=== PATIENT | male | born 1960 | race Caucasian/White ===

== ENCOUNTER 2018-04-09 13:21 | Emergency (ER) | payer SELFPAY ==
[2018-04-09] MEDS ORDERED: MORPHINE 4 MG/ML SYR ONE (14:23)
[2018-04-09] MEDS ORDERED: ONDANSETRON 4 MG/2 ML VIAL ONE (14:29)
--- NOTE | 2018-04-09 14:47 | RAD REPORT ---
EXAM DESCRIPTION: CT - Stone Protocol - 04/09/2018 2:34 pm CLINICAL HISTORY: Flank pain. FLANK PAIN COMPARISON: CTSTONE PROTOCOL dated 05/24/2012 TECHNIQUE: Axial images were obtained without oral or IV contrast. Lack of contrast limits solid org an and vascular assessment. The [id number] spans the entirety of the system partially obscuring uppermost abdomen and lung bases. Coronal reformatted images were obtained and reviewed. All CT scans are performed using dose optimization technique as appropriate and may include automated exposure control or mA/KV adjustment according to patient size. FINDINGS: The lower lung gant are clear. Imaged portions of the liver and spleen show no suspicious findings on non-contrast imaging. The panc reas and adrenal glands are normal. No pathologic lymphadenopathy in the abdomen or pelvis. Gallstone s noted. Several left renal calculi are present, largest measuring 5 mm in the inferior left kidney. No hydron ephrosis. 24 mm low-density lesion mid-pole cortex left kidney nonspecific but probably a cyst. Small Hutch diverticulum is noted at the level of the left UVJ. No bowel obstruction, free air, free fluid or abscess. Normal appendix noted. Moderate L5-S1 spondylosis. IMPRESSION: Left nephrolithiasis without hydronephrosis. Cholelithiasis.
[2018-04-09 14:51] LABS: Absolute Lymphocytes (CBC) 2.1 K/uL (0.7-4.9); Absolute Monocytes 0.9 K/uL (0.1-1.3); Absolute Neutrophil 6.5 K/uL (1.8-8.0); Basophils % 1.2 % (0-1.3); Eosinophils % 1.3 % (0-4.4); Hematocrit 49.4 % (39.6-49.0); Lymphocytes % 21.5 % (15.3-44.8); MCH 27.3 pg (27.0-35.0); MCV 82.6 fL (80-100); MPV 8.7 fL (7.6-11.3); Monocytes % 9.3 % (3.3-12.3); RBC Red Blood Cell Count 5.98 M/uL (4.33-5.43)
[2018-04-09 15:01] LABS: Bicarbonate 24 mEq/L (21-31); Glucose Level 144 mg/dL (65-120); Lipase 29 U/L (22-51); Potassium 3.7 mEq/L (3.6-5.0); Sodium Level 136 mEq/L (135-145)
[2018-04-09 15:03] LABS: Urine Blood TRACE (NEG); Urine Glucose 1+ (NEG); Urine Protein 3+ (NEG); Urine Specific Gravity >1.030 (1.005-1.030); Urine pH 5.5 (5.0-7.0)
[2018-04-09 15:07] LABS: ALT/SGPT 12 IU/L (10-60); AST/SGOT 21 IU/L (10-42); Albumin 4.4 g/dL (3.2-5.5); Alkaline Phosphatase 62 IU/L (42-121); Amylase Level 32 U/L (28-100); BUN Blood Urea Nitrogen 12 mg/dL (6-20); Bilirubin Direct 0.4 mg/dL (0-0.2); Bilirubin Total 2.3 mg/dL (0.3-1.2)
[2018-04-09 15:22] LABS: Urine Bacteria <20 /HPF (NONE SEEN); Urine RBC <5 /HPF (NONE SEEN)
[2018-04-09 15:23] LABS: Urine Culture Reflex Order NOT NEEDED; Urine Mucus 2+ /HPF (NONE SEEN)
[2018-04-09] MEDS ORDERED: NA CHLORIDE 0.9% 1,000 ML ONE (16:14)
--- NOTE | 2018-04-09 16:46 | EDPHYS ---
Physician Documentation [facility] Name: Chicho Weldon Age: 57 yrs Sex: Male : 1960 Arrival Date: 04/09/2018 Time: 13:25 Bed 18 Private MD: None, None ED Physician Hammad Ramires HPI: 04/09 15:00 This 57 yrs old Male presents to ER via Ambulatory with complaints of Right pm1 Flank Pain. 15:00 The patient complains of pain in the right mid back. The pain does not radiate. Onset: pm1 The symptoms/episode began/occurred yesterday, at 17:00. Modifying factors: The symptoms are alleviated by nothing. the symptoms are aggravated by movement. Associated signs and symptoms: Pertinent positives: nausea, Pertinent negatives: diarrhea, dysuria, fever, vomiting, Abdominal pain. Severity of pain: in the emergency department the pain is actually worse. 15:00 The patient has not experienced similar symptoms in the past. The patient has not pm1 recently seen a physician, and does not have an established primary care provider. Historical: - Allergies: 13:44 Iodine; rk2 13:44 SEAFOOD; rk2 - PMHx: 13:44 Hypertension; Myocardial infarction; CABG; Colitis; rk2 - Immunization history:: Pneumococcal vaccine is up to date, Flu vaccine is up to date. - Social history:: Smoking status: Patient/guardian denies using tobacco, never smoked. - Ebola Screening: : Patient negative for fever greater than or equal to 101.5 degrees Fahrenheit, and additional compatible Ebola Virus Disease symptoms. ROS: 15:00 Constitutional: Negative for fever, chills, and weight loss, Eyes: Negative for injury, pm1 pain, redness, and discharge, ENT: Negative for injury, pain, and discharge, Neck: Negative for injury, pain, and swelling, Cardiovascular: Negative for chest pain, palpitations, and edema, Respiratory: Negative for shortness of breath, cough, wheezing, and pleuritic chest pain. 15:00 : Negative for injury, bleeding, discharge, and swelling, MS/Extremity: Negative for pm1 injury and deformity, Skin: Negative for injury, rash, and discoloration, Neuro: Negative for headache, weakness, numbness, tingling, and seizure. 15:00 Abdomen/GI: Positive for nausea, Negative for abdominal pain, vomiting, diarrhea, constipation. 15:00 Back: Positive for flank pain, on the right. Exam: 15:00 Constitutional: This is a well developed, well nourished patient who is awake, alert, pm1 and in no acute distress. Head/Face: Normocephalic, atraumatic. Eyes: Pupils equal round and reactive to light, extra-ocular motions intact. Lids and lashes normal. Conjunctiva and sclera are non-icteric and not injected. Cornea within normal limits. Periorbital areas with no swelling, redness, or edema. ENT: Nares patent. No nasal discharge, no septal abnormalities noted. Tympanic membranes are normal and external auditory canals are clear. Oropharynx with no redness, swelling, or masses, exudates, or evidence of obstruction, uvula midline. Mucous membranes moist. Neck: Trachea midline, no thyromegaly or masses palpated, and no cervical lymphadenopathy. Supple, full range of motion without nuchal rigidity, or vertebral point tenderness. No Meningismus. Chest/axilla: Normal chest wall appearance and motion. Nontender with no deformity. No lesions are appreciated. Cardiovascular: Regular rate and rhythm with a normal S1 and S2. No gallops, murmurs, or rubs. No pulse deficits. Respiratory: Lungs have equal breath sounds bilaterally, clear to auscultation and percussion. No rales, rhonchi or wheezes noted. No increased work of breathing, no retractions or nasal flaring. Abdomen/GI: Soft, non-tender, with normal bowel sounds. No distension or tympany. No guarding or rebound. No evidence of tenderness throughout. 15:00 Skin: Warm, dry with normal turgor. Normal color with no rashes, no lesions, and no evidence of cellulitis. MS/ Extremity: Pulses equal, no cyanosis. Neurovascular intact. Full, normal range of motion. 15:00 Back: ROM is normal, normal spinal alignment noted, CVA tenderness, that is mild, is noted on the right, vertebral tenderness, is not appreciated. 15:00 Neuro: Orientation: is normal, Motor: moves all fours, Sensation: is normal, no obvious gross deficits. Vital Signs: 13:44 BP 187 / 134; Pulse 88; Resp 19; Temp 98.1; Pulse Ox 98% on R/A; Weight 127.01 kg; rk2 15:28 BP 153 / 100; Pulse 78; Resp 16; Pulse Ox 95% on R/A; kr2 16:39 BP 159 / 114; Pulse 73; Resp 17; Pulse Ox 98% on R/A; kr2 17:05 BP 154 / 98; Pulse 75; Resp 16; Pulse Ox 100% on R/A; kr2 MDM: 13:57 Patient medically screened. pm1 15:59 Data reviewed: vital signs. Data interpreted: Pulse oximetry: on room air is 95 %. pm1 Interpretation: normal. Counseling: I had a detailed discussion with the patient and/or guardian regarding: the historical points, exam findings, and any diagnostic results supporting the discharge/admit diagnosis, lab results, radiology results, the need for outpatient follow up, a general surgeon, to return to the emergency department if symptoms worsen or persist or if there are any questions or concerns that arise at home. 16:00 Special discussion: I have referred the patient to see his PCP for further evaluation pm1 of high blood pressure. 16:00 ED course: Patient does not take any medications and does not believe that he needs to pm1 take any medications for his medical history. 16:00 Special discussion: Based on the patient's Hx, exam, and Dx evaluation, there is no pm1 indication for emergent surgery or inpatient Tx. It is understood by the patient/guardian that if the Sx's persist or worsen they need to return immediately for re-evaluation. I discussed with the patient/guardian in detail that at this point there is no indication for admission to the hospital. It is understood, however, that if the symptoms persist or worsen the patient needs to return immediately for re-evaluation. 04/09 14:05 Order name: Amylase, Serum; Complete Time: 15:31 pm04/09 14:05 Order name: Basic Metabolic Panel; Complete Time: 15:31 pm04/09 14:05 Order name: CBC with Diff; Complete Time: 14:54 pm04/09 14:05 Order name: Creatinine for Radiology; Complete Time: 15:03 pm04/09 14:05 Order name: Hepatic Function; Complete Time: 15:31 pm04/09 14:05 Order name: Lipase; Complete Time: 15:31 pm04/09 14:05 Order name: Urine Microscopic Only; Complete Time: 15:31 pm1 04/09 14:05 Order name: IV Saline Lock; Complete Time: 14:33 pm1 04/09 14:05 Order name: Labs collected and sent; Complete Time: 14:33 pm1 04/09 14:05 Order name: CT Stone Protocol; Complete Time: 14:48 pm1 04/09 14:42 Order name: Urine Dipstick--Ancillary (enter results); Complete Time: 15:03 em1 04/09 14:05 Order name: Urine Dipstick-Ancillary (obtain specimen); Complete Time: 14:33 pm1 Administered Medications: 14:33 Drug: morphine 4 mg Route: IVP; Site: left hand; kr2 15:21 Follow up: Response: No adverse reaction; Pain is decreased kr2 14:33 Drug: Zofran 4 mg Route: IVP; Site: left hand; kr2 15:21 Follow up: Response: No adverse reaction kr2 16:19 Drug: NS 0.9% 1000 ml Route: IV; Rate: 1000 ml; Site: left hand; kr2 17:05 Follow up: Response: No adverse reaction; IV Status: Completed infusion kr2 Disposition: 04/10 13:07 Co-signature as Attending Physician, Hammad Ramires MD. Disposition: 04/09/18 16:46 Discharged to Home. Impression: Cholelithiasis. - Condition is Stable. - Discharge Instructions: Cholelithiasis. - Prescriptions for Bentyl 20 mg Oral Tablet - take 1 tablet by ORAL route every 6 hours As needed; 20 tablet. Tylenol- Codeine #3 300-30 mg Oral Tablet - take 2 tablets by ORAL route every 6 hours As needed; 20 tablet. Zofran 4 mg Oral Tablet - take 1 tablet by ORAL route every 12 hours As needed; 20 tablet. - Medication Reconciliation Form, Thank You Letter, Prescription Opioid Use form. - Follow up: Emergency Department; When: As needed; Reason: Worsening of condition. Follow up: Francisco Valles; When: 2 - 3 days; Reason: Recheck today's complaints, Continuance of care, Re-evaluation by your physician. - Problem is new. - Symptoms have improved. Signatures: Dispatcher [employer] EDMS Samuel Oliveira, WEB DEVELOPMENT INSTRUCTOR WEB DEVELOPMENT INSTRUCTOR pm1 Hammad Ramires MD MD Carlie Bustillos RN RN kr2 Tanya Peacock RN RN rk2 Corrections: (The following items were deleted from the chart) 04/09 17:06 16:46 04/09/2018 16:46 Discharged to Home. Impression: Cholelithiasis. Condition is kr2 Stable. Forms are Medication Reconciliation Form, Thank You Letter, Antibiotic Education, Prescription Opioid Use. Follow up: Emergency Department; When: As needed; Reason: Worsening of condition. Follow up: Francisco Valles; When: 2 - 3 days; Reason: Recheck today's complaints, Continuance of care, Re-evaluation by your physician. Problem is new. Symptoms have improved. pm1 19:36 15:00 Severity of pain: in the emergency department the pain pm1 pm1
--- NOTE | 2018-04-09 16:46 | ER ---
Nurse's Notes [facility] Name: Chicho Weldon Age: 57 yrs Sex: Male : 1960 Arrival Date: 04/09/2018 Time: 13:25 Bed 18 Private MD: None, None Diagnosis: Cholelithiasis Presentation: 04/09 13:41 Presenting complaint: Patient states: arrived by pv. c/o right side pain that radiates rk2 into back. Onset yesterday. Mild nausea. No pain or difficulty urinating. Hx of kidney stones; however, pt. states that the pain is different. Transition of care: patient was not received from another setting of care. Onset of symptoms was April 09, 2018. Risk Assessment: Do you want to hurt yourself or someone else? Patient reports no desire to harm self or others. Initial Sepsis Screen: Does the patient meet any 2 criteria? No. Patient's initial sepsis screen is negative. Does the patient have a suspected source of infection? No. Patient's initial sepsis screen is negative. Care prior to arrival: None. 13:41 Method Of Arrival: Ambulatory rk2 13:41 Acuity: AMANDA 3 rk2 Historical: - Allergies: 13:44 Iodine; rk2 13:44 SEAFOOD; rk2 - PMHx: 13:44 Hypertension; Myocardial infarction; CABG; Colitis; rk2 - Immunization history:: Pneumococcal vaccine is up to date, Flu vaccine is up to date. - Social history:: Smoking status: Patient/guardian denies using tobacco, never smoked. - Ebola Screening: : Patient negative for fever greater than or equal to 101.5 degrees Fahrenheit, and additional compatible Ebola Virus Disease symptoms. Screenin:05 Abuse screen: Denies threats or abuse. Denies injuries from another. Nutritional kr2 screening: No deficits noted. Tuberculosis screening: No symptoms or risk factors identified. Fall Risk None identified. Assessment: 14:04 General: Appears in no apparent distress. uncomfortable, well groomed, well developed, kr2 well nourished, Behavior is calm, cooperative, appropriate for age. Pain: Complains of pain in anterior aspect of right lateral abdomen and posterior aspect of right lateral abdomen Pain does not radiate. Pain currently is 8 out of 10 on a pain scale. Quality of pain is described as sharp, stabbing, Is continuous, Alleviated by rest, sitting up Aggravated by increased activity, deep breathing. Neuro: Level of Consciousness is awake, alert, obeys commands, Oriented to person, place, time, situation, Appropriate for age. Cardiovascular: Denies chest pain, Capillary refill < 3 seconds in bilateral fingers Patient's skin is warm and dry. Respiratory: Airway is patent Respiratory effort is even, unlabored, Respiratory pattern is regular, symmetrical. GI: Abdomen is round non-distended, Reports nausea. : Denies burning with urination, discharge, pain. EENT: Oral mucosa is moist. Derm: Skin is intact, is healthy with good turgor, Skin is pink, warm \T\ dry. Musculoskeletal: Circulation, motion, and sensation intact. 15:20 Reassessment: Patient appears in no apparent distress at this time. Patient and/or kr2 family updated on plan of care and expected duration. Pain level reassessed. Patient is alert, oriented x 3, equal unlabored respirations, skin warm/dry/pink. Patient states symptoms have improved. 16:38 Reassessment: Patient appears in no apparent distress at this time. Patient and/or kr2 family updated on plan of care and expected duration. Pain level reassessed. Patient is alert, oriented x 3, equal unlabored respirations, skin warm/dry/pink. Patient states symptoms have improved. 17:05 Reassessment: Patient appears in no apparent distress at this time. Patient and/or kr2 family updated on plan of care and expected duration. Pain level reassessed. Patient is alert, oriented x 3, equal unlabored respirations, skin warm/dry/pink. Patient states symptoms have improved. Vital Signs: 13:44 BP 187 / 134; Pulse 88; Resp 19; Temp 98.1; Pulse Ox 98% on R/A; Weight 127.01 kg; rk2 15:28 BP 153 / 100; Pulse 78; Resp 16; Pulse Ox 95% on R/A; kr2 16:39 BP 159 / 114; Pulse 73; Resp 17; Pulse Ox 98% on R/A; kr2 17:05 BP 154 / 98; Pulse 75; Resp 16; Pulse Ox 100% on R/A; kr2 ED Course: 13:25 Patient arrived in ED. sb2 13:25 None, None is Private Physician. sb2 13:43 Triage completed. rk2 13:56 Samuel Oliveira NP is PHCP. pm1 13:56 Hammad Ramires MD is Attending Physician. pm1 14:04 Carlie Bustillos, RN is Primary Nurse. kr2 14:25 Inserted saline lock: 22 gauge in left hand, using aseptic technique. Blood collected. kr2 14:33 CT completed. Patient moved to CT via wheelchair. Patient moved back from CT. cw1 14:33 CT Stone Protocol In Process Unspecified. EDMS 14:36 Urine collected: clean catch specimen, tea colored. mh5 15:22 Arm band placed on. kr2 15:22 Patient has correct armband on for positive identification. Pulse ox on. NIBP on. kr2 16:46 Francisco Valles MD is Referral Physician. pm1 17:06 No provider procedures requiring assistance completed. IV discontinued, intact, kr2 bleeding controlled, No redness/swelling at site. Pressure dressing applied. Administered Medications: 14:33 Drug: morphine 4 mg Route: IVP; Site: left hand; kr2 15:21 Follow up: Response: No adverse reaction; Pain is decreased kr2 14:33 Drug: Zofran 4 mg Route: IVP; Site: left hand; kr2 15:21 Follow up: Response: No adverse reaction kr2 16:19 Drug: NS 0.9% 1000 ml Route: IV; Rate: 1000 ml; Site: left hand; kr2 17:05 Follow up: Response: No adverse reaction; IV Status: Completed infusion kr2 Outcome: 16:46 Discharge ordered by . pm1 17:06 Discharged to home ambulatory, with friend. kr2 17:06 Condition: good 17:06 Discharge instructions given to patient, Instructed on discharge instructions, follow up and referral plans. medication usage, Demonstrated understanding of instructions, follow-up care, medications, Prescriptions given X 3. 17:06 Patient left the ED. kr2 Signatures: Dispatcher [employer] Leatha Celestin cw1 Samuel Oliveira, DAISY UTILITY MAINTENANCE WORKER pm1 Rossy Guan 5 Carlie Bustillos, RN RN kr2 Tanya Peacock RN RN rk2 Khushi Barros sb2
[2018-04-09 17:16] VITALS: TEMP 98.1
[2018-04-09 17:20] VITALS: BP 154/98; O2SAT 100
== END 2018-04-09 17:06 | disposition home or self-care (01) ==
LOC: ER 13:21
DX: K80.20 Calculus of gallbladder without cholecystitis without obstruction (principal); I10 Essential (primary) hypertension; Z95.1 Presence of aortocoronary bypass graft; Z91.013 Allergy to seafood; Z91.048 Other nonmedicinal substance allergy status
CPT/HCPCS: 36415; 74176; 76377; 80048; 80076; 81003; 81015; 82150; 83690; 85025; 96361; 96374; 96375; 99284; J2405; J7030

== ENCOUNTER 2018-06-30 08:55 | Emergency (ER) | payer SELFPAY ==
[2018-06-30 09:20] LABS: Absolute Lymphocytes (CBC) 1.1 K/uL (0.7-4.9); Absolute Monocytes 0.6 K/uL (0.1-1.3); Absolute Neutrophil 7.1 K/uL (1.8-8.0); Basophils % 0.6 % (0-1.3); Eosinophils % 0.5 % (0-4.4); Hematocrit 49.7 % (39.6-49.0); Lymphocytes % 11.9 % (15.3-44.8); MCH 27.8 pg (27.0-35.0); MCV 84.2 fL (80-100); MPV 8.5 fL (7.6-11.3); Monocytes % 6.3 % (3.3-12.3)
[2018-06-30] MEDS ORDERED: MORPHINE 4 MG/ML SYR ONE ×2 (09:26→10:40)
[2018-06-30] MEDS ORDERED: ONDANSETRON 4 MG/2 ML VIAL ONE ×3 (09:26→13:56)
[2018-06-30 09:29] LABS: Protime INR 1.4
[2018-06-30 09:51] LABS: Albumin 3.9 g/dL (3.4-5.0); Bilirubin Direct 0.5 mg/dL (0-0.2); Bilirubin Total 1.5 mg/dL (0.2-1.0); CKMB Creatine Kinase MB 6.3 ng/mL (0.3-3.6); Magnesium 1.9 mg/dL (1.8-2.4); Protein, Total 8.3 g/dL (6.4-8.2); Troponin (Emerg Dept Use Only) 0.03 ng/mL (0.0-0.045)
--- NOTE | 2018-06-30 10:08 | RAD REPORT ---
EXAM DESCRIPTION: Kar Single View06/30/2018 9:22 am CLINICAL HISTORY: Chest pain COMPARISON: April 2017 FINDINGS: The right base is hazy. Left lung appears clear. The heart is mildly to moderately enlarge d. Postsurgical changes involve the chest. The right base is hazy IMPRESSION: The right base is hazy which may indicate a small pleural effusion or atelectasis
--- NOTE | 2018-06-30 11:01 | RAD REPORT ---
EXAM DESCRIPTION: US - Abdomen Exam Limited - 06/30/2018 10:18 am CLINICAL HISTORY: Epigastric pain COMPARISON: CT study April 09 FINDINGS: Multiple small less than 3 mm gallstones are present layering along the dependent portion of the gallbladder. No large gallstone present. No significant sludge identifiable. There is no wall thickening or pericholecystic fluid. No common duct stone or biliary tree dilatation identified. IMPRESSION: Multi stone cholelithiasis with numerous less than 3 mm gallstones layering along the de pendent wall of the gallbladder. No other gallbladder abnormality. No duct stone or biliary tree dilatation identifiable.
[2018-06-30 11:30] LABS: Urine Blood 1+ (NEG); Urine Glucose 1+ (NEG); Urine Protein 3+ (NEG)
[2018-06-30 11:30] LABS: Urine Bacteria NONE SEEN /HPF (NONE SEEN); Urine Culture Reflex Order NOT NEEDED; Urine RBC NONE SEEN /HPF (NONE SEEN)
[2018-06-30 11:31] LABS: Calcium Oxalate Crystals- Ur PRESENT (NONE SEEN)
--- NOTE | 2018-06-30 11:49 | EKG ---
Test Date: 2018-06-30 Test Time: 09:09:42 Direct Support Staff Member: SISSY MEASUREMENT RESULTS: Intervals: Rate: 95 VA: 204 QRSD: 94 QT: 398 QTc: 500 Mikado: P: 54 VA: 204 QRS: 104 T: 101 INTERPRETIVE STATEMENTS: Normal sinus rhythm Possible Left atrial enlargement Rightward axis Prolonged QT Abnormal ECG Compared to ECG 05/16/2017 06:38:02 Right-axis deviation now present T-wave abnormality no longer present Possible ischemia no longer present Electronically Signed On 06-30-18 11:48:01 CDT by Balwinder Ledesma
[2018-06-30] MEDS ORDERED: HYDROMORPHONE HCL 0.5 MG/0.5 ML INJ ONE ×2 (11:53→13:56)
--- NOTE | 2018-06-30 12:58 | ER ---
Nurse's Notes [facility] Name: Chicho Weldon Age: 58 yrs Sex: Male : 1960 Arrival Date: 06/30/2018 Time: 08:58 Bed 5 Private MD: Diagnosis: Biliary Colic;Other chest pain Presentation: 06/30 09:14 Presenting complaint: Patient states: chest pain/gallbladder issues for the past few ch weeks. Last night the pain got worse, nausea and vomiting, pain is going into the chest now. Transition of care: patient was not received from another setting of care. Onset of symptoms was June 29, 2018 at 19:00. Risk Assessment: Do you want to hurt yourself or someone else? Patient reports no desire to harm self or others. Initial Sepsis Screen: Does the patient meet any 2 criteria? No. Patient's initial sepsis screen is negative. Does the patient have a suspected source of infection? No. Patient's initial sepsis screen is negative. Care prior to arrival: None. 09:14 Method Of Arrival: Ambulatory 09:14 Acuity: AMANDA 3 Triage Assessment: :18 General: Appears in no apparent distress. uncomfortable, Behavior is cooperative, ch appropriate for age. Pain: Complains of pain in chest and abdomen. Historical: - Allergies: :18 Iodine; ch 09:18 SEAFOOD; ch - Home Meds: :18 None [Active]; ch - PMHx: :18 CABG; Colitis; gastric cardiac distress; Hypertension; Myocardial infarction; prostate ch hypertrophy; diabetes- resolved; vasovagal; syncope; pleurasy; kidney stones; - PSHx: :18 triple bypass; Tonsillectomy; bladder polyp removed; ch - Immunization history:: Adult Immunizations up to date. - Social history:: Smoking status: Patient/guardian denies using tobacco. - Ebola Screening: : Patient negative for fever greater than or equal to 101.5 degrees Fahrenheit, and additional compatible Ebola Virus Disease symptoms Patient denies exposure to infectious person Patient denies travel to an Ebola-affected area in the 21 days before illness onset No symptoms or risks identified at this time. Screenin:18 Abuse screen: Denies threats or abuse. Denies injuries from another. Nutritional ch screening: No deficits noted. Tuberculosis screening: No symptoms or risk factors identified. Fall Risk None identified. Assessment: 10:24 Reassessment: Patient appears in no apparent distress at this time. Patient and/or ch family updated on plan of care and expected duration. Pain level reassessed. Patient is alert, oriented x 3, equal unlabored respirations, skin warm/dry/pink. General: Appears in no apparent distress. comfortable, Behavior is calm, cooperative, appropriate for age. Pain: Pain radiates to left supraclavicular area, left clavicle and anterior aspect of left upper chest Pain began suddenly. Neuro: No deficits noted. Cardiovascular: Heart tones S1 S2 present Capillary refill < 3 seconds in bilateral fingers toes Clubbing of nail beds is present Pulses are all present. Edema is 4+ to left midcalf, left ankle, right midcalf and right ankle. 11:30 Reassessment: Patient appears in no apparent distress at this time. Patient and/or ch family updated on plan of care and expected duration. Pain level reassessed. Patient is alert, oriented x 3, equal unlabored respirations, skin warm/dry/pink. pt c/o increase in chest pain, repeat ekg ordered. panfilo notified. pt medicated per orders. 12:15 Reassessment: Patient appears in no apparent distress at this time. No changes from previously documented assessment. Patient and/or family updated on plan of care and expected duration. Pain level reassessed. Patient is alert, oriented x 3, equal unlabored respirations, skin warm/dry/pink. pt c/o increase in pain, medicated per orders. awaiting pt bp to improve. panfilo states he want to get the pain under control and see if that will bring down the pt bp. 13:23 Reassessment: Patient appears in no apparent distress at this time. Patient and/or ch family updated on plan of care and expected duration. Pain level reassessed. Patient is alert, oriented x 3, equal unlabored respirations, skin warm/dry/pink. report given To [facility] kalina Overton verb understanding of waiting transport now. Vital Signs: 09:18 BP 183 / 98; Pulse 106; Resp 20; Temp 98.3; Pulse Ox 99% on R/A; Weight 131.54 kg; Height 5 ft. 9 in. (175.26 cm); Pain 6/10; 10:24 Pulse 88; Resp 26; Pulse Ox 99% on R/A; Pain 6/10; ch 10:27 BP 185 / 126; ch 11:20 BP 193 / 136; Pulse 98; Resp 18; Pulse Ox 94% on R/A; Pain 4/10; ch 12:18 BP 189 / 110; Pulse 106; Pulse Ox 96% on R/A; ch 13:23 BP 193 / 137; Pulse 88; Resp 15; Temp 98.9; Pulse Ox 99% on R/A; Pain 6/10; ch 09:18 Body Mass Index 42.83 (131.54 kg, 175.26 cm) ED Course: 08:58 Patient arrived in ED. as 09:10 Inserted saline lock: 20 gauge in right antecubital area, using aseptic technique. Blood collected. 09:10 No provider procedures requiring assistance completed. Patient maintains SpO2 saturation greater than 95% on room air. 09:13 EKG done, by technical developer. reviewed by Michael Bowie MD. 3 09:14 Nerissa Walter, SAIGE is Primary Nurse. 09:15 Triage completed. 09:16 Panfilo Cole PA is PHCP. [facility] 09:16 Michael Bowie MD is Attending Physician. [facility] 09:18 Arm band placed on left wrist. Patient placed in an exam room, on a stretcher, on combiner, on pulse oximetry. 09:20 XRAY Chest (1 view) In Process Unspecified. EDMS 09:32 Patient has correct armband on for positive identification. Placed in gown. Bed in low position. Call light in reach. Side rails up X2. check totaler on. Pulse ox on. NIBP on. 09:55 Patient taken to ultrasound. via wheelchair. aa4 10:17 Ultrasound completed. Patient moved back from ultrasound. aa4 10:18 US Abdomen Limited In Process Unspecified. EDMS 11:11 Urine collected: clean catch specimen, cloudy, khris colored. jb1 11:38 EKG done, by technical developer. reviewed by Panfilo CONWAY. sm3 12:18 No apparent distress. Resting quietly. Administered Medications: 09:20 Drug: morphine 4 mg Route: IVP; Site: right antecubital; 10:26 Follow up: Response: No adverse reaction; Marked relief of symptoms ch 09:20 Drug: Zofran 4 mg Route: IVP; Site: right antecubital; ch 10:25 Follow up: Response: No adverse reaction; Marked relief of symptoms ch 11:05 Drug: morphine 4 mg Route: IVP; Site: right antecubital; ch 12:19 Follow up: Response: No adverse reaction; No change in condition ch 11:06 Drug: Zofran 4 mg Route: IVP; Site: right antecubital; ch 12:20 Follow up: Response: No adverse reaction; Marked relief of symptoms ch 11:48 Drug: Dilaudid 0.5 mg Route: IVP; Site: right antecubital; ch 12:21 Follow up: Response: No adverse reaction ch 13:58 Drug: Zofran 4 mg Route: IVP; Site: right antecubital; ch 13:58 Drug: Dilaudid 0.5 mg Route: IVP; Site: right antecubital; Outcome: 12:58 ER care complete, transfer ordered by MD. dove 13:58 Patient left the ED. ch Signatures: Dispatcher [employer] Keith Irizarry jb1 Nerissa Walter, SAIGE RN Panfilo Zaragoza PA PA jmm Martinez, Amelia as Frazier, Amanda aa4 Galina Evans3
--- NOTE | 2018-06-30 12:58 | EDPHYS ---
Physician Documentation [facility] Name: Chicho Weldon Age: 58 yrs Sex: Male : 1960 Arrival Date: 06/30/2018 Time: 08:58 Bed 5 Private MD: ED Physician Michael Bowie HPI: 06/30 09:30 This 58 yrs old Male presents to ER via Ambulatory with complaints of Chest jmm Pain, Nausea/Vomiting. 09:30 The patient presents with abdominal pain in the epigastric area. Onset: The jmm symptoms/episode began/occurred gradually, 2 day(s) ago. The symptoms radiate to chest. Associated signs and symptoms: Pertinent positives: chest pain. This is a 58 year old male with a history of CAD that presents to the ED with 2 days of episgastric pain. patient states he awoke at 0200 today with left sided chest pain which he states was similar to pain with previous ME. Patient also complains of multiple episodes of vomiting. Denies fever, . Historical: - Allergies: :18 Iodine; ch 09:18 SEAFOOD; ch - Home Meds: :18 None [Active]; ch - PMHx: :18 CABG; Colitis; gastric cardiac distress; Hypertension; Myocardial infarction; prostate ch hypertrophy; diabetes- resolved; vasovagal; syncope; pleurasy; kidney stones; - PSHx: 09:18 triple bypass; Tonsillectomy; bladder polyp removed; ch - Immunization history:: Adult Immunizations up to date. - Social history:: Smoking status: Patient/guardian denies using tobacco. - Ebola Screening: : Patient negative for fever greater than or equal to 101.5 degrees Fahrenheit, and additional compatible Ebola Virus Disease symptoms Patient denies exposure to infectious person Patient denies travel to an Ebola-affected area in the 21 days before illness onset No symptoms or risks identified at this time. ROS: 09:30 Constitutional: Negative for fever, chills, and weight loss. jmm 09:30 Back: Negative for injury and pain, MS/Extremity: Negative for injury and deformity, Skin: Negative for injury, rash, and discoloration, Neuro: Negative for headache, weakness, numbness, tingling, and seizure. 09:30 Cardiovascular: Positive for chest pain. 09:30 Abdomen/GI: Positive for abdominal pain, nausea and vomiting. 09:30 All other systems are negative. Exam: 09:30 Head/Face: atraumatic. Neck: Trachea midline, Supple Chest/axilla: Normal chest wall [facility] appearance and motion. 09:30 Constitutional: The patient appears alert, awake, uncomfortable. 09:30 Cardiovascular: Rate: normal, Rhythm: regular, Pulses: no pulse deficits are appreciated. 09:30 Respiratory: the patient does not display signs of respiratory distress, Respirations: normal, Breath sounds: are clear throughout. 09:30 Abdomen/GI: Inspection: abdomen appears normal, Bowel sounds: normal, Palpation: soft, moderate abdominal tenderness, in the right upper quadrant. 09:30 Back: ROM is normal, CVA tenderness, is absent. 09:30 Musculoskeletal/extremity: ROM: intact in all extremities. 09:30 Skin: Appearance: Color: normal in color. 09:30 Neuro: Orientation: is normal, Mentation: is normal, Memory: is normal. 09:30 Psych: Behavior/mood is pleasant, cooperative. Vital Signs: 09:18 BP 183 / 98; Pulse 106; Resp 20; Temp 98.3; Pulse Ox 99% on R/A; Weight 131.54 kg; ch Height 5 ft. 9 in. (175.26 cm); Pain 6/10; 10:24 Pulse 88; Resp 26; Pulse Ox 99% on R/A; Pain 6/10; ch 10:27 BP 185 / 126; ch 11:20 BP 193 / 136; Pulse 98; Resp 18; Pulse Ox 94% on R/A; Pain 4/10; ch 12:18 BP 189 / 110; Pulse 106; Pulse Ox 96% on R/A; ch 13:23 BP 193 / 137; Pulse 88; Resp 15; Temp 98.9; Pulse Ox 99% on R/A; Pain 6/10; ch 09:18 Body Mass Index 42.83 (131.54 kg, 175.26 cm) MDM: 09:27 Patient medically screened. [facility] 12:54 Data reviewed: vital signs, nurses notes, lab test result(s), radiologic studies, CT [facility] scan. Counseling: I had a detailed discussion with the patient and/or guardian regarding: the historical points, exam findings, and any diagnostic results supporting the discharge/admit diagnosis, lab results, radiology results, the need to transfer to another facility. Response to treatment: the patient's symptoms have mildly improved after treatment. ED course: I discussed the patient with [facility] whom accepted admission. . 06/30 09:04 Order name: Basic Metabolic Panel; Complete Time: 10:13 06/30 09:04 Order name: CBC with Diff; Complete Time: 10:13 06/30 09:04 Order name: Ckmb; Complete Time: 10: 06/30 09:04 Order name: CPK; Complete Time: 10: 06/30 09:04 Order name: LFT's; Complete Time: 10: 06/30 09:04 Order name: Magnesium; Complete Time: 10: 06/30 09:04 Order name: NT PRO-BNP; Complete Time: 10: 06/30 09:04 Order name: PT-INR; Complete Time: 10: 06/30 09:04 Order name: Ptt, Activated; Complete Time: 10: 06/30 09:04 Order name: Troponin (emerg Dept Use Only); Complete Time: 10: 06/30 09:04 Order name: XRAY Chest (1 view); Complete Time: 10: 06/30 09:51 Order name: Lipase; Complete Time: 10:20 [facility] 06/30 11:01 Order name: Urine Microscopic Only; Complete Time: 11:35 [facility] 06/30 11:05 Order name: Urine Dipstick--Ancillary (enter results); Complete Time: 11:35 06/30 09:04 Order name: EKG; Complete Time: 09:05 06/30 09:04 Order name: Cardiac monitoring; Complete Time: 09:56 06/30 09:04 Order name: EKG - Nurse/Tech; Complete Time: 09:56 06/30 09:04 Order name: IV Saline Lock; Complete Time: 09:56 06/30 09:04 Order name: Labs collected and sent; Complete Time: 09:56 06/30 09:04 Order name: O2 Per Protocol; Complete Time: 09:56 06/30 09:04 Order name: O2 Sat Monitoring; Complete Time: 09:56 06/30 09:04 Order name: Urine Dipstick-Ancillary (obtain specimen); Complete Time: 11:11 iw 06/30 09:51 Order name: US Abdomen Limited; Complete Time: 11:02 petty Administered Medications: 09:20 Drug: morphine 4 mg Route: IVP; Site: right antecubital; ch 10:26 Follow up: Response: No adverse reaction; Marked relief of symptoms ch 09:20 Drug: Zofran 4 mg Route: IVP; Site: right antecubital; ch 10:25 Follow up: Response: No adverse reaction; Marked relief of symptoms ch 11:05 Drug: morphine 4 mg Route: IVP; Site: right antecubital; ch 12:19 Follow up: Response: No adverse reaction; No change in condition ch 11:06 Drug: Zofran 4 mg Route: IVP; Site: right antecubital; ch 12:20 Follow up: Response: No adverse reaction; Marked relief of symptoms ch 11:48 Drug: Dilaudid 0.5 mg Route: IVP; Site: right antecubital; ch 12:21 Follow up: Response: No adverse reaction ch 13:58 Drug: Zofran 4 mg Route: IVP; Site: right antecubital; ch 13:58 Drug: Dilaudid 0.5 mg Route: IVP; Site: right antecubital; ch Disposition: 06/30/18 12:58 Transfer ordered to [facility]. Diagnosis are Biliary Colic, Other chest pain. - Reason for transfer: Higher level of care. - Accepting physician is [facility]. - Condition is Stable. - Problem is new. - Symptoms are unchanged. Signatures: Dispatcher [employer] Nerissa Mullins RN RN Nestor Zaragoza PA PA jmm Williams, Irene, RN RN Corrections: (The following items were deleted from the chart) 13:58 12:58 06/30/2018 12:58 Transfer ordered to [facility]. Diagnosis is Biliary Colic; Other chest pain. Reason for transfer: Higher level of care. Accepting physician is [facility]. Condition is Stable. Problem is new. Symptoms are unchanged. petty
[2018-06-30 14:17] VITALS: BP 193/137; TEMP 98.9; O2SAT 99
--- NOTE | 2018-07-01 09:50 | EKG ---
Test Date: 2018-06-30 Test Time: 11:33:34 Sand Cutter Operator: MARIA TERESA MEASUREMENT RESULTS: Intervals: Rate: 83 NM: 200 QRSD: 98 QT: 430 QTc: 505 [place]: P: 68 NM: 200 QRS: 117 T: 122 INTERPRETIVE STATEMENTS: Normal sinus rhythm Right axis deviation Prolonged QT Abnormal ECG Compared to ECG 06/30/2018 09:09:42 No significant changes Electronically Signed On 07-01-18 02:14:47 CDT by Balwinder Ledesma
== END 2018-06-30 13:58 | disposition short-term general hospital (02) ==
LOC: ER 08:55
DX: K80.50 Calculus of bile duct without cholangitis or cholecystitis without obstruction (principal); I10 Essential (primary) hypertension; I25.2 Old myocardial infarction; Z95.1 Presence of aortocoronary bypass graft; Z91.013 Allergy to seafood; Z91.048 Other nonmedicinal substance allergy status
CPT/HCPCS: 36415; 71045; 76705; 80048; 80076; 81003; 81015; 82550; 82553; 83690; 83735; 83880; 84484; 85025; 85610; 85730; 93005; 96374; 96375; 99285; J1170; J2405

== ENCOUNTER 2018-08-12 13:56 | Inpatient (IN) | payer SELFPAY ==
--- OUTSIDE RECORDS SUMMARY | 2018-08-12 13:59 | XMS REPORT | Clinical Summary ---
:1960 Author Organization [facility] Address [address] [place] [address] Phone Care Team Providers Name Role Phone Unavailable Primary Care Provider Unavailable Allergies Active Allergy Reactions Severity Noted Date Comments Shellfish Containing Products Anaphylaxis High 06/30/2018 Current Medications Prescription Sig. Disp. Refills Start Date End Date Status atorvastatin Take 1 tablet 30 tablet 2 07/24/2018 Active (LIPITOR) 40 MG (40 mg total) 9 tablet by mouth nightly. losartan (COZAAR) 25 Take 0.5 15 tablet 2 07/25/2018 Active MG tablet tablets (12.5 9 mg total) by mouth daily. metoprolol Take 1 tablet 60 tablet 2 07/24/2018 Active (LOPRESSOR) 25 MG (25 mg total) 9 tablet by mouth 2 (two) times daily. bumetanide (BUMEX) 1 Take 1 tablet 60 tablet 1 07/24/2018 Active MG tablet (1 mg total) 9 by mouth 2 (two) times daily. spironolactone Take 1 tablet 30 tablet 2 07/25/2018 Active (ALDACTONE) 50 MG (50 mg total) 9 tablet by mouth daily. esomeprazole Take 1 30 capsule 2 07/24/2018 Active (NEXIUM) 40 MG capsule (40 9 capsule mg total) by mouth 2 (two) times daily. pantoprazole Take 1 tablet 60 tablet 1 07/24/2018 Discontinued (PROTONIX) 40 MG (40 mg total) 8 tablet by mouth 2 (two) times daily. Active Problems Problem Noted Date Cardiogenic shock (HCC) 07/10/2018 Pancreatitis 07/08/2018 Acute blood loss anemia 07/07/2018 Hemorrhagic shock (HCC) 07/07/2018 Chest pain, unspecified type 07/06/2018 Accelerated hypertension 07/06/2018 Morbid obesity (HCC) 07/06/2018 Hyponatremia 07/06/2018 GI bleed requiring more than 4 units of blood in 24 hours, ICU, or surgery Hypokalemia 07/04/2018 Hypomagnesemia 07/04/2018 Prolonged QT syndrome 07/03/2018 Acute on chronic combined systolic and diastolic congestive heart failure 07/2018 (HCC) Cholelithiasis 07/03/2018 DEION (acute kidney injury) (HCC) 07/03/2018 CKD (chronic kidney disease) stage 2, GFR 60-89 ml/min 07/03/2018 S/P CABG x 3 06/30/2018 Diabetes mellitus type 2 in obese (HCC) 06/30/2018 Uncontrolled hypertension 06/30/2018 Chest pain 06/30/2018 Encounters Date Type Specialty Care Team Description 07/21/2018 Anesthesia Event Gastroenterology Melissa Ashford, GERRY 07/21/2018 Procedure Pass Gastroenterology 07/21/2018 Surgery Gastroenterology Vikram Santacruz MD ENDOSCOPY,SCLEROT HERAPY 07/17/2018 Anesthesia Event Gastroenterology Vicky Selby MD 07/17/2018 Procedure Pass Gastroenterology 07/17/2018 Surgery Gastroenterology Vikram Santacruz BALLOON Ahmad, MD SWEEPING 07/15/2018 Anesthesia Event Gastroenterology Willian Richard MD 07/15/2018 Procedure Pass Gastroenterology 07/15/2018 Surgery Gastroenterology Sammy Santiago UPPER ENDOSCOPY [facility] 07/10/2018 Anesthesia Event Gastroenterology Rehana Walker MD 07/10/2018 Procedure Pass Gastroenterology 07/10/2018 Surgery Gastroenterology Michael Howard MD ENDOSCOPY,SCLEROT HERAPY 07/09/2018 Anesthesia Event Gastroenterology Shelly Malave 07/09/2018 Procedure Pass Gastroenterology 07/09/2018 Surgery Gastroenterology Michael Howard MD 07/08/2018 Procedure Pass Gastroenterology 07/08/2018 Surgery Gastroenterology Michael Howard ENDOSCOPY MD Chirag 07/07/2018 Anesthesia Event Gastroenterology Hilario Chi CRNA 07/07/2018 Procedure Pass Gastroenterology 07/07/2018 Surgery Gastroenterology Susanne Nolan ERCP,BILIARY An Watts MD STENT 07/07/2018 Procedure Pass 07/06/2018 Anesthesia Event Gastroenterology Antonio Lima MD 07/06/2018 Procedure Pass Gastroenterology 07/06/2018 Surgery Gastroenterology Susanne Nolan ERCP,PAPILLOTOMY An Watts MD 06/30/2018 Hospital Cardiology Clarke Case Chest pain, - Encounter GLashonda, MD unspecified type 07/24/2018 Chelsea Moreno, (Primary MD Dx);Diabetes Daphne, Leonid mellitus type 2 MD Marlon in obese Karen Hussein ([facility]);S/P CABG x MD Binu 3;Uncontrolled Praveen, hypertension;Acut Nikoser e heart failure, MD Aram unspecified heart Katie, Jen failure type PLashonda, ([facility]);DEION (acute Tirukkovalluri, kidney injury) MD Maryjane ([facility]);Acute on Janiya, chronic combined Jeffery García MD systolic and Jeff You diastolic MD congestive heart failure ([facility]);Biliary calculus of other site without obstruction;GI bleed requiring more than 4 units of blood in 24 hours, ICU, or surgery;Other shock ([facility]) 06/30/2018 Orders Only General Internal Medicine after 08/11/2017 Social History Tobacco Use Types Packs/Day Years Used Date Former Smoker Cigars, Pipe Quit: 06/30/1995 Smokeless Tobacco: Never Used Alcohol Use Drinks/Week oz/Week Comments Yes 2 Glasses of wine 1.2 per month Sex Assigned at Date Recorded Not on file Last Filed Vital Signs Vital Sign Reading Time Taken Blood Pressure 113/60 07/24/2018 3:31 PM CDT Pulse 76 07/24/2018 3:31 PM CDT Temperature 36.8 C (98.2 F) 07/24/2018 3:31 PM CDT Respiratory Rate 18 07/24/2018 3:31 PM CDT Oxygen Saturation 100% 07/24/2018 3:31 PM CDT Inhaled Oxygen Concentration - - Weight 91.9 kg (202 lb 9.6 oz) 07/24/2018 4:47 AM CDT Height 167.6 cm (5' 6") 07/15/2018 3:38 AM CDT Body Mass Index 32.7 07/24/2018 4:47 AM CDT Plan of Treatment Not on file Implants Implanted Type Area Fraternity Adviser Device Expiration Date Model / Identifier Serial / Lot Stent Bili Advanix [id number] - [id number] Stents-Pe [place] 03/27/2020 3469 / Implanted: Qty: 1 on 07/06/2018 by Susanne Nolan MD ripheral SCI:PERIPHERAL / INTERV Stent Bili Duodenal [id number] - [id number] Stents-Pe [place] SCI:ENDO 12/19/2019 3432 / Implanted: Qty: 1 on 07/06/2018 by Susanne Nolan MD ripheral / Explanted Type Area Fraternity Adviser Device Expiration Date Model / Identifier Serial / Lot Wallflex Biliary Fully Covered Stent [id number] opentabs 2018 7034 / Implanted: Qty: 1 on 07/07/2018 by Susanne Nolan MD [id number] / Explanted: Qty: 1 on 07/17/2018 [id number] Procedures Procedure Name Priority Date/Time Associated Diagnosis Comments UPPER 07/21/2018 3:00 PM CDT Melena ENDOSCOPY,SCLEROTHERAPY Special Needs egd w/ anes ERCP,STENT REMOVAL 07/17/2018 2:00 PM CDT Gastrointestinal hemorrhage, unspecified gastrointestinal hemorrhage type Special Needs FRONT AND SIDE VIEWING SCOPE PROCEDURE W/ C-ARM 07/17/2018 2:00 PM CDT Gastrointestinal hemorrhage, unspecified gastrointestinal hemorrhage type Special Needs FRONT AND SIDE VIEWING SCOPE ERCP,BALLOON SWEEPING 07/17/2018 2:00 PM CDT Gastrointestinal hemorrhage, unspecified gastrointestinal hemorrhage type Special Needs FRONT AND SIDE VIEWING SCOPE UPPER ENDOSCOPY 07/15/2018 4:30 AM CDT Gastrointestinal hemorrhage, unspecified gastrointestinal hemorrhage type UPPER 07/10/2018 7:00 PM CDT Gastrointestinal hemorrhage, ENDOSCOPY,SCLEROTHERAPY unspecified gastrointestinal hemorrhage type Special Needs EGD W/ ANES UPPER ENDOSCOPY,SCLEROTHERAPY 07/09/2018 11:00 AM CDT Gastrointestinal hemorrhage, unspecified gastrointestinal hemorrhage type UPPER ENDOSCOPY 07/09/2018 11:00 AM CDT Gastrointestinal hemorrhage, unspecified gastrointestinal hemorrhage type UPPER ENDOSCOPY 07/08/2018 11:00 PM CDT Gastrointestinal hemorrhage, unspecified gastrointestinal hemorrhage type UPPER ENDOSCOPY 07/07/2018 6:30 AM CDT Common bile duct (CBD) obstruction PROCEDURE W/ C-ARM 07/07/2018 6:30 AM CDT Common bile duct (CBD) obstruction ERCP,BILIARY STENT 07/07/2018 6:30 AM CDT Common bile duct (CBD) obstruction ERCP,BILIARY STENT 07/06/2018 4:00 PM CDT Common bile duct (CBD) obstruction PROCEDURE W/ C-ARM 07/06/2018 4:00 PM CDT Common bile duct (CBD) obstruction ERCP,PAPILLOTOMY 07/06/2018 4:00 PM CDT Common bile duct (CBD) obstruction after 08/11/2017 Results EKG-SCANNED (07/26/2018 9:00 AM)RHYTHM STRIP - SCAN (07/26/2018 9:00 AM) TRANSFUSION SERVICE REPORT - SCAN (07/24/2018 6:00 PM)Only the most recent of11 resultswithin the time period is included.Hemoglobin and hematocrit (2017 1:20 PM)Only the most recent of67 resultswithin the time period is included. Component Value Ref Range Hemoglobin 9.4 (L) 13.7 - 17.5 GM/DL Hematocrit 29.2 (L) 40.1 - 51.0 % Specimen Performing Laboratory Blood [address] [address] POC-Glucose meter (07/24/2018 12:48 PM)Only the most recent of73 resultswithin the time period is included. Component Value Ref Range POC-Glucose Meter 188 (H)Comment: TESTED AT [address] 70 - 110 mg/[place] [address] Specimen Performing Laboratory Blood [address] [address] Basic Metabolic Panel (07/24/2018 9:23 AM)Only the most recent of40 resultswithin the time period is included. Component Value Ref Range Sodium 136 136 - 145 meq/L Potassium 3.8 3.5 - 5.1 meq/L Chloride 98 98 - 107 meq/L CO2 30 (H) 22 - 29 meq/L BUN 18 7 - 21 mg/dL Creatinine 1.79 (H) 0.57 - 1.25 mg/dL Glucose 125 (H) 70 - 105 mg/dL Calcium 9.1 8.4 - 10.2 mg/dL EGFR 39Comment: ESTIMATED GFR IS NOT ACCURATE mL/min/1.73 sq m CREATININE CLEARANCE IN PREDICTING GLOMERULAR FILTRATION RATE. ESTIMATED GFR IS NOT APPLICABLE FOR DIALYSIS PATIENTS. Specimen Performing Laboratory Blood - Arm, [address] [address] Narrative Specimen slightly icteric CBC with platelet count + automated diff (07/24/2018 4:46 AM)Only the most recent of21 resultswithin the time period is included. Component Value Ref Range WBC 10.5 3.5 - 10.5 K/L RBC 2.79 (L) 4.63 - 6.08 M/L Hemoglobin 8.4 (L) 13.7 - 17.5 GM/DL Hematocrit 26.1 (L) 40.1 - 51.0 % MCV 93.5 (H) 79.0 - 92.2 fL MCH 30.1 25.7 - 32.2 pg MCHC 32.2 (L) 32.3 - 36.5 GM/DL RDW 16.0 (H) 11.6 - 14.4 % Platelets 257 150 - 450 K/CU MM MPV 9.7 9.4 - 12.4 fL nRBC 0 0 - 0 /100 WBC % Neutros 67 % % Lymphs 12 % % Monos 14 % % Eos 6 % % Baso 1 % # Neutros 7.10 (H) 1.78 - 5.38 K/L # Lymphs 1.29 (L) 1.32 - 3.57 K/L # Monos 1.42 (H) 0.30 - 0.82 K/L # Eos 0.61 (H) 0.04 - 0.54 K/L # Baso 0.05 0.01 - 0.08 K/L Immature Granulocytes-Relative 1 0 - 1 % Specimen Performing Laboratory Blood - Arm, [address] [address] Prothrombin time/INR (07/24/2018 4:46 AM)Only the most recent of31 resultswithin the time period is included. Component Value Ref Range Protime 15.8 (H) 11.7 - 14.7 seconds INR 1.3 <=5.9 Specimen Performing Laboratory Blood - Arm, [address] [address] Narrative RECOMMENDED COUMADIN/WARFARIN INR THERAPY RANGES STANDARD DOSE: 2.0 - 3.0 Includes: PROPHYLAXIS for venous thrombosis, systemic embolization; TREATMENT for venous thrombosis and/or pulmonary embolus. HIGH RISK: Target INR is 2.5-3.5 for patients with mechanical heart valves. CBC with platelet count + automated diff (07/24/2018 4:46 AM)Only the most recent of21 resultswithin the time period is included. Specimen Performing Laboratory Blood Narrative The following orders were created for panel order CBC with platelet count + automated diff. Procedure Abnormality Status --------- ------ CBC with platelet count ...[[id number]]AbnormalFinal result Please view results for these tests on the individual orders. Magnesium (07/24/2018 4:46 AM)Only the most recent of44 resultswithin the time period is included. Component Value Ref Range Magnesium 1.5 (L) 1.6 - 2.6 mg/dL Specimen Performing Laboratory Blood - Arm, [address] [address] Hepatic function panel (07/24/2018 4:46 AM)Only the most recent of25 resultswithin the time period is included. Component Value Ref Range Protein, Total 5.7 (L) 6.0 - 8.3 gm/dL Albumin 3.0 (L) 3.5 - 5.0 g/dL Total Bilirubin 1.7 (H) 0.2 - 1.2 mg/dL Bilirubin, Direct 1.1 (H) 0.1 - 0.5 mg/dL Alkaline Phosphatase 122 40 - 150 U/L AST 29 5 - 34 U/L ALT 23 6 - 55 U/L Specimen Performing Laboratory Blood - Arm, [address] [address] Prepare Leuko-Red RBC (07/23/2018 11:54 PM)Only the most recent of5 resultswithin the time period is included. Component Value Ref Range CROSSMATCH COMPATIBLE Unit ABO O Neg UNIT NUMBER [id number] Status TRANSFUSED Blood Bank Product RED BLOOD CELLS PRODUCT CODE [id number] Specimen Performing Laboratory Other [employer] Manual Differential (07/23/2018 6:11 AM) Component Value Ref Range % Neutros (manual) 85 % % Lymphs (manual) 9 % % Monos (manual) 5 % % Eos (manual) 1 % % Baso (manual) 0 % # Neutros (manual) 11.14 (H) 1.80 - 8.00 K/L # Lymphs (manual) 1.18 (L) 1.48 - 4.50 K/L # Monos (manual) 0.66 0.00 - 1.30 K/L # Eos (manual) 0.13 0.00 - 0.50 K/L # Baso (manual) 0.00 0.00 - 0.20 K/L Total Counted 100 WBC Morphology Normal Platelet Morphology Normal Anisocytosis 1+ few Microcytes 1+ few Specimen Performing Laboratory Blood [address] [address] Calcium, Ionized (07/23/2018 6:11 AM)Only the most recent of34 resultswithin the time period is included. Component Value Ref Range Calcium, Ion 1.08 (L) 1.12 - 1.27 mmol/L pH, Blood 7.52 Specimen Performing Laboratory Blood [address] [address] Transfuse Leuko-Red RBC (07/22/2018 5:17 AM)Only the most recent of23 resultswithin the time period is included.PT/aPTT (07/22/2018 3:36 AM)Only the most recent of8 resultswithin the time period is included. Component Value Ref Range Protime 15.0 (H) 11.7 - 14.7 seconds INR 1.2 <=5.9 PTT 31.7 22.5 - 36.0 seconds Specimen Performing Laboratory Blood - Arm, Left [address] [address] Narrative RECOMMENDED COUMADIN/WARFARIN INR THERAPY RANGES STANDARD DOSE: 2.0 - 3.0 Includes: PROPHYLAXIS for venous thrombosis, systemic embolization; TREATMENT for venous thrombosis and/or pulmonary embolus. HIGH RISK: Target INR is 2.5-3.5 for patients with mechanical heart valves. Fibrinogen (07/22/2018 3:36 AM)Only the most recent of8 resultswithin the time period is included. Component Value Ref Range Fibrinogen 426 225 - 434 mg/dl Specimen Performing Laboratory Blood - Arm, [address] [address] D-dimer (07/22/2018 3:36 AM)Only the most recent of8 resultswithin the time period is included. Component Value Ref Range D-Dimer, Quant 2.14 (H) <0.50 MG/L FEU Specimen Performing Laboratory Blood - Arm, [address] [address] Narrative Intended Use: The D-Dimer Assay can be used to aid in the diagnosis of Deep Vein Thrombosis (DVT) and Pulmonary Embolism Disease (PED). In patients with low pre-test probability, various studies concerning STA Liatest D-dimer test have reported that with a cutoff value of 0.50 MG/L FEU, the Negative Predictive Value (NPV) regarding the exclusion of thrombosis is within 95-100% range. Platelet count (07/22/2018 3:36 AM)Only the most recent of6 resultswithin the time period is included. Component Value Ref Range Platelets 293 150 - 450 K/CU MM Specimen Performing Laboratory Blood - Arm, [address] [address] REPORT OF PROCEDURE - ENDOSCOPY URL (07/21/2018 4:03 PM)Only the most recent of8 resultswithin the time period is included.Type and screen, automated (2017 12:40 PM)Only the most recent of4 resultswithin the time period is included. Component Value Ref Range Ab Scrn NEGATIVE Specimen Performing Laboratory Blood - Arm, [address] [address] ABORH, manual (07/21/2018 12:40 PM)Only the most recent of2 resultswithin the time period is included. Component Value Ref Range ABO Grouping O Rh Factor NEGComment: echo resulted RH+, historical blood type O Rh Negative. Patient was switched to RH+ blood due to low inventory of RH=. Specimen Performing Laboratory Blood - Arm, [address] [address] ECG 12 lead (07/20/2018 5:35 PM)Only the most recent of3 resultswithin the time period is included. Specimen Performing Laboratory GE MUSE Narrative Ventricular Rate 73 BPM Atrial Rate 73 BPM P-R Interval 184 ms QRS Duration 88 ms Q-T Interval 402 ms QTC Calculation(Bazett) 442 ms P [place] -12 degrees R [place] 2 degrees T [place] 103 degrees Normal sinus rhythm Possible Inferior infarct (cited on or before 07-JUL-2018) T wave abnormality, consider lateral ischemia Abnormal ECG When compared with ECG of 07-JUL-2018 15:29, Significant changes have occurred Confirmed by MD DE LA ROSA RUPA ([id number]) on 07/21/2018 12:59:02 PM Procedure Note Interface, External Ris In - 07/21/2018 12:59 PM CDT Ventricular Rate 73 BPM Atrial Rate 73 BPM P-R Interval 184 ms QRS Duration 88 ms Q-T Interval 402 ms QTC Calculation(Bazett) 442 ms P [place] -12 degrees R [place] 2 degrees T [place] 103 degrees Normal sinus rhythm Possible Inferior infarct (cited on or before 07-JUL-2018) T wave abnormality, consider lateral ischemia Abnormal ECG When compared with ECG of 07-JUL-2018 15:29, Significant changes have occurred Confirmed by MD DE LA ROSA RUPA ([id number]) on 07/21/2018 12:59:02 PM XR chest 1 view portable / bedside (07/18/2018 9:05 AM)Only the most recent of9 resultswithin the time period is included. Specimen Performing Laboratory GE RIS Narrative FINAL REPORT CLINICAL HISTORY: HF TECHNIQUE: 1 view of the chest. COMPARISON: 07/15/2018 IMPRESSION: The ETT has been removed. The right-sided dialysis catheter remains in the SVC. Pulmonary vascular congestion appears increased with increased bilateral airspace opacities. There is a new small left pleural effusion. The cardiomediastinal silhouette is magnified by technique with sternotomy wires. Signed: Gina Spears MD Report Verified Date/Time:07/18/2018 10:38:16 Reading Location: [facility] Radiology Reading Room Procedure Note Interface, External Ris In - 07/18/2018 10:40 AM CDT FINAL REPORT CLINICAL HISTORY: HF TECHNIQUE: 1 view of the chest. COMPARISON: 07/15/2018 IMPRESSION: The ETT has been removed. The right-sided dialysis catheter remains in the SVC. Pulmonary vascular congestion appears increased with increased bilateral airspace opacities. There is a new small left pleural effusion. The cardiomediastinal silhouette is magnified by technique with sternotomy wires. Signed: Gina Spears MD Report Verified Date/Time: 07/18/2018 10:38:16 Reading Location: [facility] Radiology Reading Room Potassium (07/17/2018 5:51 PM)Only the most recent of34 resultswithin the time period is included. Component Value Ref Range Potassium 4.3Comment: Specimen slightly hemolyzed 3.5 - 5.1 meq/L Specimen Performing Laboratory Blood [facility] [address] ERCP (07/17/2018 2:50 PM)Only the most recent of3 resultswithin the time period is included. Specimen Performing Laboratory GE RIS Narrative FINAL REPORT ERCP 1 view 07/17/2018 6:06 PM CLINICAL HISTORY: Instrument localization COMPARISON: None available IMPRESSION: Please correlate imaging report findings with the procedure note prepared by Dr. Santacruz, as an intra-procedure imaging consultation was not requested. Reported fluoroscopy time: 233.8 seconds. Signed: Farhad Meza MD Report Verified Date/Time:07/17/2018 18:08:25 Reading Location: [facility] Reading Room Procedure Note Interface, External Ris In - 07/17/2018 6:10 PM CDT FINAL REPORT ERCP 1 view 07/17/2018 6:06 PM CLINICAL HISTORY: Instrument localization COMPARISON: None available IMPRESSION: Please correlate imaging report findings with the procedure note prepared by Dr. Santacruz, as an intra-procedure imaging consultation was not requested. Reported fluoroscopy time: 233.8 seconds. Signed: Farhad Meza MD Report Verified Date/Time: 07/17/2018 18:08:25 Reading Location: [facility] Radiology Reading Room Prepare plasma (07/16/2018 11:54 PM)Only the most recent of8 resultswithin the time period is included. Component Value Ref Range Unit ABO O Pos UNIT NUMBER [id number] Status TRANSFUSED Blood Bank Product FFP PRODUCT CODE [id number] Specimen Performing Laboratory Blood [employer] Prepare RBC (07/16/2018 11:54 PM)Only the most recent of13 resultswithin the time period is included. Component Value Ref Range Unit ABO O Pos UNIT NUMBER [id number] Status TRANSFUSED Blood Bank Product RED BLOOD CELLS PRODUCT CODE [id number] Unit ABO O Pos UNIT NUMBER [id number] Status RETURNED FROM ISSUE Blood Bank Product RED BLOOD CELLS PRODUCT CODE [id number] Specimen Performing Laboratory [place] Phosphorus (07/16/2018 8:10 AM)Only the most recent of15 resultswithin the time period is included. Component Value Ref Range Phosphorus 2.9 2.3 - 4.7 mg/dL Specimen Performing Laboratory Blood - Line, Arterial [address] [address] Prepare Leuko-Red PLT (07/16/2018 1:43 AM)Only the most recent of3 resultswithin the time period is included. Component Value Ref Range Unit ABO O Pos UNIT NUMBER [id number] Status CANCELED Blood Bank Product PLATELETS PRODUCT CODE C9017P29 Unit ABO O Pos UNIT NUMBER [id number] Status READY Blood Bank Product PLATELETS PRODUCT CODE [id number] Specimen Performing Laboratory Blood [place] Lactic acid, arterial, whole blood (07/15/2018 12:53 PM)Only the most recent of11 resultswithin the time period is included. Component Value Ref Range Lactate, Art 0.8 0.5 - 2.2 mmol/L Specimen Performing Laboratory Blood, Arterial - Line, Arterial [address] [address] Narrative Effective 02/25/2016: Units/Reference Range Change New: 0.5-2.2 mmol/LPrevious: 5-20 mg/dL Specimen slightly icteric Comprehensive metabolic panel (07/15/2018 12:53 PM)Only the most recent of2 resultswithin the time period is included. Component Value Ref Range Protein, Total 3.8 (L) 6.0 - 8.3 gm/dL Albumin 2.2 (L) 3.5 - 5.0 g/dL Alkaline Phosphatase 100 40 - 150 U/L Total Bilirubin 2.5 (H) 0.2 - 1.2 mg/dL Sodium 141 136 - 145 meq/L Potassium 3.3 (L) 3.5 - 5.1 meq/L Chloride 109 (H) 98 - 107 meq/L CO2 25 22 - 29 meq/L BUN 27 (H) 7 - 21 mg/dL Creatinine 1.96 (H) 0.57 - 1.25 mg/dL Glucose 164 (H) 70 - 105 mg/dL Calcium 7.5 (L) 8.4 - 10.2 mg/dL AST 31 5 - 34 U/L ALT 22 6 - 55 U/L EGFR 36Comment: ESTIMATED GFR IS NOT ACCURATE mL/min/1.73 sq m CREATININE CLEARANCE IN PREDICTING GLOMERULAR FILTRATION RATE. ESTIMATED GFR IS NOT APPLICABLE FOR DIALYSIS PATIENTS. Specimen Performing Laboratory Blood - Line, Arterial [address] [address] Narrative Specimen slightly icteric Lactic acid, venous, whole blood (07/15/2018 11:18 AM)Only the most recent of6 resultswithin the time period is included. Component Value Ref Range Lactate, Venous 0.9 0.5 - 2.2 mmol/L Specimen Performing Laboratory Blood - Line, [address] [address] Narrative Effective 02/25/2016: Units/Reference Range Change New: 0.5-2.2 mmol/LPrevious: 5-20 mg/dL Blood culture #1 (07/15/2018 9:13 AM)Only the most recent of3 resultswithin the time period is included. Component Value Ref Range Result No growth in 5 days Specimen Performing Laboratory Blood - Line, [address] [address] Transfuse plasma (07/15/2018 7:53 AM)Only the most recent of17 resultswithin the time period is included.Blood gas, arterial (07/15/2018 6:42 AM)Only the most recent of18 resultswithin the time period is included. Component Value Ref Range pH, Arterial 7.48 (H) 7.35 - 7.45 pCO2, Arterial 36 35 - 45 mm Hg pO2, Arterial 391 (H) 80 - 90 mm Hg O2 Sat, Arterial 99.8 (H) 96.0 - 97.0 % HCO3, Arterial 26 21 - 29 mmol/L Base Excess, Arterial 2.6 -2.0 - 3.0 mmol/L Patient Temperature 37.0 FIO2 100 Specimen Performing Laboratory Blood, Arterial - Line, Arterial [address] [address] Manual Differential (07/15/2018 6:37 AM)Only the most recent of5 resultswithin the time period is included. Component Value Ref Range % Neutros 92 % % Lymphs 2 % % Monos 5 % % Metamyelo 1 (H) 0 - 0 % % Bands 1 0 - 10 % # Neutros 17.57 (H) 1.78 - 5.38 K/ul # Lymphs 0.38 (L) 1.32 - 3.57 K/ul # Monos 0.96 (H) 0.30 - 0.82 K/uL # Metamyelo 0.19 (H) 0.00 - 0.00 K/uL # Bands 0.19 0.00 - 0.80 K/uL Total Counted 100 WBC Morphology Normal Platelet Morphology Normal Anisocytosis 2+ moderate Microcytes 2+ moderate Poikilocytes 1+ few Artifact Present Platelet Conc Decreased Specimen Performing Laboratory Blood - Line, Arterial [address] [address] Narrative Received comment: User comments: Slide comments: POCT-HEMATOCRIT (07/15/2018 4:50 AM)Only the most recent of6 resultswithin the time period is included. Component Value Ref Range POC-Hematocrit 22 (L)Comment: TESTED AT [address] [address] 40 - 50 % Specimen Performing Laboratory Blood [address] [address] POCT-HEMOGLOBIN (07/15/2018 4:50 AM)Only the most recent of6 resultswithin the time period is included. Component Value Ref Range POC-Hemoglobin 7.5 (L)Comment: TESTED AT [address] 13.0 - 16.8 g/dL [place] [id number] AT [address] [address] Specimen Performing Laboratory Blood [address] [address] POCT-GLUCOSE (07/15/2018 4:50 AM)Only the most recent of6 resultswithin the time period is included. Component Value Ref Range POC-Glucose 170 (H)Comment: TESTED AT [address] 70 - 110 mg/dL [address] Specimen Performing Laboratory Blood [address] [address] POC-Sodium (07/15/2018 4:50 AM)Only the most recent of6 resultswithin the time period is included. Component Value Ref Range POC-Sodium 144Comment: TESTED AT [place] [address] 135 - 148 meq/L Specimen Performing Laboratory Blood [address] [address] POC-Potassium (07/15/2018 4:50 AM)Only the most recent of6 resultswithin the time period is included. Component Value Ref Range POC-Potassium 3.2 (L)Comment: TESTED AT [address] 3.6 - 5.5 meq/L [facility] Specimen Performing Laboratory Blood [address] [address] POC-Calcium ionized (07/15/2018 4:50 AM)Only the most recent of6 resultswithin the time period is included. Component Value Ref Range POC-Calcium Ionized 1.09 (L)Comment: TESTED AT [address] 1.12 - 1.27 mmol/L [place] [address] Specimen Performing Laboratory Blood [address] [address] POC-Blood gases, arterial (07/15/2018 4:50 AM)Only the most recent of4 resultswithin the time period is included. Component Value Ref Range Temp. Celsius-POC 36.8 FIO2-POC 100Comment: TESTED AT [place] [address] pH, Arterial-POC 7.424 7.350 - 7.450 PCO2, Arterial-POC 41.6 35.0 - 45.0 mm Hg PO2, Arterial-POC 482.0 (H) 80.0 - 90.0 mm Hg SO2, Arterial-POC 100.0 (H) 96.0 - 97.0 % HCO3, Arterilal-POC 27.3 21.0 - 29.0 meq/L BE, Arterial-POC 3.0 -2.0 - 3.0 meq/L Specimen Performing Laboratory Blood [address] [address] Thromboelastograph (TEG) (07/15/2018 4:03 AM)Only the most recent of7 resultswithin the time period is included. Component Value Ref Range TEG Activated Clotting Time 3.9 (L) 4.0 - 7.0 minutes TEG Fibrinogen Activity 73.5 (H) 61.0 - 73.0 degrees TEG Platelet Aggregation 57.9 55.0 - 65.0 MM TEG Fibrinolysis 0.2 0.0 - 5.0 % TEG-H Activated Clotting Time 4.2 4.0 - 7.0 minutes TEG-H Fibrinogen Activity 72.5 61.0 - 73.0 degrees TEG-H Platelet Aggregation 58.9 55.0 - 65.0 MM TEG-H Fibrinolysis 0.4 0.0 - 5.0 % Specimen Performing Laboratory Blood - Line, Arterial [address] [address] Sodium (07/15/2018 4:03 AM)Only the most recent of14 resultswithin the time period is included. Component Value Ref Range Sodium 142 136 - 145 meq/L Specimen Performing Laboratory Blood - Line, Arterial [address] [address] POC-Blood gases, venous (07/15/2018 2:19 AM)Only the most recent of2 resultswithin the time period is included. Component Value Ref Range Temp. Celsius-POC 36.1 FIO2-POC 32Comment: TESTED AT [address] [address] pH, Venous-POC 7.432 (H) 7.320 - 7.420 PCO2, Venous-POC 46.6 41.0 - 51.0 mm Hg PO2, Venous-POC 27.0 25.0 - 40.0 mm Hg SO2, Venous-POC 54.0 40.0 - 70.0 % HCO3, Venous-POC 31.3 (H) 21.0 - 29.0 meq/L BE, Venous-POC 7.0 (H) -2.0 - 3.0 meq/L Specimen Performing Laboratory Blood [address] [address] Blood gas, venous (07/14/2018 7:55 AM)Only the most recent of2 resultswithin the time period is included. Component Value Ref Range pH, Ronald 7.41 7.32 - 7.42 pCO2, Ronald 45 41 - 51 mmHg pO2, Ronald 40 25 - 40 mmHg O2 Sat, Ronald 75.2 (H) 40.0 - 70.0 % HCO3, Ronald 28 21 - 29 mmol/L Base Excess, Ronald 3.0 -2.0 - 3.0 mmol/L Patient Temperature 37.0 C FIO2 36.0 % Specimen Performing Laboratory Blood [address] [address] Oxygen saturation, measured (07/14/2018 4:02 AM)Only the most recent of5 resultswithin the time period is included. Component Value Ref Range O2 Saturation (Measured) 97.9 % Specimen Performing Laboratory Blood - Arm, Right [address] [address] Narrative Obtain from CVP port Vancomycin level, random (07/14/2018 4:02 AM) Component Value Ref Range Vancomycin Rm 20.5 ug/mL Specimen Performing Laboratory Blood - Arm, Right [address] [address] Narrative Reference Range: No Normals Hepatitis B Panel (07/13/2018 12:01 PM) Component Value Ref Range Hep B Core Total Ab Nonreactive Nonreactive Hep B S Ab 14.4 (H) <8.0 mIU/mL hepatitis B Surface Ag Nonreactive Nonreactive Specimen Performing Laboratory Blood - Line, Arterial [address] [address] pH, arterial (07/12/2018 6:02 PM)Only the most recent of6 resultswithin the time period is included. Component Value Ref Range pH, Arterial 7.44 7.35 - 7.45 Specimen Performing Laboratory Blood, Arterial [address] [address] Procalcitonin (07/12/2018 1:15 PM)Only the most recent of2 resultswithin the time period is included. Component Value Ref Range Procalcitonin 0.65 (H) <0.05 ng/mL Specimen Performing Laboratory Blood [address] [address] Narrative SEPSIS RISK (ng/mL) Low:0.05-0.50 Intermediate: 0.51-2.00 High: >=2.01 Vancomycin level, trough (07/12/2018 1:15 PM)Only the most recent of2 resultswithin the time period is included. Component Value Ref Range Vancomycin Tr 16.0 10.0 - 20.0 ug/mL Specimen Performing Laboratory Blood [address] [address] Lipase (07/11/2018 5:38 PM)Only the most recent of4 resultswithin the time period is included. Component Value Ref Range Lipase 57 8 - 78 U/L Specimen Performing Laboratory Blood [address] [address] aPTT (07/11/2018 8:40 AM)Only the most recent of12 resultswithin the time period is included. Component Value Ref Range PTT 33.3 22.5 - 36.0 seconds Specimen Performing Laboratory Blood [address] [address] Prepare cryoprecipitate (07/10/2018 11:54 PM) Component Value Ref Range Unit ABO O Pos UNIT NUMBER [id number] Status TRANSFUSED Blood Bank Product CRYOPRECIPITATE PRODUCT CODE [id number] Unit ABO O Pos UNIT NUMBER [id number] Status TRANSFUSED Blood Bank Product CRYOPRECIPITATE PRODUCT CODE [id number] Specimen Performing Laboratory Blood SAFETRACE TX Transfuse Leuko-Red PLT (07/10/2018 10:15 AM)Only the most recent of4 resultswithin the time period is included.Triglycerides (07/09/2018 5:40 PM) Component Value Ref Range Triglycerides 259 mg/dL Specimen Performing Laboratory Blood - Line, Arterial [address] [address] Narrative TRIGLYCERIDE REFERENCE RANGE Low Risk<150 Borderline Risk 150-199 High [id number] Very High Risk >=500 ECHOCARDIOGRAM REPORT - SCAN (07/09/2018 5:20 PM)Only the most recent of3 resultswithin the time period is included.2D Echo W/Doppler(CW/PW/Color) (2017 12:45 PM)Only the most recent of3 resultswithin the time period is included. Component Value Ref Range Ejection Fraction Specimen Performing Laboratory [facility] ECHO HEARTLAB MKCKESSON CPACS Narrative Transthoracic Echocardiography Report (TTE) Demographics Patient Name Sandra [place] of Study 07/09/2018 SHIRLENE [id number] GenderMale Visit Number [id number] RaceCaucasian [id number] Number [id number] Number Date of Birth1960 Referring Physician Karen Hussein Age58 year(s) Safety Clothing And Equipment Developer Zoie Xavier, RUST AnalystIzoemmett Candelario InterpretingStPhysician GABRIELE Atkins Procedure Type of Study TTE procedure:2DECHO W DOPPLER(CW/PW/COLOR) (STAT) Indications:Respiratory failure or hypoxemia . Clinical History CAD, DM II, HTN, ACB x3 (2013), Former smoker, Chest pain, Obese, Anemia HGB 9.6 HCT 27.3 % Height: 66 inches Weight: 111.13 kg (245 lbs) BSA: 2.18 m^2 BMI: 39.54 kg/m^2 HR: 103 bpm BP: 117/64 mmHg Summary 1. LVEF by Wing's method of disk assessment is moderately reduced (35-39%) . Inferoseptum, inferior, basal to mid inferolateral and anterolateral preciado appear hypokinetic. 2. Grade 1 diastolic dysfunction (impaired relaxation and low-normal LA pressure). 3. Estimated peak systolic PA pressure is 45-50 mmHg . 4. Global RV systolic function is mildly reduced . Previous Study In comparison with the prior exam on 07-07-18 there are no significant changes. Signature Findings Technical Quality: Good visualization Left Ventricle The left ventricle is chamber size (by PSLAX dimension) is normal (male - LVIDd 4.2-5.8cm) . Mild septal hypertrophy is present. Global LV systolic function moderately reduced . LVEF by Wing's method of disk assessment is moderately reduced (35-39%) . The LVEF was measured using Wing's bi-plane method of disk . Inferoseptum, inferior, basal to mid inferolateral and anterolateral preciado appear hypokinetic. Grade 1 diastolic dysfunction (impaired relaxation and low-normal LA pressure). Left AtriumLA size is normal (16-34 ml/m2) . Right VentricleRV chamber size is normal . Global RV systolic function is mildly reduced . Right Atrium RA cavity size is normal . Aortic Valve Mild AoV cusp thickening. Mitral Valve Mild MV leaflet thickening and focal calcification. Mild mitral annular calcification. Tricuspid ValveEstimated peak systolic PA pressure is 45-50 mmHg . Mild tricuspid regurgitation. Peak systolic pressure may be underestimated; partial TR signal. Pulmonic Valve Normal PV structure and function. AortaAortic root size (SInus of Valsalva diameter) is normal . Proximal ascending aorta size is normal . PericardiumNo pericardial effusion is visualized. IVC/SVC/PA/PV/PleuralThe estimated RA pressure by IVC dynamics 5-10mmHg . Chambers/Structures Left Atrium LA Volume: 65.34 ml LA Area: 22.12 cm^ 2 LA Vol. Index: 30 ml/m^2 Left Ventricle LVIDd: 4.27 cmLVEDV: 77.84 ml LV Septum Diastolic: 1.46 cm LV PW Diastolic: 1.09 cm LVEDV Wing's:167.6 ml LVESV Wing's:82.98 ml LVEF Wing's: 50.5 % LVEDVI: 77 ml/m^2 LVESVI: 38 ml/m^2 LVOT Diameter: 2.1 cm Right Ventricle TAPSE: 1.23 cm Aorta Ao Root S of Pebbles.: 3.16 cm Ascending Aorta: 3.5 cm Doppler/Quantitative Measurements Mitral Valve MV Peak E-Wave: 1.1 m/s MV Peak A-Wave: 1.14 m/s E/ A Ratio: 0.97 Peak Gradient: 4.88 mmHg Deceleration Time: 239.5 msec MV Rudolph. Peak: Tissue Doppler E' Lateral Velocity: 0.11 m/s Aortic Valve Peak Velocity: 1.72 m/sMean Velocity: 1.3 m/s Peak Gradient: 11.88 mmHgMean Gradient: 7.49 mmHg AV Area (continuity): 3.06 cm^2 AV VTI: 25.05 cm AV DVI: 0.88 LVOT Peak Velocity: 1.44 m/s Peak Gradient: 8.3 mmHg Mean Velocity: 0.89 m/s Mean Gradient: 3.84 mmHg LVOT Diameter: 2.1 cm LVOT VTI: 22.13 cm LVOT Area: 3.46 cm^2LVOT SV:76.61 ml LVOT CO: 7.89 l/min LVOT CI: 3.62 l/min/m^2 Tricuspid Valve TR Velocity: 3.24 m/s TR Gradient: 42 mmHg Procedure Note Interface, External Ris In - 07/09/2018 4:59 PM CDT Transthoracic Echocardiography Report (TTE) Demographics Patient Name CHICHO NJ Date of Study 07/09/2018 SHIRLENE Gender Male Visit Number [id number] Race Room Number [id number] Number Date of 1960 Referring Physician Karen Hussein Age 58 year(s) Safety Clothing And Equipment Developer Zoie Xavier, RUST Tafe Teacher Melo Candelario Interpreting Physician GABRIELE Berger Procedure Type of Study TTE procedure:2DECHO W DOPPLER(CW/PW/COLOR) (STAT) Indications:Respiratory failure or hypoxemia . Clinical History CAD, DM II, HTN, ACB x3 (2013), Former smoker, Chest pain, Obese, Anemia HGB 9.6 HCT 27.3 % Height: 66 inches Weight: 111.13 kg (245 lbs) BSA: 2.18 m^2 BMI: 39.54 kg/m^2 HR: 103 bpm BP: 117/64 mmHg Summary 1. LVEF by Wing's method of disk assessment is moderately reduced (35-39%) . Inferoseptum, inferior, basal to mid inferolateral and anterolateral preciado appear hypokinetic. 2. Grade 1 diastolic dysfunction (impaired relaxation and low-normal LA pressure). 3. Estimated peak systolic PA pressure is 45-50 mmHg . 4. Global RV systolic function is mildly reduced . Previous Study In comparison with the prior exam on 07-07-18 there are no significant changes. Signature Findings Technical Quality: Good visualization Left Ventricle The left ventricle is chamber size (by PSLAX dimension) is normal (male - LVIDd 4.2-5.8cm) . Mild septal hypertrophy is present. Global LV systolic function moderately reduced . LVEF by Wing's method of disk assessment is moderately reduced (35-39%) . The LVEF was measured using Wing's bi-plane method of disk . Inferoseptum, inferior, basal to mid inferolateral and anterolateral preciado appear hypokinetic. Grade 1 diastolic dysfunction (impaired relaxation and low-normal LA pressure). Left Atrium LA size is normal (16-34 ml/m2) . Right Ventricle RV chamber size is normal . Global RV systolic function is mildly reduced . Right Atrium RA cavity size is normal . Aortic Valve Mild AoV cusp thickening. Mitral Valve Mild MV leaflet thickening and focal calcification. Mild mitral annular calcification. Tricuspid Valve Estimated peak systolic PA pressure is 45-50 mmHg . Mild tricuspid regurgitation. Peak systolic pressure may be underestimated; partial TR signal. Pulmonic Valve Normal PV structure and function. Aorta Aortic root size (SInus of Valsalva diameter) is normal . Proximal ascending aorta size is normal . Pericardium No pericardial effusion is visualized. IVC/SVC/PA/PV/Pleural The estimated RA pressure by IVC dynamics 5-10mmHg . Chambers/Structures Left Atrium LA Volume: 65.34 ml LA Area: 22.12 cm^2 LA Vol. Index: 30 ml/m^2 Left Ventricle LVIDd: 4.27 cm LVEDV:77.84 ml LV Septum Diastolic: 1.46 cm LV PW Diastolic: 1.09 cm LVEDV Wing's:167.6 ml LVESV Wing's:82.98 ml LVEF Wing's: 50.5 % LVEDVI: 77 ml/m^2 LVESVI: 38 ml/m^2 LVOT Diameter: 2.1 cm Right Ventricle TAPSE: 1.23 cm Aorta Ao Root S of Pebbles.: 3.16 cm Ascending Aorta: 3.5 cm Doppler/Quantitative Measurements Mitral Valve MV Peak E-Wave: 1.1 m/s MV Peak A-Wave: 1.14 m/s E/A Ratio: 0.97 Peak Gradient: 4.88 mmHg Deceleration Time: 239.5 msec MV Rudolph. Peak: Tissue Doppler E' Lateral Velocity: 0.11 m/s Aortic Valve Peak Velocity: 1.72 m/s Mean Velocity: 1.3 m/s Peak Gradient: 11.88 mmHg Mean Gradient: 7.49 mmHg AV Area (continuity): 3.06 cm^2 AV VTI: 25.05 cm AV DVI: 0.88 LVOT Peak Velocity: 1.44 m/s Peak Gradient: 8.3 mmHg Mean Velocity: 0.89 m/s Mean Gradient: 3.84 mmHg LVOT Diameter: 2.1 cm LVOT VTI: 22.13 cm LVOT Area: 3.46 cm^2 LVOT SV:76.61 ml LVOT CO: 7.89 l/min LVOT CI: 3.62 l/min/m^2 Tricuspid Valve TR Velocity: 3.24 m/s TR Gradient: 42 mmHg Transfuse cryoprecipitate (07/09/2018 10:40 AM)Only the most recent of3 resultswithin the time period is included.IR Embolization Arterial (07/09/2018 4:05 AM) Specimen Performing Laboratory GE RIS Narrative FINAL REPORT Exam:Visceral arteriogram and embolization Clinical History:Status post resection ERCP and sphincterotomy with acute GI bleeding despite recent embolization Consent:Benefits and risks were explained to the patient's cousin who gave consent to the procedure. Fluoro Time:29.5 Minutes Total Images: 86 Procedure:Sterile barrier technique was followed including cap, mask, sterile gown, sterile gloves, sterile sheet, hand hygiene and 2% chlorhexidine for cutaneous antisepsis. The right groin was prepped and draped in usual sterile fashion. 2% lidocaine was used as local anesthetic. The right common femoral artery was accessed followed by selection of the superior mesenteric artery and celiac artery. Digital subtraction angiography was performed which demonstrated no evidence of active hemorrhage or vascular malformation. The patient is status post embolization of one of the duodenal branches yesterday which demonstrated cessation of flow through this region. Using microcatheter and wire, another branch supplying the proximal duodenum was embolized using microcoils. Postembolization angiogram demonstrated cessation of flow to the region of the proximal duodenum. Limited right common femoral arteriogram demonstrated no contraindication for closure device. The arteriotomy was closed using Angio-Seal. Hemostasis was achieved. The patient tolerated the procedure well without any adverse reactions. He left the department in stable condition. Complication:None immediate Impression: 1. No evidence of active hemorrhage in the region of the external bile duct. The patient is status post coil embolization and biliary stent insertion prior to the procedure. Another proximal duodenal branch was empirically embolized using microcoils. Signed: Sosa Euceda MD Report Verified Date/Time:07/09/2018 07:11:14 Reading Location: [place] [address] Angio Body Reading Room Procedure Note Interface, External Ris In - 07/09/2018 7:13 AM CDT FINAL REPORT Exam: Visceral arteriogram and embolization Clinical History: Status post resection ERCP and sphincterotomy with acute GI bleeding despite recent embolization Consent: Benefits and risks were explained to the patient's cousin who gave consent to the procedure. Fluoro Time: 29.5 Minutes Total Images: 86 Procedure: Sterile barrier technique was followed including cap, mask, sterile gown, sterile gloves, sterile sheet, hand hygiene and 2% chlorhexidine for cutaneous antisepsis. The right groin was prepped and draped in usual sterile fashion. 2% lidocaine was used as local anesthetic. The right common femoral artery was accessed followed by selection of the superior mesenteric artery and celiac artery. Digital subtraction angiography was performed which demonstrated no evidence of active hemorrhage or vascular malformation. The patient is status post embolization of one of the duodenal branches yesterday which demonstrated cessation of flow through this region. Using microcatheter and wire, another branch supplying the proximal duodenum was embolized using microcoils. Postembolization angiogram demonstrated cessation of flow to the region of the proximal duodenum. Limited right common femoral arteriogram demonstrated no contraindication for closure device. The arteriotomy was closed using Angio-Seal. Hemostasis was achieved. The patient tolerated the procedure well without any adverse reactions. He left the department in stable condition. Complication: None immediate Impression: 1. No evidence of active hemorrhage in the region of the external bile duct. The patient is status post coil embolization and biliary stent insertion prior to the procedure. Another proximal duodenal branch was empirically embolized using microcoils. Signed: Sosa Euceda MD Report Verified Date/Time: 07/09/2018 07:11:14 Reading Location: [place] [address] Angio Body Reading Room Troponin I (07/08/2018 8:01 AM)Only the most recent of4 resultswithin the time period is included. Component Value Ref Range Troponin I 0.99 (HH) 0.00 - 0.03 ng/mL Specimen [place] [address] Narrative Troponin I (TnI) levels must be interpreted in the context of the presenting symptoms and the clinical findings. Elevated TnI levels indicate myocardial damage, but are not specific for ischemic heart disease. Elevated TnI levels are seen in patients with other cardiac conditions (including myocarditis and congestive heart failure), and slight TnI elevations occur in patients with other conditions, including sepsis, renal failure, acidosis, acute neurological disease, and persistent tachyarrhythmia. Fibrin soluble monomer (07/08/2018 4:01 AM)Only the most recent of3 resultswithin the time period is included. Component Value Ref Range Fibrin Soluble Monomer Negative Specimen Performing Laboratory Blood - Line, [place] [address] Continuous venovenous hemodialysis (CVVHD) (07/07/2018 5:04 PM) Carrillo Jacobs MD 07/07/20185:04 PM [facility] Nephrology Service 07/07/2018 I have personally seen and examined Chicho Nj on CVVHD Indication :DEION, Metabolic acidosis CVVHD prescription: Blood flow 250 ml/min Dialysate flow 2500 ml/hr UF goal of net even 4 K bath Anticoagulation : none Electrolyte monitoring and replacement per protocol. Carrillo Menchaca MD 07/07/2018 5:03 PM Urinalysis Microscopic Only (07/07/2018 3:23 PM) Component Value Ref Range RBC, UA 1 /HPF WBC, UA 5 /HPF Mucus Rare Squam Epithel, UA 1 /HPF Specimen Performing Laboratory Urine - Urine, [address] [address] Urinalysis with Microscopic If Indicated (07/07/2018 3:23 PM) Component Value Ref Range Color, UA Yellow Clarity, UA Hazy Specific [place], UA 1.040 (H) 1.001 - 1.035 pH, UA 6.0 5.0 - 8.0 Protein, UA 20 mg/dL (A) Negative Glucose, UA 30 mg/dL (A) Negative Ketones, UA 10 mg/dL (A) Negative Bilirubin, UA Negative Negative Blood, UA Negative Negative Nitrite, UA Negative Negative Leukocytes, UA Negative Negative Urobilinogen, UA 0.2 0.2 - 1.0 mg/dL Specimen Source Specimen Performing Laboratory Urine - Urine, [address] [address] Sodium, random urine (07/07/2018 3:23 PM) Component Value Ref Range Sodium Urine <20 meq/L Specimen Performing Laboratory Urine - Urine, [address] [address] Narrative Reference Range: No Normals Protein, random urine (07/07/2018 3:23 PM) Component Value Ref Range Protein, Urine 33 (H) 0 - 14 mg/dL Specimen Performing Laboratory Urine - Urine, [address] [address] Creatinine, random urine (07/07/2018 3:23 PM) Component Value Ref Range Creatinine, Ur 68.4 mg/dL Specimen Performing Laboratory Urine - Urine, [facility] [address] [place] [address] Narrative Reference Range: No Normals IR Embolization Bleed (07/07/2018 2:20 PM) Specimen Performing Laboratory GE RIS Narrative FINAL REPORT History: Upper GI bleed, active bleeding by recent endoscopy. PROCEDURE: Following informed written consent, the patient's right femoral area was prepped and draped in the usual sterile manner. 2% lidocaine was given locally for anesthesia. No conscious sedation was administered. Access was gained to the right common femoral artery and a 5 Icelandic sheath was placed. A 5 Icelandic Alcantar B catheter was placed over a wire into the abdominal aorta and used to carefully select and perform celiac and superior mesenteric arteriograms. With the catheter parked in origin of the superior mesenteric artery, coaxial technique was utilized to advance a 3 Icelandic microcatheter over a wire and into a proximal branch of the places replaced right hepatic artery which appears to be a gastroduodenal vessel. Subselective arteriography was performed. The 3 Icelandic microcatheter was further advanced into a distal duodenal branch of this vessel in the region of the patient's known hemorrhage, an endoscopically placed stents and clips. Again, subselective arteriography was performed. Transcatheter empiric embolization of the duodenal branch was achieved using two 2 x 2 cm detachable microcoils. Repeat arteriogram was performed following embolization to confirm stasis of flow in this duodenal vessel. At the conclusion of the procedure the catheters and sheath were removed and hemostasis achieved using a 5 Icelandic mynx closure device. Overall, the patient tolerated the procedure well without immediate complications and was discharged from the department in stable but critical condition. FINDINGS: Celiac arteriogram demonstrates patent splenic and left hepatic arteries. No right hepatic artery is identified. Diffuse vasoconstriction is seen, consistent with hypovolemic shock and/or the effect of patient's current IV pressors. There is no active contrast extravasation or evidence for active hemorrhage. 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 No active contrast extravasation or evidence for active hemorrhage. Subselective gastroduodenal arteriogram demonstrates a microcatheter in expected position within a distal duodenal branch providing flow to majority of the duodenum including the regions of the patient's endoscopically placed clips and covered stent. There is no active contrast extravasation or evidence for hemorrhage. Following empiric embolization of this branch vessel, complete stasis of flow is identified. IMPRESSION: 1. No active contrast extravasation identified angiographically. Distal duodenal branch arising from the proximal aspect of the patient's replaced right hepatic artery was empirically embolized using detachable microcoils as described in detail above. There were no immediate complications. Total fluoroscopy time: 15.8 minutes. Estimated total patient dose reported as (Ka,r): 3073 mGy Signed: Felicitas Alvarez MD Report Verified Date/Time:07/07/2018 17:15:21 Reading Location: [facility] [address] Angio Body Reading Room Procedure Note Interface, External Ris In - 07/07/2018 5:17 PM CDT FINAL REPORT History: Upper GI bleed, active bleeding by recent endoscopy. PROCEDURE: Following informed written consent, the patient's right femoral area was prepped and draped in the usual sterile manner. 2% lidocaine was given locally for anesthesia. No conscious sedation was administered. Access was gained to the right common femoral artery and a 5 Icelandic sheath was placed. A 5 Icelandic Alcantar B catheter was placed over a wire into the abdominal aorta and used to carefully select and perform celiac and superior mesenteric arteriograms. With the catheter parked in origin of the superior mesenteric artery, coaxial technique was utilized to advance a 3 Icelandic microcatheter over a wire and into a proximal branch of the places replaced right hepatic artery which appears to be a gastroduodenal vessel. Subselective arteriography was performed. The 3 Icelandic microcatheter was further advanced into a distal duodenal branch of this vessel in the region of the patient's known hemorrhage, an endoscopically placed stents and clips. Again, subselective arteriography was performed. Transcatheter empiric embolization of the duodenal branch was achieved using two 2 x 2 cm detachable microcoils. Repeat arteriogram was performed following embolization to confirm stasis of flow in this duodenal vessel. At the conclusion of the procedure the catheters and sheath were removed and hemostasis achieved using a 5 Icelandic mynx closure device. Overall, the patient tolerated the procedure well without immediate complications and was discharged from the department in stable but critical condition. FINDINGS: Celiac arteriogram demonstrates patent splenic and left hepatic arteries. No right hepatic artery is identified. Diffuse vasoconstriction is seen, consistent with hypovolemic shock and/or the effect of patient's current IV pressors. There is no active contrast extravasation or evidence for active hemorrhage. 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 No active contrast extravasation or evidence for active hemorrhage. Subselective gastroduodenal arteriogram demonstrates a microcatheter in expected position within a distal duodenal branch providing flow to majority of the duodenum including the regions of the patient's endoscopically placed clips and covered stent. There is no active contrast extravasation or evidence for hemorrhage. Following empiric embolization of this branch vessel, complete stasis of flow is identified. IMPRESSION: 1. No active contrast extravasation identified angiographically. Distal duodenal branch arising from the proximal aspect of the patient's replaced right hepatic artery was empirically embolized using detachable microcoils as described in detail above. There were no immediate complications. Total fluoroscopy time: 15.8 minutes. Estimated total patient dose reported as (Ka,r): 3073 mGy Signed: Felicitas Alvarez MD Report Verified Date/Time: 07/07/2018 17:15:21 Reading Location: [place] [address] Angio Body Reading Room Sputum Culture + Gram Stain (07/07/2018 12:02 PM) Component Value Ref Range Result Organism(s) under evaluation Result <1+ Staphylococcus aureus (A) Gram Stain Result 1+ WBCs Gram Stain Result 0-5 epithelial cells Gram Stain Result No organisms seen Specimen Performing Laboratory Sputum - Endotracheal [address] [address] Organism Antibiotic Method Susceptibility Staphylococcus aureus Clindamycin 0.25: Susceptible Staphylococcus aureus Erythromycin <=0.25: Susceptible Staphylococcus aureus Linezolid 2: Susceptible Staphylococcus aureus Oxacillin <=0.25: Susceptible Staphylococcus aureus Rifampin <=0.5: Susceptible Staphylococcus aureus Tetracycline <=1: Susceptible Staphylococcus aureus Trimethoprim + Sulfamethoxazole <=10: Susceptible Staphylococcus aureus Vancomycin <=0.5: Susceptible MRSA screen (07/07/2018 10:59 AM) Component Value Ref Range Result No MRSA isolated Specimen Performing Laboratory Nasal - Nares, Right [address] [address] IR Visceral Arteriogram (07/07/2018 2:45 AM) Specimen Performing Laboratory GE RIS Narrative FINAL REPORT Exam:Visceral arteriogram Clinical History:Status post recent ERCP and sphincterotomy with acute GI bleeding post procedure Consent:Benefits and risks were explained to the patient who gave consent to the procedure. Fluoro Time:5.5 Minutes Total Images: 97 Medication:Versed 0.5 mg IV Procedure:Sterile barrier technique was followed including cap, mask, sterile gown, sterile gloves, sterile sheet, hand hygiene and 2% chlorhexidine for cutaneous antisepsis. The right groin was prepped and draped in usual sterile fashion. 2% lidocaine was used as local anesthetic. The right common femoral artery was accessed. The celiac, SMA, and ADDISON were selected followed by digital subtraction angiography. 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 The study was suboptimal secondary to patient's inability to stop breathing during the digital subtraction angiography. Possible extravasation was noted extending from one of the duodenal branch. There was no evidence of vascular malformation. The inferior mesenteric artery was diminutive likely due to vasospasm from vasopressin. Limited right common femoral arteriogram demonstrated no evidence of contraindication for closure device. The arteriotomy was closed teaching Angio-Seal. Hemostasis was achieved. The patient tolerated the procedure well without any adverse reactions. He left the department in stable condition. Complication:None immediate Impression: 1. Visceral arteriogram as described. Signed: Sosa Euceda MD Report Verified Date/Time:07/07/2018 18:27:51 Reading Location: [facility] Radiology Reading Room Procedure Note Interface, External Ris In - 07/07/2018 6:30 PM CDT FINAL REPORT Exam: Visceral arteriogram Clinical History: Status post recent ERCP and sphincterotomy with acute GI bleeding post procedure Consent: Benefits and risks were explained to the patient who gave consent to the procedure. Fluoro Time: 5.5 Minutes Total Images: 97 Medication: Versed 0.5 mg IV Procedure: Sterile barrier technique was followed including cap, mask, sterile gown, sterile gloves, sterile sheet, hand hygiene and 2% chlorhexidine for cutaneous antisepsis. The right groin was prepped and draped in usual sterile fashion. 2% lidocaine was used as local anesthetic. The right common femoral artery was accessed. The celiac, SMA, and ADDISON were selected followed by digital subtraction angiography. 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 The study was suboptimal secondary to patient's inability to stop breathing during the digital subtraction angiography. Possible extravasation was noted extending from one of the duodenal branch. There was no evidence of vascular malformation. The inferior mesenteric artery was diminutive likely due to vasospasm from vasopressin. Limited right common femoral arteriogram demonstrated no evidence of contraindication for closure device. The arteriotomy was closed teaching Angio-Seal. Hemostasis was achieved. The patient tolerated the procedure well without any adverse reactions. He left the department in stable condition. Complication: None immediate Impression: 1. Visceral arteriogram as described. Signed: Sosa Euceda MD Report Verified Date/Time: 07/07/2018 18:27:51 Reading Location: [facility] Radiology Reading Room -Lactic Acid, Venous (07/06/2018 10:09 PM) Component Value Ref Range POC-Lactic Acid, Venous 1.3Comment: TESTED AT [address] 0.9 - 1.7 mmol/L [facility] [address] Specimen Performing Laboratory Blood [facility] [address] [address] US doppler (07/03/2018 2:55 PM) Specimen Performing Laboratory [address] Narrative FINAL REPORT HISTORY : Elevated bilirubin, abdominal pain COMPARISON : No comparisons available for review COMMENT : Complete ultrasound examination of the abdomen with color Doppler and spectral evaluation of the abdominal vasculature was performed. The liver is normal in size and homogeneous in echo-texture without evidence of a focal mass.The gallbladder contains multiple shadowing echogenic stones. There is no pericholecystic fluid. The gallbladder is nondistended. There is no intrahepatic biliary dilatation. The common bile duct is not visualized likely secondary to overlying bowel gas. The visualized portions of the pancreas are within normal limits. The spleen is normal in size and echo-texture measuring 12 cm.The right kidney measures 12.3 cm and the left kidney 9.5 cm in maximum size. There is no evidence of masses, stones or hydronephrosis. There is a 2.6 cm left renal cyst. There is a right pleural effusion. The abdominal aorta measures to a maximum of 2.0 cm. The main portal vein demonstrates hepatopedal flow and measures 1.2 cm in diameter with a peak systolic velocity of 0.26 m/s. The left and right portal veins demonstrates hepatopedal and hepatopedal flow respectively. No thrombus is identified in the portal veins. The resistive index of the proper hepatic artery is 0.8 with an acceleration time of 0.06 sec. The resistive index of the right hepatic artery is 0.8 and of the left hepatic artery is 0.8. The visualized IVC, hepatic, and splenic veins are patent with appropriate directional flow. IMPRESSION : 1. Cholelithiasis without ultrasonographic evidence of acute cholecystitis. 2. The common bile duct is not visualized. Further evaluation can be obtained with MRCP or ERCP if there is concern for choledocholithiasis. No intrahepatic biliary dilatation. 3. Patent hepatic vasculature with appropriate directional flow. Signed: Steve Hernandez MD Report Verified Date/Time:07/03/2018 15:18:31 Reading Location: [address] Ultrasound Reading Room Procedure Note Interface, External Ris In - 07/03/2018 3:20 PM CDT FINAL REPORT HISTORY : Elevated bilirubin, abdominal pain COMPARISON : No comparisons available for review COMMENT : Complete ultrasound examination of the abdomen with color Doppler and spectral evaluation of the abdominal vasculature was performed. The liver is normal in size and homogeneous in echo-texture without evidence of a focal mass. The gallbladder contains multiple shadowing echogenic stones. There is no pericholecystic fluid. The gallbladder is nondistended. There is no intrahepatic biliary dilatation. The common bile duct is not visualized likely secondary to overlying bowel gas. The visualized portions of the pancreas are within normal limits. The spleen is normal in size and echo-texture measuring 12 cm. The right kidney measures 12.3 cm and the left kidney 9.5 cm in maximum size. There is no evidence of masses, stones or hydronephrosis. There is a 2.6 cm left renal cyst. There is a right pleural effusion. The abdominal aorta measures to a maximum of 2.0 cm. The main portal vein demonstrates hepatopedal flow and measures 1.2 cm in diameter with a peak systolic velocity of 0.26 m/s. The left and right portal veins demonstrates hepatopedal and hepatopedal flow respectively. No thrombus is identified in the portal veins. The resistive index of the proper hepatic artery is 0.8 with an acceleration time of 0.06 sec. The resistive index of the right hepatic artery is 0.8 and of the left hepatic artery is 0.8. The visualized IVC, hepatic, and splenic veins are patent with appropriate directional flow. IMPRESSION : 1. Cholelithiasis without ultrasonographic evidence of acute cholecystitis. 2. The common bile duct is not visualized. Further evaluation can be obtained with MRCP or ERCP if there is concern for choledocholithiasis. No intrahepatic biliary dilatation. 3. Patent hepatic vasculature with appropriate directional flow. Signed: Steve Hernandez MD Report Verified Date/Time: 07/03/2018 15:18:31 Reading Location: [place] [id number] Ultrasound Reading Room abdomen complete (07/03/2018 2:55 PM) Specimen Performing Laboratory [address] Narrative FINAL REPORT HISTORY : Elevated bilirubin, abdominal pain COMPARISON : No comparisons available for review COMMENT : Complete ultrasound examination of the abdomen with color Doppler and spectral evaluation of the abdominal vasculature was performed. The liver is normal in size and homogeneous in echo-texture without evidence of a focal mass.The gallbladder contains multiple shadowing echogenic stones. There is no pericholecystic fluid. The gallbladder is nondistended. There is no intrahepatic biliary dilatation. The common bile duct is not visualized likely secondary to overlying bowel gas. The visualized portions of the pancreas are within normal limits. The spleen is normal in size and echo-texture measuring 12 cm.The right kidney measures 12.3 cm and the left kidney 9.5 cm in maximum size. There is no evidence of masses, stones or hydronephrosis. There is a 2.6 cm left renal cyst. There is a right pleural effusion. The abdominal aorta measures to a maximum of 2.0 cm. The main portal vein demonstrates hepatopedal flow and measures 1.2 cm in diameter with a peak systolic velocity of 0.26 m/s. The left and right portal veins demonstrates hepatopedal and hepatopedal flow respectively. No thrombus is identified in the portal veins. The resistive index of the proper hepatic artery is 0.8 with an acceleration time of 0.06 sec. The resistive index of the right hepatic artery is 0.8 and of the left hepatic artery is 0.8. The visualized IVC, hepatic, and splenic veins are patent with appropriate directional flow. IMPRESSION : 1. Cholelithiasis without ultrasonographic evidence of acute cholecystitis. 2. The common bile duct is not visualized. Further evaluation can be obtained with MRCP or ERCP if there is concern for choledocholithiasis. No intrahepatic biliary dilatation. 3. Patent hepatic vasculature with appropriate directional flow. Signed: Steve Hernandez MD Report Verified Date/Time:07/04/2018 07:27:18 Reading Location: [address] Ultrasound Reading Room Procedure Note Interface, External Ris In - 07/04/2018 7:27 AM CDT FINAL REPORT HISTORY : Elevated bilirubin, abdominal pain COMPARISON : No comparisons available for review COMMENT : Complete ultrasound examination of the abdomen with color Doppler and spectral evaluation of the abdominal vasculature was performed. The liver is normal in size and homogeneous in echo-texture without evidence of a focal mass. The gallbladder contains multiple shadowing echogenic stones. There is no pericholecystic fluid. The gallbladder is nondistended. There is no intrahepatic biliary dilatation. The common bile duct is not visualized likely secondary to overlying bowel gas. The visualized portions of the pancreas are within normal limits. The spleen is normal in size and echo-texture measuring 12 cm. The right kidney measures 12.3 cm and the left kidney 9.5 cm in maximum size. There is no evidence of masses, stones or hydronephrosis. There is a 2.6 cm left renal cyst. There is a right pleural effusion. The abdominal aorta measures to a maximum of 2.0 cm. The main portal vein demonstrates hepatopedal flow and measures 1.2 cm in diameter with a peak systolic velocity of 0.26 m/s. The left and right portal veins demonstrates hepatopedal and hepatopedal flow respectively. No thrombus is identified in the portal veins. The resistive index of the proper hepatic artery is 0.8 with an acceleration time of 0.06 sec. The resistive index of the right hepatic artery is 0.8 and of the left hepatic artery is 0.8. The visualized IVC, hepatic, and splenic veins are patent with appropriate directional flow. IMPRESSION : 1. Cholelithiasis without ultrasonographic evidence of acute cholecystitis. 2. The common bile duct is not visualized. Further evaluation can be obtained with MRCP or ERCP if there is concern for choledocholithiasis. No intrahepatic biliary dilatation. 3. Patent hepatic vasculature with appropriate directional flow. Signed: Steve Hernandez MD Report Verified Date/Time: 07/04/2018 07:27:18 Reading Location: [facility] [id number] Ultrasound Reading Room B-type Natriuretic Factor (BNP) (07/02/2018 5:53 AM) Component Value Ref Range BNP 689 (H) 0 - 100 pg/mL Specimen Performing Laboratory Blood [address] [address] Hemoglobin A1c (07/01/2018 1:20 AM) Component Value Ref Range Hemoglobin A1C 7.1 (H) 4.3 - 6.1 % Specimen Performing Laboratory Blood [address] [address] Lipid panel (07/01/2018 1:20 AM) Component Value Ref Range Triglycerides 62 mg/dL Cholesterol 145 mg/dL HDL 30 mg/dL LDL Calculated 103 mg/dL Specimen Performing Laboratory Blood [address] [address] Narrative Triglyceride Reference Range: Low Risk <150 [id number] High Risk 200-499 Very High Risk>=500 Cholesterol Reference Range: Low Risk <200 [id number] High Risk>240 HDL Cholesterol Reference Range: Low Risk >=60 High Risk <40 LDL Cholesterol Reference Range: Optimal<100 Near [id number] Very High >=190 TSH/Free T4 If Indicated (06/30/2018 5:59 PM) Component Value Ref Range TSH 3.50 0.35 - 4.94 uIU/mL Specimen Performing Laboratory Blood - Arm, Right [address] [address] after 08/11/2017
--- OUTSIDE RECORDS SUMMARY | 2018-08-12 14:06 | XMS REPORT ---
:1960 [facility] Organization [facility] Address [address] [place] [id number] Care Team Providers Name Role Phone SHAYNA MEREDITH Pierce Unavailable Unavailable Problems This patient has no known problems. Allergies, Adverse Reactions, Alerts This patient has no known allergies or adverse reactions. Medications This patient has no known medications. Results Test Description Test Time Test Comments Text Results Atomic Results Result Comments HEMOGLOBIN AND HEMATOCRIT 2018-07-24 13:29:00 Test Item Value Reference Range Comments HEMOGLOBIN (BEAKER) (test vgcm=466) 9.4 GM/DL 13.7-17.5 HEMATOCRIT (BEAKER) (test rhov=461) 29.2 % 40.1-51.0 POCT-GLUCOSE [id number] 12:50:00 Test Item Value Reference Range Comments POC-GLUCOSE METER (BEAKER) 188 mg/dL 70-110 TESTED AT [facility] [address] [facility] (test urdy=2881) [facility] [address] BASIC METABOLIC [id number] 10:11:00 Test Item Value Reference Range Comments SODIUM (BEAKER) (test 136 meq/L 136-145 deqz=986) POTASSIUM (BEAKER) (test 3.8 meq/L 3.5-5.1 klbj=691) CHLORIDE (BEAKER) (test 98 meq/L 98-107 xecw=526) CO2 (BEAKER) (test 30 meq/L 22-29 iday=452) BLOOD UREA NITROGEN 18 mg/dL 7-21 (BEAKER) (test mrxv=181) CREATININE (BEAKER) (test 1.79 mg/dL 0.57-1.25 bkxl=422) GLUCOSE RANDOM (BEAKER) 125 mg/dL 70-105 (test gqps=653) CALCIUM (BEAKER) (test 9.1 mg/dL 8.4-10.2 dfke=665) EGFR (BEAKER) (test 39 mL/min/1.73 sq m ESTIMATED GFR IS NOT wntb=0765) ACCURATE CREATININE CLEARANCE IN PREDICTING GLOMERULAR FILTRATION RATE. ESTIMATED GFR IS NOT APPLICABLE FOR DIALYSIS PATIENTS. Specimen slightly ictericPOCT-GLUCOSE [id number] 09:55:00 Test Item Value Reference Range Comments POC-GLUCOSE METER (BEAKER) 149 mg/dL 70-110 TESTED AT [facility] [address] [facility] (test eper=3497) [place] [address] PROTHROMBIN [id number] 05:39:00 Test Item Value Reference Range Comments PROTIME (BEAKER) (test mlye=600) 15.8 seconds 11.7-14.7 INR (BEAKER) (test btcs=887) 1.3 <=5.9 RECOMMENDED COUMADIN/WARFARIN INR THERAPY RANGESSTANDARD DOSE: 2.0 - 3.0 Includes: PROPHYLAXIS forvenous thrombosis, systemic embolization; TREATMENT for venous thrombosis and/or pulmonary embolus.HIGH RISK: Target INR is 2.5-3.5 for patients with mechanical heart valves.[id number] 05:31:00 Test Item Value Reference Range Comments MAGNESIUM (BEAKER) (test mrpb=817) 1.5 mg/dL 1.6-2.6 HEPATIC FUNCTION [id number] 05:31:00 Test Item Value Reference Range Comments TOTAL PROTEIN (BEAKER) (test zcii=504) 5.7 gm/dL 6.0-8.3 ALBUMIN (BEAKER) (test hefq=4269) 3.0 g/dL 3.5-5.0 BILIRUBIN TOTAL (BEAKER) (test rgom=303) 1.7 mg/dL 0.2-1.2 BILIRUBIN DIRECT (BEAKER) (test diza=665) 1.1 mg/dL 0.1-0.5 ALKALINE PHOSPHATASE (BEAKER) (test hrmu=076) 122 U/L 40-150 AST (SGOT) (BEAKER) (test kvaq=447) 29 U/L 5-34 ALT (SGPT) (BEAKER) (test lxfy=755) 23 U/L 6-55 CBC W/PLT COUNT & AUTO [id number] 05:15:00 Test Item Value Reference Range Comments WHITE BLOOD CELL COUNT (BEAKER) (test pkvf=512) 10.5 K/ L 3.5-10.5 RED BLOOD CELL COUNT (BEAKER) (test thuw=195) 2.79 M/ L 4.63-6.08 HEMOGLOBIN (BEAKER) (test nmuq=525) 8.4 GM/DL 13.7-17.5 HEMATOCRIT (BEAKER) (test wtoq=089) 26.1 % 40.1-51.0 MEAN CORPUSCULAR VOLUME (BEAKER) (test vmjn=395) 93.5 fL 79.0-92.2 MEAN CORPUSCULAR HEMOGLOBIN (BEAKER) (test 30.1 pg 25.7-32.2 cbex=360) MEAN CORPUSCULAR HEMOGLOBIN CONC (BEAKER) (test 32.2 GM/DL 32.3-36.5 lzur=224) RED CELL DISTRIBUTION WIDTH (BEAKER) (test 16.0 % 11.6-14.4 ntbh=788) PLATELET COUNT (BEAKER) (test spms=445) 257 K/CU MM 150-450 MEAN PLATELET VOLUME (BEAKER) (test tdvr=432) 9.7 fL 9.4-12.4 NUCLEATED RED BLOOD CELLS (BEAKER) (test 0 /100 WBC 0-0 qote=925) NEUTROPHILS RELATIVE PERCENT (BEAKER) (test 67 % sztx=536) LYMPHOCYTES RELATIVE PERCENT (BEAKER) (test 12 % psef=700) MONOCYTES RELATIVE PERCENT (BEAKER) (test 14 % zimd=657) EOSINOPHILS RELATIVE PERCENT (BEAKER) (test 6 % erpg=914) BASOPHILS RELATIVE PERCENT (BEAKER) (test 1 % qvec=518) NEUTROPHILS ABSOLUTE COUNT (BEAKER) (test 7.10 K/ L 1.78-5.38 hpwj=472) LYMPHOCYTES ABSOLUTE COUNT (BEAKER) (test 1.29 K/ L 1.32-3.57 sdhn=278) MONOCYTES ABSOLUTE COUNT (BEAKER) (test 1.42 K/ L 0.30-0.82 cgkp=308) EOSINOPHILS ABSOLUTE COUNT (BEAKER) (test 0.61 K/ L 0.04-0.54 qfiz=416) BASOPHILS ABSOLUTE COUNT (BEAKER) (test 0.05 K/ L 0.01-0.08 snpy=412) IMMATURE GRANULOCYTES-RELATIVE PERCENT (BEAKER) 1 % 0-1 (test jhcy=7892) POCT-GLUCOSE [id number] 21:20:00 Test Item Value Reference Range Comments POC-GLUCOSE METER (BEAKER) 145 mg/dL 70-110 TESTED AT [facility] [address] [facility] (test yyye=1643) [facility] [address] POCT-GLUCOSE [id number] 18:26:00 Test Item Value Reference Range Comments POC-GLUCOSE METER (BEAKER) 145 mg/dL 70-110 TESTED AT [facility] [address] [facility] (test jcxk=3996) [facility] [address] HEMOGLOBIN AND [id number] 18:06:00 Test Item Value Reference Range Comments HEMOGLOBIN (BEAKER) (test kell=289) 9.2 GM/DL 13.7-17.5 HEMATOCRIT (BEAKER) (test joij=670) 28.3 % 40.1-51.0 CBC W/PLT COUNT & AUTO [id number] 13:13:00 Test Item Value Reference Range Comments WHITE BLOOD CELL COUNT (BEAKER) (test qjdd=286) 13.1 K/ L 3.5-10.5 RED BLOOD CELL COUNT (BEAKER) (test upff=480) 2.78 M/ L 4.63-6.08 HEMOGLOBIN (BEAKER) (test zcyu=584) 8.5 GM/DL 13.7-17.5 HEMATOCRIT (BEAKER) (test cedg=865) 26.1 % 40.1-51.0 MEAN CORPUSCULAR VOLUME (BEAKER) (test xcyy=865) 93.9 fL 79.0-92.2 MEAN CORPUSCULAR HEMOGLOBIN (BEAKER) (test 30.6 pg 25.7-32.2 bsyw=629) MEAN CORPUSCULAR HEMOGLOBIN CONC (BEAKER) (test 32.6 GM/DL 32.3-36.5 ugre=433) RED CELL DISTRIBUTION WIDTH (BEAKER) (test 16.1 % 11.6-14.4 ovgb=467) PLATELET COUNT (BEAKER) (test ekwv=897) 257 K/CU MM 150-450 MEAN PLATELET VOLUME (BEAKER) (test mzak=001) 9.8 fL 9.4-12.4 NUCLEATED RED BLOOD CELLS (BEAKER) (test 0 /100 WBC 0-0 ebre=293) (MANUAL DIFFERENTIAL)2018-07-23 13:13:00 Test Item Value Reference Range Comments NEUTROPHILS - REL (DIFF) (BEAKER) (test 85 % klhd=1247) LYMPHOCYTES - REL (DIFF) (BEAKER) (test 9 % bdun=1861) MONOCYTES - REL (DIFF) (BEAKER) (test cvpc=5064) 5 % EOSINOPHILS - REL (DIFF) (BEAKER) (test 1 % pmwo=5249) BASOPHILS - REL (DIFF) (BEAKER) (test xfrc=6813) 0 % NEUTROPHILS - ABS (DIFF) (BEAKER) (test 11.14 K/ L 1.80-8.00 bkex=5009) LYMPHOCYTES - ABS (DIFF) (BEAKER) (test 1.18 K/ L 1.48-4.50 ovvq=9000) MONOCYTES - ABS (DIFF) (BEAKER) (test wljd=1658) 0.66 K/ L 0.00-1.30 EOSINOPHILS - ABS (DIFF) (BEAKER) (test 0.13 K/ L 0.00-0.50 szzt=1871) BASOPHILS - ABS (DIFF) (BEAKER) (test cxab=5758) 0.00 K/ L 0.00-0.20 TOTAL COUNTED (BEAKER) (test ohmi=8074) 100 WBC MORPHOLOGY (BEAKER) (test goxe=761) Normal PLT MORPHOLOGY (BEAKER) (test zuop=598) Normal ANISOCYTOSIS (BEAKER) (test evjk=202) 1+ few MICROCYTES (BEAKER) (test lwdd=308) 1+ few POCT-GLUCOSE [id number] 12:54:00 Test Item Value Reference Range Comments POC-GLUCOSE METER (BEAKER) 146 mg/dL 70-110 TESTED AT [address] (test gqfd=2868) [place] [address] POCT-GLUCOSE [id number] 09:05:00 Test Item Value Reference Range Comments POC-GLUCOSE METER (BEAKER) 143 mg/dL 70-110 TESTED AT [address] (test wjbz=2722) [place] [address] [id number] 07:26:00 Test Item Value Reference Range Comments MAGNESIUM (BEAKER) (test wjfl=395) 1.8 mg/dL 1.6-2.6 BASIC METABOLIC [id number] 07:26:00 Test Item Value Reference Range Comments SODIUM (BEAKER) (test 139 meq/L 136-145 dxqf=683) POTASSIUM (BEAKER) (test 3.4 meq/L 3.5-5.1 xwlc=856) CHLORIDE (BEAKER) (test 101 meq/L 98-107 mcay=148) CO2 (BEAKER) (test 29 meq/L 22-29 tgeo=794) BLOOD UREA NITROGEN 16 mg/dL 7-21 (BEAKER) (test xlgi=106) CREATININE (BEAKER) (test 1.65 mg/dL 0.57-1.25 fjrh=270) GLUCOSE RANDOM (BEAKER) 113 mg/dL 70-105 (test vdia=322) CALCIUM (BEAKER) (test 8.4 mg/dL 8.4-10.2 ekpm=398) EGFR (BEAKER) (test 43 mL/min/1.73 sq m ESTIMATED GFR IS NOT lwis=0212) ACCURATE CREATININE CLEARANCE IN PREDICTING GLOMERULAR FILTRATION RATE. ESTIMATED GFR IS NOT APPLICABLE FOR DIALYSIS PATIENTS. HEPATIC FUNCTION [id number] 07:26:00 Test Item Value Reference Range Comments TOTAL PROTEIN (BEAKER) (test wasu=755) 5.1 gm/dL 6.0-8.3 ALBUMIN (BEAKER) (test nopg=8676) 2.7 g/dL 3.5-5.0 BILIRUBIN TOTAL (BEAKER) (test lbvk=790) 1.6 mg/dL 0.2-1.2 BILIRUBIN DIRECT (BEAKER) (test fniq=561) 0.9 mg/dL 0.1-0.5 ALKALINE PHOSPHATASE (BEAKER) (test rjnu=008) 114 U/L 40-150 AST (SGOT) (BEAKER) (test aryl=550) 30 U/L 5-34 ALT (SGPT) (BEAKER) (test zcbi=183) 25 U/L 6-55 CALCIUM, [id number] 07:09:00 Test Item Value Reference Range Comments CALCIUM IONIZED (BEAKER) (test frbv=222) 1.08 mmol/L 1.12-1.27 PH, BLOOD (BEAKER) (test njqx=1309) 7.52 PROTHROMBIN [id number] 07:07:00 Test Item Value Reference Range Comments PROTIME (BEAKER) (test vtxi=518) 14.9 seconds 11.7-14.7 INR (BEAKER) (test hico=666) 1.2 <=5.9 RECOMMENDED COUMADIN/WARFARIN INR THERAPY RANGESSTANDARD DOSE: 2.0 - 3.0 Includes: PROPHYLAXIS forvenous thrombosis, systemic embolization; TREATMENT for venous thrombosis and/or pulmonary embolus.HIGH RISK: Target INR is 2.5-3.5 for patients with mechanical heart valves.POCT-GLUCOSE [id number] 21:30:00 Test Item Value Reference Range Comments POC-GLUCOSE METER (BEAKER) 133 mg/dL 70-110 TESTED AT [address] (test aaae=6712) [place] [address] POCT-GLUCOSE [id number] 17:52:00 Test Item Value Reference Range Comments POC-GLUCOSE METER (BEAKER) 270 mg/dL 70-110 TESTED AT [address] (test uzgv=2171) [place] [address] HEMOGLOBIN AND [id number] 16:27:00 Test Item Value Reference Range Comments HEMOGLOBIN (BEAKER) (test qkbc=444) 8.9 GM/DL 13.7-17.5 HEMATOCRIT (BEAKER) (test hrag=921) 27.7 % 40.1-51.0 POCT-GLUCOSE [id number] 08:55:00 Test Item Value Reference Range Comments POC-GLUCOSE METER (BEAKER) 132 mg/dL 70-110 TESTED AT [address] (test iaor=2556) [place] [address] POCT-GLUCOSE [id number] 08:49:00 Test Item Value Reference Range Comments POC-GLUCOSE METER (BEAKER) 131 mg/dL 70-110 TESTED AT [address] (test ojkm=1928) [place] [address] [id number] 04:20:00 Test Item Value Reference Range Comments MAGNESIUM (BEAKER) (test znng=116) 1.7 mg/dL 1.6-2.6 BASIC METABOLIC [id number] 04:20:00 Test Item Value Reference Range Comments SODIUM (BEAKER) (test 141 meq/L 136-145 ysvi=425) POTASSIUM (BEAKER) (test 3.4 meq/L 3.5-5.1 wodt=002) CHLORIDE (BEAKER) (test 103 meq/L 98-107 vchu=775) CO2 (BEAKER) (test 28 meq/L 22-29 riig=810) BLOOD UREA NITROGEN 17 mg/dL 7-21 (BEAKER) (test mhdk=945) CREATININE (BEAKER) (test 1.76 mg/dL 0.57-1.25 vqrf=683) GLUCOSE RANDOM (BEAKER) 111 mg/dL 70-105 (test ixxn=876) CALCIUM (BEAKER) (test 8.9 mg/dL 8.4-10.2 goox=530) EGFR (BEAKER) (test 40 mL/min/1.73 sq m ESTIMATED GFR IS NOT tvtq=6000) ACCURATE CREATININE CLEARANCE IN PREDICTING GLOMERULAR FILTRATION RATE. ESTIMATED GFR IS NOT APPLICABLE FOR DIALYSIS PATIENTS. HEPATIC FUNCTION [id number] 04:20:00 Test Item Value Reference Range Comments TOTAL PROTEIN (BEAKER) (test nwad=044) 5.7 gm/dL 6.0-8.3 ALBUMIN (BEAKER) (test hymo=8012) 3.1 g/dL 3.5-5.0 BILIRUBIN TOTAL (BEAKER) (test ibtv=858) 1.6 mg/dL 0.2-1.2 BILIRUBIN DIRECT (BEAKER) (test whsc=255) 1.0 mg/dL 0.1-0.5 ALKALINE PHOSPHATASE (BEAKER) (test udss=158) 134 U/L 40-150 AST (SGOT) (BEAKER) (test bfbq=279) 44 U/L 5-34 ALT (SGPT) (BEAKER) (test cdes=567) 30 U/L 6-55 CBC W/PLT COUNT & AUTO [id number] 04:16:00 Test Item Value Reference Range Comments WHITE BLOOD CELL COUNT (BEAKER) (test mtfi=111) 12.3 K/ L 3.5-10.5 RED BLOOD CELL COUNT (BEAKER) (test wyjs=037) 2.97 M/ L 4.63-6.08 HEMOGLOBIN (BEAKER) (test vary=436) 9.0 GM/DL 13.7-17.5 HEMATOCRIT (BEAKER) (test bhhb=996) 28.6 % 40.1-51.0 MEAN CORPUSCULAR VOLUME (BEAKER) (test uwvg=359) 96.3 fL 79.0-92.2 MEAN CORPUSCULAR HEMOGLOBIN (BEAKER) (test 30.3 pg 25.7-32.2 zcxi=944) MEAN CORPUSCULAR HEMOGLOBIN CONC (BEAKER) (test 31.5 GM/DL 32.3-36.5 ogam=893) RED CELL DISTRIBUTION WIDTH (BEAKER) (test 16.2 % 11.6-14.4 frqe=634) PLATELET COUNT (BEAKER) (test jywj=415) 293 K/CU MM 150-450 MEAN PLATELET VOLUME (BEAKER) (test fcso=760) 9.7 fL 9.4-12.4 NUCLEATED RED BLOOD CELLS (BEAKER) (test 0 /100 WBC 0-0 mvff=421) NEUTROPHILS RELATIVE PERCENT (BEAKER) (test 73 % seto=693) LYMPHOCYTES RELATIVE PERCENT (BEAKER) (test 11 % zava=597) MONOCYTES RELATIVE PERCENT (BEAKER) (test 11 % mqla=260) EOSINOPHILS RELATIVE PERCENT (BEAKER) (test 4 % mnxn=729) BASOPHILS RELATIVE PERCENT (BEAKER) (test 0 % ltoi=714) NEUTROPHILS ABSOLUTE COUNT (BEAKER) (test 8.96 K/ L 1.78-5.38 pmvr=242) LYMPHOCYTES ABSOLUTE COUNT (BEAKER) (test 1.36 K/ L 1.32-3.57 cwig=084) MONOCYTES ABSOLUTE COUNT (BEAKER) (test 1.31 K/ L 0.30-0.82 twwm=923) EOSINOPHILS ABSOLUTE COUNT (BEAKER) (test 0.51 K/ L 0.04-0.54 dgbl=294) BASOPHILS ABSOLUTE COUNT (BEAKER) (test 0.05 K/ L 0.01-0.08 mlfa=325) IMMATURE GRANULOCYTES-RELATIVE PERCENT (BEAKER) 1 % 0-1 (test uvda=6651) [id number] 04:06:00 Test Item Value Reference Range Comments D-DIMER QUANTITATIVE (BEAKER) (test qdto=799) 2.14 MG/L FEU <0.50 Intended Use: The D-Dimer Assay can be used to aid in the diagnosis of Deep Vein Thrombosis (DVT) and Pulmonary Embolism Disease (PED).In patients with low pre-test probability, various studies concerning STA Liatest D-dimer test have reported that with a cutoff value of 0.50 MG/L FEU, the Negative Predictive Value (NPV) regarding the exclusion of thrombosis is within 95-100% range.[id number] 04:04:00 Test Item Value Reference Range Comments FIBRINOGEN LEVEL (BEAKER) (test dpfh=302) 426 mg/dl 225-434 [id number] 04:04:00 Test Item Value Reference Range Comments PROTIME (BEAKER) (test rjcw=312) 15.0 seconds 11.7-14.7 INR (BEAKER) (test dnfe=024) 1.2 <=5.9 PARTIAL THROMBOPLASTIN TIME (BEAKER) (test 31.7 seconds 22.5-36.0 lxlk=717) RECOMMENDED COUMADIN/WARFARIN INR THERAPY RANGESSTANDARD DOSE: 2.0 - 3.0 Includes: PROPHYLAXIS forvenous thrombosis, systemic embolization; TREATMENT for venous thrombosis and/or pulmonary embolus.HIGH RISK: Target INR is 2.5-3.5 for patients with mechanical heart valves.PLATELET [id number] 03:59:00 Test Item Value Reference Range Comments PLATELET COUNT (BEAKER) (test hcun=057) 293 K/CU MM 150-450 HEMOGLOBIN AND [id number] 03:59:00 Test Item Value Reference Range Comments HEMOGLOBIN (BEAKER) (test iheo=553) 9.0 GM/DL 13.7-17.5 HEMATOCRIT (BEAKER) (test gcin=005) 28.6 % 40.1-51.0 POCT-GLUCOSE [id number] 22:54:00 Test Item Value Reference Range Comments POC-GLUCOSE METER (BEAKER) 169 mg/dL 70-110 TESTED AT [address] (test bzxm=0774) [facility] [address] POCT-GLUCOSE [id number] 17:50:00 Test Item Value Reference Range Comments POC-GLUCOSE METER (BEAKER) 162 mg/dL 70-110 TESTED AT [address] (test fmtz=0320) [facility] [address] HEMOGLOBIN AND [id number] 12:54:00 Test Item Value Reference Range Comments HEMOGLOBIN (BEAKER) (test hvhs=748) 8.9 GM/DL 13.7-17.5 HEMATOCRIT (BEAKER) (test jxbm=474) 28.0 % 40.1-51.0 [id number] 06:09:00 Test Item Value Reference Range Comments MAGNESIUM (BEAKER) (test wlgh=323) 1.4 mg/dL 1.6-2.6 BASIC METABOLIC [id number] 06:09:00 Test Item Value Reference Range Comments SODIUM (BEAKER) (test 141 meq/L 136-145 mgpe=880) POTASSIUM (BEAKER) (test 3.3 meq/L 3.5-5.1 yzkp=046) CHLORIDE (BEAKER) (test 103 meq/L 98-107 ncck=459) CO2 (BEAKER) (test 31 meq/L 22-29 gwtp=157) BLOOD UREA NITROGEN 16 mg/dL 7-21 (BEAKER) (test eppu=565) CREATININE (BEAKER) (test 1.65 mg/dL 0.57-1.25 tgwr=480) GLUCOSE RANDOM (BEAKER) 155 mg/dL 70-105 (test jpsq=632) CALCIUM (BEAKER) (test 8.3 mg/dL 8.4-10.2 vrpa=932) EGFR (BEAKER) (test 43 mL/min/1.73 sq m ESTIMATED GFR IS NOT iccs=2521) ACCURATE CREATININE CLEARANCE IN PREDICTING GLOMERULAR FILTRATION RATE. ESTIMATED GFR IS NOT APPLICABLE FOR DIALYSIS PATIENTS. HEPATIC FUNCTION [id number] 06:09:00 Test Item Value Reference Range Comments TOTAL PROTEIN (BEAKER) (test lerj=770) 4.9 gm/dL 6.0-8.3 ALBUMIN (BEAKER) (test tjvl=0723) 2.8 g/dL 3.5-5.0 BILIRUBIN TOTAL (BEAKER) (test zita=662) 1.2 mg/dL 0.2-1.2 BILIRUBIN DIRECT (BEAKER) (test qmoy=521) 0.9 mg/dL 0.1-0.5 ALKALINE PHOSPHATASE (BEAKER) (test zfks=672) 130 U/L 40-150 AST (SGOT) (BEAKER) (test wkjv=983) 42 U/L 5-34 ALT (SGPT) (BEAKER) (test zxxh=154) 26 U/L 6-55 PROTHROMBIN [id number] 06:03:00 Test Item Value Reference Range Comments PROTIME (BEAKER) (test yixx=735) 15.8 seconds 11.7-14.7 INR (BEAKER) (test cxed=770) 1.3 <=5.9 RECOMMENDED COUMADIN/WARFARIN INR THERAPY RANGESSTANDARD DOSE: 2.0 - 3.0 Includes: PROPHYLAXIS forvenous thrombosis, systemic embolization; TREATMENT for venous thrombosis and/or pulmonary embolus.HIGH RISK: Target INR is 2.5-3.5 for patients with mechanical heart valves.CBC W/PLT COUNT & AUTO [id number] 05:43:00 Test Item Value Reference Range Comments WHITE BLOOD CELL COUNT (BEAKER) (test iqpy=585) 11.7 K/ L 3.5-10.5 RED BLOOD CELL COUNT (BEAKER) (test uitc=685) 2.61 M/ L 4.63-6.08 HEMOGLOBIN (BEAKER) (test pkmq=965) 7.8 GM/DL 13.7-17.5 HEMATOCRIT (BEAKER) (test qheo=755) 24.8 % 40.1-51.0 MEAN CORPUSCULAR VOLUME (BEAKER) (test ulqv=324) 95.0 fL 79.0-92.2 MEAN CORPUSCULAR HEMOGLOBIN (BEAKER) (test 29.9 pg 25.7-32.2 qmpi=481) MEAN CORPUSCULAR HEMOGLOBIN CONC (BEAKER) (test 31.5 GM/DL 32.3-36.5 wwgt=417) RED CELL DISTRIBUTION WIDTH (BEAKER) (test 16.3 % 11.6-14.4 brjd=695) PLATELET COUNT (BEAKER) (test zvkf=595) 281 K/CU MM 150-450 MEAN PLATELET VOLUME (BEAKER) (test lobk=217) 9.8 fL 9.4-12.4 NUCLEATED RED BLOOD CELLS (BEAKER) (test 0 /100 WBC 0-0 oppq=612) NEUTROPHILS RELATIVE PERCENT (BEAKER) (test 71 % dmco=492) LYMPHOCYTES RELATIVE PERCENT (BEAKER) (test 15 % uxzf=876) MONOCYTES RELATIVE PERCENT (BEAKER) (test 10 % clqg=487) EOSINOPHILS RELATIVE PERCENT (BEAKER) (test 4 % axux=503) BASOPHILS RELATIVE PERCENT (BEAKER) (test 0 % iwii=684) NEUTROPHILS ABSOLUTE COUNT (BEAKER) (test 8.28 K/ L 1.78-5.38 nymd=500) LYMPHOCYTES ABSOLUTE COUNT (BEAKER) (test 1.79 K/ L 1.32-3.57 lyrc=944) MONOCYTES ABSOLUTE COUNT (BEAKER) (test 1.13 K/ L 0.30-0.82 hbui=869) EOSINOPHILS ABSOLUTE COUNT (BEAKER) (test 0.41 K/ L 0.04-0.54 ieef=475) BASOPHILS ABSOLUTE COUNT (BEAKER) (test 0.04 K/ L 0.01-0.08 tbbl=228) IMMATURE GRANULOCYTES-RELATIVE PERCENT (BEAKER) 1 % 0-1 (test twyb=9351) HEMOGLOBIN AND [id number] 18:54:00 Test Item Value Reference Range Comments HEMOGLOBIN (BEAKER) (test ttpd=062) 9.9 GM/DL 13.7-17.5 HEMATOCRIT (BEAKER) (test yuai=245) 32.6 % 40.1-51.0 BLOOD [id number] 18:00:00 Test Item Value Reference Range Comments CULTURE (BEAKER) (test bsom=7638) No growth in 5 days HEMOGLOBIN AND [id number] 16:03:00 Test Item Value Reference Range Comments HEMOGLOBIN (BEAKER) (test vmsz=149) 9.4 GM/DL 13.7-17.5 HEMATOCRIT (BEAKER) (test icya=597) 28.9 % 40.1-51.0 CBC W/PLT COUNT & AUTO [id number] 09:17:00 Test Item Value Reference Range Comments WHITE BLOOD CELL COUNT (BEAKER) (test ysib=525) 11.4 K/ L 3.5-10.5 RED BLOOD CELL COUNT (BEAKER) (test ybxo=463) 3.03 M/ L 4.63-6.08 HEMOGLOBIN (BEAKER) (test eadu=104) 9.3 GM/DL 13.7-17.5 HEMATOCRIT (BEAKER) (test jrmr=685) 28.7 % 40.1-51.0 MEAN CORPUSCULAR VOLUME (BEAKER) (test elvg=205) 94.7 fL 79.0-92.2 MEAN CORPUSCULAR HEMOGLOBIN (BEAKER) (test 30.7 pg 25.7-32.2 bocw=334) MEAN CORPUSCULAR HEMOGLOBIN CONC (BEAKER) (test 32.4 GM/DL 32.3-36.5 zhry=445) RED CELL DISTRIBUTION WIDTH (BEAKER) (test 16.1 % 11.6-14.4 uixo=405) PLATELET COUNT (BEAKER) (test hlym=138) 244 K/CU MM 150-450 MEAN PLATELET VOLUME (BEAKER) (test qjwg=342) 10.1 fL 9.4-12.4 NUCLEATED RED BLOOD CELLS (BEAKER) (test 0 /100 WBC 0-0 cunu=217) NEUTROPHILS RELATIVE PERCENT (BEAKER) (test 74 % yjps=211) LYMPHOCYTES RELATIVE PERCENT (BEAKER) (test 11 % iqny=813) MONOCYTES RELATIVE PERCENT (BEAKER) (test 9 % tpjd=209) EOSINOPHILS RELATIVE PERCENT (BEAKER) (test 4 % txwt=166) BASOPHILS RELATIVE PERCENT (BEAKER) (test 0 % uoop=695) NEUTROPHILS ABSOLUTE COUNT (BEAKER) (test 8.50 K/ L 1.78-5.38 lzqs=900) LYMPHOCYTES ABSOLUTE COUNT (BEAKER) (test 1.27 K/ L 1.32-3.57 jhhi=193) MONOCYTES ABSOLUTE COUNT (BEAKER) (test 1.06 K/ L 0.30-0.82 lwhf=528) EOSINOPHILS ABSOLUTE COUNT (BEAKER) (test 0.46 K/ L 0.04-0.54 cbdg=817) BASOPHILS ABSOLUTE COUNT (BEAKER) (test 0.05 K/ L 0.01-0.08 kwqe=738) IMMATURE GRANULOCYTES-RELATIVE PERCENT (BEAKER) 1 % 0-1 (test rbhx=8458) PROTHROMBIN [id number] 08:38:00 Test Item Value Reference Range Comments PROTIME (BEAKER) (test xxgu=600) 14.7 seconds 11.7-14.7 INR (BEAKER) (test diyl=538) 1.2 <=5.9 RECOMMENDED COUMADIN/WARFARIN INR THERAPY RANGESSTANDARD DOSE: 2.0 - 3.0 Includes: PROPHYLAXIS forvenous thrombosis, systemic embolization; TREATMENT for venous thrombosis and/or pulmonary embolus.HIGH RISK: Target INR is 2.5-3.5 for patients with mechanical heart valves.BASIC METABOLIC [id number] 07:46: 00 Test Item Value Reference Range Comments SODIUM (BEAKER) (test 137 meq/L 136-145 eyne=824) POTASSIUM (BEAKER) (test 4.1 meq/L 3.5-5.1 Specimen moderately yliv=819) hemolyzed CHLORIDE (BEAKER) (test 103 meq/L 98-107 ppxp=141) CO2 (BEAKER) (test 22 meq/L 22-29 qsvf=688) BLOOD UREA NITROGEN 13 mg/dL 7-21 (BEAKER) (test aajy=298) CREATININE (BEAKER) (test 1.56 mg/dL 0.57-1.25 Specimen moderately hxne=196) hemolyzed GLUCOSE RANDOM (BEAKER) 114 mg/dL 70-105 (test yxlh=987) CALCIUM (BEAKER) (test 9.1 mg/dL 8.4-10.2 sxqc=472) EGFR (BEAKER) (test 46 mL/min/1.73 sq m ESTIMATED GFR IS NOT ruhd=0188) ACCURATE CREATININE CLEARANCE IN PREDICTING GLOMERULAR FILTRATION RATE. ESTIMATED GFR IS NOT APPLICABLE FOR DIALYSIS PATIENTS. PROTHROMBIN [id number] 06:45:00 Test Item Value Reference Range Comments PROTIME (BEAKER) (test oluz=221) 14.5 seconds 11.7-14.7 INR (BEAKER) (test qaik=622) 1.1 <=5.9 RECOMMENDED COUMADIN/WARFARIN INR THERAPY RANGESSTANDARD DOSE: 2.0 - 3.0 Includes: PROPHYLAXIS forvenous thrombosis, systemic embolization; TREATMENT for venous thrombosis and/or pulmonary embolus.HIGH RISK: Target INR is 2.5-3.5 for patients with mechanical heart valves.[id number] 05:11:00 Test Item Value Reference Range Comments MAGNESIUM (BEAKER) (test 1.8 mg/dL 1.6-2.6 Specimen moderately hemolyzed bunj=581) HEPATIC FUNCTION [id number] 05:11:00 Test Item Value Reference Range Comments TOTAL PROTEIN (BEAKER) (test 6.2 gm/dL 6.0-8.3 Specimen moderately hemolyzed wrjr=355) ALBUMIN (BEAKER) (test 3.1 g/dL 3.5-5.0 Specimen moderately hemolyzed hqii=1405) BILIRUBIN TOTAL (BEAKER) (test 2.0 mg/dL 0.2-1.2 Specimen moderately hemolyzed vukz=435) BILIRUBIN DIRECT (BEAKER) 0.8 mg/dL 0.1-0.5 Specimen moderately hemolyzed (test fqmr=360) ALKALINE PHOSPHATASE (BEAKER) 155 U/L 40-150 (test huwj=180) AST (SGOT) (BEAKER) (test 54 U/L 5-34 Specimen moderately hemolyzed syhc=748) ALT (SGPT) (BEAKER) (test 29 U/L 6-55 Specimen moderately thhc=332) hemolyzed [id number] 06:06:00 Test Item Value Reference Range Comments MAGNESIUM (BEAKER) (test iojn=997) 1.6 mg/dL 1.6-2.6 BASIC METABOLIC [id number] 06:06:00 Test Item Value Reference Range Comments SODIUM (BEAKER) (test 141 meq/L 136-145 fmlt=989) POTASSIUM (BEAKER) (test 3.6 meq/L 3.5-5.1 dhwo=608) CHLORIDE (BEAKER) (test 105 meq/L 98-107 baqc=821) CO2 (BEAKER) (test 27 meq/L 22-29 iakk=971) BLOOD UREA NITROGEN 13 mg/dL 7-21 (BEAKER) (test glzs=501) CREATININE (BEAKER) (test 1.39 mg/dL 0.57-1.25 jwzq=146) GLUCOSE RANDOM (BEAKER) 128 mg/dL 70-105 (test dyur=681) CALCIUM (BEAKER) (test 8.4 mg/dL 8.4-10.2 icvw=479) EGFR (BEAKER) (test 53 mL/min/1.73 sq m ESTIMATED GFR IS NOT pyiq=6485) ACCURATE CREATININE CLEARANCE IN PREDICTING GLOMERULAR FILTRATION RATE. ESTIMATED GFR IS NOT APPLICABLE FOR DIALYSIS PATIENTS. HEPATIC FUNCTION [id number] 06:06:00 Test Item Value Reference Range Comments TOTAL PROTEIN (BEAKER) (test dwto=242) 4.9 gm/dL 6.0-8.3 ALBUMIN (BEAKER) (test lgzu=1288) 2.8 g/dL 3.5-5.0 BILIRUBIN TOTAL (BEAKER) (test kllx=628) 1.7 mg/dL 0.2-1.2 BILIRUBIN DIRECT (BEAKER) (test tcny=031) 1.2 mg/dL 0.1-0.5 ALKALINE PHOSPHATASE (BEAKER) (test fubv=734) 122 U/L 40-150 AST (SGOT) (BEAKER) (test luxr=962) 33 U/L 5-34 ALT (SGPT) (BEAKER) (test wnsj=759) 22 U/L 6-55 PROTHROMBIN [id number] 05:51:00 Test Item Value Reference Range Comments PROTIME (BEAKER) (test sflo=489) 15.8 seconds 11.7-14.7 INR (BEAKER) (test uiwq=813) 1.3 <=5.9 RECOMMENDED COUMADIN/WARFARIN INR THERAPY RANGESSTANDARD DOSE: 2.0 - 3.0 Includes: PROPHYLAXIS forvenous thrombosis, systemic embolization; TREATMENT for venous thrombosis and/or pulmonary embolus.HIGH RISK: Target INR is 2.5-3.5 for patients with mechanical heart valves.CBC W/PLT COUNT & AUTO [id number] 05:48:00 Test Item Value Reference Range Comments WHITE BLOOD CELL COUNT (BEAKER) (test kfsl=603) 9.3 K/ L 3.5-10.5 RED BLOOD CELL COUNT (BEAKER) (test uthz=348) 2.80 M/ L 4.63-6.08 HEMOGLOBIN (BEAKER) (test todn=184) 8.6 GM/DL 13.7-17.5 HEMATOCRIT (BEAKER) (test pxgw=228) 26.5 % 40.1-51.0 MEAN CORPUSCULAR VOLUME (BEAKER) (test zhww=221) 94.6 fL 79.0-92.2 MEAN CORPUSCULAR HEMOGLOBIN (BEAKER) (test 30.7 pg 25.7-32.2 ypki=933) MEAN CORPUSCULAR HEMOGLOBIN CONC (BEAKER) (test 32.5 GM/DL 32.3-36.5 qmuf=384) RED CELL DISTRIBUTION WIDTH (BEAKER) (test 16.0 % 11.6-14.4 ihjb=642) PLATELET COUNT (BEAKER) (test drie=285) 224 K/CU MM 150-450 MEAN PLATELET VOLUME (BEAKER) (test craz=562) 10.1 fL 9.4-12.4 NUCLEATED RED BLOOD CELLS (BEAKER) (test 0 /100 WBC 0-0 rifa=420) NEUTROPHILS RELATIVE PERCENT (BEAKER) (test 66 % bqlb=174) LYMPHOCYTES RELATIVE PERCENT (BEAKER) (test 16 % mgal=291) MONOCYTES RELATIVE PERCENT (BEAKER) (test 9 % mevy=534) EOSINOPHILS RELATIVE PERCENT (BEAKER) (test 8 % hhvq=750) BASOPHILS RELATIVE PERCENT (BEAKER) (test 0 % sybs=817) NEUTROPHILS ABSOLUTE COUNT (BEAKER) (test 6.14 K/ L 1.78-5.38 itjd=428) LYMPHOCYTES ABSOLUTE COUNT (BEAKER) (test 1.49 K/ L 1.32-3.57 jphu=221) MONOCYTES ABSOLUTE COUNT (BEAKER) (test 0.79 K/ L 0.30-0.82 dapf=714) EOSINOPHILS ABSOLUTE COUNT (BEAKER) (test 0.76 K/ L 0.04-0.54 ovmu=691) BASOPHILS ABSOLUTE COUNT (BEAKER) (test 0.03 K/ L 0.01-0.08 pfik=323) IMMATURE GRANULOCYTES-RELATIVE PERCENT (BEAKER) 1 % 0-1 (test lifn=9041) HEMOGLOBIN AND [id number] 00:16:00 Test Item Value Reference Range Comments HEMOGLOBIN (BEAKER) (test rlvv=724) 8.8 GM/DL 13.7-17.5 HEMATOCRIT (BEAKER) (test cijf=458) 27.1 % 40.1-51.0 HEMOGLOBIN AND [id number] 17:32:00 Test Item Value Reference Range Comments HEMOGLOBIN (BEAKER) (test osju=363) 8.8 GM/DL 13.7-17.5 HEMATOCRIT (BEAKER) (test octm=055) 27.5 % 40.1-51.0 RAD, CHEST, 1 VIEW, NON [id number] 10:38:00Reason for exam:->HFShould this be performed at the bedside?->YesFINAL REPORT CLINICAL HISTORY: HF TECHNIQUE: 1 view of the chest. COMPARISON: 07/15/2018 IMPRESSION: The ETT has been removed. The right-sided dialysis catheter remains in the SVC. Pulmonary vascular congestion appears increased with increased bilateral airspace opacities. Thereis a new small left pleural effusion. The cardiomediastinal silhouette is magnified by technique with sternotomy wires. Signed: Gina Spears MDReport Verified Date/Time: 07/18/2018 10:38:16 Reading Location: [facility] Radiology Reading Room Electronically signed by: GINA SPEARS M.D. on07/18/2018 10:38 AMHEMOGLOBIN AND [id number] 10 :12:00 Test Item Value Reference Range Comments HEMOGLOBIN (BEAKER) (test wpmf=516) 7.8 GM/DL 13.7-17.5 HEMATOCRIT (BEAKER) (test kwqm=201) 24.5 % 40.1-51.0 [id number] 04:04:00 Test Item Value Reference Range Comments MAGNESIUM (BEAKER) (test sior=802) 1.9 mg/dL 1.6-2.6 BASIC METABOLIC [id number] 04:04:00 Test Item Value Reference Range Comments SODIUM (BEAKER) (test 141 meq/L 136-145 wmrw=169) POTASSIUM (BEAKER) (test 3.6 meq/L 3.5-5.1 yrab=714) CHLORIDE (BEAKER) (test 109 meq/L 98-107 amtk=582) CO2 (BEAKER) (test 26 meq/L 22-29 eyjb=057) BLOOD UREA NITROGEN 15 mg/dL 7-21 (BEAKER) (test vstr=664) CREATININE (BEAKER) (test 1.44 mg/dL 0.57-1.25 neus=758) GLUCOSE RANDOM (BEAKER) 120 mg/dL 70-105 (test ycol=352) CALCIUM (BEAKER) (test 8.2 mg/dL 8.4-10.2 kipq=209) EGFR (BEAKER) (test 51 mL/min/1.73 sq m ESTIMATED GFR IS NOT wbjm=2171) ACCURATE CREATININE CLEARANCE IN PREDICTING GLOMERULAR FILTRATION RATE. ESTIMATED GFR IS NOT APPLICABLE FOR DIALYSIS PATIENTS. HEPATIC FUNCTION [id number] 04:04:00 Test Item Value Reference Range Comments TOTAL PROTEIN (BEAKER) (test yxyz=573) 5.0 gm/dL 6.0-8.3 ALBUMIN (BEAKER) (test lpmq=2126) 2.8 g/dL 3.5-5.0 BILIRUBIN TOTAL (BEAKER) (test lmbx=842) 1.8 mg/dL 0.2-1.2 BILIRUBIN DIRECT (BEAKER) (test ybxy=801) 1.4 mg/dL 0.1-0.5 ALKALINE PHOSPHATASE (BEAKER) (test fiqf=257) 125 U/L 40-150 AST (SGOT) (BEAKER) (test beya=642) 31 U/L 5-34 ALT (SGPT) (BEAKER) (test jmzu=504) 22 U/L 6-55 PROTHROMBIN [id number] 04:00:00 Test Item Value Reference Range Comments PROTIME (BEAKER) (test hdin=900) 15.5 seconds 11.7-14.7 INR (BEAKER) (test buxb=672) 1.2 <=5.9 RECOMMENDED COUMADIN/WARFARIN INR THERAPY RANGESSTANDARD DOSE: 2.0 - 3.0 Includes: PROPHYLAXIS forvenous thrombosis, systemic embolization; TREATMENT for venous thrombosis and/or pulmonary embolus.HIGH RISK: Target INR is 2.5-3.5 for patients with mechanical heart valves.CBC W/PLT COUNT & AUTO [id number] 03:46:00 Test Item Value Reference Range Comments WHITE BLOOD CELL COUNT (BEAKER) (test dbpo=270) 11.1 K/ L 3.5-10.5 RED BLOOD CELL COUNT (BEAKER) (test ntzp=987) 2.92 M/ L 4.63-6.08 HEMOGLOBIN (BEAKER) (test inrk=547) 8.8 GM/DL 13.7-17.5 HEMATOCRIT (BEAKER) (test fpcx=230) 27.3 % 40.1-51.0 MEAN CORPUSCULAR VOLUME (BEAKER) (test zbdp=041) 93.5 fL 79.0-92.2 MEAN CORPUSCULAR HEMOGLOBIN (BEAKER) (test 30.1 pg 25.7-32.2 tzff=261) MEAN CORPUSCULAR HEMOGLOBIN CONC (BEAKER) (test 32.2 GM/DL 32.3-36.5 ouzj=471) RED CELL DISTRIBUTION WIDTH (BEAKER) (test 15.5 % 11.6-14.4 xcux=528) PLATELET COUNT (BEAKER) (test fsoz=743) 186 K/CU MM 150-450 MEAN PLATELET VOLUME (BEAKER) (test qpcd=262) 9.7 fL 9.4-12.4 NUCLEATED RED BLOOD CELLS (BEAKER) (test 0 /100 WBC 0-0 wrzf=950) NEUTROPHILS RELATIVE PERCENT (BEAKER) (test 68 % orql=876) LYMPHOCYTES RELATIVE PERCENT (BEAKER) (test 14 % ytqh=234) MONOCYTES RELATIVE PERCENT (BEAKER) (test 11 % tgub=704) EOSINOPHILS RELATIVE PERCENT (BEAKER) (test 6 % ogkm=137) BASOPHILS RELATIVE PERCENT (BEAKER) (test 0 % dqiy=890) NEUTROPHILS ABSOLUTE COUNT (BEAKER) (test 7.55 K/ L 1.78-5.38 ynpf=119) LYMPHOCYTES ABSOLUTE COUNT (BEAKER) (test 1.54 K/ L 1.32-3.57 lrvk=208) MONOCYTES ABSOLUTE COUNT (BEAKER) (test 1.21 K/ L 0.30-0.82 eyru=681) EOSINOPHILS ABSOLUTE COUNT (BEAKER) (test 0.64 K/ L 0.04-0.54 rqqy=925) BASOPHILS ABSOLUTE COUNT (BEAKER) (test 0.01 K/ L 0.01-0.08 xgzj=666) IMMATURE GRANULOCYTES-RELATIVE PERCENT (BEAKER) 1 % 0-1 (test uugr=0602) HEMOGLOBIN AND [id number] 00:32:00 Test Item Value Reference Range Comments HEMOGLOBIN (BEAKER) (test bimi=284) 9.0 GM/DL 13.7-17.5 HEMATOCRIT (BEAKER) (test frau=331) 27.8 % 40.1-51.0 [id number] 18:36:00 Test Item Value Reference Range Comments MAGNESIUM (BEAKER) (test 2.2 mg/dL 1.6-2.6 Specimen slightly hemolyzed gtlk=281) [id number] 18:36:00 Test Item Value Reference Range Comments POTASSIUM (BEAKER) (test 4.3 meq/L 3.5-5.1 Specimen slightly hemolyzed qrkn=279) FL, [id number] 18:08:00INTRA OP IMAGINGReason for exam:->abnormal imagingFINAL REPORT ERCP 1 view 07/17/2018 6:06 PM CLINICAL HISTORY: Instrument localization COMPARISON: None available IMPRESSION : Please correlate imaging report findings with the procedure note prepared by Dr. Santacruz, as an intra-procedure imaging consultation was not requested. Reported fluoroscopy time: 233.8 seconds. Signed: Farhad Meza Verified Date/Time: 07/17/2018 18:08:25 Reading Location: [facility] Radiology Reading Room Electronically signed by: FARHAD MEZA M.D. on 06:08 PMHEMOGLOBIN AND [id number] 18:03:00 Test Item Value Reference Range Comments HEMOGLOBIN (BEAKER) (test geeb=857) 9.2 GM/DL 13.7-17.5 HEMATOCRIT (BEAKER) (test nrgf=084) 28.1 % 40.1-51.0 [id number] 09:33:00 Test Item Value Reference Range Comments POTASSIUM (BEAKER) (test qyig=827) 3.4 meq/L 3.5-5.1 [id number] 09:33:00 Test Item Value Reference Range Comments MAGNESIUM (BEAKER) (test tbdj=190) 2.0 mg/dL 1.6-2.6 HEMOGLOBIN AND [id number] 09:20:00 Test Item Value Reference Range Comments HEMOGLOBIN (BEAKER) (test yuyv=173) 8.9 GM/DL 13.7-17.5 HEMATOCRIT (BEAKER) (test qkad=984) 26.9 % 40.1-51.0 PROTHROMBIN [id number] 06:45:00 Test Item Value Reference Range Comments PROTIME (BEAKER) (test udhr=596) 16.9 seconds 11.7-14.7 INR (BEAKER) (test lrif=545) 1.4 <=5.9 RECOMMENDED COUMADIN/WARFARIN INR THERAPY RANGESSTANDARD DOSE: 2.0 - 3.0 Includes: PROPHYLAXIS forvenous thrombosis, systemic embolization; TREATMENT for venous thrombosis and/or pulmonary embolus.HIGH RISK: Target INR is 2.5-3.5 for patients with mechanical heart valves.BASIC METABOLIC [id number] 03:44: 00 Test Item Value Reference Range Comments SODIUM (BEAKER) (test 141 meq/L 136-145 ionq=172) POTASSIUM (BEAKER) (test 3.1 meq/L 3.5-5.1 lwdt=419) CHLORIDE (BEAKER) (test 106 meq/L 98-107 beuo=105) CO2 (BEAKER) (test 29 meq/L 22-29 tzhu=006) BLOOD UREA NITROGEN 21 mg/dL 7-21 (BEAKER) (test plqo=382) CREATININE (BEAKER) (test 1.78 mg/dL 0.57-1.25 ljnq=692) GLUCOSE RANDOM (BEAKER) 176 mg/dL 70-105 (test edwv=063) CALCIUM (BEAKER) (test 7.8 mg/dL 8.4-10.2 jvdx=602) EGFR (BEAKER) (test 40 mL/min/1.73 sq m ESTIMATED GFR IS NOT umkh=2553) ACCURATE CREATININE CLEARANCE IN PREDICTING GLOMERULAR FILTRATION RATE. ESTIMATED GFR IS NOT APPLICABLE FOR DIALYSIS PATIENTS. [id number] 03:36:00 Test Item Value Reference Range Comments MAGNESIUM (BEAKER) (test lmig=725) 2.3 mg/dL 1.6-2.6 HEPATIC FUNCTION [id number] 03:36:00 Test Item Value Reference Range Comments TOTAL PROTEIN (BEAKER) (test qwcv=301) 4.5 gm/dL 6.0-8.3 ALBUMIN (BEAKER) (test hwph=5505) 2.6 g/dL 3.5-5.0 BILIRUBIN TOTAL (BEAKER) (test wcmr=642) 1.7 mg/dL 0.2-1.2 BILIRUBIN DIRECT (BEAKER) (test bnqv=170) 1.3 mg/dL 0.1-0.5 ALKALINE PHOSPHATASE (BEAKER) (test wfsd=049) 107 U/L 40-150 AST (SGOT) (BEAKER) (test xitn=546) 33 U/L 5-34 ALT (SGPT) (BEAKER) (test nive=536) 21 U/L 6-55 CBC W/PLT COUNT & AUTO [id number] 03:08:00 Test Item Value Reference Range Comments WHITE BLOOD CELL COUNT (BEAKER) (test zbts=435) 10.5 K/ L 3.5-10.5 RED BLOOD CELL COUNT (BEAKER) (test nwmu=853) 2.80 M/ L 4.63-6.08 HEMOGLOBIN (BEAKER) (test tiun=333) 8.4 GM/DL 13.7-17.5 HEMATOCRIT (BEAKER) (test kiku=658) 25.5 % 40.1-51.0 MEAN CORPUSCULAR VOLUME (BEAKER) (test jkbg=512) 91.1 fL 79.0-92.2 MEAN CORPUSCULAR HEMOGLOBIN (BEAKER) (test 30.0 pg 25.7-32.2 excj=147) MEAN CORPUSCULAR HEMOGLOBIN CONC (BEAKER) (test 32.9 GM/DL 32.3-36.5 ujar=390) RED CELL DISTRIBUTION WIDTH (BEAKER) (test 15.1 % 11.6-14.4 fwwr=759) PLATELET COUNT (BEAKER) (test myao=518) 153 K/CU MM 150-450 MEAN PLATELET VOLUME (BEAKER) (test ntzp=044) 9.7 fL 9.4-12.4 NUCLEATED RED BLOOD CELLS (BEAKER) (test 0 /100 WBC 0-0 wfcw=372) NEUTROPHILS RELATIVE PERCENT (BEAKER) (test 69 % cnjt=049) LYMPHOCYTES RELATIVE PERCENT (BEAKER) (test 12 % srgz=884) MONOCYTES RELATIVE PERCENT (BEAKER) (test 11 % afgs=964) EOSINOPHILS RELATIVE PERCENT (BEAKER) (test 7 % nnhg=529) BASOPHILS RELATIVE PERCENT (BEAKER) (test 0 % tmxe=735) NEUTROPHILS ABSOLUTE COUNT (BEAKER) (test 7.24 K/ L 1.78-5.38 jdqd=175) LYMPHOCYTES ABSOLUTE COUNT (BEAKER) (test 1.30 K/ L 1.32-3.57 qsov=806) MONOCYTES ABSOLUTE COUNT (BEAKER) (test 1.14 K/ L 0.30-0.82 xvec=914) EOSINOPHILS ABSOLUTE COUNT (BEAKER) (test 0.69 K/ L 0.04-0.54 wagg=274) BASOPHILS ABSOLUTE COUNT (BEAKER) (test 0.01 K/ L 0.01-0.08 izvl=437) IMMATURE GRANULOCYTES-RELATIVE PERCENT (BEAKER) 1 % 0-1 (test oqsq=3023) HEMOGLOBIN AND [id number] 00:43:00 Test Item Value Reference Range Comments HEMOGLOBIN (BEAKER) (test vgcw=025) 9.2 GM/DL 13.7-17.5 HEMATOCRIT (BEAKER) (test urnn=860) 27.6 % 40.1-51.0 [id number] 20:56:00 Test Item Value Reference Range Comments POTASSIUM (BEAKER) (test foff=188) 3.0 meq/L 3.5-5.1 [id number] 20:56:00 Test Item Value Reference Range Comments MAGNESIUM (BEAKER) (test rjnk=837) 1.7 mg/dL 1.6-2.6 HEMOGLOBIN AND [id number] 17:08:00 Test Item Value Reference Range Comments HEMOGLOBIN (BEAKER) (test dxiu=028) 9.3 GM/DL 13.7-17.5 HEMATOCRIT (BEAKER) (test etgp=172) 28.2 % 40.1-51.0 [id number] 08:36:00 Test Item Value Reference Range Comments PHOSPHORUS (BEAKER) (test onuo=226) 2.9 mg/dL 2.3-4.7 HEMOGLOBIN AND [id number] 08:18:00 Test Item Value Reference Range Comments HEMOGLOBIN (BEAKER) (test hwhm=474) 8.7 GM/DL 13.7-17.5 HEMATOCRIT (BEAKER) (test wpfd=545) 25.7 % 40.1-51.0 BASIC METABOLIC [id number] 05:58:00 Test Item Value Reference Range Comments SODIUM (BEAKER) (test 144 meq/L 136-145 kfuq=674) POTASSIUM (BEAKER) (test 3.3 meq/L 3.5-5.1 zcgr=996) CHLORIDE (BEAKER) (test 112 meq/L 98-107 gdad=407) CO2 (BEAKER) (test 25 meq/L 22-29 lawk=557) BLOOD UREA NITROGEN 25 mg/dL 7-21 (BEAKER) (test upvi=719) CREATININE (BEAKER) (test 1.88 mg/dL 0.57-1.25 yagb=551) GLUCOSE RANDOM (BEAKER) 110 mg/dL 70-105 (test ises=354) CALCIUM (BEAKER) (test 7.9 mg/dL 8.4-10.2 woaj=559) EGFR (BEAKER) (test 37 mL/min/1.73 sq m ESTIMATED GFR IS NOT uery=2058) ACCURATE CREATININE CLEARANCE IN PREDICTING GLOMERULAR FILTRATION RATE. ESTIMATED GFR IS NOT APPLICABLE FOR DIALYSIS PATIENTS. [id number] 04:58:00 Test Item Value Reference Range Comments MAGNESIUM (BEAKER) (test qyyk=860) 1.3 mg/dL 1.6-2.6 HEPATIC FUNCTION [id number] 04:58:00 Test Item Value Reference Range Comments TOTAL PROTEIN (BEAKER) (test poue=135) 3.7 gm/dL 6.0-8.3 ALBUMIN (BEAKER) (test wyiz=3024) 2.2 g/dL 3.5-5.0 BILIRUBIN TOTAL (BEAKER) (test sxih=816) 1.6 mg/dL 0.2-1.2 BILIRUBIN DIRECT (BEAKER) (test anwd=076) 1.2 mg/dL 0.1-0.5 ALKALINE PHOSPHATASE (BEAKER) (test iezb=370) 81 U/L 40-150 AST (SGOT) (BEAKER) (test cutf=103) 29 U/L 5-34 ALT (SGPT) (BEAKER) (test asps=753) 20 U/L 6-55 [id number] 04:40:00 Test Item Value Reference Range Comments D-DIMER QUANTITATIVE (BEAKER) (test dfrt=402) 2.11 MG/L FEU <0.50 Intended Use: The D-Dimer Assay can be used to aid in the diagnosis of Deep Vein Thrombosis (DVT) and Pulmonary Embolism Disease (PED).In patients with low pre-test probability, various studies concerning STA Liatest D-dimer test have reported that with a cutoff value of 0.50 MG/L FEU, the Negative Predictive Value (NPV) regarding the exclusion of thrombosis is within 95-100% range.PROTHROMBIN [id number] 04:37:00 Test Item Value Reference Range Comments PROTIME (BEAKER) (test jhek=063) 17.4 seconds 11.7-14.7 INR (BEAKER) (test lbiy=332) 1.4 <=5.9 RECOMMENDED COUMADIN/WARFARIN INR THERAPY RANGESSTANDARD DOSE: 2.0 - 3.0 Includes: PROPHYLAXIS forvenous thrombosis, systemic embolization; TREATMENT for venous thrombosis and/or pulmonary embolus.HIGH RISK: Target INR is 2.5-3.5 for patients with mechanical heart valves.CBC W/PLT COUNT & AUTO [id number] 04:33:00 Test Item Value Reference Range Comments WHITE BLOOD CELL COUNT (BEAKER) (test ijna=921) 13.1 K/ L 3.5-10.5 RED BLOOD CELL COUNT (BEAKER) (test kbfo=041) 2.87 M/ L 4.63-6.08 HEMOGLOBIN (BEAKER) (test bawk=376) 8.6 GM/DL 13.7-17.5 HEMATOCRIT (BEAKER) (test ttop=464) 25.4 % 40.1-51.0 MEAN CORPUSCULAR VOLUME (BEAKER) (test wtvs=268) 88.5 fL 79.0-92.2 MEAN CORPUSCULAR HEMOGLOBIN (BEAKER) (test 30.0 pg 25.7-32.2 ubcy=292) MEAN CORPUSCULAR HEMOGLOBIN CONC (BEAKER) (test 33.9 GM/DL 32.3-36.5 wnsa=671) RED CELL DISTRIBUTION WIDTH (BEAKER) (test 15.0 % 11.6-14.4 zsgh=478) PLATELET COUNT (BEAKER) (test rcke=576) 130 K/CU MM 150-450 MEAN PLATELET VOLUME (BEAKER) (test ujhz=875) 10.7 fL 9.4-12.4 NUCLEATED RED BLOOD CELLS (BEAKER) (test 0 /100 WBC 0-0 bklu=099) NEUTROPHILS RELATIVE PERCENT (BEAKER) (test 69 % whbo=326) LYMPHOCYTES RELATIVE PERCENT (BEAKER) (test 14 % vcsb=046) MONOCYTES RELATIVE PERCENT (BEAKER) (test 7 % rvkn=063) EOSINOPHILS RELATIVE PERCENT (BEAKER) (test 7 % shkh=366) BASOPHILS RELATIVE PERCENT (BEAKER) (test 0 % cmdr=822) NEUTROPHILS ABSOLUTE COUNT (BEAKER) (test 9.07 K/ L 1.78-5.38 zxcz=487) LYMPHOCYTES ABSOLUTE COUNT (BEAKER) (test 1.80 K/ L 1.32-3.57 gxrw=124) MONOCYTES ABSOLUTE COUNT (BEAKER) (test 0.94 K/ L 0.30-0.82 scsy=291) EOSINOPHILS ABSOLUTE COUNT (BEAKER) (test 0.97 K/ L 0.04-0.54 uqfk=799) BASOPHILS ABSOLUTE COUNT (BEAKER) (test 0.02 K/ L 0.01-0.08 dpnc=502) IMMATURE GRANULOCYTES-RELATIVE PERCENT (BEAKER) 2 % 0-1 (test iinp=2421) CALCIUM, [id number] 04:29:00 Test Item Value Reference Range Comments CALCIUM IONIZED (BEAKER) (test frey=161) 1.13 mmol/L 1.12-1.27 PH, BLOOD (BEAKER) (test nfsr=2105) 7.42 HEMOGLOBIN AND [id number] 04:29:00 Test Item Value Reference Range Comments HEMOGLOBIN (BEAKER) (test xbhy=900) 8.6 GM/DL 13.7-17.5 HEMATOCRIT (BEAKER) (test qpez=822) 25.4 % 40.1-51.0 POCT-GLUCOSE [id number] 04:18:00 Test Item Value Reference Range Comments POC-GLUCOSE METER (BEAKER) 116 mg/dL 70-110 TESTED AT [address] (test fime=8727) [facility] [address] HEMOGLOBIN AND [id number] 00:35:00 Test Item Value Reference Range Comments HEMOGLOBIN (BEAKER) (test mgrh=538) 8.7 GM/DL 13.7-17.5 HEMATOCRIT (BEAKER) (test fato=071) 25.9 % 40.1-51.0 POCT-GLUCOSE [id number] 22:40:00 Test Item Value Reference Range Comments POC-GLUCOSE METER (BEAKER) 112 mg/dL 70-110 TESTED AT [address] (test xgbz=5047) [facility] [address] HEMOGLOBIN AND [id number] 19:57:00 Test Item Value Reference Range Comments HEMOGLOBIN (BEAKER) (test omzg=443) 9.1 GM/DL 13.7-17.5 HEMATOCRIT (BEAKER) (test isvt=830) 26.2 % 40.1-51.0 POCT-GLUCOSE [id number] 17:38:00 Test Item Value Reference Range Comments POC-GLUCOSE METER (BEAKER) 151 mg/dL 70-110 TESTED AT [address] (test erdo=8659) [facility] [address] [id number] 17:13:00 Test Item Value Reference Range Comments POTASSIUM (BEAKER) (test dbss=754) 3.7 meq/L 3.5-5.1 HEMOGLOBIN AND [id number] 16:43:00 Test Item Value Reference Range Comments HEMOGLOBIN (BEAKER) (test yjlj=373) 9.2 GM/DL 13.7-17.5 HEMATOCRIT (BEAKER) (test jwwt=398) 26.8 % 40.1-51.0 CBC W/PLT COUNT & AUTO [id number] 13:38:00 Test Item Value Reference Range Comments WHITE BLOOD CELL COUNT (BEAKER) (test dtbo=490) 19.1 K/ L 3.5-10.5 RED BLOOD CELL COUNT (BEAKER) (test belo=404) 3.10 M/ L 4.63-6.08 HEMOGLOBIN (BEAKER) (test ceeq=227) 9.3 GM/DL 13.7-17.5 HEMATOCRIT (BEAKER) (test dfun=792) 27.6 % 40.1-51.0 MEAN CORPUSCULAR VOLUME (BEAKER) (test oain=507) 89.0 fL 79.0-92.2 MEAN CORPUSCULAR HEMOGLOBIN (BEAKER) (test 30.0 pg 25.7-32.2 dbzj=027) MEAN CORPUSCULAR HEMOGLOBIN CONC (BEAKER) (test 33.7 GM/DL 32.3-36.5 xzuw=272) RED CELL DISTRIBUTION WIDTH (BEAKER) (test 13.9 % 11.6-14.4 sall=406) PLATELET COUNT (BEAKER) (test eqfv=690) 146 K/CU MM 150-450 MEAN PLATELET VOLUME (BEAKER) (test sszt=638) 11.1 fL 9.4-12.4 NUCLEATED RED BLOOD CELLS (BEAKER) (test 0 /100 WBC 0-0 fokm=542) (CELLAVISION MANUAL DIFF)2018-07-15 13:38:00 Test Item Value Reference Range Comments NEUTROPHILS - REL (CELLAVISION)(BEAKER) (test 92 % pzgm=6152) LYMPHOCYTES - REL (CELLAVISION)(BEAKER) (test 2 % fpvi=5979) MONOCYTES - REL (CELLAVISION)(BEAKER) (test 5 % zhza=5868) METAMYELOCYTES - REL (CELLAVISION)(BEAKER) (test 1 % 0-0 wvzq=8477) BANDS - REL (CELLAVISION)(BEAKER) (test 1 % 0-10 gvgy=0210) NEUTROPHILS - ABS (CELLAVISION)(BEAKER) (test 17.57 K/ul 1.78-5.38 gnlu=9837) LYMPHOCYTES - ABS (CELLAVISION)(BEAKER) (test 0.38 K/ul 1.32-3.57 xwbm=8107) MONOCYTES - ABS (CELLAVISION)(BEAKER) (test 0.96 K/uL 0.30-0.82 sotq=1756) METAMYELOCYTES - ABS (CELLAVISION)(BEAKER) (test 0.19 K/uL 0.00-0.00 nedo=8453) BANDS - ABS (CELLAVISION)(BEAKER) (test 0.19 K/uL 0.00-0.80 gmjq=1024) TOTAL COUNTED (BEAKER) (test vxtl=2298) 100 WBC MORPHOLOGY (BEAKER) (test sdpo=867) Normal PLT MORPHOLOGY (BEAKER) (test tmhv=655) Normal ANISOCYTOSIS (BEAKER) (test zams=832) 2+ moderate MICROCYTES (BEAKER) (test mtlh=535) 2+ moderate POIKILOCYTES (BEAKER) (test qcys=944) 1+ few ARTIFACT (CELLAVISION)(BEAKER) (test devs=6921) Present PLATELET CONCENTRATION (CELLAVISION)(BEAKER) Decreased (test bvlt=8918) Received comment: User comments: Slide comments:COMPREHENSIVE METABOLIC [id number] 13:27:00 Test Item Value Reference Range Comments TOTAL PROTEIN (BEAKER) 3.8 gm/dL 6.0-8.3 (test fcxt=277) ALBUMIN (BEAKER) (test 2.2 g/dL 3.5-5.0 vbjt=3597) ALKALINE PHOSPHATASE 100 U/L 40-150 (BEAKER) (test eozi=884) BILIRUBIN TOTAL (BEAKER) 2.5 mg/dL 0.2-1.2 (test cdkn=882) SODIUM (BEAKER) (test 141 meq/L 136-145 ipam=958) POTASSIUM (BEAKER) (test 3.3 meq/L 3.5-5.1 exuf=926) CHLORIDE (BEAKER) (test 109 meq/L 98-107 cppt=742) CO2 (BEAKER) (test 25 meq/L 22-29 hjex=678) BLOOD UREA NITROGEN 27 mg/dL 7-21 (BEAKER) (test tvzk=262) CREATININE (BEAKER) (test 1.96 mg/dL 0.57-1.25 fjrx=448) GLUCOSE RANDOM (BEAKER) 164 mg/dL 70-105 (test dnvf=109) CALCIUM (BEAKER) (test 7.5 mg/dL 8.4-10.2 lzlz=159) AST (SGOT) (BEAKER) (test 31 U/L 5-34 uqrj=494) ALT (SGPT) (BEAKER) (test 22 U/L 6-55 zjqu=541) EGFR (BEAKER) (test 36 mL/min/1.73 sq m ESTIMATED GFR IS NOT kowd=9429) ACCURATE CREATININE CLEARANCE IN PREDICTING GLOMERULAR FILTRATION RATE. ESTIMATED GFR IS NOT APPLICABLE FOR DIALYSIS PATIENTS. Specimen slightly ictericLACTIC ACID, ARTERIAL, WHOLE [id number] 13:21:00 Test Item Value Reference Range Comments LACTATE BLOOD ARTERIAL (2) (BEAKER) (test 0.8 mmol/L 0.5-2.2 szsm=0250) Effective 02/25/2016: Units/Reference Range ChangeNew: 0.5-2.2 mmol/L Previous: 5 -20 mg/dLSpecimen slightly ictericCALCIUM, [id number] 13:06:00 Test Item Value Reference Range Comments CALCIUM IONIZED (BEAKER) (test gkcg=722) 1.07 mmol/L 1.12-1.27 PH, BLOOD (BEAKER) (test pdlo=0974) 7.44 PLATELET [id number] 13:01:00 Test Item Value Reference Range Comments PLATELET COUNT (BEAKER) (test ajkf=660) 138 K/CU MM 150-450 HEMOGLOBIN AND [id number] 13:01:00 Test Item Value Reference Range Comments HEMOGLOBIN (BEAKER) (test cdly=168) 9.4 GM/DL 13.7-17.5 HEMATOCRIT (BEAKER) (test coky=339) 27.7 % 40.1-51.0 POCT-GLUCOSE [id number] 12:02:00 Test Item Value Reference Range Comments POC-GLUCOSE METER (BEAKER) 175 mg/dL 70-110 TESTED AT [facility] [address] [facility] (test fpyw=0621) [facility] [address] LACTIC ACID, VENOUS, WHOLE [id number] 11:44:00 Test Item Value Reference Range Comments LACTATE BLOOD VENOUS (2) (BEAKER) (test 0.9 mmol/L 0.5-2.2 srgo=5469) Effective 02/25/2016: Units/Reference Range ChangeNew: 0.5-2.2 mmol/L Previous: 5 -20 mg/dLLACTIC ACID, VENOUS, WHOLE [id number] 10:20:00 Test Item Value Reference Range Comments LACTATE BLOOD VENOUS (2) (BEAKER) (test 0.9 mmol/L 0.5-2.2 seec=4433) Effective 02/25/2016: Units/Reference Range ChangeNew: 0.5-2.2 mmol/L Previous: 5 -20 mg/[id number] 10:00:00 Test Item Value Reference Range Comments D-DIMER QUANTITATIVE (BEAKER) (test dsrz=549) 2.73 MG/L FEU <0.50 Intended Use: The D-Dimer Assay can be used to aid in the diagnosis of Deep Vein Thrombosis (DVT) and Pulmonary Embolism Disease (PED).In patients with low pre-test probability, various studies concerning STA Liatest D-dimer test have reported that with a cutoff value of 0.50 MG/L FEU, the Negative Predictive Value (NPV) regarding the exclusion of thrombosis is within 95-100% range.PT/ [id number] 09:58:00 Test Item Value Reference Range Comments PROTIME (BEAKER) (test hdhm=862) 17.6 seconds 11.7-14.7 INR (BEAKER) (test vanz=518) 1.5 <=5.9 PARTIAL THROMBOPLASTIN TIME (BEAKER) (test 29.5 seconds 22.5-36.0 phzr=661) RECOMMENDED COUMADIN/WARFARIN INR THERAPY RANGESSTANDARD DOSE: 2.0 - 3.0 Includes: PROPHYLAXIS forvenous thrombosis, systemic embolization; TREATMENT for venous thrombosis and/or pulmonary embolus.HIGH RISK: Target INR is 2.5-3.5 for patients with mechanical heart valves.[id number] 09:58:00 Test Item Value Reference Range Comments FIBRINOGEN LEVEL (BEAKER) (test roeu=132) 151 mg/dl 225-434 CALCIUM, [id number] 09:31:00 Test Item Value Reference Range Comments CALCIUM IONIZED (BEAKER) (test ikdt=083) 1.09 mmol/L 1.12-1.27 PH, BLOOD (BEAKER) (test heaw=8091) 7.45 CBC W/PLT COUNT & AUTO [id number] 08:51:00 Test Item Value Reference Range Comments WHITE BLOOD CELL COUNT (BEAKER) (test xvbg=158) 15.2 K/ L 3.5-10.5 RED BLOOD CELL COUNT (BEAKER) (test bvoo=158) 2.09 M/ L 4.63-6.08 HEMOGLOBIN (BEAKER) (test okxh=211) 6.2 GM/DL 13.7-17.5 HEMATOCRIT (BEAKER) (test qbyu=897) 19.4 % 40.1-51.0 MEAN CORPUSCULAR VOLUME (BEAKER) (test utvx=309) 92.8 fL 79.0-92.2 MEAN CORPUSCULAR HEMOGLOBIN (BEAKER) (test 29.7 pg 25.7-32.2 sate=467) MEAN CORPUSCULAR HEMOGLOBIN CONC (BEAKER) (test 32.0 GM/DL 32.3-36.5 ulxn=261) RED CELL DISTRIBUTION WIDTH (BEAKER) (test 14.7 % 11.6-14.4 nxtz=044) PLATELET COUNT (BEAKER) (test foab=340) 147 K/CU MM 150-450 MEAN PLATELET VOLUME (BEAKER) (test efth=885) 10.2 fL 9.4-12.4 NUCLEATED RED BLOOD CELLS (BEAKER) (test 0 /100 WBC 0-0 pofv=993) (CELLAVISION MANUAL DIFF)2018-07-15 08:51:00 Test Item Value Reference Range Comments NEUTROPHILS - REL (CELLAVISION)(BEAKER) (test 89 % whpc=4616) LYMPHOCYTES - REL (CELLAVISION)(BEAKER) (test 7 % yrcv=0072) MONOCYTES - REL (CELLAVISION)(BEAKER) (test 2 % kyzm=6944) EOSINOPHILS - REL (CELLAVISION)(BEAKER) (test 1 % gzhk=0861) BANDS - REL (CELLAVISION)(BEAKER) (test 1 % 0-10 zotq=0154) NEUTROPHILS - ABS (CELLAVISION)(BEAKER) (test 13.53 K/ul 1.78-5.38 dwei=4747) LYMPHOCYTES - ABS (CELLAVISION)(BEAKER) (test 1.06 K/ul 1.32-3.57 lpwq=2506) MONOCYTES - ABS (CELLAVISION)(BEAKER) (test 0.30 K/uL 0.30-0.82 dysk=8936) EOSINOPHILS - ABS (CELLAVISION)(BEAKER) (test 0.15 K/uL 0.04-0.54 inpz=7021) BANDS - ABS (CELLAVISION)(BEAKER) (test 0.15 K/uL 0.00-0.80 unty=3954) TOTAL COUNTED (BEAKER) (test fxbr=4659) 100 WBC MORPHOLOGY (BEAKER) (test aqap=371) Normal GIANT PLATELETS (BEAKER) (test mhht=927) Present HYPOCHROMIA (BEAKER) (test wwlx=408) 2+ moderate ANISOCYTOSIS (BEAKER) (test npwc=013) 2+ moderate MICROCYTES (BEAKER) (test btlb=536) 1+ few MACROCYTES (BEAKER) (test pzrl=175) 2+ moderate POIKILOCYTES (BEAKER) (test jakc=719) 1+ few OVALOCYTES (BEAKER) (test rydb=067) 1+ few ACANTHOCYTES (BEAKER) (test qulg=061) 1+ few BASOPHILIC STIPPLING (BEAKER) (test ordr=345) Present ARTIFACT (CELLAVISION)(BEAKER) (test avct=4961) Present PLATELET CONCENTRATION (CELLAVISION)(BEAKER) Adequate (test wvav=3585) PROTHROMBIN [id number] 08:06:00 Test Item Value Reference Range Comments PROTIME (BEAKER) (test eztz=570) 17.3 seconds 11.7-14.7 INR (BEAKER) (test qldm=824) 1.4 <=5.9 RECOMMENDED COUMADIN/WARFARIN INR THERAPY RANGESSTANDARD DOSE: 2.0 - 3.0 Includes: PROPHYLAXIS forvenous thrombosis, systemic embolization; TREATMENT for venous thrombosis and/or pulmonary embolus.HIGH RISK: Target INR is 2.5-3.5 for patients with mechanical heart valves.[id number] 08:06:00 Test Item Value Reference Range Comments PROTIME (BEAKER) (test vtjy=931) 17.3 seconds 11.7-14.7 INR (BEAKER) (test rlpk=428) 1.4 <=5.9 PARTIAL THROMBOPLASTIN TIME (BEAKER) (test 30.3 seconds 22.5-36.0 lqzh=563) RECOMMENDED COUMADIN/WARFARIN INR THERAPY RANGESSTANDARD DOSE: 2.0 - 3.0 Includes: PROPHYLAXIS forvenous thrombosis, systemic embolization; TREATMENT for venous thrombosis and/or pulmonary embolus.HIGH RISK: Target INR is 2.5-3.5 for patients with mechanical heart valves.[id number] 08:06:00 Test Item Value Reference Range Comments FIBRINOGEN LEVEL (BEAKER) (test vzdz=976) 153 mg/dl 225-434 [id number] 08:06:00 Test Item Value Reference Range Comments D-DIMER QUANTITATIVE (BEAKER) (test ctog=821) 3.00 MG/L FEU <0.50 Intended Use: The D-Dimer Assay can be used to aid in the diagnosis of Deep Vein Thrombosis (DVT) and Pulmonary Embolism Disease (PED).In patients with low pre-test probability, various studies concerning STA Liatest D-dimer test have reported that with a cutoff value of 0.50 MG/L FEU, the Negative Predictive Value (NPV) regarding the exclusion of thrombosis is within 95-100% range.BLOOD GAS, [id number] 07:07:00 Test Item Value Reference Range Comments PH ARTERIAL (BEAKER) (test upwt=635) 7.48 7.35-7.45 PCO2 ARTERIAL (BEAKER) (test cyhg=166) 36 mm Hg 35-45 PO2 ARTERIAL (BEAKER) (test vgrx=539) 391 mm Hg 80-90 O2 SATURATION ARTERIAL (BEAKER) (test irly=717) 99.8 % 96.0-97.0 HCO3 ARTERIAL (BEAKER) (test eqkb=049) 26 mmol/L 21-29 BASE EXCESS ARTERIAL (BEAKER) (test wmae=994) 2.6 mmol/L -2.0-3.0 PATIENT TEMPERATURE (BEAKER) (test sycr=7615) 37.0 FIO2 (BEAKER) (test rmbt=8542) 100 CALCIUM, [id number] 07:07:00 Test Item Value Reference Range Comments CALCIUM IONIZED (BEAKER) (test kjmr=650) 1.08 mmol/L 1.12-1.27 PH, BLOOD (BEAKER) (test vusx=5581) 7.48 CALCIUM, [id number] 07:06:00 Test Item Value Reference Range Comments CALCIUM IONIZED (BEAKER) (test ujgd=198) 1.07 mmol/L 1.12-1.27 PH, BLOOD (BEAKER) (test nrlk=4337) 7.44 [id number] 06:52:00 Test Item Value Reference Range Comments MAGNESIUM (BEAKER) (test wiak=821) 1.5 mg/dL 1.6-2.6 [id number] 06:52:00 Test Item Value Reference Range Comments POTASSIUM (BEAKER) (test ulbh=219) 3.3 meq/L 3.5-5.1 [id number] 06:52:00 Test Item Value Reference Range Comments SODIUM (BEAKER) (test qzwk=569) 142 meq/L 136-145 HEPATIC FUNCTION [id number] 06:52:00 Test Item Value Reference Range Comments TOTAL PROTEIN (BEAKER) (test oojl=967) 3.9 gm/dL 6.0-8.3 ALBUMIN (BEAKER) (test imal=2986) 2.3 g/dL 3.5-5.0 BILIRUBIN TOTAL (BEAKER) (test awvl=539) 1.3 mg/dL 0.2-1.2 BILIRUBIN DIRECT (BEAKER) (test ejbh=271) 1.0 mg/dL 0.1-0.5 ALKALINE PHOSPHATASE (BEAKER) (test mkgp=476) 116 U/L 40-150 AST (SGOT) (BEAKER) (test ylpg=350) 38 U/L 5-34 ALT (SGPT) (BEAKER) (test rwpn=073) 26 U/L 6-55 THROMBOELASTOGRAPH (TEG)2018-07-15 06:15:00 Test Item Value Reference Range Comments TEG ACTIVATED CLOTTING TIME (BEAKER) (test 3.9 minutes 4.0-7.0 jruz=8656) TEG FIBRINOGEN ACTIVITY (BEAKER) (test 73.5 degrees 61.0-73.0 wxns=3111) TEG PLT. AGGREGATION (BEAKER) (test egiu=3785) 57.9 MM 55.0-65.0 TEG FIBRINOLYSIS (BEAKER) (test pngs=0074) 0.2 % 0.0-5.0 TGH ACTIVATED CLOTTING TIME (BEAKER) (test 4.2 minutes 4.0-7.0 ilzp=6959) TGH FIBRINOGEN ACTIVITY (BEAKER) (test 72.5 degrees 61.0-73.0 rmvh=2511) TGH PLT. AGGREGATION (BEAKER) (test bqtn=2680) 58.9 MM 55.0-65.0 TGH FIBRINOLYSIS (BEAKER) (test toyg=9022) 0.4 % 0.0-5.0 PLATELET [id number] 05:34:00 Test Item Value Reference Range Comments PLATELET COUNT (BEAKER) (test wjhh=926) 146 K/CU MM 150-450 HEMOGLOBIN AND [id number] 05:34:00 Test Item Value Reference Range Comments HEMOGLOBIN (BEAKER) (test vgqc=574) 7.3 GM/DL 13.7-17.5 HEMATOCRIT (BEAKER) (test rvuk=213) 22.2 % 40.1-51.0 CALCIUM, [id number] 05:26:00 Test Item Value Reference Range Comments CALCIUM IONIZED (BEAKER) (test aexm=827) 0.96 mmol/L 1.12-1.27 PH, BLOOD (BEAKER) (test ogue=6024) 7.40 RAD, CHEST, 1 VIEW, NON [id number] 05:09:00Reason for exam:->check ET placementShould this be performed at the bedside?->YesFINAL REPORT RAD, CHEST, 1 VIEW, NON DEPT INDICATION: check ET placement COMPARISON: Prior day's exam FINDINGS: Portable frontal view of the chest. IMPRESSION: Support Lines: Endotracheal tube terminates 4 cm above the rashmi. Stable right IJ central venous catheter. Lungs and pleura: Central subsegmental atelectasis. No effusion. No pneumothorax.Heart and mediastinum: Stable contours. Stable surgical changes.Additional findings: None. Signed: JR Smith Robert MDReport Verified Date/Time: 07/15/2018 05:09:29 Reading Location: [facility] C013Y CT Body Reading Room -[id number] 04:55:00 Test Item Value Reference Range Comments D-DIMER QUANTITATIVE (BEAKER) (test exel=635) 3.30 MG/L FEU <0.50 Intended Use: The D-Dimer Assay can be used to aid in the diagnosis of Deep Vein Thrombosis (DVT) and Pulmonary Embolism Disease (PED).In patients with low pre-test probability, various studies concerning STA Liatest D-dimer test have reported that with a cutoff value of 0.50 MG/L FEU, the Negative Predictive Value (NPV) regarding the exclusion of thrombosis is within 95-100% range.POCT- BLOOD GASES, [id number] 04:54:00 Test Item Value Reference Range Comments TEMP, CELSIUS-POC (BEAKER) 36.8 (test ncua=4910) FIO2-POC (BEAKER) (test 100 TESTED AT [place] [address] [address] iyqi=4267) [place] [address] PH, ARTERIAL-POC (BEAKER) 7.424 7.350-7.450 (test hhve=1887) PCO2, ARTERIAL-POC (BEAKER) 41.6 mm Hg 35.0-45.0 (test avdy=7933) PO2, ARTERIAL-POC (BEAKER) 482.0 mm Hg 80.0-90.0 (test judm=0016) SO2, ARTERIAL-POC (BEAKER) 100.0 % 96.0-97.0 (test wuti=1940) HCO3, ARTERIAL-POC (BEAKER) 27.3 meq/L 21.0-29.0 (test fhfn=1532) BASE EXCESS, ARTERIAL-POC 3.0 meq/L -2.0-3.0 (BEAKER) (test mtfk=5559) [id number] 04:54:00 Test Item Value Reference Range Comments POC-SODIUM (BEAKER) (test 144 meq/L 135-148 TESTED AT [place] [address] [address] ivxj=2687) [place] [address] [id number] 04:54:00 Test Item Value Reference Range Comments POC-POTASSIUM (BEAKER) (test 3.2 meq/L 3.6-5.5 TESTED AT [place] [address] [address] dqds=4340) [place] [address] [id number] 04:54:00 Test Item Value Reference Range Comments POC-GLUCOSE (BEAKER) (test 170 mg/dL 70-110 TESTED AT [place] [address] [address] wwee=1638) [place] [address] POCT-CALCIUM [id number] 04:54:00 Test Item Value Reference Range Comments POC-CALCIUM IONIZED (BEAKER) 1.09 mmol/L 1.12-1.27 TESTED AT [address] (test afid=5381) [place] [id number] 04:54:00 Test Item Value Reference Range Comments POC-HEMATOCRIT (BEAKER) (test 22 % 40-50 TESTED AT [address] cwtx=4576) [place] [address] [id number] 04:54:00 Test Item Value Reference Range Comments POC-HEMOGLOBIN (BEAKER) 7.5 g/dL 13.0-16.8 TESTED AT [address] (test fnew=4882) [place] [address]TESTED AT [place] [address] [id number] 04:53:00 Test Item Value Reference Range Comments PROTIME (BEAKER) (test uauh=192) 18.4 seconds 11.7-14.7 INR (BEAKER) (test bpwu=084) 1.5 <=5.9 PARTIAL THROMBOPLASTIN TIME (BEAKER) (test 33.3 seconds 22.5-36.0 uujt=160) RECOMMENDED COUMADIN/WARFARIN INR THERAPY RANGESSTANDARD DOSE: 2.0 - 3.0 Includes: PROPHYLAXIS forvenous thrombosis, systemic embolization; TREATMENT for venous thrombosis and/or pulmonary embolus.HIGH RISK: Target INR is 2.5-3.5 for patients with mechanical heart valves.[id number] 04:53:00 Test Item Value Reference Range Comments FIBRINOGEN LEVEL (BEAKER) (test hjtj=057) 164 mg/dl 225-434 HEMOGLOBIN AND [id number] 04:12:00 Test Item Value Reference Range Comments HEMOGLOBIN (BEAKER) (test nsff=960) 7.3 GM/DL 13.7-17.5 HEMATOCRIT (BEAKER) (test hubz=714) 22.3 % 40.1-51.0 POCT-BLOOD GASES, [id number] 03:58:00 Test Item Value Reference Range Comments TEMP, CELSIUS-POC (BEAKER) 36.8 (test vefl=2605) FIO2-POC (BEAKER) (test 32 TESTED AT [address] zmki=0085) [place] [address] PH, ARTERIAL-POC (BEAKER) 7.426 7.350-7.450 (test mtam=1719) PCO2, ARTERIAL-POC (BEAKER) 37.0 mm Hg 35.0-45.0 (test aeus=5887) PO2, ARTERIAL-POC (BEAKER) 152.0 mm Hg 80.0-90.0 (test afny=3049) SO2, ARTERIAL-POC (BEAKER) 99.0 % 96.0-97.0 (test qcxc=7040) HCO3, ARTERIAL-POC (BEAKER) 24.4 meq/L 21.0-29.0 (test holv=9336) BASE EXCESS, ARTERIAL-POC 0.0 meq/L -2.0-3.0 (BEAKER) (test hxqg=5601) [id number] 03:58:00 Test Item Value Reference Range Comments POC-SODIUM (BEAKER) (test 143 meq/L 135-148 TESTED AT [address] exas=5289) [place] [address] [id number] 03:58:00 Test Item Value Reference Range Comments POC-POTASSIUM (BEAKER) (test 4.3 meq/L 3.6-5.5 TESTED AT [address] agzb=3076) [place] [address] [id number] 03:58:00 Test Item Value Reference Range Comments POC-GLUCOSE (BEAKER) (test 178 mg/dL 70-110 TESTED AT [address] tmms=2136) [place] [address] POCT-CALCIUM [id number] 03:58:00 Test Item Value Reference Range Comments POC-CALCIUM IONIZED (BEAKER) 0.95 mmol/L 1.12-1.27 TESTED AT [address] (test mrfz=7808) [place] [address] [id number] 03:58:00 Test Item Value Reference Range Comments POC-HEMATOCRIT (BEAKER) (test 17 % 40-50 TESTED AT [address] iewo=2379) [place] [address] [id number] 03:58:00 Test Item Value Reference Range Comments POC-HEMOGLOBIN (BEAKER) 5.8 g/dL 13.0-16.8 TESTED AT [facility] [address] [place] [address] (test uuyi=8259) [facility] [address] AT [facility] [address] [facility] [address] [id number] 03:23:00 Test Item Value Reference Range Comments PROTIME (BEAKER) (test dcaa=649) 17.2 seconds 11.7-14.7 INR (BEAKER) (test uqev=080) 1.4 <=5.9 PARTIAL THROMBOPLASTIN TIME (BEAKER) (test 32.7 seconds 22.5-36.0 dqut=029) RECOMMENDED COUMADIN/WARFARIN INR THERAPY RANGESSTANDARD DOSE: 2.0 - 3.0 Includes: PROPHYLAXIS forvenous thrombosis, systemic embolization; TREATMENT for venous thrombosis and/or pulmonary embolus.HIGH RISK: Target INR is 2.5-3.5 for patients with mechanical heart valves.PROTHROMBIN [id number] 03:22: 00 Test Item Value Reference Range Comments PROTIME (BEAKER) (test rxnx=582) 17.2 seconds 11.7-14.7 INR (BEAKER) (test brfe=384) 1.4 <=5.9 RECOMMENDED COUMADIN/WARFARIN INR THERAPY RANGESSTANDARD DOSE: 2.0 - 3.0 Includes: PROPHYLAXIS forvenous thrombosis, systemic embolization; TREATMENT for venous thrombosis and/or pulmonary embolus.HIGH RISK: Target INR is 2.5-3.5 for patients with mechanical heart valves.BASIC METABOLIC [id number] 02:56: 00 Test Item Value Reference Range Comments SODIUM (BEAKER) (test 143 meq/L 136-145 zrhm=581) POTASSIUM (BEAKER) (test 3.2 meq/L 3.5-5.1 fqty=585) CHLORIDE (BEAKER) (test 106 meq/L 98-107 supp=858) CO2 (BEAKER) (test 30 meq/L 22-29 fwag=777) BLOOD UREA NITROGEN 24 mg/dL 7-21 (BEAKER) (test abdb=275) CREATININE (BEAKER) (test 1.95 mg/dL 0.57-1.25 slqe=877) GLUCOSE RANDOM (BEAKER) 134 mg/dL 70-105 (test vfra=433) CALCIUM (BEAKER) (test 8.2 mg/dL 8.4-10.2 hsql=354) EGFR (BEAKER) (test 36 mL/min/1.73 sq m ESTIMATED GFR IS NOT qqwx=7250) ACCURATE CREATININE CLEARANCE IN PREDICTING GLOMERULAR FILTRATION RATE. ESTIMATED GFR IS NOT APPLICABLE FOR DIALYSIS PATIENTS. POCT-BLOOD GASES, [id number] 02:24:00 Test Item Value Reference Range Comments TEMP, CELSIUS-POC (BEAKER) 36.1 (test cksf=4627) FIO2-POC (BEAKER) (test 32 TESTED AT [place] [address] [address] xqzw=5441) [place] [address] PH, VENOUS-POC (BEAKER) 7.432 7.320-7.420 (test ibnp=8195) PCO2, VENOUS-POC (BEAKER) 46.6 mm Hg 41.0-51.0 (test euai=2753) PO2, VENOUS-POC (BEAKER) 27.0 mm Hg 25.0-40.0 (test mjne=0465) SO2, VENOUS-POC (BEAKER) 54.0 % 40.0-70.0 (test zicz=9515) HCO3, VENOUS-POC (BEAKER) 31.3 meq/L 21.0-29.0 (test uadx=1602) BASE EXCESS, VENOUS-POC 7.0 meq/L -2.0-3.0 (BEAKER) (test pehk=1651) [id number] 02:24:00 Test Item Value Reference Range Comments POC-SODIUM (BEAKER) (test 143 meq/L 135-148 TESTED AT [place] [address] [address] afeb=8325) [place] [id number] 02:24:00 Test Item Value Reference Range Comments POC-POTASSIUM (BEAKER) (test 3.1 meq/L 3.6-5.5 TESTED AT [place] [address] [address] anae=9169) [place] [address] [id number] 02:24:00 Test Item Value Reference Range Comments POC-GLUCOSE (BEAKER) (test 134 mg/dL 70-110 TESTED AT [place] [address] [address] bmds=6044) [place] [address] POCT-CALCIUM [id number] 02:24:00 Test Item Value Reference Range Comments POC-CALCIUM IONIZED (BEAKER) 1.20 mmol/L 1.12-1.27 TESTED AT [address] (test ciit=7245) [place] [address] [id number] 02:24:00 Test Item Value Reference Range Comments POC-HEMATOCRIT (BEAKER) (test 18 % 40-50 TESTED AT [address] yelt=3057) [place] [address] [id number] 02:24:00 Test Item Value Reference Range Comments POC-HEMOGLOBIN (BEAKER) 6.1 g/dL 13.0-16.8 TESTED AT [address] (test oxfw=1695) [place] [address] AT [place] [address] POCT-GLUCOSE [id number] 20:58:00 Test Item Value Reference Range Comments POC-GLUCOSE METER (BEAKER) 196 mg/dL 70-110 TESTED AT [address] (test ydfz=6957) [place] [address] POCT-GLUCOSE [id number] 17:05:00 Test Item Value Reference Range Comments POC-GLUCOSE METER (BEAKER) 236 mg/dL 70-110 TESTED AT [address] (test tsoe=8060) [place] [address] POCT-GLUCOSE [id number] 12:04:00 Test Item Value Reference Range Comments POC-GLUCOSE METER (BEAKER) 115 mg/dL 70-110 TESTED AT [address] (test cmqv=1747) [place] [address] RAD, CHEST, 1 VIEW, NON [id number] 10:09:00Reason for exam:->to assess for consolidation, pleural effusions, pulmonary edemaShould this be performed at the bedside?->YesFINAL REPORT Chest one view compared to July 09 Discussion: Mild interstitial congestion. No effusion or pneumothorax. Right IJ line in place. Signed: Felicitas Rivera Verified Date/Time: 07/14/2018 10:09:51 Reading Location: [facility] Radiology Reading Room 10 :09 AMBASIC METABOLIC [id number] 08:26:00 Test Item Value Reference Range Comments SODIUM (BEAKER) (test 142 meq/L 136-145 glae=470) POTASSIUM (BEAKER) (test 3.6 meq/L 3.5-5.1 jspa=006) CHLORIDE (BEAKER) (test 106 meq/L 98-107 vcoi=123) CO2 (BEAKER) (test 29 meq/L 22-29 azlx=883) BLOOD UREA NITROGEN 18 mg/dL 7-21 (BEAKER) (test fevo=241) CREATININE (BEAKER) (test 1.46 mg/dL 0.57-1.25 wtte=508) GLUCOSE RANDOM (BEAKER) 99 mg/dL 70-105 (test bggw=328) CALCIUM (BEAKER) (test 8.3 mg/dL 8.4-10.2 ufbe=215) EGFR (BEAKER) (test 50 mL/min/1.73 sq m ESTIMATED GFR IS NOT eepp=7981) ACCURATE CREATININE CLEARANCE IN PREDICTING GLOMERULAR FILTRATION RATE. ESTIMATED GFR IS NOT APPLICABLE FOR DIALYSIS PATIENTS. BLOOD GAS, [id number] 08:09:00 Test Item Value Reference Range Comments PH VENOUS (BEAKER) (test sdsk=042) 7.41 7.32-7.42 PCO2 VENOUS (BEAKER) (test xwkh=013) 45 mmHg 41-51 PO2 VENOUS (BEAKER) (test eerv=971) 40 mmHg 25-40 O2 SATURATION VENOUS (BEAKER) (test lyip=084) 75.2 % 40.0-70.0 HCO3 VENOUS (BEAKER) (test ghxo=605) 28 mmol/L 21-29 BASE EXCESS VENOUS (BEAKER) (test vcfi=822) 3.0 mmol/L -2.0-3.0 PATIENT TEMPERATURE (BEAKER) (test tsxj=3110) 37.0 C FIO2 (BEAKER) (test hzdc=9791) 36.0 % HEMOGLOBIN AND [id number] 08:07:00 Test Item Value Reference Range Comments HEMOGLOBIN (BEAKER) (test rdmu=935) 7.8 GM/DL 13.7-17.5 HEMATOCRIT (BEAKER) (test hjcu=898) 24.4 % 40.1-51.0 POCT-GLUCOSE [id number] 06:12:00 Test Item Value Reference Range Comments POC-GLUCOSE METER (BEAKER) 95 mg/dL 70-110 TESTED AT [facility] [address] (test rqtr=6308) [place] [address] OXYGEN SATURATION, [id number] 05:31:00 Test Item Value Reference Range Comments O2 SATURATION (MEASURED) (BEAKER) (test sigo=8876) 97.9 % Obtain from CVP portVANCOMYCIN LEVEL, [id number] 05:18:00 Test Item Value Reference Range Comments VANCOMYCIN RANDOM (BEAKER) (test ezju=283) 20.5 ug/mL Reference Range: No NormalsBLOOD GAS, [id number] 05:01:00 Test Item Value Reference Range Comments PH ARTERIAL (BEAKER) (test jrfe=509) 7.46 7.35-7.45 PCO2 ARTERIAL (BEAKER) (test vbsd=303) 38 mmHg 35-45 PO2 ARTERIAL (BEAKER) (test lcua=037) 119 mmHg 80-90 O2 SATURATION ARTERIAL (BEAKER) (test jvsn=910) 98.5 % 96.0-97.0 HCO3 ARTERIAL (BEAKER) (test eiyh=306) 27 mmol/L 21-29 BASE EXCESS ARTERIAL (BEAKER) (test tqag=683) 2.6 mmol/L -2.0-3.0 PATIENT TEMPERATURE (BEAKER) (test jlrs=9414) 37.0 C FIO2 (BEAKER) (test dkzr=3266) 32.0 % [id number] 04:55:00 Test Item Value Reference Range Comments MAGNESIUM (BEAKER) (test coxd=498) 1.9 mg/dL 1.6-2.6 BASIC METABOLIC [id number] 04:55:00 Test Item Value Reference Range Comments SODIUM (BEAKER) (test 142 meq/L 136-145 rpet=910) POTASSIUM (BEAKER) (test 3.6 meq/L 3.5-5.1 bnxl=201) CHLORIDE (BEAKER) (test 107 meq/L 98-107 krov=164) CO2 (BEAKER) (test 25 meq/L 22-29 tlxv=721) BLOOD UREA NITROGEN 18 mg/dL 7-21 (BEAKER) (test hljk=192) CREATININE (BEAKER) (test 1.33 mg/dL 0.57-1.25 gecn=847) GLUCOSE RANDOM (BEAKER) 99 mg/dL 70-105 (test xvad=514) CALCIUM (BEAKER) (test 8.5 mg/dL 8.4-10.2 bnvh=811) EGFR (BEAKER) (test 56 mL/min/1.73 sq m ESTIMATED GFR IS NOT qqth=8328) ACCURATE CREATININE CLEARANCE IN PREDICTING GLOMERULAR FILTRATION RATE. ESTIMATED GFR IS NOT APPLICABLE FOR DIALYSIS PATIENTS. HEPATIC FUNCTION [id number] 04:55:00 Test Item Value Reference Range Comments TOTAL PROTEIN (BEAKER) (test qltp=209) 5.1 gm/dL 6.0-8.3 ALBUMIN (BEAKER) (test snuw=3995) 3.0 g/dL 3.5-5.0 BILIRUBIN TOTAL (BEAKER) (test rwnh=168) 1.9 mg/dL 0.2-1.2 BILIRUBIN DIRECT (BEAKER) (test ujak=144) 1.4 mg/dL 0.1-0.5 ALKALINE PHOSPHATASE (BEAKER) (test fxym=103) 148 U/L 40-150 AST (SGOT) (BEAKER) (test bqfj=700) 53 U/L 5-34 ALT (SGPT) (BEAKER) (test csat=866) 35 U/L 6-55 PROTHROMBIN [id number] 04:28:00 Test Item Value Reference Range Comments PROTIME (BEAKER) (test oazg=906) 17.3 seconds 11.7-14.7 INR (BEAKER) (test mndi=756) 1.4 <=5.9 RECOMMENDED COUMADIN/WARFARIN INR THERAPY RANGESSTANDARD DOSE: 2.0 - 3.0 Includes: PROPHYLAXIS forvenous thrombosis, systemic embolization; TREATMENT for venous thrombosis and/or pulmonary embolus.HIGH RISK: Target INR is 2.5-3.5 for patients with mechanical heart valves.HEMOGLOBIN AND [id number] 04 :22:00 Test Item Value Reference Range Comments HEMOGLOBIN (BEAKER) (test frbq=445) 8.2 GM/DL 13.7-17.5 HEMATOCRIT (BEAKER) (test slzo=148) 25.7 % 40.1-51.0 POCT-GLUCOSE [id number] 00:22:00 Test Item Value Reference Range Comments POC-GLUCOSE METER (BEAKER) 96 mg/dL 70-110 [address] (test hchr=6875) [facility] [address] HEMOGLOBIN AND [id number] 21:02:00 Test Item Value Reference Range Comments HEMOGLOBIN (BEAKER) (test hfcx=365) 8.5 GM/DL 13.7-17.5 HEMATOCRIT (BEAKER) (test savg=221) 26.1 % 40.1-51.0 POCT-GLUCOSE [id number] 17:53:00 Test Item Value Reference Range Comments POC-GLUCOSE METER (BEAKER) 123 mg/dL 70-110 TESTED AT [facility] [address] [facility] (test hvhf=5700) [facility] [address] [id number] 16:37:00 Test Item Value Reference Range Comments MAGNESIUM (BEAKER) (test yapy=367) 2.1 mg/dL 1.6-2.6 BASIC METABOLIC [id number] 16:37:00 Test Item Value Reference Range Comments SODIUM (BEAKER) (test 142 meq/L 136-145 awqk=250) POTASSIUM (BEAKER) (test 3.7 meq/L 3.5-5.1 kivm=782) CHLORIDE (BEAKER) (test 108 meq/L 98-107 nwsw=510) CO2 (BEAKER) (test 23 meq/L 22-29 rsld=300) BLOOD UREA NITROGEN 30 mg/dL 7-21 (BEAKER) (test wmhx=536) CREATININE (BEAKER) (test 1.77 mg/dL 0.57-1.25 spfl=770) GLUCOSE RANDOM (BEAKER) 122 mg/dL 70-105 (test mxye=992) CALCIUM (BEAKER) (test 8.5 mg/dL 8.4-10.2 bddn=679) EGFR (BEAKER) (test 40 mL/min/1.73 sq m ESTIMATED GFR IS NOT htlj=6521) ACCURATE CREATININE CLEARANCE IN PREDICTING GLOMERULAR FILTRATION RATE. ESTIMATED GFR IS NOT APPLICABLE FOR DIALYSIS PATIENTS. HEPATITIS B [id number] 13:03:00 Test Item Value Reference Range Comments HEPATITIS B CORE TOTAL ANTIBODY (BEAKER) (test Nonreactive Nonreactive szir=865) HEPATITIS B SURFACE ANTIBODY (BEAKER) (test 14.4 mIU/mL <8.0 otkn=615) HEPATITIS B SURFACE ANTIGEN (2) (BEAKER) (test Nonreactive Nonreactive kpxz=2029) POCT-GLUCOSE [id number] 12:24:00 Test Item Value Reference Range Comments POC-GLUCOSE METER (BEAKER) 123 mg/dL 70-110 TESTED AT [address] (test zvge=4830) [facility] [id number] HEMOGLOBIN AND [id number] 12:07:00 Test Item Value Reference Range Comments HEMOGLOBIN (BEAKER) (test cffb=925) 8.1 GM/DL 13.7-17.5 HEMATOCRIT (BEAKER) (test bkwt=523) 25.2 % 40.1-51.0 BLOOD GAS, [id number] 09:34:00 Test Item Value Reference Range Comments PH ARTERIAL (BEAKER) (test atqf=197) 7.46 7.35-7.45 PCO2 ARTERIAL (BEAKER) (test saho=290) 36 mmHg 35-45 PO2 ARTERIAL (BEAKER) (test zxpb=984) 65 mmHg 80-90 O2 SATURATION ARTERIAL (BEAKER) (test hhkv=362) 93.8 % 96.0-97.0 HCO3 ARTERIAL (BEAKER) (test gtob=858) 25 mmol/L 21-29 BASE EXCESS ARTERIAL (BEAKER) (test ylfk=505) 1.0 mmol/L -2.0-3.0 PATIENT TEMPERATURE (BEAKER) (test uqgn=1504) 37.0 C FIO2 (BEAKER) (test jjar=8740) 21.0 % POCT-GLUCOSE [id number] 06:31:00 Test Item Value Reference Range Comments POC-GLUCOSE METER (BEAKER) 123 mg/dL 70-110 TESTED AT [address] (test rjja=9911) [place] [id number] CALCIUM, [id number] 04:56:00 Test Item Value Reference Range Comments CALCIUM IONIZED (BEAKER) (test scih=234) 1.17 mmol/L 1.12-1.27 PH, BLOOD (BEAKER) (test zmnr=9665) 7.41 OXYGEN SATURATION, [id number] 04:55:00 Test Item Value Reference Range Comments O2 SATURATION (MEASURED) (BEAKER) (test udtj=0920) 84.2 % Obtain from CVP [id number] 04:31:00 Test Item Value Reference Range Comments POTASSIUM (BEAKER) (test ntva=730) 3.9 meq/L 3.5-5.1 [id number] 04:31:00 Test Item Value Reference Range Comments MAGNESIUM (BEAKER) (test tpeq=512) 2.2 mg/dL 1.6-2.6 [id number] 04:31:00 Test Item Value Reference Range Comments SODIUM (BEAKER) (test klwy=797) 140 meq/L 136-145 HEPATIC FUNCTION [id number] 04:31:00 Test Item Value Reference Range Comments TOTAL PROTEIN (BEAKER) (test alrk=070) 5.0 gm/dL 6.0-8.3 ALBUMIN (BEAKER) (test xktl=6802) 2.9 g/dL 3.5-5.0 BILIRUBIN TOTAL (BEAKER) (test fgnn=741) 1.7 mg/dL 0.2-1.2 BILIRUBIN DIRECT (BEAKER) (test ixmt=357) 1.3 mg/dL 0.1-0.5 ALKALINE PHOSPHATASE (BEAKER) (test nebv=963) 120 U/L 40-150 AST (SGOT) (BEAKER) (test ziqj=546) 51 U/L 5-34 ALT (SGPT) (BEAKER) (test agur=835) 32 U/L 6-55 PROTHROMBIN [id number] 04:24:00 Test Item Value Reference Range Comments PROTIME (BEAKER) (test qdac=518) 18.0 seconds 11.7-14.7 INR (BEAKER) (test uqju=082) 1.5 <=5.9 RECOMMENDED COUMADIN/WARFARIN INR THERAPY RANGESSTANDARD DOSE: 2.0 - 3.0 Includes: PROPHYLAXIS forvenous thrombosis, systemic embolization; TREATMENT for venous thrombosis and/or pulmonary embolus.HIGH RISK: Target INR is 2.5-3.5 for patients with mechanical heart valves.CBC W/PLT COUNT & AUTO [id number] 04:14:00 Test Item Value Reference Range Comments WHITE BLOOD CELL COUNT (BEAKER) (test egxg=136) 13.2 K/ L 3.5-10.5 RED BLOOD CELL COUNT (BEAKER) (test pkwu=235) 2.79 M/ L 4.63-6.08 HEMOGLOBIN (BEAKER) (test scsp=365) 8.2 GM/DL 13.7-17.5 HEMATOCRIT (BEAKER) (test bryc=359) 25.4 % 40.1-51.0 MEAN CORPUSCULAR VOLUME (BEAKER) (test rhtx=366) 91.0 fL 79.0-92.2 MEAN CORPUSCULAR HEMOGLOBIN (BEAKER) (test 29.4 pg 25.7-32.2 ndfw=177) MEAN CORPUSCULAR HEMOGLOBIN CONC (BEAKER) (test 32.3 GM/DL 32.3-36.5 iesk=671) RED CELL DISTRIBUTION WIDTH (BEAKER) (test 14.9 % 11.6-14.4 qzbs=282) PLATELET COUNT (BEAKER) (test ztqr=409) 93 K/CU MM 150-450 MEAN PLATELET VOLUME (BEAKER) (test iobw=178) 10.7 fL 9.4-12.4 NUCLEATED RED BLOOD CELLS (BEAKER) (test 0 /100 WBC 0-0 hqer=909) NEUTROPHILS RELATIVE PERCENT (BEAKER) (test 81 % rqdl=605) LYMPHOCYTES RELATIVE PERCENT (BEAKER) (test 7 % okrg=002) MONOCYTES RELATIVE PERCENT (BEAKER) (test 10 % qkep=193) EOSINOPHILS RELATIVE PERCENT (BEAKER) (test 0 % ugin=903) BASOPHILS RELATIVE PERCENT (BEAKER) (test 0 % gsiu=853) NEUTROPHILS ABSOLUTE COUNT (BEAKER) (test 10.67 K/ L 1.78-5.38 moxd=231) LYMPHOCYTES ABSOLUTE COUNT (BEAKER) (test 0.96 K/ L 1.32-3.57 dcft=995) MONOCYTES ABSOLUTE COUNT (BEAKER) (test ezfd=857) 1.25 K/ L 0.30-0.82 EOSINOPHILS ABSOLUTE COUNT (BEAKER) (test 0.03 K/ L 0.04-0.54 iaej=337) BASOPHILS ABSOLUTE COUNT (BEAKER) (test dwxo=797) 0.02 K/ L 0.01-0.08 IMMATURE GRANULOCYTES-RELATIVE PERCENT (BEAKER) 2 % 0-1 (test xgzj=8532) [id number] 02:44:00 Test Item Value Reference Range Comments POTASSIUM (BEAKER) (test fnjx=316) 3.4 meq/L 3.5-5.1 HEMOGLOBIN AND [id number] 02:33:00 Test Item Value Reference Range Comments HEMOGLOBIN (BEAKER) (test tjpz=908) 8.3 GM/DL 13.7-17.5 HEMATOCRIT (BEAKER) (test kezd=332) 25.6 % 40.1-51.0 POCT-GLUCOSE [id number] 00:56:00 Test Item Value Reference Range Comments POC-GLUCOSE METER (BEAKER) 104 mg/dL 70-110 TESTED AT [facility] [address] [facility] (test lvie=8054) [facility] [address] BASIC METABOLIC [id number] 23:41:00 Test Item Value Reference Range Comments SODIUM (BEAKER) (test 139 meq/L 136-145 ierh=903) POTASSIUM (BEAKER) (test 4.0 meq/L 3.5-5.1 pnqq=913) CHLORIDE (BEAKER) (test 105 meq/L 98-107 cdnc=741) CO2 (BEAKER) (test 23 meq/L 22-29 vgcj=215) BLOOD UREA NITROGEN 22 mg/dL 7-21 (BEAKER) (test lgeh=691) CREATININE (BEAKER) (test 1.32 mg/dL 0.57-1.25 idna=656) GLUCOSE RANDOM (BEAKER) 99 mg/dL 70-105 (test nkth=442) CALCIUM (BEAKER) (test 8.6 mg/dL 8.4-10.2 mnmb=944) EGFR (BEAKER) (test 56 mL/min/1.73 sq m ESTIMATED GFR IS NOT wnjp=8768) ACCURATE CREATININE CLEARANCE IN PREDICTING GLOMERULAR FILTRATION RATE. ESTIMATED GFR IS NOT APPLICABLE FOR DIALYSIS PATIENTS. [id number] 18:36:00 Test Item Value Reference Range Comments POTASSIUM (BEAKER) (test dlgm=863) 3.9 meq/L 3.5-5.1 [id number] 18:36:00 Test Item Value Reference Range Comments MAGNESIUM (BEAKER) (test cizp=703) 1.9 mg/dL 1.6-2.6 [id number] 18:36:00 Test Item Value Reference Range Comments PHOSPHORUS (BEAKER) (test inog=723) 3.5 mg/dL 2.3-4.7 [id number] 18:36:00 Test Item Value Reference Range Comments SODIUM (BEAKER) (test kxyw=697) 139 meq/L 136-145 BASIC METABOLIC [id number] 18:36:00 Test Item Value Reference Range Comments SODIUM (BEAKER) (test 139 meq/L 136-145 aeha=188) POTASSIUM (BEAKER) (test 3.9 meq/L 3.5-5.1 mqiy=678) CHLORIDE (BEAKER) (test 104 meq/L 98-107 xupq=884) CO2 (BEAKER) (test 24 meq/L 22-29 kkwk=009) BLOOD UREA NITROGEN 24 mg/dL 7-21 (BEAKER) (test xoqc=070) CREATININE (BEAKER) (test 1.33 mg/dL 0.57-1.25 rjuc=285) GLUCOSE RANDOM (BEAKER) 110 mg/dL 70-105 (test avcc=703) CALCIUM (BEAKER) (test 8.5 mg/dL 8.4-10.2 stfh=415) EGFR (BEAKER) (test 56 mL/min/1.73 sq m ESTIMATED GFR IS NOT ftya=0222) ACCURATE CREATININE CLEARANCE IN PREDICTING GLOMERULAR FILTRATION RATE. ESTIMATED GFR IS NOT APPLICABLE FOR DIALYSIS PATIENTS. PH, [id number] 18:28:00 Test Item Value Reference Range Comments PH ARTERIAL (BEAKER) (test jguw=015) 7.44 7.35-7.45 CALCIUM, [id number] 18:28:00 Test Item Value Reference Range Comments CALCIUM IONIZED (BEAKER) (test jaee=770) 1.16 mmol/L 1.12-1.27 PH, BLOOD (BEAKER) (test owyn=8183) 7.44 HEMOGLOBIN AND [id number] 18:21:00 Test Item Value Reference Range Comments HEMOGLOBIN (BEAKER) (test lctl=330) 8.6 GM/DL 13.7-17.5 HEMATOCRIT (BEAKER) (test kjmz=320) 26.2 % 40.1-51.0 POCT-GLUCOSE [id number] 17:47:00 Test Item Value Reference Range Comments POC-GLUCOSE METER (BEAKER) 114 mg/dL 70-110 TESTED AT [facility] [address] [facility] (test ezhh=6933) [facility] [address] [id number] 14:40:00 Test Item Value Reference Range Comments PROCALCITONIN (BEAKER) (test ynno=7969) 0.65 ng/mL <0.05 SEPSIS RISK (ng/mL)Low: 0.05-0.50Intermediate: 0.51-2.00High: & gt;=[id number] 13:50:00 Test Item Value Reference Range Comments POTASSIUM (BEAKER) (test oobm=753) 4.1 meq/L 3.5-5.1 BASIC METABOLIC [id number] 13:50:00 Test Item Value Reference Range Comments SODIUM (BEAKER) (test 139 meq/L 136-145 hapv=390) POTASSIUM (BEAKER) (test 4.1 meq/L 3.5-5.1 jsoa=818) CHLORIDE (BEAKER) (test 104 meq/L 98-107 patu=682) CO2 (BEAKER) (test 24 meq/L 22-29 fqyj=186) BLOOD UREA NITROGEN 24 mg/dL 7-21 (BEAKER) (test lccu=263) CREATININE (BEAKER) (test 1.32 mg/dL 0.57-1.25 lmtf=553) GLUCOSE RANDOM (BEAKER) 124 mg/dL 70-105 (test czmd=990) CALCIUM (BEAKER) (test 8.6 mg/dL 8.4-10.2 hhtn=667) EGFR (BEAKER) (test 56 mL/min/1.73 sq m ESTIMATED GFR IS NOT ykpe=4392) ACCURATE CREATININE CLEARANCE IN PREDICTING GLOMERULAR FILTRATION RATE. ESTIMATED GFR IS NOT APPLICABLE FOR DIALYSIS PATIENTS. VANCOMYCIN LEVEL, [id number] 13:49:00 Test Item Value Reference Range Comments VANCOMYCIN TROUGH (BEAKER) (test xqsz=012) 16.0 ug/mL 10.0-20.0 CALCIUM, [id number] 13:32:00 Test Item Value Reference Range Comments CALCIUM IONIZED (BEAKER) (test auff=423) 1.17 mmol/L 1.12-1.27 PH, BLOOD (BEAKER) (test dmmz=1299) 7.45 POCT-GLUCOSE [id number] 13:32:00 Test Item Value Reference Range Comments POC-GLUCOSE METER (BEAKER) 151 mg/dL 70-110 TESTED AT [facility] [address] [facility] (test xdrc=1153) [facility] [address] BLOOD GAS, [id number] 10:06:00 Test Item Value Reference Range Comments PH ARTERIAL (BEAKER) (test hkff=595) 7.46 7.35-7.45 PCO2 ARTERIAL (BEAKER) (test fukd=874) 36 mmHg 35-45 PO2 ARTERIAL (BEAKER) (test wdlk=069) 110 mmHg 80-90 O2 SATURATION ARTERIAL (BEAKER) (test okhm=235) 98.3 % 96.0-97.0 HCO3 ARTERIAL (BEAKER) (test hpcz=943) 25 mmol/L 21-29 BASE EXCESS ARTERIAL (BEAKER) (test eyik=062) 0.8 mmol/L -2.0-3.0 PATIENT TEMPERATURE (BEAKER) (test dcyv=6406) 36.7 C FIO2 (BEAKER) (test vjea=2622) 28.0 % [id number] 08:56:00 Test Item Value Reference Range Comments POTASSIUM (BEAKER) (test sznu=357) 4.2 meq/L 3.5-5.1 BASIC METABOLIC [id number] 08:56:00 Test Item Value Reference Range Comments SODIUM (BEAKER) (test 138 meq/L 136-145 suxj=338) POTASSIUM (BEAKER) (test 4.2 meq/L 3.5-5.1 nvjs=967) CHLORIDE (BEAKER) (test 104 meq/L 98-107 apid=518) CO2 (BEAKER) (test 24 meq/L 22-29 vdbm=428) BLOOD UREA NITROGEN 24 mg/dL 7-21 (BEAKER) (test hwle=818) CREATININE (BEAKER) (test 1.35 mg/dL 0.57-1.25 itfd=105) GLUCOSE RANDOM (BEAKER) 129 mg/dL 70-105 (test vlmb=223) CALCIUM (BEAKER) (test 8.5 mg/dL 8.4-10.2 eimj=727) EGFR (BEAKER) (test 55 mL/min/1.73 sq m ESTIMATED GFR IS NOT ayrl=6318) ACCURATE CREATININE CLEARANCE IN PREDICTING GLOMERULAR FILTRATION RATE. ESTIMATED GFR IS NOT APPLICABLE FOR DIALYSIS PATIENTS. HEMOGLOBIN AND [id number] 08:38:00 Test Item Value Reference Range Comments HEMOGLOBIN (BEAKER) (test jjob=522) 7.9 GM/DL 13.7-17.5 HEMATOCRIT (BEAKER) (test rwzl=538) 23.9 % 40.1-51.0 BLOOD [id number] 06:00:00 Test Item Value Reference Range Comments CULTURE (BEAKER) (test gnsw=1655) No growth in 5 days BLOOD [id number] 06:00:00 Test Item Value Reference Range Comments CULTURE (BEAKER) (test palg=8704) No growth in 5 days POCT-GLUCOSE [id number] 05:29:00 Test Item Value Reference Range Comments POC-GLUCOSE METER (BEAKER) 118 mg/dL 70-110 TESTED AT [facility] [address] [facility] (test bdbl=0877) [facility] [address] CALCIUM, [id number] 04:13:00 Test Item Value Reference Range Comments CALCIUM IONIZED (BEAKER) (test ybya=611) 1.18 mmol/L 1.12-1.27 PH, BLOOD (BEAKER) (test uazb=4443) 7.47 [id number] 04:13:00 Test Item Value Reference Range Comments POTASSIUM (BEAKER) (test vyti=111) 4.4 meq/L 3.5-5.1 [id number] 04:13:00 Test Item Value Reference Range Comments MAGNESIUM (BEAKER) (test rgsy=773) 1.9 mg/dL 1.6-2.6 [id number] 04:13:00 Test Item Value Reference Range Comments PHOSPHORUS (BEAKER) (test mdkc=540) 2.9 mg/dL 2.3-4.7 [id number] 04:13:00 Test Item Value Reference Range Comments SODIUM (BEAKER) (test vjdl=952) 140 meq/L 136-145 HEPATIC FUNCTION [id number] 04:13:00 Test Item Value Reference Range Comments TOTAL PROTEIN (BEAKER) (test iwqo=973) 5.0 gm/dL 6.0-8.3 ALBUMIN (BEAKER) (test ggan=1466) 2.9 g/dL 3.5-5.0 BILIRUBIN TOTAL (BEAKER) (test pqwz=215) 1.8 mg/dL 0.2-1.2 BILIRUBIN DIRECT (BEAKER) (test nzjf=940) 1.3 mg/dL 0.1-0.5 ALKALINE PHOSPHATASE (BEAKER) (test aytm=840) 115 U/L 40-150 AST (SGOT) (BEAKER) (test vlqh=527) 57 U/L 5-34 ALT (SGPT) (BEAKER) (test idfu=354) 31 U/L 6-55 PROTHROMBIN [id number] 04:12:00 Test Item Value Reference Range Comments PROTIME (BEAKER) (test ktjm=806) 15.8 seconds 11.7-14.7 INR (BEAKER) (test rzzx=360) 1.3 <=5.9 RECOMMENDED COUMADIN/WARFARIN INR THERAPY RANGESSTANDARD DOSE: 2.0 - 3.0 Includes: PROPHYLAXIS forvenous thrombosis, systemic embolization; TREATMENT for venous thrombosis and/or pulmonary embolus.HIGH RISK: Target INR is 2.5-3.5 for patients with mechanical heart valves.CBC W/PLT COUNT & AUTO [id number] 04:01:00 Test Item Value Reference Range Comments WHITE BLOOD CELL COUNT (BEAKER) (test voze=128) 14.9 K/ L 3.5-10.5 RED BLOOD CELL COUNT (BEAKER) (test eued=650) 2.76 M/ L 4.63-6.08 HEMOGLOBIN (BEAKER) (test zuix=620) 8.0 GM/DL 13.7-17.5 HEMATOCRIT (BEAKER) (test zsdo=012) 24.9 % 40.1-51.0 MEAN CORPUSCULAR VOLUME (BEAKER) (test kvsv=704) 90.2 fL 79.0-92.2 MEAN CORPUSCULAR HEMOGLOBIN (BEAKER) (test 29.0 pg 25.7-32.2 mfvk=650) MEAN CORPUSCULAR HEMOGLOBIN CONC (BEAKER) (test 32.1 GM/DL 32.3-36.5 jtoy=250) RED CELL DISTRIBUTION WIDTH (BEAKER) (test 14.9 % 11.6-14.4 ugwq=827) PLATELET COUNT (BEAKER) (test crey=632) 70 K/CU MM 150-450 MEAN PLATELET VOLUME (BEAKER) (test scuu=666) 11.5 fL 9.4-12.4 NUCLEATED RED BLOOD CELLS (BEAKER) (test 0 /100 WBC 0-0 vcqp=547) NEUTROPHILS RELATIVE PERCENT (BEAKER) (test 86 % cjag=362) LYMPHOCYTES RELATIVE PERCENT (BEAKER) (test 6 % ajda=518) MONOCYTES RELATIVE PERCENT (BEAKER) (test 7 % cvhi=958) EOSINOPHILS RELATIVE PERCENT (BEAKER) (test 0 % pnnq=635) BASOPHILS RELATIVE PERCENT (BEAKER) (test 0 % sjtr=186) NEUTROPHILS ABSOLUTE COUNT (BEAKER) (test 12.77 K/ L 1.78-5.38 znvh=049) LYMPHOCYTES ABSOLUTE COUNT (BEAKER) (test 0.87 K/ L 1.32-3.57 mfep=386) MONOCYTES ABSOLUTE COUNT (BEAKER) (test tfwv=462) 1.02 K/ L 0.30-0.82 EOSINOPHILS ABSOLUTE COUNT (BEAKER) (test 0.01 K/ L 0.04-0.54 iqjq=347) BASOPHILS ABSOLUTE COUNT (BEAKER) (test imlh=741) 0.02 K/ L 0.01-0.08 IMMATURE GRANULOCYTES-RELATIVE PERCENT (BEAKER) 1 % 0-1 (test awsx=5163) POCT-GLUCOSE [id number] 00:06:00 Test Item Value Reference Range Comments POC-GLUCOSE METER (BEAKER) 81 mg/dL 70-110 TESTED AT [facility] [address] [facility] (test xzal=8943) [facility] [address] HEMOGLOBIN AND [id number] 23:58:00 Test Item Value Reference Range Comments HEMOGLOBIN (BEAKER) (test szjk=580) 8.0 GM/DL 13.7-17.5 HEMATOCRIT (BEAKER) (test emtf=283) 24.2 % 40.1-51.0 [id number] 21:58:00 Test Item Value Reference Range Comments POTASSIUM (BEAKER) (test jyxy=772) 4.2 meq/L 3.5-5.1 BASIC METABOLIC [id number] 21:58:00 Test Item Value Reference Range Comments SODIUM (BEAKER) (test 139 meq/L 136-145 scvt=685) POTASSIUM (BEAKER) (test 4.2 meq/L 3.5-5.1 pdug=558) CHLORIDE (BEAKER) (test 107 meq/L 98-107 maty=653) CO2 (BEAKER) (test 24 meq/L 22-29 xdqc=399) BLOOD UREA NITROGEN 23 mg/dL 7-21 (BEAKER) (test hfld=224) CREATININE (BEAKER) (test 1.40 mg/dL 0.57-1.25 dutd=735) GLUCOSE RANDOM (BEAKER) 97 mg/dL 70-105 (test dylk=039) CALCIUM (BEAKER) (test 8.3 mg/dL 8.4-10.2 jmio=672) EGFR (BEAKER) (test 52 mL/min/1.73 sq m ESTIMATED GFR IS NOT fgkq=1391) ACCURATE CREATININE CLEARANCE IN PREDICTING GLOMERULAR FILTRATION RATE. ESTIMATED GFR IS NOT APPLICABLE FOR DIALYSIS PATIENTS. CALCIUM, [id number] 21:53:00 Test Item Value Reference Range Comments CALCIUM IONIZED (BEAKER) (test mlsm=185) 1.18 mmol/L 1.12-1.27 PH, BLOOD (BEAKER) (test drbr=3020) 7.48 [id number] 18:52:00 Test Item Value Reference Range Comments LIPASE (BEAKER) (test dgub=075) 57 U/L 8-78 [id number] 18:35:00 Test Item Value Reference Range Comments POTASSIUM (BEAKER) (test ksck=334) 4.5 meq/L 3.5-5.1 [id number] 18:35:00 Test Item Value Reference Range Comments MAGNESIUM (BEAKER) (test dnus=193) 1.9 mg/dL 1.6-2.6 [id number] 18:35:00 Test Item Value Reference Range Comments PHOSPHORUS (BEAKER) (test szeb=979) 3.1 mg/dL 2.3-4.7 [id number] 18:35:00 Test Item Value Reference Range Comments SODIUM (BEAKER) (test kqog=698) 140 meq/L 136-145 BASIC METABOLIC [id number] 18:35:00 Test Item Value Reference Range Comments SODIUM (BEAKER) (test 140 meq/L 136-145 qfpf=874) POTASSIUM (BEAKER) (test 4.5 meq/L 3.5-5.1 zuha=454) CHLORIDE (BEAKER) (test 106 meq/L 98-107 rblt=872) CO2 (BEAKER) (test 24 meq/L 22-29 ohnk=756) BLOOD UREA NITROGEN 25 mg/dL 7-21 (BEAKER) (test pyta=927) CREATININE (BEAKER) (test 1.46 mg/dL 0.57-1.25 jhvt=256) GLUCOSE RANDOM (BEAKER) 122 mg/dL 70-105 (test ptar=524) CALCIUM (BEAKER) (test 8.4 mg/dL 8.4-10.2 jinu=098) EGFR (BEAKER) (test 50 mL/min/1.73 sq m ESTIMATED GFR IS NOT ixii=9715) ACCURATE CREATININE CLEARANCE IN PREDICTING GLOMERULAR FILTRATION RATE. ESTIMATED GFR IS NOT APPLICABLE FOR DIALYSIS PATIENTS. HEMOGLOBIN AND [id number] 18:16:00 Test Item Value Reference Range Comments HEMOGLOBIN (BEAKER) (test noxa=868) 7.7 GM/DL 13.7-17.5 HEMATOCRIT (BEAKER) (test khml=295) 23.7 % 40.1-51.0 PH, [id number] 18:07:00 Test Item Value Reference Range Comments PH ARTERIAL (BEAKER) (test npey=173) 7.47 7.35-7.45 POCT-GLUCOSE [id number] 17:24:00 Test Item Value Reference Range Comments POC-GLUCOSE METER (BEAKER) 151 mg/dL 70-110 TESTED AT [address] (test bkla=0308) [place] [address] [id number] 12:50:00 Test Item Value Reference Range Comments POTASSIUM (BEAKER) (test obma=426) 5.1 meq/L 3.5-5.1 CALCIUM, [id number] 12:37:00 Test Item Value Reference Range Comments CALCIUM IONIZED (BEAKER) (test vmlj=492) 1.15 mmol/L 1.12-1.27 PH, BLOOD (BEAKER) (test jsly=1161) 7.46 HEMOGLOBIN AND [id number] 12:32:00 Test Item Value Reference Range Comments HEMOGLOBIN (BEAKER) (test afzg=691) 8.0 GM/DL 13.7-17.5 HEMATOCRIT (BEAKER) (test droc=541) 24.5 % 40.1-51.0 POCT-GLUCOSE [id number] 12:04:00 Test Item Value Reference Range Comments POC-GLUCOSE METER (BEAKER) 191 mg/dL 70-110 TESTED AT [address] (test kirl=1833) [place] [address] [id number] 09:30:00 Test Item Value Reference Range Comments POTASSIUM (BEAKER) (test pezn=618) 4.9 meq/L 3.5-5.1 [id number] 09:28:00 Test Item Value Reference Range Comments PARTIAL THROMBOPLASTIN TIME (BEAKER) (test 33.3 seconds 22.5-36.0 swgh=093) PROTHROMBIN [id number] 09:27:00 Test Item Value Reference Range Comments PROTIME (BEAKER) (test ilmt=918) 15.6 seconds 11.7-14.7 INR (BEAKER) (test qkyu=475) 1.2 <=5.9 RECOMMENDED COUMADIN/WARFARIN INR THERAPY RANGESSTANDARD DOSE: 2.0 - 3.0 Includes: PROPHYLAXIS forvenous thrombosis, systemic embolization; TREATMENT for venous thrombosis and/or pulmonary embolus.HIGH RISK: Target INR is 2.5-3.5 for patients with mechanical heart valves.[id number] 09:22:00 Test Item Value Reference Range Comments POTASSIUM (BEAKER) (test kncb=212) 4.9 meq/L 3.5-5.1 [id number] 09:22:00 Test Item Value Reference Range Comments MAGNESIUM (BEAKER) (test egoq=613) 2.1 mg/dL 1.6-2.6 [id number] 09:22:00 Test Item Value Reference Range Comments PHOSPHORUS (BEAKER) (test rpfd=578) 3.6 mg/dL 2.3-4.7 [id number] 09:22:00 Test Item Value Reference Range Comments SODIUM (BEAKER) (test xkbd=351) 140 meq/L 136-145 BASIC METABOLIC [id number] 09:22:00 Test Item Value Reference Range Comments SODIUM (BEAKER) (test 140 meq/L 136-145 avko=012) POTASSIUM (BEAKER) (test 4.9 meq/L 3.5-5.1 orqo=720) CHLORIDE (BEAKER) (test 106 meq/L 98-107 cemy=868) CO2 (BEAKER) (test 21 meq/L 22-29 fhvu=564) BLOOD UREA NITROGEN 24 mg/dL 7-21 (BEAKER) (test uokf=839) CREATININE (BEAKER) (test 1.56 mg/dL 0.57-1.25 zyhs=091) GLUCOSE RANDOM (BEAKER) 147 mg/dL 70-105 (test doeg=502) CALCIUM (BEAKER) (test 8.4 mg/dL 8.4-10.2 ytev=499) EGFR (BEAKER) (test 46 mL/min/1.73 sq m ESTIMATED GFR IS NOT iqjh=2214) ACCURATE CREATININE CLEARANCE IN PREDICTING GLOMERULAR FILTRATION RATE. ESTIMATED GFR IS NOT APPLICABLE FOR DIALYSIS PATIENTS. HEPATIC FUNCTION [id number] 09:22:00 Test Item Value Reference Range Comments TOTAL PROTEIN (BEAKER) (test lxkv=337) 4.7 gm/dL 6.0-8.3 ALBUMIN (BEAKER) (test nvad=2638) 2.7 g/dL 3.5-5.0 BILIRUBIN TOTAL (BEAKER) (test eooy=766) 1.8 mg/dL 0.2-1.2 BILIRUBIN DIRECT (BEAKER) (test nfhq=049) 1.3 mg/dL 0.1-0.5 ALKALINE PHOSPHATASE (BEAKER) (test gqxm=930) 112 U/L 40-150 AST (SGOT) (BEAKER) (test ennw=675) 69 U/L 5-34 ALT (SGPT) (BEAKER) (test taon=661) 33 U/L 6-55 SPUTUM CULTURE + GRAM [id number] 08:37:00 Test Item Value Reference Range Comments CULTURE (BEAKER) (test Organism(s) under bkwp=2548) evaluation Clindamycin (test code=10) Erythromycin (test code=4) Linezolid (test code=40) Nitrofurantoin (test code=23) Oxacillin (test code=14) Rifampin (test code=43) Tetracycline (test code=2) Trimethoprim + Sulfamethoxazole (test code=47) Vancomycin (test code=13) CULTURE (BEAKER) (test <1+ Staphylococcus eama=8647) aureus GRAM STAIN RESULT (BEAKER) 1+ WBCs (test kcjc=3274) GRAM STAIN RESULT (BEAKER) 0-5 epithelial cells (test bwxz=218580) GRAM STAIN RESULT (BEAKER) No organisms seen (test mqpu=956036) POCT-GLUCOSE [id number] 06:55:00 Test Item Value Reference Range Comments POC-GLUCOSE METER (BEAKER) 153 mg/dL 70-110 TESTED AT [facility] [address] (test idbl=5230) [place] [address] [id number] 06:01:00 Test Item Value Reference Range Comments PROTIME (BEAKER) (test stcm=387) 15.4 seconds 11.7-14.7 INR (BEAKER) (test jiag=964) 1.2 <=5.9 PARTIAL THROMBOPLASTIN TIME (BEAKER) (test 34.0 seconds 22.5-36.0 yuir=692) RECOMMENDED COUMADIN/WARFARIN INR THERAPY RANGESSTANDARD DOSE: 2.0 - 3.0 Includes: PROPHYLAXIS forvenous thrombosis, systemic embolization; TREATMENT for venous thrombosis and/or pulmonary embolus.HIGH RISK: Target INR is 2.5-3.5 for patients with mechanical heart valves.OXYGEN SATURATION, [id number] 06:01:00 Test Item Value Reference Range Comments O2 SATURATION (MEASURED) (BEAKER) (test nvej=0996) 85.1 % Obtain from CVP portCALCIUM, [id number] 06:01:00 Test Item Value Reference Range Comments CALCIUM IONIZED (BEAKER) (test mktk=605) 1.13 mmol/L 1.12-1.27 PH, BLOOD (BEAKER) (test tgwx=8598) 7.41 CBC W/PLT COUNT & AUTO [id number] 05:43:00 Test Item Value Reference Range Comments WHITE BLOOD CELL COUNT (BEAKER) (test frzg=602) 15.8 K/ L 3.5-10.5 RED BLOOD CELL COUNT (BEAKER) (test unhv=252) 2.64 M/ L 4.63-6.08 HEMOGLOBIN (BEAKER) (test spcq=401) 7.7 GM/DL 13.7-17.5 HEMATOCRIT (BEAKER) (test kwvi=705) 23.6 % 40.1-51.0 MEAN CORPUSCULAR VOLUME (BEAKER) (test dkgw=824) 89.4 fL 79.0-92.2 MEAN CORPUSCULAR HEMOGLOBIN (BEAKER) (test 29.2 pg 25.7-32.2 gttu=683) MEAN CORPUSCULAR HEMOGLOBIN CONC (BEAKER) (test 32.6 GM/DL 32.3-36.5 kicf=775) RED CELL DISTRIBUTION WIDTH (BEAKER) (test 15.1 % 11.6-14.4 zhrn=155) PLATELET COUNT (BEAKER) (test dtrz=377) 72 K/CU MM 150-450 MEAN PLATELET VOLUME (BEAKER) (test hmcj=087) 12.1 fL 9.4-12.4 NUCLEATED RED BLOOD CELLS (BEAKER) (test 1 /100 WBC 0-0 saqi=826) NEUTROPHILS RELATIVE PERCENT (BEAKER) (test 83 % kigj=543) LYMPHOCYTES RELATIVE PERCENT (BEAKER) (test 7 % wuyp=004) MONOCYTES RELATIVE PERCENT (BEAKER) (test 9 % yrsg=782) EOSINOPHILS RELATIVE PERCENT (BEAKER) (test 0 % rriu=638) BASOPHILS RELATIVE PERCENT (BEAKER) (test 0 % viog=343) NEUTROPHILS ABSOLUTE COUNT (BEAKER) (test 13.18 K/ L 1.78-5.38 iwku=018) LYMPHOCYTES ABSOLUTE COUNT (BEAKER) (test 1.14 K/ L 1.32-3.57 lrfj=962) MONOCYTES ABSOLUTE COUNT (BEAKER) (test rtbm=685) 1.34 K/ L 0.30-0.82 EOSINOPHILS ABSOLUTE COUNT (BEAKER) (test 0.00 K/ L 0.04-0.54 sufm=893) BASOPHILS ABSOLUTE COUNT (BEAKER) (test dslo=850) 0.01 K/ L 0.01-0.08 IMMATURE GRANULOCYTES-RELATIVE PERCENT (BEAKER) 1 % 0-1 (test jntg=3120) HEMOGLOBIN AND [id number] 05:41:00 Test Item Value Reference Range Comments HEMOGLOBIN (BEAKER) (test hygv=354) 7.7 GM/DL 13.7-17.5 HEMATOCRIT (BEAKER) (test rouz=353) 23.6 % 40.1-51.0 BLOOD GAS, [id number] 05:34:00 Test Item Value Reference Range Comments PH ARTERIAL (BEAKER) (test jjco=338) 7.46 7.35-7.45 PCO2 ARTERIAL (BEAKER) (test foof=731) 30 mmHg 35-45 PO2 ARTERIAL (BEAKER) (test sajt=929) 186 mmHg 80-90 O2 SATURATION ARTERIAL (BEAKER) (test bgof=513) 99.4 % 96.0-97.0 HCO3 ARTERIAL (BEAKER) (test fezb=081) 21 mmol/L 21-29 BASE EXCESS ARTERIAL (BEAKER) (test lhxp=075) -2.2 mmol/L -2.0-3.0 PATIENT TEMPERATURE (BEAKER) (test lmyw=2990) 36.1 C FIO2 (BEAKER) (test xqgr=1128) 25.0 % LACTIC ACID, ARTERIAL, WHOLE [id number] 05:18:00 Test Item Value Reference Range Comments LACTATE BLOOD ARTERIAL (2) (BEAKER) (test 0.6 mmol/L 0.5-2.2 jlds=7295) Effective 02/25/2016: Units/Reference Range ChangeNew: 0.5-2.2 mmol/L Previous: 5 -20 mg/[id number] 01:03:00 Test Item Value Reference Range Comments POTASSIUM (BEAKER) (test ckfc=957) 4.7 meq/L 3.5-5.1 HEMOGLOBIN AND [id number] 00:48:00 Test Item Value Reference Range Comments HEMOGLOBIN (BEAKER) (test elcy=655) 7.9 GM/DL 13.7-17.5 HEMATOCRIT (BEAKER) (test ddew=007) 24.1 % 40.1-51.0 POCT-GLUCOSE [id number] 23:46:00 Test Item Value Reference Range Comments POC-GLUCOSE METER (BEAKER) 146 mg/dL 70-110 TESTED AT [facility] [address] [facility] (test jdew=1961) [facility] [address] [id number] 20:23:00 Test Item Value Reference Range Comments POTASSIUM (BEAKER) (test rayv=290) 4.7 meq/L 3.5-5.1 PROTHROMBIN TIME/[id number] 20:14:00 Test Item Value Reference Range Comments PROTIME (BEAKER) (test adeg=359) 16.1 seconds 11.7-14.7 INR (BEAKER) (test lpuw=278) 1.3 <=5.9 RECOMMENDED COUMADIN/WARFARIN INR THERAPY RANGESSTANDARD DOSE: 2.0 - 3.0 Includes: PROPHYLAXIS forvenous thrombosis, systemic embolization; TREATMENT for venous thrombosis and/or pulmonary embolus.HIGH RISK: Target INR is 2.5-3.5 for patients with mechanical heart valves.[id number] 20:14:00 Test Item Value Reference Range Comments PARTIAL THROMBOPLASTIN TIME (BEAKER) (test 36.0 seconds 22.5-36.0 rxgf=048) CALCIUM, [id number] 20:02:00 Test Item Value Reference Range Comments CALCIUM IONIZED (BEAKER) (test vhik=576) 1.14 mmol/L 1.12-1.27 PH, BLOOD (BEAKER) (test pxjo=1058) 7.42 HEMOGLOBIN AND [id number] 19:04:00 Test Item Value Reference Range Comments HEMOGLOBIN (BEAKER) (test kxrv=151) 8.0 GM/DL 13.7-17.5 HEMATOCRIT (BEAKER) (test sdax=909) 24.3 % 40.1-51.0 [id number] 16:46:00 Test Item Value Reference Range Comments POTASSIUM (BEAKER) (test qybk=635) 5.0 meq/L 3.5-5.1 [id number] 16:46:00 Test Item Value Reference Range Comments MAGNESIUM (BEAKER) (test tern=792) 2.1 mg/dL 1.6-2.6 [id number] 16:46:00 Test Item Value Reference Range Comments PHOSPHORUS (BEAKER) (test gzgp=596) 3.1 mg/dL 2.3-4.7 [id number] 16:46:00 Test Item Value Reference Range Comments SODIUM (BEAKER) (test akve=853) 138 meq/L 136-145 PLATELET [id number] 16:34:00 Test Item Value Reference Range Comments PLATELET COUNT (BEAKER) (test vvgq=308) 57 K/CU MM 150-450 BLOOD GAS, [id number] 16:31:00 Test Item Value Reference Range Comments PH VENOUS (BEAKER) (test jmgl=256) 7.43 7.32-7.42 PCO2 VENOUS (BEAKER) (test azyx=628) 38 mmHg 41-51 PO2 VENOUS (BEAKER) (test rgkt=069) 40 mmHg 25-40 O2 SATURATION VENOUS (BEAKER) (test uyqj=077) 77.3 % 40.0-70.0 HCO3 VENOUS (BEAKER) (test gtdb=000) 25 mmol/L 21-29 BASE EXCESS VENOUS (BEAKER) (test mqbz=840) 0.4 mmol/L -2.0-3.0 PATIENT TEMPERATURE (BEAKER) (test rkxi=2223) 37.0 C POCT-GLUCOSE [id number] 16:25:00 Test Item Value Reference Range Comments POC-GLUCOSE METER (BEAKER) 135 mg/dL 70-110 TESTED AT [facility] [address] [facility] (test evjk=6196) [facility] [address] HEMOGLOBIN AND [id number] 14:50:00 Test Item Value Reference Range Comments HEMOGLOBIN (BEAKER) (test orpd=995) 7.0 GM/DL 13.7-17.5 HEMATOCRIT (BEAKER) (test pmcx=003) 21.1 % 40.1-51.0 [id number] 12:41:00 Test Item Value Reference Range Comments LIPASE (BEAKER) (test klhf=750) 44 U/L 8-78 [id number] 12:41:00 Test Item Value Reference Range Comments POTASSIUM (BEAKER) (test exdf=167) 4.7 meq/L 3.5-5.1 LACTIC ACID, ARTERIAL, WHOLE [id number] 12:34:00 Test Item Value Reference Range Comments LACTATE BLOOD ARTERIAL (2) (BEAKER) (test 0.6 mmol/L 0.5-2.2 wsii=4501) Effective 02/25/2016: Units/Reference Range ChangeNew: 0.5-2.2 mmol/L Previous: 5 -20 mg/dLBLOOD GAS, [id number] 12:32:00 Test Item Value Reference Range Comments PH ARTERIAL (BEAKER) (test lyxr=907) 7.49 7.35-7.45 PCO2 ARTERIAL (BEAKER) (test lmhs=409) 33 mmHg 35-45 PO2 ARTERIAL (BEAKER) (test cmdz=397) 137 mmHg 80-90 O2 SATURATION ARTERIAL (BEAKER) (test qghf=098) 98.9 % 96.0-97.0 HCO3 ARTERIAL (BEAKER) (test kmyv=547) 24 mmol/L 21-29 BASE EXCESS ARTERIAL (BEAKER) (test uhew=707) 0.9 mmol/L -2.0-3.0 PATIENT TEMPERATURE (BEAKER) (test onub=2099) 37.0 C FIO2 (BEAKER) (test ikhj=6907) 24.0 % CALCIUM, [id number] 12:32:00 Test Item Value Reference Range Comments CALCIUM IONIZED (BEAKER) (test esyv=545) 1.13 mmol/L 1.12-1.27 PH, BLOOD (BEAKER) (test pewg=5762) 7.49 [id number] 12:26:00 Test Item Value Reference Range Comments PARTIAL THROMBOPLASTIN TIME (BEAKER) (test 38.8 seconds 22.5-36.0 bcld=253) PROTHROMBIN [id number] 12:25:00 Test Item Value Reference Range Comments PROTIME (BEAKER) (test suyf=532) 16.4 seconds 11.7-14.7 INR (BEAKER) (test ruta=281) 1.3 <=5.9 RECOMMENDED COUMADIN/WARFARIN INR THERAPY RANGESSTANDARD DOSE: 2.0 - 3.0 Includes: PROPHYLAXIS forvenous thrombosis, systemic embolization; TREATMENT for venous thrombosis and/or pulmonary embolus.HIGH RISK: Target INR is 2.5-3.5 for patients with mechanical heart valves.POCT-GLUCOSE [id number] 12:04:00 Test Item Value Reference Range Comments POC-GLUCOSE METER (BEAKER) 121 mg/dL 70-110 TESTED AT [facility] [address] [facility] (test yjsn=4854) [facility] [address] HEMOGLOBIN AND [id number] 10:46:00 Test Item Value Reference Range Comments HEMOGLOBIN (BEAKER) (test shvc=924) 7.1 GM/DL 13.7-17.5 HEMATOCRIT (BEAKER) (test xemr=839) 21.1 % 40.1-51.0 CALCIUM, [id number] 09:20:00 Test Item Value Reference Range Comments CALCIUM IONIZED (BEAKER) (test oqjs=417) 1.13 mmol/L 1.12-1.27 PH, BLOOD (BEAKER) (test owdp=0112) 7.44 CBC W/PLT COUNT & AUTO [id number] 08:02:00 Test Item Value Reference Range Comments WHITE BLOOD CELL COUNT (BEAKER) (test dtup=301) 16.8 K/ L 3.5-10.5 RED BLOOD CELL COUNT (BEAKER) (test twnn=459) 2.43 M/ L 4.63-6.08 HEMOGLOBIN (BEAKER) (test rmov=945) 7.4 GM/DL 13.7-17.5 HEMATOCRIT (BEAKER) (test vcbg=648) 21.4 % 40.1-51.0 MEAN CORPUSCULAR VOLUME (BEAKER) (test ppwq=667) 88.1 fL 79.0-92.2 MEAN CORPUSCULAR HEMOGLOBIN (BEAKER) (test 30.5 pg 25.7-32.2 xees=217) MEAN CORPUSCULAR HEMOGLOBIN CONC (BEAKER) (test 34.6 GM/DL 32.3-36.5 hwbw=013) RED CELL DISTRIBUTION WIDTH (BEAKER) (test 14.6 % 11.6-14.4 nnzj=518) PLATELET COUNT (BEAKER) (test easf=774) 47 K/CU MM 150-450 MEAN PLATELET VOLUME (BEAKER) (test wmsp=134) 11.8 fL 9.4-12.4 NUCLEATED RED BLOOD CELLS (BEAKER) (test 3 /100 WBC 0-0 xpmz=691) NEUTROPHILS RELATIVE PERCENT (BEAKER) (test 81 % bxvk=552) LYMPHOCYTES RELATIVE PERCENT (BEAKER) (test 7 % lqve=494) MONOCYTES RELATIVE PERCENT (BEAKER) (test 11 % vwez=103) EOSINOPHILS RELATIVE PERCENT (BEAKER) (test 0 % hdfo=402) BASOPHILS RELATIVE PERCENT (BEAKER) (test 0 % iiyd=355) NEUTROPHILS ABSOLUTE COUNT (BEAKER) (test 13.49 K/ L 1.78-5.38 wukr=295) LYMPHOCYTES ABSOLUTE COUNT (BEAKER) (test 1.11 K/ L 1.32-3.57 khln=949) MONOCYTES ABSOLUTE COUNT (BEAKER) (test xcfj=694) 1.88 K/ L 0.30-0.82 EOSINOPHILS ABSOLUTE COUNT (BEAKER) (test 0.00 K/ L 0.04-0.54 vloa=288) BASOPHILS ABSOLUTE COUNT (BEAKER) (test zmji=254) 0.02 K/ L 0.01-0.08 IMMATURE GRANULOCYTES-RELATIVE PERCENT (BEAKER) 2 % 0-1 (test fvuk=1756) (CELLAVISION MANUAL DIFF)2018-07-10 08:02:00 Test Item Value Reference Range Comments TOTAL COUNTED (BEAKER) (test uvuf=5604) WBC MORPHOLOGY (BEAKER) (test goxx=528) Normal LARGE PLT(BEAKER) (test ibpq=3414) Present POLYCHROMATOPHILLIC RBCS(BEAKER) (test ufog=594) 1+ few BASIC METABOLIC [id number] 07:43:00 Test Item Value Reference Range Comments SODIUM (BEAKER) (test 136 meq/L 136-145 pylp=204) POTASSIUM (BEAKER) (test 4.4 meq/L 3.5-5.1 eior=240) CHLORIDE (BEAKER) (test 106 meq/L 98-107 dshe=170) CO2 (BEAKER) (test 23 meq/L 22-29 wlwr=071) BLOOD UREA NITROGEN 29 mg/dL 7-21 (BEAKER) (test yhaq=758) CREATININE (BEAKER) (test 2.03 mg/dL 0.57-1.25 fybi=067) GLUCOSE RANDOM (BEAKER) 155 mg/dL 70-105 (test okqr=995) CALCIUM (BEAKER) (test 8.1 mg/dL 8.4-10.2 clfr=899) EGFR (BEAKER) (test 34 mL/min/1.73 sq m ESTIMATED GFR IS NOT gdva=3407) ACCURATE CREATININE CLEARANCE IN PREDICTING GLOMERULAR FILTRATION RATE. ESTIMATED GFR IS NOT APPLICABLE FOR DIALYSIS PATIENTS. [id number] 07:08:00 Test Item Value Reference Range Comments PARTIAL THROMBOPLASTIN TIME (BEAKER) (test 36.9 seconds 22.5-36.0 bcbx=527) PROTHROMBIN TIME/[id number] 07:07:00 Test Item Value Reference Range Comments PROTIME (BEAKER) (test tmuw=764) 15.9 seconds 11.7-14.7 INR (BEAKER) (test ydsf=870) 1.3 <=5.9 RECOMMENDED COUMADIN/WARFARIN INR THERAPY RANGESSTANDARD DOSE: 2.0 - 3.0 Includes: PROPHYLAXIS forvenous thrombosis, systemic embolization; TREATMENT for venous thrombosis and/or pulmonary embolus.HIGH RISK: Target INR is 2.5-3.5 for patients with mechanical heart valves.LACTIC ACID, ARTERIAL, WHOLE [id number] 06:57:00 Test Item Value Reference Range Comments LACTATE BLOOD ARTERIAL (2) (BEAKER) (test 0.7 mmol/L 0.5-2.2 naau=2576) Effective 02/25/2016: Units/Reference Range ChangeNew: 0.5-2.2 mmol/L Previous: 5 -20 mg/dLBLOOD GAS, [id number] 06:53:00 Test Item Value Reference Range Comments PH ARTERIAL (BEAKER) (test lksg=991) 7.41 7.35-7.45 PCO2 ARTERIAL (BEAKER) (test euwk=940) 41 mmHg 35-45 PO2 ARTERIAL (BEAKER) (test evgi=917) 144 mmHg 80-90 O2 SATURATION ARTERIAL (BEAKER) (test gfke=022) 98.9 % 96.0-97.0 HCO3 ARTERIAL (BEAKER) (test rcda=464) 25 mmol/L 21-29 BASE EXCESS ARTERIAL (BEAKER) (test fnhz=824) 0.7 mmol/L -2.0-3.0 PATIENT TEMPERATURE (BEAKER) (test gjzj=2123) 37.0 C FIO2 (BEAKER) (test tqdt=4436) 30.0 % HEMOGLOBIN AND [id number] 06:42:00 Test Item Value Reference Range Comments HEMOGLOBIN (BEAKER) (test sohr=489) 7.4 GM/DL 13.7-17.5 HEMATOCRIT (BEAKER) (test xinj=728) 22.4 % 40.1-51.0 POCT-GLUCOSE [id number] 06:33:00 Test Item Value Reference Range Comments POC-GLUCOSE METER (BEAKER) 159 mg/dL 70-110 TESTED AT [facility] [address] [facility] (test riij=9808) [facility] [address] CALCIUM, [id number] 04:45:00 Test Item Value Reference Range Comments CALCIUM IONIZED (BEAKER) (test lknh=992) 1.12 mmol/L 1.12-1.27 PH, BLOOD (BEAKER) (test sfmn=3985) 7.42 [id number] 04:42:00 Test Item Value Reference Range Comments MAGNESIUM (BEAKER) (test 2.4 mg/dL 1.6-2.6 Specimen slightly hemolyzed rhye=551) [id number] 04:42:00 Test Item Value Reference Range Comments POTASSIUM (BEAKER) (test 4.7 meq/L 3.5-5.1 Specimen slightly hemolyzed tfjo=092) HEPATIC FUNCTION [id number] 04:42:00 Test Item Value Reference Range Comments TOTAL PROTEIN (BEAKER) (test 4.2 gm/dL 6.0-8.3 Specimen slightly hemolyzed rggm=541) ALBUMIN (BEAKER) (test 2.4 g/dL 3.5-5.0 Specimen slightly hemolyzed yojt=3248) BILIRUBIN TOTAL (BEAKER) (test 2.1 mg/dL 0.2-1.2 Specimen slightly hemolyzed eudx=328) BILIRUBIN DIRECT (BEAKER) (test 1.4 mg/dL 0.1-0.5 Specimen slightly hemolyzed ekjc=621) ALKALINE PHOSPHATASE (BEAKER) 108 U/L 40-150 (test twef=600) AST (SGOT) (BEAKER) (test 86 U/L 5-34 Specimen slightly hemolyzed xeyi=298) ALT (SGPT) (BEAKER) (test 36 U/L 6-55 Specimen slightly hemolyzed ukmk=730) OXYGEN SATURATION, [id number] 04:35:00 Test Item Value Reference Range Comments O2 SATURATION (MEASURED) (BEAKER) (test mvva=2192) 95.5 % Obtain from CVP portLACTIC ACID, ARTERIAL, WHOLE [id number] 01:05:00 Test Item Value Reference Range Comments LACTATE BLOOD ARTERIAL (2) (BEAKER) (test 0.6 mmol/L 0.5-2.2 jwdk=8324) Effective 02/25/2016: Units/Reference Range ChangeNew: 0.5-2.2 mmol/L Previous: 5 -20 mg/dLBLOOD GAS, [id number] 00:41:00 Test Item Value Reference Range Comments PH ARTERIAL (BEAKER) (test gciz=492) 7.42 7.35-7.45 PCO2 ARTERIAL (BEAKER) (test xkcy=280) 40 mmHg 35-45 PO2 ARTERIAL (BEAKER) (test whne=415) 230 mmHg 80-90 O2 SATURATION ARTERIAL (BEAKER) (test jbho=782) 99.5 % 96.0-97.0 HCO3 ARTERIAL (BEAKER) (test ezja=970) 25 mmol/L 21-29 BASE EXCESS ARTERIAL (BEAKER) (test meru=324) 0.5 mmol/L -2.0-3.0 PATIENT TEMPERATURE (BEAKER) (test empo=5653) 37.0 C FIO2 (BEAKER) (test piim=5089) 50.0 % CALCIUM, [id number] 00:41:00 Test Item Value Reference Range Comments CALCIUM IONIZED (BEAKER) (test jaxy=548) 1.12 mmol/L 1.12-1.27 PH, BLOOD (BEAKER) (test ozne=2530) 7.42 [id number] 00:25:00 Test Item Value Reference Range Comments POTASSIUM (BEAKER) (test chxe=626) 4.7 meq/L 3.5-5.1 [id number] 00:20:00 Test Item Value Reference Range Comments PARTIAL THROMBOPLASTIN TIME (BEAKER) (test 36.5 seconds 22.5-36.0 aiyb=478) PROTHROMBIN [id number] 00:19:00 Test Item Value Reference Range Comments PROTIME (BEAKER) (test ofjv=040) 16.4 seconds 11.7-14.7 INR (BEAKER) (test adxu=506) 1.3 <=5.9 RECOMMENDED COUMADIN/WARFARIN INR THERAPY RANGESSTANDARD DOSE: 2.0 - 3.0 Includes: PROPHYLAXIS forvenous thrombosis, systemic embolization; TREATMENT for venous thrombosis and/or pulmonary embolus.HIGH RISK: Target INR is 2.5-3.5 for patients with mechanical heart valves.POCT-GLUCOSE [id number] 00:12:00 Test Item Value Reference Range Comments POC-GLUCOSE METER (BEAKER) 186 mg/dL 70-110 TESTED AT [address] (test cnzw=8149) [facility] [address] HEMOGLOBIN AND [id number] 00:08:00 Test Item Value Reference Range Comments HEMOGLOBIN (BEAKER) (test crhj=027) 7.9 GM/DL 13.7-17.5 HEMATOCRIT (BEAKER) (test ftix=657) 23.1 % 40.1-51.0 [id number] 19:56:00 Test Item Value Reference Range Comments POTASSIUM (BEAKER) (test cnaj=367) 4.9 meq/L 3.5-5.1 [id number] 19:56:00 Test Item Value Reference Range Comments MAGNESIUM (BEAKER) (test mrlz=228) 2.2 mg/dL 1.6-2.6 [id number] 19:56:00 Test Item Value Reference Range Comments PHOSPHORUS (BEAKER) (test lhsx=426) 3.8 mg/dL 2.3-4.7 [id number] 19:56:00 Test Item Value Reference Range Comments SODIUM (BEAKER) (test pziy=669) 137 meq/L 136-145 BASIC METABOLIC [id number] 19:56:00 Test Item Value Reference Range Comments SODIUM (BEAKER) (test 137 meq/L 136-145 dxsl=097) POTASSIUM (BEAKER) (test 4.9 meq/L 3.5-5.1 obmz=434) CHLORIDE (BEAKER) (test 107 meq/L 98-107 oxrp=404) CO2 (BEAKER) (test 24 meq/L 22-29 eslm=276) BLOOD UREA NITROGEN 28 mg/dL 7-21 (BEAKER) (test gbpb=931) CREATININE (BEAKER) (test 2.26 mg/dL 0.57-1.25 nlai=848) GLUCOSE RANDOM (BEAKER) 162 mg/dL 70-105 (test isde=010) CALCIUM (BEAKER) (test 8.2 mg/dL 8.4-10.2 oplp=780) EGFR (BEAKER) (test 30 mL/min/1.73 sq m ESTIMATED GFR IS NOT fzao=8843) ACCURATE CREATININE CLEARANCE IN PREDICTING GLOMERULAR FILTRATION RATE. ESTIMATED GFR IS NOT APPLICABLE FOR DIALYSIS PATIENTS. CBC W/PLT COUNT & AUTO [id number] 19:56:00 Test Item Value Reference Range Comments WHITE BLOOD CELL COUNT (BEAKER) (test nlim=275) 18.8 K/ L 3.5-10.5 RED BLOOD CELL COUNT (BEAKER) (test xsou=296) 2.49 M/ L 4.63-6.08 HEMOGLOBIN (BEAKER) (test dlvr=304) 7.5 GM/DL 13.7-17.5 HEMATOCRIT (BEAKER) (test vgzq=180) 21.5 % 40.1-51.0 MEAN CORPUSCULAR VOLUME (BEAKER) (test gwsq=656) 86.3 fL 79.0-92.2 MEAN CORPUSCULAR HEMOGLOBIN (BEAKER) (test 30.1 pg 25.7-32.2 qoug=415) MEAN CORPUSCULAR HEMOGLOBIN CONC (BEAKER) (test 34.9 GM/DL 32.3-36.5 hrct=537) RED CELL DISTRIBUTION WIDTH (BEAKER) (test 14.6 % 11.6-14.4 nooh=829) PLATELET COUNT (BEAKER) (test epvm=734) 54 K/CU MM 150-450 MEAN PLATELET VOLUME (BEAKER) (test whso=090) 12.0 fL 9.4-12.4 NUCLEATED RED BLOOD CELLS (BEAKER) (test 3 /100 WBC 0-0 slvg=178) NEUTROPHILS RELATIVE PERCENT (BEAKER) (test 79 % pdzr=109) LYMPHOCYTES RELATIVE PERCENT (BEAKER) (test 8 % kqjp=222) MONOCYTES RELATIVE PERCENT (BEAKER) (test 12 % djyg=976) EOSINOPHILS RELATIVE PERCENT (BEAKER) (test 0 % xoif=853) BASOPHILS RELATIVE PERCENT (BEAKER) (test 0 % ueyp=282) NEUTROPHILS ABSOLUTE COUNT (BEAKER) (test 14.84 K/ L 1.78-5.38 xlhy=135) LYMPHOCYTES ABSOLUTE COUNT (BEAKER) (test 1.57 K/ L 1.32-3.57 voqm=505) MONOCYTES ABSOLUTE COUNT (BEAKER) (test yayx=202) 2.18 K/ L 0.30-0.82 EOSINOPHILS ABSOLUTE COUNT (BEAKER) (test 0.01 K/ L 0.04-0.54 jmkv=991) BASOPHILS ABSOLUTE COUNT (BEAKER) (test wgqm=863) 0.01 K/ L 0.01-0.08 IMMATURE GRANULOCYTES-RELATIVE PERCENT (BEAKER) 1 % 0-1 (test xqwm=7909) CALCIUM, [id number] 19:41:00 Test Item Value Reference Range Comments CALCIUM IONIZED (BEAKER) (test irgg=301) 1.13 mmol/L 1.12-1.27 PH, BLOOD (BEAKER) (test iyuc=3859) 7.45 LACTIC ACID, ARTERIAL, WHOLE [id number] 18:09:00 Test Item Value Reference Range Comments LACTATE BLOOD ARTERIAL (2) (BEAKER) (test 0.6 mmol/L 0.5-2.2 iing=2964) Effective 02/25/2016: Units/Reference Range ChangeNew: 0.5-2.2 mmol/L Previous: 5 -20 mg/[id number] 18:09:00 Test Item Value Reference Range Comments TRIGLYCERIDES (BEAKER) (test baoy=644) 259 mg/dL TRIGLYCERIDE REFERENCE RANGELow Risk <150Borderline Risk 150-199High Risk 200-499Very High Risk>=[id number] 18:05:00 Test Item Value Reference Range Comments PARTIAL THROMBOPLASTIN TIME (BEAKER) (test 35.6 seconds 22.5-36.0 vipi=083) PROTHROMBIN TIME/[id number] 18:04:00 Test Item Value Reference Range Comments PROTIME (BEAKER) (test nitd=700) 16.2 seconds 11.7-14.7 INR (BEAKER) (test zlwz=150) 1.3 <=5.9 RECOMMENDED COUMADIN/WARFARIN INR THERAPY RANGESSTANDARD DOSE: 2.0 - 3.0 Includes: PROPHYLAXIS forvenous thrombosis, systemic embolization; TREATMENT for venous thrombosis and/or pulmonary embolus.HIGH RISK: Target INR is 2.5-3.5 for patients with mechanical heart valves.HEMOGLOBIN AND [id number] 17 :52:00 Test Item Value Reference Range Comments HEMOGLOBIN (BEAKER) (test ckmp=268) 7.9 GM/DL 13.7-17.5 HEMATOCRIT (BEAKER) (test iith=104) 22.4 % 40.1-51.0 BLOOD GAS, [id number] 17:48:00 Test Item Value Reference Range Comments PH ARTERIAL (BEAKER) (test hcvr=631) 7.42 7.35-7.45 PCO2 ARTERIAL (BEAKER) (test ezkv=743) 42 mmHg 35-45 PO2 ARTERIAL (BEAKER) (test sqdp=584) 189 mmHg 80-90 O2 SATURATION ARTERIAL (BEAKER) (test edoe=204) 99.3 % 96.0-97.0 HCO3 ARTERIAL (BEAKER) (test sgrd=761) 26 mmol/L 21-29 BASE EXCESS ARTERIAL (BEAKER) (test jnjo=357) 1.4 mmol/L -2.0-3.0 PATIENT TEMPERATURE (BEAKER) (test btxz=1882) 37.5 C FIO2 (BEAKER) (test eoae=3651) 50.0 % POCT-GLUCOSE [id number] 17:45:00 Test Item Value Reference Range Comments POC-GLUCOSE METER (BEAKER) 184 mg/dL 70-110 TESTED AT [facility] [address] (test llct=7754) [facility] [address] [id number] 16:05:00 Test Item Value Reference Range Comments POTASSIUM (BEAKER) (test jzdm=666) 4.9 meq/L 3.5-5.1 CALCIUM, [id number] 15:53:00 Test Item Value Reference Range Comments CALCIUM IONIZED (BEAKER) (test srzj=347) 1.18 mmol/L 1.12-1.27 PH, BLOOD (BEAKER) (test kacp=7173) 7.42 [id number] 12:36:00 Test Item Value Reference Range Comments PARTIAL THROMBOPLASTIN TIME (BEAKER) (test 39.8 seconds 22.5-36.0 vsdy=111) PROTHROMBIN TIME/[id number] 12:35:00 Test Item Value Reference Range Comments PROTIME (BEAKER) (test qoka=177) 16.7 seconds 11.7-14.7 INR (BEAKER) (test jris=283) 1.4 <=5.9 RECOMMENDED COUMADIN/WARFARIN INR THERAPY RANGESSTANDARD DOSE: 2.0 - 3.0 Includes: PROPHYLAXIS forvenous thrombosis, systemic embolization; TREATMENT for venous thrombosis and/or pulmonary embolus.HIGH RISK: Target INR is 2.5-3.5 for patients with mechanical heart valves.LACTIC ACID, ARTERIAL, WHOLE [id number] 12:35:00 Test Item Value Reference Range Comments LACTATE BLOOD ARTERIAL (2) (BEAKER) (test 1.1 mmol/L 0.5-2.2 dojo=7472) Effective 02/25/2016: Units/Reference Range ChangeNew: 0.5-2.2 mmol/L Previous: 5 -20 mg/[id number] 12:34:00 Test Item Value Reference Range Comments POTASSIUM (BEAKER) (test jvff=661) 4.6 meq/L 3.5-5.1 BLOOD GAS, [id number] 12:17:00 Test Item Value Reference Range Comments PH ARTERIAL (BEAKER) (test ezel=544) 7.37 7.35-7.45 PCO2 ARTERIAL (BEAKER) (test wwwy=478) 45 mmHg 35-45 PO2 ARTERIAL (BEAKER) (test ykyz=373) 160 mmHg 80-90 O2 SATURATION ARTERIAL (BEAKER) (test toxu=003) 99.0 % 96.0-97.0 HCO3 ARTERIAL (BEAKER) (test tlbd=041) 25 mmol/L 21-29 BASE EXCESS ARTERIAL (BEAKER) (test akvc=438) -0.2 mmol/L -2.0-3.0 PATIENT TEMPERATURE (BEAKER) (test cyak=8897) 37.0 C FIO2 (BEAKER) (test zqls=4699) 50.0 % HEMOGLOBIN AND [id number] 12:17:00 Test Item Value Reference Range Comments HEMOGLOBIN (BEAKER) (test bllg=357) 9.6 GM/DL 13.7-17.5 HEMATOCRIT (BEAKER) (test pdeb=276) 27.3 % 40.1-51.0 CALCIUM, [id number] 12:17:00 Test Item Value Reference Range Comments CALCIUM IONIZED (BEAKER) (test uqwi=795) 1.13 mmol/L 1.12-1.27 PH, BLOOD (BEAKER) (test frgh=7374) 7.37 OXYGEN SATURATION, [id number] 12:16:00 Test Item Value Reference Range Comments O2 SATURATION (MEASURED) (BEAKER) (test chtn=3651) 81.6 % Obtain from CVP portRAD, CHEST, 1 VIEW, NON [id number] 12:16:00Reason for exam:->assess for pulmonary edemaShould this be performed at the bedside?-&gt ;YesFINAL REPORT Portable chest. CLINICAL HISTORY: assess for pulmonary edema. COMPARISON STUDY: Chest x-ray from yesterday. FINDINGS: The cardiac silhouette is enlarged. The pulmonary parenchyma demonstrates mild interstitial markings and atelectatic changes, slightly more pronounced than on previous. Sternotomy wires are seen. The support lines and tubes are unchanged. No pneumothorax is seen. Degenerative changes are noted. IMPRESSION: Slight worsening of pulmonary opacities, possibly related to mild worsening of CHF. Signed: Sharath Serra MDReport Verified Date/Time: 2017 12:16:49 Reading Location: [facility] C013Y CT Body Reading Room POCT- GLUCOSE [id number] 12:06:00 Test Item Value Reference Range Comments POC-GLUCOSE METER (BEAKER) 209 mg/dL 70-110 [facility] [address] [facility] (test ciuh=9808) [place] [address] HEMOGLOBIN AND [id number] 10:33:00 Test Item Value Reference Range Comments HEMOGLOBIN (BEAKER) (test leds=729) 10.4 GM/DL 13.7-17.5 HEMATOCRIT (BEAKER) (test zxwf=546) 29.6 % 40.1-51.0 THROMBOELASTOGRAPH (TEG)2018-07-09 10:31:00 Test Item Value Reference Range Comments TEG ACTIVATED CLOTTING TIME (BEAKER) (test 4.7 minutes 4.0-7.0 hqic=0208) TEG FIBRINOGEN ACTIVITY (BEAKER) (test 69.6 degrees 61.0-73.0 ywnu=5255) TEG PLT. AGGREGATION (BEAKER) (test hkyg=1195) 55.6 MM 55.0-65.0 TEG FIBRINOLYSIS (BEAKER) (test azhf=4021) 0.0 % 0.0-5.0 TGH ACTIVATED CLOTTING TIME (BEAKER) (test 4.8 minutes 4.0-7.0 paha=3175) TGH FIBRINOGEN ACTIVITY (BEAKER) (test 65.6 degrees 61.0-73.0 kbrx=4365) TGH PLT. AGGREGATION (BEAKER) (test icjc=7943) 52.4 MM 55.0-65.0 TGH FIBRINOLYSIS (BEAKER) (test avij=1105) 0.0 % 0.0-5.0 BLOOD GAS, [id number] 09:22:00 Test Item Value Reference Range Comments PH ARTERIAL (BEAKER) (test wnwj=520) 7.50 7.35-7.45 PCO2 ARTERIAL (BEAKER) (test uqyk=744) 28 mm Hg 35-45 PO2 ARTERIAL (BEAKER) (test hbnw=837) 230 mm Hg 80-90 O2 SATURATION ARTERIAL (BEAKER) (test mpgr=255) 99.6 % 96.0-97.0 HCO3 ARTERIAL (BEAKER) (test nygo=215) 21 mmol/L 21-29 BASE EXCESS ARTERIAL (BEAKER) (test zstc=421) -0.9 mmol/L -2.0-3.0 PATIENT TEMPERATURE (BEAKER) (test zgmc=9425) 37.0 FIO2 (BEAKER) (test uyiq=2683) 60 [id number] 08:58:00 Test Item Value Reference Range Comments POTASSIUM (BEAKER) (test moph=694) 4.7 meq/L 3.5-5.1 [id number] 08:58:00 Test Item Value Reference Range Comments MAGNESIUM (BEAKER) (test cglb=277) 2.2 mg/dL 1.6-2.6 [id number] 08:58:00 Test Item Value Reference Range Comments PHOSPHORUS (BEAKER) (test hsvd=613) 3.4 mg/dL 2.3-4.7 [id number] 08:58:00 Test Item Value Reference Range Comments SODIUM (BEAKER) (test xada=230) 136 meq/L 136-145 LACTIC ACID, ARTERIAL, WHOLE [id number] 08:55:00 Test Item Value Reference Range Comments LACTATE BLOOD ARTERIAL (2) (BEAKER) (test 1.9 mmol/L 0.5-2.2 jbry=7880) Effective 02/25/2016: Units/Reference Range ChangeNew: 0.5-2.2 mmol/L Previous: 5 -20 mg/dLCBC W/PLT COUNT & AUTO [id number] 08:46:00 Test Item Value Reference Range Comments WHITE BLOOD CELL COUNT (BEAKER) (test fkzl=516) 24.9 K/ L 3.5-10.5 RED BLOOD CELL COUNT (BEAKER) (test qjlo=887) 3.45 M/ L 4.63-6.08 HEMOGLOBIN (BEAKER) (test quux=732) 10.2 GM/DL 13.7-17.5 HEMATOCRIT (BEAKER) (test qvba=012) 29.6 % 40.1-51.0 MEAN CORPUSCULAR VOLUME (BEAKER) (test lvuv=967) 85.8 fL 79.0-92.2 MEAN CORPUSCULAR HEMOGLOBIN (BEAKER) (test 29.6 pg 25.7-32.2 hbva=415) MEAN CORPUSCULAR HEMOGLOBIN CONC (BEAKER) (test 34.5 GM/DL 32.3-36.5 ltfh=875) RED CELL DISTRIBUTION WIDTH (BEAKER) (test 14.1 % 11.6-14.4 axgy=393) PLATELET COUNT (BEAKER) (test quam=130) 62 K/CU MM 150-450 MEAN PLATELET VOLUME (BEAKER) (test fnof=515) 11.4 fL 9.4-12.4 NUCLEATED RED BLOOD CELLS (BEAKER) (test 0 /100 WBC 0-0 rsqa=572) (CELLAVISION MANUAL DIFF)2018-07-09 08:46:00 Test Item Value Reference Range Comments NEUTROPHILS - REL (CELLAVISION)(BEAKER) (test 86 % vruk=6246) LYMPHOCYTES - REL (CELLAVISION)(BEAKER) (test 2 % ccja=5790) MONOCYTES - REL (CELLAVISION)(BEAKER) (test 2 % vvdm=5361) BANDS - REL (CELLAVISION)(BEAKER) (test 10 % 0-10 fgtl=5410) NEUTROPHILS - ABS (CELLAVISION)(BEAKER) (test 21.41 K/ul 1.78-5.38 yhwf=3003) LYMPHOCYTES - ABS (CELLAVISION)(BEAKER) (test 0.50 K/ul 1.32-3.57 edol=5041) MONOCYTES - ABS (CELLAVISION)(BEAKER) (test 0.50 K/uL 0.30-0.82 jvlr=1814) BANDS - ABS (CELLAVISION)(BEAKER) (test 2.49 K/uL 0.00-0.80 qxsn=4347) TOTAL COUNTED (BEAKER) (test yzud=4728) 100 MANUAL NRBC PER 100 CELLS (BEAKER) (test 1 /100 WBC 0-0 wjzk=5354) WBC MORPHOLOGY (BEAKER) (test smyp=819) Normal PLT MORPHOLOGY (BEAKER) (test ioug=439) Normal POLYCHROMATOPHILLIC RBCS(BEAKER) (test qiei=799) 2+ moderate ANISOCYTOSIS (BEAKER) (test zpbn=474) 2+ moderate POIKILOCYTES (BEAKER) (test idni=108) 2+ moderate ARTIFACT (CELLAVISION)(BEAKER) (test ohcp=4832) Present PLATELET CONCENTRATION (CELLAVISION)(BEAKER) Decreased (test uhrx=4633) Received comment: User comments: Slide comments:HEMOGLOBIN AND [id number] 08:43:00 Test Item Value Reference Range Comments HEMOGLOBIN (BEAKER) (test uknb=889) 10.9 GM/DL 13.7-17.5 HEMATOCRIT (BEAKER) (test lgpb=914) 31.0 % 40.1-51.0 CALCIUM, [id number] 08:30:00 Test Item Value Reference Range Comments CALCIUM IONIZED (BEAKER) (test jkjs=988) 1.17 mmol/L 1.12-1.27 PH, BLOOD (BEAKER) (test iuuy=6433) 7.50 PH, [id number] 08:30:00 Test Item Value Reference Range Comments PH ARTERIAL (BEAKER) (test aoyw=171) 7.50 7.35-7.45 POCT-GLUCOSE [id number] 08:26:00 Test Item Value Reference Range Comments POC-GLUCOSE METER (BEAKER) 180 mg/dL 70-110 TESTED AT [address] (test iuyq=0038) [facility] [address] ANG, EMBOLIZATION, EXTENSIVE - [id number] 07:11:00Reason for exam:-> upper GI bleedFINAL REPORT Exam: Visceral arteriogram and embolization Clinical History: Status post resection ERCP and sphincterotomy with acute GI bleeding despite recent embolization Consent: Benefits and risks were explained to the patient's cousin who gave consent to the procedure. Fluoro Time: 29.5 Minutes Total Images: 86 Procedure: Sterile barrier technique was followed including cap, mask, sterile gown, sterile gloves , sterile sheet, hand hygiene and 2% chlorhexidine [...] closure device. The arteriotomy was closed using Angio- Seal. Hemostasis was achieved. The patient tolerated the [...] empirically embolized using microcoils. Signed: Sosa Euceda MDReport Verified Date/Time: 07/09/2018 07:11:14 Reading Location: [place] [address] Angio Body Reading Room CALCIUM, [id number] 07:06:00 Test Item Value Reference Range Comments CALCIUM IONIZED (BEAKER) (test oaqi=806) 1.10 mmol/L 1.12-1.27 PH, BLOOD (BEAKER) (test pept=2650) 7.42 MRSA [id number] 06:59:00 Test Item Value Reference Range Comments CULTURE (BEAKER) (test juyt=6894) No MRSA isolated [id number] 06:24:00 Test Item Value Reference Range Comments D-DIMER QUANTITATIVE (BEAKER) (test ojea=932) 4.16 MG/L FEU <0.50 Intended Use: The D-Dimer Assay can be used to aid in the diagnosis of Deep Vein Thrombosis (DVT) and Pulmonary Embolism Disease (PED).In patients with low pre-test probability, various studies concerning STA Liatest D-dimer test have reported that with a cutoff value of 0.50 MG/L FEU, the Negative Predictive Value (NPV) regarding the exclusion of thrombosis is within 95-100% range.[id number] 06:20:00 Test Item Value Reference Range Comments FIBRINOGEN LEVEL (BEAKER) (test lyjm=515) 128 mg/dl 225-434 HEPATIC FUNCTION [id number] 06:16:00 Test Item Value Reference Range Comments TOTAL PROTEIN (BEAKER) (test nhyi=657) 3.3 gm/dL 6.0-8.3 ALBUMIN (BEAKER) (test nvqs=3036) 1.9 g/dL 3.5-5.0 BILIRUBIN TOTAL (BEAKER) (test mpzd=148) 2.3 mg/dL 0.2-1.2 BILIRUBIN DIRECT (BEAKER) (test cdau=087) 1.8 mg/dL 0.1-0.5 ALKALINE PHOSPHATASE (BEAKER) (test pvmj=702) 89 U/L 40-150 AST (SGOT) (BEAKER) (test igah=335) 56 U/L 5-34 ALT (SGPT) (BEAKER) (test vghs=215) 28 U/L 6-55 [id number] 06:15:00 Test Item Value Reference Range Comments PROTIME (BEAKER) (test rqli=607) 20.6 seconds 11.7-14.7 INR (BEAKER) (test kwds=734) 1.8 <=5.9 PARTIAL THROMBOPLASTIN TIME (BEAKER) (test 39.3 seconds 22.5-36.0 kkdc=656) RECOMMENDED COUMADIN/WARFARIN INR THERAPY RANGESSTANDARD DOSE: 2.0 - 3.0 Includes: PROPHYLAXIS forvenous thrombosis, systemic embolization; TREATMENT for venous thrombosis and/or pulmonary embolus.HIGH RISK: Target INR is 2.5-3.5 for patients with mechanical heart valves.BASIC METABOLIC [id number] 06:12: 00 Test Item Value Reference Range Comments SODIUM (BEAKER) (test 136 meq/L 136-145 zrro=660) POTASSIUM (BEAKER) (test 4.8 meq/L 3.5-5.1 kgzt=656) CHLORIDE (BEAKER) (test 110 meq/L 98-107 ckwx=705) CO2 (BEAKER) (test 20 meq/L 22-29 uilf=247) BLOOD UREA NITROGEN 25 mg/dL 7-21 (BEAKER) (test fhso=829) CREATININE (BEAKER) (test 2.09 mg/dL 0.57-1.25 mgrh=923) GLUCOSE RANDOM (BEAKER) 183 mg/dL 70-105 (test rhsv=330) CALCIUM (BEAKER) (test 8.0 mg/dL 8.4-10.2 howj=095) EGFR (BEAKER) (test 33 mL/min/1.73 sq m ESTIMATED GFR IS NOT ymqg=2923) ACCURATE CREATININE CLEARANCE IN PREDICTING GLOMERULAR FILTRATION RATE. ESTIMATED GFR IS NOT APPLICABLE FOR DIALYSIS PATIENTS. [id number] 06:12:00 Test Item Value Reference Range Comments MAGNESIUM (BEAKER) (test pfpk=878) 1.7 mg/dL 1.6-2.6 [id number] 06:12:00 Test Item Value Reference Range Comments POTASSIUM (BEAKER) (test sgus=212) 4.8 meq/L 3.5-5.1 [id number] 06:12:00 Test Item Value Reference Range Comments SODIUM (BEAKER) (test dxhh=082) 136 meq/L 136-145 PLATELET [id number] 05:53:00 Test Item Value Reference Range Comments PLATELET COUNT (BEAKER) (test szhf=142) 62 K/CU MM 150-450 HEMOGLOBIN AND [id number] 05:53:00 Test Item Value Reference Range Comments HEMOGLOBIN (BEAKER) (test msyg=042) 10.2 GM/DL 13.7-17.5 HEMATOCRIT (BEAKER) (test xuyl=608) 29.6 % 40.1-51.0 THROMBOELASTOGRAPH (TEG)2018-07-09 04:19:00 Test Item Value Reference Range Comments TEG ACTIVATED CLOTTING TIME (BEAKER) (test 3.2 minutes 4.0-7.0 ifin=1862) TEG FIBRINOGEN ACTIVITY (BEAKER) (test 61.7 degrees 61.0-73.0 fhoq=0521) TEG PLT. AGGREGATION (BEAKER) (test flwm=3744) 43.9 MM 55.0-65.0 TEG FIBRINOLYSIS (BEAKER) (test oqfg=9919) 0.0 % 0.0-5.0 TGH ACTIVATED CLOTTING TIME (BEAKER) (test 3.2 minutes 4.0-7.0 uobv=7597) TGH FIBRINOGEN ACTIVITY (BEAKER) (test 64.3 degrees 61.0-73.0 ovcs=8994) TGH PLT. AGGREGATION (BEAKER) (test ekti=8792) 43.5 MM 55.0-65.0 TGH FIBRINOLYSIS (BEAKER) (test wlhb=6815) 0.0 % 0.0-5.0 POCT-BLOOD GASES, [id number] 03:55:00 Test Item Value Reference Range Comments TEMP, CELSIUS-POC (BEAKER) 36.1 (test wime=9692) FIO2-POC (BEAKER) (test 60 TESTED AT [address] meaj=6004) [place] [id number] PH, ARTERIAL-POC (BEAKER) 7.337 7.350-7.450 (test xqwz=2809) PCO2, ARTERIAL-POC (BEAKER) 42.1 mm Hg 35.0-45.0 (test ycht=3210) PO2, ARTERIAL-POC (BEAKER) 95.0 mm Hg 80.0-90.0 (test xrzg=9973) SO2, ARTERIAL-POC (BEAKER) 97.0 % 96.0-97.0 (test ohxc=8318) HCO3, ARTERIAL-POC (BEAKER) 22.8 meq/L 21.0-29.0 (test mhko=2239) BASE EXCESS, ARTERIAL-POC -3.0 meq/L -2.0-3.0 (BEAKER) (test udcd=7270) [id number] 03:55:00 Test Item Value Reference Range Comments POC-SODIUM (BEAKER) (test 139 meq/L 135-148 TESTED AT [address] dnyj=5948) [place] [address] [id number] 03:55:00 Test Item Value Reference Range Comments POC-POTASSIUM (BEAKER) (test 4.7 meq/L 3.6-5.5 TESTED AT [address] tjnh=1714) [place] [address] [id number] 03:55:00 Test Item Value Reference Range Comments POC-GLUCOSE (BEAKER) (test 175 mg/dL 70-110 TESTED AT [address] ixbk=0647) [place] [address] POCT-CALCIUM [id number] 03:55:00 Test Item Value Reference Range Comments POC-CALCIUM IONIZED (BEAKER) 1.27 mmol/L 1.12-1.27 TESTED AT [address] (test akhh=2064) [place] [address] [id number] 03:55:00 Test Item Value Reference Range Comments POC-HEMATOCRIT (BEAKER) (test 26 % 40-50 TESTED AT [address] ozzr=9617) [facility] [address] [id number] 03:55:00 Test Item Value Reference Range Comments POC-HEMOGLOBIN (BEAKER) 8.8 g/dL 13.0-16.8 TESTED AT [address] (test tpkf=8841) [place] [id number] AT [address] [address] CALCIUM, [id number] 02:37:00 Test Item Value Reference Range Comments CALCIUM IONIZED (BEAKER) (test iydv=743) 1.94 mmol/L 1.12-1.27 PH, BLOOD (BEAKER) (test dinw=9369) 7.26 BLOOD GAS, [id number] 02:30:00 Test Item Value Reference Range Comments PH ARTERIAL (BEAKER) (test ossd=711) 7.26 7.35-7.45 PCO2 ARTERIAL (BEAKER) (test uqks=736) 41 mmHg 35-45 PO2 ARTERIAL (BEAKER) (test nraq=042) 186 mmHg 80-90 O2 SATURATION ARTERIAL (BEAKER) (test oxff=434) 99.1 % 96.0-97.0 HCO3 ARTERIAL (BEAKER) (test namn=974) 18 mmol/L 21-29 BASE EXCESS ARTERIAL (BEAKER) (test pvin=591) -8.5 mmol/L -2.0-3.0 PATIENT TEMPERATURE (BEAKER) (test ggoi=7608) 37.0 C FIO2 (BEAKER) (test txsl=9307) 100.0 % THROMBOELASTOGRAPH (TEG)2018-07-09 02:15:00 Test Item Value Reference Range Comments TEG ACTIVATED CLOTTING TIME (BEAKER) (test 4.1 minutes 4.0-7.0 rdds=9187) TEG FIBRINOGEN ACTIVITY (BEAKER) (test 71.0 degrees 61.0-73.0 fuad=8300) TEG PLT. AGGREGATION (BEAKER) (test wjxz=1982) 55.1 MM 55.0-65.0 TEG FIBRINOLYSIS (BEAKER) (test kbto=3867) 1.2 % 0.0-5.0 TGH ACTIVATED CLOTTING TIME (BEAKER) (test 4.2 minutes 4.0-7.0 ezdr=7704) TGH FIBRINOGEN ACTIVITY (BEAKER) (test 69.7 degrees 61.0-73.0 zzub=4835) TGH PLT. AGGREGATION (BEAKER) (test skct=3042) 51.5 MM 55.0-65.0 TGH FIBRINOLYSIS (BEAKER) (test quce=0589) 0.0 % 0.0-5.0 [id number] 01:54:00 Test Item Value Reference Range Comments POTASSIUM (BEAKER) (test xaxy=476) 3.9 meq/L 3.5-5.1 [id number] 01:54:00 Test Item Value Reference Range Comments SODIUM (BEAKER) (test dwst=975) 138 meq/L 136-145 PLATELET [id number] 01:46:00 Test Item Value Reference Range Comments PLATELET COUNT (BEAKER) (test qbov=397) 69 K/CU MM 150-450 HEMOGLOBIN AND [id number] 01:46:00 Test Item Value Reference Range Comments HEMOGLOBIN (BEAKER) (test gdpo=611) 9.0 GM/DL 13.7-17.5 HEMATOCRIT (BEAKER) (test ldep=053) 27.4 % 40.1-51.0 POCT-BLOOD GASES, [id number] 01:27:00 Test Item Value Reference Range Comments TEMP, CELSIUS-POC (BEAKER) 36.4 (test zglk=5176) FIO2-POC (BEAKER) (test TESTED AT [facility] [address] [facility] qgvc=0360) [facility] [address] PH, ARTERIAL-POC (BEAKER) 7.194 7.350-7.450 (test gcgr=1193) PCO2, ARTERIAL-POC (BEAKER) 45.4 mm Hg 35.0-45.0 (test treu=4984) PO2, ARTERIAL-POC (BEAKER) 159.0 mm Hg 80.0-90.0 (test zegy=9654) SO2, ARTERIAL-POC (BEAKER) 99.0 % 96.0-97.0 (test eoci=0296) HCO3, ARTERIAL-POC (BEAKER) 17.7 meq/L 21.0-29.0 (test ttsl=8114) BASE EXCESS, ARTERIAL-POC -11.0 meq/L -2.0-3.0 (BEAKER) (test nfaq=9484) [id number] 01:27:00 Test Item Value Reference Range Comments POC-SODIUM (BEAKER) (test 141 meq/L 135-148 TESTED AT [address] vfiu=3215) [place] [id number] 01:27:00 Test Item Value Reference Range Comments POC-POTASSIUM (BEAKER) (test 4.0 meq/L 3.6-5.5 TESTED AT [address] dxgl=6153) [place] [address] [id number] 01:27:00 Test Item Value Reference Range Comments POC-GLUCOSE (BEAKER) (test 219 mg/dL 70-110 TESTED AT [address] tunl=7508) [place] [address] POCT-CALCIUM [id number] 01:27:00 Test Item Value Reference Range Comments POC-CALCIUM IONIZED (BEAKER) 0.99 mmol/L 1.12-1.27 TESTED AT [address] (test bjhj=8195) [place] [address] [id number] 01:27:00 Test Item Value Reference Range Comments POC-HEMATOCRIT (BEAKER) (test 20 % 40-50 TESTED AT [address] wpsu=3032) [place] [address] [id number] 01:27:00 Test Item Value Reference Range Comments POC-HEMOGLOBIN (BEAKER) 6.8 g/dL 13.0-16.8 TESTED AT [address] (test nqep=5343) [place] [address]TESTED AT [place] [address] HEMOGLOBIN AND [id number] 01:04:00 Test Item Value Reference Range Comments HEMOGLOBIN (BEAKER) (test rjxg=032) 6.9 GM/DL 13.7-17.5 HEMATOCRIT (BEAKER) (test jajv=320) 21.0 % 40.1-51.0 VANCOMYCIN LEVEL, [id number] 00:57:00 Test Item Value Reference Range Comments VANCOMYCIN TROUGH (BEAKER) (test imxy=539) 19.9 ug/mL 10.0-20.0 CALCIUM, [id number] 00:41:00 Test Item Value Reference Range Comments CALCIUM IONIZED (BEAKER) (test psry=406) 1.01 mmol/L 1.12-1.27 PH, BLOOD (BEAKER) (test lnhu=9724) 7.35 [id number] 00:41:00 Test Item Value Reference Range Comments POTASSIUM (BEAKER) (test srtx=590) 4.5 meq/L 3.5-5.1 HEMOGLOBIN AND [id number] 21:53:00 Test Item Value Reference Range Comments HEMOGLOBIN (BEAKER) (test yprh=827) 6.1 GM/DL 13.7-17.5 HEMATOCRIT (BEAKER) (test jjap=072) 18.0 % 40.1-51.0 [id number] 19:42:00 Test Item Value Reference Range Comments POTASSIUM (BEAKER) (test nvpf=704) 4.6 meq/L 3.5-5.1 [id number] 19:42:00 Test Item Value Reference Range Comments MAGNESIUM (BEAKER) (test nqds=716) 1.8 mg/dL 1.6-2.6 [id number] 19:42:00 Test Item Value Reference Range Comments PHOSPHORUS (BEAKER) (test idtc=521) 3.5 mg/dL 2.3-4.7 [id number] 19:42:00 Test Item Value Reference Range Comments SODIUM (BEAKER) (test vimx=513) 137 meq/L 136-145 PROTHROMBIN [id number] 19:40:00 Test Item Value Reference Range Comments PROTIME (BEAKER) (test xpjs=169) 18.3 seconds 11.7-14.7 INR (BEAKER) (test neyd=715) 1.5 <=5.9 RECOMMENDED COUMADIN/WARFARIN INR THERAPY RANGESSTANDARD DOSE: 2.0 - 3.0 Includes: PROPHYLAXIS forvenous thrombosis, systemic embolization; TREATMENT for venous thrombosis and/or pulmonary embolus.HIGH RISK: Target INR is 2.5-3.5 for patients with mechanical heart valves.PH, [id number] 19:30:00 Test Item Value Reference Range Comments PH ARTERIAL (BEAKER) (test mzco=234) 7.44 7.35-7.45 CALCIUM, [id number] 19:30:00 Test Item Value Reference Range Comments CALCIUM IONIZED (BEAKER) (test wkje=752) 1.13 mmol/L 1.12-1.27 PH, BLOOD (BEAKER) (test oihr=9755) 7.44 HEMOGLOBIN AND [id number] 19:28:00 Test Item Value Reference Range Comments HEMOGLOBIN (BEAKER) (test yflc=544) 7.5 GM/DL 13.7-17.5 HEMATOCRIT (BEAKER) (test wqwg=122) 21.8 % 40.1-51.0 POCT-GLUCOSE [id number] 17:21:00 Test Item Value Reference Range Comments POC-GLUCOSE METER (BEAKER) 189 mg/dL 70-110 TESTED AT [facility] [address] [facility] (test riyy=0676) [facility] [address] [id number] 16:23:00 Test Item Value Reference Range Comments MAGNESIUM (BEAKER) (test xwhq=913) 1.8 mg/dL 1.6-2.6 CALCIUM, [id number] 16:07:00 Test Item Value Reference Range Comments CALCIUM IONIZED (BEAKER) (test llwe=387) 1.14 mmol/L 1.12-1.27 PH, BLOOD (BEAKER) (test sqif=2296) 7.43 HEMOGLOBIN AND [id number] 16:05:00 Test Item Value Reference Range Comments HEMOGLOBIN (BEAKER) (test omaq=750) 8.1 GM/DL 13.7-17.5 HEMATOCRIT (BEAKER) (test adit=144) 23.4 % 40.1-51.0 BLOOD GAS, [id number] 12:34:00 Test Item Value Reference Range Comments PH ARTERIAL (BEAKER) (test cybm=000) 7.49 7.35-7.45 PCO2 ARTERIAL (BEAKER) (test vbkw=687) 33 mmHg 35-45 PO2 ARTERIAL (BEAKER) (test quwp=351) 245 mmHg 80-90 O2 SATURATION ARTERIAL (BEAKER) (test tnlx=831) 99.6 % 96.0-97.0 HCO3 ARTERIAL (BEAKER) (test neux=827) 24 mmol/L 21-29 BASE EXCESS ARTERIAL (BEAKER) (test wvwd=205) 0.9 mmol/L -2.0-3.0 PATIENT TEMPERATURE (BEAKER) (test gmzu=7599) 36.5 C FIO2 (BEAKER) (test phhw=1677) 60.0 % PROTHROMBIN [id number] 12:05:00 Test Item Value Reference Range Comments PROTIME (BEAKER) (test gxet=470) 18.1 seconds 11.7-14.7 INR (BEAKER) (test gsud=326) 1.5 <=5.9 RECOMMENDED COUMADIN/WARFARIN INR THERAPY RANGESSTANDARD DOSE: 2.0 - 3.0 Includes: PROPHYLAXIS forvenous thrombosis, systemic embolization; TREATMENT for venous thrombosis and/or pulmonary embolus.HIGH RISK: Target INR is 2.5-3.5 for patients with mechanical heart valves.BLOOD GAS, [id number] 11:30:00 Test Item Value Reference Range Comments PH ARTERIAL (BEAKER) (test hqei=041) 7.53 7.35-7.45 PCO2 ARTERIAL (BEAKER) (test lndg=103) 31 mmHg 35-45 PO2 ARTERIAL (BEAKER) (test ffyy=350) 224 mmHg 80-90 O2 SATURATION ARTERIAL (BEAKER) (test hitb=858) 99.6 % 96.0-97.0 HCO3 ARTERIAL (BEAKER) (test kcui=910) 25 mmol/L 21-29 BASE EXCESS ARTERIAL (BEAKER) (test bopw=294) 2.3 mmol/L -2.0-3.0 PATIENT TEMPERATURE (BEAKER) (test jcqy=0296) 36.5 C FIO2 (BEAKER) (test mtas=0741) 60.0 % CALCIUM, [id number] 11:29:00 Test Item Value Reference Range Comments CALCIUM IONIZED (BEAKER) (test tjwe=996) 1.15 mmol/L 1.12-1.27 PH, BLOOD (BEAKER) (test nnpc=0877) 7.52 POCT-GLUCOSE [id number] 11:22:00 Test Item Value Reference Range Comments POC-GLUCOSE METER (BEAKER) 202 mg/dL 70-110 TESTED AT [facility] [address] [facility] (test vwnh=2167) [facility] [address] [id number] 10:07:00 Test Item Value Reference Range Comments FIBRINOGEN LEVEL (BEAKER) (test shku=204) 222 mg/dl 225-434 HEMOGLOBIN AND [id number] 09:58:00 Test Item Value Reference Range Comments HEMOGLOBIN (BEAKER) (test ujht=531) 8.8 GM/DL 13.7-17.5 HEMATOCRIT (BEAKER) (test utbk=163) 25.4 % 40.1-51.0 TROPONIN [id number] 09:11:00 Test Item Value Reference Range Comments TROPONIN I (BEAKER) (test vdpa=881) 0.99 ng/mL 0.00-0.03 Troponin I (TnI) levels must be interpreted [...] failure, acidosis, acute neurological disease, and persistent tachyarrhythmia.CBC W/PLT COUNT & AUTO [id number] 09:10:00 Test Item Value Reference Range Comments WHITE BLOOD CELL COUNT 21.4 K/ L 3.5-10.5 (BEAKER) (test vbnn=886) RED BLOOD CELL COUNT (BEAKER) 2.53 M/ L 4.63-6.08 (test mnvk=733) HEMOGLOBIN (BEAKER) (test 7.6 GM/DL 13.7-17.5 rfvv=177) HEMATOCRIT (BEAKER) (test 21.3 % 40.1-51.0 hddw=625) MEAN CORPUSCULAR VOLUME 84.2 fL 79.0-92.2 Discordant from previous (BEAKER) (test okyx=532) results. Clinical correlation suggested. MEAN CORPUSCULAR HEMOGLOBIN 30.0 pg 25.7-32.2 (BEAKER) (test rzve=336) MEAN CORPUSCULAR HEMOGLOBIN 35.7 GM/DL 32.3-36.5 CONC (BEAKER) (test kraj=180) RED CELL DISTRIBUTION WIDTH 14.6 % 11.6-14.4 (BEAKER) (test zsbm=342) PLATELET COUNT (BEAKER) (test 133 K/CU MM 150-450 oolb=949) MEAN PLATELET VOLUME (BEAKER) 11.7 fL 9.4-12.4 (test hyoz=193) NUCLEATED RED BLOOD CELLS 0 /100 WBC 0-0 (BEAKER) (test vhlu=145) (CELLAVISION MANUAL DIFF)2018-07-08 09:10:00 Test Item Value Reference Range Comments NEUTROPHILS - REL (CELLAVISION)(BEAKER) (test 92 % gymw=8350) LYMPHOCYTES - REL (CELLAVISION)(BEAKER) (test 6 % sslo=0856) MONOCYTES - REL (CELLAVISION)(BEAKER) (test 2 % dahv=1255) NEUTROPHILS - ABS (CELLAVISION)(BEAKER) (test 19.69 K/ul 1.78-5.38 sapv=9517) LYMPHOCYTES - ABS (CELLAVISION)(BEAKER) (test 1.28 K/ul 1.32-3.57 zqmm=7100) MONOCYTES - ABS (CELLAVISION)(BEAKER) (test 0.43 K/uL 0.30-0.82 zany=9871) TOTAL COUNTED (BEAKER) (test wnhp=1773) 100 WBC MORPHOLOGY (BEAKER) (test lkjn=258) Normal PLT MORPHOLOGY (BEAKER) (test ifsy=465) Normal POLYCHROMATOPHILLIC RBCS(BEAKER) (test puch=155) 1+ few ANISOCYTOSIS (BEAKER) (test ynnh=569) 1+ few ARTIFACT (CELLAVISION)(BEAKER) (test wqtk=0681) Present PLATELET CONCENTRATION (CELLAVISION)(BEAKER) Decreased (test zcmk=4049) Received comment: User comments: Slide comments:RAD, CHEST, 1 VIEW, NON [id number] -09-15 08:52:00Reason for exam:->intubated, assess interval change in pulmonary edema vs aspiration after CRRTShould this be performed at the bedside? ->YesFINAL REPORT Portable chest. CLINICAL HISTORY: Intubated. COMPARISON STUDY: July 07, 2018. FINDINGS: The cardiac size is enlarged. An endotracheal tube is in place, the tip approximately 3 cm above the rashmi. There is a right jugular line. Sternotomy wires are seen. Some atelectasis or consolidation is seen in the lung bases with blunting of the costophrenic angles. No pneumothorax is seen. Signed: Sharath Serra MDReport Verified Date/Time: 07/08/2018 08:52:14 ReadingLocation: [facility] B1 [id number] Ortho Consult Reading Room Electronically signed by: SHARATH SERRA M.D. on 08:52 AMLACTIC ACID, ARTERIAL, WHOLE [id number] 08:43:00 Test Item Value Reference Range Comments LACTATE BLOOD ARTERIAL (2) (BEAKER) (test 1.1 mmol/L 0.5-2.2 zmty=8108) Effective 02/25/2016: Units/Reference Range ChangeNew: 0.5-2.2 mmol/L Previous: 5 -20 mg/[id number] 08:12:00 Test Item Value Reference Range Comments POTASSIUM (BEAKER) (test hbmz=189) 3.9 meq/L 3.5-5.1 [id number] 08:12:00 Test Item Value Reference Range Comments MAGNESIUM (BEAKER) (test rqrl=883) 1.8 mg/dL 1.6-2.6 [id number] 08:12:00 Test Item Value Reference Range Comments PHOSPHORUS (BEAKER) (test jdnr=397) 2.2 mg/dL 2.3-4.7 [id number] 08:12:00 Test Item Value Reference Range Comments SODIUM (BEAKER) (test siax=540) 134 meq/L 136-145 HEMOGLOBIN AND [id number] 07:56:00 Test Item Value Reference Range Comments HEMOGLOBIN (BEAKER) (test yprc=870) 8.9 GM/DL 13.7-17.5 HEMATOCRIT (BEAKER) (test cmwg=033) 25.7 % 40.1-51.0 PH, [id number] 07:55:00 Test Item Value Reference Range Comments PH ARTERIAL (BEAKER) (test ujjq=021) 7.63 7.35-7.45 CALCIUM, [id number] 07:53:00 Test Item Value Reference Range Comments CALCIUM IONIZED (BEAKER) (test hijk=633) 1.06 mmol/L 1.12-1.27 PH, BLOOD (BEAKER) (test zveh=1647) 7.63 POCT-GLUCOSE [id number] 07:42:00 Test Item Value Reference Range Comments POC-GLUCOSE METER (BEAKER) 190 mg/dL 70-110 TESTED AT [address] (test vbey=5379) [facility] [address] FIBRIN SOLU[place] [id number] 07:40:00 Test Item Value Reference Range Comments FIBRIN SOLUBLE MONOMER (BEAKER) (test nxwi=3002) Negative HEMOGLOBIN AND [id number] 06:23:00 Test Item Value Reference Range Comments HEMOGLOBIN (BEAKER) (test xvpl=378) 7.3 GM/DL 13.7-17.5 HEMATOCRIT (BEAKER) (test uqbl=380) 21.0 % 40.1-51.0 THROMBOELASTOGRAPH (TEG)2018-07-08 05:38:00 Test Item Value Reference Range Comments TEG ACTIVATED CLOTTING TIME (BEAKER) (test 4.0 minutes 4.0-7.0 roln=4468) TEG FIBRINOGEN ACTIVITY (BEAKER) (test 73.8 degrees 61.0-73.0 ytgi=6652) TEG PLT. AGGREGATION (BEAKER) (test cear=4251) 60.8 MM 55.0-65.0 TEG FIBRINOLYSIS (BEAKER) (test lnhz=6467) 0.0 % 0.0-5.0 TGH ACTIVATED CLOTTING TIME (BEAKER) (test 4.1 minutes 4.0-7.0 neal=4592) TGH FIBRINOGEN ACTIVITY (BEAKER) (test 74.4 degrees 61.0-73.0 tevh=8730) TGH PLT. AGGREGATION (BEAKER) (test wgqj=4764) 56.0 MM 55.0-65.0 TGH FIBRINOLYSIS (BEAKER) (test lcix=0679) 0.0 % 0.0-5.0 CALCIUM, [id number] 05:19:00 Test Item Value Reference Range Comments CALCIUM IONIZED (BEAKER) (test oced=261) 1.28 mmol/L 1.12-1.27 PH, BLOOD (BEAKER) (test xhey=0720) 7.40 [id number] 04:51:00 Test Item Value Reference Range Comments MAGNESIUM (BEAKER) (test nbup=750) 2.0 mg/dL 1.6-2.6 BASIC METABOLIC [id number] 04:51:00 Test Item Value Reference Range Comments SODIUM (BEAKER) (test 135 meq/L 136-145 nkle=479) POTASSIUM (BEAKER) (test 4.2 meq/L 3.5-5.1 vemp=192) CHLORIDE (BEAKER) (test 106 meq/L 98-107 xeut=264) CO2 (BEAKER) (test 20 meq/L 22-29 xfbd=023) BLOOD UREA NITROGEN 26 mg/dL 7-21 (BEAKER) (test bsjc=211) CREATININE (BEAKER) (test 2.27 mg/dL 0.57-1.25 ppes=886) GLUCOSE RANDOM (BEAKER) 249 mg/dL 70-105 (test xpat=894) CALCIUM (BEAKER) (test 8.1 mg/dL 8.4-10.2 crve=896) EGFR (BEAKER) (test 30 mL/min/1.73 sq m ESTIMATED GFR IS NOT afqh=7673) ACCURATE CREATININE CLEARANCE IN PREDICTING GLOMERULAR FILTRATION RATE. ESTIMATED GFR IS NOT APPLICABLE FOR DIALYSIS PATIENTS. Specimen slightly ictericHEPATIC FUNCTION [id number] 04:51:00 Test Item Value Reference Range Comments TOTAL PROTEIN (BEAKER) (test ofsa=484) 4.4 gm/dL 6.0-8.3 ALBUMIN (BEAKER) (test xuza=2451) 2.5 g/dL 3.5-5.0 BILIRUBIN TOTAL (BEAKER) (test ryvo=557) 2.3 mg/dL 0.2-1.2 BILIRUBIN DIRECT (BEAKER) (test phap=360) 1.7 mg/dL 0.1-0.5 ALKALINE PHOSPHATASE (BEAKER) (test nfds=533) 71 U/L 40-150 AST (SGOT) (BEAKER) (test dnge=776) 73 U/L 5-34 ALT (SGPT) (BEAKER) (test lkpd=149) 34 U/L 6-55 Specimen slightly znhtvbfV-[id number] 04:45:00 Test Item Value Reference Range Comments D-DIMER QUANTITATIVE (BEAKER) (test xmkd=200) 2.09 MG/L FEU <0.50 Intended Use: The D-Dimer Assay can be used to aid in the diagnosis of Deep Vein Thrombosis (DVT) and Pulmonary Embolism Disease (PED).In patients with low pre-test probability, various studies concerning STA Liatest D-dimer test have reported that with a cutoff value of 0.50 MG/L FEU, the Negative Predictive Value (NPV) regarding the exclusion of thrombosis is within 95-100% range.[id number] 04:43:00 Test Item Value Reference Range Comments PARTIAL THROMBOPLASTIN TIME (BEAKER) (test 34.4 seconds 22.5-36.0 egms=037) PROTHROMBIN TIME/[id number] 04:41:00 Test Item Value Reference Range Comments PROTIME (BEAKER) (test sboa=197) 18.7 seconds 11.7-14.7 INR (BEAKER) (test ynzv=957) 1.6 <=5.9 RECOMMENDED COUMADIN/WARFARIN INR THERAPY RANGESSTANDARD DOSE: 2.0 - 3.0 Includes: PROPHYLAXIS forvenous thrombosis, systemic embolization; TREATMENT for venous thrombosis and/or pulmonary embolus.HIGH RISK: Target INR is 2.5-3.5 for patients with mechanical heart valves.LACTIC ACID, VENOUS, WHOLE [id number] 04:34:00 Test Item Value Reference Range Comments LACTATE BLOOD VENOUS (2) (BEAKER) (test 2.6 mmol/L 0.5-2.2 qklt=7994) Effective 02/25/2016: Units/Reference Range ChangeNew: 0.5-2.2 mmol/L Previous: 5 -20 mg/dLBLOOD GAS, [id number] 04:19:00 Test Item Value Reference Range Comments PH ARTERIAL (BEAKER) (test dizr=531) 7.59 7.35-7.45 PCO2 ARTERIAL (BEAKER) (test esxu=537) 24 mmHg 35-45 PO2 ARTERIAL (BEAKER) (test cijy=060) 362 mmHg 80-90 O2 SATURATION ARTERIAL (BEAKER) (test ltel=413) 99.8 % 96.0-97.0 HCO3 ARTERIAL (BEAKER) (test fcwj=688) 23 mmol/L 21-29 BASE EXCESS ARTERIAL (BEAKER) (test ujqj=925) 1.3 mmol/L -2.0-3.0 PATIENT TEMPERATURE (BEAKER) (test jusg=3798) 37.5 C FIO2 (BEAKER) (test haxk=1308) 100.0 % HEMOGLOBIN AND [id number] 02:16:00 Test Item Value Reference Range Comments HEMOGLOBIN (BEAKER) (test edfc=086) 7.9 GM/DL 13.7-17.5 HEMATOCRIT (BEAKER) (test xors=588) 22.4 % 40.1-51.0 [id number] 00:24:00 Test Item Value Reference Range Comments POTASSIUM (BEAKER) (test aiab=697) 4.1 meq/L 3.5-5.1 CALCIUM, [id number] 00:22:00 Test Item Value Reference Range Comments CALCIUM IONIZED (BEAKER) (test pksm=693) 1.09 mmol/L 1.12-1.27 PH, BLOOD (BEAKER) (test oyad=0039) 7.44 HEMOGLOBIN AND [id number] 00:16:00 Test Item Value Reference Range Comments HEMOGLOBIN (BEAKER) (test fkxh=380) 8.1 GM/DL 13.7-17.5 HEMATOCRIT (BEAKER) (test ipjq=199) 23.8 % 40.1-51.0 HEMOGLOBIN AND [id number] 22:26:00 Test Item Value Reference Range Comments HEMOGLOBIN (BEAKER) (test wxtq=026) 8.1 GM/DL 13.7-17.5 HEMATOCRIT (BEAKER) (test gfca=340) 23.7 % 40.1-51.0 POCT-GLUCOSE [id number] 22:10:00 Test Item Value Reference Range Comments POC-GLUCOSE METER (BEAKER) 257 mg/dL 70-110 TESTED AT [facility] [address] (test vgcm=8752) [facility] [address] THROMBOELASTOGRAPH (TEG)2018-07-07 21:16:00 Test Item Value Reference Range Comments TEG ACTIVATED CLOTTING TIME (BEAKER) (test 4.7 minutes 4.0-7.0 gqhx=1269) TEG FIBRINOGEN ACTIVITY (BEAKER) (test 72.6 degrees 61.0-73.0 orwm=3685) TEG PLT. AGGREGATION (BEAKER) (test qvqu=0470) 58.5 MM 55.0-65.0 TEG FIBRINOLYSIS (BEAKER) (test bait=8944) 15.7 % 0.0-5.0 TGH ACTIVATED CLOTTING TIME (BEAKER) (test 4.4 minutes 4.0-7.0 ahrq=8752) TGH FIBRINOGEN ACTIVITY (BEAKER) (test 71.7 degrees 61.0-73.0 bwtn=2374) TGH PLT. AGGREGATION (BEAKER) (test bwrf=1368) 49.1 MM 55.0-65.0 TGH FIBRINOLYSIS (BEAKER) (test hcks=1111) 0.0 % 0.0-5.0 [id number] 21:02:00 Test Item Value Reference Range Comments POTASSIUM (BEAKER) (test fvkf=191) 4.1 meq/L 3.5-5.1 [id number] 21:02:00 Test Item Value Reference Range Comments MAGNESIUM (BEAKER) (test jwho=817) 1.7 mg/dL 1.6-2.6 [id number] 21:02:00 Test Item Value Reference Range Comments PHOSPHORUS (BEAKER) (test bhtm=065) 4.3 mg/dL 2.3-4.7 [id number] 21:02:00 Test Item Value Reference Range Comments SODIUM (BEAKER) (test wgib=333) 138 meq/L 136-145 CALCIUM, [id number] 20:36:00 Test Item Value Reference Range Comments CALCIUM IONIZED (BEAKER) (test fans=597) 0.98 mmol/L 1.12-1.27 PH, BLOOD (BEAKER) (test dfdm=1309) 7.34 PH, [id number] 20:36:00 Test Item Value Reference Range Comments PH ARTERIAL (BEAKER) (test ajch=773) 7.34 7.35-7.45 HEMOGLOBIN AND [id number] 20:30:00 Test Item Value Reference Range Comments HEMOGLOBIN (BEAKER) (test rchd=775) 7.8 GM/DL 13.7-17.5 HEMATOCRIT (BEAKER) (test fprn=321) 22.8 % 40.1-51.0 RAD, CHEST, 1 VIEW, NON [id number] 19:08:00Reason for exam:->s/p dialysis catheterShould this be performed at the bedside?->YesFINAL REPORT Chest, 1 view. History: Dialysis catheter placement. Comparison:07/07/2018 at 0953. Impression: There has been interval placement of a right IJ coursing nontunneleddialysis catheter with distal tip superimposing the SVC. Endotracheal tube tip is in stable position. Post surgical changes from prior median sternotomy again noted. Increased opacities noted within the left lower lung zone and retrocardiac region, similar to the prior examination. A small left-sided pleural effusion is possible. The right lung is clear. There is no evidence for pneumothorax. The cardiomediastinal silhouette is stable in appearance. No acute osseous abnormality is identified. Signed: Brendan Azar MDReport Verified Date/Time: 07/07/2018 19:08:34 Reading Location: [facility] [id number] Consult Reading Room ANG, VISCERAL [id number] 18:27:00from ercpFINAL REPORT Exam: Visceral arteriogram Clinical History: Status post recent ERCP and sphincterotomy with acute GI bleeding post procedure Consent: Benefits and risks were explained to the patient who gave consent to the procedure. Fluoro Time: 5.5 Minutes Total Images: 97 Medication: Versed 0.5 mg IV Procedure: Sterile barrier technique was followed including cap, mask , sterile gown, sterile gloves, sterile sheet, hand [...] closure device. The arteriotomy was closed teaching Angio- Seal. Hemostasis was achieved. The patient tolerated the procedure well without any adverse reactions. He left the department in stable condition. Complication : None immediate Impression: 1. Visceral arteriogramas described. Signed: Sosa Euceda MDReport Verified Date/Time: 07/07/2018 18:27:51 Reading Location: [facility] Radiology Reading Room HEMOGLOBIN AND [id number] 18:25:00 Test Item Value Reference Range Comments HEMOGLOBIN (BEAKER) (test sudo=318) 7.6 GM/DL 13.7-17.5 HEMATOCRIT (BEAKER) (test ugnq=061) 22.8 % 40.1-51.0 TROPONIN [id number] 18:16:00 Test Item Value Reference Range Comments TROPONIN I (BEAKER) (test cuhz=537) 0.26 ng/mL 0.00-0.03 Troponin I (TnI) levels must be interpreted [...] failure, acidosis, acute neurological disease, and persistent tachyarrhythmia.BASIC METABOLIC [id number] 17:33:00 Test Item Value Reference Range Comments SODIUM (BEAKER) (test 141 meq/L 136-145 tswj=768) POTASSIUM (BEAKER) (test 4.2 meq/L 3.5-5.1 teul=291) CHLORIDE (BEAKER) (test 107 meq/L 98-107 csky=829) CO2 (BEAKER) (test 12 meq/L 22-29 olev=170) BLOOD UREA NITROGEN 25 mg/dL 7-21 (BEAKER) (test lsua=618) CREATININE (BEAKER) (test 2.29 mg/dL 0.57-1.25 auxy=777) GLUCOSE RANDOM (BEAKER) 259 mg/dL 70-105 (test ujhb=425) CALCIUM (BEAKER) (test 7.3 mg/dL 8.4-10.2 xsyn=347) EGFR (BEAKER) (test 30 mL/min/1.73 sq m ESTIMATED GFR IS NOT dfgz=2013) ACCURATE CREATININE CLEARANCE IN PREDICTING GLOMERULAR FILTRATION RATE. ESTIMATED GFR IS NOT APPLICABLE FOR DIALYSIS PATIENTS. [id number] 17:32:00 Test Item Value Reference Range Comments MAGNESIUM (BEAKER) (test ugsx=493) 1.7 mg/dL 1.6-2.6 POCT-GLUCOSE [id number] 17:29:00 Test Item Value Reference Range Comments POC-GLUCOSE METER (BEAKER) 283 mg/dL 70-110 TESTED AT [facility] [address] (test ummf=4625) [facility] [address] SODIUM, RANDOM [id number] 17:20:00 Test Item Value Reference Range Comments SODIUM URINE (BEAKER) (test qvag=419) < meq/L Reference Range: No NormalsFIBRIN SOLUBLE [id number] 17:20:00 Test Item Value Reference Range Comments FIBRIN SOLUBLE MONOMER (BEAKER) (test psdh=9903) Negative ANG, ARTERIAL EMBOLIZATION FOR [id number] 17:15:00Reason for exam:->s/p ERCP with bleedFINAL REPORT History: Upper GI bleed, active bleeding by recent endoscopy. PROCEDURE: Following informed written consent, the patient's right femoral area was prepped and draped in the usual sterile manner. 2% lidocaine was given locally for anesthesia. No conscious sedation wasadministered. Access was gained to the right common femoral artery and a 5 Jamaican sheath was placed.A 5 Jamaican Alcantar B catheter was placed over a wire into the abdominal aorta and used to carefully select and perform celiac and superior mesenteric arteriograms. With the catheter parked in origin of the superior mesenteric artery, coaxial technique was utilized to advance a 3 Jamaican microcatheter over a wire and into a proximal branch of the places replaced right hepatic artery which appears to be agastroduodenal vessel. Subselective arteriography was performed. The 3 Jamaican microcatheter was further advanced into a distal duodenal branch of this vessel in the region of the patient's known hemorrhage, an endoscopically placed stents and clips. Again , subselective arteriography was performed. Transcatheter empiric embolization of the duodenal branch was achieved using two 2 x 2 cm detachable microcoils. Repeat arteriogram was performed following embolization to confirm stasis of flow in this duodenal vessel. At the conclusion of the procedure the catheters and sheath were removed and hemostasis achieved using a 5 Jamaican mynx closure device. Overall, the patient tolerated [...] reported as (Ka,r): 3073 mGy Signed: Felicitas Alvarezeport Verified Date/ Time: 07/07/2018 17:15:21 Reading Location: [place] [address] Angio Body Reading Room 05:15 PMCREATININE, RANDOM [id number] 17:14:00 Test Item Value Reference Range Comments CREATININE URINE (BEAKER) (test droo=097) 68.4 mg/dL Reference Range: No NormalsPROTEIN, RANDOM [id number] 17:14:00 Test Item Value Reference Range Comments PROTEIN, URINE (BEAKER) (test ikho=2358) 33 mg/dL 0-14 [id number] 16:58:00 Test Item Value Reference Range Comments POTASSIUM (BEAKER) (test gdsq=231) 4.2 meq/L 3.5-5.1 URINALYSIS WITH MICROSCOPIC IF [id number] 16:43:00 Test Item Value Reference Range Comments COLOR (BEAKER) (test paek=543) Yellow CLARITY (BEAKER) (test dlsk=339) Hazy SPECIFIC GRAVITY UA (BEAKER) (test atpd=367) 1.040 1.001-1.035 PH UA (BEAKER) (test chlg=094) 6.0 5.0-8.0 PROTEIN UA (BEAKER) (test eywy=398) 20 mg/dL Negative GLUCOSE UA (BEAKER) (test grvw=540) 30 mg/dL Negative KETONES UA (BEAKER) (test vyrb=946) 10 mg/dL Negative BILIRUBIN UA (BEAKER) (test wmuh=574) Negative Negative BLOOD UA (BEAKER) (test pqrt=062) Negative Negative NITRITE UA (BEAKER) (test dmtv=081) Negative Negative LEUKOCYTE ESTERASE UA (BEAKER) (test cwhy=945) Negative Negative UROBILINOGEN UA (BEAKER) (test dero=508) 0.2 mg/dL 0.2-1.0 SOURCE(BEAKER) (test kblw=5301) URINALYSIS [id number] 16:43:00 Test Item Value Reference Range Comments RBC UA (BEAKER) (test btzg=557) 1 /HPF WBC UA (BEAKER) (test xvwp=512) 5 /HPF MUCUS (BEAKER) (test mtpe=5042) Rare SQUAMOUS EPITHELIAL (BEAKER) (test hawq=869) 1 /HPF HEMOGLOBIN AND [id number] 16:37:00 Test Item Value Reference Range Comments HEMOGLOBIN (BEAKER) (test xqad=760) 8.1 GM/DL 13.7-17.5 HEMATOCRIT (BEAKER) (test dzxq=592) 24.6 % 40.1-51.0 CALCIUM, [id number] 16:23:00 Test Item Value Reference Range Comments CALCIUM IONIZED (BEAKER) (test tmdv=095) 0.91 mmol/L 1.12-1.27 PH, BLOOD (BEAKER) (test pwbn=5367) 7.30 BASIC METABOLIC [id number] 15:27:00 Test Item Value Reference Range Comments SODIUM (BEAKER) (test 134 meq/L 136-145 aojk=585) POTASSIUM (BEAKER) (test 4.3 meq/L 3.5-5.1 mmdg=647) CHLORIDE (BEAKER) (test 107 meq/L 98-107 mquu=198) CO2 (BEAKER) (test 13 meq/L 22-29 fxgv=082) BLOOD UREA NITROGEN 24 mg/dL 7-21 (BEAKER) (test ccol=998) CREATININE (BEAKER) (test 2.04 mg/dL 0.57-1.25 exco=792) GLUCOSE RANDOM (BEAKER) 247 mg/dL 70-105 (test fxhc=380) CALCIUM (BEAKER) (test 6.8 mg/dL 8.4-10.2 welg=142) EGFR (BEAKER) (test 34 mL/min/1.73 sq m ESTIMATED GFR IS NOT ovkf=6120) ACCURATE CREATININE CLEARANCE IN PREDICTING GLOMERULAR FILTRATION RATE. ESTIMATED GFR IS NOT APPLICABLE FOR DIALYSIS PATIENTS. [id number] 15:26:00 Test Item Value Reference Range Comments PHOSPHORUS (BEAKER) (test typq=952) 4.5 mg/dL 2.3-4.7 [id number] 15:26:00 Test Item Value Reference Range Comments MAGNESIUM (BEAKER) (test ebrp=490) 1.6 mg/dL 1.6-2.6 BASIC METABOLIC [id number] 15:26:00 Test Item Value Reference Range Comments SODIUM (BEAKER) (test 134 meq/L 136-145 yspr=736) POTASSIUM (BEAKER) (test 4.3 meq/L 3.5-5.1 uhvq=549) CHLORIDE (BEAKER) (test 107 meq/L 98-107 heqb=387) CO2 (BEAKER) (test 13 meq/L 22-29 acsc=600) BLOOD UREA NITROGEN 25 mg/dL 7-21 (BEAKER) (test ypvs=438) CREATININE (BEAKER) (test 2.04 mg/dL 0.57-1.25 odmu=424) GLUCOSE RANDOM (BEAKER) 247 mg/dL 70-105 (test dgvl=587) CALCIUM (BEAKER) (test 6.8 mg/dL 8.4-10.2 rcau=255) EGFR (BEAKER) (test 34 mL/min/1.73 sq m ESTIMATED GFR IS NOT usrp=0618) ACCURATE CREATININE CLEARANCE IN PREDICTING GLOMERULAR FILTRATION RATE. ESTIMATED GFR IS NOT APPLICABLE FOR DIALYSIS PATIENTS. LACTIC ACID, ARTERIAL, WHOLE [id number] 15:20:00 Test Item Value Reference Range Comments LACTATE BLOOD ARTERIAL (2) (BEAKER) (test 9.1 mmol/L 0.5-2.2 dqne=7116) Effective 02/25/2016: Units/Reference Range ChangeNew: 0.5-2.2 mmol/L Previous: 5 -20 mg/[id number] 15:14:00 Test Item Value Reference Range Comments FIBRINOGEN LEVEL (BEAKER) (test burh=061) 158 mg/dl 225-434 PT/[id number] 15:10:00 Test Item Value Reference Range Comments PROTIME (BEAKER) (test bhhr=731) 22.1 seconds 11.7-14.7 INR (BEAKER) (test xemr=616) 1.9 <=5.9 PARTIAL THROMBOPLASTIN TIME (BEAKER) (test 36.0 seconds 22.5-36.0 bhlv=824) RECOMMENDED COUMADIN/WARFARIN INR THERAPY RANGESSTANDARD DOSE: 2.0 - 3.0 Includes: PROPHYLAXIS forvenous thrombosis, systemic embolization; TREATMENT for venous thrombosis and/or pulmonary embolus.HIGH RISK: Target INR is 2.5-3.5 for patients with mechanical heart valves.PROTHROMBIN TIME/[id number] 15:09: 00 Test Item Value Reference Range Comments PROTIME (BEAKER) (test omod=467) 22.1 seconds 11.7-14.7 INR (BEAKER) (test kepo=878) 1.9 <=5.9 RECOMMENDED COUMADIN/WARFARIN INR THERAPY RANGESSTANDARD DOSE: 2.0 - 3.0 Includes: PROPHYLAXIS forvenous thrombosis, systemic embolization; TREATMENT for venous thrombosis and/or pulmonary embolus.HIGH RISK: Target INR is 2.5-3.5 for patients with mechanical heart valves.PROTHROMBIN TIME/[id number] 15:08: 00 Test Item Value Reference Range Comments PROTIME (BEAKER) (test iysv=029) 22.2 seconds 11.7-14.7 INR (BEAKER) (test fjui=149) 2.0 <=5.9 RECOMMENDED COUMADIN/WARFARIN INR THERAPY RANGESSTANDARD DOSE: 2.0 - 3.0 Includes: PROPHYLAXIS forvenous thrombosis, systemic embolization; TREATMENT for venous thrombosis and/or pulmonary embolus.HIGH RISK: Target INR is 2.5-3.5 for patients with mechanical heart valves.CBC W/PLT COUNT & AUTO [id number] 15:07:00 Test Item Value Reference Range Comments WHITE BLOOD CELL COUNT (BEAKER) (test lwns=024) 21.4 K/ L 3.5-10.5 RED BLOOD CELL COUNT (BEAKER) (test dhvy=501) 2.92 M/ L 4.63-6.08 HEMOGLOBIN (BEAKER) (test ypgh=370) 8.6 GM/DL 13.7-17.5 HEMATOCRIT (BEAKER) (test otoj=365) 26.1 % 40.1-51.0 MEAN CORPUSCULAR VOLUME (BEAKER) (test ghdg=364) 89.4 fL 79.0-92.2 MEAN CORPUSCULAR HEMOGLOBIN (BEAKER) (test 29.5 pg 25.7-32.2 ljdg=036) MEAN CORPUSCULAR HEMOGLOBIN CONC (BEAKER) (test 33.0 GM/DL 32.3-36.5 zixh=641) RED CELL DISTRIBUTION WIDTH (BEAKER) (test 14.6 % 11.6-14.4 lcst=452) PLATELET COUNT (BEAKER) (test xibe=902) 99 K/CU MM 150-450 MEAN PLATELET VOLUME (BEAKER) (test vnbe=544) 11.2 fL 9.4-12.4 NUCLEATED RED BLOOD CELLS (BEAKER) (test 0 /100 WBC 0-0 wpef=121) NEUTROPHILS RELATIVE PERCENT (BEAKER) (test 86 % bape=552) LYMPHOCYTES RELATIVE PERCENT (BEAKER) (test 7 % rnoz=841) MONOCYTES RELATIVE PERCENT (BEAKER) (test 6 % zbfr=336) EOSINOPHILS RELATIVE PERCENT (BEAKER) (test 0 % ncyy=116) BASOPHILS RELATIVE PERCENT (BEAKER) (test 0 % jjfu=269) NEUTROPHILS ABSOLUTE COUNT (BEAKER) (test 18.45 K/ L 1.78-5.38 iopy=644) LYMPHOCYTES ABSOLUTE COUNT (BEAKER) (test 1.40 K/ L 1.32-3.57 yzpq=376) MONOCYTES ABSOLUTE COUNT (BEAKER) (test ptxf=329) 1.36 K/ L 0.30-0.82 EOSINOPHILS ABSOLUTE COUNT (BEAKER) (test 0.00 K/ L 0.04-0.54 rocg=535) BASOPHILS ABSOLUTE COUNT (BEAKER) (test wohy=410) 0.02 K/ L 0.01-0.08 IMMATURE GRANULOCYTES-RELATIVE PERCENT (BEAKER) 1 % 0-1 (test zapb=4152) BLOOD GAS, [id number] 14:58:00 Test Item Value Reference Range Comments PH ARTERIAL (BEAKER) (test ibbu=330) 7.30 7.35-7.45 PCO2 ARTERIAL (BEAKER) (test jjvt=070) 30 mmHg 35-45 PO2 ARTERIAL (BEAKER) (test vvez=886) 188 mmHg 80-90 O2 SATURATION ARTERIAL (BEAKER) (test hgol=589) 99.2 % 96.0-97.0 HCO3 ARTERIAL (BEAKER) (test jjpd=774) 14 mmol/L 21-29 BASE EXCESS ARTERIAL (BEAKER) (test dcex=376) -11.0 mmol/L -2.0-3.0 PATIENT TEMPERATURE (BEAKER) (test gmic=1582) 37.0 C FIO2 (BEAKER) (test jaev=2424) 40.0 % HEMOGLOBIN AND [id number] 14:56:00 Test Item Value Reference Range Comments HEMOGLOBIN (BEAKER) (test ylzs=083) 8.6 GM/DL 13.7-17.5 HEMATOCRIT (BEAKER) (test dwqw=237) 25.7 % 40.1-51.0 FIBRIN SOLUBLE [id number] 13:26:00 Test Item Value Reference Range Comments FIBRIN SOLUBLE MONOMER (BEAKER) (test yidq=0808) Negative THROMBOELASTOGRAPH (TEG)2018-07-07 13:00:00 Test Item Value Reference Range Comments TEG ACTIVATED CLOTTING TIME (BEAKER) (test 2.8 minutes 4.0-7.0 scki=6159) TEG FIBRINOGEN ACTIVITY (BEAKER) (test 68.1 degrees 61.0-73.0 cgiz=3817) TEG PLT. AGGREGATION (BEAKER) (test pngk=5591) 51.2 MM 55.0-65.0 TEG FIBRINOLYSIS (BEAKER) (test ysyx=0125) 0.0 % 0.0-5.0 TGH ACTIVATED CLOTTING TIME (BEAKER) (test 3.1 minutes 4.0-7.0 cbxb=3656) TGH FIBRINOGEN ACTIVITY (BEAKER) (test 67.7 degrees 61.0-73.0 wqvp=4099) TGH PLT. AGGREGATION (BEAKER) (test hkiz=1275) 48.9 MM 55.0-65.0 TGH FIBRINOLYSIS (BEAKER) (test ycpe=3260) 0.0 % 0.0-5.0 [id number] 12:02:00 Test Item Value Reference Range Comments PARTIAL THROMBOPLASTIN TIME (BEAKER) (test 35.0 seconds 22.5-36.0 jcth=169) PROTHROMBIN TIME/[id number] 12:01:00 Test Item Value Reference Range Comments PROTIME (ASIM) (test ilgh=189) 20.2 seconds 11.7-14.7 INR (BEAKER) (test tdiy=095) 1.7 <=5.9 RECOMMENDED COUMADIN/WARFARIN INR THERAPY RANGESSTANDARD DOSE: 2.0 - 3.0 Includes: PROPHYLAXIS forvenous thrombosis, systemic embolization; TREATMENT for venous thrombosis and/or pulmonary embolus.HIGH RISK: Target INR is 2.5-3.5 for patients with mechanical heart valves.HI, [id number] 11:51:00Reason for exam:->bleeding s/p ercpFINAL REPORT ERCP, 07/07/2018 Clinical History: Bleeding Impression: Intraoperative images are obtained. The radiologist is not present during the procedure. Fluoroscopy was not performed by the undersigned. Images are presented for interpretation at the completion of the procedure. Please refer to the procedure report for more details. Four images are cemented demonstrating interrogation of the biliary tree. The contrast collection noted in the imaged upper abdomen. Refer to operative note. Fluoroscopy time is 2.6 minutes. Signed: Emile Lockhart MDReport Verified Date/ Time: 07/07/2018 11:51:44 Reading Location: [address] Radiology Reading Room Electronically signedby: EMILE LOCKHART M.D. on 07/07/2018 11:51 AMLACTIC ACID, ARTERIAL, WHOLE [id number] 11:48:00 Test Item Value Reference Range Comments LACTATE BLOOD ARTERIAL (2) (ASIM) (test 7.4 mmol/L 0.5-2.2 fkpk=1668) Effective 02/25/2016: Units/Reference Range ChangeNew: 0.5-2.2 mmol/L Previous: 5 -20 mg/[id number] 11:36:00 Test Item Value Reference Range Comments D-DIMER QUANTITATIVE (VANESSAAKER) (test vgxa=206) 1.79 MG/L FEU <0.50 Intended Use: The D-Dimer Assay can be used to aid in the diagnosis of Deep Vein Thrombosis (DVT) and Pulmonary Embolism Disease (PED).In patients with low pre-test probability, various studies concerning STA Liatest D-dimer test have reported that with a cutoff value of 0.50 MG/L FEU, the Negative Predictive Value (NPV) regarding the exclusion of thrombosis is within 95-100% range.BLOOD GAS, [id number] 11:35:00 Test Item Value Reference Range Comments PH ARTERIAL (BEAKER) (test tuya=985) 7.31 7.35-7.45 PCO2 ARTERIAL (BEAKER) (test ltpt=115) 35 mmHg 35-45 PO2 ARTERIAL (BEAKER) (test seqb=226) 135 mmHg 80-90 O2 SATURATION ARTERIAL (BEAKER) (test fqff=491) 98.5 % 96.0-97.0 HCO3 ARTERIAL (BEAKER) (test yqon=158) 18 mmol/L 21-29 BASE EXCESS ARTERIAL (BEAKER) (test zpqe=482) -8.1 mmol/L -2.0-3.0 PATIENT TEMPERATURE (BEAKER) (test uwku=7207) 36.5 C FIO2 (BEAKER) (test ormw=6939) 40.0 % HEMOGLOBIN AND [id number] 11:27:00 Test Item Value Reference Range Comments HEMOGLOBIN (BEAKER) (test rqbf=534) 9.2 GM/DL 13.7-17.5 HEMATOCRIT (BEAKER) (test rwxd=415) 28.2 % 40.1-51.0 POCT-GLUCOSE [id number] 11:22:00 Test Item Value Reference Range Comments POC-GLUCOSE METER (BEAKER) 240 mg/dL 70-110 TESTED AT [address] (test jcvq=6245) [facility] [id number] RAD, CHEST, 1 VIEW, NON [id number] 10:14:00Reason for exam:-> intubationShould this be performed at the bedside?->YesFINAL REPORT Chest one view INDICATION: Intubation COMPARISON: 07/06/2018 IMPRESSION: Oblique patient positioning limits assessment. ET tube terminates 2.2 cm above the rashmi. Median sternotomy changes are noted. The cardiac silhouette is enlarged. There is pulmonary vascular congestion with interstitial and perihilar opacities suggesting edema. Left perihilar and basilar airspace opacities may reflect atelectasis. Pneumonitis or aspiration cannot be excluded. There is left costophrenic angle blunting. No pneumothorax is seen. Signed: Aakash Howe MDReport Verified Date/Time: 07/07/2018 10:14:17 [facility] Electronicallysigned by: AAKASH HOWE M.D. on 07/07/2018 10:14 AMBASIC METABOLIC [id number] 09:45:00 Test Item Value Reference Range Comments SODIUM (BEAKER) (test 137 meq/L 136-145 pxmw=616) POTASSIUM (BEAKER) (test 4.2 meq/L 3.5-5.1 ycrw=579) CHLORIDE (BEAKER) (test 108 meq/L 98-107 ahod=782) CO2 (BEAKER) (test 16 meq/L 22-29 hgin=484) BLOOD UREA NITROGEN 20 mg/dL 7-21 (BEAKER) (test omgd=847) CREATININE (BEAKER) (test 1.41 mg/dL 0.57-1.25 mupm=536) GLUCOSE RANDOM (BEAKER) 281 mg/dL 70-105 (test vtbt=488) CALCIUM (BEAKER) (test 6.6 mg/dL 8.4-10.2 zpej=658) EGFR (BEAKER) (test 52 mL/min/1.73 sq m ESTIMATED GFR IS NOT wmjt=6408) ACCURATE CREATININE CLEARANCE IN PREDICTING GLOMERULAR FILTRATION RATE. ESTIMATED GFR IS NOT APPLICABLE FOR DIALYSIS PATIENTS. [id number] 09:38:00 Test Item Value Reference Range Comments FIBRINOGEN LEVEL (BEAKER) (test fbql=218) 146 mg/dl 225-434 HEMOGLOBIN AND [id number] 09:19:00 Test Item Value Reference Range Comments HEMOGLOBIN (BEAKER) (test bmbw=695) 7.7 GM/DL 13.7-17.5 HEMATOCRIT (BEAKER) (test qqwl=089) 23.4 % 40.1-51.0 BLOOD GAS, [id number] 09:18:00 Test Item Value Reference Range Comments PH ARTERIAL (BEAKER) (test gixh=446) 7.32 7.35-7.45 PCO2 ARTERIAL (BEAKER) (test tyoj=032) 35 mmHg 35-45 PO2 ARTERIAL (BEAKER) (test ksab=147) 124 mmHg 80-90 O2 SATURATION ARTERIAL (BEAKER) (test rbda=800) 98.4 % 96.0-97.0 HCO3 ARTERIAL (BEAKER) (test iraa=945) 18 mmol/L 21-29 BASE EXCESS ARTERIAL (BEAKER) (test tjaz=734) -8.0 mmol/L -2.0-3.0 PATIENT TEMPERATURE (BEAKER) (test xtzr=0202) 35.0 C FIO2 (BEAKER) (test mpuq=1116) 40.0 % [id number] 08:27:00 Test Item Value Reference Range Comments PARTIAL THROMBOPLASTIN TIME (BEAKER) (test 37.9 seconds 22.5-36.0 xgol=566) PROTHROMBIN [id number] 08:26:00 Test Item Value Reference Range Comments PROTIME (BEAKER) (test axxf=006) 23.5 seconds 11.7-14.7 INR (BEAKER) (test gscv=429) 2.1 <=5.9 RECOMMENDED COUMADIN/WARFARIN INR THERAPY RANGESSTANDARD DOSE: 2.0 - 3.0 Includes: PROPHYLAXIS forvenous thrombosis, systemic embolization; TREATMENT for venous thrombosis and/or pulmonary embolus.HIGH RISK: Target INR is 2.5-3.5 for patients with mechanical heart valves.HEMOGLOBIN AND [id number] 08 :08:00 Test Item Value Reference Range Comments HEMOGLOBIN (BEAKER) (test zekb=281) 7.7 GM/DL 13.7-17.5 HEMATOCRIT (BEAKER) (test tntp=038) 23.3 % 40.1-51.0 BASIC METABOLIC [id number] 06:32:00 Test Item Value Reference Range Comments SODIUM (BEAKER) (test 134 meq/L 136-145 ztvi=617) POTASSIUM (BEAKER) (test 4.9 meq/L 3.5-5.1 fbnl=987) CHLORIDE (BEAKER) (test 101 meq/L 98-107 recz=617) CO2 (BEAKER) (test 26 meq/L 22-29 sdcx=637) BLOOD UREA NITROGEN 21 mg/dL 7-21 (BEAKER) (test ieba=215) CREATININE (BEAKER) (test 1.49 mg/dL 0.57-1.25 lxxq=255) GLUCOSE RANDOM (BEAKER) 195 mg/dL 70-105 (test qhpj=837) CALCIUM (BEAKER) (test 7.4 mg/dL 8.4-10.2 rjir=026) EGFR (BEAKER) (test 49 mL/min/1.73 sq m ESTIMATED GFR IS NOT kmxb=4645) ACCURATE CREATININE CLEARANCE IN PREDICTING GLOMERULAR FILTRATION RATE. ESTIMATED GFR IS NOT APPLICABLE FOR DIALYSIS PATIENTS. Specimen slightly [id number] 06:21:00 Test Item Value Reference Range Comments MAGNESIUM (BEAKER) (test qofa=676) 2.0 mg/dL 1.6-2.6 HEPATIC FUNCTION [id number] 06:21:00 Test Item Value Reference Range Comments TOTAL PROTEIN (BEAKER) (test aqqb=675) 4.7 gm/dL 6.0-8.3 ALBUMIN (BEAKER) (test akax=5587) 2.7 g/dL 3.5-5.0 BILIRUBIN TOTAL (BEAKER) (test cwxv=705) 3.7 mg/dL 0.2-1.2 BILIRUBIN DIRECT (BEAKER) (test qmvh=819) 2.8 mg/dL 0.1-0.5 ALKALINE PHOSPHATASE (BEAKER) (test crnl=344) 145 U/L 40-150 AST (SGOT) (BEAKER) (test hnim=131) 44 U/L 5-34 ALT (SGPT) (BEAKER) (test ydnx=919) 29 U/L 6-55 Specimen slightly ictericLACTIC ACID, VENOUS, WHOLE [id number] 06:16:00 Test Item Value Reference Range Comments LACTATE BLOOD VENOUS (2) (BEAKER) (test 2.2 mmol/L 0.5-2.2 rxrv=1477) Effective 02/25/2016: Units/Reference Range ChangeNew: 0.5-2.2 mmol/L Previous: 5 -20 mg/dLSpecimen slightly ictericHEMOGLOBIN AND [id number] 06:06:00 Test Item Value Reference Range Comments HEMOGLOBIN (BEAKER) (test irxg=387) 10.2 GM/DL 13.7-17.5 HEMATOCRIT (BEAKER) (test bdmc=524) 31.7 % 40.1-51.0 LACTIC ACID, VENOUS, WHOLE [id number] 03:14:00 Test Item Value Reference Range Comments LACTATE BLOOD VENOUS (2) (BEAKER) (test 1.3 mmol/L 0.5-2.2 uelt=4697) Effective 02/25/2016: Units/Reference Range ChangeNew: 0.5-2.2 mmol/L Previous: 5 -20 mg/dLSpecimen slightly ictericHEMOGLOBIN AND [id number] 03:08:00 Test Item Value Reference Range Comments HEMOGLOBIN (BEAKER) (test rowg=176) 11.2 GM/DL 13.7-17.5 HEMATOCRIT (BEAKER) (test fwlq=087) 34.8 % 40.1-51.0 HEMOGLOBIN AND [id number] 00:22:00 Test Item Value Reference Range Comments HEMOGLOBIN (BEAKER) (test cdpj=711) 6.8 GM/DL 13.7-17.5 HEMATOCRIT (BEAKER) (test uinz=703) 21.6 % 40.1-51.0 LACTIC ACID, VENOUS, WHOLE [id number] 23:30:00 Test Item Value Reference Range Comments LACTATE BLOOD VENOUS (2) 1.2 mmol/L 0.5-2.2 Specimen slightly hemolyzed (BEAKER) (test mxsf=1899) Effective 02/25/2016: Units/Reference Range ChangeNew: 0.5-2.2 mmol/L Previous: 5 -20 mg/dLSpecimen moderately [id number] 23:08:00 Test Item Value Reference Range Comments PROCALCITONIN (BEAKER) (test xdvw=3789) 0.48 ng/mL <0.05 SEPSIS RISK (ng/mL)Low: 0.05-0.50Intermediate: 0.51-2.00High: & gt;=2.01RAD, CHEST, 1 VIEW, NON [id number] 23:07:00Reason for exam:->abd painShould this be performed at the bedside?->YesFINAL REPORT History: Abdominal pain Comparison: 07/01/2018 Findings: The lungs are clear. No pleural effusions or pneumothorax. The heart shadow is normal in size. Sternotomy wires are present The thoracic aorta is mildly tortuous. Degenerative changes are present in the spine. Gas-filled structure under the left diaphragm may represent dilated stomach versus dilated splenic flexure. Signed: Sherif Ricci MDReport Verified Date/Time: 07/06/2018 23:07:59 Reading Location: [facility] B1 [id number] Consult Reading Room [id number] 22:48:00 Test Item Value Reference Range Comments LIPASE (BEAKER) (test pzzj=029) > U/L 8-78 Specimen moderately [id number] 22:42:00 Test Item Value Reference Range Comments MAGNESIUM (BEAKER) (test nmfe=171) 1.9 mg/dL 1.6-2.6 COMPREHENSIVE METABOLIC [id number] 22:42:00 Test Item Value Reference Range Comments TOTAL PROTEIN (BEAKER) 6.2 gm/dL 6.0-8.3 (test zciv=474) ALBUMIN (BEAKER) (test 3.4 g/dL 3.5-5.0 qanu=7912) ALKALINE PHOSPHATASE 264 U/L 40-150 (BEAKER) (test wdhh=849) BILIRUBIN TOTAL (BEAKER) 4.9 mg/dL 0.2-1.2 (test tges=791) SODIUM (BEAKER) (test 135 meq/L 136-145 yfhm=655) POTASSIUM (BEAKER) (test 4.3 meq/L 3.5-5.1 ihuf=326) CHLORIDE (BEAKER) (test 97 meq/L 98-107 zlqk=281) CO2 (BEAKER) (test 27 meq/L 22-29 ehzh=789) BLOOD UREA NITROGEN 19 mg/dL 7-21 (BEAKER) (test jqej=445) CREATININE (BEAKER) (test 1.46 mg/dL 0.57-1.25 sbcs=904) GLUCOSE RANDOM (BEAKER) 148 mg/dL 70-105 (test alri=408) CALCIUM (BEAKER) (test 8.7 mg/dL 8.4-10.2 sfag=797) AST (SGOT) (BEAKER) (test 76 U/L 5-34 vsey=149) ALT (SGPT) (BEAKER) (test 46 U/L 6-55 vguf=141) EGFR (BEAKER) (test 50 mL/min/1.73 sq m ESTIMATED GFR IS NOT ktjv=6162) ACCURATE CREATININE CLEARANCE IN PREDICTING GLOMERULAR FILTRATION RATE. ESTIMATED GFR IS NOT APPLICABLE FOR DIALYSIS PATIENTS. Specimen moderately ictericCBC W/PLT COUNT & AUTO [id number] 22: 23:00 Test Item Value Reference Range Comments WHITE BLOOD CELL COUNT (BEAKER) (test bcav=292) 11.6 K/ L 3.5-10.5 RED BLOOD CELL COUNT (BEAKER) (test uddn=192) 4.56 M/ L 4.63-6.08 HEMOGLOBIN (BEAKER) (test gkcl=070) 12.6 GM/DL 13.7-17.5 HEMATOCRIT (BEAKER) (test muzf=732) 39.2 % 40.1-51.0 MEAN CORPUSCULAR VOLUME (BEAKER) (test grwo=800) 86.0 fL 79.0-92.2 MEAN CORPUSCULAR HEMOGLOBIN (BEAKER) (test 27.6 pg 25.7-32.2 xoxo=583) MEAN CORPUSCULAR HEMOGLOBIN CONC (BEAKER) (test 32.1 GM/DL 32.3-36.5 thab=443) RED CELL DISTRIBUTION WIDTH (BEAKER) (test 15.9 % 11.6-14.4 qkpb=746) PLATELET COUNT (BEAKER) (test ilju=702) 251 K/CU MM 150-450 MEAN PLATELET VOLUME (BEAKER) (test cqwp=392) 9.7 fL 9.4-12.4 NUCLEATED RED BLOOD CELLS (BEAKER) (test 0 /100 WBC 0-0 jrrp=111) NEUTROPHILS RELATIVE PERCENT (BEAKER) (test 80 % tsel=447) LYMPHOCYTES RELATIVE PERCENT (BEAKER) (test 10 % yajx=465) MONOCYTES RELATIVE PERCENT (BEAKER) (test 9 % ogsx=032) EOSINOPHILS RELATIVE PERCENT (BEAKER) (test 0 % lsre=095) BASOPHILS RELATIVE PERCENT (BEAKER) (test 0 % ugzk=920) NEUTROPHILS ABSOLUTE COUNT (BEAKER) (test 9.26 K/ L 1.78-5.38 ldsk=205) LYMPHOCYTES ABSOLUTE COUNT (BEAKER) (test 1.19 K/ L 1.32-3.57 jdzf=646) MONOCYTES ABSOLUTE COUNT (BEAKER) (test 1.07 K/ L 0.30-0.82 gjlw=047) EOSINOPHILS ABSOLUTE COUNT (BEAKER) (test 0.03 K/ L 0.04-0.54 orwr=983) BASOPHILS ABSOLUTE COUNT (BEAKER) (test 0.03 K/ L 0.01-0.08 ricc=851) IMMATURE GRANULOCYTES-RELATIVE PERCENT (BEAKER) 0 % 0-1 (test ejcu=4704) [id number] 22:20:00 Test Item Value Reference Range Comments PARTIAL THROMBOPLASTIN TIME (BEAKER) (test 31.2 seconds 22.5-36.0 apgt=820) PROTHROMBIN [id number] 22:19:00 Test Item Value Reference Range Comments PROTIME (BEAKER) (test vxzl=703) 17.0 seconds 11.7-14.7 INR (BEAKER) (test pqlh=624) 1.4 <=5.9 RECOMMENDED COUMADIN/WARFARIN INR THERAPY RANGESSTANDARD DOSE: 2.0 - 3.0 Includes: PROPHYLAXIS forvenous thrombosis, systemic embolization; TREATMENT for venous thrombosis and/or pulmonary embolus.HIGH RISK: Target INR is 2.5-3.5 for patients with mechanical heart valves.POCT-LACTIC ACID, [id number] 22: 15:00 Test Item Value Reference Range Comments POC-LACTIC ACID, VENOUS 1.3 mmol/L 0.9-1.7 TESTED AT [address] ([facility]) (test oprq=9578) [facility] [address] POCT-BLOOD GASES, [id number] 22:15:00 Test Item Value Reference Range Comments TEMP, CELSIUS-POC (BEAKER) 37.0 (test rdwk=1993) FIO2-POC (BEAKER) (test TESTED AT [address] oies=1307) [place] [id number] PH, VENOUS-POC (BEAKER) 7.388 7.320-7.420 (test xuro=8551) PCO2, VENOUS-POC (BEAKER) 52.9 mm Hg 41.0-51.0 (test vqeq=3284) PO2, VENOUS-POC (BEAKER) 31.0 mm Hg 25.0-40.0 (test eehq=3995) SO2, VENOUS-POC (BEAKER) 57.0 % 40.0-70.0 (test mtda=7248) HCO3, VENOUS-POC (BEAKER) 31.9 meq/L 21.0-29.0 (test xido=9998) BASE EXCESS, VENOUS-POC 7.0 meq/L -2.0-3.0 (BEAKER) (test cofh=9578) [id number] 22:15:00 Test Item Value Reference Range Comments POC-SODIUM (BEAKER) (test 136 meq/L 135-148 TESTED AT [address] psen=5121) [place] [id number] 22:15:00 Test Item Value Reference Range Comments POC-POTASSIUM (BEAKER) (test 4.3 meq/L 3.6-5.5 TESTED AT [address] qrbl=2456) [place] [address] [id number] 22:15:00 Test Item Value Reference Range Comments POC-GLUCOSE (BEAKER) (test 147 mg/dL 70-110 TESTED AT [address] zrbp=3215) [place] [address] POCT-CALCIUM [id number] 22:15:00 Test Item Value Reference Range Comments POC-CALCIUM IONIZED (BEAKER) 1.10 mmol/L 1.12-1.27 TESTED AT [address] (test ifml=3477) [place] [address] [id number] 22:15:00 Test Item Value Reference Range Comments POC-HEMATOCRIT (BEAKER) (test 38 % 40-50 TESTED AT [address] ggwj=1987) [place] [address] [id number] 22:15:00 Test Item Value Reference Range Comments POC-HEMOGLOBIN (BEAKER) 12.9 g/dL 13.0-16.8 TESTED AT [address] (test aoat=7317) [place] [address]TESTED AT [place] [address] POCT-GLUCOSE [id number] 21:38:00 Test Item Value Reference Range Comments POC-GLUCOSE METER (BEAKER) 138 mg/dL 70-110 TESTED AT [address] (test ebcl=5055) [place] [id number] POCT-GLUCOSE [id number] 19:35:00 Test Item Value Reference Range Comments POC-GLUCOSE METER (BEAKER) 116 mg/dL 70-110 TESTED AT [address] (test pfua=2751) [place] [address] PROTHROMBIN [id number] 18:18:00 Test Item Value Reference Range Comments PROTIME (BEAKER) (test yjgz=169) 15.5 seconds 11.7-14.7 INR (BEAKER) (test foaz=253) 1.2 <=5.9 RECOMMENDED COUMADIN/WARFARIN INR THERAPY RANGESSTANDARD DOSE: 2.0 - 3.0 Includes: PROPHYLAXIS forvenous thrombosis, systemic embolization; TREATMENT for venous thrombosis and/or pulmonary embolus.HIGH RISK: Target INR is 2.5-3.5 for patients with mechanical heart valves.[id number] 18:18:00 Test Item Value Reference Range Comments PARTIAL THROMBOPLASTIN TIME (BEAKER) (test 36.5 seconds 22.5-36.0 nnlt=477) CBC W/PLT COUNT & AUTO [id number] 18:11:00 Test Item Value Reference Range Comments WHITE BLOOD CELL COUNT (BEAKER) (test oaws=351) 9.6 K/ L 3.5-10.5 RED BLOOD CELL COUNT (BEAKER) (test vduv=025) 6.06 M/ L 4.63-6.08 HEMOGLOBIN (BEAKER) (test kafh=396) 16.4 GM/DL 13.7-17.5 HEMATOCRIT (BEAKER) (test vfqg=512) 51.8 % 40.1-51.0 MEAN CORPUSCULAR VOLUME (BEAKER) (test yukz=684) 85.5 fL 79.0-92.2 MEAN CORPUSCULAR HEMOGLOBIN (BEAKER) (test 27.1 pg 25.7-32.2 ejra=315) MEAN CORPUSCULAR HEMOGLOBIN CONC (BEAKER) (test 31.7 GM/DL 32.3-36.5 npgt=689) RED CELL DISTRIBUTION WIDTH (BEAKER) (test 16.2 % 11.6-14.4 ljlj=169) PLATELET COUNT (BEAKER) (test xbkb=954) 247 K/CU MM 150-450 MEAN PLATELET VOLUME (BEAKER) (test rlkp=284) 10.5 fL 9.4-12.4 NUCLEATED RED BLOOD CELLS (BEAKER) (test 0 /100 WBC 0-0 cbya=825) NEUTROPHILS RELATIVE PERCENT (BEAKER) (test 75 % kcgq=489) LYMPHOCYTES RELATIVE PERCENT (BEAKER) (test 14 % wsee=307) MONOCYTES RELATIVE PERCENT (BEAKER) (test 8 % jcbh=721) EOSINOPHILS RELATIVE PERCENT (BEAKER) (test 3 % ipsm=851) BASOPHILS RELATIVE PERCENT (BEAKER) (test 0 % zgyc=414) NEUTROPHILS ABSOLUTE COUNT (BEAKER) (test 7.19 K/ L 1.78-5.38 xnjx=375) LYMPHOCYTES ABSOLUTE COUNT (BEAKER) (test 1.30 K/ L 1.32-3.57 byss=245) MONOCYTES ABSOLUTE COUNT (BEAKER) (test 0.74 K/ L 0.30-0.82 gzdp=853) EOSINOPHILS ABSOLUTE COUNT (BEAKER) (test 0.24 K/ L 0.04-0.54 hhqu=115) BASOPHILS ABSOLUTE COUNT (BEAKER) (test 0.04 K/ L 0.01-0.08 krbl=805) IMMATURE GRANULOCYTES-RELATIVE PERCENT (BEAKER) 0 % 0-1 (test jspp=0864) [place], [id number] 17:27:00Reason for exam:->cbd stonesFINAL REPORT Fluoroscopy. History: Intraoperative. Findings: Radiologist wasnot present for the exam. Fluoroscopy was not performed by the undersigned. Please see operative/endoscopy report for details. Fluoroscopy Time: 2.5 min.One spot image was saved. IMPRESSION:Intraoperative fluoroscopy. Please see operative report for details. Signed: Steve Hernandez Verified Date /Time: 07/06/2018 17:27:55 Reading Location: [facility] Diagnostic Imaging Reading Room - [place] [id number] Electronically signed by: STEVE HERNANDEZ on 05:27 PMPOCT-GLUCOSE [id number] 12:00:00 Test Item Value Reference Range Comments POC-GLUCOSE METER (BEAKER) 100 mg/dL 70-110 TESTED AT [facility] [address] [facility] (test yxxp=5190) [facility] [address] POCT-GLUCOSE [id number] 08:03:00 Test Item Value Reference Range Comments POC-GLUCOSE METER (BEAKER) 116 mg/dL 70-110 TESTED AT [facility] [address] [facility] (test arwa=0789) [facility] [address] [id number] 07:04:00 Test Item Value Reference Range Comments MAGNESIUM (BEAKER) (test rnfz=390) 2.3 mg/dL 1.6-2.6 BASIC METABOLIC [id number] 07:04:00 Test Item Value Reference Range Comments SODIUM (BEAKER) (test 136 meq/L 136-145 dqsj=754) POTASSIUM (BEAKER) (test 3.9 meq/L 3.5-5.1 aqvt=062) CHLORIDE (BEAKER) (test 96 meq/L 98-107 zrnd=108) CO2 (BEAKER) (test 31 meq/L 22-29 xshg=139) BLOOD UREA NITROGEN 18 mg/dL 7-21 (BEAKER) (test ecdp=196) CREATININE (BEAKER) (test 1.17 mg/dL 0.57-1.25 toci=647) GLUCOSE RANDOM (BEAKER) 132 mg/dL 70-105 (test mulp=792) CALCIUM (BEAKER) (test 9.6 mg/dL 8.4-10.2 annc=594) EGFR (BEAKER) (test 64 mL/min/1.73 sq m ESTIMATED GFR IS NOT jfhv=5244) ACCURATE CREATININE CLEARANCE IN PREDICTING GLOMERULAR FILTRATION RATE. ESTIMATED GFR IS NOT APPLICABLE FOR DIALYSIS PATIENTS. Specimen moderately ictericHEPATIC FUNCTION [id number] 07:04:00 Test Item Value Reference Range Comments TOTAL PROTEIN (BEAKER) (test lsgh=673) 7.2 gm/dL 6.0-8.3 ALBUMIN (BEAKER) (test tmqm=2654) 3.8 g/dL 3.5-5.0 BILIRUBIN TOTAL (BEAKER) (test xgmd=016) 5.9 mg/dL 0.2-1.2 BILIRUBIN DIRECT (BEAKER) (test lkuw=831) 4.0 mg/dL 0.1-0.5 ALKALINE PHOSPHATASE (BEAKER) (test jnuy=753) 317 U/L 40-150 AST (SGOT) (BEAKER) (test tsyv=053) 110 U/L 5-34 ALT (SGPT) (BEAKER) (test dixt=014) 57 U/L 6-55 Specimen moderately [id number] 03:15:00 Test Item Value Reference Range Comments MAGNESIUM (BEAKER) (test 2.5 mg/dL 1.6-2.6 Specimen slightly hemolyzed etqt=004) BASIC METABOLIC [id number] 03:15:00 Test Item Value Reference Range Comments SODIUM (BEAKER) (test 135 meq/L 136-145 xikv=268) POTASSIUM (BEAKER) (test 4.6 meq/L 3.5-5.1 Specimen slightly navn=793) hemolyzed CHLORIDE (BEAKER) (test 95 meq/L 98-107 zvuo=310) CO2 (BEAKER) (test 28 meq/L 22-29 uaad=838) BLOOD UREA NITROGEN 18 mg/dL 7-21 (BEAKER) (test ilvd=801) CREATININE (BEAKER) (test 1.10 mg/dL 0.57-1.25 Specimen slightly qrqi=141) hemolyzed GLUCOSE RANDOM (BEAKER) 150 mg/dL 70-105 (test vjtl=340) CALCIUM (BEAKER) (test 9.6 mg/dL 8.4-10.2 lzxf=206) EGFR (BEAKER) (test 69 mL/min/1.73 sq m ESTIMATED GFR IS NOT qtcb=7390) ACCURATE CREATININE CLEARANCE IN PREDICTING GLOMERULAR FILTRATION RATE. ESTIMATED GFR IS NOT APPLICABLE FOR DIALYSIS PATIENTS. Specimen moderately ictericHEPATIC FUNCTION [id number] 03:15:00 Test Item Value Reference Range Comments TOTAL PROTEIN (BEAKER) (test 7.7 gm/dL 6.0-8.3 Specimen slightly hemolyzed sbdw=278) ALBUMIN (BEAKER) (test 3.9 g/dL 3.5-5.0 Specimen slightly hemolyzed ctei=4749) BILIRUBIN TOTAL (BEAKER) (test 6.0 mg/dL 0.2-1.2 Specimen slightly hemolyzed hqud=613) BILIRUBIN DIRECT (BEAKER) (test 3.6 mg/dL 0.1-0.5 Specimen slightly hemolyzed ehoo=931) ALKALINE PHOSPHATASE (BEAKER) 330 U/L 40-150 (test gxhc=779) AST (SGOT) (BEAKER) (test 110 U/L 5-34 Specimen slightly hemolyzed oeja=331) ALT (SGPT) (BEAKER) (test 55 U/L 6-55 Specimen slightly hemolyzed togk=834) Specimen moderately ictericPOCT-GLUCOSE [id number] 22:02:00 Test Item Value Reference Range Comments POC-GLUCOSE METER (BEAKER) 140 mg/dL 70-110 TESTED AT [address] (test onrg=2153) [facility] [address] POCT-GLUCOSE [id number] 16:27:00 Test Item Value Reference Range Comments POC-GLUCOSE METER (BEAKER) 103 mg/dL 70-110 TESTED AT [address] (test anju=7307) [facility] [address] POCT-GLUCOSE [id number] 11:55:00 Test Item Value Reference Range Comments POC-GLUCOSE METER (BEAKER) 123 mg/dL 70-110 TESTED AT [address] (test gryt=3063) [facility] [address] POCT-GLUCOSE [id number] 08:13:00 Test Item Value Reference Range Comments POC-GLUCOSE METER (BEAKER) 116 mg/dL 70-110 TESTED AT [address] (test gxby=3989) [facility] [address] [id number] 07:53:00 Test Item Value Reference Range Comments MAGNESIUM (BEAKER) (test fnxf=387) 1.9 mg/dL 1.6-2.6 BASIC METABOLIC [id number] 07:53:00 Test Item Value Reference Range Comments SODIUM (BEAKER) (test 141 meq/L 136-145 yaoi=152) POTASSIUM (BEAKER) (test 3.6 meq/L 3.5-5.1 viwg=223) CHLORIDE (BEAKER) (test 98 meq/L 98-107 ctsf=506) CO2 (BEAKER) (test 32 meq/L 22-29 dhqf=111) BLOOD UREA NITROGEN 19 mg/dL 7-21 (BEAKER) (test yjty=973) CREATININE (BEAKER) (test 1.14 mg/dL 0.57-1.25 azim=735) GLUCOSE RANDOM (BEAKER) 101 mg/dL 70-105 (test berp=564) CALCIUM (BEAKER) (test 9.6 mg/dL 8.4-10.2 ukjg=715) EGFR (BEAKER) (test 66 mL/min/1.73 sq m ESTIMATED GFR IS NOT ecqa=8615) ACCURATE CREATININE CLEARANCE IN PREDICTING GLOMERULAR FILTRATION RATE. ESTIMATED GFR IS NOT APPLICABLE FOR DIALYSIS PATIENTS. Specimen slightly ictericHEPATIC FUNCTION [id number] 07:53:00 Test Item Value Reference Range Comments TOTAL PROTEIN (BEAKER) (test mvyw=611) 7.4 gm/dL 6.0-8.3 ALBUMIN (BEAKER) (test mkoq=3086) 3.9 g/dL 3.5-5.0 BILIRUBIN TOTAL (BEAKER) (test imfy=343) 2.1 mg/dL 0.2-1.2 BILIRUBIN DIRECT (BEAKER) (test ouzt=288) 1.1 mg/dL 0.1-0.5 ALKALINE PHOSPHATASE (BEAKER) (test zabe=540) 111 U/L 40-150 AST (SGOT) (BEAKER) (test nqmn=450) 24 U/L 5-34 ALT (SGPT) (BEAKER) (test hovz=677) 12 U/L 6-55 Specimen slightly ictericPOCT-GLUCOSE [id number] 20:53:00 Test Item Value Reference Range Comments POC-GLUCOSE METER (BEAKER) 168 mg/dL 70-110 TESTED AT [facility] [address] [facility] (test kmxn=3797) [facility] [address] [id number] 17:12:00 Test Item Value Reference Range Comments MAGNESIUM (BEAKER) (test eyxs=461) 2.1 mg/dL 1.6-2.6 BASIC METABOLIC [id number] 17:12:00 Test Item Value Reference Range Comments SODIUM (BEAKER) (test 140 meq/L 136-145 huxb=675) POTASSIUM (BEAKER) (test 3.6 meq/L 3.5-5.1 tkib=219) CHLORIDE (BEAKER) (test 96 meq/L 98-107 vegn=393) CO2 (BEAKER) (test 35 meq/L 22-29 vssx=099) BLOOD UREA NITROGEN 22 mg/dL 7-21 (BEAKER) (test owhk=634) CREATININE (BEAKER) (test 1.35 mg/dL 0.57-1.25 eamw=608) GLUCOSE RANDOM (BEAKER) 148 mg/dL 70-105 (test adpv=208) CALCIUM (BEAKER) (test 9.9 mg/dL 8.4-10.2 asrv=502) EGFR (BEAKER) (test 55 mL/min/1.73 sq m ESTIMATED GFR IS NOT jhfe=0256) ACCURATE CREATININE CLEARANCE IN PREDICTING GLOMERULAR FILTRATION RATE. ESTIMATED GFR IS NOT APPLICABLE FOR DIALYSIS PATIENTS. POCT-GLUCOSE [id number] 17:00:00 Test Item Value Reference Range Comments POC-GLUCOSE METER (BEAKER) 138 mg/dL 70-110 TESTED AT [facility] [address] [facility] (test pcfb=3688) [facility] [address] POCT-GLUCOSE [id number] 12:09:00 Test Item Value Reference Range Comments POC-GLUCOSE METER (BEAKER) 111 mg/dL 70-110 TESTED AT [facility] [address] [facility] (test pzin=0709) [facility] [address] POCT-GLUCOSE [id number] 07:30:00 Test Item Value Reference Range Comments POC-GLUCOSE METER (BEAKER) 102 mg/dL 70-110 TESTED AT [address] (test qomd=0299) [facility] [address] U/S, ABDOMINAL, [id number] 07:27:00Please perform with doppler to evaluate for thrombosis Reason for exam:->elevated bilirubin, abd pain Should this be performed at the bedside?->NoFINAL REPORT HISTORY : Elevated bilirubin, abdominal pain COMPARISON : No comparisons available for review COMMENT : Complete ultrasound examination of the abdomen with color Doppler and spectral evaluation of the abdominal vasculature was performed. The liver is normal in size and homogeneous in echo- texture without evidence of a focal mass. The gallbladder contains multiple shadowing echogenic stones. There is no pericholecystic fluid. The gallbladder is nondistended. Thereis no intrahepatic biliary dilatation. The common bile duct is not visualized likely secondary to overlying bowel gas. The visualized portions of the pancreas are within normal limits. The spleen is normal in size and echo-texture measuring 12 cm. The right kidney measures 12.3 cm and the left kidney9.5 cm in maximum size. There is no [...] portal veins. The resistive index of the properhepatic artery is 0.8 with an acceleration time of 0.06 sec. The resistive index of the right hepatic artery is 0.8 and of the left hepatic artery is 0.8. The visualized IVC, hepatic, and splenic veins are patent with appropriate directional flow. IMPRESSION :1. Cholelithiasis without ultrasonographic evidence of acute cholecystitis.2. The common bile duct is not visualized. Further evaluation can be obtained with MRCP or ERCP if there is concern for choledocholithiasis. No intrahepatic biliary dilatation.3. Patent hepatic vasculature with appropriate directional flow. Signed: Steve Hernandez MDReport Verified Date/Time: 07/04/2018 07:27:18 Reading Location: [facility] [id number] Ultrasound Reading Room [id number] 07:12:00 Test Item Value Reference Range Comments MAGNESIUM (BEAKER) (test 1.8 mg/dL 1.6-2.6 Specimen slightly hemolyzed iscc=733) BASIC METABOLIC [id number] 07:12:00 Test Item Value Reference Range Comments SODIUM (BEAKER) (test 140 meq/L 136-145 udbw=478) POTASSIUM (BEAKER) (test 3.7 meq/L 3.5-5.1 Specimen slightly qxxv=137) hemolyzed CHLORIDE (BEAKER) (test 100 meq/L 98-107 tmcv=157) CO2 (BEAKER) (test 29 meq/L 22-29 qnzw=393) BLOOD UREA NITROGEN 22 mg/dL 7-21 (BEAKER) (test neic=256) CREATININE (BEAKER) (test 1.09 mg/dL 0.57-1.25 Specimen slightly miqm=213) hemolyzed GLUCOSE RANDOM (BEAKER) 103 mg/dL 70-105 (test jxnr=309) CALCIUM (BEAKER) (test 9.4 mg/dL 8.4-10.2 neov=288) EGFR (BEAKER) (test 70 mL/min/1.73 sq m ESTIMATED GFR IS NOT uqpw=2295) ACCURATE CREATININE CLEARANCE IN PREDICTING GLOMERULAR FILTRATION RATE. ESTIMATED GFR IS NOT APPLICABLE FOR DIALYSIS PATIENTS. HEPATIC FUNCTION [id number] 07:12:00 Test Item Value Reference Range Comments TOTAL PROTEIN (BEAKER) (test 6.8 gm/dL 6.0-8.3 Specimen slightly hemolyzed zjkv=203) ALBUMIN (BEAKER) (test 3.6 g/dL 3.5-5.0 Specimen slightly hemolyzed gejq=4725) BILIRUBIN TOTAL (BEAKER) (test 1.8 mg/dL 0.2-1.2 Specimen slightly hemolyzed stcp=528) BILIRUBIN DIRECT (BEAKER) (test 0.7 mg/dL 0.1-0.5 Specimen slightly hemolyzed zgul=658) ALKALINE PHOSPHATASE (BEAKER) 100 U/L 40-150 (test asym=088) AST (SGOT) (BEAKER) (test 26 U/L 5-34 Specimen slightly hemolyzed rojj=456) ALT (SGPT) (BEAKER) (test 13 U/L 6-55 Specimen slightly hemolyzed ghkw=926) PROTHROMBIN [id number] 07:11:00 Test Item Value Reference Range Comments PROTIME (BEAKER) (test lthz=326) 16.4 seconds 11.7-14.7 INR (BEAKER) (test jdbs=129) 1.3 <=5.9 RECOMMENDED COUMADIN/WARFARIN INR THERAPY RANGESSTANDARD DOSE: 2.0 - 3.0 Includes: PROPHYLAXIS forvenous thrombosis, systemic embolization; TREATMENT for venous thrombosis and/or pulmonary embolus.HIGH RISK: Target INR is 2.5-3.5 for patients with mechanical heart valves.POCT-GLUCOSE [id number] 20:11:00 Test Item Value Reference Range Comments POC-GLUCOSE METER (BEAKER) 156 mg/dL 70-110 TESTED AT [facility] [address] [facility] (test pcme=5676) [facility] [address] [id number] 17:51:00 Test Item Value Reference Range Comments MAGNESIUM (BEAKER) (test smgf=329) 1.9 mg/dL 1.6-2.6 BASIC METABOLIC [id number] 17:51:00 Test Item Value Reference Range Comments SODIUM (BEAKER) (test 139 meq/L 136-145 gzup=493) POTASSIUM (BEAKER) (test 3.7 meq/L 3.5-5.1 kxnk=702) CHLORIDE (BEAKER) (test 98 meq/L 98-107 gyib=944) CO2 (BEAKER) (test 30 meq/L 22-29 ekdk=713) BLOOD UREA NITROGEN 23 mg/dL 7-21 (BEAKER) (test brhr=266) CREATININE (BEAKER) (test 1.31 mg/dL 0.57-1.25 fezx=907) GLUCOSE RANDOM (BEAKER) 144 mg/dL 70-105 (test xept=855) CALCIUM (BEAKER) (test 10.1 mg/dL 8.4-10.2 orhe=052) EGFR (BEAKER) (test 57 mL/min/1.73 sq m ESTIMATED GFR IS NOT grtv=0813) ACCURATE CREATININE CLEARANCE IN PREDICTING GLOMERULAR FILTRATION RATE. ESTIMATED GFR IS NOT APPLICABLE FOR DIALYSIS PATIENTS. POCT-GLUCOSE [id number] 16:12:00 Test Item Value Reference Range Comments POC-GLUCOSE METER (BEAKER) 89 mg/dL 70-110 TESTED AT [facility] [address] [facility] (test bayv=5274) [facility] [address] U/S, DUPLEX, [id number] 15:18:00Please perform with doppler to evaluate for thrombosis Reason for exam:->elevated bilirubin, abd pain Should this be performed at the bedside?->NoFINAL REPORT HISTORY : Elevated bilirubin, abdominal pain [...] no pericholecystic fluid. The gallbladder is nondistended. Thereis no intrahepatic biliary dilatation. The common bile duct is not visualized likely secondary to overlying bowel gas. The visualized portions of the pancreas are within normal limits. The spleen is normal in size and echo-texture measuring 12 cm. The right kidney measures 12.3 cm and the left kidney9.5 cm in maximum size. There is no [...] portal veins. The resistive index of the properhepatic artery is 0.8 with an acceleration time of 0.06 sec. The resistive index of the right hepatic artery is 0.8 and of the left hepatic artery is 0.8. The visualized IVC, hepatic, and splenic veins are patent with appropriate directional flow. IMPRESSION :1. Cholelithiasis without ultrasonographic evidence of acute cholecystitis.2. The common bile duct is not visualized. Further evaluation can be obtained with MRCP or ERCP if there is concern for choledocholithiasis. No intrahepatic biliary dilatation.3. Patent hepatic vasculature with appropriate directional flow. Signed: Steve Hernandezeport Verified Date/Time: 07/03/2018 15:18:31 Reading Location: [place] [id number] Ultrasound Reading Room POCT-GLUCOSE [id number] 12:46:00 Test Item Value Reference Range Comments POC-GLUCOSE METER (BEAKER) 102 mg/dL 70-110 TESTED AT [facility] [address] [facility] (test gypd=7787) [facility] [address] [id number] 07:10:00 Test Item Value Reference Range Comments PHOSPHORUS (BEAKER) (test exxi=820) 3.7 mg/dL 2.3-4.7 [id number] 07:10:00 Test Item Value Reference Range Comments MAGNESIUM (BEAKER) (test qjjs=769) 1.8 mg/dL 1.6-2.6 BASIC METABOLIC [id number] 07:10:00 Test Item Value Reference Range Comments SODIUM (BEAKER) (test 136 meq/L 136-145 lfwe=988) POTASSIUM (BEAKER) (test 4.2 meq/L 3.5-5.1 neds=827) CHLORIDE (BEAKER) (test 103 meq/L 98-107 ffrx=309) CO2 (BEAKER) (test 24 meq/L 22-29 xclu=434) BLOOD UREA NITROGEN 27 mg/dL 7-21 (BEAKER) (test neyj=112) CREATININE (BEAKER) (test 1.28 mg/dL 0.57-1.25 iadd=391) GLUCOSE RANDOM (BEAKER) 121 mg/dL 70-105 (test chzj=122) CALCIUM (BEAKER) (test 9.5 mg/dL 8.4-10.2 ktmi=963) EGFR (BEAKER) (test 58 mL/min/1.73 sq m ESTIMATED GFR IS NOT efaa=6427) ACCURATE CREATININE CLEARANCE IN PREDICTING GLOMERULAR FILTRATION RATE. ESTIMATED GFR IS NOT APPLICABLE FOR DIALYSIS PATIENTS. HEPATIC FUNCTION [id number] 07:10:00 Test Item Value Reference Range Comments TOTAL PROTEIN (BEAKER) (test fuzg=509) 6.8 gm/dL 6.0-8.3 ALBUMIN (BEAKER) (test perv=1368) 3.6 g/dL 3.5-5.0 BILIRUBIN TOTAL (BEAKER) (test xzzc=583) 1.7 mg/dL 0.2-1.2 BILIRUBIN DIRECT (BEAKER) (test rcko=345) 0.8 mg/dL 0.1-0.5 ALKALINE PHOSPHATASE (BEAKER) (test bevh=076) 98 U/L 40-150 AST (SGOT) (BEAKER) (test ilbo=310) 24 U/L 5-34 ALT (SGPT) (BEAKER) (test ifbf=248) 14 U/L 6-55 POCT-GLUCOSE [id number] 07:02:00 Test Item Value Reference Range Comments POC-GLUCOSE METER (BEAKER) 112 mg/dL 70-110 TESTED AT [address] (test djbl=3542) [place] [id number] POCT-GLUCOSE [id number] 21:51:00 Test Item Value Reference Range Comments POC-GLUCOSE METER (BEAKER) 147 mg/dL 70-110 TESTED AT [address] (test hyja=8878) [place] [address] [id number] 20:05:00 Test Item Value Reference Range Comments MAGNESIUM (BEAKER) (test 2.1 mg/dL 1.6-2.6 Specimen slightly hemolyzed vefw=462) BASIC METABOLIC [id number] 20:05:00 Test Item Value Reference Range Comments SODIUM (BEAKER) (test 136 meq/L 136-145 bwpk=222) POTASSIUM (BEAKER) (test 4.1 meq/L 3.5-5.1 Specimen slightly tuqz=840) hemolyzed CHLORIDE (BEAKER) (test 100 meq/L 98-107 fggw=347) CO2 (BEAKER) (test 25 meq/L 22-29 honv=773) BLOOD UREA NITROGEN 27 mg/dL 7-21 (BEAKER) (test lvfn=438) CREATININE (BEAKER) (test 1.62 mg/dL 0.57-1.25 Specimen slightly zxrn=449) hemolyzed GLUCOSE RANDOM (BEAKER) 110 mg/dL 70-105 (test pkfw=845) CALCIUM (BEAKER) (test 9.6 mg/dL 8.4-10.2 xvgg=176) EGFR (BEAKER) (test 44 mL/min/1.73 sq m ESTIMATED GFR IS NOT slxv=8964) ACCURATE CREATININE CLEARANCE IN PREDICTING GLOMERULAR FILTRATION RATE. ESTIMATED GFR IS NOT APPLICABLE FOR DIALYSIS PATIENTS. POCT-GLUCOSE [id number] 17:05:00 Test Item Value Reference Range Comments POC-GLUCOSE METER (BEAKER) 111 mg/dL 70-110 TESTED AT [address] (test qeva=3759) [place] [address] POCT-GLUCOSE [id number] 11:34:00 Test Item Value Reference Range Comments POC-GLUCOSE METER (BEAKER) 142 mg/dL 70-110 TESTED AT [address] (test glpj=0829) [place] [id number] POCT-GLUCOSE [id number] 07:43:00 Test Item Value Reference Range Comments POC-GLUCOSE METER (BEAKER) 110 mg/dL 70-110 TESTED AT [address] (test zdcy=0550) [place] [id number] 07:13:00 Test Item Value Reference Range Comments PHOSPHORUS (BEAKER) (test nyud=289) 4.3 mg/dL 2.3-4.7 [id number] 07:13:00 Test Item Value Reference Range Comments MAGNESIUM (BEAKER) (test fknk=137) 2.0 mg/dL 1.6-2.6 BASIC METABOLIC [id number] 07:13:00 Test Item Value Reference Range Comments SODIUM (BEAKER) (test 133 meq/L 136-145 ugcz=380) POTASSIUM (BEAKER) (test 4.4 meq/L 3.5-5.1 kfaf=703) CHLORIDE (BEAKER) (test 102 meq/L 98-107 oklw=985) CO2 (BEAKER) (test 20 meq/L 22-29 bmrg=901) BLOOD UREA NITROGEN 28 mg/dL 7-21 (BEAKER) (test ixko=911) CREATININE (BEAKER) (test 1.72 mg/dL 0.57-1.25 sdvs=890) GLUCOSE RANDOM (BEAKER) 116 mg/dL 70-105 (test ybgu=454) CALCIUM (BEAKER) (test 9.5 mg/dL 8.4-10.2 ryjn=490) EGFR (BEAKER) (test 41 mL/min/1.73 sq m ESTIMATED GFR IS NOT otrx=6377) ACCURATE CREATININE CLEARANCE IN PREDICTING GLOMERULAR FILTRATION RATE. ESTIMATED GFR IS NOT APPLICABLE FOR DIALYSIS PATIENTS. HEPATIC FUNCTION [id number] 07:13:00 Test Item Value Reference Range Comments TOTAL PROTEIN (BEAKER) (test jeup=144) 6.9 gm/dL 6.0-8.3 ALBUMIN (BEAKER) (test tnhx=3944) 3.7 g/dL 3.5-5.0 BILIRUBIN TOTAL (BEAKER) (test pypd=240) 1.7 mg/dL 0.2-1.2 BILIRUBIN DIRECT (BEAKER) (test hwmp=039) 0.8 mg/dL 0.1-0.5 ALKALINE PHOSPHATASE (BEAKER) (test cilt=566) 93 U/L 40-150 AST (SGOT) (BEAKER) (test knke=587) 22 U/L 5-34 ALT (SGPT) (BEAKER) (test yzgl=836) 11 U/L 6-55 [id number] 07:13:00 Test Item Value Reference Range Comments LIPASE (BEAKER) (test zlxx=704) 21 U/L 8-78 B-TYPE NATRIURETIC FACTOR (BNP)2018-07-02 07:13:00 Test Item Value Reference Range Comments B-TYPE NATRIURETIC PEPTIDE (BEAKER) (test 689 pg/mL 0-100 bijv=882) POCT-GLUCOSE [id number] 22:15:00 Test Item Value Reference Range Comments POC-GLUCOSE METER (BEAKER) 124 mg/dL 70-110 TESTED AT [facility] [address] [facility] (test jyyb=8723) [facility] [address] RAD, CHEST, 1 VIEW, NON [id number] 18:03:00Reason for exam:->chest painShould this be performed at the bedside?->YesFINAL REPORT AP chest HISTORY: Chest pain COMPARISON: None IMPRESSION:Status post median sternotomy. No acute skeletal findings. Cardiomegaly. Diffuse interstitial edema. Moderate right effusion. No pneumothorax. Signed: Emile Lockharteport Verified Date/Time: 07/01/2018 18:03:03 Reading Location: [facility] B1 [id number] CT Body Reading Room POCT-GLUCOSE [id number] 17:04:00 Test Item Value Reference Range Comments POC-GLUCOSE METER (BEAKER) 146 mg/dL 70-110 TESTED AT [address] (test bjuf=3620) [place] [address] POCT-GLUCOSE [id number] 11:52:00 Test Item Value Reference Range Comments POC-GLUCOSE METER (BEAKER) 163 mg/dL 70-110 TESTED AT [address] (test vhzh=5119) [place] [address] HEMOGLOBIN [id number] 08:13:00 Test Item Value Reference Range Comments HEMOGLOBIN A1C (BEAKER) (test fzdg=782) 7.1 % 4.3-6.1 POCT-GLUCOSE [id number] 08:00:00 Test Item Value Reference Range Comments POC-GLUCOSE METER (BEAKER) 113 mg/dL 70-110 TESTED AT [address] (test jfwy=3686) [place] [address] TROPONIN [id number] 02:30:00 Test Item Value Reference Range Comments TROPONIN I (BEAKER) (test jiwt=143) 0.03 ng/mL 0.00-0.03 Troponin I (TnI) levels must be interpreted [...] failure, acidosis, acute neurological disease, and persistent tachyarrhythmia.BASIC METABOLIC [id number] 02:24:00 Test Item Value Reference Range Comments SODIUM (BEAKER) (test 133 meq/L 136-145 vymb=330) POTASSIUM (BEAKER) (test 4.3 meq/L 3.5-5.1 Specimen slightly brth=093) hemolyzed CHLORIDE (BEAKER) (test 101 meq/L 98-107 ckmf=124) CO2 (BEAKER) (test 20 meq/L 22-29 hmfp=229) BLOOD UREA NITROGEN 19 mg/dL 7-21 (BEAKER) (test frah=332) CREATININE (BEAKER) (test 1.15 mg/dL 0.57-1.25 Specimen slightly aixe=934) hemolyzed GLUCOSE RANDOM (BEAKER) 119 mg/dL 70-105 (test zphx=865) CALCIUM (BEAKER) (test 9.1 mg/dL 8.4-10.2 pmjq=228) EGFR (BEAKER) (test 66 mL/min/1.73 sq m ESTIMATED GFR IS NOT kmxr=6624) ACCURATE CREATININE CLEARANCE IN PREDICTING GLOMERULAR FILTRATION RATE. ESTIMATED GFR IS NOT APPLICABLE FOR DIALYSIS PATIENTS. HEPATIC FUNCTION [id number] 02:24:00 Test Item Value Reference Range Comments TOTAL PROTEIN (BEAKER) (test 7.0 gm/dL 6.0-8.3 Specimen slightly hemolyzed kjhq=576) ALBUMIN (BEAKER) (test 3.7 g/dL 3.5-5.0 Specimen slightly hemolyzed vsep=7597) BILIRUBIN TOTAL (BEAKER) (test 1.8 mg/dL 0.2-1.2 Specimen slightly hemolyzed pdkg=609) BILIRUBIN DIRECT (BEAKER) (test 0.8 mg/dL 0.1-0.5 Specimen slightly hemolyzed zhga=389) ALKALINE PHOSPHATASE (BEAKER) 87 U/L 40-150 (test cvkt=699) AST (SGOT) (BEAKER) (test 18 U/L 5-34 Specimen slightly hemolyzed uhnz=827) ALT (SGPT) (BEAKER) (test 8 U/L 6-55 Specimen slightly hemolyzed bjbh=023) [id number] 02:23:00 Test Item Value Reference Range Comments PHOSPHORUS (BEAKER) (test hadj=777) 4.4 mg/dL 2.3-4.7 [id number] 02:23:00 Test Item Value Reference Range Comments MAGNESIUM (BEAKER) (test bcgb=338) 1.8 mg/dL 1.6-2.6 BASIC METABOLIC [id number] 02:23:00 Test Item Value Reference Range Comments SODIUM (BEAKER) (test 132 meq/L 136-145 giqh=665) POTASSIUM (BEAKER) (test 4.2 meq/L 3.5-5.1 tphk=946) CHLORIDE (BEAKER) (test 100 meq/L 98-107 alxo=795) CO2 (BEAKER) (test 21 meq/L 22-29 lmph=264) BLOOD UREA NITROGEN 19 mg/dL 7-21 (BEAKER) (test wksj=178) CREATININE (BEAKER) (test 1.15 mg/dL 0.57-1.25 cuzo=158) GLUCOSE RANDOM (BEAKER) 118 mg/dL 70-105 (test lxcu=559) CALCIUM (BEAKER) (test 9.1 mg/dL 8.4-10.2 vxel=035) EGFR (BEAKER) (test 66 mL/min/1.73 sq m ESTIMATED GFR IS NOT yrix=4383) ACCURATE CREATININE CLEARANCE IN PREDICTING GLOMERULAR FILTRATION RATE. ESTIMATED GFR IS NOT APPLICABLE FOR DIALYSIS PATIENTS. LIPID [id number] 02:23:00 Test Item Value Reference Range Comments TRIGLYCERIDES (BEAKER) (test xuxm=280) 62 mg/dL CHOLESTEROL (BEAKER) (test bebp=047) 145 mg/dL HDL CHOLESTEROL (BEAKER) (test dqqk=843) 30 mg/dL LDL CHOLESTEROL CALCULATED (BEAKER) (test 103 mg/dL xcuj=930) Triglyceride Reference Range: Low Risk <150 Borderline 150- 199 High Risk 200-499 Very High Risk >=500Cholesterol Reference Range: Low Risk <200 Borderline 200-239 High Risk > 240HDL Cholesterol Reference Range: Low Risk >=60 High Risk <40LDL Cholesterol Reference Range: Optimal <100 Near Optimal 100-129 Borderline 130-159 High 160-189 Very High >=190POCT-GLUCOSE [id number] 23:01:00 Test Item Value Reference Range Comments POC-GLUCOSE METER (BEAKER) 143 mg/dL 70-110 TESTED AT [facility] [address] [facility] (test fxvf=4008) [facility] [address] TSH/FREE T4 IF [id number] 18:47:00 Test Item Value Reference Range Comments THYROID STIMULATING HORMONE (BEAKER) (test 3.50 uIU/mL 0.35-4.94 lewb=397) TROPONIN [id number] 18:35:00 Test Item Value Reference Range Comments TROPONIN I (VANESSAAKER) (test ijni=883) 0.01 ng/mL 0.00-0.03 Troponin I (TnI) levels must be interpreted [...] failure, acidosis, acute neurological disease, and persistent tachyarrhythmia.POCT-GLUCOSE [id number] 18:18:00 Test Item Value Reference Range Comments POC-GLUCOSE METER (BEAKER) 149 mg/dL 70-110 TESTED AT [address] (test wugh=2443) [place] [id number] HEMOGLOBIN AND [id number] 18:08:00 Test Item Value Reference Range Comments HEMOGLOBIN (BEAKER) (test kdbs=141) 15.8 GM/DL 13.7-17.5 HEMATOCRIT (BEAKER) (test dino=093) 49.9 % 40.1-51.0 POCT-GLUCOSE [id number] 15:23:00 Test Item Value Reference Range Comments POC-GLUCOSE METER (BEAKER) 158 mg/dL 70-110 TESTED AT [address] (test aeug=3868) [facility] [address]
[2018-08-12 15:14] LABS: Absolute Lymphocytes (CBC) 1.3 K/uL (0.7-4.9); Absolute Monocytes 0.6 K/uL (0.1-1.3); Absolute Neutrophil 4.3 K/uL (1.8-8.0); Basophils % 1.2 % (0-1.3); Eosinophils % 4.4 % (0-4.4); Hematocrit 31.2 % (39.6-49.0); Lymphocytes % 19.6 % (15.3-44.8); MCH 29.7 pg (27.0-35.0); MCV 88.2 fL (80-100); MPV 7.4 fL (7.6-11.3); Monocytes % 9.5 % (3.3-12.3); RBC Red Blood Cell Count 3.53 M/uL (4.33-5.43)
[2018-08-12 15:17] LABS: Albumin 3.1 g/dL (3.4-5.0); Bilirubin Direct 0.3 mg/dL (0-0.2); Bilirubin Total 0.7 mg/dL (0.2-1.0); Potassium 3.9 mmol/L (3.5-5.1); Protein, Total 7.4 g/dL (6.4-8.2)
[2018-08-12] MEDS ORDERED: ONDANSETRON 4 MG/2 ML VIAL ONE (15:17)
[2018-08-12] MEDS ORDERED: FENTANYL CITR 100 MCG/2 ML ONE (15:17)
--- NOTE | 2018-08-12 16:24 | RAD REPORT ---
EXAM DESCRIPTION: CT - Abdomen Pelvis Wo Contrast - 08/12/2018 3:51 pm CLINICAL HISTORY: Abdominal pain elevated hepatic enzymes COMPARISON: March 2018 TECHNIQUE: Computed axial tomography of the abdomen and pelvis was obtained. IV and oral contrast we re not requested. All CT scans are performed using dose optimization technique as appropriate and may include automated exposure control or mA/KV adjustment according to patient size. FINDINGS: The evaluation of solid organs, vessels and bowel is limited secondary to the lack of con trast administration. Several small nonobstructing left renal calculi are present. 21 millimeter low-density mass is presen t within the left kidney. It is nonspecific without IV contrast but probably represents a cyst. A 12 millimeter low to intermediate density mass extends off of the right kidney. Diverticulum stems from the left posterior aspect of the bladder The appendix is normal. There is no evidence of diverticulitis. Multiple gallstones are present. Air is present within the gallbladder and biliary tree. Metallic cli ps are present within the region of the pancreatic head/duodenum. Minimal stranding is present adjacent to the pancreas. Spleen and adrenals appear unremarkable. A small lipoma is present within the subcutaneous fat of the left lateral abdomen IMPRESSION: Small nonobstructing left renal calculi 12 millimeter low to intermediate density mass extending off of the right kidney. Nonemergent renal u ltrasound is recommended for further evaluation. Metallic clips are present within the region of the pancreatic head/duodenum and may be related to he mostasis for prior bleeding. Cholelithiasis. Air within the biliary tree probably is secondary to distortion of the sphincter of O ddi secondary to the recent surgery. Infection can have this appearance and should be correlated clin ically. Minimal stranding adjacent to the pancreas probably indicating a minimal pancreatitis
--- NOTE | 2018-08-12 16:45 | ER ---
Nurse's Notes [facility] Name: Chicho Weldon Age: 58 yrs Sex: Male : 1960 Arrival Date: 08/12/2018 Time: 13:59 Bed 17 Private MD: Diagnosis: Acute pancreatitis Presentation: 08/12 14:00 Presenting complaint: Patient states: "Stabbing abdominal pain" since yesterday. aj1 Reports LUQ and epigastric pain comes and goes, but states it is severe when it comes. Reports nausea. Denies vomiting, diarrhea. Denies bloody stool, or black tarry stools. Reports history of bleeding ulcers. Transition of care: patient was not received from another setting of care. Onset of symptoms was August 11, 2018. Risk Assessment: Do you want to hurt yourself or someone else? Patient reports no desire to harm self or others. Initial Sepsis Screen: Does the patient meet any 2 criteria? No. Patient's initial sepsis screen is negative. Does the patient have a suspected source of infection? Yes: Acute abdominal pain. Care prior to arrival: None. 14:00 Method Of Arrival: Ambulatory aj1 14:00 Acuity: AMANDA 3 aj1 Triage Assessment: 14:04 General: Appears in no apparent distress. uncomfortable, Behavior is calm, cooperative, aj1 appropriate for age. Pain: Complains of pain in epigastric area and left upper quadrant Pain currently is 2 out of 10 on a pain scale. at worst was 5 out of 10 on a pain scale. Is intermittent. Neuro: Level of Consciousness is awake, alert, obeys commands. Cardiovascular: Patient's skin is warm and dry. Respiratory: Airway is patent Respiratory effort is even, unlabored, Respiratory pattern is regular, symmetrical. GI: Reports upper abdominal pain, nausea, Patient currently denies bloody stool, diarrhea, vomiting. Historical: - Allergies: 14:04 Iodine; aj1 14:04 SEAFOOD; aj1 - PMHx: 14:04 CABG; Colitis; diabetes- resolved; gastric cardiac distress; Hypertension; Kidney aj1 stones; Myocardial infarction; pleurasy; prostate hypertrophy; syncope; vasovagal; - Immunization history:: Flu vaccine is up to date. - Social history:: Smoking status: Patient/guardian denies using tobacco. - Ebola Screening: : Patient denies travel to an Ebola-affected area in the 21 days before illness onset. Screenin:00 Abuse screen: Denies threats or abuse. Nutritional screening: No deficits noted. em Tuberculosis screening: No symptoms or risk factors identified. Fall Risk None identified. Assessment: 14:45 General: Appears in no apparent distress. uncomfortable, Behavior is calm, cooperative. em Pain: Complains of pain in left upper quadrant and epigastric area Pain currently is 2 out of 10 on a pain scale. at worst was 6 out of 10 on a pain scale. Quality of pain is described as sharp, stabbing, Pain began 1 day ago. Neuro: Level of Consciousness is awake, alert, obeys commands, Oriented to person, place, time, situation. Cardiovascular: Denies chest pain, shortness of breath, Capillary refill < 3 seconds Patient's skin is warm and dry. Respiratory: Airway is patent Respiratory effort is even, unlabored, Respiratory pattern is regular, symmetrical. GI: Abdomen is round non-distended, Bowel sounds present X 4 quads. Abd is soft X 4 quads Abdomen is tender to palpation in right upper quadrant and left upper quadrant Patient currently denies diarrhea, nausea, vomiting. : Urine is clear. EENT: No signs and/or symptoms were reported regarding the EENT system. Derm: Skin is intact, Skin is pink, warm \\T\\ dry. Musculoskeletal: Capillary refill < 3 seconds, Range of motion: intact in all extremities. 14:50 General: The previous assessment is accurate, call light remains within reach. ss 15:51 Reassessment: Patient appears in no apparent distress at this time. Patient and/or em family updated on plan of care and expected duration. Pain level reassessed. Patient is alert, oriented x 3, equal unlabored respirations, skin warm/dry/pink. pt wheeled to CT via wheelchair Patient states feeling better. 17:09 Reassessment: Patient appears in no apparent distress at this time. Patient and/or em family updated on plan of care and expected duration. Pain level reassessed. Patient is alert, oriented x 3, equal unlabored respirations, skin warm/dry/pink. Dr. Guzman at bedside. 18:00 Reassessment: Patient appears in no apparent distress at this time. Patient and/or em family updated on plan of care and expected duration. Pain level reassessed. Patient is alert, oriented x 3, equal unlabored respirations, skin warm/dry/pink. 18:47 Reassessment: Patient appears in no apparent distress at this time. Patient and/or em family updated on plan of care and expected duration. Pain level reassessed. Patient is alert, oriented x 3, equal unlabored respirations, skin warm/dry/pink. pending room assignment Patient states feeling better. 19:42 Reassessment: Patient appears in no apparent distress at this time. No changes from ak1 previously documented assessment. Patient and/or family updated on plan of care and expected duration. Pain level reassessed. Patient is alert, oriented x 3, equal unlabored respirations, skin warm/dry/pink. Patient states feeling better. Patient states symptoms have improved. Vital Signs: 14:04 BP 122 / 91; Pulse 72; Resp 20; Temp 97.2; Pulse Ox 100% on R/A; Weight 95.25 kg (R); aj1 Height 5 ft. (152.40 cm); Pain 2/10; 15:00 BP 142 / 92; Pulse 97; Resp 18; Pulse Ox 96% on R/A; em 16:15 BP 130 / 88; Pulse 61; Resp 18; Pulse Ox 99% on R/A; Pain 0/10; em 17:10 BP 151 / 83; Pulse 62; Resp 16; Temp 98.1(O); Pulse Ox 100% on R/A; Pain 1/10; em 19:42 BP 142 / 86; Pulse 67; Resp 20; Temp 98.1; Pulse Ox 99% on R/A; Pain 1/10; ak1 14:04 Body Mass Index 41.01 (95.25 kg, 152.40 cm) aj1 ED Course: 13:59 Patient arrived in ED. tw3 14:03 Triage completed. aj1 14:04 Arm band placed on Patient placed in an exam room. aj1 14:14 Frank Flynn PA is PHCP. jr8 14:14 Michael Bowie MD is Attending Physician. jr8 14:25 Ivan Ochoa LVN is Primary Nurse. em 14:50 Initial lab(s) drawn, by nd, sent to lab. Inserted saline lock: 20 gauge in right em antecubital area, using aseptic technique. Blood collected. 15:00 Patient has correct armband on for positive identification. Placed in gown. Bed in low em position. Call light in reach. Side rails up X2. 15:51 CT completed. Patient moved to CT via wheelchair. Patient moved back from CT. cw1 15:51 CT Abd/Pelvis - Without Cont In Process Unspecified. EDMS 16:44 Edgar Guzman MD is Hospitalizing Provider. jr8 19:37 No provider procedures requiring assistance completed. Patient admitted, IV remains in ak1 place. Administered Medications: 15:15 Drug: Zofran 4 mg Route: IVP; Site: left antecubital; ss 15:40 Follow up: Response: No adverse reaction em 15:17 Drug: fentaNYL (PF) 50 mcg Route: IVP; Site: left antecubital; ss 15:40 Follow up: Response: No adverse reaction; Pain is decreased em 17:04 Drug: NS 0.9% 1000 ml Route: IV; Rate: 100 ml/hr; Site: right antecubital; ss 19:46 Follow up: IV Status: Completed infusion ak1 17:05 Drug: Mefoxin 1 grams Route: IVPB; Infused Over: 30 mins; Site: right antecubital; ss 17:20 Follow up: Response: No adverse reaction; IV Status: Completed infusion em 17:05 Drug: Flagyl 500 mg Volume: 100 ml; Route: IVPB; Rate: 200 ml/hr; Infused Over: 30 ss mins; Site: right antecubital; 18:22 Follow up: Response: No adverse reaction; IV Status: Completed infusion; IV Intake: em 200ml Intake: 18:22 IV: 200ml; Total: 200ml. em Outcome: 16:44 Decision to Hospitalize by Provider. jr8 19:41 Admitted to Med/surg accompanied by tech, via wheelchair, room 211, with chart, Report ak1 called to Julio C MOULTON 19:41 Condition: good 19:41 Instructed on the need for admit. 20:12 Patient left the ED. ak1 Signatures: Dispatcher [employer] EDNara Pickett, RN RN aj1 Ivan Ochoa, CLAIMS INVESTIGATOR CLAIMS INVESTIGATOR em Poly Pastor RN RN ss Woodley, Crystal cw1 Frank Flynn PA PA jr8 Mayte Mak RN RN ak1 Chleita Ceballos tw3
[2018-08-12 16:46] LABS: Urine Blood NEGATIVE (NEG); Urine Glucose NEGATIVE (NEG); Urine Protein NEGATIVE (NEG); Urine Specific Gravity 1.015 (1.005-1.030)
--- NOTE | 2018-08-12 16:46 | EDPHYS ---
Physician Documentation [facility] Name: Chicho Weldon Age: 58 yrs Sex: Male : 1960 Arrival Date: 08/12/2018 Time: 13:59 Bed 17 Private MD: ED Physician Michael Bowie HPI: 08/12 15:44 This 58 yrs old Male presents to ER via Ambulatory with complaints of jr8 Abdominal Pain. 15:44 The patient presents with abdominal pain in the epigastric area, in the upper abdomen. jr8 Onset: The symptoms/episode began/occurred acutely, today. The symptoms do not radiate. Associated signs and symptoms: none. The symptoms are described as stabbing. Modifying factors: The symptoms are alleviated by nothing, the symptoms are aggravated by nothing. Severity of pain: At its worst the pain was moderate in the emergency department the pain is unchanged. The patient has not experienced similar symptoms in the past. The patient has not recently seen a physician. Historical: - Allergies: 14:04 Iodine; aj1 14:04 SEAFOOD; aj1 - PMHx: 14:04 CABG; Colitis; diabetes- resolved; gastric cardiac distress; Hypertension; Kidney aj1 stones; Myocardial infarction; pleurasy; prostate hypertrophy; syncope; vasovagal; - Immunization history:: Flu vaccine is up to date. - Social history:: Smoking status: Patient/guardian denies using tobacco. - Ebola Screening: : Patient denies travel to an Ebola-affected area in the 21 days before illness onset. ROS: 15:44 Eyes: Negative for injury, pain, redness, and discharge, ENT: Negative for injury, jr8 pain, and discharge, Neck: Negative for injury, pain, and swelling, Cardiovascular: Negative for chest pain, palpitations, and edema, Respiratory: Negative for shortness of breath, cough, wheezing, and pleuritic chest pain, Back: Negative for injury and pain, MS/Extremity: Negative for injury and deformity, Skin: Negative for injury, rash, and discoloration, Neuro: Negative for headache, weakness, numbness, tingling, and seizure. 15:44 Abdomen/GI: Positive for abdominal pain, Negative for nausea, vomiting, and diarrhea, abdominal cramps, abdominal distension, anorexia, dysphagia, hematemesis, black/tarry stool, rectal pain, rectal bleeding, bowel incontinence, flatulence. Exam: 15:44 Eyes: Pupils equal round and reactive to light, extra-ocular motions intact. Lids and jr8 lashes normal. Conjunctiva and sclera are non-icteric and not injected. Cornea within normal limits. Periorbital areas with no swelling, redness, or edema. ENT: Nares patent. No nasal discharge, no septal abnormalities noted. Tympanic membranes are normal and external auditory canals are clear. Oropharynx with no redness, swelling, or masses, exudates, or evidence of obstruction, uvula midline. Mucous membranes moist. Neck: Trachea midline, no thyromegaly or masses palpated, and no cervical lymphadenopathy. Supple, full range of motion without nuchal rigidity, or vertebral point tenderness. No Meningismus. Cardiovascular: Regular rate and rhythm with a normal S1 and S2. No gallops, murmurs, or rubs. Normal PMI, no JVD. No pulse deficits. Respiratory: Lungs have equal breath sounds bilaterally, clear to auscultation and percussion. No rales, rhonchi or wheezes noted. No increased work of breathing, no retractions or nasal flaring. Back: No spinal tenderness. No costovertebral tenderness. Full range of motion. Skin: Warm, dry with normal turgor. Normal color with no rashes, no lesions, and no evidence of cellulitis. MS/ Extremity: Pulses equal, no cyanosis. Neurovascular intact. Full, normal range of motion. Neuro: Awake and alert, GCS 15, oriented to person, place, time, and situation. Cranial nerves II-XII grossly intact. Motor strength 5/5 in all extremities. Sensory grossly intact. Cerebellar exam normal. Normal gait. 15:44 Abdomen/GI: Inspection: obese Bowel sounds: active, all quadrants, Palpation: soft, in all quadrants, mild abdominal tenderness, in the epigastric area and left upper quadrant, mass, is not appreciated, rebound tenderness, is not appreciated, voluntary guarding, is not appreciated, involuntary guarding, is not appreciated, no appreciated organomegaly, Indicators: McBurney's point is not tender, Henderson's sign is negative, Rovsing's sign is negative, Liver: tenderness, is not appreciated. Vital Signs: 14:04 BP 122 / 91; Pulse 72; Resp 20; Temp 97.2; Pulse Ox 100% on R/A; Weight 95.25 kg (R); aj1 Height 5 ft. (152.40 cm); Pain 2/10; 15:00 BP 142 / 92; Pulse 97; Resp 18; Pulse Ox 96% on R/A; em 16:15 BP 130 / 88; Pulse 61; Resp 18; Pulse Ox 99% on R/A; Pain 0/10; em 17:10 BP 151 / 83; Pulse 62; Resp 16; Temp 98.1(O); Pulse Ox 100% on R/A; Pain 1/10; em 19:42 BP 142 / 86; Pulse 67; Resp 20; Temp 98.1; Pulse Ox 99% on R/A; Pain 1/10; ak1 14:04 Body Mass Index 41.01 (95.25 kg, 152.40 cm) aj1 MDM: 14:14 Patient medically screened. jr8 16:43 Data reviewed: vital signs, nurses notes, lab test result(s), radiologic studies, CT jr8 scan. Data interpreted: Pulse oximetry: on room air is 99 %. Interpretation: normal. Counseling: I had a detailed discussion with the patient and/or guardian regarding: the historical points, exam findings, and any diagnostic results supporting the discharge/admit diagnosis, lab results, radiology results, the need for further work-up and treatment in the hospital. Physician consultation: Edgar Guzman MD was called at 16:44, was contacted at 16:44, regarding admission, to the medical/surgical unit. consult, patient's condition, and will see patient. 08/12 14:16 Order name: Basic Metabolic Panel; Complete Time: 15:34 jr8 08/12 14:16 Order name: CBC with Diff; Complete Time: 15:34 jr8 08/12 14:16 Order name: Creatinine for Radiology; Complete Time: 15:34 jr8 08/12 14:16 Order name: Hepatic Function; Complete Time: 15:34 jr8 08/12 14:16 Order name: Lipase; Complete Time: 15:34 jr8 08/12 15:17 Order name: Urine Dipstick--Ancillary (enter results); Complete Time: 16:47 ss 08/12 15:34 Order name: CT Abd/Pelvis - Without Cont; Complete Time: 16:25 jr8 08/12 17:02 Order name: CBC with Automated Diff EDMS 08/12 17:02 Order name: CBC with Automated Diff EDMS 08/12 17:02 Order name: CBC with Automated Diff EDMS 08/12 17:02 Order name: Comprehensive Metabolic Panel EDMS 08/12 17:02 Order name: Comprehensive Metabolic Panel EDMS 08/12 17:02 Order name: Comprehensive Metabolic Panel EDMS 08/12 18:07 Order name: Triglycerides Level; Complete Time: 18:17 EDMS 08/12 14:16 Order name: IV Saline Lock; Complete Time: 14:46 [facility] 08/12 14:16 Order name: Labs collected and sent; Complete Time: 14:46 8 08/12 14:16 Order name: Urine Dipstick-Ancillary (obtain specimen); Complete Time: 15:16 8 08/12 17:02 Order name: CONS Physician Consult EDMS 08/12 17:02 Order name: NPO EDMS 08/12 17:03 Order name: Renal Ultrasound-Complete; Complete Time: 18:17 EDMS Administered Medications: 15:15 Drug: Zofran 4 mg Route: IVP; Site: left antecubital; ss 15:40 Follow up: Response: No adverse reaction em 15:17 Drug: fentaNYL (PF) 50 mcg Route: IVP; Site: left antecubital; ss 15:40 Follow up: Response: No adverse reaction; Pain is decreased em 17:04 Drug: NS 0.9% 1000 ml Route: IV; Rate: 100 ml/hr; Site: right antecubital; ss 19:46 Follow up: IV Status: Completed infusion ak1 17:05 Drug: Mefoxin 1 grams Route: IVPB; Infused Over: 30 mins; Site: right antecubital; ss 17:20 Follow up: Response: No adverse reaction; IV Status: Completed infusion em 17:05 Drug: Flagyl 500 mg Volume: 100 ml; Route: IVPB; Rate: 200 ml/hr; Infused Over: 30 ss mins; Site: right antecubital; 18:22 Follow up: Response: No adverse reaction; IV Status: Completed infusion; IV Intake: em 200ml Disposition: 08/13 07:14 Co-signature as Attending Physician, Michael Bowie MD I agree with the assessment and kdr plan of care. Disposition: 08/12/18 16:44 Hospitalization ordered by Edgar Guzman for Inpatient Admission. Preliminary diagnosis is Acute pancreatitis. - Bed requested for Telemetry/MedSurg (Inpatient). - Status is Inpatient Admission. ak1 - Condition is Stable. - Problem is new. - Symptoms have improved. UTI on Admission? No Signatures: Dispatcher [employer] Nara Loaiza, RN RN aj1 Michael Bowie MD MD kdr Martinez, Eric em1 Poly Pastor RN RN Frank Flynn PA PA jr8 Mayte Mak RN RN ak1 Ivan Ochoa [employer] em Corrections: (The following items were deleted from the chart) 08/12 19:10 16:44 Hospitalization Ordered by Edgar Guzman MD for Inpatient Admission. Preliminary em1 diagnosis is Acute pancreatitis. Bed requested for Telemetry/MedSurg (Inpatient). Status is Inpatient Admission. Condition is Stable. Problem is new. Symptoms have improved. UTI on Admission? No. jr8 20:12 19:10 08/12/2018 16:44 Hospitalization Ordered by Edgar Guzman MD for Inpatient ak1 Admission. Preliminary diagnosis is Acute pancreatitis. Bed requested for Telemetry/MedSurg (Inpatient). Status is Inpatient Admission. Condition is Stable. Problem is new. Symptoms have improved. UTI on Admission? No. em1
[2018-08-12] MEDS ORDERED: METRONIDAZOLE 500mg IVPB 500 MG/100 ML BAG IV ONE (16:54)
[2018-08-12] MEDS ORDERED: CEFOXITIN/SWI 1gm 1 GM/10 ML SYR ONE (16:54)
[2018-08-12] MEDS ORDERED: NA CHLORIDE 0.9% 1,000 ML ONE (16:55)
[2018-08-12] MEDS ORDERED: ACETAMINOPHEN 650MG/RECT SUPP PR PRN (16:58)
[2018-08-12] MEDS ORDERED: ONDANSETRON 4 MG/2 ML VIAL IV PRN (16:58)
[2018-08-12] MEDS ORDERED: NA CHLORIDE 0.9% 1,000 ML IV SCH (17:00)
--- NOTE | 2018-08-12 18:07 | RAD REPORT ---
EXAM DESCRIPTION: US - Renal Ultrasound-Complete - 08/12/2018 6:01 pm CLINICAL HISTORY: . Renal mass COMPARISON: August 12, 2018 CT FINDINGS: The right kidney measures cm with a normal echotexture. 1.6 centimeter hypoechoic mass ex tends off right kidney The left kidney measures cm with a normal echotexture. A 3 centimeter cyst present within the left ki dney Hydronephrosis is not seen. No gross abnormality bladder seen IMPRESSION: 1.6 centimeter hypoechoic mass extending off the right kidney probably represents a guero gn complex cyst. Follow up renal ultrasound in 6 months is recommended to assess stability.
[2018-08-12] MEDS ORDERED: INSULIN -REGULAR HUMAN 50 UNIT/0.5 ML ML SQ SCH (21:00)
[2018-08-12] MEDS: MORPHINE 4 MG/ML SYR IV PRN (21:35)
[2018-08-12] MEDS ORDERED: Ringers Lactate 1,000 ML IV SCH (23:45)
--- NOTE | 2018-08-13 01:09 | HP ---
Date of Admission: 08/12/2018 Code Status: Full. Consultants: Dr. Frances, GI. Chief Complaint: Abdominal pain. History Of Present Illness: The patient is a 58-year-old male with past medical history of coronary artery disease status post triple bypass, diabetes, hypertension, history of KS with recent GI bleed on 06/30/2018, which required transfer to [facility] from this facility ER. The patient was found to have some sort of duodenal or gastric ulcer. The patient cannot remember which and had an endoscopy done. The patient has been on Nexium since then, has not had any further bleeding since that point. He does not remember why he had metallic clips placed in his pancreas. The patient today comes in for 2-day history of abdominal pain, which is epigastric radiating towards the left, associated with some nausea, but no vomiting. The patient does report decreased p.o. intake, but no fever, chills, d iarrhea, or blood in the stool. The patient denies any unusual foods or travel outside the country. No ill contacts. The patient therefore came into the ER for further evaluation. Upon arrival, the patient's vital signs were stable. He was afebrile. His workup revealed elevated creatinine level o f 1.6. White blood cell count was normal. Imaging study did show mild pancreatitis and incidental f inding of 12 mm mass off the right kidney. The patient was then referred for admission for mild panc reatitis. When seen in the ER, he was awake, alert, and oriented x3, in some mild distress. Past Medical History: Diabetes mellitus type 2, diet controlled; essential hypertension; history of KS; history of coronary artery disease; history of colitis; IBS; congestive heart failure. Past Surgical History: Coronary bypass graft in 2013. Recent endoscopy for GI bleed. Allergies: FISH, IODINE, SHELLFISH, AND SEAFOOD. Medications: List reviewed. Social History: The patient denies tobacco use. Does drink on rare occasions, not a daily drinker. Denies illicit drug use. Able to perform activities of daily living without difficulty. Family History: Father had renal disease, was on dialysis, also had Alzheimer's as well as heart dis ease. Mother also had heart disease. Maternal grandmother had skin cancer and gallbladder disease w as in the family. Review of Systems: An 11-point system reviewed, negative except as per HPI. Physical Examination: Vital Signs: Blood pressure 122/91, pulse 72, respirations 20, temperature 97.2, O2 100% on room air . General: Awake, alert, oriented x3. Some mild distress due to pain, ill-appearing male, morbidly ob kamron. HEENT: Normocephalic, atraumatic. PERRLA. EOMI. Moist mucous membranes. Oropharynx is with dry m ucous membranes. Oropharynx is clear. Conjunctivae anicteric. Normal dentition. Neck: Supple. No JVD. Trachea midline. CV: S1, S2. Regular rate and rhythm. Peripheral pulses present bilaterally. No murmurs. Respiratory: Moving air well bilaterally. No wheezing or stridor. No use of accessory muscles. Gastrointestinal: Abdomen is soft. Mild tenderness to palpation in the epigastric region in the lef t upper quadrant. No rebound or guarding. No rigidity. No hepatomegaly. Extremities: No clubbing, cyanosis, or edema. No calf tenderness. Neuro: Cranial nerves 2 through 12 intact grossly. No focal neurological deficit. Speech is normal . Strength is 5/5 bilateral upper and lower extremities. Sensation intact to light touch. Skin: The patient has excoriated skin in bilateral lower extremities and some mild chronic venous st asis changes of both extremities. Otherwise, no rashes. Psych: Mood is okay. Affect is flat. Insight and judgment are good. Laboratory Data: WBC 6.6, H and H 10.5 and 31.2, platelets 309, neutrophils 65%. Sodium 140, potass ium 3.9, chloride 104, CO2 28, BUN 20, creatinine 1.6, glucose 147, calcium 8.8, AST 20, ALT 21, tota l bilirubin 0.7, alkaline phosphatase 120, albumin 3.1, and lipase is 912. UA is negative. CT scan of the abdomen and pelvis personally reviewed shows small nonobstructing left renal calculi, 12 mm lo [id number] density mass extending off to the right kidney. Metallic clips present within the region of the pancreatic head. Duodenum with related hemostasis with prior bleeding. Cholelithiasis , air within the biliary tree probably secondary to distortion of the sphincter of Oddi secondary to the recent surgery. Infection could have this appearance and should be correlated clinically. Minim al stranding adjacent to the pancreas probably indicating minimal pancreatitis. Appendix is normal. No evidence of diverticulitis. Assessment: A 58-year-old male with: 1.Acute pancreatitis of unclear etiology, may be related to gallstones or possible elevated triglyce rides. The patient denies history of alcohol, may be related to previous instrumentation. We will s tart on IV fluids. Keep n.p.o. for now. Pain medications. Consult GI. 2.Morbid obesity, BMI 41. 3.Coronary artery disease, cowlitz artery and cowlitz heart without angina, status post coronary arter y bypass graft. 4.Acute kidney injury, likely prerenal azotemia. We will continue with IV fluids and rehydrate. 5.Normocytic normochromic anemia, likely anemia of chronic disease. 6.Essential hypertension, stable. 7.Nephrolithiasis, nonobstructing on the left. 8.Right kidney mass, 12 mm. We will obtain ultrasound for further evaluation, may be cyst versus ma lignant mass. 9.Cholelithiasis. No gallbladder inflammation. 10.Congestive heart failure. Unknown ejection fraction. Last known EF from 2017 is 41%, systolic d ysfunction. 11.Moderate pulmonary hypertension. Plan: Admit the patient to Med-Surg, place as inpatient. We will obtain triglyceride level. We kari l obtain previous records from [facility] to determine nature of endoscopy done at [facility]. We wi ll obtain and verify medications from the patient's pharmacy. The patient unable to recall his home medications. MARIANELA Voice ID: [id number]
[2018-08-13] MEDS: NA CHLORIDE 0.9% 1,000 ML IV SCH ×3 (03:05→10:00)
[2018-08-13] MEDS: INSULIN -REGULAR HUMAN 50 UNIT/0.5 ML ML SQ SCH ×5 (06:00→21:00)
[2018-08-13] MEDS: MORPHINE 4 MG/ML SYR IV PRN ×3 (06:37→22:12)
[2018-08-13 07:14] LABS: Absolute Lymphocytes (CBC) 1.5 K/uL (0.7-4.9); Absolute Monocytes 0.5 K/uL (0.1-1.3); Basophils % 1.4 % (0-1.3); Eosinophils % 4.5 % (0-4.4); Hematocrit 26.3 % (39.6-49.0); Lymphocytes % 24.1 % (15.3-44.8); MCH 29.6 pg (27.0-35.0); MCV 88.1 fL (80-100); MPV 7.2 fL (7.6-11.3); Monocytes % 7.5 % (3.3-12.3); RBC Red Blood Cell Count 2.99 M/uL (4.33-5.43)
[2018-08-13 07:34] LABS: Albumin 2.7 g/dL (3.4-5.0); Bilirubin Total 0.8 mg/dL (0.2-1.0); Magnesium 1.8 mg/dL (1.8-2.4); Phosphorus 3.5 mg/dL (2.5-4.9); Potassium 3.7 mmol/L (3.5-5.1); Protein, Total 6.1 g/dL (6.4-8.2)
[2018-08-13] MEDS: METOPROLOL TAR 25 MG TAB PO SCH ×2 (09:00→22:14)
[2018-08-13] MEDS ORDERED: HOME MED 1 EA UNK (Esomeprazole Magnesium [Esomeprazole Magnesium] 40 MG) PO SCH (09:00)
--- NOTE | 2018-08-13 09:08 | RAD REPORT ---
EXAM DESCRIPTION: RAD - Chest Single View - 08/13/2018 6:45 am CLINICAL HISTORY: CHF, shortness of breath COMPARISON: August 12 TECHNIQUE: AP portable chest image was obtained 0628 hours . FINDINGS: No peripheral mass or consolidation. No significant interstitial or alveolar edema pattern at this time. Heart size is upper normal and stable from earlier examination. Central vasculature is mildly prominent. No measurable pleural effusion and no pneumothorax. No acute bony abnormality seen . No acute aortic findings suspected. IMPRESSION: Stable chest examination. Central vasculature is prominent but not definitive for significant failure or volume overload. Follo w-up can be obtained as warranted.
--- NOTE | 2018-08-13 09:13 | RAD REPORT ---
EXAM DESCRIPTION: RAD - Chest Single View - 08/13/2018 12:33 am CLINICAL HISTORY: CHF, shortness of breath A preliminary report was provided at the time of the study and reviewed prior to final report. COMPARISON: June 30 TECHNIQUE: AP portable chest image was obtained 2355 hour . FINDINGS: No peripheral mass or consolidation. Heart size is upper normal. Pulmonary vasculature is prominent but not outside of normal range for shallow inspiration and body habitus affects on this po rtable examination. Sternotomy wires are in place. No measurable pleural effusion and no pneumothorax . No acute bony abnormality seen. No acute aortic findings suspected. IMPRESSION: No acute cardiopulmonary process. Mild prominence of the vasculature is not clearly outside of normal range. No measurable degree of CH F or volume overload.
[2018-08-13] MEDS ORDERED: LORAZEPAM 0.5 MG TABLET PO ONE (10:00)
[2018-08-13] MEDS: BUMETANIDE 1 MG TABLET PO SCH ×2 (11:13→22:14)
--- NOTE | 2018-08-13 11:28 | RAD REPORT ---
EXAM DESCRIPTION: CT - CTHCSPWOC - 08/13/2018 10:29 am CLINICAL HISTORY: Numbness and tingling developed extremity COMPARISON: None. TECHNIQUE: Axial 5 mm thick images of the head were obtained. Axial 2 mm thick images of the cervic al spine were obtained with sagittal and coronal reconstruction images generated and reviewed. All CT scans are performed using dose optimization technique as appropriate and may include automated exposure control or mA/KV adjustment according to patient size. FINDINGS: No intracranial hemorrhage, mass, edema or acute intracranial finding. No acute cortical based infarc tion seen. No cortical edema or sulcal effacement identified. Ventricles are normal and there is no s ignificant atrophy change appreciated. Patient does have patchy decreased attenuation in the cerebral white matter. This is greater than typically seen at this age. Chronic ischemic change is the usual in etiology. Patient has greater than usual arterial tree calcifications. Basilar artery is tortuous. No extra-axial fluid collections. Mastoid air cells and paranasal sinuses are clear. No globe or orb it abnormality seen. Cervical body height and alignment are normal. C5-6 disc space narrowing is present with endplate spu rring changes. Uncovertebral joint hypertrophy causes foraminal encroachment at C5-6. No fracture or acute bony abnormality. No paraspinal mass or hematoma. IMPRESSION: No hemorrhage, mass or acute intracranial finding. Chronic ischemic change is evident in the cerebral white matter. This is advanced for age but consist ent with the dense arterial tree calcification pattern. Cervical spine degenerative changes are present with C5-6 bilateral bony foraminal encroachment. This is a potential source for left extremity symptoms. No fracture or acute finding.
[2018-08-13] MEDS: GABAPENTIN 300 MG CAP PO SCH ×2 (14:45→22:14)
[2018-08-13] MEDS: ENOXAPARIN 30 MG/0.3 ML SQ SCH (17:48)
--- NOTE | 2018-08-13 19:27 | PN ---
Addendum: Objective: Vital Signs: Temperature 97.9, heart rate 57, blood pressure 133/79, respirations 18, O2 98% on room air. General: Awake, alert, oriented x3. Some mild distress, ill-appearing male, obese, BMI of 32. CV: S1, S2. No murmurs. Peripheral pulses present. Respiratory: Moving air well bilaterally. No wheezing or stridor. Gastrointestinal: Abdomen is soft. Mild tenderness to palpation. No guarding or rigidity. Bowel s ounds positive. Extremities: No clubbing, cyanosis, or edema. Neuro: Nonfocal. Laboratory Data: Sodium 144, potassium 3.7, chloride 109, CO2 of 26, BUN 16, creatinine 1.3, glucose 92, calcium 8.3. WBC 6.4, H and H 8.9 and 26.3, platelets 261, neutrophils 62.5%. CT head and cerv ical spine shows no hemorrhage, mass, or acute intracranial findings, chronic ischemic change is evid ent in the cerebral white matter. This is advanced for age, but consistent with a dense arterial fan e calcification pattern. Cervical spine, degenerative changes are present with C5-C6 bilateral bony foraminal encroachment, potential source of left extremity symptoms, no fracture or acute finding. C hest x-ray shows stable chest. No volume overload. Assessment And Plan: A 58-year-old male with: 1.Acute pancreatitis of unclear etiology, likely related to gallstones, other triglycerides were nor mal. 2.Acute kidney injury, likely prerenal azotemia. Creatinine normalized. We will reduce rate of IV fluids. 3.Morbid obesity, body mass index of 41. 4.Coronary artery disease, elim ira artery and elim ira heart without angina, status post coronary arter y bypass grafting. 5.Normocytic normochromic anemia, likely anemia of chronic disease. We will monitor H and H and tra nsfuse as needed. Current drops likely hemodilutional. 6.Essential hypertension, stable. 7.Nephrolithiasis, nonobstructing on the left. 8.Right kidney mass, 1.6 cm. Renal ultrasound shows a complex cyst. Repeat ultrasound in 6 months. 9.Cholelithiasis without acute cholecystitis. 10.Congestive heart failure, systolic dysfunction, chronic. Chest x-ray does not show any overt vol ume overload. The patient currently being hydrated gently due to pancreatitis and acute kidney injur y. 11.Moderate pulmonary hypertension. 12.Right arm numbness, tingling, and recent changes in speech over the past 3-1/2 to 4 weeks since l eaving the hospital in [facility]. We will obtain head CT scan as well as CT cervical spine to rule ou t radiculopathy. CT does show some advanced for age changes consistent with the patient's history of atherosclerosis, and CT cervical spine does show some foraminal encroachment causing his symptoms of numbness and tingling. We will add gabapentin for symptomatic relief. The patient is encouraged to follow up with Neurology/Neurosurgery as outpatient. /TREE Voice ID: [id number] Report ID: [id number]
[2018-08-13] MEDS: ATORVASTATIN 40 MG TAB PO SCH (22:14)
[2018-08-14] MEDS: MORPHINE 4 MG/ML SYR IV PRN (05:20)
[2018-08-14] MEDS: NA CHLORIDE 0.9% 1,000 ML IV SCH (05:20)
[2018-08-14 05:22] LABS: Absolute Monocytes 0.6 K/uL (0.1-1.3); Absolute Neutrophil 3.6 K/uL (1.8-8.0); Eosinophils % 7.2 % (0-4.4); Hematocrit 28.5 % (39.6-49.0); Lymphocytes % 29.1 % (15.3-44.8); MCH 29.3 pg (27.0-35.0); MCV 87.3 fL (80-100); MPV 7.5 fL (7.6-11.3); Monocytes % 9.2 % (3.3-12.3); RBC Red Blood Cell Count 3.27 M/uL (4.33-5.43)
[2018-08-14 05:43] LABS: Albumin 2.8 g/dL (3.4-5.0); Bilirubin Total 0.8 mg/dL (0.2-1.0); Potassium 3.5 mmol/L (3.5-5.1); Protein, Total 6.4 g/dL (6.4-8.2)
[2018-08-14] MEDS: INSULIN -REGULAR HUMAN 50 UNIT/0.5 ML ML SQ SCH ×4 (07:30→21:00)
[2018-08-14] MEDS: METOPROLOL TAR 25 MG TAB PO SCH ×2 (08:54→21:44)
[2018-08-14] MEDS: ENOXAPARIN 30 MG/0.3 ML SQ SCH (08:55)
[2018-08-14] MEDS: BUMETANIDE 1 MG TABLET PO SCH ×2 (08:55→21:45)
[2018-08-14] MEDS: GABAPENTIN 300 MG CAP PO SCH ×3 (08:55→21:45)
[2018-08-14] MEDS: PANTOPRAZOLE 40MG TABLET PO SCH (10:16)
--- NOTE | 2018-08-14 17:08 | P.CNS ---
Date of Consult: 08/14/18 PC: I was asked to see this 58-year-old male in regards to his cholelithiasis and his recurrent episodes of pancreatitis. HPC: Patient presented emergency room again with severe right upper quadrant abdominal pain. On workup was found have mild pancreatitis. Recently was in the hospital with a similar episodes. Also had a GI bleed which was treated endoscopically. PMH: History of coronary artery disease status post triple bypass, diabetes, hypertension, PSHx: No scars on his abdomen, denies any other surgeries apart SOC: from his endoscopy allergic to iodine fish and shellfish SYS REVIEW: He has otherwise been in good health, does not drink alcohol O/E awake alert stable HEENT: Not Keith Chest: Chest movement equal bilaterally ABD: Soft. Minimal tenderness LOCO: Intact DATA: Has documented gallstones IMPRESSION: Cholelithiasis with episodes of recurrent pancreatitis PLAN: I will take him to the operating room for laparoscopic possible open cholecystectomy with cholangiogram. The risks of this procedure have been discussed. The possibility of bleeding, infection, injury to bile ducts blood vessels and intestines has been described. The possible need for an open and/ or further surgeries and procedures was explained. Recurrent pancreatitis after the procedure was also discussed. He understands and wants us to proceed.
[2018-08-14] MEDS ORDERED: CEFOXITIN SODIUM 1 GM/VIAL IM ONE (17:13)
[2018-08-14] MEDS ORDERED: CEFOXITIN/SWI 1gm 1 GM/10 ML SYR IVP SCH (17:30)
[2018-08-14] MEDS ORDERED: FENTANYL CITR 100 MCG/2 ML ONE (17:33)
[2018-08-14] MEDS ORDERED: GLYCOPYRROLATE 0.2 MG/ML SYR ONE (17:33)
[2018-08-14] MEDS ORDERED: BUPIVACAINE 0.25% PF 10 ML VIAL ONE (17:33)
[2018-08-14] MEDS ORDERED: PROPOFOL 200 MG/20 ML VIAL IV ONE (17:33)
[2018-08-14] MEDS ORDERED: MIDAZOLAM HCL 2 MG/2 ML INJ ONE (17:33)
[2018-08-14] MEDS ORDERED: ROCURONIUM 50 MG/5 ML VIAL IV ONE (17:34)
[2018-08-14] MEDS ORDERED: NEOSTIGMINE 1 MG/ML -5 ML SYRINGE ONE (17:34)
[2018-08-14] MEDS ORDERED: ONDANSETRON HCL 40 MG/20 ML VIAL ONE (17:34)
[2018-08-14] MEDS ORDERED: LIDOCAINE 2% MPF 5 ML VIAL ONE (17:34)
[2018-08-14] MEDS ORDERED: EPHEDRINE SULF 50 MG/10 ML SYR ONE (18:01)
[2018-08-14] MEDS ORDERED: NA CHLORIDE 0.9% 1,000 ML ONE (18:06)
[2018-08-14] MEDS ORDERED: ALBUMIN HUM 5% 250 ML IV ONE (18:08)
[2018-08-14] MEDS ORDERED: Phenylephrine HCl 10 MG/ML 1 ML VIAL ONE (18:20)
--- NOTE | 2018-08-14 18:48 | P.OP ---
Primary procedure: Cholecystitis with cholelithiasis Secondary procedure: The same Anesthesia: General Estimated blood loss: Less than 10 cc Specimen: 1 gallbladder and contents Operative Technique: Patient was brought to the operating room and placed supine on the table. After induction of adequate general anesthesia, the area of the abdomen was prepped with a DuraPrep solution, and he was draped in usual aseptic manner. A subumbilical incision was made. This was brought down through the skin and subcutaneous tissue. The Visiport was used to enter the peritoneal cavity and created pneumoperitoneum to approximately 12 mm of mercury. Under direct vision a 5 mm trocar was placed in the upper midline, and 2 others on the flight lateral side. With the patient placed in reverse Trendelenburg we could visualize right upper quadrant. We could see a distended gallbladder. A grasper was placed on the midbody of the gallbladder and another down by Yandel's pouch. Applying lateral traction we were able to dissect down and expose the cystic duct and artery. We were able to obtain the critical view despite the fact there was a lot of chronically inflamed tissue in the area. A clip was placed between the gallbladder and the cystic duct. The cystic duct was now double clipped and divided. The cystic artery having been identified was clipped and divided in the usual way. A small side branch was also clipped as well. These cystic artery was now divided. The gallbladder was then dissected free from the liver bed, placed into an Endo-Catch, and brought out through the umbilical trocar site. It should be noted that the gallbladder itself was markedly inflamed and show evidence of chronic cholecystitis with a thick scar tissue around it serosal surface. At this point I decided to ensure adequate hemostasis. The irrigating fluid was aspirated from the peritoneal cavity. 2 sutures were placed at the umbilicus to close this umbilical defect. It is felt the patient may have had a small umbilical hernia prior to this surgery as well. At this point the pneumoperitoneum was collapsed, the trocars removed, and the suture tied. Jeffrey were then applied to the skin. At the end of the procedure he was in a good condition when sent to the recovery room. Needle sponge instrument count were correct. No drains were placed. Complications: None Transferred to: Recovery Room Condition: Good
--- NOTE | 2018-08-14 18:49 | P.PN ---
Subjective Date of Service: 08/14/18 Chief Complaint: EDNA/LUQ pain, acute pancreatitis, Lipase 912 to 355 Subjective: Improving (Feels well. Quickly resolving GS pancreatitis with normal lipase now and without abdominal pain. Fried chicken yesterday without recurrence of pancreatitis.) Review of Systems Unremarkable Physical Examination - Vital Signs Temperature: 99.0 F Blood Pressure: 117/62 Pulse: 67 Respirations: 16 Pulse Ox (%): 97 - Physical Exam General: Alert, In no apparent distress, Oriented x3, Cooperative HEENT: Atraumatic, Normocephalic, PERRLA, EOMI Neck: Supple Respiratory: Normal air movement Cardiovascular: Normal pulses Gastrointestinal: Soft and benign, No tenderness, No rebound, No guarding Neurological: Normal speech, Normal strength at 5/5 x4 extr Assessment And Plan - Current Problems (Diagnosis) (1) Gallstone pancreatitis Current Visit: Yes Status: Acute (2) Epigastric abdominal pain Current Visit: Yes Status: Acute (3) LUQ abdominal pain Current Visit: Yes Status: Acute (4) Abnormal serum enzyme level, unspecified Current Visit: Yes Status: Acute - Plan REC: 1) surgery consult for gallstone pancreatitis 2) will monitor
[2018-08-14] MEDS: HYDROMORPHONE HCL 1 MG/ML INJ ONE ×2 (19:05→19:15)
[2018-08-14] MEDS: ATORVASTATIN 40 MG TAB PO SCH (21:45)
--- NOTE | 2018-08-14 21:58 | PN ---
Date of Progress Note: 08/12/2018 Subjective: The patient seen and examined. Chart reviewed and case discussed with Dr. Frances and Dr Lashonda Valles. The patient is feeling better. Otherwise, the pain is significantly better. Review of Systems: Negative except as above. Medications: List reviewed. Physical Examination: Vital Signs: Temperature 98.3, heart rate 66, blood pressure 129/75, respirations 16, O2 97% on room air. General: Awake, alert, oriented x3, not in any acute distress. Obese male. Not ill appearing. CV: S1, S2. No murmurs. Regular rate and rhythm. Peripheral pulses present. Respiratory: Clear to auscultation bilaterally. No wheezing or stridor. Gastrointestinal: Abdomen is soft, nontender, nondistended. Positive bowel sounds. Extremities: No clubbing, cyanosis, or edema. Neurologic: Nonfocal. Laboratory Data: Sodium 141, potassium 3.5, chloride 105, CO2 29, BUN 13, creatinine 1.3, glucose 10 0, calcium 8.5. WBC 6.8, H and H 9.6 and 28.5, platelets 298. Assessment: A 58-year-old male with: 1.Acute pancreatitis, likely gallstone pancreatitis, improving. Tolerating diet. Appreciate Dr. Gloria berry's input. Due to his history of gall stones, the patient will benefit from cholecystectomy recom mended by GI. Dr. Valles has been consulted. We will take patient to the OR in the morning. 2.Acute kidney injury, likely prerenal azotemia, normalized. We will continue to monitor. 3.Morbid obesity. BMI of 41. 4.Cholelithiasis, scheduled for cholecystectomy in a.m. 5.Coronary artery disease, [place] artery, [place] without angina, status post coronary artery b ypass grafting, stable. 6.Normocytic normochromic anemia, likely anemia of chronic disease. Monitor H and H, transfuse as n eeded. 7.Essential hypertension, stable. 8.Nephrolithiasis, nonobstructing on the left. 9.Right kidney mass 1.6 cm, a complex cyst. Repeat ultrasound in 6 months. 10.Congestive heart failure, systolic dysfunction, chronic. Continue sodium and fluid restriction. 11.Moderate pulmonary hypertension. 12.Cervical spondylosis. The patient improving with gabapentin. Plan: I anticipate surgery in the a.m. Likely discharge once cleared by surgery. /TREE Voice ID: [id number] Report ID: [id number]
[2018-08-15] MEDS: MORPHINE 4 MG/ML SYR IV PRN ×3 (00:59→20:53)
[2018-08-15] MEDS: NA CHLORIDE 0.9% 1,000 ML IV SCH ×3 (02:52→20:48)
[2018-08-15] MEDS: INSULIN -REGULAR HUMAN 50 UNIT/0.5 ML ML SQ SCH ×4 (07:12→20:58)
[2018-08-15] MEDS: ENOXAPARIN 30 MG/0.3 ML SQ SCH (08:34)
[2018-08-15] MEDS: GABAPENTIN 300 MG CAP PO SCH ×3 (08:34→20:48)
[2018-08-15] MEDS: METOPROLOL TAR 25 MG TAB PO SCH ×2 (08:34→20:49)
[2018-08-15] MEDS: PANTOPRAZOLE 40MG TABLET PO SCH (08:34)
[2018-08-15] MEDS: BUMETANIDE 1 MG TABLET PO SCH ×2 (10:18→20:48)
--- NOTE | 2018-08-15 16:57 | P.PN ---
Subjective Date of Service: 08/15/18 Chief Complaint: EDNA/LUQ pain, acute pancreatitis, Lipase 912 to 355 Patient seen and examined at bedside. No family at bedside. Chart reviewed and case discussed with nursing staff. Patient reports feeling much better. Tolerating this full liquid/soft diet without any abdominal pain, nausea or vomiting. Review of Systems As listed above Physical Examination - Vital Signs Temperature: 98.2 F Blood Pressure: 139/78 Pulse: 66 Respirations: 10 Pulse Ox (%): 100 - Physical Exam General: Alert, In no apparent distress HEENT: Atraumatic, PERRLA, EOMI Neck: Supple, JVD not distended Respiratory: Clear to auscultation bilaterally, Normal air movement Cardiovascular: Regular rate/rhythm, Normal S1 S2 Gastrointestinal: Normal bowel sounds, No tenderness, No masses, No rebound, No guarding Musculoskeletal: No tenderness Integumentary: No rashes Neurological: Normal speech, Normal tone, Normal affect - Studies Laboratory Tests Laboratory Last Values WBC 6.8 K/uL (4.3-10.9) 08/14/18 04:12 RBC 3.27 M/uL (4.33-5.43) L 08/14/18 04:12 Hgb 9.6 g/dL (13.6-17.9) L 08/14/18 04:12 Hct 28.5 % (39.6-49.0) L 08/14/18 04:12 MCV 87.3 fL (80-100) 08/14/18 04:12 MCH 29.3 pg (27.0-35.0) 08/14/18 04:12 MCHC 33.6 g/dL (32.0-36.0) 08/14/18 04:12 RDW 14.8 % (12.1-15.2) 08/14/18 04:12 Plt Count 298 K/uL (152-406) 08/14/18 04:12 MPV 7.5 fL (7.6-11.3) L 08/14/18 04:12 Neutrophils % 53.5 % (41.7-73.7) 08/14/18 04:12 Lymphocytes % 29.1 % (15.3-44.8) 08/14/18 04:12 Monocytes % 9.2 % (3.3-12.3) 08/14/18 04:12 Eosinophils % 7.2 % (0-4.4) H 08/14/18 04:12 Basophils % 1.0 % (0-1.3) 08/14/18 04:12 Absolute Neutrophils 3.6 K/uL (1.8-8.0) 08/14/18 04:12 Absolute Lymphocytes 2.0 K/uL (0.7-4.9) 08/14/18 04:12 Absolute Monocytes 0.6 K/uL (0.1-1.3) 08/14/18 04:12 Absolute Eosinophils 0.5 K/uL (0-0.5) 08/14/18 04:12 Absolute Basophils 0.1 K/uL (0-0.5) 08/14/18 04:12 Sodium 141 mmol/L (136-145) 08/14/18 04:12 Potassium 3.5 mmol/L (3.5-5.1) 08/14/18 04:12 Chloride 105 mmol/L (98-107) 08/14/18 04:12 Carbon Dioxide 29 mmol/L (21-32) 08/14/18 04:12 BUN 13 mg/dL (7-18) 08/14/18 04:12 Creatinine 1.30 mg/dL (0.55-1.3) 08/14/18 04:12 Estimated GFR 57 mL/min (=/>90) L 08/14/18 04:12 Glucose 100 mg/dL (74-106) 08/14/18 04:12 POC Glucose 181 mg/dl (65-120) H 08/15/18 16:16 Calcium 8.5 mg/dL (8.5-10.1) 08/14/18 04:12 Phosphorus 3.5 mg/dL (2.5-4.9) 08/13/18 06:55 Magnesium 1.8 mg/dL (1.8-2.4) 08/13/18 06:55 Total Bilirubin 0.8 mg/dL (0.2-1.0) 08/14/18 04:12 Direct Bilirubin 0.3 mg/dL (0-0.2) H 08/12/18 14:43 AST 26 U/L (15-37) 08/14/18 04:12 ALT 14 U/L (12-78) 08/14/18 04:12 Alkaline Phosphatase 96 U/L (45-117) 08/14/18 04:12 Serum Total Protein 6.4 g/dL (6.4-8.2) 08/14/18 04:12 Albumin 2.8 g/dL (3.4-5.0) L 08/14/18 04:12 Globulin 3.6 g/dL (2.3-3.5) H 08/14/18 04:12 Albumin/Globulin Ratio 0.8 (1.1-1.8) L 08/14/18 04:12 Triglycerides 144 mg/dL (<150) 08/12/18 14:43 Lipase 349 U/L (73-393) 08/14/18 04:12 Urine pH 7.0 (5.0-7.0) 08/12/18 15:17 Ur Specific [place] 1.015 (1.005-1.030) 08/12/18 15:17 Urine Ketones Negative (NEG) 08/12/18 15:17 Urine Blood Negative (NEG) 08/12/18 15:17 Urine Nitrite Negative (NEG) 08/12/18 15:17 Ur Leukocyte Esterase Negative (NEG) 08/12/18 15:17 Urine Glucose Negative (NEG) 08/12/18 15:17 Urine Total Protein Negative (NEG) 08/12/18 15:17 Medications List Reviewed: Yes Assessment And Plan - Plan - acute pancreatitis, likely gallstone pancreatitis: Improving. Tolerating soft/full liquid diet. I appreciate Dr. christensen and put due to his history of gallstones, patient would benefit from cholecystectomy. General surgery, Dr. Valles has been consulted, recommendations appreciated. - cholelithiasis, status post lap cholecystectomy: Postop day 1. Continue advancing diet as tolerated. - Acute kidney injury, likely prerenal. Resolves. Will continue to monitor -coronary artery disease, is a history of coronary artery bypass grafting: Stable -essential hypertension: Stable. Continue home medications. - morbid obesity, BMI of 41 - Nephrolithiasis, nonobstructing on the left - Right kidney mass 1.6 cm, a complex cyst. Repeat ultrasound in 6 months. - Congestive heart failure, systolic dysfunction, chronic. Continue sodium and fluid restriction. - Moderate pulmonary hypertension. - Cervical spondylosis. The patient improving with gabapentin. Plan: He is status post lap cholecystectomy. Likely discharge tomorrow morning if tolerating breakfast.
--- NOTE | 2018-08-15 17:55 | P.PN ---
Subjective Date of Service: 08/15/18 Chief Complaint: EDNA/LUQ pain, acute pancreatitis, Lipase 912 to 355 Subjective: Improving (s/p lap mirian yesterday, to ICU with hypotension, recovered, now to floor.) Review of Systems 10-point ROS is otherwise unremarkable Gastrointestinal: Abdominal Pain (improved) Physical Examination - Vital Signs Temperature: 98.2 F Blood Pressure: 139/78 Pulse: 66 Respirations: 10 Pulse Ox (%): 100 - Physical Exam General: Alert, In no apparent distress, Oriented x3, Cooperative HEENT: Atraumatic, Normocephalic, PERRLA, EOMI Neck: Supple Cardiovascular: Normal pulses Gastrointestinal: No rebound, Tenderness (mild ) Neurological: Normal speech, Normal strength at 5/5 x4 extr - Studies Medications List Reviewed: Yes Assessment And Plan - Current Problems (Diagnosis) (1) Gallstone pancreatitis Onset Date: 08/15/18 Current Visit: Yes Status: Acute Comment: Improved, s /p lap mirian (2) Epigastric abdominal pain Onset Date: 08/15/18 Current Visit: Yes Status: Acute Comment: Improved. (3) LUQ abdominal pain Onset Date: 08/15/18 Current Visit: Yes Status: Acute Comment: Improved. (4) Abnormal serum enzyme level, unspecified Onset Date: 08/15/18 Current Visit: Yes Status: Acute - Plan REC: 1) diet as per surgery 2) will monitor
[2018-08-15] MEDS: ATORVASTATIN 40 MG TAB PO SCH (20:48)
[2018-08-16] MEDS: MORPHINE 4 MG/ML SYR IV PRN ×2 (03:21→12:11)
[2018-08-16 04:55] VITALS: BMI 30.8
[2018-08-16] MEDS: INSULIN -REGULAR HUMAN 50 UNIT/0.5 ML ML SQ SCH ×2 (07:30→11:30)
[2018-08-16 08:46] VITALS: O2SAT 94
[2018-08-16] MEDS: BUMETANIDE 1 MG TABLET PO SCH (08:53)
[2018-08-16] MEDS: ENOXAPARIN 30 MG/0.3 ML SQ SCH (08:53)
[2018-08-16] MEDS: METOPROLOL TAR 25 MG TAB PO SCH (08:54)
[2018-08-16] MEDS: GABAPENTIN 300 MG CAP PO SCH ×2 (08:54→14:17)
[2018-08-16] MEDS: PANTOPRAZOLE 40MG TABLET PO SCH (08:54)
[2018-08-16 09:12] VITALS: TEMP 98.1
--- NOTE | 2018-08-16 13:46 | P.DS ---
Admission Date: 08/12/18 Discharge Date: 08/16/18 Disposition: ROUTINE DISCHARGE Discharge Condition: GOOD Reason for Admission: EDNA/LUQ pain, acute pancreatitis, Lipase 912 to 355 Consultations: GI, Dr. frances General Surgery, Dr. Valles - Problems (1) Coronary artery disease involving [place] coronary artery of [place] heart Current Visit: Yes Status: Acute (2) Acute kidney injury Onset Date: 08/15/18 Current Visit: Yes Status: Acute (3) Cholelithiasis Onset Date: 08/15/18 Current Visit: Yes Status: Acute (4) Essential hypertension Onset Date: 08/15/18 Current Visit: Yes Status: Acute (5) Gallstone pancreatitis Onset Date: 08/15/18 Current Visit: Yes Status: Acute (6) Normocytic normochromic anemia Onset Date: 08/15/18 Current Visit: Yes Status: Acute Brief History of Present Illness: The patient is a 58-year-old male with past medical history of coronary artery disease status post triple bypass, diabetes, hypertension, history of ME with recent GI bleed on 06/30/2018, which required transfer to [facility] from this facility ER. The patient was found to have some sort of duodenal or gastric ulcer. The patient cannot remember which and had an endoscopy done. The patient has been on Nexium since then, has not had any further bleeding since that point. He does not remember why he had metallic clips placed in his pancreas. The patient today comes in for 2-day history of abdominal pain, which is epigastric radiating towards the left, associated with some nausea, but no vomiting. The patient does report decreased p.o. intake, but no fever, chills, diarrhea, or blood in the stool. The patient denies any unusual foods or travel outside the country. No ill contacts. The patient therefore came into the ER for further evaluation. Upon arrival, the patient's vital signs were stable. He was afebrile. His workup revealed elevated creatinine level of 1.6. White blood cell count was normal. Imaging study did show mild pancreatitis and incidental finding of 12 mm mass off the right kidney. The patient was then referred for admission for mild pancreatitis. When seen in the ER, he was awake, alert, and oriented x3, in some mild distress. Hospital Course: Patient was admitted for acute pancreatitis and cholelithiasis, secondary to gallstones noted on ultrasound. Patient underwent a lap cholecystectomy with Dr. Greene on 08/12/2018. His post surgical course was complicated by hypotension, for which he was transferred to the ICU. After improvement in his blood pressures, he was transferred back to the floor, started on a clear diet which was advanced as he was able to tolerate. His pain was controlled with pain medications. At the time of discharge, he was able to tolerate a soft diet without any major abdominal pain, nausea or vomiting. He also had acute kidney injury on admission, likely pre renal. He was given IV hydration and his creatinine returned to baseline. His Hypertension remains stable except when he was hypotensive post surgery. His home medications were continued and no changes were made to his medications at the time of discharge. Patient has a history of normocytic, normochromic anemia which is likely secondary to chronic disease. We monitored his H&H, remained stable and no need for transfusion at this time. Patient also has history history congestive heart failure, systolic dysfunction which is chronic. No evidence of volume overload throughout the stay. He was continued on his home medications remained stable. There was a right kidney mass approximately 1.7 cm, complex cyst noticed on ultrasound. Repeat ultrasound is recommended in 6 months. Patient also has a history of coronary artery disease, [place] artery, without angina, status post coronary artery bypass grafting. He remained stable throughout his stay from this point of view. He was counseled on lifestyle modifications including diet changes, exercise, alcohol and smoking cessation. Vital Signs/Physical Exam: Temp Pulse Resp BP Pulse Ox 98.1 F 69 18 121/79 95 08/16/18 08:00 08/16/18 08:54 08/16/18 08:00 08/16/18 08:54 08/16/18 08:00 General: Alert, In no apparent distress HEENT: Atraumatic, PERRLA, EOMI Neck: Supple, JVD not distended Respiratory: Clear to auscultation bilaterally, Normal air movement Cardiovascular: Regular rate/rhythm, Normal S1 S2 Gastrointestinal: Normal bowel sounds, Tenderness (Mild tenderness on deep palpation) Musculoskeletal: No tenderness Integumentary: No rashes Neurological: Normal speech, Normal tone, Normal affect Lymphatics: No axilla or inguinal lymphadenopathy Laboratory Data at Discharge: WBC 6.8 K/uL (4.3-10.9) 08/14/18 04:12 Hgb 9.6 g/dL (13.6-17.9) L 08/14/18 04:12 Hct 28.5 % (39.6-49.0) L 08/14/18 04:12 Plt Count 298 K/uL (152-406) 08/14/18 04:12 Sodium 141 mmol/L (136-145) 08/14/18 04:12 Potassium 3.5 mmol/L (3.5-5.1) 08/14/18 04:12 BUN 13 mg/dL (7-18) 08/14/18 04:12 Creatinine 1.30 mg/dL (0.55-1.3) 08/14/18 04:12 Glucose 100 mg/dL (74-106) 08/14/18 04:12 Phosphorus 3.5 mg/dL (2.5-4.9) 08/13/18 06:55 Magnesium 1.8 mg/dL (1.8-2.4) 08/13/18 06:55 Total Bilirubin 0.8 mg/dL (0.2-1.0) 08/14/18 04:12 AST 26 U/L (15-37) 08/14/18 04:12 ALT 14 U/L (12-78) 08/14/18 04:12 Alkaline Phosphatase 96 U/L (45-117) 08/14/18 04:12 Triglycerides 144 mg/dL (<150) 08/12/18 14:43 Lipase 349 U/L (73-393) 08/14/18 04:12 Home Medications: Atorvastatin Calcium 40 mg PO BEDTIME 08/12/18 Bumetanide 1 mg PO BID 08/12/18 Esomeprazole Magnesium 40 mg PO BID 08/12/18 Losartan Potassium 25 mg PO DAILY 08/12/18 Metoprolol Tartrate 25 mg PO BID 08/12/18 Spironolactone 50 mg PO DAILY 08/12/18 Tramadol HCl [Ultram] 50 mg PO Q6HP PRN #10 tablet 08/16/18 New Medications: Tramadol HCl [Ultram] 50 mg PO Q6HP PRN #10 tablet PRN Reason: Pain Patient Discharge Instructions: Please follow up with primary care physician in 1 week. Please follow up with GI in 1 week. Diet: Soft, advance as tolerated Activity: Ad stephon Followup: Edwin Frances MD [ASSOCIATE-ACTIVE - CAN ADMIT] - Time spent managing pt's care (in minutes): 50
[2018-08-16 14:12] VITALS: BP 119/72
== END 2018-08-16 15:30 | disposition home or self-care (01) | DRG 418 ==
LOC: ER 13:56 → ERHOLD 16:46 → 2ND 19:44 → 3RD-ICU 08-14 19:25 → 2ND 08-15 13:25
PROVIDERS: ADMIT Family Medicine; ATTEND Family Medicine
PROC: 0FT44ZZ Resection of Gallbladder, Percutaneous Endoscopic Approach (ICD-10-PCS; principal; 2018-08-14 18:15)
DX: K80.10 Calculus of gallbladder with chronic cholecystitis without obstruction (principal); Z68.41 Body mass index [BMI] 40.0-44.9, adult; N17.9 Acute kidney failure, unspecified; I50.22 Chronic systolic (congestive) heart failure; I25.10 Atherosclerotic heart disease of native coronary artery without angina pectoris; Z95.1 Presence of aortocoronary bypass graft; I25.2 Old myocardial infarction; E11.9 Type 2 diabetes mellitus without complications; E66.01 Morbid (severe) obesity due to excess calories; N20.0 Calculus of kidney; I11.0 Hypertensive heart disease with heart failure; I27.20 Pulmonary hypertension, unspecified; M47.892 Other spondylosis, cervical region
CPT/HCPCS: 36415; 70450; 71045; 72125; 74176; 76770; 80048; 80053; 80076; 81003; 82962; 83690; 83735; 84100; 84478; 85025; 88304; 94760; 99285; J1170; J1650; J2250; J2370; J2405; J2710; J3010; J7030; P9045

== ENCOUNTER 2018-09-20 16:28 | Emergency (ER) | payer OTHER, SELFPAY ==
--- OUTSIDE RECORDS SUMMARY | 2018-09-20 16:37 | XMS REPORT ---
:1960 [facility] Address [address] [place] [id number] Care Team Providers Name Role Phone SHAYNA [...] Value Reference Range Comments HEMOGLOBIN (BEAKER) (test hmun=575) 9.4 GM/DL 13.7-17.5 HEMATOCRIT (BEAKER) (test hvih=370) 29.2 % 40.1-51.0 POCT-GLUCOSE [id number] 12:50:00 Test Item Value Reference Range Comments POC-GLUCOSE METER (BEAKER) 188 mg/dL 70-110 TESTED AT [facility] [address] [facility] (test cytl=9610) [facility] [address] BASIC METABOLIC [id number] 10:11:00 Test Item Value Reference Range Comments SODIUM (BEAKER) (test 136 meq/L 136-145 shsa=490) POTASSIUM (BEAKER) (test 3.8 meq/L 3.5-5.1 mxju=852) CHLORIDE (BEAKER) (test 98 meq/L 98-107 zkio=825) CO2 (BEAKER) (test 30 meq/L 22-29 sklf=452) BLOOD UREA NITROGEN 18 mg/dL 7-21 (BEAKER) (test vvud=751) CREATININE (BEAKER) (test 1.79 mg/dL 0.57-1.25 bywh=039) GLUCOSE RANDOM (BEAKER) 125 mg/dL 70-105 (test lsab=190) CALCIUM (BEAKER) (test 9.1 mg/dL 8.4-10.2 mqxf=558) EGFR (BEAKER) (test 39 mL/min/1.73 sq m ESTIMATED GFR IS NOT puil=5832) ACCURATE CREATININE CLEARANCE IN PREDICTING GLOMERULAR FILTRATION RATE. ESTIMATED GFR IS NOT APPLICABLE FOR DIALYSIS PATIENTS. Specimen slightly ictericPOCT-GLUCOSE [id number] 09:55:00 Test Item Value Reference Range Comments POC-GLUCOSE METER (BEAKER) 149 mg/dL 70-110 TESTED AT [facility] [address] (test zkrm=9031) [place] [address] PROTHROMBIN [id number] 05:39:00 Test Item Value Reference Range Comments PROTIME (BEAKER) (test artv=037) 15.8 seconds 11.7-14.7 INR (BEAKER) (test hpkt=108) 1.3 <=5.9 RECOMMENDED COUMADIN/WARFARIN INR THERAPY RANGESSTANDARD DOSE: 2.0 - 3.0 Includes: PROPHYLAXIS forvenous thrombosis, systemic embolization; TREATMENT for venous thrombosis and/or pulmonary embolus.HIGH RISK: Target INR is 2.5-3.5 for patients with mechanical heart valves.[id number] 05:31:00 Test Item Value Reference Range Comments MAGNESIUM (BEAKER) (test ptql=334) 1.5 mg/dL 1.6-2.6 HEPATIC FUNCTION [id number] 05:31:00 Test Item Value Reference Range Comments TOTAL PROTEIN (BEAKER) (test sbjm=806) 5.7 gm/dL 6.0-8.3 ALBUMIN (BEAKER) (test eouo=2960) 3.0 g/dL 3.5-5.0 BILIRUBIN TOTAL (BEAKER) (test agnb=488) 1.7 mg/dL 0.2-1.2 BILIRUBIN DIRECT (BEAKER) (test pyln=413) 1.1 mg/dL 0.1-0.5 ALKALINE PHOSPHATASE (BEAKER) (test nfks=715) 122 U/L 40-150 AST (SGOT) (BEAKER) (test ckes=333) 29 U/L 5-34 ALT (SGPT) (BEAKER) (test dftn=610) 23 U/L 6-55 CBC W/PLT COUNT & AUTO [id number] 05:15:00 Test Item Value Reference Range Comments WHITE BLOOD CELL COUNT (BEAKER) (test suvh=980) 10.5 K/ L 3.5-10.5 RED BLOOD CELL COUNT (BEAKER) (test aczx=426) 2.79 M/ L 4.63-6.08 HEMOGLOBIN (BEAKER) (test huvn=220) 8.4 GM/DL 13.7-17.5 HEMATOCRIT (BEAKER) (test impe=039) 26.1 % 40.1-51.0 MEAN CORPUSCULAR VOLUME (BEAKER) (test ijna=871) 93.5 fL 79.0-92.2 MEAN CORPUSCULAR HEMOGLOBIN (BEAKER) (test 30.1 pg 25.7-32.2 jnvo=817) MEAN CORPUSCULAR HEMOGLOBIN CONC (BEAKER) (test 32.2 GM/DL 32.3-36.5 xlzt=746) RED CELL DISTRIBUTION WIDTH (BEAKER) (test 16.0 % 11.6-14.4 wota=273) PLATELET COUNT (BEAKER) (test suiv=795) 257 K/CU MM 150-450 MEAN PLATELET VOLUME (BEAKER) (test zzgo=833) 9.7 fL 9.4-12.4 NUCLEATED RED BLOOD CELLS (BEAKER) (test 0 /100 WBC 0-0 apnq=311) NEUTROPHILS RELATIVE PERCENT (BEAKER) (test 67 % rjlk=043) LYMPHOCYTES RELATIVE PERCENT (BEAKER) (test 12 % jqvw=857) MONOCYTES RELATIVE PERCENT (BEAKER) (test 14 % skoq=232) EOSINOPHILS RELATIVE PERCENT (BEAKER) (test 6 % cxor=477) BASOPHILS RELATIVE PERCENT (BEAKER) (test 1 % yflw=180) NEUTROPHILS ABSOLUTE COUNT (BEAKER) (test 7.10 K/ L 1.78-5.38 txxa=303) LYMPHOCYTES ABSOLUTE COUNT (BEAKER) (test 1.29 K/ L 1.32-3.57 xlzq=404) MONOCYTES ABSOLUTE COUNT (BEAKER) (test 1.42 K/ L 0.30-0.82 breo=261) EOSINOPHILS ABSOLUTE COUNT (BEAKER) (test 0.61 K/ L 0.04-0.54 kdny=899) BASOPHILS ABSOLUTE COUNT (BEAKER) (test 0.05 K/ L 0.01-0.08 vcep=896) IMMATURE GRANULOCYTES-RELATIVE PERCENT (BEAKER) 1 % 0-1 (test rxld=2749) POCT-GLUCOSE [id number] 21:20:00 Test Item Value Reference Range Comments POC-GLUCOSE METER (BEAKER) 145 mg/dL 70-110 TESTED AT [facility] [address] [facility] (test jdes=4990) [facility] [address] POCT-GLUCOSE [id number] 18:26:00 Test Item Value Reference Range Comments POC-GLUCOSE METER (BEAKER) 145 mg/dL 70-110 TESTED AT [facility] [address] [facility] (test vmnz=2862) [facility] [address] HEMOGLOBIN AND [id number] 18:06:00 Test Item Value Reference Range Comments HEMOGLOBIN (BEAKER) (test liha=928) 9.2 GM/DL 13.7-17.5 HEMATOCRIT (BEAKER) (test bhzf=353) 28.3 % 40.1-51.0 CBC W/PLT COUNT & AUTO [id number] 13:13:00 Test Item Value Reference Range Comments WHITE BLOOD CELL COUNT (BEAKER) (test xwvf=592) 13.1 K/ L 3.5-10.5 RED BLOOD CELL COUNT (BEAKER) (test qxkj=181) 2.78 M/ L 4.63-6.08 HEMOGLOBIN (BEAKER) (test nlqv=963) 8.5 GM/DL 13.7-17.5 HEMATOCRIT (BEAKER) (test mjhh=194) 26.1 % 40.1-51.0 MEAN CORPUSCULAR VOLUME (BEAKER) (test eapk=873) 93.9 fL 79.0-92.2 MEAN CORPUSCULAR HEMOGLOBIN (BEAKER) (test 30.6 pg 25.7-32.2 phlq=100) MEAN CORPUSCULAR HEMOGLOBIN CONC (BEAKER) (test 32.6 GM/DL 32.3-36.5 ejbk=756) RED CELL DISTRIBUTION WIDTH (BEAKER) (test 16.1 % 11.6-14.4 xttr=558) PLATELET COUNT (BEAKER) (test burq=250) 257 K/CU MM 150-450 MEAN PLATELET VOLUME (BEAKER) (test clos=045) 9.8 fL 9.4-12.4 NUCLEATED RED BLOOD CELLS (BEAKER) (test 0 /100 WBC 0-0 yuhz=188) (MANUAL DIFFERENTIAL)2018-07-23 13:13:00 Test Item Value Reference Range Comments NEUTROPHILS - REL (DIFF) (BEAKER) (test 85 % tszm=4896) LYMPHOCYTES - REL (DIFF) (BEAKER) (test 9 % uqev=9158) MONOCYTES - REL (DIFF) (BEAKER) (test useh=6351) 5 % EOSINOPHILS - REL (DIFF) (BEAKER) (test 1 % pbyu=4324) BASOPHILS - REL (DIFF) (BEAKER) (test ileo=2080) 0 % NEUTROPHILS - ABS (DIFF) (BEAKER) (test 11.14 K/ L 1.80-8.00 dwhz=5542) LYMPHOCYTES - ABS (DIFF) (BEAKER) (test 1.18 K/ L 1.48-4.50 koys=1123) MONOCYTES - ABS (DIFF) (BEAKER) (test cnuw=5474) 0.66 K/ L 0.00-1.30 EOSINOPHILS - ABS (DIFF) (BEAKER) (test 0.13 K/ L 0.00-0.50 gbzh=9049) BASOPHILS - ABS (DIFF) (BEAKER) (test gaaz=1545) 0.00 K/ L 0.00-0.20 TOTAL COUNTED (BEAKER) (test atuo=0864) 100 WBC MORPHOLOGY (BEAKER) (test tlwb=493) Normal PLT MORPHOLOGY (BEAKER) (test fjow=874) Normal ANISOCYTOSIS (BEAKER) (test ehmr=548) 1+ few MICROCYTES (BEAKER) (test jtzd=132) 1+ few POCT-GLUCOSE [id number] 12:54:00 Test Item Value Reference Range Comments POC-GLUCOSE METER (BEAKER) 146 mg/dL 70-110 TESTED AT [address] (test jedf=3939) [place] [address] POCT-GLUCOSE [id number] 09:05:00 Test Item Value Reference Range Comments POC-GLUCOSE METER (BEAKER) 143 mg/dL 70-110 TESTED AT [address] (test czas=8983) [place] [address] [id number] 07:26:00 Test Item Value Reference Range Comments MAGNESIUM (BEAKER) (test xjdv=522) 1.8 mg/dL 1.6-2.6 BASIC METABOLIC [id number] 07:26:00 Test Item Value Reference Range Comments SODIUM (BEAKER) (test 139 meq/L 136-145 srsk=641) POTASSIUM (BEAKER) (test 3.4 meq/L 3.5-5.1 tjoi=880) CHLORIDE (BEAKER) (test 101 meq/L 98-107 wqmc=705) CO2 (BEAKER) (test 29 meq/L 22-29 zjlt=608) BLOOD UREA NITROGEN 16 mg/dL 7-21 (BEAKER) (test fklo=553) CREATININE (BEAKER) (test 1.65 mg/dL 0.57-1.25 fbrv=963) GLUCOSE RANDOM (BEAKER) 113 mg/dL 70-105 (test vwmx=812) CALCIUM (BEAKER) (test 8.4 mg/dL 8.4-10.2 smwd=920) EGFR (BEAKER) (test 43 mL/min/1.73 sq m ESTIMATED GFR IS NOT mzhj=2850) ACCURATE CREATININE CLEARANCE IN PREDICTING GLOMERULAR FILTRATION RATE. ESTIMATED GFR IS NOT APPLICABLE FOR DIALYSIS PATIENTS. HEPATIC FUNCTION [id number] 07:26:00 Test Item Value Reference Range Comments TOTAL PROTEIN (BEAKER) (test eytn=301) 5.1 gm/dL 6.0-8.3 ALBUMIN (BEAKER) (test mejo=0562) 2.7 g/dL 3.5-5.0 BILIRUBIN TOTAL (BEAKER) (test kwog=391) 1.6 mg/dL 0.2-1.2 BILIRUBIN DIRECT (BEAKER) (test ytli=742) 0.9 mg/dL 0.1-0.5 ALKALINE PHOSPHATASE (BEAKER) (test rvcr=024) 114 U/L 40-150 AST (SGOT) (BEAKER) (test iefb=849) 30 U/L 5-34 ALT (SGPT) (BEAKER) (test xssm=701) 25 U/L 6-55 CALCIUM, [id number] 07:09:00 Test Item Value Reference Range Comments CALCIUM IONIZED (BEAKER) (test tiud=125) 1.08 mmol/L 1.12-1.27 PH, BLOOD (BEAKER) (test yuoo=2748) 7.52 PROTHROMBIN [id number] 07:07:00 Test Item Value Reference Range Comments PROTIME (BEAKER) (test fpmw=594) 14.9 seconds 11.7-14.7 INR (BEAKER) (test lleh=195) 1.2 <=5.9 RECOMMENDED COUMADIN/WARFARIN INR THERAPY RANGESSTANDARD DOSE: 2.0 - 3.0 Includes: PROPHYLAXIS forvenous thrombosis, systemic embolization; TREATMENT for venous thrombosis and/or pulmonary embolus.HIGH RISK: Target INR is 2.5-3.5 for patients with mechanical heart valves.POCT-GLUCOSE [id number] 21:30:00 Test Item Value Reference Range Comments POC-GLUCOSE METER (BEAKER) 133 mg/dL 70-110 TESTED AT [address] (test asoh=3759) [place] [address] POCT-GLUCOSE [id number] 17:52:00 Test Item Value Reference Range Comments POC-GLUCOSE METER (BEAKER) 270 mg/dL 70-110 TESTED AT [address] (test oyye=6177) [place] [address] HEMOGLOBIN AND [id number] 16:27:00 Test Item Value Reference Range Comments HEMOGLOBIN (BEAKER) (test nmmb=190) 8.9 GM/DL 13.7-17.5 HEMATOCRIT (BEAKER) (test bszn=466) 27.7 % 40.1-51.0 POCT-GLUCOSE [id number] 08:55:00 Test Item Value Reference Range Comments POC-GLUCOSE METER (BEAKER) 132 mg/dL 70-110 TESTED AT [address] (test wizu=4859) [place] [address] POCT-GLUCOSE [id number] 08:49:00 Test Item Value Reference Range Comments POC-GLUCOSE METER (BEAKER) 131 mg/dL 70-110 TESTED AT [address] (test onlh=3264) [place] [address] [id number] 04:20:00 Test Item Value Reference Range Comments MAGNESIUM (BEAKER) (test zbzp=501) 1.7 mg/dL 1.6-2.6 BASIC METABOLIC [id number] 04:20:00 Test Item Value Reference Range Comments SODIUM (BEAKER) (test 141 meq/L 136-145 epkp=830) POTASSIUM (BEAKER) (test 3.4 meq/L 3.5-5.1 bkdy=829) CHLORIDE (BEAKER) (test 103 meq/L 98-107 ytem=302) CO2 (BEAKER) (test 28 meq/L 22-29 bgtb=705) BLOOD UREA NITROGEN 17 mg/dL 7-21 (BEAKER) (test vzfm=702) CREATININE (BEAKER) (test 1.76 mg/dL 0.57-1.25 okzq=439) GLUCOSE RANDOM (BEAKER) 111 mg/dL 70-105 (test tloh=526) CALCIUM (BEAKER) (test 8.9 mg/dL 8.4-10.2 pnnl=404) EGFR (BEAKER) (test 40 mL/min/1.73 sq m ESTIMATED GFR IS NOT udru=7235) ACCURATE CREATININE CLEARANCE IN PREDICTING GLOMERULAR FILTRATION RATE. ESTIMATED GFR IS NOT APPLICABLE FOR DIALYSIS PATIENTS. HEPATIC FUNCTION [id number] 04:20:00 Test Item Value Reference Range Comments TOTAL PROTEIN (BEAKER) (test aapt=449) 5.7 gm/dL 6.0-8.3 ALBUMIN (BEAKER) (test acik=6605) 3.1 g/dL 3.5-5.0 BILIRUBIN TOTAL (BEAKER) (test zsol=489) 1.6 mg/dL 0.2-1.2 BILIRUBIN DIRECT (BEAKER) (test sxps=888) 1.0 mg/dL 0.1-0.5 ALKALINE PHOSPHATASE (BEAKER) (test xoew=464) 134 U/L 40-150 AST (SGOT) (BEAKER) (test imgp=549) 44 U/L 5-34 ALT (SGPT) (BEAKER) (test eule=627) 30 U/L 6-55 CBC W/PLT COUNT & AUTO [id number] 04:16:00 Test Item Value Reference Range Comments WHITE BLOOD CELL COUNT (BEAKER) (test qvyz=649) 12.3 K/ L 3.5-10.5 RED BLOOD CELL COUNT (BEAKER) (test yhss=195) 2.97 M/ L 4.63-6.08 HEMOGLOBIN (BEAKER) (test sstk=651) 9.0 GM/DL 13.7-17.5 HEMATOCRIT (BEAKER) (test xrzu=723) 28.6 % 40.1-51.0 MEAN CORPUSCULAR VOLUME (BEAKER) (test nbbz=433) 96.3 fL 79.0-92.2 MEAN CORPUSCULAR HEMOGLOBIN (BEAKER) (test 30.3 pg 25.7-32.2 uzmk=082) MEAN CORPUSCULAR HEMOGLOBIN CONC (BEAKER) (test 31.5 GM/DL 32.3-36.5 nqui=174) RED CELL DISTRIBUTION WIDTH (BEAKER) (test 16.2 % 11.6-14.4 waan=349) PLATELET COUNT (BEAKER) (test hkmf=892) 293 K/CU MM 150-450 MEAN PLATELET VOLUME (BEAKER) (test cppi=257) 9.7 fL 9.4-12.4 NUCLEATED RED BLOOD CELLS (BEAKER) (test 0 /100 WBC 0-0 qfhv=119) NEUTROPHILS RELATIVE PERCENT (BEAKER) (test 73 % blgx=192) LYMPHOCYTES RELATIVE PERCENT (BEAKER) (test 11 % bknx=377) MONOCYTES RELATIVE PERCENT (BEAKER) (test 11 % bxha=076) EOSINOPHILS RELATIVE PERCENT (BEAKER) (test 4 % qqmy=209) BASOPHILS RELATIVE PERCENT (BEAKER) (test 0 % ftlq=848) NEUTROPHILS ABSOLUTE COUNT (BEAKER) (test 8.96 K/ L 1.78-5.38 dwpy=666) LYMPHOCYTES ABSOLUTE COUNT (BEAKER) (test 1.36 K/ L 1.32-3.57 qclx=435) MONOCYTES ABSOLUTE COUNT (BEAKER) (test 1.31 K/ L 0.30-0.82 vqlt=754) EOSINOPHILS ABSOLUTE COUNT (BEAKER) (test 0.51 K/ L 0.04-0.54 jlpj=557) BASOPHILS ABSOLUTE COUNT (BEAKER) (test 0.05 K/ L 0.01-0.08 hkyu=716) IMMATURE GRANULOCYTES-RELATIVE PERCENT (BEAKER) 1 % 0-1 (test nzkq=4333) [id number] 04:06:00 Test Item Value Reference Range Comments D-DIMER QUANTITATIVE (BEAKER) (test ijqi=857) 2.14 MG/L FEU <0.50 Intended Use: The D-Dimer Assay can be used to aid in the diagnosis of Deep Vein Thrombosis (DVT) and Pulmonary Embolism Disease (PED).In patients with low pre-test probability, various studies concerning STA Liatest D-dimer test have reported that with a cutoff value of 0.50 MG/L FEU, the Negative Predictive Value (NPV) regarding the exclusion of thrombosis is within 95-100% range.[id number] 04:04:00 Test Item Value Reference Range Comments FIBRINOGEN LEVEL (BEAKER) (test qsmo=604) 426 mg/dl 225-434 [id number] 04:04:00 Test Item Value Reference Range Comments PROTIME (BEAKER) (test nhdj=631) 15.0 seconds 11.7-14.7 INR (BEAKER) (test zwkt=338) 1.2 <=5.9 PARTIAL THROMBOPLASTIN TIME (BEAKER) (test 31.7 seconds 22.5-36.0 sztw=470) RECOMMENDED COUMADIN/WARFARIN INR THERAPY RANGESSTANDARD DOSE: 2.0 - 3.0 Includes: PROPHYLAXIS forvenous thrombosis, systemic embolization; TREATMENT for venous thrombosis and/or pulmonary embolus.HIGH RISK: Target INR is 2.5-3.5 for patients with mechanical heart valves.PLATELET [id number] 03:59:00 Test Item Value Reference Range Comments PLATELET COUNT (BEAKER) (test dbib=490) 293 K/CU MM 150-450 HEMOGLOBIN AND [id number] 03:59:00 Test Item Value Reference Range Comments HEMOGLOBIN (BEAKER) (test swvp=937) 9.0 GM/DL 13.7-17.5 HEMATOCRIT (BEAKER) (test glzv=928) 28.6 % 40.1-51.0 POCT-GLUCOSE [id number] 22:54:00 Test Item Value Reference Range Comments POC-GLUCOSE METER (BEAKER) 169 mg/dL 70-110 TESTED AT [address] (test irek=3275) [facility] [address] POCT-GLUCOSE [id number] 17:50:00 Test Item Value Reference Range Comments POC-GLUCOSE METER (BEAKER) 162 mg/dL 70-110 TESTED AT [address] (test ehjn=7722) [facility] [address] HEMOGLOBIN AND [id number] 12:54:00 Test Item Value Reference Range Comments HEMOGLOBIN (BEAKER) (test sefi=977) 8.9 GM/DL 13.7-17.5 HEMATOCRIT (BEAKER) (test vski=561) 28.0 % 40.1-51.0 [id number] 06:09:00 Test Item Value Reference Range Comments MAGNESIUM (BEAKER) (test mrlo=572) 1.4 mg/dL 1.6-2.6 BASIC METABOLIC [id number] 06:09:00 Test Item Value Reference Range Comments SODIUM (BEAKER) (test 141 meq/L 136-145 wbxm=068) POTASSIUM (BEAKER) (test 3.3 meq/L 3.5-5.1 geir=091) CHLORIDE (BEAKER) (test 103 meq/L 98-107 llxx=556) CO2 (BEAKER) (test 31 meq/L 22-29 hksd=017) BLOOD UREA NITROGEN 16 mg/dL 7-21 (BEAKER) (test yyjj=063) CREATININE (BEAKER) (test 1.65 mg/dL 0.57-1.25 npmb=097) GLUCOSE RANDOM (BEAKER) 155 mg/dL 70-105 (test geyk=841) CALCIUM (BEAKER) (test 8.3 mg/dL 8.4-10.2 cevk=116) EGFR (BEAKER) (test 43 mL/min/1.73 sq m ESTIMATED GFR IS NOT jcnq=8456) ACCURATE CREATININE CLEARANCE IN PREDICTING GLOMERULAR FILTRATION RATE. ESTIMATED GFR IS NOT APPLICABLE FOR DIALYSIS PATIENTS. HEPATIC FUNCTION [id number] 06:09:00 Test Item Value Reference Range Comments TOTAL PROTEIN (BEAKER) (test ryiv=284) 4.9 gm/dL 6.0-8.3 ALBUMIN (BEAKER) (test xogq=3975) 2.8 g/dL 3.5-5.0 BILIRUBIN TOTAL (BEAKER) (test yqdk=564) 1.2 mg/dL 0.2-1.2 BILIRUBIN DIRECT (BEAKER) (test gckv=389) 0.9 mg/dL 0.1-0.5 ALKALINE PHOSPHATASE (BEAKER) (test dfly=936) 130 U/L 40-150 AST (SGOT) (BEAKER) (test rlhy=922) 42 U/L 5-34 ALT (SGPT) (BEAKER) (test flka=690) 26 U/L 6-55 PROTHROMBIN [id number] 06:03:00 Test Item Value Reference Range Comments PROTIME (BEAKER) (test phuv=030) 15.8 seconds 11.7-14.7 INR (BEAKER) (test bmbh=763) 1.3 <=5.9 RECOMMENDED COUMADIN/WARFARIN INR THERAPY RANGESSTANDARD DOSE: 2.0 - 3.0 Includes: PROPHYLAXIS forvenous thrombosis, systemic embolization; TREATMENT for venous thrombosis and/or pulmonary embolus.HIGH RISK: Target INR is 2.5-3.5 for patients with mechanical heart valves.CBC W/PLT COUNT & AUTO [id number] 05:43:00 Test Item Value Reference Range Comments WHITE BLOOD CELL COUNT (BEAKER) (test tsqj=139) 11.7 K/ L 3.5-10.5 RED BLOOD CELL COUNT (BEAKER) (test rwip=709) 2.61 M/ L 4.63-6.08 HEMOGLOBIN (BEAKER) (test eoun=703) 7.8 GM/DL 13.7-17.5 HEMATOCRIT (BEAKER) (test aayg=839) 24.8 % 40.1-51.0 MEAN CORPUSCULAR VOLUME (BEAKER) (test zfnw=699) 95.0 fL 79.0-92.2 MEAN CORPUSCULAR HEMOGLOBIN (BEAKER) (test 29.9 pg 25.7-32.2 sbdd=391) MEAN CORPUSCULAR HEMOGLOBIN CONC (BEAKER) (test 31.5 GM/DL 32.3-36.5 ypjg=639) RED CELL DISTRIBUTION WIDTH (BEAKER) (test 16.3 % 11.6-14.4 uweq=495) PLATELET COUNT (BEAKER) (test pqfv=780) 281 K/CU MM 150-450 MEAN PLATELET VOLUME (BEAKER) (test wvuj=045) 9.8 fL 9.4-12.4 NUCLEATED RED BLOOD CELLS (BEAKER) (test 0 /100 WBC 0-0 sbon=345) NEUTROPHILS RELATIVE PERCENT (BEAKER) (test 71 % znrd=584) LYMPHOCYTES RELATIVE PERCENT (BEAKER) (test 15 % errc=384) MONOCYTES RELATIVE PERCENT (BEAKER) (test 10 % rcde=300) EOSINOPHILS RELATIVE PERCENT (BEAKER) (test 4 % qkyh=301) BASOPHILS RELATIVE PERCENT (BEAKER) (test 0 % mupa=271) NEUTROPHILS ABSOLUTE COUNT (BEAKER) (test 8.28 K/ L 1.78-5.38 sqfw=273) LYMPHOCYTES ABSOLUTE COUNT (BEAKER) (test 1.79 K/ L 1.32-3.57 emcr=822) MONOCYTES ABSOLUTE COUNT (BEAKER) (test 1.13 K/ L 0.30-0.82 hvqy=932) EOSINOPHILS ABSOLUTE COUNT (BEAKER) (test 0.41 K/ L 0.04-0.54 nwug=872) BASOPHILS ABSOLUTE COUNT (BEAKER) (test 0.04 K/ L 0.01-0.08 oeur=169) IMMATURE GRANULOCYTES-RELATIVE PERCENT (BEAKER) 1 % 0-1 (test oswu=9144) HEMOGLOBIN AND [id number] 18:54:00 Test Item Value Reference Range Comments HEMOGLOBIN (BEAKER) (test akho=174) 9.9 GM/DL 13.7-17.5 HEMATOCRIT (BEAKER) (test ogkm=318) 32.6 % 40.1-51.0 BLOOD [id number] 18:00:00 Test Item Value Reference Range Comments CULTURE (BEAKER) (test blmb=7173) No growth in 5 days HEMOGLOBIN AND [id number] 16:03:00 Test Item Value Reference Range Comments HEMOGLOBIN (BEAKER) (test axns=135) 9.4 GM/DL 13.7-17.5 HEMATOCRIT (BEAKER) (test hesq=692) 28.9 % 40.1-51.0 CBC W/PLT COUNT & AUTO [id number] 09:17:00 Test Item Value Reference Range Comments WHITE BLOOD CELL COUNT (BEAKER) (test degl=806) 11.4 K/ L 3.5-10.5 RED BLOOD CELL COUNT (BEAKER) (test dynp=445) 3.03 M/ L 4.63-6.08 HEMOGLOBIN (BEAKER) (test utea=090) 9.3 GM/DL 13.7-17.5 HEMATOCRIT (BEAKER) (test lgos=935) 28.7 % 40.1-51.0 MEAN CORPUSCULAR VOLUME (BEAKER) (test lisn=970) 94.7 fL 79.0-92.2 MEAN CORPUSCULAR HEMOGLOBIN (BEAKER) (test 30.7 pg 25.7-32.2 oodr=392) MEAN CORPUSCULAR HEMOGLOBIN CONC (BEAKER) (test 32.4 GM/DL 32.3-36.5 rdhs=861) RED CELL DISTRIBUTION WIDTH (BEAKER) (test 16.1 % 11.6-14.4 ocsw=951) PLATELET COUNT (BEAKER) (test gxjf=261) 244 K/CU MM 150-450 MEAN PLATELET VOLUME (BEAKER) (test veef=656) 10.1 fL 9.4-12.4 NUCLEATED RED BLOOD CELLS (BEAKER) (test 0 /100 WBC 0-0 flbt=561) NEUTROPHILS RELATIVE PERCENT (BEAKER) (test 74 % gebt=098) LYMPHOCYTES RELATIVE PERCENT (BEAKER) (test 11 % qqed=366) MONOCYTES RELATIVE PERCENT (BEAKER) (test 9 % okdb=619) EOSINOPHILS RELATIVE PERCENT (BEAKER) (test 4 % ofza=251) BASOPHILS RELATIVE PERCENT (BEAKER) (test 0 % yyna=650) NEUTROPHILS ABSOLUTE COUNT (BEAKER) (test 8.50 K/ L 1.78-5.38 ltgc=577) LYMPHOCYTES ABSOLUTE COUNT (BEAKER) (test 1.27 K/ L 1.32-3.57 xxdl=437) MONOCYTES ABSOLUTE COUNT (BEAKER) (test 1.06 K/ L 0.30-0.82 fmby=683) EOSINOPHILS ABSOLUTE COUNT (BEAKER) (test 0.46 K/ L 0.04-0.54 bkcf=370) BASOPHILS ABSOLUTE COUNT (BEAKER) (test 0.05 K/ L 0.01-0.08 soae=294) IMMATURE GRANULOCYTES-RELATIVE PERCENT (BEAKER) 1 % 0-1 (test jolm=2888) PROTHROMBIN [id number] 08:38:00 Test Item Value Reference Range Comments PROTIME (BEAKER) (test zgsw=369) 14.7 seconds 11.7-14.7 INR (BEAKER) (test dsva=438) 1.2 <=5.9 RECOMMENDED COUMADIN/WARFARIN INR THERAPY RANGESSTANDARD DOSE: 2.0 - 3.0 Includes: PROPHYLAXIS forvenous thrombosis, systemic embolization; TREATMENT for venous thrombosis and/or pulmonary embolus.HIGH RISK: Target INR is 2.5-3.5 for patients with mechanical heart valves.BASIC METABOLIC [id number] 07:46: 00 Test Item Value Reference Range Comments SODIUM (BEAKER) (test 137 meq/L 136-145 iwqz=236) POTASSIUM (BEAKER) (test 4.1 meq/L 3.5-5.1 Specimen moderately rsnc=125) hemolyzed CHLORIDE (BEAKER) (test 103 meq/L 98-107 iuql=811) CO2 (BEAKER) (test 22 meq/L 22-29 whfm=096) BLOOD UREA NITROGEN 13 mg/dL 7-21 (BEAKER) (test gkga=225) CREATININE (BEAKER) (test 1.56 mg/dL 0.57-1.25 Specimen moderately vggw=243) hemolyzed GLUCOSE RANDOM (BEAKER) 114 mg/dL 70-105 (test izyf=492) CALCIUM (BEAKER) (test 9.1 mg/dL 8.4-10.2 ikoh=631) EGFR (BEAKER) (test 46 mL/min/1.73 sq m ESTIMATED GFR IS NOT gcgr=2950) ACCURATE CREATININE CLEARANCE IN PREDICTING GLOMERULAR FILTRATION RATE. ESTIMATED GFR IS NOT APPLICABLE FOR DIALYSIS PATIENTS. PROTHROMBIN [id number] 06:45:00 Test Item Value Reference Range Comments PROTIME (BEAKER) (test juht=492) 14.5 seconds 11.7-14.7 INR (BEAKER) (test lajj=902) 1.1 <=5.9 RECOMMENDED COUMADIN/WARFARIN INR THERAPY RANGESSTANDARD DOSE: 2.0 - 3.0 Includes: PROPHYLAXIS forvenous thrombosis, systemic embolization; TREATMENT for venous thrombosis and/or pulmonary embolus.HIGH RISK: Target INR is 2.5-3.5 for patients with mechanical heart valves.[id number] 05:11:00 Test Item Value Reference Range Comments MAGNESIUM (BEAKER) (test 1.8 mg/dL 1.6-2.6 Specimen moderately hemolyzed brea=133) HEPATIC FUNCTION [id number] 05:11:00 Test Item Value Reference Range Comments TOTAL PROTEIN (BEAKER) (test 6.2 gm/dL 6.0-8.3 Specimen moderately hemolyzed lfrf=983) ALBUMIN (BEAKER) (test 3.1 g/dL 3.5-5.0 Specimen moderately hemolyzed ldjk=1489) BILIRUBIN TOTAL (BEAKER) (test 2.0 mg/dL 0.2-1.2 Specimen moderately hemolyzed pvwm=988) BILIRUBIN DIRECT (BEAKER) 0.8 mg/dL 0.1-0.5 Specimen moderately hemolyzed (test zsox=776) ALKALINE PHOSPHATASE (BEAKER) 155 U/L 40-150 (test zoef=877) AST (SGOT) (BEAKER) (test 54 U/L 5-34 Specimen moderately hemolyzed yqsy=912) ALT (SGPT) (BEAKER) (test 29 U/L 6-55 Specimen moderately sbnw=741) hemolyzed [id number] 06:06:00 Test Item Value Reference Range Comments MAGNESIUM (BEAKER) (test yicw=511) 1.6 mg/dL 1.6-2.6 BASIC METABOLIC [id number] 06:06:00 Test Item Value Reference Range Comments SODIUM (BEAKER) (test 141 meq/L 136-145 ecra=665) POTASSIUM (BEAKER) (test 3.6 meq/L 3.5-5.1 xssb=493) CHLORIDE (BEAKER) (test 105 meq/L 98-107 beov=316) CO2 (BEAKER) (test 27 meq/L 22-29 zpmm=455) BLOOD UREA NITROGEN 13 mg/dL 7-21 (BEAKER) (test ljis=902) CREATININE (BEAKER) (test 1.39 mg/dL 0.57-1.25 lymf=965) GLUCOSE RANDOM (BEAKER) 128 mg/dL 70-105 (test uflz=432) CALCIUM (BEAKER) (test 8.4 mg/dL 8.4-10.2 tvew=963) EGFR (BEAKER) (test 53 mL/min/1.73 sq m ESTIMATED GFR IS NOT fvrc=6923) ACCURATE CREATININE CLEARANCE IN PREDICTING GLOMERULAR FILTRATION RATE. ESTIMATED GFR IS NOT APPLICABLE FOR DIALYSIS PATIENTS. HEPATIC FUNCTION [id number] 06:06:00 Test Item Value Reference Range Comments TOTAL PROTEIN (BEAKER) (test fcde=710) 4.9 gm/dL 6.0-8.3 ALBUMIN (BEAKER) (test bvqw=7600) 2.8 g/dL 3.5-5.0 BILIRUBIN TOTAL (BEAKER) (test bhdm=415) 1.7 mg/dL 0.2-1.2 BILIRUBIN DIRECT (BEAKER) (test yrtt=211) 1.2 mg/dL 0.1-0.5 ALKALINE PHOSPHATASE (BEAKER) (test egbi=342) 122 U/L 40-150 AST (SGOT) (BEAKER) (test joqy=664) 33 U/L 5-34 ALT (SGPT) (BEAKER) (test iwyi=984) 22 U/L 6-55 PROTHROMBIN [id number] 05:51:00 Test Item Value Reference Range Comments PROTIME (BEAKER) (test hgip=834) 15.8 seconds 11.7-14.7 INR (BEAKER) (test htjh=060) 1.3 <=5.9 RECOMMENDED COUMADIN/WARFARIN INR THERAPY RANGESSTANDARD DOSE: 2.0 - 3.0 Includes: PROPHYLAXIS forvenous thrombosis, systemic embolization; TREATMENT for venous thrombosis and/or pulmonary embolus.HIGH RISK: Target INR is 2.5-3.5 for patients with mechanical heart valves.CBC W/PLT COUNT & AUTO [id number] 05:48:00 Test Item Value Reference Range Comments WHITE BLOOD CELL COUNT (BEAKER) (test ubqu=962) 9.3 K/ L 3.5-10.5 RED BLOOD CELL COUNT (BEAKER) (test jrbe=213) 2.80 M/ L 4.63-6.08 HEMOGLOBIN (BEAKER) (test tgik=176) 8.6 GM/DL 13.7-17.5 HEMATOCRIT (BEAKER) (test jtdq=954) 26.5 % 40.1-51.0 MEAN CORPUSCULAR VOLUME (BEAKER) (test kbsr=694) 94.6 fL 79.0-92.2 MEAN CORPUSCULAR HEMOGLOBIN (BEAKER) (test 30.7 pg 25.7-32.2 xwhd=851) MEAN CORPUSCULAR HEMOGLOBIN CONC (BEAKER) (test 32.5 GM/DL 32.3-36.5 hvtg=397) RED CELL DISTRIBUTION WIDTH (BEAKER) (test 16.0 % 11.6-14.4 kxcm=288) PLATELET COUNT (BEAKER) (test nkte=767) 224 K/CU MM 150-450 MEAN PLATELET VOLUME (BEAKER) (test mihh=005) 10.1 fL 9.4-12.4 NUCLEATED RED BLOOD CELLS (BEAKER) (test 0 /100 WBC 0-0 gdbg=740) NEUTROPHILS RELATIVE PERCENT (BEAKER) (test 66 % yqnj=017) LYMPHOCYTES RELATIVE PERCENT (BEAKER) (test 16 % tmwa=899) MONOCYTES RELATIVE PERCENT (BEAKER) (test 9 % wemr=806) EOSINOPHILS RELATIVE PERCENT (BEAKER) (test 8 % foxy=364) BASOPHILS RELATIVE PERCENT (BEAKER) (test 0 % lqeo=461) NEUTROPHILS ABSOLUTE COUNT (BEAKER) (test 6.14 K/ L 1.78-5.38 tiuy=251) LYMPHOCYTES ABSOLUTE COUNT (BEAKER) (test 1.49 K/ L 1.32-3.57 mlrm=586) MONOCYTES ABSOLUTE COUNT (BEAKER) (test 0.79 K/ L 0.30-0.82 bxpo=484) EOSINOPHILS ABSOLUTE COUNT (BEAKER) (test 0.76 K/ L 0.04-0.54 geay=336) BASOPHILS ABSOLUTE COUNT (BEAKER) (test 0.03 K/ L 0.01-0.08 rhag=957) IMMATURE GRANULOCYTES-RELATIVE PERCENT (BEAKER) 1 % 0-1 (test dwzp=0367) HEMOGLOBIN AND [id number] 00:16:00 Test Item Value Reference Range Comments HEMOGLOBIN (BEAKER) (test dahp=819) 8.8 GM/DL 13.7-17.5 HEMATOCRIT (BEAKER) (test pjmd=308) 27.1 % 40.1-51.0 HEMOGLOBIN AND [id number] 17:32:00 Test Item Value Reference Range Comments HEMOGLOBIN (BEAKER) (test wltr=210) 8.8 GM/DL 13.7-17.5 HEMATOCRIT (BEAKER) (test rnmm=807) 27.5 % 40.1-51.0 RAD, CHEST, 1 VIEW, NON [id number] 10:38:00Reason for exam:->HFShould this be performed at [...] MDReport Verified Date/Time: 07/18/2018 10:38:16 Reading Location: [facility] Radiology Reading Room Electronically signed by: GINA SPEARS M.D. on07/18/2018 10:38 AMHEMOGLOBIN AND [id number] 10 :12:00 Test Item Value Reference Range Comments HEMOGLOBIN (BEAKER) (test zsvg=308) 7.8 GM/DL 13.7-17.5 HEMATOCRIT (BEAKER) (test qdqo=005) 24.5 % 40.1-51.0 [id number] 04:04:00 Test Item Value Reference Range Comments MAGNESIUM (BEAKER) (test dlfy=628) 1.9 mg/dL 1.6-2.6 BASIC METABOLIC [id number] 04:04:00 Test Item Value Reference Range Comments SODIUM (BEAKER) (test 141 meq/L 136-145 yimz=066) POTASSIUM (BEAKER) (test 3.6 meq/L 3.5-5.1 tkgv=035) CHLORIDE (BEAKER) (test 109 meq/L 98-107 sxwj=344) CO2 (BEAKER) (test 26 meq/L 22-29 wywn=702) BLOOD UREA NITROGEN 15 mg/dL 7-21 (BEAKER) (test nsea=768) CREATININE (BEAKER) (test 1.44 mg/dL 0.57-1.25 agin=884) GLUCOSE RANDOM (BEAKER) 120 mg/dL 70-105 (test xlin=631) CALCIUM (BEAKER) (test 8.2 mg/dL 8.4-10.2 vrfb=815) EGFR (BEAKER) (test 51 mL/min/1.73 sq m ESTIMATED GFR IS NOT tgfl=3892) ACCURATE CREATININE CLEARANCE IN PREDICTING GLOMERULAR FILTRATION RATE. ESTIMATED GFR IS NOT APPLICABLE FOR DIALYSIS PATIENTS. HEPATIC FUNCTION [id number] 04:04:00 Test Item Value Reference Range Comments TOTAL PROTEIN (BEAKER) (test vqmq=281) 5.0 gm/dL 6.0-8.3 ALBUMIN (BEAKER) (test iadp=9234) 2.8 g/dL 3.5-5.0 BILIRUBIN TOTAL (BEAKER) (test qyga=448) 1.8 mg/dL 0.2-1.2 BILIRUBIN DIRECT (BEAKER) (test zmbc=785) 1.4 mg/dL 0.1-0.5 ALKALINE PHOSPHATASE (BEAKER) (test cint=161) 125 U/L 40-150 AST (SGOT) (BEAKER) (test kcgg=581) 31 U/L 5-34 ALT (SGPT) (BEAKER) (test dnrg=150) 22 U/L 6-55 PROTHROMBIN [id number] 04:00:00 Test Item Value Reference Range Comments PROTIME (BEAKER) (test lhzp=933) 15.5 seconds 11.7-14.7 INR (BEAKER) (test vnva=653) 1.2 <=5.9 RECOMMENDED COUMADIN/WARFARIN INR THERAPY RANGESSTANDARD DOSE: 2.0 - 3.0 Includes: PROPHYLAXIS forvenous thrombosis, systemic embolization; TREATMENT for venous thrombosis and/or pulmonary embolus.HIGH RISK: Target INR is 2.5-3.5 for patients with mechanical heart valves.CBC W/PLT COUNT & AUTO [id number] 03:46:00 Test Item Value Reference Range Comments WHITE BLOOD CELL COUNT (BEAKER) (test ypxc=495) 11.1 K/ L 3.5-10.5 RED BLOOD CELL COUNT (BEAKER) (test qgrt=711) 2.92 M/ L 4.63-6.08 HEMOGLOBIN (BEAKER) (test iaif=820) 8.8 GM/DL 13.7-17.5 HEMATOCRIT (BEAKER) (test pyvb=051) 27.3 % 40.1-51.0 MEAN CORPUSCULAR VOLUME (BEAKER) (test fxur=575) 93.5 fL 79.0-92.2 MEAN CORPUSCULAR HEMOGLOBIN (BEAKER) (test 30.1 pg 25.7-32.2 cgga=209) MEAN CORPUSCULAR HEMOGLOBIN CONC (BEAKER) (test 32.2 GM/DL 32.3-36.5 ivtx=842) RED CELL DISTRIBUTION WIDTH (BEAKER) (test 15.5 % 11.6-14.4 qddh=396) PLATELET COUNT (BEAKER) (test jhzc=567) 186 K/CU MM 150-450 MEAN PLATELET VOLUME (BEAKER) (test rfjf=043) 9.7 fL 9.4-12.4 NUCLEATED RED BLOOD CELLS (BEAKER) (test 0 /100 WBC 0-0 lglv=383) NEUTROPHILS RELATIVE PERCENT (BEAKER) (test 68 % wlyj=423) LYMPHOCYTES RELATIVE PERCENT (BEAKER) (test 14 % yayx=587) MONOCYTES RELATIVE PERCENT (BEAKER) (test 11 % tiqm=740) EOSINOPHILS RELATIVE PERCENT (BEAKER) (test 6 % kfxs=554) BASOPHILS RELATIVE PERCENT (BEAKER) (test 0 % xohh=136) NEUTROPHILS ABSOLUTE COUNT (BEAKER) (test 7.55 K/ L 1.78-5.38 ucki=417) LYMPHOCYTES ABSOLUTE COUNT (BEAKER) (test 1.54 K/ L 1.32-3.57 rkgk=300) MONOCYTES ABSOLUTE COUNT (BEAKER) (test 1.21 K/ L 0.30-0.82 akvp=310) EOSINOPHILS ABSOLUTE COUNT (BEAKER) (test 0.64 K/ L 0.04-0.54 ghhc=118) BASOPHILS ABSOLUTE COUNT (BEAKER) (test 0.01 K/ L 0.01-0.08 ftme=436) IMMATURE GRANULOCYTES-RELATIVE PERCENT (BEAKER) 1 % 0-1 (test ycnu=2048) HEMOGLOBIN AND [id number] 00:32:00 Test Item Value Reference Range Comments HEMOGLOBIN (BEAKER) (test hvom=631) 9.0 GM/DL 13.7-17.5 HEMATOCRIT (BEAKER) (test rdtb=807) 27.8 % 40.1-51.0 [id number] 18:36:00 Test Item Value Reference Range Comments MAGNESIUM (BEAKER) (test 2.2 mg/dL 1.6-2.6 Specimen slightly hemolyzed zqpt=413) [id number] 18:36:00 Test Item Value Reference Range Comments POTASSIUM (BEAKER) (test 4.3 meq/L 3.5-5.1 Specimen slightly hemolyzed cqwz=509) [place], [id number] 18:08:00INTRA OP IMAGINGReason for exam:->abnormal imagingFINAL REPORT ERCP 1 view 07/17/2018 6:06 PM CLINICAL HISTORY: Instrument localization COMPARISON: None available IMPRESSION : Please correlate imaging report findings with the procedure note prepared by Dr. Santacruz, as an intra-procedure imaging consultation was not requested. Reported fluoroscopy time: 233.8 seconds. Signed: Farhad Meza Verified Date/Time: 07/17/2018 18:08:25 Reading Location: [facility] Radiology Reading Room Electronically signed by: FARHAD MEZA M.D. on 06:08 PMHEMOGLOBIN AND [id number] 18:03:00 Test Item Value Reference Range Comments HEMOGLOBIN (BEAKER) (test wljx=810) 9.2 GM/DL 13.7-17.5 HEMATOCRIT (BEAKER) (test vfcm=143) 28.1 % 40.1-51.0 [id number] 09:33:00 Test Item Value Reference Range Comments POTASSIUM (BEAKER) (test uevv=698) 3.4 meq/L 3.5-5.1 [id number] 09:33:00 Test Item Value Reference Range Comments MAGNESIUM (BEAKER) (test wvcw=746) 2.0 mg/dL 1.6-2.6 HEMOGLOBIN AND [id number] 09:20:00 Test Item Value Reference Range Comments HEMOGLOBIN (BEAKER) (test ckej=861) 8.9 GM/DL 13.7-17.5 HEMATOCRIT (BEAKER) (test ahpg=403) 26.9 % 40.1-51.0 PROTHROMBIN [id number] 06:45:00 Test Item Value Reference Range Comments PROTIME (BEAKER) (test zcfu=998) 16.9 seconds 11.7-14.7 INR (BEAKER) (test gvbf=254) 1.4 <=5.9 RECOMMENDED COUMADIN/WARFARIN INR THERAPY RANGESSTANDARD DOSE: 2.0 - 3.0 Includes: PROPHYLAXIS forvenous thrombosis, systemic embolization; TREATMENT for venous thrombosis and/or pulmonary embolus.HIGH RISK: Target INR is 2.5-3.5 for patients with mechanical heart valves.BASIC METABOLIC [id number] 03:44: 00 Test Item Value Reference Range Comments SODIUM (BEAKER) (test 141 meq/L 136-145 rmau=596) POTASSIUM (BEAKER) (test 3.1 meq/L 3.5-5.1 gydg=090) CHLORIDE (BEAKER) (test 106 meq/L 98-107 uycy=392) CO2 (BEAKER) (test 29 meq/L 22-29 tgos=125) BLOOD UREA NITROGEN 21 mg/dL 7-21 (BEAKER) (test vrga=010) CREATININE (BEAKER) (test 1.78 mg/dL 0.57-1.25 uwrq=099) GLUCOSE RANDOM (BEAKER) 176 mg/dL 70-105 (test qodr=284) CALCIUM (BEAKER) (test 7.8 mg/dL 8.4-10.2 tapd=911) EGFR (BEAKER) (test 40 mL/min/1.73 sq m ESTIMATED GFR IS NOT kjxg=5138) ACCURATE CREATININE CLEARANCE IN PREDICTING GLOMERULAR FILTRATION RATE. ESTIMATED GFR IS NOT APPLICABLE FOR DIALYSIS PATIENTS. [id number] 03:36:00 Test Item Value Reference Range Comments MAGNESIUM (BEAKER) (test jtwi=948) 2.3 mg/dL 1.6-2.6 HEPATIC FUNCTION [id number] 03:36:00 Test Item Value Reference Range Comments TOTAL PROTEIN (BEAKER) (test psrw=499) 4.5 gm/dL 6.0-8.3 ALBUMIN (BEAKER) (test fvux=2382) 2.6 g/dL 3.5-5.0 BILIRUBIN TOTAL (BEAKER) (test trvs=798) 1.7 mg/dL 0.2-1.2 BILIRUBIN DIRECT (BEAKER) (test xoou=137) 1.3 mg/dL 0.1-0.5 ALKALINE PHOSPHATASE (BEAKER) (test usnz=607) 107 U/L 40-150 AST (SGOT) (BEAKER) (test gwjp=334) 33 U/L 5-34 ALT (SGPT) (BEAKER) (test zuur=961) 21 U/L 6-55 CBC W/PLT COUNT & AUTO [id number] 03:08:00 Test Item Value Reference Range Comments WHITE BLOOD CELL COUNT (BEAKER) (test wodl=201) 10.5 K/ L 3.5-10.5 RED BLOOD CELL COUNT (BEAKER) (test jdom=815) 2.80 M/ L 4.63-6.08 HEMOGLOBIN (BEAKER) (test ndfn=153) 8.4 GM/DL 13.7-17.5 HEMATOCRIT (BEAKER) (test iuod=102) 25.5 % 40.1-51.0 MEAN CORPUSCULAR VOLUME (BEAKER) (test mzvk=241) 91.1 fL 79.0-92.2 MEAN CORPUSCULAR HEMOGLOBIN (BEAKER) (test 30.0 pg 25.7-32.2 igwe=313) MEAN CORPUSCULAR HEMOGLOBIN CONC (BEAKER) (test 32.9 GM/DL 32.3-36.5 dqyn=347) RED CELL DISTRIBUTION WIDTH (BEAKER) (test 15.1 % 11.6-14.4 buup=136) PLATELET COUNT (BEAKER) (test urpg=167) 153 K/CU MM 150-450 MEAN PLATELET VOLUME (BEAKER) (test jdpg=033) 9.7 fL 9.4-12.4 NUCLEATED RED BLOOD CELLS (BEAKER) (test 0 /100 WBC 0-0 sfpb=423) NEUTROPHILS RELATIVE PERCENT (BEAKER) (test 69 % htww=766) LYMPHOCYTES RELATIVE PERCENT (BEAKER) (test 12 % xujh=373) MONOCYTES RELATIVE PERCENT (BEAKER) (test 11 % jdze=730) EOSINOPHILS RELATIVE PERCENT (BEAKER) (test 7 % azjz=998) BASOPHILS RELATIVE PERCENT (BEAKER) (test 0 % okwx=940) NEUTROPHILS ABSOLUTE COUNT (BEAKER) (test 7.24 K/ L 1.78-5.38 jabk=753) LYMPHOCYTES ABSOLUTE COUNT (BEAKER) (test 1.30 K/ L 1.32-3.57 djge=097) MONOCYTES ABSOLUTE COUNT (BEAKER) (test 1.14 K/ L 0.30-0.82 lcsr=860) EOSINOPHILS ABSOLUTE COUNT (BEAKER) (test 0.69 K/ L 0.04-0.54 ulvd=445) BASOPHILS ABSOLUTE COUNT (BEAKER) (test 0.01 K/ L 0.01-0.08 dflp=069) IMMATURE GRANULOCYTES-RELATIVE PERCENT (BEAKER) 1 % 0-1 (test hlrv=2067) HEMOGLOBIN AND [id number] 00:43:00 Test Item Value Reference Range Comments HEMOGLOBIN (BEAKER) (test thfj=000) 9.2 GM/DL 13.7-17.5 HEMATOCRIT (BEAKER) (test zvvz=279) 27.6 % 40.1-51.0 [id number] 20:56:00 Test Item Value Reference Range Comments POTASSIUM (BEAKER) (test yoru=579) 3.0 meq/L 3.5-5.1 [id number] 20:56:00 Test Item Value Reference Range Comments MAGNESIUM (BEAKER) (test ufzu=726) 1.7 mg/dL 1.6-2.6 HEMOGLOBIN AND [id number] 17:08:00 Test Item Value Reference Range Comments HEMOGLOBIN (BEAKER) (test lokv=714) 9.3 GM/DL 13.7-17.5 HEMATOCRIT (BEAKER) (test kdkr=680) 28.2 % 40.1-51.0 [id number] 08:36:00 Test Item Value Reference Range Comments PHOSPHORUS (BEAKER) (test ownt=340) 2.9 mg/dL 2.3-4.7 HEMOGLOBIN AND [id number] 08:18:00 Test Item Value Reference Range Comments HEMOGLOBIN (BEAKER) (test rhhc=740) 8.7 GM/DL 13.7-17.5 HEMATOCRIT (BEAKER) (test gutp=756) 25.7 % 40.1-51.0 BASIC METABOLIC [id number] 05:58:00 Test Item Value Reference Range Comments SODIUM (BEAKER) (test 144 meq/L 136-145 baqp=853) POTASSIUM (BEAKER) (test 3.3 meq/L 3.5-5.1 flte=426) CHLORIDE (BEAKER) (test 112 meq/L 98-107 gjrh=339) CO2 (BEAKER) (test 25 meq/L 22-29 pcyg=794) BLOOD UREA NITROGEN 25 mg/dL 7-21 (BEAKER) (test lhcx=041) CREATININE (BEAKER) (test 1.88 mg/dL 0.57-1.25 qtte=939) GLUCOSE RANDOM (BEAKER) 110 mg/dL 70-105 (test cozc=318) CALCIUM (BEAKER) (test 7.9 mg/dL 8.4-10.2 fkoo=340) EGFR (BEAKER) (test 37 mL/min/1.73 sq m ESTIMATED GFR IS NOT dlez=2987) ACCURATE CREATININE CLEARANCE IN PREDICTING GLOMERULAR FILTRATION RATE. ESTIMATED GFR IS NOT APPLICABLE FOR DIALYSIS PATIENTS. [id number] 04:58:00 Test Item Value Reference Range Comments MAGNESIUM (BEAKER) (test lbio=914) 1.3 mg/dL 1.6-2.6 HEPATIC FUNCTION [id number] 04:58:00 Test Item Value Reference Range Comments TOTAL PROTEIN (BEAKER) (test cfod=478) 3.7 gm/dL 6.0-8.3 ALBUMIN (BEAKER) (test hvlg=7755) 2.2 g/dL 3.5-5.0 BILIRUBIN TOTAL (BEAKER) (test iuca=806) 1.6 mg/dL 0.2-1.2 BILIRUBIN DIRECT (BEAKER) (test midc=957) 1.2 mg/dL 0.1-0.5 ALKALINE PHOSPHATASE (BEAKER) (test kdas=928) 81 U/L 40-150 AST (SGOT) (BEAKER) (test lcpg=729) 29 U/L 5-34 ALT (SGPT) (BEAKER) (test eool=019) 20 U/L 6-55 [id number] 04:40:00 Test Item Value Reference Range Comments D-DIMER QUANTITATIVE (BEAKER) (test nehc=539) 2.11 MG/L FEU <0.50 Intended Use: The [...] exclusion of thrombosis is within 95-100% range.PROTHROMBIN [id number] 04:37:00 Test Item Value Reference Range Comments PROTIME (BEAKER) (test vams=377) 17.4 seconds 11.7-14.7 INR (BEAKER) (test lxse=058) 1.4 <=5.9 RECOMMENDED COUMADIN/WARFARIN INR THERAPY RANGESSTANDARD DOSE: 2.0 - 3.0 Includes: PROPHYLAXIS forvenous thrombosis, systemic embolization; TREATMENT for venous thrombosis and/or pulmonary embolus.HIGH RISK: Target INR is 2.5-3.5 for patients with mechanical heart valves.CBC W/PLT COUNT & AUTO [id number] 04:33:00 Test Item Value Reference Range Comments WHITE BLOOD CELL COUNT (BEAKER) (test hlqg=367) 13.1 K/ L 3.5-10.5 RED BLOOD CELL COUNT (BEAKER) (test srzr=670) 2.87 M/ L 4.63-6.08 HEMOGLOBIN (BEAKER) (test aaih=488) 8.6 GM/DL 13.7-17.5 HEMATOCRIT (BEAKER) (test hlgn=712) 25.4 % 40.1-51.0 MEAN CORPUSCULAR VOLUME (BEAKER) (test oqly=204) 88.5 fL 79.0-92.2 MEAN CORPUSCULAR HEMOGLOBIN (BEAKER) (test 30.0 pg 25.7-32.2 lirg=643) MEAN CORPUSCULAR HEMOGLOBIN CONC (BEAKER) (test 33.9 GM/DL 32.3-36.5 tzso=327) RED CELL DISTRIBUTION WIDTH (BEAKER) (test 15.0 % 11.6-14.4 txgl=042) PLATELET COUNT (BEAKER) (test oizg=690) 130 K/CU MM 150-450 MEAN PLATELET VOLUME (BEAKER) (test egrs=314) 10.7 fL 9.4-12.4 NUCLEATED RED BLOOD CELLS (BEAKER) (test 0 /100 WBC 0-0 eabu=004) NEUTROPHILS RELATIVE PERCENT (BEAKER) (test 69 % qsuo=383) LYMPHOCYTES RELATIVE PERCENT (BEAKER) (test 14 % vgvy=632) MONOCYTES RELATIVE PERCENT (BEAKER) (test 7 % lkxe=278) EOSINOPHILS RELATIVE PERCENT (BEAKER) (test 7 % qzyl=395) BASOPHILS RELATIVE PERCENT (BEAKER) (test 0 % mrot=876) NEUTROPHILS ABSOLUTE COUNT (BEAKER) (test 9.07 K/ L 1.78-5.38 sxys=055) LYMPHOCYTES ABSOLUTE COUNT (BEAKER) (test 1.80 K/ L 1.32-3.57 wqoh=945) MONOCYTES ABSOLUTE COUNT (BEAKER) (test 0.94 K/ L 0.30-0.82 sqeg=287) EOSINOPHILS ABSOLUTE COUNT (BEAKER) (test 0.97 K/ L 0.04-0.54 epqc=945) BASOPHILS ABSOLUTE COUNT (BEAKER) (test 0.02 K/ L 0.01-0.08 iygp=137) IMMATURE GRANULOCYTES-RELATIVE PERCENT (BEAKER) 2 % 0-1 (test hgty=0514) CALCIUM, [id number] 04:29:00 Test Item Value Reference Range Comments CALCIUM IONIZED (BEAKER) (test smdr=075) 1.13 mmol/L 1.12-1.27 PH, BLOOD (BEAKER) (test rxji=6065) 7.42 HEMOGLOBIN AND [id number] 04:29:00 Test Item Value Reference Range Comments HEMOGLOBIN (BEAKER) (test molr=530) 8.6 GM/DL 13.7-17.5 HEMATOCRIT (BEAKER) (test fedf=036) 25.4 % 40.1-51.0 POCT-GLUCOSE [id number] 04:18:00 Test Item Value Reference Range Comments POC-GLUCOSE METER (BEAKER) 116 mg/dL 70-110 TESTED AT [address] (test ritq=6090) [facility] [address] HEMOGLOBIN AND [id number] 00:35:00 Test Item Value Reference Range Comments HEMOGLOBIN (BEAKER) (test cpws=324) 8.7 GM/DL 13.7-17.5 HEMATOCRIT (BEAKER) (test ieyi=287) 25.9 % 40.1-51.0 POCT-GLUCOSE [id number] 22:40:00 Test Item Value Reference Range Comments POC-GLUCOSE METER (BEAKER) 112 mg/dL 70-110 TESTED AT [address] (test piwu=6485) [facility] [address] HEMOGLOBIN AND [id number] 19:57:00 Test Item Value Reference Range Comments HEMOGLOBIN (BEAKER) (test qoms=094) 9.1 GM/DL 13.7-17.5 HEMATOCRIT (BEAKER) (test ddoc=775) 26.2 % 40.1-51.0 POCT-GLUCOSE [id number] 17:38:00 Test Item Value Reference Range Comments POC-GLUCOSE METER (BEAKER) 151 mg/dL 70-110 TESTED AT [address] (test afuh=6487) [facility] [address] [id number] 17:13:00 Test Item Value Reference Range Comments POTASSIUM (BEAKER) (test hppp=104) 3.7 meq/L 3.5-5.1 HEMOGLOBIN AND [id number] 16:43:00 Test Item Value Reference Range Comments HEMOGLOBIN (BEAKER) (test arym=252) 9.2 GM/DL 13.7-17.5 HEMATOCRIT (BEAKER) (test vhcr=559) 26.8 % 40.1-51.0 CBC W/PLT COUNT & AUTO [id number] 13:38:00 Test Item Value Reference Range Comments WHITE BLOOD CELL COUNT (BEAKER) (test lqil=821) 19.1 K/ L 3.5-10.5 RED BLOOD CELL COUNT (BEAKER) (test bzwn=651) 3.10 M/ L 4.63-6.08 HEMOGLOBIN (BEAKER) (test llgv=876) 9.3 GM/DL 13.7-17.5 HEMATOCRIT (BEAKER) (test nofj=922) 27.6 % 40.1-51.0 MEAN CORPUSCULAR VOLUME (BEAKER) (test zdwv=067) 89.0 fL 79.0-92.2 MEAN CORPUSCULAR HEMOGLOBIN (BEAKER) (test 30.0 pg 25.7-32.2 xynn=694) MEAN CORPUSCULAR HEMOGLOBIN CONC (BEAKER) (test 33.7 GM/DL 32.3-36.5 ebow=918) RED CELL DISTRIBUTION WIDTH (BEAKER) (test 13.9 % 11.6-14.4 rspk=677) PLATELET COUNT (BEAKER) (test wrrc=477) 146 K/CU MM 150-450 MEAN PLATELET VOLUME (BEAKER) (test zjpq=866) 11.1 fL 9.4-12.4 NUCLEATED RED BLOOD CELLS (BEAKER) (test 0 /100 WBC 0-0 iluc=173) (CELLAVISION MANUAL DIFF)2018-07-15 13:38:00 Test Item Value Reference Range Comments NEUTROPHILS - REL (CELLAVISION)(BEAKER) (test 92 % nfum=6084) LYMPHOCYTES - REL (CELLAVISION)(BEAKER) (test 2 % mpbs=0430) MONOCYTES - REL (CELLAVISION)(BEAKER) (test 5 % gddy=1650) METAMYELOCYTES - REL (CELLAVISION)(BEAKER) (test 1 % 0-0 nbgt=5585) BANDS - REL (CELLAVISION)(BEAKER) (test 1 % 0-10 pmvw=4168) NEUTROPHILS - ABS (CELLAVISION)(BEAKER) (test 17.57 K/ul 1.78-5.38 helx=7803) LYMPHOCYTES - ABS (CELLAVISION)(BEAKER) (test 0.38 K/ul 1.32-3.57 oqlr=9306) MONOCYTES - ABS (CELLAVISION)(BEAKER) (test 0.96 K/uL 0.30-0.82 yudu=2371) METAMYELOCYTES - ABS (CELLAVISION)(BEAKER) (test 0.19 K/uL 0.00-0.00 viqc=8653) BANDS - ABS (CELLAVISION)(BEAKER) (test 0.19 K/uL 0.00-0.80 qkca=5507) TOTAL COUNTED (BEAKER) (test uvle=4381) 100 WBC MORPHOLOGY (BEAKER) (test smnd=315) Normal PLT MORPHOLOGY (BEAKER) (test sera=929) Normal ANISOCYTOSIS (BEAKER) (test njaf=069) 2+ moderate MICROCYTES (BEAKER) (test keyi=096) 2+ moderate POIKILOCYTES (BEAKER) (test rhdj=432) 1+ few ARTIFACT (CELLAVISION)(BEAKER) (test jtez=4981) Present PLATELET CONCENTRATION (CELLAVISION)(BEAKER) Decreased (test afxd=3732) Received comment: User comments: Slide comments:COMPREHENSIVE METABOLIC [id number] 13:27:00 Test Item Value Reference Range Comments TOTAL PROTEIN (BEAKER) 3.8 gm/dL 6.0-8.3 (test xxhz=646) ALBUMIN (BEAKER) (test 2.2 g/dL 3.5-5.0 mpmw=3831) ALKALINE PHOSPHATASE 100 U/L 40-150 (BEAKER) (test ddnr=560) BILIRUBIN TOTAL (BEAKER) 2.5 mg/dL 0.2-1.2 (test ckah=936) SODIUM (BEAKER) (test 141 meq/L 136-145 gcsi=556) POTASSIUM (BEAKER) (test 3.3 meq/L 3.5-5.1 rcwe=816) CHLORIDE (BEAKER) (test 109 meq/L 98-107 noua=796) CO2 (BEAKER) (test 25 meq/L 22-29 jchr=966) BLOOD UREA NITROGEN 27 mg/dL 7-21 (BEAKER) (test rbro=442) CREATININE (BEAKER) (test 1.96 mg/dL 0.57-1.25 hcqq=058) GLUCOSE RANDOM (BEAKER) 164 mg/dL 70-105 (test dnsr=395) CALCIUM (BEAKER) (test 7.5 mg/dL 8.4-10.2 hmqr=715) AST (SGOT) (BEAKER) (test 31 U/L 5-34 hqde=161) ALT (SGPT) (BEAKER) (test 22 U/L 6-55 txbl=953) EGFR (BEAKER) (test 36 mL/min/1.73 sq m ESTIMATED GFR IS NOT eplc=9732) ACCURATE CREATININE CLEARANCE IN PREDICTING GLOMERULAR FILTRATION RATE. ESTIMATED GFR IS NOT APPLICABLE FOR DIALYSIS PATIENTS. Specimen slightly ictericLACTIC ACID, ARTERIAL, WHOLE [id number] 13:21:00 Test Item Value Reference Range Comments LACTATE BLOOD ARTERIAL (2) (BEAKER) (test 0.8 mmol/L 0.5-2.2 vhic=4857) Effective 02/25/2016: Units/Reference Range ChangeNew: 0.5-2.2 mmol/L Previous: 5 -20 mg/dLSpecimen slightly ictericCALCIUM, [id number] 13:06:00 Test Item Value Reference Range Comments CALCIUM IONIZED (BEAKER) (test muyh=850) 1.07 mmol/L 1.12-1.27 PH, BLOOD (BEAKER) (test ioee=9895) 7.44 PLATELET [id number] 13:01:00 Test Item Value Reference Range Comments PLATELET COUNT (BEAKER) (test frog=168) 138 K/CU MM 150-450 HEMOGLOBIN AND [id number] 13:01:00 Test Item Value Reference Range Comments HEMOGLOBIN (BEAKER) (test nevy=161) 9.4 GM/DL 13.7-17.5 HEMATOCRIT (BEAKER) (test sbtg=115) 27.7 % 40.1-51.0 POCT-GLUCOSE [id number] 12:02:00 Test Item Value Reference Range Comments POC-GLUCOSE METER (BEAKER) 175 mg/dL 70-110 TESTED AT [facility] [address] [facility] (test gpsl=0622) [facility] [address] LACTIC ACID, VENOUS, WHOLE [id number] 11:44:00 Test Item Value Reference Range Comments LACTATE BLOOD VENOUS (2) (BEAKER) (test 0.9 mmol/L 0.5-2.2 yaum=8371) Effective 02/25/2016: Units/Reference Range ChangeNew: 0.5-2.2 mmol/L Previous: 5 -20 mg/dLLACTIC ACID, VENOUS, WHOLE [id number] 10:20:00 Test Item Value Reference Range Comments LACTATE BLOOD VENOUS (2) (BEAKER) (test 0.9 mmol/L 0.5-2.2 cpoz=2785) Effective 02/25/2016: Units/Reference Range ChangeNew: 0.5-2.2 mmol/L Previous: 5 -20 mg/[id number] 10:00:00 Test Item Value Reference Range Comments D-DIMER QUANTITATIVE (BEAKER) (test xiue=694) 2.73 MG/L FEU <0.50 Intended Use: The [...] exclusion of thrombosis is within 95-100% range.PT/ [id number] 09:58:00 Test Item Value Reference Range Comments PROTIME (BEAKER) (test pqdg=689) 17.6 seconds 11.7-14.7 INR (BEAKER) (test vgqq=160) 1.5 <=5.9 PARTIAL THROMBOPLASTIN TIME (BEAKER) (test 29.5 seconds 22.5-36.0 znbr=513) RECOMMENDED COUMADIN/WARFARIN INR THERAPY RANGESSTANDARD DOSE: 2.0 - 3.0 Includes: PROPHYLAXIS forvenous thrombosis, systemic embolization; TREATMENT for venous thrombosis and/or pulmonary embolus.HIGH RISK: Target INR is 2.5-3.5 for patients with mechanical heart valves.[id number] 09:58:00 Test Item Value Reference Range Comments FIBRINOGEN LEVEL (BEAKER) (test prwn=688) 151 mg/dl 225-434 CALCIUM, [id number] 09:31:00 Test Item Value Reference Range Comments CALCIUM IONIZED (BEAKER) (test hvhm=410) 1.09 mmol/L 1.12-1.27 PH, BLOOD (BEAKER) (test gusg=2016) 7.45 CBC W/PLT COUNT & AUTO [id number] 08:51:00 Test Item Value Reference Range Comments WHITE BLOOD CELL COUNT (BEAKER) (test nmqu=737) 15.2 K/ L 3.5-10.5 RED BLOOD CELL COUNT (BEAKER) (test pyin=790) 2.09 M/ L 4.63-6.08 HEMOGLOBIN (BEAKER) (test qecs=511) 6.2 GM/DL 13.7-17.5 HEMATOCRIT (BEAKER) (test szht=636) 19.4 % 40.1-51.0 MEAN CORPUSCULAR VOLUME (BEAKER) (test utnj=940) 92.8 fL 79.0-92.2 MEAN CORPUSCULAR HEMOGLOBIN (BEAKER) (test 29.7 pg 25.7-32.2 vguq=933) MEAN CORPUSCULAR HEMOGLOBIN CONC (BEAKER) (test 32.0 GM/DL 32.3-36.5 mysa=802) RED CELL DISTRIBUTION WIDTH (BEAKER) (test 14.7 % 11.6-14.4 ziaw=369) PLATELET COUNT (BEAKER) (test hhlv=182) 147 K/CU MM 150-450 MEAN PLATELET VOLUME (BEAKER) (test uazh=239) 10.2 fL 9.4-12.4 NUCLEATED RED BLOOD CELLS (BEAKER) (test 0 /100 WBC 0-0 knta=132) (CELLAVISION MANUAL DIFF)2018-07-15 08:51:00 Test Item Value Reference Range Comments NEUTROPHILS - REL (CELLAVISION)(BEAKER) (test 89 % gvxu=6281) LYMPHOCYTES - REL (CELLAVISION)(BEAKER) (test 7 % grfi=7233) MONOCYTES - REL (CELLAVISION)(BEAKER) (test 2 % zuzy=8208) EOSINOPHILS - REL (CELLAVISION)(BEAKER) (test 1 % ixts=3316) BANDS - REL (CELLAVISION)(BEAKER) (test 1 % 0-10 elat=3519) NEUTROPHILS - ABS (CELLAVISION)(BEAKER) (test 13.53 K/ul 1.78-5.38 vovs=5554) LYMPHOCYTES - ABS (CELLAVISION)(BEAKER) (test 1.06 K/ul 1.32-3.57 qjaw=2629) MONOCYTES - ABS (CELLAVISION)(BEAKER) (test 0.30 K/uL 0.30-0.82 mwoo=9860) EOSINOPHILS - ABS (CELLAVISION)(BEAKER) (test 0.15 K/uL 0.04-0.54 idok=0141) BANDS - ABS (CELLAVISION)(BEAKER) (test 0.15 K/uL 0.00-0.80 hgmk=0045) TOTAL COUNTED (BEAKER) (test uvmk=1375) 100 WBC MORPHOLOGY (BEAKER) (test zyej=211) Normal GIANT PLATELETS (BEAKER) (test wjnd=675) Present HYPOCHROMIA (BEAKER) (test mzoi=504) 2+ moderate ANISOCYTOSIS (BEAKER) (test kdpc=004) 2+ moderate MICROCYTES (BEAKER) (test xwxb=054) 1+ few MACROCYTES (BEAKER) (test qqzb=238) 2+ moderate POIKILOCYTES (BEAKER) (test zkga=046) 1+ few OVALOCYTES (BEAKER) (test lfef=014) 1+ few ACANTHOCYTES (BEAKER) (test zqeb=890) 1+ few BASOPHILIC STIPPLING (BEAKER) (test iyft=434) Present ARTIFACT (CELLAVISION)(BEAKER) (test rjci=3301) Present PLATELET CONCENTRATION (CELLAVISION)(BEAKER) Adequate (test lrgb=9923) PROTHROMBIN [id number] 08:06:00 Test Item Value Reference Range Comments PROTIME (BEAKER) (test ailr=323) 17.3 seconds 11.7-14.7 INR (BEAKER) (test wkan=817) 1.4 <=5.9 RECOMMENDED COUMADIN/WARFARIN INR THERAPY RANGESSTANDARD DOSE: 2.0 - 3.0 Includes: PROPHYLAXIS forvenous thrombosis, systemic embolization; TREATMENT for venous thrombosis and/or pulmonary embolus.HIGH RISK: Target INR is 2.5-3.5 for patients with mechanical heart valves.[id number] 08:06:00 Test Item Value Reference Range Comments PROTIME (BEAKER) (test wjtu=796) 17.3 seconds 11.7-14.7 INR (BEAKER) (test hefd=606) 1.4 <=5.9 PARTIAL THROMBOPLASTIN TIME (BEAKER) (test 30.3 seconds 22.5-36.0 irez=911) RECOMMENDED COUMADIN/WARFARIN INR THERAPY RANGESSTANDARD DOSE: 2.0 - 3.0 Includes: PROPHYLAXIS forvenous thrombosis, systemic embolization; TREATMENT for venous thrombosis and/or pulmonary embolus.HIGH RISK: Target INR is 2.5-3.5 for patients with mechanical heart valves.[id number] 08:06:00 Test Item Value Reference Range Comments FIBRINOGEN LEVEL (BEAKER) (test ryjr=519) 153 mg/dl 225-434 [id number] 08:06:00 Test Item Value Reference Range Comments D-DIMER QUANTITATIVE (BEAKER) (test blcv=553) 3.00 MG/L FEU <0.50 Intended Use: The [...] of thrombosis is within 95-100% range.BLOOD GAS, [id number] 07:07:00 Test Item Value Reference Range Comments PH ARTERIAL (BEAKER) (test nhzz=783) 7.48 7.35-7.45 PCO2 ARTERIAL (BEAKER) (test sghm=852) 36 mm Hg 35-45 PO2 ARTERIAL (BEAKER) (test xziu=130) 391 mm Hg 80-90 O2 SATURATION ARTERIAL (BEAKER) (test ojkz=213) 99.8 % 96.0-97.0 HCO3 ARTERIAL (BEAKER) (test ozkc=221) 26 mmol/L 21-29 BASE EXCESS ARTERIAL (BEAKER) (test yuws=157) 2.6 mmol/L -2.0-3.0 PATIENT TEMPERATURE (BEAKER) (test cosb=4530) 37.0 FIO2 (BEAKER) (test qaca=0146) 100 CALCIUM, [id number] 07:07:00 Test Item Value Reference Range Comments CALCIUM IONIZED (BEAKER) (test uofg=462) 1.08 mmol/L 1.12-1.27 PH, BLOOD (BEAKER) (test iucx=4864) 7.48 CALCIUM, [id number] 07:06:00 Test Item Value Reference Range Comments CALCIUM IONIZED (BEAKER) (test yfhc=977) 1.07 mmol/L 1.12-1.27 PH, BLOOD (BEAKER) (test xkkg=7545) 7.44 [id number] 06:52:00 Test Item Value Reference Range Comments MAGNESIUM (BEAKER) (test foeu=056) 1.5 mg/dL 1.6-2.6 [id number] 06:52:00 Test Item Value Reference Range Comments POTASSIUM (BEAKER) (test assd=242) 3.3 meq/L 3.5-5.1 [id number] 06:52:00 Test Item Value Reference Range Comments SODIUM (BEAKER) (test lotc=463) 142 meq/L 136-145 HEPATIC FUNCTION [id number] 06:52:00 Test Item Value Reference Range Comments TOTAL PROTEIN (BEAKER) (test saxf=009) 3.9 gm/dL 6.0-8.3 ALBUMIN (BEAKER) (test qiem=8628) 2.3 g/dL 3.5-5.0 BILIRUBIN TOTAL (BEAKER) (test yldo=402) 1.3 mg/dL 0.2-1.2 BILIRUBIN DIRECT (BEAKER) (test bzdh=241) 1.0 mg/dL 0.1-0.5 ALKALINE PHOSPHATASE (BEAKER) (test wwef=701) 116 U/L 40-150 AST (SGOT) (BEAKER) (test rhsi=975) 38 U/L 5-34 ALT (SGPT) (BEAKER) (test argl=340) 26 U/L 6-55 THROMBOELASTOGRAPH (TEG)2018-07-15 06:15:00 Test Item Value Reference Range Comments TEG ACTIVATED CLOTTING TIME (BEAKER) (test 3.9 minutes 4.0-7.0 vwtr=1473) TEG FIBRINOGEN ACTIVITY (BEAKER) (test 73.5 degrees 61.0-73.0 xmja=9822) TEG PLT. AGGREGATION (BEAKER) (test dixa=4970) 57.9 MM 55.0-65.0 TEG FIBRINOLYSIS (BEAKER) (test pmtf=4556) 0.2 % 0.0-5.0 TGH ACTIVATED CLOTTING TIME (BEAKER) (test 4.2 minutes 4.0-7.0 ifsy=8402) TGH FIBRINOGEN ACTIVITY (BEAKER) (test 72.5 degrees 61.0-73.0 dhrh=7274) TGH PLT. AGGREGATION (BEAKER) (test xfeq=8363) 58.9 MM 55.0-65.0 TGH FIBRINOLYSIS (BEAKER) (test ugew=8100) 0.4 % 0.0-5.0 PLATELET [id number] 05:34:00 Test Item Value Reference Range Comments PLATELET COUNT (BEAKER) (test ranx=959) 146 K/CU MM 150-450 HEMOGLOBIN AND [id number] 05:34:00 Test Item Value Reference Range Comments HEMOGLOBIN (BEAKER) (test ifcd=608) 7.3 GM/DL 13.7-17.5 HEMATOCRIT (BEAKER) (test iruv=288) 22.2 % 40.1-51.0 CALCIUM, [id number] 05:26:00 Test Item Value Reference Range Comments CALCIUM IONIZED (BEAKER) (test oswc=881) 0.96 mmol/L 1.12-1.27 PH, BLOOD (BEAKER) (test ebpe=2089) 7.40 RAD, CHEST, 1 VIEW, NON [id number] 05:09:00Reason for exam:->check ET placementShould this be [...] MDReport Verified Date/Time: 07/15/2018 05:09:29 Reading Location: [facility] C013Y CT Body Reading Room -[id number] 04:55:00 Test Item Value Reference Range Comments D-DIMER QUANTITATIVE (BEAKER) (test wdnm=569) 3.30 MG/L FEU <0.50 Intended Use: The [...] thrombosis is within 95-100% range.POCT- BLOOD GASES, [id number] 04:54:00 Test Item Value Reference Range Comments TEMP, CELSIUS-POC (BEAKER) 36.8 (test tqwi=8709) FIO2-POC (BEAKER) (test 100 TESTED AT [place] [address] [address] rxrh=9964) [place] [address] PH, ARTERIAL-POC (BEAKER) 7.424 7.350-7.450 (test iqqg=4069) PCO2, ARTERIAL-POC (BEAKER) 41.6 mm Hg 35.0-45.0 (test pcdq=4219) PO2, ARTERIAL-POC (BEAKER) 482.0 mm Hg 80.0-90.0 (test fuvp=5807) SO2, ARTERIAL-POC (BEAKER) 100.0 % 96.0-97.0 (test vcjq=7374) HCO3, ARTERIAL-POC (BEAKER) 27.3 meq/L 21.0-29.0 (test aziy=3127) BASE EXCESS, ARTERIAL-POC 3.0 meq/L -2.0-3.0 (BEAKER) (test seyq=6989) [id number] 04:54:00 Test Item Value Reference Range Comments POC-SODIUM (BEAKER) (test 144 meq/L 135-148 TESTED AT [place] [address] [address] vzvv=5659) [place] [address] [id number] 04:54:00 Test Item Value Reference Range Comments POC-POTASSIUM (BEAKER) (test 3.2 meq/L 3.6-5.5 TESTED AT [place] [address] [address] gtde=7497) [place] [address] [id number] 04:54:00 Test Item Value Reference Range Comments POC-GLUCOSE (BEAKER) (test 170 mg/dL 70-110 TESTED AT [place] [address] [address] jjxu=2968) [place] [address] POCT-CALCIUM [id number] 04:54:00 Test Item Value Reference Range Comments POC-CALCIUM IONIZED (BEAKER) 1.09 mmol/L 1.12-1.27 TESTED AT [address] (test adaf=3542) [place] [id number] 04:54:00 Test Item Value Reference Range Comments POC-HEMATOCRIT (BEAKER) (test 22 % 40-50 TESTED AT [address] sdke=9217) [place] [address] [id number] 04:54:00 Test Item Value Reference Range Comments POC-HEMOGLOBIN (BEAKER) 7.5 g/dL 13.0-16.8 TESTED AT [address] (test nyxw=6415) [place] [address]TESTED AT [place] [address] [id number] 04:53:00 Test Item Value Reference Range Comments PROTIME (BEAKER) (test yely=279) 18.4 seconds 11.7-14.7 INR (BEAKER) (test wzyz=820) 1.5 <=5.9 PARTIAL THROMBOPLASTIN TIME (BEAKER) (test 33.3 seconds 22.5-36.0 clih=281) RECOMMENDED COUMADIN/WARFARIN INR THERAPY RANGESSTANDARD DOSE: 2.0 - 3.0 Includes: PROPHYLAXIS forvenous thrombosis, systemic embolization; TREATMENT for venous thrombosis and/or pulmonary embolus.HIGH RISK: Target INR is 2.5-3.5 for patients with mechanical heart valves.[id number] 04:53:00 Test Item Value Reference Range Comments FIBRINOGEN LEVEL (BEAKER) (test djbp=366) 164 mg/dl 225-434 HEMOGLOBIN AND [id number] 04:12:00 Test Item Value Reference Range Comments HEMOGLOBIN (BEAKER) (test ngtf=580) 7.3 GM/DL 13.7-17.5 HEMATOCRIT (BEAKER) (test rfzf=237) 22.3 % 40.1-51.0 POCT-BLOOD GASES, [id number] 03:58:00 Test Item Value Reference Range Comments TEMP, CELSIUS-POC (BEAKER) 36.8 (test bkjm=6398) FIO2-POC (BEAKER) (test 32 TESTED AT [address] sdex=7896) [place] [address] PH, ARTERIAL-POC (BEAKER) 7.426 7.350-7.450 (test jbzu=4096) PCO2, ARTERIAL-POC (BEAKER) 37.0 mm Hg 35.0-45.0 (test hbvt=5304) PO2, ARTERIAL-POC (BEAKER) 152.0 mm Hg 80.0-90.0 (test hxoy=5771) SO2, ARTERIAL-POC (BEAKER) 99.0 % 96.0-97.0 (test drcl=7546) HCO3, ARTERIAL-POC (BEAKER) 24.4 meq/L 21.0-29.0 (test swcn=9305) BASE EXCESS, ARTERIAL-POC 0.0 meq/L -2.0-3.0 (BEAKER) (test tjgb=1017) [id number] 03:58:00 Test Item Value Reference Range Comments POC-SODIUM (BEAKER) (test 143 meq/L 135-148 TESTED AT [address] ijwl=2626) [place] [address] [id number] 03:58:00 Test Item Value Reference Range Comments POC-POTASSIUM (BEAKER) (test 4.3 meq/L 3.6-5.5 TESTED AT [address] qmtj=5733) [place] [address] [id number] 03:58:00 Test Item Value Reference Range Comments POC-GLUCOSE (BEAKER) (test 178 mg/dL 70-110 TESTED AT [address] iknr=0116) [place] [address] POCT-CALCIUM [id number] 03:58:00 Test Item Value Reference Range Comments POC-CALCIUM IONIZED (BEAKER) 0.95 mmol/L 1.12-1.27 TESTED AT [address] (test cdyo=2397) [place] [address] [id number] 03:58:00 Test Item Value Reference Range Comments POC-HEMATOCRIT (BEAKER) (test 17 % 40-50 TESTED AT [address] jyae=9442) [place] [address] [id number] 03:58:00 Test Item Value Reference Range Comments POC-HEMOGLOBIN (BEAKER) 5.8 g/dL 13.0-16.8 TESTED AT [facility] [address] [place] [address] (test enka=8192) [facility] [address] AT [facility] [address] [facility] [address] PT/[id number] 03:23:00 Test Item Value Reference Range Comments PROTIME (BEAKER) (test bgkf=614) 17.2 seconds 11.7-14.7 INR (BEAKER) (test omuu=571) 1.4 <=5.9 PARTIAL THROMBOPLASTIN TIME (BEAKER) (test 32.7 seconds 22.5-36.0 ctlg=709) RECOMMENDED COUMADIN/WARFARIN INR THERAPY RANGESSTANDARD DOSE: 2.0 - 3.0 Includes: PROPHYLAXIS forvenous thrombosis, systemic embolization; TREATMENT for venous thrombosis and/or pulmonary embolus.HIGH RISK: Target INR is 2.5-3.5 for patients with mechanical heart valves.PROTHROMBIN [id number] 03:22: 00 Test Item Value Reference Range Comments PROTIME (BEAKER) (test qnud=457) 17.2 seconds 11.7-14.7 INR (BEAKER) (test thta=149) 1.4 <=5.9 RECOMMENDED COUMADIN/WARFARIN INR THERAPY RANGESSTANDARD DOSE: 2.0 - 3.0 Includes: PROPHYLAXIS forvenous thrombosis, systemic embolization; TREATMENT for venous thrombosis and/or pulmonary embolus.HIGH RISK: Target INR is 2.5-3.5 for patients with mechanical heart valves.BASIC METABOLIC [id number] 02:56: 00 Test Item Value Reference Range Comments SODIUM (BEAKER) (test 143 meq/L 136-145 emxk=955) POTASSIUM (BEAKER) (test 3.2 meq/L 3.5-5.1 dkzo=582) CHLORIDE (BEAKER) (test 106 meq/L 98-107 zext=066) CO2 (BEAKER) (test 30 meq/L 22-29 pjbx=747) BLOOD UREA NITROGEN 24 mg/dL 7-21 (BEAKER) (test btyq=677) CREATININE (BEAKER) (test 1.95 mg/dL 0.57-1.25 zmrh=174) GLUCOSE RANDOM (BEAKER) 134 mg/dL 70-105 (test ogcy=184) CALCIUM (BEAKER) (test 8.2 mg/dL 8.4-10.2 cqrf=597) EGFR (BEAKER) (test 36 mL/min/1.73 sq m ESTIMATED GFR IS NOT fgtb=1175) ACCURATE CREATININE CLEARANCE IN PREDICTING GLOMERULAR FILTRATION RATE. ESTIMATED GFR IS NOT APPLICABLE FOR DIALYSIS PATIENTS. POCT-BLOOD GASES, [id number] 02:24:00 Test Item Value Reference Range Comments TEMP, CELSIUS-POC (BEAKER) 36.1 (test pxky=6874) FIO2-POC (BEAKER) (test 32 TESTED AT [place] [address] [address] uatd=2797) [place] [address] PH, VENOUS-POC (BEAKER) 7.432 7.320-7.420 (test pudj=5807) PCO2, VENOUS-POC (BEAKER) 46.6 mm Hg 41.0-51.0 (test wrqf=0769) PO2, VENOUS-POC (BEAKER) 27.0 mm Hg 25.0-40.0 (test cfdw=3796) SO2, VENOUS-POC (BEAKER) 54.0 % 40.0-70.0 (test tjav=4959) HCO3, VENOUS-POC (BEAKER) 31.3 meq/L 21.0-29.0 (test rjky=1448) BASE EXCESS, VENOUS-POC 7.0 meq/L -2.0-3.0 (BEAKER) (test ikqe=9352) [id number] 02:24:00 Test Item Value Reference Range Comments POC-SODIUM (BEAKER) (test 143 meq/L 135-148 TESTED AT [place] [address] [address] dzlb=8908) [place] [id number] 02:24:00 Test Item Value Reference Range Comments POC-POTASSIUM (BEAKER) (test 3.1 meq/L 3.6-5.5 TESTED AT [place] [address] [address] pqyy=0137) [place] [address] [id number] 02:24:00 Test Item Value Reference Range Comments POC-GLUCOSE (BEAKER) (test 134 mg/dL 70-110 TESTED AT [place] [address] [address] lwtr=9877) [place] [address] POCT-CALCIUM [id number] 02:24:00 Test Item Value Reference Range Comments POC-CALCIUM IONIZED (BEAKER) 1.20 mmol/L 1.12-1.27 TESTED AT [address] (test vweu=3063) [place] [address] [id number] 02:24:00 Test Item Value Reference Range Comments POC-HEMATOCRIT (BEAKER) (test 18 % 40-50 TESTED AT [address] ckfy=9462) [place] [address] [id number] 02:24:00 Test Item Value Reference Range Comments POC-HEMOGLOBIN (BEAKER) 6.1 g/dL 13.0-16.8 TESTED AT [address] (test qrsu=3849) [place] [address]TESTED AT [place] [address] POCT-GLUCOSE [id number] 20:58:00 Test Item Value Reference Range Comments POC-GLUCOSE METER (BEAKER) 196 mg/dL 70-110 TESTED AT [address] (test snrw=9001) [place] [address] POCT-GLUCOSE [id number] 17:05:00 Test Item Value Reference Range Comments POC-GLUCOSE METER (BEAKER) 236 mg/dL 70-110 TESTED AT [address] (test kyrq=4293) [place] [address] POCT-GLUCOSE [id number] 12:04:00 Test Item Value Reference Range Comments POC-GLUCOSE METER (BEAKER) 115 mg/dL 70-110 TESTED AT [address] (test hwxo=2085) [place] [address] RAD, CHEST, 1 VIEW, NON [id number] 10:09:00Reason for exam:->to assess for consolidation, pleural effusions, pulmonary edemaShould this be performed at the bedside?->YesFINAL REPORT Chest one view compared to July 09 Discussion: Mild interstitial congestion. No effusion or pneumothorax. Right IJ line in place. Signed: Felicitas Rivera Verified Date/Time: 07/14/2018 10:09:51 Reading Location: [facility] Radiology Reading Room 10 :09 AMBASIC METABOLIC [id number] 08:26:00 Test Item Value Reference Range Comments SODIUM (BEAKER) (test 142 meq/L 136-145 hlyc=454) POTASSIUM (BEAKER) (test 3.6 meq/L 3.5-5.1 luwh=340) CHLORIDE (BEAKER) (test 106 meq/L 98-107 vwwe=985) CO2 (BEAKER) (test 29 meq/L 22-29 uzbe=414) BLOOD UREA NITROGEN 18 mg/dL 7-21 (BEAKER) (test cdez=307) CREATININE (BEAKER) (test 1.46 mg/dL 0.57-1.25 btpv=021) GLUCOSE RANDOM (BEAKER) 99 mg/dL 70-105 (test nwzg=543) CALCIUM (BEAKER) (test 8.3 mg/dL 8.4-10.2 hhzk=287) EGFR (BEAKER) (test 50 mL/min/1.73 sq m ESTIMATED GFR IS NOT iywy=9014) ACCURATE CREATININE CLEARANCE IN PREDICTING GLOMERULAR FILTRATION RATE. ESTIMATED GFR IS NOT APPLICABLE FOR DIALYSIS PATIENTS. BLOOD GAS, [id number] 08:09:00 Test Item Value Reference Range Comments PH VENOUS (BEAKER) (test dtgl=890) 7.41 7.32-7.42 PCO2 VENOUS (BEAKER) (test fltt=122) 45 mmHg 41-51 PO2 VENOUS (BEAKER) (test taly=260) 40 mmHg 25-40 O2 SATURATION VENOUS (BEAKER) (test sghx=797) 75.2 % 40.0-70.0 HCO3 VENOUS (BEAKER) (test indq=100) 28 mmol/L 21-29 BASE EXCESS VENOUS (BEAKER) (test zgsp=810) 3.0 mmol/L -2.0-3.0 PATIENT TEMPERATURE (BEAKER) (test akrk=6142) 37.0 C FIO2 (BEAKER) (test bydp=3269) 36.0 % HEMOGLOBIN AND [id number] 08:07:00 Test Item Value Reference Range Comments HEMOGLOBIN (BEAKER) (test knfy=754) 7.8 GM/DL 13.7-17.5 HEMATOCRIT (BEAKER) (test pjkg=279) 24.4 % 40.1-51.0 POCT-GLUCOSE [id number] 06:12:00 Test Item Value Reference Range Comments POC-GLUCOSE METER (BEAKER) 95 mg/dL 70-110 TESTED AT [facility] [address] (test hjcq=3021) [place] [address] OXYGEN SATURATION, [id number] 05:31:00 Test Item Value Reference Range Comments O2 SATURATION (MEASURED) (BEAKER) (test iyjq=0110) 97.9 % Obtain from CVP portVANCOMYCIN LEVEL, [id number] 05:18:00 Test Item Value Reference Range Comments VANCOMYCIN RANDOM (BEAKER) (test yuko=413) 20.5 ug/mL Reference Range: No NormalsBLOOD GAS, [id number] 05:01:00 Test Item Value Reference Range Comments PH ARTERIAL (BEAKER) (test fjln=433) 7.46 7.35-7.45 PCO2 ARTERIAL (BEAKER) (test nilo=226) 38 mmHg 35-45 PO2 ARTERIAL (BEAKER) (test aozh=054) 119 mmHg 80-90 O2 SATURATION ARTERIAL (BEAKER) (test itni=203) 98.5 % 96.0-97.0 HCO3 ARTERIAL (BEAKER) (test vjee=363) 27 mmol/L 21-29 BASE EXCESS ARTERIAL (BEAKER) (test bome=438) 2.6 mmol/L -2.0-3.0 PATIENT TEMPERATURE (BEAKER) (test qyrk=8998) 37.0 C FIO2 (BEAKER) (test pqys=0430) 32.0 % [id number] 04:55:00 Test Item Value Reference Range Comments MAGNESIUM (BEAKER) (test hxuc=463) 1.9 mg/dL 1.6-2.6 BASIC METABOLIC [id number] 04:55:00 Test Item Value Reference Range Comments SODIUM (BEAKER) (test 142 meq/L 136-145 stdv=864) POTASSIUM (BEAKER) (test 3.6 meq/L 3.5-5.1 kkrz=543) CHLORIDE (BEAKER) (test 107 meq/L 98-107 kjeh=534) CO2 (BEAKER) (test 25 meq/L 22-29 nrbe=062) BLOOD UREA NITROGEN 18 mg/dL 7-21 (BEAKER) (test fayb=204) CREATININE (BEAKER) (test 1.33 mg/dL 0.57-1.25 zrpt=620) GLUCOSE RANDOM (BEAKER) 99 mg/dL 70-105 (test oamo=838) CALCIUM (BEAKER) (test 8.5 mg/dL 8.4-10.2 eidd=910) EGFR (BEAKER) (test 56 mL/min/1.73 sq m ESTIMATED GFR IS NOT zsif=3823) ACCURATE CREATININE CLEARANCE IN PREDICTING GLOMERULAR FILTRATION RATE. ESTIMATED GFR IS NOT APPLICABLE FOR DIALYSIS PATIENTS. HEPATIC FUNCTION [id number] 04:55:00 Test Item Value Reference Range Comments TOTAL PROTEIN (BEAKER) (test zcux=455) 5.1 gm/dL 6.0-8.3 ALBUMIN (BEAKER) (test fekl=9660) 3.0 g/dL 3.5-5.0 BILIRUBIN TOTAL (BEAKER) (test lprm=659) 1.9 mg/dL 0.2-1.2 BILIRUBIN DIRECT (BEAKER) (test kuns=959) 1.4 mg/dL 0.1-0.5 ALKALINE PHOSPHATASE (BEAKER) (test gjdx=098) 148 U/L 40-150 AST (SGOT) (BEAKER) (test xnnz=310) 53 U/L 5-34 ALT (SGPT) (BEAKER) (test prli=175) 35 U/L 6-55 PROTHROMBIN [id number] 04:28:00 Test Item Value Reference Range Comments PROTIME (BEAKER) (test udlz=152) 17.3 seconds 11.7-14.7 INR (BEAKER) (test zfcy=004) 1.4 <=5.9 RECOMMENDED COUMADIN/WARFARIN INR THERAPY RANGESSTANDARD DOSE: 2.0 - 3.0 Includes: PROPHYLAXIS forvenous thrombosis, systemic embolization; TREATMENT for venous thrombosis and/or pulmonary embolus.HIGH RISK: Target INR is 2.5-3.5 for patients with mechanical heart valves.HEMOGLOBIN AND [id number] 04 :22:00 Test Item Value Reference Range Comments HEMOGLOBIN (BEAKER) (test adbr=523) 8.2 GM/DL 13.7-17.5 HEMATOCRIT (BEAKER) (test potu=375) 25.7 % 40.1-51.0 POCT-GLUCOSE [id number] 00:22:00 Test Item Value Reference Range Comments POC-GLUCOSE METER (BEAKER) 96 mg/dL 70-110 [address] (test eexk=9185) [facility] [address] HEMOGLOBIN AND [id number] 21:02:00 Test Item Value Reference Range Comments HEMOGLOBIN (BEAKER) (test lwhl=037) 8.5 GM/DL 13.7-17.5 HEMATOCRIT (BEAKER) (test zwmo=813) 26.1 % 40.1-51.0 POCT-GLUCOSE [id number] 17:53:00 Test Item Value Reference Range Comments POC-GLUCOSE METER (BEAKER) 123 mg/dL 70-110 TESTED AT [facility] [address] [facility] (test dark=6761) [facility] [address] [id number] 16:37:00 Test Item Value Reference Range Comments MAGNESIUM (BEAKER) (test pknt=575) 2.1 mg/dL 1.6-2.6 BASIC METABOLIC [id number] 16:37:00 Test Item Value Reference Range Comments SODIUM (BEAKER) (test 142 meq/L 136-145 ckeq=022) POTASSIUM (BEAKER) (test 3.7 meq/L 3.5-5.1 zuxe=428) CHLORIDE (BEAKER) (test 108 meq/L 98-107 ycqp=275) CO2 (BEAKER) (test 23 meq/L 22-29 tokr=230) BLOOD UREA NITROGEN 30 mg/dL 7-21 (BEAKER) (test osea=774) CREATININE (BEAKER) (test 1.77 mg/dL 0.57-1.25 mjnx=104) GLUCOSE RANDOM (BEAKER) 122 mg/dL 70-105 (test fnye=563) CALCIUM (BEAKER) (test 8.5 mg/dL 8.4-10.2 nhuh=548) EGFR (BEAKER) (test 40 mL/min/1.73 sq m ESTIMATED GFR IS NOT ektr=8665) ACCURATE CREATININE CLEARANCE IN PREDICTING GLOMERULAR FILTRATION RATE. ESTIMATED GFR IS NOT APPLICABLE FOR DIALYSIS PATIENTS. HEPATITIS B [id number] 13:03:00 Test Item Value Reference Range Comments HEPATITIS B CORE TOTAL ANTIBODY (BEAKER) (test Nonreactive Nonreactive crrh=139) HEPATITIS B SURFACE ANTIBODY (BEAKER) (test 14.4 mIU/mL <8.0 fehe=038) HEPATITIS B SURFACE ANTIGEN (2) (BEAKER) (test Nonreactive Nonreactive lufk=9477) POCT-GLUCOSE [id number] 12:24:00 Test Item Value Reference Range Comments POC-GLUCOSE METER (BEAKER) 123 mg/dL 70-110 TESTED AT [address] (test nsfa=0772) [facility] [address] HEMOGLOBIN AND [id number] 12:07:00 Test Item Value Reference Range Comments HEMOGLOBIN (BEAKER) (test dyhk=596) 8.1 GM/DL 13.7-17.5 HEMATOCRIT (BEAKER) (test suvp=022) 25.2 % 40.1-51.0 BLOOD GAS, [id number] 09:34:00 Test Item Value Reference Range Comments PH ARTERIAL (BEAKER) (test hvhp=582) 7.46 7.35-7.45 PCO2 ARTERIAL (BEAKER) (test fsgb=305) 36 mmHg 35-45 PO2 ARTERIAL (BEAKER) (test tamb=102) 65 mmHg 80-90 O2 SATURATION ARTERIAL (BEAKER) (test kvzg=444) 93.8 % 96.0-97.0 HCO3 ARTERIAL (BEAKER) (test lymf=425) 25 mmol/L 21-29 BASE EXCESS ARTERIAL (BEAKER) (test zqmd=371) 1.0 mmol/L -2.0-3.0 PATIENT TEMPERATURE (BEAKER) (test vdhn=6447) 37.0 C FIO2 (BEAKER) (test uhah=3533) 21.0 % POCT-GLUCOSE [id number] 06:31:00 Test Item Value Reference Range Comments POC-GLUCOSE METER (BEAKER) 123 mg/dL 70-110 TESTED AT [address] (test drdj=7958) [place] [id number] CALCIUM, [id number] 04:56:00 Test Item Value Reference Range Comments CALCIUM IONIZED (BEAKER) (test mdxh=161) 1.17 mmol/L 1.12-1.27 PH, BLOOD (BEAKER) (test zrps=3290) 7.41 OXYGEN SATURATION, [id number] 04:55:00 Test Item Value Reference Range Comments O2 SATURATION (MEASURED) (BEAKER) (test hynp=0041) 84.2 % Obtain from CVP [id number] 04:31:00 Test Item Value Reference Range Comments POTASSIUM (BEAKER) (test znzc=411) 3.9 meq/L 3.5-5.1 [id number] 04:31:00 Test Item Value Reference Range Comments MAGNESIUM (BEAKER) (test gjed=831) 2.2 mg/dL 1.6-2.6 [id number] 04:31:00 Test Item Value Reference Range Comments SODIUM (BEAKER) (test zdtr=487) 140 meq/L 136-145 HEPATIC FUNCTION [id number] 04:31:00 Test Item Value Reference Range Comments TOTAL PROTEIN (BEAKER) (test ajdc=804) 5.0 gm/dL 6.0-8.3 ALBUMIN (BEAKER) (test ptgv=1937) 2.9 g/dL 3.5-5.0 BILIRUBIN TOTAL (BEAKER) (test ulay=330) 1.7 mg/dL 0.2-1.2 BILIRUBIN DIRECT (BEAKER) (test sdum=606) 1.3 mg/dL 0.1-0.5 ALKALINE PHOSPHATASE (BEAKER) (test tyio=291) 120 U/L 40-150 AST (SGOT) (BEAKER) (test ysvw=911) 51 U/L 5-34 ALT (SGPT) (BEAKER) (test azfe=542) 32 U/L 6-55 PROTHROMBIN [id number] 04:24:00 Test Item Value Reference Range Comments PROTIME (BEAKER) (test pfdu=289) 18.0 seconds 11.7-14.7 INR (BEAKER) (test jsav=895) 1.5 <=5.9 RECOMMENDED COUMADIN/WARFARIN INR THERAPY RANGESSTANDARD DOSE: 2.0 - 3.0 Includes: PROPHYLAXIS forvenous thrombosis, systemic embolization; TREATMENT for venous thrombosis and/or pulmonary embolus.HIGH RISK: Target INR is 2.5-3.5 for patients with mechanical heart valves.CBC W/PLT COUNT & AUTO [id number] 04:14:00 Test Item Value Reference Range Comments WHITE BLOOD CELL COUNT (BEAKER) (test wxmm=380) 13.2 K/ L 3.5-10.5 RED BLOOD CELL COUNT (BEAKER) (test awkb=956) 2.79 M/ L 4.63-6.08 HEMOGLOBIN (BEAKER) (test lruu=474) 8.2 GM/DL 13.7-17.5 HEMATOCRIT (BEAKER) (test blmo=068) 25.4 % 40.1-51.0 MEAN CORPUSCULAR VOLUME (BEAKER) (test qagb=442) 91.0 fL 79.0-92.2 MEAN CORPUSCULAR HEMOGLOBIN (BEAKER) (test 29.4 pg 25.7-32.2 yfzi=520) MEAN CORPUSCULAR HEMOGLOBIN CONC (BEAKER) (test 32.3 GM/DL 32.3-36.5 jmli=594) RED CELL DISTRIBUTION WIDTH (BEAKER) (test 14.9 % 11.6-14.4 wwnz=412) PLATELET COUNT (BEAKER) (test vlyn=007) 93 K/CU MM 150-450 MEAN PLATELET VOLUME (BEAKER) (test rglb=235) 10.7 fL 9.4-12.4 NUCLEATED RED BLOOD CELLS (BEAKER) (test 0 /100 WBC 0-0 aruq=317) NEUTROPHILS RELATIVE PERCENT (BEAKER) (test 81 % mvxj=724) LYMPHOCYTES RELATIVE PERCENT (BEAKER) (test 7 % hext=168) MONOCYTES RELATIVE PERCENT (BEAKER) (test 10 % lqvv=988) EOSINOPHILS RELATIVE PERCENT (BEAKER) (test 0 % qwuf=032) BASOPHILS RELATIVE PERCENT (BEAKER) (test 0 % pgqw=574) NEUTROPHILS ABSOLUTE COUNT (BEAKER) (test 10.67 K/ L 1.78-5.38 xxhd=686) LYMPHOCYTES ABSOLUTE COUNT (BEAKER) (test 0.96 K/ L 1.32-3.57 ycbo=061) MONOCYTES ABSOLUTE COUNT (BEAKER) (test lzfe=825) 1.25 K/ L 0.30-0.82 EOSINOPHILS ABSOLUTE COUNT (BEAKER) (test 0.03 K/ L 0.04-0.54 idtp=450) BASOPHILS ABSOLUTE COUNT (BEAKER) (test obey=919) 0.02 K/ L 0.01-0.08 IMMATURE GRANULOCYTES-RELATIVE PERCENT (BEAKER) 2 % 0-1 (test ifzw=5530) [id number] 02:44:00 Test Item Value Reference Range Comments POTASSIUM (BEAKER) (test tuhe=065) 3.4 meq/L 3.5-5.1 HEMOGLOBIN AND [id number] 02:33:00 Test Item Value Reference Range Comments HEMOGLOBIN (BEAKER) (test okyi=179) 8.3 GM/DL 13.7-17.5 HEMATOCRIT (BEAKER) (test pwzy=674) 25.6 % 40.1-51.0 POCT-GLUCOSE [id number] 00:56:00 Test Item Value Reference Range Comments POC-GLUCOSE METER (BEAKER) 104 mg/dL 70-110 TESTED AT [facility] [address] [facility] (test sqvg=9940) [facility] [address] BASIC METABOLIC [id number] 23:41:00 Test Item Value Reference Range Comments SODIUM (BEAKER) (test 139 meq/L 136-145 jwud=724) POTASSIUM (BEAKER) (test 4.0 meq/L 3.5-5.1 qmbp=096) CHLORIDE (BEAKER) (test 105 meq/L 98-107 ucqs=691) CO2 (BEAKER) (test 23 meq/L 22-29 dexe=701) BLOOD UREA NITROGEN 22 mg/dL 7-21 (BEAKER) (test ylig=886) CREATININE (BEAKER) (test 1.32 mg/dL 0.57-1.25 waqs=007) GLUCOSE RANDOM (BEAKER) 99 mg/dL 70-105 (test klst=632) CALCIUM (BEAKER) (test 8.6 mg/dL 8.4-10.2 cxyt=480) EGFR (BEAKER) (test 56 mL/min/1.73 sq m ESTIMATED GFR IS NOT dzst=5054) ACCURATE CREATININE CLEARANCE IN PREDICTING GLOMERULAR FILTRATION RATE. ESTIMATED GFR IS NOT APPLICABLE FOR DIALYSIS PATIENTS. [id number] 18:36:00 Test Item Value Reference Range Comments POTASSIUM (BEAKER) (test jzzq=627) 3.9 meq/L 3.5-5.1 [id number] 18:36:00 Test Item Value Reference Range Comments MAGNESIUM (BEAKER) (test pwqj=575) 1.9 mg/dL 1.6-2.6 [id number] 18:36:00 Test Item Value Reference Range Comments PHOSPHORUS (BEAKER) (test cvwr=927) 3.5 mg/dL 2.3-4.7 [id number] 18:36:00 Test Item Value Reference Range Comments SODIUM (BEAKER) (test mqbu=250) 139 meq/L 136-145 BASIC METABOLIC [id number] 18:36:00 Test Item Value Reference Range Comments SODIUM (BEAKER) (test 139 meq/L 136-145 qtwo=527) POTASSIUM (BEAKER) (test 3.9 meq/L 3.5-5.1 hebd=937) CHLORIDE (BEAKER) (test 104 meq/L 98-107 njmy=961) CO2 (BEAKER) (test 24 meq/L 22-29 aulh=545) BLOOD UREA NITROGEN 24 mg/dL 7-21 (BEAKER) (test ptup=000) CREATININE (BEAKER) (test 1.33 mg/dL 0.57-1.25 awdr=924) GLUCOSE RANDOM (BEAKER) 110 mg/dL 70-105 (test tgrh=341) CALCIUM (BEAKER) (test 8.5 mg/dL 8.4-10.2 ktep=921) EGFR (BEAKER) (test 56 mL/min/1.73 sq m ESTIMATED GFR IS NOT ajyg=5072) ACCURATE CREATININE CLEARANCE IN PREDICTING GLOMERULAR FILTRATION RATE. ESTIMATED GFR IS NOT APPLICABLE FOR DIALYSIS PATIENTS. PH, [id number] 18:28:00 Test Item Value Reference Range Comments PH ARTERIAL (BEAKER) (test pgkz=494) 7.44 7.35-7.45 CALCIUM, [id number] 18:28:00 Test Item Value Reference Range Comments CALCIUM IONIZED (BEAKER) (test guel=932) 1.16 mmol/L 1.12-1.27 PH, BLOOD (BEAKER) (test ckxp=4853) 7.44 HEMOGLOBIN AND [id number] 18:21:00 Test Item Value Reference Range Comments HEMOGLOBIN (BEAKER) (test amrw=840) 8.6 GM/DL 13.7-17.5 HEMATOCRIT (BEAKER) (test kwlz=633) 26.2 % 40.1-51.0 POCT-GLUCOSE [id number] 17:47:00 Test Item Value Reference Range Comments POC-GLUCOSE METER (BEAKER) 114 mg/dL 70-110 TESTED AT [facility] [address] [facility] (test dgwq=9527) [facility] [address] [id number] 14:40:00 Test Item Value Reference Range Comments PROCALCITONIN (BEAKER) (test jffy=2231) 0.65 ng/mL <0.05 SEPSIS RISK (ng/mL)Low: 0.05-0.50Intermediate: 0.51-2.00High: & gt;=[id number] 13:50:00 Test Item Value Reference Range Comments POTASSIUM (BEAKER) (test lxpa=148) 4.1 meq/L 3.5-5.1 BASIC METABOLIC [id number] 13:50:00 Test Item Value Reference Range Comments SODIUM (BEAKER) (test 139 meq/L 136-145 vxua=246) POTASSIUM (BEAKER) (test 4.1 meq/L 3.5-5.1 xiuu=042) CHLORIDE (BEAKER) (test 104 meq/L 98-107 nhos=502) CO2 (BEAKER) (test 24 meq/L 22-29 fref=439) BLOOD UREA NITROGEN 24 mg/dL 7-21 (BEAKER) (test lqxa=220) CREATININE (BEAKER) (test 1.32 mg/dL 0.57-1.25 jjex=428) GLUCOSE RANDOM (BEAKER) 124 mg/dL 70-105 (test lfjd=954) CALCIUM (BEAKER) (test 8.6 mg/dL 8.4-10.2 pjyr=929) EGFR (BEAKER) (test 56 mL/min/1.73 sq m ESTIMATED GFR IS NOT wwbe=5037) ACCURATE CREATININE CLEARANCE IN PREDICTING GLOMERULAR FILTRATION RATE. ESTIMATED GFR IS NOT APPLICABLE FOR DIALYSIS PATIENTS. VANCOMYCIN LEVEL, [id number] 13:49:00 Test Item Value Reference Range Comments VANCOMYCIN TROUGH (BEAKER) (test pxaw=378) 16.0 ug/mL 10.0-20.0 CALCIUM, [id number] 13:32:00 Test Item Value Reference Range Comments CALCIUM IONIZED (BEAKER) (test simb=069) 1.17 mmol/L 1.12-1.27 PH, BLOOD (BEAKER) (test rffk=5915) 7.45 POCT-GLUCOSE [id number] 13:32:00 Test Item Value Reference Range Comments POC-GLUCOSE METER (BEAKER) 151 mg/dL 70-110 TESTED AT [facility] [address] [facility] (test jdbv=9771) [facility] [address] BLOOD GAS, [id number] 10:06:00 Test Item Value Reference Range Comments PH ARTERIAL (BEAKER) (test dsro=575) 7.46 7.35-7.45 PCO2 ARTERIAL (BEAKER) (test xycz=327) 36 mmHg 35-45 PO2 ARTERIAL (BEAKER) (test wpuh=775) 110 mmHg 80-90 O2 SATURATION ARTERIAL (BEAKER) (test hrnp=198) 98.3 % 96.0-97.0 HCO3 ARTERIAL (BEAKER) (test twgy=734) 25 mmol/L 21-29 BASE EXCESS ARTERIAL (BEAKER) (test bjnk=222) 0.8 mmol/L -2.0-3.0 PATIENT TEMPERATURE (BEAKER) (test sdnd=0899) 36.7 C FIO2 (BEAKER) (test tkqg=8691) 28.0 % [id number] 08:56:00 Test Item Value Reference Range Comments POTASSIUM (BEAKER) (test sijo=976) 4.2 meq/L 3.5-5.1 BASIC METABOLIC [id number] 08:56:00 Test Item Value Reference Range Comments SODIUM (BEAKER) (test 138 meq/L 136-145 llve=417) POTASSIUM (BEAKER) (test 4.2 meq/L 3.5-5.1 qfoz=417) CHLORIDE (BEAKER) (test 104 meq/L 98-107 zwzn=887) CO2 (BEAKER) (test 24 meq/L 22-29 dhrh=513) BLOOD UREA NITROGEN 24 mg/dL 7-21 (BEAKER) (test tilp=093) CREATININE (BEAKER) (test 1.35 mg/dL 0.57-1.25 azfl=773) GLUCOSE RANDOM (BEAKER) 129 mg/dL 70-105 (test hwnh=426) CALCIUM (BEAKER) (test 8.5 mg/dL 8.4-10.2 hacp=428) EGFR (BEAKER) (test 55 mL/min/1.73 sq m ESTIMATED GFR IS NOT bsnq=8018) ACCURATE CREATININE CLEARANCE IN PREDICTING GLOMERULAR FILTRATION RATE. ESTIMATED GFR IS NOT APPLICABLE FOR DIALYSIS PATIENTS. HEMOGLOBIN AND [id number] 08:38:00 Test Item Value Reference Range Comments HEMOGLOBIN (BEAKER) (test dzep=850) 7.9 GM/DL 13.7-17.5 HEMATOCRIT (BEAKER) (test xpti=301) 23.9 % 40.1-51.0 BLOOD [id number] 06:00:00 Test Item Value Reference Range Comments CULTURE (BEAKER) (test ewff=1470) No growth in 5 days BLOOD [id number] 06:00:00 Test Item Value Reference Range Comments CULTURE (BEAKER) (test hwfl=6706) No growth in 5 days POCT-GLUCOSE [id number] 05:29:00 Test Item Value Reference Range Comments POC-GLUCOSE METER (BEAKER) 118 mg/dL 70-110 TESTED AT [facility] [address] [facility] (test gbve=7812) [facility] [address] CALCIUM, [id number] 04:13:00 Test Item Value Reference Range Comments CALCIUM IONIZED (BEAKER) (test zsoq=088) 1.18 mmol/L 1.12-1.27 PH, BLOOD (BEAKER) (test cypw=1056) 7.47 [id number] 04:13:00 Test Item Value Reference Range Comments POTASSIUM (BEAKER) (test hnrc=968) 4.4 meq/L 3.5-5.1 [id number] 04:13:00 Test Item Value Reference Range Comments MAGNESIUM (BEAKER) (test itlt=057) 1.9 mg/dL 1.6-2.6 [id number] 04:13:00 Test Item Value Reference Range Comments PHOSPHORUS (BEAKER) (test hbnc=519) 2.9 mg/dL 2.3-4.7 [id number] 04:13:00 Test Item Value Reference Range Comments SODIUM (BEAKER) (test yjqg=091) 140 meq/L 136-145 HEPATIC FUNCTION [id number] 04:13:00 Test Item Value Reference Range Comments TOTAL PROTEIN (BEAKER) (test xjae=232) 5.0 gm/dL 6.0-8.3 ALBUMIN (BEAKER) (test nmft=1683) 2.9 g/dL 3.5-5.0 BILIRUBIN TOTAL (BEAKER) (test mpvk=801) 1.8 mg/dL 0.2-1.2 BILIRUBIN DIRECT (BEAKER) (test eisv=757) 1.3 mg/dL 0.1-0.5 ALKALINE PHOSPHATASE (BEAKER) (test vykt=810) 115 U/L 40-150 AST (SGOT) (BEAKER) (test tirg=520) 57 U/L 5-34 ALT (SGPT) (BEAKER) (test ycdi=852) 31 U/L 6-55 PROTHROMBIN [id number] 04:12:00 Test Item Value Reference Range Comments PROTIME (BEAKER) (test oxzd=323) 15.8 seconds 11.7-14.7 INR (BEAKER) (test axzx=328) 1.3 <=5.9 RECOMMENDED COUMADIN/WARFARIN INR THERAPY RANGESSTANDARD DOSE: 2.0 - 3.0 Includes: PROPHYLAXIS forvenous thrombosis, systemic embolization; TREATMENT for venous thrombosis and/or pulmonary embolus.HIGH RISK: Target INR is 2.5-3.5 for patients with mechanical heart valves.CBC W/PLT COUNT & AUTO [id number] 04:01:00 Test Item Value Reference Range Comments WHITE BLOOD CELL COUNT (BEAKER) (test xqmc=293) 14.9 K/ L 3.5-10.5 RED BLOOD CELL COUNT (BEAKER) (test gzho=114) 2.76 M/ L 4.63-6.08 HEMOGLOBIN (BEAKER) (test syaa=648) 8.0 GM/DL 13.7-17.5 HEMATOCRIT (BEAKER) (test kqsc=708) 24.9 % 40.1-51.0 MEAN CORPUSCULAR VOLUME (BEAKER) (test fyrc=564) 90.2 fL 79.0-92.2 MEAN CORPUSCULAR HEMOGLOBIN (BEAKER) (test 29.0 pg 25.7-32.2 wdbx=577) MEAN CORPUSCULAR HEMOGLOBIN CONC (BEAKER) (test 32.1 GM/DL 32.3-36.5 fina=877) RED CELL DISTRIBUTION WIDTH (BEAKER) (test 14.9 % 11.6-14.4 anqa=299) PLATELET COUNT (BEAKER) (test odmw=793) 70 K/CU MM 150-450 MEAN PLATELET VOLUME (BEAKER) (test dvbp=907) 11.5 fL 9.4-12.4 NUCLEATED RED BLOOD CELLS (BEAKER) (test 0 /100 WBC 0-0 rygs=943) NEUTROPHILS RELATIVE PERCENT (BEAKER) (test 86 % axvf=516) LYMPHOCYTES RELATIVE PERCENT (BEAKER) (test 6 % ilwx=114) MONOCYTES RELATIVE PERCENT (BEAKER) (test 7 % fprk=985) EOSINOPHILS RELATIVE PERCENT (BEAKER) (test 0 % rmya=282) BASOPHILS RELATIVE PERCENT (BEAKER) (test 0 % aoot=103) NEUTROPHILS ABSOLUTE COUNT (BEAKER) (test 12.77 K/ L 1.78-5.38 mvyq=116) LYMPHOCYTES ABSOLUTE COUNT (BEAKER) (test 0.87 K/ L 1.32-3.57 spap=781) MONOCYTES ABSOLUTE COUNT (BEAKER) (test vvmu=321) 1.02 K/ L 0.30-0.82 EOSINOPHILS ABSOLUTE COUNT (BEAKER) (test 0.01 K/ L 0.04-0.54 eazz=365) BASOPHILS ABSOLUTE COUNT (BEAKER) (test cqhk=987) 0.02 K/ L 0.01-0.08 IMMATURE GRANULOCYTES-RELATIVE PERCENT (BEAKER) 1 % 0-1 (test ezfo=8617) POCT-GLUCOSE [id number] 00:06:00 Test Item Value Reference Range Comments POC-GLUCOSE METER (BEAKER) 81 mg/dL 70-110 TESTED AT [facility] [address] [facility] (test dxpt=7809) [facility] [address] HEMOGLOBIN AND [id number] 23:58:00 Test Item Value Reference Range Comments HEMOGLOBIN (BEAKER) (test bdgy=019) 8.0 GM/DL 13.7-17.5 HEMATOCRIT (BEAKER) (test wzfk=911) 24.2 % 40.1-51.0 [id number] 21:58:00 Test Item Value Reference Range Comments POTASSIUM (BEAKER) (test hpbg=018) 4.2 meq/L 3.5-5.1 BASIC METABOLIC [id number] 21:58:00 Test Item Value Reference Range Comments SODIUM (BEAKER) (test 139 meq/L 136-145 kgfa=138) POTASSIUM (BEAKER) (test 4.2 meq/L 3.5-5.1 bjil=406) CHLORIDE (BEAKER) (test 107 meq/L 98-107 urjy=784) CO2 (BEAKER) (test 24 meq/L 22-29 wxfw=914) BLOOD UREA NITROGEN 23 mg/dL 7-21 (BEAKER) (test xcbh=446) CREATININE (BEAKER) (test 1.40 mg/dL 0.57-1.25 euct=540) GLUCOSE RANDOM (BEAKER) 97 mg/dL 70-105 (test jifx=659) CALCIUM (BEAKER) (test 8.3 mg/dL 8.4-10.2 svpb=683) EGFR (BEAKER) (test 52 mL/min/1.73 sq m ESTIMATED GFR IS NOT nojz=2022) ACCURATE CREATININE CLEARANCE IN PREDICTING GLOMERULAR FILTRATION RATE. ESTIMATED GFR IS NOT APPLICABLE FOR DIALYSIS PATIENTS. CALCIUM, [id number] 21:53:00 Test Item Value Reference Range Comments CALCIUM IONIZED (BEAKER) (test cmud=792) 1.18 mmol/L 1.12-1.27 PH, BLOOD (BEAKER) (test snwz=2759) 7.48 [id number] 18:52:00 Test Item Value Reference Range Comments LIPASE (BEAKER) (test uvce=222) 57 U/L 8-78 [id number] 18:35:00 Test Item Value Reference Range Comments POTASSIUM (BEAKER) (test xjuc=055) 4.5 meq/L 3.5-5.1 [id number] 18:35:00 Test Item Value Reference Range Comments MAGNESIUM (BEAKER) (test hyvs=278) 1.9 mg/dL 1.6-2.6 [id number] 18:35:00 Test Item Value Reference Range Comments PHOSPHORUS (BEAKER) (test owjq=318) 3.1 mg/dL 2.3-4.7 [id number] 18:35:00 Test Item Value Reference Range Comments SODIUM (BEAKER) (test hmxw=300) 140 meq/L 136-145 BASIC METABOLIC [id number] 18:35:00 Test Item Value Reference Range Comments SODIUM (BEAKER) (test 140 meq/L 136-145 dbep=683) POTASSIUM (BEAKER) (test 4.5 meq/L 3.5-5.1 qaxt=589) CHLORIDE (BEAKER) (test 106 meq/L 98-107 fkdk=355) CO2 (BEAKER) (test 24 meq/L 22-29 tcdp=315) BLOOD UREA NITROGEN 25 mg/dL 7-21 (BEAKER) (test jimu=249) CREATININE (BEAKER) (test 1.46 mg/dL 0.57-1.25 ajtb=794) GLUCOSE RANDOM (BEAKER) 122 mg/dL 70-105 (test cbul=375) CALCIUM (BEAKER) (test 8.4 mg/dL 8.4-10.2 xzux=918) EGFR (BEAKER) (test 50 mL/min/1.73 sq m ESTIMATED GFR IS NOT zcsj=4613) ACCURATE CREATININE CLEARANCE IN PREDICTING GLOMERULAR FILTRATION RATE. ESTIMATED GFR IS NOT APPLICABLE FOR DIALYSIS PATIENTS. HEMOGLOBIN AND [id number] 18:16:00 Test Item Value Reference Range Comments HEMOGLOBIN (BEAKER) (test xckq=566) 7.7 GM/DL 13.7-17.5 HEMATOCRIT (BEAKER) (test uheh=804) 23.7 % 40.1-51.0 PH, [id number] 18:07:00 Test Item Value Reference Range Comments PH ARTERIAL (BEAKER) (test jhyh=835) 7.47 7.35-7.45 POCT-GLUCOSE [id number] 17:24:00 Test Item Value Reference Range Comments POC-GLUCOSE METER (BEAKER) 151 mg/dL 70-110 TESTED AT [address] (test pvnb=0637) [place] [address] [id number] 12:50:00 Test Item Value Reference Range Comments POTASSIUM (BEAKER) (test face=754) 5.1 meq/L 3.5-5.1 CALCIUM, [id number] 12:37:00 Test Item Value Reference Range Comments CALCIUM IONIZED (BEAKER) (test rxxr=597) 1.15 mmol/L 1.12-1.27 PH, BLOOD (BEAKER) (test ogew=4572) 7.46 HEMOGLOBIN AND [id number] 12:32:00 Test Item Value Reference Range Comments HEMOGLOBIN (BEAKER) (test tque=352) 8.0 GM/DL 13.7-17.5 HEMATOCRIT (BEAKER) (test mocd=386) 24.5 % 40.1-51.0 POCT-GLUCOSE [id number] 12:04:00 Test Item Value Reference Range Comments POC-GLUCOSE METER (BEAKER) 191 mg/dL 70-110 TESTED AT [address] (test pikm=7102) [place] [address] [id number] 09:30:00 Test Item Value Reference Range Comments POTASSIUM (BEAKER) (test wlhu=252) 4.9 meq/L 3.5-5.1 [id number] 09:28:00 Test Item Value Reference Range Comments PARTIAL THROMBOPLASTIN TIME (BEAKER) (test 33.3 seconds 22.5-36.0 rsuw=539) PROTHROMBIN [id number] 09:27:00 Test Item Value Reference Range Comments PROTIME (BEAKER) (test otmz=835) 15.6 seconds 11.7-14.7 INR (BEAKER) (test nnui=372) 1.2 <=5.9 RECOMMENDED COUMADIN/WARFARIN INR THERAPY RANGESSTANDARD DOSE: 2.0 - 3.0 Includes: PROPHYLAXIS forvenous thrombosis, systemic embolization; TREATMENT for venous thrombosis and/or pulmonary embolus.HIGH RISK: Target INR is 2.5-3.5 for patients with mechanical heart valves.[id number] 09:22:00 Test Item Value Reference Range Comments POTASSIUM (BEAKER) (test vwce=108) 4.9 meq/L 3.5-5.1 [id number] 09:22:00 Test Item Value Reference Range Comments MAGNESIUM (BEAKER) (test vjge=458) 2.1 mg/dL 1.6-2.6 [id number] 09:22:00 Test Item Value Reference Range Comments PHOSPHORUS (BEAKER) (test ztgq=871) 3.6 mg/dL 2.3-4.7 [id number] 09:22:00 Test Item Value Reference Range Comments SODIUM (BEAKER) (test skhj=627) 140 meq/L 136-145 BASIC METABOLIC [id number] 09:22:00 Test Item Value Reference Range Comments SODIUM (BEAKER) (test 140 meq/L 136-145 thca=427) POTASSIUM (BEAKER) (test 4.9 meq/L 3.5-5.1 giab=776) CHLORIDE (BEAKER) (test 106 meq/L 98-107 rhed=330) CO2 (BEAKER) (test 21 meq/L 22-29 vaqz=300) BLOOD UREA NITROGEN 24 mg/dL 7-21 (BEAKER) (test peit=181) CREATININE (BEAKER) (test 1.56 mg/dL 0.57-1.25 mvgj=351) GLUCOSE RANDOM (BEAKER) 147 mg/dL 70-105 (test yvsz=147) CALCIUM (BEAKER) (test 8.4 mg/dL 8.4-10.2 deqm=584) EGFR (BEAKER) (test 46 mL/min/1.73 sq m ESTIMATED GFR IS NOT qlyn=1209) ACCURATE CREATININE CLEARANCE IN PREDICTING GLOMERULAR FILTRATION RATE. ESTIMATED GFR IS NOT APPLICABLE FOR DIALYSIS PATIENTS. HEPATIC FUNCTION [id number] 09:22:00 Test Item Value Reference Range Comments TOTAL PROTEIN (BEAKER) (test qwxy=394) 4.7 gm/dL 6.0-8.3 ALBUMIN (BEAKER) (test owjd=7039) 2.7 g/dL 3.5-5.0 BILIRUBIN TOTAL (BEAKER) (test ykzj=152) 1.8 mg/dL 0.2-1.2 BILIRUBIN DIRECT (BEAKER) (test ndap=736) 1.3 mg/dL 0.1-0.5 ALKALINE PHOSPHATASE (BEAKER) (test wthy=609) 112 U/L 40-150 AST (SGOT) (BEAKER) (test mopk=154) 69 U/L 5-34 ALT (SGPT) (BEAKER) (test ivvs=409) 33 U/L 6-55 SPUTUM CULTURE + GRAM [id number] 08:37:00 Test Item Value Reference Range Comments CULTURE (BEAKER) (test Organism(s) under loxy=2075) evaluation Clindamycin (test code=10) Erythromycin (test code=4) Linezolid (test code=40) Nitrofurantoin (test code=23) Oxacillin (test code=14) Rifampin (test code=43) Tetracycline (test code=2) Trimethoprim + Sulfamethoxazole (test code=47) Vancomycin (test code=13) CULTURE (BEAKER) (test <1+ Staphylococcus byfe=9449) aureus GRAM STAIN RESULT (BEAKER) 1+ WBCs (test xoll=2155) GRAM STAIN RESULT (BEAKER) 0-5 epithelial cells (test weed=016310) GRAM STAIN RESULT (BEAKER) No organisms seen (test anvm=719249) POCT-GLUCOSE [id number] 06:55:00 Test Item Value Reference Range Comments POC-GLUCOSE METER (BEAKER) 153 mg/dL 70-110 TESTED AT [facility] [address] (test dydb=9647) [place] [address] [id number] 06:01:00 Test Item Value Reference Range Comments PROTIME (BEAKER) (test ruvs=651) 15.4 seconds 11.7-14.7 INR (BEAKER) (test nknd=161) 1.2 <=5.9 PARTIAL THROMBOPLASTIN TIME (BEAKER) (test 34.0 seconds 22.5-36.0 ovst=761) RECOMMENDED COUMADIN/WARFARIN INR THERAPY RANGESSTANDARD DOSE: 2.0 - 3.0 Includes: PROPHYLAXIS forvenous thrombosis, systemic embolization; TREATMENT for venous thrombosis and/or pulmonary embolus.HIGH RISK: Target INR is 2.5-3.5 for patients with mechanical heart valves.OXYGEN SATURATION, [id number] 06:01:00 Test Item Value Reference Range Comments O2 SATURATION (MEASURED) (BEAKER) (test wegp=0247) 85.1 % Obtain from CVP portCALCIUM, [id number] 06:01:00 Test Item Value Reference Range Comments CALCIUM IONIZED (BEAKER) (test ldbm=881) 1.13 mmol/L 1.12-1.27 PH, BLOOD (BEAKER) (test gbsz=3024) 7.41 CBC W/PLT COUNT & AUTO [id number] 05:43:00 Test Item Value Reference Range Comments WHITE BLOOD CELL COUNT (BEAKER) (test xdms=381) 15.8 K/ L 3.5-10.5 RED BLOOD CELL COUNT (BEAKER) (test jrhi=761) 2.64 M/ L 4.63-6.08 HEMOGLOBIN (BEAKER) (test moqg=762) 7.7 GM/DL 13.7-17.5 HEMATOCRIT (BEAKER) (test kpgt=874) 23.6 % 40.1-51.0 MEAN CORPUSCULAR VOLUME (BEAKER) (test yqpb=540) 89.4 fL 79.0-92.2 MEAN CORPUSCULAR HEMOGLOBIN (BEAKER) (test 29.2 pg 25.7-32.2 atsn=709) MEAN CORPUSCULAR HEMOGLOBIN CONC (BEAKER) (test 32.6 GM/DL 32.3-36.5 txnh=604) RED CELL DISTRIBUTION WIDTH (BEAKER) (test 15.1 % 11.6-14.4 fvzf=367) PLATELET COUNT (BEAKER) (test gaxq=791) 72 K/CU MM 150-450 MEAN PLATELET VOLUME (BEAKER) (test niqc=487) 12.1 fL 9.4-12.4 NUCLEATED RED BLOOD CELLS (BEAKER) (test 1 /100 WBC 0-0 ecfc=058) NEUTROPHILS RELATIVE PERCENT (BEAKER) (test 83 % zklo=902) LYMPHOCYTES RELATIVE PERCENT (BEAKER) (test 7 % smmb=294) MONOCYTES RELATIVE PERCENT (BEAKER) (test 9 % orup=186) EOSINOPHILS RELATIVE PERCENT (BEAKER) (test 0 % jzaf=732) BASOPHILS RELATIVE PERCENT (BEAKER) (test 0 % pzot=296) NEUTROPHILS ABSOLUTE COUNT (BEAKER) (test 13.18 K/ L 1.78-5.38 xrfv=649) LYMPHOCYTES ABSOLUTE COUNT (BEAKER) (test 1.14 K/ L 1.32-3.57 dyox=009) MONOCYTES ABSOLUTE COUNT (BEAKER) (test wyij=585) 1.34 K/ L 0.30-0.82 EOSINOPHILS ABSOLUTE COUNT (BEAKER) (test 0.00 K/ L 0.04-0.54 xwbv=269) BASOPHILS ABSOLUTE COUNT (BEAKER) (test mabx=577) 0.01 K/ L 0.01-0.08 IMMATURE GRANULOCYTES-RELATIVE PERCENT (BEAKER) 1 % 0-1 (test czqs=0436) HEMOGLOBIN AND [id number] 05:41:00 Test Item Value Reference Range Comments HEMOGLOBIN (BEAKER) (test alni=532) 7.7 GM/DL 13.7-17.5 HEMATOCRIT (BEAKER) (test tlwd=470) 23.6 % 40.1-51.0 BLOOD GAS, [id number] 05:34:00 Test Item Value Reference Range Comments PH ARTERIAL (BEAKER) (test kkgy=423) 7.46 7.35-7.45 PCO2 ARTERIAL (BEAKER) (test hoxr=754) 30 mmHg 35-45 PO2 ARTERIAL (BEAKER) (test dgqe=204) 186 mmHg 80-90 O2 SATURATION ARTERIAL (BEAKER) (test zvmp=553) 99.4 % 96.0-97.0 HCO3 ARTERIAL (BEAKER) (test rjor=531) 21 mmol/L 21-29 BASE EXCESS ARTERIAL (BEAKER) (test bhvo=706) -2.2 mmol/L -2.0-3.0 PATIENT TEMPERATURE (BEAKER) (test qldu=5666) 36.1 C FIO2 (BEAKER) (test daxq=1256) 25.0 % LACTIC ACID, ARTERIAL, WHOLE [id number] 05:18:00 Test Item Value Reference Range Comments LACTATE BLOOD ARTERIAL (2) (BEAKER) (test 0.6 mmol/L 0.5-2.2 brdd=6262) Effective 02/25/2016: Units/Reference Range ChangeNew: 0.5-2.2 mmol/L Previous: 5 -20 mg/[id number] 01:03:00 Test Item Value Reference Range Comments POTASSIUM (BEAKER) (test dzbd=493) 4.7 meq/L 3.5-5.1 HEMOGLOBIN AND [id number] 00:48:00 Test Item Value Reference Range Comments HEMOGLOBIN (BEAKER) (test qaxq=517) 7.9 GM/DL 13.7-17.5 HEMATOCRIT (BEAKER) (test aukc=356) 24.1 % 40.1-51.0 POCT-GLUCOSE [id number] 23:46:00 Test Item Value Reference Range Comments POC-GLUCOSE METER (BEAKER) 146 mg/dL 70-110 TESTED AT [facility] [address] [facility] (test mqbu=4048) [facility] [address] [id number] 20:23:00 Test Item Value Reference Range Comments POTASSIUM (BEAKER) (test kdjw=848) 4.7 meq/L 3.5-5.1 PROTHROMBIN [id number] 20:14:00 Test Item Value Reference Range Comments PROTIME (BEAKER) (test jgko=889) 16.1 seconds 11.7-14.7 INR (BEAKER) (test ytig=187) 1.3 <=5.9 RECOMMENDED COUMADIN/WARFARIN INR THERAPY RANGESSTANDARD DOSE: 2.0 - 3.0 Includes: PROPHYLAXIS forvenous thrombosis, systemic embolization; TREATMENT for venous thrombosis and/or pulmonary embolus.HIGH RISK: Target INR is 2.5-3.5 for patients with mechanical heart valves.[id number] 20:14:00 Test Item Value Reference Range Comments PARTIAL THROMBOPLASTIN TIME (BEAKER) (test 36.0 seconds 22.5-36.0 rhoe=262) CALCIUM, [id number] 20:02:00 Test Item Value Reference Range Comments CALCIUM IONIZED (BEAKER) (test kzrb=345) 1.14 mmol/L 1.12-1.27 PH, BLOOD (BEAKER) (test mxud=4023) 7.42 HEMOGLOBIN AND [id number] 19:04:00 Test Item Value Reference Range Comments HEMOGLOBIN (BEAKER) (test ztmw=240) 8.0 GM/DL 13.7-17.5 HEMATOCRIT (BEAKER) (test mytw=057) 24.3 % 40.1-51.0 [id number] 16:46:00 Test Item Value Reference Range Comments POTASSIUM (BEAKER) (test uiqr=140) 5.0 meq/L 3.5-5.1 [id number] 16:46:00 Test Item Value Reference Range Comments MAGNESIUM (BEAKER) (test rkir=941) 2.1 mg/dL 1.6-2.6 [id number] 16:46:00 Test Item Value Reference Range Comments PHOSPHORUS (BEAKER) (test ukoq=778) 3.1 mg/dL 2.3-4.7 [id number] 16:46:00 Test Item Value Reference Range Comments SODIUM (BEAKER) (test fegg=287) 138 meq/L 136-145 PLATELET [id number] 16:34:00 Test Item Value Reference Range Comments PLATELET COUNT (BEAKER) (test cyrg=893) 57 K/CU MM 150-450 BLOOD GAS, [id number] 16:31:00 Test Item Value Reference Range Comments PH VENOUS (BEAKER) (test cyse=058) 7.43 7.32-7.42 PCO2 VENOUS (BEAKER) (test rvjh=991) 38 mmHg 41-51 PO2 VENOUS (BEAKER) (test iagb=874) 40 mmHg 25-40 O2 SATURATION VENOUS (BEAKER) (test bmyk=383) 77.3 % 40.0-70.0 HCO3 VENOUS (BEAKER) (test lvly=522) 25 mmol/L 21-29 BASE EXCESS VENOUS (BEAKER) (test sjlq=810) 0.4 mmol/L -2.0-3.0 PATIENT TEMPERATURE (BEAKER) (test qllu=0146) 37.0 C POCT-GLUCOSE [id number] 16:25:00 Test Item Value Reference Range Comments POC-GLUCOSE METER (BEAKER) 135 mg/dL 70-110 TESTED AT [facility] [address] [facility] (test dyvp=9941) [facility] [address] HEMOGLOBIN AND [id number] 14:50:00 Test Item Value Reference Range Comments HEMOGLOBIN (BEAKER) (test dtwq=543) 7.0 GM/DL 13.7-17.5 HEMATOCRIT (BEAKER) (test rbwd=915) 21.1 % 40.1-51.0 [id number] 12:41:00 Test Item Value Reference Range Comments LIPASE (BEAKER) (test jwua=765) 44 U/L 8-78 [id number] 12:41:00 Test Item Value Reference Range Comments POTASSIUM (BEAKER) (test etff=114) 4.7 meq/L 3.5-5.1 LACTIC ACID, ARTERIAL, WHOLE [id number] 12:34:00 Test Item Value Reference Range Comments LACTATE BLOOD ARTERIAL (2) (BEAKER) (test 0.6 mmol/L 0.5-2.2 dukx=5063) Effective 02/25/2016: Units/Reference Range ChangeNew: 0.5-2.2 mmol/L Previous: 5 -20 mg/dLBLOOD GAS, [id number] 12:32:00 Test Item Value Reference Range Comments PH ARTERIAL (BEAKER) (test dsfu=673) 7.49 7.35-7.45 PCO2 ARTERIAL (BEAKER) (test rhvf=475) 33 mmHg 35-45 PO2 ARTERIAL (BEAKER) (test fqdq=932) 137 mmHg 80-90 O2 SATURATION ARTERIAL (BEAKER) (test rxlt=233) 98.9 % 96.0-97.0 HCO3 ARTERIAL (BEAKER) (test mysc=303) 24 mmol/L 21-29 BASE EXCESS ARTERIAL (BEAKER) (test vstd=398) 0.9 mmol/L -2.0-3.0 PATIENT TEMPERATURE (BEAKER) (test bhnj=8100) 37.0 C FIO2 (BEAKER) (test xuzz=3364) 24.0 % CALCIUM, [id number] 12:32:00 Test Item Value Reference Range Comments CALCIUM IONIZED (BEAKER) (test ppql=081) 1.13 mmol/L 1.12-1.27 PH, BLOOD (BEAKER) (test gdqw=2538) 7.49 [id number] 12:26:00 Test Item Value Reference Range Comments PARTIAL THROMBOPLASTIN TIME (BEAKER) (test 38.8 seconds 22.5-36.0 pbfe=488) PROTHROMBIN [id number] 12:25:00 Test Item Value Reference Range Comments PROTIME (BEAKER) (test cmti=761) 16.4 seconds 11.7-14.7 INR (BEAKER) (test aqjz=553) 1.3 <=5.9 RECOMMENDED COUMADIN/WARFARIN INR THERAPY RANGESSTANDARD DOSE: 2.0 - 3.0 Includes: PROPHYLAXIS forvenous thrombosis, systemic embolization; TREATMENT for venous thrombosis and/or pulmonary embolus.HIGH RISK: Target INR is 2.5-3.5 for patients with mechanical heart valves.POCT-GLUCOSE [id number] 12:04:00 Test Item Value Reference Range Comments POC-GLUCOSE METER (BEAKER) 121 mg/dL 70-110 TESTED AT [facility] [address] [facility] (test jsjj=9597) [facility] [address] HEMOGLOBIN AND [id number] 10:46:00 Test Item Value Reference Range Comments HEMOGLOBIN (BEAKER) (test iqgy=947) 7.1 GM/DL 13.7-17.5 HEMATOCRIT (BEAKER) (test aktk=287) 21.1 % 40.1-51.0 CALCIUM, [id number] 09:20:00 Test Item Value Reference Range Comments CALCIUM IONIZED (BEAKER) (test uugj=417) 1.13 mmol/L 1.12-1.27 PH, BLOOD (BEAKER) (test zfud=0363) 7.44 CBC W/PLT COUNT & AUTO [id number] 08:02:00 Test Item Value Reference Range Comments WHITE BLOOD CELL COUNT (BEAKER) (test mtyo=266) 16.8 K/ L 3.5-10.5 RED BLOOD CELL COUNT (BEAKER) (test dqgc=829) 2.43 M/ L 4.63-6.08 HEMOGLOBIN (BEAKER) (test txpu=585) 7.4 GM/DL 13.7-17.5 HEMATOCRIT (BEAKER) (test pugb=164) 21.4 % 40.1-51.0 MEAN CORPUSCULAR VOLUME (BEAKER) (test uqnd=897) 88.1 fL 79.0-92.2 MEAN CORPUSCULAR HEMOGLOBIN (BEAKER) (test 30.5 pg 25.7-32.2 iego=389) MEAN CORPUSCULAR HEMOGLOBIN CONC (BEAKER) (test 34.6 GM/DL 32.3-36.5 ryct=824) RED CELL DISTRIBUTION WIDTH (BEAKER) (test 14.6 % 11.6-14.4 hksl=587) PLATELET COUNT (BEAKER) (test pjsd=519) 47 K/CU MM 150-450 MEAN PLATELET VOLUME (BEAKER) (test qkeb=028) 11.8 fL 9.4-12.4 NUCLEATED RED BLOOD CELLS (BEAKER) (test 3 /100 WBC 0-0 tkcm=468) NEUTROPHILS RELATIVE PERCENT (BEAKER) (test 81 % xyvv=247) LYMPHOCYTES RELATIVE PERCENT (BEAKER) (test 7 % pjrz=959) MONOCYTES RELATIVE PERCENT (BEAKER) (test 11 % zocj=661) EOSINOPHILS RELATIVE PERCENT (BEAKER) (test 0 % ghau=720) BASOPHILS RELATIVE PERCENT (BEAKER) (test 0 % jqtv=847) NEUTROPHILS ABSOLUTE COUNT (BEAKER) (test 13.49 K/ L 1.78-5.38 gnms=563) LYMPHOCYTES ABSOLUTE COUNT (BEAKER) (test 1.11 K/ L 1.32-3.57 qpkr=779) MONOCYTES ABSOLUTE COUNT (BEAKER) (test cqtq=351) 1.88 K/ L 0.30-0.82 EOSINOPHILS ABSOLUTE COUNT (BEAKER) (test 0.00 K/ L 0.04-0.54 wwke=899) BASOPHILS ABSOLUTE COUNT (BEAKER) (test zsun=427) 0.02 K/ L 0.01-0.08 IMMATURE GRANULOCYTES-RELATIVE PERCENT (BEAKER) 2 % 0-1 (test ajpd=1088) (CELLAVISION MANUAL DIFF)2018-07-10 08:02:00 Test Item Value Reference Range Comments TOTAL COUNTED (BEAKER) (test kfbz=1819) WBC MORPHOLOGY (BEAKER) (test frap=582) Normal LARGE PLT(BEAKER) (test sjfm=6761) Present POLYCHROMATOPHILLIC RBCS(BEAKER) (test kske=029) 1+ few BASIC METABOLIC [id number] 07:43:00 Test Item Value Reference Range Comments SODIUM (BEAKER) (test 136 meq/L 136-145 aprc=232) POTASSIUM (BEAKER) (test 4.4 meq/L 3.5-5.1 lotd=961) CHLORIDE (BEAKER) (test 106 meq/L 98-107 hjyf=508) CO2 (BEAKER) (test 23 meq/L 22-29 yree=549) BLOOD UREA NITROGEN 29 mg/dL 7-21 (BEAKER) (test wyxd=951) CREATININE (BEAKER) (test 2.03 mg/dL 0.57-1.25 qxfi=090) GLUCOSE RANDOM (BEAKER) 155 mg/dL 70-105 (test bwtm=788) CALCIUM (BEAKER) (test 8.1 mg/dL 8.4-10.2 wqrf=177) EGFR (BEAKER) (test 34 mL/min/1.73 sq m ESTIMATED GFR IS NOT zatn=5307) ACCURATE CREATININE CLEARANCE IN PREDICTING GLOMERULAR FILTRATION RATE. ESTIMATED GFR IS NOT APPLICABLE FOR DIALYSIS PATIENTS. [id number] 07:08:00 Test Item Value Reference Range Comments PARTIAL THROMBOPLASTIN TIME (BEAKER) (test 36.9 seconds 22.5-36.0 jfbf=662) PROTHROMBIN TIME/[id number] 07:07:00 Test Item Value Reference Range Comments PROTIME (BEAKER) (test hytl=575) 15.9 seconds 11.7-14.7 INR (BEAKER) (test wxeq=923) 1.3 <=5.9 RECOMMENDED COUMADIN/WARFARIN INR THERAPY RANGESSTANDARD DOSE: 2.0 - 3.0 Includes: PROPHYLAXIS forvenous thrombosis, systemic embolization; TREATMENT for venous thrombosis and/or pulmonary embolus.HIGH RISK: Target INR is 2.5-3.5 for patients with mechanical heart valves.LACTIC ACID, ARTERIAL, WHOLE [id number] 06:57:00 Test Item Value Reference Range Comments LACTATE BLOOD ARTERIAL (2) (BEAKER) (test 0.7 mmol/L 0.5-2.2 gter=1135) Effective 02/25/2016: Units/Reference Range ChangeNew: 0.5-2.2 mmol/L Previous: 5 -20 mg/dLBLOOD GAS, [id number] 06:53:00 Test Item Value Reference Range Comments PH ARTERIAL (BEAKER) (test eefx=134) 7.41 7.35-7.45 PCO2 ARTERIAL (BEAKER) (test bfdp=273) 41 mmHg 35-45 PO2 ARTERIAL (BEAKER) (test mcza=214) 144 mmHg 80-90 O2 SATURATION ARTERIAL (BEAKER) (test qvka=548) 98.9 % 96.0-97.0 HCO3 ARTERIAL (BEAKER) (test cupw=784) 25 mmol/L 21-29 BASE EXCESS ARTERIAL (BEAKER) (test lkbg=080) 0.7 mmol/L -2.0-3.0 PATIENT TEMPERATURE (BEAKER) (test asck=3116) 37.0 C FIO2 (BEAKER) (test mmdj=1174) 30.0 % HEMOGLOBIN AND [id number] 06:42:00 Test Item Value Reference Range Comments HEMOGLOBIN (BEAKER) (test wpag=150) 7.4 GM/DL 13.7-17.5 HEMATOCRIT (BEAKER) (test jujw=544) 22.4 % 40.1-51.0 POCT-GLUCOSE [id number] 06:33:00 Test Item Value Reference Range Comments POC-GLUCOSE METER (BEAKER) 159 mg/dL 70-110 TESTED AT [facility] [address] [facility] (test lagx=0408) [facility] [address] CALCIUM, [id number] 04:45:00 Test Item Value Reference Range Comments CALCIUM IONIZED (BEAKER) (test rykp=701) 1.12 mmol/L 1.12-1.27 PH, BLOOD (BEAKER) (test qsry=5682) 7.42 [id number] 04:42:00 Test Item Value Reference Range Comments MAGNESIUM (BEAKER) (test 2.4 mg/dL 1.6-2.6 Specimen slightly hemolyzed qyek=628) [id number] 04:42:00 Test Item Value Reference Range Comments POTASSIUM (BEAKER) (test 4.7 meq/L 3.5-5.1 Specimen slightly hemolyzed qinz=190) HEPATIC FUNCTION [id number] 04:42:00 Test Item Value Reference Range Comments TOTAL PROTEIN (BEAKER) (test 4.2 gm/dL 6.0-8.3 Specimen slightly hemolyzed jgza=622) ALBUMIN (BEAKER) (test 2.4 g/dL 3.5-5.0 Specimen slightly hemolyzed zbaz=6886) BILIRUBIN TOTAL (BEAKER) (test 2.1 mg/dL 0.2-1.2 Specimen slightly hemolyzed kzrx=820) BILIRUBIN DIRECT (BEAKER) (test 1.4 mg/dL 0.1-0.5 Specimen slightly hemolyzed yspp=827) ALKALINE PHOSPHATASE (BEAKER) 108 U/L 40-150 (test sspf=541) AST (SGOT) (BEAKER) (test 86 U/L 5-34 Specimen slightly hemolyzed uade=938) ALT (SGPT) (BEAKER) (test 36 U/L 6-55 Specimen slightly hemolyzed ozjx=844) OXYGEN SATURATION, [id number] 04:35:00 Test Item Value Reference Range Comments O2 SATURATION (MEASURED) (BEAKER) (test pknz=7150) 95.5 % Obtain from CVP portLACTIC ACID, ARTERIAL, WHOLE [id number] 01:05:00 Test Item Value Reference Range Comments LACTATE BLOOD ARTERIAL (2) (BEAKER) (test 0.6 mmol/L 0.5-2.2 mmcw=2627) Effective 02/25/2016: Units/Reference Range ChangeNew: 0.5-2.2 mmol/L Previous: 5 -20 mg/dLBLOOD GAS, [id number] 00:41:00 Test Item Value Reference Range Comments PH ARTERIAL (BEAKER) (test tnom=295) 7.42 7.35-7.45 PCO2 ARTERIAL (BEAKER) (test pvxw=995) 40 mmHg 35-45 PO2 ARTERIAL (BEAKER) (test mcxk=547) 230 mmHg 80-90 O2 SATURATION ARTERIAL (BEAKER) (test ujrb=926) 99.5 % 96.0-97.0 HCO3 ARTERIAL (BEAKER) (test hewh=017) 25 mmol/L 21-29 BASE EXCESS ARTERIAL (BEAKER) (test xiot=340) 0.5 mmol/L -2.0-3.0 PATIENT TEMPERATURE (BEAKER) (test vgmh=3853) 37.0 C FIO2 (BEAKER) (test pxyg=0375) 50.0 % CALCIUM, [id number] 00:41:00 Test Item Value Reference Range Comments CALCIUM IONIZED (BEAKER) (test sgas=243) 1.12 mmol/L 1.12-1.27 PH, BLOOD (BEAKER) (test xsuk=8439) 7.42 [id number] 00:25:00 Test Item Value Reference Range Comments POTASSIUM (BEAKER) (test utgq=813) 4.7 meq/L 3.5-5.1 [id number] 00:20:00 Test Item Value Reference Range Comments PARTIAL THROMBOPLASTIN TIME (BEAKER) (test 36.5 seconds 22.5-36.0 uxda=026) PROTHROMBIN TIME/[id number] 00:19:00 Test Item Value Reference Range Comments PROTIME (BEAKER) (test hvjp=751) 16.4 seconds 11.7-14.7 INR (BEAKER) (test odhm=310) 1.3 <=5.9 RECOMMENDED COUMADIN/WARFARIN INR THERAPY RANGESSTANDARD DOSE: 2.0 - 3.0 Includes: PROPHYLAXIS forvenous thrombosis, systemic embolization; TREATMENT for venous thrombosis and/or pulmonary embolus.HIGH RISK: Target INR is 2.5-3.5 for patients with mechanical heart valves.POCT-GLUCOSE [id number] 00:12:00 Test Item Value Reference Range Comments POC-GLUCOSE METER (BEAKER) 186 mg/dL 70-110 TESTED AT [address] (test dguc=8261) [facility] [address] HEMOGLOBIN AND [id number] 00:08:00 Test Item Value Reference Range Comments HEMOGLOBIN (BEAKER) (test alyp=165) 7.9 GM/DL 13.7-17.5 HEMATOCRIT (BEAKER) (test jbbl=518) 23.1 % 40.1-51.0 [id number] 19:56:00 Test Item Value Reference Range Comments POTASSIUM (BEAKER) (test nmpw=829) 4.9 meq/L 3.5-5.1 [id number] 19:56:00 Test Item Value Reference Range Comments MAGNESIUM (BEAKER) (test posn=916) 2.2 mg/dL 1.6-2.6 [id number] 19:56:00 Test Item Value Reference Range Comments PHOSPHORUS (BEAKER) (test hhyn=627) 3.8 mg/dL 2.3-4.7 [id number] 19:56:00 Test Item Value Reference Range Comments SODIUM (BEAKER) (test pdvt=116) 137 meq/L 136-145 BASIC METABOLIC [id number] 19:56:00 Test Item Value Reference Range Comments SODIUM (BEAKER) (test 137 meq/L 136-145 ymua=730) POTASSIUM (BEAKER) (test 4.9 meq/L 3.5-5.1 xufr=106) CHLORIDE (BEAKER) (test 107 meq/L 98-107 xcpq=602) CO2 (BEAKER) (test 24 meq/L 22-29 tmxf=096) BLOOD UREA NITROGEN 28 mg/dL 7-21 (BEAKER) (test ebhj=442) CREATININE (BEAKER) (test 2.26 mg/dL 0.57-1.25 togv=468) GLUCOSE RANDOM (BEAKER) 162 mg/dL 70-105 (test fwsk=845) CALCIUM (BEAKER) (test 8.2 mg/dL 8.4-10.2 zqxe=843) EGFR (BEAKER) (test 30 mL/min/1.73 sq m ESTIMATED GFR IS NOT ficj=1008) ACCURATE CREATININE CLEARANCE IN PREDICTING GLOMERULAR FILTRATION RATE. ESTIMATED GFR IS NOT APPLICABLE FOR DIALYSIS PATIENTS. CBC W/PLT COUNT & AUTO [id number] 19:56:00 Test Item Value Reference Range Comments WHITE BLOOD CELL COUNT (BEAKER) (test dasr=955) 18.8 K/ L 3.5-10.5 RED BLOOD CELL COUNT (BEAKER) (test hdph=167) 2.49 M/ L 4.63-6.08 HEMOGLOBIN (BEAKER) (test svcc=009) 7.5 GM/DL 13.7-17.5 HEMATOCRIT (BEAKER) (test hjrj=336) 21.5 % 40.1-51.0 MEAN CORPUSCULAR VOLUME (BEAKER) (test yhii=090) 86.3 fL 79.0-92.2 MEAN CORPUSCULAR HEMOGLOBIN (BEAKER) (test 30.1 pg 25.7-32.2 puui=458) MEAN CORPUSCULAR HEMOGLOBIN CONC (BEAKER) (test 34.9 GM/DL 32.3-36.5 zewe=134) RED CELL DISTRIBUTION WIDTH (BEAKER) (test 14.6 % 11.6-14.4 pjqc=363) PLATELET COUNT (BEAKER) (test ipkg=394) 54 K/CU MM 150-450 MEAN PLATELET VOLUME (BEAKER) (test wbhs=649) 12.0 fL 9.4-12.4 NUCLEATED RED BLOOD CELLS (BEAKER) (test 3 /100 WBC 0-0 cklv=488) NEUTROPHILS RELATIVE PERCENT (BEAKER) (test 79 % lrdk=240) LYMPHOCYTES RELATIVE PERCENT (BEAKER) (test 8 % hfmx=651) MONOCYTES RELATIVE PERCENT (BEAKER) (test 12 % qfaf=261) EOSINOPHILS RELATIVE PERCENT (BEAKER) (test 0 % xcsi=898) BASOPHILS RELATIVE PERCENT (BEAKER) (test 0 % aegp=844) NEUTROPHILS ABSOLUTE COUNT (BEAKER) (test 14.84 K/ L 1.78-5.38 fomj=863) LYMPHOCYTES ABSOLUTE COUNT (BEAKER) (test 1.57 K/ L 1.32-3.57 uunm=917) MONOCYTES ABSOLUTE COUNT (BEAKER) (test dhir=328) 2.18 K/ L 0.30-0.82 EOSINOPHILS ABSOLUTE COUNT (BEAKER) (test 0.01 K/ L 0.04-0.54 nfpb=607) BASOPHILS ABSOLUTE COUNT (BEAKER) (test kvhv=163) 0.01 K/ L 0.01-0.08 IMMATURE GRANULOCYTES-RELATIVE PERCENT (BEAKER) 1 % 0-1 (test bxby=0485) CALCIUM, [id number] 19:41:00 Test Item Value Reference Range Comments CALCIUM IONIZED (BEAKER) (test chgp=246) 1.13 mmol/L 1.12-1.27 PH, BLOOD (BEAKER) (test cmlb=7870) 7.45 LACTIC ACID, ARTERIAL, WHOLE [id number] 18:09:00 Test Item Value Reference Range Comments LACTATE BLOOD ARTERIAL (2) (BEAKER) (test 0.6 mmol/L 0.5-2.2 ajgm=4896) Effective 02/25/2016: Units/Reference Range ChangeNew: 0.5-2.2 mmol/L Previous: 5 -20 mg/[id number] 18:09:00 Test Item Value Reference Range Comments TRIGLYCERIDES (BEAKER) (test xxim=267) 259 mg/dL TRIGLYCERIDE REFERENCE RANGELow Risk <150Borderline Risk 150-199High Risk 200-499Very High Risk>=[id number] 18:05:00 Test Item Value Reference Range Comments PARTIAL THROMBOPLASTIN TIME (BEAKER) (test 35.6 seconds 22.5-36.0 lpay=582) PROTHROMBIN TIME/[id number] 18:04:00 Test Item Value Reference Range Comments PROTIME (BEAKER) (test pxpt=868) 16.2 seconds 11.7-14.7 INR (BEAKER) (test anrx=364) 1.3 <=5.9 RECOMMENDED COUMADIN/WARFARIN INR THERAPY RANGESSTANDARD DOSE: 2.0 - 3.0 Includes: PROPHYLAXIS forvenous thrombosis, systemic embolization; TREATMENT for venous thrombosis and/or pulmonary embolus.HIGH RISK: Target INR is 2.5-3.5 for patients with mechanical heart valves.HEMOGLOBIN AND [id number] 17 :52:00 Test Item Value Reference Range Comments HEMOGLOBIN (BEAKER) (test wxxw=327) 7.9 GM/DL 13.7-17.5 HEMATOCRIT (BEAKER) (test uajm=968) 22.4 % 40.1-51.0 BLOOD GAS, [id number] 17:48:00 Test Item Value Reference Range Comments PH ARTERIAL (BEAKER) (test imvo=711) 7.42 7.35-7.45 PCO2 ARTERIAL (BEAKER) (test rxaj=974) 42 mmHg 35-45 PO2 ARTERIAL (BEAKER) (test svmd=990) 189 mmHg 80-90 O2 SATURATION ARTERIAL (BEAKER) (test pqhv=890) 99.3 % 96.0-97.0 HCO3 ARTERIAL (BEAKER) (test xknp=067) 26 mmol/L 21-29 BASE EXCESS ARTERIAL (BEAKER) (test vreq=582) 1.4 mmol/L -2.0-3.0 PATIENT TEMPERATURE (BEAKER) (test jmbo=1081) 37.5 C FIO2 (BEAKER) (test fnqs=7178) 50.0 % POCT-GLUCOSE [id number] 17:45:00 Test Item Value Reference Range Comments POC-GLUCOSE METER (BEAKER) 184 mg/dL 70-110 TESTED AT [facility] [address] (test widh=0828) [facility] [address] [id number] 16:05:00 Test Item Value Reference Range Comments POTASSIUM (BEAKER) (test jcyn=937) 4.9 meq/L 3.5-5.1 CALCIUM, [id number] 15:53:00 Test Item Value Reference Range Comments CALCIUM IONIZED (BEAKER) (test jxph=346) 1.18 mmol/L 1.12-1.27 PH, BLOOD (BEAKER) (test rmas=7791) 7.42 [id number] 12:36:00 Test Item Value Reference Range Comments PARTIAL THROMBOPLASTIN TIME (BEAKER) (test 39.8 seconds 22.5-36.0 ylnk=352) PROTHROMBIN TIME/[id number] 12:35:00 Test Item Value Reference Range Comments PROTIME (BEAKER) (test njoa=396) 16.7 seconds 11.7-14.7 INR (BEAKER) (test sglz=097) 1.4 <=5.9 RECOMMENDED COUMADIN/WARFARIN INR THERAPY RANGESSTANDARD DOSE: 2.0 - 3.0 Includes: PROPHYLAXIS forvenous thrombosis, systemic embolization; TREATMENT for venous thrombosis and/or pulmonary embolus.HIGH RISK: Target INR is 2.5-3.5 for patients with mechanical heart valves.LACTIC ACID, ARTERIAL, WHOLE [id number] 12:35:00 Test Item Value Reference Range Comments LACTATE BLOOD ARTERIAL (2) (BEAKER) (test 1.1 mmol/L 0.5-2.2 sket=4476) Effective 02/25/2016: Units/Reference Range ChangeNew: 0.5-2.2 mmol/L Previous: 5 -20 mg/[id number] 12:34:00 Test Item Value Reference Range Comments POTASSIUM (BEAKER) (test zkqh=700) 4.6 meq/L 3.5-5.1 BLOOD GAS, [id number] 12:17:00 Test Item Value Reference Range Comments PH ARTERIAL (BEAKER) (test wsme=302) 7.37 7.35-7.45 PCO2 ARTERIAL (BEAKER) (test hqen=179) 45 mmHg 35-45 PO2 ARTERIAL (BEAKER) (test tjjm=470) 160 mmHg 80-90 O2 SATURATION ARTERIAL (BEAKER) (test mboj=241) 99.0 % 96.0-97.0 HCO3 ARTERIAL (BEAKER) (test cuni=327) 25 mmol/L 21-29 BASE EXCESS ARTERIAL (BEAKER) (test kfxy=082) -0.2 mmol/L -2.0-3.0 PATIENT TEMPERATURE (BEAKER) (test kkwl=5895) 37.0 C FIO2 (BEAKER) (test pxtf=7468) 50.0 % HEMOGLOBIN AND [id number] 12:17:00 Test Item Value Reference Range Comments HEMOGLOBIN (BEAKER) (test bcld=558) 9.6 GM/DL 13.7-17.5 HEMATOCRIT (BEAKER) (test zywk=694) 27.3 % 40.1-51.0 CALCIUM, [id number] 12:17:00 Test Item Value Reference Range Comments CALCIUM IONIZED (BEAKER) (test noku=480) 1.13 mmol/L 1.12-1.27 PH, BLOOD (BEAKER) (test pxsq=8040) 7.37 OXYGEN SATURATION, [id number] 12:16:00 Test Item Value Reference Range Comments O2 SATURATION (MEASURED) (BEAKER) (test odzj=1104) 81.6 % Obtain from CVP portRAD, CHEST, 1 VIEW, NON [id number] 12:16:00Reason for exam:->assess for pulmonary edemaShould this [...] MDReport Verified Date/Time: 2017 12:16:49 Reading Location: [facility] C013Y CT Body Reading Room POCT- GLUCOSE [id number] 12:06:00 Test Item Value Reference Range Comments POC-GLUCOSE METER (BEAKER) 209 mg/dL 70-110 TESTED AT [facility] [address] (test qnyd=5817) [place] [address] HEMOGLOBIN AND [id number] 10:33:00 Test Item Value Reference Range Comments HEMOGLOBIN (BEAKER) (test hsow=478) 10.4 GM/DL 13.7-17.5 HEMATOCRIT (BEAKER) (test dfmf=190) 29.6 % 40.1-51.0 THROMBOELASTOGRAPH (TEG)2018-07-09 10:31:00 Test Item Value Reference Range Comments TEG ACTIVATED CLOTTING TIME (BEAKER) (test 4.7 minutes 4.0-7.0 otvp=8149) TEG FIBRINOGEN ACTIVITY (BEAKER) (test 69.6 degrees 61.0-73.0 cdjh=8394) TEG PLT. AGGREGATION (BEAKER) (test uuny=1580) 55.6 MM 55.0-65.0 TEG FIBRINOLYSIS (BEAKER) (test iasc=1800) 0.0 % 0.0-5.0 TGH ACTIVATED CLOTTING TIME (BEAKER) (test 4.8 minutes 4.0-7.0 jdip=4971) TGH FIBRINOGEN ACTIVITY (BEAKER) (test 65.6 degrees 61.0-73.0 jtzi=9816) TGH PLT. AGGREGATION (BEAKER) (test nrjm=8202) 52.4 MM 55.0-65.0 TGH FIBRINOLYSIS (BEAKER) (test czne=8821) 0.0 % 0.0-5.0 BLOOD GAS, [id number] 09:22:00 Test Item Value Reference Range Comments PH ARTERIAL (BEAKER) (test mfcn=963) 7.50 7.35-7.45 PCO2 ARTERIAL (BEAKER) (test jukt=415) 28 mm Hg 35-45 PO2 ARTERIAL (BEAKER) (test ltwd=622) 230 mm Hg 80-90 O2 SATURATION ARTERIAL (BEAKER) (test zbib=192) 99.6 % 96.0-97.0 HCO3 ARTERIAL (BEAKER) (test qpyo=856) 21 mmol/L 21-29 BASE EXCESS ARTERIAL (BEAKER) (test wjgq=404) -0.9 mmol/L -2.0-3.0 PATIENT TEMPERATURE (BEAKER) (test gmmt=8138) 37.0 FIO2 (BEAKER) (test xsxh=9822) 60 [id number] 08:58:00 Test Item Value Reference Range Comments POTASSIUM (BEAKER) (test pnbl=452) 4.7 meq/L 3.5-5.1 [id number] 08:58:00 Test Item Value Reference Range Comments MAGNESIUM (BEAKER) (test zygo=892) 2.2 mg/dL 1.6-2.6 [id number] 08:58:00 Test Item Value Reference Range Comments PHOSPHORUS (BEAKER) (test zhtv=959) 3.4 mg/dL 2.3-4.7 [id number] 08:58:00 Test Item Value Reference Range Comments SODIUM (BEAKER) (test dche=866) 136 meq/L 136-145 LACTIC ACID, ARTERIAL, WHOLE [id number] 08:55:00 Test Item Value Reference Range Comments LACTATE BLOOD ARTERIAL (2) (BEAKER) (test 1.9 mmol/L 0.5-2.2 yseg=6752) Effective 02/25/2016: Units/Reference Range ChangeNew: 0.5-2.2 mmol/L Previous: 5 -20 mg/dLCBC W/PLT COUNT & AUTO [id number] 08:46:00 Test Item Value Reference Range Comments WHITE BLOOD CELL COUNT (BEAKER) (test pdss=248) 24.9 K/ L 3.5-10.5 RED BLOOD CELL COUNT (BEAKER) (test dfda=328) 3.45 M/ L 4.63-6.08 HEMOGLOBIN (BEAKER) (test jegm=086) 10.2 GM/DL 13.7-17.5 HEMATOCRIT (BEAKER) (test fynh=842) 29.6 % 40.1-51.0 MEAN CORPUSCULAR VOLUME (BEAKER) (test pntm=364) 85.8 fL 79.0-92.2 MEAN CORPUSCULAR HEMOGLOBIN (BEAKER) (test 29.6 pg 25.7-32.2 ldvm=075) MEAN CORPUSCULAR HEMOGLOBIN CONC (BEAKER) (test 34.5 GM/DL 32.3-36.5 bfgt=187) RED CELL DISTRIBUTION WIDTH (BEAKER) (test 14.1 % 11.6-14.4 gwzc=704) PLATELET COUNT (BEAKER) (test fenl=202) 62 K/CU MM 150-450 MEAN PLATELET VOLUME (BEAKER) (test gjtu=671) 11.4 fL 9.4-12.4 NUCLEATED RED BLOOD CELLS (BEAKER) (test 0 /100 WBC 0-0 bvop=649) (CELLAVISION MANUAL DIFF)2018-07-09 08:46:00 Test Item Value Reference Range Comments NEUTROPHILS - REL (CELLAVISION)(BEAKER) (test 86 % iovt=0176) LYMPHOCYTES - REL (CELLAVISION)(BEAKER) (test 2 % ypbo=7329) MONOCYTES - REL (CELLAVISION)(BEAKER) (test 2 % gvpb=4372) BANDS - REL (CELLAVISION)(BEAKER) (test 10 % 0-10 cpas=9341) NEUTROPHILS - ABS (CELLAVISION)(BEAKER) (test 21.41 K/ul 1.78-5.38 gjix=0776) LYMPHOCYTES - ABS (CELLAVISION)(BEAKER) (test 0.50 K/ul 1.32-3.57 pdww=7144) MONOCYTES - ABS (CELLAVISION)(BEAKER) (test 0.50 K/uL 0.30-0.82 kblk=3071) BANDS - ABS (CELLAVISION)(BEAKER) (test 2.49 K/uL 0.00-0.80 byxe=4177) TOTAL COUNTED (BEAKER) (test mphj=5222) 100 MANUAL NRBC PER 100 CELLS (BEAKER) (test 1 /100 WBC 0-0 sicj=5214) WBC MORPHOLOGY (BEAKER) (test snsn=168) Normal PLT MORPHOLOGY (BEAKER) (test uxdl=218) Normal POLYCHROMATOPHILLIC RBCS(BEAKER) (test fupl=010) 2+ moderate ANISOCYTOSIS (BEAKER) (test hjns=879) 2+ moderate POIKILOCYTES (BEAKER) (test gvhp=209) 2+ moderate ARTIFACT (CELLAVISION)(BEAKER) (test qkhm=9076) Present PLATELET CONCENTRATION (CELLAVISION)(BEAKER) Decreased (test cunh=4007) Received comment: User comments: Slide comments:HEMOGLOBIN AND [id number] 08:43:00 Test Item Value Reference Range Comments HEMOGLOBIN (BEAKER) (test drmj=745) 10.9 GM/DL 13.7-17.5 HEMATOCRIT (BEAKER) (test nrhq=253) 31.0 % 40.1-51.0 CALCIUM, [id number] 08:30:00 Test Item Value Reference Range Comments CALCIUM IONIZED (BEAKER) (test hopw=270) 1.17 mmol/L 1.12-1.27 PH, BLOOD (BEAKER) (test hyaa=3974) 7.50 PH, [id number] 08:30:00 Test Item Value Reference Range Comments PH ARTERIAL (BEAKER) (test zxso=843) 7.50 7.35-7.45 POCT-GLUCOSE [id number] 08:26:00 Test Item Value Reference Range Comments POC-GLUCOSE METER (BEAKER) 180 mg/dL 70-110 TESTED AT [address] (test vwlk=0373) [facility] [address] ANG, EMBOLIZATION, EXTENSIVE - [id number] 07:11:00Reason for exam:-> upper GI bleedFINAL REPORT [...] MDReport Verified Date/Time: 07/09/2018 07:11:14 Reading Location: [place] [id number] Angio Body Reading Room CALCIUM, [id number] 07:06:00 Test Item Value Reference Range Comments CALCIUM IONIZED (BEAKER) (test snmv=253) 1.10 mmol/L 1.12-1.27 PH, BLOOD (BEAKER) (test txcc=2116) 7.42 MRSA [id number] 06:59:00 Test Item Value Reference Range Comments CULTURE (BEAKER) (test hfhs=4173) No MRSA isolated [id number] 06:24:00 Test Item Value Reference Range Comments D-DIMER QUANTITATIVE (BEAKER) (test joar=378) 4.16 MG/L FEU <0.50 Intended Use: The D-Dimer Assay can be used to aid in the diagnosis of Deep Vein Thrombosis (DVT) and Pulmonary Embolism Disease (PED).In patients with low pre-test probability, various studies concerning STA Liatest D-dimer test have reported that with a cutoff value of 0.50 MG/L FEU, the Negative Predictive Value (NPV) regarding the exclusion of thrombosis is within 95-100% range.[id number] 06:20:00 Test Item Value Reference Range Comments FIBRINOGEN LEVEL (BEAKER) (test xrqc=283) 128 mg/dl 225-434 HEPATIC FUNCTION [id number] 06:16:00 Test Item Value Reference Range Comments TOTAL PROTEIN (BEAKER) (test mbxm=163) 3.3 gm/dL 6.0-8.3 ALBUMIN (BEAKER) (test mkbn=8840) 1.9 g/dL 3.5-5.0 BILIRUBIN TOTAL (BEAKER) (test cfpg=360) 2.3 mg/dL 0.2-1.2 BILIRUBIN DIRECT (BEAKER) (test krmw=486) 1.8 mg/dL 0.1-0.5 ALKALINE PHOSPHATASE (BEAKER) (test myce=941) 89 U/L 40-150 AST (SGOT) (BEAKER) (test pgok=016) 56 U/L 5-34 ALT (SGPT) (BEAKER) (test lkrr=114) 28 U/L 6-55 [id number] 06:15:00 Test Item Value Reference Range Comments PROTIME (BEAKER) (test bfod=347) 20.6 seconds 11.7-14.7 INR (BEAKER) (test myvd=175) 1.8 <=5.9 PARTIAL THROMBOPLASTIN TIME (BEAKER) (test 39.3 seconds 22.5-36.0 jdlb=162) RECOMMENDED COUMADIN/WARFARIN INR THERAPY RANGESSTANDARD DOSE: 2.0 - 3.0 Includes: PROPHYLAXIS forvenous thrombosis, systemic embolization; TREATMENT for venous thrombosis and/or pulmonary embolus.HIGH RISK: Target INR is 2.5-3.5 for patients with mechanical heart valves.BASIC METABOLIC [id number] 06:12: 00 Test Item Value Reference Range Comments SODIUM (BEAKER) (test 136 meq/L 136-145 iexp=331) POTASSIUM (BEAKER) (test 4.8 meq/L 3.5-5.1 fzbj=318) CHLORIDE (BEAKER) (test 110 meq/L 98-107 pmgr=084) CO2 (BEAKER) (test 20 meq/L 22-29 lvgi=521) BLOOD UREA NITROGEN 25 mg/dL 7-21 (BEAKER) (test ldzr=214) CREATININE (BEAKER) (test 2.09 mg/dL 0.57-1.25 szoe=324) GLUCOSE RANDOM (BEAKER) 183 mg/dL 70-105 (test euws=233) CALCIUM (BEAKER) (test 8.0 mg/dL 8.4-10.2 flmx=672) EGFR (BEAKER) (test 33 mL/min/1.73 sq m ESTIMATED GFR IS NOT wjoc=1707) ACCURATE CREATININE CLEARANCE IN PREDICTING GLOMERULAR FILTRATION RATE. ESTIMATED GFR IS NOT APPLICABLE FOR DIALYSIS PATIENTS. [id number] 06:12:00 Test Item Value Reference Range Comments MAGNESIUM (BEAKER) (test mjsc=065) 1.7 mg/dL 1.6-2.6 [id number] 06:12:00 Test Item Value Reference Range Comments POTASSIUM (BEAKER) (test ockc=384) 4.8 meq/L 3.5-5.1 [id number] 06:12:00 Test Item Value Reference Range Comments SODIUM (BEAKER) (test dnzs=550) 136 meq/L 136-145 PLATELET [id number] 05:53:00 Test Item Value Reference Range Comments PLATELET COUNT (BEAKER) (test jvlw=062) 62 K/CU MM 150-450 HEMOGLOBIN AND [id number] 05:53:00 Test Item Value Reference Range Comments HEMOGLOBIN (BEAKER) (test xyzp=055) 10.2 GM/DL 13.7-17.5 HEMATOCRIT (BEAKER) (test rhyi=346) 29.6 % 40.1-51.0 THROMBOELASTOGRAPH (TEG)2018-07-09 04:19:00 Test Item Value Reference Range Comments TEG ACTIVATED CLOTTING TIME (BEAKER) (test 3.2 minutes 4.0-7.0 yyyg=8844) TEG FIBRINOGEN ACTIVITY (BEAKER) (test 61.7 degrees 61.0-73.0 ravg=6133) TEG PLT. AGGREGATION (BEAKER) (test mlcv=5796) 43.9 MM 55.0-65.0 TEG FIBRINOLYSIS (BEAKER) (test ynwm=6715) 0.0 % 0.0-5.0 TGH ACTIVATED CLOTTING TIME (BEAKER) (test 3.2 minutes 4.0-7.0 eieu=9047) TGH FIBRINOGEN ACTIVITY (BEAKER) (test 64.3 degrees 61.0-73.0 mgjv=4814) TGH PLT. AGGREGATION (BEAKER) (test zbhm=7482) 43.5 MM 55.0-65.0 TGH FIBRINOLYSIS (BEAKER) (test nnxe=0916) 0.0 % 0.0-5.0 POCT-BLOOD GASES, [id number] 03:55:00 Test Item Value Reference Range Comments TEMP, CELSIUS-POC (BEAKER) 36.1 (test ktiu=6258) FIO2-POC (BEAKER) (test 60 TESTED AT [address] cytr=3211) [place] [id number] PH, ARTERIAL-POC (BEAKER) 7.337 7.350-7.450 (test mizb=4044) PCO2, ARTERIAL-POC (BEAKER) 42.1 mm Hg 35.0-45.0 (test dnbt=3852) PO2, ARTERIAL-POC (BEAKER) 95.0 mm Hg 80.0-90.0 (test kpzd=0634) SO2, ARTERIAL-POC (BEAKER) 97.0 % 96.0-97.0 (test lmpv=8743) HCO3, ARTERIAL-POC (BEAKER) 22.8 meq/L 21.0-29.0 (test jeqj=8481) BASE EXCESS, ARTERIAL-POC -3.0 meq/L -2.0-3.0 (BEAKER) (test xiry=0885) [id number] 03:55:00 Test Item Value Reference Range Comments POC-SODIUM (BEAKER) (test 139 meq/L 135-148 TESTED AT [address] igyo=0863) [place] [address] [id number] 03:55:00 Test Item Value Reference Range Comments POC-POTASSIUM (BEAKER) (test 4.7 meq/L 3.6-5.5 TESTED AT [address] vkmo=4436) [place] [address] [id number] 03:55:00 Test Item Value Reference Range Comments POC-GLUCOSE (BEAKER) (test 175 mg/dL 70-110 TESTED AT [address] ript=3040) [place] [address] POCT-CALCIUM [id number] 03:55:00 Test Item Value Reference Range Comments POC-CALCIUM IONIZED (BEAKER) 1.27 mmol/L 1.12-1.27 TESTED AT [address] (test trll=5674) [place] [address] [id number] 03:55:00 Test Item Value Reference Range Comments POC-HEMATOCRIT (BEAKER) (test 26 % 40-50 TESTED AT [address] kzmq=4602) [facility] [address] [id number] 03:55:00 Test Item Value Reference Range Comments POC-HEMOGLOBIN (BEAKER) 8.8 g/dL 13.0-16.8 TESTED AT [address] (test jtnp=9058) [place] [id number] AT [address] [address] CALCIUM, [id number] 02:37:00 Test Item Value Reference Range Comments CALCIUM IONIZED (BEAKER) (test gyap=546) 1.94 mmol/L 1.12-1.27 PH, BLOOD (BEAKER) (test ascg=9018) 7.26 BLOOD GAS, [id number] 02:30:00 Test Item Value Reference Range Comments PH ARTERIAL (BEAKER) (test qwrc=434) 7.26 7.35-7.45 PCO2 ARTERIAL (BEAKER) (test xfie=458) 41 mmHg 35-45 PO2 ARTERIAL (BEAKER) (test gtat=610) 186 mmHg 80-90 O2 SATURATION ARTERIAL (BEAKER) (test tcqv=288) 99.1 % 96.0-97.0 HCO3 ARTERIAL (BEAKER) (test phgl=888) 18 mmol/L 21-29 BASE EXCESS ARTERIAL (BEAKER) (test kaem=392) -8.5 mmol/L -2.0-3.0 PATIENT TEMPERATURE (BEAKER) (test ufbl=5337) 37.0 C FIO2 (BEAKER) (test lhnq=9777) 100.0 % THROMBOELASTOGRAPH (TEG)2018-07-09 02:15:00 Test Item Value Reference Range Comments TEG ACTIVATED CLOTTING TIME (BEAKER) (test 4.1 minutes 4.0-7.0 gwvd=2667) TEG FIBRINOGEN ACTIVITY (BEAKER) (test 71.0 degrees 61.0-73.0 emct=0325) TEG PLT. AGGREGATION (BEAKER) (test jddw=9025) 55.1 MM 55.0-65.0 TEG FIBRINOLYSIS (BEAKER) (test mqip=2783) 1.2 % 0.0-5.0 TGH ACTIVATED CLOTTING TIME (BEAKER) (test 4.2 minutes 4.0-7.0 dqyt=3726) TGH FIBRINOGEN ACTIVITY (BEAKER) (test 69.7 degrees 61.0-73.0 kzut=1995) TGH PLT. AGGREGATION (BEAKER) (test igkv=8970) 51.5 MM 55.0-65.0 TGH FIBRINOLYSIS (BEAKER) (test jsmy=1664) 0.0 % 0.0-5.0 [id number] 01:54:00 Test Item Value Reference Range Comments POTASSIUM (BEAKER) (test zesw=895) 3.9 meq/L 3.5-5.1 [id number] 01:54:00 Test Item Value Reference Range Comments SODIUM (BEAKER) (test gygo=719) 138 meq/L 136-145 PLATELET [id number] 01:46:00 Test Item Value Reference Range Comments PLATELET COUNT (BEAKER) (test ptrk=480) 69 K/CU MM 150-450 HEMOGLOBIN AND [id number] 01:46:00 Test Item Value Reference Range Comments HEMOGLOBIN (BEAKER) (test tqni=956) 9.0 GM/DL 13.7-17.5 HEMATOCRIT (BEAKER) (test xype=306) 27.4 % 40.1-51.0 POCT-BLOOD GASES, [id number] 01:27:00 Test Item Value Reference Range Comments TEMP, CELSIUS-POC (BEAKER) 36.4 (test tlry=8610) FIO2-POC (BEAKER) (test TESTED AT [facility] [address] [facility] hkcv=4357) [facility] [address] PH, ARTERIAL-POC (BEAKER) 7.194 7.350-7.450 (test mktk=8766) PCO2, ARTERIAL-POC (BEAKER) 45.4 mm Hg 35.0-45.0 (test pdbh=0386) PO2, ARTERIAL-POC (BEAKER) 159.0 mm Hg 80.0-90.0 (test mmbs=6778) SO2, ARTERIAL-POC (BEAKER) 99.0 % 96.0-97.0 (test bqjp=9468) HCO3, ARTERIAL-POC (BEAKER) 17.7 meq/L 21.0-29.0 (test xrnv=3740) BASE EXCESS, ARTERIAL-POC -11.0 meq/L -2.0-3.0 (BEAKER) (test lcpx=4548) [id number] 01:27:00 Test Item Value Reference Range Comments POC-SODIUM (BEAKER) (test 141 meq/L 135-148 TESTED AT [address] fabn=7961) [place] [id number] 01:27:00 Test Item Value Reference Range Comments POC-POTASSIUM (BEAKER) (test 4.0 meq/L 3.6-5.5 TESTED AT [address] hqdx=6820) [place] [address] [id number] 01:27:00 Test Item Value Reference Range Comments POC-GLUCOSE (BEAKER) (test 219 mg/dL 70-110 TESTED AT [address] rmnd=3551) [place] [address] POCT-CALCIUM [id number] 01:27:00 Test Item Value Reference Range Comments POC-CALCIUM IONIZED (BEAKER) 0.99 mmol/L 1.12-1.27 TESTED AT [address] (test vzlr=8865) [place] [address] [id number] 01:27:00 Test Item Value Reference Range Comments POC-HEMATOCRIT (BEAKER) (test 20 % 40-50 TESTED AT [address] asef=0604) [place] [address] [id number] 01:27:00 Test Item Value Reference Range Comments POC-HEMOGLOBIN (BEAKER) 6.8 g/dL 13.0-16.8 TESTED AT [address] (test perv=1052) [place] [address]TESTED AT [place] [address] HEMOGLOBIN AND [id number] 01:04:00 Test Item Value Reference Range Comments HEMOGLOBIN (BEAKER) (test hayg=699) 6.9 GM/DL 13.7-17.5 HEMATOCRIT (BEAKER) (test kptz=704) 21.0 % 40.1-51.0 VANCOMYCIN LEVEL, [id number] 00:57:00 Test Item Value Reference Range Comments VANCOMYCIN TROUGH (BEAKER) (test ekkx=886) 19.9 ug/mL 10.0-20.0 CALCIUM, [id number] 00:41:00 Test Item Value Reference Range Comments CALCIUM IONIZED (BEAKER) (test bzpt=303) 1.01 mmol/L 1.12-1.27 PH, BLOOD (BEAKER) (test xsxo=4287) 7.35 [id number] 00:41:00 Test Item Value Reference Range Comments POTASSIUM (BEAKER) (test vqrb=114) 4.5 meq/L 3.5-5.1 HEMOGLOBIN AND [id number] 21:53:00 Test Item Value Reference Range Comments HEMOGLOBIN (BEAKER) (test qgwv=109) 6.1 GM/DL 13.7-17.5 HEMATOCRIT (BEAKER) (test gqmw=504) 18.0 % 40.1-51.0 [id number] 19:42:00 Test Item Value Reference Range Comments POTASSIUM (BEAKER) (test ftvk=210) 4.6 meq/L 3.5-5.1 [id number] 19:42:00 Test Item Value Reference Range Comments MAGNESIUM (BEAKER) (test apoa=272) 1.8 mg/dL 1.6-2.6 [id number] 19:42:00 Test Item Value Reference Range Comments PHOSPHORUS (BEAKER) (test npus=042) 3.5 mg/dL 2.3-4.7 [id number] 19:42:00 Test Item Value Reference Range Comments SODIUM (BEAKER) (test pdvq=441) 137 meq/L 136-145 PROTHROMBIN [id number] 19:40:00 Test Item Value Reference Range Comments PROTIME (BEAKER) (test efow=399) 18.3 seconds 11.7-14.7 INR (BEAKER) (test sfue=321) 1.5 <=5.9 RECOMMENDED COUMADIN/WARFARIN INR THERAPY RANGESSTANDARD DOSE: 2.0 - 3.0 Includes: PROPHYLAXIS forvenous thrombosis, systemic embolization; TREATMENT for venous thrombosis and/or pulmonary embolus.HIGH RISK: Target INR is 2.5-3.5 for patients with mechanical heart valves.PH, [id number] 19:30:00 Test Item Value Reference Range Comments PH ARTERIAL (BEAKER) (test ewtq=590) 7.44 7.35-7.45 CALCIUM, [id number] 19:30:00 Test Item Value Reference Range Comments CALCIUM IONIZED (BEAKER) (test wmnh=834) 1.13 mmol/L 1.12-1.27 PH, BLOOD (BEAKER) (test ebqh=7314) 7.44 HEMOGLOBIN AND [id number] 19:28:00 Test Item Value Reference Range Comments HEMOGLOBIN (BEAKER) (test dpnn=384) 7.5 GM/DL 13.7-17.5 HEMATOCRIT (BEAKER) (test hhsn=449) 21.8 % 40.1-51.0 POCT-GLUCOSE [id number] 17:21:00 Test Item Value Reference Range Comments POC-GLUCOSE METER (BEAKER) 189 mg/dL 70-110 TESTED AT [facility] [address] [facility] (test tloz=8677) [facility] [address] [id number] 16:23:00 Test Item Value Reference Range Comments MAGNESIUM (BEAKER) (test cblf=186) 1.8 mg/dL 1.6-2.6 CALCIUM, [id number] 16:07:00 Test Item Value Reference Range Comments CALCIUM IONIZED (BEAKER) (test mwvp=466) 1.14 mmol/L 1.12-1.27 PH, BLOOD (BEAKER) (test lyho=0411) 7.43 HEMOGLOBIN AND [id number] 16:05:00 Test Item Value Reference Range Comments HEMOGLOBIN (BEAKER) (test iocr=059) 8.1 GM/DL 13.7-17.5 HEMATOCRIT (BEAKER) (test vejh=392) 23.4 % 40.1-51.0 BLOOD GAS, [id number] 12:34:00 Test Item Value Reference Range Comments PH ARTERIAL (BEAKER) (test jpvd=317) 7.49 7.35-7.45 PCO2 ARTERIAL (BEAKER) (test xptd=258) 33 mmHg 35-45 PO2 ARTERIAL (BEAKER) (test nxob=284) 245 mmHg 80-90 O2 SATURATION ARTERIAL (BEAKER) (test itwg=159) 99.6 % 96.0-97.0 HCO3 ARTERIAL (BEAKER) (test sdbk=266) 24 mmol/L 21-29 BASE EXCESS ARTERIAL (BEAKER) (test hpus=423) 0.9 mmol/L -2.0-3.0 PATIENT TEMPERATURE (BEAKER) (test jtoq=8664) 36.5 C FIO2 (BEAKER) (test rqbm=1547) 60.0 % PROTHROMBIN [id number] 12:05:00 Test Item Value Reference Range Comments PROTIME (BEAKER) (test whxo=710) 18.1 seconds 11.7-14.7 INR (BEAKER) (test kgpv=490) 1.5 <=5.9 RECOMMENDED COUMADIN/WARFARIN INR THERAPY RANGESSTANDARD DOSE: 2.0 - 3.0 Includes: PROPHYLAXIS forvenous thrombosis, systemic embolization; TREATMENT for venous thrombosis and/or pulmonary embolus.HIGH RISK: Target INR is 2.5-3.5 for patients with mechanical heart valves.BLOOD GAS, [id number] 11:30:00 Test Item Value Reference Range Comments PH ARTERIAL (BEAKER) (test cewx=244) 7.53 7.35-7.45 PCO2 ARTERIAL (BEAKER) (test ugst=496) 31 mmHg 35-45 PO2 ARTERIAL (BEAKER) (test qkfj=785) 224 mmHg 80-90 O2 SATURATION ARTERIAL (BEAKER) (test rxjc=337) 99.6 % 96.0-97.0 HCO3 ARTERIAL (BEAKER) (test ivlq=691) 25 mmol/L 21-29 BASE EXCESS ARTERIAL (BEAKER) (test vmqd=488) 2.3 mmol/L -2.0-3.0 PATIENT TEMPERATURE (BEAKER) (test vxve=6121) 36.5 C FIO2 (BEAKER) (test wlru=5501) 60.0 % CALCIUM, [id number] 11:29:00 Test Item Value Reference Range Comments CALCIUM IONIZED (BEAKER) (test ytty=280) 1.15 mmol/L 1.12-1.27 PH, BLOOD (BEAKER) (test ozoh=8131) 7.52 POCT-GLUCOSE [id number] 11:22:00 Test Item Value Reference Range Comments POC-GLUCOSE METER (BEAKER) 202 mg/dL 70-110 TESTED AT [facility] [address] [facility] (test wiha=9546) [facility] [address] [id number] 10:07:00 Test Item Value Reference Range Comments FIBRINOGEN LEVEL (BEAKER) (test prra=882) 222 mg/dl 225-434 HEMOGLOBIN AND [id number] 09:58:00 Test Item Value Reference Range Comments HEMOGLOBIN (BEAKER) (test apzk=962) 8.8 GM/DL 13.7-17.5 HEMATOCRIT (BEAKER) (test zils=836) 25.4 % 40.1-51.0 TROPONIN [id number] 09:11:00 Test Item Value Reference Range Comments TROPONIN I (BEAKER) (test inho=873) 0.99 ng/mL 0.00-0.03 Troponin I (TnI) levels [...] and persistent tachyarrhythmia.CBC W/PLT COUNT & AUTO [id number] 09:10:00 Test Item Value Reference Range Comments WHITE BLOOD CELL COUNT 21.4 K/ L 3.5-10.5 (BEAKER) (test kehv=793) RED BLOOD CELL COUNT (BEAKER) 2.53 M/ L 4.63-6.08 (test gmob=852) HEMOGLOBIN (BEAKER) (test 7.6 GM/DL 13.7-17.5 mebt=985) HEMATOCRIT (BEAKER) (test 21.3 % 40.1-51.0 lasi=040) MEAN CORPUSCULAR VOLUME 84.2 fL 79.0-92.2 Discordant from previous (BEAKER) (test truh=655) results. Clinical correlation suggested. MEAN CORPUSCULAR HEMOGLOBIN 30.0 pg 25.7-32.2 (BEAKER) (test vuan=363) MEAN CORPUSCULAR HEMOGLOBIN 35.7 GM/DL 32.3-36.5 CONC (BEAKER) (test ivuw=613) RED CELL DISTRIBUTION WIDTH 14.6 % 11.6-14.4 (BEAKER) (test tmih=836) PLATELET COUNT (BEAKER) (test 133 K/CU MM 150-450 yoty=779) MEAN PLATELET VOLUME (BEAKER) 11.7 fL 9.4-12.4 (test arsj=050) NUCLEATED RED BLOOD CELLS 0 /100 WBC 0-0 (BEAKER) (test nsnz=414) (CELLAVISION MANUAL DIFF)2018-07-08 09:10:00 Test Item Value Reference Range Comments NEUTROPHILS - REL (CELLAVISION)(BEAKER) (test 92 % mytn=4654) LYMPHOCYTES - REL (CELLAVISION)(BEAKER) (test 6 % wnqp=6051) MONOCYTES - REL (CELLAVISION)(BEAKER) (test 2 % emgi=4401) NEUTROPHILS - ABS (CELLAVISION)(BEAKER) (test 19.69 K/ul 1.78-5.38 ijri=4510) LYMPHOCYTES - ABS (CELLAVISION)(BEAKER) (test 1.28 K/ul 1.32-3.57 twgc=6997) MONOCYTES - ABS (CELLAVISION)(BEAKER) (test 0.43 K/uL 0.30-0.82 fdyh=7473) TOTAL COUNTED (BEAKER) (test zfpt=6448) 100 WBC MORPHOLOGY (BEAKER) (test trds=668) Normal PLT MORPHOLOGY (BEAKER) (test ykvh=768) Normal POLYCHROMATOPHILLIC RBCS(BEAKER) (test mndp=568) 1+ few ANISOCYTOSIS (BEAKER) (test xgtt=509) 1+ few ARTIFACT (CELLAVISION)(BEAKER) (test czqu=9672) Present PLATELET CONCENTRATION (CELLAVISION)(BEAKER) Decreased (test stgw=2209) Received comment: User comments: Slide comments:RAD, CHEST, 1 VIEW, NON [id number] -[id number] 08:52:00Reason for exam:->intubated, assess interval change [...] Serra MDReport Verified Date/Time: 07/08/2018 08:52:14 ReadingLocation: [facility] B1 C013X Ortho Consult Reading Room Electronically signed by: SHARATH SERRA M.D. on 08:52 AMLACTIC ACID, ARTERIAL, WHOLE [id number] 08:43:00 Test Item Value Reference Range Comments LACTATE BLOOD ARTERIAL (2) (BEAKER) (test 1.1 mmol/L 0.5-2.2 oyno=6784) Effective 02/25/2016: Units/Reference Range ChangeNew: 0.5-2.2 mmol/L Previous: 5 -20 mg/[id number] 08:12:00 Test Item Value Reference Range Comments POTASSIUM (BEAKER) (test gykz=901) 3.9 meq/L 3.5-5.1 [id number] 08:12:00 Test Item Value Reference Range Comments MAGNESIUM (BEAKER) (test ekju=869) 1.8 mg/dL 1.6-2.6 [id number] 08:12:00 Test Item Value Reference Range Comments PHOSPHORUS (BEAKER) (test achq=143) 2.2 mg/dL 2.3-4.7 [id number] 08:12:00 Test Item Value Reference Range Comments SODIUM (BEAKER) (test ydyv=200) 134 meq/L 136-145 HEMOGLOBIN AND [id number] 07:56:00 Test Item Value Reference Range Comments HEMOGLOBIN (BEAKER) (test ubvd=484) 8.9 GM/DL 13.7-17.5 HEMATOCRIT (BEAKER) (test ocni=130) 25.7 % 40.1-51.0 PH, [id number] 07:55:00 Test Item Value Reference Range Comments PH ARTERIAL (BEAKER) (test ynsr=337) 7.63 7.35-7.45 CALCIUM, [id number] 07:53:00 Test Item Value Reference Range Comments CALCIUM IONIZED (BEAKER) (test dcaw=674) 1.06 mmol/L 1.12-1.27 PH, BLOOD (BEAKER) (test wdvq=9550) 7.63 POCT-GLUCOSE [id number] 07:42:00 Test Item Value Reference Range Comments POC-GLUCOSE METER (BEAKER) 190 mg/dL 70-110 TESTED AT [address] (test wadt=2857) [facility] [address] FIBRIN SOLUBLE [id number] 07:40:00 Test Item Value Reference Range Comments FIBRIN SOLUBLE MONOMER (BEAKER) (test jxkr=5286) Negative HEMOGLOBIN AND [id number] 06:23:00 Test Item Value Reference Range Comments HEMOGLOBIN (BEAKER) (test lcvj=303) 7.3 GM/DL 13.7-17.5 HEMATOCRIT (BEAKER) (test sxbf=019) 21.0 % 40.1-51.0 THROMBOELASTOGRAPH (TEG)2018-07-08 05:38:00 Test Item Value Reference Range Comments TEG ACTIVATED CLOTTING TIME (BEAKER) (test 4.0 minutes 4.0-7.0 zlom=2855) TEG FIBRINOGEN ACTIVITY (BEAKER) (test 73.8 degrees 61.0-73.0 oxek=4344) TEG PLT. AGGREGATION (BEAKER) (test jzlt=3506) 60.8 MM 55.0-65.0 TEG FIBRINOLYSIS (BEAKER) (test umuc=8099) 0.0 % 0.0-5.0 TGH ACTIVATED CLOTTING TIME (BEAKER) (test 4.1 minutes 4.0-7.0 dprg=5879) TGH FIBRINOGEN ACTIVITY (BEAKER) (test 74.4 degrees 61.0-73.0 ciqv=3090) TGH PLT. AGGREGATION (BEAKER) (test rffa=5921) 56.0 MM 55.0-65.0 TGH FIBRINOLYSIS (BEAKER) (test kfwf=6098) 0.0 % 0.0-5.0 CALCIUM, [id number] 05:19:00 Test Item Value Reference Range Comments CALCIUM IONIZED (BEAKER) (test gajq=202) 1.28 mmol/L 1.12-1.27 PH, BLOOD (BEAKER) (test agsl=4174) 7.40 [id number] 04:51:00 Test Item Value Reference Range Comments MAGNESIUM (BEAKER) (test yiow=929) 2.0 mg/dL 1.6-2.6 BASIC METABOLIC [id number] 04:51:00 Test Item Value Reference Range Comments SODIUM (BEAKER) (test 135 meq/L 136-145 jzov=645) POTASSIUM (BEAKER) (test 4.2 meq/L 3.5-5.1 fndr=042) CHLORIDE (BEAKER) (test 106 meq/L 98-107 jdli=336) CO2 (BEAKER) (test 20 meq/L 22-29 srvp=541) BLOOD UREA NITROGEN 26 mg/dL 7-21 (BEAKER) (test hbwy=955) CREATININE (BEAKER) (test 2.27 mg/dL 0.57-1.25 axmw=635) GLUCOSE RANDOM (BEAKER) 249 mg/dL 70-105 (test ozcs=048) CALCIUM (BEAKER) (test 8.1 mg/dL 8.4-10.2 skgx=981) EGFR (BEAKER) (test 30 mL/min/1.73 sq m ESTIMATED GFR IS NOT ibgo=2052) ACCURATE CREATININE CLEARANCE IN PREDICTING GLOMERULAR FILTRATION RATE. ESTIMATED GFR IS NOT APPLICABLE FOR DIALYSIS PATIENTS. Specimen slightly ictericHEPATIC FUNCTION [id number] 04:51:00 Test Item Value Reference Range Comments TOTAL PROTEIN (BEAKER) (test mlkg=219) 4.4 gm/dL 6.0-8.3 ALBUMIN (BEAKER) (test vzzs=9337) 2.5 g/dL 3.5-5.0 BILIRUBIN TOTAL (BEAKER) (test gbli=829) 2.3 mg/dL 0.2-1.2 BILIRUBIN DIRECT (BEAKER) (test vcvd=855) 1.7 mg/dL 0.1-0.5 ALKALINE PHOSPHATASE (BEAKER) (test mtgw=578) 71 U/L 40-150 AST (SGOT) (BEAKER) (test nazc=494) 73 U/L 5-34 ALT (SGPT) (BEAKER) (test wsuo=134) 34 U/L 6-55 Specimen slightly [id number] 04:45:00 Test Item Value Reference Range Comments D-DIMER QUANTITATIVE (BEAKER) (test zdka=175) 2.09 MG/L FEU <0.50 Intended Use: The D-Dimer Assay can be used to aid in the diagnosis of Deep Vein Thrombosis (DVT) and Pulmonary Embolism Disease (PED).In patients with low pre-test probability, various studies concerning STA Liatest D-dimer test have reported that with a cutoff value of 0.50 MG/L FEU, the Negative Predictive Value (NPV) regarding the exclusion of thrombosis is within 95-100% range.[id number] 04:43:00 Test Item Value Reference Range Comments PARTIAL THROMBOPLASTIN TIME (BEAKER) (test 34.4 seconds 22.5-36.0 kgsc=059) PROTHROMBIN [id number] 04:41:00 Test Item Value Reference Range Comments PROTIME (BEAKER) (test xaob=958) 18.7 seconds 11.7-14.7 INR (BEAKER) (test scjq=989) 1.6 <=5.9 RECOMMENDED COUMADIN/WARFARIN INR THERAPY RANGESSTANDARD DOSE: 2.0 - 3.0 Includes: PROPHYLAXIS forvenous thrombosis, systemic embolization; TREATMENT for venous thrombosis and/or pulmonary embolus.HIGH RISK: Target INR is 2.5-3.5 for patients with mechanical heart valves.LACTIC ACID, VENOUS, WHOLE [id number] 04:34:00 Test Item Value Reference Range Comments LACTATE BLOOD VENOUS (2) (BEAKER) (test 2.6 mmol/L 0.5-2.2 hllg=8552) Effective 02/25/2016: Units/Reference Range ChangeNew: 0.5-2.2 mmol/L Previous: 5 -20 mg/dLBLOOD GAS, [id number] 04:19:00 Test Item Value Reference Range Comments PH ARTERIAL (BEAKER) (test zrux=162) 7.59 7.35-7.45 PCO2 ARTERIAL (BEAKER) (test vruw=627) 24 mmHg 35-45 PO2 ARTERIAL (BEAKER) (test ngda=078) 362 mmHg 80-90 O2 SATURATION ARTERIAL (BEAKER) (test mnxs=832) 99.8 % 96.0-97.0 HCO3 ARTERIAL (BEAKER) (test aryi=263) 23 mmol/L 21-29 BASE EXCESS ARTERIAL (BEAKER) (test gacn=428) 1.3 mmol/L -2.0-3.0 PATIENT TEMPERATURE (BEAKER) (test iaqb=2661) 37.5 C FIO2 (BEAKER) (test kiuc=1626) 100.0 % HEMOGLOBIN AND [id number] 02:16:00 Test Item Value Reference Range Comments HEMOGLOBIN (BEAKER) (test vyac=009) 7.9 GM/DL 13.7-17.5 HEMATOCRIT (BEAKER) (test xltx=909) 22.4 % 40.1-51.0 [id number] 00:24:00 Test Item Value Reference Range Comments POTASSIUM (BEAKER) (test umwr=174) 4.1 meq/L 3.5-5.1 CALCIUM, [id number] 00:22:00 Test Item Value Reference Range Comments CALCIUM IONIZED (BEAKER) (test grxv=385) 1.09 mmol/L 1.12-1.27 PH, BLOOD (BEAKER) (test pxvi=1274) 7.44 HEMOGLOBIN AND [id number] 00:16:00 Test Item Value Reference Range Comments HEMOGLOBIN (BEAKER) (test wlkl=433) 8.1 GM/DL 13.7-17.5 HEMATOCRIT (BEAKER) (test wxie=641) 23.8 % 40.1-51.0 HEMOGLOBIN AND [id number] 22:26:00 Test Item Value Reference Range Comments HEMOGLOBIN (BEAKER) (test dayc=658) 8.1 GM/DL 13.7-17.5 HEMATOCRIT (BEAKER) (test bzjp=660) 23.7 % 40.1-51.0 POCT-GLUCOSE [id number] 22:10:00 Test Item Value Reference Range Comments POC-GLUCOSE METER (BEAKER) 257 mg/dL 70-110 TESTED AT [facility] [address] [facility] (test kuao=9987) [facility] [id number] THROMBOELASTOGRAPH (TEG)2018-07-07 21:16:00 Test Item Value Reference Range Comments TEG ACTIVATED CLOTTING TIME (BEAKER) (test 4.7 minutes 4.0-7.0 gtzp=9274) TEG FIBRINOGEN ACTIVITY (BEAKER) (test 72.6 degrees 61.0-73.0 qasw=9963) TEG PLT. AGGREGATION (BEAKER) (test rroa=8671) 58.5 MM 55.0-65.0 TEG FIBRINOLYSIS (BEAKER) (test sqiu=3447) 15.7 % 0.0-5.0 TGH ACTIVATED CLOTTING TIME (BEAKER) (test 4.4 minutes 4.0-7.0 hzbt=5146) TGH FIBRINOGEN ACTIVITY (BEAKER) (test 71.7 degrees 61.0-73.0 hnjb=0548) TGH PLT. AGGREGATION (BEAKER) (test eqxa=0973) 49.1 MM 55.0-65.0 TGH FIBRINOLYSIS (BEAKER) (test acam=8097) 0.0 % 0.0-5.0 [id number] 21:02:00 Test Item Value Reference Range Comments POTASSIUM (BEAKER) (test evpa=283) 4.1 meq/L 3.5-5.1 [id number] 21:02:00 Test Item Value Reference Range Comments MAGNESIUM (BEAKER) (test nnxi=233) 1.7 mg/dL 1.6-2.6 [id number] 21:02:00 Test Item Value Reference Range Comments PHOSPHORUS (BEAKER) (test heth=440) 4.3 mg/dL 2.3-4.7 [id number] 21:02:00 Test Item Value Reference Range Comments SODIUM (BEAKER) (test uvhy=969) 138 meq/L 136-145 CALCIUM, [id number] 20:36:00 Test Item Value Reference Range Comments CALCIUM IONIZED (BEAKER) (test sujl=834) 0.98 mmol/L 1.12-1.27 PH, BLOOD (BEAKER) (test zsta=8694) 7.34 PH, [id number] 20:36:00 Test Item Value Reference Range Comments PH ARTERIAL (BEAKER) (test byoa=317) 7.34 7.35-7.45 HEMOGLOBIN AND [id number] 20:30:00 Test Item Value Reference Range Comments HEMOGLOBIN (BEAKER) (test iryu=085) 7.8 GM/DL 13.7-17.5 HEMATOCRIT (BEAKER) (test mplh=079) 22.8 % 40.1-51.0 RAD, CHEST, 1 VIEW, NON [id number] 19:08:00Reason for exam:->s/p dialysis catheterShould this be [...] MDReport Verified Date/Time: 07/07/2018 19:08:34 Reading Location: [facility] C013W Consult Reading Room ANG, VISCERAL [id number] 18:27:00from ercpFINAL REPORT Exam: Visceral arteriogram Clinical [...] MDReport Verified Date/Time: 07/07/2018 18:27:51 Reading Location: [facility] Radiology Reading Room HEMOGLOBIN AND [id number] 18:25:00 Test Item Value Reference Range Comments HEMOGLOBIN (BEAKER) (test hhsd=150) 7.6 GM/DL 13.7-17.5 HEMATOCRIT (BEAKER) (test fwto=577) 22.8 % 40.1-51.0 TROPONIN [id number] 18:16:00 Test Item Value Reference Range Comments TROPONIN I (BEAKER) (test neix=153) 0.26 ng/mL 0.00-0.03 Troponin I (TnI) levels [...] acute neurological disease, and persistent tachyarrhythmia.BASIC METABOLIC [id number] 17:33:00 Test Item Value Reference Range Comments SODIUM (BEAKER) (test 141 meq/L 136-145 veou=219) POTASSIUM (BEAKER) (test 4.2 meq/L 3.5-5.1 qriu=716) CHLORIDE (BEAKER) (test 107 meq/L 98-107 mncz=120) CO2 (BEAKER) (test 12 meq/L 22-29 nnvp=474) BLOOD UREA NITROGEN 25 mg/dL 7-21 (BEAKER) (test yuiq=212) CREATININE (BEAKER) (test 2.29 mg/dL 0.57-1.25 zfff=340) GLUCOSE RANDOM (BEAKER) 259 mg/dL 70-105 (test ytkl=096) CALCIUM (BEAKER) (test 7.3 mg/dL 8.4-10.2 ungr=289) EGFR (BEAKER) (test 30 mL/min/1.73 sq m ESTIMATED GFR IS NOT gpxj=9255) ACCURATE CREATININE CLEARANCE IN PREDICTING GLOMERULAR FILTRATION RATE. ESTIMATED GFR IS NOT APPLICABLE FOR DIALYSIS PATIENTS. [id number] 17:32:00 Test Item Value Reference Range Comments MAGNESIUM (BEAKER) (test xksn=999) 1.7 mg/dL 1.6-2.6 POCT-GLUCOSE [id number] 17:29:00 Test Item Value Reference Range Comments POC-GLUCOSE METER (BEAKER) 283 mg/dL 70-110 TESTED AT [facility] [address] (test dfpv=4043) [facility] [address] SODIUM, RANDOM [id number] 17:20:00 Test Item Value Reference Range Comments SODIUM URINE (BEAKER) (test tpio=183) < meq/L Reference Range: No NormalsFIBRIN SOLUBLE [id number] 17:20:00 Test Item Value Reference Range Comments FIBRIN SOLUBLE MONOMER (BEAKER) (test jijk=4586) Negative ANG, ARTERIAL EMBOLIZATION FOR [id number] 17:15:00Reason for exam:->s/p ERCP with bleedFINAL REPORT History: Upper GI bleed, active bleeding by recent endoscopy. PROCEDURE: Following informed written consent, the patient's right femoral area was prepped and draped in the usual sterile manner. 2% lidocaine was given locally for anesthesia. No conscious sedation wasadministered. Access was gained to the right common femoral artery and a 5 [place] sheath was placed.A 5 [place] Alcantar B catheter was placed over a wire into the abdominal aorta and used to carefully select and perform celiac and superior mesenteric arteriograms. With the catheter parked in origin of the superior mesenteric artery, coaxial technique was utilized to advance a 3 [place] microcatheter over a wire and into a proximal branch of the places replaced right hepatic artery which appears to be agastroduodenal vessel. Subselective arteriography was performed. The 3 [place] microcatheter was further advanced into a distal [...] removed and hemostasis achieved using a 5 [place] mynx closure device. Overall, the patient tolerated [...] Verified Date/ Time: 07/07/2018 17:15:21 Reading Location: [place] [address] Angio Body Reading Room 05:15 PMCREATININE, RANDOM [id number] 17:14:00 Test Item Value Reference Range Comments CREATININE URINE (BEAKER) (test tznu=808) 68.4 mg/dL Reference Range: No NormalsPROTEIN, RANDOM [id number] 17:14:00 Test Item Value Reference Range Comments PROTEIN, URINE (BEAKER) (test usoi=9468) 33 mg/dL 0-14 [id number] 16:58:00 Test Item Value Reference Range Comments POTASSIUM (BEAKER) (test cjmg=015) 4.2 meq/L 3.5-5.1 URINALYSIS WITH MICROSCOPIC IF [id number] 16:43:00 Test Item Value Reference Range Comments COLOR (BEAKER) (test qytj=794) Yellow CLARITY (BEAKER) (test vvwr=414) Hazy SPECIFIC GRAVITY UA (BEAKER) (test eqli=305) 1.040 1.001-1.035 PH UA (BEAKER) (test znpp=229) 6.0 5.0-8.0 PROTEIN UA (BEAKER) (test dixh=983) 20 mg/dL Negative GLUCOSE UA (BEAKER) (test qqyt=685) 30 mg/dL Negative KETONES UA (BEAKER) (test yowt=596) 10 mg/dL Negative BILIRUBIN UA (BEAKER) (test ktlz=878) Negative Negative BLOOD UA (BEAKER) (test vzdz=995) Negative Negative NITRITE UA (BEAKER) (test umbf=853) Negative Negative LEUKOCYTE ESTERASE UA (BEAKER) (test zmkw=673) Negative Negative UROBILINOGEN UA (BEAKER) (test mylq=804) 0.2 mg/dL 0.2-1.0 SOURCE(BEAKER) (test oxxu=2434) URINALYSIS [id number] 16:43:00 Test Item Value Reference Range Comments RBC UA (BEAKER) (test fxyr=950) 1 /HPF WBC UA (BEAKER) (test azzt=232) 5 /HPF MUCUS (BEAKER) (test naiq=4378) Rare SQUAMOUS EPITHELIAL (BEAKER) (test kefy=886) 1 /HPF HEMOGLOBIN AND [id number] 16:37:00 Test Item Value Reference Range Comments HEMOGLOBIN (BEAKER) (test pveb=532) 8.1 GM/DL 13.7-17.5 HEMATOCRIT (BEAKER) (test mxqi=639) 24.6 % 40.1-51.0 CALCIUM, [id number] 16:23:00 Test Item Value Reference Range Comments CALCIUM IONIZED (BEAKER) (test hzvc=221) 0.91 mmol/L 1.12-1.27 PH, BLOOD (BEAKER) (test ktcs=4010) 7.30 BASIC METABOLIC [id number] 15:27:00 Test Item Value Reference Range Comments SODIUM (BEAKER) (test 134 meq/L 136-145 kmbd=812) POTASSIUM (BEAKER) (test 4.3 meq/L 3.5-5.1 zvmi=918) CHLORIDE (BEAKER) (test 107 meq/L 98-107 pzzm=601) CO2 (BEAKER) (test 13 meq/L 22-29 ltcm=823) BLOOD UREA NITROGEN 24 mg/dL 7-21 (BEAKER) (test kltt=511) CREATININE (BEAKER) (test 2.04 mg/dL 0.57-1.25 xlgs=562) GLUCOSE RANDOM (BEAKER) 247 mg/dL 70-105 (test joyl=195) CALCIUM (BEAKER) (test 6.8 mg/dL 8.4-10.2 kdfd=386) EGFR (BEAKER) (test 34 mL/min/1.73 sq m ESTIMATED GFR IS NOT fwdy=0168) ACCURATE CREATININE CLEARANCE IN PREDICTING GLOMERULAR FILTRATION RATE. ESTIMATED GFR IS NOT APPLICABLE FOR DIALYSIS PATIENTS. [id number] 15:26:00 Test Item Value Reference Range Comments PHOSPHORUS (BEAKER) (test wzqu=835) 4.5 mg/dL 2.3-4.7 [id number] 15:26:00 Test Item Value Reference Range Comments MAGNESIUM (BEAKER) (test iysb=073) 1.6 mg/dL 1.6-2.6 BASIC METABOLIC [id number] 15:26:00 Test Item Value Reference Range Comments SODIUM (BEAKER) (test 134 meq/L 136-145 yfxn=145) POTASSIUM (BEAKER) (test 4.3 meq/L 3.5-5.1 vinm=578) CHLORIDE (BEAKER) (test 107 meq/L 98-107 mred=419) CO2 (BEAKER) (test 13 meq/L 22-29 qxsx=877) BLOOD UREA NITROGEN 25 mg/dL 7-21 (BEAKER) (test zdeo=767) CREATININE (BEAKER) (test 2.04 mg/dL 0.57-1.25 zbxc=231) GLUCOSE RANDOM (BEAKER) 247 mg/dL 70-105 (test hqko=686) CALCIUM (BEAKER) (test 6.8 mg/dL 8.4-10.2 pafe=756) EGFR (BEAKER) (test 34 mL/min/1.73 sq m ESTIMATED GFR IS NOT udjm=9270) ACCURATE CREATININE CLEARANCE IN PREDICTING GLOMERULAR FILTRATION RATE. ESTIMATED GFR IS NOT APPLICABLE FOR DIALYSIS PATIENTS. LACTIC ACID, ARTERIAL, WHOLE [id number] 15:20:00 Test Item Value Reference Range Comments LACTATE BLOOD ARTERIAL (2) (BEAKER) (test 9.1 mmol/L 0.5-2.2 ehdd=3445) Effective 02/25/2016: Units/Reference Range ChangeNew: 0.5-2.2 mmol/L Previous: 5 -20 mg/[id number] 15:14:00 Test Item Value Reference Range Comments FIBRINOGEN LEVEL (BEAKER) (test tfku=140) 158 mg/dl 225-434 PT/[id number] 15:10:00 Test Item Value Reference Range Comments PROTIME (BEAKER) (test hnft=726) 22.1 seconds 11.7-14.7 INR (BEAKER) (test gzqu=517) 1.9 <=5.9 PARTIAL THROMBOPLASTIN TIME (BEAKER) (test 36.0 seconds 22.5-36.0 olyh=663) RECOMMENDED COUMADIN/WARFARIN INR THERAPY RANGESSTANDARD DOSE: 2.0 - 3.0 Includes: PROPHYLAXIS forvenous thrombosis, systemic embolization; TREATMENT for venous thrombosis and/or pulmonary embolus.HIGH RISK: Target INR is 2.5-3.5 for patients with mechanical heart valves.PROTHROMBIN [id number] 15:09: 00 Test Item Value Reference Range Comments PROTIME (BEAKER) (test rivy=213) 22.1 seconds 11.7-14.7 INR (BEAKER) (test vshh=903) 1.9 <=5.9 RECOMMENDED COUMADIN/WARFARIN INR THERAPY RANGESSTANDARD DOSE: 2.0 - 3.0 Includes: PROPHYLAXIS forvenous thrombosis, systemic embolization; TREATMENT for venous thrombosis and/or pulmonary embolus.HIGH RISK: Target INR is 2.5-3.5 for patients with mechanical heart valves.PROTHROMBIN TIME/[id number] 15:08: 00 Test Item Value Reference Range Comments PROTIME (BEAKER) (test uouv=228) 22.2 seconds 11.7-14.7 INR (BEAKER) (test apsk=219) 2.0 <=5.9 RECOMMENDED COUMADIN/WARFARIN INR THERAPY RANGESSTANDARD DOSE: 2.0 - 3.0 Includes: PROPHYLAXIS forvenous thrombosis, systemic embolization; TREATMENT for venous thrombosis and/or pulmonary embolus.HIGH RISK: Target INR is 2.5-3.5 for patients with mechanical heart valves.CBC W/PLT COUNT & AUTO [id number] 15:07:00 Test Item Value Reference Range Comments WHITE BLOOD CELL COUNT (BEAKER) (test lcrl=294) 21.4 K/ L 3.5-10.5 RED BLOOD CELL COUNT (BEAKER) (test pujv=437) 2.92 M/ L 4.63-6.08 HEMOGLOBIN (BEAKER) (test ksor=480) 8.6 GM/DL 13.7-17.5 HEMATOCRIT (BEAKER) (test lbaq=494) 26.1 % 40.1-51.0 MEAN CORPUSCULAR VOLUME (BEAKER) (test svts=533) 89.4 fL 79.0-92.2 MEAN CORPUSCULAR HEMOGLOBIN (BEAKER) (test 29.5 pg 25.7-32.2 yswd=412) MEAN CORPUSCULAR HEMOGLOBIN CONC (BEAKER) (test 33.0 GM/DL 32.3-36.5 terx=797) RED CELL DISTRIBUTION WIDTH (BEAKER) (test 14.6 % 11.6-14.4 sugc=193) PLATELET COUNT (BEAKER) (test potp=210) 99 K/CU MM 150-450 MEAN PLATELET VOLUME (BEAKER) (test rmeu=285) 11.2 fL 9.4-12.4 NUCLEATED RED BLOOD CELLS (BEAKER) (test 0 /100 WBC 0-0 gbvn=876) NEUTROPHILS RELATIVE PERCENT (BEAKER) (test 86 % cszg=983) LYMPHOCYTES RELATIVE PERCENT (BEAKER) (test 7 % wges=106) MONOCYTES RELATIVE PERCENT (BEAKER) (test 6 % dfcz=133) EOSINOPHILS RELATIVE PERCENT (BEAKER) (test 0 % scth=263) BASOPHILS RELATIVE PERCENT (BEAKER) (test 0 % dpcp=117) NEUTROPHILS ABSOLUTE COUNT (BEAKER) (test 18.45 K/ L 1.78-5.38 mnsy=583) LYMPHOCYTES ABSOLUTE COUNT (BEAKER) (test 1.40 K/ L 1.32-3.57 yxsv=886) MONOCYTES ABSOLUTE COUNT (BEAKER) (test vwdb=239) 1.36 K/ L 0.30-0.82 EOSINOPHILS ABSOLUTE COUNT (BEAKER) (test 0.00 K/ L 0.04-0.54 mbyi=304) BASOPHILS ABSOLUTE COUNT (BEAKER) (test ffjy=488) 0.02 K/ L 0.01-0.08 IMMATURE GRANULOCYTES-RELATIVE PERCENT (BEAKER) 1 % 0-1 (test nhyo=2516) BLOOD GAS, [id number] 14:58:00 Test Item Value Reference Range Comments PH ARTERIAL (BEAKER) (test svjt=486) 7.30 7.35-7.45 PCO2 ARTERIAL (BEAKER) (test rtot=116) 30 mmHg 35-45 PO2 ARTERIAL (BEAKER) (test tiyz=695) 188 mmHg 80-90 O2 SATURATION ARTERIAL (BEAKER) (test ezwy=380) 99.2 % 96.0-97.0 HCO3 ARTERIAL (BEAKER) (test conq=007) 14 mmol/L 21-29 BASE EXCESS ARTERIAL (BEAKER) (test eynk=458) -11.0 mmol/L -2.0-3.0 PATIENT TEMPERATURE (BEAKER) (test kbpz=4614) 37.0 C FIO2 (BEAKER) (test tjtg=8399) 40.0 % HEMOGLOBIN AND [id number] 14:56:00 Test Item Value Reference Range Comments HEMOGLOBIN (BEAKER) (test auoo=850) 8.6 GM/DL 13.7-17.5 HEMATOCRIT (BEAKER) (test cssd=527) 25.7 % 40.1-51.0 FIBRIN SOLUBLE [id number] 13:26:00 Test Item Value Reference Range Comments FIBRIN SOLUBLE MONOMER (BEAKER) (test nybu=7161) Negative THROMBOELASTOGRAPH (TEG)2018-07-07 13:00:00 Test Item Value Reference Range Comments TEG ACTIVATED CLOTTING TIME (BEAKER) (test 2.8 minutes 4.0-7.0 uaug=1274) TEG FIBRINOGEN ACTIVITY (BEAKER) (test 68.1 degrees 61.0-73.0 menp=8461) TEG PLT. AGGREGATION (BEAKER) (test xiiz=6965) 51.2 MM 55.0-65.0 TEG FIBRINOLYSIS (BEAKER) (test eacq=5622) 0.0 % 0.0-5.0 TGH ACTIVATED CLOTTING TIME (BEAKER) (test 3.1 minutes 4.0-7.0 jenl=8795) TGH FIBRINOGEN ACTIVITY (BEAKER) (test 67.7 degrees 61.0-73.0 wbpe=6178) TGH PLT. AGGREGATION (BEAKER) (test oeml=5382) 48.9 MM 55.0-65.0 TGH FIBRINOLYSIS (BEAKER) (test rjua=2025) 0.0 % 0.0-5.0 [id number] 12:02:00 Test Item Value Reference Range Comments PARTIAL THROMBOPLASTIN TIME (BEAKER) (test 35.0 seconds 22.5-36.0 qpbe=182) PROTHROMBIN TIME/[id number] 12:01:00 Test Item Value Reference Range Comments PROTIME (ASIM) (test qkgv=340) 20.2 seconds 11.7-14.7 INR (BEAKER) (test zlfm=929) 1.7 <=5.9 RECOMMENDED COUMADIN/WARFARIN INR THERAPY RANGESSTANDARD DOSE: 2.0 - 3.0 Includes: PROPHYLAXIS forvenous thrombosis, systemic embolization; TREATMENT for venous thrombosis and/or pulmonary embolus.HIGH RISK: Target INR is 2.5-3.5 for patients with mechanical heart valves.MA, [id number] 11:51:00Reason for exam:->bleeding s/p ercpFINAL REPORT ERCP, [...] Verified Date/ Time: 07/07/2018 11:51:44 Reading Location: [address] Radiology Reading Room Electronically signedby: EMILE LOCKHART M.D. on 07/07/2018 11:51 AMLACTIC ACID, ARTERIAL, WHOLE [id number] 11:48:00 Test Item Value Reference Range Comments LACTATE BLOOD ARTERIAL (2) (ASIM) (test 7.4 mmol/L 0.5-2.2 lqey=0086) Effective 02/25/2016: Units/Reference Range ChangeNew: 0.5-2.2 mmol/L Previous: 5 -20 mg/oIV-[id number] 11:36:00 Test Item Value Reference Range Comments D-DIMER QUANTITATIVE (VANESSAAKER) (test opsq=263) 1.79 MG/L FEU <0.50 Intended Use: The [...] of thrombosis is within 95-100% range.BLOOD GAS, [id number] 11:35:00 Test Item Value Reference Range Comments PH ARTERIAL (BEAKER) (test fkgq=300) 7.31 7.35-7.45 PCO2 ARTERIAL (BEAKER) (test cbzj=022) 35 mmHg 35-45 PO2 ARTERIAL (BEAKER) (test hbgm=089) 135 mmHg 80-90 O2 SATURATION ARTERIAL (BEAKER) (test cpqb=031) 98.5 % 96.0-97.0 HCO3 ARTERIAL (BEAKER) (test nvhi=584) 18 mmol/L 21-29 BASE EXCESS ARTERIAL (BEAKER) (test arvx=791) -8.1 mmol/L -2.0-3.0 PATIENT TEMPERATURE (BEAKER) (test imrd=7284) 36.5 C FIO2 (BEAKER) (test asyr=5242) 40.0 % HEMOGLOBIN AND [id number] 11:27:00 Test Item Value Reference Range Comments HEMOGLOBIN (BEAKER) (test xmwg=490) 9.2 GM/DL 13.7-17.5 HEMATOCRIT (BEAKER) (test vadp=883) 28.2 % 40.1-51.0 POCT-GLUCOSE [id number] 11:22:00 Test Item Value Reference Range Comments POC-GLUCOSE METER (BEAKER) 240 mg/dL 70-110 TESTED AT [address] (test fkcd=6101) [facility] [address] RAD, CHEST, 1 VIEW, NON [id number] 10:14:00Reason for exam:-> intubationShould this be performed [...] MDReport Verified Date/Time: 07/07/2018 10:14:17 [facility] [place] [facility] Reading Room Electronicallysigned by: AAKASH HOWE M.D. on 07/07/2018 10:14 AMBASIC METABOLIC [id number] 09:45:00 Test Item Value Reference Range Comments SODIUM (BEAKER) (test 137 meq/L 136-145 itjk=617) POTASSIUM (BEAKER) (test 4.2 meq/L 3.5-5.1 luet=673) CHLORIDE (BEAKER) (test 108 meq/L 98-107 uitd=495) CO2 (BEAKER) (test 16 meq/L 22-29 tgrb=691) BLOOD UREA NITROGEN 20 mg/dL 7-21 (BEAKER) (test llzy=717) CREATININE (BEAKER) (test 1.41 mg/dL 0.57-1.25 tmhu=399) GLUCOSE RANDOM (BEAKER) 281 mg/dL 70-105 (test rcxx=624) CALCIUM (BEAKER) (test 6.6 mg/dL 8.4-10.2 eltw=783) EGFR (BEAKER) (test 52 mL/min/1.73 sq m ESTIMATED GFR IS NOT ivdt=1931) ACCURATE CREATININE CLEARANCE IN PREDICTING GLOMERULAR FILTRATION RATE. ESTIMATED GFR IS NOT APPLICABLE FOR DIALYSIS PATIENTS. [id number] 09:38:00 Test Item Value Reference Range Comments FIBRINOGEN LEVEL (BEAKER) (test ravt=960) 146 mg/dl 225-434 HEMOGLOBIN AND [id number] 09:19:00 Test Item Value Reference Range Comments HEMOGLOBIN (BEAKER) (test qzhd=248) 7.7 GM/DL 13.7-17.5 HEMATOCRIT (BEAKER) (test nfot=763) 23.4 % 40.1-51.0 BLOOD GAS, [id number] 09:18:00 Test Item Value Reference Range Comments PH ARTERIAL (BEAKER) (test lqyf=705) 7.32 7.35-7.45 PCO2 ARTERIAL (BEAKER) (test ragd=330) 35 mmHg 35-45 PO2 ARTERIAL (BEAKER) (test pvzt=155) 124 mmHg 80-90 O2 SATURATION ARTERIAL (BEAKER) (test jpyf=859) 98.4 % 96.0-97.0 HCO3 ARTERIAL (BEAKER) (test eysv=568) 18 mmol/L 21-29 BASE EXCESS ARTERIAL (BEAKER) (test fvdc=207) -8.0 mmol/L -2.0-3.0 PATIENT TEMPERATURE (BEAKER) (test khwa=3322) 35.0 C FIO2 (BEAKER) (test dryh=4540) 40.0 % [id number] 08:27:00 Test Item Value Reference Range Comments PARTIAL THROMBOPLASTIN TIME (BEAKER) (test 37.9 seconds 22.5-36.0 nxlk=878) PROTHROMBIN [id number] 08:26:00 Test Item Value Reference Range Comments PROTIME (BEAKER) (test hqvp=404) 23.5 seconds 11.7-14.7 INR (BEAKER) (test hplq=627) 2.1 <=5.9 RECOMMENDED COUMADIN/WARFARIN INR THERAPY RANGESSTANDARD DOSE: 2.0 - 3.0 Includes: PROPHYLAXIS forvenous thrombosis, systemic embolization; TREATMENT for venous thrombosis and/or pulmonary embolus.HIGH RISK: Target INR is 2.5-3.5 for patients with mechanical heart valves.HEMOGLOBIN AND [id number] 08 :08:00 Test Item Value Reference Range Comments HEMOGLOBIN (BEAKER) (test atcw=744) 7.7 GM/DL 13.7-17.5 HEMATOCRIT (BEAKER) (test gnda=928) 23.3 % 40.1-51.0 BASIC METABOLIC [id number] 06:32:00 Test Item Value Reference Range Comments SODIUM (BEAKER) (test 134 meq/L 136-145 mvjl=159) POTASSIUM (BEAKER) (test 4.9 meq/L 3.5-5.1 ubdg=467) CHLORIDE (BEAKER) (test 101 meq/L 98-107 jmto=181) CO2 (BEAKER) (test 26 meq/L 22-29 apgx=825) BLOOD UREA NITROGEN 21 mg/dL 7-21 (BEAKER) (test rzsi=552) CREATININE (BEAKER) (test 1.49 mg/dL 0.57-1.25 kxgz=764) GLUCOSE RANDOM (BEAKER) 195 mg/dL 70-105 (test iefo=293) CALCIUM (BEAKER) (test 7.4 mg/dL 8.4-10.2 jjgu=301) EGFR (BEAKER) (test 49 mL/min/1.73 sq m ESTIMATED GFR IS NOT khgq=8674) ACCURATE CREATININE CLEARANCE IN PREDICTING GLOMERULAR FILTRATION RATE. ESTIMATED GFR IS NOT APPLICABLE FOR DIALYSIS PATIENTS. Specimen slightly [id number] 06:21:00 Test Item Value Reference Range Comments MAGNESIUM (BEAKER) (test pmej=314) 2.0 mg/dL 1.6-2.6 HEPATIC FUNCTION [id number] 06:21:00 Test Item Value Reference Range Comments TOTAL PROTEIN (BEAKER) (test vxno=526) 4.7 gm/dL 6.0-8.3 ALBUMIN (BEAKER) (test ueej=1331) 2.7 g/dL 3.5-5.0 BILIRUBIN TOTAL (BEAKER) (test kxzr=478) 3.7 mg/dL 0.2-1.2 BILIRUBIN DIRECT (BEAKER) (test ihdt=940) 2.8 mg/dL 0.1-0.5 ALKALINE PHOSPHATASE (BEAKER) (test yvpm=037) 145 U/L 40-150 AST (SGOT) (BEAKER) (test oehi=610) 44 U/L 5-34 ALT (SGPT) (BEAKER) (test ruov=110) 29 U/L 6-55 Specimen slightly ictericLACTIC ACID, VENOUS, WHOLE [id number] 06:16:00 Test Item Value Reference Range Comments LACTATE BLOOD VENOUS (2) (BEAKER) (test 2.2 mmol/L 0.5-2.2 rugy=5076) Effective 02/25/2016: Units/Reference Range ChangeNew: 0.5-2.2 mmol/L Previous: 5 -20 mg/dLSpecimen slightly ictericHEMOGLOBIN AND [id number] 06:06:00 Test Item Value Reference Range Comments HEMOGLOBIN (BEAKER) (test trft=008) 10.2 GM/DL 13.7-17.5 HEMATOCRIT (BEAKER) (test crhs=550) 31.7 % 40.1-51.0 LACTIC ACID, VENOUS, WHOLE [id number] 03:14:00 Test Item Value Reference Range Comments LACTATE BLOOD VENOUS (2) (BEAKER) (test 1.3 mmol/L 0.5-2.2 vdrr=5782) Effective 02/25/2016: Units/Reference Range ChangeNew: 0.5-2.2 mmol/L Previous: 5 -20 mg/dLSpecimen slightly ictericHEMOGLOBIN AND [id number] 03:08:00 Test Item Value Reference Range Comments HEMOGLOBIN (BEAKER) (test hcpj=383) 11.2 GM/DL 13.7-17.5 HEMATOCRIT (BEAKER) (test fegm=862) 34.8 % 40.1-51.0 HEMOGLOBIN AND [id number] 00:22:00 Test Item Value Reference Range Comments HEMOGLOBIN (BEAKER) (test ytia=825) 6.8 GM/DL 13.7-17.5 HEMATOCRIT (BEAKER) (test msda=900) 21.6 % 40.1-51.0 LACTIC ACID, VENOUS, WHOLE [id number] 23:30:00 Test Item Value Reference Range Comments LACTATE BLOOD VENOUS (2) 1.2 mmol/L 0.5-2.2 Specimen slightly hemolyzed (BEAKER) (test dday=4690) Effective 02/25/2016: Units/Reference Range ChangeNew: 0.5-2.2 mmol/L Previous: 5 -20 mg/dLSpecimen moderately [id number] 23:08:00 Test Item Value Reference Range Comments PROCALCITONIN (BEAKER) (test frux=5614) 0.48 ng/mL <0.05 SEPSIS RISK (ng/mL)Low: 0.05-0.50Intermediate: 0.51-2.00High: & gt;=2.01RAD, CHEST, 1 VIEW, NON [id number] 23:07:00Reason for exam:->abd painShould this be performed [...] MDReport Verified Date/Time: 07/06/2018 23:07:59 Reading Location: [facility] B1 [id number] Consult Reading Room [id number] 22:48:00 Test Item Value Reference Range Comments LIPASE (BEAKER) (test nyuy=858) > U/L 8-78 Specimen moderately [id number] 22:42:00 Test Item Value Reference Range Comments MAGNESIUM (BEAKER) (test rkpi=209) 1.9 mg/dL 1.6-2.6 COMPREHENSIVE METABOLIC [id number] 22:42:00 Test Item Value Reference Range Comments TOTAL PROTEIN (BEAKER) 6.2 gm/dL 6.0-8.3 (test situ=080) ALBUMIN (BEAKER) (test 3.4 g/dL 3.5-5.0 fjyw=1530) ALKALINE PHOSPHATASE 264 U/L 40-150 (BEAKER) (test zrdz=481) BILIRUBIN TOTAL (BEAKER) 4.9 mg/dL 0.2-1.2 (test bhni=393) SODIUM (BEAKER) (test 135 meq/L 136-145 ftzn=854) POTASSIUM (BEAKER) (test 4.3 meq/L 3.5-5.1 mzjo=601) CHLORIDE (BEAKER) (test 97 meq/L 98-107 kgxc=694) CO2 (BEAKER) (test 27 meq/L 22-29 jurv=734) BLOOD UREA NITROGEN 19 mg/dL 7-21 (BEAKER) (test kgui=747) CREATININE (BEAKER) (test 1.46 mg/dL 0.57-1.25 tdpu=044) GLUCOSE RANDOM (BEAKER) 148 mg/dL 70-105 (test vkob=164) CALCIUM (BEAKER) (test 8.7 mg/dL 8.4-10.2 gsql=290) AST (SGOT) (BEAKER) (test 76 U/L 5-34 msaj=198) ALT (SGPT) (BEAKER) (test 46 U/L 6-55 ipbc=091) EGFR (BEAKER) (test 50 mL/min/1.73 sq m ESTIMATED GFR IS NOT fnql=3478) ACCURATE CREATININE CLEARANCE IN PREDICTING GLOMERULAR FILTRATION RATE. ESTIMATED GFR IS NOT APPLICABLE FOR DIALYSIS PATIENTS. Specimen moderately ictericCBC W/PLT COUNT & AUTO [id number] 22: 23:00 Test Item Value Reference Range Comments WHITE BLOOD CELL COUNT (BEAKER) (test wxfm=789) 11.6 K/ L 3.5-10.5 RED BLOOD CELL COUNT (BEAKER) (test yioz=495) 4.56 M/ L 4.63-6.08 HEMOGLOBIN (BEAKER) (test yhqw=029) 12.6 GM/DL 13.7-17.5 HEMATOCRIT (BEAKER) (test oast=831) 39.2 % 40.1-51.0 MEAN CORPUSCULAR VOLUME (BEAKER) (test shwc=410) 86.0 fL 79.0-92.2 MEAN CORPUSCULAR HEMOGLOBIN (BEAKER) (test 27.6 pg 25.7-32.2 diwg=471) MEAN CORPUSCULAR HEMOGLOBIN CONC (BEAKER) (test 32.1 GM/DL 32.3-36.5 tmjx=509) RED CELL DISTRIBUTION WIDTH (BEAKER) (test 15.9 % 11.6-14.4 zbqm=743) PLATELET COUNT (BEAKER) (test iagr=168) 251 K/CU MM 150-450 MEAN PLATELET VOLUME (BEAKER) (test xfdn=738) 9.7 fL 9.4-12.4 NUCLEATED RED BLOOD CELLS (BEAKER) (test 0 /100 WBC 0-0 kihk=313) NEUTROPHILS RELATIVE PERCENT (BEAKER) (test 80 % btyt=354) LYMPHOCYTES RELATIVE PERCENT (BEAKER) (test 10 % afit=192) MONOCYTES RELATIVE PERCENT (BEAKER) (test 9 % kidt=448) EOSINOPHILS RELATIVE PERCENT (BEAKER) (test 0 % gzhd=360) BASOPHILS RELATIVE PERCENT (BEAKER) (test 0 % njsr=010) NEUTROPHILS ABSOLUTE COUNT (BEAKER) (test 9.26 K/ L 1.78-5.38 ipym=952) LYMPHOCYTES ABSOLUTE COUNT (BEAKER) (test 1.19 K/ L 1.32-3.57 enbw=222) MONOCYTES ABSOLUTE COUNT (BEAKER) (test 1.07 K/ L 0.30-0.82 xekm=600) EOSINOPHILS ABSOLUTE COUNT (BEAKER) (test 0.03 K/ L 0.04-0.54 jvhn=596) BASOPHILS ABSOLUTE COUNT (BEAKER) (test 0.03 K/ L 0.01-0.08 rxnb=954) IMMATURE GRANULOCYTES-RELATIVE PERCENT (BEAKER) 0 % 0-1 (test lpvg=5844) [id number] 22:20:00 Test Item Value Reference Range Comments PARTIAL THROMBOPLASTIN TIME (BEAKER) (test 31.2 seconds 22.5-36.0 yryt=954) PROTHROMBIN TIME/[id number] 22:19:00 Test Item Value Reference Range Comments PROTIME (BEAKER) (test fcbl=779) 17.0 seconds 11.7-14.7 INR (BEAKER) (test tdch=158) 1.4 <=5.9 RECOMMENDED COUMADIN/WARFARIN INR THERAPY RANGESSTANDARD DOSE: 2.0 - 3.0 Includes: PROPHYLAXIS forvenous thrombosis, systemic embolization; TREATMENT for venous thrombosis and/or pulmonary embolus.HIGH RISK: Target INR is 2.5-3.5 for patients with mechanical heart valves.POCT-LACTIC ACID, [id number] 22: 15:00 Test Item Value Reference Range Comments POC-LACTIC ACID, VENOUS 1.3 mmol/L 0.9-1.7 TESTED AT [address] [facility] (test upyl=5922) [facility] [address] POCT-BLOOD GASES, [id number] 22:15:00 Test Item Value Reference Range Comments TEMP, CELSIUS-POC (BEAKER) 37.0 (test tfwy=0845) FIO2-POC (BEAKER) (test TESTED AT [address] fuil=5282) [place] [id number] PH, VENOUS-POC (BEAKER) 7.388 7.320-7.420 (test yqpj=6906) PCO2, VENOUS-POC (BEAKER) 52.9 mm Hg 41.0-51.0 (test rcmt=5454) PO2, VENOUS-POC (BEAKER) 31.0 mm Hg 25.0-40.0 (test ansu=2878) SO2, VENOUS-POC (BEAKER) 57.0 % 40.0-70.0 (test ksxq=1610) HCO3, VENOUS-POC (BEAKER) 31.9 meq/L 21.0-29.0 (test erzc=0090) BASE EXCESS, VENOUS-POC 7.0 meq/L -2.0-3.0 (BEAKER) (test bxzr=7827) [id number] 22:15:00 Test Item Value Reference Range Comments POC-SODIUM (BEAKER) (test 136 meq/L 135-148 TESTED AT [address] dxyk=0827) [place] [id number] 22:15:00 Test Item Value Reference Range Comments POC-POTASSIUM (BEAKER) (test 4.3 meq/L 3.6-5.5 TESTED AT [address] jcqy=1871) [place] [address] [id number] 22:15:00 Test Item Value Reference Range Comments POC-GLUCOSE (BEAKER) (test 147 mg/dL 70-110 TESTED AT [address] eany=3508) [place] [address] POCT-CALCIUM [id number] 22:15:00 Test Item Value Reference Range Comments POC-CALCIUM IONIZED (BEAKER) 1.10 mmol/L 1.12-1.27 TESTED AT [address] (test exch=0639) [place] [address] [id number] 22:15:00 Test Item Value Reference Range Comments POC-HEMATOCRIT (BEAKER) (test 38 % 40-50 TESTED AT [address] oeop=7852) [place] [address] [id number] 22:15:00 Test Item Value Reference Range Comments POC-HEMOGLOBIN (BEAKER) 12.9 g/dL 13.0-16.8 TESTED AT [address] (test vrmg=2754) [place] [address]TESTED AT [place] [address] POCT-GLUCOSE [id number] 21:38:00 Test Item Value Reference Range Comments POC-GLUCOSE METER (BEAKER) 138 mg/dL 70-110 TESTED AT [address] (test qmcc=8519) [place] [id number] POCT-GLUCOSE [id number] 19:35:00 Test Item Value Reference Range Comments POC-GLUCOSE METER (BEAKER) 116 mg/dL 70-110 TESTED AT [address] (test epgk=6920) [place] [address] PROTHROMBIN [id number] 18:18:00 Test Item Value Reference Range Comments PROTIME (BEAKER) (test csqm=752) 15.5 seconds 11.7-14.7 INR (BEAKER) (test efsd=620) 1.2 <=5.9 RECOMMENDED COUMADIN/WARFARIN INR THERAPY RANGESSTANDARD DOSE: 2.0 - 3.0 Includes: PROPHYLAXIS forvenous thrombosis, systemic embolization; TREATMENT for venous thrombosis and/or pulmonary embolus.HIGH RISK: Target INR is 2.5-3.5 for patients with mechanical heart valves.[id number] 18:18:00 Test Item Value Reference Range Comments PARTIAL THROMBOPLASTIN TIME (BEAKER) (test 36.5 seconds 22.5-36.0 nqir=383) CBC W/PLT COUNT & AUTO [id number] 18:11:00 Test Item Value Reference Range Comments WHITE BLOOD CELL COUNT (BEAKER) (test irhy=860) 9.6 K/ L 3.5-10.5 RED BLOOD CELL COUNT (BEAKER) (test spjd=910) 6.06 M/ L 4.63-6.08 HEMOGLOBIN (BEAKER) (test ippp=148) 16.4 GM/DL 13.7-17.5 HEMATOCRIT (BEAKER) (test pbay=858) 51.8 % 40.1-51.0 MEAN CORPUSCULAR VOLUME (BEAKER) (test arqk=691) 85.5 fL 79.0-92.2 MEAN CORPUSCULAR HEMOGLOBIN (BEAKER) (test 27.1 pg 25.7-32.2 hbuh=428) MEAN CORPUSCULAR HEMOGLOBIN CONC (BEAKER) (test 31.7 GM/DL 32.3-36.5 idxm=711) RED CELL DISTRIBUTION WIDTH (BEAKER) (test 16.2 % 11.6-14.4 tyzg=171) PLATELET COUNT (BEAKER) (test yudf=124) 247 K/CU MM 150-450 MEAN PLATELET VOLUME (BEAKER) (test gofy=387) 10.5 fL 9.4-12.4 NUCLEATED RED BLOOD CELLS (BEAKER) (test 0 /100 WBC 0-0 tcut=768) NEUTROPHILS RELATIVE PERCENT (BEAKER) (test 75 % drnu=142) LYMPHOCYTES RELATIVE PERCENT (BEAKER) (test 14 % gezm=514) MONOCYTES RELATIVE PERCENT (BEAKER) (test 8 % yohi=107) EOSINOPHILS RELATIVE PERCENT (BEAKER) (test 3 % bcvf=161) BASOPHILS RELATIVE PERCENT (BEAKER) (test 0 % wwbi=991) NEUTROPHILS ABSOLUTE COUNT (BEAKER) (test 7.19 K/ L 1.78-5.38 szau=508) LYMPHOCYTES ABSOLUTE COUNT (BEAKER) (test 1.30 K/ L 1.32-3.57 pzqt=029) MONOCYTES ABSOLUTE COUNT (BEAKER) (test 0.74 K/ L 0.30-0.82 eqkv=030) EOSINOPHILS ABSOLUTE COUNT (BEAKER) (test 0.24 K/ L 0.04-0.54 mhan=556) BASOPHILS ABSOLUTE COUNT (BEAKER) (test 0.04 K/ L 0.01-0.08 qyxh=191) IMMATURE GRANULOCYTES-RELATIVE PERCENT (BEAKER) 0 % 0-1 (test xtrk=7821) [place], [id number] 17:27:00Reason for exam:->cbd stonesFINAL REPORT Fluoroscopy. History: Intraoperative. Findings: Radiologist wasnot present for the exam. Fluoroscopy was not performed by the undersigned. Please see operative/endoscopy report for details. Fluoroscopy Time: 2.5 min.One spot image was saved. IMPRESSION:Intraoperative fluoroscopy. Please see operative report for details. Signed: Steve Hernandez Verified Date /Time: 07/06/2018 17:27:55 Reading Location: [facility] Diagnostic Imaging Reading Room - [place] [id number] Electronically signed by: STEVE HERNANDEZ on 05:27 PMPOCT-GLUCOSE [id number] 12:00:00 Test Item Value Reference Range Comments POC-GLUCOSE METER (BEAKER) 100 mg/dL 70-110 TESTED AT [facility] [address] [facility] (test schm=2545) [facility] [address] POCT-GLUCOSE [id number] 08:03:00 Test Item Value Reference Range Comments POC-GLUCOSE METER (BEAKER) 116 mg/dL 70-110 TESTED AT [facility] [address] [facility] (test mitx=9274) [facility] [address] [id number] 07:04:00 Test Item Value Reference Range Comments MAGNESIUM (BEAKER) (test vdhh=335) 2.3 mg/dL 1.6-2.6 BASIC METABOLIC [id number] 07:04:00 Test Item Value Reference Range Comments SODIUM (BEAKER) (test 136 meq/L 136-145 rpqy=562) POTASSIUM (BEAKER) (test 3.9 meq/L 3.5-5.1 rhdw=280) CHLORIDE (BEAKER) (test 96 meq/L 98-107 vola=848) CO2 (BEAKER) (test 31 meq/L 22-29 vlmr=839) BLOOD UREA NITROGEN 18 mg/dL 7-21 (BEAKER) (test enhs=468) CREATININE (BEAKER) (test 1.17 mg/dL 0.57-1.25 phzh=930) GLUCOSE RANDOM (BEAKER) 132 mg/dL 70-105 (test bwnz=852) CALCIUM (BEAKER) (test 9.6 mg/dL 8.4-10.2 birz=489) EGFR (BEAKER) (test 64 mL/min/1.73 sq m ESTIMATED GFR IS NOT hnzy=8667) ACCURATE CREATININE CLEARANCE IN PREDICTING GLOMERULAR FILTRATION RATE. ESTIMATED GFR IS NOT APPLICABLE FOR DIALYSIS PATIENTS. Specimen moderately ictericHEPATIC FUNCTION [id number] 07:04:00 Test Item Value Reference Range Comments TOTAL PROTEIN (BEAKER) (test urmb=465) 7.2 gm/dL 6.0-8.3 ALBUMIN (BEAKER) (test vixw=1887) 3.8 g/dL 3.5-5.0 BILIRUBIN TOTAL (BEAKER) (test xgwq=645) 5.9 mg/dL 0.2-1.2 BILIRUBIN DIRECT (BEAKER) (test nwqr=403) 4.0 mg/dL 0.1-0.5 ALKALINE PHOSPHATASE (BEAKER) (test fppp=317) 317 U/L 40-150 AST (SGOT) (BEAKER) (test cdzc=399) 110 U/L 5-34 ALT (SGPT) (BEAKER) (test fgxp=310) 57 U/L 6-55 Specimen moderately [id number] 03:15:00 Test Item Value Reference Range Comments MAGNESIUM (BEAKER) (test 2.5 mg/dL 1.6-2.6 Specimen slightly hemolyzed wthu=245) BASIC METABOLIC [id number] 03:15:00 Test Item Value Reference Range Comments SODIUM (BEAKER) (test 135 meq/L 136-145 murd=272) POTASSIUM (BEAKER) (test 4.6 meq/L 3.5-5.1 Specimen slightly vlyz=390) hemolyzed CHLORIDE (BEAKER) (test 95 meq/L 98-107 gfaw=700) CO2 (BEAKER) (test 28 meq/L 22-29 hqeo=755) BLOOD UREA NITROGEN 18 mg/dL 7-21 (BEAKER) (test steq=737) CREATININE (BEAKER) (test 1.10 mg/dL 0.57-1.25 Specimen slightly dqoc=598) hemolyzed GLUCOSE RANDOM (BEAKER) 150 mg/dL 70-105 (test kxmp=758) CALCIUM (BEAKER) (test 9.6 mg/dL 8.4-10.2 sejl=669) EGFR (BEAKER) (test 69 mL/min/1.73 sq m ESTIMATED GFR IS NOT ndnz=4862) ACCURATE CREATININE CLEARANCE IN PREDICTING GLOMERULAR FILTRATION RATE. ESTIMATED GFR IS NOT APPLICABLE FOR DIALYSIS PATIENTS. Specimen moderately ictericHEPATIC FUNCTION [id number] 03:15:00 Test Item Value Reference Range Comments TOTAL PROTEIN (BEAKER) (test 7.7 gm/dL 6.0-8.3 Specimen slightly hemolyzed cynf=600) ALBUMIN (BEAKER) (test 3.9 g/dL 3.5-5.0 Specimen slightly hemolyzed jwsj=7431) BILIRUBIN TOTAL (BEAKER) (test 6.0 mg/dL 0.2-1.2 Specimen slightly hemolyzed ggzv=951) BILIRUBIN DIRECT (BEAKER) (test 3.6 mg/dL 0.1-0.5 Specimen slightly hemolyzed euph=548) ALKALINE PHOSPHATASE (BEAKER) 330 U/L 40-150 (test uxsi=443) AST (SGOT) (BEAKER) (test 110 U/L 5-34 Specimen slightly hemolyzed kvvg=567) ALT (SGPT) (BEAKER) (test 55 U/L 6-55 Specimen slightly hemolyzed snjy=895) Specimen moderately ictericPOCT-GLUCOSE [id number] 22:02:00 Test Item Value Reference Range Comments POC-GLUCOSE METER (BEAKER) 140 mg/dL 70-110 TESTED AT [address] (test onbi=9034) [facility] [address] POCT-GLUCOSE [id number] 16:27:00 Test Item Value Reference Range Comments POC-GLUCOSE METER (BEAKER) 103 mg/dL 70-110 TESTED AT [address] (test zcdv=8885) [facility] [address] POCT-GLUCOSE [id number] 11:55:00 Test Item Value Reference Range Comments POC-GLUCOSE METER (BEAKER) 123 mg/dL 70-110 TESTED AT [address] (test wfxr=0420) [facility] [address] POCT-GLUCOSE [id number] 08:13:00 Test Item Value Reference Range Comments POC-GLUCOSE METER (BEAKER) 116 mg/dL 70-110 TESTED AT [address] (test qzls=1824) [facility] [address] [id number] 07:53:00 Test Item Value Reference Range Comments MAGNESIUM (BEAKER) (test fsno=071) 1.9 mg/dL 1.6-2.6 BASIC METABOLIC [id number] 07:53:00 Test Item Value Reference Range Comments SODIUM (BEAKER) (test 141 meq/L 136-145 okgm=256) POTASSIUM (BEAKER) (test 3.6 meq/L 3.5-5.1 jsor=237) CHLORIDE (BEAKER) (test 98 meq/L 98-107 xmyp=706) CO2 (BEAKER) (test 32 meq/L 22-29 riet=524) BLOOD UREA NITROGEN 19 mg/dL 7-21 (BEAKER) (test zboc=649) CREATININE (BEAKER) (test 1.14 mg/dL 0.57-1.25 vpro=690) GLUCOSE RANDOM (BEAKER) 101 mg/dL 70-105 (test dzdj=084) CALCIUM (BEAKER) (test 9.6 mg/dL 8.4-10.2 phaz=563) EGFR (BEAKER) (test 66 mL/min/1.73 sq m ESTIMATED GFR IS NOT rorh=2521) ACCURATE CREATININE CLEARANCE IN PREDICTING GLOMERULAR FILTRATION RATE. ESTIMATED GFR IS NOT APPLICABLE FOR DIALYSIS PATIENTS. Specimen slightly ictericHEPATIC FUNCTION [id number] 07:53:00 Test Item Value Reference Range Comments TOTAL PROTEIN (BEAKER) (test tauk=607) 7.4 gm/dL 6.0-8.3 ALBUMIN (BEAKER) (test balg=5927) 3.9 g/dL 3.5-5.0 BILIRUBIN TOTAL (BEAKER) (test bdkm=130) 2.1 mg/dL 0.2-1.2 BILIRUBIN DIRECT (BEAKER) (test rhvk=046) 1.1 mg/dL 0.1-0.5 ALKALINE PHOSPHATASE (BEAKER) (test aiom=150) 111 U/L 40-150 AST (SGOT) (BEAKER) (test coli=087) 24 U/L 5-34 ALT (SGPT) (BEAKER) (test uzsa=942) 12 U/L 6-55 Specimen slightly ictericPOCT-GLUCOSE [id number] 20:53:00 Test Item Value Reference Range Comments POC-GLUCOSE METER (BEAKER) 168 mg/dL 70-110 TESTED AT [facility] [address] [facility] (test opbx=9809) [facility] [address] [id number] 17:12:00 Test Item Value Reference Range Comments MAGNESIUM (BEAKER) (test lelo=303) 2.1 mg/dL 1.6-2.6 BASIC METABOLIC [id number] 17:12:00 Test Item Value Reference Range Comments SODIUM (BEAKER) (test 140 meq/L 136-145 zqci=000) POTASSIUM (BEAKER) (test 3.6 meq/L 3.5-5.1 graf=840) CHLORIDE (BEAKER) (test 96 meq/L 98-107 pzzp=687) CO2 (BEAKER) (test 35 meq/L 22-29 ckfx=090) BLOOD UREA NITROGEN 22 mg/dL 7-21 (BEAKER) (test rswj=096) CREATININE (BEAKER) (test 1.35 mg/dL 0.57-1.25 zqmq=012) GLUCOSE RANDOM (BEAKER) 148 mg/dL 70-105 (test hpci=449) CALCIUM (BEAKER) (test 9.9 mg/dL 8.4-10.2 xxeq=609) EGFR (BEAKER) (test 55 mL/min/1.73 sq m ESTIMATED GFR IS NOT pypi=2624) ACCURATE CREATININE CLEARANCE IN PREDICTING GLOMERULAR FILTRATION RATE. ESTIMATED GFR IS NOT APPLICABLE FOR DIALYSIS PATIENTS. POCT-GLUCOSE [id number] 17:00:00 Test Item Value Reference Range Comments POC-GLUCOSE METER (BEAKER) 138 mg/dL 70-110 TESTED AT [facility] [address] [facility] (test qlyu=3773) [facility] [address] POCT-GLUCOSE [id number] 12:09:00 Test Item Value Reference Range Comments POC-GLUCOSE METER (BEAKER) 111 mg/dL 70-110 TESTED AT [facility] [address] [facility] (test veei=2119) [facility] [address] POCT-GLUCOSE [id number] 07:30:00 Test Item Value Reference Range Comments POC-GLUCOSE METER (BEAKER) 102 mg/dL 70-110 TESTED AT [address] (test efxn=4300) [facility] [address] U/S, ABDOMINAL, [id number] 07:27:00Please perform with doppler to evaluate for [...] MDReport Verified Date/Time: 07/04/2018 07:27:18 Reading Location: [facility] [id number] Ultrasound Reading Room [id number] 07:12:00 Test Item Value Reference Range Comments MAGNESIUM (BEAKER) (test 1.8 mg/dL 1.6-2.6 Specimen slightly hemolyzed jdvb=247) BASIC METABOLIC [id number] 07:12:00 Test Item Value Reference Range Comments SODIUM (BEAKER) (test 140 meq/L 136-145 hpse=208) POTASSIUM (BEAKER) (test 3.7 meq/L 3.5-5.1 Specimen slightly jkap=423) hemolyzed CHLORIDE (BEAKER) (test 100 meq/L 98-107 swwq=102) CO2 (BEAKER) (test 29 meq/L 22-29 sprq=411) BLOOD UREA NITROGEN 22 mg/dL 7-21 (BEAKER) (test zkir=732) CREATININE (BEAKER) (test 1.09 mg/dL 0.57-1.25 Specimen slightly jfku=986) hemolyzed GLUCOSE RANDOM (BEAKER) 103 mg/dL 70-105 (test asna=803) CALCIUM (BEAKER) (test 9.4 mg/dL 8.4-10.2 kuse=208) EGFR (BEAKER) (test 70 mL/min/1.73 sq m ESTIMATED GFR IS NOT swbt=8955) ACCURATE CREATININE CLEARANCE IN PREDICTING GLOMERULAR FILTRATION RATE. ESTIMATED GFR IS NOT APPLICABLE FOR DIALYSIS PATIENTS. HEPATIC FUNCTION [id number] 07:12:00 Test Item Value Reference Range Comments TOTAL PROTEIN (BEAKER) (test 6.8 gm/dL 6.0-8.3 Specimen slightly hemolyzed zmuh=601) ALBUMIN (BEAKER) (test 3.6 g/dL 3.5-5.0 Specimen slightly hemolyzed lqxs=9479) BILIRUBIN TOTAL (BEAKER) (test 1.8 mg/dL 0.2-1.2 Specimen slightly hemolyzed xfrt=734) BILIRUBIN DIRECT (BEAKER) (test 0.7 mg/dL 0.1-0.5 Specimen slightly hemolyzed bvoz=689) ALKALINE PHOSPHATASE (BEAKER) 100 U/L 40-150 (test blnz=235) AST (SGOT) (BEAKER) (test 26 U/L 5-34 Specimen slightly hemolyzed fcqj=734) ALT (SGPT) (BEAKER) (test 13 U/L 6-55 Specimen slightly hemolyzed zjxr=436) PROTHROMBIN [id number] 07:11:00 Test Item Value Reference Range Comments PROTIME (BEAKER) (test ksjd=143) 16.4 seconds 11.7-14.7 INR (BEAKER) (test vind=083) 1.3 <=5.9 RECOMMENDED COUMADIN/WARFARIN INR THERAPY RANGESSTANDARD DOSE: 2.0 - 3.0 Includes: PROPHYLAXIS forvenous thrombosis, systemic embolization; TREATMENT for venous thrombosis and/or pulmonary embolus.HIGH RISK: Target INR is 2.5-3.5 for patients with mechanical heart valves.POCT-GLUCOSE [id number] 20:11:00 Test Item Value Reference Range Comments POC-GLUCOSE METER (BEAKER) 156 mg/dL 70-110 TESTED AT [facility] [address] [facility] (test afco=2611) [facility] [address] [id number] 17:51:00 Test Item Value Reference Range Comments MAGNESIUM (BEAKER) (test qlyu=863) 1.9 mg/dL 1.6-2.6 BASIC METABOLIC [id number] 17:51:00 Test Item Value Reference Range Comments SODIUM (BEAKER) (test 139 meq/L 136-145 txtq=601) POTASSIUM (BEAKER) (test 3.7 meq/L 3.5-5.1 vrvg=566) CHLORIDE (BEAKER) (test 98 meq/L 98-107 vfvs=961) CO2 (BEAKER) (test 30 meq/L 22-29 hnpm=034) BLOOD UREA NITROGEN 23 mg/dL 7-21 (BEAKER) (test tlzv=323) CREATININE (BEAKER) (test 1.31 mg/dL 0.57-1.25 mdne=432) GLUCOSE RANDOM (BEAKER) 144 mg/dL 70-105 (test wleq=252) CALCIUM (BEAKER) (test 10.1 mg/dL 8.4-10.2 nbtw=061) EGFR (BEAKER) (test 57 mL/min/1.73 sq m ESTIMATED GFR IS NOT kbxa=4361) ACCURATE CREATININE CLEARANCE IN PREDICTING GLOMERULAR FILTRATION RATE. ESTIMATED GFR IS NOT APPLICABLE FOR DIALYSIS PATIENTS. POCT-GLUCOSE [id number] 16:12:00 Test Item Value Reference Range Comments POC-GLUCOSE METER (BEAKER) 89 mg/dL 70-110 TESTED AT [facility] [address] [facility] (test msdx=3476) [facility] [address] U/S, DUPLEX, [id number] 15:18:00Please perform with doppler to evaluate for [...] Hernandezeport Verified Date/Time: 07/03/2018 15:18:31 Reading Location: [place] [id number] Ultrasound Reading Room POCT-GLUCOSE [id number] 12:46:00 Test Item Value Reference Range Comments POC-GLUCOSE METER (BEAKER) 102 mg/dL 70-110 TESTED AT [facility] [address] [facility] (test abbb=7734) [facility] [address] [id number] 07:10:00 Test Item Value Reference Range Comments PHOSPHORUS (BEAKER) (test acvv=239) 3.7 mg/dL 2.3-4.7 [id number] 07:10:00 Test Item Value Reference Range Comments MAGNESIUM (BEAKER) (test tkga=405) 1.8 mg/dL 1.6-2.6 BASIC METABOLIC [id number] 07:10:00 Test Item Value Reference Range Comments SODIUM (BEAKER) (test 136 meq/L 136-145 rhad=564) POTASSIUM (BEAKER) (test 4.2 meq/L 3.5-5.1 pdms=659) CHLORIDE (BEAKER) (test 103 meq/L 98-107 gxee=780) CO2 (BEAKER) (test 24 meq/L 22-29 eblf=096) BLOOD UREA NITROGEN 27 mg/dL 7-21 (BEAKER) (test vzdb=069) CREATININE (BEAKER) (test 1.28 mg/dL 0.57-1.25 pjvx=305) GLUCOSE RANDOM (BEAKER) 121 mg/dL 70-105 (test kyhe=525) CALCIUM (BEAKER) (test 9.5 mg/dL 8.4-10.2 uwcn=077) EGFR (BEAKER) (test 58 mL/min/1.73 sq m ESTIMATED GFR IS NOT jrdf=3941) ACCURATE CREATININE CLEARANCE IN PREDICTING GLOMERULAR FILTRATION RATE. ESTIMATED GFR IS NOT APPLICABLE FOR DIALYSIS PATIENTS. HEPATIC FUNCTION [id number] 07:10:00 Test Item Value Reference Range Comments TOTAL PROTEIN (BEAKER) (test zvbe=603) 6.8 gm/dL 6.0-8.3 ALBUMIN (BEAKER) (test brfi=3155) 3.6 g/dL 3.5-5.0 BILIRUBIN TOTAL (BEAKER) (test youv=896) 1.7 mg/dL 0.2-1.2 BILIRUBIN DIRECT (BEAKER) (test bhuw=721) 0.8 mg/dL 0.1-0.5 ALKALINE PHOSPHATASE (BEAKER) (test tgby=572) 98 U/L 40-150 AST (SGOT) (BEAKER) (test slry=395) 24 U/L 5-34 ALT (SGPT) (BEAKER) (test hajg=444) 14 U/L 6-55 POCT-GLUCOSE [id number] 07:02:00 Test Item Value Reference Range Comments POC-GLUCOSE METER (BEAKER) 112 mg/dL 70-110 TESTED AT [address] (test rpfc=9083) [place] [id number] POCT-GLUCOSE [id number] 21:51:00 Test Item Value Reference Range Comments POC-GLUCOSE METER (BEAKER) 147 mg/dL 70-110 TESTED AT [address] (test ajhu=7290) [place] [address] [id number] 20:05:00 Test Item Value Reference Range Comments MAGNESIUM (BEAKER) (test 2.1 mg/dL 1.6-2.6 Specimen slightly hemolyzed vlqh=932) BASIC METABOLIC [id number] 20:05:00 Test Item Value Reference Range Comments SODIUM (BEAKER) (test 136 meq/L 136-145 qzqh=927) POTASSIUM (BEAKER) (test 4.1 meq/L 3.5-5.1 Specimen slightly wknj=244) hemolyzed CHLORIDE (BEAKER) (test 100 meq/L 98-107 yxgs=155) CO2 (BEAKER) (test 25 meq/L 22-29 witr=523) BLOOD UREA NITROGEN 27 mg/dL 7-21 (BEAKER) (test tzzd=585) CREATININE (BEAKER) (test 1.62 mg/dL 0.57-1.25 Specimen slightly dsgk=424) hemolyzed GLUCOSE RANDOM (BEAKER) 110 mg/dL 70-105 (test upnc=754) CALCIUM (BEAKER) (test 9.6 mg/dL 8.4-10.2 cjbm=026) EGFR (BEAKER) (test 44 mL/min/1.73 sq m ESTIMATED GFR IS NOT cdkn=9573) ACCURATE CREATININE CLEARANCE IN PREDICTING GLOMERULAR FILTRATION RATE. ESTIMATED GFR IS NOT APPLICABLE FOR DIALYSIS PATIENTS. POCT-GLUCOSE [id number] 17:05:00 Test Item Value Reference Range Comments POC-GLUCOSE METER (BEAKER) 111 mg/dL 70-110 TESTED AT [address] (test jsna=9168) [place] [address] POCT-GLUCOSE [id number] 11:34:00 Test Item Value Reference Range Comments POC-GLUCOSE METER (BEAKER) 142 mg/dL 70-110 TESTED AT [address] (test vcgg=8182) [place] [id number] POCT-GLUCOSE [id number] 07:43:00 Test Item Value Reference Range Comments POC-GLUCOSE METER (BEAKER) 110 mg/dL 70-110 TESTED AT [address] (test ieem=6990) [place] [id number] 07:13:00 Test Item Value Reference Range Comments PHOSPHORUS (BEAKER) (test qwgn=978) 4.3 mg/dL 2.3-4.7 [id number] 07:13:00 Test Item Value Reference Range Comments MAGNESIUM (BEAKER) (test npvz=836) 2.0 mg/dL 1.6-2.6 BASIC METABOLIC [id number] 07:13:00 Test Item Value Reference Range Comments SODIUM (BEAKER) (test 133 meq/L 136-145 bfjj=562) POTASSIUM (BEAKER) (test 4.4 meq/L 3.5-5.1 yjee=356) CHLORIDE (BEAKER) (test 102 meq/L 98-107 vorf=680) CO2 (BEAKER) (test 20 meq/L 22-29 ilaj=648) BLOOD UREA NITROGEN 28 mg/dL 7-21 (BEAKER) (test hbku=736) CREATININE (BEAKER) (test 1.72 mg/dL 0.57-1.25 iyxp=223) GLUCOSE RANDOM (BEAKER) 116 mg/dL 70-105 (test hfvx=075) CALCIUM (BEAKER) (test 9.5 mg/dL 8.4-10.2 mivy=120) EGFR (BEAKER) (test 41 mL/min/1.73 sq m ESTIMATED GFR IS NOT gujo=2467) ACCURATE CREATININE CLEARANCE IN PREDICTING GLOMERULAR FILTRATION RATE. ESTIMATED GFR IS NOT APPLICABLE FOR DIALYSIS PATIENTS. HEPATIC FUNCTION [id number] 07:13:00 Test Item Value Reference Range Comments TOTAL PROTEIN (BEAKER) (test djvd=117) 6.9 gm/dL 6.0-8.3 ALBUMIN (BEAKER) (test cmye=8207) 3.7 g/dL 3.5-5.0 BILIRUBIN TOTAL (BEAKER) (test ogus=863) 1.7 mg/dL 0.2-1.2 BILIRUBIN DIRECT (BEAKER) (test qlxy=918) 0.8 mg/dL 0.1-0.5 ALKALINE PHOSPHATASE (BEAKER) (test mczg=910) 93 U/L 40-150 AST (SGOT) (BEAKER) (test kbyu=320) 22 U/L 5-34 ALT (SGPT) (BEAKER) (test hith=264) 11 U/L 6-55 [id number] 07:13:00 Test Item Value Reference Range Comments LIPASE (BEAKER) (test tozn=474) 21 U/L 8-78 B-TYPE NATRIURETIC FACTOR (BNP)2018-07-02 07:13:00 Test Item Value Reference Range Comments B-TYPE NATRIURETIC PEPTIDE (BEAKER) (test 689 pg/mL 0-100 kkqr=554) POCT-GLUCOSE [id number] 22:15:00 Test Item Value Reference Range Comments POC-GLUCOSE METER (BEAKER) 124 mg/dL 70-110 TESTED AT [facility] [address] [facility] (test wtnl=9445) [facility] [address] RAD, CHEST, 1 VIEW, NON [id number] 18:03:00Reason for exam:->chest painShould this be performed at the bedside?->YesFINAL REPORT AP chest HISTORY: Chest pain COMPARISON: None IMPRESSION:Status post median sternotomy. No acute skeletal findings. Cardiomegaly. Diffuse interstitial edema. Moderate right effusion. No pneumothorax. Signed: Emile Lockharteport Verified Date/Time: 07/01/2018 18:03:03 Reading Location: [facility] B1 C013Y CT Body Reading Room POCT-GLUCOSE [id number] 17:04:00 Test Item Value Reference Range Comments POC-GLUCOSE METER (BEAKER) 146 mg/dL 70-110 TESTED AT [address] (test xzym=3794) [place] [address] POCT-GLUCOSE [id number] 11:52:00 Test Item Value Reference Range Comments POC-GLUCOSE METER (BEAKER) 163 mg/dL 70-110 TESTED AT [address] (test ieai=5280) [place] [address] HEMOGLOBIN [id number] 08:13:00 Test Item Value Reference Range Comments HEMOGLOBIN A1C (BEAKER) (test jtdq=915) 7.1 % 4.3-6.1 POCT-GLUCOSE [id number] 08:00:00 Test Item Value Reference Range Comments POC-GLUCOSE METER (BEAKER) 113 mg/dL 70-110 TESTED AT [address] (test sqnb=4657) [place] [address] TROPONIN [id number] 02:30:00 Test Item Value Reference Range Comments TROPONIN I (BEAKER) (test lyqp=645) 0.03 ng/mL 0.00-0.03 Troponin I (TnI) levels [...] acute neurological disease, and persistent tachyarrhythmia.BASIC METABOLIC [id number] 02:24:00 Test Item Value Reference Range Comments SODIUM (BEAKER) (test 133 meq/L 136-145 pemn=727) POTASSIUM (BEAKER) (test 4.3 meq/L 3.5-5.1 Specimen slightly vyuc=293) hemolyzed CHLORIDE (BEAKER) (test 101 meq/L 98-107 zajf=076) CO2 (BEAKER) (test 20 meq/L 22-29 rtlh=119) BLOOD UREA NITROGEN 19 mg/dL 7-21 (BEAKER) (test awut=747) CREATININE (BEAKER) (test 1.15 mg/dL 0.57-1.25 Specimen slightly vtoh=596) hemolyzed GLUCOSE RANDOM (BEAKER) 119 mg/dL 70-105 (test zrho=436) CALCIUM (BEAKER) (test 9.1 mg/dL 8.4-10.2 zbke=974) EGFR (BEAKER) (test 66 mL/min/1.73 sq m ESTIMATED GFR IS NOT sdat=9880) ACCURATE CREATININE CLEARANCE IN PREDICTING GLOMERULAR FILTRATION RATE. ESTIMATED GFR IS NOT APPLICABLE FOR DIALYSIS PATIENTS. HEPATIC FUNCTION [id number] 02:24:00 Test Item Value Reference Range Comments TOTAL PROTEIN (BEAKER) (test 7.0 gm/dL 6.0-8.3 Specimen slightly hemolyzed tfbq=730) ALBUMIN (BEAKER) (test 3.7 g/dL 3.5-5.0 Specimen slightly hemolyzed bqcn=[id number]) BILIRUBIN TOTAL (BEAKER) (test 1.8 mg/dL 0.2-1.2 Specimen slightly hemolyzed fnqw=091) BILIRUBIN DIRECT (BEAKER) (test 0.8 mg/dL 0.1-0.5 Specimen slightly hemolyzed lrwz=776) ALKALINE PHOSPHATASE (BEAKER) 87 U/L 40-150 (test dlgm=613) AST (SGOT) (BEAKER) (test 18 U/L 5-34 Specimen slightly hemolyzed dsbk=428) ALT (SGPT) (BEAKER) (test 8 U/L 6-55 Specimen slightly hemolyzed lcht=078) [id number] 02:23:00 Test Item Value Reference Range Comments PHOSPHORUS (BEAKER) (test ejsh=217) 4.4 mg/dL 2.3-4.7 [id number] 02:23:00 Test Item Value Reference Range Comments MAGNESIUM (BEAKER) (test uweu=962) 1.8 mg/dL 1.6-2.6 BASIC METABOLIC [id number] 02:23:00 Test Item Value Reference Range Comments SODIUM (BEAKER) (test 132 meq/L 136-145 xgdu=515) POTASSIUM (BEAKER) (test 4.2 meq/L 3.5-5.1 qdvg=117) CHLORIDE (BEAKER) (test 100 meq/L 98-107 qrnu=872) CO2 (BEAKER) (test 21 meq/L 22-29 vece=507) BLOOD UREA NITROGEN 19 mg/dL 7-21 (BEAKER) (test aiva=138) CREATININE (BEAKER) (test 1.15 mg/dL 0.57-1.25 zadl=881) GLUCOSE RANDOM (BEAKER) 118 mg/dL 70-105 (test kxex=665) CALCIUM (BEAKER) (test 9.1 mg/dL 8.4-10.2 bujs=056) EGFR (BEAKER) (test 66 mL/min/1.73 sq m ESTIMATED GFR IS NOT obus=5460) ACCURATE CREATININE CLEARANCE IN PREDICTING GLOMERULAR FILTRATION RATE. ESTIMATED GFR IS NOT APPLICABLE FOR DIALYSIS PATIENTS. LIPID [id number] 02:23:00 Test Item Value Reference Range Comments TRIGLYCERIDES (BEAKER) (test xseo=740) 62 mg/dL CHOLESTEROL (BEAKER) (test pnfx=204) 145 mg/dL HDL CHOLESTEROL (BEAKER) (test bbuj=571) 30 mg/dL LDL CHOLESTEROL CALCULATED (BEAKER) (test 103 mg/dL iufl=182) Triglyceride Reference Range: Low Risk <150 Borderline 150- 199 High Risk 200-499 Very High Risk >=500Cholesterol Reference Range: Low Risk <200 Borderline 200-239 High Risk > 240HDL Cholesterol Reference Range: Low Risk >=60 High Risk <40LDL Cholesterol Reference Range: Optimal <100 Near Optimal 100-129 Borderline 130-159 High 160-189 Very High >=190POCT-GLUCOSE [id number] 23:01:00 Test Item Value Reference Range Comments POC-GLUCOSE METER (BEAKER) 143 mg/dL 70-110 TESTED AT [facility] [address] [facility] (test myaz=2467) [facility] [address] TSH/FREE T4 IF [id number] 18:47:00 Test Item Value Reference Range Comments THYROID STIMULATING HORMONE (BEAKER) (test 3.50 uIU/mL 0.35-4.94 nkrg=159) TROPONIN [id number] 18:35:00 Test Item Value Reference Range Comments TROPONIN I (VANESSAAKER) (test ftum=091) 0.01 ng/mL 0.00-0.03 Troponin I (TnI) levels [...] acidosis, acute neurological disease, and persistent tachyarrhythmia.POCT-GLUCOSE [id number] 18:18:00 Test Item Value Reference Range Comments POC-GLUCOSE METER (BEAKER) 149 mg/dL 70-110 TESTED AT [address] (test zwxp=3327) [place] [id number] HEMOGLOBIN AND [id number] 18:08:00 Test Item Value Reference Range Comments HEMOGLOBIN (BEAKER) (test sqdj=903) 15.8 GM/DL 13.7-17.5 HEMATOCRIT (BEAKER) (test tzkq=501) 49.9 % 40.1-51.0 POCT-GLUCOSE [id number] 15:23:00 Test Item Value Reference Range Comments POC-GLUCOSE METER (BEAKER) 158 mg/dL 70-110 TESTED AT [address] (test bdvf=4860) [facility] [address]
[2018-09-20 17:11] LABS: Absolute Lymphocytes (CBC) 1.6 K/uL (0.7-4.9); Absolute Monocytes 0.7 K/uL (0.1-1.3); Absolute Neutrophil 5.5 K/uL (1.8-8.0); Eosinophils % 2.9 % (0-4.4); Hematocrit 35.8 % (39.6-49.0); Lymphocytes % 19.6 % (15.3-44.8); MCH 27.9 pg (27.0-35.0); MCV 82.5 fL (80-100); MPV 8.4 fL (7.6-11.3); Monocytes % 8.3 % (3.3-12.3); RBC Red Blood Cell Count 4.35 M/uL (4.33-5.43)
--- NOTE | 2018-09-20 17:12 | RAD REPORT ---
EXAM DESCRIPTION: RAD - Chest Single View - 09/20/2018 5:02 pm CLINICAL HISTORY: Chest pain COMPARISON: August 13 TECHNIQUE: AP portable chest image was obtained 1654 hours . FINDINGS: No focal lung parenchymal process. Lung markings are similar to comparison. Sternotomy wir es in place. Heart and vasculature are normal. No measurable pleural effusion and no pneumothorax. No acute bony abnormality seen. No acute aortic findings suspected. IMPRESSION: No acute cardiopulmonary process. No suspicious change from comparison.
[2018-09-20 17:14] LABS: Protime INR 1.09
[2018-09-20] MEDS ORDERED: PANTOPRAZOLE 40 MG INJ ONE (17:26)
[2018-09-20] MEDS ORDERED: ASPIRIN 81 MG CHEWABLE TABLET ONE (17:26)
[2018-09-20] MEDS ORDERED: ONDANSETRON 4 MG/2 ML VIAL ONE (17:26)
[2018-09-20 17:32] LABS: Albumin 3.8 g/dL (3.4-5.0); Bilirubin Direct 0.3 mg/dL (0-0.2); Bilirubin Total 0.8 mg/dL (0.2-1.0); Magnesium 2.7 mg/dL (1.8-2.4); Potassium 4.7 mmol/L (3.5-5.1); Protein, Total 7.7 g/dL (6.4-8.2); Troponin (Emerg Dept Use Only) 0.04 ng/mL (0.0-0.045)
[2018-09-20] MEDS ORDERED: NA CHLORIDE 0.9% 2,000 ML ONE (18:03)
--- NOTE | 2018-09-20 19:12 | EDPHYS ---
Physician Documentation [facility] Name: Chicho Weldon Age: 58 yrs Sex: Male : 1960 Arrival Date: 09/20/2018 Time: 16:33 Bed 2 Private MD: ED Physician Yobani Wasserman HPI: 09/20 16:40 This 58 yrs old Male presents to ER via EMS with complaints of Abdominal Pain.cp 16:40 The patient presents with abdominal pain in the right upper quadrant. Onset: The cp symptoms/episode began/occurred last month, started after having gallbladder removed. The symptoms do not radiate. Associated signs and symptoms: Pertinent positives: nausea, shortness of breath, vomiting, Pertinent negatives: anorexia, blood in stools, constipation, fever, testicular pain. The symptoms are described as stabbing, squeezing. 16:40 Modifying factors: the symptoms are aggravated by food. cp 16:40 Severity of pain: in the emergency department the pain has improved mildly. cp Historical: - Allergies: 16:36 Iodine; bp 16:36 SEAFOOD; bp - PMHx: 16:36 CABG; Colitis; diabetes- resolved; gastric cardiac distress; Hypertension; Kidney bp stones; Myocardial infarction; pleurasy; prostate hypertrophy; syncope; vasovagal; - Immunization history:: Adult Immunizations up to date. - Social history:: Smoking status: Patient/guardian denies using tobacco. - Ebola Screening: : Patient negative for fever greater than or equal to 101.5 degrees Fahrenheit, and additional compatible Ebola Virus Disease symptoms Patient denies exposure to infectious person Patient denies travel to an Ebola-affected area in the 21 days before illness onset No symptoms or risks identified at this time. ROS: 16:45 Constitutional: Negative for body aches, chills, fever, poor PO intake. cp 16:45 Eyes: Negative for injury, pain, redness, and discharge. cp 16:45 ENT: Negative for drainage from ear(s), ear pain, sore throat, difficulty swallowing, difficulty handling secretions. 16:45 Cardiovascular: Positive for chest pain, Negative for edema, palpitations. 16:45 Respiratory: Positive for shortness of breath, on exertion. Negative for cough, wheezing. 16:45 Abdomen/GI: Positive for abdominal pain, nausea, vomiting, of the right upper quadrant, Negative for diarrhea, constipation, dysphagia, hematemesis, black/tarry stool, rectal bleeding. 16:45 Back: Negative for radiated pain. 16:45 : Negative for urinary symptoms, flank pain. 16:45 Skin: Negative for cellulitis, rash. 16:45 Neuro: Negative for altered mental status, dizziness, headache, numbness, syncope, near syncope, weakness. 16:45 All other systems are negative. Exam: 16:50 Constitutional: The patient appears in no acute distress, alert, awake, cp non-diaphoretic, non-toxic, well developed, well nourished. 16:50 Head/Face: Normocephalic, atraumatic. Eyes: Pupils equal round and reactive to light, cp extra-ocular motions intact. Lids and lashes normal. Conjunctiva and sclera are non-icteric and not injected. Cornea within normal limits. Periorbital areas with no swelling, redness, or edema. ENT: Nares patent. No nasal discharge, no septal abnormalities noted. Tympanic membranes are normal and external auditory canals are clear. Oropharynx with no redness, swelling, or masses, exudates, or evidence of obstruction, uvula midline. Mucous membranes moist. Neck: Trachea midline, no thyromegaly or masses palpated, and no cervical lymphadenopathy. Supple, full range of motion without nuchal rigidity, or vertebral point tenderness. No Meningismus. Chest/axilla: Normal chest wall appearance and motion. Nontender with no deformity. No lesions are appreciated. 16:50 Cardiovascular: Rate: normal, Rhythm: regular, Edema: is not appreciated, JVD: is not appreciated. 16:50 Respiratory: the patient does not display signs of respiratory distress, Respirations: normal, no use of accessory muscles, no retractions, no splinting, no tachypnea, labored breathing, is not present, Breath sounds: are clear throughout, no decreased breath sounds, no stridor, no wheezing. 16:50 Abdomen/GI: Inspection: abdomen appears normal, Bowel sounds: active, all quadrants, Palpation: soft, in all quadrants, moderate abdominal tenderness, in the right upper quadrant, rebound tenderness, is not appreciated, involuntary guarding, is not appreciated. 16:50 Back: pain, is absent, ROM is normal. 16:50 Skin: cellulitis, is not appreciated, no rash present. 16:50 Neuro: Orientation: to person, place \T\ time. Mentation: is normal, Cerebellar function: is grossly normal, Motor: moves all fours, strength is normal, Sensation: is normal. 17:00 ECG was reviewed by the Attending Physician. Vital Signs: 16:36 BP 102 / 84; Pulse 75; Resp 14; Temp 97.7; Pulse Ox 99% ; Weight 77.11 kg; bp 17:31 BP 85 / 64; Pulse 64; Resp 15; Pulse Ox 98% ; bp 18:11 BP 107 / 68; Pulse 66; Resp 30; Pulse Ox 100% ; bp 19:58 BP 113 / 70; Pulse 62; Resp 17 S; Pulse Ox 100% on R/A; jd3 21:01 BP 106 / 70; Pulse 62; Resp 16 S; Pulse Ox 99% on R/A; jd3 MDM: 16:36 Patient medically screened. 09/20 16:35 Order name: Troponin (emerg Dept Use Only); Complete Time: 17:36 09/20 16:35 Order name: Basic Metabolic Panel; Complete Time: 17:36 09/20 17:37 Interpretation: Normal except: NA 135; CL 96; GLUC 124; BUN 61; CRE 3.80; GFR 17. 09/20 16:35 Order name: CBC with Diff; Complete Time: 17:36 09/20 17:37 Interpretation: Normal except: HGB 12.1; HCT 35.8; MCV 82.5; RDW 16.1. 09/20 16:35 Order name: LFT's; Complete Time: 17:36 09/20 17:52 Interpretation: Normal except: ALK 128; BILID 0.3; GLOB 3.9; A/G 1.0. 09/20 16:35 Order name: Magnesium; Complete Time: 17:36 09/20 17:53 Interpretation: Abnormal: MG 2.7. 09/20 16:35 Order name: NT PRO-BNP; Complete Time: 17:36 09/20 16:35 Order name: PT-INR; Complete Time: 17:36 09/20 16:35 Order name: XRAY Chest (1 view); Complete Time: 17:36 09/20 16:35 Order name: Lipase; Complete Time: 17:36 09/20 17:53 Interpretation: Abnormal: LIP 493. 09/20 17:08 Order name: CT Abd/Pelvis - Without Cont: give oral contrast; Complete Time: 19:35 cp 09/20 17:42 Order name: US Rp Exam Complete; Complete Time: 21:27 cp 09/20 16:35 Order name: EKG; Complete Time: 16:37 cp 09/20 16:35 Order name: Cardiac monitoring; Complete Time: 17:02 09/20 16:35 Order name: EKG - Nurse/Tech; Complete Time: 17:02 cp 09/20 16:35 Order name: IV Saline Lock; Complete Time: 17:02 cp 09/20 16:35 Order name: Labs collected and sent; Complete Time: 17:02 09/20 16:35 Order name: O2 Per Protocol; Complete Time: 17:02 09/20 16:35 Order name: O2 Sat Monitoring; Complete Time: 17:03 09/20 17:41 Order name: John: acute renal failure; Complete Time: 18:08 cp EC:00 Rate is 66 beats/min. Rhythm is regular. TN interval is normal. QRS interval is normal. cp QT interval is normal. T waves are Inverted in leads aVL, V2. Interpreted by me. Reviewed by me. Administered Medications: 17:20 Drug: Zofran 4 mg Route: IVP; Site: right forearm; aa5 18:10 Follow up: Response: No adverse reaction bp 17:20 Drug: Aspirin Chewable Tablet 324 mg Route: PO; aa5 18:09 Follow up: Response: No adverse reaction bp 17:20 Drug: ProTONIX 40 mg Route: IVP; Site: right forearm; aa5 18:09 Follow up: Response: No adverse reaction bp 17:38 CANCELLED (Physician Discretion): NS 0.9% 1000 ml IV at 125 ml/hr continuous cp 17:44 Drug: NS 0.9% 1000 ml Route: IV; Rate: 1 bolus; Site: right forearm; bp 20:51 Follow up: Response: No adverse reaction; IV Status: Completed infusion jd3 17:45 Drug: NS 0.9% 1000 ml Route: IV; Rate: 100 ml/hr; Site: right forearm; bp 20:51 Follow up: Response: No adverse reaction; IV Status: Infusion continued upon transfer jd3 19:41 Drug: NS 0.9% 1000 ml Route: IV; Rate: 1 bolus; Site: right forearm; jd3 20:50 Follow up: Response: No adverse reaction; IV Status: Completed infusion jd3 20:58 Drug: morphine 4 mg {Note: ordered by Dr. Emerson.} Route: IVP; Site: right forearm; jd3 20:59 Follow up: Response: medication administered before transfer. jd3 Disposition: 18:17 Co-signature as Attending Physician, Yobani Wasserman MD I agree with the assessment and [facility] plan of care. Disposition: 09/20/18 19:11 Transfer ordered to [facility]. Diagnosis are Abdominal tenderness, Acute kidney failure, Volume depletion, Acute pancreatitis - sp lap cholecystectomy. - Reason for transfer: Higher level of care. - Accepting physician is to [facility]. - Condition is Fair. - Problem is new. - Symptoms are unchanged. Signatures: Dispatcher [employer] EDNE Yobani Wasserman MD MD cha Calderon, Audri, RN RN aa5 Yobani Serrano PA PA Richard Dorantes RN RN jd3 Maximino Benjamin RN RN bp Corrections: (The following items were deleted from the chart) 17:38 17:37 NS 0.9% 1000 ml IV at 125 ml/hr continuous ordered. cp cp 21:02 19:11 09/20/2018 19:11 Transfer ordered to [facility]. Diagnosis is jd3 Abdominal tenderness; Acute kidney failure; Volume depletion; Acute pancreatitis - sp lap cholecystectomy. Reason for transfer: Higher level of care. Accepting physician is to [facility]. Condition is Fair. Problem is new. Symptoms are unchanged. paulino
--- NOTE | 2018-09-20 19:12 | ER ---
Nurse's Notes [facility] Name: Chicho Weldon Age: 58 yrs Sex: Male : 1960 Arrival Date: 09/20/2018 Time: 16:33 Bed 2 Private MD: Diagnosis: Abdominal tenderness;Acute kidney failure;Volume depletion;Acute pancreatitis-sp lap cholecystectomy Presentation: 09/20 16:33 Presenting complaint: EMS states: ABDOMINAL PAIN AFTER LUNCH SINCE PEDRO IN JULY. bp Transition of care: patient was not received from another setting of care. Onset of symptoms is unknown. Risk Assessment: Do you want to hurt yourself or someone else? Patient reports no desire to harm self or others. Initial Sepsis Screen: Does the patient meet any 2 criteria? No. Patient's initial sepsis screen is negative. Does the patient have a suspected source of infection? No. Patient's initial sepsis screen is negative. Care prior to arrival: Medication(s) given: zofran 4 mg, TORADOL 30MG IV initiated. 20 GA, in the right wrist, Glucose check: 161. 16:33 Method Of Arrival: EMS: [facility] bp 16:33 Acuity: AMANDA 3 bp Triage Assessment: 16:36 General: Appears in no apparent distress. uncomfortable, obese, Behavior is bp cooperative, appropriate for age, anxious. Pain: Complains of pain in abdomen. EENT: No deficits noted. Neuro: Level of Consciousness is awake, alert, obeys commands, Oriented to person, place, time, situation, Appropriate for age. Neuro: Cardiovascular: Rhythm is sinus rhythm. Respiratory: Airway is patent Respiratory effort is even, unlabored, Respiratory pattern is regular. GI: Abdomen is obese, Bowel sounds present X 4 quads. Abd is soft X 4 quads. : No signs and/or symptoms were reported regarding the genitourinary system. Derm: No deficits noted. Musculoskeletal: Circulation, motion, and sensation intact. Range of motion: intact in all extremities. Historical: - Allergies: 16:36 Iodine; bp 16:36 SEAFOOD; bp - PMHx: 16:36 CABG; Colitis; diabetes- resolved; gastric cardiac distress; Hypertension; Kidney bp stones; Myocardial infarction; pleurasy; prostate hypertrophy; syncope; vasovagal; - Immunization history:: Adult Immunizations up to date. - Social history:: Smoking status: Patient/guardian denies using tobacco. - Ebola Screening: : Patient negative for fever greater than or equal to 101.5 degrees Fahrenheit, and additional compatible Ebola Virus Disease symptoms Patient denies exposure to infectious person Patient denies travel to an Ebola-affected area in the 21 days before illness onset No symptoms or risks identified at this time. Screenin:49 Abuse screen: Denies threats or abuse. Denies injuries from another. Nutritional bp screening: No deficits noted. Tuberculosis screening: No symptoms or risk factors identified. Fall Risk None identified. Assessment: 16:48 General: SEE TRIAGE NOTE. bp 17:31 Reassessment: PT DRINKING PO CONTRAST. bp 17:37 Reassessment: PO CONTRAST COMPLETED, CT NOTIFIED. bp 18:11 Reassessment: U/S PENDING. AT B/S. bp 19:58 Reassessment: Patient appears in no apparent distress at this time. Patient and/or jd3 family updated on plan of care and expected duration. Pain level reassessed. Patient is alert, oriented x 3, equal unlabored respirations, skin warm/dry/pink. 20:16 Reassessment: Patient appears in no apparent distress at this time. Patient and/or jd3 family updated on plan of care and expected duration. Pain level reassessed. Patient is alert, oriented x 3, equal unlabored respirations, skin warm/dry/pink. report given to Candida MOULTON at [facility], transfer form signed. 21:00 Reassessment: Patient appears in no apparent distress at this time. No changes from [facility] previously documented assessment. Patient and/or family updated on plan of care and expected duration. Pain level reassessed. Patient is alert, oriented x 3, equal unlabored respirations, skin warm/dry/pink. report given to EMS. Vital Signs: 16:36 BP 102 / 84; Pulse 75; Resp 14; Temp 97.7; Pulse Ox 99% ; Weight 77.11 kg; bp 17:31 BP 85 / 64; Pulse 64; Resp 15; Pulse Ox 98% ; bp 18:11 BP 107 / 68; Pulse 66; Resp 30; Pulse Ox 100% ; bp 19:58 BP 113 / 70; Pulse 62; Resp 17 S; Pulse Ox 100% on R/A; jd3 21:01 BP 106 / 70; Pulse 62; Resp 16 S; Pulse Ox 99% on R/A; jd3 ED Course: 16:33 Patient arrived in ED. bp 16:34 Yobani Serrano PA is PHCP. cp 16:34 Yobani Wasserman MD is Attending Physician. cp 16:35 Triage completed. bp 16:36 Arm band placed on. bp 16:49 Patient has correct armband on for positive identification. Bed in low position. Call bp light in reach. Side rails up X2. 16:49 No provider procedures requiring assistance completed. Maintain EMS IV. Dressing bp intact. Good blood return noted. Site clean \T\ dry. Gauge \T\ site: 20 GAUGE R WRIST. 16:57 EKG done, by health type technician. reviewed by Yobani CONWAY. sm3 16:58 Initial lab(s) drawn, by me, sent to lab. dh3 17:03 XRAY Chest (1 view) In Process Unspecified. EDMS 17:22 Maximino Benjamin, RN is Primary Nurse. bp 18:10 John cath inserted, using sterile technique, 18 Fr., by me, balloon inflated, to bp gravity drainage. 19:[address] via stretcher. ka 19:12 CT completed. Patient tolerated procedure well. Patient taken to ultrasound. ka 19:13 CT Abd/Pelvis - Without Cont: give oral contrast In Process Unspecified. EDMS 19:37 US Rp Exam Complete In Process Unspecified. EDMS 19:38 Ultrasound completed. Patient tolerated well. Note: PT TAKEN BACK TO ER2. Patient moved lc3 back from ultrasound. 20:17 Patient transferred, IV remains in place. jd3 Administered Medications: 17:20 Drug: Zofran 4 mg Route: IVP; Site: right forearm; aa5 18:10 Follow up: Response: No adverse reaction bp 17:20 Drug: Aspirin Chewable Tablet 324 mg Route: PO; aa5 18:09 Follow up: Response: No adverse reaction bp 17:20 Drug: ProTONIX 40 mg Route: IVP; Site: right forearm; aa5 18:09 Follow up: Response: No adverse reaction bp 17:38 CANCELLED (Physician Discretion): NS 0.9% 1000 ml IV at 125 ml/hr continuous cp 17:44 Drug: NS 0.9% 1000 ml Route: IV; Rate: 1 bolus; Site: right forearm; bp 20:51 Follow up: Response: No adverse reaction; IV Status: Completed infusion jd3 17:45 Drug: NS 0.9% 1000 ml Route: IV; Rate: 100 ml/hr; Site: right forearm; bp 20:51 Follow up: Response: No adverse reaction; IV Status: Infusion continued upon transfer jd3 19:41 Drug: NS 0.9% 1000 ml Route: IV; Rate: 1 bolus; Site: right forearm; jd3 20:50 Follow up: Response: No adverse reaction; IV Status: Completed infusion jd3 20:58 Drug: morphine 4 mg {Note: ordered by Dr. Emerson.} Route: IVP; Site: right forearm; jd3 20:59 Follow up: Response: medication administered before transfer. jd3 Outcome: 19:11 ER care complete, transfer ordered by MD. bob 21:01 Transferred by ground EMS to [facility], [facility], Transfer form completed. jd3 X-rays sent w/ patient. 21:01 Condition: stable 21:01 Instructed on the need for transfer, Demonstrated understanding of instructions. 21:02 Patient left the ED. jd3 Signatures: Dispatcher [employer] EDYobani Lay MD MD cha Calderon, Audri, RN RN aa5 Yobani Serrano, PA PA Keven Mary Katelyn ka Herrera, Deanna [facility] Richard Dumont RN RN jd3 Maximino Benjamin RN RN bp Galina Evans 3
--- NOTE | 2018-09-20 19:28 | RAD REPORT ---
EXAM DESCRIPTION: CT - Abdomen Pelvis Wo Contrast - 09/20/2018 7:13 pm CLINICAL HISTORY: Recurrent abdominal pain, cholecystectomy July 2018 COMPARISON: CT study August 12, 2018 TECHNIQUE: Axial [address] imaging of the abdomen and pelvis was performed without IV contrast. No IV contrast was given because of allergy, abnormal renal function, patient refusal or physician re quest. Oral contrast was given. All CT scans are performed using dose optimization technique as appropriate and may include automated exposure control or mA/KV adjustment according to patient size. FINDINGS: No suspicious findings in the lung bases. The liver, spleen and pancreas show no suspicious findings on non-contrast imaging. Gallbladder is ab sent. No mass or abnormal fluid collection in the gallbladder fossa. Pneumobilia is present. There is contrast in the biliary tree. There are clips near the sphincter of Oddi and patient is presumed to have undergone a sphincterotomy. No hydronephrosis or suspicious renal mass. Lateral left renal cyst is similar to comparison. No vane nephric stranding. Nonobstructing lower pole calcification on the left. No significant adrenal findin g. Isodense renal masses and pyelonephritis cannot be excluded in the absence of IV contrast. Bladder is fully contracted around a John catheter. No bladder calculus seen. No dilated bowel loops or bowel wall thickening. No free air, free fluid or inflammatory stranding. N o hernia, mass or bulky lymphadenopathy. No suspicious bony findings. IMPRESSION: Non-contrast enhanced CT abdomen and pelvis imaging show no acute finding. Cholecystectomy changes are present. There is evidence for sphincterotomy with air and contrast in th e nondilated biliary tree. No acute pancreatic or biliary tree process. No acute or GI process seen. Full assessment is limited is the absence of IV contrast.
[2018-09-20] MEDS ORDERED: NA CHLORIDE 0.9% 1,000 ML ONE (19:32)
--- NOTE | 2018-09-20 21:02 | RAD REPORT ---
EXAM DESCRIPTION: US - Renal Ultrasound-Complete - 09/20/2018 7:37 pm CLINICAL HISTORY: Acute renal failure COMPARISON: August 12 FINDINGS: The right kidney measures 11.2 x 5.7 x 4.4 cm. The left kidney measures the from 10.1 x 6 .0 by 5.0 cm. Cortical thickness and echogenicity are similar to comparison. No hydronephrosis has de veloped. Bilateral renal cysts are present similar to the short interval August 12 study. No bladder wall thickening or mass. No intraluminal stone or mass. IMPRESSION: No hydronephrosis or suspicious renal mass. Benign renal cysts are present. No other significant findings.
[2018-09-20] MEDS ORDERED: MORPHINE 4 MG/ML SYR ONE (21:03)
[2018-09-20 21:06] VITALS: TEMP 97.7
[2018-09-20 21:12] VITALS: BP 106/70; O2SAT 99
--- NOTE | 2018-09-21 07:17 | EKG ---
Test Date: 2018-09-20 Test Time: 16:52:34 Coupon Collection Clerk: SISSY MEASUREMENT RESULTS: Intervals: Rate: 66 ND: 178 QRSD: 100 QT: 428 QTc: 448 [place]: P: 28 ND: 178 QRS: 81 T: 123 INTERPRETIVE STATEMENTS: Normal sinus rhythm Inferior infarct, age undetermined Lateral T wave inversion Abnormal ECG Compared to ECG 06/30/2018 11:33:34 Myocardial infarct finding now present Prolonged QT interval no longer present Electronically Signed On 09-21-18 07:17:04 LITERACY COACH by John Silva
== END 2018-09-20 21:02 | disposition short-term general hospital (02) ==
LOC: ER 16:28
DX: N17.9 Acute kidney failure, unspecified (principal); E86.9 Volume depletion, unspecified; K85.90 Acute pancreatitis without necrosis or infection, unspecified; I10 Essential (primary) hypertension; Z90.49 Acquired absence of other specified parts of digestive tract; Z91.013 Allergy to seafood; Z91.048 Other nonmedicinal substance allergy status; Z95.1 Presence of aortocoronary bypass graft
CPT/HCPCS: 36415; 71045; 74176; 76770; 80048; 80076; 83690; 83735; 83880; 84484; 85025; 85610; 93005; C9113; J2405; J7030

== ENCOUNTER 2020-09-15 18:01 | Inpatient (IN) | payer SELFPAY ==
--- OUTSIDE RECORDS SUMMARY | 2020-09-15 18:03 | XMS REPORT | Clinical Summary ---
:1960 Author Organization [facility] Address [address] [place] [address] Care Team Providers Name Role Phone Pcp Primary Care Provider Unavailable Allergies Active Allergy Reactions Severity Noted Date Comments Iodine And Iodide Containing Products Shellfish Containing Products Anaphylaxis High 06/30/2018 Medications Medication Sig Dispensed Refills Start Date End Date Status bumetanide (BUMEX) 1 Take 1 tablet (1 60 tablet 1 09/24/2018 1 11/25/2018 MG tablet mg total) by mouth daily. metoprolol Take 0.5 tablets 60 tablet 2 09/24/2018 09/24/2019 (LOPRESSOR) 25 MG (12.5 mg total) tablet by mouth 2 (two) times daily. 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 stive heart failure 07/03/2018 Cholelithiasis 07/03/2018 DEION (acute kidney injury) 07/03/2018 CKD (chronic kidney disease) stage 2, GFR 60-89 ml/min 07/03/2018 S/P CABG x 3 06/30/2018 Diabetes mellitus type 2 in obese 06/30/2018 Uncontrolled hypertension 06/30/2018 Chest pain 06/30/2018 Family History Medical History Relation Name Comments Diabetes Father Heart disease Father Hypertension Father Kidney disease Father Relation Name Status Comments Father Social History Tobacco Use Types Packs/Day Years Used Date Former Smoker Cigars, Pipe Quit: 06/30/19 95 Smokeless Tobacco: Never Used Alcohol Use Drinks/Week oz/Week Comments Yes 2 Glasses of wine 2.0 per month Sex Assigned at Date Recorded Not on file Last Filed Vital Signs Not on file Plan of Treatment Health Maintenance Due Date Last Done Comments PNEUMOCOCCAL VACCINE 0-64 YRS (1 of 1 - PPSV23) 1968 DIABETIC EYE EXAM 1972 DIABETIC FOOT EXAM 1972 URINE MICROALBUMIN 1972 HEMOGLOBIN A1C 12/29/2018 07/01/2018 COLON CANCER SCREENING ANNUAL FOBT 09/21/2019 09/21/2018 INFLUENZA VACCINE (#1) 2020 LIPID PANEL 07/01/2021 07/01/2018 Implants Implanted Type Area Lean Facilitator Device Shelf Model / Identifier Expiration Date Ser ial / Lot Stent Bili Advanix [id number] - [id number] Stents-Pe [place] 03/27/2020 3469 / Implanted: Qty: 1 on 07/06/2018 by Susanne Ho MD at [facility] ripheral SCI:PERIPHERAL / INTERV Description:DOI 07/06/18 Stent Bili Duodenal [id number] - [id number] Stents-Periphera l [place] SCI:ENDO 12/19/2019 3432 / Implanted: Qty: 1 on 07/06/2018 by Susanne Ho MD at [facility] / Description:DOI 07/06 Results Not on fileafter 09/15/2019 Advance Directives For more information, please contact: [phone] Code Status Date Activated Date Inactivated Comments Full Code 09/20/2018 11:03 PM This code status was determined by: Patient Full Code 06/30/2018 4:48 PM 07/24/2018 7:52 PM This code status was determined by: Patient
--- OUTSIDE RECORDS SUMMARY | 2020-09-15 18:10 | XMS REPORT | Continuity of Care Document ---
:1960 Author Organization [facility] t Address [address] [place] [address] Care Team Providers Name Role Phone Pcp Primary Care Physician Unavailable MIGUEL QUESADA Attending Clinician Unavailable Kari CORRAL Attending Clinician Unavailable MIGUEL QUESADA Admitting Clinician Unavailable Quinn SCHAEFER Admitting Clinician Unavailable Problems Condition Condition Condition Status Onset Resolution Last Treating Co mments Source Name Details Category Date Date Treatment Clinician Date Acute Acute Disease Active 2017-[address] [facility] renal renal 11[facility]21 [facility] failure failure 00:00: Medical (ARF) (ARF) 00 [place] Anemia Anemia Disease Active 2017-[address] [facility] [address] 11-21 [facility] - 00:[facility]: Medical 00 [place] Abdominal Abdominal Disease Active 2017-[address] [facility] pain pain 11-21 [facility] - 00:00: Medical 00 [place] Cardiogeni Cardiogeni Disease Active [facility] shock c shock 07-10 [facility] - 00:[facility]: Medical 00 [place] Pancreatit Pancreatit Disease Active [facility] is is 07-08 [facility] - 00:00: Medical [place] Acute Acute Disease Active [facility] blood loss blood loss 07-07 [facility] - anemia anemia 00:00: Medical 00 [place] Hemorrhagi Hemorrhagi Disease Active [facility] c shock c shock 07-07 [facility] - 00:[facility]: Medical 00 [place] Chest Chest Disease Active [facility] pain, pain, 07-06 [facility] - unspecifie unspecifie 00:00: Me dical d type d type 00 [place] Accelerate Accelerate Disease Active [facility] d 07-06 [facility] - hypertensi hypertensi 00:00: Me dical on on [place] Morbid Morbid Disease Active [facility] obesity obesity 07-06 [facility] - 00:[facility]: Medical 00 [place] Hyponatrem Hyponatrem Disease Active [facility] ia ia 07-06 [facility] - 00:00: Medical [place] GI bleed GI bleed Disease [facility] requiring [facility] - more than more than 00:00: Medi joycelyn 4 units of 4 units of 00 Ce nter blood in blood in 24 hours, 24 hours, ICU, or ICU, or surgery surgery Hypokalemi Hypokalemi Disease Active [facility] a a 07-04 [facility] - 00:00: Medical 00 [place] Hypomagnes Hypomagnes Disease Active [facility] emia emia 07-04 [facility] - 00:00: Medical [place] Prolonged Prolonged Disease Active [facility] QT QT 07-03 [facility] - syndrome syndrome 00:00: Medica l 00 [place] 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: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 [place] 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 Cholelithi Cholelithi Disease Active [facility] asis asis 07-03 [facility] - 00:[facility]: Medical 00 [place] DEION (acute DEION (acute Disease Active [facility] kidney kidney 07-03 [facility] - injury) injury) 00:00: Medical 00 [place] CKD CKD Disease Active [facility] (chronic (chronic 07-03 [facility] - kidney kidney 00:00: Medical disease) disease) 00 Center stage 2, stage 2, GFR 60-89 GFR 60-89 ml/min ml/min S/P CABG x S/P CABG x Disease Active [facility] 3 3 06-30 [facility] - 00:00: Medical 00 [place] Diabetes Diabetes Disease [facility] mellitus mellitus [facility] - type 2 in type 2 in 00:00: Medi joycelyn obese obese 00 Center Uncontroll Uncontroll Disease Active [facility] ed ed 06-30 [facility] - hypertensi hypertensi 00:00: Me dical on on [place] Chest pain Chest pain Disease Active [facility] 06-30 [facility] - 00:[facility]: Medical 00 Center Allergies, Adverse Reactions, Alerts Allergy Allergy Status Severity Reaction(s) Onset Inactive Treating Comm ents Source Name Type Date Date Clinician Iodine Propensi Active 2017-[address] [facility] [address] And ty to 11-20 [facility] - Iodide adverse 00:00: Medical Containi reaction 00 [place] ng s Products Shellfis Propensi Active Anaphylaxis [facility] h ty to 06-30 [facility] - Containi adverse 00:00: Medical ng reaction 00 Center Products s Family History Family Member Diagnosis Comments Start Date Stop Date Source Natural father Diabetes [facility] Natural father Heart disease [facility] Natural father Hypertension [facility] Natural father Kidney disease [facility] Social History Social Habit Start Date Stop Date Quantity Comments Source Sex Assigned At [facility] Tobacco use and 2018-09-25 2018-09-25 Never used [facility] - exposure 00:00:00 00:00:00 [facility] Alcohol intake 2018-09-25 2018-09-25 Current drinker [facility] - 00:00:00 00:00:00 [facility] (finding) Alcohol Comment 2018-06-30 2018-06-30 per month [facility] - 00:00:00 00:00:00 [facility] History of 1995-06-30 Current smoker [facility] Status Start Date Stop Date Source Former smoker 2018-09-25 00:00:00 2018-09-25 00:00:00 [facility] Medications Ordered Filled Start Stop Current Ordering Indication Dosage Frequency Signature Comments Components Source Medication Medication Date Date Medication? Clinician (SIG) Name Name bumetanide 2017-10- No 1mg QD Take [address] [facility] (BUMEX) 1 11-25 tablet (1 [facility] - MG tablet 00:00: 23:59 mg total) Me dical 00 :00 by mouth Center daily. metoprolol 2017-10- No 12.5mg Q.5D Take 0.[address] [facility] (LOPRESSOR) 11-25 tablets [facility] - 25 MG 00:00: 23:59 (12.5 mg Medical tablet 00 :00 total) by Center mouth 2 (two) times daily. Procedures This patient has no known procedures. Plan of Care Planned Activity Planned Date Details Comments Source Future Scheduled 2021-07-01 Lipid panel [facility] - Test 00:00:00 (procedure) [code = Medical Center 48345654] Future Scheduled 2020-06-24 INFLUENZA VACCINE (#1) [facility] - Test 00:00:00 [code = INFLUENZA Medical Ce nter VACCINE (#1)] Future Scheduled 2019-09-[address] [facility] - Test 00:00:00 malignant neoplasm of Medica Center colon (procedure) [code = 716696386] Future Scheduled 2018-12-[address] Amaya k[facility] - Test 00:00:00 measurement Medical Center (procedure) [code = 78313838] Future Scheduled 1972 DIABETIC EYE EXAM [facility] - Test 00:00:00 [code = DIABETIC EYE Medical Center EXAM] Future Scheduled [address] [facility] - Test 00:00:00 examination Medical Center (regime/therapy) [code = 386018458] Future Scheduled 1972 Urine screening for [facility] - Test 00:00:00 protein (procedure) Medical Center [code = 384546561] Future Scheduled [address] [facility] - Test 00:00:00 0-64 YRS (1 of 1 - Medical C enter PPSV23) [code = PNEUMOCOCCAL VACCINE 0-64 YRS (1 of 1 - PPSV23)] Results Test Description Test Time Test Comments Results Result [facility] e Comments [place], ERCP 2018-09-24 Reason for FINAL REPORT PATIENT 17:04:00 exam:->Abdomina ID: [id number] ERCP, l pain 09/24/2018 Clinical History: Abdominal pain Impression: Intraoperative images are obtained. The radiologist is not present during the procedure. Fluoroscopy was not performed by the undersigned. Images are presented for interpretation at the completion of the procedure. Please refer to the procedure report for more details. Three images submitted with fluoroscopy time of 42 seconds demonstrating interrogation of the biliary tree. Signed: Emile Shirley MDReport Verified Date/Time: 09/24/2018 17:04:26 Reading Location: [facility] [id number] Ortho Consult Reading Room C METABOLIC PANEL 2018-09-24 14:45:00 Test Item Value Reference Range Interpretation Comme nts SODIUM (BEAKER) (test code 137 meq/L 136-145 = 381) POTASSIUM (BEAKER) (test 5.2 meq/L 3.5-5.1 H code = 379) CHLORIDE (BEAKER) (test 107 meq/L 98-107 code = 382) CO2 (BEAKER) (test code = 23 meq/L 22-29 355) BLOOD UREA NITROGEN 21 mg/dL 7-21 (BEAKER) (test code = 354) CREATININE (BEAKER) (test 1.77 mg/dL 0.57-1.25 H code = 358) GLUCOSE RANDOM (BEAKER) 107 mg/dL 70-105 H (test code = 652) CALCIUM (BEAKER) (test code 9.5 mg/dL 8.4-10.2 = 697) EGFR (BEAKER) (test code = 40 mL/min/1.73 sq m ESTIMATED GFR IS NOT 1092) ACCURATE CRE ATININE CLEARANCE IN ID EDICTING GLOMERULAR FILT RATION RATE. ESTIMATED GFR IS NOT APPLICABLE FOR DIALYSIS PATIENTS. CBC W/PLT COUNT & AUTO [id number] 14:29:00 Test Item Value Reference Range Interpretation Comments WHITE BLOOD CELL COUNT (BEAKER) 5.7 K/ L 3.5-10.5 (test code = 775) RED BLOOD CELL COUNT (BEAKER) 4.22 M/ L 4.63-6.08 L (test code = 761) HEMOGLOBIN (BEAKER) (test code = 11.4 GM/DL 13.7-17.5 L 410) HEMATOCRIT (BEAKER) (test code = 36.8 % 40.1-51.0 L 411) MEAN CORPUSCULAR VOLUME (BEAKER) 87.2 fL 79.0-92.2 (test code = 753) MEAN CORPUSCULAR HEMOGLOBIN 27.0 pg 25.7-32.2 (BEAKER) (test code = 751) MEAN CORPUSCULAR HEMOGLOBIN CONC 31.0 GM/DL 32.3-36.5 L (BEAKER) (test code = 752) RED CELL DISTRIBUTION WIDTH 14.8 % 11.6-14.4 H (BEAKER) (test code = 412) PLATELET COUNT (BEAKER) (test 168 K/CU MM 150-450 code = 756) MEAN PLATELET VOLUME (BEAKER) 10.1 fL 9.4-12.4 (test code = 754) NUCLEATED RED BLOOD CELLS 0 /100 WBC 0-0 (BEAKER) (test code = 413) NEUTROPHILS RELATIVE PERCENT 66 % (BEAKER) (test code = 429) LYMPHOCYTES RELATIVE PERCENT 20 % (BEAKER) (test code = 430) MONOCYTES RELATIVE PERCENT 11 % (BEAKER) (test code = 431) EOSINOPHILS RELATIVE PERCENT 3 % (BEAKER) (test code = 432) BASOPHILS RELATIVE PERCENT 0 % (BEAKER) (test code = 437) NEUTROPHILS ABSOLUTE COUNT 3.77 K/ L 1.78-5.38 (BEAKER) (test code = 670) LYMPHOCYTES ABSOLUTE COUNT 1.15 K/ L 1.32-3.57 L (BEAKER) (test code = 414) MONOCYTES ABSOLUTE COUNT (BEAKER) 0.60 K/ L 0.30-0.82 (test code = 415) EOSINOPHILS ABSOLUTE COUNT 0.19 K/ L 0.04-0.54 (BEAKER) (test code = 416) BASOPHILS ABSOLUTE COUNT (BEAKER) 0.02 K/ L 0.01-0.08 (test code = 417) IMMATURE GRANULOCYTES-RELATIVE 0 % 0-1 PERCENT (BEAKER) (test code = 2801) POCT-GLUCOSE [id number] 11:57:00 Test Item Value Reference Range Interpretation Comments POC-GLUCOSE METER 142 mg/dL 70-110 H TESTED AT [place] [address] ([facility]) (test code = [facility] Janis [facility] 1538) [address] POCT-GLUCOSE [id number] 11:09:00 Test Item Value Reference Range Interpretation Comments POC-GLUCOSE METER 135 mg/dL 70-110 H TESTED AT [place] [address] ([facility]) (test code = [facility] Janis [facility] 1538) [address] POCT-GLUCOSE [id number] 05:59:00 Test Item Value Reference Range Interpretation Comments POC-GLUCOSE METER 118 mg/dL 70-110 H TESTED AT [place] [address] ([facility]) (test code = [facility] 1538) [address] POCT-GLUCOSE [id number] 01:15:00 Test Item Value Reference Range Interpretation Comments POC-GLUCOSE METER 107 mg/dL 70-110 TESTED AT [place] [address] ([facility]) (test code = [facility] 1538) [address] POCT-GLUCOSE [id number] 21:13:00 Test Item Value Reference Range Interpretation Comments POC-GLUCOSE METER 139 mg/dL 70-110 H TESTED AT [facility] 6720 (BEAKER) (test code = [facility] Jan[facility] 1538) [address] POCT-GLUCOSE [id number] 18:29:00 Test Item Value Reference Range Interpretation Comments POC-GLUCOSE METER 139 mg/dL 70-110 H TESTED AT [facility] 6720 (BEAKER) (test code = [facility] Janis [facility] 1538) [address] POCT-GLUCOSE [id number] 13:09:00 Test Item Value Reference Range Interpretation Comments POC-GLUCOSE METER 100 mg/dL 70-110 TESTED AT [facility] 67 (BEAKER) (test code = [facility] 1538) [address] BASIC METABOLIC [id number] 08:28:00 Test Item Value Reference Range Interpretation Comments SODIUM (BEAKER) 138 meq/L 136-145 (test code = 381) POTASSIUM (BEAKER) 4.6 meq/L 3.5-5.1 (test code = 379) CHLORIDE (BEAKER) 108 meq/L 98-107 H (test code = 382) CO2 (BEAKER) (test 22 meq/L 22-29 code = 355) BLOOD UREA NITROGEN 34 mg/dL 7-21 H (BEAKER) (test code = 354) CREATININE (BEAKER) 2.31 mg/dL 0.57-1.25 H (test code = 358) GLUCOSE RANDOM 100 mg/dL 70-105 (BEAKER) (test code = 652) CALCIUM (BEAKER) 8.9 mg/dL 8.4-10.2 (test code = 697) EGFR (BEAKER) (test 29 mL/min/1.73 ESTIMA KIMBER GFR IS code = 1092) sq m NOT ACCURATE CREATININE CLEARANCE IN PREDICTING GLOMERULAR FILTRATION RATE . ESTIMATED GFR I S NOT APPLICABLE FOR DIALYSIS PATIEN TS. [id number] 08:23:00 Test Item Value Reference Range Interpretation Comments MAGNESIUM (BEAKER) (test code = 2.5 mg/dL 1.6-2.6 627) URINALYSIS W/ REFLEX URINE [id number] 07:38:00 Test Item Value Reference Range Interpretation Comments COLOR (BEAKER) (test code = 470) Light Yellow CLARITY (BEAKER) (test code = Clear 469) SPECIFIC GRAVITY UA (BEAKER) 1.009 1.001-1.035 (test code = 468) PH UA (BEAKER) (test code = 467) 6.5 5.0-8.0 PROTEIN UA (BEAKER) (test code = Negative Negative 464) GLUCOSE UA (BEAKER) (test code = Negative Negative 365) KETONES UA (BEAKER) (test code = Negative Negative 371) BILIRUBIN UA (BEAKER) (test code Negative Negative = 462) BLOOD UA (BEAKER) (test code = Negative Negative 461) NITRITE UA (BEAKER) (test code = Negative Negative 465) LEUKOCYTE ESTERASE UA (BEAKER) Large Negative A (test code = 466) UROBILINOGEN UA (BEAKER) (test 0.2 mg/dL 0.2-1.0 code = 463) RBC UA (BEAKER) (test code = < /HPF 519) WBC UA (BEAKER) (test code = 8 /HPF 520) BACTERIA (BEAKER) (test code = Occasional 517) SQUAMOUS EPITHELIAL (BEAKER) 1 /HPF (test code = 516) SOURCE(BEAKER) (test code = 2795) POCT-GLUCOSE [id number] 07:08:00 Test Item Value Reference Range Interpretation Comments POC-GLUCOSE METER 127 mg/dL 70-110 H TESTED AT [facility] 6720 (BEAKER) (test code = [facility] [place] 1538) [address] CBC W/PLT COUNT & AUTO [id number] 07:02:00 Test Item Value Reference Range Interpretation Comments WHITE BLOOD CELL COUNT (BEAKER) 4.9 K/ L 3.5-10.5 (test code = 775) RED BLOOD CELL COUNT (BEAKER) 3.38 M/ L 4.63-6.08 L (test code = 761) HEMOGLOBIN (BEAKER) (test code = 9.2 GM/DL 13.7-17.5 L 410) HEMATOCRIT (BEAKER) (test code = 29.7 % 40.1-51.0 L 411) MEAN CORPUSCULAR VOLUME (BEAKER) 87.9 fL 79.0-92.2 (test code = 753) MEAN CORPUSCULAR HEMOGLOBIN 27.2 pg 25.7-32.2 (BEAKER) (test code = 751) MEAN CORPUSCULAR HEMOGLOBIN CONC 31.0 GM/DL 32.3-36.5 L (BEAKER) (test code = 752) RED CELL DISTRIBUTION WIDTH 15.0 % 11.6-14.4 H (BEAKER) (test code = 412) PLATELET COUNT (BEAKER) (test 151 K/CU MM 150-450 code = 756) MEAN PLATELET VOLUME (BEAKER) 10.4 fL 9.4-12.4 (test code = 754) NUCLEATED RED BLOOD CELLS 0 /100 WBC 0-0 (BEAKER) (test code = 413) NEUTROPHILS RELATIVE PERCENT 48 % (BEAKER) (test code = 429) LYMPHOCYTES RELATIVE PERCENT 32 % (BEAKER) (test code = 430) MONOCYTES RELATIVE PERCENT 11 % (BEAKER) (test code = 431) EOSINOPHILS RELATIVE PERCENT 8 % (BEAKER) (test code = 432) BASOPHILS RELATIVE PERCENT 0 % (BEAKER) (test code = 437) NEUTROPHILS ABSOLUTE COUNT 2.35 K/ L 1.78-5.38 (BEAKER) (test code = 670) LYMPHOCYTES ABSOLUTE COUNT 1.57 K/ L 1.32-3.57 (BEAKER) (test code = 414) MONOCYTES ABSOLUTE COUNT (BEAKER) 0.55 K/ L 0.30-0.82 (test code = 415) EOSINOPHILS ABSOLUTE COUNT 0.38 K/ L 0.04-0.54 (BEAKER) (test code = 416) BASOPHILS ABSOLUTE COUNT (BEAKER) 0.02 K/ L 0.01-0.08 (test code = 417) IMMATURE GRANULOCYTES-RELATIVE 0 % 0-1 PERCENT (BEAKER) (test code = 2801) PROTHROMBIN [id number] 06:52:00 Test Item Value Reference Range Interpretation Comments PROTIME (BEAKER) (test code = 15.7 seconds 11.7-14.7 H 759) INR (BEAKER) (test code = 370) 1.3 <=5.9 RECOMMENDED COUMADIN/WARFARIN INR THERAPY RANGESSTANDARD DOSE: 2.0 - 3.0 Includes: PROPHYLAXIS forvenous thrombosis, systemic embolization; TREATMENT for venous thrombosis and/or pulmonary embolus.HIGH RISK: Target INR is 2.5-3.5 for patients with mechanical heart valves.POCT-GLUCOSE [id number] 22:38:00 Test Item Value Reference Range Interpretation Comments POC-GLUCOSE METER 136 mg/dL 70-110 H TESTED AT [facility] 6720 (BEAKER) (test code = GENEVIEVE Bruce [facility] 1538) [address] POCT-GLUCOSE [id number] 18:00:00 Test Item Value Reference Range Interpretation Comments POC-GLUCOSE METER 124 mg/dL 70-110 H TESTED AT [place] [address] (BEAKER) (test code = GENEV[facility]E Bruce [facility] 1538) [address] POCT-GLUCOSE [id number] 12:37:00 Test Item Value Reference Range Interpretation Comments POC-GLUCOSE METER 174 mg/dL 70-110 H TESTED AT [place] [address] (BEAKER) (test code = GENEVIEVE Bruce [facility] 1538) [address] POCT-GLUCOSE [id number] 08:22:00 Test Item Value Reference Range Interpretation Comments POC-GLUCOSE METER 109 mg/dL 70-110 TESTED AT [place] [address] (BEAKER) (test code = GENEV[facility]E Bruce [facility] 1538) [address] BASIC METABOLIC [id number] 06:30:00 Test Item Value Reference Range Interpretation Comments SODIUM (BEAKER) 137 meq/L 136-145 (test code = 381) POTASSIUM (BEAKER) 4.3 meq/L 3.5-5.1 (test code = 379) CHLORIDE (BEAKER) 106 meq/L 98-107 (test code = 382) CO2 (BEAKER) (test 25 meq/L 22-29 code = 355) BLOOD UREA NITROGEN 52 mg/dL 7-21 H (BEAKER) (test code = 354) CREATININE (BEAKER) 2.91 mg/dL 0.57-1.25 H (test code = 358) GLUCOSE RANDOM 91 mg/dL 70-105 (BEAKER) (test code = 652) CALCIUM (BEAKER) 8.5 mg/dL 8.4-10.2 (test code = 697) EGFR (BEAKER) (test 23 mL/min/1.73 ESTIMA KIMBER GFR IS code = 1092) sq m NOT ACCURATE CREATININE CLEARANCE IN PREDICTING GLOMERULAR FILTRATION RATE . ESTIMATED GFR I S NOT APPLICABLE FOR DIALYSIS PATIEN TS. [id number] 06:25:00 Test Item Value Reference Range Interpretation Comments MAGNESIUM (BEAKER) (test code = 2.2 mg/dL 1.6-2.6 627) CBC W/PLT COUNT & AUTO [id number] 05:58:00 Test Item Value Reference Range Interpretation Comments WHITE BLOOD CELL COUNT (BEAKER) 5.7 K/ L 3.5-10.5 (test code = 775) RED BLOOD CELL COUNT (BEAKER) 3.37 M/ L 4.63-6.08 L (test code = 761) HEMOGLOBIN (BEAKER) (test code = 9.2 GM/DL 13.7-17.5 L 410) HEMATOCRIT (BEAKER) (test code = 29.7 % 40.1-51.0 L 411) MEAN CORPUSCULAR VOLUME (BEAKER) 88.1 fL 79.0-92.2 (test code = 753) MEAN CORPUSCULAR HEMOGLOBIN 27.3 pg 25.7-32.2 (BEAKER) (test code = 751) MEAN CORPUSCULAR HEMOGLOBIN CONC 31.0 GM/DL 32.3-36.5 L (BEAKER) (test code = 752) RED CELL DISTRIBUTION WIDTH 14.9 % 11.6-14.4 H (BEAKER) (test code = 412) PLATELET COUNT (BEAKER) (test 167 K/CU MM 150-450 code = 756) MEAN PLATELET VOLUME (BEAKER) 10.1 fL 9.4-12.4 (test code = 754) NUCLEATED RED BLOOD CELLS 0 /100 WBC 0-0 (BEAKER) (test code = 413) NEUTROPHILS RELATIVE PERCENT 46 % (BEAKER) (test code = 429) LYMPHOCYTES RELATIVE PERCENT 33 % (BEAKER) (test code = 430) MONOCYTES RELATIVE PERCENT 11 % (BEAKER) (test code = 431) EOSINOPHILS RELATIVE PERCENT 9 % (BEAKER) (test code = 432) BASOPHILS RELATIVE PERCENT 1 % (BEAKER) (test code = 437) NEUTROPHILS ABSOLUTE COUNT 2.64 K/ L 1.78-5.38 (BEAKER) (test code = 670) LYMPHOCYTES ABSOLUTE COUNT 1.88 K/ L 1.32-3.57 (BEAKER) (test code = 414) MONOCYTES ABSOLUTE COUNT (BEAKER) 0.60 K/ L 0.30-0.82 (test code = 415) EOSINOPHILS ABSOLUTE COUNT 0.51 K/ L 0.04-0.54 (BEAKER) (test code = 416) BASOPHILS ABSOLUTE COUNT (AKER) 0.04 K/ L 0.01-0.08 (test code = 417) IMMATURE GRANULOCYTES-RELATIVE 0 % 0-1 PERCENT (AKER) (test code = 2801) POCT-GLUCOSE [id number] 23:58:00 Test Item Value Reference Range Interpretation Comments POC-GLUCOSE METER 130 mg/dL 70-110 H TESTED AT [place] [address] ([facility]) (test code = [facility] 1538) [address] OCCULT BLOOD, [id number] 21:20:00 Test Item Value Reference Range Interpretation Comments FECAL OCCULT BLOOD ([facility]) (test Negative Negative code = 618) RETICULOCYTE [id number] 17:55:00 Test Item Value Reference Range Interpretation Comments RETICULOCYTE COUNT PCT ([facility]) (test 0.8 % 0.5-1.8 code = 575) POCT-GLUCOSE [id number] 17:43:00 Test Item Value Reference Range Interpretation Comments POC-GLUCOSE METER 108 mg/dL 70-110 TESTED AT [place] [address] ([facility]) (test code = [facility] 1538) [address] [id number] 17:11:00 Test Item Value Reference Range Interpretation Comments FERRITIN (BEAKER) (test code = 361) 44 ng/mL 5-275 IRON, TIBC, % SAT. (WITHOUT FERRITIN)2018-09-21 16:52:00 Test Item Value Reference Range Interpretation Comments IRON (BEAKER) (test code = 547) 46 ug/dL 40-160 TOTAL IRON BINDING CAPACITY 330 ug/dL 250-450 (AKER) (test code = 769) IRON % SATURATION (2) (AKER) 14 % 20-55 L (test code = 2590) POCT-GLUCOSE [id number] 11:43:00 Test Item Value Reference Range Interpretation Comments POC-GLUCOSE METER 112 mg/dL 70-110 H TESTED AT [place] [address] ([facility]) (test code = [facility] 1538) [address] U/S, ABDOMINAL, [id number] 08:34:00Reason for exam:->acute renal failure and recent cholecystecomy with abd painFINAL REPORT TECHNIQUE: Grayscale ultrasound of the abdomen. INDICATION: 58-year-old man with abdominal pain and acute renal failure after recent cholecystectomy. COMPARISON: Abdomen ultrasound 07/03/2018. FINDINGS: MIDLINE VASCULATURE: The visualized inferior vena cava is patent. Portal vein is patent. The maximum visualized aortic diameter is 2.1 cm. LIVER: The liver is normal in size and echogenicity. Smooth liver contour. No focal lesions. BILIARY:Gallbladder: Prior cholecystectomy.Common bile duct measures 0.3 cm, within normal limits. No intrahepatic biliary ductal dilatation. Pneumobilia. PANCREAS: Visualized portions of the pancreas are unremarkable. SPLEEN: No splenomegaly. PERITONEUM: No free fluid. KIDNEYS: Normal in size bilaterally. No hydronephrosis. No sonographically evident solid mass lesion. Cyst in the left interpolar region measures 1.9 x 2.1 x 2 cm. IMPRESSION:Unremarkable abdominal ultrasound after cholecystectomy. Signed: Papi Chavis MDReport Verified Date/Time: 09/21/2018 08:34:21 Reading Location: [address] Ultrasound Reading Room POCT- GLUCOSE [id number] 06:34:00 Test Item Value Reference Range Interpretation Comments POC-GLUCOSE METER 83 mg/dL 70-110 TESTED AT [facility] 6720 ([facility]) (test code = GENEV[facility]EVE Bruce [facility] [address] 1538) BASIC METABOLIC [id number] 06:14:00 Test Item Value Reference Range Interpretation Comments SODIUM (BEAKER) 134 meq/L 136-145 L (test code = 381) POTASSIUM (BEAKER) 4.5 meq/L 3.5-5.1 (test code = 379) CHLORIDE (BEAKER) 102 meq/L 98-107 (test code = 382) CO2 (BEAKER) (test 20 meq/L 22-29 L code = 355) BLOOD UREA NITROGEN 58 mg/dL 7-21 H (BEAKER) (test code = 354) CREATININE (BEAKER) 3.46 mg/dL 0.57-1.25 H (test code = 358) GLUCOSE RANDOM 63 mg/dL 70-105 L (BEAKER) (test code = 652) CALCIUM (BEAKER) 8.8 mg/dL 8.4-10.2 (test code = 697) EGFR (BEAKER) (test 18 mL/min/1.73 ESTIMA KIMBER GFR IS code = 1092) sq m NOT ACCURATE CREATININE CLEARANCE IN PREDICTING GLOMERULAR FILTRATION RATE . ESTIMATED GFR I S NOT APPLICABLE FOR DIALYSIS PATIEN TS. [id number] 06:10:00 Test Item Value Reference Range Interpretation Comments MAGNESIUM (BEAKER) (test code = 2.4 mg/dL 1.6-2.6 627) CBC W/PLT COUNT & AUTO [id number] 05:16:00 Test Item Value Reference Range Interpretation Comments WHITE BLOOD CELL COUNT (BEAKER) 6.0 K/ L 3.5-10.5 (test code = 775) RED BLOOD CELL COUNT (BEAKER) 3.47 M/ L 4.63-6.08 L (test code = 761) HEMOGLOBIN (BEAKER) (test code = 9.6 GM/DL 13.7-17.5 L 410) HEMATOCRIT (BEAKER) (test code = 30.6 % 40.1-51.0 L 411) MEAN CORPUSCULAR VOLUME (BEAKER) 88.2 fL 79.0-92.2 (test code = 753) MEAN CORPUSCULAR HEMOGLOBIN 27.7 pg 25.7-32.2 (BEAKER) (test code = 751) MEAN CORPUSCULAR HEMOGLOBIN CONC 31.4 GM/DL 32.3-36.5 L (BEAKER) (test code = 752) RED CELL DISTRIBUTION WIDTH 14.8 % 11.6-14.4 H (BEAKER) (test code = 412) PLATELET COUNT (BEAKER) (test 163 K/CU MM 150-450 code = 756) MEAN PLATELET VOLUME (BEAKER) 10.9 fL 9.4-12.4 (test code = 754) NUCLEATED RED BLOOD CELLS 0 /100 WBC 0-0 (BEAKER) (test code = 413) NEUTROPHILS RELATIVE PERCENT 50 % (BEAKER) (test code = 429) LYMPHOCYTES RELATIVE PERCENT 34 % (BEAKER) (test code = 430) MONOCYTES RELATIVE PERCENT 11 % (BEAKER) (test code = 431) EOSINOPHILS RELATIVE PERCENT 5 % (BEAKER) (test code = 432) BASOPHILS RELATIVE PERCENT 1 % (BEAKER) (test code = 437) NEUTROPHILS ABSOLUTE COUNT 2.99 K/ L 1.78-5.38 (BEAKER) (test code = 670) LYMPHOCYTES ABSOLUTE COUNT 2.05 K/ L 1.32-3.57 (BEAKER) (test code = 414) MONOCYTES ABSOLUTE COUNT (BEAKER) 0.63 K/ L 0.30-0.82 (test code = 415) EOSINOPHILS ABSOLUTE COUNT 0.28 K/ L 0.04-0.54 (BEAKER) (test code = 416) BASOPHILS ABSOLUTE COUNT (BEAKER) 0.04 K/ L 0.01-0.08 (test code = 417) IMMATURE GRANULOCYTES-RELATIVE 0 % 0-1 PERCENT (BEAKER) (test code = 2801) URINALYSIS WITH MICROSCOPIC IF [id number] 05:08:00 Test Item Value Reference Range Interpretation Comments COLOR (BEAKER) (test code = 470) Light Yellow CLARITY (BEAKER) (test code = Hazy 469) SPECIFIC GRAVITY UA (BEAKER) 1.010 1.001-1.035 (test code = 468) PH UA (BEAKER) (test code = 467) 5.0 5.0-8.0 PROTEIN UA (BEAKER) (test code = Negative Negative 464) GLUCOSE UA (BEAKER) (test code = Negative Negative 365) KETONES UA (BEAKER) (test code = Trace Negative A 371) BILIRUBIN UA (BEAKER) (test code Negative Negative = 462) BLOOD UA (BEAKER) (test code = Negative Negative 461) NITRITE UA (BEAKER) (test code = Negative Negative 465) LEUKOCYTE ESTERASE UA (BEAKER) Large Negative A (test code = 466) UROBILINOGEN UA (BEAKER) (test 0.2 mg/dL 0.2-1.0 code = 463) SOURCE(BEAKER) (test code = 2795) URINALYSIS [id number] 05:08:00 Test Item Value Reference Range Interpretation Comments RBC UA (BEAKER) (test code = 519) 1 /HPF WBC UA (BEAKER) (test code = 520) 87 /HPF MUCUS (BEAKER) (test code = 1574) Rare SQUAMOUS EPITHELIAL (BEAKER) (test < /HPF code = 516) HYALINE CASTS (BEAKER) (test code = 16 /LPF 514) CALCIUM OXALATE CRYSTALS (BEAKER) Rare (test code = 518) AMORPHOUS CRYSTALS (BEAKER) (test Rare code = 1584) CREATININE, RANDOM [id number] 05:03:00 Test Item Value Reference Range Interpretation Comments CREATININE URINE (BEAKER) (test 95.1 mg/dL code = 375) Reference Range: No NormalsSODIUM, RANDOM [id number] 05:03:00 Test Item Value Reference Range Interpretation Comments SODIUM URINE (BEAKER) (test code = 45 meq/L 243) Reference Range: No NormalsUREA NITROGEN, RANDOM [id number] 05:03:00 Test Item Value Reference Range Interpretation Comments UREA NITROGEN URINE (BEAKER) (test 494 mg/dL code = 538) Reference Range: No NormalsCOMPREHENSIVE METABOLIC [id number] 00:16:00 Test Item Value Reference Range Interpretation Comments TOTAL PROTEIN 6.5 gm/dL 6.0-8.3 (BEAKER) (test code = 770) ALBUMIN (BEAKER) 3.6 g/dL 3.5-5.0 (test code = 1145) ALKALINE PHOSPHATASE 107 U/L 40-150 (BEAKER) (test code = 346) BILIRUBIN TOTAL 0.8 mg/dL 0.2-1.2 (BEAKER) (test code = 377) SODIUM (BEAKER) (test 134 meq/L 136-145 L code = 381) POTASSIUM (BEAKER) 4.4 meq/L 3.5-5.1 (test code = 379) CHLORIDE (BEAKER) 100 meq/L 98-107 (test code = 382) CO2 (BEAKER) (test 21 meq/L 22-29 L code = 355) BLOOD UREA NITROGEN 59 mg/dL 7-21 H (BEAKER) (test code = 354) CREATININE (BEAKER) 3.50 mg/dL 0.57-1.25 H (test code = 358) GLUCOSE RANDOM 78 mg/dL 70-105 (BEAKER) (test code = 652) CALCIUM (BEAKER) 8.8 mg/dL 8.4-10.2 (test code = 697) AST (SGOT) (BEAKER) 30 U/L 5-34 (test code = 353) ALT (SGPT) (BEAKER) 16 U/L 6-55 (test code = 347) EGFR (BEAKER) (test 18 mL/min/1.73 ESTIMA KIMBER GFR IS code = 1092) sq m NOT ACCURATE CREATININE CLEARANCE IN PREDICTING GLOMERULAR FILTRATION RATE . ESTIMATED GFR I S NOT APPLICABLE FOR DIALYSIS PATIEN TS. B-TYPE NATRIURETIC FACTOR (BNP)2018-09-21 00:12:00 Test Item Value Reference Range Interpretation Comments B-TYPE NATRIURETIC PEPTIDE (BEAKER) 90 pg/mL 0-100 (test code = 700) [id number] 00:11:00 Test Item Value Reference Range Interpretation Comments LIPASE (BEAKER) (test code = 749) 94 U/L 8-78 H [id number] 00:11:00 Test Item Value Reference Range Interpretation Comments AMYLASE (BEAKER) (test code = 349) 71 U/L 25-125 LACTIC ACID, VENOUS, WHOLE [id number] 00:04:00 Test Item Value Reference Range Interpretation Comments LACTATE BLOOD VENOUS 0.8 mmol/L 0.5-2.2 Specime n slightly (2) (BEAKER) (test hemolyzed code = 0282) CBC W/PLT COUNT & AUTO [id number] 23:48:00 Test Item Value Reference Range Interpretation Comments WHITE BLOOD CELL COUNT (BEAKER) 6.8 K/ L 3.5-10.5 (test code = 775) RED BLOOD CELL COUNT (BEAKER) 3.67 M/ L 4.63-6.08 L (test code = 761) HEMOGLOBIN (BEAKER) (test code = 10.0 GM/DL 13.7-17.5 L 410) HEMATOCRIT (BEAKER) (test code = 31.9 % 40.1-51.0 L 411) MEAN CORPUSCULAR VOLUME (BEAKER) 86.9 fL 79.0-92.2 (test code = 753) MEAN CORPUSCULAR HEMOGLOBIN 27.2 pg 25.7-32.2 (BEAKER) (test code = 751) MEAN CORPUSCULAR HEMOGLOBIN CONC 31.3 GM/DL 32.3-36.5 L (BEAKER) (test code = 752) RED CELL DISTRIBUTION WIDTH 14.9 % 11.6-14.4 H (BEAKER) (test code = 412) PLATELET COUNT (BEAKER) (test 178 K/CU MM 150-450 code = 756) MEAN PLATELET VOLUME (BEAKER) 9.9 fL 9.4-12.4 (test code = 754) NUCLEATED RED BLOOD CELLS 0 /100 WBC 0-0 (BEAKER) (test code = 413) NEUTROPHILS RELATIVE PERCENT 55 % (BEAKER) (test code = 429) LYMPHOCYTES RELATIVE PERCENT 29 % (BEAKER) (test code = 430) MONOCYTES RELATIVE PERCENT 11 % (BEAKER) (test code = 431) EOSINOPHILS RELATIVE PERCENT 4 % (BEAKER) (test code = 432) BASOPHILS RELATIVE PERCENT 1 % (BEAKER) (test code = 437) NEUTROPHILS ABSOLUTE COUNT 3.75 K/ L 1.78-5.38 (BEAKER) (test code = 670) LYMPHOCYTES ABSOLUTE COUNT 2.00 K/ L 1.32-3.57 (BEAKER) (test code = 414) MONOCYTES ABSOLUTE COUNT (BEAKER) 0.72 K/ L 0.30-0.82 (test code = 415) EOSINOPHILS ABSOLUTE COUNT 0.27 K/ L 0.04-0.54 (BEAKER) (test code = 416) BASOPHILS ABSOLUTE COUNT (BEAKER) 0.05 K/ L 0.01-0.08 (test code = 417) IMMATURE GRANULOCYTES-RELATIVE 0 % 0-1 PERCENT (BEAKER) (test code = 2801) HEMOGLOBIN AND [id number] 13:29:00 Test Item Value Reference Range Interpretation Comments HEMOGLOBIN (BEAKER) (test code = 9.4 GM/DL 13.7-17.5 L 410) HEMATOCRIT (BEAKER) (test code = 29.2 % 40.1-51.0 L 411) POCT-GLUCOSE [id number] 12:50:00 Test Item Value Reference Range Interpretation Comments POC-GLUCOSE METER 188 mg/dL 70-110 H TESTED AT [facility] 6720 (BEAKER) (test code = [place] 1538) [id number] BASIC METABOLIC [id number] 10:11:00 Test Item Value Reference Range Interpretation Comments SODIUM (BEAKER) 136 meq/L 136-145 (test code = 381) POTASSIUM (BEAKER) 3.8 meq/L 3.5-5.1 (test code = 379) CHLORIDE (BEAKER) 98 meq/L 98-107 (test code = 382) CO2 (BEAKER) (test 30 meq/L 22-29 H code = 355) BLOOD UREA NITROGEN 18 mg/dL 7-21 (BEAKER) (test code = 354) CREATININE (BEAKER) 1.79 mg/dL 0.57-1.25 H (test code = 358) GLUCOSE RANDOM 125 mg/dL 70-105 H (BEAKER) (test code = 652) CALCIUM (BEAKER) 9.1 mg/dL 8.4-10.2 (test code = 697) EGFR (BEAKER) (test 39 mL/min/1.73 ESTIMA KIMBER GFR IS code = 1092) sq m NOT ACCURATE CREATININE CLEARANCE IN PREDICTING GLOMERULAR FILTRATION RATE . ESTIMATED GFR I S NOT APPLICABLE FOR DIALYSIS PATIEN TS. Specimen slightly ictericPOCT-GLUCOSE [id number] 09:55:00 Test Item Value Reference Range Interpretation Comments POC-GLUCOSE METER 149 mg/dL 70-110 H TESTED AT [facility] 6720 (BEAKER) (test code = GENEVIEVE Bruce [place] 1538) [id number] PROTHROMBIN [id number] 05:39:00 Test Item Value Reference Range Interpretation Comments PROTIME (BEAKER) (test code = 15.8 seconds 11.7-14.7 H 759) INR (BEAKER) (test code = 370) 1.3 <=5.9 RECOMMENDED COUMADIN/WARFARIN INR THERAPY RANGESSTANDARD DOSE: 2.0 - 3.0 Includes: PROPHYLAXIS forvenous thrombosis, systemic embolization; TREATMENT for venous thrombosis and/or pulmonary embolus.HIGH RISK: Target INR is 2.5-3.5 for patients with mechanical heart valves.[id number] 05:31:00 Test Item Value Reference Range Interpretation Comments MAGNESIUM (BEAKER) (test code = 1.5 mg/dL 1.6-2.6 L 627) HEPATIC FUNCTION [id number] 05:31:00 Test Item Value Reference Range Interpretation Comments TOTAL PROTEIN (BEAKER) (test code = 5.7 gm/dL 6.0-8.3 L 770) ALBUMIN (BEAKER) (test code = 1145) 3.0 g/dL 3.5-5.0 L BILIRUBIN TOTAL (BEAKER) (test code 1.7 mg/dL 0.2-1.2 H = 377) BILIRUBIN DIRECT (BEAKER) (test 1.1 mg/dL 0.1-0.5 H code = 706) ALKALINE PHOSPHATASE (BEAKER) (test 122 U/L 40-150 code = 346) AST (SGOT) (BEAKER) (test code = 29 U/L 5-34 353) ALT (SGPT) (BEAKER) (test code = 23 U/L 6-55 347) CBC W/PLT COUNT & AUTO [id number] 05:15:00 Test Item Value Reference Range Interpretation Comments WHITE BLOOD CELL COUNT (BEAKER) 10.5 K/ L 3.5-10.5 (test code = 775) RED BLOOD CELL COUNT (BEAKER) 2.79 M/ L 4.63-6.08 L (test code = 761) HEMOGLOBIN (BEAKER) (test code = 8.4 GM/DL 13.7-17.5 L 410) HEMATOCRIT (BEAKER) (test code = 26.1 % 40.1-51.0 L 411) MEAN CORPUSCULAR VOLUME (BEAKER) 93.5 fL 79.0-92.2 H (test code = 753) MEAN CORPUSCULAR HEMOGLOBIN 30.1 pg 25.7-32.2 (BEAKER) (test code = 751) MEAN CORPUSCULAR HEMOGLOBIN CONC 32.2 GM/DL 32.3-36.5 L (BEAKER) (test code = 752) RED CELL DISTRIBUTION WIDTH 16.0 % 11.6-14.4 H (BEAKER) (test code = 412) PLATELET COUNT (BEAKER) (test 257 K/CU MM 150-450 code = 756) MEAN PLATELET VOLUME (BEAKER) 9.7 fL 9.4-12.4 (test code = 754) NUCLEATED RED BLOOD CELLS 0 /100 WBC 0-0 (BEAKER) (test code = 413) NEUTROPHILS RELATIVE PERCENT 67 % (BEAKER) (test code = 429) LYMPHOCYTES RELATIVE PERCENT 12 % (BEAKER) (test code = 430) MONOCYTES RELATIVE PERCENT 14 % (BEAKER) (test code = 431) EOSINOPHILS RELATIVE PERCENT 6 % (BEAKER) (test code = 432) BASOPHILS RELATIVE PERCENT 1 % (BEAKER) (test code = 437) NEUTROPHILS ABSOLUTE COUNT 7.10 K/ L 1.78-5.38 H (BEAKER) (test code = 670) LYMPHOCYTES ABSOLUTE COUNT 1.29 K/ L 1.32-3.57 L (BEAKER) (test code = 414) MONOCYTES ABSOLUTE COUNT (BEAKER) 1.42 K/ L 0.30-0.82 H (test code = 415) EOSINOPHILS ABSOLUTE COUNT 0.61 K/ L 0.04-0.54 H (BEAKER) (test code = 416) BASOPHILS ABSOLUTE COUNT (BEAKER) 0.05 K/ L 0.01-0.08 (test code = 417) IMMATURE GRANULOCYTES-RELATIVE 1 % 0-1 PERCENT (BEAKER) (test code = 2801) POCT-GLUCOSE [id number] 21:20:00 Test Item Value Reference Range Interpretation Comments POC-GLUCOSE METER 145 mg/dL 70-110 H TESTED AT [facility] 6720 (BEAKER) (test code = GENEVIEVE Bruce [place] 1538) [address] POCT-GLUCOSE [id number] 18:26:00 Test Item Value Reference Range Interpretation Comments POC-GLUCOSE METER 145 mg/dL 70-110 H TESTED AT [place] [address] ([facility]) (test code = GENEVIEVE Bruce [place] 1538) [address] HEMOGLOBIN AND [id number] 18:06:00 Test Item Value Reference Range Interpretation Comments HEMOGLOBIN (BEAKER) (test code = 9.2 GM/DL 13.7-17.5 L 410) HEMATOCRIT (BEAKER) (test code = 28.3 % 40.1-51.0 L 411) CBC W/PLT COUNT & AUTO [id number] 13:13:00 Test Item Value Reference Range Interpretation Comments WHITE BLOOD CELL COUNT (BEAKER) 13.1 K/ L 3.5-10.5 H (test code = 775) RED BLOOD CELL COUNT (BEAKER) 2.78 M/ L 4.63-6.08 L (test code = 761) HEMOGLOBIN (BEAKER) (test code = 8.5 GM/DL 13.7-17.5 L 410) HEMATOCRIT (BEAKER) (test code = 26.1 % 40.1-51.0 L 411) MEAN CORPUSCULAR VOLUME (BEAKER) 93.9 fL 79.0-92.2 H (test code = 753) MEAN CORPUSCULAR HEMOGLOBIN 30.6 pg 25.7-32.2 (BEAKER) (test code = 751) MEAN CORPUSCULAR HEMOGLOBIN CONC 32.6 GM/DL 32.3-36.5 (BEAKER) (test code = 752) RED CELL DISTRIBUTION WIDTH 16.1 % 11.6-14.4 H (BEAKER) (test code = 412) PLATELET COUNT (BEAKER) (test 257 K/CU MM 150-450 code = 756) MEAN PLATELET VOLUME (BEAKER) 9.8 fL 9.4-12.4 (test code = 754) NUCLEATED RED BLOOD CELLS 0 /100 WBC 0-0 (BEAKER) (test code = 413) (MANUAL DIFFERENTIAL)[id number] 13:13:00 Test Item Value Reference Range Interpretation Comments NEUTROPHILS - REL (DIFF) (BEAKER) 85 % (test code = 1359) LYMPHOCYTES - REL (DIFF) (BEAKER) 9 % (test code = 1360) MONOCYTES - REL (DIFF) (BEAKER) 5 % (test code = 1361) EOSINOPHILS - REL (DIFF) (BEAKER) 1 % (test code = 1362) BASOPHILS - REL (DIFF) (BEAKER) 0 % (test code = 1363) NEUTROPHILS - ABS (DIFF) (BEAKER) 11.14 K/ L 1.80-8.00 H (test code = 1365) LYMPHOCYTES - ABS (DIFF) (BEAKER) 1.18 K/ L 1.48-4.50 L (test code = 1366) MONOCYTES - ABS (DIFF) (BEAKER) 0.66 K/ L 0.00-1.30 (test code = 1367) EOSINOPHILS - ABS (DIFF) (BEAKER) 0.13 K/ L 0.00-0.50 (test code = 1368) BASOPHILS - ABS (DIFF) (BEAKER) 0.00 K/ L 0.00-0.20 (test code = 1369) TOTAL COUNTED (BEAKER) (test code 100 = 1351) WBC MORPHOLOGY (BEAKER) (test code Normal = 487) PLT MORPHOLOGY (BEAKER) (test code Normal = 486) ANISOCYTOSIS (BEAKER) (test code = 1+ few 961) MICROCYTES (BEAKER) (test code = 1+ few 965) POCT-GLUCOSE [id number] 12:54:00 Test Item Value Reference Range Interpretation Comments POC-GLUCOSE METER 146 mg/dL 70-110 H TESTED AT [facility] 6720 (BEAKER) (test code = GENEVIEVE [place] 1538) [address] POCT-GLUCOSE [id number] 09:05:00 Test Item Value Reference Range Interpretation Comments POC-GLUCOSE METER 143 mg/dL 70-110 H TESTED AT [facility] 6720 (BEAKER) (test code = [place]IEVE [place] 1538) [address] [id number] 07:26:00 Test Item Value Reference Range Interpretation Comments MAGNESIUM (BEAKER) (test code = 1.8 mg/dL 1.6-2.6 627) BASIC METABOLIC [id number] 07:26:00 Test Item Value Reference Range Interpretation Comments SODIUM (BEAKER) 139 meq/L 136-145 (test code = 381) POTASSIUM (BEAKER) 3.4 meq/L 3.5-5.1 L (test code = 379) CHLORIDE (BEAKER) 101 meq/L 98-107 (test code = 382) CO2 (BEAKER) (test 29 meq/L 22-29 code = 355) BLOOD UREA NITROGEN 16 mg/dL 7-21 (BEAKER) (test code = 354) CREATININE (BEAKER) 1.65 mg/dL 0.57-1.25 H (test code = 358) GLUCOSE RANDOM 113 mg/dL 70-105 H (BEAKER) (test code = 652) CALCIUM (BEAKER) 8.4 mg/dL 8.4-10.2 (test code = 697) EGFR (BEAKER) (test 43 mL/min/1.73 ESTIMA KIMBER GFR IS code = 1092) sq m NOT ACCURATE CREATININE CLEARANCE IN PREDICTING GLOMERULAR FILTRATION RATE . ESTIMATED GFR I S NOT APPLICABLE FOR DIALYSIS PATIEN TS. HEPATIC FUNCTION [id number] 07:26:00 Test Item Value Reference Range Interpretation Comments TOTAL PROTEIN (BEAKER) (test code = 5.1 gm/dL 6.0-8.3 L 770) ALBUMIN (BEAKER) (test code = 1145) 2.7 g/dL 3.5-5.0 L BILIRUBIN TOTAL (BEAKER) (test code 1.6 mg/dL 0.2-1.2 H = 377) BILIRUBIN DIRECT (BEAKER) (test 0.9 mg/dL 0.1-0.5 H code = 706) ALKALINE PHOSPHATASE (BEAKER) (test 114 U/L 40-150 code = 346) AST (SGOT) (BEAKER) (test code = 30 U/L 5-34 353) ALT (SGPT) ([facility]) (test code = 25 U/L 6-55 347) CALCIUM, [id number] 07:09:00 Test Item Value Reference Range Interpretation Comments CALCIUM IONIZED ([facility]) (test 1.08 mmol/L 1.12-1.27 L code = 698) PH, BLOOD ([facility]) (test code = 7.52 1810) PROTHROMBIN [id number] 07:07:00 Test Item Value Reference Range Interpretation Comments PROTIME ([facility]) (test code = 14.9 seconds 11.7-14.7 H 759) INR ([facility]) (test code = 370) 1.2 <=5.9 RECOMMENDED COUMADIN/WARFARIN INR THERAPY RANGESSTANDARD DOSE: 2.0 - 3.0 Includes: PROPHYLAXIS forvenous thrombosis, systemic embolization; TREATMENT for venous thrombosis and/or pulmonary embolus.HIGH RISK: Target INR is 2.5-3.5 for patients with mechanical heart valves.POCT-GLUCOSE [id number] 21:30:00 Test Item Value Reference Range Interpretation Comments POC-GLUCOSE METER 133 mg/dL 70-110 H TESTED AT [place] [address] ([facility]) (test code = [facility] Janis [facility] 1538) [id number] POCT-GLUCOSE [id number] 17:52:00 Test Item Value Reference Range Interpretation Comments POC-GLUCOSE METER 270 mg/dL 70-110 H TESTED AT [place] [address] ([facility]) (test code = [facility] 1538) [address] HEMOGLOBIN AND [id number] 16:27:00 Test Item Value Reference Range Interpretation Comments HEMOGLOBIN ([facility]) (test code = 8.9 GM/DL 13.7-17.5 L 410) HEMATOCRIT ([facility]) (test code = 27.7 % 40.1-51.0 L 411) POCT-GLUCOSE [id number] 08:55:00 Test Item Value Reference Range Interpretation Comments POC-GLUCOSE METER 132 mg/dL 70-110 H TESTED AT [place] [address] ([facility]) (test code = [facility] 1538) [address] POCT-GLUCOSE [id number] 08:49:00 Test Item Value Reference Range Interpretation Comments POC-GLUCOSE METER 131 mg/dL 70-110 H TESTED AT [facility] 6720 (BEAKER) (test code = [place] 1538) [address] [id number] 04:20:00 Test Item Value Reference Range Interpretation Comments MAGNESIUM (BEAKER) (test code = 1.7 mg/dL 1.6-2.6 627) BASIC METABOLIC [id number] 04:20:00 Test Item Value Reference Range Interpretation Comments SODIUM (BEAKER) 141 meq/L 136-145 (test code = 381) POTASSIUM (BEAKER) 3.4 meq/L 3.5-5.1 L (test code = 379) CHLORIDE (BEAKER) 103 meq/L 98-107 (test code = 382) CO2 (BEAKER) (test 28 meq/L 22-29 code = 355) BLOOD UREA NITROGEN 17 mg/dL 7-21 (BEAKER) (test code = 354) CREATININE (BEAKER) 1.76 mg/dL 0.57-1.25 H (test code = 358) GLUCOSE RANDOM 111 mg/dL 70-105 H (BEAKER) (test code = 652) CALCIUM (BEAKER) 8.9 mg/dL 8.4-10.2 (test code = 697) EGFR (BEAKER) (test 40 mL/min/1.73 ESTIMA KIMBER GFR IS code = 1092) sq m NOT ACCURATE CREATININE CLEARANCE IN PREDICTING GLOMERULAR FILTRATION RATE . ESTIMATED GFR I S NOT APPLICABLE FOR DIALYSIS PATIEN TS. HEPATIC FUNCTION [id number] 04:20:00 Test Item Value Reference Range Interpretation Comments TOTAL PROTEIN (BEAKER) (test code = 5.7 gm/dL 6.0-8.3 L 770) ALBUMIN (BEAKER) (test code = 1145) 3.1 g/dL 3.5-5.0 L BILIRUBIN TOTAL (BEAKER) (test code 1.6 mg/dL 0.2-1.2 H = 377) BILIRUBIN DIRECT (BEAKER) (test 1.0 mg/dL 0.1-0.5 H code = 706) ALKALINE PHOSPHATASE (BEAKER) (test 134 U/L 40-150 code = 346) AST (SGOT) (BEAKER) (test code = 44 U/L 5-34 H 353) ALT (SGPT) (BEAKER) (test code = 30 U/L 6-55 347) CBC W/PLT COUNT & AUTO [id number] 04:16:00 Test Item Value Reference Range Interpretation Comments WHITE BLOOD CELL COUNT (BEAKER) 12.3 K/ L 3.5-10.5 H (test code = 775) RED BLOOD CELL COUNT (BEAKER) 2.97 M/ L 4.63-6.08 L (test code = 761) HEMOGLOBIN (BEAKER) (test code = 9.0 GM/DL 13.7-17.5 L 410) HEMATOCRIT (BEAKER) (test code = 28.6 % 40.1-51.0 L 411) MEAN CORPUSCULAR VOLUME (BEAKER) 96.3 fL 79.0-92.2 H (test code = 753) MEAN CORPUSCULAR HEMOGLOBIN 30.3 pg 25.7-32.2 (BEAKER) (test code = 751) MEAN CORPUSCULAR HEMOGLOBIN CONC 31.5 GM/DL 32.3-36.5 L (BEAKER) (test code = 752) RED CELL DISTRIBUTION WIDTH 16.2 % 11.6-14.4 H (BEAKER) (test code = 412) PLATELET COUNT (BEAKER) (test 293 K/CU MM 150-450 code = 756) MEAN PLATELET VOLUME (BEAKER) 9.7 fL 9.4-12.4 (test code = 754) NUCLEATED RED BLOOD CELLS 0 /100 WBC 0-0 (BEAKER) (test code = 413) NEUTROPHILS RELATIVE PERCENT 73 % (BEAKER) (test code = 429) LYMPHOCYTES RELATIVE PERCENT 11 % (BEAKER) (test code = 430) MONOCYTES RELATIVE PERCENT 11 % (BEAKER) (test code = 431) EOSINOPHILS RELATIVE PERCENT 4 % (BEAKER) (test code = 432) BASOPHILS RELATIVE PERCENT 0 % (BEAKER) (test code = 437) NEUTROPHILS ABSOLUTE COUNT 8.96 K/ L 1.78-5.38 H (BEAKER) (test code = 670) LYMPHOCYTES ABSOLUTE COUNT 1.36 K/ L 1.32-3.57 (BEAKER) (test code = 414) MONOCYTES ABSOLUTE COUNT (BEAKER) 1.31 K/ L 0.30-0.82 H (test code = 415) EOSINOPHILS ABSOLUTE COUNT 0.51 K/ L 0.04-0.54 (BEAKER) (test code = 416) BASOPHILS ABSOLUTE COUNT (BEAKER) 0.05 K/ L 0.01-0.08 (test code = 417) IMMATURE GRANULOCYTES-RELATIVE 1 % 0-1 PERCENT (BEAKER) (test code = 2801) [id number] 04:06:00 Test Item Value Reference Range Interpretation Comments D-DIMER QUANTITATIVE (BEAKER) 2.14 MG/L FEU <0.50 H (test code = 671) Intended Use: The D-Dimer Assay can be used to aid in the diagnosis of Deep Vein Thrombosis (DVT) and Pulmonary Embolism Disease (PED).In patients with low pre- test probability, various studies concerning STA Liatest D-dimer test have reported that with a cutoff value of 0.50 MG/L FEU, the Negative Predictive Value (NPV) regarding the exclusion of thrombosis is within 95-100% range. [id number] 04:04:00 Test Item Value Reference Range Interpretation Comments FIBRINOGEN LEVEL (BEAKER) (test 426 mg/dl 225-434 code = 658) [id number] 04:04:00 Test Item Value Reference Range Interpretation Comments PROTIME (BEAKER) (test code = 15.0 seconds 11.7-14.7 H 759) INR (BEAKER) (test code = 370) 1.2 <=5.9 PARTIAL THROMBOPLASTIN TIME 31.7 seconds 22.5-36.0 (BEAKER) (test code = 760) RECOMMENDED COUMADIN/WARFARIN INR THERAPY RANGESSTANDARD DOSE: 2.0 - 3.0 Includes: PROPHYLAXIS forvenous thrombosis, systemic embolization; TREATMENT for venous thrombosis and/or pulmonary embolus.HIGH RISK: Target INR is 2.5-3.5 for patients with mechanical heart valves.PLATELET [id number] 03:59:00 Test Item Value Reference Range Interpretation Comments PLATELET COUNT (BEAKER) (test 293 K/CU MM 150-450 code = 756) HEMOGLOBIN AND [id number] 03:59:00 Test Item Value Reference Range Interpretation Comments HEMOGLOBIN (BEAKER) (test code = 9.0 GM/DL 13.7-17.5 L 410) HEMATOCRIT (BEAKER) (test code = 28.6 % 40.1-51.0 L 411) POCT-GLUCOSE [id number] 22:54:00 Test Item Value Reference Range Interpretation Comments POC-GLUCOSE METER 169 mg/dL 70-110 H TESTED AT [facility] [address] (BEAKER) (test code = [place] 1538) [id number] POCT-GLUCOSE [id number] 17:50:00 Test Item Value Reference Range Interpretation Comments POC-GLUCOSE METER 162 mg/dL 70-110 H TESTED AT [facility] [address] (BEAKER) (test code = [place] 1538) [id number] HEMOGLOBIN AND [id number] 12:54:00 Test Item Value Reference Range Interpretation Comments HEMOGLOBIN (BEAKER) (test code = 8.9 GM/DL 13.7-17.5 L 410) HEMATOCRIT (BEAKER) (test code = 28.0 % 40.1-51.0 L 411) [id number] 06:09:00 Test Item Value Reference Range Interpretation Comments MAGNESIUM (BEAKER) (test code = 1.4 mg/dL 1.6-2.6 L 627) BASIC METABOLIC [id number] 06:09:00 Test Item Value Reference Range Interpretation Comments SODIUM (BEAKER) 141 meq/L 136-145 (test code = 381) POTASSIUM (BEAKER) 3.3 meq/L 3.5-5.1 L (test code = 379) CHLORIDE (BEAKER) 103 meq/L 98-107 (test code = 382) CO2 (BEAKER) (test 31 meq/L 22-29 H code = 355) BLOOD UREA NITROGEN 16 mg/dL 7-21 (BEAKER) (test code = 354) CREATININE (BEAKER) 1.65 mg/dL 0.57-1.25 H (test code = 358) GLUCOSE RANDOM 155 mg/dL 70-105 H (BEAKER) (test code = 652) CALCIUM (BEAKER) 8.3 mg/dL 8.4-10.2 L (test code = 697) EGFR (BEAKER) (test 43 mL/min/1.73 ESTIMA KIMBER GFR IS code = 1092) sq m NOT ACCURATE CREATININE CLEARANCE IN PREDICTING GLOMERULAR FILTRATION RATE . ESTIMATED GFR I S NOT APPLICABLE FOR DIALYSIS PATIEN TS. HEPATIC FUNCTION [id number] 06:09:00 Test Item Value Reference Range Interpretation Comments TOTAL PROTEIN (BEAKER) (test code = 4.9 gm/dL 6.0-8.3 L 770) ALBUMIN (BEAKER) (test code = 1145) 2.8 g/dL 3.5-5.0 L BILIRUBIN TOTAL (BEAKER) (test code 1.2 mg/dL 0.2-1.2 = 377) BILIRUBIN DIRECT (BEAKER) (test 0.9 mg/dL 0.1-0.5 H code = 706) ALKALINE PHOSPHATASE (BEAKER) (test 130 U/L 40-150 code = 346) AST (SGOT) (BEAKER) (test code = 42 U/L 5-34 H 353) ALT (SGPT) (BEAKER) (test code = 26 U/L 6-55 347) PROTHROMBIN [id number] 06:03:00 Test Item Value Reference Range Interpretation Comments PROTIME (BEAKER) (test code = 15.8 seconds 11.7-14.7 H 759) INR (BEAKER) (test code = 370) 1.3 <=5.9 RECOMMENDED COUMADIN/WARFARIN INR THERAPY RANGESSTANDARD DOSE: 2.0 - 3.0 Includes: PROPHYLAXIS forvenous thrombosis, systemic embolization; TREATMENT for venous thrombosis and/or pulmonary embolus.HIGH RISK: Target INR is 2.5-3.5 for patients with mechanical heart valves.CBC W/PLT COUNT & AUTO DIFFERENTIAL 2018-07-21 05:43:00 Test Item Value Reference Range Interpretation Comments WHITE BLOOD CELL COUNT (BEAKER) 11.7 K/ L 3.5-10.5 H (test code = 775) RED BLOOD CELL COUNT (BEAKER) 2.61 M/ L 4.63-6.08 L (test code = 761) HEMOGLOBIN (BEAKER) (test code = 7.8 GM/DL 13.7-17.5 L 410) HEMATOCRIT (BEAKER) (test code = 24.8 % 40.1-51.0 L 411) MEAN CORPUSCULAR VOLUME (BEAKER) 95.0 fL 79.0-92.2 H (test code = 753) MEAN CORPUSCULAR HEMOGLOBIN 29.9 pg 25.7-32.2 (BEAKER) (test code = 751) MEAN CORPUSCULAR HEMOGLOBIN CONC 31.5 GM/DL 32.3-36.5 L (BEAKER) (test code = 752) RED CELL DISTRIBUTION WIDTH 16.3 % 11.6-14.4 H (BEAKER) (test code = 412) PLATELET COUNT (BEAKER) (test 281 K/CU MM 150-450 code = 756) MEAN PLATELET VOLUME (BEAKER) 9.8 fL 9.4-12.4 (test code = 754) NUCLEATED RED BLOOD CELLS 0 /100 WBC 0-0 (BEAKER) (test code = 413) NEUTROPHILS RELATIVE PERCENT 71 % (BEAKER) (test code = 429) LYMPHOCYTES RELATIVE PERCENT 15 % (BEAKER) (test code = 430) MONOCYTES RELATIVE PERCENT 10 % (BEAKER) (test code = 431) EOSINOPHILS RELATIVE PERCENT 4 % (BEAKER) (test code = 432) BASOPHILS RELATIVE PERCENT 0 % (BEAKER) (test code = 437) NEUTROPHILS ABSOLUTE COUNT 8.28 K/ L 1.78-5.38 H (BEAKER) (test code = 670) LYMPHOCYTES ABSOLUTE COUNT 1.79 K/ L 1.32-3.57 (BEAKER) (test code = 414) MONOCYTES ABSOLUTE COUNT (BEAKER) 1.13 K/ L 0.30-0.82 H (test code = 415) EOSINOPHILS ABSOLUTE COUNT 0.41 K/ L 0.04-0.54 (BEAKER) (test code = 416) BASOPHILS ABSOLUTE COUNT (BEAKER) 0.04 K/ L 0.01-0.08 (test code = 417) IMMATURE GRANULOCYTES-RELATIVE 1 % 0-1 PERCENT (BEAKER) (test code = 2801) HEMOGLOBIN AND [id number] 18:54:00 Test Item Value Reference Range Interpretation Comments HEMOGLOBIN (BEAKER) (test code = 9.9 GM/DL 13.7-17.5 L 410) HEMATOCRIT (BEAKER) (test code = 32.6 % 40.1-51.0 L 411) BLOOD [id number] 18:00:00 Test Item Value Reference Range Interpretation Comments CULTURE (BEAKER) (test No growth in 5 days code = 1095) HEMOGLOBIN AND [id number] 16:03:00 Test Item Value Reference Range Interpretation Comments HEMOGLOBIN (BEAKER) (test code = 9.4 GM/DL 13.7-17.5 L 410) HEMATOCRIT (BEAKER) (test code = 28.9 % 40.1-51.0 L 411) CBC W/PLT COUNT & AUTO [id number] 09:17:00 Test Item Value Reference Range Interpretation Comments WHITE BLOOD CELL COUNT (BEAKER) 11.4 K/ L 3.5-10.5 H (test code = 775) RED BLOOD CELL COUNT (BEAKER) 3.03 M/ L 4.63-6.08 L (test code = 761) HEMOGLOBIN (BEAKER) (test code = 9.3 GM/DL 13.7-17.5 L 410) HEMATOCRIT (BEAKER) (test code = 28.7 % 40.1-51.0 L 411) MEAN CORPUSCULAR VOLUME (BEAKER) 94.7 fL 79.0-92.2 H (test code = 753) MEAN CORPUSCULAR HEMOGLOBIN 30.7 pg 25.7-32.2 (BEAKER) (test code = 751) MEAN CORPUSCULAR HEMOGLOBIN CONC 32.4 GM/DL 32.3-36.5 (BEAKER) (test code = 752) RED CELL DISTRIBUTION WIDTH 16.1 % 11.6-14.4 H (BEAKER) (test code = 412) PLATELET COUNT (BEAKER) (test 244 K/CU MM 150-450 code = 756) MEAN PLATELET VOLUME (BEAKER) 10.1 fL 9.4-12.4 (test code = 754) NUCLEATED RED BLOOD CELLS 0 /100 WBC 0-0 (BEAKER) (test code = 413) NEUTROPHILS RELATIVE PERCENT 74 % (BEAKER) (test code = 429) LYMPHOCYTES RELATIVE PERCENT 11 % (BEAKER) (test code = 430) MONOCYTES RELATIVE PERCENT 9 % (BEAKER) (test code = 431) EOSINOPHILS RELATIVE PERCENT 4 % (BEAKER) (test code = 432) BASOPHILS RELATIVE PERCENT 0 % (BEAKER) (test code = 437) NEUTROPHILS ABSOLUTE COUNT 8.50 K/ L 1.78-5.38 H (BEAKER) (test code = 670) LYMPHOCYTES ABSOLUTE COUNT 1.27 K/ L 1.32-3.57 L (BEAKER) (test code = 414) MONOCYTES ABSOLUTE COUNT (BEAKER) 1.06 K/ L 0.30-0.82 H (test code = 415) EOSINOPHILS ABSOLUTE COUNT 0.46 K/ L 0.04-0.54 (BEAKER) (test code = 416) BASOPHILS ABSOLUTE COUNT (BEAKER) 0.05 K/ L 0.01-0.08 (test code = 417) IMMATURE GRANULOCYTES-RELATIVE 1 % 0-1 PERCENT (BEAKER) (test code = 2801) PROTHROMBIN [id number] 08:38:00 Test Item Value Reference Range Interpretation Comments PROTIME (BEAKER) (test code = 14.7 seconds 11.7-14.7 759) INR (BEAKER) (test code = 370) 1.2 <=5.9 RECOMMENDED COUMADIN/WARFARIN INR THERAPY RANGESSTANDARD DOSE: 2.0 - 3.0 Includes: PROPHYLAXIS forvenous thrombosis, systemic embolization; TREATMENT for venous thrombosis and/or pulmonary embolus.HIGH RISK: Target INR is 2.5-3.5 for patients with mechanical heart valves.BASIC METABOLIC [id number] 07:46:00 Test Item Value Reference Range Interpretation Comments SODIUM (BEAKER) 137 meq/L 136-145 (test code = 381) POTASSIUM (BEAKER) 4.1 meq/L 3.5-5.1 Specimen moderately (test code = 379) hemolyzed CHLORIDE (BEAKER) 103 meq/L 98-107 (test code = 382) CO2 (BEAKER) (test 22 meq/L 22-29 code = 355) BLOOD UREA NITROGEN 13 mg/dL 7-21 (BEAKER) (test code = 354) CREATININE (BEAKER) 1.56 mg/dL 0.57-1.25 H Specimen moderately (test code = 358) hemolyzed GLUCOSE RANDOM 114 mg/dL 70-105 H (BEAKER) (test code = 652) CALCIUM (BEAKER) 9.1 mg/dL 8.4-10.2 (test code = 697) EGFR (BEAKER) (test 46 mL/min/1.73 ESTIMA KIMBER GFR IS code = 1092) sq m NOT ACCURATE CREATININE CLEARANCE IN PREDICTING GLOMERULAR FILTRATION RATE . ESTIMATED GFR I S NOT APPLICABLE FOR DIALYSIS PATIEN TS. PROTHROMBIN [id number] 06:45:00 Test Item Value Reference Range Interpretation Comments PROTIME (BEAKER) (test code = 14.5 seconds 11.7-14.7 759) INR (BEAKER) (test code = 370) 1.1 <=5.9 RECOMMENDED COUMADIN/WARFARIN INR THERAPY RANGESSTANDARD DOSE: 2.0 - 3.0 Includes: PROPHYLAXIS forvenous thrombosis, systemic embolization; TREATMENT for venous thrombosis and/or pulmonary embolus.HIGH RISK: Target INR is 2.5-3.5 for patients with mechanical heart valves.[id number] 05:11:00 Test Item Value Reference Range Interpretation Comments MAGNESIUM (BEAKER) 1.8 mg/dL 1.6-2.6 Specimen moderately (test code = 627) hemolyzed HEPATIC FUNCTION [id number] 05:11:00 Test Item Value Reference Range Interpretation Comments TOTAL PROTEIN (BEAKER) 6.2 gm/dL 6.0-8.3 Speci men moderately (test code = 770) hemolyzed ALBUMIN (BEAKER) (test 3.1 g/dL 3.5-5.0 L Speci men moderately code = 1145) hemolyzed BILIRUBIN TOTAL 2.0 mg/dL 0.2-1.2 H Specimen mod erately (BEAKER) (test code = hemoly zed 377) BILIRUBIN DIRECT 0.8 mg/dL 0.1-0.5 H Specimen mo derately (BEAKER) (test code = hemoly zed 706) ALKALINE PHOSPHATASE 155 U/L 40-150 H (BEAKER) (test code = 346) AST (SGOT) (BEAKER) 54 U/L 5-34 H Specimen moderately (test code = 353) hemolyzed ALT (SGPT) (BEAKER) 29 U/L 6-55 Specimen moderately (test code = 347) hemolyzed [id number] 06:06:00 Test Item Value Reference Range Interpretation Comments MAGNESIUM (BEAKER) (test code = 1.6 mg/dL 1.6-2.6 627) BASIC METABOLIC [id number] 06:06:00 Test Item Value Reference Range Interpretation Comments SODIUM (BEAKER) 141 meq/L 136-145 (test code = 381) POTASSIUM (BEAKER) 3.6 meq/L 3.5-5.1 (test code = 379) CHLORIDE (BEAKER) 105 meq/L 98-107 (test code = 382) CO2 (BEAKER) (test 27 meq/L 22-29 code = 355) BLOOD UREA NITROGEN 13 mg/dL 7-21 (BEAKER) (test code = 354) CREATININE (BEAKER) 1.39 mg/dL 0.57-1.25 H (test code = 358) GLUCOSE RANDOM 128 mg/dL 70-105 H (BEAKER) (test code = 652) CALCIUM (BEAKER) 8.4 mg/dL 8.4-10.2 (test code = 697) EGFR (BEAKER) (test 53 mL/min/1.73 ESTIMA KIMBER GFR IS code = 1092) sq m NOT ACCURATE CREATININE CLEARANCE IN PREDICTING GLOMERULAR FILTRATION RATE . ESTIMATED GFR I S NOT APPLICABLE FOR DIALYSIS PATIEN TS. HEPATIC FUNCTION [id number] 06:06:00 Test Item Value Reference Range Interpretation Comments TOTAL PROTEIN (BEAKER) (test code = 4.9 gm/dL 6.0-8.3 L 770) ALBUMIN (BEAKER) (test code = 1145) 2.8 g/dL 3.5-5.0 L BILIRUBIN TOTAL (BEAKER) (test code 1.7 mg/dL 0.2-1.2 H = 377) BILIRUBIN DIRECT (BEAKER) (test 1.2 mg/dL 0.1-0.5 H code = 706) ALKALINE PHOSPHATASE (BEAKER) (test 122 U/L 40-150 code = 346) AST (SGOT) (BEAKER) (test code = 33 U/L 5-34 353) ALT (SGPT) (BEAKER) (test code = 22 U/L 6-55 347) PROTHROMBIN [id number] 05:51:00 Test Item Value Reference Range Interpretation Comments PROTIME (BEAKER) (test code = 15.8 seconds 11.7-14.7 H 759) INR (BEAKER) (test code = 370) 1.3 <=5.9 RECOMMENDED COUMADIN/WARFARIN INR THERAPY RANGESSTANDARD DOSE: 2.0 - 3.0 Includes: PROPHYLAXIS forvenous thrombosis, systemic embolization; TREATMENT for venous thrombosis and/or pulmonary embolus.HIGH RISK: Target INR is 2.5-3.5 for patients with mechanical heart valves.CBC W/PLT COUNT & AUTO DIFFERENTIAL 2018-07-19 05:48:00 Test Item Value Reference Range Interpretation Comments WHITE BLOOD CELL COUNT (BEAKER) 9.3 K/ L 3.5-10.5 (test code = 775) RED BLOOD CELL COUNT (BEAKER) 2.80 M/ L 4.63-6.08 L (test code = 761) HEMOGLOBIN (BEAKER) (test code = 8.6 GM/DL 13.7-17.5 L 410) HEMATOCRIT (BEAKER) (test code = 26.5 % 40.1-51.0 L 411) MEAN CORPUSCULAR VOLUME (BEAKER) 94.6 fL 79.0-92.2 H (test code = 753) MEAN CORPUSCULAR HEMOGLOBIN 30.7 pg 25.7-32.2 (BEAKER) (test code = 751) MEAN CORPUSCULAR HEMOGLOBIN CONC 32.5 GM/DL 32.3-36.5 (BEAKER) (test code = 752) RED CELL DISTRIBUTION WIDTH 16.0 % 11.6-14.4 H (BEAKER) (test code = 412) PLATELET COUNT (BEAKER) (test 224 K/CU MM 150-450 code = 756) MEAN PLATELET VOLUME (BEAKER) 10.1 fL 9.4-12.4 (test code = 754) NUCLEATED RED BLOOD CELLS 0 /100 WBC 0-0 (BEAKER) (test code = 413) NEUTROPHILS RELATIVE PERCENT 66 % (BEAKER) (test code = 429) LYMPHOCYTES RELATIVE PERCENT 16 % (BEAKER) (test code = 430) MONOCYTES RELATIVE PERCENT 9 % (BEAKER) (test code = 431) EOSINOPHILS RELATIVE PERCENT 8 % (BEAKER) (test code = 432) BASOPHILS RELATIVE PERCENT 0 % (BEAKER) (test code = 437) NEUTROPHILS ABSOLUTE COUNT 6.14 K/ L 1.78-5.38 H (BEAKER) (test code = 670) LYMPHOCYTES ABSOLUTE COUNT 1.49 K/ L 1.32-3.57 (BEAKER) (test code = 414) MONOCYTES ABSOLUTE COUNT (BEAKER) 0.79 K/ L 0.30-0.82 (test code = 415) EOSINOPHILS ABSOLUTE COUNT 0.76 K/ L 0.04-0.54 H (BEAKER) (test code = 416) BASOPHILS ABSOLUTE COUNT (BEAKER) 0.03 K/ L 0.01-0.08 (test code = 417) IMMATURE GRANULOCYTES-RELATIVE 1 % 0-1 PERCENT (BEAKER) (test code = 2801) HEMOGLOBIN AND [id number] 00:16:00 Test Item Value Reference Range Interpretation Comments HEMOGLOBIN (BEAKER) (test code = 8.8 GM/DL 13.7-17.5 L 410) HEMATOCRIT (BEAKER) (test code = 27.1 % 40.1-51.0 L 411) HEMOGLOBIN AND [id number] 17:32:00 Test Item Value Reference Range Interpretation Comments HEMOGLOBIN (BEAKER) (test code = 8.8 GM/DL 13.7-17.5 L 410) HEMATOCRIT (BEAKER) (test code = 27.5 % 40.1-51.0 L 411) RAD, CHEST, 1 VIEW, NON [id number] 10:38:00Reason for exam:->HFShould this be performed at [...] technique with sternotomy wires. Signed: Gina Spears MDRort Verified Date/Time: 07/18/2018 10:38:16 Reading Location: [facility] Radiology Reading Room Electronically signed by: GINA SPEARS M.D. on07/18/2018 10:38 AMHEMOGLOBIN AND [id number] 10:12:00 Test Item Value Reference Range Interpretation Comments HEMOGLOBIN (BEAKER) (test code = 7.8 GM/DL 13.7-17.5 L 410) HEMATOCRIT (BEAKER) (test code = 24.5 % 40.1-51.0 L 411) [id number] 04:04:00 Test Item Value Reference Range Interpretation Comments MAGNESIUM (BEAKER) (test code = 1.9 mg/dL 1.6-2.6 627) BASIC METABOLIC [id number] 04:04:00 Test Item Value Reference Range Interpretation Comments SODIUM (BEAKER) 141 meq/L 136-145 (test code = 381) POTASSIUM (BEAKER) 3.6 meq/L 3.5-5.1 (test code = 379) CHLORIDE (BEAKER) 109 meq/L 98-107 H (test code = 382) CO2 (BEAKER) (test 26 meq/L 22-29 code = 355) BLOOD UREA NITROGEN 15 mg/dL 7-21 (BEAKER) (test code = 354) CREATININE (BEAKER) 1.44 mg/dL 0.57-1.25 H (test code = 358) GLUCOSE RANDOM 120 mg/dL 70-105 H (BEAKER) (test code = 652) CALCIUM (BEAKER) 8.2 mg/dL 8.4-10.2 L (test code = 697) EGFR (BEAKER) (test 51 mL/min/1.73 ESTIMA KIMBER GFR IS code = 1092) sq m NOT ACCURATE CREATININE CLEARANCE IN PREDICTING GLOMERULAR FILTRATION RATE . ESTIMATED GFR I S NOT APPLICABLE FOR DIALYSIS PATIEN TS. HEPATIC FUNCTION [id number] 04:04:00 Test Item Value Reference Range Interpretation Comments TOTAL PROTEIN (BEAKER) (test code = 5.0 gm/dL 6.0-8.3 L 770) ALBUMIN (BEAKER) (test code = 1145) 2.8 g/dL 3.5-5.0 L BILIRUBIN TOTAL (BEAKER) (test code 1.8 mg/dL 0.2-1.2 H = 377) BILIRUBIN DIRECT (BEAKER) (test 1.4 mg/dL 0.1-0.5 H code = 706) ALKALINE PHOSPHATASE (BEAKER) (test 125 U/L 40-150 code = 346) AST (SGOT) (BEAKER) (test code = 31 U/L 5-34 353) ALT (SGPT) (BEAKER) (test code = 22 U/L 6-55 347) PROTHROMBIN [id number] 04:00:00 Test Item Value Reference Range Interpretation Comments PROTIME (BEAKER) (test code = 15.5 seconds 11.7-14.7 H 759) INR (BEAKER) (test code = 370) 1.2 <=5.9 RECOMMENDED COUMADIN/WARFARIN INR THERAPY RANGESSTANDARD DOSE: 2.0 - 3.0 Includes: PROPHYLAXIS forvenous thrombosis, systemic embolization; TREATMENT for venous thrombosis and/or pulmonary embolus.HIGH RISK: Target INR is 2.5-3.5 for patients with mechanical heart valves.CBC W/PLT COUNT & AUTO DIFFERENTIAL 2018-07-18 03:46:00 Test Item Value Reference Range Interpretation Comments WHITE BLOOD CELL COUNT (BEAKER) 11.1 K/ L 3.5-10.5 H (test code = 775) RED BLOOD CELL COUNT (BEAKER) 2.92 M/ L 4.63-6.08 L (test code = 761) HEMOGLOBIN (BEAKER) (test code = 8.8 GM/DL 13.7-17.5 L 410) HEMATOCRIT (BEAKER) (test code = 27.3 % 40.1-51.0 L 411) MEAN CORPUSCULAR VOLUME (BEAKER) 93.5 fL 79.0-92.2 H (test code = 753) MEAN CORPUSCULAR HEMOGLOBIN 30.1 pg 25.7-32.2 (BEAKER) (test code = 751) MEAN CORPUSCULAR HEMOGLOBIN CONC 32.2 GM/DL 32.3-36.5 L (BEAKER) (test code = 752) RED CELL DISTRIBUTION WIDTH 15.5 % 11.6-14.4 H (BEAKER) (test code = 412) PLATELET COUNT (BEAKER) (test 186 K/CU MM 150-450 code = 756) MEAN PLATELET VOLUME (BEAKER) 9.7 fL 9.4-12.4 (test code = 754) NUCLEATED RED BLOOD CELLS 0 /100 WBC 0-0 (BEAKER) (test code = 413) NEUTROPHILS RELATIVE PERCENT 68 % (BEAKER) (test code = 429) LYMPHOCYTES RELATIVE PERCENT 14 % (BEAKER) (test code = 430) MONOCYTES RELATIVE PERCENT 11 % (BEAKER) (test code = 431) EOSINOPHILS RELATIVE PERCENT 6 % (BEAKER) (test code = 432) BASOPHILS RELATIVE PERCENT 0 % (BEAKER) (test code = 437) NEUTROPHILS ABSOLUTE COUNT 7.55 K/ L 1.78-5.38 H (BEAKER) (test code = 670) LYMPHOCYTES ABSOLUTE COUNT 1.54 K/ L 1.32-3.57 (BEAKER) (test code = 414) MONOCYTES ABSOLUTE COUNT (BEAKER) 1.21 K/ L 0.30-0.82 H (test code = 415) EOSINOPHILS ABSOLUTE COUNT 0.64 K/ L 0.04-0.54 H (BEAKER) (test code = 416) BASOPHILS ABSOLUTE COUNT (BEAKER) 0.01 K/ L 0.01-0.08 (test code = 417) IMMATURE GRANULOCYTES-RELATIVE 1 % 0-1 PERCENT (BEAKER) (test code = 2801) HEMOGLOBIN AND [id number] 00:32:00 Test Item Value Reference Range Interpretation Comments HEMOGLOBIN (BEAKER) (test code = 9.0 GM/DL 13.7-17.5 L 410) HEMATOCRIT (BEAKER) (test code = 27.8 % 40.1-51.0 L 411) [id number] 18:36:00 Test Item Value Reference Range Interpretation Comments MAGNESIUM (BEAKER) 2.2 mg/dL 1.6-2.6 Specimen slightly (test code = 627) hemolyzed [id number] 18:36:00 Test Item Value Reference Range Interpretation Comments POTASSIUM (BEAKER) 4.3 meq/L 3.5-5.1 Specimen slightly (test code = 379) hemolyzed FL, [id number] 18:08:00INTRA OP IMAGINGReason for exam:->abnormal imaging FINAL REPORT ERCP 1 view 07/17/2018 6:06 PM CLINICAL HISTORY: Instrument localization COMPARISON: None available IMPRESSION: Please correlate imaging report findings with the procedure note prepared by Dr. Santacruz, as an intra-procedure imaging consultation was not requested. Reported fluoroscopy time: 233.8 seconds. Signed: Farhad Meza Verified Date/Time: 07/17/2018 18:08:25 Reading Location: [facility] Radiology Reading Room HEMOGLOBIN AND [id number] 18:03:00 Test Item Value Reference Range Interpretation Comments HEMOGLOBIN (BEAKER) (test code = 9.2 GM/DL 13.7-17.5 L 410) HEMATOCRIT (BEAKER) (test code = 28.1 % 40.1-51.0 L 411) [id number] 09:33:00 Test Item Value Reference Range Interpretation Comments POTASSIUM (BEAKER) (test code = 3.4 meq/L 3.5-5.1 L 379) [id number] 09:33:00 Test Item Value Reference Range Interpretation Comments MAGNESIUM (BEAKER) (test code = 2.0 mg/dL 1.6-2.6 627) HEMOGLOBIN AND [id number] 09:20:00 Test Item Value Reference Range Interpretation Comments HEMOGLOBIN (BEAKER) (test code = 8.9 GM/DL 13.7-17.5 L 410) HEMATOCRIT (BEAKER) (test code = 26.9 % 40.1-51.0 L 411) PROTHROMBIN [id number] 06:45:00 Test Item Value Reference Range Interpretation Comments PROTIME (BEAKER) (test code = 16.9 seconds 11.7-14.7 H 759) INR (BEAKER) (test code = 370) 1.4 <=5.9 RECOMMENDED COUMADIN/WARFARIN INR THERAPY RANGESSTANDARD DOSE: 2.0 - 3.0 Includes: PROPHYLAXIS forvenous thrombosis, systemic embolization; TREATMENT for venous thrombosis and/or pulmonary embolus.HIGH RISK: Target INR is 2.5-3.5 for patients with mechanical heart valves.BASIC METABOLIC [id number] 03:44:00 Test Item Value Reference Range Interpretation Comments SODIUM (BEAKER) 141 meq/L 136-145 (test code = 381) POTASSIUM (BEAKER) 3.1 meq/L 3.5-5.1 L (test code = 379) CHLORIDE (BEAKER) 106 meq/L 98-107 (test code = 382) CO2 (BEAKER) (test 29 meq/L 22-29 code = 355) BLOOD UREA NITROGEN 21 mg/dL 7-21 (BEAKER) (test code = 354) CREATININE (BEAKER) 1.78 mg/dL 0.57-1.25 H (test code = 358) GLUCOSE RANDOM 176 mg/dL 70-105 H (BEAKER) (test code = 652) CALCIUM (BEAKER) 7.8 mg/dL 8.4-10.2 L (test code = 697) EGFR (BEAKER) (test 40 mL/min/1.73 ESTIMA KIMBER GFR IS code = 1092) sq m NOT ACCURATE CREATININE CLEARANCE IN PREDICTING GLOMERULAR FILTRATION RATE . ESTIMATED GFR I S NOT APPLICABLE FOR DIALYSIS PATIEN TS. [id number] 03:36:00 Test Item Value Reference Range Interpretation Comments MAGNESIUM (BEAKER) (test code = 2.3 mg/dL 1.6-2.6 627) HEPATIC FUNCTION [id number] 03:36:00 Test Item Value Reference Range Interpretation Comments TOTAL PROTEIN (BEAKER) (test code = 4.5 gm/dL 6.0-8.3 L 770) ALBUMIN (BEAKER) (test code = 1145) 2.6 g/dL 3.5-5.0 L BILIRUBIN TOTAL (BEAKER) (test code 1.7 mg/dL 0.2-1.2 H = 377) BILIRUBIN DIRECT (BEAKER) (test 1.3 mg/dL 0.1-0.5 H code = 706) ALKALINE PHOSPHATASE (BEAKER) (test 107 U/L 40-150 code = 346) AST (SGOT) (BEAKER) (test code = 33 U/L 5-34 353) ALT (SGPT) (BEAKER) (test code = 21 U/L 6-55 347) CBC W/PLT COUNT & AUTO [id number] 03:08:00 Test Item Value Reference Range Interpretation Comments WHITE BLOOD CELL COUNT (BEAKER) 10.5 K/ L 3.5-10.5 (test code = 775) RED BLOOD CELL COUNT (BEAKER) 2.80 M/ L 4.63-6.08 L (test code = 761) HEMOGLOBIN (BEAKER) (test code = 8.4 GM/DL 13.7-17.5 L 410) HEMATOCRIT (BEAKER) (test code = 25.5 % 40.1-51.0 L 411) MEAN CORPUSCULAR VOLUME (BEAKER) 91.1 fL 79.0-92.2 (test code = 753) MEAN CORPUSCULAR HEMOGLOBIN 30.0 pg 25.7-32.2 (BEAKER) (test code = 751) MEAN CORPUSCULAR HEMOGLOBIN CONC 32.9 GM/DL 32.3-36.5 (BEAKER) (test code = 752) RED CELL DISTRIBUTION WIDTH 15.1 % 11.6-14.4 H (BEAKER) (test code = 412) PLATELET COUNT (BEAKER) (test 153 K/CU MM 150-450 code = 756) MEAN PLATELET VOLUME (BEAKER) 9.7 fL 9.4-12.4 (test code = 754) NUCLEATED RED BLOOD CELLS 0 /100 WBC 0-0 (BEAKER) (test code = 413) NEUTROPHILS RELATIVE PERCENT 69 % (BEAKER) (test code = 429) LYMPHOCYTES RELATIVE PERCENT 12 % (BEAKER) (test code = 430) MONOCYTES RELATIVE PERCENT 11 % (BEAKER) (test code = 431) EOSINOPHILS RELATIVE PERCENT 7 % (BEAKER) (test code = 432) BASOPHILS RELATIVE PERCENT 0 % (BEAKER) (test code = 437) NEUTROPHILS ABSOLUTE COUNT 7.24 K/ L 1.78-5.38 H (BEAKER) (test code = 670) LYMPHOCYTES ABSOLUTE COUNT 1.30 K/ L 1.32-3.57 L (BEAKER) (test code = 414) MONOCYTES ABSOLUTE COUNT (BEAKER) 1.14 K/ L 0.30-0.82 H (test code = 415) EOSINOPHILS ABSOLUTE COUNT 0.69 K/ L 0.04-0.54 H (BEAKER) (test code = 416) BASOPHILS ABSOLUTE COUNT (BEAKER) 0.01 K/ L 0.01-0.08 (test code = 417) IMMATURE GRANULOCYTES-RELATIVE 1 % 0-1 PERCENT (BEAKER) (test code = 2801) HEMOGLOBIN AND [id number] 00:43:00 Test Item Value Reference Range Interpretation Comments HEMOGLOBIN (BEAKER) (test code = 9.2 GM/DL 13.7-17.5 L 410) HEMATOCRIT (BEAKER) (test code = 27.6 % 40.1-51.0 L 411) [id number] 20:56:00 Test Item Value Reference Range Interpretation Comments POTASSIUM (BEAKER) (test code = 3.0 meq/L 3.5-5.1 L 379) [id number] 20:56:00 Test Item Value Reference Range Interpretation Comments MAGNESIUM (BEAKER) (test code = 1.7 mg/dL 1.6-2.6 627) HEMOGLOBIN AND [id number] 17:08:00 Test Item Value Reference Range Interpretation Comments HEMOGLOBIN (BEAKER) (test code = 9.3 GM/DL 13.7-17.5 L 410) HEMATOCRIT (BEAKER) (test code = 28.2 % 40.1-51.0 L 411) [id number] 08:36:00 Test Item Value Reference Range Interpretation Comments PHOSPHORUS (BEAKER) (test code = 2.9 mg/dL 2.3-4.7 604) HEMOGLOBIN AND [id number] 08:18:00 Test Item Value Reference Range Interpretation Comments HEMOGLOBIN (BEAKER) (test code = 8.7 GM/DL 13.7-17.5 L 410) HEMATOCRIT (BEAKER) (test code = 25.7 % 40.1-51.0 L 411) BASIC METABOLIC [id number] 05:58:00 Test Item Value Reference Range Interpretation Comments SODIUM (BEAKER) 144 meq/L 136-145 (test code = 381) POTASSIUM (BEAKER) 3.3 meq/L 3.5-5.1 L (test code = 379) CHLORIDE (BEAKER) 112 meq/L 98-107 H (test code = 382) CO2 (BEAKER) (test 25 meq/L 22-29 code = 355) BLOOD UREA NITROGEN 25 mg/dL 7-21 H (BEAKER) (test code = 354) CREATININE (BEAKER) 1.88 mg/dL 0.57-1.25 H (test code = 358) GLUCOSE RANDOM 110 mg/dL 70-105 H (BEAKER) (test code = 652) CALCIUM (BEAKER) 7.9 mg/dL 8.4-10.2 L (test code = 697) EGFR (BEAKER) (test 37 mL/min/1.73 ESTIMA KIMBER GFR IS code = 1092) sq m NOT ACCURATE CREATININE CLEARANCE IN PREDICTING GLOMERULAR FILTRATION RATE . ESTIMATED GFR I S NOT APPLICABLE FOR DIALYSIS PATIEN TS. [id number] 04:58:00 Test Item Value Reference Range Interpretation Comments MAGNESIUM (BEAKER) (test code = 1.3 mg/dL 1.6-2.6 L 627) HEPATIC FUNCTION [id number] 04:58:00 Test Item Value Reference Range Interpretation Comments TOTAL PROTEIN (BEAKER) (test code = 3.7 gm/dL 6.0-8.3 L 770) ALBUMIN (BEAKER) (test code = 1145) 2.2 g/dL 3.5-5.0 L BILIRUBIN TOTAL (BEAKER) (test code 1.6 mg/dL 0.2-1.2 H = 377) BILIRUBIN DIRECT (BEAKER) (test 1.2 mg/dL 0.1-0.5 H code = 706) ALKALINE PHOSPHATASE (BEAKER) (test 81 U/L 40-150 code = 346) AST (SGOT) (BEAKER) (test code = 29 U/L 5-34 353) ALT (SGPT) (BEAKER) (test code = 20 U/L 6-55 347) [id number] 04:40:00 Test Item Value Reference Range Interpretation Comments D-DIMER QUANTITATIVE (BEAKER) 2.11 MG/L FEU <0.50 H (test code = 671) Intended Use: The D-Dimer Assay can be used to aid in the diagnosis of Deep Vein Thrombosis (DVT) and Pulmonary Embolism Disease (PED).In patients with low pre- test probability, various studies concerning STA Liatest D-dimer test have reported that with a cutoff value of 0.50 MG/L FEU, the Negative Predictive Value (NPV) regarding the exclusion of thrombosis is within 95-100% range. PROTHROMBIN [id number] 04:37:00 Test Item Value Reference Range Interpretation Comments PROTIME (BEAKER) (test code = 17.4 seconds 11.7-14.7 H 759) INR (BEAKER) (test code = 370) 1.4 <=5.9 RECOMMENDED COUMADIN/WARFARIN INR THERAPY RANGESSTANDARD DOSE: 2.0 - 3.0 Includes: PROPHYLAXIS forvenous thrombosis, systemic embolization; TREATMENT for venous thrombosis and/or pulmonary embolus.HIGH RISK: Target INR is 2.5-3.5 for patients with mechanical heart valves.CBC W/PLT COUNT & AUTO DIFFERENTIAL 2018-07-16 04:33:00 Test Item Value Reference Range Interpretation Comments WHITE BLOOD CELL COUNT (BEAKER) 13.1 K/ L 3.5-10.5 H (test code = 775) RED BLOOD CELL COUNT (BEAKER) 2.87 M/ L 4.63-6.08 L (test code = 761) HEMOGLOBIN (BEAKER) (test code = 8.6 GM/DL 13.7-17.5 L 410) HEMATOCRIT (BEAKER) (test code = 25.4 % 40.1-51.0 L 411) MEAN CORPUSCULAR VOLUME (BEAKER) 88.5 fL 79.0-92.2 (test code = 753) MEAN CORPUSCULAR HEMOGLOBIN 30.0 pg 25.7-32.2 (BEAKER) (test code = 751) MEAN CORPUSCULAR HEMOGLOBIN CONC 33.9 GM/DL 32.3-36.5 (BEAKER) (test code = 752) RED CELL DISTRIBUTION WIDTH 15.0 % 11.6-14.4 H (BEAKER) (test code = 412) PLATELET COUNT (BEAKER) (test 130 K/CU MM 150-450 L code = 756) MEAN PLATELET VOLUME (BEAKER) 10.7 fL 9.4-12.4 (test code = 754) NUCLEATED RED BLOOD CELLS 0 /100 WBC 0-0 (BEAKER) (test code = 413) NEUTROPHILS RELATIVE PERCENT 69 % (BEAKER) (test code = 429) LYMPHOCYTES RELATIVE PERCENT 14 % (BEAKER) (test code = 430) MONOCYTES RELATIVE PERCENT 7 % (BEAKER) (test code = 431) EOSINOPHILS RELATIVE PERCENT 7 % (BEAKER) (test code = 432) BASOPHILS RELATIVE PERCENT 0 % (BEAKER) (test code = 437) NEUTROPHILS ABSOLUTE COUNT 9.07 K/ L 1.78-5.38 H (BEAKER) (test code = 670) LYMPHOCYTES ABSOLUTE COUNT 1.80 K/ L 1.32-3.57 (BEAKER) (test code = 414) MONOCYTES ABSOLUTE COUNT (BEAKER) 0.94 K/ L 0.30-0.82 H (test code = 415) EOSINOPHILS ABSOLUTE COUNT 0.97 K/ L 0.04-0.54 H (BEAKER) (test code = 416) BASOPHILS ABSOLUTE COUNT (BEAKER) 0.02 K/ L 0.01-0.08 (test code = 417) IMMATURE GRANULOCYTES-RELATIVE 2 % 0-1 H PERCENT (BEAKER) (test code = 2801) CALCIUM, [id number] 04:29:00 Test Item Value Reference Range Interpretation Comments CALCIUM IONIZED (BEAKER) (test 1.13 mmol/L 1.12-1.27 code = 698) PH, BLOOD (BEAKER) (test code = 7.42 1810) HEMOGLOBIN AND [id number] 04:29:00 Test Item Value Reference Range Interpretation Comments HEMOGLOBIN (BEAKER) (test code = 8.6 GM/DL 13.7-17.5 L 410) HEMATOCRIT (BEAKER) (test code = 25.4 % 40.1-51.0 L 411) POCT-GLUCOSE [id number] 04:18:00 Test Item Value Reference Range Interpretation Comments POC-GLUCOSE METER 116 mg/dL 70-110 H TESTED AT [place] [address] (BEAKER) (test code = GENEVIEVE Bruce [place] 1538) [id number] HEMOGLOBIN AND [id number] 00:35:00 Test Item Value Reference Range Interpretation Comments HEMOGLOBIN (BEAKER) (test code = 8.7 GM/DL 13.7-17.5 L 410) HEMATOCRIT (BEAKER) (test code = 25.9 % 40.1-51.0 L 411) POCT-GLUCOSE [id number] 22:40:00 Test Item Value Reference Range Interpretation Comments POC-GLUCOSE METER 112 mg/dL 70-110 H TESTED AT [place] [address] (BEAKER) (test code = GENEVIEVE Bruce [facility] 1538) [id number] HEMOGLOBIN AND [id number] 19:57:00 Test Item Value Reference Range Interpretation Comments HEMOGLOBIN (BEAKER) (test code = 9.1 GM/DL 13.7-17.5 L 410) HEMATOCRIT (BEAKER) (test code = 26.2 % 40.1-51.0 L 411) POCT-GLUCOSE [id number] 17:38:00 Test Item Value Reference Range Interpretation Comments POC-GLUCOSE METER 151 mg/dL 70-110 H TESTED AT [place] [address] (BEAKER) (test code = GENEVIEVE Bruce [facility] 1538) [address] [id number] 17:13:00 Test Item Value Reference Range Interpretation Comments POTASSIUM (BEAKER) (test code = 3.7 meq/L 3.5-5.1 379) HEMOGLOBIN AND [id number] 16:43:00 Test Item Value Reference Range Interpretation Comments HEMOGLOBIN (BEAKER) (test code = 9.2 GM/DL 13.7-17.5 L 410) HEMATOCRIT (BEAKER) (test code = 26.8 % 40.1-51.0 L 411) CBC W/PLT COUNT & AUTO [id number] 13:38:00 Test Item Value Reference Range Interpretation Comments WHITE BLOOD CELL COUNT (BEAKER) 19.1 K/ L 3.5-10.5 H (test code = 775) RED BLOOD CELL COUNT (BEAKER) 3.10 M/ L 4.63-6.08 L (test code = 761) HEMOGLOBIN (BEAKER) (test code = 9.3 GM/DL 13.7-17.5 L 410) HEMATOCRIT (BEAKER) (test code = 27.6 % 40.1-51.0 L 411) MEAN CORPUSCULAR VOLUME (BEAKER) 89.0 fL 79.0-92.2 (test code = 753) MEAN CORPUSCULAR HEMOGLOBIN 30.0 pg 25.7-32.2 (BEAKER) (test code = 751) MEAN CORPUSCULAR HEMOGLOBIN CONC 33.7 GM/DL 32.3-36.5 (BEAKER) (test code = 752) RED CELL DISTRIBUTION WIDTH 13.9 % 11.6-14.4 (BEAKER) (test code = 412) PLATELET COUNT (BEAKER) (test 146 K/CU MM 150-450 L code = 756) MEAN PLATELET VOLUME (BEAKER) 11.1 fL 9.4-12.4 (test code = 754) NUCLEATED RED BLOOD CELLS 0 /100 WBC 0-0 (BEAKER) (test code = 413) (CELLAVISION MANUAL DIFF)2018-07-15 13:38:00 Test Item Value Reference Range Interpretation Comments NEUTROPHILS - REL 92 % (CELLAVISION)(BEAKER) (test code = 2816) LYMPHOCYTES - REL 2 % (CELLAVISION)(BEAKER) (test code = 2817) MONOCYTES - REL 5 % (CELLAVISION)(BEAKER) (test code = 2818) METAMYELOCYTES - REL 1 % 0-0 H (CELLAVISION)(BEAKER) (test code = 2821) BANDS - REL (CELLAVISION)(BEAKER) 1 % 0-10 (test code = 2826) NEUTROPHILS - ABS 17.57 K/ul 1.78-5.38 H (CELLAVISION)(BEAKER) (test code = 2830) LYMPHOCYTES - ABS 0.38 K/ul 1.32-3.57 L (CELLAVISION)(BEAKER) (test code = 2831) MONOCYTES - ABS 0.96 K/uL 0.30-0.82 H (CELLAVISION)(BEAKER) (test code = 2832) METAMYELOCYTES - ABS 0.19 K/uL 0.00-0.00 H (CELLAVISION)(BEAKER) (test code = 2836) BANDS - ABS (CELLAVISION)(BEAKER) 0.19 K/uL 0.00-0.80 (test code = 2840) TOTAL COUNTED (BEAKER) (test code 100 = 1351) WBC MORPHOLOGY (BEAKER) (test Normal code = 487) PLT MORPHOLOGY (BEAKER) (test Normal code = 486) ANISOCYTOSIS (BEAKER) (test code 2+ moderate = 961) MICROCYTES (BEAKER) (test code = 2+ moderate 965) POIKILOCYTES (BEAKER) (test code 1+ few = 966) ARTIFACT (CELLAVISION)(BEAKER) Present (test code = 3432) PLATELET CONCENTRATION Decreased (CELLAVISION)(BEAKER) (test code = 3438) Received comment: User comments: Slide comments:COMPREHENSIVE METABOLIC PANEL 2018-07-15 13:27:00 Test Item Value Reference Range Interpretation Comments TOTAL PROTEIN 3.8 gm/dL 6.0-8.3 L (BEAKER) (test code = 770) ALBUMIN (BEAKER) 2.2 g/dL 3.5-5.0 L (test code = 1145) ALKALINE PHOSPHATASE 100 U/L 40-150 (BEAKER) (test code = 346) BILIRUBIN TOTAL 2.5 mg/dL 0.2-1.2 H (BEAKER) (test code = 377) SODIUM (BEAKER) (test 141 meq/L 136-145 code = 381) POTASSIUM (BEAKER) 3.3 meq/L 3.5-5.1 L (test code = 379) CHLORIDE (BEAKER) 109 meq/L 98-107 H (test code = 382) CO2 (BEAKER) (test 25 meq/L 22-29 code = 355) BLOOD UREA NITROGEN 27 mg/dL 7-21 H (BEAKER) (test code = 354) CREATININE (BEAKER) 1.96 mg/dL 0.57-1.25 H (test code = 358) GLUCOSE RANDOM 164 mg/dL 70-105 H (BEAKER) (test code = 652) CALCIUM (BEAKER) 7.5 mg/dL 8.4-10.2 L (test code = 697) AST (SGOT) (BEAKER) 31 U/L 5-34 (test code = 353) ALT (SGPT) (BEAKER) 22 U/L 6-55 (test code = 347) EGFR (BEAKER) (test 36 mL/min/1.73 ESTIMA KIMBER GFR IS code = 1092) sq m NOT ACCURATE CREATININE CLEARANCE IN PREDICTING GLOMERULAR FILTRATION RATE . ESTIMATED GFR I S NOT APPLICABLE FOR DIALYSIS PATIEN TS. Specimen slightly ictericLACTIC ACID, ARTERIAL, WHOLE [id number] 13:21:00 Test Item Value Reference Range Interpretation Comments LACTATE BLOOD ARTERIAL (2) 0.8 mmol/L 0.5-2.2 (BEAKER) (test code = 2874) Effective 02/25/2016: Units/Reference Range ChangeNew: 0.5-2.2 mmol/L Previous: 5-20 mg/dLSpecimen slightly ictericCALCIUM, [id number] 13:06:00 Test Item Value Reference Range Interpretation Comments CALCIUM IONIZED (BEAKER) (test 1.07 mmol/L 1.12-1.27 L code = 698) PH, BLOOD (BEAKER) (test code = 7.44 1810) PLATELET [id number] 13:01:00 Test Item Value Reference Range Interpretation Comments PLATELET COUNT (BEAKER) (test 138 K/CU MM 150-450 L code = 756) HEMOGLOBIN AND [id number] 13:01:00 Test Item Value Reference Range Interpretation Comments HEMOGLOBIN (BEAKER) (test code = 9.4 GM/DL 13.7-17.5 L 410) HEMATOCRIT (BEAKER) (test code = 27.7 % 40.1-51.0 L 411) POCT-GLUCOSE [id number] 12:02:00 Test Item Value Reference Range Interpretation Comments POC-GLUCOSE METER 175 mg/dL 70-110 H TESTED AT [facility] 6720 (BEAKER) (test code = [place] [address]) [address] LACTIC ACID, VENOUS, WHOLE [id number] 11:44:00 Test Item Value Reference Range Interpretation Comments LACTATE BLOOD VENOUS (2) (BEAKER) 0.9 mmol/L 0.5-2.2 (test code = 2872) Effective 02/25/2016: Units/Reference Range ChangeNew: 0.5-2.2 mmol/L Previous: 5-20 mg/dLLACTIC ACID, VENOUS, WHOLE [id number] 10:20:00 Test Item Value Reference Range Interpretation Comments LACTATE BLOOD VENOUS (2) (BEAKER) 0.9 mmol/L 0.5-2.2 (test code = 2872) Effective 02/25/2016: Units/Reference Range ChangeNew: 0.5-2.2 mmol/L Previous: 5-20 mg/[id number] 10:00:00 Test Item Value Reference Range Interpretation Comments D-DIMER QUANTITATIVE (BEAKER) 2.73 MG/L FEU <0.50 H (test code = 671) Intended Use: The D-Dimer Assay can be used to aid in the diagnosis of Deep Vein Thrombosis (DVT) and Pulmonary Embolism Disease (PED).In patients with low pre- test probability, various studies concerning STA Liatest D-dimer test have reported that with a cutoff value of 0.50 MG/L FEU, the Negative Predictive Value (NPV) regarding the exclusion of thrombosis is within 95-100% range. [id number] 09:58:00 Test Item Value Reference Range Interpretation Comments PROTIME (BEAKER) (test code = 17.6 seconds 11.7-14.7 H 759) INR (BEAKER) (test code = 370) 1.5 <=5.9 PARTIAL THROMBOPLASTIN TIME 29.5 seconds 22.5-36.0 (BEAKER) (test code = 760) RECOMMENDED COUMADIN/WARFARIN INR THERAPY RANGESSTANDARD DOSE: 2.0 - 3.0 Includes: PROPHYLAXIS forvenous thrombosis, systemic embolization; TREATMENT for venous thrombosis and/or pulmonary embolus.HIGH RISK: Target INR is 2.5-3.5 for patients with mechanical heart valves.[id number] 09:58:00 Test Item Value Reference Range Interpretation Comments FIBRINOGEN LEVEL (BEAKER) (test 151 mg/dl 225-434 L code = 658) CALCIUM, [id number] 09:31:00 Test Item Value Reference Range Interpretation Comments CALCIUM IONIZED (BEAKER) (test 1.09 mmol/L 1.12-1.27 L code = 698) PH, BLOOD (BEAKER) (test code = 7.45 1810) CBC W/PLT COUNT & AUTO [id number] 08:51:00 Test Item Value Reference Range Interpretation Comments WHITE BLOOD CELL COUNT (BEAKER) 15.2 K/ L 3.5-10.5 H (test code = 775) RED BLOOD CELL COUNT (BEAKER) 2.09 M/ L 4.63-6.08 L (test code = 761) HEMOGLOBIN (BEAKER) (test code = 6.2 GM/DL 13.7-17.5 L 410) HEMATOCRIT (BEAKER) (test code = 19.4 % 40.1-51.0 L 411) MEAN CORPUSCULAR VOLUME (BEAKER) 92.8 fL 79.0-92.2 H (test code = 753) MEAN CORPUSCULAR HEMOGLOBIN 29.7 pg 25.7-32.2 (BEAKER) (test code = 751) MEAN CORPUSCULAR HEMOGLOBIN CONC 32.0 GM/DL 32.3-36.5 L (BEAKER) (test code = 752) RED CELL DISTRIBUTION WIDTH 14.7 % 11.6-14.4 H (BEAKER) (test code = 412) PLATELET COUNT (BEAKER) (test 147 K/CU MM 150-450 L code = 756) MEAN PLATELET VOLUME (BEAKER) 10.2 fL 9.4-12.4 (test code = 754) NUCLEATED RED BLOOD CELLS 0 /100 WBC 0-0 (BEAKER) (test code = 413) (CELLAVISION MANUAL DIFF)2018-07-15 08:51:00 Test Item Value Reference Range Interpretation Comments NEUTROPHILS - REL 89 % (CELLAVISION)(BEAKER) (test code = 2816) LYMPHOCYTES - REL 7 % (CELLAVISION)(BEAKER) (test code = 2817) MONOCYTES - REL 2 % (CELLAVISION)(BEAKER) (test code = 2818) EOSINOPHILS - REL 1 % (CELLAVISION)(BEAKER) (test code = 2819) BANDS - REL (CELLAVISION)(BEAKER) 1 % 0-10 (test code = 2826) NEUTROPHILS - ABS 13.53 K/ul 1.78-5.38 H (CELLAVISION)(BEAKER) (test code = 2830) LYMPHOCYTES - ABS 1.06 K/ul 1.32-3.57 L (CELLAVISION)(BEAKER) (test code = 2831) MONOCYTES - ABS 0.30 K/uL 0.30-0.82 (CELLAVISION)(BEAKER) (test code = 2832) EOSINOPHILS - ABS 0.15 K/uL 0.04-0.54 (CELLAVISION)(BEAKER) (test code = 2834) BANDS - ABS (CELLAVISION)(BEAKER) 0.15 K/uL 0.00-0.80 (test code = 2840) TOTAL COUNTED (BEAKER) (test code 100 = 1351) WBC MORPHOLOGY (BEAKER) (test Normal code = 487) GIANT PLATELETS (BEAKER) (test Present code = 313) HYPOCHROMIA (BEAKER) (test code = 2+ moderate 963) ANISOCYTOSIS (BEAKER) (test code 2+ moderate = 961) MICROCYTES (BEAKER) (test code = 1+ few 965) MACROCYTES (BEAKER) (test code = 2+ moderate 964) POIKILOCYTES (BEAKER) (test code 1+ few = 966) OVALOCYTES (BEAKER) (test code = 1+ few 477) ACANTHOCYTES (BEAKER) (test code 1+ few = 471) BASOPHILIC STIPPLING (BEAKER) Present (test code = 473) ARTIFACT (CELLAVISION)(BEAKER) Present (test code = 3432) PLATELET CONCENTRATION Adequate (CELLAVISION)(BEAKER) (test code = 3438) PROTHROMBIN [id number] 08:06:00 Test Item Value Reference Range Interpretation Comments PROTIME (BEAKER) (test code = 17.3 seconds 11.7-14.7 H 759) INR (BEAKER) (test code = 370) 1.4 <=5.9 RECOMMENDED COUMADIN/WARFARIN INR THERAPY RANGESSTANDARD DOSE: 2.0 - 3.0 Includes: PROPHYLAXIS forvenous thrombosis, systemic embolization; TREATMENT for venous thrombosis and/or pulmonary embolus.HIGH RISK: Target INR is 2.5-3.5 for patients with mechanical heart valves.[id number] 08:06:00 Test Item Value Reference Range Interpretation Comments PROTIME (BEAKER) (test code = 17.3 seconds 11.7-14.7 H 759) INR (BEAKER) (test code = 370) 1.4 <=5.9 PARTIAL THROMBOPLASTIN TIME 30.3 seconds 22.5-36.0 (BEAKER) (test code = 760) RECOMMENDED COUMADIN/WARFARIN INR THERAPY RANGESSTANDARD DOSE: 2.0 - 3.0 Includes: PROPHYLAXIS forvenous thrombosis, systemic embolization; TREATMENT for venous thrombosis and/or pulmonary embolus.HIGH RISK: Target INR is 2.5-3.5 for patients with mechanical heart valves.[id number] 08:06:00 Test Item Value Reference Range Interpretation Comments FIBRINOGEN LEVEL (BEAKER) (test 153 mg/dl 225-434 L code = 658) [id number] 08:06:00 Test Item Value Reference Range Interpretation Comments D-DIMER QUANTITATIVE (BEAKER) 3.00 MG/L FEU <0.50 H (test code = 671) Intended Use: The D-Dimer Assay can be used to aid in the diagnosis of Deep Vein Thrombosis (DVT) and Pulmonary Embolism Disease (PED).In patients with low pre- test probability, various studies concerning STA Liatest D-dimer test have reported that with a cutoff value of 0.50 MG/L FEU, the Negative Predictive Value (NPV) regarding the exclusion of thrombosis is within 95-100% range.BLOOD GAS, [id number] 07:07:00 Test Item Value Reference Range Interpretation Comments PH ARTERIAL (BEAKER) (test code = 7.48 7.35-7.45 H 383) PCO2 ARTERIAL (BEAKER) (test code 36 mm Hg 35-45 = 384) PO2 ARTERIAL (BEAKER) (test code = 391 mm Hg 80-90 H 385) O2 SATURATION ARTERIAL (BEAKER) 99.8 % 96.0-97.0 H (test code = 386) HCO3 ARTERIAL (BEAKER) (test code 26 mmol/L 21-29 = 388) BASE EXCESS ARTERIAL (BEAKER) 2.6 mmol/L -2.0-3.0 (test code = 387) PATIENT TEMPERATURE (BEAKER) (test 37.0 code = 1818) FIO2 (BEAKER) (test code = 1819) 100 CALCIUM, [id number] 07:07:00 Test Item Value Reference Range Interpretation Comments CALCIUM IONIZED (BEAKER) (test 1.08 mmol/L 1.12-1.27 L code = 698) PH, BLOOD (BEAKER) (test code = 7.48 1810) CALCIUM, [id number] 07:06:00 Test Item Value Reference Range Interpretation Comments CALCIUM IONIZED (BEAKER) (test 1.07 mmol/L 1.12-1.27 L code = 698) PH, BLOOD (BEAKER) (test code = 7.44 1810) [id number] 06:52:00 Test Item Value Reference Range Interpretation Comments MAGNESIUM (BEAKER) (test code = 1.5 mg/dL 1.6-2.6 L 627) [id number] 06:52:00 Test Item Value Reference Range Interpretation Comments POTASSIUM (BEAKER) (test code = 3.3 meq/L 3.5-5.1 L 379) [id number] 06:52:00 Test Item Value Reference Range Interpretation Comments SODIUM (BEAKER) (test code = 381) 142 meq/L 136-145 HEPATIC FUNCTION [id number] 06:52:00 Test Item Value Reference Range Interpretation Comments TOTAL PROTEIN (BEAKER) (test code = 3.9 gm/dL 6.0-8.3 L 770) ALBUMIN (BEAKER) (test code = 1145) 2.3 g/dL 3.5-5.0 L BILIRUBIN TOTAL (BEAKER) (test code 1.3 mg/dL 0.2-1.2 H = 377) BILIRUBIN DIRECT (BEAKER) (test 1.0 mg/dL 0.1-0.5 H code = 706) ALKALINE PHOSPHATASE (BEAKER) (test 116 U/L 40-150 code = 346) AST (SGOT) (BEAKER) (test code = 38 U/L 5-34 H 353) ALT (SGPT) (BEAKER) (test code = 26 U/L 6-55 347) THROMBOELASTOGRAPH (TEG)2018-07-15 06:15:00 Test Item Value Reference Range Interpretation Comments TEG ACTIVATED CLOTTING TIME 3.9 minutes 4.0-7.0 L (BEAKER) (test code = 1407) TEG FIBRINOGEN ACTIVITY (BEAKER) 73.5 degrees 61.0-73.0 H (test code = 1408) TEG PLT. AGGREGATION (BEAKER) 57.9 MM 55.0-65.0 (test code = 1409) TEG FIBRINOLYSIS (BEAKER) (test 0.2 % 0.0-5.0 code = 1410) TGH ACTIVATED CLOTTING TIME 4.2 minutes 4.0-7.0 (BEAKER) (test code = 1411) TGH FIBRINOGEN ACTIVITY (BEAKER) 72.5 degrees 61.0-73.0 (test code = 1412) TGH PLT. AGGREGATION (BEAKER) 58.9 MM 55.0-65.0 (test code = 1413) TGH FIBRINOLYSIS (BEAKER) (test 0.4 % 0.0-5.0 code = 1414) PLATELET [id number] 05:34:00 Test Item Value Reference Range Interpretation Comments PLATELET COUNT (BEAKER) (test 146 K/CU MM 150-450 L code = 756) HEMOGLOBIN AND [id number] 05:34:00 Test Item Value Reference Range Interpretation Comments HEMOGLOBIN (BEAKER) (test code = 7.3 GM/DL 13.7-17.5 L 410) HEMATOCRIT (BEAKER) (test code = 22.2 % 40.1-51.0 L 411) CALCIUM, [id number] 05:26:00 Test Item Value Reference Range Interpretation Comments CALCIUM IONIZED (BEAKER) (test 0.96 mmol/L 1.12-1.27 L code = 698) PH, BLOOD (BEAKER) (test code = 7.40 1810) RAD, CHEST, 1 VIEW, NON [id number] 05:09:00Reason for exam:->check ET placementShould this be performed at the bedside?->YesFINAL REPORT RAD, CHEST, 1 VIEW, NON DEPT INDICATION: check ET placement ОЛЕГ RISON: Prior day's exam FINDINGS: Portable frontal view of the chest. IMPRESSION: Support Lines: Endotracheal tube terminates 4 cm above the rashmi. Stable right IJ central venous catheter. Lungs and pleura: Central subsegmental atelectasis. No effusion. No pneumothorax.Heart and mediastinum: Stable contours. Stable surgical changes.Additional findings: None. Signed: JR Smith Robert MDReport Verified Date/Time: 07/15/2018 05:09:29 Reading Location: [facility] C0[facility] CT Body Reading Room -[id number] 04:55:00 Test Item Value Reference Range Interpretation Comments D-DIMER QUANTITATIVE (BEAKER) 3.30 MG/L FEU <0.50 H (test code = 671) Intended Use: The D-Dimer Assay can be used to aid in the diagnosis of Deep Vein Thrombosis (DVT) and Pulmonary Embolism Disease (PED).In patients with low pre- test probability, various studies concerning STA Liatest D-dimer test have reported that with a cutoff value of 0.50 MG/L FEU, the Negative Predictive Value (NPV) regarding the exclusion of thrombosis is within 95-100% range.POCT- BLOOD GASES, [id number] 04:54:00 Test Item Value Reference Range Interpretation Comments TEMP, CELSIUS-POC 36.8 (BEAKER) (test code = 1834) FIO2-POC (BEAKER) 100 TESTED AT [place] [address] (test code = 1835) [place] [address] PH, ARTERIAL-POC 7.424 7.350-7.450 (BEAKER) (test code = 1836) PCO2, ARTERIAL-POC 41.6 mm Hg 35.0-45.0 (BEAKER) (test code = 1837) PO2, ARTERIAL-POC 482.0 mm Hg 80.0-90.0 H (BEAKER) (test code = 1838) SO2, ARTERIAL-POC 100.0 % 96.0-97.0 H (BEAKER) (test code = 1839) HCO3, ARTERIAL-POC 27.3 meq/L 21.0-29.0 (BEAKER) (test code = 1840) BASE EXCESS, 3.0 meq/L -2.0-3.0 ARTERIAL-POC (BEAKER) (test code = 1841) [id number] 04:54:00 Test Item Value Reference Range Interpretation Comments POC-SODIUM (BEAKER) 144 meq/L 135-148 TESTED A T [facility] 67 (test code = 1542) [facility] [place] [address] [id number] 04:54:00 Test Item Value Reference Range Interpretation Comments POC-POTASSIUM 3.2 meq/L 3.6-5.5 L TESTED AT [facility] 6720 (BEAKER) (test code [facility] [address] = 1540) [id number] 04:54:00 Test Item Value Reference Range Interpretation Comments POC-GLUCOSE ([facility]) 170 mg/dL 70-110 H TESTED AT [place] [address] (test code = 1855) [place] [address] POCT-CALCIUM [id number] 04:54:00 Test Item Value Reference Range Interpretation Comments POC-CALCIUM IONIZED 1.09 mmol/L 1.12-1.27 L TESTED A T [place] [address] ([facility]) (test code = [facility] Janis [facility] 1536) [address] [id number] 04:54:00 Test Item Value Reference Range Interpretation Comments POC-HEMATOCRIT 22 % 40-50 L TESTED AT [place] [address] ([facility]) (test code = [facility] [address] 1857) [id number] 04:54:00 Test Item Value Reference Range Interpretation Comments POC-HEMOGLOBIN 7.5 g/dL 13.0-16.8 L TESTED AT [place] [address] ([facility]) (test code = [facility] Janis [facility] 1856) [id number] AT [place] [address] [place] [address] [id number] 04:53:00 Test Item Value Reference Range Interpretation Comments PROTIME ([facility]) (test code = 18.4 seconds 11.7-14.7 H 759) INR ([facility]) (test code = 370) 1.5 <=5.9 PARTIAL THROMBOPLASTIN TIME 33.3 seconds 22.5-36.0 ([facility]) (test code = 760) RECOMMENDED COUMADIN/WARFARIN INR THERAPY RANGESSTANDARD DOSE: 2.0 - 3.0 Includes: PROPHYLAXIS forvenous thrombosis, systemic embolization; TREATMENT for venous thrombosis and/or pulmonary embolus.HIGH RISK: Target INR is 2.5-3.5 for patients with mechanical heart valves.[id number] 04:53:00 Test Item Value Reference Range Interpretation Comments FIBRINOGEN LEVEL ([facility]) (test 164 mg/dl 225-434 L code = 658) HEMOGLOBIN AND [id number] 04:12:00 Test Item Value Reference Range Interpretation Comments HEMOGLOBIN (BEAKER) (test code = 7.3 GM/DL 13.7-17.5 L 410) HEMATOCRIT (BEAKER) (test code = 22.3 % 40.1-51.0 L 411) POCT-BLOOD GASES, [id number] 03:58:00 Test Item Value Reference Range Interpretation Comments TEMP, CELSIUS-POC 36.8 (BEAKER) (test code = 1834) FIO2-POC (BEAKER) 32 TESTED AT [place] [address] (test code = 1835) [facility] [address] PH, ARTERIAL-POC 7.426 7.350-7.450 (BEAKER) (test code = 1836) PCO2, ARTERIAL-POC 37.0 mm Hg 35.0-45.0 (BEAKER) (test code = 1837) PO2, ARTERIAL-POC 152.0 mm Hg 80.0-90.0 H (BEAKER) (test code = 1838) SO2, ARTERIAL-POC 99.0 % 96.0-97.0 H (BEAKER) (test code = 1839) HCO3, ARTERIAL-POC 24.4 meq/L 21.0-29.0 (BEAKER) (test code = 1840) BASE EXCESS, 0.0 meq/L -2.0-3.0 ARTERIAL-POC (BEAKER) (test code = 1841) [id number] 03:58:00 Test Item Value Reference Range Interpretation Comments POC-SODIUM (BEAKER) 143 meq/L 135-148 TESTED A T [place] [address] (test code = 1542) [facility] [address] [id number] 03:58:00 Test Item Value Reference Range Interpretation Comments POC-POTASSIUM 4.3 meq/L 3.6-5.5 TESTED AT [place] [address] (BEAKER) (test code [facility] [address] = 1540) [id number] 03:58:00 Test Item Value Reference Range Interpretation Comments POC-GLUCOSE (BEAKER) 178 mg/dL 70-110 H TESTED AT [place] [address] (test code = 1855) [facility] [address] POCT-CALCIUM [id number] 03:58:00 Test Item Value Reference Range Interpretation Comments POC-CALCIUM IONIZED 0.95 mmol/L 1.12-1.27 L TESTED A T [facility] 67 (BEAKER) (test code = GEN[place]E [place] [address]) [address] [id number] 03:58:00 Test Item Value Reference Range Interpretation Comments POC-HEMATOCRIT 17 % 40-50 L TESTED AT [place] [address] (BEAKER) (test code = GENEVIEVE Bruce [facility] [id number]) [id number] 03:58:00 Test Item Value Reference Range Interpretation Comments POC-HEMOGLOBIN 5.8 g/dL 13.0-16.8 LL TESTED AT [place] [address] (BEAKER) (test code = GENEVIEVE Bruce [facility] 185) [id number] AT [facility] [address] [place] [address] [id number] 03:23:00 Test Item Value Reference Range Interpretation Comments PROTIME (BEAKER) (test code = 17.2 seconds 11.7-14.7 H 759) INR (BEAKER) (test code = 370) 1.4 <=5.9 PARTIAL THROMBOPLASTIN TIME 32.7 seconds 22.5-36.0 (BEAKER) (test code = 760) RECOMMENDED COUMADIN/WARFARIN INR THERAPY RANGESSTANDARD DOSE: 2.0 - 3.0 Includes: PROPHYLAXIS forvenous thrombosis, systemic embolization; TREATMENT for venous thrombosis and/or pulmonary embolus.HIGH RISK: Target INR is 2.5-3.5 for patients with mechanical heart valves.PROTHROMBIN [id number] 03:22:00 Test Item Value Reference Range Interpretation Comments PROTIME (BEAKER) (test code = 17.2 seconds 11.7-14.7 H 759) INR (BEAKER) (test code = 370) 1.4 <=5.9 RECOMMENDED COUMADIN/WARFARIN INR THERAPY RANGESSTANDARD DOSE: 2.0 - 3.0 Includes: PROPHYLAXIS forvenous thrombosis, systemic embolization; TREATMENT for venous thrombosis and/or pulmonary embolus.HIGH RISK: Target INR is 2.5-3.5 for patients with mechanical heart valves.BASIC METABOLIC [id number] 02:56:00 Test Item Value Reference Range Interpretation Comments SODIUM (BEAKER) 143 meq/L 136-145 (test code = 381) POTASSIUM (BEAKER) 3.2 meq/L 3.5-5.1 L (test code = 379) CHLORIDE (BEAKER) 106 meq/L 98-107 (test code = 382) CO2 (BEAKER) (test 30 meq/L 22-29 H code = 355) BLOOD UREA NITROGEN 24 mg/dL 7-21 H (BEAKER) (test code = 354) CREATININE (BEAKER) 1.95 mg/dL 0.57-1.25 H (test code = 358) GLUCOSE RANDOM 134 mg/dL 70-105 H (BEAKER) (test code = 652) CALCIUM (BEAKER) 8.2 mg/dL 8.4-10.2 L (test code = 697) EGFR (BEAKER) (test 36 mL/min/1.73 ESTIMA KIMBER GFR IS code = 1092) sq m NOT ACCURATE CREATININE CLEARANCE IN PREDICTING GLOMERULAR FILTRATION RATE . ESTIMATED GFR I S NOT APPLICABLE FOR DIALYSIS PATIEN TS. POCT-BLOOD GASES, [id number] 02:24:00 Test Item Value Reference Range Interpretation Comments TEMP, CELSIUS-POC 36.1 (BEAKER) (test code = 1834) FIO2-POC (BEAKER) 32 TESTED AT [facility] 6720 (test code = 1835) [place] [address] PH, VENOUS-POC 7.432 7.320-7.420 H (BEAKER) (test code = 1842) PCO2, VENOUS-POC 46.6 mm Hg 41.0-51.0 (BEAKER) (test code = 1843) PO2, VENOUS-POC 27.0 mm Hg 25.0-40.0 (BEAKER) (test code = 1844) SO2, VENOUS-POC 54.0 % 40.0-70.0 (BEAKER) (test code = 1845) HCO3, VENOUS-POC 31.3 meq/L 21.0-29.0 H (BEAKER) (test code = 1846) BASE EXCESS, 7.0 meq/L -2.0-3.0 H VENOUS-POC (BEAKER) (test code = 1847) [id number] 02:24:00 Test Item Value Reference Range Interpretation Comments POC-SODIUM (BEAKER) 143 meq/L 135-148 TESTED A T [facility] 6720 (test code = 1542) [facility] [address] [id number] 02:24:00 Test Item Value Reference Range Interpretation Comments POC-POTASSIUM 3.1 meq/L 3.6-5.5 L TESTED AT [place] [address] ([facility]) (test code [place] [id number] = 1540) [id number] 02:24:00 Test Item Value Reference Range Interpretation Comments POC-GLUCOSE ([facility]) 134 mg/dL 70-110 H TESTED AT [place] [address] (test code = 1855) [facility] [address] POCT-CALCIUM [id number] 02:24:00 Test Item Value Reference Range Interpretation Comments POC-CALCIUM IONIZED 1.20 mmol/L 1.12-1.27 TESTED A T [place] [address] ([facility]) (test code = [facility] 1536) [address] [id number] 02:24:00 Test Item Value Reference Range Interpretation Comments POC-HEMATOCRIT 18 % 40-50 L TESTED AT [place] [address] ([facility]) (test code = [place] [id number] 1857) [id number] 02:24:00 Test Item Value Reference Range Interpretation Comments POC-HEMOGLOBIN 6.1 g/dL 13.0-16.8 L TESTED AT [place] [address] ([facility]) (test code = [facility] 1856) [id number] AT [place] [address] [facility] [address] POCT-GLUCOSE [id number] 20:58:00 Test Item Value Reference Range Interpretation Comments POC-GLUCOSE METER 196 mg/dL 70-110 H TESTED AT [place] [address] ([facility]) (test code = [facility] 1538) [address] POCT-GLUCOSE [id number] 17:05:00 Test Item Value Reference Range Interpretation Comments POC-GLUCOSE METER 236 mg/dL 70-110 H TESTED AT [place] [address] ([facility]) (test code = [facility] 1538) [address] POCT-GLUCOSE [id number] 12:04:00 Test Item Value Reference Range Interpretation Comments POC-GLUCOSE METER 115 mg/dL 70-110 H TESTED AT [place] [address] ([facility]) (test code = [facility] 1538) [address] RAD, CHEST, 1 VIEW, NON [id number] 10:09:00Reason for exam:->to assess for consolidation, pleural effusions, pulmonary edemaShould this be performed at the bedside?->YesFINAL REPORT Chest one view compared to July 09 Discussion: Mild interstitial congestion. No effusion or pneumothorax. Right IJ line in place. Signed: Felicitas Riveraeport Verified Date/Time: 07/14/2018 10:09:51 Reading Location: [facility] Radiology Reading Room BASIC METABOLIC [id number] 08:26:00 Test Item Value Reference Range Interpretation Comments SODIUM (BEAKER) 142 meq/L 136-145 (test code = 381) POTASSIUM (BEAKER) 3.6 meq/L 3.5-5.1 (test code = 379) CHLORIDE (BEAKER) 106 meq/L 98-107 (test code = 382) CO2 (BEAKER) (test 29 meq/L 22-29 code = 355) BLOOD UREA NITROGEN 18 mg/dL 7-21 (BEAKER) (test code = 354) CREATININE (BEAKER) 1.46 mg/dL 0.57-1.25 H (test code = 358) GLUCOSE RANDOM 99 mg/dL 70-105 (BEAKER) (test code = 652) CALCIUM (BEAKER) 8.3 mg/dL 8.4-10.2 L (test code = 697) EGFR (BEAKER) (test 50 mL/min/1.73 ESTIMA KIMBER GFR IS code = 1092) sq m NOT ACCURATE CREATININE CLEARANCE IN PREDICTING GLOMERULAR FILTRATION RATE . ESTIMATED GFR I S NOT APPLICABLE FOR DIALYSIS PATIEN TS. BLOOD GAS, [id number] 08:09:00 Test Item Value Reference Range Interpretation Comments PH VENOUS (BEAKER) (test code = 7.41 7.32-7.42 701) PCO2 VENOUS (BEAKER) (test code = 45 mmHg 41-51 755) PO2 VENOUS (BEAKER) (test code = 40 mmHg 25-40 702) O2 SATURATION VENOUS (BEAKER) 75.2 % 40.0-70.0 H (test code = 703) HCO3 VENOUS (BEAKER) (test code = 28 mmol/L 21-29 705) BASE EXCESS VENOUS (BEAKER) (test 3.0 mmol/L -2.0-3.0 code = 704) PATIENT TEMPERATURE (BEAKER) (test 37.0 C code = 1818) FIO2 (BEAKER) (test code = 1819) 36.0 % HEMOGLOBIN AND [id number] 08:07:00 Test Item Value Reference Range Interpretation Comments HEMOGLOBIN (BEAKER) (test code = 7.8 GM/DL 13.7-17.5 L 410) HEMATOCRIT (BEAKER) (test code = 24.4 % 40.1-51.0 L 411) POCT-GLUCOSE [id number] 06:12:00 Test Item Value Reference Range Interpretation Comments POC-GLUCOSE METER 95 mg/dL 70-110 TESTED AT [facility] 6720 (BEAKER) (test code = GENEVIEVE Bruce [facility] [id number] 1538) OXYGEN SATURATION, [id number] 05:31:00 Test Item Value Reference Range Interpretation Comments O2 SATURATION (MEASURED) (BEAKER) 97.9 % (test code = 1455) Obtain from CVP portVANCOMYCIN LEVEL, [id number] 05:18:00 Test Item Value Reference Range Interpretation Comments VANCOMYCIN RANDOM (BEAKER) (test 20.5 ug/mL code = 523) Reference Range: No NormalsBLOOD GAS, [id number] 05:01:00 Test Item Value Reference Range Interpretation Comments PH ARTERIAL (BEAKER) (test code = 7.46 7.35-7.45 H 383) PCO2 ARTERIAL (BEAKER) (test code 38 mmHg 35-45 = 384) PO2 ARTERIAL (BEAKER) (test code = 119 mmHg 80-90 H 385) O2 SATURATION ARTERIAL (BEAKER) 98.5 % 96.0-97.0 H (test code = 386) HCO3 ARTERIAL (BEAKER) (test code 27 mmol/L 21-29 = 388) BASE EXCESS ARTERIAL (BEAKER) 2.6 mmol/L -2.0-3.0 (test code = 387) PATIENT TEMPERATURE (BEAKER) (test 37.0 C code = 1818) FIO2 (BEAKER) (test code = 1819) 32.0 % [id number] 04:55:00 Test Item Value Reference Range Interpretation Comments MAGNESIUM (BEAKER) (test code = 1.9 mg/dL 1.6-2.6 627) BASIC METABOLIC [id number] 04:55:00 Test Item Value Reference Range Interpretation Comments SODIUM (BEAKER) 142 meq/L 136-145 (test code = 381) POTASSIUM (BEAKER) 3.6 meq/L 3.5-5.1 (test code = 379) CHLORIDE (BEAKER) 107 meq/L 98-107 (test code = 382) CO2 (BEAKER) (test 25 meq/L 22-29 code = 355) BLOOD UREA NITROGEN 18 mg/dL 7-21 (BEAKER) (test code = 354) CREATININE (BEAKER) 1.33 mg/dL 0.57-1.25 H (test code = 358) GLUCOSE RANDOM 99 mg/dL 70-105 (BEAKER) (test code = 652) CALCIUM (BEAKER) 8.5 mg/dL 8.4-10.2 (test code = 697) EGFR (BEAKER) (test 56 mL/min/1.73 ESTIMA KIMBER GFR IS code = 1092) sq m NOT ACCURATE CREATININE CLEARANCE IN PREDICTING GLOMERULAR FILTRATION RATE . ESTIMATED GFR I S NOT APPLICABLE FOR DIALYSIS PATIEN TS. HEPATIC FUNCTION [id number] 04:55:00 Test Item Value Reference Range Interpretation Comments TOTAL PROTEIN (BEAKER) (test code = 5.1 gm/dL 6.0-8.3 L 770) ALBUMIN (BEAKER) (test code = 1145) 3.0 g/dL 3.5-5.0 L BILIRUBIN TOTAL (BEAKER) (test code 1.9 mg/dL 0.2-1.2 H = 377) BILIRUBIN DIRECT (BEAKER) (test 1.4 mg/dL 0.1-0.5 H code = 706) ALKALINE PHOSPHATASE (BEAKER) (test 148 U/L 40-150 code = 346) AST (SGOT) (BEAKER) (test code = 53 U/L 5-34 H 353) ALT (SGPT) (BEAKER) (test code = 35 U/L 6-55 347) PROTHROMBIN [id number] 04:28:00 Test Item Value Reference Range Interpretation Comments PROTIME (BEAKER) (test code = 17.3 seconds 11.7-14.7 H 759) INR (BEAKER) (test code = 370) 1.4 <=5.9 RECOMMENDED COUMADIN/WARFARIN INR THERAPY RANGESSTANDARD DOSE: 2.0 - 3.0 Includes: PROPHYLAXIS forvenous thrombosis, systemic embolization; TREATMENT for venous thrombosis and/or pulmonary embolus.HIGH RISK: Target INR is 2.5-3.5 for patients with mechanical heart valves.HEMOGLOBIN AND [id number] 04:22:00 Test Item Value Reference Range Interpretation Comments HEMOGLOBIN (BEAKER) (test code = 8.2 GM/DL 13.7-17.5 L 410) HEMATOCRIT (BEAKER) (test code = 25.7 % 40.1-51.0 L 411) POCT-GLUCOSE [id number] 00:22:00 Test Item Value Reference Range Interpretation Comments POC-GLUCOSE METER 96 mg/dL 70-110 TESTED AT [place] [address] ([facility]) (test code = [facility] [address] 1538) HEMOGLOBIN AND [id number] 21:02:00 Test Item Value Reference Range Interpretation Comments HEMOGLOBIN (BEAKER) (test code = 8.5 GM/DL 13.7-17.5 L 410) HEMATOCRIT (BEAKER) (test code = 26.1 % 40.1-51.0 L 411) POCT-GLUCOSE [id number] 17:53:00 Test Item Value Reference Range Interpretation Comments POC-GLUCOSE METER 123 mg/dL 70-110 H TESTED AT [place] [address] ([facility]) (test code = [facility] 1538) [address] [id number] 16:37:00 Test Item Value Reference Range Interpretation Comments MAGNESIUM (BEAKER) (test code = 2.1 mg/dL 1.6-2.6 627) BASIC METABOLIC [id number] 16:37:00 Test Item Value Reference Range Interpretation Comments SODIUM (BEAKER) 142 meq/L 136-145 (test code = 381) POTASSIUM (BEAKER) 3.7 meq/L 3.5-5.1 (test code = 379) CHLORIDE (BEAKER) 108 meq/L 98-107 H (test code = 382) CO2 (BEAKER) (test 23 meq/L 22-29 code = 355) BLOOD UREA NITROGEN 30 mg/dL 7-21 H (BEAKER) (test code = 354) CREATININE (BEAKER) 1.77 mg/dL 0.57-1.25 H (test code = 358) GLUCOSE RANDOM 122 mg/dL 70-105 H (BEAKER) (test code = 652) CALCIUM (BEAKER) 8.5 mg/dL 8.4-10.2 (test code = 697) EGFR (BEAKER) (test 40 mL/min/1.73 ESTIMA KIMBER GFR IS code = 1092) sq m NOT ACCURATE CREATININE CLEARANCE IN PREDICTING GLOMERULAR FILTRATION RATE . ESTIMATED GFR I S NOT APPLICABLE FOR DIALYSIS PATIEN TS. HEPATITIS B [id number] 13:03:00 Test Item Value Reference Range Interpretation Comments HEPATITIS B CORE TOTAL ANTIBODY Nonreactive Nonreactive (BEAKER) (test code = 497) HEPATITIS B SURFACE ANTIBODY 14.4 mIU/mL <8.0 H (BEAKER) (test code = 647) HEPATITIS B SURFACE ANTIGEN (2) Nonreactive Nonreactive (BEAKER) (test code = 2585) POCT-GLUCOSE [id number] 12:24:00 Test Item Value Reference Range Interpretation Comments POC-GLUCOSE METER 123 mg/dL 70-110 H TESTED AT [facility] 6720 (BEAKER) (test code = [place] 1538) [address] HEMOGLOBIN AND [id number] 12:07:00 Test Item Value Reference Range Interpretation Comments HEMOGLOBIN (BEAKER) (test code = 8.1 GM/DL 13.7-17.5 L 410) HEMATOCRIT (BEAKER) (test code = 25.2 % 40.1-51.0 L 411) BLOOD GAS, [id number] 09:34:00 Test Item Value Reference Range Interpretation Comments PH ARTERIAL (BEAKER) (test code = 7.46 7.35-7.45 H 383) PCO2 ARTERIAL (BEAKER) (test code 36 mmHg 35-45 = 384) PO2 ARTERIAL (BEAKER) (test code = 65 mmHg 80-90 L 385) O2 SATURATION ARTERIAL (BEAKER) 93.8 % 96.0-97.0 L (test code = 386) HCO3 ARTERIAL (BEAKER) (test code 25 mmol/L 21-29 = 388) BASE EXCESS ARTERIAL (BEAKER) 1.0 mmol/L -2.0-3.0 (test code = 387) PATIENT TEMPERATURE (BEAKER) (test 37.0 C code = 1818) FIO2 (BEAKER) (test code = 1819) 21.0 % POCT-GLUCOSE [id number] 06:31:00 Test Item Value Reference Range Interpretation Comments POC-GLUCOSE METER 123 mg/dL 70-110 H TESTED AT [facility] 6720 (BEAKER) (test code = [place] 1538) [address] CALCIUM, [id number] 04:56:00 Test Item Value Reference Range Interpretation Comments CALCIUM IONIZED (BEAKER) (test 1.17 mmol/L 1.12-1.27 code = 698) PH, BLOOD (BEAKER) (test code = 7.41 1810) OXYGEN SATURATION, [id number] 04:55:00 Test Item Value Reference Range Interpretation Comments O2 SATURATION (MEASURED) ([facility]) 84.2 % (test code = 1455) Obtain from CVP [id number] 04:31:00 Test Item Value Reference Range Interpretation Comments POTASSIUM (BEAKER) (test code = 3.9 meq/L 3.5-5.1 379) [id number] 04:31:00 Test Item Value Reference Range Interpretation Comments MAGNESIUM (BEAKER) (test code = 2.2 mg/dL 1.6-2.6 627) [id number] 04:31:00 Test Item Value Reference Range Interpretation Comments SODIUM (BEAKER) (test code = 381) 140 meq/L 136-145 HEPATIC FUNCTION [id number] 04:31:00 Test Item Value Reference Range Interpretation Comments TOTAL PROTEIN (BEAKER) (test code = 5.0 gm/dL 6.0-8.3 L 770) ALBUMIN (BEAKER) (test code = 1145) 2.9 g/dL 3.5-5.0 L BILIRUBIN TOTAL (BEAKER) (test code 1.7 mg/dL 0.2-1.2 H = 377) BILIRUBIN DIRECT (BEAKER) (test 1.3 mg/dL 0.1-0.5 H code = 706) ALKALINE PHOSPHATASE (BEAKER) (test 120 U/L 40-150 code = 346) AST (SGOT) (BEAKER) (test code = 51 U/L 5-34 H 353) ALT (SGPT) (BEAKER) (test code = 32 U/L 6-55 347) PROTHROMBIN [id number] 04:24:00 Test Item Value Reference Range Interpretation Comments PROTIME (BEAKER) (test code = 18.0 seconds 11.7-14.7 H 759) INR (BEAKER) (test code = 370) 1.5 <=5.9 RECOMMENDED COUMADIN/WARFARIN INR THERAPY RANGESSTANDARD DOSE: 2.0 - 3.0 Includes: PROPHYLAXIS forvenous thrombosis, systemic embolization; TREATMENT for venous thrombosis and/or pulmonary embolus.HIGH RISK: Target INR is 2.5-3.5 for patients with mechanical heart valves.CBC W/PLT COUNT & AUTO DIFFERENTIAL 2018-07-13 04:14:00 Test Item Value Reference Range Interpretation Comments WHITE BLOOD CELL COUNT (BEAKER) 13.2 K/ L 3.5-10.5 H (test code = 775) RED BLOOD CELL COUNT (BEAKER) 2.79 M/ L 4.63-6.08 L (test code = 761) HEMOGLOBIN (BEAKER) (test code = 8.2 GM/DL 13.7-17.5 L 410) HEMATOCRIT (BEAKER) (test code = 25.4 % 40.1-51.0 L 411) MEAN CORPUSCULAR VOLUME (BEAKER) 91.0 fL 79.0-92.2 (test code = 753) MEAN CORPUSCULAR HEMOGLOBIN 29.4 pg 25.7-32.2 (BEAKER) (test code = 751) MEAN CORPUSCULAR HEMOGLOBIN CONC 32.3 GM/DL 32.3-36.5 (BEAKER) (test code = 752) RED CELL DISTRIBUTION WIDTH 14.9 % 11.6-14.4 H (BEAKER) (test code = 412) PLATELET COUNT (BEAKER) (test code 93 K/CU MM 150-450 L = 756) MEAN PLATELET VOLUME (BEAKER) 10.7 fL 9.4-12.4 (test code = 754) NUCLEATED RED BLOOD CELLS (BEAKER) 0 /100 WBC 0-0 (test code = 413) NEUTROPHILS RELATIVE PERCENT 81 % (BEAKER) (test code = 429) LYMPHOCYTES RELATIVE PERCENT 7 % (BEAKER) (test code = 430) MONOCYTES RELATIVE PERCENT 10 % (BEAKER) (test code = 431) EOSINOPHILS RELATIVE PERCENT 0 % (BEAKER) (test code = 432) BASOPHILS RELATIVE PERCENT 0 % (BEAKER) (test code = 437) NEUTROPHILS ABSOLUTE COUNT 10.67 K/ L 1.78-5.38 H (BEAKER) (test code = 670) LYMPHOCYTES ABSOLUTE COUNT 0.96 K/ L 1.32-3.57 L (BEAKER) (test code = 414) MONOCYTES ABSOLUTE COUNT (BEAKER) 1.25 K/ L 0.30-0.82 H (test code = 415) EOSINOPHILS ABSOLUTE COUNT 0.03 K/ L 0.04-0.54 L (BEAKER) (test code = 416) BASOPHILS ABSOLUTE COUNT (BEAKER) 0.02 K/ L 0.01-0.08 (test code = 417) IMMATURE GRANULOCYTES-RELATIVE 2 % 0-1 H PERCENT (BEAKER) (test code = 2801) [id number] 02:44:00 Test Item Value Reference Range Interpretation Comments POTASSIUM (BEAKER) (test code = 3.4 meq/L 3.5-5.1 L 379) HEMOGLOBIN AND [id number] 02:33:00 Test Item Value Reference Range Interpretation Comments HEMOGLOBIN (BEAKER) (test code = 8.3 GM/DL 13.7-17.5 L 410) HEMATOCRIT (BEAKER) (test code = 25.6 % 40.1-51.0 L 411) POCT-GLUCOSE [id number] 00:56:00 Test Item Value Reference Range Interpretation Comments POC-GLUCOSE METER 104 mg/dL 70-110 TESTED AT [facility] 6720 (BEAKER) (test code = [place] 1538) [address] BASIC METABOLIC [id number] 23:41:00 Test Item Value Reference Range Interpretation Comments SODIUM (BEAKER) 139 meq/L 136-145 (test code = 381) POTASSIUM (BEAKER) 4.0 meq/L 3.5-5.1 (test code = 379) CHLORIDE (BEAKER) 105 meq/L 98-107 (test code = 382) CO2 (BEAKER) (test 23 meq/L 22-29 code = 355) BLOOD UREA NITROGEN 22 mg/dL 7-21 H (BEAKER) (test code = 354) CREATININE (BEAKER) 1.32 mg/dL 0.57-1.25 H (test code = 358) GLUCOSE RANDOM 99 mg/dL 70-105 (BEAKER) (test code = 652) CALCIUM (BEAKER) 8.6 mg/dL 8.4-10.2 (test code = 697) EGFR (BEAKER) (test 56 mL/min/1.73 ESTIMA KIMBER GFR IS code = 1092) sq m NOT ACCURATE CREATININE CLEARANCE IN PREDICTING GLOMERULAR FILTRATION RATE . ESTIMATED GFR I S NOT APPLICABLE FOR DIALYSIS PATIEN TS. [id number] 18:36:00 Test Item Value Reference Range Interpretation Comments POTASSIUM (BEAKER) (test code = 3.9 meq/L 3.5-5.1 379) [id number] 18:36:00 Test Item Value Reference Range Interpretation Comments MAGNESIUM (BEAKER) (test code = 1.9 mg/dL 1.6-2.6 627) [id number] 18:36:00 Test Item Value Reference Range Interpretation Comments PHOSPHORUS (BEAKER) (test code = 3.5 mg/dL 2.3-4.7 604) [id number] 18:36:00 Test Item Value Reference Range Interpretation Comments SODIUM (BEAKER) (test code = 381) 139 meq/L 136-145 BASIC METABOLIC [id number] 18:36:00 Test Item Value Reference Range Interpretation Comments SODIUM (BEAKER) 139 meq/L 136-145 (test code = 381) POTASSIUM (BEAKER) 3.9 meq/L 3.5-5.1 (test code = 379) CHLORIDE (BEAKER) 104 meq/L 98-107 (test code = 382) CO2 (BEAKER) (test 24 meq/L 22-29 code = 355) BLOOD UREA NITROGEN 24 mg/dL 7-21 H (BEAKER) (test code = 354) CREATININE (BEAKER) 1.33 mg/dL 0.57-1.25 H (test code = 358) GLUCOSE RANDOM 110 mg/dL 70-105 H (BEAKER) (test code = 652) CALCIUM (BEAKER) 8.5 mg/dL 8.4-10.2 (test code = 697) EGFR (BEAKER) (test 56 mL/min/1.73 ESTIMA KIMBER GFR IS code = 1092) sq m NOT ACCURATE CREATININE CLEARANCE IN PREDICTING GLOMERULAR FILTRATION RATE . ESTIMATED GFR I S NOT APPLICABLE FOR DIALYSIS PATIEN TS. PH, [id number] 18:28:00 Test Item Value Reference Range Interpretation Comments PH ARTERIAL (BEAKER) (test code = 383) 7.44 7.35-7.45 CALCIUM, [id number] 18:28:00 Test Item Value Reference Range Interpretation Comments CALCIUM IONIZED (BEAKER) (test 1.16 mmol/L 1.12-1.27 code = 698) PH, BLOOD (BEAKER) (test code = 7.44 1810) HEMOGLOBIN AND [id number] 18:21:00 Test Item Value Reference Range Interpretation Comments HEMOGLOBIN (BEAKER) (test code = 8.6 GM/DL 13.7-17.5 L 410) HEMATOCRIT (BEAKER) (test code = 26.2 % 40.1-51.0 L 411) POCT-GLUCOSE [id number] 17:47:00 Test Item Value Reference Range Interpretation Comments POC-GLUCOSE METER 114 mg/dL 70-110 H TESTED AT [facility] 6720 (BEAKER) (test code = GENEVIEVE Bruce [facility] 1538) [address] [id number] 14:40:00 Test Item Value Reference Range Interpretation Comments PROCALCITONIN (BEAKER) (test code 0.65 ng/mL <0.05 H = 3036) SEPSIS RISK (ng/mL)Low: 0.05-0.50Intermediate: 0.51-2.00High: >=[id number] 13:50:00 Test Item Value Reference Range Interpretation Comments POTASSIUM (BEAKER) (test code = 4.1 meq/L 3.5-5.1 379) BASIC METABOLIC [id number] 13:50:00 Test Item Value Reference Range Interpretation Comments SODIUM (BEAKER) 139 meq/L 136-145 (test code = 381) POTASSIUM (BEAKER) 4.1 meq/L 3.5-5.1 (test code = 379) CHLORIDE (BEAKER) 104 meq/L 98-107 (test code = 382) CO2 (BEAKER) (test 24 meq/L 22-29 code = 355) BLOOD UREA NITROGEN 24 mg/dL 7-21 H (BEAKER) (test code = 354) CREATININE (BEAKER) 1.32 mg/dL 0.57-1.25 H (test code = 358) GLUCOSE RANDOM 124 mg/dL 70-105 H (BEAKER) (test code = 652) CALCIUM (BEAKER) 8.6 mg/dL 8.4-10.2 (test code = 697) EGFR (BEAKER) (test 56 mL/min/1.73 ESTIMA KIMBER GFR IS code = 1092) sq m NOT ACCURATE CREATININE CLEARANCE IN PREDICTING GLOMERULAR FILTRATION RATE . ESTIMATED GFR I S NOT APPLICABLE FOR DIALYSIS PATIEN TS. VANCOMYCIN LEVEL, [id number] 13:49:00 Test Item Value Reference Range Interpretation Comments VANCOMYCIN TROUGH (BEAKER) (test 16.0 ug/mL 10.0-20.0 code = 522) CALCIUM, [id number] 13:32:00 Test Item Value Reference Range Interpretation Comments CALCIUM IONIZED (BEAKER) (test 1.17 mmol/L 1.12-1.27 code = 698) PH, BLOOD (BEAKER) (test code = 7.45 1810) POCT-GLUCOSE [id number] 13:32:00 Test Item Value Reference Range Interpretation Comments POC-GLUCOSE METER 151 mg/dL 70-110 H TESTED AT [facility] 6720 (BEAKER) (test code = GEN[place]E [place] 1538) [id number] BLOOD GAS, [id number] 10:06:00 Test Item Value Reference Range Interpretation Comments PH ARTERIAL (BEAKER) (test code = 7.46 7.35-7.45 H 383) PCO2 ARTERIAL (BEAKER) (test code 36 mmHg 35-45 = 384) PO2 ARTERIAL (BEAKER) (test code = 110 mmHg 80-90 H 385) O2 SATURATION ARTERIAL (BEAKER) 98.3 % 96.0-97.0 H (test code = 386) HCO3 ARTERIAL (BEAKER) (test code 25 mmol/L 21-29 = 388) BASE EXCESS ARTERIAL (BEAKER) 0.8 mmol/L -2.0-3.0 (test code = 387) PATIENT TEMPERATURE (BEAKER) (test 36.7 C code = 1818) FIO2 (BEAKER) (test code = 1819) 28.0 % [id number] 08:56:00 Test Item Value Reference Range Interpretation Comments POTASSIUM (BEAKER) (test code = 4.2 meq/L 3.5-5.1 379) BASIC METABOLIC [id number] 08:56:00 Test Item Value Reference Range Interpretation Comments SODIUM (BEAKER) 138 meq/L 136-145 (test code = 381) POTASSIUM (BEAKER) 4.2 meq/L 3.5-5.1 (test code = 379) CHLORIDE (BEAKER) 104 meq/L 98-107 (test code = 382) CO2 (BEAKER) (test 24 meq/L 22-29 code = 355) BLOOD UREA NITROGEN 24 mg/dL 7-21 H (BEAKER) (test code = 354) CREATININE (BEAKER) 1.35 mg/dL 0.57-1.25 H (test code = 358) GLUCOSE RANDOM 129 mg/dL 70-105 H (BEAKER) (test code = 652) CALCIUM (BEAKER) 8.5 mg/dL 8.4-10.2 (test code = 697) EGFR (BEAKER) (test 55 mL/min/1.73 ESTIMA KIMBER GFR IS code = 1092) sq m NOT ACCURATE CREATININE CLEARANCE IN PREDICTING GLOMERULAR FILTRATION RATE . ESTIMATED GFR I S NOT APPLICABLE FOR DIALYSIS PATIEN TS. HEMOGLOBIN AND [id number] 08:38:00 Test Item Value Reference Range Interpretation Comments HEMOGLOBIN (BEAKER) (test code = 7.9 GM/DL 13.7-17.5 L 410) HEMATOCRIT (BEAKER) (test code = 23.9 % 40.1-51.0 L 411) BLOOD [id number] 06:00:00 Test Item Value Reference Range Interpretation Comments CULTURE (BEAKER) (test No growth in 5 days code = 1095) BLOOD [id number] 06:00:00 Test Item Value Reference Range Interpretation Comments CULTURE (BEAKER) (test No growth in 5 days code = 1095) POCT-GLUCOSE [id number] 05:29:00 Test Item Value Reference Range Interpretation Comments POC-GLUCOSE METER 118 mg/dL 70-110 H TESTED AT [facility] 6720 (BEAKER) (test code = GENEVIEVE Janis [place] 1538) [address] CALCIUM, [id number] 04:13:00 Test Item Value Reference Range Interpretation Comments CALCIUM IONIZED (BEAKER) (test 1.18 mmol/L 1.12-1.27 code = 698) PH, BLOOD (BEAKER) (test code = 7.47 1810) [id number] 04:13:00 Test Item Value Reference Range Interpretation Comments POTASSIUM (BEAKER) (test code = 4.4 meq/L 3.5-5.1 379) [id number] 04:13:00 Test Item Value Reference Range Interpretation Comments MAGNESIUM (BEAKER) (test code = 1.9 mg/dL 1.6-2.6 627) [id number] 04:13:00 Test Item Value Reference Range Interpretation Comments PHOSPHORUS (BEAKER) (test code = 2.9 mg/dL 2.3-4.7 604) [id number] 04:13:00 Test Item Value Reference Range Interpretation Comments SODIUM (BEAKER) (test code = 381) 140 meq/L 136-145 HEPATIC FUNCTION [id number] 04:13:00 Test Item Value Reference Range Interpretation Comments TOTAL PROTEIN (BEAKER) (test code = 5.0 gm/dL 6.0-8.3 L 770) ALBUMIN (BEAKER) (test code = 1145) 2.9 g/dL 3.5-5.0 L BILIRUBIN TOTAL (BEAKER) (test code 1.8 mg/dL 0.2-1.2 H = 377) BILIRUBIN DIRECT (BEAKER) (test 1.3 mg/dL 0.1-0.5 H code = 706) ALKALINE PHOSPHATASE (BEAKER) (test 115 U/L 40-150 code = 346) AST (SGOT) (BEAKER) (test code = 57 U/L 5-34 H 353) ALT (SGPT) (BEAKER) (test code = 31 U/L 6-55 347) PROTHROMBIN [id number] 04:12:00 Test Item Value Reference Range Interpretation Comments PROTIME (BEAKER) (test code = 15.8 seconds 11.7-14.7 H 759) INR (BEAKER) (test code = 370) 1.3 <=5.9 RECOMMENDED COUMADIN/WARFARIN INR THERAPY RANGESSTANDARD DOSE: 2.0 - 3.0 Includes: PROPHYLAXIS forvenous thrombosis, systemic embolization; TREATMENT for venous thrombosis and/or pulmonary embolus.HIGH RISK: Target INR is 2.5-3.5 for patients with mechanical heart valves.CBC W/PLT COUNT & AUTO DIFFERENTIAL 2018-07-12 04:01:00 Test Item Value Reference Range Interpretation Comments WHITE BLOOD CELL COUNT (BEAKER) 14.9 K/ L 3.5-10.5 H (test code = 775) RED BLOOD CELL COUNT (BEAKER) 2.76 M/ L 4.63-6.08 L (test code = 761) HEMOGLOBIN (BEAKER) (test code = 8.0 GM/DL 13.7-17.5 L 410) HEMATOCRIT (BEAKER) (test code = 24.9 % 40.1-51.0 L 411) MEAN CORPUSCULAR VOLUME (BEAKER) 90.2 fL 79.0-92.2 (test code = 753) MEAN CORPUSCULAR HEMOGLOBIN 29.0 pg 25.7-32.2 (BEAKER) (test code = 751) MEAN CORPUSCULAR HEMOGLOBIN CONC 32.1 GM/DL 32.3-36.5 L (BEAKER) (test code = 752) RED CELL DISTRIBUTION WIDTH 14.9 % 11.6-14.4 H (BEAKER) (test code = 412) PLATELET COUNT (BEAKER) (test code 70 K/CU MM 150-450 L = 756) MEAN PLATELET VOLUME (BEAKER) 11.5 fL 9.4-12.4 (test code = 754) NUCLEATED RED BLOOD CELLS (BEAKER) 0 /100 WBC 0-0 (test code = 413) NEUTROPHILS RELATIVE PERCENT 86 % (BEAKER) (test code = 429) LYMPHOCYTES RELATIVE PERCENT 6 % (BEAKER) (test code = 430) MONOCYTES RELATIVE PERCENT 7 % (BEAKER) (test code = 431) EOSINOPHILS RELATIVE PERCENT 0 % (BEAKER) (test code = 432) BASOPHILS RELATIVE PERCENT 0 % (BEAKER) (test code = 437) NEUTROPHILS ABSOLUTE COUNT 12.77 K/ L 1.78-5.38 H (BEAKER) (test code = 670) LYMPHOCYTES ABSOLUTE COUNT 0.87 K/ L 1.32-3.57 L (BEAKER) (test code = 414) MONOCYTES ABSOLUTE COUNT (BEAKER) 1.02 K/ L 0.30-0.82 H (test code = 415) EOSINOPHILS ABSOLUTE COUNT 0.01 K/ L 0.04-0.54 L (BEAKER) (test code = 416) BASOPHILS ABSOLUTE COUNT (BEAKER) 0.02 K/ L 0.01-0.08 (test code = 417) IMMATURE GRANULOCYTES-RELATIVE 1 % 0-1 PERCENT (BEAKER) (test code = 2801) POCT-GLUCOSE [id number] 00:06:00 Test Item Value Reference Range Interpretation Comments POC-GLUCOSE METER 81 mg/dL 70-110 TESTED AT [facility] [address] (BEAKER) (test code = [place] [address] 1538) HEMOGLOBIN AND [id number] 23:58:00 Test Item Value Reference Range Interpretation Comments HEMOGLOBIN (BEAKER) (test code = 8.0 GM/DL 13.7-17.5 L 410) HEMATOCRIT (BEAKER) (test code = 24.2 % 40.1-51.0 L 411) [id number] 21:58:00 Test Item Value Reference Range Interpretation Comments POTASSIUM (BEAKER) (test code = 4.2 meq/L 3.5-5.1 379) BASIC METABOLIC [id number] 21:58:00 Test Item Value Reference Range Interpretation Comments SODIUM (BEAKER) 139 meq/L 136-145 (test code = 381) POTASSIUM (BEAKER) 4.2 meq/L 3.5-5.1 (test code = 379) CHLORIDE (BEAKER) 107 meq/L 98-107 (test code = 382) CO2 (BEAKER) (test 24 meq/L 22-29 code = 355) BLOOD UREA NITROGEN 23 mg/dL 7-21 H (BEAKER) (test code = 354) CREATININE (BEAKER) 1.40 mg/dL 0.57-1.25 H (test code = 358) GLUCOSE RANDOM 97 mg/dL 70-105 (BEAKER) (test code = 652) CALCIUM (BEAKER) 8.3 mg/dL 8.4-10.2 L (test code = 697) EGFR (BEAKER) (test 52 mL/min/1.73 ESTIMA KIMBER GFR IS code = 1092) sq m NOT ACCURATE CREATININE CLEARANCE IN PREDICTING GLOMERULAR FILTRATION RATE . ESTIMATED GFR I S NOT APPLICABLE FOR DIALYSIS PATIEN TS. CALCIUM, [id number] 21:53:00 Test Item Value Reference Range Interpretation Comments CALCIUM IONIZED (BEAKER) (test 1.18 mmol/L 1.12-1.27 code = 698) PH, BLOOD (BEAKER) (test code = 7.48 1810) [id number] 18:52:00 Test Item Value Reference Range Interpretation Comments LIPASE (BEAKER) (test code = 749) 57 U/L 8-78 [id number] 18:35:00 Test Item Value Reference Range Interpretation Comments POTASSIUM (BEAKER) (test code = 4.5 meq/L 3.5-5.1 379) [id number] 18:35:00 Test Item Value Reference Range Interpretation Comments MAGNESIUM (BEAKER) (test code = 1.9 mg/dL 1.6-2.6 627) [id number] 18:35:00 Test Item Value Reference Range Interpretation Comments PHOSPHORUS (BEAKER) (test code = 3.1 mg/dL 2.3-4.7 604) [id number] 18:35:00 Test Item Value Reference Range Interpretation Comments SODIUM (BEAKER) (test code = 381) 140 meq/L 136-145 BASIC METABOLIC [id number] 18:35:00 Test Item Value Reference Range Interpretation Comments SODIUM (BEAKER) 140 meq/L 136-145 (test code = 381) POTASSIUM (BEAKER) 4.5 meq/L 3.5-5.1 (test code = 379) CHLORIDE (BEAKER) 106 meq/L 98-107 (test code = 382) CO2 (BEAKER) (test 24 meq/L 22-29 code = 355) BLOOD UREA NITROGEN 25 mg/dL 7-21 H (BEAKER) (test code = 354) CREATININE (BEAKER) 1.46 mg/dL 0.57-1.25 H (test code = 358) GLUCOSE RANDOM 122 mg/dL 70-105 H (BEAKER) (test code = 652) CALCIUM (BEAKER) 8.4 mg/dL 8.4-10.2 (test code = 697) EGFR (BEAKER) (test 50 mL/min/1.73 ESTIMA KIMBRE GFR IS code = 1092) sq m NOT ACCURATE CREATININE CLEARANCE IN PREDICTING GLOMERULAR FILTRATION RATE . ESTIMATED GFR I S NOT APPLICABLE FOR DIALYSIS PATIEN TS. HEMOGLOBIN AND [id number] 18:16:00 Test Item Value Reference Range Interpretation Comments HEMOGLOBIN (BEAKER) (test code = 7.7 GM/DL 13.7-17.5 L 410) HEMATOCRIT (BEAKER) (test code = 23.7 % 40.1-51.0 L 411) PH, [id number] 18:07:00 Test Item Value Reference Range Interpretation Comments PH ARTERIAL (BEAKER) (test code = 383) 7.47 7.35-7.45 H POCT-GLUCOSE [id number] 17:24:00 Test Item Value Reference Range Interpretation Comments POC-GLUCOSE METER 151 mg/dL 70-110 H TESTED AT [place] [address] (BEAKER) (test code = [place] 1538) [address] [id number] 12:50:00 Test Item Value Reference Range Interpretation Comments POTASSIUM (BEAKER) (test code = 5.1 meq/L 3.5-5.1 379) CALCIUM, [id number] 12:37:00 Test Item Value Reference Range Interpretation Comments CALCIUM IONIZED (BEAKER) (test 1.15 mmol/L 1.12-1.27 code = 698) PH, BLOOD (BEAKER) (test code = 7.46 1810) HEMOGLOBIN AND [id number] 12:32:00 Test Item Value Reference Range Interpretation Comments HEMOGLOBIN (BEAKER) (test code = 8.0 GM/DL 13.7-17.5 L 410) HEMATOCRIT (BEAKER) (test code = 24.5 % 40.1-51.0 L 411) POCT-GLUCOSE [id number] 12:04:00 Test Item Value Reference Range Interpretation Comments POC-GLUCOSE METER 191 mg/dL 70-110 H TESTED AT [facility] [address] (BEAKER) (test code = GENEVIEVE [place] 1538) [address] [id number] 09:30:00 Test Item Value Reference Range Interpretation Comments POTASSIUM (BEAKER) (test code = 4.9 meq/L 3.5-5.1 379) [id number] 09:28:00 Test Item Value Reference Range Interpretation Comments PARTIAL THROMBOPLASTIN TIME 33.3 seconds 22.5-36.0 (BEAKER) (test code = 760) PROTHROMBIN [id number] 09:27:00 Test Item Value Reference Range Interpretation Comments PROTIME (BEAKER) (test code = 15.6 seconds 11.7-14.7 H 759) INR (BEAKER) (test code = 370) 1.2 <=5.9 RECOMMENDED COUMADIN/WARFARIN INR THERAPY RANGESSTANDARD DOSE: 2.0 - 3.0 Includes: PROPHYLAXIS forvenous thrombosis, systemic embolization; TREATMENT for venous thrombosis and/or pulmonary embolus.HIGH RISK: Target INR is 2.5-3.5 for patients with mechanical heart valves.[id number] 09:22:00 Test Item Value Reference Range Interpretation Comments POTASSIUM (BEAKER) (test code = 4.9 meq/L 3.5-5.1 379) [id number] 09:22:00 Test Item Value Reference Range Interpretation Comments MAGNESIUM (BEAKER) (test code = 2.1 mg/dL 1.6-2.6 627) [id number] 09:22:00 Test Item Value Reference Range Interpretation Comments PHOSPHORUS (BEAKER) (test code = 3.6 mg/dL 2.3-4.7 604) [id number] 09:22:00 Test Item Value Reference Range Interpretation Comments SODIUM (BEAKER) (test code = 381) 140 meq/L 136-145 BASIC METABOLIC [id number] 09:22:00 Test Item Value Reference Range Interpretation Comments SODIUM (BEAKER) 140 meq/L 136-145 (test code = 381) POTASSIUM (BEAKER) 4.9 meq/L 3.5-5.1 (test code = 379) CHLORIDE (BEAKER) 106 meq/L 98-107 (test code = 382) CO2 (BEAKER) (test 21 meq/L 22-29 L code = 355) BLOOD UREA NITROGEN 24 mg/dL 7-21 H (BEAKER) (test code = 354) CREATININE (BEAKER) 1.56 mg/dL 0.57-1.25 H (test code = 358) GLUCOSE RANDOM 147 mg/dL 70-105 H (BEAKER) (test code = 652) CALCIUM (BEAKER) 8.4 mg/dL 8.4-10.2 (test code = 697) EGFR (BEAKER) (test 46 mL/min/1.73 ESTIMA KIMBER GFR IS code = 1092) sq m NOT ACCURATE CREATININE CLEARANCE IN PREDICTING GLOMERULAR FILTRATION RATE . ESTIMATED GFR I S NOT APPLICABLE FOR DIALYSIS PATIEN TS. HEPATIC FUNCTION [id number] 09:22:00 Test Item Value Reference Range Interpretation Comments TOTAL PROTEIN (BEAKER) (test code = 4.7 gm/dL 6.0-8.3 L 770) ALBUMIN (BEAKER) (test code = 1145) 2.7 g/dL 3.5-5.0 L BILIRUBIN TOTAL (BEAKER) (test code 1.8 mg/dL 0.2-1.2 H = 377) BILIRUBIN DIRECT (BEAKER) (test 1.3 mg/dL 0.1-0.5 H code = 706) ALKALINE PHOSPHATASE (BEAKER) (test 112 U/L 40-150 code = 346) AST (SGOT) (BEAKER) (test code = 69 U/L 5-34 H 353) ALT (SGPT) (BEAKER) (test code = 33 U/L 6-55 347) SPUTUM CULTURE + GRAM [id number] 08:37:00 Test Item Value Reference Interpretation Comments Range CULTURE (BEAKER) (test Organism(s) code = 1095) under evaluation Clindamycin (test code S = 10) Erythromycin (test S code = 4) Linezolid (test code = S 40) Nitrofurantoin (test S code = 23) Oxacillin (test code = S 14) Rifampin (test code = S 43) Tetracycline (test S code = 2) Trimethoprim + S Sulfamethoxazole (test code = 47) Vancomycin (test code S = 13) CULTURE (BEAKER) (test A <1+ S taphylococcus code = 1095) aureus GRAM STAIN RESULT 1+ WBCs (BEAKER) (test code = 1123) GRAM STAIN RESULT 0-5 epithelial (BEAKER) (test code = cells 614504) GRAM STAIN RESULT No organisms (BEAKER) (test code = seen 508644) POCT-GLUCOSE [id number] 06:55:00 Test Item Value Reference Range Interpretation Comments POC-GLUCOSE METER 153 mg/dL 70-110 H TESTED AT [facility] [address] (BEAKER) (test code = GENEVIEVE [place] 1538) [address] [id number] 06:01:00 Test Item Value Reference Range Interpretation Comments PROTIME (BEAKER) (test code = 15.4 seconds 11.7-14.7 H 759) INR (BEAKER) (test code = 370) 1.2 <=5.9 PARTIAL THROMBOPLASTIN TIME 34.0 seconds 22.5-36.0 (BEAKER) (test code = 760) RECOMMENDED COUMADIN/WARFARIN INR THERAPY RANGESSTANDARD DOSE: 2.0 - 3.0 Includes: PROPHYLAXIS forvenous thrombosis, systemic embolization; TREATMENT for venous thrombosis and/or pulmonary embolus.HIGH RISK: Target INR is 2.5-3.5 for patients with mechanical heart valves.OXYGEN SATURATION, [id number] 06:01:00 Test Item Value Reference Range Interpretation Comments O2 SATURATION (MEASURED) (BEAKER) 85.1 % (test code = 1455) Obtain from CVP portCALCIUM, [id number] 06:01:00 Test Item Value Reference Range Interpretation Comments CALCIUM IONIZED (BEAKER) (test 1.13 mmol/L 1.12-1.27 code = 698) PH, BLOOD (BEAKER) (test code = 7.41 1810) CBC W/PLT COUNT & AUTO [id number] 05:43:00 Test Item Value Reference Range Interpretation Comments WHITE BLOOD CELL COUNT (BEAKER) 15.8 K/ L 3.5-10.5 H (test code = 775) RED BLOOD CELL COUNT (BEAKER) 2.64 M/ L 4.63-6.08 L (test code = 761) HEMOGLOBIN (BEAKER) (test code = 7.7 GM/DL 13.7-17.5 L 410) HEMATOCRIT (BEAKER) (test code = 23.6 % 40.1-51.0 L 411) MEAN CORPUSCULAR VOLUME (BEAKER) 89.4 fL 79.0-92.2 (test code = 753) MEAN CORPUSCULAR HEMOGLOBIN 29.2 pg 25.7-32.2 (BEAKER) (test code = 751) MEAN CORPUSCULAR HEMOGLOBIN CONC 32.6 GM/DL 32.3-36.5 (BEAKER) (test code = 752) RED CELL DISTRIBUTION WIDTH 15.1 % 11.6-14.4 H (BEAKER) (test code = 412) PLATELET COUNT (BEAKER) (test code 72 K/CU MM 150-450 L = 756) MEAN PLATELET VOLUME (BEAKER) 12.1 fL 9.4-12.4 (test code = 754) NUCLEATED RED BLOOD CELLS (BEAKER) 1 /100 WBC 0-0 H (test code = 413) NEUTROPHILS RELATIVE PERCENT 83 % (BEAKER) (test code = 429) LYMPHOCYTES RELATIVE PERCENT 7 % (BEAKER) (test code = 430) MONOCYTES RELATIVE PERCENT 9 % (BEAKER) (test code = 431) EOSINOPHILS RELATIVE PERCENT 0 % (BEAKER) (test code = 432) BASOPHILS RELATIVE PERCENT 0 % (BEAKER) (test code = 437) NEUTROPHILS ABSOLUTE COUNT 13.18 K/ L 1.78-5.38 H (BEAKER) (test code = 670) LYMPHOCYTES ABSOLUTE COUNT 1.14 K/ L 1.32-3.57 L (BEAKER) (test code = 414) MONOCYTES ABSOLUTE COUNT (BEAKER) 1.34 K/ L 0.30-0.82 H (test code = 415) EOSINOPHILS ABSOLUTE COUNT 0.00 K/ L 0.04-0.54 L (BEAKER) (test code = 416) BASOPHILS ABSOLUTE COUNT (BEAKER) 0.01 K/ L 0.01-0.08 (test code = 417) IMMATURE GRANULOCYTES-RELATIVE 1 % 0-1 PERCENT (BEAKER) (test code = 2801) HEMOGLOBIN AND [id number] 05:41:00 Test Item Value Reference Range Interpretation Comments HEMOGLOBIN (BEAKER) (test code = 7.7 GM/DL 13.7-17.5 L 410) HEMATOCRIT (BEAKER) (test code = 23.6 % 40.1-51.0 L 411) BLOOD GAS, [id number] 05:34:00 Test Item Value Reference Range Interpretation Comments PH ARTERIAL (BEAKER) (test code = 7.46 7.35-7.45 H 383) PCO2 ARTERIAL (BEAKER) (test code 30 mmHg 35-45 L = 384) PO2 ARTERIAL (BEAKER) (test code 186 mmHg 80-90 H = 385) O2 SATURATION ARTERIAL (BEAKER) 99.4 % 96.0-97.0 H (test code = 386) HCO3 ARTERIAL (BEAKER) (test code 21 mmol/L 21-29 = 388) BASE EXCESS ARTERIAL (BEAKER) -2.2 mmol/L -2.0-3.0 L (test code = 387) PATIENT TEMPERATURE (BEAKER) 36.1 C (test code = 1818) FIO2 (BEAKER) (test code = 1819) 25.0 % LACTIC ACID, ARTERIAL, WHOLE [id number] 05:18:00 Test Item Value Reference Range Interpretation Comments LACTATE BLOOD ARTERIAL (2) 0.6 mmol/L 0.5-2.2 (BEAKER) (test code = 2874) Effective 02/25/2016: Units/Reference Range ChangeNew: 0.5-2.2 mmol/L Previous: 5-20 mg/[id number] 01:03:00 Test Item Value Reference Range Interpretation Comments POTASSIUM (BEAKER) (test code = 4.7 meq/L 3.5-5.1 379) HEMOGLOBIN AND [id number] 00:48:00 Test Item Value Reference Range Interpretation Comments HEMOGLOBIN (BEAKER) (test code = 7.9 GM/DL 13.7-17.5 L 410) HEMATOCRIT (BEAKER) (test code = 24.1 % 40.1-51.0 L 411) POCT-GLUCOSE [id number] 23:46:00 Test Item Value Reference Range Interpretation Comments POC-GLUCOSE METER 146 mg/dL 70-110 H TESTED AT [facility] [address] (BEAKER) (test code = [place] 1538) [address] [id number] 20:23:00 Test Item Value Reference Range Interpretation Comments POTASSIUM (BEAKER) (test code = 4.7 meq/L 3.5-5.1 379) PROTHROMBIN [id number] 20:14:00 Test Item Value Reference Range Interpretation Comments PROTIME (BEAKER) (test code = 16.1 seconds 11.7-14.7 H 759) INR (BEAKER) (test code = 370) 1.3 <=5.9 RECOMMENDED COUMADIN/WARFARIN INR THERAPY RANGESSTANDARD DOSE: 2.0 - 3.0 Includes: PROPHYLAXIS forvenous thrombosis, systemic embolization; TREATMENT for venous thrombosis and/or pulmonary embolus.HIGH RISK: Target INR is 2.5-3.5 for patients with mechanical heart valves.[id number] 20:14:00 Test Item Value Reference Range Interpretation Comments PARTIAL THROMBOPLASTIN TIME 36.0 seconds 22.5-36.0 (BEAKER) (test code = 760) CALCIUM, [id number] 20:02:00 Test Item Value Reference Range Interpretation Comments CALCIUM IONIZED (BEAKER) (test 1.14 mmol/L 1.12-1.27 code = 698) PH, BLOOD (BEAKER) (test code = 7.42 1810) HEMOGLOBIN AND [id number] 19:04:00 Test Item Value Reference Range Interpretation Comments HEMOGLOBIN (BEAKER) (test code = 8.0 GM/DL 13.7-17.5 L 410) HEMATOCRIT (BEAKER) (test code = 24.3 % 40.1-51.0 L 411) [id number] 16:46:00 Test Item Value Reference Range Interpretation Comments POTASSIUM (BEAKER) (test code = 5.0 meq/L 3.5-5.1 379) [id number] 16:46:00 Test Item Value Reference Range Interpretation Comments MAGNESIUM (BEAKER) (test code = 2.1 mg/dL 1.6-2.6 627) [id number] 16:46:00 Test Item Value Reference Range Interpretation Comments PHOSPHORUS (BEAKER) (test code = 3.1 mg/dL 2.3-4.7 604) [id number] 16:46:00 Test Item Value Reference Range Interpretation Comments SODIUM (BEAKER) (test code = 381) 138 meq/L 136-145 PLATELET [id number] 16:34:00 Test Item Value Reference Range Interpretation Comments PLATELET COUNT (BEAKER) (test code 57 K/CU MM 150-450 L = 756) BLOOD GAS, [id number] 16:31:00 Test Item Value Reference Range Interpretation Comments PH VENOUS (BEAKER) (test code = 7.43 7.32-7.42 H 701) PCO2 VENOUS (BEAKER) (test code = 38 mmHg 41-51 L 755) PO2 VENOUS (BEAKER) (test code = 40 mmHg 25-40 702) O2 SATURATION VENOUS (BEAKER) 77.3 % 40.0-70.0 H (test code = 703) HCO3 VENOUS (BEAKER) (test code = 25 mmol/L 21-29 705) BASE EXCESS VENOUS (BEAKER) (test 0.4 mmol/L -2.0-3.0 code = 704) PATIENT TEMPERATURE (BEAKER) (test 37.0 C code = 1818) POCT-GLUCOSE [id number] 16:25:00 Test Item Value Reference Range Interpretation Comments POC-GLUCOSE METER 135 mg/dL 70-110 H TESTED AT [facility] 67[address] (BEAKER) (test code = [place] 1538) [address] HEMOGLOBIN AND [id number] 14:50:00 Test Item Value Reference Range Interpretation Comments HEMOGLOBIN (BEAKER) (test code = 7.0 GM/DL 13.7-17.5 L 410) HEMATOCRIT (BEAKER) (test code = 21.1 % 40.1-51.0 L 411) [id number] 12:41:00 Test Item Value Reference Range Interpretation Comments LIPASE (BEAKER) (test code = 749) 44 U/L 8-78 [id number] 12:41:00 Test Item Value Reference Range Interpretation Comments POTASSIUM (BEAKER) (test code = 4.7 meq/L 3.5-5.1 379) LACTIC ACID, ARTERIAL, WHOLE [id number] 12:34:00 Test Item Value Reference Range Interpretation Comments LACTATE BLOOD ARTERIAL (2) 0.6 mmol/L 0.5-2.2 (BEAKER) (test code = 2874) Effective 02/25/2016: Units/Reference Range ChangeNew: 0.5-2.2 mmol/L Previous: 5-20 mg/dLBLOOD GAS, [id number] 12:32:00 Test Item Value Reference Range Interpretation Comments PH ARTERIAL (BEAKER) (test code = 7.49 7.35-7.45 H 383) PCO2 ARTERIAL (BEAKER) (test code 33 mmHg 35-45 L = 384) PO2 ARTERIAL (BEAKER) (test code = 137 mmHg 80-90 H 385) O2 SATURATION ARTERIAL (BEAKER) 98.9 % 96.0-97.0 H (test code = 386) HCO3 ARTERIAL (BEAKER) (test code 24 mmol/L 21-29 = 388) BASE EXCESS ARTERIAL (BEAKER) 0.9 mmol/L -2.0-3.0 (test code = 387) PATIENT TEMPERATURE (BEAKER) (test 37.0 C code = 1818) FIO2 (BEAKER) (test code = 1819) 24.0 % CALCIUM, [id number] 12:32:00 Test Item Value Reference Range Interpretation Comments CALCIUM IONIZED (BEAKER) (test 1.13 mmol/L 1.12-1.27 code = 698) PH, BLOOD (BEAKER) (test code = 7.49 1810) [id number] 12:26:00 Test Item Value Reference Range Interpretation Comments PARTIAL THROMBOPLASTIN TIME 38.8 seconds 22.5-36.0 H (BEAKER) (test code = 760) PROTHROMBIN [id number] 12:25:00 Test Item Value Reference Range Interpretation Comments PROTIME (BEAKER) (test code = 16.4 seconds 11.7-14.7 H 759) INR (BEAKER) (test code = 370) 1.3 <=5.9 RECOMMENDED COUMADIN/WARFARIN INR THERAPY RANGESSTANDARD DOSE: 2.0 - 3.0 Includes: PROPHYLAXIS forvenous thrombosis, systemic embolization; TREATMENT for venous thrombosis and/or pulmonary embolus.HIGH RISK: Target INR is 2.5-3.5 for patients with mechanical heart valves.POCT-GLUCOSE [id number] 12:04:00 Test Item Value Reference Range Interpretation Comments POC-GLUCOSE METER 121 mg/dL 70-110 H TESTED AT [facility] [address] ([facility]) (test code = [place] 1538) [address] HEMOGLOBIN AND [id number] 10:46:00 Test Item Value Reference Range Interpretation Comments HEMOGLOBIN (BEAKER) (test code = 7.1 GM/DL 13.7-17.5 L 410) HEMATOCRIT (BEAKER) (test code = 21.1 % 40.1-51.0 L 411) CALCIUM, [id number] 09:20:00 Test Item Value Reference Range Interpretation Comments CALCIUM IONIZED (BEAKER) (test 1.13 mmol/L 1.12-1.27 code = 698) PH, BLOOD (BEAKER) (test code = 7.44 1810) CBC W/PLT COUNT & AUTO [id number] 08:02:00 Test Item Value Reference Range Interpretation Comments WHITE BLOOD CELL COUNT (BEAKER) 16.8 K/ L 3.5-10.5 H (test code = 775) RED BLOOD CELL COUNT (BEAKER) 2.43 M/ L 4.63-6.08 L (test code = 761) HEMOGLOBIN (BEAKER) (test code = 7.4 GM/DL 13.7-17.5 L 410) HEMATOCRIT (BEAKER) (test code = 21.4 % 40.1-51.0 L 411) MEAN CORPUSCULAR VOLUME (BEAKER) 88.1 fL 79.0-92.2 (test code = 753) MEAN CORPUSCULAR HEMOGLOBIN 30.5 pg 25.7-32.2 (BEAKER) (test code = 751) MEAN CORPUSCULAR HEMOGLOBIN CONC 34.6 GM/DL 32.3-36.5 (BEAKER) (test code = 752) RED CELL DISTRIBUTION WIDTH 14.6 % 11.6-14.4 H (BEAKER) (test code = 412) PLATELET COUNT (BEAKER) (test code 47 K/CU MM 150-450 L = 756) MEAN PLATELET VOLUME (BEAKER) 11.8 fL 9.4-12.4 (test code = 754) NUCLEATED RED BLOOD CELLS (BEAKER) 3 /100 WBC 0-0 H (test code = 413) NEUTROPHILS RELATIVE PERCENT 81 % (BEAKER) (test code = 429) LYMPHOCYTES RELATIVE PERCENT 7 % (BEAKER) (test code = 430) MONOCYTES RELATIVE PERCENT 11 % (BEAKER) (test code = 431) EOSINOPHILS RELATIVE PERCENT 0 % (BEAKER) (test code = 432) BASOPHILS RELATIVE PERCENT 0 % (BEAKER) (test code = 437) NEUTROPHILS ABSOLUTE COUNT 13.49 K/ L 1.78-5.38 H (BEAKER) (test code = 670) LYMPHOCYTES ABSOLUTE COUNT 1.11 K/ L 1.32-3.57 L (BEAKER) (test code = 414) MONOCYTES ABSOLUTE COUNT (BEAKER) 1.88 K/ L 0.30-0.82 H (test code = 415) EOSINOPHILS ABSOLUTE COUNT 0.00 K/ L 0.04-0.54 L (BEAKER) (test code = 416) BASOPHILS ABSOLUTE COUNT (BEAKER) 0.02 K/ L 0.01-0.08 (test code = 417) IMMATURE GRANULOCYTES-RELATIVE 2 % 0-1 H PERCENT (BEAKER) (test code = 2801) (CELLAVISION MANUAL DIFF)2018-07-10 08:02:00 Test Item Value Reference Range Interpretation Comments TOTAL COUNTED (BEAKER) (test code = 1351) WBC MORPHOLOGY (BEAKER) (test code = Normal 487) LARGE PLT(BEAKER) (test code = 2156) Present POLYCHROMATOPHILLIC RBCS(BEAKER) 1+ few (test code = 478) BASIC METABOLIC [id number] 07:43:00 Test Item Value Reference Range Interpretation Comments SODIUM (BEAKER) 136 meq/L 136-145 (test code = 381) POTASSIUM (BEAKER) 4.4 meq/L 3.5-5.1 (test code = 379) CHLORIDE (BEAKER) 106 meq/L 98-107 (test code = 382) CO2 (BEAKER) (test 23 meq/L 22-29 code = 355) BLOOD UREA NITROGEN 29 mg/dL 7-21 H (BEAKER) (test code = 354) CREATININE (BEAKER) 2.03 mg/dL 0.57-1.25 H (test code = 358) GLUCOSE RANDOM 155 mg/dL 70-105 H (BEAKER) (test code = 652) CALCIUM (BEAKER) 8.1 mg/dL 8.4-10.2 L (test code = 697) EGFR (BEAKER) (test 34 mL/min/1.73 ESTIMA KIMBER GFR IS code = 1092) sq m NOT ACCURATE CREATININE CLEARANCE IN PREDICTING GLOMERULAR FILTRATION RATE . ESTIMATED GFR I S NOT APPLICABLE FOR DIALYSIS PATIEN TS. [id number] 07:08:00 Test Item Value Reference Range Interpretation Comments PARTIAL THROMBOPLASTIN TIME 36.9 seconds 22.5-36.0 H (BEAKER) (test code = 760) PROTHROMBIN [id number] 07:07:00 Test Item Value Reference Range Interpretation Comments PROTIME (BEAKER) (test code = 15.9 seconds 11.7-14.7 H 759) INR (BEAKER) (test code = 370) 1.3 <=5.9 RECOMMENDED COUMADIN/WARFARIN INR THERAPY RANGESSTANDARD DOSE: 2.0 - 3.0 Includes: PROPHYLAXIS forvenous thrombosis, systemic embolization; TREATMENT for venous thrombosis and/or pulmonary embolus.HIGH RISK: Target INR is 2.5-3.5 for patients with mechanical heart valves.LACTIC ACID, ARTERIAL, WHOLE BLOOD 2018-07-10 06:57:00 Test Item Value Reference Range Interpretation Comments LACTATE BLOOD ARTERIAL (2) 0.7 mmol/L 0.5-2.2 (BEAKER) (test code = 2874) Effective 02/25/2016: Units/Reference Range ChangeNew: 0.5-2.2 mmol/L Previous: 5-20 mg/dLBLOOD GAS, [id number] 06:53:00 Test Item Value Reference Range Interpretation Comments PH ARTERIAL (BEAKER) (test code = 7.41 7.35-7.45 383) PCO2 ARTERIAL (BEAKER) (test code 41 mmHg 35-45 = 384) PO2 ARTERIAL (BEAKER) (test code = 144 mmHg 80-90 H 385) O2 SATURATION ARTERIAL (BEAKER) 98.9 % 96.0-97.0 H (test code = 386) HCO3 ARTERIAL (BEAKER) (test code 25 mmol/L 21-29 = 388) BASE EXCESS ARTERIAL (BEAKER) 0.7 mmol/L -2.0-3.0 (test code = 387) PATIENT TEMPERATURE (BEAKER) (test 37.0 C code = 1818) FIO2 (BEAKER) (test code = 1819) 30.0 % HEMOGLOBIN AND [id number] 06:42:00 Test Item Value Reference Range Interpretation Comments HEMOGLOBIN (BEAKER) (test code = 7.4 GM/DL 13.7-17.5 L 410) HEMATOCRIT (BEAKER) (test code = 22.4 % 40.1-51.0 L 411) POCT-GLUCOSE [id number] 06:33:00 Test Item Value Reference Range Interpretation Comments POC-GLUCOSE METER 159 mg/dL 70-110 H TESTED AT [facility] 6720 (BEAKER) (test code = [place]E [place] 1535) [address] CALCIUM, [id number] 04:45:00 Test Item Value Reference Range Interpretation Comments CALCIUM IONIZED (BEAKER) (test 1.12 mmol/L 1.12-1.27 code = 698) PH, BLOOD (BEAKER) (test code = 7.42 1810) [id number] 04:42:00 Test Item Value Reference Range Interpretation Comments MAGNESIUM (BEAKER) 2.4 mg/dL 1.6-2.6 Specimen slightly (test code = 627) hemolyzed [id number] 04:42:00 Test Item Value Reference Range Interpretation Comments POTASSIUM (BEAKER) 4.7 meq/L 3.5-5.1 Specimen slightly (test code = 379) hemolyzed HEPATIC FUNCTION [id number] 04:42:00 Test Item Value Reference Range Interpretation Comments TOTAL PROTEIN (BEAKER) 4.2 gm/dL 6.0-8.3 L Speci men slightly (test code = 770) hemolyzed ALBUMIN (BEAKER) (test 2.4 g/dL 3.5-5.0 L Speci men slightly code = 1145) hemolyzed BILIRUBIN TOTAL 2.1 mg/dL 0.2-1.2 H Specimen sli ghtly (BEAKER) (test code = hemoly zed 377) BILIRUBIN DIRECT 1.4 mg/dL 0.1-0.5 H Specimen sl ightly (BEAKER) (test code = hemoly zed 706) ALKALINE PHOSPHATASE 108 U/L 40-150 (BEAKER) (test code = 346) AST (SGOT) (BEAKER) 86 U/L 5-34 H Specimen slightly (test code = 353) hemolyzed ALT (SGPT) (BEAKER) 36 U/L 6-55 Specimen slightly (test code = 347) hemolyzed OXYGEN SATURATION, [id number] 04:35:00 Test Item Value Reference Range Interpretation Comments O2 SATURATION (MEASURED) (BEAKER) 95.5 % (test code = 1455) Obtain from CVP portLACTIC ACID, ARTERIAL, WHOLE [id number] 01:05:00 Test Item Value Reference Range Interpretation Comments LACTATE BLOOD ARTERIAL (2) 0.6 mmol/L 0.5-2.2 (BEAKER) (test code = 2874) Effective 02/25/2016: Units/Reference Range ChangeNew: 0.5-2.2 mmol/L Previous: 5-20 mg/dLBLOOD GAS, [id number] 00:41:00 Test Item Value Reference Range Interpretation Comments PH ARTERIAL (BEAKER) (test code = 7.42 7.35-7.45 383) PCO2 ARTERIAL (BEAKER) (test code 40 mmHg 35-45 = 384) PO2 ARTERIAL (BEAKER) (test code = 230 mmHg 80-90 H 385) O2 SATURATION ARTERIAL (BEAKER) 99.5 % 96.0-97.0 H (test code = 386) HCO3 ARTERIAL (BEAKER) (test code 25 mmol/L 21-29 = 388) BASE EXCESS ARTERIAL (BEAKER) 0.5 mmol/L -2.0-3.0 (test code = 387) PATIENT TEMPERATURE (BEAKER) (test 37.0 C code = 1818) FIO2 (BEAKER) (test code = 1819) 50.0 % CALCIUM, [id number] 00:41:00 Test Item Value Reference Range Interpretation Comments CALCIUM IONIZED (BEAKER) (test 1.12 mmol/L 1.12-1.27 code = 698) PH, BLOOD (BEAKER) (test code = 7.42 1810) [id number] 00:25:00 Test Item Value Reference Range Interpretation Comments POTASSIUM (BEAKER) (test code = 4.7 meq/L 3.5-5.1 379) [id number] 00:20:00 Test Item Value Reference Range Interpretation Comments PARTIAL THROMBOPLASTIN TIME 36.5 seconds 22.5-36.0 H (BEAKER) (test code = 760) PROTHROMBIN [id number] 00:19:00 Test Item Value Reference Range Interpretation Comments PROTIME (BEAKER) (test code = 16.4 seconds 11.7-14.7 H 759) INR (BEAKER) (test code = 370) 1.3 <=5.9 RECOMMENDED COUMADIN/WARFARIN INR THERAPY RANGESSTANDARD DOSE: 2.0 - 3.0 Includes: PROPHYLAXIS forvenous thrombosis, systemic embolization; TREATMENT for venous thrombosis and/or pulmonary embolus.HIGH RISK: Target INR is 2.5-3.5 for patients with mechanical heart valves.POCT-GLUCOSE [id number] 00:12:00 Test Item Value Reference Range Interpretation Comments POC-GLUCOSE METER 186 mg/dL 70-110 H TESTED AT [facility] 67[address] (BEAKER) (test code = [place] 1538) [address] HEMOGLOBIN AND [id number] 00:08:00 Test Item Value Reference Range Interpretation Comments HEMOGLOBIN (BEAKER) (test code = 7.9 GM/DL 13.7-17.5 L 410) HEMATOCRIT (BEAKER) (test code = 23.1 % 40.1-51.0 L 411) [id number] 19:56:00 Test Item Value Reference Range Interpretation Comments POTASSIUM (BEAKER) (test code = 4.9 meq/L 3.5-5.1 379) [id number] 19:56:00 Test Item Value Reference Range Interpretation Comments MAGNESIUM (BEAKER) (test code = 2.2 mg/dL 1.6-2.6 627) [id number] 19:56:00 Test Item Value Reference Range Interpretation Comments PHOSPHORUS (BEAKER) (test code = 3.8 mg/dL 2.3-4.7 604) [id number] 19:56:00 Test Item Value Reference Range Interpretation Comments SODIUM (BEAKER) (test code = 381) 137 meq/L 136-145 BASIC METABOLIC [id number] 19:56:00 Test Item Value Reference Range Interpretation Comments SODIUM (BEAKER) 137 meq/L 136-145 (test code = 381) POTASSIUM (BEAKER) 4.9 meq/L 3.5-5.1 (test code = 379) CHLORIDE (BEAKER) 107 meq/L 98-107 (test code = 382) CO2 (BEAKER) (test 24 meq/L 22-29 code = 355) BLOOD UREA NITROGEN 28 mg/dL 7-21 H (BEAKER) (test code = 354) CREATININE (BEAKER) 2.26 mg/dL 0.57-1.25 H (test code = 358) GLUCOSE RANDOM 162 mg/dL 70-105 H (BEAKER) (test code = 652) CALCIUM (BEAKER) 8.2 mg/dL 8.4-10.2 L (test code = 697) EGFR (BEAKER) (test 30 mL/min/1.73 ESTIMA KIMBER GFR IS code = 1092) sq m NOT ACCURATE CREATININE CLEARANCE IN PREDICTING GLOMERULAR FILTRATION RATE . ESTIMATED GFR I S NOT APPLICABLE FOR DIALYSIS PATIEN TS. CBC W/PLT COUNT & AUTO [id number] 19:56:00 Test Item Value Reference Range Interpretation Comments WHITE BLOOD CELL COUNT (BEAKER) 18.8 K/ L 3.5-10.5 H (test code = 775) RED BLOOD CELL COUNT (BEAKER) 2.49 M/ L 4.63-6.08 L (test code = 761) HEMOGLOBIN (BEAKER) (test code = 7.5 GM/DL 13.7-17.5 L 410) HEMATOCRIT (BEAKER) (test code = 21.5 % 40.1-51.0 L 411) MEAN CORPUSCULAR VOLUME (BEAKER) 86.3 fL 79.0-92.2 (test code = 753) MEAN CORPUSCULAR HEMOGLOBIN 30.1 pg 25.7-32.2 (BEAKER) (test code = 751) MEAN CORPUSCULAR HEMOGLOBIN CONC 34.9 GM/DL 32.3-36.5 (BEAKER) (test code = 752) RED CELL DISTRIBUTION WIDTH 14.6 % 11.6-14.4 H (BEAKER) (test code = 412) PLATELET COUNT (BEAKER) (test code 54 K/CU MM 150-450 L = 756) MEAN PLATELET VOLUME (BEAKER) 12.0 fL 9.4-12.4 (test code = 754) NUCLEATED RED BLOOD CELLS (BEAKER) 3 /100 WBC 0-0 H (test code = 413) NEUTROPHILS RELATIVE PERCENT 79 % (BEAKER) (test code = 429) LYMPHOCYTES RELATIVE PERCENT 8 % (BEAKER) (test code = 430) MONOCYTES RELATIVE PERCENT 12 % (BEAKER) (test code = 431) EOSINOPHILS RELATIVE PERCENT 0 % (BEAKER) (test code = 432) BASOPHILS RELATIVE PERCENT 0 % (BEAKER) (test code = 437) NEUTROPHILS ABSOLUTE COUNT 14.84 K/ L 1.78-5.38 H (BEAKER) (test code = 670) LYMPHOCYTES ABSOLUTE COUNT 1.57 K/ L 1.32-3.57 (BEAKER) (test code = 414) MONOCYTES ABSOLUTE COUNT (BEAKER) 2.18 K/ L 0.30-0.82 H (test code = 415) EOSINOPHILS ABSOLUTE COUNT 0.01 K/ L 0.04-0.54 L (BEAKER) (test code = 416) BASOPHILS ABSOLUTE COUNT (BEAKER) 0.01 K/ L 0.01-0.08 (test code = 417) IMMATURE GRANULOCYTES-RELATIVE 1 % 0-1 PERCENT (BEAKER) (test code = 2801) CALCIUM, [id number] 19:41:00 Test Item Value Reference Range Interpretation Comments CALCIUM IONIZED (BEAKER) (test 1.13 mmol/L 1.12-1.27 code = 698) PH, BLOOD (BEAKER) (test code = 7.45 1810) LACTIC ACID, ARTERIAL, WHOLE [id number] 18:09:00 Test Item Value Reference Range Interpretation Comments LACTATE BLOOD ARTERIAL (2) 0.6 mmol/L 0.5-2.2 (BEAKER) (test code = 2874) Effective 02/25/2016: Units/Reference Range ChangeNew: 0.5-2.2 mmol/L Previous: 5-20 mg/[id number] 18:09:00 Test Item Value Reference Range Interpretation Comments TRIGLYCERIDES (BEAKER) (test code = 259 mg/dL 540) TRIGLYCERIDE REFERENCE RANGELow Risk <150Borderline Risk 150-199High Risk 200-499Very High Risk>=[id number] 18:05:00 Test Item Value Reference Range Interpretation Comments PARTIAL THROMBOPLASTIN TIME 35.6 seconds 22.5-36.0 (BEAKER) (test code = 760) PROTHROMBIN [id number] 18:04:00 Test Item Value Reference Range Interpretation Comments PROTIME (BEAKER) (test code = 16.2 seconds 11.7-14.7 H 759) INR (BEAKER) (test code = 370) 1.3 <=5.9 RECOMMENDED COUMADIN/WARFARIN INR THERAPY RANGESSTANDARD DOSE: 2.0 - 3.0 Includes: PROPHYLAXIS forvenous thrombosis, systemic embolization; TREATMENT for venous thrombosis and/or pulmonary embolus.HIGH RISK: Target INR is 2.5-3.5 for patients with mechanical heart valves.HEMOGLOBIN AND [id number] 17:52:00 Test Item Value Reference Range Interpretation Comments HEMOGLOBIN (BEAKER) (test code = 7.9 GM/DL 13.7-17.5 L 410) HEMATOCRIT (BEAKER) (test code = 22.4 % 40.1-51.0 L 411) BLOOD GAS, [id number] 17:48:00 Test Item Value Reference Range Interpretation Comments PH ARTERIAL (BEAKER) (test code = 7.42 7.35-7.45 383) PCO2 ARTERIAL (BEAKER) (test code 42 mmHg 35-45 = 384) PO2 ARTERIAL (BEAKER) (test code = 189 mmHg 80-90 H 385) O2 SATURATION ARTERIAL (BEAKER) 99.3 % 96.0-97.0 H (test code = 386) HCO3 ARTERIAL (BEAKER) (test code 26 mmol/L 21-29 = 388) BASE EXCESS ARTERIAL (BEAKER) 1.4 mmol/L -2.0-3.0 (test code = 387) PATIENT TEMPERATURE (BEAKER) (test 37.5 C code = 1818) FIO2 (BEAKER) (test code = 1819) 50.0 % POCT-GLUCOSE [id number] 17:45:00 Test Item Value Reference Range Interpretation Comments POC-GLUCOSE METER 184 mg/dL 70-110 H TESTED AT [facility] 67[address] (BEAKER) (test code = [place] 1538) [address] [id number] 16:05:00 Test Item Value Reference Range Interpretation Comments POTASSIUM (BEAKER) (test code = 4.9 meq/L 3.5-5.1 379) CALCIUM, [id number] 15:53:00 Test Item Value Reference Range Interpretation Comments CALCIUM IONIZED (BEAKER) (test 1.18 mmol/L 1.12-1.27 code = 698) PH, BLOOD (BEAKER) (test code = 7.42 1810) [id number] 12:36:00 Test Item Value Reference Range Interpretation Comments PARTIAL THROMBOPLASTIN TIME 39.8 seconds 22.5-36.0 H (BEAKER) (test code = 760) PROTHROMBIN [id number] 12:35:00 Test Item Value Reference Range Interpretation Comments PROTIME (BEAKER) (test code = 16.7 seconds 11.7-14.7 H 759) INR (BEAKER) (test code = 370) 1.4 <=5.9 RECOMMENDED COUMADIN/WARFARIN INR THERAPY RANGESSTANDARD DOSE: 2.0 - 3.0 Includes: PROPHYLAXIS forvenous thrombosis, systemic embolization; TREATMENT for venous thrombosis and/or pulmonary embolus.HIGH RISK: Target INR is 2.5-3.5 for patients with mechanical heart valves.LACTIC ACID, ARTERIAL, WHOLE BLOOD 2018-07-09 12:35:00 Test Item Value Reference Range Interpretation Comments LACTATE BLOOD ARTERIAL (2) 1.1 mmol/L 0.5-2.2 (BEAKER) (test code = 2874) Effective 02/25/2016: Units/Reference Range ChangeNew: 0.5-2.2 mmol/L Previous: 5-20 mg/[id number] 12:34:00 Test Item Value Reference Range Interpretation Comments POTASSIUM (BEAKER) (test code = 4.6 meq/L 3.5-5.1 379) BLOOD GAS, [id number] 12:17:00 Test Item Value Reference Range Interpretation Comments PH ARTERIAL (BEAKER) (test code = 7.37 7.35-7.45 383) PCO2 ARTERIAL (BEAKER) (test code 45 mmHg 35-45 = 384) PO2 ARTERIAL (BEAKER) (test code 160 mmHg 80-90 H = 385) O2 SATURATION ARTERIAL (BEAKER) 99.0 % 96.0-97.0 H (test code = 386) HCO3 ARTERIAL (BEAKER) (test code 25 mmol/L 21-29 = 388) BASE EXCESS ARTERIAL (BEAKER) -0.2 mmol/L -2.0-3.0 (test code = 387) PATIENT TEMPERATURE (BEAKER) 37.0 C (test code = 1818) FIO2 (BEAKER) (test code = 1819) 50.0 % HEMOGLOBIN AND [id number] 12:17:00 Test Item Value Reference Range Interpretation Comments HEMOGLOBIN (BEAKER) (test code = 9.6 GM/DL 13.7-17.5 L 410) HEMATOCRIT (BEAKER) (test code = 27.3 % 40.1-51.0 L 411) CALCIUM, [id number] 12:17:00 Test Item Value Reference Range Interpretation Comments CALCIUM IONIZED (BEAKER) (test 1.13 mmol/L 1.12-1.27 code = 698) PH, BLOOD (BEAKER) (test code = 7.37 1810) OXYGEN SATURATION, [id number] 12:16:00 Test Item Value Reference Range Interpretation Comments O2 SATURATION (MEASURED) (BEAKER) 81.6 % (test code = 1455) Obtain from CVP portRAD, CHEST, 1 VIEW, NON [id number] 12:16:00Reason for exam:->assess for pulmonary edemaShould this be performed at the bedside?->YesFINAL REPORT Portable chest. CLINICAL HISTORY: assess for [...] CHF. Signed: Sharath Serra MDReport Verified Date/Time: 07/09/2018 12:16:49 Reading Location: [address] Body Reading Room -GLUCOSE [id number] 12:06:00 Test Item Value Reference Range Interpretation Comments POC-GLUCOSE METER 209 mg/dL 70-110 H TESTED AT [facility] 67[address] ([facility]) (test code = [facility] 1538) [id number] HEMOGLOBIN AND [id number] 10:33:00 Test Item Value Reference Range Interpretation Comments HEMOGLOBIN (BEAKER) (test code = 10.4 GM/DL 13.7-17.5 L 410) HEMATOCRIT (BEAKER) (test code = 29.6 % 40.1-51.0 L 411) THROMBOELASTOGRAPH (TEG)2018-07-09 10:31:00 Test Item Value Reference Range Interpretation Comments TEG ACTIVATED CLOTTING TIME 4.7 minutes 4.0-7.0 (BEAKER) (test code = 1407) TEG FIBRINOGEN ACTIVITY (BEAKER) 69.6 degrees 61.0-73.0 (test code = 1408) TEG PLT. AGGREGATION (BEAKER) 55.6 MM 55.0-65.0 (test code = 1409) TEG FIBRINOLYSIS (BEAKER) (test 0.0 % 0.0-5.0 code = 1410) TGH ACTIVATED CLOTTING TIME 4.8 minutes 4.0-7.0 (BEAKER) (test code = 1411) TGH FIBRINOGEN ACTIVITY (BEAKER) 65.6 degrees 61.0-73.0 (test code = 1412) TGH PLT. AGGREGATION (BEAKER) 52.4 MM 55.0-65.0 L (test code = 1413) TGH FIBRINOLYSIS (BEAKER) (test 0.0 % 0.0-5.0 code = 1414) BLOOD GAS, [id number] 09:22:00 Test Item Value Reference Range Interpretation Comments PH ARTERIAL (BEAKER) (test code = 7.50 7.35-7.45 H 383) PCO2 ARTERIAL (BEAKER) (test code 28 mm Hg 35-45 L = 384) PO2 ARTERIAL (BEAKER) (test code 230 mm Hg 80-90 H = 385) O2 SATURATION ARTERIAL (BEAKER) 99.6 % 96.0-97.0 H (test code = 386) HCO3 ARTERIAL (BEAKER) (test code 21 mmol/L 21-29 = 388) BASE EXCESS ARTERIAL (BEAKER) -0.9 mmol/L -2.0-3.0 (test code = 387) PATIENT TEMPERATURE (BEAKER) 37.0 (test code = 1818) FIO2 (BEAKER) (test code = 1819) 60 [id number] 08:58:00 Test Item Value Reference Range Interpretation Comments POTASSIUM (BEAKER) (test code = 4.7 meq/L 3.5-5.1 379) [id number] 08:58:00 Test Item Value Reference Range Interpretation Comments MAGNESIUM (BEAKER) (test code = 2.2 mg/dL 1.6-2.6 627) [id number] 08:58:00 Test Item Value Reference Range Interpretation Comments PHOSPHORUS (BEAKER) (test code = 3.4 mg/dL 2.3-4.7 604) [id number] 08:58:00 Test Item Value Reference Range Interpretation Comments SODIUM (BEAKER) (test code = 381) 136 meq/L 136-145 LACTIC ACID, ARTERIAL, WHOLE [id number] 08:55:00 Test Item Value Reference Range Interpretation Comments LACTATE BLOOD ARTERIAL (2) 1.9 mmol/L 0.5-2.2 (BEAKER) (test code = 2874) Effective 02/25/2016: Units/Reference Range ChangeNew: 0.5-2.2 mmol/L Previous: 5-20 mg/dLCBC W/PLT COUNT & AUTO [id number] 08:46:00 Test Item Value Reference Range Interpretation Comments WHITE BLOOD CELL COUNT (BEAKER) 24.9 K/ L 3.5-10.5 H (test code = 775) RED BLOOD CELL COUNT (BEAKER) 3.45 M/ L 4.63-6.08 L (test code = 761) HEMOGLOBIN (BEAKER) (test code = 10.2 GM/DL 13.7-17.5 L 410) HEMATOCRIT (BEAKER) (test code = 29.6 % 40.1-51.0 L 411) MEAN CORPUSCULAR VOLUME (BEAKER) 85.8 fL 79.0-92.2 (test code = 753) MEAN CORPUSCULAR HEMOGLOBIN 29.6 pg 25.7-32.2 (BEAKER) (test code = 751) MEAN CORPUSCULAR HEMOGLOBIN CONC 34.5 GM/DL 32.3-36.5 (BEAKER) (test code = 752) RED CELL DISTRIBUTION WIDTH 14.1 % 11.6-14.4 (BEAKER) (test code = 412) PLATELET COUNT (BEAKER) (test code 62 K/CU MM 150-450 L = 756) MEAN PLATELET VOLUME (BEAKER) 11.4 fL 9.4-12.4 (test code = 754) NUCLEATED RED BLOOD CELLS (BEAKER) 0 /100 WBC 0-0 (test code = 413) (CELLAVISION MANUAL DIFF)2018-07-09 08:46:00 Test Item Value Reference Range Interpretation Comments NEUTROPHILS - REL 86 % (CELLAVISION)(BEAKER) (test code = 2816) LYMPHOCYTES - REL 2 % (CELLAVISION)(BEAKER) (test code = 2817) MONOCYTES - REL 2 % (CELLAVISION)(BEAKER) (test code = 2818) BANDS - REL (CELLAVISION)(BEAKER) 10 % 0-10 (test code = 2826) NEUTROPHILS - ABS 21.41 K/ul 1.78-5.38 H (CELLAVISION)(BEAKER) (test code = 2830) LYMPHOCYTES - ABS 0.50 K/ul 1.32-3.57 L (CELLAVISION)(BEAKER) (test code = 2831) MONOCYTES - ABS 0.50 K/uL 0.30-0.82 (CELLAVISION)(BEAKER) (test code = 2832) BANDS - ABS (CELLAVISION)(BEAKER) 2.49 K/uL 0.00-0.80 H (test code = 2840) TOTAL COUNTED (BEAKER) (test code 100 = 1351) MANUAL NRBC PER 100 CELLS 1 /100 WBC 0-0 H (BEAKER) (test code = 1353) WBC MORPHOLOGY (BEAKER) (test Normal code = 487) PLT MORPHOLOGY (BEAKER) (test Normal code = 486) POLYCHROMATOPHILLIC RBCS(BEAKER) 2+ moderate (test code = 478) ANISOCYTOSIS (BEAKER) (test code 2+ moderate = 961) POIKILOCYTES (BEAKER) (test code 2+ moderate = 966) ARTIFACT (CELLAVISION)(BEAKER) Present (test code = 3432) PLATELET CONCENTRATION Decreased (CELLAVISION)(BEAKER) (test code = 3438) Received comment: User comments: Slide comments:HEMOGLOBIN AND HEMATOCRIT 2018-07-09 08:43:00 Test Item Value Reference Range Interpretation Comments HEMOGLOBIN (BEAKER) (test code = 10.9 GM/DL 13.7-17.5 L 410) HEMATOCRIT (BEAKER) (test code = 31.0 % 40.1-51.0 L 411) CALCIUM, [id number] 08:30:00 Test Item Value Reference Range Interpretation Comments CALCIUM IONIZED (BEAKER) (test 1.17 mmol/L 1.12-1.27 code = 698) PH, BLOOD (BEAKER) (test code = 7.50 1810) PH, [id number] 08:30:00 Test Item Value Reference Range Interpretation Comments PH ARTERIAL (BEAKER) (test code = 383) 7.50 7.35-7.45 H POCT-GLUCOSE [id number] 08:26:00 Test Item Value Reference Range Interpretation Comments POC-GLUCOSE METER 180 mg/dL 70-110 H TESTED AT [facility] 6720 (BEAKER) (test code = [place] 1538) [address] ANG, EMBOLIZATION, EXTENSIVE - [id number] 07:11:00Reason for exam:- >upper GI bleedFINAL REPORT Exam: Visceral arteriogram and [...] MDReport Verified Date/Time: 07/09/2018 07:11:14 Reading Location: [place] [address] Angio Body Reading Room CALCIUM, [id number] 07:06:00 Test Item Value Reference Range Interpretation Comments CALCIUM IONIZED (BEAKER) (test 1.10 mmol/L 1.12-1.27 L code = 698) PH, BLOOD (BEAKER) (test code = 7.42 1810) MRSA [id number] 06:59:00 Test Item Value Reference Range Interpretation Comments CULTURE (BEAKER) (test code No MRSA isolated = 1095) [id number] 06:24:00 Test Item Value Reference Range Interpretation Comments D-DIMER QUANTITATIVE (BEAKER) 4.16 MG/L FEU <0.50 H (test code = 671) Intended Use: The D-Dimer Assay can be used to aid in the diagnosis of Deep Vein Thrombosis (DVT) and Pulmonary Embolism Disease (PED).In patients with low pre- test probability, various studies concerning STA Liatest D-dimer test have reported that with a cutoff value of 0.50 MG/L FEU, the Negative Predictive Value (NPV) regarding the exclusion of thrombosis is within 95-100% range. [id number] 06:20:00 Test Item Value Reference Range Interpretation Comments FIBRINOGEN LEVEL (BEAKER) (test 128 mg/dl 225-434 L code = 658) HEPATIC FUNCTION [id number] 06:16:00 Test Item Value Reference Range Interpretation Comments TOTAL PROTEIN (BEAKER) (test code = 3.3 gm/dL 6.0-8.3 L 770) ALBUMIN (BEAKER) (test code = 1145) 1.9 g/dL 3.5-5.0 L BILIRUBIN TOTAL (BEAKER) (test code 2.3 mg/dL 0.2-1.2 H = 377) BILIRUBIN DIRECT (BEAKER) (test 1.8 mg/dL 0.1-0.5 H code = 706) ALKALINE PHOSPHATASE (BEAKER) (test 89 U/L 40-150 code = 346) AST (SGOT) (BEAKER) (test code = 56 U/L 5-34 H 353) ALT (SGPT) (BEAKER) (test code = 28 U/L 6-55 347) [id number] 06:15:00 Test Item Value Reference Range Interpretation Comments PROTIME (BEAKER) (test code = 20.6 seconds 11.7-14.7 H 759) INR (BEAKER) (test code = 370) 1.8 <=5.9 PARTIAL THROMBOPLASTIN TIME 39.3 seconds 22.5-36.0 H (BEAKER) (test code = 760) RECOMMENDED COUMADIN/WARFARIN INR THERAPY RANGESSTANDARD DOSE: 2.0 - 3.0 Includes: PROPHYLAXIS forvenous thrombosis, systemic embolization; TREATMENT for venous thrombosis and/or pulmonary embolus.HIGH RISK: Target INR is 2.5-3.5 for patients with mechanical heart valves.BASIC METABOLIC [id number] 06:12:00 Test Item Value Reference Range Interpretation Comments SODIUM (BEAKER) 136 meq/L 136-145 (test code = 381) POTASSIUM (BEAKER) 4.8 meq/L 3.5-5.1 (test code = 379) CHLORIDE (BEAKER) 110 meq/L 98-107 H (test code = 382) CO2 (BEAKER) (test 20 meq/L 22-29 L code = 355) BLOOD UREA NITROGEN 25 mg/dL 7-21 H (BEAKER) (test code = 354) CREATININE (BEAKER) 2.09 mg/dL 0.57-1.25 H (test code = 358) GLUCOSE RANDOM 183 mg/dL 70-105 H (BEAKER) (test code = 652) CALCIUM (BEAKER) 8.0 mg/dL 8.4-10.2 L (test code = 697) EGFR (BEAKER) (test 33 mL/min/1.73 ESTIMA KIMBER GFR IS code = 1092) sq m NOT ACCURATE CREATININE CLEARANCE IN PREDICTING GLOMERULAR FILTRATION RATE . ESTIMATED GFR I S NOT APPLICABLE FOR DIALYSIS PATIEN TS. [id number] 06:12:00 Test Item Value Reference Range Interpretation Comments MAGNESIUM (BEAKER) (test code = 1.7 mg/dL 1.6-2.6 627) [id number] 06:12:00 Test Item Value Reference Range Interpretation Comments POTASSIUM (BEAKER) (test code = 4.8 meq/L 3.5-5.1 379) [id number] 06:12:00 Test Item Value Reference Range Interpretation Comments SODIUM (BEAKER) (test code = 381) 136 meq/L 136-145 PLATELET [id number] 05:53:00 Test Item Value Reference Range Interpretation Comments PLATELET COUNT (BEAKER) (test code 62 K/CU MM 150-450 L = 756) HEMOGLOBIN AND [id number] 05:53:00 Test Item Value Reference Range Interpretation Comments HEMOGLOBIN (BEAKER) (test code = 10.2 GM/DL 13.7-17.5 L 410) HEMATOCRIT (BEAKER) (test code = 29.6 % 40.1-51.0 L 411) THROMBOELASTOGRAPH (TEG)2018-07-09 04:19:00 Test Item Value Reference Range Interpretation Comments TEG ACTIVATED CLOTTING TIME 3.2 minutes 4.0-7.0 L (BEAKER) (test code = 1407) TEG FIBRINOGEN ACTIVITY (BEAKER) 61.7 degrees 61.0-73.0 (test code = 1408) TEG PLT. AGGREGATION (BEAKER) 43.9 MM 55.0-65.0 L (test code = 1409) TEG FIBRINOLYSIS (BEAKER) (test 0.0 % 0.0-5.0 code = 1410) TGH ACTIVATED CLOTTING TIME 3.2 minutes 4.0-7.0 L (BEAKER) (test code = 1411) TGH FIBRINOGEN ACTIVITY (BEAKER) 64.3 degrees 61.0-73.0 (test code = 1412) TGH PLT. AGGREGATION (BEAKER) 43.5 MM 55.0-65.0 L (test code = 1413) TGH FIBRINOLYSIS (BEAKER) (test 0.0 % 0.0-5.0 code = 1414) POCT-BLOOD GASES, [id number] 03:55:00 Test Item Value Reference Range Interpretation Comments TEMP, CELSIUS-POC 36.1 (BEAKER) (test code = 1834) FIO2-POC (BEAKER) 60 TESTED AT [facility] 6720 (test code = 1835) [place] [address] PH, ARTERIAL-POC 7.337 7.350-7.450 L (BEAKER) (test code = 1836) PCO2, ARTERIAL-POC 42.1 mm Hg 35.0-45.0 (BEAKER) (test code = 1837) PO2, ARTERIAL-POC 95.0 mm Hg 80.0-90.0 H (BEAKER) (test code = 1838) SO2, ARTERIAL-POC 97.0 % 96.0-97.0 (BEAKER) (test code = 1839) HCO3, ARTERIAL-POC 22.8 meq/L 21.0-29.0 (BEAKER) (test code = 1840) BASE EXCESS, -3.0 meq/L -2.0-3.0 L ARTERIAL-POC (BEAKER) (test code = 1841) [id number] 03:55:00 Test Item Value Reference Range Interpretation Comments POC-SODIUM (BEAKER) 139 meq/L 135-148 TESTED A [place] [address] (test code = 1542) [facility] [address] [id number] 03:55:00 Test Item Value Reference Range Interpretation Comments POC-POTASSIUM 4.7 meq/L 3.6-5.5 TESTED AT [place] [address] (BEAKER) (test code [facility] [address] = 1540) [id number] 03:55:00 Test Item Value Reference Range Interpretation Comments POC-GLUCOSE (BEAKER) 175 mg/dL 70-110 H TESTED AT [place] [address] (test code = 1855) [facility] [address] POCT-CALCIUM [id number] 03:55:00 Test Item Value Reference Range Interpretation Comments POC-CALCIUM IONIZED 1.27 mmol/L 1.12-1.27 TESTED [place] [address] (BEAKER) (test code = [facility] 1536) [id number] 03:55:00 Test Item Value Reference Range Interpretation Comments POC-HEMATOCRIT 26 % 40-50 L TESTED AT [place] [address] ([facility] (test code = [facility] [address] 1852) [id number] 03:55:00 Test Item Value Reference Range Interpretation Comments POC-HEMOGLOBIN 8.8 g/dL 13.0-16.8 L TESTED AT [place] [address] (BEAKER) (test code = [facility] 1856) [id number] AT [place] [address] [facility] [address] CALCIUM, [id number] 02:37:00 Test Item Value Reference Range Interpretation Comments CALCIUM IONIZED (BEAKER) (test 1.94 mmol/L 1.12-1.27 HH code = 698) PH, BLOOD (BEAKER) (test code = 7.26 1810) BLOOD GAS, [id number] 02:30:00 Test Item Value Reference Range Interpretation Comments PH ARTERIAL (BEAKER) (test code = 7.26 7.35-7.45 L 383) PCO2 ARTERIAL (BEAKER) (test code 41 mmHg 35-45 = 384) PO2 ARTERIAL (BEAKER) (test code 186 mmHg 80-90 H = 385) O2 SATURATION ARTERIAL (BEAKER) 99.1 % 96.0-97.0 H (test code = 386) HCO3 ARTERIAL (BEAKER) (test code 18 mmol/L 21-29 L = 388) BASE EXCESS ARTERIAL (BEAKER) -8.5 mmol/L -2.0-3.0 L (test code = 387) PATIENT TEMPERATURE (BEAKER) 37.0 C (test code = 1818) FIO2 (BEAKER) (test code = 1819) 100.0 % THROMBOELASTOGRAPH (TEG)2018-07-09 02:15:00 Test Item Value Reference Range Interpretation Comments TEG ACTIVATED CLOTTING TIME 4.1 minutes 4.0-7.0 (BEAKER) (test code = 1407) TEG FIBRINOGEN ACTIVITY (BEAKER) 71.0 degrees 61.0-73.0 (test code = 1408) TEG PLT. AGGREGATION (BEAKER) 55.1 MM 55.0-65.0 (test code = 1409) TEG FIBRINOLYSIS (BEAKER) (test 1.2 % 0.0-5.0 code = 1410) TGH ACTIVATED CLOTTING TIME 4.2 minutes 4.0-7.0 (BEAKER) (test code = 1411) TGH FIBRINOGEN ACTIVITY (BEAKER) 69.7 degrees 61.0-73.0 (test code = 1412) TGH PLT. AGGREGATION (BEAKER) 51.5 MM 55.0-65.0 L (test code = 1413) TGH FIBRINOLYSIS (BEAKER) (test 0.0 % 0.0-5.0 code = 1414) [id number] 01:54:00 Test Item Value Reference Range Interpretation Comments POTASSIUM (BEAKER) (test code = 3.9 meq/L 3.5-5.1 379) [id number] 01:54:00 Test Item Value Reference Range Interpretation Comments SODIUM (BEAKER) (test code = 381) 138 meq/L 136-145 PLATELET [id number] 01:46:00 Test Item Value Reference Range Interpretation Comments PLATELET COUNT (BEAKER) (test code 69 K/CU MM 150-450 L = 756) HEMOGLOBIN AND [id number] 01:46:00 Test Item Value Reference Range Interpretation Comments HEMOGLOBIN (BEAKER) (test code = 9.0 GM/DL 13.7-17.5 L 410) HEMATOCRIT (BEAKER) (test code = 27.4 % 40.1-51.0 L 411) POCT-BLOOD GASES, [id number] 01:27:00 Test Item Value Reference Range Interpretation Comments TEMP, CELSIUS-POC 36.4 (BEAKER) (test code = 1834) FIO2-POC (BEAKER) TESTED AT [place] [address] (test code = 1835) [place] [address] PH, ARTERIAL-POC 7.194 7.350-7.450 LL (BEAKER) (test code = 1836) PCO2, ARTERIAL-POC 45.4 mm Hg 35.0-45.0 H (BEAKER) (test code = 1837) PO2, ARTERIAL-POC 159.0 mm Hg 80.0-90.0 H (BEAKER) (test code = 1838) SO2, ARTERIAL-POC 99.0 % 96.0-97.0 H (BEAKER) (test code = 1839) HCO3, ARTERIAL-POC 17.7 meq/L 21.0-29.0 L (BEAKER) (test code = 1840) BASE EXCESS, -11.0 meq/L -2.0-3.0 L ARTERIAL-POC (BEAKER) (test code = 1841) [id number] 01:27:00 Test Item Value Reference Range Interpretation Comments POC-SODIUM (BEAKER) 141 meq/L 135-148 TESTED A T [place] [address] (test code = 1542) [place] [address] [id number] 01:27:00 Test Item Value Reference Range Interpretation Comments POC-POTASSIUM 4.0 meq/L 3.6-5.5 TESTED AT [place] [address] (BEAKER) (test code [facility] [address] = 1540) [id number] 01:27:00 Test Item Value Reference Range Interpretation Comments POC-GLUCOSE (BEAKER) 219 mg/dL 70-110 H TESTED AT [place] [address] (test code = 1855) [place] [address] POCT-CALCIUM [id number] 01:27:00 Test Item Value Reference Range Interpretation Comments POC-CALCIUM IONIZED 0.99 mmol/L 1.12-1.27 L TESTED A T [facility] 67 (BEAKER) (test code = [place] [address]) [address] [id number] 01:27:00 Test Item Value Reference Range Interpretation Comments POC-HEMATOCRIT 20 % 40-50 L TESTED AT [place] [address] (BEAKER) (test code = [place] [place] [id number]) [id number] 01:27:00 Test Item Value Reference Range Interpretation Comments POC-HEMOGLOBIN 6.8 g/dL 13.0-16.8 L TESTED AT [place] [address] (BEAKER) (test code = [place] [address]) [id number] AT [facility] [address] [place] [address] HEMOGLOBIN AND [id number] 01:04:00 Test Item Value Reference Range Interpretation Comments HEMOGLOBIN (BEAKER) (test code = 6.9 GM/DL 13.7-17.5 L 410) HEMATOCRIT (BEAKER) (test code = 21.0 % 40.1-51.0 L 411) VANCOMYCIN LEVEL, [id number] 00:57:00 Test Item Value Reference Range Interpretation Comments VANCOMYCIN TROUGH (BEAKER) (test 19.9 ug/mL 10.0-20.0 code = 522) CALCIUM, [id number] 00:41:00 Test Item Value Reference Range Interpretation Comments CALCIUM IONIZED (BEAKER) (test 1.01 mmol/L 1.12-1.27 L code = 698) PH, BLOOD (BEAKER) (test code = 7.35 1810) [id number] 00:41:00 Test Item Value Reference Range Interpretation Comments POTASSIUM (BEAKER) (test code = 4.5 meq/L 3.5-5.1 379) HEMOGLOBIN AND [id number] 21:53:00 Test Item Value Reference Range Interpretation Comments HEMOGLOBIN (BEAKER) (test code = 6.1 GM/DL 13.7-17.5 L 410) HEMATOCRIT (BEAKER) (test code = 18.0 % 40.1-51.0 L 411) [id number] 19:42:00 Test Item Value Reference Range Interpretation Comments POTASSIUM (BEAKER) (test code = 4.6 meq/L 3.5-5.1 379) [id number] 19:42:00 Test Item Value Reference Range Interpretation Comments MAGNESIUM (BEAKER) (test code = 1.8 mg/dL 1.6-2.6 627) [id number] 19:42:00 Test Item Value Reference Range Interpretation Comments PHOSPHORUS (BEAKER) (test code = 3.5 mg/dL 2.3-4.7 604) [id number] 19:42:00 Test Item Value Reference Range Interpretation Comments SODIUM (BEAKER) (test code = 381) 137 meq/L 136-145 PROTHROMBIN [id number] 19:40:00 Test Item Value Reference Range Interpretation Comments PROTIME (BEAKER) (test code = 18.3 seconds 11.7-14.7 H 759) INR (BEAKER) (test code = 370) 1.5 <=5.9 RECOMMENDED COUMADIN/WARFARIN INR THERAPY RANGESSTANDARD DOSE: 2.0 - 3.0 Includes: PROPHYLAXIS forvenous thrombosis, systemic embolization; TREATMENT for venous thrombosis and/or pulmonary embolus.HIGH RISK: Target INR is 2.5-3.5 for patients with mechanical heart valves.PH, [id number] 19:30:00 Test Item Value Reference Range Interpretation Comments PH ARTERIAL (BEAKER) (test code = 383) 7.44 7.35-7.45 CALCIUM, [id number] 19:30:00 Test Item Value Reference Range Interpretation Comments CALCIUM IONIZED (BEAKER) (test 1.13 mmol/L 1.12-1.27 code = 698) PH, BLOOD (BEAKER) (test code = 7.44 1810) HEMOGLOBIN AND [id number] 19:28:00 Test Item Value Reference Range Interpretation Comments HEMOGLOBIN (BEAKER) (test code = 7.5 GM/DL 13.7-17.5 L 410) HEMATOCRIT (BEAKER) (test code = 21.8 % 40.1-51.0 L 411) POCT-GLUCOSE [id number] 17:21:00 Test Item Value Reference Range Interpretation Comments POC-GLUCOSE METER 189 mg/dL 70-110 H TESTED AT [facility] 67[address] (BEAKER) (test code = GENEVI[place]E [place] [address]38) [address] [id number] 16:23:00 Test Item Value Reference Range Interpretation Comments MAGNESIUM (BEAKER) (test code = 1.8 mg/dL 1.6-2.6 627) CALCIUM, [id number] 16:07:00 Test Item Value Reference Range Interpretation Comments CALCIUM IONIZED (BEAKER) (test 1.14 mmol/L 1.12-1.27 code = 698) PH, BLOOD (BEAKER) (test code = 7.43 1810) HEMOGLOBIN AND [id number] 16:05:00 Test Item Value Reference Range Interpretation Comments HEMOGLOBIN (BEAKER) (test code = 8.1 GM/DL 13.7-17.5 L 410) HEMATOCRIT (BEAKER) (test code = 23.4 % 40.1-51.0 L 411) BLOOD GAS, [id number] 12:34:00 Test Item Value Reference Range Interpretation Comments PH ARTERIAL (BEAKER) (test code = 7.49 7.35-7.45 H 383) PCO2 ARTERIAL (BEAKER) (test code 33 mmHg 35-45 L = 384) PO2 ARTERIAL (BEAKER) (test code = 245 mmHg 80-90 H 385) O2 SATURATION ARTERIAL (BEAKER) 99.6 % 96.0-97.0 H (test code = 386) HCO3 ARTERIAL (BEAKER) (test code 24 mmol/L 21-29 = 388) BASE EXCESS ARTERIAL (BEAKER) 0.9 mmol/L -2.0-3.0 (test code = 387) PATIENT TEMPERATURE (BEAKER) (test 36.5 C code = 1818) FIO2 (BEAKER) (test code = 1819) 60.0 % PROTHROMBIN [id number] 12:05:00 Test Item Value Reference Range Interpretation Comments PROTIME (BEAKER) (test code = 18.1 seconds 11.7-14.7 H 759) INR (BEAKER) (test code = 370) 1.5 <=5.9 RECOMMENDED COUMADIN/WARFARIN INR THERAPY RANGESSTANDARD DOSE: 2.0 - 3.0 Includes: PROPHYLAXIS forvenous thrombosis, systemic embolization; TREATMENT for venous thrombosis and/or pulmonary embolus.HIGH RISK: Target INR is 2.5-3.5 for patients with mechanical heart valves.BLOOD GAS, [id number] 11:30:00 Test Item Value Reference Range Interpretation Comments PH ARTERIAL (BEAKER) (test code = 7.53 7.35-7.45 H 383) PCO2 ARTERIAL (BEAKER) (test code 31 mmHg 35-45 L = 384) PO2 ARTERIAL (BEAKER) (test code = 224 mmHg 80-90 H 385) O2 SATURATION ARTERIAL (BEAKER) 99.6 % 96.0-97.0 H (test code = 386) HCO3 ARTERIAL (BEAKER) (test code 25 mmol/L 21-29 = 388) BASE EXCESS ARTERIAL (BEAKER) 2.3 mmol/L -2.0-3.0 (test code = 387) PATIENT TEMPERATURE (BEAKER) (test 36.5 C code = 1818) FIO2 (BEAKER) (test code = 1819) 60.0 % CALCIUM, [id number] 11:29:00 Test Item Value Reference Range Interpretation Comments CALCIUM IONIZED (BEAKER) (test 1.15 mmol/L 1.12-1.27 code = 698) PH, BLOOD (BEAKER) (test code = 7.52 1810) POCT-GLUCOSE [id number] 11:22:00 Test Item Value Reference Range Interpretation Comments POC-GLUCOSE METER 202 mg/dL 70-110 H TESTED AT [facility] 67[address] (BEAKER) (test code = [place] [address]) [address] [id number] 10:07:00 Test Item Value Reference Range Interpretation Comments FIBRINOGEN LEVEL (BEAKER) (test 222 mg/dl 225-434 L code = 658) HEMOGLOBIN AND [id number] 09:58:00 Test Item Value Reference Range Interpretation Comments HEMOGLOBIN (BEAKER) (test code = 8.8 GM/DL 13.7-17.5 L 410) HEMATOCRIT (BEAKER) (test code = 25.4 % 40.1-51.0 L 411) TROPONIN [id number] 09:11:00 Test Item Value Reference Range Interpretation Comments TROPONIN I (BEAKER) (test code = 0.99 ng/mL 0.00-0.03 HH 397) Troponin I (TnI) levels must be interpreted [...] and persistent tachyarrhythmia.CBC W/PLT COUNT & AUTO DIFFERENTIAL 2018-07-08 09:10:00 Test Item Value Reference Range Interpretation Comments WHITE BLOOD CELL COUNT 21.4 K/ L 3.5-10.5 H (BEAKER) (test code = 775) RED BLOOD CELL COUNT 2.53 M/ L 4.63-6.08 L (BEAKER) (test code = 761) HEMOGLOBIN (BEAKER) 7.6 GM/DL 13.7-17.5 L (test code = 410) HEMATOCRIT (BEAKER) 21.3 % 40.1-51.0 L (test code = 411) MEAN CORPUSCULAR 84.2 fL 79.0-92.2 Discordant from VOLUME (BEAKER) (test previo us results. code = 753) Clinical correl ation suggested. MEAN CORPUSCULAR 30.0 pg 25.7-32.2 HEMOGLOBIN (BEAKER) (test code = 751) MEAN CORPUSCULAR 35.7 GM/DL 32.3-36.5 HEMOGLOBIN CONC (BEAKER) (test code = 752) RED CELL DISTRIBUTION 14.6 % 11.6-14.4 H WIDTH (BEAKER) (test code = 412) PLATELET COUNT 133 K/CU MM 150-450 L (BEAKER) (test code = 756) MEAN PLATELET VOLUME 11.7 fL 9.4-12.4 (BEAKER) (test code = 754) NUCLEATED RED BLOOD 0 /100 WBC 0-0 CELLS (BEAKER) (test code = 413) (CELLAVISION MANUAL DIFF)2018-07-08 09:10:00 Test Item Value Reference Range Interpretation Comments NEUTROPHILS - REL 92 % (CELLAVISION)(BEAKER) (test code = 2816) LYMPHOCYTES - REL 6 % (CELLAVISION)(BEAKER) (test code = 2817) MONOCYTES - REL 2 % (CELLAVISION)(BEAKER) (test code = 2818) NEUTROPHILS - ABS 19.69 K/ul 1.78-5.38 H (CELLAVISION)(BEAKER) (test code = 2830) LYMPHOCYTES - ABS 1.28 K/ul 1.32-3.57 L (CELLAVISION)(BEAKER) (test code = 2831) MONOCYTES - ABS 0.43 K/uL 0.30-0.82 (CELLAVISION)(BEAKER) (test code = 2832) TOTAL COUNTED (BEAKER) (test code 100 = 1351) WBC MORPHOLOGY (BEAKER) (test code Normal = 487) PLT MORPHOLOGY (BEAKER) (test code Normal = 486) POLYCHROMATOPHILLIC RBCS(BEAKER) 1+ few (test code = 478) ANISOCYTOSIS (BEAKER) (test code = 1+ few 961) ARTIFACT (CELLAVISION)(BEAKER) Present (test code = 3432) PLATELET CONCENTRATION Decreased (CELLAVISION)(BEAKER) (test code = 3438) Received comment: User comments: Slide comments:RAD, CHEST, 1 VIEW, NON DEPT 2018-07-08 08:52:00Reason for exam:->intubated, assess interval change in pulmonary edema vs aspiration after CRRTShould this be performed at the bedside?->YesFINAL REPORT Portable chest. CLINICAL HISTORY: Intubated. COMPARISON [...] Serra MDReport Verified Date/Time: 07/08/2018 08:52:14 ReadingLocation: [facility] B1 C013X Ortho Consult Reading Room LACTIC ACID, ARTERIAL, WHOLE [id number] 08:43:00 Test Item Value Reference Range Interpretation Comments LACTATE BLOOD ARTERIAL (2) 1.1 mmol/L 0.5-2.2 (BEAKER) (test code = 2874) Effective 02/25/2016: Units/Reference Range ChangeNew: 0.5-2.2 mmol/L Previous: 5-20 mg/[id number] 08:12:00 Test Item Value Reference Range Interpretation Comments POTASSIUM (BEAKER) (test code = 3.9 meq/L 3.5-5.1 379) [id number] 08:12:00 Test Item Value Reference Range Interpretation Comments MAGNESIUM (BEAKER) (test code = 1.8 mg/dL 1.6-2.6 627) [id number] 08:12:00 Test Item Value Reference Range Interpretation Comments PHOSPHORUS (BEAKER) (test code = 2.2 mg/dL 2.3-4.7 L 604) [id number] 08:12:00 Test Item Value Reference Range Interpretation Comments SODIUM (BEAKER) (test code = 381) 134 meq/L 136-145 L HEMOGLOBIN AND [id number] 07:56:00 Test Item Value Reference Range Interpretation Comments HEMOGLOBIN (BEAKER) (test code = 8.9 GM/DL 13.7-17.5 L 410) HEMATOCRIT (BEAKER) (test code = 25.7 % 40.1-51.0 L 411) PH, [id number] 07:55:00 Test Item Value Reference Range Interpretation Comments PH ARTERIAL (BEAKER) (test code = 383) 7.63 7.35-7.45 HH CALCIUM, [id number] 07:53:00 Test Item Value Reference Range Interpretation Comments CALCIUM IONIZED (BEAKER) (test 1.06 mmol/L 1.12-1.27 L code = 698) PH, BLOOD (BEAKER) (test code = 7.63 1810) POCT-GLUCOSE [id number] 07:42:00 Test Item Value Reference Range Interpretation Comments POC-GLUCOSE METER 190 mg/dL 70-110 H TESTED AT [facility] 67[address] (BEAKER) (test code = [place] 1538) [address] FIBRIN SOLUBLE [id number] 07:40:00 Test Item Value Reference Range Interpretation Comments FIBRIN SOLUBLE MONOMER (BEAKER) Negative (test code = 1416) HEMOGLOBIN AND [id number] 06:23:00 Test Item Value Reference Range Interpretation Comments HEMOGLOBIN (BEAKER) (test code = 7.3 GM/DL 13.7-17.5 L 410) HEMATOCRIT (BEAKER) (test code = 21.0 % 40.1-51.0 L 411) THROMBOELASTOGRAPH (TEG)2018-07-08 05:38:00 Test Item Value Reference Range Interpretation Comments TEG ACTIVATED CLOTTING TIME 4.0 minutes 4.0-7.0 (BEAKER) (test code = 1407) TEG FIBRINOGEN ACTIVITY (BEAKER) 73.8 degrees 61.0-73.0 H (test code = 1408) TEG PLT. AGGREGATION (BEAKER) 60.8 MM 55.0-65.0 (test code = 1409) TEG FIBRINOLYSIS (BEAKER) (test 0.0 % 0.0-5.0 code = 1410) TGH ACTIVATED CLOTTING TIME 4.1 minutes 4.0-7.0 (BEAKER) (test code = 1411) TGH FIBRINOGEN ACTIVITY (BEAKER) 74.4 degrees 61.0-73.0 H (test code = 1412) TGH PLT. AGGREGATION (BEAKER) 56.0 MM 55.0-65.0 (test code = 1413) TGH FIBRINOLYSIS (BEAKER) (test 0.0 % 0.0-5.0 code = 1414) CALCIUM, [id number] 05:19:00 Test Item Value Reference Range Interpretation Comments CALCIUM IONIZED (BEAKER) (test 1.28 mmol/L 1.12-1.27 H code = 698) PH, BLOOD (BEAKER) (test code = 7.40 1810) [id number] 04:51:00 Test Item Value Reference Range Interpretation Comments MAGNESIUM (BEAKER) (test code = 2.0 mg/dL 1.6-2.6 627) BASIC METABOLIC [id number] 04:51:00 Test Item Value Reference Range Interpretation Comments SODIUM (BEAKER) 135 meq/L 136-145 L (test code = 381) POTASSIUM (BEAKER) 4.2 meq/L 3.5-5.1 (test code = 379) CHLORIDE (BEAKER) 106 meq/L 98-107 (test code = 382) CO2 (BEAKER) (test 20 meq/L 22-29 L code = 355) BLOOD UREA NITROGEN 26 mg/dL 7-21 H (BEAKER) (test code = 354) CREATININE (BEAKER) 2.27 mg/dL 0.57-1.25 H (test code = 358) GLUCOSE RANDOM 249 mg/dL 70-105 H (BEAKER) (test code = 652) CALCIUM (BEAKER) 8.1 mg/dL 8.4-10.2 L (test code = 697) EGFR (BEAKER) (test 30 mL/min/1.73 ESTIMA KIMBER GFR IS code = 1092) sq m NOT ACCURATE CREATININE CLEARANCE IN PREDICTING GLOMERULAR FILTRATION RATE . ESTIMATED GFR I S NOT APPLICABLE FOR DIALYSIS PATIEN TS. Specimen slightly ictericHEPATIC FUNCTION [id number] 04:51:00 Test Item Value Reference Range Interpretation Comments TOTAL PROTEIN (BEAKER) (test code = 4.4 gm/dL 6.0-8.3 L 770) ALBUMIN (BEAKER) (test code = 1145) 2.5 g/dL 3.5-5.0 L BILIRUBIN TOTAL (BEAKER) (test code 2.3 mg/dL 0.2-1.2 H = 377) BILIRUBIN DIRECT (BEAKER) (test 1.7 mg/dL 0.1-0.5 H code = 706) ALKALINE PHOSPHATASE (BEAKER) (test 71 U/L 40-150 code = 346) AST (SGOT) (BEAKER) (test code = 73 U/L 5-34 H 353) ALT (SGPT) (BEAKER) (test code = 34 U/L 6-55 347) Specimen slightly [id number] 04:45:00 Test Item Value Reference Range Interpretation Comments D-DIMER QUANTITATIVE (BEAKER) 2.09 MG/L FEU <0.50 H (test code = 671) Intended Use: The D-Dimer Assay can be used to aid in the diagnosis of Deep Vein Thrombosis (DVT) and Pulmonary Embolism Disease (PED).In patients with low pre- test probability, various studies concerning STA Liatest D-dimer test have reported that with a cutoff value of 0.50 MG/L FEU, the Negative Predictive Value (NPV) regarding the exclusion of thrombosis is within 95-100% range.APTT 2018-07-08 04:43:00 Test Item Value Reference Range Interpretation Comments PARTIAL THROMBOPLASTIN TIME 34.4 seconds 22.5-36.0 (BEAKER) (test code = 760) PROTHROMBIN [id number] 04:41:00 Test Item Value Reference Range Interpretation Comments PROTIME (BEAKER) (test code = 18.7 seconds 11.7-14.7 H 759) INR (BEAKER) (test code = 370) 1.6 <=5.9 RECOMMENDED COUMADIN/WARFARIN INR THERAPY RANGESSTANDARD DOSE: 2.0 - 3.0 Includes: PROPHYLAXIS forvenous thrombosis, systemic embolization; TREATMENT for venous thrombosis and/or pulmonary embolus.HIGH RISK: Target INR is 2.5-3.5 for patients with mechanical heart valves.LACTIC ACID, VENOUS, WHOLE [id number] 04:34:00 Test Item Value Reference Range Interpretation Comments LACTATE BLOOD VENOUS (2) (BEAKER) 2.6 mmol/L 0.5-2.2 H (test code = 2872) Effective 02/25/2016: Units/Reference Range ChangeNew: 0.5-2.2 mmol/L Previous: 5-20 mg/dLBLOOD GAS, [id number] 04:19:00 Test Item Value Reference Range Interpretation Comments PH ARTERIAL (BEAKER) (test code = 7.59 7.35-7.45 H 383) PCO2 ARTERIAL (BEAKER) (test code 24 mmHg 35-45 L = 384) PO2 ARTERIAL (BEAKER) (test code = 362 mmHg 80-90 H 385) O2 SATURATION ARTERIAL (BEAKER) 99.8 % 96.0-97.0 H (test code = 386) HCO3 ARTERIAL (BEAKER) (test code 23 mmol/L 21-29 = 388) BASE EXCESS ARTERIAL (BEAKER) 1.3 mmol/L -2.0-3.0 (test code = 387) PATIENT TEMPERATURE (BEAKER) (test 37.5 C code = 1818) FIO2 (BEAKER) (test code = 1819) 100.0 % HEMOGLOBIN AND [id number] 02:16:00 Test Item Value Reference Range Interpretation Comments HEMOGLOBIN (BEAKER) (test code = 7.9 GM/DL 13.7-17.5 L 410) HEMATOCRIT (BEAKER) (test code = 22.4 % 40.1-51.0 L 411) [id number] 00:24:00 Test Item Value Reference Range Interpretation Comments POTASSIUM (BEAKER) (test code = 4.1 meq/L 3.5-5.1 379) CALCIUM, [id number] 00:22:00 Test Item Value Reference Range Interpretation Comments CALCIUM IONIZED (BEAKER) (test 1.09 mmol/L 1.12-1.27 L code = 698) PH, BLOOD (BEAKER) (test code = 7.44 1810) HEMOGLOBIN AND [id number] 00:16:00 Test Item Value Reference Range Interpretation Comments HEMOGLOBIN (BEAKER) (test code = 8.1 GM/DL 13.7-17.5 L 410) HEMATOCRIT (BEAKER) (test code = 23.8 % 40.1-51.0 L 411) HEMOGLOBIN AND [id number] 22:26:00 Test Item Value Reference Range Interpretation Comments HEMOGLOBIN (BEAKER) (test code = 8.1 GM/DL 13.7-17.5 L 410) HEMATOCRIT (BEAKER) (test code = 23.7 % 40.1-51.0 L 411) POCT-GLUCOSE [id number] 22:10:00 Test Item Value Reference Range Interpretation Comments POC-GLUCOSE METER 257 mg/dL 70-110 H TESTED AT [facility] 6720 (BEAKER) (test code = [place] 1538) [id number] THROMBOELASTOGRAPH (TEG)2018-07-07 21:16:00 Test Item Value Reference Range Interpretation Comments TEG ACTIVATED CLOTTING TIME 4.7 minutes 4.0-7.0 (BEAKER) (test code = 1407) TEG FIBRINOGEN ACTIVITY (BEAKER) 72.6 degrees 61.0-73.0 (test code = 1408) TEG PLT. AGGREGATION (BEAKER) 58.5 MM 55.0-65.0 (test code = 1409) TEG FIBRINOLYSIS (BEAKER) (test 15.7 % 0.0-5.0 H code = 1410) TGH ACTIVATED CLOTTING TIME 4.4 minutes 4.0-7.0 (BEAKER) (test code = 1411) TGH FIBRINOGEN ACTIVITY (BEAKER) 71.7 degrees 61.0-73.0 (test code = 1412) TGH PLT. AGGREGATION (BEAKER) 49.1 MM 55.0-65.0 L (test code = 1413) TGH FIBRINOLYSIS (BEAKER) (test 0.0 % 0.0-5.0 code = 1414) [id number] 21:02:00 Test Item Value Reference Range Interpretation Comments POTASSIUM (BEAKER) (test code = 4.1 meq/L 3.5-5.1 379) [id number] 21:02:00 Test Item Value Reference Range Interpretation Comments MAGNESIUM (BEAKER) (test code = 1.7 mg/dL 1.6-2.6 627) [id number] 21:02:00 Test Item Value Reference Range Interpretation Comments PHOSPHORUS (BEAKER) (test code = 4.3 mg/dL 2.3-4.7 604) [id number] 21:02:00 Test Item Value Reference Range Interpretation Comments SODIUM (BEAKER) (test code = 381) 138 meq/L 136-145 CALCIUM, [id number] 20:36:00 Test Item Value Reference Range Interpretation Comments CALCIUM IONIZED (BEAKER) (test 0.98 mmol/L 1.12-1.27 L code = 698) PH, BLOOD (BEAKER) (test code = 7.34 1810) PH, [id number] 20:36:00 Test Item Value Reference Range Interpretation Comments PH ARTERIAL (BEAKER) (test code = 383) 7.34 7.35-7.45 L HEMOGLOBIN AND [id number] 20:30:00 Test Item Value Reference Range Interpretation Comments HEMOGLOBIN (BEAKER) (test code = 7.8 GM/DL 13.7-17.5 L 410) HEMATOCRIT (BEAKER) (test code = 22.8 % 40.1-51.0 L 411) RAD, CHEST, 1 VIEW, NON [id number] 19:08:00Reason for exam:->s/p dialysis catheterShould this be performed at the bedside?->YesFINAL REPORT Chest, 1 view. History: Dialysis catheter placement. Comparison: 07/07/2018 at 0953. Impression: There has been interval [...] MDReport Verified Date/Time: 07/07/2018 19:08:34 Reading Location: [facility] B1 [id number] Consult Reading Room ANG, VISCERAL [id number] 18:27:00from ercpFINAL REPORT Exam: Visceral arteriogram Clinical [...] condition. Complication: None immediate Impression: 1. Visceral arteriogramas described. Signed: German Euceda MDReport Verified Date/Time: 07/07/2018 18:27:51 Reading Location: [facility] Radiology Reading Room HEMOGLOBIN AND [id number] 18:25:00 Test Item Value Reference Range Interpretation Comments HEMOGLOBIN (BEAKER) (test code = 7.6 GM/DL 13.7-17.5 L 410) HEMATOCRIT (BEAKER) (test code = 22.8 % 40.1-51.0 L 411) TROPONIN [id number] 18:16:00 Test Item Value Reference Range Interpretation Comments TROPONIN I (BEAKER) (test code = 0.26 ng/mL 0.00-0.03 HH 397) Troponin I (TnI) levels must be interpreted [...] acute neurological disease, and persistent tachyarrhythmia.BASIC METABOLIC [id number] 17:33:00 Test Item Value Reference Range Interpretation Comments SODIUM (BEAKER) 141 meq/L 136-145 (test code = 381) POTASSIUM (BEAKER) 4.2 meq/L 3.5-5.1 (test code = 379) CHLORIDE (BEAKER) 107 meq/L 98-107 (test code = 382) CO2 (BEAKER) (test 12 meq/L 22-29 L code = 355) BLOOD UREA NITROGEN 25 mg/dL 7-21 H (BEAKER) (test code = 354) CREATININE (BEAKER) 2.29 mg/dL 0.57-1.25 H (test code = 358) GLUCOSE RANDOM 259 mg/dL 70-105 H (BEAKER) (test code = 652) CALCIUM (BEAKER) 7.3 mg/dL 8.4-10.2 L (test code = 697) EGFR (BEAKER) (test 30 mL/min/1.73 ESTIMA KIMBER GFR IS code = 1092) sq m NOT ACCURATE CREATININE CLEARANCE IN PREDICTING GLOMERULAR FILTRATION RATE . ESTIMATED GFR I S NOT APPLICABLE FOR DIALYSIS PATIEN TS. [id number] 17:32:00 Test Item Value Reference Range Interpretation Comments MAGNESIUM (BEAKER) (test code = 1.7 mg/dL 1.6-2.6 627) POCT-GLUCOSE [id number] 17:29:00 Test Item Value Reference Range Interpretation Comments POC-GLUCOSE METER 283 mg/dL 70-110 H TESTED AT [facility] 6720 (BEAKER) (test code = GENEVIEVE DERAS HI 1533) [address] SODIUM, RANDOM [id number] 17:20:00 Test Item Value Reference Range Interpretation Comments SODIUM URINE (BEAKER) (test code = < meq/L 243) Reference Range: No NormalsFIBRIN SOLUBLE [id number] 17:20:00 Test Item Value Reference Range Interpretation Comments FIBRIN SOLUBLE MONOMER (BEAKER) Negative (test code = 1416) ANG, ARTERIAL EMBOLIZATION FOR [id number] 17:15:00Reason for exam:->s/p ERCP with bleedFINAL REPORT History: Upper GI bleed, active bleeding by recent endoscopy. PROCEDURE: Following informed written consent, the patient's right femoral area was prepped and draped in the usual sterile manner. 2% lidocaine was given locally for anesthesia. No conscious sedation wasadministered. Access was gained to the right common femoral artery and a 5 Greenlandic sheath was placed.A 5 Greenlandic Alcantar B catheter was placed over a wire into the abdominal aorta and used to carefully select and perform celiac and superior mesenteric arteriograms. 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 Subselective arteriography was performed. The 3 [place]landic microcatheter was further advanced into a distal [...] removed and hemostasis achieved using a 5 Greenlandic mynx closure device. Overall, the patient tolerated [...] (Ka,r): 3073 mGy Signed: Felicitas Alvarezeport Verified Date/Time: 07/07/2018 17:15:21 Reading Location: [facility] P048 Angio Body Reading Room 05:15 PMCREATININE, RANDOM [id number] 17:14:00 Test Item Value Reference Range Interpretation Comments CREATININE URINE (BEAKER) (test 68.4 mg/dL code = 375) Reference Range: No NormalsPROTEIN, RANDOM [id number] 17:14:00 Test Item Value Reference Range Interpretation Comments PROTEIN, URINE (BEAKER) (test code = 33 mg/dL 0-14 H 1569) [id number] 16:58:00 Test Item Value Reference Range Interpretation Comments POTASSIUM (BEAKER) (test code = 4.2 meq/L 3.5-5.1 379) URINALYSIS WITH MICROSCOPIC IF [id number] 16:43:00 Test Item Value Reference Range Interpretation Comments COLOR (BEAKER) (test code = 470) Yellow CLARITY (BEAKER) (test code = 469) Hazy SPECIFIC GRAVITY UA (BEAKER) (test 1.040 1.001-1.035 H code = 468) PH UA (BEAKER) (test code = 467) 6.0 5.0-8.0 PROTEIN UA (BEAKER) (test code = 20 mg/dL Negative A 464) GLUCOSE UA (BEAKER) (test code = 30 mg/dL Negative A 365) KETONES UA (BEAKER) (test code = 10 mg/dL Negative A 371) BILIRUBIN UA (BEAKER) (test code = Negative Negative 462) BLOOD UA (BEAKER) (test code = 461) Negative Negative NITRITE UA (BEAKER) (test code = Negative Negative 465) LEUKOCYTE ESTERASE UA (BEAKER) Negative Negative (test code = 466) UROBILINOGEN UA (BEAKER) (test code 0.2 mg/dL 0.2-1.0 = 463) SOURCE(BEAKER) (test code = 2795) URINALYSIS [id number] 16:43:00 Test Item Value Reference Range Interpretation Comments RBC UA (BEAKER) (test code = 519) 1 /HPF WBC UA (BEAKER) (test code = 520) 5 /HPF MUCUS (BEAKER) (test code = 1574) Rare SQUAMOUS EPITHELIAL (BEAKER) (test 1 /HPF code = 516) HEMOGLOBIN AND [id number] 16:37:00 Test Item Value Reference Range Interpretation Comments HEMOGLOBIN (BEAKER) (test code = 8.1 GM/DL 13.7-17.5 L 410) HEMATOCRIT (BEAKER) (test code = 24.6 % 40.1-51.0 L 411) CALCIUM, [id number] 16:23:00 Test Item Value Reference Range Interpretation Comments CALCIUM IONIZED (BEAKER) (test 0.91 mmol/L 1.12-1.27 L code = 698) PH, BLOOD (BEAKER) (test code = 7.30 1810) BASIC METABOLIC [id number] 15:27:00 Test Item Value Reference Range Interpretation Comments SODIUM (BEAKER) 134 meq/L 136-145 L (test code = 381) POTASSIUM (BEAKER) 4.3 meq/L 3.5-5.1 (test code = 379) CHLORIDE (BEAKER) 107 meq/L 98-107 (test code = 382) CO2 (BEAKER) (test 13 meq/L 22-29 L code = 355) BLOOD UREA NITROGEN 24 mg/dL 7-21 H (BEAKER) (test code = 354) CREATININE (BEAKER) 2.04 mg/dL 0.57-1.25 H (test code = 358) GLUCOSE RANDOM 247 mg/dL 70-105 H (BEAKER) (test code = 652) CALCIUM (BEAKER) 6.8 mg/dL 8.4-10.2 L (test code = 697) EGFR (BEAKER) (test 34 mL/min/1.73 ESTIMA KIMBER GFR IS code = 1092) sq m NOT ACCURATE CREATININE CLEARANCE IN PREDICTING GLOMERULAR FILTRATION RATE . ESTIMATED GFR I S NOT APPLICABLE FOR DIALYSIS PATIEN TS. [id number] 15:26:00 Test Item Value Reference Range Interpretation Comments PHOSPHORUS (BEAKER) (test code = 4.5 mg/dL 2.3-4.7 604) [id number] 15:26:00 Test Item Value Reference Range Interpretation Comments MAGNESIUM (BEAKER) (test code = 1.6 mg/dL 1.6-2.6 627) BASIC METABOLIC [id number] 15:26:00 Test Item Value Reference Range Interpretation Comments SODIUM (BEAKER) 134 meq/L 136-145 L (test code = 381) POTASSIUM (BEAKER) 4.3 meq/L 3.5-5.1 (test code = 379) CHLORIDE (BEAKER) 107 meq/L 98-107 (test code = 382) CO2 (BEAKER) (test 13 meq/L 22-29 L code = 355) BLOOD UREA NITROGEN 25 mg/dL 7-21 H (BEAKER) (test code = 354) CREATININE (BEAKER) 2.04 mg/dL 0.57-1.25 H (test code = 358) GLUCOSE RANDOM 247 mg/dL 70-105 H (BEAKER) (test code = 652) CALCIUM (BEAKER) 6.8 mg/dL 8.4-10.2 L (test code = 697) EGFR (BEAKER) (test 34 mL/min/1.73 ESTIMA KIMBER GFR IS code = 1092) sq m NOT ACCURATE CREATININE CLEARANCE IN PREDICTING GLOMERULAR FILTRATION RATE . ESTIMATED GFR I S NOT APPLICABLE FOR DIALYSIS PATIEN TS. LACTIC ACID, ARTERIAL, WHOLE [id number] 15:20:00 Test Item Value Reference Range Interpretation Comments LACTATE BLOOD ARTERIAL (2) 9.1 mmol/L 0.5-2.2 H (BEAKER) (test code = 2874) Effective 02/25/2016: Units/Reference Range ChangeNew: 0.5-2.2 mmol/L Previous: 5-20 mg/[id number] 15:14:00 Test Item Value Reference Range Interpretation Comments FIBRINOGEN LEVEL (BEAKER) (test 158 mg/dl 225-434 L code = 658) [id number] 15:10:00 Test Item Value Reference Range Interpretation Comments PROTIME (BEAKER) (test code = 22.1 seconds 11.7-14.7 H 759) INR (BEAKER) (test code = 370) 1.9 <=5.9 PARTIAL THROMBOPLASTIN TIME 36.0 seconds 22.5-36.0 (BEAKER) (test code = 760) RECOMMENDED COUMADIN/WARFARIN INR THERAPY RANGESSTANDARD DOSE: 2.0 - 3.0 Includes: PROPHYLAXIS forvenous thrombosis, systemic embolization; TREATMENT for venous thrombosis and/or pulmonary embolus.HIGH RISK: Target INR is 2.5-3.5 for patients with mechanical heart valves.PROTHROMBIN [id number] 15:09:00 Test Item Value Reference Range Interpretation Comments PROTIME (BEAKER) (test code = 22.1 seconds 11.7-14.7 H 759) INR (BEAKER) (test code = 370) 1.9 <=5.9 RECOMMENDED COUMADIN/WARFARIN INR THERAPY RANGESSTANDARD DOSE: 2.0 - 3.0 Includes: PROPHYLAXIS forvenous thrombosis, systemic embolization; TREATMENT for venous thrombosis and/or pulmonary embolus.HIGH RISK: Target INR is 2.5-3.5 for patients with mechanical heart valves.PROTHROMBIN [id number] 15:08:00 Test Item Value Reference Range Interpretation Comments PROTIME (BEAKER) (test code = 22.2 seconds 11.7-14.7 H 759) INR (BEAKER) (test code = 370) 2.0 <=5.9 RECOMMENDED COUMADIN/WARFARIN INR THERAPY RANGESSTANDARD DOSE: 2.0 - 3.0 Includes: PROPHYLAXIS forvenous thrombosis, systemic embolization; TREATMENT for venous thrombosis and/or pulmonary embolus.HIGH RISK: Target INR is 2.5-3.5 for patients with mechanical heart valves.CBC W/PLT COUNT & AUTO DIFFERENTIAL 2018-07-07 15:07:00 Test Item Value Reference Range Interpretation Comments WHITE BLOOD CELL COUNT (BEAKER) 21.4 K/ L 3.5-10.5 H (test code = 775) RED BLOOD CELL COUNT (BEAKER) 2.92 M/ L 4.63-6.08 L (test code = 761) HEMOGLOBIN (BEAKER) (test code = 8.6 GM/DL 13.7-17.5 L 410) HEMATOCRIT (BEAKER) (test code = 26.1 % 40.1-51.0 L 411) MEAN CORPUSCULAR VOLUME (BEAKER) 89.4 fL 79.0-92.2 (test code = 753) MEAN CORPUSCULAR HEMOGLOBIN 29.5 pg 25.7-32.2 (BEAKER) (test code = 751) MEAN CORPUSCULAR HEMOGLOBIN CONC 33.0 GM/DL 32.3-36.5 (BEAKER) (test code = 752) RED CELL DISTRIBUTION WIDTH 14.6 % 11.6-14.4 H (BEAKER) (test code = 412) PLATELET COUNT (BEAKER) (test code 99 K/CU MM 150-450 L = 756) MEAN PLATELET VOLUME (BEAKER) 11.2 fL 9.4-12.4 (test code = 754) NUCLEATED RED BLOOD CELLS (BEAKER) 0 /100 WBC 0-0 (test code = 413) NEUTROPHILS RELATIVE PERCENT 86 % (BEAKER) (test code = 429) LYMPHOCYTES RELATIVE PERCENT 7 % (BEAKER) (test code = 430) MONOCYTES RELATIVE PERCENT 6 % (BEAKER) (test code = 431) EOSINOPHILS RELATIVE PERCENT 0 % (BEAKER) (test code = 432) BASOPHILS RELATIVE PERCENT 0 % (BEAKER) (test code = 437) NEUTROPHILS ABSOLUTE COUNT 18.45 K/ L 1.78-5.38 H (BEAKER) (test code = 670) LYMPHOCYTES ABSOLUTE COUNT 1.40 K/ L 1.32-3.57 (BEAKER) (test code = 414) MONOCYTES ABSOLUTE COUNT (BEAKER) 1.36 K/ L 0.30-0.82 H (test code = 415) EOSINOPHILS ABSOLUTE COUNT 0.00 K/ L 0.04-0.54 L (BEAKER) (test code = 416) BASOPHILS ABSOLUTE COUNT (BEAKER) 0.02 K/ L 0.01-0.08 (test code = 417) IMMATURE GRANULOCYTES-RELATIVE 1 % 0-1 PERCENT (BEAKER) (test code = 2801) BLOOD GAS, [id number] 14:58:00 Test Item Value Reference Range Interpretation Comments PH ARTERIAL (BEAKER) (test code 7.30 7.35-7.45 L = 383) PCO2 ARTERIAL (BEAKER) (test 30 mmHg 35-45 L code = 384) PO2 ARTERIAL (BEAKER) (test code 188 mmHg 80-90 H = 385) O2 SATURATION ARTERIAL (BEAKER) 99.2 % 96.0-97.0 H (test code = 386) HCO3 ARTERIAL (BEAKER) (test 14 mmol/L 21-29 L code = 388) BASE EXCESS ARTERIAL (BEAKER) -11.0 mmol/L -2.0-3.0 L (test code = 387) PATIENT TEMPERATURE (BEAKER) 37.0 C (test code = 1818) FIO2 (BEAKER) (test code = 1819) 40.0 % HEMOGLOBIN AND [id number] 14:56:00 Test Item Value Reference Range Interpretation Comments HEMOGLOBIN (BEAKER) (test code = 8.6 GM/DL 13.7-17.5 L 410) HEMATOCRIT (BEAKER) (test code = 25.7 % 40.1-51.0 L 411) FIBRIN SOLUBLE [id number] 13:26:00 Test Item Value Reference Range Interpretation Comments FIBRIN SOLUBLE MONOMER (BEAKER) Negative (test code = 1416) THROMBOELASTOGRAPH (TEG)2018-07-07 13:00:00 Test Item Value Reference Range Interpretation Comments TEG ACTIVATED CLOTTING TIME 2.8 minutes 4.0-7.0 L (BEAKER) (test code = 1407) TEG FIBRINOGEN ACTIVITY (BEAKER) 68.1 degrees 61.0-73.0 (test code = 1408) TEG PLT. AGGREGATION (BEAKER) 51.2 MM 55.0-65.0 L (test code = 1409) TEG FIBRINOLYSIS (BEAKER) (test 0.0 % 0.0-5.0 code = 1410) TGH ACTIVATED CLOTTING TIME 3.1 minutes 4.0-7.0 L (BEAKER) (test code = 1411) TGH FIBRINOGEN ACTIVITY (BEAKER) 67.7 degrees 61.0-73.0 (test code = 1412) TGH PLT. AGGREGATION (BEAKER) 48.9 MM 55.0-65.0 L (test code = 1413) TGH FIBRINOLYSIS (BEAKER) (test 0.0 % 0.0-5.0 code = 1414) [id number] 12:02:00 Test Item Value Reference Range Interpretation Comments PARTIAL THROMBOPLASTIN TIME 35.0 seconds 22.5-36.0 (BEAKER) (test code = 760) PROTHROMBIN [id number] 12:01:00 Test Item Value Reference Range Interpretation Comments PROTIME (BEAKER) (test code = 20.2 seconds 11.7-14.7 H 759) INR (BEAKER) (test code = 370) 1.7 <=5.9 RECOMMENDED COUMADIN/WARFARIN INR THERAPY RANGESSTANDARD DOSE: 2.0 - 3.0 Includes: PROPHYLAXIS forvenous thrombosis, systemic embolization; TREATMENT for venous thrombosis and/or pulmonary embolus.HIGH RISK: Target INR is 2.5-3.5 for patients with mechanical heart valves.VA, [id number] 11:51:00Reason for exam:->bleeding s/p ercpFINAL REPORT ERCP, [...] Fluoroscopy time is 2.6 minutes. Signed: Emile Shirley MDReport Verified Date/Time: 07/07/2018 11:51:44 Reading Location: [address] Radiology Reading Room Electronically signedby: EMILE SHIRLEY M.D. on 07/07/2018 11:51 AMLACTIC ACID, ARTERIAL, WHOLE [id number] 11:48:00 Test Item Value Reference Range Interpretation Comments LACTATE BLOOD ARTERIAL (2) 7.4 mmol/L 0.5-2.2 H (BEAKER) (test code = 2874) Effective 02/25/2016: Units/Reference Range ChangeNew: 0.5-2.2 mmol/L Previous: 5-20 mg/pBF-[id number] 11:36:00 Test Item Value Reference Range Interpretation Comments D-DIMER QUANTITATIVE (BEAKER) 1.79 MG/L FEU <0.50 H (test code = 671) Intended Use: The D-Dimer Assay can be used to aid in the diagnosis of Deep Vein Thrombosis (DVT) and Pulmonary Embolism Disease (PED).In patients with low pre- test probability, various studies concerning STA Liatest D-dimer test have reported that with a cutoff value of 0.50 MG/L FEU, the Negative Predictive Value (NPV) regarding the exclusion of thrombosis is within 95-100% range.BLOOD GAS, [id number] 11:35:00 Test Item Value Reference Range Interpretation Comments PH ARTERIAL (BEAKER) (test code = 7.31 7.35-7.45 L 383) PCO2 ARTERIAL (BEAKER) (test code 35 mmHg 35-45 = 384) PO2 ARTERIAL (BEAKER) (test code 135 mmHg 80-90 H = 385) O2 SATURATION ARTERIAL (BEAKER) 98.5 % 96.0-97.0 H (test code = 386) HCO3 ARTERIAL (BEAKER) (test code 18 mmol/L 21-29 L = 388) BASE EXCESS ARTERIAL (BEAKER) -8.1 mmol/L -2.0-3.0 L (test code = 387) PATIENT TEMPERATURE (BEAKER) 36.5 C (test code = 1818) FIO2 (BEAKER) (test code = 1819) 40.0 % HEMOGLOBIN AND [id number] 11:27:00 Test Item Value Reference Range Interpretation Comments HEMOGLOBIN (BEAKER) (test code = 9.2 GM/DL 13.7-17.5 L 410) HEMATOCRIT (BEAKER) (test code = 28.2 % 40.1-51.0 L 411) POCT-GLUCOSE [id number] 11:22:00 Test Item Value Reference Range Interpretation Comments POC-GLUCOSE METER 240 mg/dL 70-110 H TESTED AT [facility] [address] (BEAKER) (test code = [place] 1538) [address] RAD, CHEST, 1 VIEW, NON [id number] 10:14:00Reason for exam:- >intubationShould this be performed at the bedside?->YesFINAL REPORT [...] MDReport Verified Date/Time: 07/07/2018 10:14:17 Reading Location: [facility] Radiology Reading Room BASIC METABOLIC PANEL 2018-07-07 09:45:00 Test Item Value Reference Range Interpretation Comments SODIUM (BEAKER) 137 meq/L 136-145 (test code = 381) POTASSIUM (BEAKER) 4.2 meq/L 3.5-5.1 (test code = 379) CHLORIDE (BEAKER) 108 meq/L 98-107 H (test code = 382) CO2 (BEAKER) (test 16 meq/L 22-29 L code = 355) BLOOD UREA NITROGEN 20 mg/dL 7-21 (BEAKER) (test code = 354) CREATININE (BEAKER) 1.41 mg/dL 0.57-1.25 H (test code = 358) GLUCOSE RANDOM 281 mg/dL 70-105 H (BEAKER) (test code = 652) CALCIUM (BEAKER) 6.6 mg/dL 8.4-10.2 L (test code = 697) EGFR (BEAKER) (test 52 mL/min/1.73 ESTIMA KIMBER GFR IS code = 1092) sq m NOT ACCURATE CREATININE CLEARANCE IN PREDICTING GLOMERULAR FILTRATION RATE . ESTIMATED GFR I S NOT APPLICABLE FOR DIALYSIS PATIEN TS. [id number] 09:38:00 Test Item Value Reference Range Interpretation Comments FIBRINOGEN LEVEL (BEAKER) (test 146 mg/dl 225-434 L code = 658) HEMOGLOBIN AND [id number] 09:19:00 Test Item Value Reference Range Interpretation Comments HEMOGLOBIN (BEAKER) (test code = 7.7 GM/DL 13.7-17.5 L 410) HEMATOCRIT (BEAKER) (test code = 23.4 % 40.1-51.0 L 411) BLOOD GAS, [id number] 09:18:00 Test Item Value Reference Range Interpretation Comments PH ARTERIAL (BEAKER) (test code = 7.32 7.35-7.45 L 383) PCO2 ARTERIAL (BEAKER) (test code 35 mmHg 35-45 = 384) PO2 ARTERIAL (BEAKER) (test code 124 mmHg 80-90 H = 385) O2 SATURATION ARTERIAL (BEAKER) 98.4 % 96.0-97.0 H (test code = 386) HCO3 ARTERIAL (BEAKER) (test code 18 mmol/L 21-29 L = 388) BASE EXCESS ARTERIAL (BEAKER) -8.0 mmol/L -2.0-3.0 L (test code = 387) PATIENT TEMPERATURE (BEAKER) 35.0 C (test code = 1818) FIO2 (BEAKER) (test code = 1819) 40.0 % [id number] 08:27:00 Test Item Value Reference Range Interpretation Comments PARTIAL THROMBOPLASTIN TIME 37.9 seconds 22.5-36.0 H (BEAKER) (test code = 760) PROTHROMBIN [id number] 08:26:00 Test Item Value Reference Range Interpretation Comments PROTIME (BEAKER) (test code = 23.5 seconds 11.7-14.7 H 759) INR (BEAKER) (test code = 370) 2.1 <=5.9 RECOMMENDED COUMADIN/WARFARIN INR THERAPY RANGESSTANDARD DOSE: 2.0 - 3.0 Includes: PROPHYLAXIS forvenous thrombosis, systemic embolization; TREATMENT for venous thrombosis and/or pulmonary embolus.HIGH RISK: Target INR is 2.5-3.5 for patients with mechanical heart valves.HEMOGLOBIN AND [id number] 08:08:00 Test Item Value Reference Range Interpretation Comments HEMOGLOBIN (BEAKER) (test code = 7.7 GM/DL 13.7-17.5 L 410) HEMATOCRIT (BEAKER) (test code = 23.3 % 40.1-51.0 L 411) BASIC METABOLIC [id number] 06:32:00 Test Item Value Reference Range Interpretation Comments SODIUM (BEAKER) 134 meq/L 136-145 L (test code = 381) POTASSIUM (BEAKER) 4.9 meq/L 3.5-5.1 (test code = 379) CHLORIDE (BEAKER) 101 meq/L 98-107 (test code = 382) CO2 (BEAKER) (test 26 meq/L 22-29 code = 355) BLOOD UREA NITROGEN 21 mg/dL 7-21 (BEAKER) (test code = 354) CREATININE (BEAKER) 1.49 mg/dL 0.57-1.25 H (test code = 358) GLUCOSE RANDOM 195 mg/dL 70-105 H (BEAKER) (test code = 652) CALCIUM (BEAKER) 7.4 mg/dL 8.4-10.2 L (test code = 697) EGFR (BEAKER) (test 49 mL/min/1.73 ESTIMA KIMBER GFR IS code = 1092) sq m NOT ACCURATE CREATININE CLEARANCE IN PREDICTING GLOMERULAR FILTRATION RATE . ESTIMATED GFR I S NOT APPLICABLE FOR DIALYSIS PATIEN TS. Specimen slightly [id number] 06:21:00 Test Item Value Reference Range Interpretation Comments MAGNESIUM (BEAKER) (test code = 2.0 mg/dL 1.6-2.6 627) HEPATIC FUNCTION [id number] 06:21:00 Test Item Value Reference Range Interpretation Comments TOTAL PROTEIN (BEAKER) (test code = 4.7 gm/dL 6.0-8.3 L 770) ALBUMIN (BEAKER) (test code = 1145) 2.7 g/dL 3.5-5.0 L BILIRUBIN TOTAL (BEAKER) (test code 3.7 mg/dL 0.2-1.2 H = 377) BILIRUBIN DIRECT (BEAKER) (test 2.8 mg/dL 0.1-0.5 H code = 706) ALKALINE PHOSPHATASE (BEAKER) (test 145 U/L 40-150 code = 346) AST (SGOT) (BEAKER) (test code = 44 U/L 5-34 H 353) ALT (SGPT) (BEAKER) (test code = 29 U/L 6-55 347) Specimen slightly ictericLACTIC ACID, VENOUS, WHOLE [id number] 06:16:00 Test Item Value Reference Range Interpretation Comments LACTATE BLOOD VENOUS (2) (BEAKER) 2.2 mmol/L 0.5-2.2 (test code = 2872) Effective 02/25/2016: Units/Reference Range ChangeNew: 0.5-2.2 mmol/L Previous: 5-20 mg/dLSpecimen slightly ictericHEMOGLOBIN AND [id number] 06:06:00 Test Item Value Reference Range Interpretation Comments HEMOGLOBIN (BEAKER) (test code = 10.2 GM/DL 13.7-17.5 L 410) HEMATOCRIT (BEAKER) (test code = 31.7 % 40.1-51.0 L 411) LACTIC ACID, VENOUS, WHOLE [id number] 03:14:00 Test Item Value Reference Range Interpretation Comments LACTATE BLOOD VENOUS (2) (BEAKER) 1.3 mmol/L 0.5-2.2 (test code = 2872) Effective 02/25/2016: Units/Reference Range ChangeNew: 0.5-2.2 mmol/L Previous: 5-20 mg/dLSpecimen slightly ictericHEMOGLOBIN AND [id number] 03:08:00 Test Item Value Reference Range Interpretation Comments HEMOGLOBIN (BEAKER) (test code = 11.2 GM/DL 13.7-17.5 L 410) HEMATOCRIT (BEAKER) (test code = 34.8 % 40.1-51.0 L 411) HEMOGLOBIN AND [id number] 00:22:00 Test Item Value Reference Range Interpretation Comments HEMOGLOBIN (BEAKER) (test code = 6.8 GM/DL 13.7-17.5 L 410) HEMATOCRIT (BEAKER) (test code = 21.6 % 40.1-51.0 L 411) LACTIC ACID, VENOUS, WHOLE [id number] 23:30:00 Test Item Value Reference Range Interpretation Comments LACTATE BLOOD VENOUS 1.2 mmol/L 0.5-2.2 Specime n slightly (2) (BEAKER) (test hemolyzed code = 2872) Effective 02/25/2016: Units/Reference Range ChangeNew: 0.5-2.2 mmol/L Previous: 5-20 mg/dLSpecimen moderately [id number] 23:08:00 Test Item Value Reference Range Interpretation Comments PROCALCITONIN (BEAKER) (test code 0.48 ng/mL <0.05 H = 3036) SEPSIS RISK (ng/mL)Low: 0.05-0.50Intermediate: 0.51-2.00High: >=2.01RAD, CHEST, 1 VIEW, NON [id number] 23:07:00Reason for exam:->abd painShould this be performed [...] MDReport Verified Date/Time: 07/06/2018 23:07:59 Reading Location: [address] Consult Reading Room [id number] 22:48:00 Test Item Value Reference Range Interpretation Comments LIPASE (BEAKER) (test code = 749) > U/L 8-78 H Specimen moderately [id number] 22:42:00 Test Item Value Reference Range Interpretation Comments MAGNESIUM (BEAKER) (test code = 1.9 mg/dL 1.6-2.6 627) COMPREHENSIVE METABOLIC [id number] 22:42:00 Test Item Value Reference Range Interpretation Comments TOTAL PROTEIN 6.2 gm/dL 6.0-8.3 (BEAKER) (test code = 770) ALBUMIN (BEAKER) 3.4 g/dL 3.5-5.0 L (test code = 1145) ALKALINE PHOSPHATASE 264 U/L 40-150 H (BEAKER) (test code = 346) BILIRUBIN TOTAL 4.9 mg/dL 0.2-1.2 H (BEAKER) (test code = 377) SODIUM (BEAKER) (test 135 meq/L 136-145 L code = 381) POTASSIUM (BEAKER) 4.3 meq/L 3.5-5.1 (test code = 379) CHLORIDE (BEAKER) 97 meq/L 98-107 L (test code = 382) CO2 (BEAKER) (test 27 meq/L 22-29 code = 355) BLOOD UREA NITROGEN 19 mg/dL 7-21 (BEAKER) (test code = 354) CREATININE (BEAKER) 1.46 mg/dL 0.57-1.25 H (test code = 358) GLUCOSE RANDOM 148 mg/dL 70-105 H (BEAKER) (test code = 652) CALCIUM (BEAKER) 8.7 mg/dL 8.4-10.2 (test code = 697) AST (SGOT) (BEAKER) 76 U/L 5-34 H (test code = 353) ALT (SGPT) (BEAKER) 46 U/L 6-55 (test code = 347) EGFR (BEAKER) (test 50 mL/min/1.73 ESTIMA KIMBER GFR IS code = 1092) sq m NOT ACCURATE CREATININE CLEARANCE IN PREDICTING GLOMERULAR FILTRATION RATE . ESTIMATED GFR I S NOT APPLICABLE FOR DIALYSIS PATIEN TS. Specimen moderately ictericCBC W/PLT COUNT & AUTO [id number] 22:23:00 Test Item Value Reference Range Interpretation Comments WHITE BLOOD CELL COUNT (BEAKER) 11.6 K/ L 3.5-10.5 H (test code = 775) RED BLOOD CELL COUNT (BEAKER) 4.56 M/ L 4.63-6.08 L (test code = 761) HEMOGLOBIN (BEAKER) (test code = 12.6 GM/DL 13.7-17.5 L 410) HEMATOCRIT (BEAKER) (test code = 39.2 % 40.1-51.0 L 411) MEAN CORPUSCULAR VOLUME (BEAKER) 86.0 fL 79.0-92.2 (test code = 753) MEAN CORPUSCULAR HEMOGLOBIN 27.6 pg 25.7-32.2 (BEAKER) (test code = 751) MEAN CORPUSCULAR HEMOGLOBIN CONC 32.1 GM/DL 32.3-36.5 L (BEAKER) (test code = 752) RED CELL DISTRIBUTION WIDTH 15.9 % 11.6-14.4 H (BEAKER) (test code = 412) PLATELET COUNT (BEAKER) (test 251 K/CU MM 150-450 code = 756) MEAN PLATELET VOLUME (BEAKER) 9.7 fL 9.4-12.4 (test code = 754) NUCLEATED RED BLOOD CELLS 0 /100 WBC 0-0 (BEAKER) (test code = 413) NEUTROPHILS RELATIVE PERCENT 80 % (BEAKER) (test code = 429) LYMPHOCYTES RELATIVE PERCENT 10 % (BEAKER) (test code = 430) MONOCYTES RELATIVE PERCENT 9 % (BEAKER) (test code = 431) EOSINOPHILS RELATIVE PERCENT 0 % (BEAKER) (test code = 432) BASOPHILS RELATIVE PERCENT 0 % (BEAKER) (test code = 437) NEUTROPHILS ABSOLUTE COUNT 9.26 K/ L 1.78-5.38 H (BEAKER) (test code = 670) LYMPHOCYTES ABSOLUTE COUNT 1.19 K/ L 1.32-3.57 L (BEAKER) (test code = 414) MONOCYTES ABSOLUTE COUNT (BEAKER) 1.07 K/ L 0.30-0.82 H (test code = 415) EOSINOPHILS ABSOLUTE COUNT 0.03 K/ L 0.04-0.54 L (BEAKER) (test code = 416) BASOPHILS ABSOLUTE COUNT (BEAKER) 0.03 K/ L 0.01-0.08 (test code = 417) IMMATURE GRANULOCYTES-RELATIVE 0 % 0-1 PERCENT (BEAKER) (test code = 2801) [id number] 22:20:00 Test Item Value Reference Range Interpretation Comments PARTIAL THROMBOPLASTIN TIME 31.2 seconds 22.5-36.0 (BEAKER) (test code = 760) PROTHROMBIN [id number] 22:19:00 Test Item Value Reference Range Interpretation Comments PROTIME (BEAKER) (test code = 17.0 seconds 11.7-14.7 H 759) INR (BEAKER) (test code = 370) 1.4 <=5.9 RECOMMENDED COUMADIN/WARFARIN INR THERAPY RANGESSTANDARD DOSE: 2.0 - 3.0 Includes: PROPHYLAXIS forvenous thrombosis, systemic embolization; TREATMENT for venous thrombosis and/or pulmonary embolus.HIGH RISK: Target INR is 2.5-3.5 for patients with mechanical heart valves.POCT-LACTIC ACID, [id number] 22:15:00 Test Item Value Reference Range Interpretation Comments POC-LACTIC ACID, 1.3 mmol/L 0.9-1.7 TESTED AT [facility] 67[address] VENOUS (BEAKER) (test [place]VEIEVE [place]ER[place] code = 2805) [address] POCT-BLOOD GASES, [id number] 22:15:00 Test Item Value Reference Range Interpretation Comments TEMP, CELSIUS-POC 37.0 (BEAKER) (test code = 1834) FIO2-POC (BEAKER) TESTED AT [place] [address] (test code = 1835) [facility] [address] PH, VENOUS-POC 7.388 7.320-7.420 (BEAKER) (test code = 1842) PCO2, VENOUS-POC 52.9 mm Hg 41.0-51.0 H (BEAKER) (test code = 1843) PO2, VENOUS-POC 31.0 mm Hg 25.0-40.0 (BEAKER) (test code = 1844) SO2, VENOUS-POC 57.0 % 40.0-70.0 (BEAKER) (test code = 1845) HCO3, VENOUS-POC 31.9 meq/L 21.0-29.0 H (BEAKER) (test code = 1846) BASE EXCESS, 7.0 meq/L -2.0-3.0 H VENOUS-POC ([facility]) (test code = 1847) [id number] 22:15:00 Test Item Value Reference Range Interpretation Comments POC-SODIUM ([facility]) 136 meq/L 135-148 TESTED A [place] [address] (test code = 1542) [facility] [address] [id number] 22:15:00 Test Item Value Reference Range Interpretation Comments POC-POTASSIUM 4.3 meq/L 3.6-5.5 TESTED AT [place] [address] ([facility]) (test code [place] [id number] = 1540) [id number] 22:15:00 Test Item Value Reference Range Interpretation Comments POC-GLUCOSE ([facility] [facility] 147 mg/dL 70-110 H TESTED AT [place] [address] (test code = 1855) [facility] [address] POCT-CALCIUM [id number] 22:15:00 Test Item Value Reference Range Interpretation Comments POC-CALCIUM IONIZED 1.10 mmol/L 1.12-1.27 L TESTED [place] [address] ([facility]) (test code = [facility] 1536) [address] [id number] 22:15:00 Test Item Value Reference Range Interpretation Comments POC-HEMATOCRIT 38 % 40-50 L TESTED AT [place] [address] ([facility]) (test code = [facility] [address] 1331) [id number] 22:15:00 Test Item Value Reference Range Interpretation Comments POC-HEMOGLOBIN 12.9 g/dL 13.0-16.8 L TESTED AT [place] [address] ([facility]) (test code [place] = 1856) 43152UZQOPM AT [place] [address] [place] [address] POCT-GLUCOSE [id number] 21:38:00 Test Item Value Reference Range Interpretation Comments POC-GLUCOSE METER 138 mg/dL 70-110 H TESTED AT [place] [address] ([facility]) (test code = [facility] Janis [facility] 1538) [address] POCT-GLUCOSE [id number] 19:35:00 Test Item Value Reference Range Interpretation Comments POC-GLUCOSE METER 116 mg/dL 70-110 H TESTED AT [place] [address] ([facility]) (test code = [facility] Janis [facility] 1538) [address] PROTHROMBIN [id number] 18:18:00 Test Item Value Reference Range Interpretation Comments PROTIME ([facility]) (test code = 15.5 seconds 11.7-14.7 H 759) INR ([facility]) (test code = 370) 1.2 <=5.9 RECOMMENDED COUMADIN/WARFARIN INR THERAPY RANGESSTANDARD DOSE: 2.0 - 3.0 Includes: PROPHYLAXIS forvenous thrombosis, systemic embolization; TREATMENT for venous thrombosis and/or pulmonary embolus.HIGH RISK: Target INR is 2.5-3.5 for patients with mechanical heart valves.[id number] 18:18:00 Test Item Value Reference Range Interpretation Comments PARTIAL THROMBOPLASTIN TIME 36.5 seconds 22.5-36.0 H ([facility]) (test code = 760) CBC W/PLT COUNT & AUTO [id number] 18:11:00 Test Item Value Reference Range Interpretation Comments WHITE BLOOD CELL COUNT ([facility]) 9.6 K/ L 3.5-10.5 (test code = 775) RED BLOOD CELL COUNT ([facility]) 6.06 M/ L 4.63-6.08 (test code = 761) HEMOGLOBIN ([facility]) (test code = 16.4 GM/DL 13.7-17.5 410) HEMATOCRIT ([facility]) (test code = 51.8 % 40.1-51.0 H 411) MEAN CORPUSCULAR VOLUME (BEAKER) 85.5 fL 79.0-92.2 (test code = 753) MEAN CORPUSCULAR HEMOGLOBIN 27.1 pg 25.7-32.2 (BEAKER) (test code = 751) MEAN CORPUSCULAR HEMOGLOBIN CONC 31.7 GM/DL 32.3-36.5 L (BEAKER) (test code = 752) RED CELL DISTRIBUTION WIDTH 16.2 % 11.6-14.4 H (BEAKER) (test code = 412) PLATELET COUNT (BEAKER) (test 247 K/CU MM 150-450 code = 756) MEAN PLATELET VOLUME (BEAKER) 10.5 fL 9.4-12.4 (test code = 754) NUCLEATED RED BLOOD CELLS 0 /100 WBC 0-0 (BEAKER) (test code = 413) NEUTROPHILS RELATIVE PERCENT 75 % (BEAKER) (test code = 429) LYMPHOCYTES RELATIVE PERCENT 14 % (BEAKER) (test code = 430) MONOCYTES RELATIVE PERCENT 8 % (BEAKER) (test code = 431) EOSINOPHILS RELATIVE PERCENT 3 % (BEAKER) (test code = 432) BASOPHILS RELATIVE PERCENT 0 % (BEAKER) (test code = 437) NEUTROPHILS ABSOLUTE COUNT 7.19 K/ L 1.78-5.38 H (BEAKER) (test code = 670) LYMPHOCYTES ABSOLUTE COUNT 1.30 K/ L 1.32-3.57 L (BEAKER) (test code = 414) MONOCYTES ABSOLUTE COUNT (BEAKER) 0.74 K/ L 0.30-0.82 (test code = 415) EOSINOPHILS ABSOLUTE COUNT 0.24 K/ L 0.04-0.54 (BEAKER) (test code = 416) BASOPHILS ABSOLUTE COUNT (BEAKER) 0.04 K/ L 0.01-0.08 (test code = 417) IMMATURE GRANULOCYTES-RELATIVE 0 % 0-1 PERCENT (BEAKER) (test code = 2801) FL, [id number] 17:27:00Reason for exam:->cbd stonesFINAL REPORT Fluoroscopy. History: Intraoperative. Findings: Radiologist was not present for the exam. Fluoroscopy was not performed by the undersigned. Please see operative/endoscopy report for details. Fluoroscopy Time: 2.5 min.One spot image was saved. IMPRESSION:Intraoperative fluoroscopy. Please see operative report for details. Signed: Steve Hernandezeport Verified Date/Time: 07/06/2018 17:27:55 Reading Location: [facility] Diagnostic Imaging Reading Room - [facility] 1.310.12 POCT-GLUCOSE [id number] 12:00:00 Test Item Value Reference Range Interpretation Comments POC-GLUCOSE METER 100 mg/dL 70-110 TESTED AT [facility] 6720 (BEAKER) (test code = [facility] 1538) [address] POCT-GLUCOSE [id number] 08:03:00 Test Item Value Reference Range Interpretation Comments POC-GLUCOSE METER 116 mg/dL 70-110 H TESTED AT [place] [address] (BEAKER) (test code = [facility] 1538) [address] [id number] 07:04:00 Test Item Value Reference Range Interpretation Comments MAGNESIUM (BEAKER) (test code = 2.3 mg/dL 1.6-2.6 627) BASIC METABOLIC [id number] 07:04:00 Test Item Value Reference Range Interpretation Comments SODIUM (BEAKER) 136 meq/L 136-145 (test code = 381) POTASSIUM (BEAKER) 3.9 meq/L 3.5-5.1 (test code = 379) CHLORIDE (BEAKER) 96 meq/L 98-107 L (test code = 382) CO2 (BEAKER) (test 31 meq/L 22-29 H code = 355) BLOOD UREA NITROGEN 18 mg/dL 7-21 (BEAKER) (test code = 354) CREATININE (BEAKER) 1.17 mg/dL 0.57-1.25 (test code = 358) GLUCOSE RANDOM 132 mg/dL 70-105 H (BEAKER) (test code = 652) CALCIUM (BEAKER) 9.6 mg/dL 8.4-10.2 (test code = 697) EGFR (BEAKER) (test 64 mL/min/1.73 ESTIMA KIMBER GFR IS code = 1092) sq m NOT ACCURATE CREATININE CLEARANCE IN PREDICTING GLOMERULAR FILTRATION RATE . ESTIMATED GFR I S NOT APPLICABLE FOR DIALYSIS PATIEN TS. Specimen moderately ictericHEPATIC FUNCTION [id number] 07:04:00 Test Item Value Reference Range Interpretation Comments TOTAL PROTEIN (BEAKER) (test code = 7.2 gm/dL 6.0-8.3 770) ALBUMIN (BEAKER) (test code = 1145) 3.8 g/dL 3.5-5.0 BILIRUBIN TOTAL (BEAKER) (test code 5.9 mg/dL 0.2-1.2 H = 377) BILIRUBIN DIRECT (BEAKER) (test 4.0 mg/dL 0.1-0.5 H code = 706) ALKALINE PHOSPHATASE (BEAKER) (test 317 U/L 40-150 H code = 346) AST (SGOT) (BEAKER) (test code = 110 U/L 5-34 H 353) ALT (SGPT) (BEAKER) (test code = 57 U/L 6-55 H 347) Specimen moderately [id number] 03:15:00 Test Item Value Reference Range Interpretation Comments MAGNESIUM (BEAKER) 2.5 mg/dL 1.6-2.6 Specimen slightly (test code = 627) hemolyzed BASIC METABOLIC [id number] 03:15:00 Test Item Value Reference Range Interpretation Comments SODIUM (BEAKER) 135 meq/L 136-145 L (test code = 381) POTASSIUM (BEAKER) 4.6 meq/L 3.5-5.1 Specimen slightly (test code = 379) hemolyzed CHLORIDE (BEAKER) 95 meq/L 98-107 L (test code = 382) CO2 (BEAKER) (test 28 meq/L 22-29 code = 355) BLOOD UREA NITROGEN 18 mg/dL 7-21 (BEAKER) (test code = 354) CREATININE (BEAKER) 1.10 mg/dL 0.57-1.25 Specimen slightly (test code = 358) hemolyzed GLUCOSE RANDOM 150 mg/dL 70-105 H (BEAKER) (test code = 652) CALCIUM (BEAKER) 9.6 mg/dL 8.4-10.2 (test code = 697) EGFR (BEAKER) (test 69 mL/min/1.73 ESTIMA KIMBER GFR IS code = 1092) sq m NOT ACCURATE CREATININE CLEARANCE IN PREDICTING GLOMERULAR FILTRATION RATE . ESTIMATED GFR I S NOT APPLICABLE FOR DIALYSIS PATIEN TS. Specimen moderately ictericHEPATIC FUNCTION [id number] 03:15:00 Test Item Value Reference Range Interpretation Comments TOTAL PROTEIN (BEAKER) 7.7 gm/dL 6.0-8.3 Speci men slightly (test code = 770) hemolyzed ALBUMIN (BEAKER) (test 3.9 g/dL 3.5-5.0 Speci men slightly code = 1145) hemolyzed BILIRUBIN TOTAL 6.0 mg/dL 0.2-1.2 H Specimen sli ghtly (BEAKER) (test code = hemoly zed 377) BILIRUBIN DIRECT 3.6 mg/dL 0.1-0.5 H Specimen sl ightly (BEAKER) (test code = hemoly zed 706) ALKALINE PHOSPHATASE 330 U/L 40-150 H (BEAKER) (test code = 346) AST (SGOT) (BEAKER) 110 U/L 5-34 H Specimen slightly (test code = 353) hemolyzed ALT (SGPT) (BEAKER) 55 U/L 6-55 Specimen slightly (test code = 347) hemolyzed Specimen moderately ictericPOCT-GLUCOSE [id number] 22:02:00 Test Item Value Reference Range Interpretation Comments POC-GLUCOSE METER 140 mg/dL 70-110 H TESTED AT [place] [address] ([facility]) (test code = [facility] [place] 1538) [address] POCT-GLUCOSE [id number] 16:27:00 Test Item Value Reference Range Interpretation Comments POC-GLUCOSE METER 103 mg/dL 70-110 TESTED AT [place] [address] ([facility]) (test code = [facility] [place] 1538) [address] POCT-GLUCOSE [id number] 11:55:00 Test Item Value Reference Range Interpretation Comments POC-GLUCOSE METER 123 mg/dL 70-110 H TESTED AT [place] [address] ([facility]) (test code = [facility] [place] 1538) [address] POCT-GLUCOSE [id number] 08:13:00 Test Item Value Reference Range Interpretation Comments POC-GLUCOSE METER 116 mg/dL 70-110 H TESTED AT [place] [address] ([facility]) ([facility] = [facility] [place] 1538) [address] [id number] 07:53:00 Test Item Value Reference Range Interpretation Comments MAGNESIUM (BEAKER) (test code = 1.9 mg/dL 1.6-2.6 627) BASIC METABOLIC [id number] 07:53:00 Test Item Value Reference Range Interpretation Comments SODIUM (BEAKER) 141 meq/L 136-145 (test code = 381) POTASSIUM (BEAKER) 3.6 meq/L 3.5-5.1 (test code = 379) CHLORIDE (BEAKER) 98 meq/L 98-107 (test code = 382) CO2 (BEAKER) (test 32 meq/L 22-29 H code = 355) BLOOD UREA NITROGEN 19 mg/dL 7-21 (BEAKER) (test code = 354) CREATININE (BEAKER) 1.14 mg/dL 0.57-1.25 (test code = 358) GLUCOSE RANDOM 101 mg/dL 70-105 (BEAKER) (test code = 652) CALCIUM (BEAKER) 9.6 mg/dL 8.4-10.2 (test code = 697) EGFR (BEAKER) (test 66 mL/min/1.73 ESTIMA KIMBER GFR IS code = 1092) sq m NOT ACCURATE CREATININE CLEARANCE IN PREDICTING GLOMERULAR FILTRATION RATE . ESTIMATED GFR I S NOT APPLICABLE FOR DIALYSIS PATIEN TS. Specimen slightly ictericHEPATIC FUNCTION [id number] 07:53:00 Test Item Value Reference Range Interpretation Comments TOTAL PROTEIN (BEAKER) (test code = 7.4 gm/dL 6.0-8.3 770) ALBUMIN (BEAKER) (test code = 1145) 3.9 g/dL 3.5-5.0 BILIRUBIN TOTAL (BEAKER) (test code 2.1 mg/dL 0.2-1.2 H = 377) BILIRUBIN DIRECT (BEAKER) (test 1.1 mg/dL 0.1-0.5 H code = 706) ALKALINE PHOSPHATASE (BEAKER) (test 111 U/L 40-150 code = 346) AST (SGOT) (BEAKER) (test code = 24 U/L 5-34 353) ALT (SGPT) (BEAKER) (test code = 12 U/L 6-55 347) Specimen slightly ictericPOCT-GLUCOSE [id number] 20:53:00 Test Item Value Reference Range Interpretation Comments POC-GLUCOSE METER 168 mg/dL 70-110 H TESTED AT [facility] 6720 (BEAKER) (test code = [place] 1538) [address] [id number] 17:12:00 Test Item Value Reference Range Interpretation Comments MAGNESIUM (BEAKER) (test code = 2.1 mg/dL 1.6-2.6 627) BASIC METABOLIC [id number] 17:12:00 Test Item Value Reference Range Interpretation Comments SODIUM (BEAKER) 140 meq/L 136-145 (test code = 381) POTASSIUM (BEAKER) 3.6 meq/L 3.5-5.1 (test code = 379) CHLORIDE (BEAKER) 96 meq/L 98-107 L (test code = 382) CO2 (BEAKER) (test 35 meq/L 22-29 H code = 355) BLOOD UREA NITROGEN 22 mg/dL 7-21 H (BEAKER) (test code = 354) CREATININE (BEAKER) 1.35 mg/dL 0.57-1.25 H (test code = 358) GLUCOSE RANDOM 148 mg/dL 70-105 H (BEAKER) (test code = 652) CALCIUM (BEAKER) 9.9 mg/dL 8.4-10.2 (test code = 697) EGFR (BEAKER) (test 55 mL/min/1.73 ESTIMA KIMBER GFR IS code = 1092) sq m NOT ACCURATE CREATININE CLEARANCE IN PREDICTING GLOMERULAR FILTRATION RATE . ESTIMATED GFR I S NOT APPLICABLE FOR DIALYSIS PATIEN TS. POCT-GLUCOSE [id number] 17:00:00 Test Item Value Reference Range Interpretation Comments POC-GLUCOSE METER 138 mg/dL 70-110 H TESTED AT [facility] 6720 ([facility]) (test code = [place] 1538) [address] POCT-GLUCOSE [id number] 12:09:00 Test Item Value Reference Range Interpretation Comments POC-GLUCOSE METER 111 mg/dL 70-110 H TESTED AT [facility] 6720 ([facility]) (test code = [facility] [place] 1538) [address] POCT-GLUCOSE [id number] 07:30:00 Test Item Value Reference Range Interpretation Comments POC-GLUCOSE METER 102 mg/dL 70-110 TESTED AT [facility] 6720 ([facility]) (test code = [place] 1538) [address] U/S, ABDOMINAL, [id number] 07:27:00Please perform with doppler to evaluate for [...] The spleen is normal in size and echo- texture measuring 12 cm. The right kidney measures [...] MDReport Verified Date/Time: 07/04/2018 07:27:18 Reading Location: [facility] [id number] Ultrasound Reading Room [id number] 07:12:00 Test Item Value Reference Range Interpretation Comments MAGNESIUM (BEAKER) 1.8 mg/dL 1.6-2.6 Specimen slightly (test code = 627) hemolyzed BASIC METABOLIC [id number] 07:12:00 Test Item Value Reference Range Interpretation Comments SODIUM (BEAKER) 140 meq/L 136-145 (test code = 381) POTASSIUM (BEAKER) 3.7 meq/L 3.5-5.1 Specimen slightly (test code = 379) hemolyzed CHLORIDE (BEAKER) 100 meq/L 98-107 (test code = 382) CO2 (BEAKER) (test 29 meq/L 22-29 code = 355) BLOOD UREA NITROGEN 22 mg/dL 7-21 H (BEAKER) (test code = 354) CREATININE (BEAKER) 1.09 mg/dL 0.57-1.25 Specimen slightly (test code = 358) hemolyzed GLUCOSE RANDOM 103 mg/dL 70-105 (BEAKER) (test code = 652) CALCIUM (BEAKER) 9.4 mg/dL 8.4-10.2 (test code = 697) EGFR (BEAKER) (test 70 mL/min/1.73 ESTIMA KIMBER GFR IS code = 1092) sq m NOT ACCURATE CREATININE CLEARANCE IN PREDICTING GLOMERULAR FILTRATION RATE . ESTIMATED GFR I S NOT APPLICABLE FOR DIALYSIS PATIEN TS. HEPATIC FUNCTION [id number] 07:12:00 Test Item Value Reference Range Interpretation Comments TOTAL PROTEIN (BEAKER) 6.8 gm/dL 6.0-8.3 Speci men slightly (test code = 770) hemolyzed ALBUMIN (BEAKER) (test 3.6 g/dL 3.5-5.0 Speci men slightly code = 1145) hemolyzed BILIRUBIN TOTAL 1.8 mg/dL 0.2-1.2 H Specimen sli ghtly (BEAKER) (test code = hemoly zed 377) BILIRUBIN DIRECT 0.7 mg/dL 0.1-0.5 H Specimen sl ightly (BEAKER) (test code = hemoly zed 706) ALKALINE PHOSPHATASE 100 U/L 40-150 (BEAKER) (test code = 346) AST (SGOT) (BEAKER) 26 U/L 5-34 Specimen slightly (test code = 353) hemolyzed ALT (SGPT) (BEAKER) 13 U/L 6-55 Specimen slightly (test code = 347) hemolyzed PROTHROMBIN [id number] 07:11:00 Test Item Value Reference Range Interpretation Comments PROTIME (BEAKER) (test code = 16.4 seconds 11.7-14.7 H 759) INR (BEAKER) (test code = 370) 1.3 <=5.9 RECOMMENDED COUMADIN/WARFARIN INR THERAPY RANGESSTANDARD DOSE: 2.0 - 3.0 Includes: PROPHYLAXIS forvenous thrombosis, systemic embolization; TREATMENT for venous thrombosis and/or pulmonary embolus.HIGH RISK: Target INR is 2.5-3.5 for patients with mechanical heart valves.POCT-GLUCOSE [id number] 20:11:00 Test Item Value Reference Range Interpretation Comments POC-GLUCOSE METER 156 mg/dL 70-110 H TESTED AT [facility] 67 (BEAKER) (test code = [place] 1538) [address] [id number] 17:51:00 Test Item Value Reference Range Interpretation Comments MAGNESIUM (BEAKER) (test code = 1.9 mg/dL 1.6-2.6 627) BASIC METABOLIC [id number] 17:51:00 Test Item Value Reference Range Interpretation Comments SODIUM (BEAKER) 139 meq/L 136-145 (test code = 381) POTASSIUM (BEAKER) 3.7 meq/L 3.5-5.1 (test code = 379) CHLORIDE (BEAKER) 98 meq/L 98-107 (test code = 382) CO2 (BEAKER) (test 30 meq/L 22-29 H code = 355) BLOOD UREA NITROGEN 23 mg/dL 7-21 H (BEAKER) (test code = 354) CREATININE (BEAKER) 1.31 mg/dL 0.57-1.25 H (test code = 358) GLUCOSE RANDOM 144 mg/dL 70-105 H (BEAKER) (test code = 652) CALCIUM (BEAKER) 10.1 mg/dL 8.4-10.2 (test code = 697) EGFR (BEAKER) (test 57 mL/min/1.73 ESTIMA KIMBER GFR IS code = 1092) sq m NOT ACCURATE CREATININE CLEARANCE IN PREDICTING GLOMERULAR FILTRATION RATE . ESTIMATED GFR I S NOT APPLICABLE FOR DIALYSIS PATIEN TS. POCT-GLUCOSE [id number] 16:12:00 Test Item Value Reference Range Interpretation Comments POC-GLUCOSE METER 89 mg/dL 70-110 TESTED AT [facility] 6720 (ASIM) (test code = [place] [address] 1538) U/S, DUPLEX, [id number] 15:18:00Please perform with doppler to evaluate for thrombosis Reason for exam:->elevated bilirubin, abd pain Should this be performed at the bedside?->NoFINAL REPORT HISTORY : Elevated bilirubin, abdominal pain COMPARISON : No comparisons available for review COMMENT : Complete ultrasound examination of the abdomen with color Dopp ler and spectral evaluation of the abdominal vasculature [...] flow. Signed: Steve Hernandez MDReport Verified Date/Time: 07/03/2018 15:18:31 Reading Location: [facility] P006J Ultrasound Reading Room POCT-GLUCOSE [id number] 12:46:00 Test Item Value Reference Range Interpretation Comments POC-GLUCOSE METER 102 mg/dL 70-110 TESTED AT [facility] 6720 (BEAKER) (test code = [place] 1538) [address] [id number] 07:10:00 Test Item Value Reference Range Interpretation Comments PHOSPHORUS (BEAKER) (test code = 3.7 mg/dL 2.3-4.7 604) [id number] 07:10:00 Test Item Value Reference Range Interpretation Comments MAGNESIUM (BEAKER) (test code = 1.8 mg/dL 1.6-2.6 627) BASIC METABOLIC [id number] 07:10:00 Test Item Value Reference Range Interpretation Comments SODIUM (BEAKER) 136 meq/L 136-145 (test code = 381) POTASSIUM (BEAKER) 4.2 meq/L 3.5-5.1 (test code = 379) CHLORIDE (BEAKER) 103 meq/L 98-107 (test code = 382) CO2 (BEAKER) (test 24 meq/L 22-29 code = 355) BLOOD UREA NITROGEN 27 mg/dL 7-21 H (BEAKER) (test code = 354) CREATININE (BEAKER) 1.28 mg/dL 0.57-1.25 H (test code = 358) GLUCOSE RANDOM 121 mg/dL 70-105 H (BEAKER) (test code = 652) CALCIUM (BEAKER) 9.5 mg/dL 8.4-10.2 (test code = 697) EGFR (BEAKER) (test 58 mL/min/1.73 ESTIMA KIMBER GFR IS code = 1092) sq m NOT ACCURATE CREATININE CLEARANCE IN PREDICTING GLOMERULAR FILTRATION RATE . ESTIMATED GFR I S NOT APPLICABLE FOR DIALYSIS PATIEN TS. HEPATIC FUNCTION [id number] 07:10:00 Test Item Value Reference Range Interpretation Comments TOTAL PROTEIN (BEAKER) (test code = 6.8 gm/dL 6.0-8.3 770) ALBUMIN (BEAKER) (test code = 1145) 3.6 g/dL 3.5-5.0 BILIRUBIN TOTAL (BEAKER) (test code 1.7 mg/dL 0.2-1.2 H = 377) BILIRUBIN DIRECT (BEAKER) (test 0.8 mg/dL 0.1-0.5 H code = 706) ALKALINE PHOSPHATASE (BEAKER) (test 98 U/L 40-150 code = 346) AST (SGOT) (BEAKER) (test code = 24 U/L 5-34 353) ALT (SGPT) (BEAKER) (test code = 14 U/L 6-55 347) POCT-GLUCOSE [id number] 07:02:00 Test Item Value Reference Range Interpretation Comments POC-GLUCOSE METER 112 mg/dL 70-110 H TESTED AT [facility] 6720 (BEAKER) (test code = GENEVIEVE Bruce [facility] 1538) [address] POCT-GLUCOSE [id number] 21:51:00 Test Item Value Reference Range Interpretation Comments POC-GLUCOSE METER 147 mg/dL 70-110 H TESTED AT [facility] 6720 (BEAKER) (test code = GENEVIEVE Bruce [facility] 1538) [address] [id number] 20:05:00 Test Item Value Reference Range Interpretation Comments MAGNESIUM (BEAKER) 2.1 mg/dL 1.6-2.6 Specimen slightly (test code = 627) hemolyzed BASIC METABOLIC [id number] 20:05:00 Test Item Value Reference Range Interpretation Comments SODIUM (BEAKER) 136 meq/L 136-145 (test code = 381) POTASSIUM (BEAKER) 4.1 meq/L 3.5-5.1 Specimen slightly (test code = 379) hemolyzed CHLORIDE (BEAKER) 100 meq/L 98-107 (test code = 382) CO2 (BEAKER) (test 25 meq/L 22-29 code = 355) BLOOD UREA NITROGEN 27 mg/dL 7-21 H (BEAKER) (test code = 354) CREATININE (BEAKER) 1.62 mg/dL 0.57-1.25 H Specimen slightly (test code = 358) hemolyzed GLUCOSE RANDOM 110 mg/dL 70-105 H (BEAKER) (test code = 652) CALCIUM (BEAKER) 9.6 mg/dL 8.4-10.2 (test code = 697) EGFR (BEAKER) (test 44 mL/min/1.73 ESTIMA KIMBER GFR IS code = 1092) sq m NOT ACCURATE CREATININE CLEARANCE IN PREDICTING GLOMERULAR FILTRATION RATE . ESTIMATED GFR I S NOT APPLICABLE FOR DIALYSIS PATIEN TS. POCT-GLUCOSE [id number] 17:05:00 Test Item Value Reference Range Interpretation Comments POC-GLUCOSE METER 111 mg/dL 70-110 H TESTED AT [facility] 6720 ([facility]) (test code = [facility] 1538) [address] POCT-GLUCOSE [id number] 11:34:00 Test Item Value Reference Range Interpretation Comments POC-GLUCOSE METER 142 mg/dL 70-110 H TESTED AT [place] [address] ([facility]) (test code = [facility] 1538) [address] POCT-GLUCOSE [id number] 07:43:00 Test Item Value Reference Range Interpretation Comments POC-GLUCOSE METER 110 mg/dL 70-110 TESTED AT [place] [address] ([facility]) (test code = [facility] 1538) [id number] 07:13:00 Test Item Value Reference Range Interpretation Comments PHOSPHORUS (BEAKER) (test code = 4.3 mg/dL 2.3-4.7 604) [id number] 07:13:00 Test Item Value Reference Range Interpretation Comments MAGNESIUM (BEAKER) (test code = 2.0 mg/dL 1.6-2.6 627) BASIC METABOLIC [id number] 07:13:00 Test Item Value Reference Range Interpretation Comments SODIUM (BEAKER) 133 meq/L 136-145 L (test code = 381) POTASSIUM (BEAKER) 4.4 meq/L 3.5-5.1 (test code = 379) CHLORIDE (BEAKER) 102 meq/L 98-107 (test code = 382) CO2 (BEAKER) (test 20 meq/L 22-29 L code = 355) BLOOD UREA NITROGEN 28 mg/dL 7-21 H (BEAKER) (test code = 354) CREATININE (BEAKER) 1.72 mg/dL 0.57-1.25 H (test code = 358) GLUCOSE RANDOM 116 mg/dL 70-105 H (BEAKER) (test code = 652) CALCIUM (BEAKER) 9.5 mg/dL 8.4-10.2 (test code = 697) EGFR (BEAKER) (test 41 mL/min/1.73 ESTIMA KIMBER GFR IS code = 1092) sq m NOT ACCURATE CREATININE CLEARANCE IN PREDICTING GLOMERULAR FILTRATION RATE . ESTIMATED GFR I S NOT APPLICABLE FOR DIALYSIS PATIEN TS. HEPATIC FUNCTION [id number] 07:13:00 Test Item Value Reference Range Interpretation Comments TOTAL PROTEIN (BEAKER) (test code = 6.9 gm/dL 6.0-8.3 770) ALBUMIN (BEAKER) (test code = 1145) 3.7 g/dL 3.5-5.0 BILIRUBIN TOTAL (BEAKER) (test code 1.7 mg/dL 0.2-1.2 H = 377) BILIRUBIN DIRECT (BEAKER) (test 0.8 mg/dL 0.1-0.5 H code = 706) ALKALINE PHOSPHATASE (BEAKER) (test 93 U/L 40-150 code = 346) AST (SGOT) (BEAKER) (test code = 22 U/L 5-34 353) ALT (SGPT) (BEAKER) (test code = 11 U/L 6-55 347) [id number] 07:13:00 Test Item Value Reference Range Interpretation Comments LIPASE (BEAKER) (test code = 749) 21 U/L 8-78 B-TYPE NATRIURETIC FACTOR (BNP)2018-07-02 07:13:00 Test Item Value Reference Range Interpretation Comments B-TYPE NATRIURETIC PEPTIDE (BEAKER) 689 pg/mL 0-100 H (test code = 700) POCT-GLUCOSE [id number] 22:15:00 Test Item Value Reference Range Interpretation Comments POC-GLUCOSE METER 124 mg/dL 70-110 H TESTED AT [facility] 6720 (BEAKER) (test code = GENEVIEVE Bruce [facility] 1538) [address] RAD, CHEST, 1 VIEW, NON [id number] 18:03:00Reason for exam:->chest painShould this be performed at the bedside?->YesFINAL REPORT AP chest HISTORY: Chest pain COMPARISON: None IMPRESSION:Status post median sternotomy. No acute skeletal findings. Cardiomegaly. Diffuse interstitial edema. Moderate right effusion. No pneumothorax. Signed: Emile Shirley MDReport Verified Date/Time: 07/01/2018 18:03:03 Reading Location: [facility] C013Y CT Body Reading Room POCT-GLUCOSE [id number] 17:04:00 Test Item Value Reference Range Interpretation Comments POC-GLUCOSE METER 146 mg/dL 70-110 H TESTED AT [place] [address] ([facility]) (test code = GENEVIEVE Bruce [facility] 1538) [address] POCT-GLUCOSE [id number] 11:52:00 Test Item Value Reference Range Interpretation Comments POC-GLUCOSE METER 163 mg/dL 70-110 H TESTED AT [place] [address] ([facility]) (test code = VIVEKOK Janis [facility] 1538) [address] HEMOGLOBIN [id number] 08:13:00 Test Item Value Reference Range Interpretation Comments HEMOGLOBIN A1C ([facility]) (test code = 7.1 % 4.3-6.1 H 368) POCT-GLUCOSE [id number] 08:00:00 Test Item Value Reference Range Interpretation Comments POC-GLUCOSE METER 113 mg/dL 70-110 H TESTED AT [place] [address] ([facility]) (test code = [facility] 1538) [id number] TROPONIN [id number] 02:30:00 Test Item Value Reference Range Interpretation Comments TROPONIN I ([facility]) (test code = 0.03 ng/mL 0.00-0.03 397) Troponin I (TnI) levels must be interpreted [...] acute neurological disease, and persistent tachyarrhythmia.BASIC METABOLIC [id number] 02:24:00 Test Item Value Reference Range Interpretation Comments SODIUM (BEAKER) 133 meq/L 136-145 L (test code = 381) POTASSIUM (BEAKER) 4.3 meq/L 3.5-5.1 Specimen slightly (test code = 379) hemolyzed CHLORIDE (BEAKER) 101 meq/L 98-107 (test code = 382) CO2 (BEAKER) (test 20 meq/L 22-29 L code = 355) BLOOD UREA NITROGEN 19 mg/dL 7-21 (BEAKER) (test code = 354) CREATININE (BEAKER) 1.15 mg/dL 0.57-1.25 Specimen slightly (test code = 358) hemolyzed GLUCOSE RANDOM 119 mg/dL 70-105 H (BEAKER) (test code = 652) CALCIUM (BEAKER) 9.1 mg/dL 8.4-10.2 (test code = 697) EGFR (BEAKER) (test 66 mL/min/1.73 ESTIMA KIMBER GFR IS code = 1092) sq m NOT ACCURATE CREATININE CLEARANCE IN PREDICTING GLOMERULAR FILTRATION RATE . ESTIMATED GFR I S NOT APPLICABLE FOR DIALYSIS PATIEN TS. HEPATIC FUNCTION [id number] 02:24:00 Test Item Value Reference Range Interpretation Comments TOTAL PROTEIN (BEAKER) 7.0 gm/dL 6.0-8.3 Speci men slightly (test code = 770) hemolyzed ALBUMIN (BEAKER) (test 3.7 g/dL 3.5-5.0 Speci men slightly code = 1145) hemolyzed BILIRUBIN TOTAL 1.8 mg/dL 0.2-1.2 H Specimen sli ghtly (BEAKER) (test code = hemoly zed 377) BILIRUBIN DIRECT 0.8 mg/dL 0.1-0.5 H Specimen sl ightly (BEAKER) (test code = hemoly zed 706) ALKALINE PHOSPHATASE 87 U/L 40-150 (BEAKER) (test code = 346) AST (SGOT) (BEAKER) 18 U/L 5-34 Specimen slightly (test code = 353) hemolyzed ALT (SGPT) (BEAKER) 8 U/L 6-55 Specimen slightly (test code = 347) hemolyzed [id number] 02:23:00 Test Item Value Reference Range Interpretation Comments PHOSPHORUS (BEAKER) (test code = 4.4 mg/dL 2.3-4.7 604) [id number] 02:23:00 Test Item Value Reference Range Interpretation Comments MAGNESIUM (BEAKER) (test code = 1.8 mg/dL 1.6-2.6 627) BASIC METABOLIC [id number] 02:23:00 Test Item Value Reference Range Interpretation Comments SODIUM (BEAKER) 132 meq/L 136-145 L (test code = 381) POTASSIUM (BEAKER) 4.2 meq/L 3.5-5.1 (test code = 379) CHLORIDE (BEAKER) 100 meq/L 98-107 (test code = 382) CO2 (BEAKER) (test 21 meq/L 22-29 L code = 355) BLOOD UREA NITROGEN 19 mg/dL 7-21 (BEAKER) (test code = 354) CREATININE (BEAKER) 1.15 mg/dL 0.57-1.25 (test code = 358) GLUCOSE RANDOM 118 mg/dL 70-105 H (BEAKER) (test code = 652) CALCIUM (BEAKER) 9.1 mg/dL 8.4-10.2 (test code = 697) EGFR (BEAKER) (test 66 mL/min/1.73 ESTIMA KIMBER GFR IS code = 1092) sq m NOT ACCURATE CREATININE CLEARANCE IN PREDICTING GLOMERULAR FILTRATION RATE . ESTIMATED GFR I S NOT APPLICABLE FOR DIALYSIS PATIEN TS. LIPID [id number] 02:23:00 Test Item Value Reference Range Interpretation Comments TRIGLYCERIDES (BEAKER) (test code = 62 mg/dL 540) CHOLESTEROL (BEAKER) (test code = 145 mg/dL 631) HDL CHOLESTEROL (BEAKER) (test code 30 mg/dL = 976) LDL CHOLESTEROL CALCULATED (BEAKER) 103 mg/dL (test code = 633) Triglyceride Reference Range: Low Risk <150 Borderline 150-199 High Risk 200-499 Very High Risk >=500Cholesterol Reference Range: Low Risk <200 Borderline 200-239 High Risk >240HDL Cholesterol Reference Range: Low Risk >=60 High Risk <40LDL Cholesterol Reference Range: Optimal <100 Near Optimal 100-129 Borderline 130-159 High 160-189 Very High >=190POCT-GLUCOSE [id number] 23:01:00 Test Item Value Reference Range Interpretation Comments POC-GLUCOSE METER 143 mg/dL 70-110 H TESTED AT [facility] 67[address] ([facility]) (test code = [facility] 1533) [address] TSH/FREE T4 IF [id number] 18:47:00 Test Item Value Reference Range Interpretation Comments THYROID STIMULATING HORMONE 3.50 uIU/mL 0.35-4.94 (BEAKER) (test code = 772) TROPONIN [id number] 18:35:00 Test Item Value Reference Range Interpretation Comments TROPONIN I ([facility]) (test code = 0.01 ng/mL 0.00-0.03 397) Troponin I (TnI) levels must be interpreted [...] acidosis, acute neurological disease, and persistent tachyarrhythmia.POCT-GLUCOSE [id number] 18:18:00 Test Item Value Reference Range Interpretation Comments POC-GLUCOSE METER 149 mg/dL 70-110 H TESTED AT [place] [address] ([facility]) (test code = [facility] 1538) [id number] HEMOGLOBIN AND [id number] 18:08:00 Test Item Value Reference Range Interpretation Comments HEMOGLOBIN ([facility]) (test code = 15.8 GM/DL 13.7-17.5 410) HEMATOCRIT ([facility]) (test code = 49.9 % 40.1-51.0 411) POCT-GLUCOSE [id number] 15:23:00 Test Item Value Reference Range Interpretation Comments POC-GLUCOSE METER 158 mg/dL 70-110 H TESTED AT [place] [address] ([facility]) (test code = [facility] 1538) [id number]
[2020-09-15 18:46] LABS: Absolute Lymphocytes (CBC) 1.5 K/uL (0.7-4.9); Basophils % 1.2 % (0-1.3); Hematocrit 49.4 % (39.6-49.0); Lymphocytes % 18.9 % (15.3-44.8); RBC Red Blood Cell Count 6.08 M/uL (4.33-5.43)
[2020-09-15 18:48] LABS: Protime INR 0.98
[2020-09-15] MEDS ORDERED: NITROGLYCERIN 0.4 MG/TAB SL ONE (18:57)
--- NOTE | 2020-09-15 18:59 | RAD REPORT ---
EXAM DESCRIPTION: RAD - Chest Single View - 09/15/2020 6:53 pm CLINICAL HISTORY: CHEST PAIN Chest pain. COMPARISON: Chest Single View dated 09/20/2018; Chest Single View dated 08/13/2018; Chest Single Vie w dated 08/13/2018; Chest Single View dated 06/30/2018 FINDINGS: Portable technique limits examination quality. Mild interstitial pulmonary edema. The heart is moderately enlarged in size. No displaced fractures.S ternotomy wires are present. IMPRESSION: Mild CHF.
[2020-09-15] MEDS ORDERED: ASPIRIN 81 MG CHEWABLE TABLET ONE (19:00)
[2020-09-15 19:33] LABS: ALT/SGPT 21 U/L (12-78); Albumin 3.8 g/dL (3.4-5.0); Alkaline Phosphatase 78 U/L (45-117); BUN Blood Urea Nitrogen 13 mg/dL (7-18); Bicarbonate 26 mmol/L (21-32); Bilirubin Direct < 0.1 mg/dL (0-0.2); Bilirubin Total 0.6 mg/dL (0.2-1.0); Glucose Level 227 mg/dL (74-106); NT PRO-BNP 402 pg/mL (<125); Protein, Total 7.9 g/dL (6.4-8.2); Sodium Level 136 mmol/L (136-145); Troponin (Emerg Dept Use Only) 0.17 ng/mL (0.0-0.045)
[2020-09-15 19:35] LABS: AST/SGOT 26 U/L (15-37); Magnesium 1.8 mg/dL (1.8-2.4); Potassium 4.2 mmol/L (3.5-5.1)
[2020-09-15] MEDS ORDERED: FUROSEMIDE 40 MG/4 ML VIAL ONE (19:50)
--- NOTE | 2020-09-15 19:51 | EDPHYS ---
Physician Documentation [facility] Name: Chicho Weldon Age: 60 yrs Sex: Male : 1960 Arrival Date: 09/15/2020 Time: 18:03 Bed 24 Private MD: ED Physician Yobani Wasserman HPI: 09/15 19:18 This 60 yrs old Male presents to ER via Ambulatory with complaints of Chest jr8 Pain. 19:18 The patient or guardian reports chest pain that is located primarily in the substernal jr8 area. Onset: acutely, today. The pain radiates to jaw. Associated signs and symptoms: Pertinent positives: shortness of breath. The chest pain is described as a pressure. Duration: The patient or guardian reports a single episode, that is still ongoing. Modifying factors: The symptoms are alleviated by nothing. the symptoms are aggravated by nothing. Severity of pain: At its worst the pain was moderate in the emergency department the pain is unchanged. The patient has experienced a previous episode. The patient has not recently seen a physician. Patient with CAD, HTN, DM resulting in bypass surgery several years ago. Stated that he has since been off of his medications and has no PCP. Stated that he started to have twinge in chest that today started with pressure radiating to jaw. Patient markedly hypertensive upon arrival to ED . Historical: - Allergies: 18:12 Iodine; ca1 18:12 SEAFOOD; ca1 - Home Meds: 18:12 Supposed to take meds but not taking meds for years now [Active]; ca1 - PMHx: 18:12 CABG; Colitis; diabetes- resolved; gastric cardiac distress; Hypertension; Kidney ca1 stones; Myocardial infarction; pleurasy; prostate hypertrophy; syncope; vasovagal; - PSHx: 18:12 CABG; Cholecystectomy; ca1 - Immunization history:: Adult Immunizations up to date, Flu vaccine is not up to date. - Social history:: Smoking status: Patient denies any tobacco usage or history of. ROS: 19:18 Eyes: Negative for injury, pain, redness, and discharge, ENT: Negative for injury, jr8 pain, and discharge, Neck: Negative for injury, pain, and swelling, Abdomen/GI: Negative for abdominal pain, nausea, vomiting, diarrhea, and constipation, Back: Negative for injury and pain, MS/Extremity: Negative for injury and deformity, Skin: Negative for injury, rash, and discoloration, Neuro: Negative for headache, weakness, numbness, tingling, and seizure. 19:18 Cardiovascular: Positive for chest pain, Negative for edema, orthopnea, palpitations, paroxysmal nocturnal dyspnea. 19:18 Respiratory: Positive for shortness of breath. Exam: 19:18 Eyes: Pupils equal round and reactive to light, extra-ocular motions intact. Lids and jr8 lashes normal. Conjunctiva and sclera are non-icteric and not injected. Cornea within normal limits. Periorbital areas with no swelling, redness, or edema. ENT: Nares patent. No nasal discharge, no septal abnormalities noted. Tympanic membranes are normal and external auditory canals are clear. Oropharynx with no redness, swelling, or masses, exudates, or evidence of obstruction, uvula midline. Mucous membranes moist. Neck: Trachea midline, no thyromegaly or masses palpated, and no cervical lymphadenopathy. Supple, full range of motion without nuchal rigidity, or vertebral point tenderness. No Meningismus. Cardiovascular: Regular rate and rhythm with a normal S1 and S2. No gallops, murmurs, or rubs. Normal PMI, no JVD. No pulse deficits. Respiratory: Lungs have equal breath sounds bilaterally, clear to auscultation and percussion. No rales, rhonchi or wheezes noted. No increased work of breathing, no retractions or nasal flaring. Abdomen/GI: Soft, non-tender, with normal bowel sounds. No distension or tympany. No guarding or rebound. No evidence of tenderness throughout. Back: No spinal tenderness. No costovertebral tenderness. Full range of motion. Skin: Warm, dry with normal turgor. Normal color with no rashes, no lesions, and no evidence of cellulitis. MS/ Extremity: Pulses equal, no cyanosis. Neurovascular intact. Full, normal range of motion. Neuro: Awake and alert, GCS 15, oriented to person, place, time, and situation. Cranial nerves II-XII grossly intact. Motor strength 5/5 in all extremities. Sensory grossly intact. Vital Signs: 18:06 BP 207 / 141; Pulse 94; Resp 18 S; Temp 97.8(TE); Pulse Ox 99% on R/A; Weight 90.72 kg ca1 (R); Height 5 ft. 6 in. (167.64 cm) (R); Pain 6/10; 19:20 BP 146 / 98; Pulse 92; Resp 18 S; Pulse Ox 97% on R/A; zb 20:20 BP 161 / 102; Pulse 86; Resp 16; Pulse Ox 96% on R/A; zb 22:32 BP 141 / 100; Pulse 78; Resp 17 S; Pulse Ox 98% on R/A; jd3 18:06 Body Mass Index 32.28 (90.72 kg, 167.64 cm) ca1 MDM: 18:24 Patient medically screened. jr8 19:48 The patient was given aspirin in the Emergency Department. Data reviewed: vital signs, [facility] nurses notes, lab test result(s), EKG, radiologic studies, plain films. Data interpreted: Pulse oximetry: on room air is 96 %. Interpretation: acceptable. Counseling: I had a detailed discussion with the patient and/or guardian regarding: the historical points, exam findings, and any diagnostic results supporting the discharge/admit diagnosis, lab results, radiology results, the need for further work-up and treatment in the hospital. Response to treatment: the patient's symptoms have mildly improved after treatment. 09/15 18:24 Order name: Basic Metabolic Panel; Complete Time: 19:36 [facility] 09/15 18:24 Order name: CBC with Diff; Complete Time: 19:04 [facility] 09/15 18:24 Order name: LFT's; Complete Time: 19:36 [facility] 09/15 18:24 Order name: Magnesium; Complete Time: 19:36 [facility] 09/15 18:24 Order name: NT PRO-BNP; Complete Time: 19:36 [facility] 09/15 18:24 Order name: PT-INR; Complete Time: 19:04 [facility] 09/15 18:24 Order name: Troponin (emerg Dept Use Only); Complete Time: 19:36 [facility] 09/16 00:01 Order name: Troponin I [facility] 09/16 00:01 Order name: Glucose, Ancillary Testing [facility] 09/16 03:45 Order name: CBC with Automated Diff [facility] 09/16 04:11 Order name: Basic Metabolic Panel [facility] 09/16 04:11 Order name: Troponin I EDA[facility] 09/16 04:11 Order name: Lipid Profile E[facility] 09/16 04:11 Order name: T4 Free E[facility] 09/15 18:13 Order name: EKG; Complete Time: 18:13 ca1 09/15 18:13 Order name: EKG - Nurse/Tech; Complete Time: 18:13 ca1 09/15 18:24 Order name: XRAY Chest (1 view); Complete Time: 19:04 [facility] 09/15 18:24 Order name: Cardiac monitoring; Complete Time: 18:25 [facility] 09/15 18:24 Order name: IV Saline Lock; Complete Time: 18:40 [facility] 09/16 04:11 Order name: Magnesium [facility] 09/16 04:11 Order name: Thyroid Stimulating Hormone [facility] 09/16 04:22 Order name: LDL, Direct [facility] 09/16 04:32 Order name: COVID-19 la1 09/16 08:14 Order name: Glucose, Ancillary Testing E[facility] 09/16 11:06 Order name: Troponin I [facility] 09/16 11:27 Order name: Hemoglobin A1c [facility] 09/15 18:24 Order name: Labs collected and sent; Complete Time: 18:40 [facility] 09/15 18:24 Order name: O2 Per Protocol; Complete Time: 18:25 [facility] 09/15 18:24 Order name: O2 Sat Monitoring; Complete Time: 18:25 jr8 Administered Medications: 18:49 Drug: Nitroglycerin 0.4 mg Route: Sublingual; zb 18:57 Follow up: Response: Pain is decreased zb 18:49 Drug: Aspirin Chewable Tablet 324 mg Route: PO; zb 19:00 Follow up: Response: No adverse reaction; Pain is decreased zb 19:43 Drug: Lasix 40 mg Route: IVP; Site: right antecubital; zb 20:18 Follow up: Response: No adverse reaction zb 20:18 Drug: Lovenox 1 mg/kg Route: Sub-Q; Site: right lower abdomen; zb 20:25 Follow up: Response: No adverse reaction zb Disposition: 09/17 10:56 Co-signature as Attending Physician, Yobani Wasserman MD I agree with the assessment and paulino plan of care. Disposition: 09/15/20 19:50 Hospitalization ordered by Sukhdeep Drake for Inpatient Admission. Preliminary diagnosis are Non-ST elevation (NSTEMI) myocardial infarction, Hypertensive Emergency . - Bed requested for [facility] ER HOLD. - Status is Inpatient Admission. iw - Condition is Fair. - Problem is new. - Symptoms have improved. Signatures: Dispatcher [employer] EDMS Je Hutchinson, RN RN sg Yobani Wasserman MD MD cha Williams, Irene, RN RN iw Frank Flynn PA PA jr8 Samreen Payne RN SAIGE [facility] Mehnaz Dsouza RN RN zb Corrections: (The following items were deleted from the chart) 09/15 20:17 19:50 Hospitalization Ordered by Moises Rogers MD for Inpatient Admission. Preliminary jr8 diagnosis is Non-ST elevation (NSTEMI) myocardial infarction; Hypertensive Emergency . Bed requested for Telemetry/MedSurg (Inpatient). Status is Inpatient Admission. Condition is Fair. Problem is new. Symptoms have improved. jr8 22:56 20:17 09/15/2020 19:50 Hospitalization Ordered by Sukhdeep Drake DO for Inpatient sg Admission. Preliminary diagnosis is Non-ST elevation (NSTEMI) myocardial infarction; Hypertensive Emergency . Bed requested for Telemetry/MedSurg (Inpatient). Status is Inpatient Admission. Condition is Fair. Problem is new. Symptoms have improved. jr8 09/16 13:19 09/15 22:56 09/15/2020 19:50 Hospitalization Ordered by Sukhdeep Drake DO for Inpatient iw Admission. Preliminary diagnosis is Non-ST elevation (NSTEMI) myocardial infarction; Hypertensive Emergency . Bed requested for [facility] ER HOLD. Status is Inpatient Admission. Condition is Fair. Problem is new. Symptoms have improved. sg
--- NOTE | 2020-09-15 19:51 | ER ---
Nurse's Notes [facility] Name: Chicho Weldon Age: 60 yrs Sex: Male : 1960 Arrival Date: 09/15/2020 Time: 18:03 Bed 24 Private MD: Diagnosis: Non-ST elevation (NSTEMI) myocardial infarction;Hypertensive Emergency Presentation: 09/15 18:06 Chief complaint: Patient states: Chest pain started at 1500 today. L sided, radiating ca1 to the L jaw. intermittent, tightness, pain scale 6/10. Previous Hx of heart attack with Triple bypass. Reports SOB with chest pain. Denies injury. Denies cough. Coronavirus screen: Client denies travel out of the [place] in the last 14 days. shortness of breath, Client presents with at least one sign or symptom that may indicate coronavirus-19. Standard/surgical mask placed on the client. Provider contacted for isolation considerations. Ebola Screen: Patient negative for fever greater than or equal to 101.5 degrees Fahrenheit, and additional compatible Ebola Virus Disease symptoms Patient denies exposure to infectious person. Patient denies travel to an Ebola-affected area in the 21 days before illness onset. No symptoms or risks identified at this time. Initial Sepsis Screen: Does the patient meet any 2 criteria? No. Patient's initial sepsis screen is negative. Does the patient have a suspected source of infection? No. Patient's initial sepsis screen is negative. Risk Assessment: Do you want to hurt yourself or someone else? Patient reports no desire to harm self or others. Onset of symptoms was September 15, 2020 at 15:00. 18:06 Method Of Arrival: Ambulatory ca1 18:06 Acuity: AMANDA 2 ca1 Historical: - Allergies: 18:12 Iodine; ca1 18:12 SEAFOOD; ca1 - Home Meds: 18:12 Supposed to take meds but not taking meds for years now [Active]; ca1 - PMHx: 18:12 CABG; Colitis; diabetes- resolved; gastric cardiac distress; Hypertension; Kidney ca1 stones; Myocardial infarction; pleurasy; prostate hypertrophy; syncope; vasovagal; - PSHx: 18:12 CABG; Cholecystectomy; ca1 - Immunization history:: Adult Immunizations up to date, Flu vaccine is not up to date. - Social history:: Smoking status: Patient denies any tobacco usage or history of. Screenin:40 Abuse screen: Denies threats or abuse. Nutritional screening: No deficits noted. jd3 Tuberculosis screening: No symptoms or risk factors identified. Fall Risk Ambulatory Aid- None/Bed Rest/Nurse Assist (0 pts). Gait- Normal/Bed Rest/Wheelchair (0 pts) Mental Status- Oriented to own ability (0 pts). Total Kasper Fall Scale indicates No Risk (0-24 pts). Assessment: 18:20 General: Appears in no apparent distress. uncomfortable, Behavior is calm, cooperative, zb appropriate for age. Pain: Complains of pain in left arm. Neuro: Level of Consciousness is awake, alert, Oriented to person, place, time, situation. Cardiovascular: Reports chest pain, fatigue, mild SOB Denies nausea, vomiting. Respiratory: Airway is patent Respiratory effort is even, unlabored. GI: No signs and/or symptoms were reported involving the gastrointestinal system. : No signs and/or symptoms were reported regarding the genitourinary system. EENT: No signs and/or symptoms were reported regarding the EENT system. Derm: Skin is intact, is healthy with good turgor, Skin is pink, warm \T\ dry. 19:16 Reassessment: Patient and/or family updated on plan of care and expected duration. Pain zb level reassessed. Patient is alert, oriented x 3, equal unlabored respirations, skin warm/dry/pink. Patient denies pain at this time. Patient states feeling better. 20:16 Reassessment: Patient appears in no apparent distress at this time. Patient and/or zb family updated on plan of care and expected duration. Pain level reassessed. Patient is alert, oriented x 3, equal unlabored respirations, skin warm/dry/pink. pt in bed resting comfortably Patient denies pain at this time. Patient states feeling better. 22:33 Reassessment: Patient appears in no apparent distress at this time. Patient and/or jd3 family updated on plan of care and expected duration. Pain level reassessed. Patient is alert, oriented x 3, equal unlabored respirations, skin warm/dry/pink. charting continued in [facility]. Patient denies pain at this time. Patient states feeling better. Vital Signs: 18:06 BP 207 / 141; Pulse 94; Resp 18 S; Temp 97.8(TE); Pulse Ox 99% on R/A; Weight 90.72 kg ca1 (R); Height 5 ft. 6 in. (167.64 cm) (R); Pain 6/10; 19:20 BP 146 / 98; Pulse 92; Resp 18 S; Pulse Ox 97% on R/A; zb 20:20 BP 161 / 102; Pulse 86; Resp 16; Pulse Ox 96% on R/A; zb 22:32 BP 141 / 100; Pulse 78; Resp 17 S; Pulse Ox 98% on R/A; jd3 18:06 Body Mass Index 32.28 (90.72 kg, 167.64 cm) ca1 ED Course: 18:03 Patient arrived in ED. ag5 18:10 Triage completed. ca1 18:12 Arm band placed on right wrist. ca1 18:23 Frank Flynn PA is PHCP. jr8 18:23 Yobani Wasserman MD is Attending Physician. jr8 18:24 Richard Dumont, SAIGE is Primary Nurse. jd3 18:40 Richard Dumont RN is Primary Nurse. jd3 18:40 Inserted saline lock: 20 gauge in right antecubital area, using aseptic technique. jd3 Blood collected. Patient maintains SpO2 saturation greater than 95% on room air. 18:41 Patient has correct armband on for positive identification. Placed in gown. Bed in low jd3 position. Call light in reach. Side rails up X2. hat maker on. Pulse ox on. NIBP on. 18:44 Mehnaz Dsouza, SAIGE is Primary Nurse. zb 18:52 XRAY Chest (1 view) In Process Unspecified. EDMS 19:49 Moises Rogers MD is Hospitalizing Provider. jr8 20:17 Hospitalizing Provider role handed off by Moises Rogers MD jr8 20:17 Sukhdeep Drake DO is Hospitalizing Provider. jr8 22:34 No provider procedures requiring assistance completed. Patient admitted, IV remains in jd3 place. Administered Medications: 18:49 Drug: Nitroglycerin 0.4 mg Route: Sublingual; zb 18:57 Follow up: Response: Pain is decreased zb 18:49 Drug: Aspirin Chewable Tablet 324 mg Route: PO; zb 19:00 Follow up: Response: No adverse reaction; Pain is decreased zb 19:43 Drug: Lasix 40 mg Route: IVP; Site: right antecubital; zb 20:18 Follow up: Response: No adverse reaction zb 20:18 Drug: Lovenox 1 mg/kg Route: Sub-Q; Site: right lower abdomen; zb 20:25 Follow up: Response: No adverse reaction zb Output: 20:32 Urine: 320ml; Total: 320ml. zb Outcome: 19:50 Decision to Hospitalize by Provider. jr8 22:34 Admitted to ER Hold. Please see [facility] for further documentation. jd3 22:34 Condition: stable 22:34 Instructed on the need for admit, Demonstrated understanding of instructions. 09/16 13:19 Patient left the ED. iw Signatures: Dispatcher [employer] EDMS Cristina Jaramillo RN RN iw Frank Flynn PA PA jr8 Richard Dumont RN RN jSamreen Powell RN RN ca1 Abilio Munoz Mehnaz Calderon RN RN zb Corrections: (The following items were deleted from the chart) 09/15 18:14 18:06 Chief complaint: Patient states: Chest pain started at 1500 today. L sided, ca1 radiating to the L jaw. intermittent, tightness, pain scale 6/10. Previous Hx of heart attack with Triple bypass. Reports SOB with chest pain. Denies injury ca1 22:34 22:33 Reassessment: Patient appears in no apparent distress at this time. Patient jd3 and/or family updated on plan of care and expected duration. Pain level reassessed. Patient is alert, oriented x 3, equal unlabored respirations, skin warm/dry/pink. Patient denies pain at this time. Patient states feeling better. jd3 23:57 19:16 Reassessment: Patient and/or family updated on plan of care and expected zb duration. Pain level reassessed. Patient is alert/active/playful, equal unlabored respirations, skin warm/dry/pink. Patient denies pain at this time. Patient states feeling better. zb 23:57 20:16 Reassessment: Patient appears in no apparent distress at this time. Patient zb and/or family updated on plan of care and expected duration. Pain level reassessed. Patient is alert/active/playful, equal unlabored respirations, skin warm/dry/pink. pt in bed resting comfortably Patient denies pain at this time. Patient states feeling better. zb
[2020-09-15] MEDS ORDERED: ENOXAPARIN 100 MG/ML SYR SQ ONE ×2 (20:18→23:18)
--- NOTE | 2020-09-15 20:41 | P.HP ---
Certification for Inpatient Patient admitted to: Inpatient With expected LOS: >2 Midnights Patient will require the following post-hospital care: None Practitioner: I am a practitioner with admitting privileges, knowledge of patient current condition, hospital course, and medical plan of care. Services: Services provided to patient in accordance with Admission requirements found in Title 42 Section 412.3 of the Code of Federal Regulations <Tom Leon - Last Filed: 09/15/20 20:35> Patient History Date of Service: 09/15/20 Primary Care Provider: None Reason for admission: NSTEMI History of Present Illness: 52-year-old male with history of coronary artery disease S/P three- vessel CABG in 2013, CKD stage III, diabetes mellitus type 2, hypertension presents the emergency department presents emergency department for chest pain. Patient reports the pain began at approximately 3:00 p.m. this afternoon while he was reading. Patient reports pain as pressure-like associated with shortness of breath and radiated to left side of his neck. Pain was initially intermittent but then progressed to be persistent at around 5:00 p.m.. Patient presented to the emergency department for evaluation during evaluation patient was noted to have mildly elevated troponin 0.17 elevated BNP 4 to %period% creatinine 1.4 GFR 52 which is around his baseline. Blood sugar elevated to 227, patient reports he was previously diagnosed as diabetic but was well controlled with just diet. Chest x-ray significant for mild CHF. Patient with 1+ pitting edema bilateral lower extremities. Patient reports he recently gained some weight. Patient reports that he use to be on hypertensive agents, diuretics but stopped taking all these medications. When I saw the patient in the ER he was awake, alert, oriented x3. Patient currently chest pain-free. EKG without acute changes. Will admit on telemetry. - Past Medical/Surgical History Diabetic: Yes -: Hypertension -: Myocardial Infarction -: Chronic systolic congestive heart failure -: Diabetes mellitus type 2 -: CAD s/p three-vessel CABG 2013 -: Pericarditis -: Kidney Stones -: Gastric Cardiac Distress/Vasovagal -: Pericarditis -: Hyperlipidemia -: Cholecystectomy -: CABG 2013 Psychosocial/ Personal History: Patient is disabled, 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 - Family History Father -: Heart disease, GI disease, Diabetes, Kidney disease Mother -: Other (see notes) Notes: Alzheimers - Social History Smoking Status: Never smoker Alcohol use: Yes CD- Drugs: No Caffeine use: No Place of Residence: Home <Tom Leon - Last Filed: 09/15/20 20:35> Date of Service: 09/16/20 - Past Medical/Surgical History Diabetic: Yes <Sukhdeep Drake - Last Filed: 09/16/20 08:29> Allergies fish derived Allergy (Severe, Verified 08/12/18 21:09) Shortness of breath iodine Allergy (Severe, Verified 08/12/18 21:09) Shortness of breath Shellfish Allergy (Severe, Verified 08/12/18 21:09) Shortness of breath seafood Allergy (Uncoded 08/12/18 21:09) Shortness of breath Home Medications: NK [No Home Meds] 09/16/20 Review of Systems 10-point ROS is otherwise unremarkable Respiratory: As per HPI Cardiovascular: As per HPI <Tom Leon - Last Filed: 09/15/20 20:35> Physical Examination - Physical Exam General: Alert, In no apparent distress, Oriented x3 HEENT: Atraumatic, Normocephalic, PERRLA Neck: Supple Respiratory: Clear to auscultation bilaterally, Normal air movement Cardiovascular: Normal pulses, Regular rate/rhythm, Normal S1 S2, Edema (1+ pitting edema bilateral lower extremities) Capillary refill: <2 Seconds Gastrointestinal: Normal bowel sounds Musculoskeletal: No erythema, No tenderness Integumentary: No tenderness/swelling, No erythema Neurological: Normal speech, Normal strength at 5/5 x4 extr, Normal tone - Studies Laboratory Data (last 24 hrs) 09/15/20 18:35: PT 11.6, INR 0.98 09/15/20 18:35: WBC 8.1, Hgb 16.2, Hct 49.4 H, Plt Count 213 09/15/20 18:35: Sodium 136, Potassium 4.2, BUN 13, Creatinine 1.40 H, Glucose 227 H, Magnesium 1.8 D, Total Bilirubin 0.6, AST 26, ALT 21, Alkaline Phosphatase 78 <Tom Leon - Last Filed: 09/15/20 20:35> - Studies Laboratory Data (last 24 hrs) 09/15/20 18:35: PT 11.6, INR 0.98 09/15/20 18:35: WBC 8.1, Hgb 16.2, Hct 49.4 H, Plt Count 213 09/15/20 18:35: Sodium 136, Potassium 4.2, BUN 13, Creatinine 1.40 H, Glucose 227 H, Magnesium 1.8 D, Total Bilirubin 0.6, AST 26, ALT 21, Alkaline Phosphatase 78 <Sukhdeep Drake - Last Filed: 09/16/20 08:29> Assessment and Plan - Plan Assessment NSTEMI history of CAD S/P CABG 2013 Acute on chronic systolic congestive heart failure primary hypertension-uncontrolled Diabetes mellitus type 2-uncontrolled Hyperlipidemia Plan NSTEMI history of CAD S/P CABG 2014: Trend troponins, monitor on telemetry. Cardiology consult in place. Continue with daily aspirin, beta-david, statin, nitroglycerin, p.r.n. pain medications. Full-dose Lovenox. NPO after midnight. Acute on chronic systolic congestive heart failure: Last echocardiogram 2016 shows EF 41%. Patient reports previously being on diuretics but stopping taking them. Patient with 1+ pitting edema bilateral, continue with low-dose daily Lasix IV. primary hypertension-uncontrolled: Patient not taking home medications. Continue with metoprolol 25 mg p.o. b.i.d. at this time. Diabetes mellitus type 2-uncontrolled: A.c. HS Accu-Cheks, sliding scale insulin therapy. Hyperlipidemia: Atorvastatin 80 mg p.o. daily. Lipid panel with morning labs. Discharge Plan: Home Plan to discharge in: 24 Hours - Advance Directives Does patient have a Living Will: No Does patient have a Durable POA for Healthcare: No - Code Status/Comfort Care Code Status Assessed: Yes (Full code) Critical Care: No Time Spent Managing Pts Care (In Minutes): 55 <Tom Leon - Last Filed: 09/15/20 20:35> - Plan Case discussed at length with nurse practitioner. Agree with plan of care. Cardiology to further evaluate. Anticipate heart catheterization today. Please see progress note for details. <Sukhdeep Drake - Last Filed: 09/16/20 08:29>
[2020-09-15] MEDS ORDERED: MORPHINE 2 MG/ML SYR IV PRN (22:36)
[2020-09-15] MEDS ORDERED: ONDANSETRON 4 MG/2 ML VIAL IV PRN (22:36)
[2020-09-15] MEDS ORDERED: NITROGLYCERIN 0.4 MG/TAB SL PRN (22:36)
[2020-09-15] MEDS: INSULIN -REGULAR HUMAN 50 UNIT/0.5 ML ML SQ SCH (22:36)
[2020-09-15] MEDS: ATORVASTATIN 80 MG TAB PO SCH (22:36)
[2020-09-15] MEDS ORDERED: GLUCAGON 1 MG/VIAL IM PRN (22:36)
[2020-09-15] MEDS ORDERED: D50W 25 GM/50 ML SYRINGE IV PRN (22:36)
[2020-09-15 23:38] VITALS: BMI 32.3
[2020-09-16] MEDS ORDERED: INSULIN -REGULAR HUMAN 50 UNIT/0.5 ML ML ONE
[2020-09-16 03:44] LABS: Absolute Lymphocytes (CBC) 3.2 K/uL (0.7-4.9); Basophils % 1.2 % (0-1.3); Hematocrit 45.4 % (39.6-49.0); MPV 8.3 fL (7.6-11.3); RBC Red Blood Cell Count 5.65 M/uL (4.33-5.43)
[2020-09-16 04:09] LABS: BUN Blood Urea Nitrogen 15 mg/dL (7-18); Bicarbonate 29 mmol/L (21-32); Glucose Level 187 mg/dL (74-106); HDL Cholesterol 28 mg/dL (40-60); Magnesium 1.7 mg/dL (1.8-2.4); Potassium 3.8 mmol/L (3.5-5.1); Sodium Level 139 mmol/L (136-145)
[2020-09-16 04:11] LABS: Troponin I 8.63 ng/mL (0.0-0.045)
[2020-09-16 04:22] LABS: LDL, Direct 115 mg/dL (100-129)
[2020-09-16] MEDS ORDERED: MAGNESIUM SULFATE 1 gm IVPB 1 GM/100 ML BAG IV ONE ×2 (05:40→07:13)
[2020-09-16] MEDS ORDERED: METOPROLOL TAR 25 MG TAB PO SCH (06:00)
[2020-09-16] MEDS ORDERED: METOPROLOL TAR 25 MG TAB ONE (06:19)
[2020-09-16] MEDS: INSULIN -REGULAR HUMAN 50 UNIT/0.5 ML ML SQ SCH ×4 (07:30→21:42)
[2020-09-16] MEDS ORDERED: INFLUENZA VACCINE (for 3y+) 0.5 ML DOSE IMVAC ONE (08:00)
--- NOTE | 2020-09-16 08:28 | P.PN ---
Subjective Date of Service: 09/16/20 Primary Care Provider: None Chief Complaint: NSTEMI Subjective: Improving Physical Examination - Vital Signs Temperature: 98.5 F Blood Pressure: 150/60 Pulse: 83 Respirations: 18 Pulse Ox (%): 96 - Physical Exam General: Alert, In no apparent distress, Oriented x3, Cooperative HEENT: Atraumatic Neck: Supple Respiratory: Clear to auscultation bilaterally, Normal air movement Cardiovascular: Normal pulses, Regular rate/rhythm Gastrointestinal: Normal bowel sounds, No masses, No rebound, No guarding Neurological: Normal speech, Normal strength at 5/5 x4 extr, Normal tone, Normal affect - Studies Laboratory Data (last 24 hrs) 09/15/20 18:35: PT 11.6, INR 0.98 09/15/20 18:35: WBC 8.1, Hgb 16.2, Hct 49.4 H, Plt Count 213 09/15/20 18:35: Sodium 136, Potassium 4.2, BUN 13, Creatinine 1.40 H, Glucose 227 H, Magnesium 1.8 D, Total Bilirubin 0.6, AST 26, ALT 21, Alkaline Phosphatase 78 Medications List Reviewed: Yes Assessment & Plan Discharge Plan: Home Plan to discharge in: 48 Hours Physician Review Additional Text: Assessment Chest pain secondary to NSTEMI complicated with history of CAD S/P CABG 2013 Acute on chronic systolic congestive heart failure Hypertension on controlled Diabetes mellitus type 2 with hyperglycemia Mixed Hyperlipidemia Hypomagnesia Plan: Chest pain secondary to NSTEMI complicated with history of CAD S/P CABG 2014: Continue aspirin, beta-david, statin medication. Patient on full-dose Lovenox. Cardiology consulted. Anticipate heart catheterization today to further evaluate. Await findings. Will discuss further with cardiology. Acute on chronic systolic congestive heart failure: Will obtain echocardiogram to further evaluate. Continue IV Lasix. Will consider adding LAURE-inhibitor. Hypertension uncontrolled: Increase metoprolol. Consider adding LAURE-inhibitor. Diabetes mellitus type 2 with hyperglycemia: Will check A1c. Patient may require basal insulin. Continue Accu-Cheks and sliding scale. Mixed Hyperlipidemia: Continue Lipitor. Add fish oil. Hypomagnesia: Will continue to monitor and replace appropriately. Time Spent Managing Pts Care (In Minutes): 55
[2020-09-16] MEDS: ENOXAPARIN 100 MG/ML SYR SQ SCH ×2 (08:38→21:43)
[2020-09-16] MEDS: FUROSEMIDE 20 MG/ 2ML VIAL IV SCH (08:51)
[2020-09-16] MEDS: ASPIRIN EC 81 MG TAB PO SCH (08:52)
[2020-09-16] MEDS ORDERED: POTASSIUM CL SA 10 MEQ TAB PO ONE ×2 (09:00→09:02)
[2020-09-16] MEDS ORDERED: ASPIRIN EC 81 MG TAB PO ONE (09:02)
[2020-09-16] MEDS ORDERED: FUROSEMIDE 20 MG/ 2ML VIAL ONE (09:02)
[2020-09-16] MEDS ORDERED: predniSONE 20 MG TAB PO ONE (10:00)
[2020-09-16] MEDS ORDERED: predniSONE 20 MG TAB ONE (10:53)
[2020-09-16] MEDS ORDERED: HEPA 1000U/500MLS 1,000 UNIT/500 ML BAG IV ONE (11:04)
[2020-09-16] MEDS ORDERED: NA CHLORIDE 0.9% 1,000 ML ONE (11:21)
[2020-09-16] MEDS ORDERED: DIPHENHYDRAMINE 50 MG/ML VIAL ONE (11:50)
[2020-09-16] MEDS ORDERED: METHYLPREDNISOLONE 125 MG INJ ONE (11:50)
[2020-09-16] MEDS ORDERED: ATROPINE SULF 1 MG/10 ML SYR IV ONE (11:51)
[2020-09-16] MEDS ORDERED: FENTANYL CITR 100 MCG/2 ML ONE (11:51)
[2020-09-16] MEDS ORDERED: NA CHLORIDE 0.9% 50 ML ONE (11:51)
[2020-09-16] MEDS ORDERED: NITROGLYCERIN 100 MCG/ML SYR (for cath lab use only) IV ONE (11:51)
[2020-09-16] MEDS ORDERED: MIDAZOLAM HCL 2 MG/2 ML INJ ONE (11:51)
[2020-09-16] MEDS ORDERED: PRASUGREL (EFFIENT) 10 MG TAB ONE (12:39)
[2020-09-16] MEDS ORDERED: ASPIRIN 325 MG TAB ONE (12:39)
[2020-09-16] MEDS: METOPROLOL TAR 50 MG TAB PO SCH (17:12)
--- NOTE | 2020-09-16 18:13 | EKG ---
Test Date: 2020-09-15 Test Time: 18:16:01 Timber Cutter: GIOVANNI MEASUREMENT RESULTS: Intervals: Rate: 94 ME: 196 QRSD: 102 QT: 384 QTc: 480 [place]: P: 18 ME: 196 QRS: 110 T: 127 INTERPRETIVE STATEMENTS: Sinus rhythm with frequent premature ventricular complexes Possible Left atrial enlargement Right axis deviation ST & T wave abnormality, consider lateral ischemia Prolonged QT Abnormal ECG Compared to ECG 09/20/2018 16:52:34 Ventricular premature complex(es) now present Right-axis deviation now present ST (T wave) deviation now present Possible ischemia now present Prolonged QT interval now present Myocardial infarct finding no longer present T-wave abnormality no longer present Electronically Signed On 09-16-20 18:11:25 SHAKER SCREEN OPERATOR by Balwinder Ledesma
[2020-09-16] MEDS: ATORVASTATIN 80 MG TAB PO SCH (21:43)
--- NOTE | 2020-09-17 03:38 | OP ---
Date of Procedure: 09/16/2020 Surgeon: Balwinder Ledesma MD Motor Vehicle License Clerk: Nerissa Rangel. Procedures: Left heart catheterization, selective coronary arteriogram, vein graft injection of the OM and ZHOU as well as angioplasty and stent of the circumflex. Indication: Non-ST elevation myocardial infarction. Mr. Weldon is a 60-year-old, has had bypass surge ry in 2012, has been lost to follow up, came in with chest pain and non-STEMI. Brought to the cath l ab as an inpatient on 09/16/2020. He underwent left heart catheterization with selective coronary ar teriogram, vein graft injection to the OM and RCA and ZHOU injection. Procedure In Detail: Patient was brought to the aquatic life laborer, prepped and draped in the routine sterile fashion, given Versed and fentanyl for sedation. Using the Seldinger technique, we introduced a righ t common femoral artery 6-Prydeinig sheath without any complications. Angiography with JL4 initially re vealed totally occluded LAD with 90% circumflex proximally and 90% small OM. JR4 catheter was used t o cannulate the RCA. He had moderate plaquing throughout the RCA. Following that, the JR4 catheter selected a stump of the RCA graft that was another injection of graft that was obviously a graft for the OM, which was completely occluded with large amount of thrombus. The ZHOU injection showed paten t ZHOU to the LAD. However, the LAD itself distal to the anastomotic site had 90% sequential lesions in a very small distal vessel. Since the OM graft was occluded, I decided to stent the [place] circu mflex. An XB 3.5 guide with side hole was introduced in the left main successfully. A 0.014 [place] wire was used to cross the lesion successfully. The lesion was initially predilated with 2.25 x 12 E merge balloon dilatation catheter at 11 atmosphere x2 inflation for 30 seconds. Following that, 2.25 x 16 Synergy stent was placed with 0% residual. The small OM that had 90% stenosis remained open, b ut is too small to dilate or stent. Patient tolerated the procedure well. There were no complicatio ns. Blood Loss: 5 cc. Anesthesia: Total conscious sedation was 60 minutes. Patient received aspirin, Effient, Angiomax du ring the procedure. Postoperative Diagnosis: Severe coronary artery disease, status post successful angioplasty and sten t of the proximal circumflex. Severe coronary artery disease with patent ZHOU to the LAD and severe distal LAD disease that we will treat medically. Patient will remain in the hospital overnight. Ang io-Seal was used to close the case. Patient will eventually go home on aspirin, statin, Plavix, and low-dose beta david and probably Imdur or Ranexa, but we will see how he does overnight. ABBEY/TREE Voice ID: [id number] Report ID: [id number]
--- NOTE | 2020-09-17 03:44 | CON ---
Date of Consultation: 09/15/2020 Reason For Consultation: Non-ST elevation myocardial infarction. History Of Present Illness: Mr. Weldon is a 60-year-old white male. He has a history of coronary dorcas ry disease. He is status post coronary artery bypass surgery x3 and latest dating back to 2013. Has not really had much in the way for followup. He has had a history of diabetes, hypertension, kidney stones, vasovagal syncope, benign prostatic hypertrophy, and colitis. Came in with substernal chest pressure radiating to the jaw with shortness of breath and some diaphoresis but no nausea or vomitin g. He denied PND, orthopnea, pedal edema, palpitations, or syncope. He was found to have a positive troponin. Allergies: IODINE AND SEAFOOD. Review of Systems: Negative. Social History: Positive for tobacco. Family History: Positive for heart disease. Medications: At home are none. Physical Examination: Vital Signs: When he came in, his pressure was 207/141 with a pulse of 94. He was afebrile, O2 satu ration was 99% on room air. His weight was 90.72 kg. HEENT: Negative. Neck: Supple without any bruit, lymphadenopathy, JVD, or thyromegaly. Chest: Clear to auscultation and percussion. Cardiac: Revealed a regular rhythm and rate with an S4 gallops. No murmurs or rubs. Abdomen: Benign. Extremities: Reveal no clubbing, cyanosis, or edema. Diagnostic Data: His creatinine was 1.31. His glucose was 279. His BNP was 402. His troponin was 8.63. Chest x-ray was negative except for some mild CHF. His EKG showed sinus rhythm with frequent PVCs. ST-wave changes suggestive of lateral ischemia. He also has a prolonged QT. Impression And Plan: This is the patient with history of coronary artery bypass grafting x3 in 2013. He has hypertension, diabetes, noncompliance. He is not taking any medications at home and has bee n lost to follow up. Comes in with classic symptoms for coronary artery disease, positive troponin. We will proceed to take him to the manager lab today urgently to define his coronary anatomy. He under stands the risk and the benefits of the procedure and he agrees to proceed. Patient's present medica tions include aspirin, Lipitor, Lasix, Lovenox, insulin, and metoprolol. We will see what his anatom y shows before making further decisions. He will have to have prednisone before the procedure and IV Solu-Medrol during the procedure because of his iodine allergy. His blood pressure was very poorly controlled but is much better right now on the metoprolol, which we will continue. ABBEY/TREE Voice ID: [id number] Report ID: [id number]
[2020-09-17 04:35] LABS: Potassium 4.2 mmol/L (3.5-5.1)
[2020-09-17] MEDS: METOPROLOL TAR 50 MG TAB PO SCH (06:37)
--- NOTE | 2020-09-17 08:14 | PN ---
Date of Progress Note: 09/17/2020 Subjective: Mr. Weldon was admitted with a non-STEMI on 09/16/2020, underwent an urgent catheterizatio n showing complete occlusion of RCA graft with a fairly normal RCA artery except for plaquing. He box d a completely occluded vein graft to the OM. Proximal to mid circumflex stent was placed successful ly yesterday. His ZHOU was open to the LAD. He had diffuse disease, severe disease distal to the an astomotic site that will be treated medically. Overnight, he did well, no complaints. Objective: Vital Signs: Stable. Afebrile. Chest: Clear. Groin: No hematoma. Extremities: Distal pulses were present. Final Impression: Mr. Weldon has coronary artery disease, status post coronary artery bypass grafting, status post stent of the circumflex, now severe disease. Otherwise, he should be on aspirin, Lipito r, statin, and beta-david, preferably Imdur 30 mg daily. He can go home today and I will see him i n the office in the next 2 weeks. I will discuss the case further with Dr. Drake. ABBEY/TREE Voice ID: [id number] Report ID: [id number]
--- NOTE | 2020-09-17 08:39 | P.DS ---
Admission Date: 09/15/20 Discharge Date: 09/17/20 Primary Care Provider: None Disposition: ROUTINE DISCHARGE Discharge Condition: GOOD Reason for Admission: NSTEMI Consultations: Cardiology-Dr. Ledesma Procedures: COVID 19: Pending at DC CXR: FINDINGS: Portable technique limits examination quality. Mild interstitial pulmonary edema. The heart is moderately enlarged in size. No displaced fractures.Sternotomy wires are present. IMPRESSION: Mild CHF. Cardiac Intervention: Date of Procedure: 09/16/2020 Surgeon: Balwinder Ledesma MD Ore Trimmer: Nerissa Rnagel. Procedures: Left heart catheterization, selective coronary arteriogram, vein graft injection of the OM and ZHOU as well as angioplasty and stent of the circumflex. Indication: Non-ST elevation myocardial infarction. Mr. Weldon is a 60-year-old, has had bypass surgery in 2012, has been lost to follow up, came in with chest pain and non-STEMI. Brought to the microbiology laboratory manager as an inpatient on 09/16/2020. He underwent left heart catheterization with selective coronary arteriogram, vein graft injection to the OM and RCA and ZHOU injection. Procedure In Detail: Angiography with JL4 initially revealed totally occluded LAD with 90% circumflex proximally and 90% small OM. JR4 catheter was used to cannulate the RCA. He had moderate plaquing throughout the RCA. Following that, the JR4 catheter selected a stump of the RCA graft that was another injection of graft that was obviously a graft for the OM, which was completely occluded with large amount of thrombus. The ZHOU injection showed patent ZHOU to the LAD. However, the LAD itself distal to the anastomotic site had 90% sequential lesions in a very small distal vessel. Since the OM graft was occluded, I decided to stent the ekwok circumflex. An XB 3.5 guide with side hole was introduced in the left main successfully. A 0.014 [place] wire was used to cross the lesion successfully. The lesion was initially predilated with 2.25 x 12 Emerge balloon dilatation catheter at 11 atmosphere x2 inflation for 30 seconds. Following that, 2.25 x 16 Synergy stent was placed with 0% residual. The small OM that had 90% stenosis remained open, but is too small to dilate or stent. Patient tolerated the procedure well. There were no complications. Blood Loss: 5 cc. Anesthesia: Total conscious sedation was 60 minutes. Patient received aspirin, Effient, Angiomax during the procedure. Postoperative Diagnosis: Severe coronary artery disease, status post successful angioplasty and stent of the proximal circumflex. Severe coronary artery disease with patent ZHOU to the LAD and severe distal LAD disease that we will treat medically. Patient will remain in the hospital overnight. Angio-Seal was used to close the case. Patient will eventually go home on aspirin, statin, Plavix, and low-dose beta david and probably Imdur or Ranexa, but we will see how he does overnight. Assessment Chest pain secondary to NSTEMI complicated with history of CAD S/P CABG 2013 status post heart catheterization showing Severe Coronary artery disease with successful angioplasty and stent of proximal circumflex. Severe Coronary artery disease with patent zhou to LAD and severe distal LAD disease to be treated medically Hypertension uncontrolled Diabetes mellitus type 2 with hyperglycemia Mixed Hyperlipidemia Hypomagnesia Chronic renal disease stage III Subclinical hypothyroidism Poor compliance with follow up Brief History of Present Illness: 60-year-old male with history of CAD, prior CABG, diabetes mellitus type 2, chronic renal disease and CHF. Patient presented with chest pain and shortness of breath. Patient found to have NSTEMI. The patient was admitted for further evaluation and treatment. Patient has been without medical care for quite some time. Hospital Course: Patient presented with chest pain and shortness of breath secondary to NSTEMI. Patient with history of CAD status post CABG 2013, hypertension, hyperlipidemia, diabetes mellitus type 2. Patient has not been compliant with follow up. Patient was admitted for further evaluation and treatment. Patient was seen and evaluated by Cardiology. Cardiology recommended further cardiac intervention to further evaluate. Patient had heart catheterization showing Severe Coronary artery disease with successful angioplasty and stent of proximal circumflex. Severe Coronary artery disease with patent ZHOU to LAD and severe distal LAD disease to be treated medically. Patient has done well on done the course of his stay. Patient without significant chest pain and shortness of breath at discharge. At discharge the patient will continue with aspirin 81 mg daily, Plavix 75 mg daily, Lipitor 80 mg daily, metoprolol 50 mg 1 pill twice daily, and Imdur 30 mg daily. The patient will follow up with cardiology in 2-4 weeks to follow up his care. Education on the importance of compliance with medication follow up will be provided. Education on CAD, hypertension will also be provided. Patient with hypertension. Blood pressures were elevated upon arrival as the patient has not been on medication. At discharge blood pressure is better controlled. At discharge he will continue with metoprolol 50 mg 1 pill twice daily. Recommend to maintain blood pressure less than 130/80. Further adjustment can be done by his PCP. Patient will establish care with a local PCP to continue his care. Patient with diabetes mellitus type 2. Hyperglycemia noted. Hemoglobin A1c 9.8. This has remained stable on [id number]-icydbbk siding scale. Insulin NPH has been started. At discharge patient will continue with insulin NPH 10 units subcu twice daily. Recommend to maintain blood sugars less than 140 fasting and less than 200 after meals. Further adjustment in medication-insulin may be required if blood sugars remain above 200. Education on diabetes, insulin therapy will be provided. Patient will establish care with a PCP to continue management. Recommend to recheck A1c in 3 months to monitor his progress. Patient with chronic renal disease stage III. This appears stable. Recommend no further use of nonsteroidal anti-inflammatories. Future medications may need to be renally dosed. This can be further monitored and addressed by his PCP. Patient may benefit with nephrology evaluation as an outpatient to further address. Patient with mixed hyperlipidemia. Total triglycerides 457, LDL 115. Patient has been started on medication due to his CAD. At discharge the patient will continue with Lipitor 80 mg daily. Recommend to recheck fasting lipid panel in 4-6 weeks to monitor his progress. Further adjustment can be done by his PCP or cardiology. Patient with subclinical hypothyroidism. Tsh 6.6. Free T4 1.06. Recommend to recheck tsh and free T4 in 4-6 weeks. If still abnormal consider adding medication for hypothyroidism. This can be further addressed by his PCP. Vital Signs/Physical Exam: Temp Pulse Resp BP Pulse Ox 97.6 F 59 20 114/75 95 09/17/20 04:00 09/17/20 06:37 09/17/20 04:00 09/17/20 06:37 09/17/20 04:00 General: Alert, In no apparent distress, Oriented x3, Cooperative HEENT: Atraumatic Neck: Supple Respiratory: Clear to auscultation bilaterally, Normal air movement Cardiovascular: Normal pulses, Regular rate/rhythm Gastrointestinal: Normal bowel sounds, Soft and benign, Non-distended, No tenderness, No masses, No rebound, No guarding Musculoskeletal: No erythema, No tenderness, No warmth Integumentary: No tenderness/swelling, No erythema, No warmth, No cyanosis Neurological: Normal speech, Normal strength at 5/5 x4 extr, Normal tone, Normal affect Laboratory Data at Discharge: WBC 9.7 K/uL (4.3-10.9) D 09/16/20 03:05 Hgb 15.2 g/dL (13.6-17.9) 09/16/20 03:05 Hct 45.4 % (39.6-49.0) 09/16/20 03:05 Plt Count 205 K/uL (152-406) 09/16/20 03:05 PT 11.6 SECONDS (9.5-12.5) 09/15/20 18:35 INR 0.98 09/15/20 18:35 Sodium 134 mmol/L (136-145) L 09/17/20 04:01 Potassium 4.2 mmol/L (3.5-5.1) 09/17/20 04:01 BUN 22 mg/dL (7-18) H 09/17/20 04:01 Creatinine 1.57 mg/dL (0.55-1.3) H 09/17/20 04:01 Glucose 251 mg/dL (74-106) H 09/17/20 04:01 Magnesium 2.0 mg/dL (1.8-2.4) 09/17/20 04:01 Total Bilirubin 0.6 mg/dL (0.2-1.0) 09/15/20 18:35 AST 26 U/L (15-37) 09/15/20 18:35 ALT 21 U/L (12-78) 09/15/20 18:35 Alkaline Phosphatase 78 U/L (45-117) 09/15/20 18:35 Troponin I 13.40 ng/mL (0.0-0.045) H* D 09/16/20 10:01 Triglycerides 457 mg/dL (<150) H 09/16/20 03:05 Cholesterol 190 mg/dL (<200) 09/16/20 03:05 LDL Cholesterol Direct 115 mg/dL (100-129) 09/16/20 03:05 HDL Cholesterol 28 mg/dL (40-60) L 09/16/20 03:05 Cholesterol/HDL Ratio 6.79 09/16/20 03:05 Home Medications: Aspirin [Aspirin EC 81 MG] 81 mg PO DAILY #90 tablet. 09/17/20 Atorvastatin Calcium [Lipitor] 80 mg PO BEDTIME #30 tab 09/17/20 Clopidogrel Bisulfate [Plavix] 75 mg PO DAILY #30 tablet 09/17/20 Insulin NPH Human [Novolin N (Humulin N)*] 10 units SQ BIDWM #1 vial 09/17/20 Isosorbide Mononitrate [Isosorbide Mononitrate ER] 30 mg PO DAILY #30 tab.er.24h 09/17/20 Metoprolol Tartrate [Lopressor*] 50 mg PO BID 6AM 6PM #60 tab 09/17/20 New Medications: Aspirin [Aspirin EC 81 MG] 81 mg PO DAILY #90 tablet. Isosorbide Mononitrate [Isosorbide Mononitrate ER] 30 mg PO DAILY #30 tab.er.24h Atorvastatin Calcium [Lipitor] 80 mg PO BEDTIME #30 tab Metoprolol Tartrate [Lopressor*] 50 mg PO BID 6AM 6PM #60 tab Insulin NPH Human [Novolin N (Humulin N)*] 10 units SQ BIDWM #1 vial Clopidogrel Bisulfate [Plavix] 75 mg PO DAILY #30 tablet Patient Discharge Instructions: 1. Patient will need of establish care with a local PCP to follow up this hospitalization and follow-up within 1 week. 2. Patient presented with chest pain and shortness of breath secondary to NSTEMI. Patient with history of CAD status post CABG 2013, hypertension, hyperlipidemia, diabetes mellitus type 2. Patient has not been compliant with follow up. Patient was admitted for further evaluation and treatment. Patient was seen and evaluated by Cardiology. Cardiology recommended further cardiac intervention to further evaluate. Patient had heart catheterization showing Severe Coronary artery disease with successful angioplasty and stent of proximal circumflex. Severe Coronary artery disease with patent ZHOU to LAD and severe distal LAD disease to be treated medically. Patient has done well on done the course of his stay. Patient without significant chest pain and shortness of breath at discharge. At discharge the patient will continue with aspirin 81 mg daily, Plavix 75 mg daily, Lipitor 80 mg daily, metoprolol 50 mg 1 pill twice daily, an d Imdur 30 mg daily. The patient will follow up with cardiology in 2-4 weeks to follow up his care. Education on the importance of compliance with medication follow up will be provided. Education on CAD, hypertension will also be provided. 3. Patient with hypertension. Blood pressures were elevated upon arrival as the patient has not been on medication. At discharge blood pressure is better controlled. At discharge he will continue with metoprolol 50 mg 1 pill twice daily. Recommend to maintain blood pressure less than 130/80. Further adjustment can be done by his PCP. Patient will establish care with a local PCP to continue his care. 4. Patient with diabetes mellitus type 2. Hyperglycemia noted. Hemoglobin A1c 9.8. This has remained stable on Sxxv-Mklet-pienebi siding scale. Insulin NPH has been started. At discharge patient will continue with insulin NPH 10 units subcu twice daily. Recommend to maintain blood sugars less than 140 fasting and less than 200 after meals. Further adjustment in medication-insulin may be required if blood sugars remain above 200. Education on diabetes, insulin therapy will be provided. Patient will establish care with a PCP to continue management. Recommend to recheck A1c in 3 months to monitor his progress. 5. Patient with chronic renal disease stage III. This appears stable. Recommend no further use of nonsteroidal anti-inflammatories. Future medications may need to be renally dosed. This can be further monitored and addressed by his PCP. Patient may benefit with nephrology evaluation as an outpatient to further address. 6. Patient with mixed hyperlipidemia. Total triglycerides 457, LDL 115. Patient has been started on medication due to his CAD. At discharge the patient will continue with Lipitor 80 mg daily. Recommend to recheck fasting lipid panel in 4-6 weeks to monitor his progress. Further adjustment can be done by his PCP or cardiology. 7. Patient with subclinical hypothyroidism. Tsh 6.6. Free T4 1.06. Recommend to recheck tsh and free T4 in 4-6 weeks. If still abnormal consider adding medication for hypothyroidism. This can be further addressed by his PCP. Diet: ADA (2000 ADA) Activity: Ad stephon Followup: Unknown,U [Primary Care Provider] - Time spent managing pt's care (in minutes): 55
[2020-09-17] MEDS ORDERED: ISOSORBIDE MONO SR 30 MG TAB PO SCH (09:00)
[2020-09-17] MEDS: ASPIRIN EC 81 MG TAB PO SCH (09:13)
[2020-09-17] MEDS: ENOXAPARIN 100 MG/ML SYR SQ SCH (09:14)
[2020-09-17] MEDS: FUROSEMIDE 20 MG/ 2ML VIAL IV SCH (09:14)
[2020-09-17] MEDS: INSULIN -REGULAR HUMAN 50 UNIT/0.5 ML ML SQ SCH (09:15)
[2020-09-17 09:18] VITALS: BP 131/77
[2020-09-17 09:36] VITALS: O2SAT 97
[2020-09-17 10:19] VITALS: TEMP 97.4
[2020-09-17] MEDS ORDERED: NPH (HUMAN) 100 UNITS/ML INSULIN SQ SCH (17:00)
== END 2020-09-17 10:59 | disposition home or self-care (01) | DRG 246 ==
LOC: ER 18:01 → ERHOLD 20:33 → 4TH 09-16 13:33 → 2ND 09-16 13:38
PROVIDERS: ADMIT Family Medicine; ATTEND Family Medicine
PROC: 027034Z Dilation of Coronary Artery, One Artery with Drug-eluting Intraluminal Device, Percutaneous Approach (ICD-10-PCS; principal; 2020-09-16)
PROC: 4A023N7 Measurement of Cardiac Sampling and Pressure, Left Heart, Percutaneous Approach (ICD-10-PCS; 2020-09-16)
PROC: B2111ZZ Fluoroscopy of Multiple Coronary Arteries using Low Osmolar Contrast (ICD-10-PCS; 2020-09-16)
PROC: B2181ZZ Fluoroscopy of Left Internal Mammary Bypass Graft using Low Osmolar Contrast (ICD-10-PCS; 2020-09-16)
DX: I21.4 Non-ST elevation (NSTEMI) myocardial infarction (principal); I50.23 Acute on chronic systolic (congestive) heart failure; I13.0 Hypertensive heart and chronic kidney disease with heart failure and stage 1 through stage 4 chronic kidney disease, or unspecified chronic kidney disease; N18.30 Chronic kidney disease, stage 3 unspecified; E11.22 Type 2 diabetes mellitus with diabetic chronic kidney disease; E11.65 Type 2 diabetes mellitus with hyperglycemia; E83.42 Hypomagnesemia; E78.2 Mixed hyperlipidemia; I25.10 Atherosclerotic heart disease of native coronary artery without angina pectoris; E02 Subclinical iodine-deficiency hypothyroidism; I25.2 Old myocardial infarction; Z91.013 Allergy to seafood; Z91.09 Other allergy status, other than to drugs and biological substances; Z91.19 Patient's noncompliance with other medical treatment and regimen; Z95.1 Presence of aortocoronary bypass graft; Z90.49 Acquired absence of other specified parts of digestive tract; Z79.82 Long term (current) use of aspirin; Z79.02 Long term (current) use of antithrombotics/antiplatelets; Z79.4 Long term (current) use of insulin; Z79.899 Other long term (current) drug therapy
CPT/HCPCS: 36415; 71045; 80048; 80061; 80076; 82947; 83036; 83735; 83880; 84439; 84443; 84484; 85025; 85347; 85610; 92928; 93005; 93455; 96372; 96374; 99285; C1725; C1760; C1893; J0583; J1200; J1644; J1650; J1940; J2250; J2930; J3010; J3475; J7030; J7512

== ENCOUNTER 2021-02-01 14:57 | Emergency (ER) | payer SELFPAY ==
--- OUTSIDE RECORDS SUMMARY | 2021-02-01 15:06 | XMS REPORT | Continuity of Care Document ---
:1960 Author Organization [facility] t Address [address] [place] [address] Care Team Providers Name Role Phone Pcp MD Primary Care Physician Unavailable MIGUEL QUESADA Attending Clinician Unavailable Kari CORRAL Attending Clinician Unavailable MIGUEL QUESADA Admitting Clinician Unavailable Quinn SCHAEFER Admitting Clinician Unavailable Problems Condition Condition Condition Status Onset Resolution Last Treating Co mments Source Name Details Category Date Date Treatment Clinician Date Acute Acute Disease Active 2017-[address] [facility] renal 11[facility]21 [facility] failure failure 00:00: Medical (ARF) (ARF) 00 [place] Anemia Anemia Disease Active 2017-[address] [facility] [address] 11-21 [facility] - 00:[facility]: Medical 00 [place] Abdominal Abdominal Disease Active 2017-[address] [facility] [address] pain pain 11-21 [facility] - 00:00: Medical 00 [place] Cardiogeni Cardiogeni Disease Active [facility] shock c shock 07-10 [facility] - 00:[facility]: Medical 00 [place] Pancreatit Pancreatit Disease Active [facility] is is 07-08 [facility] - 00:[facility]: Medical [place] Acute Acute Disease Active [facility] blood loss blood loss 14 Amaya kes - anemia anemia 00:00: Medical 00 [place] Hemorrhagi Hemorrhagi Disease Active [facility] shock c shock 07-07 [facility] - 00:[facility]: Medical 00 [place] Chest Chest Disease Active [facility] pain, pain, 07-06 [facility] - unspecifie unspecifie 00:00: Me dical d type d type 00 [place] Accelerate Accelerate Disease Active [facility] d 07-06 [facility] - hypertensi hypertensi 00:00: Me dical on on [place] Morbid Morbid Disease Active [facility] obesity obesity 07-06 [facility] - 00:[facility]: Medical 00 [place] Hyponatrem Hyponatrem Disease Active [facility] ia ia 07-06 [facility] - 00:00: Medical [place] GI bleed GI bleed Disease [facility] requiring requiring [facility] - more than more than 00:00: Medi joycelyn 4 units of 4 units of 00 Ce nter blood in blood in 24 hours, 24 hours, ICU, or ICU, or surgery surgery Hypokalemi Hypokalemi Disease Active [facility] a a 07-04 [facility] - 00:00: Medical 00 [place] Hypomagnes Hypomagnes Disease Active [facility] emia emia 07-04 [facility] - 00:00: Medical [place] Prolonged Prolonged Disease Active [facility] 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-03 [facility] - syndrome syndrome 00:00: Medica l 00 [place] 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: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 [place] 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 Cholelithi Cholelithi Disease Active [facility] asis asis 07-03 [facility] - 00:[facility]: Medical 00 [place] DEION (acute DEION (acute Disease Active [facility] kidney kidney 07-03 [facility] - injury) injury) 00:00: Medical 00 [place] CKD CKD Disease Active [facility] (chronic (chronic 07-03 [facility] - kidney kidney 00:00: Medical disease) disease) 00 Center stage 2, stage 2, GFR 60-89 GFR 60-89 ml/min ml/min S/P CABG x S/P CABG x Disease Active [facility] 3 3 06-30 [facility] - 00:00: Medical 00 [place] Diabetes Diabetes Disease Active [facility] mellitus mellitus [facility] - type 2 in type 2 in 00:00: Medi joycelyn obese obese 00 Center Uncontroll Uncontroll Disease Active [facility] ed ed 06-30 [facility] - hypertensi hypertensi 00:00: Me dical on on 00 [place] Chest pain Chest pain Disease Active [facility] 06[facility]30 [facility] - 00:[facility]: Medical 00 Center Allergies, Adverse Reactions, Alerts Allergy Allergy Status Severity Reaction(s) Onset Inactive Treating Comm ents Source Name Type Date Date Clinician Iodine Propensi Active 2017-[address] [facility] [address] And ty to 11-20 [facility] - Iodide adverse 00:00: Medical Containi reaction 00 Center ng s Products Shellfis Propensi Active Anaphylaxis [facility] h ty to 06-30 [facility] - Containi adverse 00:00: Medical ng reaction 00 Center Products s Family History Family Member Diagnosis Comments Start Date Stop Date Source Natural father Diabetes [facility] Natural father Heart disease [facility] Natural father Hypertension [facility] Natural father Kidney disease [facility] Social History Social Habit Start Date Stop Date Quantity Comments Source Sex Assigned At [facility] Tobacco use and 2018-09-25 2018-09-25 Never used [facility] St Amaya kes - exposure 00:00:00 00:00:00 [facility] Alcohol intake 2018-09-25 2018-09-25 Current drinker [facility] S t [facility] - 00:00:00 00:00:00 of [facility] (finding) Alcohol Comment 2018-06-30 2018-06-[address] [facility] Amaya kes - 00:00:00 00:00:00 [facility] History of 1995-06-30 [facility] Start Date Stop Date Source Former smoker 2018-09-25 00:00:00 2018-09-25 00:00:00 [facility] Medications This patient has no known medications. Procedures This patient has no known procedures. Plan of Care Planned Activity Planned Date Details Comments Source Future Scheduled 2021-07-[address] [facility] - Test 00:00:00 (procedure) [code = [facility] 73069748] Future Scheduled 2020-06-24 INFLUENZA VACCINE (#1) [facility] - Test 00:00:00 [code = INFLUENZA Medical Ce nter VACCINE (#1)] Future Scheduled 2019-09-[address] [facility] - Test 00:00:00 malignant neoplasm of [facility] colon (procedure) [code = 469374133] Future Scheduled 2018-12-[address] Amaya kes - Test 00:00:[address] [facility] (procedure) [code = 71866536] Future Scheduled 1972 DIABETIC EYE EXAM [facility] - Test 00:00:00 [code = DIABETIC EYE [facility] EXAM] Future Scheduled 1972 Diabetic foot JORDIN Mckeonk es - Test 00:00:00 examination Medical Center (regime/therapy) [code = 408023888] Future Scheduled 1972 Urine screening for JORDIN Mckeonkes - Test 00:00:00 protein (procedure) Medical Center [code = 847149316] Future Scheduled 1968 PNEUMOCOCCAL VACCINE JORDIN Gutierrez - Test 00:00:00 0-64 YRS (1 of 1 - Medical C enter PPSV23) [code = PNEUMOCOCCAL VACCINE 0-64 YRS (1 of 1 - PPSV23)] Results Test Description Test Time Test Comments Results Result Sourc e Comments [place], ERCP 2018-09-24 Reason for FINAL REPORT PATIENT 17:04:00 exam:->Abdomina ID: [id number] ERCP, l pain 09/24/2018 Clinical History: Abdominal [...] MDReport Verified Date/Time: 09/24/2018 17:04:26 Reading Location: [facility] C013X Ortho Consult Reading Room C METABOLIC [...] NOT 1092) ACCURATE CRE ATININE CLEARANCE IN AR EDICTING GLOMERULAR FILT RATION RATE. ESTIMATED GFR IS NOT APPLICABLE FOR DIALYSIS PATIENTS. CBC W/PLT COUNT & AUTO [id number] 14:29:00 Test Item Value Reference Range Interpretation [...] 417) IMMATURE GRANULOCYTES-RELATIVE 0 % 0-1 PERCENT ([facility]) (test code = 2801) POCT-GLUCOSE [id number] 11:57:00 Test Item Value Reference Range Interpretation Comments POC-GLUCOSE METER 142 mg/dL 70-110 H TESTED AT [place] [address] ([facility]) (test code = [place] 1538) [address] POCT-GLUCOSE [id number] 11:09:00 Test Item Value Reference Range Interpretation Comments POC-GLUCOSE METER 135 mg/dL 70-110 H TESTED AT [place] [address] ([facility]) (test code = GENEVIEVE Bruce [facility] 1538) [address] POCT-GLUCOSE [id number] 05:59:00 Test Item Value Reference Range Interpretation Comments POC-GLUCOSE METER 118 mg/dL 70-110 H TESTED AT [place] [address] ([facility]) (test code = GEN[place]IEVE Bruce [place] 1538) [address] POCT-GLUCOSE [id number] 01:15:00 Test Item Value Reference Range Interpretation Comments POC-GLUCOSE METER 107 mg/dL 70-110 TESTED AT [place] [address] ([facility]) (test code = GENEVIEVE Bruce [place] 1538) [address] POCT-GLUCOSE [id number] 21:13:00 Test Item Value Reference Range Interpretation Comments POC-GLUCOSE METER 139 mg/dL 70-110 H TESTED AT [place] [address] ([facility]) (test code = GEN[place]E Bruce [place] 1538) [address] POCT-GLUCOSE [id number] 18:29:00 Test Item Value Reference Range Interpretation Comments POC-GLUCOSE METER 139 mg/dL 70-110 H TESTED AT [place] [address] ([facility]) (test code = GEN[address]IEVE Bruce [place] 1538) [address] POCT-GLUCOSE [id number] 13:09:00 Test Item Value Reference Range Interpretation Comments POC-GLUCOSE METER 100 mg/dL 70-110 TESTED AT [facility] 6720 (BEAKER) (test code = [place] 1538) [address] BASIC METABOLIC [id number] 08:28:00 Test Item Value Reference Range Interpretation [...] S NOT APPLICABLE FOR DIALYSIS PATIEN TS. [id number] 08:23:00 Test Item Value Reference Range Interpretation Comments MAGNESIUM (BEAKER) (test code = 2.5 mg/dL 1.6-2.6 627) URINALYSIS W/ REFLEX URINE [id number] 07:38:00 Test Item Value Reference Range Interpretation [...] 516) SOURCE(BEAKER) (test code = 2795) POCT-GLUCOSE [id number] 07:08:00 Test Item Value Reference Range Interpretation Comments POC-GLUCOSE METER 127 mg/dL 70-110 H TESTED AT [facility] 67[address] (BEAKER) (test code = [place] 15[address]) [address] CBC W/PLT COUNT & AUTO [id number] 07:02:00 Test Item Value Reference Range Interpretation [...] PERCENT (BEAKER) (test code = 2801) PROTHROMBIN [id number] 06:52:00 Test Item Value Reference Range Interpretation Comments PROTIME (BEAKER) (test code = 15.7 seconds 11.7-14.7 H 759) INR (BEAKER) (test code = 370) 1.3 <=5.9 RECOMMENDED COUMADIN/WARFARIN INR THERAPY RANGESSTANDARD DOSE: 2.0 - 3.0 Includes: PROPHYLAXIS forvenous thrombosis, systemic embolization; TREATMENT for venous thrombosis and/or pulmonary embolus.HIGH RISK: Target INR is 2.5-3.5 for patients with mechanical heart valves.POCT-GLUCOSE [id number] 22:38:00 Test Item Value Reference Range Interpretation Comments POC-GLUCOSE METER 136 mg/dL 70-110 H TESTED AT [place] [address] ([facility]) (test code = GENEVIEVE Bruce [place] 1538) [address] POCT-GLUCOSE [id number] 18:00:00 Test Item Value Reference Range Interpretation Comments POC-GLUCOSE METER 124 mg/dL 70-110 H TESTED AT [place] [address] ([facility]) (test code = GENEVIEVE Bruce [place] 1538) [address] POCT-GLUCOSE [id number] 12:37:00 Test Item Value Reference Range Interpretation Comments POC-GLUCOSE METER 174 mg/dL 70-110 H TESTED AT [facility] 6720 (BEAKER) (test code = GENEVIEVE Bruce [place] 1538) [address] POCT-GLUCOSE [id number] 08:22:00 Test Item Value Reference Range Interpretation Comments POC-GLUCOSE METER 109 mg/dL 70-110 TESTED AT [facility] 67[address] (BEAKER) (test code = GENEVIEVE Bruce [place] 1538) [address] BASIC METABOLIC [id number] 06:30:00 Test Item Value Reference Range Interpretation [...] S NOT APPLICABLE FOR DIALYSIS PATIEN TS. [id number] 06:25:00 Test Item Value Reference Range Interpretation Comments MAGNESIUM (BEAKER) (test code = 2.2 mg/dL 1.6-2.6 627) CBC W/PLT COUNT & AUTO [id number] 05:58:00 Test Item Value Reference Range Interpretation [...] PERCENT (BEAKER) (test code = 2801) POCT-GLUCOSE [id number] 23:58:00 Test Item Value Reference Range Interpretation Comments POC-GLUCOSE METER 130 mg/dL 70-110 H TESTED AT [facility] 67[address] (BEAKER) (test code = [place] 1538) [address] OCCULT BLOOD, [id number] 21:20:00 Test Item Value Reference Range Interpretation Comments FECAL OCCULT BLOOD (BEAKER) (test Negative Negative code = 618) RETICULOCYTE [id number] 17:55:00 Test Item Value Reference Range Interpretation Comments RETICULOCYTE COUNT PCT (VANESSAAKER) (test 0.8 % 0.5-1.8 code = 575) POCT-GLUCOSE [id number] 17:43:00 Test Item Value Reference Range Interpretation Comments POC-GLUCOSE METER 108 mg/dL 70-110 TESTED AT [facility] 67[address] ([facility]) (test code = [facility] Janis [place] 1538) [address] [id number] 17:11:00 Test Item Value Reference Range Interpretation Comments FERRITIN (BEAKER) (test code = 361) 44 ng/mL 5-275 IRON, TIBC, % SAT. (WITHOUT FERRITIN)2018-09-21 16:52:00 Test Item Value Reference Range Interpretation Comments IRON (BEAKER) (test code = 547) 46 ug/dL 40-160 TOTAL IRON BINDING CAPACITY 330 ug/dL 250-450 ([facility]) (test code = 769) IRON % SATURATION (2) ([facility]) 14 % 20-55 L (test code = 2590) POCT-GLUCOSE [id number] 11:43:00 Test Item Value Reference Range Interpretation Comments POC-GLUCOSE METER 112 mg/dL 70-110 H TESTED AT [place] [address] ([facility]) (test code = [facility] 1538) [address] U/S, ABDOMINAL, [id number] 08:34:00Reason for exam:->acute renal failure and recent [...] MDReport Verified Date/Time: 09/21/2018 08:34:21 Reading Location: [facility] P006J Ultrasound Reading Room POCT- GLUCOSE [id number] 06:34:00 Test Item Value Reference Range Interpretation Comments POC-GLUCOSE METER 83 mg/dL 70-110 TESTED AT [facility] 67[address] (BEAKER) (test code = GENEVIEVE Bruce [facility] [address]) BASIC METABOLIC [id number] 06:14:00 Test Item Value Reference Range Interpretation [...] S NOT APPLICABLE FOR DIALYSIS PATIEN TS. [id number] 06:10:00 Test Item Value Reference Range Interpretation Comments MAGNESIUM (BEAKER) (test code = 2.4 mg/dL 1.6-2.6 627) CBC W/PLT COUNT & AUTO [id number] 05:16:00 Test Item Value Reference Range Interpretation [...] code = 2801) URINALYSIS WITH MICROSCOPIC IF [id number] 05:08:00 Test Item Value Reference Range Interpretation [...] 463) SOURCE(BEAKER) (test code = 2795) URINALYSIS [id number] 05:08:00 Test Item Value Reference Range Interpretation [...] (test Rare code = 1584) CREATININE, RANDOM [id number] 05:03:00 Test Item Value Reference Range Interpretation Comments CREATININE URINE (BEAKER) (test 95.1 mg/dL code = 375) Reference Range: No NormalsSODIUM, RANDOM [id number] 05:03:00 Test Item Value Reference Range Interpretation Comments SODIUM URINE (BEAKER) (test code = 45 meq/L 243) Reference Range: No NormalsUREA NITROGEN, RANDOM [id number] 05:03:00 Test Item Value Reference Range Interpretation Comments UREA NITROGEN URINE (BEAKER) (test 494 mg/dL code = 538) Reference Range: No NormalsCOMPREHENSIVE METABOLIC [id number] 00:16:00 Test Item Value Reference Range Interpretation [...] 90 pg/mL 0-100 (test code = 700) [id number] 00:11:00 Test Item Value Reference Range Interpretation Comments LIPASE (BEAKER) (test code = 749) 94 U/L 8-78 H [id number] 00:11:00 Test Item Value Reference Range Interpretation Comments AMYLASE (BEAKER) (test code = 349) 71 U/L 25-125 LACTIC ACID, VENOUS, WHOLE [id number] 00:04:00 Test Item Value Reference Range Interpretation Comments LACTATE BLOOD VENOUS 0.8 mmol/L 0.5-2.2 Specime n slightly (2) (BEAKER) (test hemolyzed code = 2871) CBC W/PLT COUNT & AUTO [id number] 23:48:00 Test Item Value Reference Range Interpretation [...] (BEAKER) (test code = 2801) HEMOGLOBIN AND [id number] 13:29:00 Test Item Value Reference Range Interpretation Comments HEMOGLOBIN (BEAKER) (test code = 9.4 GM/DL 13.7-17.5 L 410) HEMATOCRIT (BEAKER) (test code = 29.2 % 40.1-51.0 L 411) POCT-GLUCOSE [id number] 12:50:00 Test Item Value Reference Range Interpretation Comments POC-GLUCOSE METER 188 mg/dL 70-110 H TESTED AT [facility] 6720 (BEAKER) (test code = GENEVIEVE Bruce [facility] 1538) [address] BASIC METABOLIC [id number] 10:11:00 Test Item Value Reference Range Interpretation [...] FOR DIALYSIS PATIEN TS. Specimen slightly ictericPOCT-GLUCOSE [id number] 09:55:00 Test Item Value Reference Range Interpretation Comments POC-GLUCOSE METER 149 mg/dL 70-110 H TESTED AT [facility] 67[address] (BEAKER) (test code = [place] 1532) [address] PROTHROMBIN [id number] 05:39:00 Test Item Value Reference Range Interpretation Comments PROTIME (BEAKER) (test code = 15.8 seconds 11.7-14.7 H 759) INR (BEAKER) (test code = 370) 1.3 <=5.9 RECOMMENDED COUMADIN/WARFARIN INR THERAPY RANGESSTANDARD DOSE: 2.0 - 3.0 Includes: PROPHYLAXIS forvenous thrombosis, systemic embolization; TREATMENT for venous thrombosis and/or pulmonary embolus.HIGH RISK: Target INR is 2.5-3.5 for patients with mechanical heart valves.[id number] 05:31:00 Test Item Value Reference Range Interpretation Comments MAGNESIUM (BEAKER) (test code = 1.5 mg/dL 1.6-2.6 L 627) HEPATIC FUNCTION [id number] 05:31:00 Test Item Value Reference Range Interpretation [...] 6-55 347) CBC W/PLT COUNT & AUTO [id number] 05:15:00 Test Item Value Reference Range Interpretation [...] PERCENT (BEAKER) (test code = 2801) POCT-GLUCOSE [id number] 21:20:00 Test Item Value Reference Range Interpretation Comments POC-GLUCOSE METER 145 mg/dL 70-110 H TESTED AT [facility] 6720 (BEAKER) (test code = [place] 1538) [address] POCT-GLUCOSE [id number] 18:26:00 Test Item Value Reference Range Interpretation Comments POC-GLUCOSE METER 145 mg/dL 70-110 H TESTED AT [facility] 67[address] (BEAKER) (test code = [place] 1538) [address] HEMOGLOBIN AND [id number] 18:06:00 Test Item Value Reference Range Interpretation Comments HEMOGLOBIN (BEAKER) (test code = 9.2 GM/DL 13.7-17.5 L 410) HEMATOCRIT (BEAKER) (test code = 28.3 % 40.1-51.0 L 411) CBC W/PLT COUNT & AUTO [id number] 13:13:00 Test Item Value Reference Range Interpretation [...] (test code = 1+ few 965) POCT-GLUCOSE [id number] 12:54:00 Test Item Value Reference Range Interpretation Comments POC-GLUCOSE METER 146 mg/dL 70-110 H TESTED AT [facility] 6720 (BEAKER) (test code = [place] 1538) [address] POCT-GLUCOSE [id number] 09:05:00 Test Item Value Reference Range Interpretation Comments POC-GLUCOSE METER 143 mg/dL 70-110 H TESTED AT [facility] 6720 (BEAKER) (test code = [place] 1538) [address] [id number] 07:26:00 Test Item Value Reference Range Interpretation Comments MAGNESIUM (BEAKER) (test code = 1.8 mg/dL 1.6-2.6 627) BASIC METABOLIC [id number] 07:26:00 Test Item Value Reference Range Interpretation [...] APPLICABLE FOR DIALYSIS PATIEN TS. HEPATIC FUNCTION [id number] 07:26:00 Test Item Value Reference Range Interpretation [...] = 30 U/L 5-34 353) ALT (SGPT) (BEAKER) (test code = 25 U/L 6-55 347) CALCIUM, [id number] 07:09:00 Test Item Value Reference Range Interpretation Comments CALCIUM IONIZED (BEAKER) (test 1.08 mmol/L 1.12-1.27 L code = 698) PH, BLOOD (BEAKER) (test code = 7.52 1810) PROTHROMBIN [id number] 07:07:00 Test Item Value Reference Range Interpretation Comments PROTIME (BEAKER) (test code = 14.9 seconds 11.7-14.7 H 759) INR (BEAKER) (test code = 370) 1.2 <=5.9 RECOMMENDED COUMADIN/WARFARIN INR THERAPY RANGESSTANDARD DOSE: 2.0 - 3.0 Includes: PROPHYLAXIS forvenous thrombosis, systemic embolization; TREATMENT for venous thrombosis and/or pulmonary embolus.HIGH RISK: Target INR is 2.5-3.5 for patients with mechanical heart valves.POCT-GLUCOSE [id number] 21:30:00 Test Item Value Reference Range Interpretation Comments POC-GLUCOSE METER 133 mg/dL 70-110 H TESTED AT [place] [address] ([facility]) (test code = [facility] 1538) [address] POCT-GLUCOSE [id number] 17:52:00 Test Item Value Reference Range Interpretation Comments POC-GLUCOSE METER 270 mg/dL 70-110 H TESTED AT [place] [address] ([facility]) (test code = [facility] 1538) [address] HEMOGLOBIN AND [id number] 16:27:00 Test Item Value Reference Range Interpretation Comments HEMOGLOBIN ([facility]) (test code = 8.9 GM/DL 13.7-17.5 L 410) HEMATOCRIT ([facility]) (test code = 27.7 % 40.1-51.0 L 411) POCT-GLUCOSE [id number] 08:55:00 Test Item Value Reference Range Interpretation Comments POC-GLUCOSE METER 132 mg/dL 70-110 H TESTED AT [place] [address] ([facility]) (test code = [facility] 1538) [address] POCT-GLUCOSE [id number] 08:49:00 Test Item Value Reference Range Interpretation Comments POC-GLUCOSE METER 131 mg/dL 70-110 H TESTED AT [place] [address] ([facility]) (test code = [facility] 1538) [address] [id number] 04:20:00 Test Item Value Reference Range Interpretation Comments MAGNESIUM (BEAKER) (test code = 1.7 mg/dL 1.6-2.6 627) BASIC METABOLIC [id number] 04:20:00 Test Item Value Reference Range Interpretation [...] APPLICABLE FOR DIALYSIS PATIEN TS. HEPATIC FUNCTION [id number] 04:20:00 Test Item Value Reference Range Interpretation [...] 6-55 347) CBC W/PLT COUNT & AUTO [id number] 04:16:00 Test Item Value Reference Range Interpretation [...] 0-1 PERCENT (BEAKER) (test code = 2801) [id number] 04:06:00 Test Item Value Reference Range Interpretation [...] exclusion of thrombosis is within 95-100% range. [id number] 04:04:00 Test Item Value Reference Range Interpretation Comments FIBRINOGEN LEVEL (BEAKER) (test 426 mg/dl 225-434 code = 658) [id number] 04:04:00 Test Item Value Reference Range Interpretation [...] 2.5-3.5 for patients with mechanical heart valves.PLATELET [id number] 03:59:00 Test Item Value Reference Range Interpretation Comments PLATELET COUNT (BEAKER) (test 293 K/CU MM 150-450 code = 756) HEMOGLOBIN AND [id number] 03:59:00 Test Item Value Reference Range Interpretation Comments HEMOGLOBIN (BEAKER) (test code = 9.0 GM/DL 13.7-17.5 L 410) HEMATOCRIT (AKER) (test code = 28.6 % 40.1-51.0 L 411) POCT-GLUCOSE [id number] 22:54:00 Test Item Value Reference Range Interpretation Comments POC-GLUCOSE METER 169 mg/dL 70-110 H TESTED AT [place] [address] ([facility]) (test code = [facility] [place] [place] 1538) [address] POCT-GLUCOSE [id number] 17:50:00 Test Item Value Reference Range Interpretation Comments POC-GLUCOSE METER 162 mg/dL 70-110 H TESTED AT [facility] 6720 ([facility]) (test code = [facility] [place] 1538) [address] HEMOGLOBIN AND [id number] 12:54:00 Test Item Value Reference Range Interpretation Comments HEMOGLOBIN (BEAKER) (test code = 8.9 GM/DL 13.7-17.5 L 410) HEMATOCRIT (BEAKER) (test code = 28.0 % 40.1-51.0 L 411) [id number] 06:09:00 Test Item Value Reference Range Interpretation Comments MAGNESIUM (BEAKER) (test code = 1.4 mg/dL 1.6-2.6 L 627) BASIC METABOLIC [id number] 06:09:00 Test Item Value Reference Range Interpretation [...] APPLICABLE FOR DIALYSIS PATIEN TS. HEPATIC FUNCTION [id number] 06:09:00 Test Item Value Reference Range Interpretation [...] code = 26 U/L 6-55 347) PROTHROMBIN [id number] 06:03:00 Test Item Value Reference Range Interpretation [...] (BEAKER) (test code = 2801) HEMOGLOBIN AND [id number] 18:54:00 Test Item Value Reference Range Interpretation Comments HEMOGLOBIN (BEAKER) (test code = 9.9 GM/DL 13.7-17.5 L 410) HEMATOCRIT (BEAKER) (test code = 32.6 % 40.1-51.0 L 411) BLOOD [id number] 18:00:00 Test Item Value Reference Range Interpretation Comments CULTURE (BEAKER) (test No growth in 5 days code = 1095) HEMOGLOBIN AND [id number] 16:03:00 Test Item Value Reference Range Interpretation Comments HEMOGLOBIN (BEAKER) (test code = 9.4 GM/DL 13.7-17.5 L 410) HEMATOCRIT (BEAKER) (test code = 28.9 % 40.1-51.0 L 411) CBC W/PLT COUNT & AUTO [id number] 09:17:00 Test Item Value Reference Range Interpretation [...] PERCENT (BEAKER) (test code = 2801) PROTHROMBIN TIME/[id number] 08:38:00 Test Item Value Reference Range Interpretation Comments PROTIME (BEAKER) (test code = 14.7 seconds 11.7-14.7 759) INR (BEAKER) (test code = 370) 1.2 <=5.9 RECOMMENDED COUMADIN/WARFARIN INR THERAPY RANGESSTANDARD DOSE: 2.0 - 3.0 Includes: PROPHYLAXIS forvenous thrombosis, systemic embolization; TREATMENT for venous thrombosis and/or pulmonary embolus.HIGH RISK: Target INR is 2.5-3.5 for patients with mechanical heart valves.BASIC METABOLIC [id number] 07:46:00 Test Item Value Reference Range Interpretation [...] NOT APPLICABLE FOR DIALYSIS PATIEN TS. PROTHROMBIN [id number] 06:45:00 Test Item Value Reference Range Interpretation Comments PROTIME (BEAKER) (test code = 14.5 seconds 11.7-14.7 759) INR (BEAKER) (test code = 370) 1.1 <=5.9 RECOMMENDED COUMADIN/WARFARIN INR THERAPY RANGESSTANDARD DOSE: 2.0 - 3.0 Includes: PROPHYLAXIS forvenous thrombosis, systemic embolization; TREATMENT for venous thrombosis and/or pulmonary embolus.HIGH RISK: Target INR is 2.5-3.5 for patients with mechanical heart valves.[id number] 05:11:00 Test Item Value Reference Range Interpretation Comments MAGNESIUM (BEAKER) 1.8 mg/dL 1.6-2.6 Specimen moderately (test code = 627) hemolyzed HEPATIC FUNCTION [id number] 05:11:00 Test Item Value Reference Range Interpretation [...] Specimen moderately (test code = 347) hemolyzed [id number] 06:06:00 Test Item Value Reference Range Interpretation Comments MAGNESIUM (BEAKER) (test code = 1.6 mg/dL 1.6-2.6 627) BASIC METABOLIC [id number] 06:06:00 Test Item Value Reference Range Interpretation [...] APPLICABLE FOR DIALYSIS PATIEN TS. HEPATIC FUNCTION [id number] 06:06:00 Test Item Value Reference Range Interpretation [...] code = 22 U/L 6-55 347) PROTHROMBIN [id number] 05:51:00 Test Item Value Reference Range Interpretation [...] (BEAKER) (test code = 2801) HEMOGLOBIN AND [id number] 00:16:00 Test Item Value Reference Range Interpretation Comments HEMOGLOBIN (BEAKER) (test code = 8.8 GM/DL 13.7-17.5 L 410) HEMATOCRIT (BEAKER) (test code = 27.1 % 40.1-51.0 L 411) HEMOGLOBIN AND [id number] 17:32:00 Test Item Value Reference Range Interpretation Comments HEMOGLOBIN (BEAKER) (test code = 8.8 GM/DL 13.7-17.5 L 410) HEMATOCRIT (BEAKER) (test code = 27.5 % 40.1-51.0 L 411) RAD, CHEST, 1 VIEW, NON [id number] 10:38:00Reason for exam:->HFShould this be performed at [...] MDReport Verified Date/Time: 07/18/2018 10:38:16 Reading Location: [facility] Radiology Reading Room Electronically signed by: GINA SPEARS M.D. on07/18/2018 10:38 AMHEMOGLOBIN AND [id number] 10:12:00 Test Item Value Reference Range Interpretation Comments HEMOGLOBIN (BEAKER) (test code = 7.8 GM/DL 13.7-17.5 L 410) HEMATOCRIT (BEAKER) (test code = 24.5 % 40.1-51.0 L 411) [id number] 04:04:00 Test Item Value Reference Range Interpretation Comments MAGNESIUM (BEAKER) (test code = 1.9 mg/dL 1.6-2.6 627) BASIC METABOLIC [id number] 04:04:00 Test Item Value Reference Range Interpretation [...] APPLICABLE FOR DIALYSIS PATIEN TS. HEPATIC FUNCTION [id number] 04:04:00 Test Item Value Reference Range Interpretation [...] code = 22 U/L 6-55 347) PROTHROMBIN [id number] 04:00:00 Test Item Value Reference Range Interpretation [...] % 0-1 PERCENT (BEAKER) (test code = 2804) HEMOGLOBIN AND [id number] 00:32:00 Test Item Value Reference Range Interpretation Comments HEMOGLOBIN (BEAKER) (test code = 9.0 GM/DL 13.7-17.5 L 410) HEMATOCRIT (BEAKER) (test code = 27.8 % 40.1-51.0 L 411) [id number] 18:36:00 Test Item Value Reference Range Interpretation Comments MAGNESIUM (BEAKER) 2.2 mg/dL 1.6-2.6 Specimen slightly (test code = 627) hemolyzed [id number] 18:36:00 Test Item Value Reference Range Interpretation Comments POTASSIUM (BEAKER) 4.3 meq/L 3.5-5.1 Specimen slightly (test code = 379) hemolyzed FL, [id number] 18:08:00INTRA OP IMAGINGReason for exam:->abnormal imaging FINAL REPORT ERCP 1 view 07/17/2018 6:06 PM CLINICAL HISTORY: Instrument localization COMPARISON: None available IMPRESSION: Please correlate imaging report findings with the procedure note prepared by Dr. Santacruz, as an intra-procedure imaging consultation was not requested. Reported fluoroscopy time: 233.8 seconds. Signed: Farhad Meza Verified Date/Time: 07/17/2018 18:08:25 Reading Location: [facility] Radiology Reading Room HEMOGLOBIN AND [id number] 18:03:00 Test Item Value Reference Range Interpretation Comments HEMOGLOBIN (BEAKER) (test code = 9.2 GM/DL 13.7-17.5 L 410) HEMATOCRIT (BEAKER) (test code = 28.1 % 40.1-51.0 L 411) [id number] 09:33:00 Test Item Value Reference Range Interpretation Comments POTASSIUM (BEAKER) (test code = 3.4 meq/L 3.5-5.1 L 379) [id number] 09:33:00 Test Item Value Reference Range Interpretation Comments MAGNESIUM (BEAKER) (test code = 2.0 mg/dL 1.6-2.6 627) HEMOGLOBIN AND [id number] 09:20:00 Test Item Value Reference Range Interpretation Comments HEMOGLOBIN (BEAKER) (test code = 8.9 GM/DL 13.7-17.5 L 410) HEMATOCRIT (BEAKER) (test code = 26.9 % 40.1-51.0 L 411) PROTHROMBIN [id number] 06:45:00 Test Item Value Reference Range Interpretation Comments PROTIME (BEAKER) (test code = 16.9 seconds 11.7-14.7 H 759) INR (BEAKER) (test code = 370) 1.4 <=5.9 RECOMMENDED COUMADIN/WARFARIN INR THERAPY RANGESSTANDARD DOSE: 2.0 - 3.0 Includes: PROPHYLAXIS forvenous thrombosis, systemic embolization; TREATMENT for venous thrombosis and/or pulmonary embolus.HIGH RISK: Target INR is 2.5-3.5 for patients with mechanical heart valves.BASIC METABOLIC [id number] 03:44:00 Test Item Value Reference Range Interpretation [...] S NOT APPLICABLE FOR DIALYSIS PATIEN TS. [id number] 03:36:00 Test Item Value Reference Range Interpretation Comments MAGNESIUM (BEAKER) (test code = 2.3 mg/dL 1.6-2.6 627) HEPATIC FUNCTION [id number] 03:36:00 Test Item Value Reference Range Interpretation [...] 6-55 347) CBC W/PLT COUNT & AUTO [id number] 03:08:00 Test Item Value Reference Range Interpretation [...] (BEAKER) (test code = 2801) HEMOGLOBIN AND [id number] 00:43:00 Test Item Value Reference Range Interpretation Comments HEMOGLOBIN (BEAKER) (test code = 9.2 GM/DL 13.7-17.5 L 410) HEMATOCRIT (BEAKER) (test code = 27.6 % 40.1-51.0 L 411) [id number] 20:56:00 Test Item Value Reference Range Interpretation Comments POTASSIUM (BEAKER) (test code = 3.0 meq/L 3.5-5.1 L 379) [id number] 20:56:00 Test Item Value Reference Range Interpretation Comments MAGNESIUM (BEAKER) (test code = 1.7 mg/dL 1.6-2.6 627) HEMOGLOBIN AND [id number] 17:08:00 Test Item Value Reference Range Interpretation Comments HEMOGLOBIN (BEAKER) (test code = 9.3 GM/DL 13.7-17.5 L 410) HEMATOCRIT (BEAKER) (test code = 28.2 % 40.1-51.0 L 411) [id number] 08:36:00 Test Item Value Reference Range Interpretation Comments PHOSPHORUS (BEAKER) (test code = 2.9 mg/dL 2.3-4.7 604) HEMOGLOBIN AND [id number] 08:18:00 Test Item Value Reference Range Interpretation Comments HEMOGLOBIN (BEAKER) (test code = 8.7 GM/DL 13.7-17.5 L 410) HEMATOCRIT (BEAKER) (test code = 25.7 % 40.1-51.0 L 411) BASIC METABOLIC [id number] 05:58:00 Test Item Value Reference Range Interpretation [...] S NOT APPLICABLE FOR DIALYSIS PATIEN TS. [id number] 04:58:00 Test Item Value Reference Range Interpretation Comments MAGNESIUM (BEAKER) (test code = 1.3 mg/dL 1.6-2.6 L 627) HEPATIC FUNCTION [id number] 04:58:00 Test Item Value Reference Range Interpretation [...] (test code = 20 U/L 6-55 347) [id number] 04:40:00 Test Item Value Reference Range Interpretation [...] of thrombosis is within 95-100% range. PROTHROMBIN TIME/[id number] 04:37:00 Test Item Value Reference Range Interpretation [...] PERCENT (BEAKER) (test code = 2801) CALCIUM, [id number] 04:29:00 Test Item Value Reference Range Interpretation Comments CALCIUM IONIZED (BEAKER) (test 1.13 mmol/L 1.12-1.27 code = 698) PH, BLOOD (BEAKER) (test code = 7.42 1810) HEMOGLOBIN AND [id number] 04:29:00 Test Item Value Reference Range Interpretation Comments HEMOGLOBIN (BEAKER) (test code = 8.6 GM/DL 13.7-17.5 L 410) HEMATOCRIT (BEAKER) (test code = 25.4 % 40.1-51.0 L 411) POCT-GLUCOSE [id number] 04:18:00 Test Item Value Reference Range Interpretation Comments POC-GLUCOSE METER 116 mg/dL 70-110 H TESTED AT [place] [address] (BEAKER) (test code = [place] Janis [place] 15[address]) [address] HEMOGLOBIN AND [id number] 00:35:00 Test Item Value Reference Range Interpretation Comments HEMOGLOBIN (BEAKER) (test code = 8.7 GM/DL 13.7-17.5 L 410) HEMATOCRIT (BEAKER) (test code = 25.9 % 40.1-51.0 L 411) POCT-GLUCOSE [id number] 22:40:00 Test Item Value Reference Range Interpretation Comments POC-GLUCOSE METER 112 mg/dL 70-110 H TESTED AT [facility] 6720 (BEAKER) (test code = GENEVIEVE Bruce [place] 1538) [address] HEMOGLOBIN AND [id number] 19:57:00 Test Item Value Reference Range Interpretation Comments HEMOGLOBIN (BEAKER) (test code = 9.1 GM/DL 13.7-17.5 L 410) HEMATOCRIT (BEAKER) (test code = 26.2 % 40.1-51.0 L 411) POCT-GLUCOSE [id number] 17:38:00 Test Item Value Reference Range Interpretation Comments POC-GLUCOSE METER 151 mg/dL 70-110 H TESTED AT [facility] 6720 (BEAKER) (test code = GENEVIEVE Bruce [place] 1538) [address] [id number] 17:13:00 Test Item Value Reference Range Interpretation Comments POTASSIUM (BEAKER) (test code = 3.7 meq/L 3.5-5.1 379) HEMOGLOBIN AND [id number] 16:43:00 Test Item Value Reference Range Interpretation Comments HEMOGLOBIN (BEAKER) (test code = 9.2 GM/DL 13.7-17.5 L 410) HEMATOCRIT (BEAKER) (test code = 26.8 % 40.1-51.0 L 411) CBC W/PLT COUNT & AUTO [id number] 13:38:00 Test Item Value Reference Range Interpretation [...] PLATELET CONCENTRATION Decreased (CELLAVISION)(BEAKER) (test code = 3430) Received comment: User comments: Slide comments:COMPREHENSIVE METABOLIC [...] TS. Specimen slightly ictericLACTIC ACID, ARTERIAL, WHOLE [id number] 13:21:00 Test Item Value Reference Range Interpretation Comments LACTATE BLOOD ARTERIAL (2) 0.8 mmol/L 0.5-2.2 (BEAKER) (test code = 2874) Effective 02/25/2016: Units/Reference Range ChangeNew: 0.5-2.2 mmol/L Previous: 5-20 mg/dLSpecimen slightly ictericCALCIUM, [id number] 13:06:00 Test Item Value Reference Range Interpretation Comments CALCIUM IONIZED ([facility]) (test 1.07 mmol/L 1.12-1.27 L code = 698) PH, BLOOD ([facility]) (test code = 7.44 1810) PLATELET [id number] 13:01:00 Test Item Value Reference Range Interpretation Comments PLATELET COUNT ([facility]) (test 138 K/CU MM 150-450 L code = 756) HEMOGLOBIN AND [id number] 13:01:00 Test Item Value Reference Range Interpretation Comments HEMOGLOBIN ([facility]) (test code = 9.4 GM/DL 13.7-17.5 L 410) HEMATOCRIT ([facility]) (test code = 27.7 % 40.1-51.0 L 411) POCT-GLUCOSE [id number] 12:02:00 Test Item Value Reference Range Interpretation Comments POC-GLUCOSE METER 175 mg/dL 70-110 H TESTED AT [facility] 67 ([facility]) (test code = GENEVIEVE Bruce [place] 1538) [address] LACTIC ACID, VENOUS, WHOLE [id number] 11:44:00 Test Item Value Reference Range Interpretation Comments LACTATE BLOOD VENOUS (2) (AKER) 0.9 mmol/L 0.5-2.2 (test code = 2872) Effective 02/25/2016: Units/Reference Range ChangeNew: 0.5-2.2 mmol/L Previous: 5-20 mg/dLLACTIC ACID, VENOUS, WHOLE [id number] 10:20:00 Test Item Value Reference Range Interpretation Comments LACTATE BLOOD VENOUS (2) (AKER) 0.9 mmol/L 0.5-2.2 (test code = 2872) Effective 02/25/2016: Units/Reference Range ChangeNew: 0.5-2.2 mmol/L Previous: 5-20 mg/kNV-[id number] 10:00:00 Test Item Value Reference Range Interpretation Comments D-DIMER QUANTITATIVE ([facility]) 2.73 MG/L FEU <0.50 H (test code [...] exclusion of thrombosis is within 95-100% range. PT/[id number] 09:58:00 Test Item Value Reference Range Interpretation [...] is 2.5-3.5 for patients with mechanical heart valves.[id number] 09:58:00 Test Item Value Reference Range Interpretation Comments FIBRINOGEN LEVEL (BEAKER) (test 151 mg/dl 225-434 L code = 658) CALCIUM, [id number] 09:31:00 Test Item Value Reference Range Interpretation Comments CALCIUM IONIZED (BEAKER) (test 1.09 mmol/L 1.12-1.27 L code = 698) PH, BLOOD (BEAKER) (test code = 7.45 1810) CBC W/PLT COUNT & AUTO [id number] 08:51:00 Test Item Value Reference Range Interpretation [...] Adequate (CELLAVISION)(BEAKER) (test code = 3438) PROTHROMBIN TIME/[id number] 08:06:00 Test Item Value Reference Range Interpretation Comments PROTIME (BEAKER) (test code = 17.3 seconds 11.7-14.7 H 759) INR (BEAKER) (test code = 370) 1.4 <=5.9 RECOMMENDED COUMADIN/WARFARIN INR THERAPY RANGESSTANDARD DOSE: 2.0 - 3.0 Includes: PROPHYLAXIS forvenous thrombosis, systemic embolization; TREATMENT for venous thrombosis and/or pulmonary embolus.HIGH RISK: Target INR is 2.5-3.5 for patients with mechanical heart valves.PT/[id number] 08:06:00 Test Item Value Reference Range Interpretation [...] is 2.5-3.5 for patients with mechanical heart valves.[id number] 08:06:00 Test Item Value Reference Range Interpretation Comments FIBRINOGEN LEVEL (BEAKER) (test 153 mg/dl 225-434 L code = 658) [id number] 08:06:00 Test Item Value Reference Range Interpretation [...] of thrombosis is within 95-100% range.BLOOD GAS, [id number] 07:07:00 Test Item Value Reference Range Interpretation [...] (BEAKER) (test code = 1819) 100 CALCIUM, [id number] 07:07:00 Test Item Value Reference Range Interpretation Comments CALCIUM IONIZED (BEAKER) (test 1.08 mmol/L 1.12-1.27 L code = 698) PH, BLOOD (BEAKER) (test code = 7.48 1810) CALCIUM, [id number] 07:06:00 Test Item Value Reference Range Interpretation Comments CALCIUM IONIZED (BEAKER) (test 1.07 mmol/L 1.12-1.27 L code = 698) PH, BLOOD (BEAKER) (test code = 7.44 1810) [id number] 06:52:00 Test Item Value Reference Range Interpretation Comments MAGNESIUM (BEAKER) (test code = 1.5 mg/dL 1.6-2.6 L 627) [id number] 06:52:00 Test Item Value Reference Range Interpretation Comments POTASSIUM (BEAKER) (test code = 3.3 meq/L 3.5-5.1 L 379) [id number] 06:52:00 Test Item Value Reference Range Interpretation Comments SODIUM (BEAKER) (test code = 381) 142 meq/L 136-145 HEPATIC FUNCTION [id number] 06:52:00 Test Item Value Reference Range Interpretation [...] 0.4 % 0.0-5.0 code = 1414) PLATELET [id number] 05:34:00 Test Item Value Reference Range Interpretation Comments PLATELET COUNT (BEAKER) (test 146 K/CU MM 150-450 L code = 756) HEMOGLOBIN AND [id number] 05:34:00 Test Item Value Reference Range Interpretation Comments HEMOGLOBIN (BEAKER) (test code = 7.3 GM/DL 13.7-17.5 L 410) HEMATOCRIT (BEAKER) (test code = 22.2 % 40.1-51.0 L 411) CALCIUM, [id number] 05:26:00 Test Item Value Reference Range Interpretation Comments CALCIUM IONIZED (BEAKER) (test 0.96 mmol/L 1.12-1.27 L code = 698) PH, BLOOD (BEAKER) (test code = 7.40 1810) RAD, CHEST, 1 VIEW, NON [id number] 05:09:00Reason for exam:->check ET placementShould this be [...] MDReport Verified Date/Time: 07/15/2018 05:09:29 Reading Location: [address] Body Reading Room -[id number] 04:55:00 Test Item Value Reference Range Interpretation [...] thrombosis is within 95-100% range.POCT- BLOOD GASES, [id number] 04:54:00 Test Item Value Reference Range Interpretation Comments TEMP, CELSIUS-POC 36.8 (BEAKER) (test code = 1834) FIO2-POC (BEAKER) 100 TESTED AT [place] [address] (test code = 1835) [facility] [address] PH, ARTERIAL-POC 7.424 7.350-7.450 (BEAKER) (test code [...] -2.0-3.0 ARTERIAL-POC (BEAKER) (test code = 1841) [id number] 04:54:00 Test Item Value Reference Range Interpretation Comments POC-SODIUM (BEAKER) 144 meq/L 135-148 TESTED [place] [address] (test code = 1542) [facility] [address] [id number] 04:54:00 Test Item Value Reference Range Interpretation Comments POC-POTASSIUM 3.2 meq/L 3.6-5.5 L TESTED AT [place] [address] (BEAKER) (test code [facility] [address] = 1540) [id number] 04:54:00 Test Item Value Reference Range Interpretation Comments POC-GLUCOSE (BEAKER) 170 mg/dL 70-110 H TESTED AT [place] [address] (test code = 1855) [facility] [address] POCT-CALCIUM [id number] 04:54:00 Test Item Value Reference Range Interpretation Comments POC-CALCIUM IONIZED 1.09 mmol/L 1.12-1.27 L TESTED [place] [address] [facility] (test code = [facility] 1536) [address] [id number] 04:54:00 Test Item Value Reference Range Interpretation Comments POC-HEMATOCRIT 22 % 40-50 L TESTED AT [place] [address] [facility] (test code = GENEVIEVE Bruce [facility] [address]57) [id number] 04:54:00 Test Item Value Reference Range Interpretation Comments POC-HEMOGLOBIN 7.5 g/dL 13.0-16.8 L TESTED AT [place] [address] ([facility] (test code = [facility] Janis [facility] 1856) [id number] AT [place] [address] [address] [facility] [place] [address] [id number] 04:53:00 Test Item Value Reference Range Interpretation Comments PROTIME ([facility]) (test code = 18.4 seconds 11.7-14.7 H 759) INR ([facility]) (test code = 370) 1.5 <=5.9 PARTIAL THROMBOPLASTIN TIME 33.3 seconds 22.5-36.0 ([facility]) (test code = 760) RECOMMENDED COUMADIN/WARFARIN INR THERAPY RANGESSTANDARD DOSE: 2.0 - 3.0 Includes: PROPHYLAXIS forvenous thrombosis, systemic embolization; TREATMENT for venous thrombosis and/or pulmonary embolus.HIGH RISK: Target INR is 2.5-3.5 for patients with mechanical heart valves.[id number] 04:53:00 Test Item Value Reference Range Interpretation Comments FIBRINOGEN LEVEL (AKER) (test 164 mg/dl 225-434 L code = 658) HEMOGLOBIN AND [id number] 04:12:00 Test Item Value Reference Range Interpretation Comments HEMOGLOBIN (BEAKER) (test code = 7.3 GM/DL 13.7-17.5 L 410) HEMATOCRIT (BEAKER) (test code = 22.3 % 40.1-51.0 L 411) POCT-BLOOD GASES, [id number] 03:58:00 Test Item Value Reference Range Interpretation Comments TEMP, CELSIUS-POC 36.8 (BEAKER) (test code = 1834) FIO2-POC (BEAKER) 32 TESTED AT [place] [address] (test code = 1835) [facility] [place] [address] PH, ARTERIAL-POC 7.426 7.350-7.450 (AKER) (test code = 1836) PCO2, ARTERIAL-POC 37.0 mm Hg 35.0-45.0 (BEAKER) (test code = 1837) PO2, ARTERIAL-POC 152.0 mm Hg 80.0-90.0 H (BEAKER) (test code = 1838) SO2, ARTERIAL-POC 99.0 % 96.0-97.0 H (AKER) (test code = 1839) HCO3, ARTERIAL-POC 24.4 meq/L 21.0-29.0 (BEAKER) (test code = 1840) BASE EXCESS, 0.0 meq/L -2.0-3.0 ARTERIAL-POC ([facility] (test code = 1841) [id number] 03:58:00 Test Item Value Reference Range Interpretation Comments POC-SODIUM ([facility]) 143 meq/L 135-148 TESTED [place] [address] (test code = 1542) [place] Issa [facility] [address] [id number] 03:58:00 Test Item Value Reference Range Interpretation Comments POC-POTASSIUM 4.3 meq/L 3.6-5.5 TESTED AT [place] [address] ([facility]) (test code [facility] [address] = 1540) [id number] 03:58:00 Test Item Value Reference Range Interpretation Comments POC-GLUCOSE ([facility]) 178 mg/dL 70-110 H TESTED AT [place] [address] (test code = 1855) [place] Issa [facility] [address] POCT-CALCIUM [id number] 03:58:00 Test Item Value Reference Range Interpretation Comments POC-CALCIUM IONIZED 0.95 mmol/L 1.12-1.27 L TESTED [place] [address] ([facility]) (test code = GENEVIEVE Janis [facility] 1539) [address] [id number] 03:58:00 Test Item Value Reference Range Interpretation Comments POC-HEMATOCRIT 17 % 40-50 L TESTED AT [place] [address] ([facility]) (test code = GENEVIEVE Bruce [facility] [address]) [id number] 03:58:00 Test Item Value Reference Range Interpretation Comments POC-HEMOGLOBIN 5.8 g/dL 13.0-16.8 LL TESTED AT [facility] 6720 (BEAKER) (test code = [place] [address]) [id number] AT [facility] [address] [place] [address] PT/[id number] 03:23:00 Test Item Value Reference Range Interpretation [...] 2.5-3.5 for patients with mechanical heart valves.PROTHROMBIN [id number] 03:22:00 Test Item Value Reference Range Interpretation Comments PROTIME (BEAKER) (test code = 17.2 seconds 11.7-14.7 H 759) INR (BEAKER) (test code = 370) 1.4 <=5.9 RECOMMENDED COUMADIN/WARFARIN INR THERAPY RANGESSTANDARD DOSE: 2.0 - 3.0 Includes: PROPHYLAXIS forvenous thrombosis, systemic embolization; TREATMENT for venous thrombosis and/or pulmonary embolus.HIGH RISK: Target INR is 2.5-3.5 for patients with mechanical heart valves.BASIC METABOLIC [id number] 02:56:00 Test Item Value Reference Range Interpretation [...] APPLICABLE FOR DIALYSIS PATIEN TS. POCT-BLOOD GASES, [id number] 02:24:00 Test Item Value Reference Range Interpretation Comments TEMP, CELSIUS-POC 36.1 (BEAKER) (test code = 1834) FIO2-POC (BEAKER) 32 TESTED AT [place] [address] (test code = 1835) [facility] [address] PH, VENOUS-POC 7.432 7.320-7.420 H (BEAKER) (test [...] H VENOUS-POC (BEAKER) (test code = 1847) [id number] 02:24:00 Test Item Value Reference Range Interpretation Comments POC-SODIUM (BEAKER) 143 meq/L 135-148 TESTED A T [place] [address] (test code = 1542) [facility] [place] [place] [address] [id number] 02:24:00 Test Item Value Reference Range Interpretation Comments POC-POTASSIUM 3.1 meq/L 3.6-5.5 L TESTED AT [place] [address] (BEAKER) (test code [facility] [address] = 1540) [id number] 02:24:00 Test Item Value Reference Range Interpretation Comments POC-GLUCOSE (BEAKER) 134 mg/dL 70-110 H TESTED AT [place] [address] (test code = 1855) [facility] [place] [address] POCT-CALCIUM [id number] 02:24:00 Test Item Value Reference Range Interpretation Comments POC-CALCIUM IONIZED 1.20 mmol/L 1.12-1.27 TESTED A T [place] [address] ([facility]) (test code = [facility] 1536) [id number] 02:24:00 Test Item Value Reference Range Interpretation Comments POC-HEMATOCRIT 18 % 40-50 L TESTED AT [place] [address] ([facility]) (test code = [facility] [address] 1857) [id number] 02:24:00 Test Item Value Reference Range Interpretation Comments POC-HEMOGLOBIN 6.1 g/dL 13.0-16.8 L TESTED AT [place] [address] ([facility]) (test code = [facility] 1856) [address]VMLDER AT [place] [address] [place] [address] POCT-GLUCOSE [id number] 20:58:00 Test Item Value Reference Range Interpretation Comments POC-GLUCOSE METER 196 mg/dL 70-110 H TESTED AT [place] [address] ([facility]) (test code = GENEVIEVE Bruce [facility] 1538) [address] POCT-GLUCOSE [id number] 17:05:00 Test Item Value Reference Range Interpretation Comments POC-GLUCOSE METER 236 mg/dL 70-110 H TESTED AT [place] [address] ([facility]) (test code = GENEVIEVE Bruce [facility] 1538) [address] POCT-GLUCOSE [id number] 12:04:00 Test Item Value Reference Range Interpretation Comments POC-GLUCOSE METER 115 mg/dL 70-110 H TESTED AT [place] [address] ([facility]) (test code = [facility] Janis [facility] 1538) [address] RAD, CHEST, 1 VIEW, NON [id number] 10:09:00Reason for exam:->to assess for consolidation, pleural effusions, pulmonary edemaShould this be performed at the bedside?->YesFINAL REPORT Chest one view compared to July 09 Discussion: Mild interstitial congestion. No effusion or pneumothorax. Right IJ line in place. Signed: Felicitas Rivera Verified Date/Time: 07/14/2018 10:09:51 Reading Location: [facility] Radiology Reading Room BASIC METABOLIC [id number] 08:26:00 Test Item Value Reference Range Interpretation [...] APPLICABLE FOR DIALYSIS PATIEN TS. BLOOD GAS, [id number] 08:09:00 Test Item Value Reference Range Interpretation [...] code = 1819) 36.0 % HEMOGLOBIN AND [id number] 08:07:00 Test Item Value Reference Range Interpretation Comments HEMOGLOBIN (BEAKER) (test code = 7.8 GM/DL 13.7-17.5 L 410) HEMATOCRIT (BEAKER) (test code = 24.4 % 40.1-51.0 L 411) POCT-GLUCOSE [id number] 06:12:00 Test Item Value Reference Range Interpretation Comments POC-GLUCOSE METER 95 mg/dL 70-110 TESTED AT [facility] 6720 (BEAKER) (test code = [place] [address] 1538) OXYGEN SATURATION, [id number] 05:31:00 Test Item Value Reference Range Interpretation Comments O2 SATURATION (MEASURED) (BEAKER) 97.9 % (test code = 1455) Obtain from CVP portVANCOMYCIN LEVEL, [id number] 05:18:00 Test Item Value Reference Range Interpretation Comments VANCOMYCIN RANDOM (BEAKER) (test 20.5 ug/mL code = 523) Reference Range: No NormalsBLOOD GAS, [id number] 05:01:00 Test Item Value Reference Range Interpretation [...] (BEAKER) (test code = 1819) 32.0 % [id number] 04:55:00 Test Item Value Reference Range Interpretation Comments MAGNESIUM (BEAKER) (test code = 1.9 mg/dL 1.6-2.6 627) BASIC METABOLIC [id number] 04:55:00 Test Item Value Reference Range Interpretation [...] APPLICABLE FOR DIALYSIS PATIEN TS. HEPATIC FUNCTION [id number] 04:55:00 Test Item Value Reference Range Interpretation [...] code = 35 U/L 6-55 347) PROTHROMBIN [id number] 04:28:00 Test Item Value Reference Range Interpretation Comments PROTIME (BEAKER) (test code = 17.3 seconds 11.7-14.7 H 759) INR (BEAKER) (test code = 370) 1.4 <=5.9 RECOMMENDED COUMADIN/WARFARIN INR THERAPY RANGESSTANDARD DOSE: 2.0 - 3.0 Includes: PROPHYLAXIS forvenous thrombosis, systemic embolization; TREATMENT for venous thrombosis and/or pulmonary embolus.HIGH RISK: Target INR is 2.5-3.5 for patients with mechanical heart valves.HEMOGLOBIN AND [id number] 04:22:00 Test Item Value Reference Range Interpretation Comments HEMOGLOBIN (BEAKER) (test code = 8.2 GM/DL 13.7-17.5 L 410) HEMATOCRIT (BEAKER) (test code = 25.7 % 40.1-51.0 L 411) POCT-GLUCOSE [id number] 00:22:00 Test Item Value Reference Range Interpretation Comments POC-GLUCOSE METER 96 mg/dL 70-110 TESTED AT [facility] 6720 (BEAKER) (test code = GENEVIEVE Bruce [facility] [address] 1538) HEMOGLOBIN AND [id number] 21:02:00 Test Item Value Reference Range Interpretation Comments HEMOGLOBIN (BEAKER) (test code = 8.5 GM/DL 13.7-17.5 L 410) HEMATOCRIT (BEAKER) (test code = 26.1 % 40.1-51.0 L 411) POCT-GLUCOSE [id number] 17:53:00 Test Item Value Reference Range Interpretation Comments POC-GLUCOSE METER 123 mg/dL 70-110 H TESTED AT [facility] 6720 (BEAKER) (test code = [facility] Janis [facility] 1538) [address] [id number] 16:37:00 Test Item Value Reference Range Interpretation Comments MAGNESIUM (BEAKER) (test code = 2.1 mg/dL 1.6-2.6 627) BASIC METABOLIC [id number] 16:37:00 Test Item Value Reference Range Interpretation [...] APPLICABLE FOR DIALYSIS PATIEN TS. HEPATITIS B [id number] 13:03:00 Test Item Value Reference Range Interpretation Comments HEPATITIS B CORE TOTAL ANTIBODY Nonreactive Nonreactive (BEAKER) (test code = 497) HEPATITIS B SURFACE ANTIBODY 14.4 mIU/mL <8.0 H (BEAKER) (test code = 647) HEPATITIS B SURFACE ANTIGEN (2) Nonreactive Nonreactive (BEAKER) (test code = 2585) POCT-GLUCOSE [id number] 12:24:00 Test Item Value Reference Range Interpretation Comments POC-GLUCOSE METER 123 mg/dL 70-110 H TESTED AT [place] [address] (BEAKER) (test code = [facility] [place] 1538) [address] HEMOGLOBIN AND [id number] 12:07:00 Test Item Value Reference Range Interpretation Comments HEMOGLOBIN (BEAKER) (test code = 8.1 GM/DL 13.7-17.5 L 410) HEMATOCRIT (BEAKER) (test code = 25.2 % 40.1-51.0 L 411) BLOOD GAS, [id number] 09:34:00 Test Item Value Reference Range Interpretation [...] (test code = 1819) 21.0 % POCT-GLUCOSE [id number] 06:31:00 Test Item Value Reference Range Interpretation Comments POC-GLUCOSE METER 123 mg/dL 70-110 H TESTED AT [facility] 6720 (BEAKER) (test code = [facility] [place] 1538) [address] CALCIUM, [id number] 04:56:00 Test Item Value Reference Range Interpretation Comments CALCIUM IONIZED (BEAKER) (test 1.17 mmol/L 1.12-1.27 code = 698) PH, BLOOD (BEAKER) (test code = 7.41 1810) OXYGEN SATURATION, [id number] 04:55:00 Test Item Value Reference Range Interpretation Comments O2 SATURATION (MEASURED) (BEAKER) 84.2 % (test code = 1455) Obtain from CVP [id number] 04:31:00 Test Item Value Reference Range Interpretation Comments POTASSIUM (BEAKER) (test code = 3.9 meq/L 3.5-5.1 379) [id number] 04:31:00 Test Item Value Reference Range Interpretation Comments MAGNESIUM (BEAKER) (test code = 2.2 mg/dL 1.6-2.6 627) [id number] 04:31:00 Test Item Value Reference Range Interpretation Comments SODIUM (BEAKER) (test code = 381) 140 meq/L 136-145 HEPATIC FUNCTION [id number] 04:31:00 Test Item Value Reference Range Interpretation [...] code = 32 U/L 6-55 347) PROTHROMBIN [id number] 04:24:00 Test Item Value Reference Range Interpretation [...] H PERCENT (BEAKER) (test code = 2801) [id number] 02:44:00 Test Item Value Reference Range Interpretation Comments POTASSIUM (BEAKER) (test code = 3.4 meq/L 3.5-5.1 L 379) HEMOGLOBIN AND [id number] 02:33:00 Test Item Value Reference Range Interpretation Comments HEMOGLOBIN (BEAKER) (test code = 8.3 GM/DL 13.7-17.5 L 410) HEMATOCRIT (BEAKER) (test code = 25.6 % 40.1-51.0 L 411) POCT-GLUCOSE [id number] 00:56:00 Test Item Value Reference Range Interpretation Comments POC-GLUCOSE METER 104 mg/dL 70-110 TESTED AT [facility] 6720 (BEAKER) (test code = [place]EVE [place] 1538) [address] BASIC METABOLIC [id number] 23:41:00 Test Item Value Reference Range Interpretation [...] S NOT APPLICABLE FOR DIALYSIS PATIEN TS. [id number] 18:36:00 Test Item Value Reference Range Interpretation Comments POTASSIUM (BEAKER) (test code = 3.9 meq/L 3.5-5.1 379) [id number] 18:36:00 Test Item Value Reference Range Interpretation Comments MAGNESIUM (BEAKER) (test code = 1.9 mg/dL 1.6-2.6 627) [id number] 18:36:00 Test Item Value Reference Range Interpretation Comments PHOSPHORUS (BEAKER) (test code = 3.5 mg/dL 2.3-4.7 604) [id number] 18:36:00 Test Item Value Reference Range Interpretation Comments SODIUM (BEAKER) (test code = 381) 139 meq/L 136-145 BASIC METABOLIC [id number] 18:36:00 Test Item Value Reference Range Interpretation [...] NOT APPLICABLE FOR DIALYSIS PATIEN TS. PH, [id number] 18:28:00 Test Item Value Reference Range Interpretation Comments PH ARTERIAL (BEAKER) (test code = 383) 7.44 7.35-7.45 CALCIUM, [id number] 18:28:00 Test Item Value Reference Range Interpretation Comments CALCIUM IONIZED (BEAKER) (test 1.16 mmol/L 1.12-1.27 code = 698) PH, BLOOD (BEAKER) (test code = 7.44 1810) HEMOGLOBIN AND [id number] 18:21:00 Test Item Value Reference Range Interpretation Comments HEMOGLOBIN (BEAKER) (test code = 8.6 GM/DL 13.7-17.5 L 410) HEMATOCRIT (BEAKER) (test code = 26.2 % 40.1-51.0 L 411) POCT-GLUCOSE [id number] 17:47:00 Test Item Value Reference Range Interpretation Comments POC-GLUCOSE METER 114 mg/dL 70-110 H TESTED AT [facility] 6720 (BEAKER) (test code = [place]VIEVE [place] 1538) [address] [id number] 14:40:00 Test Item Value Reference Range Interpretation Comments PROCALCITONIN (BEAKER) (test code 0.65 ng/mL <0.05 H = 3036) SEPSIS RISK (ng/mL)Low: 0.05-0.50Intermediate: 0.51-2.00High: >=[id number] 13:50:00 Test Item Value Reference Range Interpretation Comments POTASSIUM (BEAKER) (test code = 4.1 meq/L 3.5-5.1 379) BASIC METABOLIC [id number] 13:50:00 Test Item Value Reference Range Interpretation [...] APPLICABLE FOR DIALYSIS PATIEN TS. VANCOMYCIN LEVEL, [id number] 13:49:00 Test Item Value Reference Range Interpretation Comments VANCOMYCIN TROUGH (BEAKER) (test 16.0 ug/mL 10.0-20.0 code = 522) CALCIUM, [id number] 13:32:00 Test Item Value Reference Range Interpretation Comments CALCIUM IONIZED (BEAKER) (test 1.17 mmol/L 1.12-1.27 code = 698) PH, BLOOD (BEAKER) (test code = 7.45 1810) POCT-GLUCOSE [id number] 13:32:00 Test Item Value Reference Range Interpretation Comments POC-GLUCOSE METER 151 mg/dL 70-110 H TESTED AT [facility] 6720 (BEAKER) (test code = GENEVIEVE [place] 1538) [address] BLOOD GAS, [id number] 10:06:00 Test Item Value Reference Range Interpretation [...] (BEAKER) (test code = 1819) 28.0 % [id number] 08:56:00 Test Item Value Reference Range Interpretation Comments POTASSIUM (BEAKER) (test code = 4.2 meq/L 3.5-5.1 379) BASIC METABOLIC [id number] 08:56:00 Test Item Value Reference Range Interpretation [...] APPLICABLE FOR DIALYSIS PATIEN TS. HEMOGLOBIN AND [id number] 08:38:00 Test Item Value Reference Range Interpretation Comments HEMOGLOBIN (BEAKER) (test code = 7.9 GM/DL 13.7-17.5 L 410) HEMATOCRIT (BEAKER) (test code = 23.9 % 40.1-51.0 L 411) BLOOD [id number] 06:00:00 Test Item Value Reference Range Interpretation Comments CULTURE (BEAKER) (test No growth in 5 days code = 1095) BLOOD [id number] 06:00:00 Test Item Value Reference Range Interpretation Comments CULTURE (BEAKER) (test No growth in 5 days code = 1095) POCT-GLUCOSE [id number] 05:29:00 Test Item Value Reference Range Interpretation Comments POC-GLUCOSE METER 118 mg/dL 70-110 H TESTED AT [facility] 6720 (BEAKER) (test code = GENEVIEVE [place] 1538) [address] CALCIUM, [id number] 04:13:00 Test Item Value Reference Range Interpretation Comments CALCIUM IONIZED (BEAKER) (test 1.18 mmol/L 1.12-1.27 code = 698) PH, BLOOD (BEAKER) (test code = 7.47 1810) [id number] 04:13:00 Test Item Value Reference Range Interpretation Comments POTASSIUM (BEAKER) (test code = 4.4 meq/L 3.5-5.1 379) [id number] 04:13:00 Test Item Value Reference Range Interpretation Comments MAGNESIUM (BEAKER) (test code = 1.9 mg/dL 1.6-2.6 627) [id number] 04:13:00 Test Item Value Reference Range Interpretation Comments PHOSPHORUS (BEAKER) (test code = 2.9 mg/dL 2.3-4.7 604) [id number] 04:13:00 Test Item Value Reference Range Interpretation Comments SODIUM (BEAKER) (test code = 381) 140 meq/L 136-145 HEPATIC FUNCTION [id number] 04:13:00 Test Item Value Reference Range Interpretation [...] code = 31 U/L 6-55 347) PROTHROMBIN [id number] 04:12:00 Test Item Value Reference Range Interpretation [...] PERCENT (BEAKER) (test code = 2801) POCT-GLUCOSE [id number] 00:06:00 Test Item Value Reference Range Interpretation Comments POC-GLUCOSE METER 81 mg/dL 70-110 TESTED AT [facility] 6720 (BEAKER) (test code = [place] [address] 5228) HEMOGLOBIN AND [id number] 23:58:00 Test Item Value Reference Range Interpretation Comments HEMOGLOBIN (BEAKER) (test code = 8.0 GM/DL 13.7-17.5 L 410) HEMATOCRIT (BEAKER) (test code = 24.2 % 40.1-51.0 L 411) [id number] 21:58:00 Test Item Value Reference Range Interpretation Comments POTASSIUM (BEAKER) (test code = 4.2 meq/L 3.5-5.1 379) BASIC METABOLIC [id number] 21:58:00 Test Item Value Reference Range Interpretation [...] NOT APPLICABLE FOR DIALYSIS PATIEN TS. CALCIUM, [id number] 21:53:00 Test Item Value Reference Range Interpretation Comments CALCIUM IONIZED (BEAKER) (test 1.18 mmol/L 1.12-1.27 code = 698) PH, BLOOD (BEAKER) (test code = 7.48 1810) [id number] 18:52:00 Test Item Value Reference Range Interpretation Comments LIPASE (BEAKER) (test code = 749) 57 U/L 8-78 [id number] 18:35:00 Test Item Value Reference Range Interpretation Comments POTASSIUM (BEAKER) (test code = 4.5 meq/L 3.5-5.1 379) [id number] 18:35:00 Test Item Value Reference Range Interpretation Comments MAGNESIUM (BEAKER) (test code = 1.9 mg/dL 1.6-2.6 627) [id number] 18:35:00 Test Item Value Reference Range Interpretation Comments PHOSPHORUS (BEAKER) (test code = 3.1 mg/dL 2.3-4.7 604) [id number] 18:35:00 Test Item Value Reference Range Interpretation Comments SODIUM (BEAKER) (test code = 381) 140 meq/L 136-145 BASIC METABOLIC [id number] 18:35:00 Test Item Value Reference Range Interpretation [...] APPLICABLE FOR DIALYSIS PATIEN TS. HEMOGLOBIN AND [id number] 18:16:00 Test Item Value Reference Range Interpretation Comments HEMOGLOBIN (BEAKER) (test code = 7.7 GM/DL 13.7-17.5 L 410) HEMATOCRIT (BEAKER) (test code = 23.7 % 40.1-51.0 L 411) PH, [id number] 18:07:00 Test Item Value Reference Range Interpretation Comments PH ARTERIAL (BEAKER) (test code = 383) 7.47 7.35-7.45 H POCT-GLUCOSE [id number] 17:24:00 Test Item Value Reference Range Interpretation Comments POC-GLUCOSE METER 151 mg/dL 70-110 H TESTED AT [place] [address] ([facility]) (test code = GENEVIEVE [facility] 1538) [address] [id number] 12:50:00 Test Item Value Reference Range Interpretation Comments POTASSIUM (BEAKER) (test code = 5.1 meq/L 3.5-5.1 379) CALCIUM, [id number] 12:37:00 Test Item Value Reference Range Interpretation Comments CALCIUM IONIZED (BEAKER) (test 1.15 mmol/L 1.12-1.27 code = 698) PH, BLOOD (AKER) (test code = 7.46 1810) HEMOGLOBIN AND [id number] 12:32:00 Test Item Value Reference Range Interpretation Comments HEMOGLOBIN (BEAKER) (test code = 8.0 GM/DL 13.7-17.5 L 410) [facility]IT [facility] (test code = 24.5 % 40.1-51.0 L 411) POCT-GLUCOSE [id number] 12:04:00 Test Item Value Reference Range Interpretation Comments POC-GLUCOSE METER 191 mg/dL 70-110 H TESTED AT [place] [address] ([facility]) (test code = GENEVIEVE Bruce [facility] 1538) [address] [id number] 09:30:00 Test Item Value Reference Range Interpretation Comments POTASSIUM (BEAKER) (test code = 4.9 meq/L 3.5-5.1 379) [id number] 09:28:00 Test Item Value Reference Range Interpretation Comments PARTIAL THROMBOPLASTIN TIME 33.3 seconds 22.5-36.0 (BEAKER) (test code = 760) PROTHROMBIN [id number] 09:27:00 Test Item Value Reference Range Interpretation Comments PROTIME (BEAKER) (test code = 15.6 seconds 11.7-14.7 H 759) [facility] (test code = 370) 1.2 <=5.9 RECOMMENDED COUMADIN/WARFARIN INR THERAPY RANGESSTANDARD DOSE: 2.0 - 3.0 Includes: PROPHYLAXIS forvenous thrombosis, systemic embolization; TREATMENT for venous thrombosis and/or pulmonary embolus.HIGH RISK: Target INR is 2.5-3.5 for patients with mechanical heart valves.[id number] 09:22:00 Test Item Value Reference Range Interpretation Comments POTASSIUM (BEAKER) (test code = 4.9 meq/L 3.5-5.1 379) [id number] 09:22:00 Test Item Value Reference Range Interpretation Comments MAGNESIUM (BEAKER) (test code = 2.1 mg/dL 1.6-2.6 627) [id number] 09:22:00 Test Item Value Reference Range Interpretation Comments PHOSPHORUS (BEAKER) (test code = 3.6 mg/dL 2.3-4.7 604) [id number] 09:22:00 Test Item Value Reference Range Interpretation Comments SODIUM (BEAKER) (test code = 381) 140 meq/L 136-145 BASIC METABOLIC [id number] 09:22:00 Test Item Value Reference Range Interpretation [...] APPLICABLE FOR DIALYSIS PATIEN TS. HEPATIC FUNCTION [id number] 09:22:00 Test Item Value Reference Range Interpretation [...] U/L 6-55 347) SPUTUM CULTURE + GRAM [id number] 08:37:00 Test Item Value Reference Interpretation Comments Range CULTURE (AKER) (test Organism(s) code = 1095) under evaluation [...] Vancomycin (test code S = 13) CULTURE (AKER) (test A <1+ S taphylococcus code = 1095) aureus GRAM STAIN RESULT 1+ WBCs (BEAKER) (test code = 1123) GRAM STAIN RESULT 0-5 epithelial (BEAKER) (test code = cells [id number]) GRAM STAIN RESULT No organisms (BEAKER) (test code = seen 700472) POCT-GLUCOSE [id number] 06:55:00 Test Item Value Reference Range Interpretation Comments POC-GLUCOSE METER 153 mg/dL 70-110 H TESTED AT [facility] 6720 ([facility]) (test code = GENEVIEVE Bruce [place] 1538) [address] [id number] 06:01:00 Test Item Value Reference Range Interpretation [...] for patients with mechanical heart valves.OXYGEN SATURATION, [id number] 06:01:00 Test Item Value Reference Range Interpretation Comments O2 SATURATION (MEASURED) (BEAKER) 85.1 % (test code = 1455) Obtain from CVP portCALCIUM, [id number] 06:01:00 Test Item Value Reference Range Interpretation Comments CALCIUM IONIZED (BEAKER) (test 1.13 mmol/L 1.12-1.27 code = 698) PH, BLOOD (BEAKER) (test code = 7.41 1810) CBC W/PLT COUNT & AUTO [id number] 05:43:00 Test Item Value Reference Range Interpretation [...] (BEAKER) (test code = 2801) HEMOGLOBIN AND [id number] 05:41:00 Test Item Value Reference Range Interpretation Comments HEMOGLOBIN (BEAKER) (test code = 7.7 GM/DL 13.7-17.5 L 410) HEMATOCRIT (BEAKER) (test code = 23.6 % 40.1-51.0 L 411) BLOOD GAS, [id number] 05:34:00 Test Item Value Reference Range Interpretation [...] 1819) 25.0 % LACTIC ACID, ARTERIAL, WHOLE [id number] 05:18:00 Test Item Value Reference Range Interpretation Comments LACTATE BLOOD ARTERIAL (2) 0.6 mmol/L 0.5-2.2 (BEAKER) (test code = 2874) Effective 02/25/2016: Units/Reference Range ChangeNew: 0.5-2.2 mmol/L Previous: 5-20 mg/[id number] 01:03:00 Test Item Value Reference Range Interpretation Comments POTASSIUM (BEAKER) (test code = 4.7 meq/L 3.5-5.1 379) HEMOGLOBIN AND [id number] 00:48:00 Test Item Value Reference Range Interpretation Comments HEMOGLOBIN (BEAKER) (test code = 7.9 GM/DL 13.7-17.5 L 410) HEMATOCRIT (BEAKER) (test code = 24.1 % 40.1-51.0 L 411) POCT-GLUCOSE [id number] 23:46:00 Test Item Value Reference Range Interpretation Comments POC-GLUCOSE METER 146 mg/dL 70-110 H TESTED AT [facility] 6720 (BEAKER) (test code = [place] 1538) [address] [id number] 20:23:00 Test Item Value Reference Range Interpretation Comments POTASSIUM (BEAKER) (test code = 4.7 meq/L 3.5-5.1 379) PROTHROMBIN [id number] 20:14:00 Test Item Value Reference Range Interpretation Comments PROTIME (BEAKER) (test code = 16.1 seconds 11.7-14.7 H 759) INR (BEAKER) (test code = 370) 1.3 <=5.9 RECOMMENDED COUMADIN/WARFARIN INR THERAPY RANGESSTANDARD DOSE: 2.0 - 3.0 Includes: PROPHYLAXIS forvenous thrombosis, systemic embolization; TREATMENT for venous thrombosis and/or pulmonary embolus.HIGH RISK: Target INR is 2.5-3.5 for patients with mechanical heart valves.[id number] 20:14:00 Test Item Value Reference Range Interpretation Comments PARTIAL THROMBOPLASTIN TIME 36.0 seconds 22.5-36.0 (BEAKER) (test code = 760) CALCIUM, [id number] 20:02:00 Test Item Value Reference Range Interpretation Comments CALCIUM IONIZED (BEAKER) (test 1.14 mmol/L 1.12-1.27 code = 698) PH, BLOOD (BEAKER) (test code = 7.42 1810) HEMOGLOBIN AND [id number] 19:04:00 Test Item Value Reference Range Interpretation Comments HEMOGLOBIN (BEAKER) (test code = 8.0 GM/DL 13.7-17.5 L 410) HEMATOCRIT (BEAKER) (test code = 24.3 % 40.1-51.0 L 411) [id number] 16:46:00 Test Item Value Reference Range Interpretation Comments POTASSIUM (BEAKER) (test code = 5.0 meq/L 3.5-5.1 379) [id number] 16:46:00 Test Item Value Reference Range Interpretation Comments MAGNESIUM (BEAKER) (test code = 2.1 mg/dL 1.6-2.6 627) [id number] 16:46:00 Test Item Value Reference Range Interpretation Comments PHOSPHORUS (BEAKER) (test code = 3.1 mg/dL 2.3-4.7 604) [id number] 16:46:00 Test Item Value Reference Range Interpretation Comments SODIUM (BEAKER) (test code = 381) 138 meq/L 136-145 PLATELET [id number] 16:34:00 Test Item Value Reference Range Interpretation Comments PLATELET COUNT (BEAKER) (test code 57 K/CU MM 150-450 L = 756) BLOOD GAS, [id number] 16:31:00 Test Item Value Reference Range Interpretation [...] (test 37.0 C code = 1818) POCT-GLUCOSE [id number] 16:25:00 Test Item Value Reference Range Interpretation Comments POC-GLUCOSE METER 135 mg/dL 70-110 H TESTED AT [facility] 6720 (BEAKER) (test code = GENEVIEVE Janis [place] 1538) [address] HEMOGLOBIN AND [id number] 14:50:00 Test Item Value Reference Range Interpretation Comments HEMOGLOBIN (BEAKER) (test code = 7.0 GM/DL 13.7-17.5 L 410) HEMATOCRIT (BEAKER) (test code = 21.1 % 40.1-51.0 L 411) [id number] 12:41:00 Test Item Value Reference Range Interpretation Comments LIPASE (BEAKER) (test code = 749) 44 U/L 8-78 [id number] 12:41:00 Test Item Value Reference Range Interpretation Comments POTASSIUM (BEAKER) (test code = 4.7 meq/L 3.5-5.1 379) LACTIC ACID, ARTERIAL, WHOLE [id number] 12:34:00 Test Item Value Reference Range Interpretation Comments LACTATE BLOOD ARTERIAL (2) 0.6 mmol/L 0.5-2.2 (BEAKER) (test code = 2874) Effective 02/25/2016: Units/Reference Range ChangeNew: 0.5-2.2 mmol/L Previous: 5-20 mg/dLBLOOD GAS, [id number] 12:32:00 Test Item Value Reference Range Interpretation [...] (test code = 1819) 24.0 % CALCIUM, [id number] 12:32:00 Test Item Value Reference Range Interpretation Comments CALCIUM IONIZED (BEAKER) (test 1.13 mmol/L 1.12-1.27 code = 698) PH, BLOOD (BEAKER) (test code = 7.49 1810) [id number] 12:26:00 Test Item Value Reference Range Interpretation Comments PARTIAL THROMBOPLASTIN TIME 38.8 seconds 22.5-36.0 H (BEAKER) (test code = 760) PROTHROMBIN [id number] 12:25:00 Test Item Value Reference Range Interpretation Comments PROTIME (BEAKER) (test code = 16.4 seconds 11.7-14.7 H 759) INR (BEAKER) (test code = 370) 1.3 <=5.9 RECOMMENDED COUMADIN/WARFARIN INR THERAPY RANGESSTANDARD DOSE: 2.0 - 3.0 Includes: PROPHYLAXIS forvenous thrombosis, systemic embolization; TREATMENT for venous thrombosis and/or pulmonary embolus.HIGH RISK: Target INR is 2.5-3.5 for patients with mechanical heart valves.POCT-GLUCOSE [id number] 12:04:00 Test Item Value Reference Range Interpretation Comments POC-GLUCOSE METER 121 mg/dL 70-110 H TESTED AT [facility] [address] ([facility]) (test code = [place] 1538) [address] HEMOGLOBIN AND [id number] 10:46:00 Test Item Value Reference Range Interpretation Comments HEMOGLOBIN (BEAKER) (test code = 7.1 GM/DL 13.7-17.5 L 410) HEMATOCRIT (BEAKER) (test code = 21.1 % 40.1-51.0 L 411) CALCIUM, [id number] 09:20:00 Test Item Value Reference Range Interpretation Comments CALCIUM IONIZED (BEAKER) (test 1.13 mmol/L 1.12-1.27 code = 698) PH, BLOOD (BEAKER) (test code = 7.44 1810) CBC W/PLT COUNT & AUTO [id number] 08:02:00 Test Item Value Reference Range Interpretation [...] few (test code = 478) BASIC METABOLIC [id number] 07:43:00 Test Item Value Reference Range Interpretation [...] GFR I S NOT APPLICABLE FOR DIALYSIS PATILIZ MATTHEWS. [id number] 07:08:00 Test Item Value Reference Range Interpretation Comments PARTIAL THROMBOPLASTIN TIME 36.9 seconds 22.5-36.0 H (BEAKER) (test code = 760) PROTHROMBIN [id number] 07:07:00 Test Item Value Reference Range Interpretation [...] ChangeNew: 0.5-2.2 mmol/L Previous: 5-20 mg/dLBLOOD GAS, [id number] 06:53:00 Test Item Value Reference Range Interpretation [...] code = 1819) 30.0 % HEMOGLOBIN AND [id number] 06:42:00 Test Item Value Reference Range Interpretation Comments HEMOGLOBIN (BEAKER) (test code = 7.4 GM/DL 13.7-17.5 L 410) HEMATOCRIT (BEAKER) (test code = 22.4 % 40.1-51.0 L 411) POCT-GLUCOSE [id number] 06:33:00 Test Item Value Reference Range Interpretation Comments POC-GLUCOSE METER 159 mg/dL 70-110 H TESTED AT [facility] 6720 (BEAKER) (test code = [place] 1538) [address] CALCIUM, [id number] 04:45:00 Test Item Value Reference Range Interpretation Comments CALCIUM IONIZED (BEAKER) (test 1.12 mmol/L 1.12-1.27 code = 698) PH, BLOOD (BEAKER) (test code = 7.42 1810) [id number] 04:42:00 Test Item Value Reference Range Interpretation Comments MAGNESIUM (BEAKER) 2.4 mg/dL 1.6-2.6 Specimen slightly (test code = 627) hemolyzed [id number] 04:42:00 Test Item Value Reference Range Interpretation Comments POTASSIUM (BEAKER) 4.7 meq/L 3.5-5.1 Specimen slightly (test code = 379) hemolyzed HEPATIC FUNCTION [id number] 04:42:00 Test Item Value Reference Range Interpretation [...] (test code = 347) hemolyzed OXYGEN SATURATION, [id number] 04:35:00 Test Item Value Reference Range Interpretation Comments O2 SATURATION (MEASURED) (BEAKER) 95.5 % (test code = 1455) Obtain from CVP portLACTIC ACID, ARTERIAL, WHOLE [id number] 01:05:00 Test Item Value Reference Range Interpretation Comments LACTATE BLOOD ARTERIAL (2) 0.6 mmol/L 0.5-2.2 (BEAKER) (test code = 2874) Effective 02/25/2016: Units/Reference Range ChangeNew: 0.5-2.2 mmol/L Previous: 5-20 mg/dLBLOOD GAS, [id number] 00:41:00 Test Item Value Reference Range Interpretation [...] (test code = 1819) 50.0 % CALCIUM, [id number] 00:41:00 Test Item Value Reference Range Interpretation Comments CALCIUM IONIZED (BEAKER) (test 1.12 mmol/L 1.12-1.27 code = 698) PH, BLOOD (BEAKER) (test code = 7.42 1810) [id number] 00:25:00 Test Item Value Reference Range Interpretation Comments POTASSIUM (BEAKER) (test code = 4.7 meq/L 3.5-5.1 379) [id number] 00:20:00 Test Item Value Reference Range Interpretation Comments PARTIAL THROMBOPLASTIN TIME 36.5 seconds 22.5-36.0 H (BEAKER) (test code = 760) PROTHROMBIN TIME/[id number] 00:19:00 Test Item Value Reference Range Interpretation Comments PROTIME (BEAKER) (test code = 16.4 seconds 11.7-14.7 H 759) INR (BEAKER) (test code = 370) 1.3 <=5.9 RECOMMENDED COUMADIN/WARFARIN INR THERAPY RANGESSTANDARD DOSE: 2.0 - 3.0 Includes: PROPHYLAXIS forvenous thrombosis, systemic embolization; TREATMENT for venous thrombosis and/or pulmonary embolus.HIGH RISK: Target INR is 2.5-3.5 for patients with mechanical heart valves.POCT-GLUCOSE [id number] 00:12:00 Test Item Value Reference Range Interpretation Comments POC-GLUCOSE METER 186 mg/dL 70-110 H TESTED AT [facility] 6720 ([facility]) (test code = [place] 1538) [address] HEMOGLOBIN AND [id number] 00:08:00 Test Item Value Reference Range Interpretation Comments HEMOGLOBIN (BEAKER) (test code = 7.9 GM/DL 13.7-17.5 L 410) HEMATOCRIT (BEAKER) (test code = 23.1 % 40.1-51.0 L 411) [id number] 19:56:00 Test Item Value Reference Range Interpretation Comments POTASSIUM (BEAKER) (test code = 4.9 meq/L 3.5-5.1 379) [id number] 19:56:00 Test Item Value Reference Range Interpretation Comments MAGNESIUM (BEAKER) (test code = 2.2 mg/dL 1.6-2.6 627) [id number] 19:56:00 Test Item Value Reference Range Interpretation Comments PHOSPHORUS (BEAKER) (test code = 3.8 mg/dL 2.3-4.7 604) [id number] 19:56:00 Test Item Value Reference Range Interpretation Comments SODIUM (BEAKER) (test code = 381) 137 meq/L 136-145 BASIC METABOLIC [id number] 19:56:00 Test Item Value Reference Range Interpretation [...] PATIEN TS. CBC W/PLT COUNT & AUTO [id number] 19:56:00 Test Item Value Reference Range Interpretation [...] PERCENT (BEAKER) (test code = 2801) CALCIUM, [id number] 19:41:00 Test Item Value Reference Range Interpretation Comments CALCIUM IONIZED (BEAKER) (test 1.13 mmol/L 1.12-1.27 code = 698) PH, BLOOD (BEAKER) (test code = 7.45 1810) LACTIC ACID, ARTERIAL, WHOLE [id number] 18:09:00 Test Item Value Reference Range Interpretation Comments LACTATE BLOOD ARTERIAL (2) 0.6 mmol/L 0.5-2.2 (BEAKER) (test code = 2874) Effective 02/25/2016: Units/Reference Range ChangeNew: 0.5-2.2 mmol/L Previous: 5-20 mg/[id number] 18:09:00 Test Item Value Reference Range Interpretation Comments TRIGLYCERIDES (BEAKER) (test code = 259 mg/dL 540) TRIGLYCERIDE REFERENCE RANGELow Risk <150Borderline Risk 150-199High Risk 200-499Very High Risk>=[id number] 18:05:00 Test Item Value Reference Range Interpretation Comments PARTIAL THROMBOPLASTIN TIME 35.6 seconds 22.5-36.0 (BEAKER) (test code = 760) PROTHROMBIN [id number] 18:04:00 Test Item Value Reference Range Interpretation Comments PROTIME (BEAKER) (test code = 16.2 seconds 11.7-14.7 H 759) INR (BEAKER) (test code = 370) 1.3 <=5.9 RECOMMENDED COUMADIN/WARFARIN INR THERAPY RANGESSTANDARD DOSE: 2.0 - 3.0 Includes: PROPHYLAXIS forvenous thrombosis, systemic embolization; TREATMENT for venous thrombosis and/or pulmonary embolus.HIGH RISK: Target INR is 2.5-3.5 for patients with mechanical heart valves.HEMOGLOBIN AND [id number] 17:52:00 Test Item Value Reference Range Interpretation Comments HEMOGLOBIN (BEAKER) (test code = 7.9 GM/DL 13.7-17.5 L 410) HEMATOCRIT (BEAKER) (test code = 22.4 % 40.1-51.0 L 411) BLOOD GAS, [id number] 17:48:00 Test Item Value Reference Range Interpretation [...] (test code = 1819) 50.0 % POCT-GLUCOSE [id number] 17:45:00 Test Item Value Reference Range Interpretation Comments POC-GLUCOSE METER 184 mg/dL 70-110 H TESTED AT [facility] 6720 (BEAKER) (test code = [place] 1538) [address] [id number] 16:05:00 Test Item Value Reference Range Interpretation Comments POTASSIUM (BEAKER) (test code = 4.9 meq/L 3.5-5.1 379) CALCIUM, [id number] 15:53:00 Test Item Value Reference Range Interpretation Comments CALCIUM IONIZED (BEAKER) (test 1.18 mmol/L 1.12-1.27 code = 698) PH, BLOOD (BEAKER) (test code = 7.42 1810) [id number] 12:36:00 Test Item Value Reference Range Interpretation Comments PARTIAL THROMBOPLASTIN TIME 39.8 seconds 22.5-36.0 H (BEAKER) (test code = 760) PROTHROMBIN [id number] 12:35:00 Test Item Value Reference Range Interpretation [...] Units/Reference Range ChangeNew: 0.5-2.2 mmol/L Previous: 5-20 mg/[id number] 12:34:00 Test Item Value Reference Range Interpretation Comments POTASSIUM (BEAKER) (test code = 4.6 meq/L 3.5-5.1 379) BLOOD GAS, [id number] 12:17:00 Test Item Value Reference Range Interpretation [...] code = 1819) 50.0 % HEMOGLOBIN AND [id number] 12:17:00 Test Item Value Reference Range Interpretation Comments HEMOGLOBIN (BEAKER) (test code = 9.6 GM/DL 13.7-17.5 L 410) HEMATOCRIT (BEAKER) (test code = 27.3 % 40.1-51.0 L 411) CALCIUM, [id number] 12:17:00 Test Item Value Reference Range Interpretation Comments CALCIUM IONIZED (BEAKER) (test 1.13 mmol/L 1.12-1.27 code = 698) PH, BLOOD (BEAKER) (test code = 7.37 1810) OXYGEN SATURATION, [id number] 12:16:00 Test Item Value Reference Range Interpretation Comments O2 SATURATION (MEASURED) (BEAKER) 81.6 % (test code = 1455) Obtain from CVP portRAD, CHEST, 1 VIEW, NON [id number] 12:16:00Reason for exam:->assess for pulmonary edemaShould this [...] MDReport Verified Date/Time: 07/09/2018 12:16:49 Reading Location: [facility] C013Y CT Body Reading Room -GLUCOSE [id number] 12:06:00 Test Item Value Reference Range Interpretation Comments POC-GLUCOSE METER 209 mg/dL 70-110 H TESTED AT [facility] 6720 (BEAKER) (test code = [place] 1538) [address] HEMOGLOBIN AND [id number] 10:33:00 Test Item Value Reference Range Interpretation [...] % 0.0-5.0 code = 1414) BLOOD GAS, [id number] 09:22:00 Test Item Value Reference Range Interpretation [...] FIO2 (BEAKER) (test code = 1819) 60 [id number] 08:58:00 Test Item Value Reference Range Interpretation Comments POTASSIUM (BEAKER) (test code = 4.7 meq/L 3.5-5.1 379) [id number] 08:58:00 Test Item Value Reference Range Interpretation Comments MAGNESIUM (BEAKER) (test code = 2.2 mg/dL 1.6-2.6 627) [id number] 08:58:00 Test Item Value Reference Range Interpretation Comments PHOSPHORUS (BEAKER) (test code = 3.4 mg/dL 2.3-4.7 604) [id number] 08:58:00 Test Item Value Reference Range Interpretation Comments SODIUM (BEAKER) (test code = 381) 136 meq/L 136-145 LACTIC ACID, ARTERIAL, WHOLE [id number] 08:55:00 Test Item Value Reference Range Interpretation Comments LACTATE BLOOD ARTERIAL (2) 1.9 mmol/L 0.5-2.2 (BEAKER) (test code = 2874) Effective 02/25/2016: Units/Reference Range ChangeNew: 0.5-2.2 mmol/L Previous: 5-20 mg/dLCBC W/PLT COUNT & AUTO [id number] 08:46:00 Test Item Value Reference Range Interpretation [...] = 31.0 % 40.1-51.0 L 411) CALCIUM, [id number] 08:30:00 Test Item Value Reference Range Interpretation Comments CALCIUM IONIZED (BEAKER) (test 1.17 mmol/L 1.12-1.27 code = 698) PH, BLOOD (BEAKER) (test code = 7.50 1810) PH, [id number] 08:30:00 Test Item Value Reference Range Interpretation Comments PH ARTERIAL (BEAKER) (test code = 383) 7.50 7.35-7.45 H POCT-GLUCOSE [id number] 08:26:00 Test Item Value Reference Range Interpretation Comments POC-GLUCOSE METER 180 mg/dL 70-110 H TESTED AT [facility] 6720 (BEAKER) (test code = GENEVIEVE Bruce [facility] 1538) [address] ANG, EMBOLIZATION, EXTENSIVE - [id number] 07:11:00Reason for exam:- >upper GI bleedFINAL REPORT [...] MDReport Verified Date/Time: 07/09/2018 07:11:14 Reading Location: [place] [address] Angio Body Reading Room CALCIUM, [id number] 07:06:00 Test Item Value Reference Range Interpretation Comments CALCIUM IONIZED (BEAKER) (test 1.10 mmol/L 1.12-1.27 L code = 698) PH, BLOOD (BEAKER) (test code = 7.42 1810) MRSA [id number] 06:59:00 Test Item Value Reference Range Interpretation Comments CULTURE (BEAKER) (test code No MRSA isolated = 1095) [id number] 06:24:00 Test Item Value Reference Range Interpretation [...] exclusion of thrombosis is within 95-100% range. [id number] 06:20:00 Test Item Value Reference Range Interpretation Comments FIBRINOGEN LEVEL (BEAKER) (test 128 mg/dl 225-434 L code = 658) HEPATIC FUNCTION [id number] 06:16:00 Test Item Value Reference Range Interpretation [...] (test code = 28 U/L 6-55 347) [id number] 06:15:00 Test Item Value Reference Range Interpretation [...] for patients with mechanical heart valves.BASIC METABOLIC [id number] 06:12:00 Test Item Value Reference Range Interpretation [...] S NOT APPLICABLE FOR DIALYSIS PATIEN TS. [id number] 06:12:00 Test Item Value Reference Range Interpretation Comments MAGNESIUM (BEAKER) (test code = 1.7 mg/dL 1.6-2.6 627) [id number] 06:12:00 Test Item Value Reference Range Interpretation Comments POTASSIUM (BEAKER) (test code = 4.8 meq/L 3.5-5.1 379) [id number] 06:12:00 Test Item Value Reference Range Interpretation Comments SODIUM (BEAKER) (test code = 381) 136 meq/L 136-145 PLATELET [id number] 05:53:00 Test Item Value Reference Range Interpretation Comments PLATELET COUNT (BEAKER) (test code 62 K/CU MM 150-450 L = 756) HEMOGLOBIN AND [id number] 05:53:00 Test Item Value Reference Range Interpretation [...] % 0.0-5.0 code = 1414) POCT-BLOOD GASES, [id number] 03:55:00 Test Item Value Reference Range Interpretation Comments TEMP, CELSIUS-POC 36.1 (BEAKER) (test code = 1834) FIO2-POC (BEAKER) 60 TESTED AT [place] [address] (test code = 1835) [facility] [place] [address] PH, ARTERIAL-POC 7.337 7.350-7.450 L (BEAKER) (test [...] L ARTERIAL-POC (BEAKER) (test code = 1841) [id number] 03:55:00 Test Item Value Reference Range Interpretation Comments POC-SODIUM (BEAKER) 139 meq/L 135-148 TESTED [place] [address] (test code = 1542) [facility] [place] [address] [id number]-[id number] 03:55:00 Test Item Value Reference Range Interpretation Comments POC-POTASSIUM 4.7 meq/L 3.6-5.5 TESTED AT [facility] 6720 (BEAKER) (test code [facility] [address] = 1540) [id number] 03:55:00 Test Item Value Reference Range Interpretation Comments POC-GLUCOSE (BEAKER) 175 mg/dL 70-110 H TESTED AT [place] [address] (test code = 1855) [place] [address] POCT-CALCIUM [id number] 03:55:00 Test Item Value Reference Range Interpretation Comments POC-CALCIUM IONIZED 1.27 mmol/L 1.12-1.27 TESTED [place] [address] (BEAKER) (test code = GENEVIEVE Bruce [facility] 1536) [address] [id number] 03:55:00 Test Item Value Reference Range Interpretation Comments POC-HEMATOCRIT 26 % 40-50 L TESTED AT [place] [address] (BEAKER) (test code = [facility] Janis [facility] [address]) [id number] 03:55:00 Test Item Value Reference Range Interpretation Comments POC-HEMOGLOBIN 8.8 g/dL 13.0-16.8 L TESTED AT [place] [address] (BEAKER) (test code = [facility] 1856) [id number] AT [facility] [address] [place] [address] CALCIUM, [id number] 02:37:00 Test Item Value Reference Range Interpretation Comments CALCIUM IONIZED (BEAKER) (test 1.94 mmol/L 1.12-1.27 HH code = 698) PH, BLOOD (BEAKER) (test code = 7.26 1810) BLOOD GAS, [id number] 02:30:00 Test Item Value Reference Range Interpretation [...] (test 0.0 % 0.0-5.0 code = 1414) [id number] 01:54:00 Test Item Value Reference Range Interpretation Comments POTASSIUM (BEAKER) (test code = 3.9 meq/L 3.5-5.1 379) [id number] 01:54:00 Test Item Value Reference Range Interpretation Comments SODIUM (BEAKER) (test code = 381) 138 meq/L 136-145 PLATELET [id number] 01:46:00 Test Item Value Reference Range Interpretation Comments PLATELET COUNT (BEAKER) (test code 69 K/CU MM 150-450 L = 756) HEMOGLOBIN AND [id number] 01:46:00 Test Item Value Reference Range Interpretation Comments HEMOGLOBIN (BEAKER) (test code = 9.0 GM/DL 13.7-17.5 L 410) HEMATOCRIT (BEAKER) (test code = 27.4 % 40.1-51.0 L 411) POCT-BLOOD GASES, [id number] 01:27:00 Test Item Value Reference Range Interpretation Comments TEMP, CELSIUS-POC 36.4 (BEAKER) (test code = 1834) FIO2-POC (BEAKER) TESTED AT [facility] 6720 (test code = 1835) [place] [address] PH, ARTERIAL-POC 7.194 7.350-7.450 LL (BEAKER) (test code = 1836) PCO2, ARTERIAL-POC 45.4 mm Hg 35.0-45.0 H (BEAKER) (test code = 1837) PO2, ARTERIAL-POC 159.0 mm Hg 80.0-90.0 H (BEAKER) (test code = 1838) SO2, ARTERIAL-POC 99.0 % 96.0-97.0 H (AKER) (test code = 1839) HCO3, ARTERIAL-POC 17.7 meq/L 21.0-29.0 L (BEAKER) (test code = 1840) BASE EXCESS, -11.0 meq/L -2.0-3.0 L ARTERIAL-POC (BEAKER) (test code = 1841) [id number] 01:27:00 Test Item Value Reference Range Interpretation Comments POC-SODIUM ([facility]) 141 meq/L 135-148 TESTED [place] [address] (test code = 1542) A[place] Issa [facility] [address] [id number] 01:27:00 Test Item Value Reference Range Interpretation Comments POC-POTASSIUM 4.0 meq/L 3.6-5.5 TESTED AT [place] [address] ([facility]) (test code [facility] [address] = 1540) [id number] 01:27:00 Test Item Value Reference Range Interpretation Comments POC-GLUCOSE ([facility]) 219 mg/dL 70-110 H TESTED AT [place] [address] (test code = 1855) A[place] Issa [facility] [address] POCT-CALCIUM [id number] 01:27:00 Test Item Value Reference Range Interpretation Comments POC-CALCIUM IONIZED 0.99 mmol/L 1.12-1.27 L TESTED [place] [address] ([facility]) (test [facility] 1533) [address] [id number] 01:27:00 Test Item Value Reference Range Interpretation Comments POC-HEMATOCRIT 20 % 40-50 L TESTED AT [place] [address] ([facility]) (test code = [facility] [address]) [id number] 01:27:00 Test Item Value Reference Range Interpretation Comments POC-HEMOGLOBIN 6.8 g/dL 13.0-16.8 L TESTED AT [place] [address] ([facility]) (test code = [place] 1856) [id number] AT [facility] [address] [place] [address] HEMOGLOBIN AND [id number] 01:04:00 Test Item Value Reference Range Interpretation Comments HEMOGLOBIN (BEAKER) (test code = 6.9 GM/DL 13.7-17.5 L 410) HEMATOCRIT (BEAKER) (test code = 21.0 % 40.1-51.0 L 411) VANCOMYCIN LEVEL, [id number] 00:57:00 Test Item Value Reference Range Interpretation Comments VANCOMYCIN TROUGH (BEAKER) (test 19.9 ug/mL 10.0-20.0 code = 522) CALCIUM, [id number] 00:41:00 Test Item Value Reference Range Interpretation Comments CALCIUM IONIZED (BEAKER) (test 1.01 mmol/L 1.12-1.27 L code = 698) PH, BLOOD (BEAKER) (test code = 7.35 1810) [id number] 00:41:00 Test Item Value Reference Range Interpretation Comments POTASSIUM (BEAKER) (test code = 4.5 meq/L 3.5-5.1 379) HEMOGLOBIN AND [id number] 21:53:00 Test Item Value Reference Range Interpretation Comments HEMOGLOBIN (BEAKER) (test code = 6.1 GM/DL 13.7-17.5 L 410) HEMATOCRIT (BEAKER) (test code = 18.0 % 40.1-51.0 L 411) [id number] 19:42:00 Test Item Value Reference Range Interpretation Comments POTASSIUM (BEAKER) (test code = 4.6 meq/L 3.5-5.1 379) [id number] 19:42:00 Test Item Value Reference Range Interpretation Comments MAGNESIUM (BEAKER) (test code = 1.8 mg/dL 1.6-2.6 627) [id number] 19:42:00 Test Item Value Reference Range Interpretation Comments PHOSPHORUS (BEAKER) (test code = 3.5 mg/dL 2.3-4.7 604) [id number] 19:42:00 Test Item Value Reference Range Interpretation Comments SODIUM (BEAKER) (test code = 381) 137 meq/L 136-145 PROTHROMBIN [id number] 19:40:00 Test Item Value Reference Range Interpretation Comments PROTIME (BEAKER) (test code = 18.3 seconds 11.7-14.7 H 759) INR (BEAKER) (test code = 370) 1.5 <=5.9 RECOMMENDED COUMADIN/WARFARIN INR THERAPY RANGESSTANDARD DOSE: 2.0 - 3.0 Includes: PROPHYLAXIS forvenous thrombosis, systemic embolization; TREATMENT for venous thrombosis and/or pulmonary embolus.HIGH RISK: Target INR is 2.5-3.5 for patients with mechanical heart valves.PH, [id number] 19:30:00 Test Item Value Reference Range Interpretation Comments PH ARTERIAL (BEAKER) (test code = 383) 7.44 7.35-7.45 CALCIUM, [id number] 19:30:00 Test Item Value Reference Range Interpretation Comments CALCIUM IONIZED (BEAKER) (test 1.13 mmol/L 1.12-1.27 code = 698) PH, BLOOD (BEAKER) (test code = 7.44 1810) HEMOGLOBIN AND [id number] 19:28:00 Test Item Value Reference Range Interpretation Comments HEMOGLOBIN (BEAKER) (test code = 7.5 GM/DL 13.7-17.5 L 410) HEMATOCRIT (BEAKER) (test code = 21.8 % 40.1-51.0 L 411) POCT-GLUCOSE [id number] 17:21:00 Test Item Value Reference Range Interpretation Comments POC-GLUCOSE METER 189 mg/dL 70-110 H TESTED AT [facility] 6720 (BEAKER) (test code = [place] [address]) [address] [id number] 16:23:00 Test Item Value Reference Range Interpretation Comments MAGNESIUM (BEAKER) (test code = 1.8 mg/dL 1.6-2.6 627) CALCIUM, [id number] 16:07:00 Test Item Value Reference Range Interpretation Comments CALCIUM IONIZED (BEAKER) (test 1.14 mmol/L 1.12-1.27 code = 698) PH, BLOOD (BEAKER) (test code = 7.43 1810) HEMOGLOBIN AND [id number] 16:05:00 Test Item Value Reference Range Interpretation Comments HEMOGLOBIN (BEAKER) (test code = 8.1 GM/DL 13.7-17.5 L 410) HEMATOCRIT (BEAKER) (test code = 23.4 % 40.1-51.0 L 411) BLOOD GAS, [id number] 12:34:00 Test Item Value Reference Range Interpretation [...] (test code = 1819) 60.0 % PROTHROMBIN [id number] 12:05:00 Test Item Value Reference Range Interpretation Comments PROTIME (BEAKER) (test code = 18.1 seconds 11.7-14.7 H 759) INR (BEAKER) (test code = 370) 1.5 <=5.9 RECOMMENDED COUMADIN/WARFARIN INR THERAPY RANGESSTANDARD DOSE: 2.0 - 3.0 Includes: PROPHYLAXIS forvenous thrombosis, systemic embolization; TREATMENT for venous thrombosis and/or pulmonary embolus.HIGH RISK: Target INR is 2.5-3.5 for patients with mechanical heart valves.BLOOD GAS, [id number] 11:30:00 Test Item Value Reference Range Interpretation [...] (test code = 1819) 60.0 % CALCIUM, [id number] 11:29:00 Test Item Value Reference Range Interpretation Comments CALCIUM IONIZED (BEAKER) (test 1.15 mmol/L 1.12-1.27 code = 698) PH, BLOOD (BEAKER) (test code = 7.52 1810) POCT-GLUCOSE [id number] 11:22:00 Test Item Value Reference Range Interpretation Comments POC-GLUCOSE METER 202 mg/dL 70-110 H TESTED AT [facility] 6720 (BEAKER) (test code = [place] 1538) [address] [id number] 10:07:00 Test Item Value Reference Range Interpretation Comments FIBRINOGEN LEVEL (BEAKER) (test 222 mg/dl 225-434 L code = 658) HEMOGLOBIN AND [id number] 09:58:00 Test Item Value Reference Range Interpretation Comments HEMOGLOBIN (BEAKER) (test code = 8.8 GM/DL 13.7-17.5 L 410) HEMATOCRIT (BEAKER) (test code = 25.4 % 40.1-51.0 L 411) TROPONIN [id number] 09:11:00 Test Item Value Reference Range Interpretation [...] Serra MDReport Verified Date/Time: 07/08/2018 08:52:14 ReadingLocation: [facility] B1 [id number] Ortho Consult Reading Room LACTIC ACID, ARTERIAL, WHOLE [id number] 08:43:00 Test Item Value Reference Range Interpretation Comments LACTATE BLOOD ARTERIAL (2) 1.1 mmol/L 0.5-2.2 (BEAKER) (test code = 2874) Effective 02/25/2016: Units/Reference Range ChangeNew: 0.5-2.2 mmol/L Previous: 5-20 mg/[id number] 08:12:00 Test Item Value Reference Range Interpretation Comments POTASSIUM (BEAKER) (test code = 3.9 meq/L 3.5-5.1 379) [id number] 08:12:00 Test Item Value Reference Range Interpretation Comments MAGNESIUM (BEAKER) (test code = 1.8 mg/dL 1.6-2.6 627) [id number] 08:12:00 Test Item Value Reference Range Interpretation Comments PHOSPHORUS (BEAKER) (test code = 2.2 mg/dL 2.3-4.7 L 604) [id number] 08:12:00 Test Item Value Reference Range Interpretation Comments SODIUM (BEAKER) (test code = 381) 134 meq/L 136-145 L HEMOGLOBIN AND [id number] 07:56:00 Test Item Value Reference Range Interpretation Comments HEMOGLOBIN (BEAKER) (test code = 8.9 GM/DL 13.7-17.5 L 410) HEMATOCRIT (BEAKER) (test code = 25.7 % 40.1-51.0 L 411) PH, [id number] 07:55:00 Test Item Value Reference Range Interpretation Comments PH ARTERIAL (BEAKER) (test code = 383) 7.63 7.35-7.45 HH CALCIUM, [id number] 07:53:00 Test Item Value Reference Range Interpretation Comments CALCIUM IONIZED (BEAKER) (test 1.06 mmol/L 1.12-1.27 L code = 698) PH, BLOOD (BEAKER) (test code = 7.63 1810) POCT-GLUCOSE [id number] 07:42:00 Test Item Value Reference Range Interpretation Comments POC-GLUCOSE METER 190 mg/dL 70-110 H TESTED AT [facility] 6720 (BEAKER) (test code = [facility] 1538) [id number] FIBRIN SOLUBLE [id number] 07:40:00 Test Item Value Reference Range Interpretation Comments FIBRIN SOLUBLE MONOMER (BEAKER) Negative (test code = 1416) HEMOGLOBIN AND [id number] 06:23:00 Test Item Value Reference Range Interpretation [...] 0.0 % 0.0-5.0 code = 1414) CALCIUM, [id number] 05:19:00 Test Item Value Reference Range Interpretation Comments CALCIUM IONIZED (BEAKER) (test 1.28 mmol/L 1.12-1.27 H code = 698) PH, BLOOD (BEAKER) (test code = 7.40 1810) [id number] 04:51:00 Test Item Value Reference Range Interpretation Comments MAGNESIUM (BEAKER) (test code = 2.0 mg/dL 1.6-2.6 627) BASIC METABOLIC [id number] 04:51:00 Test Item Value Reference Range Interpretation [...] DIALYSIS PATIEN TS. Specimen slightly ictericHEPATIC FUNCTION [id number] 04:51:00 Test Item Value Reference Range Interpretation [...] = 34 U/L 6-55 347) Specimen slightly [id number]-[id number] 04:45:00 Test Item Value Reference Range Interpretation [...] 22.5-36.0 (BEAKER) (test code = 760) PROTHROMBIN [id number] 04:41:00 Test Item Value Reference Range Interpretation Comments PROTIME (BEAKER) (test code = 18.7 seconds 11.7-14.7 H 759) INR (BEAKER) (test code = 370) 1.6 <=5.9 RECOMMENDED COUMADIN/WARFARIN INR THERAPY RANGESSTANDARD DOSE: 2.0 - 3.0 Includes: PROPHYLAXIS forvenous thrombosis, systemic embolization; TREATMENT for venous thrombosis and/or pulmonary embolus.HIGH RISK: Target INR is 2.5-3.5 for patients with mechanical heart valves.LACTIC ACID, VENOUS, WHOLE [id number] 04:34:00 Test Item Value Reference Range Interpretation Comments LACTATE BLOOD VENOUS (2) (BEAKER) 2.6 mmol/L 0.5-2.2 H (test code = 2872) Effective 02/25/2016: Units/Reference Range ChangeNew: 0.5-2.2 mmol/L Previous: 5-20 mg/dLBLOOD GAS, [id number] 04:19:00 Test Item Value Reference Range Interpretation [...] code = 1819) 100.0 % HEMOGLOBIN AND [id number] 02:16:00 Test Item Value Reference Range Interpretation Comments HEMOGLOBIN (BEAKER) (test code = 7.9 GM/DL 13.7-17.5 L 410) HEMATOCRIT (BEAKER) (test code = 22.4 % 40.1-51.0 L 411) [id number] 00:24:00 Test Item Value Reference Range Interpretation Comments POTASSIUM (BEAKER) (test code = 4.1 meq/L 3.5-5.1 379) CALCIUM, [id number] 00:22:00 Test Item Value Reference Range Interpretation Comments CALCIUM IONIZED (BEAKER) (test 1.09 mmol/L 1.12-1.27 L code = 698) PH, BLOOD (BEAKER) (test code = 7.44 1810) HEMOGLOBIN AND [id number] 00:16:00 Test Item Value Reference Range Interpretation Comments HEMOGLOBIN (BEAKER) (test code = 8.1 GM/DL 13.7-17.5 L 410) HEMATOCRIT (BEAKER) (test code = 23.8 % 40.1-51.0 L 411) HEMOGLOBIN AND [id number] 22:26:00 Test Item Value Reference Range Interpretation Comments HEMOGLOBIN (BEAKER) (test code = 8.1 GM/DL 13.7-17.5 L 410) HEMATOCRIT (BEAKER) (test code = 23.7 % 40.1-51.0 L 411) POCT-GLUCOSE [id number] 22:10:00 Test Item Value Reference Range Interpretation Comments POC-GLUCOSE METER 257 mg/dL 70-110 H TESTED AT [facility] 6720 (BEAKER) (test code = [place] 1538) [address] THROMBOELASTOGRAPH (TEG)2018-07-07 21:16:00 Test Item Value Reference [...] (test 0.0 % 0.0-5.0 code = 1414) [id number] 21:02:00 Test Item Value Reference Range Interpretation Comments POTASSIUM (BEAKER) (test code = 4.1 meq/L 3.5-5.1 379) [id number] 21:02:00 Test Item Value Reference Range Interpretation Comments MAGNESIUM (BEAKER) (test code = 1.7 mg/dL 1.6-2.6 627) [id number] 21:02:00 Test Item Value Reference Range Interpretation Comments PHOSPHORUS (BEAKER) (test code = 4.3 mg/dL 2.3-4.7 604) [id number] 21:02:00 Test Item Value Reference Range Interpretation Comments SODIUM (BEAKER) (test code = 381) 138 meq/L 136-145 CALCIUM, [id number] 20:36:00 Test Item Value Reference Range Interpretation Comments CALCIUM IONIZED (BEAKER) (test 0.98 mmol/L 1.12-1.27 L code = 698) PH, BLOOD (BEAKER) (test code = 7.34 1810) PH, [id number] 20:36:00 Test Item Value Reference Range Interpretation Comments PH ARTERIAL (BEAKER) (test code = 383) 7.34 7.35-7.45 L HEMOGLOBIN AND [id number] 20:30:00 Test Item Value Reference Range Interpretation Comments HEMOGLOBIN (BEAKER) (test code = 7.8 GM/DL 13.7-17.5 L 410) HEMATOCRIT (BEAKER) (test code = 22.8 % 40.1-51.0 L 411) RAD, CHEST, 1 VIEW, NON [id number] 19:08:00Reason for exam:->s/p dialysis catheterShould this be [...] MDReport Verified Date/Time: 07/07/2018 19:08:34 Reading Location: [address] Consult Reading Room ANG, VISCERAL [id number] 18:27:00from ercpFINAL REPORT Exam: Visceral arteriogram Clinical [...] MDReport Verified Date/Time: 07/07/2018 18:27:51 Reading Location: [facility] Radiology Reading Room HEMOGLOBIN AND [id number] 18:25:00 Test Item Value Reference Range Interpretation Comments HEMOGLOBIN (BEAKER) (test code = 7.6 GM/DL 13.7-17.5 L 410) HEMATOCRIT (BEAKER) (test code = 22.8 % 40.1-51.0 L 411) TROPONIN [id number] 18:16:00 Test Item Value Reference Range Interpretation Comments TROPONIN I (BEAKER) (test code = 0.26 ng/mL 0.00-0.03 397) Troponin I (TnI) levels [...] acute neurological disease, and persistent tachyarrhythmia.BASIC METABOLIC [id number] 17:33:00 Test Item Value Reference Range Interpretation [...] S NOT APPLICABLE FOR DIALYSIS PATIEN TS. [id number] 17:32:00 Test Item Value Reference Range Interpretation Comments MAGNESIUM (BEAKER) (test code = 1.7 mg/dL 1.6-2.6 627) POCT-GLUCOSE [id number] 17:29:00 Test Item Value Reference Range Interpretation Comments POC-GLUCOSE METER 283 mg/dL 70-110 H TESTED AT [facility] 6720 (BEAKER) (test code = [facility] 1538) [address] SODIUM, RANDOM [id number] 17:20:00 Test Item Value Reference Range Interpretation Comments SODIUM URINE (BEAKER) (test code = < meq/L 243) Reference Range: No NormalsFIBRIN SOLUBLE [id number] 17:20:00 Test Item Value Reference Range Interpretation Comments FIBRIN SOLUBLE MONOMER (BEAKER) Negative (test code = 1416) ANG, ARTERIAL EMBOLIZATION FOR [id number] 17:15:00Reason for exam:->s/p ERCP with bleedFINAL REPORT History: Upper GI bleed, active bleeding by recent endoscopy. PROCEDURE: Following informed written consent, the patient's right femoral area was prepped and draped in the usual sterile manner. 2% lidocaine was given locally for anesthesia. No conscious sedation wasadministered. Access was gained to the right common femoral artery and a 5 [place] sheath was placed.A 5 [place] Alcantar B catheter was placed over a wire into the abdominal aorta and used to carefully select and perform celiac and superior mesenteric arteriograms. With the catheter parked in origin of the superior mesenteric artery, coaxial technique was utilized to advance a 3 [place] microcatheter over a wire and into a proximal branch of the places replaced right hepatic artery which appears to be agastroduodenal vessel. Subselective arteriography was performed. The 3 [place] microcatheter was further advanced into a distal [...] removed and hemostasis achieved using a 5 [place] mynx closure device. Overall, the patient tolerated [...] as (Ka,r): 3073 mGy Signed: Felicitas Alvarez MDReport Verified Date/Time: 07/07/2018 17:15:21 Reading Location: [place] [id number] [facility] Body Reading Room 05:15 PMCREATININE, RANDOM [id number] 17:14:00 Test Item Value Reference Range Interpretation Comments CREATININE URINE (BEAKER) (test 68.4 mg/dL code = 375) Reference Range: No NormalsPROTEIN, RANDOM [id number] 17:14:00 Test Item Value Reference Range Interpretation Comments PROTEIN, URINE (BEAKER) (test code = 33 mg/dL 0-14 H 1569) [id number] 16:58:00 Test Item Value Reference Range Interpretation Comments POTASSIUM (BEAKER) (test code = 4.2 meq/L 3.5-5.1 379) URINALYSIS WITH MICROSCOPIC IF [id number] 16:43:00 Test Item Value Reference Range Interpretation [...] 463) SOURCE(BEAKER) (test code = 2795) URINALYSIS [id number] 16:43:00 Test Item Value Reference Range Interpretation Comments RBC UA (BEAKER) (test code = 519) 1 /HPF WBC UA (BEAKER) (test code = 520) 5 /HPF MUCUS (BEAKER) (test code = 1574) Rare SQUAMOUS EPITHELIAL (BEAKER) (test 1 /HPF code = 516) HEMOGLOBIN AND [id number] 16:37:00 Test Item Value Reference Range Interpretation Comments HEMOGLOBIN (BEAKER) (test code = 8.1 GM/DL 13.7-17.5 L 410) HEMATOCRIT (BEAKER) (test code = 24.6 % 40.1-51.0 L 411) CALCIUM, [id number] 16:23:00 Test Item Value Reference Range Interpretation Comments CALCIUM IONIZED (BEAKER) (test 0.91 mmol/L 1.12-1.27 L code = 698) PH, BLOOD (BEAKER) (test code = 7.30 1810) BASIC METABOLIC [id number] 15:27:00 Test Item Value Reference Range Interpretation [...] S NOT APPLICABLE FOR DIALYSIS PATIEN TS. [id number] 15:26:00 Test Item Value Reference Range Interpretation Comments PHOSPHORUS (BEAKER) (test code = 4.5 mg/dL 2.3-4.7 604) [id number] 15:26:00 Test Item Value Reference Range Interpretation Comments MAGNESIUM (BEAKER) (test code = 1.6 mg/dL 1.6-2.6 627) BASIC METABOLIC [id number] 15:26:00 Test Item Value Reference Range Interpretation [...] DIALYSIS PATIEN TS. LACTIC ACID, ARTERIAL, WHOLE [id number] 15:20:00 Test Item Value Reference Range Interpretation Comments LACTATE BLOOD ARTERIAL (2) 9.1 mmol/L 0.5-2.2 H (BEAKER) (test code = 2874) Effective 02/25/2016: Units/Reference Range ChangeNew: 0.5-2.2 mmol/L Previous: 5-20 mg/[id number] 15:14:00 Test Item Value Reference Range Interpretation Comments FIBRINOGEN LEVEL (BEAKER) (test 158 mg/dl 225-434 L code = 658) [id number] 15:10:00 Test Item Value Reference Range Interpretation [...] 2.5-3.5 for patients with mechanical heart valves.PROTHROMBIN TIME/[id number] 15:09:00 Test Item Value Reference Range Interpretation Comments PROTIME (BEAKER) (test code = 22.1 seconds 11.7-14.7 H 759) INR (BEAKER) (test code = 370) 1.9 <=5.9 RECOMMENDED COUMADIN/WARFARIN INR THERAPY RANGESSTANDARD DOSE: 2.0 - 3.0 Includes: PROPHYLAXIS forvenous thrombosis, systemic embolization; TREATMENT for venous thrombosis and/or pulmonary embolus.HIGH RISK: Target INR is 2.5-3.5 for patients with mechanical heart valves.PROTHROMBIN TIME/[id number] 15:08:00 Test Item Value Reference Range Interpretation [...] (BEAKER) (test code = 2801) BLOOD GAS, [id number] 14:58:00 Test Item Value Reference Range Interpretation [...] code = 1819) 40.0 % HEMOGLOBIN AND [id number] 14:56:00 Test Item Value Reference Range Interpretation Comments HEMOGLOBIN (BEAKER) (test code = 8.6 GM/DL 13.7-17.5 L 410) HEMATOCRIT (BEAKER) (test code = 25.7 % 40.1-51.0 L 411) FIBRIN SOLUBLE [id number] 13:26:00 Test Item Value Reference Range Interpretation [...] (test 0.0 % 0.0-5.0 code = 1414) [id number] 12:02:00 Test Item Value Reference Range Interpretation Comments PARTIAL THROMBOPLASTIN TIME 35.0 seconds 22.5-36.0 (BEAKER) (test code = 760) PROTHROMBIN TIME/[id number] 12:01:00 Test Item Value Reference Range Interpretation Comments PROTIME (BEAKER) (test code = 20.2 seconds 11.7-14.7 H 759) INR (BEAKER) (test code = 370) 1.7 <=5.9 RECOMMENDED COUMADIN/WARFARIN INR THERAPY RANGESSTANDARD DOSE: 2.0 - 3.0 Includes: PROPHYLAXIS forvenous thrombosis, systemic embolization; TREATMENT for venous thrombosis and/or pulmonary embolus.HIGH RISK: Target INR is 2.5-3.5 for patients with mechanical heart valves.FL, [id number] 11:51:00Reason for exam:->bleeding s/p ercpFINAL REPORT ERCP, [...] MDReport Verified Date/Time: 07/07/2018 11:51:44 Reading Location: [address] Radiology Reading Room Electronically signedby: EMILE SHIRLEY M.D. on 07/07/2018 11:51 AMLACTIC ACID, ARTERIAL, WHOLE [id number] 11:48:00 Test Item Value Reference Range Interpretation Comments LACTATE BLOOD ARTERIAL (2) 7.4 mmol/L 0.5-2.2 H (BEAKER) (test code = 2874) Effective 02/25/2016: Units/Reference Range ChangeNew: 0.5-2.2 mmol/L Previous: 5-20 mg/[id number] 11:36:00 Test Item Value Reference Range Interpretation [...] of thrombosis is within 95-100% range.BLOOD GAS, [id number] 11:35:00 Test Item Value Reference Range Interpretation [...] code = 1819) 40.0 % HEMOGLOBIN AND [id number] 11:27:00 Test Item Value Reference Range Interpretation Comments HEMOGLOBIN (BEAKER) (test code = 9.2 GM/DL 13.7-17.5 L 410) HEMATOCRIT (BEAKER) (test code = 28.2 % 40.1-51.0 L 411) POCT-GLUCOSE [id number] 11:22:00 Test Item Value Reference Range Interpretation Comments POC-GLUCOSE METER 240 mg/dL 70-110 H TESTED AT [facility] 6720 (BEAKER) (test code = [place] 1538) [address] RAD, CHEST, 1 VIEW, NON [id number] 10:14:00Reason for exam:- >intubationShould this be performed [...] No pneumothorax is seen. Signed: Aakash Howe Verified Date/Time: 07/07/2018 10:14:17 Reading Location: [facility] Radiology Reading Room BASIC METABOLIC PANEL 2018-07-07 [...] S NOT APPLICABLE FOR DIALYSIS PATIEN TS. [id number] 09:38:00 Test Item Value Reference Range Interpretation Comments FIBRINOGEN LEVEL (BEAKER) (test 146 mg/dl 225-434 L code = 658) HEMOGLOBIN AND [id number] 09:19:00 Test Item Value Reference Range Interpretation Comments HEMOGLOBIN (BEAKER) (test code = 7.7 GM/DL 13.7-17.5 L 410) HEMATOCRIT (BEAKER) (test code = 23.4 % 40.1-51.0 L 411) BLOOD GAS, [id number] 09:18:00 Test Item Value Reference Range Interpretation [...] (BEAKER) (test code = 1819) 40.0 % [id number] 08:27:00 Test Item Value Reference Range Interpretation Comments PARTIAL THROMBOPLASTIN TIME 37.9 seconds 22.5-36.0 H (BEAKER) (test code = 760) PROTHROMBIN [id number] 08:26:00 Test Item Value Reference Range Interpretation Comments PROTIME (BEAKER) (test code = 23.5 seconds 11.7-14.7 H 759) INR (BEAKER) (test code = 370) 2.1 <=5.9 RECOMMENDED COUMADIN/WARFARIN INR THERAPY RANGESSTANDARD DOSE: 2.0 - 3.0 Includes: PROPHYLAXIS forvenous thrombosis, systemic embolization; TREATMENT for venous thrombosis and/or pulmonary embolus.HIGH RISK: Target INR is 2.5-3.5 for patients with mechanical heart valves.HEMOGLOBIN AND [id number] 08:08:00 Test Item Value Reference Range Interpretation Comments HEMOGLOBIN (BEAKER) (test code = 7.7 GM/DL 13.7-17.5 L 410) HEMATOCRIT (BEAKER) (test code = 23.3 % 40.1-51.0 L 411) BASIC METABOLIC [id number] 06:32:00 Test Item Value Reference Range Interpretation [...] APPLICABLE FOR DIALYSIS PATIEN TS. Specimen slightly [id number] 06:21:00 Test Item Value Reference Range Interpretation Comments MAGNESIUM (BEAKER) (test code = 2.0 mg/dL 1.6-2.6 627) HEPATIC FUNCTION [id number] 06:21:00 Test Item Value Reference Range Interpretation [...] 347) Specimen slightly ictericLACTIC ACID, VENOUS, WHOLE [id number] 06:16:00 Test Item Value Reference Range Interpretation Comments LACTATE BLOOD VENOUS (2) (BEAKER) 2.2 mmol/L 0.5-2.2 (test code = 2872) Effective 02/25/2016: Units/Reference Range ChangeNew: 0.5-2.2 mmol/L Previous: 5-20 mg/dLSpecimen slightly ictericHEMOGLOBIN AND [id number] 06:06:00 Test Item Value Reference Range Interpretation Comments HEMOGLOBIN (BEAKER) (test code = 10.2 GM/DL 13.7-17.5 L 410) HEMATOCRIT (BEAKER) (test code = 31.7 % 40.1-51.0 L 411) LACTIC ACID, VENOUS, WHOLE [id number] 03:14:00 Test Item Value Reference Range Interpretation Comments LACTATE BLOOD VENOUS (2) (BEAKER) 1.3 mmol/L 0.5-2.2 (test code = 2872) Effective 02/25/2016: Units/Reference Range ChangeNew: 0.5-2.2 mmol/L Previous: 5-20 mg/dLSpecimen slightly ictericHEMOGLOBIN AND [id number] 03:08:00 Test Item Value Reference Range Interpretation Comments HEMOGLOBIN (BEAKER) (test code = 11.2 GM/DL 13.7-17.5 L 410) HEMATOCRIT (BEAKER) (test code = 34.8 % 40.1-51.0 L 411) HEMOGLOBIN AND [id number] 00:22:00 Test Item Value Reference Range Interpretation Comments HEMOGLOBIN (BEAKER) (test code = 6.8 GM/DL 13.7-17.5 L 410) HEMATOCRIT (BEAKER) (test code = 21.6 % 40.1-51.0 L 411) LACTIC ACID, VENOUS, WHOLE [id number] 23:30:00 Test Item Value Reference Range Interpretation Comments LACTATE BLOOD VENOUS 1.2 mmol/L 0.5-2.2 Specime n slightly (2) (BEAKER) (test hemolyzed code = 2872) Effective 02/25/2016: Units/Reference Range ChangeNew: 0.5-2.2 mmol/L Previous: 5-20 mg/dLSpecimen moderately [id number] 23:08:00 Test Item Value Reference Range Interpretation Comments PROCALCITONIN (BEAKER) (test code 0.48 ng/mL <0.05 H = 3036) SEPSIS RISK (ng/mL)Low: 0.05-0.50Intermediate: 0.51-2.00High: >=2.01RAD, CHEST, 1 VIEW, NON [id number] 23:07:00Reason for exam:->abd painShould this be performed [...] MDReport Verified Date/Time: 07/06/2018 23:07:59 Reading Location: [facility] B1 [id number] Consult Reading Room [id number] 22:48:00 Test Item Value Reference Range Interpretation Comments LIPASE (BEAKER) (test code = 749) > U/L 8-78 H Specimen moderately [id number] 22:42:00 Test Item Value Reference Range Interpretation Comments MAGNESIUM (BEAKER) (test code = 1.9 mg/dL 1.6-2.6 627) COMPREHENSIVE METABOLIC [id number] 22:42:00 Test Item Value Reference Range Interpretation [...] Specimen moderately ictericCBC W/PLT COUNT & AUTO [id number] 22:23:00 Test Item Value Reference Range Interpretation [...] 0-1 PERCENT (BEAKER) (test code = 2801) [id number] 22:20:00 Test Item Value Reference Range Interpretation Comments PARTIAL THROMBOPLASTIN TIME 31.2 seconds 22.5-36.0 (BEAKER) (test code = 760) PROTHROMBIN [id number] 22:19:00 Test Item Value Reference Range Interpretation Comments PROTIME (BEAKER) (test code = 17.0 seconds 11.7-14.7 H 759) INR (BEAKER) (test code = 370) 1.4 <=5.9 RECOMMENDED COUMADIN/WARFARIN INR THERAPY RANGESSTANDARD DOSE: 2.0 - 3.0 Includes: PROPHYLAXIS forvenous thrombosis, systemic embolization; TREATMENT for venous thrombosis and/or pulmonary embolus.HIGH RISK: Target INR is 2.5-3.5 for patients with mechanical heart valves.POCT-LACTIC ACID, [id number] 22:15:00 Test Item Value Reference Range Interpretation Comments POC-LACTIC ACID, 1.3 mmol/L 0.9-1.7 TESTED AT [facility] 6720 VENOUS (BEAKER) (test [facility] Janis [place] code = 2805) [address] POCT-BLOOD GASES, [id number] 22:15:00 Test Item Value Reference Range Interpretation Comments TEMP, CELSIUS-POC 37.0 (BEAKER) (test code = 1834) FIO2-POC (BEAKER) TESTED AT [facility] 6720 (test code = 1835) ALEX Issa [facility] [place] [address] PH, VENOUS-POC 7.388 7.320-7.420 (BEAKER) (test code = 1842) PCO2, VENOUS-POC 52.9 mm Hg 41.0-51.0 H (BEAKER) (test code = 1843) PO2, VENOUS-POC 31.0 mm Hg 25.0-40.0 (BEAKER) (test code = 1844) SO2, VENOUS-POC 57.0 % 40.0-70.0 (BEAKER) (test code = 1845) HCO3, VENOUS-POC 31.9 meq/L 21.0-29.0 H (BEAKER) (test code = 1846) BASE EXCESS, 7.0 meq/L -2.0-3.0 H VENOUS-POC (AKER) (test code = 1847) [id number] 22:15:00 Test Item Value Reference Range Interpretation Comments POC-SODIUM ([facility]) 136 meq/L 135-148 TESTED [place] [address] (test code = 1542) [facility] [address] [id number] 22:15:00 Test Item Value Reference Range Interpretation Comments POC-POTASSIUM 4.3 meq/L 3.6-5.5 TESTED AT [place] [address] ([facility]) (test code [facility] [address] = 1540) [id number] 22:15:00 Test Item Value Reference Range Interpretation Comments POC-GLUCOSE ([facility]) 147 mg/dL 70-110 H TESTED AT [place] [address] (test code = 1855) [facility] [address] POCT-CALCIUM [id number] 22:15:00 Test Item Value Reference Range Interpretation Comments POC-CALCIUM IONIZED 1.10 mmol/L 1.12-1.27 L TESTED [place] [address] ([facility]) (test code = [facility] 1536) [address] [id number] 22:15:00 Test Item Value Reference Range Interpretation Comments POC-HEMATOCRIT 38 % 40-50 L TESTED AT [place] [address] ([facility]) (test code = [facility] [address] 3294) [id number] 22:15:00 Test Item Value Reference Range Interpretation Comments POC-HEMOGLOBIN 12.9 g/dL 13.0-16.8 L TESTED AT [place] [address] ([facility]) (test code [facility] = 1856) [address]YVPED[place] AT [address] [address] POCT-GLUCOSE [id number] 21:38:00 Test Item Value Reference Range Interpretation Comments POC-GLUCOSE METER 138 mg/dL 70-110 H TESTED AT [place] [address] ([facility]) (test code = [facility] 1538) [address] POCT-GLUCOSE [id number] 19:35:00 Test Item Value Reference Range Interpretation Comments POC-GLUCOSE METER 116 mg/dL 70-110 H TESTED AT [facility] 6720 (BEAKER) (test code = [place] 1538) [address] PROTHROMBIN [id number] 18:18:00 Test Item Value Reference Range Interpretation Comments PROTIME (BEAKER) (test code = 15.5 seconds 11.7-14.7 H 759) INR (BEAKER) (test code = 370) 1.2 <=5.9 RECOMMENDED COUMADIN/WARFARIN INR THERAPY RANGESSTANDARD DOSE: 2.0 - 3.0 Includes: PROPHYLAXIS forvenous thrombosis, systemic embolization; TREATMENT for venous thrombosis and/or pulmonary embolus.HIGH RISK: Target INR is 2.5-3.5 for patients with mechanical heart valves.[id number] 18:18:00 Test Item Value Reference Range Interpretation Comments PARTIAL THROMBOPLASTIN TIME 36.5 seconds 22.5-36.0 H (BEAKER) (test code = 760) CBC W/PLT COUNT & AUTO [id number] 18:11:00 Test Item Value Reference Range Interpretation Comments WHITE BLOOD CELL COUNT (BEAKER) 9.6 K/ L 3.5-10.5 (test code = 775) RED BLOOD CELL COUNT (BEAKER) 6.06 M/ L 4.63-6.08 (test code = 761) HEMOGLOBIN (BEAKER) (test code = 16.4 GM/DL 13.7-17.5 410) HEMATOCRIT (BEAKER) (test code = 51.8 % 40.1-51.0 H [...] PERCENT (BEAKER) (test code = 2801) [place], [id number] 17:27:00Reason for exam:->cbd stonesFINAL REPORT Fluoroscopy. History: Intraoperative. Findings: Radiologist was not present for the exam. Fluoroscopy was not performed by the undersigned. Please see operative/endoscopy report for details. Fluoroscopy Time: 2.5 min.One spot image was saved. IMPRESSION:Intraoperative fluoroscopy. Please see operative report for details. Signed: Steve Hernandez MDRcassandra Verified Date/Time: 07/06/2018 17:27:55 Reading Location: [facility] Diagnostic Imaging Reading Room - [facility] [phone] POCT-GLUCOSE [id number] 12:00:00 Test Item Value Reference Range Interpretation Comments POC-GLUCOSE METER 100 mg/dL 70-110 TESTED AT [facility] [address] [facility] (test code = [place] 1538) [address] POCT-GLUCOSE [id number] 08:03:00 Test Item Value Reference Range Interpretation Comments POC-GLUCOSE METER 116 mg/dL 70-110 H TESTED AT [facility] [address] (BEAKER) (test code = [place] 1538) [address] [id number] 07:04:00 Test Item Value Reference Range Interpretation Comments MAGNESIUM (BEAKER) (test code = 2.3 mg/dL 1.6-2.6 627) BASIC METABOLIC [id number] 07:04:00 Test Item Value Reference Range Interpretation [...] DIALYSIS PATIEN TS. Specimen moderately ictericHEPATIC FUNCTION [id number] 07:04:00 Test Item Value Reference Range Interpretation [...] 57 U/L 6-55 H 347) Specimen moderately [id number] 03:15:00 Test Item Value Reference Range Interpretation Comments MAGNESIUM (BEAKER) 2.5 mg/dL 1.6-2.6 Specimen slightly (test code = 627) hemolyzed BASIC METABOLIC [id number] 03:15:00 Test Item Value Reference Range Interpretation [...] DIALYSIS PATIEN TS. Specimen moderately ictericHEPATIC FUNCTION [id number] 03:15:00 Test Item Value Reference Range Interpretation [...] code = 347) hemolyzed Specimen moderately ictericPOCT-GLUCOSE [id number] 22:02:00 Test Item Value Reference Range Interpretation Comments POC-GLUCOSE METER 140 mg/dL 70-110 H TESTED AT [place] [address] ([facility]) (test code = [facility] 1538) [address] POCT-GLUCOSE [id number] 16:27:00 Test Item Value Reference Range Interpretation Comments POC-GLUCOSE METER 103 mg/dL 70-110 TESTED AT [place] [address] ([facility]) (test code = [facility] 1538) [address] POCT-GLUCOSE [id number] 11:55:00 Test Item Value Reference Range Interpretation Comments POC-GLUCOSE METER 123 mg/dL 70-110 H TESTED AT [place] [address] ([facility]) (test code = [facility] 1538) [address] POCT-GLUCOSE [id number] 08:13:00 Test Item Value Reference Range Interpretation Comments POC-GLUCOSE METER 116 mg/dL 70-110 H TESTED AT [place] [address] ([facility]) (test code = [facility] 1538) [address] [id number] 07:53:00 Test Item Value Reference Range Interpretation Comments MAGNESIUM (BEAKER) (test code = 1.9 mg/dL 1.6-2.6 627) BASIC METABOLIC [id number] 07:53:00 Test Item Value Reference Range Interpretation [...] DIALYSIS PATIEN TS. Specimen slightly ictericHEPATIC FUNCTION [id number] 07:53:00 Test Item Value Reference Range Interpretation [...] 12 U/L 6-55 347) Specimen slightly ictericPOCT-GLUCOSE [id number] 20:53:00 Test Item Value Reference Range Interpretation Comments POC-GLUCOSE METER 168 mg/dL 70-110 H TESTED AT [facility] 6720 (BEAKER) (test code = [place] 1538) [address] [id number] 17:12:00 Test Item Value Reference Range Interpretation Comments MAGNESIUM (BEAKER) (test code = 2.1 mg/dL 1.6-2.6 627) BASIC METABOLIC [id number] 17:12:00 Test Item Value Reference Range Interpretation Comments SODIUM (BEAKER) 140 meq/L 136-145 (test code = 381) POTASSIUM (BEAKER) 3.6 meq/L 3.5-5.1 (test code = 379) CHLORIDE (BEAKER) 96 meq/L 98-107 L (test code = 382) CO2 (BEAKER) (test 35 meq/L 22-29 H code = 355) BLOOD UREA NITROGEN 22 mg/dL 7-21 H ([facility]) (test code = 354) CREATININE ([facility]) 1.35 mg/dL 0.57-1.25 H (test code = 358) GLUCOSE RANDOM 148 mg/dL 70-105 H ([facility]) (test code = 652) CALCIUM ([facility]) 9.9 mg/dL 8.4-10.2 (test code = 697) EGFR ([facility]) (test 55 mL/min/1.73 ESTIMA KIMBER GFR IS code = 1092) sq m NOT ACCURATE CREATININE CLEARANCE IN PREDICTING GLOMERULAR FILTRATION RATE . ESTIMATED GFR I S NOT APPLICABLE FOR DIALYSIS PATIEN TS. POCT-GLUCOSE [id number] 17:00:00 Test Item Value Reference Range Interpretation Comments POC-GLUCOSE METER 138 mg/dL 70-110 H TESTED AT [place] [address] ([facility]) (test code = [facility] Janis [facility] 1538) [address] POCT-GLUCOSE [id number] 12:09:00 Test Item Value Reference Range Interpretation Comments POC-GLUCOSE METER 111 mg/dL 70-110 H TESTED AT [place] [address] ([facility]) (test code = [facility] 1538) [address] POCT-GLUCOSE [id number] 07:30:00 Test Item Value Reference Range Interpretation Comments POC-GLUCOSE METER 102 mg/dL 70-110 TESTED AT [place] [address] ([facility]) (test code = [facility] 1538) [address] U/S, ABDOMINAL, [id number] 07:27:00Please perform with doppler to evaluate for [...] MDReport Verified Date/Time: 07/04/2018 07:27:18 Reading Location: [address] Ultrasound Reading Room [id number] 07:12:00 Test Item Value Reference Range Interpretation Comments MAGNESIUM (BEAKER) 1.8 mg/dL 1.6-2.6 Specimen slightly (test code = 627) hemolyzed BASIC METABOLIC [id number] 07:12:00 Test Item Value Reference Range Interpretation [...] APPLICABLE FOR DIALYSIS PATIEN TS. HEPATIC FUNCTION [id number] 07:12:00 Test Item Value Reference Range Interpretation [...] slightly (test code = 347) hemolyzed PROTHROMBIN [id number] 07:11:00 Test Item Value Reference Range Interpretation Comments PROTIME (BEAKER) (test code = 16.4 seconds 11.7-14.7 H 759) INR (BEAKER) (test code = 370) 1.3 <=5.9 RECOMMENDED COUMADIN/WARFARIN INR THERAPY RANGESSTANDARD DOSE: 2.0 - 3.0 Includes: PROPHYLAXIS forvenous thrombosis, systemic embolization; TREATMENT for venous thrombosis and/or pulmonary embolus.HIGH RISK: Target INR is 2.5-3.5 for patients with mechanical heart valves.POCT-GLUCOSE [id number] 20:11:00 Test Item Value Reference Range Interpretation Comments POC-GLUCOSE METER 156 mg/dL 70-110 H TESTED AT [facility] (test code = [place] [facility] 1538) [address] [id number] 17:51:00 Test Item Value Reference Range Interpretation Comments MAGNESIUM (BEAKER) (test code = 1.9 mg/dL 1.6-2.6 627) BASIC METABOLIC [id number] 17:51:00 Test Item Value Reference Range Interpretation [...] NOT APPLICABLE FOR DIALYSIS PATIEN TS. POCT-GLUCOSE [id number] 16:12:00 Test Item Value Reference Range Interpretation Comments POC-GLUCOSE METER 89 mg/dL 70-110 TESTED AT [place] [address] [facility] (test code = [place] [facility] [address] 1538) U/S, DUPLEX, [id number] 15:18:00Please perform with doppler to evaluate for [...] MDReport Verified Date/Time: 07/03/2018 15:18:31 Reading Location: [address] Ultrasound Reading Room POCT-GLUCOSE [id number] 12:46:00 Test Item Value Reference Range Interpretation Comments POC-GLUCOSE METER 102 mg/dL 70-110 TESTED AT [facility] 67[address] ([facility]) (test code = [place] 1538) [address] [id number] 07:10:00 Test Item Value Reference Range Interpretation Comments PHOSPHORUS (ASIM) (test code = 3.7 mg/dL 2.3-4.7 604) [id number] 07:10:00 Test Item Value Reference Range Interpretation Comments MAGNESIUM (BEAKER) (test code = 1.8 mg/dL 1.6-2.6 627) BASIC METABOLIC [id number] 07:10:00 Test Item Value Reference Range Interpretation [...] APPLICABLE FOR DIALYSIS PATIEN TS. HEPATIC FUNCTION [id number] 07:10:00 Test Item Value Reference Range Interpretation [...] code = 14 U/L 6-55 347) POCT-GLUCOSE [id number] 07:02:00 Test Item Value Reference Range Interpretation Comments POC-GLUCOSE METER 112 mg/dL 70-110 H TESTED AT [facility] 6720 (BEAKER) (test code = [place] 1538) [address] POCT-GLUCOSE [id number] 21:51:00 Test Item Value Reference Range Interpretation Comments POC-GLUCOSE METER 147 mg/dL 70-110 H TESTED AT [facility] 6720 (BEAKER) (test code = [facility] 1538) [address] [id number] 20:05:00 Test Item Value Reference Range Interpretation Comments MAGNESIUM (BEAKER) 2.1 mg/dL 1.6-2.6 Specimen slightly (test code = 627) hemolyzed BASIC METABOLIC [id number] 20:05:00 Test Item Value Reference Range Interpretation [...] NOT APPLICABLE FOR DIALYSIS PATIEN TS. POCT-GLUCOSE [id number] 17:05:00 Test Item Value Reference Range Interpretation Comments POC-GLUCOSE METER 111 mg/dL 70-110 H TESTED AT [facility] 6720 (BEAKER) (test code = [facility] 1538) [address] POCT-GLUCOSE [id number] 11:34:00 Test Item Value Reference Range Interpretation Comments POC-GLUCOSE METER 142 mg/dL 70-110 H TESTED AT [facility] 67[facility] (test code = [facility] 1538) [address] POCT-GLUCOSE [id number] 07:43:00 Test Item Value Reference Range Interpretation Comments POC-GLUCOSE METER 110 mg/dL 70-110 TESTED AT [facility] 6720 (BEAKER) (test code = [place] 1538) [address] [id number] 07:13:00 Test Item Value Reference Range Interpretation Comments PHOSPHORUS (BEAKER) (test code = 4.3 mg/dL 2.3-4.7 604) [id number] 07:13:00 Test Item Value Reference Range Interpretation Comments MAGNESIUM (BEAKER) (test code = 2.0 mg/dL 1.6-2.6 627) BASIC METABOLIC [id number] 07:13:00 Test Item Value Reference Range Interpretation [...] APPLICABLE FOR DIALYSIS PATIEN TS. HEPATIC FUNCTION [id number] 07:13:00 Test Item Value Reference Range Interpretation [...] (test code = 11 U/L 6-55 347) [id number] 07:13:00 Test Item Value Reference Range Interpretation Comments LIPASE (ASIM) (test code = 749) 21 U/L 8-78 B-TYPE NATRIURETIC FACTOR (BNP)2018-07-02 07:13:00 Test Item Value Reference Range Interpretation Comments B-TYPE NATRIURETIC PEPTIDE (VANESSAAKER) 689 pg/mL 0-100 H (test code = 700) POCT-GLUCOSE [id number] 22:15:00 Test Item Value Reference Range Interpretation Comments POC-GLUCOSE METER 124 mg/dL 70-110 H TESTED AT [place] [address] ([facility]) (test code = [facility] 1538) [address] RAD, CHEST, 1 VIEW, NON [id number] 18:03:00Reason for exam:->chest painShould this be performed at the bedside?->YesFINAL REPORT AP chest HISTORY: Chest pain COMPARISON: None IMPRESSION:Status post median sternotomy. No acute skeletal findings. Cardiomegaly. Diffuse interstitial edema. Moderate right effusion. No pneumothorax. Signed: Emile Shirley MDReport Verified Date/Time: 07/01/2018 18:03:03 Reading Location: [address] Body Reading Room POCT-GLUCOSE [id number] 17:04:00 Test Item Value Reference Range Interpretation Comments POC-GLUCOSE METER 146 mg/dL 70-110 H TESTED AT [place] [address] ([facility]) (test code = [facility] 1538) [address] POCT-GLUCOSE [id number] 11:52:00 Test Item Value Reference Range Interpretation Comments POC-GLUCOSE METER 163 mg/dL 70-110 H TESTED AT [place] [address] ([facility]) (test code = [facility] 1538) [address] HEMOGLOBIN [id number] 08:13:00 Test Item Value Reference Range Interpretation Comments HEMOGLOBIN A1C (BEAKER) (test code = 7.1 % 4.3-6.1 H 368) POCT-GLUCOSE [id number] 08:00:00 Test Item Value Reference Range Interpretation Comments POC-GLUCOSE METER 113 mg/dL 70-110 H TESTED AT [facility] 6720 (BEAKER) (test code = [place] 1538) [address] TROPONIN [id number] 02:30:00 Test Item Value Reference Range Interpretation Comments TROPONIN I (BEAKER) (test code = 0.03 ng/mL 0.00-0.03 397) [...] acute neurological disease, and persistent tachyarrhythmia.BASIC METABOLIC [id number] 02:24:00 Test Item Value Reference Range Interpretation [...] APPLICABLE FOR DIALYSIS PATIEN TS. HEPATIC FUNCTION [id number] 02:24:00 Test Item Value Reference Range Interpretation [...] Specimen slightly (test code = 347) hemolyzed [id number] 02:23:00 Test Item Value Reference Range Interpretation Comments PHOSPHORUS (BEAKER) (test code = 4.4 mg/dL 2.3-4.7 604) [id number] 02:23:00 Test Item Value Reference Range Interpretation Comments MAGNESIUM (BEAKER) (test code = 1.8 mg/dL 1.6-2.6 627) BASIC METABOLIC [id number] 02:23:00 Test Item Value Reference Range Interpretation [...] NOT APPLICABLE FOR DIALYSIS PATIEN TS. LIPID [id number] 02:23:00 Test Item Value Reference Range Interpretation Comments TRIGLYCERIDES ([facility]) (test code = 62 mg/dL 540) CHOLESTEROL ([facility]) (test code = 145 mg/dL 631) HDL CHOLESTEROL ([facility]) (test code 30 mg/dL = 976) LDL CHOLESTEROL CALCULATED ([facility]) 103 mg/dL (test code = 633) Triglyceride Reference Range: Low Risk <150 Borderline 150-199 High Risk 200-499 Very High Risk >=500Cholesterol Reference Range: Low Risk <200 Borderline 200-239 High Risk >240HDL Cholesterol Reference Range: Low Risk >=60 High Risk <40LDL Cholesterol Reference Range: Optimal <100 Near Optimal 100-129 Borderline 130-159 High 160-189 Very High >=190POCT-GLUCOSE [id number] 23:01:00 Test Item Value Reference Range Interpretation Comments POC-GLUCOSE METER 143 mg/dL 70-110 H TESTED AT [facility] 67[address] ([facility]) (test code = [place] 1538) [address] TSH/FREE T4 IF [id number] 18:47:00 Test Item Value Reference Range Interpretation Comments THYROID STIMULATING HORMONE 3.50 uIU/mL 0.35-4.94 ([facility]) (test code = 772) TROPONIN [id number] 18:35:00 Test Item Value Reference Range Interpretation Comments TROPONIN I ([facility]) (test code = 0.01 ng/mL 0.00-0.03 397) [...] acidosis, acute neurological disease, and persistent tachyarrhythmia.POCT-GLUCOSE [id number] 18:18:00 Test Item Value Reference Range Interpretation Comments POC-GLUCOSE METER 149 mg/dL 70-110 H TESTED AT [place] [address] ([facility]) (test code = [place] 1538) [address] HEMOGLOBIN AND [id number] 18:08:00 Test Item Value Reference Range Interpretation Comments HEMOGLOBIN ([facility]) (test code = 15.8 GM/DL 13.7-17.5 410) HEMATOCRIT ([facility]) (test code = 49.9 % 40.1-51.0 411) POCT-GLUCOSE [id number] 15:23:00 Test Item Value Reference Range Interpretation Comments POC-GLUCOSE METER 158 mg/dL 70-110 H TESTED AT [place] [address] ([facility]) (test code = [place] 1538) [address]
[2021-02-01 15:23] LABS: Absolute Lymphocytes (CBC) 1.7 K/uL (0.7-4.9); Basophils % 0.8 % (0-1.3); Hematocrit 46.9 % (39.6-49.0); Lymphocytes % 26.2 % (15.3-44.8); MPV 7.8 fL (7.6-11.3); RBC Red Blood Cell Count 5.48 M/uL (4.33-5.43)
[2021-02-01 15:33] LABS: Protime INR 1.1
[2021-02-01] MEDS ORDERED: MORPHINE 4 MG/ML SYR ONE ×2 (15:33→17:28)
[2021-02-01] MEDS ORDERED: NA CHLORIDE 0.9% 1,000 ML ONE (15:34)
[2021-02-01] MEDS ORDERED: ONDANSETRON 4 MG/2 ML VIAL ONE (15:34)
[2021-02-01] MEDS ORDERED: TETANUS & DIPHTHERIA TOX,ADULT 0.5 ML VIAL ONE (15:34)
[2021-02-01 15:40] LABS: Potassium 3.8 mmol/L (3.5-5.1)
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
--- NOTE | 2021-02-01 16:31 | RAD REPORT ---
EXAM DESCRIPTION: RAD - Knee Left 3 View - 02/01/2021 3:57 pm CLINICAL HISTORY: PAIN COMPARISON: No comparisons FINDINGS: No acute fracture or dislocation. Mild soft tissue swelling is seen in the region of the p atellar tendon.
--- NOTE | 2021-02-01 16:32 | RAD REPORT ---
EXAM DESCRIPTION: RAD - Knee Right 3 View - 02/01/2021 3:57 pm CLINICAL HISTORY: PAIN COMPARISON: No comparisons FINDINGS: No acute fracture or dislocation seen. Small superficial skin mary medialy. Trace joint fluid.
--- NOTE | 2021-02-01 16:33 | RAD REPORT ---
EXAM DESCRIPTION: RAD - Forearm Left - 02/01/2021 3:57 pm CLINICAL HISTORY: PAIN COMPARISON: No comparisons FINDINGS: Intraarticular fracture of the distal radius is present. Minimal ulnar styloid avulsion se en. Moderate soft tissue swelling along the dorsum of the forearm.
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
[2021-02-01 19:42] VITALS: TEMP 98.6
[2021-02-01 20:13] VITALS: BP 138/104; O2SAT 97
== END 2021-02-01 18:36 | disposition home or self-care (01) ==
LOC: ER 14:57
PROC: 2W3DX1Z Immobilization of Left Lower Arm using Splint (ICD-10-PCS; principal; 2021-02-01)
DX: S52.502A Unspecified fracture of the lower end of left radius, initial encounter for closed fracture (principal); S80.02XA Contusion of left knee, initial encounter; S80.01XA Contusion of right knee, initial encounter; V03.90XA Pedestrian on foot injured in collision with car, pick-up truck or van, unspecified whether traffic or nontraffic accident, initial encounter; Z23 Encounter for immunization; Z95.1 Presence of aortocoronary bypass graft; Z91.013 Allergy to seafood; Z91.048 Other nonmedicinal substance allergy status; I10 Essential (primary) hypertension
CPT/HCPCS: 36415; 70450; 70486; 71250; 72125; 76377; 80048; 85025; 85610; 85730; 86850; 86870; 86900; 86901; 90471; 90714; 96361; 96374; 96375; 99285; J2405; J7030

== ENCOUNTER 2022-02-28 11:43 | Inpatient (IN) | payer SELFPAY ==
--- OUTSIDE RECORDS SUMMARY | 2022-02-28 11:53 | XMS REPORT | Continuity of Care Document ---
:1960 Author Organization [facility] t Address [address] [place] [address] Dr. Fernandez [address] [place] [address] Care Team Providers Name Role Phone Chandler Del Angel MD Attending Clinician Chandler DEL ANGEL Attending Clinician Unavailable Doctor Unassigned, Name Attending Clinician Unavailable MIGUEL QUESADA Attending Clinician Unavailable Kari CORRAL Attending Clinician Unavailable MIGUEL QUESADA Admitting Clinician Unavailable Quinn SCHAEFER Admitting Clinician Unavailable Problems Condition Condition Condition Status Onset Resolution Last Treating Co mments Source Name Details Category Date Date Treatment Clinician Date No known No known Disease NPI:1 83 active active 1946105 problems problems Allergies, Adverse Reactions, Alerts Allergy Allergy Status Severity Reaction(s) Onset Inactive Treating Comm ents Source Name Type Date Date Clinician IODINE Drug Active Unknown-Cmnt 2017-10 NPI: 183 AND Class 11-20 [id number] IODIDE 00:00: CONTAINI 00 NG PRODUCTS Iodine Propensi Active Unknown - 2017-10 NPI:1 83 And ty to See comments 11-20 1318 781 Iodide adverse 00:00: Containi reaction 00 ng s Products NO KNOWN Drug Active NPI:183 ALLERGIE Class [id number] S Social History Social Habit Start Date Stop Date Quantity Comments Source History SDOH NPI:[id number] Alcohol Std Drinks History SDOH NPI:[id number] 81 Alcohol Binge Exposure to Not sure NPI:[id number] 1 SARS-CoV-2 (event) Tobacco use and 2021-02-11 2021-02-11 Never used NPI:[id number] exposure 00:00:00 00:00:00 Alcohol intake 2021-02-11 2021-02-11 Lifetime NPI:[id number] 00:00:00 00:00:00 non-drinker (finding) History SDOH 2021-02-11 2021-02-11 1 NPI:[id number] 81 Alcohol Frequency 00:00:00 00:00:00 Sex [birth year] At [birth year] NPI:[id number] 00:00:00 00:00:00 Smoking Status Start Date Stop Date Source Unknown if ever smoked NPI:[id number] 43597 Never smoker Medications Ordered Filled Start Stop Current Ordering Indication Dosage Frequency Signature Comments Components Source Medication Medication Date Date Medication? Clinician (SIG) Name Name acetaminoph Yes TAKE 2 NPI: 183 en-codeine 4-11 TABLETS BY 131 8781 300-30 mg 00:00: MOUTH tablet 00 EVERY 4 TO 6 HOURS NEEDED FOR PAIN acetaminoph Yes TAKE 2 NPI: 183 en-codeine 4-11 TABLETS BY 131 8781 300-30 mg 00:00: MOUTH tablet 00 EVERY 4 TO 6 HOURS NEEDED FOR PAIN Procedures Procedure Date / Time Performed Performing Clinician Sourc e CONSENT/REFUSAL FOR 2021-02-11 18:51:21 Doctor Unassigned, No COSTUME DESIGNER I:[id number] DIAGNOSIS AND TREATMENT Name Encounters Start End Encounter Admission Attending Care Care Encounter Source Date/Time Date/Time Type Type Clinicians Facility Department ID 2021-02-11 2021-02-[address] [facility] [id number] NPI:183 14:00:00 14:15:00 [id number] Surgical [id number] Special [id number] [place] 2021-02-11 2021-02-11 Outpatient R [facility] [id number] NPI:183 14:00:00 14:00:00 [place] [id number] 1 2021-02-11 2021-02-11 Orders Doctor POLK [id number] NPI:183 00:00:00 00:00:00 Only UnassignedBINTA [id number] [place] [facility] 4.2.7.2.686 [id number] Results Test Description Test Time Test Comments Results Result Sourc e Comments FL, ERCP 2018-09-24 Reason for FINAL REPORT PATIENT 17:04:00 exam:->Abdomina ID: [id number] ERCP, l pain 09/24/2018 Clinical History: Abdominal [...] MDReport Verified Date/Time: 09/24/2018 17:04:26 Reading Location: [facility] [id number] Ortho Consult Reading Room C METABOLIC [...] NOT 1092) ACCURATE CRE ATININE CLEARANCE IN UT EDICTING GLOMERULAR FILT RATION RATE. ESTIMATED GFR IS NOT APPLICABLE FOR DIALYSIS PATIENTS. CBC W/PLT COUNT & AUTO [id number] 14:29:00 Test Item Value Reference Range Interpretation [...] PERCENT (BEAKER) (test code = 2801) POCT-GLUCOSE [id number] 11:57:00 Test Item Value Reference Range Interpretation Comments POC-GLUCOSE METER 142 mg/dL 70-110 H TESTED AT [facility] 6720 (BEAKER) (test code = GENEVIEVE [place] 1538) [address] POCT-GLUCOSE [id number] 11:09:00 Test Item Value Reference Range Interpretation Comments POC-GLUCOSE METER 135 mg/dL 70-110 H TESTED AT [place] [address] ([facility]) (test code = GENEVIEVE Bruce [facility] 1538) [address] POCT-GLUCOSE [id number] 05:59:00 Test Item Value Reference Range Interpretation Comments POC-GLUCOSE METER 118 mg/dL 70-110 H TESTED AT [place] [address] ([facility]) (test code = GENEVIEVE Bruce [facility] 1538) 235[address] POCT-GLUCOSE [id number] 01:15:00 Test Item Value Reference Range Interpretation Comments POC-GLUCOSE METER 107 mg/dL 70-110 TESTED AT [place] [address] ([facility]) (test code = GENEVIEVE Bruce [facility] 1538) [address] POCT-GLUCOSE [id number] 21:13:00 Test Item Value Reference Range Interpretation Comments POC-GLUCOSE METER 139 mg/dL 70-110 H TESTED AT [place] [address] ([facility]) (test code = GENEVIEVE Bruce [facility] 1538) 510[address] POCT-GLUCOSE [id number] 18:29:00 Test Item Value Reference Range Interpretation Comments POC-GLUCOSE METER 139 mg/dL 70-110 H TESTED AT [place] [address] ([facility]) (test code = GENEVIEVE Bruce [facility] 1538) [address] POCT-GLUCOSE [id number] 13:09:00 Test Item Value Reference Range Interpretation Comments POC-GLUCOSE METER 100 mg/dL 70-110 TESTED AT [place] [address] ([facility]) (test code = GENEVIEVE Bruce [facility] 1538) [address] BASIC METABOLIC [id number] 08:28:00 Test Item Value Reference Range Interpretation [...] S NOT APPLICABLE FOR DIALYSIS PATIEN TS. [id number] 08:23:00 Test Item Value Reference Range Interpretation Comments MAGNESIUM (BEAKER) (test code = 2.5 mg/dL 1.6-2.6 627) URINALYSIS W/ REFLEX URINE [id number] 07:38:00 Test Item Value Reference Range Interpretation [...] code = 516) SOURCE(BEAKER) (test code = 1705) POCT-GLUCOSE [id number] 07:08:00 Test Item Value Reference Range Interpretation Comments POC-GLUCOSE METER 127 mg/dL 70-110 H TESTED AT [facility] 6720 (BEAKER) (test code = GENEVIEVE [place] 1538) [address] CBC W/PLT COUNT & AUTO [id number] 07:02:00 Test Item Value Reference Range Interpretation [...] [facility]) (test code = 2801) PROTHROMBIN [id number] 06:52:00 Test Item Value Reference Range Interpretation Comments PROTIME (BEAKER) (test code = 15.7 seconds 11.7-14.7 H 759) INR ([facility]) (test code = 370) 1.3 <=5.9 RECOMMENDED COUMADIN/WARFARIN INR THERAPY RANGESSTANDARD DOSE: 2.0 - 3.0 Includes: PROPHYLAXIS forvenous thrombosis, systemic embolization; TREATMENT for venous thrombosis and/or pulmonary embolus.HIGH RISK: Target INR is 2.5-3.5 for patients with mechanical heart valves.POCT-GLUCOSE [id number] 22:38:00 Test Item Value Reference Range Interpretation Comments POC-GLUCOSE METER 136 mg/dL 70-110 H TESTED AT [place] [address] ([facility]) (test code = GENEVIEVE Bruce [facility] 1538) [address] POCT-GLUCOSE [id number] 18:00:00 Test Item Value Reference Range Interpretation Comments POC-GLUCOSE METER 124 mg/dL 70-110 H TESTED AT [place] [address] ([facility]) (test code = VIVEKSANCHO Bruce [facility] 1538) [address] POCT-GLUCOSE [id number] 12:37:00 Test Item Value Reference Range Interpretation Comments POC-GLUCOSE METER 174 mg/dL 70-110 H TESTED AT [place] [address] ([facility]) (test code = VIVEKSANCHO Bruce [facility] 1538) [address] POCT-GLUCOSE [id number] 08:22:00 Test Item Value Reference Range Interpretation Comments POC-GLUCOSE METER 109 mg/dL 70-110 TESTED AT [place] [address] ([facility]) (test code = VIVEKSANCHO Bruce [facility] 1538) [address] BASIC METABOLIC [id number] 06:30:00 Test Item Value Reference Range Interpretation [...] S NOT APPLICABLE FOR DIALYSIS PATIEN TS. [id number] 06:25:00 Test Item Value Reference Range Interpretation Comments MAGNESIUM (BEAKER) (test code = 2.2 mg/dL 1.6-2.6 627) CBC W/PLT COUNT & AUTO [id number] 05:58:00 Test Item Value Reference Range Interpretation [...] PERCENT (BEAKER) (test code = 2801) POCT-GLUCOSE [id number] 23:58:00 Test Item Value Reference Range Interpretation Comments POC-GLUCOSE METER 130 mg/dL 70-110 H [facility] [place] [address] [facility] ([facility] = [facility] 1538) [address] OCCULT BLOOD, [id number] 21:20:00 Test Item Value Reference Range Interpretation Comments FECAL OCCULT BLOOD (BEAKER) (test Negative Negative code = 618) RETICULOCYTE [id number] 17:55:00 Test Item Value Reference Range Interpretation Comments RETICULOCYTE COUNT PCT (BEAKER) (test 0.8 % 0.5-1.8 code = 575) POCT-GLUCOSE [id number] 17:43:00 Test Item Value Reference Range Interpretation Comments POC-GLUCOSE METER 108 mg/dL 70-110 TESTED AT [place] [address] [facility] (test code = [facility] Janis [facility] 1538) [address] [id number] 17:11:00 Test Item Value Reference Range Interpretation Comments FERRITIN (BEAKER) (test code = 361) 44 ng/mL 5-275 IRON, TIBC, % SAT. (WITHOUT FERRITIN)2018-09-21 16:52:00 Test Item Value Reference Range Interpretation Comments IRON (BEAKER) (test code = 547) 46 ug/dL 40-160 TOTAL IRON BINDING CAPACITY 330 ug/dL 250-450 (BEAKER) (test code = 769) IRON % SATURATION (2) (BEAKER) 14 % 20-55 L (test code = 2590) POCT-GLUCOSE [id number] 11:43:00 Test Item Value Reference Range Interpretation Comments POC-GLUCOSE METER 112 mg/dL 70-110 H TESTED AT [place] [address] ([facility]) (test code = [facility] 1538) [address] U/S, ABDOMINAL, [id number] 08:34:00Reason for exam:->acute renal failure and recent [...] MDReport Verified Date/Time: 09/21/2018 08:34:21 Reading Location: [address] Ultrasound Reading Room POCT- GLUCOSE [id number] 06:34:00 Test Item Value Reference Range Interpretation Comments POC-GLUCOSE METER 83 mg/dL 70-110 TESTED AT [facility] 6720 ([facility]) (test code = [facility] Janis [facility] [address] 1538) BASIC METABOLIC [id number] 06:14:00 Test Item Value Reference Range Interpretation [...] 697) EGFR (BEAKER) (test 18 mL/min/1.73 ESTIMA KIBMER GFR IS code = 1092) sq m NOT ACCURATE CREATININE CLEARANCE IN PREDICTING GLOMERULAR FILTRATION RATE . ESTIMATED GFR I S NOT APPLICABLE FOR DIALYSIS PATILIZ TS. [id number] 06:10:00 Test Item Value Reference Range Interpretation Comments MAGNESIUM (BEAKER) (test code = 2.4 mg/dL 1.6-2.6 627) CBC W/PLT COUNT & AUTO [id number] 05:16:00 Test Item Value Reference Range Interpretation [...] code = 2801) URINALYSIS WITH MICROSCOPIC IF [id number] 05:08:00 Test Item Value Reference Range Interpretation [...] 463) SOURCE(BEAKER) (test code = 2795) URINALYSIS [id number] 05:08:00 Test Item Value Reference Range Interpretation [...] (test Rare code = 1584) CREATININE, RANDOM [id number] 05:03:00 Test Item Value Reference Range Interpretation Comments CREATININE URINE (BEAKER) (test 95.1 mg/dL code = 375) Reference Range: No NormalsSODIUM, RANDOM [id number] 05:03:00 Test Item Value Reference Range Interpretation Comments SODIUM URINE (BEAKER) (test code = 45 meq/L 243) Reference Range: No NormalsUREA NITROGEN, RANDOM [id number] 05:03:00 Test Item Value Reference Range Interpretation Comments UREA NITROGEN URINE (BEAKER) (test 494 mg/dL code = 538) Reference Range: No NormalsCOMPREHENSIVE METABOLIC [id number] 00:16:00 Test Item Value Reference Range Interpretation [...] 90 pg/mL 0-100 (test code = 700) [id number] 00:11:00 Test Item Value Reference Range Interpretation Comments LIPASE (BEAKER) (test code = 749) 94 U/L 8-78 H [id number] 00:11:00 Test Item Value Reference Range Interpretation Comments AMYLASE (BEAKER) (test code = 349) 71 U/L 25-125 LACTIC ACID, VENOUS, WHOLE [id number] 00:04:00 Test Item Value Reference Range Interpretation Comments LACTATE BLOOD VENOUS 0.8 mmol/L 0.5-2.2 Specime n slightly (2) (BEAKER) (test hemolyzed code = 9732) CBC W/PLT COUNT & AUTO [id number] 23:48:00 Test Item Value Reference Range Interpretation [...] (BEAKER) (test code = 2801) HEMOGLOBIN AND [id number] 13:29:00 Test Item Value Reference Range Interpretation Comments HEMOGLOBIN (BEAKER) (test code = 9.4 GM/DL 13.7-17.5 L 410) HEMATOCRIT (BEAKER) (test code = 29.2 % 40.1-51.0 L 411) POCT-GLUCOSE [id number] 12:50:00 Test Item Value Reference Range Interpretation Comments POC-GLUCOSE METER 188 mg/dL 70-110 H TESTED AT [facility] 67 ([facility]) (test code = GENEVIEVE Bruce [place] 1538) [address] BASIC METABOLIC [id number] 10:11:00 Test Item Value Reference Range Interpretation [...] 358) GLUCOSE RANDOM 125 mg/dL 70-105 H (AKER) (test code = 652) CALCIUM (BEAKER) 9.1 mg/dL 8.4-10.2 (test code = 697) EGFR (BEAKER) (test 39 mL/min/1.73 ESTIMA KIMBER GFR IS code = 1092) sq m NOT ACCURATE CREATININE CLEARANCE IN PREDICTING GLOMERULAR FILTRATION RATE . ESTIMATED GFR I S NOT APPLICABLE FOR DIALYSIS PATIEN TS. Specimen slightly ictericPOCT-GLUCOSE [id number] 09:55:00 Test Item Value Reference Range Interpretation Comments POC-GLUCOSE METER 149 mg/dL 70-110 H TESTED AT [place] [address] ([facility]) (test code = GENEVIEVE Bruce [facility] 1538) [address] PROTHROMBIN [id number] 05:39:00 Test Item Value Reference Range Interpretation Comments PROTIME ([facility]) (test code = 15.8 seconds 11.7-14.7 H 759) INR ([facility]) (test code = 370) 1.3 <=5.9 RECOMMENDED COUMADIN/WARFARIN INR THERAPY RANGESSTANDARD DOSE: 2.0 - 3.0 Includes: PROPHYLAXIS forvenous thrombosis, systemic embolization; TREATMENT for venous thrombosis and/or pulmonary embolus.HIGH RISK: Target INR is 2.5-3.5 for patients with mechanical heart valves.[id number] 05:31:00 Test Item Value Reference Range Interpretation Comments MAGNESIUM (BEAKER) (test code = 1.5 mg/dL 1.6-2.6 L 627) HEPATIC FUNCTION [id number] 05:31:00 Test Item Value Reference Range Interpretation [...] 6-55 347) CBC W/PLT COUNT & AUTO [id number] 05:15:00 Test Item Value Reference Range Interpretation [...] PERCENT (BEAKER) (test code = 2801) POCT-GLUCOSE [id number] 21:20:00 Test Item Value Reference Range Interpretation Comments POC-GLUCOSE METER 145 mg/dL 70-110 H TESTED AT [place] [address] (BEAKER) (test code = [facility] Janis [facility] 1538) [address] POCT-GLUCOSE [id number] 18:26:00 Test Item Value Reference Range Interpretation Comments POC-GLUCOSE METER 145 mg/dL 70-110 H [facility] AT [place] [address] ([facility] (test code = [facility] 1538) [address] HEMOGLOBIN AND [id number] 18:06:00 Test Item Value Reference Range Interpretation Comments HEMOGLOBIN (BEAKER) (test code = 9.2 GM/DL 13.7-17.5 L 410) HEMATOCRIT (BEAKER) (test code = 28.3 % 40.1-51.0 L 411) CBC W/PLT COUNT & AUTO [id number] 13:13:00 Test Item Value Reference Range Interpretation [...] (test code = 1+ few 965) POCT-GLUCOSE [id number] 12:54:00 Test Item Value Reference Range Interpretation Comments POC-GLUCOSE METER 146 mg/dL 70-110 H TESTED AT [facility] 6720 (BEAKER) (test code = GENEVIEVE [place] 1538) [address] POCT-GLUCOSE [id number] 09:05:00 Test Item Value Reference Range Interpretation Comments POC-GLUCOSE METER 143 mg/dL 70-110 H TESTED AT [facility] 6720 (BEAKER) (test code = GEN[place]IEVE [place] 1538) [address] [id number] 07:26:00 Test Item Value Reference Range Interpretation Comments MAGNESIUM (BEAKER) (test code = 1.8 mg/dL 1.6-2.6 627) BASIC METABOLIC [id number] 07:26:00 Test Item Value Reference Range Interpretation [...] APPLICABLE FOR DIALYSIS PATIEN TS. HEPATIC FUNCTION [id number] 07:26:00 Test Item Value Reference Range Interpretation [...] code = 25 U/L 6-55 347) CALCIUM, [id number] 07:09:00 Test Item Value Reference Range Interpretation Comments CALCIUM IONIZED (BEAKER) (test 1.08 mmol/L 1.12-1.27 L code = 698) PH, BLOOD (BEAKER) (test code = 7.52 1810) PROTHROMBIN [id number] 07:07:00 Test Item Value Reference Range Interpretation Comments PROTIME (BEAKER) (test code = 14.9 seconds 11.7-14.7 H 759) INR (BEAKER) (test code = 370) 1.2 <=5.9 RECOMMENDED COUMADIN/WARFARIN INR THERAPY RANGESSTANDARD DOSE: 2.0 - 3.0 Includes: PROPHYLAXIS forvenous thrombosis, systemic embolization; TREATMENT for venous thrombosis and/or pulmonary embolus.HIGH RISK: Target INR is 2.5-3.5 for patients with mechanical heart valves.POCT-GLUCOSE [id number] 21:30:00 Test Item Value Reference Range Interpretation Comments POC-GLUCOSE METER 133 mg/dL 70-110 H TESTED AT [facility] 6720 ([place]) (test code = VIVEKSANCHO [place] 1538) [address] POCT-GLUCOSE [id number] 17:52:00 Test Item Value Reference Range Interpretation Comments POC-GLUCOSE METER 270 mg/dL 70-110 H TESTED AT [place] [address] (BEAKER) (test code = GENEVIEVE Bruce [facility] 1538) [address] HEMOGLOBIN AND [id number] 16:27:00 Test Item Value Reference Range Interpretation Comments HEMOGLOBIN (BEAKER) (test code = 8.9 GM/DL 13.7-17.5 L 410) HEMATOCRIT (BEAKER) (test code = 27.7 % 40.1-51.0 L 411) POCT-GLUCOSE [id number] 08:55:00 Test Item Value Reference Range Interpretation Comments POC-GLUCOSE METER 132 mg/dL 70-110 H TESTED AT [place] [address] (BEAKER) (test code = GENEVIEVE Bruce [facility] 1538) [address] POCT-GLUCOSE [id number] 08:49:00 Test Item Value Reference Range Interpretation Comments POC-GLUCOSE METER 131 mg/dL 70-110 H [facility] AT [place] [address] [facility] (test code = GENEVIEVE Bruce [facility] 1538) [address] [id number] 04:20:00 Test Item Value Reference Range Interpretation Comments MAGNESIUM (BEAKER) (test code = 1.7 mg/dL 1.6-2.6 627) BASIC METABOLIC [id number] 04:20:00 Test Item Value Reference Range Interpretation [...] APPLICABLE FOR DIALYSIS PATIEN TS. HEPATIC FUNCTION [id number] 04:20:00 Test Item Value Reference Range Interpretation [...] 6-55 347) CBC W/PLT COUNT & AUTO [id number] 04:16:00 Test Item Value Reference Range Interpretation [...] 0-1 PERCENT (BEAKER) (test code = 2801) [id number] 04:06:00 Test Item Value Reference Range Interpretation [...] exclusion of thrombosis is within 95-100% range. [id number] 04:04:00 Test Item Value Reference Range Interpretation Comments FIBRINOGEN LEVEL (BEAKER) (test 426 mg/dl 225-434 code = 658) [id number] 04:04:00 Test Item Value Reference Range Interpretation [...] 2.5-3.5 for patients with mechanical heart valves.PLATELET [id number] 03:59:00 Test Item Value Reference Range Interpretation Comments PLATELET COUNT (BEAKER) (test 293 K/CU MM 150-450 code = 756) HEMOGLOBIN AND [id number] 03:59:00 Test Item Value Reference Range Interpretation Comments HEMOGLOBIN (BEAKER) (test code = 9.0 GM/DL 13.7-17.5 L 410) HEMATOCRIT (BEAKER) (test code = 28.6 % 40.1-51.0 L 411) POCT-GLUCOSE [id number] 22:54:00 Test Item Value Reference Range Interpretation Comments POC-GLUCOSE METER 169 mg/dL 70-110 H TESTED AT [facility] 67 (BEAKER) (test code = VIVEKSANCHO [place] 1538) [address] POCT-GLUCOSE [id number] 17:50:00 Test Item Value Reference Range Interpretation Comments POC-GLUCOSE METER 162 mg/dL 70-110 H TESTED AT [place] [address] ([facility] (test code = VIVE[facility]ANCHO Bruce [place] 1538) [address] HEMOGLOBIN AND [id number] 12:54:00 Test Item Value Reference Range Interpretation Comments HEMOGLOBIN (BEAKER) (test code = 8.9 GM/DL 13.7-17.5 L 410) HEMATOCRIT (BEAKER) (test code = 28.0 % 40.1-51.0 L 411) [id number] 06:09:00 Test Item Value Reference Range Interpretation Comments MAGNESIUM (BEAKER) (test code = 1.4 mg/dL 1.6-2.6 L 627) BASIC METABOLIC [id number] 06:09:00 Test Item Value Reference Range Interpretation [...] APPLICABLE FOR DIALYSIS PATIEN TS. HEPATIC FUNCTION [id number] 06:09:00 Test Item Value Reference Range Interpretation [...] code = 26 U/L 6-55 347) PROTHROMBIN [id number] 06:03:00 Test Item Value Reference Range Interpretation [...] (BEAKER) (test code = 2801) HEMOGLOBIN AND [id number] 18:54:00 Test Item Value Reference Range Interpretation Comments HEMOGLOBIN (BEAKER) (test code = 9.9 GM/DL 13.7-17.5 L 410) HEMATOCRIT (BEAKER) (test code = 32.6 % 40.1-51.0 L 411) BLOOD [id number] 18:00:00 Test Item Value Reference Range Interpretation Comments CULTURE (BEAKER) (test No growth in 5 days code = 1095) HEMOGLOBIN AND [id number] 16:03:00 Test Item Value Reference Range Interpretation Comments HEMOGLOBIN (BEAKER) (test code = 9.4 GM/DL 13.7-17.5 L 410) HEMATOCRIT (BEAKER) (test code = 28.9 % 40.1-51.0 L 411) CBC W/PLT COUNT & AUTO [id number] 09:17:00 Test Item Value Reference Range Interpretation [...] PERCENT (BEAKER) (test code = 2801) PROTHROMBIN [id number] 08:38:00 Test Item Value Reference Range Interpretation Comments PROTIME (BEAKER) (test code = 14.7 seconds 11.7-14.7 759) INR (BEAKER) (test code = 370) 1.2 <=5.9 RECOMMENDED COUMADIN/WARFARIN INR THERAPY RANGESSTANDARD DOSE: 2.0 - 3.0 Includes: PROPHYLAXIS forvenous thrombosis, systemic embolization; TREATMENT for venous thrombosis and/or pulmonary embolus.HIGH RISK: Target INR is 2.5-3.5 for patients with mechanical heart valves.BASIC METABOLIC [id number] 07:46:00 Test Item Value Reference Range Interpretation [...] NOT APPLICABLE FOR DIALYSIS PATIEN TS. PROTHROMBIN [id number] 06:45:00 Test Item Value Reference Range Interpretation Comments PROTIME (BEAKER) (test code = 14.5 seconds 11.7-14.7 759) INR (BEAKER) (test code = 370) 1.1 <=5.9 RECOMMENDED COUMADIN/WARFARIN INR THERAPY RANGESSTANDARD DOSE: 2.0 - 3.0 Includes: PROPHYLAXIS forvenous thrombosis, systemic embolization; TREATMENT for venous thrombosis and/or pulmonary embolus.HIGH RISK: Target INR is 2.5-3.5 for patients with mechanical heart valves.[id number] 05:11:00 Test Item Value Reference Range Interpretation Comments MAGNESIUM (BEAKER) 1.8 mg/dL 1.6-2.6 Specimen moderately (test code = 627) hemolyzed HEPATIC FUNCTION [id number] 05:11:00 Test Item Value Reference Range Interpretation [...] Specimen moderately (test code = 347) hemolyzed [id number] 06:06:00 Test Item Value Reference Range Interpretation Comments MAGNESIUM (BEAKER) (test code = 1.6 mg/dL 1.6-2.6 627) BASIC METABOLIC [id number] 06:06:00 Test Item Value Reference Range Interpretation [...] APPLICABLE FOR DIALYSIS PATIEN TS. HEPATIC FUNCTION [id number] 06:06:00 Test Item Value Reference Range Interpretation [...] code = 22 U/L 6-55 347) PROTHROMBIN [id number] 05:51:00 Test Item Value Reference Range Interpretation [...] (BEAKER) (test code = 2801) HEMOGLOBIN AND [id number] 00:16:00 Test Item Value Reference Range Interpretation Comments HEMOGLOBIN (BEAKER) (test code = 8.8 GM/DL 13.7-17.5 L 410) HEMATOCRIT (BEAKER) (test code = 27.1 % 40.1-51.0 L 411) HEMOGLOBIN AND [id number] 17:32:00 Test Item Value Reference Range Interpretation Comments HEMOGLOBIN (BEAKER) (test code = 8.8 GM/DL 13.7-17.5 L 410) HEMATOCRIT (BEAKER) (test code = 27.5 % 40.1-51.0 L 411) RAD, CHEST, 1 VIEW, NON [id number] 10:38:00Reason for exam:->HFShould this be performed at [...] MDReport Verified Date/Time: 07/18/2018 10:38:16 Reading Location: [facility] Radiology Reading Room Electronically signed by: GINA SPEARS M.D. on07/18/2018 10:38 AMHEMOGLOBIN AND [id number] 10:12:00 Test Item Value Reference Range Interpretation Comments HEMOGLOBIN (BEAKER) (test code = 7.8 GM/DL 13.7-17.5 L 410) HEMATOCRIT (BEAKER) (test code = 24.5 % 40.1-51.0 L 411) [id number] 04:04:00 Test Item Value Reference Range Interpretation Comments MAGNESIUM (BEAKER) (test code = 1.9 mg/dL 1.6-2.6 627) BASIC METABOLIC [id number] 04:04:00 Test Item Value Reference Range Interpretation [...] APPLICABLE FOR DIALYSIS PATIEN TS. HEPATIC FUNCTION [id number] 04:04:00 Test Item Value Reference Range Interpretation [...] code = 22 U/L 6-55 347) PROTHROMBIN TIME/[id number] 04:00:00 Test Item Value Reference Range Interpretation [...] (BEAKER) (test code = 2801) HEMOGLOBIN AND [id number] 00:32:00 Test Item Value Reference Range Interpretation Comments HEMOGLOBIN (BEAKER) (test code = 9.0 GM/DL 13.7-17.5 L 410) HEMATOCRIT (BEAKER) (test code = 27.8 % 40.1-51.0 L 411) [id number] 18:36:00 Test Item Value Reference Range Interpretation Comments MAGNESIUM (BEAKER) 2.2 mg/dL 1.6-2.6 Specimen slightly (test code = 627) hemolyzed [id number] 18:36:00 Test Item Value Reference Range Interpretation Comments POTASSIUM (BEAKER) 4.3 meq/L 3.5-5.1 Specimen slightly (test code = 379) hemolyzed FL, [id number] 18:08:00INTRA OP IMAGINGReason for exam:->abnormal imaging FINAL REPORT ERCP 1 view 07/17/2018 6:06 PM CLINICAL HISTORY: Instrument localization COMPARISON: None available IMPRESSION: Please correlate imaging report findings with the procedure note prepared by Dr. Santacruz, as an intra-procedure imaging consultation was not requested. Reported fluoroscopy time: 233.8 seconds. Signed: Farhad Meza MDReport Verified Date/Time: 07/17/2018 18:08:25 Reading Location: [facility] Radiology Reading Room HEMOGLOBIN AND [id number] 18:03:00 Test Item Value Reference Range Interpretation Comments HEMOGLOBIN (BEAKER) (test code = 9.2 GM/DL 13.7-17.5 L 410) HEMATOCRIT (BEAKER) (test code = 28.1 % 40.1-51.0 L 411) [id number] 09:33:00 Test Item Value Reference Range Interpretation Comments POTASSIUM (BEAKER) (test code = 3.4 meq/L 3.5-5.1 L 379) [id number] 09:33:00 Test Item Value Reference Range Interpretation Comments MAGNESIUM (BEAKER) (test code = 2.0 mg/dL 1.6-2.6 627) HEMOGLOBIN AND [id number] 09:20:00 Test Item Value Reference Range Interpretation Comments HEMOGLOBIN (BEAKER) (test code = 8.9 GM/DL 13.7-17.5 L 410) HEMATOCRIT (BEAKER) (test code = 26.9 % 40.1-51.0 L 411) PROTHROMBIN [id number] 06:45:00 Test Item Value Reference Range Interpretation Comments PROTIME (BEAKER) (test code = 16.9 seconds 11.7-14.7 H 759) INR (BEAKER) (test code = 370) 1.4 <=5.9 RECOMMENDED COUMADIN/WARFARIN INR THERAPY RANGESSTANDARD DOSE: 2.0 - 3.0 Includes: PROPHYLAXIS forvenous thrombosis, systemic embolization; TREATMENT for venous thrombosis and/or pulmonary embolus.HIGH RISK: Target INR is 2.5-3.5 for patients with mechanical heart valves.BASIC METABOLIC [id number] 03:44:00 Test Item Value Reference Range Interpretation [...] S NOT APPLICABLE FOR DIALYSIS PATIEN TS. [id number] 03:36:00 Test Item Value Reference Range Interpretation Comments MAGNESIUM (BEAKER) (test code = 2.3 mg/dL 1.6-2.6 627) HEPATIC FUNCTION [id number] 03:36:00 Test Item Value Reference Range Interpretation [...] 6-55 347) CBC W/PLT COUNT & AUTO [id number] 03:08:00 Test Item Value Reference Range Interpretation [...] (BEAKER) (test code = 2801) HEMOGLOBIN AND [id number] 00:43:00 Test Item Value Reference Range Interpretation Comments HEMOGLOBIN (BEAKER) (test code = 9.2 GM/DL 13.7-17.5 L 410) HEMATOCRIT (BEAKER) (test code = 27.6 % 40.1-51.0 L 411) [id number] 20:56:00 Test Item Value Reference Range Interpretation Comments POTASSIUM (BEAKER) (test code = 3.0 meq/L 3.5-5.1 L 379) [id number] 20:56:00 Test Item Value Reference Range Interpretation Comments MAGNESIUM (BEAKER) (test code = 1.7 mg/dL 1.6-2.6 627) HEMOGLOBIN AND [id number] 17:08:00 Test Item Value Reference Range Interpretation Comments HEMOGLOBIN (BEAKER) (test code = 9.3 GM/DL 13.7-17.5 L 410) HEMATOCRIT (BEAKER) (test code = 28.2 % 40.1-51.0 L 411) [id number] 08:36:00 Test Item Value Reference Range Interpretation Comments PHOSPHORUS (BEAKER) (test code = 2.9 mg/dL 2.3-4.7 604) HEMOGLOBIN AND [id number] 08:18:00 Test Item Value Reference Range Interpretation Comments HEMOGLOBIN (BEAKER) (test code = 8.7 GM/DL 13.7-17.5 L 410) HEMATOCRIT (BEAKER) (test code = 25.7 % 40.1-51.0 L 411) BASIC METABOLIC [id number] 05:58:00 Test Item Value Reference Range Interpretation [...] S NOT APPLICABLE FOR DIALYSIS PATIEN TS. [id number] 04:58:00 Test Item Value Reference Range Interpretation Comments MAGNESIUM (BEAKER) (test code = 1.3 mg/dL 1.6-2.6 L 627) HEPATIC FUNCTION [id number] 04:58:00 Test Item Value Reference Range Interpretation [...] (test code = 20 U/L 6-55 347) [id number] 04:40:00 Test Item Value Reference Range Interpretation [...] of thrombosis is within 95-100% range. PROTHROMBIN TIME/[id number] 04:37:00 Test Item Value Reference Range Interpretation [...] PERCENT (BEAKER) (test code = 2801) CALCIUM, [id number] 04:29:00 Test Item Value Reference Range Interpretation Comments CALCIUM IONIZED (BEAKER) (test 1.13 mmol/L 1.12-1.27 code = 698) PH, BLOOD (BEAKER) (test code = 7.42 1810) HEMOGLOBIN AND [id number] 04:29:00 Test Item Value Reference Range Interpretation Comments HEMOGLOBIN (BEAKER) (test code = 8.6 GM/DL 13.7-17.5 L 410) HEMATOCRIT (BEAKER) (test code = 25.4 % 40.1-51.0 L 411) POCT-GLUCOSE [id number] 04:18:00 Test Item Value Reference Range Interpretation Comments POC-GLUCOSE METER 116 mg/dL 70-110 H TESTED AT [place] [address] (BEAKER) (test code = [facility] Janis [facility] 1538) [address] HEMOGLOBIN AND [id number] 00:35:00 Test Item Value Reference Range Interpretation Comments HEMOGLOBIN (BEAKER) (test code = 8.7 GM/DL 13.7-17.5 L 410) HEMATOCRIT (BEAKER) (test code = 25.9 % 40.1-51.0 L 411) POCT-GLUCOSE [id number] 22:40:00 Test Item Value Reference Range Interpretation Comments POC-GLUCOSE METER 112 mg/dL 70-110 H TESTED AT [place] [address] (BEAKER) (test code = [facility] 1538) [address] HEMOGLOBIN AND [id number] 19:57:00 Test Item Value Reference Range Interpretation Comments HEMOGLOBIN (BEAKER) (test code = 9.1 GM/DL 13.7-17.5 L 410) HEMATOCRIT (BEAKER) (test code = 26.2 % 40.1-51.0 L 411) POCT-GLUCOSE [id number] 17:38:00 Test Item Value Reference Range Interpretation Comments POC-GLUCOSE METER 151 mg/dL 70-110 H TESTED AT [place] [address] (BEAKER) (test code = [facility] 1538) [address] [id number] 17:13:00 Test Item Value Reference Range Interpretation Comments POTASSIUM (BEAKER) (test code = 3.7 meq/L 3.5-5.1 379) HEMOGLOBIN AND [id number] 16:43:00 Test Item Value Reference Range Interpretation Comments HEMOGLOBIN (BEAKER) (test code = 9.2 GM/DL 13.7-17.5 L 410) HEMATOCRIT (BEAKER) (test code = 26.8 % 40.1-51.0 L 411) CBC W/PLT COUNT & AUTO [id number] 13:38:00 Test Item Value Reference Range Interpretation [...] TS. Specimen slightly ictericLACTIC ACID, ARTERIAL, WHOLE [id number] 13:21:00 Test Item Value Reference Range Interpretation Comments LACTATE BLOOD ARTERIAL (2) 0.8 mmol/L 0.5-2.2 (BEAKER) (test code = 2874) Effective 02/25/2016: Units/Reference Range ChangeNew: 0.5-2.2 mmol/L Previous: 5-20 mg/dLSpecimen slightly ictericCALCIUM, [id number] 13:06:00 Test Item Value Reference Range Interpretation Comments CALCIUM IONIZED (BEAKER) (test 1.07 mmol/L 1.12-1.27 L code = 698) PH, BLOOD (BEAKER) (test code = 7.44 1810) PLATELET [id number] 13:01:00 Test Item Value Reference Range Interpretation Comments PLATELET COUNT (BEAKER) (test 138 K/CU MM 150-450 L code = 756) HEMOGLOBIN AND [id number] 13:01:00 Test Item Value Reference Range Interpretation Comments HEMOGLOBIN (BEAKER) (test code = 9.4 GM/DL 13.7-17.5 L 410) HEMATOCRIT (BEAKER) (test code = 27.7 % 40.1-51.0 L 411) POCT-GLUCOSE [id number] 12:02:00 Test Item Value Reference Range Interpretation Comments POC-GLUCOSE METER 175 mg/dL 70-110 H TESTED AT [facility] 6720 ([facility]) (test code = [place] 1538) [address] LACTIC ACID, VENOUS, WHOLE [id number] 11:44:00 Test Item Value Reference Range Interpretation Comments LACTATE BLOOD VENOUS (2) (AKER) 0.9 mmol/L 0.5-2.2 (test code = 2872) Effective 02/25/2016: Units/Reference Range ChangeNew: 0.5-2.2 mmol/L Previous: 5-20 mg/dLLACTIC ACID, VENOUS, WHOLE [id number] 10:20:00 Test Item Value Reference Range Interpretation Comments LACTATE BLOOD VENOUS (2) ([facility]) 0.9 mmol/L 0.5-2.2 (test code = 2872) Effective 02/25/2016: Units/Reference Range ChangeNew: 0.5-2.2 mmol/L Previous: 5-20 mg/aBA-[id number] 10:00:00 Test Item Value Reference Range Interpretation [...] exclusion of thrombosis is within 95-100% range. PT/[id number] 09:58:00 Test Item Value Reference Range Interpretation Comments PROTIME ([facility]) (test code = 17.6 seconds 11.7-14.7 H 759) INR ([facility]) (test code = 370) 1.5 <=5.9 PARTIAL THROMBOPLASTIN TIME 29.5 seconds 22.5-36.0 ([facility]) (test code = 760) RECOMMENDED COUMADIN/WARFARIN INR THERAPY RANGESSTANDARD DOSE: 2.0 - 3.0 Includes: PROPHYLAXIS forvenous thrombosis, systemic embolization; TREATMENT for venous thrombosis and/or pulmonary embolus.HIGH RISK: Target INR is 2.5-3.5 for patients with mechanical heart valves.[id number] 09:58:00 Test Item Value Reference Range Interpretation Comments FIBRINOGEN LEVEL (BEAKER) (test 151 mg/dl 225-434 L code = 658) CALCIUM, [id number] 09:31:00 Test Item Value Reference Range Interpretation Comments CALCIUM IONIZED (BEAKER) (test 1.09 mmol/L 1.12-1.27 L code = 698) PH, BLOOD (BEAKER) (test code = 7.45 1810) CBC W/PLT COUNT & AUTO [id number] 08:51:00 Test Item Value Reference Range Interpretation [...] Adequate (CELLAVISION)(BEAKER) (test code = 3438) PROTHROMBIN [id number] 08:06:00 Test Item Value Reference Range Interpretation Comments PROTIME (BEAKER) (test code = 17.3 seconds 11.7-14.7 H 759) INR (BEAKER) (test code = 370) 1.4 <=5.9 RECOMMENDED COUMADIN/WARFARIN INR THERAPY RANGESSTANDARD DOSE: 2.0 - 3.0 Includes: PROPHYLAXIS forvenous thrombosis, systemic embolization; TREATMENT for venous thrombosis and/or pulmonary embolus.HIGH RISK: Target INR is 2.5-3.5 for patients with mechanical heart valves.PT/[id number] 08:06:00 Test Item Value Reference Range Interpretation [...] is 2.5-3.5 for patients with mechanical heart valves.[id number] 08:06:00 Test Item Value Reference Range Interpretation Comments FIBRINOGEN LEVEL (BEAKER) (test 153 mg/dl 225-434 L code = 658) [id number] 08:06:00 Test Item Value Reference Range Interpretation [...] of thrombosis is within 95-100% range.BLOOD GAS, [id number] 07:07:00 Test Item Value Reference Range Interpretation [...] (BEAKER) (test code = 1819) 100 CALCIUM, [id number] 07:07:00 Test Item Value Reference Range Interpretation Comments CALCIUM IONIZED (BEAKER) (test 1.08 mmol/L 1.12-1.27 L code = 698) PH, BLOOD (BEAKER) (test code = 7.48 1810) CALCIUM, [id number] 07:06:00 Test Item Value Reference Range Interpretation Comments CALCIUM IONIZED (BEAKER) (test 1.07 mmol/L 1.12-1.27 L code = 698) PH, BLOOD (BEAKER) (test code = 7.44 1810) [id number] 06:52:00 Test Item Value Reference Range Interpretation Comments MAGNESIUM (BEAKER) (test code = 1.5 mg/dL 1.6-2.6 L 627) [id number] 06:52:00 Test Item Value Reference Range Interpretation Comments POTASSIUM (BEAKER) (test code = 3.3 meq/L 3.5-5.1 L 379) [id number] 06:52:00 Test Item Value Reference Range Interpretation Comments SODIUM (BEAKER) (test code = 381) 142 meq/L 136-145 HEPATIC FUNCTION [id number] 06:52:00 Test Item Value Reference Range Interpretation [...] 0.4 % 0.0-5.0 code = 1414) PLATELET [id number] 05:34:00 Test Item Value Reference Range Interpretation Comments PLATELET COUNT (BEAKER) (test 146 K/CU MM 150-450 L code = 756) HEMOGLOBIN AND [id number] 05:34:00 Test Item Value Reference Range Interpretation Comments HEMOGLOBIN (BEAKER) (test code = 7.3 GM/DL 13.7-17.5 L 410) HEMATOCRIT (BEAKER) (test code = 22.2 % 40.1-51.0 L 411) CALCIUM, [id number] 05:26:00 Test Item Value Reference Range Interpretation Comments CALCIUM IONIZED (BEAKER) (test 0.96 mmol/L 1.12-1.27 L code = 698) PH, BLOOD (BEAKER) (test code = 7.40 1810) RAD, CHEST, 1 VIEW, NON [id number] 05:09:00Reason for exam:->check ET placementShould this be [...] MDReport Verified Date/Time: 07/15/2018 05:09:29 Reading Location: [address] [place] Body Reading Room -[id number] 04:55:00 Test Item Value Reference Range Interpretation [...] thrombosis is within 95-100% range.POCT- BLOOD GASES, [id number] 04:54:00 Test Item Value Reference Range Interpretation Comments TEMP, CELSIUS-POC 36.8 (BEAKER) (test code = 1834) FIO2-POC (BEAKER) 100 TESTED AT [facility] 6720 (test code = 1835) [facility] [place] [address] PH, ARTERIAL-POC 7.424 7.350-7.450 (BEAKER) (test code = 1836) PCO2, ARTERIAL-POC 41.6 mm Hg 35.0-45.0 (BEAKER) (test code = 1837) PO2, ARTERIAL-POC 482.0 mm Hg 80.0-90.0 H (BEAKER) (test code = 1838) SO2, ARTERIAL-POC 100.0 % 96.0-97.0 H (BEAKER) (test code = 1839) HCO3, ARTERIAL-POC 27.3 meq/L 21.0-29.0 ([facility]) (test code = 1840) BASE EXCESS, 3.0 meq/L -2.0-3.0 ARTERIAL-POC ([facility]) (test code = 1841) [id number] 04:54:00 Test Item Value Reference Range Interpretation Comments POC-SODIUM ([facility]) 144 meq/L 135-148 TESTED A [place] [address] (test code = 1542) [facility] [address] [id number] 04:54:00 Test Item Value Reference Range Interpretation Comments POC-POTASSIUM 3.2 meq/L 3.6-5.5 L TESTED AT [place] [address] ([facility]) (test code [place] [id number] = 1540) [id number] 04:54:00 Test Item Value Reference Range Interpretation Comments POC-GLUCOSE ([facility]) 170 mg/dL 70-110 H TESTED AT [place] [address] (test code = 1855) [facility] [address] POCT-CALCIUM [id number] 04:54:00 Test Item Value Reference Range Interpretation Comments POC-CALCIUM IONIZED 1.09 mmol/L 1.12-1.27 L TESTED [place] [address] ([facility]) (test code = [facility] 1530) [address] [id number] 04:54:00 Test Item Value Reference Range Interpretation Comments POC-HEMATOCRIT 22 % 40-50 L TESTED AT [place] [address] ([facility]) (test code = [facility] [address] 1086) [id number] 04:54:00 Test Item Value Reference Range Interpretation Comments POC-HEMOGLOBIN 7.5 g/dL 13.0-16.8 L TESTED AT [place] [address] ([facility]) (test code = [facility] 1851) [address]OYELYQ AT [address] [address] PT/[id number] 04:53:00 Test Item Value Reference Range Interpretation Comments PROTIME ([facility]) (test code = 18.4 seconds 11.7-14.7 H 759) INR (BEAKER) (test code = 370) 1.5 <=5.9 PARTIAL THROMBOPLASTIN TIME 33.3 seconds 22.5-36.0 (BEAKER) (test code = 760) RECOMMENDED COUMADIN/WARFARIN INR THERAPY RANGESSTANDARD DOSE: 2.0 - 3.0 Includes: PROPHYLAXIS forvenous thrombosis, systemic embolization; TREATMENT for venous thrombosis and/or pulmonary embolus.HIGH RISK: Target INR is 2.5-3.5 for patients with mechanical heart valves.[id number] 04:53:00 Test Item Value Reference Range Interpretation Comments FIBRINOGEN LEVEL (BEAKER) (test 164 mg/dl 225-434 L code = 658) HEMOGLOBIN AND [id number] 04:12:00 Test Item Value Reference Range Interpretation Comments HEMOGLOBIN (BEAKER) (test code = 7.3 GM/DL 13.7-17.5 L 410) HEMATOCRIT (BEAKER) (test code = 22.3 % 40.1-51.0 L 411) POCT-BLOOD GASES, [id number] 03:58:00 Test Item Value Reference Range Interpretation Comments TEMP, CELSIUS-POC 36.8 (BEAKER) (test code = 1834) FIO2-POC (BEAKER) 32 TESTED AT [facility] 6720 (test code = 1835) [facility] [place] [address] PH, ARTERIAL-POC 7.426 7.350-7.450 (BEAKER) (test code [...] -2.0-3.0 ARTERIAL-POC (BEAKER) (test code = 1841) [id number] 03:58:00 Test Item Value Reference Range Interpretation Comments POC-SODIUM (BEAKER) 143 meq/L 135-148 TESTED [place] [address] (test code = 1542) [facility] [address] [id number] 03:58:00 Test Item Value Reference Range Interpretation Comments POC-POTASSIUM 4.3 meq/L 3.6-5.5 TESTED AT [place] [address] ([facility]) (test code [facility] [address] = 1540) [id number] 03:58:00 Test Item Value Reference Range Interpretation Comments POC-GLUCOSE ([facility]) 178 mg/dL 70-110 H TESTED AT [place] [address] (test code = 1855) [facility] [address] POCT-CALCIUM [id number] 03:58:00 Test Item Value Reference Range Interpretation Comments POC-CALCIUM IONIZED 0.95 mmol/L 1.12-1.27 L TESTED [place] [address] ([facility]) (test code = [facility] 1536) [address] [id number] 03:58:00 Test Item Value Reference Range Interpretation Comments POC-HEMATOCRIT 17 % 40-50 L TESTED AT [place] [address] ([facility]) (test code = [facility] [address] 185) [id number] 03:58:00 Test Item Value Reference Range Interpretation Comments POC-HEMOGLOBIN 5.8 g/dL 13.0-16.8 LL TESTED AT [place] [address] ([facility]) (test code = [facility] Janis [facility] 1856) [id number] AT [place] [address] A[place] [facility] [address] PT/[id number] 03:23:00 Test Item Value Reference Range Interpretation Comments PROTIME ([facility]) (test code = 17.2 seconds 11.7-14.7 H 759) INR ([facility]) (test code = 370) 1.4 <=5.9 PARTIAL THROMBOPLASTIN TIME 32.7 seconds 22.5-36.0 ([facility]) (test code = 760) RECOMMENDED COUMADIN/WARFARIN INR THERAPY RANGESSTANDARD DOSE: 2.0 - 3.0 Includes: PROPHYLAXIS forvenous thrombosis, systemic embolization; TREATMENT for venous thrombosis and/or pulmonary embolus.HIGH RISK: Target INR is 2.5-3.5 for patients with mechanical heart valves.PROTHROMBIN [id number] 03:22:00 Test Item Value Reference Range Interpretation Comments PROTIME (BEAKER) (test code = 17.2 seconds 11.7-14.7 H 759) INR (BEAKER) (test code = 370) 1.4 <=5.9 RECOMMENDED COUMADIN/WARFARIN INR THERAPY RANGESSTANDARD DOSE: 2.0 - 3.0 Includes: PROPHYLAXIS forvenous thrombosis, systemic embolization; TREATMENT for venous thrombosis and/or pulmonary embolus.HIGH RISK: Target INR is 2.5-3.5 for patients with mechanical heart valves.BASIC METABOLIC [id number] 02:56:00 Test Item Value Reference Range Interpretation [...] APPLICABLE FOR DIALYSIS PATIEN TS. POCT-BLOOD GASES, [id number] 02:24:00 Test Item Value Reference Range Interpretation Comments TEMP, CELSIUS-POC 36.1 (BEAKER) (test code = 1834) FIO2-POC (BEAKER) 32 TESTED AT [facility] 6720 (test code = 1835) [place] [address] PH, VENOUS-POC 7.432 7.320-7.420 H (BEAKER) (test code = 1842) PCO2, VENOUS-POC 46.6 mm Hg 41.0-51.0 (BEAKER) (test code = 1843) PO2, VENOUS-POC 27.0 mm Hg 25.0-40.0 ([facility]) (test code = 1844) SO2, VENOUS-POC 54.0 % 40.0-70.0 ([facility]) (test code = 1845) HCO3, VENOUS-POC 31.3 meq/L 21.0-29.0 H (BEAKER) (test code = 1846) BASE EXCESS, 7.0 meq/L -2.0-3.0 H VENOUS-POC ([facility]) (test code = 1847) [id number] 02:24:00 Test Item Value Reference Range Interpretation Comments POC-SODIUM ([facility]) 143 meq/L 135-148 TESTED [place] [address] (test code = 1542) [facility] [address] [id number] 02:24:00 Test Item Value Reference Range Interpretation Comments POC-POTASSIUM 3.1 meq/L 3.6-5.5 L TESTED AT [place] [address] ([facility]) (test code [facility] [address] = 1540) [id number] 02:24:00 Test Item Value Reference Range Interpretation Comments POC-GLUCOSE ([facility]) 134 mg/dL 70-110 H TESTED AT [place] [address] (test code = 1855) [facility] [address] POCT-CALCIUM [id number] 02:24:00 Test Item Value Reference Range Interpretation Comments POC-CALCIUM IONIZED 1.20 mmol/L 1.12-1.27 TESTED [place] [address] ([facility]) (test code = GENEIVEVE Bruce [facility] 1538) [address] [id number] 02:24:00 Test Item Value Reference Range Interpretation Comments POC-HEMATOCRIT 18 % 40-50 L TESTED AT [place] [address] ([facility]) (test code = [facility] Janis [facility] [address]) [id number] 02:24:00 Test Item Value Reference Range Interpretation Comments POC-HEMOGLOBIN 6.1 g/dL 13.0-16.8 L TESTED AT [place] [address] ([facility]) (test code = GENEVIEVE [place] 1856) [address]OCODKW AT [place] [address] [place] [address] POCT-GLUCOSE [id number] 20:58:00 Test Item Value Reference Range Interpretation Comments POC-GLUCOSE METER 196 mg/dL 70-110 H TESTED AT [facility] 67 (BEAKER) (test code = GENEVIEVE Bruce [facility] 1538) [address] POCT-GLUCOSE [id number] 17:05:00 Test Item Value Reference Range Interpretation Comments POC-GLUCOSE METER 236 mg/dL 70-110 H TESTED AT [place] [address] [facility] (test code = GENEVIEVE Bruce [facility] 1538) [address] POCT-GLUCOSE [id number] 12:04:00 Test Item Value Reference Range Interpretation Comments POC-GLUCOSE METER 115 mg/dL 70-110 H TESTED AT [place] [address] ([facility]) (test code = GENEVIEVE Bruce [facility] 1538) [address] RAD, CHEST, 1 VIEW, NON [id number] 10:09:00Reason for exam:->to assess for consolidation, pleural effusions, pulmonary edemaShould this be performed at the bedside?->YesFINAL REPORT Chest one view compared to July 09 Discussion: Mild interstitial congestion. No effusion or pneumothorax. Right IJ line in place. Signed: Felicitas Rivera Verified Date/Time: 07/14/2018 10:09:51 Reading Location: [facility] Radiology Reading Room BASIC METABOLIC [id number] 08:26:00 Test Item Value Reference Range Interpretation [...] APPLICABLE FOR DIALYSIS PATIEN TS. BLOOD GAS, [id number] 08:09:00 Test Item Value Reference Range Interpretation [...] code = 1819) 36.0 % HEMOGLOBIN AND [id number] 08:07:00 Test Item Value Reference Range Interpretation Comments HEMOGLOBIN (BEAKER) (test code = 7.8 GM/DL 13.7-17.5 L 410) HEMATOCRIT (BEAKER) (test code = 24.4 % 40.1-51.0 L 411) POCT-GLUCOSE [id number] 06:12:00 Test Item Value Reference Range Interpretation Comments POC-GLUCOSE METER 95 mg/dL 70-110 TESTED AT [facility] 6720 (BEAKER) (test code = GENEVIEVE Bruce [facility] [address] 1538) OXYGEN SATURATION, [id number] 05:31:00 Test Item Value Reference Range Interpretation Comments O2 SATURATION (MEASURED) (BEAKER) 97.9 % (test code = 1455) Obtain from CVP portVANCOMYCIN LEVEL, [id number] 05:18:00 Test Item Value Reference Range Interpretation Comments VANCOMYCIN RANDOM (BEAKER) (test 20.5 ug/mL code = 523) Reference Range: No NormalsBLOOD GAS, [id number] 05:01:00 Test Item Value Reference Range Interpretation [...] (BEAKER) (test code = 1819) 32.0 % [id number] 04:55:00 Test Item Value Reference Range Interpretation Comments MAGNESIUM (BEAKER) (test code = 1.9 mg/dL 1.6-2.6 627) BASIC METABOLIC [id number] 04:55:00 Test Item Value Reference Range Interpretation [...] APPLICABLE FOR DIALYSIS PATIEN TS. HEPATIC FUNCTION [id number] 04:55:00 Test Item Value Reference Range Interpretation [...] code = 35 U/L 6-55 347) PROTHROMBIN [id number] 04:28:00 Test Item Value Reference Range Interpretation Comments PROTIME (BEAKER) (test code = 17.3 seconds 11.7-14.7 H 759) INR (BEAKER) (test code = 370) 1.4 <=5.9 RECOMMENDED COUMADIN/WARFARIN INR THERAPY RANGESSTANDARD DOSE: 2.0 - 3.0 Includes: PROPHYLAXIS forvenous thrombosis, systemic embolization; TREATMENT for venous thrombosis and/or pulmonary embolus.HIGH RISK: Target INR is 2.5-3.5 for patients with mechanical heart valves.HEMOGLOBIN AND [id number] 04:22:00 Test Item Value Reference Range Interpretation Comments HEMOGLOBIN (BEAKER) (test code = 8.2 GM/DL 13.7-17.5 L 410) HEMATOCRIT (BEAKER) (test code = 25.7 % 40.1-51.0 L 411) POCT-GLUCOSE [id number] 00:22:00 Test Item Value Reference Range Interpretation Comments POC-GLUCOSE METER 96 mg/dL 70-110 TESTED AT [facility] 6720 (BEAKER) (test code = GENEVIEVE Bruce [facility] [address] 1538) HEMOGLOBIN AND [id number] 21:02:00 Test Item Value Reference Range Interpretation Comments HEMOGLOBIN (BEAKER) (test code = 8.5 GM/DL 13.7-17.5 L 410) HEMATOCRIT (BEAKER) (test code = 26.1 % 40.1-51.0 L 411) POCT-GLUCOSE [id number] 17:53:00 Test Item Value Reference Range Interpretation Comments POC-GLUCOSE METER 123 mg/dL 70-110 H TESTED AT [facility] 6720 (BEAKER) (test code = GENEVIEVE Bruce [place] 1538) [address] [id number] 16:37:00 Test Item Value Reference Range Interpretation Comments MAGNESIUM (BEAKER) (test code = 2.1 mg/dL 1.6-2.6 627) BASIC METABOLIC [id number] 16:37:00 Test Item Value Reference Range Interpretation [...] APPLICABLE FOR DIALYSIS PATIEN TS. HEPATITIS B [id number] 13:03:00 Test Item Value Reference Range Interpretation Comments HEPATITIS B CORE TOTAL ANTIBODY Nonreactive Nonreactive (BEAKER) (test code = 497) HEPATITIS B SURFACE ANTIBODY 14.4 mIU/mL <8.0 H (BEAKER) (test code = 647) HEPATITIS B SURFACE ANTIGEN (2) Nonreactive Nonreactive (BEAKER) (test code = 2585) POCT-GLUCOSE [id number] 12:24:00 Test Item Value Reference Range Interpretation Comments POC-GLUCOSE METER 123 mg/dL 70-110 H TESTED AT [facility] 6720 (BEAKER) (test code = GENEVIEVE Bruce [place] 1538) [address] HEMOGLOBIN AND [id number] 12:07:00 Test Item Value Reference Range Interpretation Comments HEMOGLOBIN (BEAKER) (test code = 8.1 GM/DL 13.7-17.5 L 410) HEMATOCRIT (BEAKER) (test code = 25.2 % 40.1-51.0 L 411) BLOOD GAS, [id number] 09:34:00 Test Item Value Reference Range Interpretation [...] (test code = 1819) 21.0 % POCT-GLUCOSE [id number] 06:31:00 Test Item Value Reference Range Interpretation Comments POC-GLUCOSE METER 123 mg/dL 70-110 H TESTED AT [facility] 6720 (BEAKER) (test code = GENEVIEVE [place] 1538) [address] CALCIUM, [id number] 04:56:00 Test Item Value Reference Range Interpretation Comments CALCIUM IONIZED (BEAKER) (test 1.17 mmol/L 1.12-1.27 code = 698) PH, BLOOD (BEAKER) (test code = 7.41 1810) OXYGEN SATURATION, [id number] 04:55:00 Test Item Value Reference Range Interpretation Comments O2 SATURATION (MEASURED) (BEAKER) 84.2 % (test code = 1455) Obtain from CVP [id number] 04:31:00 Test Item Value Reference Range Interpretation Comments POTASSIUM (BEAKER) (test code = 3.9 meq/L 3.5-5.1 379) [id number] 04:31:00 Test Item Value Reference Range Interpretation Comments MAGNESIUM (BEAKER) (test code = 2.2 mg/dL 1.6-2.6 627) [id number] 04:31:00 Test Item Value Reference Range Interpretation Comments SODIUM (BEAKER) (test code = 381) 140 meq/L 136-145 HEPATIC FUNCTION [id number] 04:31:00 Test Item Value Reference Range Interpretation [...] code = 32 U/L 6-55 347) PROTHROMBIN [id number] 04:24:00 Test Item Value Reference Range Interpretation [...] H PERCENT (BEAKER) (test code = 2801) [id number] 02:44:00 Test Item Value Reference Range Interpretation Comments POTASSIUM (BEAKER) (test code = 3.4 meq/L 3.5-5.1 L 379) HEMOGLOBIN AND [id number] 02:33:00 Test Item Value Reference Range Interpretation Comments HEMOGLOBIN (BEAKER) (test code = 8.3 GM/DL 13.7-17.5 L 410) HEMATOCRIT (BEAKER) (test code = 25.6 % 40.1-51.0 L 411) POCT-GLUCOSE [id number] 00:56:00 Test Item Value Reference Range Interpretation Comments POC-GLUCOSE METER 104 mg/dL 70-110 TESTED AT [facility] 6720 (BEAKER) (test code = GENEVIEVE [place] 1538) [address] BASIC METABOLIC [id number] 23:41:00 Test Item Value Reference Range Interpretation [...] S NOT APPLICABLE FOR DIALYSIS PATIEN TS. [id number] 18:36:00 Test Item Value Reference Range Interpretation Comments POTASSIUM (BEAKER) (test code = 3.9 meq/L 3.5-5.1 379) [id number] 18:36:00 Test Item Value Reference Range Interpretation Comments MAGNESIUM (BEAKER) (test code = 1.9 mg/dL 1.6-2.6 627) [id number] 18:36:00 Test Item Value Reference Range Interpretation Comments PHOSPHORUS (BEAKER) (test code = 3.5 mg/dL 2.3-4.7 604) [id number] 18:36:00 Test Item Value Reference Range Interpretation Comments SODIUM (BEAKER) (test code = 381) 139 meq/L 136-145 BASIC METABOLIC [id number] 18:36:00 Test Item Value Reference Range Interpretation [...] NOT APPLICABLE FOR DIALYSIS PATIEN TS. PH, [id number] 18:28:00 Test Item Value Reference Range Interpretation Comments PH ARTERIAL (BEAKER) (test code = 383) 7.44 7.35-7.45 CALCIUM, [id number] 18:28:00 Test Item Value Reference Range Interpretation Comments CALCIUM IONIZED (BEAKER) (test 1.16 mmol/L 1.12-1.27 code = 698) PH, BLOOD (BEAKER) (test code = 7.44 1810) HEMOGLOBIN AND [id number] 18:21:00 Test Item Value Reference Range Interpretation Comments HEMOGLOBIN (BEAKER) (test code = 8.6 GM/DL 13.7-17.5 L 410) HEMATOCRIT (BEAKER) (test code = 26.2 % 40.1-51.0 L 411) POCT-GLUCOSE [id number] 17:47:00 Test Item Value Reference Range Interpretation Comments POC-GLUCOSE METER 114 mg/dL 70-110 H TESTED AT [facility] 6720 (BEAKER) (test code = GENEVIEVE [place] 1538) [address] [id number] 14:40:00 Test Item Value Reference Range Interpretation Comments PROCALCITONIN (BEAKER) (test code 0.65 ng/mL <0.05 H = 3036) SEPSIS RISK (ng/mL)Low: 0.05-0.50Intermediate: 0.51-2.00High: >=[id number] 13:50:00 Test Item Value Reference Range Interpretation Comments POTASSIUM (BEAKER) (test code = 4.1 meq/L 3.5-5.1 379) BASIC METABOLIC [id number] 13:50:00 Test Item Value Reference Range Interpretation [...] APPLICABLE FOR DIALYSIS PATIEN TS. VANCOMYCIN LEVEL, [id number] 13:49:00 Test Item Value Reference Range Interpretation Comments VANCOMYCIN TROUGH (BEAKER) (test 16.0 ug/mL 10.0-20.0 code = 522) CALCIUM, [id number] 13:32:00 Test Item Value Reference Range Interpretation Comments CALCIUM IONIZED (BEAKER) (test 1.17 mmol/L 1.12-1.27 code = 698) PH, BLOOD (BEAKER) (test code = 7.45 1810) POCT-GLUCOSE [id number] 13:32:00 Test Item Value Reference Range Interpretation Comments POC-GLUCOSE METER 151 mg/dL 70-110 H TESTED AT [facility] 6720 (BEAKER) (test code = GENEVIEVE [place] 1533) [address] BLOOD GAS, [id number] 10:06:00 Test Item Value Reference Range Interpretation [...] (BEAKER) (test code = 1819) 28.0 % [id number] 08:56:00 Test Item Value Reference Range Interpretation Comments POTASSIUM (BEAKER) (test code = 4.2 meq/L 3.5-5.1 379) BASIC METABOLIC [id number] 08:56:00 Test Item Value Reference Range Interpretation [...] APPLICABLE FOR DIALYSIS PATIEN TS. HEMOGLOBIN AND [id number] 08:38:00 Test Item Value Reference Range Interpretation Comments HEMOGLOBIN (BEAKER) (test code = 7.9 GM/DL 13.7-17.5 L 410) HEMATOCRIT (BEAKER) (test code = 23.9 % 40.1-51.0 L 411) BLOOD [id number] 06:00:00 Test Item Value Reference Range Interpretation Comments CULTURE (BEAKER) (test No growth in 5 days code = 1095) BLOOD [id number] 06:00:00 Test Item Value Reference Range Interpretation Comments CULTURE (BEAKER) (test No growth in 5 days code = 1095) POCT-GLUCOSE [id number] 05:29:00 Test Item Value Reference Range Interpretation Comments POC-GLUCOSE METER 118 mg/dL 70-110 H TESTED AT [facility] 6720 (BEAKER) (test code = GENEVIEVE [place] 1538) [address] CALCIUM, [id number] 04:13:00 Test Item Value Reference Range Interpretation Comments CALCIUM IONIZED (BEAKER) (test 1.18 mmol/L 1.12-1.27 code = 698) PH, BLOOD (BEAKER) (test code = 7.47 1810) [id number] 04:13:00 Test Item Value Reference Range Interpretation Comments POTASSIUM (BEAKER) (test code = 4.4 meq/L 3.5-5.1 379) [id number] 04:13:00 Test Item Value Reference Range Interpretation Comments MAGNESIUM (BEAKER) (test code = 1.9 mg/dL 1.6-2.6 627) [id number] 04:13:00 Test Item Value Reference Range Interpretation Comments PHOSPHORUS (BEAKER) (test code = 2.9 mg/dL 2.3-4.7 604) [id number] 04:13:00 Test Item Value Reference Range Interpretation Comments SODIUM (BEAKER) (test code = 381) 140 meq/L 136-145 HEPATIC FUNCTION [id number] 04:13:00 Test Item Value Reference Range Interpretation [...] code = 31 U/L 6-55 347) PROTHROMBIN [id number] 04:12:00 Test Item Value Reference Range Interpretation [...] PERCENT (BEAKER) (test code = 2801) POCT-GLUCOSE [id number] 00:06:00 Test Item Value Reference Range Interpretation Comments POC-GLUCOSE METER 81 mg/dL 70-110 TESTED AT [facility] 6720 (BEAKER) (test code = [place] [address] 1538) HEMOGLOBIN AND [id number] 23:58:00 Test Item Value Reference Range Interpretation Comments HEMOGLOBIN (BEAKER) (test code = 8.0 GM/DL 13.7-17.5 L 410) HEMATOCRIT (BEAKER) (test code = 24.2 % 40.1-51.0 L 411) [id number] 21:58:00 Test Item Value Reference Range Interpretation Comments POTASSIUM (BEAKER) (test code = 4.2 meq/L 3.5-5.1 379) BASIC METABOLIC [id number] 21:58:00 Test Item Value Reference Range Interpretation [...] NOT APPLICABLE FOR DIALYSIS PATIEN TS. CALCIUM, [id number] 21:53:00 Test Item Value Reference Range Interpretation Comments CALCIUM IONIZED (BEAKER) (test 1.18 mmol/L 1.12-1.27 code = 698) PH, BLOOD (BEAKER) (test code = 7.48 1810) [id number] 18:52:00 Test Item Value Reference Range Interpretation Comments LIPASE (BEAKER) (test code = 749) 57 U/L 8-78 [id number] 18:35:00 Test Item Value Reference Range Interpretation Comments POTASSIUM (BEAKER) (test code = 4.5 meq/L 3.5-5.1 379) [id number] 18:35:00 Test Item Value Reference Range Interpretation Comments MAGNESIUM (BEAKER) (test code = 1.9 mg/dL 1.6-2.6 627) [id number] 18:35:00 Test Item Value Reference Range Interpretation Comments PHOSPHORUS (BEAKER) (test code = 3.1 mg/dL 2.3-4.7 604) [id number] 18:35:00 Test Item Value Reference Range Interpretation Comments SODIUM (BEAKER) (test code = 381) 140 meq/L 136-145 BASIC METABOLIC [id number] 18:35:00 Test Item Value Reference Range Interpretation [...] APPLICABLE FOR DIALYSIS PATIEN TS. HEMOGLOBIN AND [id number] 18:16:00 Test Item Value Reference Range Interpretation Comments HEMOGLOBIN (BEAKER) (test code = 7.7 GM/DL 13.7-17.5 L 410) HEMATOCRIT (BEAKER) (test code = 23.7 % 40.1-51.0 L 411) PH, [id number] 18:07:00 Test Item Value Reference Range Interpretation Comments PH ARTERIAL (BEAKER) (test code = 383) 7.47 7.35-7.45 H POCT-GLUCOSE [id number] 17:24:00 Test Item Value Reference Range Interpretation Comments POC-GLUCOSE METER 151 mg/dL 70-110 H TESTED AT [facility] 6720 (BEAKER) (test code = GENEVIEVE [place] 1538) [address] [id number] 12:50:00 Test Item Value Reference Range Interpretation Comments POTASSIUM (BEAKER) (test code = 5.1 meq/L 3.5-5.1 379) CALCIUM, [id number] 12:37:00 Test Item Value Reference Range Interpretation Comments CALCIUM IONIZED (BEAKER) (test 1.15 mmol/L 1.12-1.27 code = 698) PH, BLOOD (BEAKER) (test code = 7.46 1810) HEMOGLOBIN AND [id number] 12:32:00 Test Item Value Reference Range Interpretation Comments HEMOGLOBIN (BEAKER) (test code = 8.0 GM/DL 13.7-17.5 L 410) HEMATOCRIT (BEAKER) (test code = 24.5 % 40.1-51.0 L 411) POCT-GLUCOSE [id number] 12:04:00 Test Item Value Reference Range Interpretation Comments POC-GLUCOSE METER 191 mg/dL 70-110 H TESTED AT [facility] 6720 (BEAKER) (test code = GENEVIEVE [place] 1538) [address] [id number] 09:30:00 Test Item Value Reference Range Interpretation Comments POTASSIUM (BEAKER) (test code = 4.9 meq/L 3.5-5.1 379) [id number] 09:28:00 Test Item Value Reference Range Interpretation Comments PARTIAL THROMBOPLASTIN TIME 33.3 seconds 22.5-36.0 (BEAKER) (test code = 760) PROTHROMBIN [id number] 09:27:00 Test Item Value Reference Range Interpretation Comments PROTIME (BEAKER) (test code = 15.6 seconds 11.7-14.7 H 759) INR (BEAKER) (test code = 370) 1.2 <=5.9 RECOMMENDED COUMADIN/WARFARIN INR THERAPY RANGESSTANDARD DOSE: 2.0 - 3.0 Includes: PROPHYLAXIS forvenous thrombosis, systemic embolization; TREATMENT for venous thrombosis and/or pulmonary embolus.HIGH RISK: Target INR is 2.5-3.5 for patients with mechanical heart valves.[id number] 09:22:00 Test Item Value Reference Range Interpretation Comments POTASSIUM (BEAKER) (test code = 4.9 meq/L 3.5-5.1 379) [id number] 09:22:00 Test Item Value Reference Range Interpretation Comments MAGNESIUM (BEAKER) (test code = 2.1 mg/dL 1.6-2.6 627) [id number] 09:22:00 Test Item Value Reference Range Interpretation Comments PHOSPHORUS (BEAKER) (test code = 3.6 mg/dL 2.3-4.7 604) [id number] 09:22:00 Test Item Value Reference Range Interpretation Comments SODIUM (BEAKER) (test code = 381) 140 meq/L 136-145 BASIC METABOLIC [id number] 09:22:00 Test Item Value Reference Range Interpretation [...] APPLICABLE FOR DIALYSIS PATIEN TS. HEPATIC FUNCTION [id number] 09:22:00 Test Item Value Reference Range Interpretation [...] U/L 6-55 347) SPUTUM CULTURE + GRAM [id number] 08:37:00 Test Item Value Reference Interpretation Comments [...] 0-5 epithelial (BEAKER) (test code = cells 694843) GRAM STAIN RESULT No organisms (BEAKER) (test code = seen 463715) POCT-GLUCOSE [id number] 06:55:00 Test Item Value Reference Range Interpretation Comments POC-GLUCOSE METER 153 mg/dL 70-110 H TESTED AT [facility] 6720 (BEAKER) (test code = GENEVIEVE [place] 1538) [address] [id number] 06:01:00 Test Item Value Reference Range Interpretation [...] for patients with mechanical heart valves.OXYGEN SATURATION, [id number] 06:01:00 Test Item Value Reference Range Interpretation Comments O2 SATURATION (MEASURED) (BEAKER) 85.1 % (test code = 1455) Obtain from CVP portCALCIUM, [id number] 06:01:00 Test Item Value Reference Range Interpretation Comments CALCIUM IONIZED (BEAKER) (test 1.13 mmol/L 1.12-1.27 code = 698) PH, BLOOD (BEAKER) (test code = 7.41 1810) CBC W/PLT COUNT & AUTO [id number] 05:43:00 Test Item Value Reference Range Interpretation [...] (BEAKER) (test code = 2801) HEMOGLOBIN AND [id number] 05:41:00 Test Item Value Reference Range Interpretation Comments HEMOGLOBIN (BEAKER) (test code = 7.7 GM/DL 13.7-17.5 L 410) HEMATOCRIT (BEAKER) (test code = 23.6 % 40.1-51.0 L 411) BLOOD GAS, [id number] 05:34:00 Test Item Value Reference Range Interpretation [...] 1819) 25.0 % LACTIC ACID, ARTERIAL, WHOLE [id number] 05:18:00 Test Item Value Reference Range Interpretation Comments LACTATE BLOOD ARTERIAL (2) 0.6 mmol/L 0.5-2.2 (BEAKER) (test code = 2874) Effective 02/25/2016: Units/Reference Range ChangeNew: 0.5-2.2 mmol/L Previous: 5-20 mg/[id number] 01:03:00 Test Item Value Reference Range Interpretation Comments POTASSIUM (BEAKER) (test code = 4.7 meq/L 3.5-5.1 379) HEMOGLOBIN AND [id number] 00:48:00 Test Item Value Reference Range Interpretation Comments HEMOGLOBIN (BEAKER) (test code = 7.9 GM/DL 13.7-17.5 L 410) HEMATOCRIT (BEAKER) (test code = 24.1 % 40.1-51.0 L 411) POCT-GLUCOSE [id number] 23:46:00 Test Item Value Reference Range Interpretation Comments POC-GLUCOSE METER 146 mg/dL 70-110 H TESTED AT [facility] 6720 (BEAKER) (test code = GENEVIEVE [place] 1538) [address] [id number] 20:23:00 Test Item Value Reference Range Interpretation Comments POTASSIUM (BEAKER) (test code = 4.7 meq/L 3.5-5.1 379) PROTHROMBIN [id number] 20:14:00 Test Item Value Reference Range Interpretation Comments PROTIME (BEAKER) (test code = 16.1 seconds 11.7-14.7 H 759) INR (BEAKER) (test code = 370) 1.3 <=5.9 RECOMMENDED COUMADIN/WARFARIN INR THERAPY RANGESSTANDARD DOSE: 2.0 - 3.0 Includes: PROPHYLAXIS forvenous thrombosis, systemic embolization; TREATMENT for venous thrombosis and/or pulmonary embolus.HIGH RISK: Target INR is 2.5-3.5 for patients with mechanical heart valves.[id number] 20:14:00 Test Item Value Reference Range Interpretation Comments PARTIAL THROMBOPLASTIN TIME 36.0 seconds 22.5-36.0 (BEAKER) (test code = 760) CALCIUM, [id number] 20:02:00 Test Item Value Reference Range Interpretation Comments CALCIUM IONIZED (BEAKER) (test 1.14 mmol/L 1.12-1.27 code = 698) PH, BLOOD (BEAKER) (test code = 7.42 1810) HEMOGLOBIN AND [id number] 19:04:00 Test Item Value Reference Range Interpretation Comments HEMOGLOBIN (BEAKER) (test code = 8.0 GM/DL 13.7-17.5 L 410) HEMATOCRIT (BEAKER) (test code = 24.3 % 40.1-51.0 L 411) [id number] 16:46:00 Test Item Value Reference Range Interpretation Comments POTASSIUM (BEAKER) (test code = 5.0 meq/L 3.5-5.1 379) [id number] 16:46:00 Test Item Value Reference Range Interpretation Comments MAGNESIUM (BEAKER) (test code = 2.1 mg/dL 1.6-2.6 627) [id number] 16:46:00 Test Item Value Reference Range Interpretation Comments PHOSPHORUS (BEAKER) (test code = 3.1 mg/dL 2.3-4.7 604) [id number] 16:46:00 Test Item Value Reference Range Interpretation Comments SODIUM (BEAKER) (test code = 381) 138 meq/L 136-145 PLATELET [id number] 16:34:00 Test Item Value Reference Range Interpretation Comments PLATELET COUNT (BEAKER) (test code 57 K/CU MM 150-450 L = 756) BLOOD GAS, [id number] 16:31:00 Test Item Value Reference Range Interpretation [...] TEMPERATURE (BEAKER) (test 37.0 C code = 8983) POCT-GLUCOSE [id number] 16:25:00 Test Item Value Reference Range Interpretation Comments POC-GLUCOSE METER 135 mg/dL 70-110 H TESTED AT [facility] 6720 (BEAKER) (test code = GENEVIEVE Bruce [place] 1539) [address] HEMOGLOBIN AND [id number] 14:50:00 Test Item Value Reference Range Interpretation Comments HEMOGLOBIN (BEAKER) (test code = 7.0 GM/DL 13.7-17.5 L 410) HEMATOCRIT (BEAKER) (test code = 21.1 % 40.1-51.0 L 411) [id number] 12:41:00 Test Item Value Reference Range Interpretation Comments LIPASE (BEAKER) (test code = 749) 44 U/L 8-78 [id number] 12:41:00 Test Item Value Reference Range Interpretation Comments POTASSIUM (BEAKER) (test code = 4.7 meq/L 3.5-5.1 379) LACTIC ACID, ARTERIAL, WHOLE [id number] 12:34:00 Test Item Value Reference Range Interpretation Comments LACTATE BLOOD ARTERIAL (2) 0.6 mmol/L 0.5-2.2 (BEAKER) (test code = 2874) Effective 02/25/2016: Units/Reference Range ChangeNew: 0.5-2.2 mmol/L Previous: 5-20 mg/dLBLOOD GAS, [id number] 12:32:00 Test Item Value Reference Range Interpretation [...] (test code = 1819) 24.0 % CALCIUM, [id number] 12:32:00 Test Item Value Reference Range Interpretation Comments CALCIUM IONIZED (BEAKER) (test 1.13 mmol/L 1.12-1.27 code = 698) PH, BLOOD (BEAKER) (test code = 7.49 1810) [id number] 12:26:00 Test Item Value Reference Range Interpretation Comments PARTIAL THROMBOPLASTIN TIME 38.8 seconds 22.5-36.0 H (BEAKER) (test code = 760) PROTHROMBIN [id number] 12:25:00 Test Item Value Reference Range Interpretation Comments PROTIME (BEAKER) (test code = 16.4 seconds 11.7-14.7 H 759) INR (BEAKER) (test code = 370) 1.3 <=5.9 RECOMMENDED COUMADIN/WARFARIN INR THERAPY RANGESSTANDARD DOSE: 2.0 - 3.0 Includes: PROPHYLAXIS forvenous thrombosis, systemic embolization; TREATMENT for venous thrombosis and/or pulmonary embolus.HIGH RISK: Target INR is 2.5-3.5 for patients with mechanical heart valves.POCT-GLUCOSE [id number] 12:04:00 Test Item Value Reference Range Interpretation Comments POC-GLUCOSE METER 121 mg/dL 70-110 H TESTED AT [facility] 67 (BEAKER) (test code = [place] 153) [address] HEMOGLOBIN AND [id number] 10:46:00 Test Item Value Reference Range Interpretation Comments HEMOGLOBIN (BEAKER) (test code = 7.1 GM/DL 13.7-17.5 L 410) HEMATOCRIT (BEAKER) (test code = 21.1 % 40.1-51.0 L 411) CALCIUM, [id number] 09:20:00 Test Item Value Reference Range Interpretation Comments CALCIUM IONIZED (BEAKER) (test 1.13 mmol/L 1.12-1.27 code = 698) PH, BLOOD (BEAKER) (test code = 7.44 1810) CBC W/PLT COUNT & AUTO [id number] 08:02:00 Test Item Value Reference Range Interpretation [...] few (test code = 478) BASIC METABOLIC [id number] 07:43:00 Test Item Value Reference Range Interpretation [...] I S NOT APPLICABLE FOR DIALYSIS PATIEN CASSIE. [id number] 07:08:00 Test Item Value Reference Range Interpretation Comments PARTIAL THROMBOPLASTIN TIME 36.9 seconds 22.5-36.0 H (BEAKER) (test code = 760) PROTHROMBIN [id number] 07:07:00 Test Item Value Reference Range Interpretation [...] ChangeNew: 0.5-2.2 mmol/L Previous: 5-20 mg/dLBLOOD GAS, [id number] 06:53:00 Test Item Value Reference Range Interpretation [...] code = 1819) 30.0 % HEMOGLOBIN AND [id number] 06:42:00 Test Item Value Reference Range Interpretation Comments HEMOGLOBIN (BEAKER) (test code = 7.4 GM/DL 13.7-17.5 L 410) HEMATOCRIT (BEAKER) (test code = 22.4 % 40.1-51.0 L 411) POCT-GLUCOSE [id number] 06:33:00 Test Item Value Reference Range Interpretation Comments POC-GLUCOSE METER 159 mg/dL 70-110 H TESTED AT [facility] 6720 (BEAKER) (test code = [place] 1538) [address] CALCIUM, [id number] 04:45:00 Test Item Value Reference Range Interpretation Comments CALCIUM IONIZED (BEAKER) (test 1.12 mmol/L 1.12-1.27 code = 698) PH, BLOOD (BEAKER) (test code = 7.42 1810) [id number] 04:42:00 Test Item Value Reference Range Interpretation Comments MAGNESIUM (BEAKER) 2.4 mg/dL 1.6-2.6 Specimen slightly (test code = 627) hemolyzed [id number] 04:42:00 Test Item Value Reference Range Interpretation Comments POTASSIUM (BEAKER) 4.7 meq/L 3.5-5.1 Specimen slightly (test code = 379) hemolyzed HEPATIC FUNCTION [id number] 04:42:00 Test Item Value Reference Range Interpretation [...] (test code = 347) hemolyzed OXYGEN SATURATION, [id number] 04:35:00 Test Item Value Reference Range Interpretation Comments O2 SATURATION (MEASURED) (BEAKER) 95.5 % (test code = 1455) Obtain from CVP portLACTIC ACID, ARTERIAL, WHOLE [id number] 01:05:00 Test Item Value Reference Range Interpretation Comments LACTATE BLOOD ARTERIAL (2) 0.6 mmol/L 0.5-2.2 (BEAKER) (test code = 2874) Effective 02/25/2016: Units/Reference Range ChangeNew: 0.5-2.2 mmol/L Previous: 5-20 mg/dLBLOOD GAS, [id number] 00:41:00 Test Item Value Reference Range Interpretation [...] (test code = 1819) 50.0 % CALCIUM, [id number] 00:41:00 Test Item Value Reference Range Interpretation Comments CALCIUM IONIZED (BEAKER) (test 1.12 mmol/L 1.12-1.27 code = 698) PH, BLOOD (BEAKER) (test code = 7.42 1810) [id number] 00:25:00 Test Item Value Reference Range Interpretation Comments POTASSIUM (BEAKER) (test code = 4.7 meq/L 3.5-5.1 379) [id number] 00:20:00 Test Item Value Reference Range Interpretation Comments PARTIAL THROMBOPLASTIN TIME 36.5 seconds 22.5-36.0 H (BEAKER) (test code = 760) PROTHROMBIN [id number] 00:19:00 Test Item Value Reference Range Interpretation Comments PROTIME (BEAKER) (test code = 16.4 seconds 11.7-14.7 H 759) INR (BEAKER) (test code = 370) 1.3 <=5.9 RECOMMENDED COUMADIN/WARFARIN INR THERAPY RANGESSTANDARD DOSE: 2.0 - 3.0 Includes: PROPHYLAXIS forvenous thrombosis, systemic embolization; TREATMENT for venous thrombosis and/or pulmonary embolus.HIGH RISK: Target INR is 2.5-3.5 for patients with mechanical heart valves.POCT-GLUCOSE [id number] 00:12:00 Test Item Value Reference Range Interpretation Comments POC-GLUCOSE METER 186 mg/dL 70-110 H TESTED AT [facility] 6720 (BEAKER) (test code = [place] 1538) [address] HEMOGLOBIN AND [id number] 00:08:00 Test Item Value Reference Range Interpretation Comments HEMOGLOBIN (BEAKER) (test code = 7.9 GM/DL 13.7-17.5 L 410) HEMATOCRIT (BEAKER) (test code = 23.1 % 40.1-51.0 L 411) [id number] 19:56:00 Test Item Value Reference Range Interpretation Comments POTASSIUM (BEAKER) (test code = 4.9 meq/L 3.5-5.1 379) [id number] 19:56:00 Test Item Value Reference Range Interpretation Comments MAGNESIUM (BEAKER) (test code = 2.2 mg/dL 1.6-2.6 627) [id number] 19:56:00 Test Item Value Reference Range Interpretation Comments PHOSPHORUS (BEAKER) (test code = 3.8 mg/dL 2.3-4.7 604) [id number] 19:56:00 Test Item Value Reference Range Interpretation Comments SODIUM (BEAKER) (test code = 381) 137 meq/L 136-145 BASIC METABOLIC [id number] 19:56:00 Test Item Value Reference Range Interpretation [...] PATIEN TS. CBC W/PLT COUNT & AUTO [id number] 19:56:00 Test Item Value Reference Range Interpretation [...] PERCENT (BEAKER) (test code = 2801) CALCIUM, [id number] 19:41:00 Test Item Value Reference Range Interpretation Comments CALCIUM IONIZED (BEAKER) (test 1.13 mmol/L 1.12-1.27 code = 698) PH, BLOOD (BEAKER) (test code = 7.45 1810) LACTIC ACID, ARTERIAL, WHOLE [id number] 18:09:00 Test Item Value Reference Range Interpretation Comments LACTATE BLOOD ARTERIAL (2) 0.6 mmol/L 0.5-2.2 (BEAKER) (test code = 2874) Effective 02/25/2016: Units/Reference Range ChangeNew: 0.5-2.2 mmol/L Previous: 5-20 mg/[id number] 18:09:00 Test Item Value Reference Range Interpretation Comments TRIGLYCERIDES (BEAKER) (test code = 259 mg/dL 540) TRIGLYCERIDE REFERENCE RANGELow Risk <150Borderline Risk 150-199High Risk 200-499Very High Risk>=[id number] 18:05:00 Test Item Value Reference Range Interpretation Comments PARTIAL THROMBOPLASTIN TIME 35.6 seconds 22.5-36.0 (BEAKER) (test code = 760) PROTHROMBIN [id number] 18:04:00 Test Item Value Reference Range Interpretation Comments PROTIME (BEAKER) (test code = 16.2 seconds 11.7-14.7 H 759) INR (BEAKER) (test code = 370) 1.3 <=5.9 RECOMMENDED COUMADIN/WARFARIN INR THERAPY RANGESSTANDARD DOSE: 2.0 - 3.0 Includes: PROPHYLAXIS forvenous thrombosis, systemic embolization; TREATMENT for venous thrombosis and/or pulmonary embolus.HIGH RISK: Target INR is 2.5-3.5 for patients with mechanical heart valves.HEMOGLOBIN AND [id number] 17:52:00 Test Item Value Reference Range Interpretation Comments HEMOGLOBIN (BEAKER) (test code = 7.9 GM/DL 13.7-17.5 L 410) HEMATOCRIT (BEAKER) (test code = 22.4 % 40.1-51.0 L 411) BLOOD GAS, [id number] 17:48:00 Test Item Value Reference Range Interpretation [...] (test code = 1819) 50.0 % POCT-GLUCOSE [id number] 17:45:00 Test Item Value Reference Range Interpretation Comments POC-GLUCOSE METER 184 mg/dL 70-110 H TESTED AT [facility] 6720 (BEAKER) (test code = [place] 1538) [address] [id number] 16:05:00 Test Item Value Reference Range Interpretation Comments POTASSIUM (BEAKER) (test code = 4.9 meq/L 3.5-5.1 379) CALCIUM, [id number] 15:53:00 Test Item Value Reference Range Interpretation Comments CALCIUM IONIZED (BEAKER) (test 1.18 mmol/L 1.12-1.27 code = 698) PH, BLOOD (BEAKER) (test code = 7.42 1810) [id number] 12:36:00 Test Item Value Reference Range Interpretation Comments PARTIAL THROMBOPLASTIN TIME 39.8 seconds 22.5-36.0 H (BEAKER) (test code = 760) PROTHROMBIN TIME/[id number] 12:35:00 Test Item Value Reference Range Interpretation [...] Units/Reference Range ChangeNew: 0.5-2.2 mmol/L Previous: 5-20 mg/[id number] 12:34:00 Test Item Value Reference Range Interpretation Comments POTASSIUM (BEAKER) (test code = 4.6 meq/L 3.5-5.1 379) BLOOD GAS, [id number] 12:17:00 Test Item Value Reference Range Interpretation [...] code = 1819) 50.0 % HEMOGLOBIN AND [id number] 12:17:00 Test Item Value Reference Range Interpretation Comments HEMOGLOBIN (BEAKER) (test code = 9.6 GM/DL 13.7-17.5 L 410) HEMATOCRIT (BEAKER) (test code = 27.3 % 40.1-51.0 L 411) CALCIUM, [id number] 12:17:00 Test Item Value Reference Range Interpretation Comments CALCIUM IONIZED (BEAKER) (test 1.13 mmol/L 1.12-1.27 code = 698) PH, BLOOD (BEAKER) (test code = 7.37 1810) OXYGEN SATURATION, [id number] 12:16:00 Test Item Value Reference Range Interpretation Comments O2 SATURATION (MEASURED) (BEAKER) 81.6 % (test code = 1455) Obtain from CVP portRAD, CHEST, 1 VIEW, NON [id number] 12:16:00Reason for exam:->assess for pulmonary edemaShould this [...] mild worsening of CHF. Signed: Sharath Serra Verified Date/Time: 07/09/2018 12:16:49 Reading Location: [address] Body Reading Room -GLUCOSE [id number] 12:06:00 Test Item Value Reference Range Interpretation Comments POC-GLUCOSE METER 209 mg/dL 70-110 H TESTED AT [facility] 6720 (BEAKER) (test code = GENEVIEVE Bruce [place] 1538) [address] HEMOGLOBIN AND [id number] 10:33:00 Test Item Value Reference Range Interpretation [...] % 0.0-5.0 code = 1414) BLOOD GAS, [id number] 09:22:00 Test Item Value Reference Range Interpretation [...] FIO2 (BEAKER) (test code = 1819) 60 [id number] 08:58:00 Test Item Value Reference Range Interpretation Comments POTASSIUM (BEAKER) (test code = 4.7 meq/L 3.5-5.1 379) [id number] 08:58:00 Test Item Value Reference Range Interpretation Comments MAGNESIUM (BEAKER) (test code = 2.2 mg/dL 1.6-2.6 627) [id number] 08:58:00 Test Item Value Reference Range Interpretation Comments PHOSPHORUS (BEAKER) (test code = 3.4 mg/dL 2.3-4.7 604) [id number] 08:58:00 Test Item Value Reference Range Interpretation Comments SODIUM (BEAKER) (test code = 381) 136 meq/L 136-145 LACTIC ACID, ARTERIAL, WHOLE [id number] 08:55:00 Test Item Value Reference Range Interpretation Comments LACTATE BLOOD ARTERIAL (2) 1.9 mmol/L 0.5-2.2 (BEAKER) (test code = 2874) Effective 02/25/2016: Units/Reference Range ChangeNew: 0.5-2.2 mmol/L Previous: 5-20 mg/dLCBC W/PLT COUNT & AUTO [id number] 08:46:00 Test Item Value Reference Range Interpretation [...] = 31.0 % 40.1-51.0 L 411) CALCIUM, [id number] 08:30:00 Test Item Value Reference Range Interpretation Comments CALCIUM IONIZED (BEAKER) (test 1.17 mmol/L 1.12-1.27 code = 698) PH, BLOOD (BEAKER) (test code = 7.50 1810) PH, [id number] 08:30:00 Test Item Value Reference Range Interpretation Comments PH ARTERIAL (BEAKER) (test code = 383) 7.50 7.35-7.45 H POCT-GLUCOSE [id number] 08:26:00 Test Item Value Reference Range Interpretation Comments POC-GLUCOSE METER 180 mg/dL 70-110 H TESTED AT [facility] 6720 (BEAKER) (test code = [place] 1538) [address] ANG, EMBOLIZATION, EXTENSIVE - [id number] 07:11:00Reason for exam:- >upper GI bleedFINAL REPORT [...] MDReport Verified Date/Time: 07/09/2018 07:11:14 Reading Location: [place] [id number] Angio Body Reading Room CALCIUM, [id number] 07:06:00 Test Item Value Reference Range Interpretation Comments CALCIUM IONIZED (BEAKER) (test 1.10 mmol/L 1.12-1.27 L code = 698) PH, BLOOD (BEAKER) (test code = 7.42 1810) MRSA [id number] 06:59:00 Test Item Value Reference Range Interpretation Comments CULTURE (BEAKER) (test code No MRSA isolated = 1095) [id number] 06:24:00 Test Item Value Reference Range Interpretation [...] exclusion of thrombosis is within 95-100% range. [id number] 06:20:00 Test Item Value Reference Range Interpretation Comments FIBRINOGEN LEVEL (BEAKER) (test 128 mg/dl 225-434 L code = 658) HEPATIC FUNCTION [id number] 06:16:00 Test Item Value Reference Range Interpretation [...] (test code = 28 U/L 6-55 347) [id number] 06:15:00 Test Item Value Reference Range Interpretation [...] for patients with mechanical heart valves.BASIC METABOLIC [id number] 06:12:00 Test Item Value Reference Range Interpretation [...] S NOT APPLICABLE FOR DIALYSIS PATIEN TS. [id number] 06:12:00 Test Item Value Reference Range Interpretation Comments MAGNESIUM (BEAKER) (test code = 1.7 mg/dL 1.6-2.6 627) [id number] 06:12:00 Test Item Value Reference Range Interpretation Comments POTASSIUM (BEAKER) (test code = 4.8 meq/L 3.5-5.1 379) [id number] 06:12:00 Test Item Value Reference Range Interpretation Comments SODIUM (BEAKER) (test code = 381) 136 meq/L 136-145 PLATELET [id number] 05:53:00 Test Item Value Reference Range Interpretation Comments PLATELET COUNT (BEAKER) (test code 62 K/CU MM 150-450 L = 756) HEMOGLOBIN AND [id number] 05:53:00 Test Item Value Reference Range Interpretation [...] % 0.0-5.0 code = 1414) POCT-BLOOD GASES, [id number] 03:55:00 Test Item Value Reference Range Interpretation Comments TEMP, CELSIUS-POC 36.1 (BEAKER) (test code = 1834) FIO2-POC (BEAKER) 60 TESTED AT [facility] 6720 (test code = 1835) [place] [address] PH, ARTERIAL-POC 7.337 7.350-7.450 L (BEAKER) (test [...] L ARTERIAL-POC (BEAKER) (test code = 1841) [id number] 03:55:00 Test Item Value Reference Range Interpretation Comments POC-SODIUM (AKER) 139 meq/L 135-148 TESTED A [place] [address] (test code = 1542) [facility] [address] FAAR-[id number] 03:55:00 Test Item Value Reference Range Interpretation Comments POC-POTASSIUM 4.7 meq/L 3.6-5.5 TESTED AT [place] [address] ([facility]) (test code [facility] [address] = 1540) [id number] 03:55:00 Test Item Value Reference Range Interpretation Comments POC-GLUCOSE ([facility]) 175 mg/dL 70-110 H TESTED AT [place] [address] (test code = 1855) [facility] [address] POCT-CALCIUM [id number] 03:55:00 Test Item Value Reference Range Interpretation Comments POC-CALCIUM IONIZED 1.27 mmol/L 1.12-1.27 TESTED [place] [address] ([facility]) (test code = [facility] 1539) [address] [id number] 03:55:00 Test Item Value Reference Range Interpretation Comments POC-HEMATOCRIT 26 % 40-50 L TESTED AT [place] [address] ([facility]) (test code = [facility] [address] 3656) [id number] 03:55:00 Test Item Value Reference Range Interpretation Comments POC-HEMOGLOBIN 8.8 g/dL 13.0-16.8 L TESTED AT [facility] 6720 (BEAKER) (test code = [place] 1856) [address]UWTFNR AT [facility] [address] [place] [address] CALCIUM, [id number] 02:37:00 Test Item Value Reference Range Interpretation Comments CALCIUM IONIZED (BEAKER) (test 1.94 mmol/L 1.12-1.27 HH code = 698) PH, BLOOD (BEAKER) (test code = 7.26 1810) BLOOD GAS, [id number] 02:30:00 Test Item Value Reference Range Interpretation [...] (test 0.0 % 0.0-5.0 code = 1414) [id number] 01:54:00 Test Item Value Reference Range Interpretation Comments POTASSIUM (BEAKER) (test code = 3.9 meq/L 3.5-5.1 379) [id number] 01:54:00 Test Item Value Reference Range Interpretation Comments SODIUM (BEAKER) (test code = 381) 138 meq/L 136-145 PLATELET [id number] 01:46:00 Test Item Value Reference Range Interpretation Comments PLATELET COUNT (BEAKER) (test code 69 K/CU MM 150-450 L = 756) HEMOGLOBIN AND [id number] 01:46:00 Test Item Value Reference Range Interpretation Comments HEMOGLOBIN (BEAKER) (test code = 9.0 GM/DL 13.7-17.5 L 410) HEMATOCRIT (BEAKER) (test code = 27.4 % 40.1-51.0 L 411) POCT-BLOOD GASES, [id number] 01:27:00 Test Item Value Reference Range Interpretation Comments TEMP, CELSIUS-POC 36.4 (BEAKER) (test code = 1834) FIO2-POC (BEAKER) TESTED AT [facility] 6720 (test code = 1835) [place] [facility] [place] [address] PH, ARTERIAL-POC 7.194 7.350-7.450 LL (BEAKER) (test [...] L ARTERIAL-POC (BEAKER) (test code = 1841) [id number] 01:27:00 Test Item Value Reference Range Interpretation Comments POC-SODIUM (BEAKER) 141 meq/L 135-148 TESTED A T [facility] 6720 (test code = 1542) [place] Issa [facility] [address] [id number] 01:27:00 Test Item Value Reference Range Interpretation Comments POC-POTASSIUM 4.0 meq/L 3.6-5.5 TESTED AT [place] [address] ([facility]) (test code [facility] [address] = 1540) [id number] 01:27:00 Test Item Value Reference Range Interpretation Comments POC-GLUCOSE ([facility]) 219 mg/dL 70-110 H TESTED AT [place] [address] (test code = 1855) [place] Issa [facility] [address] POCT-CALCIUM [id number] 01:27:00 Test Item Value Reference Range Interpretation Comments POC-CALCIUM IONIZED 0.99 mmol/L 1.12-1.27 L TESTED [place] [address] ([facility]) (test code = [facility] Janis [facility] 1536) [address] [id number] 01:27:00 Test Item Value Reference Range Interpretation Comments POC-HEMATOCRIT 20 % 40-50 L TESTED AT [place] [address] ([facility]) (test code = [facility] [address]57) [id number] 01:27:00 Test Item Value Reference Range Interpretation Comments POC-HEMOGLOBIN 6.8 g/dL 13.0-16.8 L TESTED AT [place] [address] ([facility]) (test code = [facility] Janis [facility] 1856) [address]KTEGYD AT [place] [address] A[place] [facility] [address] HEMOGLOBIN AND [id number] 01:04:00 Test Item Value Reference Range Interpretation Comments HEMOGLOBIN (BEAKER) (test code = 6.9 GM/DL 13.7-17.5 L 410) HEMATOCRIT ([facility]) (test code = 21.0 % 40.1-51.0 L 411) VANCOMYCIN LEVEL, [id number] 00:57:00 Test Item Value Reference Range Interpretation Comments VANCOMYCIN TROUGH ([facility]) (test 19.9 ug/mL 10.0-20.0 code = 522) CALCIUM, [id number] 00:41:00 Test Item Value Reference Range Interpretation Comments CALCIUM IONIZED (BEAKER) (test 1.01 mmol/L 1.12-1.27 L code = 698) PH, BLOOD (BEAKER) (test code = 7.35 1810) [id number] 00:41:00 Test Item Value Reference Range Interpretation Comments POTASSIUM (BEAKER) (test code = 4.5 meq/L 3.5-5.1 379) HEMOGLOBIN AND [id number] 21:53:00 Test Item Value Reference Range Interpretation Comments HEMOGLOBIN (BEAKER) (test code = 6.1 GM/DL 13.7-17.5 L 410) HEMATOCRIT (BEAKER) (test code = 18.0 % 40.1-51.0 L 411) [id number] 19:42:00 Test Item Value Reference Range Interpretation Comments POTASSIUM (BEAKER) (test code = 4.6 meq/L 3.5-5.1 379) [id number] 19:42:00 Test Item Value Reference Range Interpretation Comments MAGNESIUM (BEAKER) (test code = 1.8 mg/dL 1.6-2.6 627) [id number] 19:42:00 Test Item Value Reference Range Interpretation Comments PHOSPHORUS (BEAKER) (test code = 3.5 mg/dL 2.3-4.7 604) [id number] 19:42:00 Test Item Value Reference Range Interpretation Comments SODIUM (BEAKER) (test code = 381) 137 meq/L 136-145 PROTHROMBIN [id number] 19:40:00 Test Item Value Reference Range Interpretation Comments PROTIME (BEAKER) (test code = 18.3 seconds 11.7-14.7 H 759) INR (BEAKER) (test code = 370) 1.5 <=5.9 RECOMMENDED COUMADIN/WARFARIN INR THERAPY RANGESSTANDARD DOSE: 2.0 - 3.0 Includes: PROPHYLAXIS forvenous thrombosis, systemic embolization; TREATMENT for venous thrombosis and/or pulmonary embolus.HIGH RISK: Target INR is 2.5-3.5 for patients with mechanical heart valves.PH, [id number] 19:30:00 Test Item Value Reference Range Interpretation Comments PH ARTERIAL (BEAKER) (test code = 383) 7.44 7.35-7.45 CALCIUM, [id number] 19:30:00 Test Item Value Reference Range Interpretation Comments CALCIUM IONIZED (BEAKER) (test 1.13 mmol/L 1.12-1.27 code = 698) PH, BLOOD (BEAKER) (test code = 7.44 1810) HEMOGLOBIN AND [id number] 19:28:00 Test Item Value Reference Range Interpretation Comments HEMOGLOBIN (BEAKER) (test code = 7.5 GM/DL 13.7-17.5 L 410) HEMATOCRIT (BEAKER) (test code = 21.8 % 40.1-51.0 L 411) POCT-GLUCOSE [id number] 17:21:00 Test Item Value Reference Range Interpretation Comments POC-GLUCOSE METER 189 mg/dL 70-110 H TESTED AT [facility] 6720 (BEAKER) (test code = [place] 1538) [address] [id number] 16:23:00 Test Item Value Reference Range Interpretation Comments MAGNESIUM (BEAKER) (test code = 1.8 mg/dL 1.6-2.6 627) CALCIUM, [id number] 16:07:00 Test Item Value Reference Range Interpretation Comments CALCIUM IONIZED (BEAKER) (test 1.14 mmol/L 1.12-1.27 code = 698) PH, BLOOD (BEAKER) (test code = 7.43 1810) HEMOGLOBIN AND [id number] 16:05:00 Test Item Value Reference Range Interpretation Comments HEMOGLOBIN (BEAKER) (test code = 8.1 GM/DL 13.7-17.5 L 410) HEMATOCRIT (BEAKER) (test code = 23.4 % 40.1-51.0 L 411) BLOOD GAS, [id number] 12:34:00 Test Item Value Reference Range Interpretation [...] (test code = 1819) 60.0 % PROTHROMBIN [id number] 12:05:00 Test Item Value Reference Range Interpretation Comments PROTIME (BEAKER) (test code = 18.1 seconds 11.7-14.7 H 759) INR (BEAKER) (test code = 370) 1.5 <=5.9 RECOMMENDED COUMADIN/WARFARIN INR THERAPY RANGESSTANDARD DOSE: 2.0 - 3.0 Includes: PROPHYLAXIS forvenous thrombosis, systemic embolization; TREATMENT for venous thrombosis and/or pulmonary embolus.HIGH RISK: Target INR is 2.5-3.5 for patients with mechanical heart valves.BLOOD GAS, [id number] 11:30:00 Test Item Value Reference Range Interpretation [...] (test code = 1819) 60.0 % CALCIUM, [id number] 11:29:00 Test Item Value Reference Range Interpretation Comments CALCIUM IONIZED (BEAKER) (test 1.15 mmol/L 1.12-1.27 code = 698) PH, BLOOD (BEAKER) (test code = 7.52 1810) POCT-GLUCOSE [id number] 11:22:00 Test Item Value Reference Range Interpretation Comments POC-GLUCOSE METER 202 mg/dL 70-110 H TESTED AT [facility] 6720 (BEAKER) (test code = GENEVIEVE Bruce [place] 1538) [address] [id number] 10:07:00 Test Item Value Reference Range Interpretation Comments FIBRINOGEN LEVEL (BEAKER) (test 222 mg/dl 225-434 L code = 658) HEMOGLOBIN AND [id number] 09:58:00 Test Item Value Reference Range Interpretation Comments HEMOGLOBIN (BEAKER) (test code = 8.8 GM/DL 13.7-17.5 L 410) HEMATOCRIT (BEAKER) (test code = 25.4 % 40.1-51.0 L 411) TROPONIN [id number] 09:11:00 Test Item Value Reference Range Interpretation [...] Serra MDReport Verified Date/Time: 07/08/2018 08:52:14 ReadingLocation: [facility] B1 C013X Ortho Consult Reading Room LACTIC ACID, ARTERIAL, WHOLE [id number] 08:43:00 Test Item Value Reference Range Interpretation Comments LACTATE BLOOD ARTERIAL (2) 1.1 mmol/L 0.5-2.2 (BEAKER) (test code = 2874) Effective 02/25/2016: Units/Reference Range ChangeNew: 0.5-2.2 mmol/L Previous: 5-20 mg/[id number] 08:12:00 Test Item Value Reference Range Interpretation Comments POTASSIUM (BEAKER) (test code = 3.9 meq/L 3.5-5.1 379) [id number] 08:12:00 Test Item Value Reference Range Interpretation Comments MAGNESIUM (BEAKER) (test code = 1.8 mg/dL 1.6-2.6 627) [id number] 08:12:00 Test Item Value Reference Range Interpretation Comments PHOSPHORUS (BEAKER) (test code = 2.2 mg/dL 2.3-4.7 L 604) [id number] 08:12:00 Test Item Value Reference Range Interpretation Comments SODIUM (BEAKER) (test code = 381) 134 meq/L 136-145 L HEMOGLOBIN AND [id number] 07:56:00 Test Item Value Reference Range Interpretation Comments HEMOGLOBIN (BEAKER) (test code = 8.9 GM/DL 13.7-17.5 L 410) HEMATOCRIT (BEAKER) (test code = 25.7 % 40.1-51.0 L 411) PH, [id number] 07:55:00 Test Item Value Reference Range Interpretation Comments PH ARTERIAL (BEAKER) (test code = 383) 7.63 7.35-7.45 HH CALCIUM, [id number] 07:53:00 Test Item Value Reference Range Interpretation Comments CALCIUM IONIZED (BEAKER) (test 1.06 mmol/L 1.12-1.27 L code = 698) PH, BLOOD (BEAKER) (test code = 7.63 1810) POCT-GLUCOSE [id number] 07:42:00 Test Item Value Reference Range Interpretation Comments POC-GLUCOSE METER 190 mg/dL 70-110 H TESTED AT [facility] 67[address] (BEAKER) (test code = [place] 1538) [address] FIBRIN SOLUBLE [id number] 07:40:00 Test Item Value Reference Range Interpretation Comments FIBRIN SOLUBLE MONOMER (BEAKER) Negative (test code = 1416) HEMOGLOBIN AND [id number] 06:23:00 Test Item Value Reference Range Interpretation [...] 0.0 % 0.0-5.0 code = 1414) CALCIUM, [id number] 05:19:00 Test Item Value Reference Range Interpretation Comments CALCIUM IONIZED (BEAKER) (test 1.28 mmol/L 1.12-1.27 H code = 698) PH, BLOOD (BEAKER) (test code = 7.40 1810) [id number] 04:51:00 Test Item Value Reference Range Interpretation Comments MAGNESIUM (BEAKER) (test code = 2.0 mg/dL 1.6-2.6 627) BASIC METABOLIC [id number] 04:51:00 Test Item Value Reference Range Interpretation [...] DIALYSIS PATIEN TS. Specimen slightly ictericHEPATIC FUNCTION [id number] 04:51:00 Test Item Value Reference Range Interpretation [...] = 34 U/L 6-55 347) Specimen slightly [id number] 04:45:00 Test Item Value Reference Range Interpretation [...] 22.5-36.0 (BEAKER) (test code = 760) PROTHROMBIN [id number] 04:41:00 Test Item Value Reference Range Interpretation Comments PROTIME (BEAKER) (test code = 18.7 seconds 11.7-14.7 H 759) INR (BEAKER) (test code = 370) 1.6 <=5.9 RECOMMENDED COUMADIN/WARFARIN INR THERAPY RANGESSTANDARD DOSE: 2.0 - 3.0 Includes: PROPHYLAXIS forvenous thrombosis, systemic embolization; TREATMENT for venous thrombosis and/or pulmonary embolus.HIGH RISK: Target INR is 2.5-3.5 for patients with mechanical heart valves.LACTIC ACID, VENOUS, WHOLE [id number] 04:34:00 Test Item Value Reference Range Interpretation Comments LACTATE BLOOD VENOUS (2) (BEAKER) 2.6 mmol/L 0.5-2.2 H (test code = 2872) Effective 02/25/2016: Units/Reference Range ChangeNew: 0.5-2.2 mmol/L Previous: 5-20 mg/dLBLOOD GAS, [id number] 04:19:00 Test Item Value Reference Range Interpretation [...] code = 1819) 100.0 % HEMOGLOBIN AND [id number] 02:16:00 Test Item Value Reference Range Interpretation Comments HEMOGLOBIN (BEAKER) (test code = 7.9 GM/DL 13.7-17.5 L 410) HEMATOCRIT (BEAKER) (test code = 22.4 % 40.1-51.0 L 411) [id number] 00:24:00 Test Item Value Reference Range Interpretation Comments POTASSIUM (BEAKER) (test code = 4.1 meq/L 3.5-5.1 379) CALCIUM, [id number] 00:22:00 Test Item Value Reference Range Interpretation Comments CALCIUM IONIZED (BEAKER) (test 1.09 mmol/L 1.12-1.27 L code = 698) PH, BLOOD (BEAKER) (test code = 7.44 1810) HEMOGLOBIN AND [id number] 00:16:00 Test Item Value Reference Range Interpretation Comments HEMOGLOBIN (BEAKER) (test code = 8.1 GM/DL 13.7-17.5 L 410) HEMATOCRIT (BEAKER) (test code = 23.8 % 40.1-51.0 L 411) HEMOGLOBIN AND [id number] 22:26:00 Test Item Value Reference Range Interpretation Comments HEMOGLOBIN (BEAKER) (test code = 8.1 GM/DL 13.7-17.5 L 410) HEMATOCRIT (BEAKER) (test code = 23.7 % 40.1-51.0 L 411) POCT-GLUCOSE [id number] 22:10:00 Test Item Value Reference Range Interpretation Comments POC-GLUCOSE METER 257 mg/dL 70-110 H TESTED AT [facility] 6720 (BEAKER) (test code = [place]E [place] 1538) [address] THROMBOELASTOGRAPH (TEG)2018-07-07 21:16:00 Test Item Value Reference [...] (test 0.0 % 0.0-5.0 code = 1414) [id number] 21:02:00 Test Item Value Reference Range Interpretation Comments POTASSIUM (BEAKER) (test code = 4.1 meq/L 3.5-5.1 379) [id number] 21:02:00 Test Item Value Reference Range Interpretation Comments MAGNESIUM (BEAKER) (test code = 1.7 mg/dL 1.6-2.6 627) [id number] 21:02:00 Test Item Value Reference Range Interpretation Comments PHOSPHORUS (BEAKER) (test code = 4.3 mg/dL 2.3-4.7 604) [id number] 21:02:00 Test Item Value Reference Range Interpretation Comments SODIUM (BEAKER) (test code = 381) 138 meq/L 136-145 CALCIUM, [id number] 20:36:00 Test Item Value Reference Range Interpretation Comments CALCIUM IONIZED (BEAKER) (test 0.98 mmol/L 1.12-1.27 L code = 698) PH, BLOOD (BEAKER) (test code = 7.34 1810) PH, [id number] 20:36:00 Test Item Value Reference Range Interpretation Comments PH ARTERIAL (BEAKER) (test code = 383) 7.34 7.35-7.45 L HEMOGLOBIN AND [id number] 20:30:00 Test Item Value Reference Range Interpretation Comments HEMOGLOBIN (BEAKER) (test code = 7.8 GM/DL 13.7-17.5 L 410) HEMATOCRIT (BEAKER) (test code = 22.8 % 40.1-51.0 L 411) RAD, CHEST, 1 VIEW, NON [id number] 19:08:00Reason for exam:->s/p dialysis catheterShould this be [...] MDReport Verified Date/Time: 07/07/2018 19:08:34 Reading Location: [facility] C013W Consult Reading Room ANG, VISCERAL [id number] 18:27:00from ercpFINAL REPORT Exam: Visceral arteriogram Clinical [...] MDReport Verified Date/Time: 07/07/2018 18:27:51 Reading Location: [facility] Radiology Reading Room HEMOGLOBIN AND [id number] 18:25:00 Test Item Value Reference Range Interpretation Comments HEMOGLOBIN (BEAKER) (test code = 7.6 GM/DL 13.7-17.5 L 410) HEMATOCRIT (BEAKER) (test code = 22.8 % 40.1-51.0 L 411) TROPONIN [id number] 18:16:00 Test Item Value Reference Range Interpretation [...] acute neurological disease, and persistent tachyarrhythmia.BASIC METABOLIC [id number] 17:33:00 Test Item Value Reference Range Interpretation [...] S NOT APPLICABLE FOR DIALYSIS PATIEN TS. [id number] 17:32:00 Test Item Value Reference Range Interpretation Comments MAGNESIUM (BEAKER) (test code = 1.7 mg/dL 1.6-2.6 627) POCT-GLUCOSE [id number] 17:29:00 Test Item Value Reference Range Interpretation Comments POC-GLUCOSE METER 283 mg/dL 70-110 H TESTED AT [facility] 6720 (BEAKER) (test code = [place] 1538) [address] SODIUM, RANDOM [id number] 17:20:00 Test Item Value Reference Range Interpretation Comments SODIUM URINE (BEAKER) (test code = < meq/L 243) Reference Range: No NormalsFIBRIN SOLUBLE [id number] 17:20:00 Test Item Value Reference Range Interpretation Comments FIBRIN SOLUBLE MONOMER (BEAKER) Negative (test code = 1416) ANG, ARTERIAL EMBOLIZATION FOR [id number] 17:15:00Reason for exam:->s/p ERCP with bleedFINAL REPORT History: Upper GI bleed, active bleeding by recent endoscopy. PROCEDURE: Following informed written consent, the patient's right femoral area was prepped and draped in the usual sterile manner. 2% lidocaine was given locally for anesthesia. No conscious sedation wasadministered. Access was gained to the right common femoral artery and a 5 Gambian sheath was placed.A 5 Gambian Alcantar B catheter was placed over a wire into the abdominal aorta and used to carefully select and perform celiac and superior mesenteric arteriograms. 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 Subselective arteriography was performed. The 3 Gambian microcatheter was further advanced into a distal [...] removed and hemostasis achieved using a 5 Gambian mynx closure device. Overall, the patient tolerated [...] reported as (Ka,r): 3073 mGy Signed: [facility] Verified Date/Time: 07/07/2018 17:15:21 Reading Location: [place] [address] Angio Body Reading Room 05:15 PMCREATININE, RANDOM [id number] 17:14:00 Test Item Value Reference Range Interpretation Comments CREATININE URINE (BEAKER) (test 68.4 mg/dL code = 375) Reference Range: No NormalsPROTEIN, RANDOM [id number] 17:14:00 Test Item Value Reference Range Interpretation Comments PROTEIN, URINE (BEAKER) (test code = 33 mg/dL 0-14 H 1569) [id number] 16:58:00 Test Item Value Reference Range Interpretation Comments POTASSIUM (BEAKER) (test code = 4.2 meq/L 3.5-5.1 379) URINALYSIS WITH MICROSCOPIC IF [id number] 16:43:00 Test Item Value Reference Range Interpretation [...] 463) SOURCE(BEAKER) (test code = 2795) URINALYSIS [id number] 16:43:00 Test Item Value Reference Range Interpretation Comments RBC UA (BEAKER) (test code = 519) 1 /HPF WBC UA (BEAKER) (test code = 520) 5 /HPF MUCUS (BEAKER) (test code = 1574) Rare SQUAMOUS EPITHELIAL (BEAKER) (test 1 /HPF code = 516) HEMOGLOBIN AND [id number] 16:37:00 Test Item Value Reference Range Interpretation Comments HEMOGLOBIN (BEAKER) (test code = 8.1 GM/DL 13.7-17.5 L 410) HEMATOCRIT (BEAKER) (test code = 24.6 % 40.1-51.0 L 411) CALCIUM, [id number] 16:23:00 Test Item Value Reference Range Interpretation Comments CALCIUM IONIZED (BEAKER) (test 0.91 mmol/L 1.12-1.27 L code = 698) PH, BLOOD (BEAKER) (test code = 7.30 1810) BASIC METABOLIC [id number] 15:27:00 Test Item Value Reference Range Interpretation [...] S NOT APPLICABLE FOR DIALYSIS PATIEN TS. [id number] 15:26:00 Test Item Value Reference Range Interpretation Comments PHOSPHORUS (BEAKER) (test code = 4.5 mg/dL 2.3-4.7 604) [id number] 15:26:00 Test Item Value Reference Range Interpretation Comments MAGNESIUM (BEAKER) (test code = 1.6 mg/dL 1.6-2.6 627) BASIC METABOLIC [id number] 15:26:00 Test Item Value Reference Range Interpretation [...] DIALYSIS PATIEN TS. LACTIC ACID, ARTERIAL, WHOLE [id number] 15:20:00 Test Item Value Reference Range Interpretation Comments LACTATE BLOOD ARTERIAL (2) 9.1 mmol/L 0.5-2.2 H (BEAKER) (test code = 2874) Effective 02/25/2016: Units/Reference Range ChangeNew: 0.5-2.2 mmol/L Previous: 5-20 mg/[id number] 15:14:00 Test Item Value Reference Range Interpretation Comments FIBRINOGEN LEVEL (BEAKER) (test 158 mg/dl 225-434 L code = 658) [id number] 15:10:00 Test Item Value Reference Range Interpretation [...] 2.5-3.5 for patients with mechanical heart valves.PROTHROMBIN [id number] 15:09:00 Test Item Value Reference Range Interpretation Comments PROTIME (BEAKER) (test code = 22.1 seconds 11.7-14.7 H 759) INR (BEAKER) (test code = 370) 1.9 <=5.9 RECOMMENDED COUMADIN/WARFARIN INR THERAPY RANGESSTANDARD DOSE: 2.0 - 3.0 Includes: PROPHYLAXIS forvenous thrombosis, systemic embolization; TREATMENT for venous thrombosis and/or pulmonary embolus.HIGH RISK: Target INR is 2.5-3.5 for patients with mechanical heart valves.PROTHROMBIN TIME/[id number] 15:08:00 Test Item Value Reference Range Interpretation [...] (BEAKER) (test code = 2801) BLOOD GAS, [id number] 14:58:00 Test Item Value Reference Range Interpretation [...] code = 1819) 40.0 % HEMOGLOBIN AND [id number] 14:56:00 Test Item Value Reference Range Interpretation Comments HEMOGLOBIN (BEAKER) (test code = 8.6 GM/DL 13.7-17.5 L 410) HEMATOCRIT (BEAKER) (test code = 25.7 % 40.1-51.0 L 411) FIBRIN SOLUBLE [id number] 13:26:00 Test Item Value Reference Range Interpretation [...] (test 0.0 % 0.0-5.0 code = 1414) [id number] 12:02:00 Test Item Value Reference Range Interpretation Comments PARTIAL THROMBOPLASTIN TIME 35.0 seconds 22.5-36.0 (BEAKER) (test code = 760) PROTHROMBIN TIME/[id number] 12:01:00 Test Item Value Reference Range Interpretation Comments PROTIME (BEAKER) (test code = 20.2 seconds 11.7-14.7 H 759) INR (BEAKER) (test code = 370) 1.7 <=5.9 RECOMMENDED COUMADIN/WARFARIN INR THERAPY RANGESSTANDARD DOSE: 2.0 - 3.0 Includes: PROPHYLAXIS forvenous thrombosis, systemic embolization; TREATMENT for venous thrombosis and/or pulmonary embolus.HIGH RISK: Target INR is 2.5-3.5 for patients with mechanical heart valves.MD, [id number] 11:51:00Reason for exam:->bleeding s/p ercpFINAL REPORT ERCP, [...] MDReport Verified Date/Time: 07/07/2018 11:51:44 Reading Location: [address] Radiology Reading Room Electronically signedby: EMILE SHIRLEY M.D. on 07/07/2018 11:51 AMLACTIC ACID, ARTERIAL, WHOLE [id number] 11:48:00 Test Item Value Reference Range Interpretation Comments LACTATE BLOOD ARTERIAL (2) 7.4 mmol/L 0.5-2.2 H (BEAKER) (test code = 2874) Effective 02/25/2016: Units/Reference Range ChangeNew: 0.5-2.2 mmol/L Previous: 5-20 mg/[id number] 11:36:00 Test Item Value Reference Range Interpretation [...] of thrombosis is within 95-100% range.BLOOD GAS, [id number] 11:35:00 Test Item Value Reference Range Interpretation [...] code = 1819) 40.0 % HEMOGLOBIN AND [id number] 11:27:00 Test Item Value Reference Range Interpretation Comments HEMOGLOBIN (BEAKER) (test code = 9.2 GM/DL 13.7-17.5 L 410) HEMATOCRIT (BEAKER) (test code = 28.2 % 40.1-51.0 L 411) POCT-GLUCOSE [id number] 11:22:00 Test Item Value Reference Range Interpretation Comments POC-GLUCOSE METER 240 mg/dL 70-110 H TESTED AT [facility] 6720 (BEAKER) (test code = [place] 1538) [address] RAD, CHEST, 1 VIEW, NON [id number] 10:14:00Reason for exam:- >intubationShould this be performed [...] MDReport Verified Date/Time: 07/07/2018 10:14:17 Reading Location: [facility] Radiology Reading Room BASIC METABOLIC PANEL 2018-07-07 [...] S NOT APPLICABLE FOR DIALYSIS PATIEN TS. [id number] 09:38:00 Test Item Value Reference Range Interpretation Comments FIBRINOGEN LEVEL (BEAKER) (test 146 mg/dl 225-434 L code = 658) HEMOGLOBIN AND [id number] 09:19:00 Test Item Value Reference Range Interpretation Comments HEMOGLOBIN (BEAKER) (test code = 7.7 GM/DL 13.7-17.5 L 410) HEMATOCRIT (BEAKER) (test code = 23.4 % 40.1-51.0 L 411) BLOOD GAS, [id number] 09:18:00 Test Item Value Reference Range Interpretation [...] (BEAKER) (test code = 1819) 40.0 % [id number] 08:27:00 Test Item Value Reference Range Interpretation Comments PARTIAL THROMBOPLASTIN TIME 37.9 seconds 22.5-36.0 H (BEAKER) (test code = 760) PROTHROMBIN [id number] 08:26:00 Test Item Value Reference Range Interpretation Comments PROTIME (BEAKER) (test code = 23.5 seconds 11.7-14.7 H 759) INR (BEAKER) (test code = 370) 2.1 <=5.9 RECOMMENDED COUMADIN/WARFARIN INR THERAPY RANGESSTANDARD DOSE: 2.0 - 3.0 Includes: PROPHYLAXIS forvenous thrombosis, systemic embolization; TREATMENT for venous thrombosis and/or pulmonary embolus.HIGH RISK: Target INR is 2.5-3.5 for patients with mechanical heart valves.HEMOGLOBIN AND [id number] 08:08:00 Test Item Value Reference Range Interpretation Comments HEMOGLOBIN (BEAKER) (test code = 7.7 GM/DL 13.7-17.5 L 410) HEMATOCRIT (BEAKER) (test code = 23.3 % 40.1-51.0 L 411) BASIC METABOLIC [id number] 06:32:00 Test Item Value Reference Range Interpretation [...] APPLICABLE FOR DIALYSIS PATIEN TS. Specimen slightly [id number] 06:21:00 Test Item Value Reference Range Interpretation Comments MAGNESIUM (BEAKER) (test code = 2.0 mg/dL 1.6-2.6 627) HEPATIC FUNCTION [id number] 06:21:00 Test Item Value Reference Range Interpretation [...] 347) Specimen slightly ictericLACTIC ACID, VENOUS, WHOLE [id number] 06:16:00 Test Item Value Reference Range Interpretation Comments LACTATE BLOOD VENOUS (2) (BEAKER) 2.2 mmol/L 0.5-2.2 (test code = 2872) Effective 02/25/2016: Units/Reference Range ChangeNew: 0.5-2.2 mmol/L Previous: 5-20 mg/dLSpecimen slightly ictericHEMOGLOBIN AND [id number] 06:06:00 Test Item Value Reference Range Interpretation Comments HEMOGLOBIN (BEAKER) (test code = 10.2 GM/DL 13.7-17.5 L 410) HEMATOCRIT (BEAKER) (test code = 31.7 % 40.1-51.0 L 411) LACTIC ACID, VENOUS, WHOLE [id number] 03:14:00 Test Item Value Reference Range Interpretation Comments LACTATE BLOOD VENOUS (2) (BEAKER) 1.3 mmol/L 0.5-2.2 (test code = 2872) Effective 02/25/2016: Units/Reference Range ChangeNew: 0.5-2.2 mmol/L Previous: 5-20 mg/dLSpecimen slightly ictericHEMOGLOBIN AND [id number] 03:08:00 Test Item Value Reference Range Interpretation Comments HEMOGLOBIN (BEAKER) (test code = 11.2 GM/DL 13.7-17.5 L 410) HEMATOCRIT (BEAKER) (test code = 34.8 % 40.1-51.0 L 411) HEMOGLOBIN AND [id number] 00:22:00 Test Item Value Reference Range Interpretation Comments HEMOGLOBIN (BEAKER) (test code = 6.8 GM/DL 13.7-17.5 L 410) HEMATOCRIT (BEAKER) (test code = 21.6 % 40.1-51.0 L 411) LACTIC ACID, VENOUS, WHOLE [id number] 23:30:00 Test Item Value Reference Range Interpretation Comments LACTATE BLOOD VENOUS 1.2 mmol/L 0.5-2.2 Specime n slightly (2) (BEAKER) (test hemolyzed code = 2872) Effective 02/25/2016: Units/Reference Range ChangeNew: 0.5-2.2 mmol/L Previous: 5-20 mg/dLSpecimen moderately [id number] 23:08:00 Test Item Value Reference Range Interpretation Comments PROCALCITONIN (BEAKER) (test code 0.48 ng/mL <0.05 H = 3036) SEPSIS RISK (ng/mL)Low: 0.05-0.50Intermediate: 0.51-2.00High: >=2.01RAD, CHEST, 1 VIEW, NON [id number] 23:07:00Reason for exam:->abd painShould this be performed [...] MDReport Verified Date/Time: 07/06/2018 23:07:59 Reading Location: [address] Consult Reading Room [id number] 22:48:00 Test Item Value Reference Range Interpretation Comments LIPASE (BEAKER) (test code = 749) > U/L 8-78 H Specimen moderately [id number] 22:42:00 Test Item Value Reference Range Interpretation Comments MAGNESIUM (BEAKER) (test code = 1.9 mg/dL 1.6-2.6 627) COMPREHENSIVE METABOLIC [id number] 22:42:00 Test Item Value Reference Range Interpretation [...] Specimen moderately ictericCBC W/PLT COUNT & AUTO [id number] 22:23:00 Test Item Value Reference Range Interpretation [...] 0-1 PERCENT (BEAKER) (test code = 2801) [id number] 22:20:00 Test Item Value Reference Range Interpretation Comments PARTIAL THROMBOPLASTIN TIME 31.2 seconds 22.5-36.0 (BEAKER) (test code = 760) PROTHROMBIN TIME/[id number] 22:19:00 Test Item Value Reference Range Interpretation Comments PROTIME (BEAKER) (test code = 17.0 seconds 11.7-14.7 H 759) INR (BEAKER) (test code = 370) 1.4 <=5.9 RECOMMENDED COUMADIN/WARFARIN INR THERAPY RANGESSTANDARD DOSE: 2.0 - 3.0 Includes: PROPHYLAXIS forvenous thrombosis, systemic embolization; TREATMENT for venous thrombosis and/or pulmonary embolus.HIGH RISK: Target INR is 2.5-3.5 for patients with mechanical heart valves.POCT-LACTIC ACID, [id number] 22:15:00 Test Item Value Reference Range Interpretation Comments POC-LACTIC ACID, 1.3 mmol/L 0.9-1.7 TESTED AT [place] [address] VENOUS (BEAKER) (test [facility] code = 2805) [address] POCT-BLOOD GASES, [id number] 22:15:00 Test Item Value Reference Range Interpretation Comments TEMP, CELSIUS-POC 37.0 (BEAKER) (test code = 1834) FIO2-POC (BEAKER) TESTED AT [place] [address] (test code = 1835) [facility] [address] PH, VENOUS-POC 7.388 7.320-7.420 (BEAKER) (test code [...] H VENOUS-POC (BEAKER) (test code = 1847) [id number] 22:15:00 Test Item Value Reference Range Interpretation Comments POC-SODIUM (BEAKER) 136 meq/L 135-148 TESTED A T [place] [address] (test code = 1542) [facility] [address] [id number] 22:15:00 Test Item Value Reference Range Interpretation Comments POC-POTASSIUM 4.3 meq/L 3.6-5.5 TESTED AT [place] [address] (BEAKER) (test code [facility] [address] = 1540) [id number] 22:15:00 Test Item Value Reference Range Interpretation Comments POC-GLUCOSE ([facility]) 147 mg/dL 70-110 H TESTED AT [place] [address] (test code = 1855) [place] [address] POCT-CALCIUM [id number] 22:15:00 Test Item Value Reference Range Interpretation Comments POC-CALCIUM IONIZED 1.10 mmol/L 1.12-1.27 L TESTED A T [place] [address] ([facility]) (test code = [facility] 1536) [address] [id number] 22:15:00 Test Item Value Reference Range Interpretation Comments POC-HEMATOCRIT 38 % 40-50 L TESTED AT [place] [address] ([facility]) (test code = [facility] [address]57) [id number] 22:15:00 Test Item Value Reference Range Interpretation Comments POC-HEMOGLOBIN 12.9 g/dL 13.0-16.8 L TESTED AT [place] [address] ([facility]) (test code [facility] = 1856) [address] AT [place] [address] [place] [address] POCT-GLUCOSE [id number] 21:38:00 Test Item Value Reference Range Interpretation Comments POC-GLUCOSE METER 138 mg/dL 70-110 H TESTED AT [place] [address] ([facility]) (test code = [facility] 1538) [address] POCT-GLUCOSE [id number] 19:35:00 Test Item Value Reference Range Interpretation Comments POC-GLUCOSE METER 116 mg/dL 70-110 H TESTED AT [place] [address] ([facility]) (test code = [facility] 1538) [address] PROTHROMBIN [id number] 18:18:00 Test Item Value Reference Range Interpretation Comments PROTIME ([facility]) (test code = 15.5 seconds 11.7-14.7 H 759) INR ([facility]) (test code = 370) 1.2 <=5.9 RECOMMENDED COUMADIN/WARFARIN INR THERAPY RANGESSTANDARD DOSE: 2.0 - 3.0 Includes: PROPHYLAXIS forvenous thrombosis, systemic embolization; TREATMENT for venous thrombosis and/or pulmonary embolus.HIGH RISK: Target INR is 2.5-3.5 for patients with mechanical heart valves.[id number] 18:18:00 Test Item Value Reference Range Interpretation Comments PARTIAL THROMBOPLASTIN TIME 36.5 seconds 22.5-36.0 H (BEAKER) (test code = 760) CBC W/PLT COUNT & AUTO [id number] 18:11:00 Test Item Value Reference Range Interpretation [...] PERCENT (BEAKER) (test code = 2801) [place], [id number] 17:27:00Reason for exam:->cbd stonesFINAL REPORT Fluoroscopy. History: Intraoperative. Findings: Radiologist was not present for the exam. Fluoroscopy was not performed by the undersigned. Please see operative/endoscopy report for details. Fluoroscopy Time: 2.5 min.One spot image was saved. IMPRESSION:Intraoperative fluoroscopy. Please see operative report for details. Signed: Steve Hernandez Verified Date/Time: 07/06/2018 17:27:55 Reading Location: [facility] Diagnostic Imaging Reading Room [place] [address] POCT-GLUCOSE [id number] 12:00:00 Test Item Value Reference Range Interpretation Comments POC-GLUCOSE METER 100 mg/dL 70-110 TESTED AT [facility] 6720 (BEAKER) (test code = GENEVIEVE Bruce [facility] 1538) [address] POCT-GLUCOSE [id number] 08:03:00 Test Item Value Reference Range Interpretation Comments POC-GLUCOSE METER 116 mg/dL 70-110 H TESTED AT [facility] 6720 (BEAKER) (test code = GENEVIEVE Bruce [facility] 1538) [address] [id number] 07:04:00 Test Item Value Reference Range Interpretation Comments MAGNESIUM (BEAKER) (test code = 2.3 mg/dL 1.6-2.6 627) BASIC METABOLIC [id number] 07:04:00 Test Item Value Reference Range Interpretation [...] DIALYSIS PATIEN TS. Specimen moderately ictericHEPATIC FUNCTION [id number] 07:04:00 Test Item Value Reference Range Interpretation [...] 57 U/L 6-55 H 347) Specimen moderately [id number] 03:15:00 Test Item Value Reference Range Interpretation Comments MAGNESIUM (BEAKER) 2.5 mg/dL 1.6-2.6 Specimen slightly (test code = 627) hemolyzed BASIC METABOLIC [id number] 03:15:00 Test Item Value Reference Range Interpretation [...] DIALYSIS PATIEN TS. Specimen moderately ictericHEPATIC FUNCTION [id number] 03:15:00 Test Item Value Reference Range Interpretation [...] code = 347) hemolyzed Specimen moderately ictericPOCT-GLUCOSE [id number] 22:02:00 Test Item Value Reference Range Interpretation Comments POC-GLUCOSE METER 140 mg/dL 70-110 H TESTED AT [facility] 6720 ([facility]) (test code = GENEVIEVE [place] 1538) [address] POCT-GLUCOSE [id number] 16:27:00 Test Item Value Reference Range Interpretation Comments POC-GLUCOSE METER 103 mg/dL 70-110 TESTED AT [facility] 6720 (BEAKER) (test code = [facility] 1538) [id number] POCT-GLUCOSE [id number] 11:55:00 Test Item Value Reference Range Interpretation Comments POC-GLUCOSE METER 123 mg/dL 70-110 H TESTED AT [facility] 6720 (BEAKER) (test code = [facility] 1538) [id number] POCT-GLUCOSE [id number] 08:13:00 Test Item Value Reference Range Interpretation Comments POC-GLUCOSE METER 116 mg/dL 70-110 H TESTED AT [facility] 6720 (BEAKER) (test code = [facility] 1538) [id number] 07:53:00 Test Item Value Reference Range Interpretation Comments MAGNESIUM (BEAKER) (test code = 1.9 mg/dL 1.6-2.6 627) BASIC METABOLIC [id number] 07:53:00 Test Item Value Reference Range Interpretation [...] DIALYSIS PATIEN TS. Specimen slightly ictericHEPATIC FUNCTION [id number] 07:53:00 Test Item Value Reference Range Interpretation [...] 12 U/L 6-55 347) Specimen slightly ictericPOCT-GLUCOSE [id number] 20:53:00 Test Item Value Reference Range Interpretation Comments POC-GLUCOSE METER 168 mg/dL 70-110 H TESTED AT [facility] 6720 (BEAKER) (test code = GENEVIEVE Bruce BRAEDEN DOWNING 1538) [id number] 17:12:00 Test Item Value Reference Range Interpretation Comments MAGNESIUM (BEAKER) (test code = 2.1 mg/dL 1.6-2.6 627) BASIC METABOLIC [id number] 17:12:00 Test Item Value Reference Range Interpretation [...] NOT APPLICABLE FOR DIALYSIS PATIEN TS. POCT-GLUCOSE [id number] 17:00:00 Test Item Value Reference Range Interpretation Comments POC-GLUCOSE METER 138 mg/dL 70-110 H TESTED AT [facility] 6720 [facility] (test code = [place] 1538) [address] POCT-GLUCOSE [id number] 12:09:00 Test Item Value Reference Range Interpretation Comments POC-GLUCOSE METER 111 mg/dL 70-110 H TESTED AT [facility] 6720 (ASIM) (test code = [place] 1538) [address] POCT-GLUCOSE [id number] 07:30:00 Test Item Value Reference Range Interpretation Comments POC-GLUCOSE METER 102 mg/dL 70-110 TESTED AT [place] [address] [facility] (test code = GENEVIEVE Bruce [facility] 1538) [address] U/S, ABDOMINAL, [id number] 07:27:00Please perform with doppler to evaluate for [...] MDReport Verified Date/Time: 07/04/2018 07:27:18 Reading Location: [facility] P006J Ultrasound Reading Room [id number] 07:12:00 Test Item Value Reference Range Interpretation Comments MAGNESIUM (BEAKER) 1.8 mg/dL 1.6-2.6 Specimen slightly (test code = 627) hemolyzed BASIC METABOLIC [id number] 07:12:00 Test Item Value Reference Range Interpretation [...] APPLICABLE FOR DIALYSIS PATIEN TS. HEPATIC FUNCTION [id number] 07:12:00 Test Item Value Reference Range Interpretation [...] slightly (test code = 347) hemolyzed PROTHROMBIN [id number] 07:11:00 Test Item Value Reference Range Interpretation Comments PROTIME (BEAKER) (test code = 16.4 seconds 11.7-14.7 H 759) INR (BEAKER) (test code = 370) 1.3 <=5.9 RECOMMENDED COUMADIN/WARFARIN INR THERAPY RANGESSTANDARD DOSE: 2.0 - 3.0 Includes: PROPHYLAXIS forvenous thrombosis, systemic embolization; TREATMENT for venous thrombosis and/or pulmonary embolus.HIGH RISK: Target INR is 2.5-3.5 for patients with mechanical heart valves.POCT-GLUCOSE [id number] 20:11:00 Test Item Value Reference Range Interpretation Comments POC-GLUCOSE METER 156 mg/dL 70-110 H TESTED AT [facility] 6720 (BEAKER) (test code = [place]E [place] 1538) [address] [id number] 17:51:00 Test Item Value Reference Range Interpretation Comments MAGNESIUM (BEAKER) (test code = 1.9 mg/dL 1.6-2.6 627) BASIC METABOLIC [id number] 17:51:00 Test Item Value Reference Range Interpretation Comments SODIUM (BEAKER) 139 meq/L 136-145 (test code = 381) POTASSIUM (BEAKER) 3.7 meq/L 3.5-5.1 (test code = 379) CHLORIDE (BEAKER) 98 meq/L 98-107 (test code = 382) CO2 (BEAKER) (test 30 meq/L 22-29 H code = 355) BLOOD UREA NITROGEN 23 mg/dL 7-21 H ([facility]) (test code = 354) CREATININE (AKER) 1.31 mg/dL 0.57-1.25 H (test code = 358) GLUCOSE RANDOM 144 mg/dL 70-105 H ([facility]) (test code = 652) CALCIUM (VANESSAAKER) 10.1 mg/dL 8.4-10.2 (test code = 697) EGFR ([facility]) (test 57 mL/min/1.73 ESTIMA KIMBER GFR IS code = 1092) sq m NOT ACCURATE CREATININE CLEARANCE IN PREDICTING GLOMERULAR FILTRATION RATE . ESTIMATED GFR I S NOT APPLICABLE FOR DIALYSIS PATIEN TS. POCT-GLUCOSE [id number] 16:12:00 Test Item Value Reference Range Interpretation Comments POC-GLUCOSE METER 89 mg/dL 70-110 TESTED AT [facility] 6720 ([facility]) (test code = [place] [address] 1538) U/S, DUPLEX, [id number] 15:18:00Please perform with doppler to evaluate for [...] Hernandezeport Verified Date/Time: 07/03/2018 15:18:31 Reading Location: [facility] P006J Ultrasound Reading Room POCT-GLUCOSE [id number] 12:46:00 Test Item Value Reference Range Interpretation Comments POC-GLUCOSE METER 102 mg/dL 70-110 TESTED AT [facility] 6720 (BEAKER) (test code = GENEVIEVE [facility] 1538) [address] [id number] 07:10:00 Test Item Value Reference Range Interpretation Comments PHOSPHORUS (BEAKER) (test code = 3.7 mg/dL 2.3-4.7 604) [id number] 07:10:00 Test Item Value Reference Range Interpretation Comments MAGNESIUM (BEAKER) (test code = 1.8 mg/dL 1.6-2.6 627) BASIC METABOLIC [id number] 07:10:00 Test Item Value Reference Range Interpretation [...] APPLICABLE FOR DIALYSIS PATIEN TS. HEPATIC FUNCTION [id number] 07:10:00 Test Item Value Reference Range Interpretation [...] code = 14 U/L 6-55 347) POCT-GLUCOSE [id number] 07:02:00 Test Item Value Reference Range Interpretation Comments POC-GLUCOSE METER 112 mg/dL 70-110 H TESTED AT [facility] 6720 (BEAKER) (test code = GENEVIEVE Bruce [facility] 1538) [address] POCT-GLUCOSE [id number] 21:51:00 Test Item Value Reference Range Interpretation Comments POC-GLUCOSE METER 147 mg/dL 70-110 H TESTED AT [facility] 6720 (BEAKER) (test code = [facility] [place] 1538) [address] [id number] 20:05:00 Test Item Value Reference Range Interpretation Comments MAGNESIUM (BEAKER) 2.1 mg/dL 1.6-2.6 Specimen slightly (test code = 627) hemolyzed BASIC METABOLIC [id number] 20:05:00 Test Item Value Reference Range Interpretation [...] NOT APPLICABLE FOR DIALYSIS PATIEN TS. POCT-GLUCOSE [id number] 17:05:00 Test Item Value Reference Range Interpretation Comments POC-GLUCOSE METER 111 mg/dL 70-110 H TESTED AT [place] [address] ([facility]) (test code = [facility] 1538) [address] POCT-GLUCOSE [id number] 11:34:00 Test Item Value Reference Range Interpretation Comments POC-GLUCOSE METER 142 mg/dL 70-110 H TESTED AT [place] [address] ([facility]) (test code = [facility] 1538) [address] POCT-GLUCOSE [id number] 07:43:00 Test Item Value Reference Range Interpretation Comments POC-GLUCOSE METER 110 mg/dL 70-110 TESTED AT [place] [address] ([facility]) (test code = [facility] 1538) [address] [id number] 07:13:00 Test Item Value Reference Range Interpretation Comments PHOSPHORUS (BEAKER) (test code = 4.3 mg/dL 2.3-4.7 604) [id number] 07:13:00 Test Item Value Reference Range Interpretation Comments MAGNESIUM (BEAKER) (test code = 2.0 mg/dL 1.6-2.6 627) BASIC METABOLIC [id number] 07:13:00 Test Item Value Reference Range Interpretation [...] APPLICABLE FOR DIALYSIS PATIEN TS. HEPATIC FUNCTION [id number] 07:13:00 Test Item Value Reference Range Interpretation [...] (test code = 11 U/L 6-55 347) [id number] 07:13:00 Test Item Value Reference Range Interpretation Comments LIPASE (BEAKER) (test code = 749) 21 U/L 8-78 B-TYPE NATRIURETIC FACTOR (BNP)2018-07-02 07:13:00 Test Item Value Reference Range Interpretation Comments B-TYPE NATRIURETIC PEPTIDE (BEAKER) 689 pg/mL 0-100 H (test code = 700) POCT-GLUCOSE [id number] 22:15:00 Test Item Value Reference Range Interpretation Comments POC-GLUCOSE METER 124 mg/dL 70-110 H TESTED AT [place] [address] ([facility]) (test code = GENEVIEVE Bruce [facility] 1538) [address] RAD, CHEST, 1 VIEW, NON [id number] 18:03:00Reason for exam:->chest painShould this be performed at the bedside?->YesFINAL REPORT AP chest HISTORY: Chest pain COMPARISON: None IMPRESSION:Status post median sternotomy. No acute skeletal findings. Cardiomegaly. Diffuse interstitial edema. Moderate right effusion. No pneumothorax. Signed: Emile Shirleyeport Verified Date/Time: 07/01/2018 18:03:03 Reading Location: [address] [place] Body Reading Room POCT-GLUCOSE [id number] 17:04:00 Test Item Value Reference Range Interpretation Comments POC-GLUCOSE METER 146 mg/dL 70-110 H TESTED AT [place] [address] ([facility]) (test code = GENEVIEVE Bruce [facility] 1538) [address] POCT-GLUCOSE [id number] 11:52:00 Test Item Value Reference Range Interpretation Comments POC-GLUCOSE METER 163 mg/dL 70-110 H TESTED AT [place] [address] ([facility]) (test code = GENEVIEVE Bruce [facility] 1538) [address] HEMOGLOBIN [id number] 08:13:00 Test Item Value Reference Range Interpretation Comments HEMOGLOBIN A1C ([facility]) (test code = 7.1 % 4.3-6.1 H 368) POCT-GLUCOSE [id number] 08:00:00 Test Item Value Reference Range Interpretation Comments POC-GLUCOSE METER 113 mg/dL 70-110 H TESTED AT [place] [address] ([facility]) (test code = GENEVIEVE Bruce [facility] 1538) [address] TROPONIN [id number] 02:30:00 Test Item Value Reference Range Interpretation Comments TROPONIN I ([facility]) (test code = 0.03 ng/mL 0.00-0.03 397) [...] acute neurological disease, and persistent tachyarrhythmia.BASIC METABOLIC [id number] 02:24:00 Test Item Value Reference Range Interpretation [...] APPLICABLE FOR DIALYSIS PATIEN TS. HEPATIC FUNCTION [id number] 02:24:00 Test Item Value Reference Range Interpretation [...] Specimen slightly (test code = 347) hemolyzed [id number] 02:23:00 Test Item Value Reference Range Interpretation Comments PHOSPHORUS (BEAKER) (test code = 4.4 mg/dL 2.3-4.7 604) [id number] 02:23:00 Test Item Value Reference Range Interpretation Comments MAGNESIUM (BEAKER) (test code = 1.8 mg/dL 1.6-2.6 627) BASIC METABOLIC [id number] 02:23:00 Test Item Value Reference Range Interpretation [...] NOT APPLICABLE FOR DIALYSIS PATIEN TS. LIPID [id number] 02:23:00 Test Item Value Reference Range Interpretation [...] Borderline 130-159 High 160-189 Very High >=190POCT-GLUCOSE [id number] 23:01:00 Test Item Value Reference Range Interpretation Comments POC-GLUCOSE METER 143 mg/dL 70-110 H TESTED AT [place] [address] ([facility]) (test code = [facility] 1538) [address] TSH/FREE T4 IF [id number] 18:47:00 Test Item Value Reference Range Interpretation Comments THYROID STIMULATING HORMONE 3.50 uIU/mL 0.35-4.94 ([facility]) (test code = 772) TROPONIN [id number] 18:35:00 Test Item Value Reference Range Interpretation [...] acidosis, acute neurological disease, and persistent tachyarrhythmia.POCT-GLUCOSE [id number] 18:18:00 Test Item Value Reference Range Interpretation Comments POC-GLUCOSE METER 149 mg/dL 70-110 H TESTED AT [place] [address] ([facility]) (test code = [facility] 1538) [address] HEMOGLOBIN AND [id number] 18:08:00 Test Item Value Reference Range Interpretation Comments HEMOGLOBIN ([facility]) (test code = 15.8 GM/DL 13.7-17.5 410) HEMATOCRIT ([facility]) (test code = 49.9 % 40.1-51.0 411) POCT-GLUCOSE [id number] 15:23:00 Test Item Value Reference Range Interpretation Comments POC-GLUCOSE METER 158 mg/dL 70-110 H TESTED AT [place] [address] ([facility]) (test code = [facility] 1538) [address]
[2022-02-28] MEDS ORDERED: ASPIRIN 81 MG CHEWABLE TABLET ONE (12:14)
[2022-02-28] MEDS ORDERED: NA CHLORIDE 0.9% 500 ML ONE (12:14)
[2022-02-28 12:20] LABS: Absolute Lymphocytes (CBC) 1.6 K/uL (0.7-4.9); Hematocrit 50.1 % (39.6-49.0); Lymphocytes % 28.9 % (15.3-44.8); MPV 7.7 fL (7.6-11.3); RBC Red Blood Cell Count 5.53 M/uL (4.33-5.43)
[2022-02-28 12:22] LABS: Protime INR 1.1
[2022-02-28] MEDS ORDERED: ONDANSETRON 4 MG/2 ML VIAL ONE (12:43)
[2022-02-28] MEDS ORDERED: MORPHINE 4 MG/ML SYR ONE (12:43)
[2022-02-28] MEDS ORDERED: MORPHINE 2 MG/ML SYR ONE (12:44)
[2022-02-28 12:51] LABS: Albumin 3.9 g/dL (3.4-5.0); Bilirubin Direct 0.3 mg/dL (0-0.2); Bilirubin Total 0.9 mg/dL (0.2-1.0); Magnesium 1.8 mg/dL (1.8-2.4); Potassium 3.6 mmol/L (3.5-5.1); Protein, Total 7.2 g/dL (6.4-8.2); Troponin High Sensitivity 27.1 pg/mL (<58.9)
--- NOTE | 2022-02-28 13:27 | ER ---
Nurse's Notes [facility] [place] Name: Chicho Weldon Age: 61 yrs Sex: Male : 1960 Arrival Date: 02/28/2022 Time: 11:50 Bed 4 Private MD: Diagnosis: Chest pain, unspecified;Abdominal tenderness;Vomiting;UTI/ Urinary tract infection, site not specified Presentation: 02/28 11:50 Chief complaint: Patient states: pt presented to ED reporting CP, N/V and SOB. [facility] box given PT 4 zofran, 3 nitro, 325 asa. Coronavirus screen: Vaccine status: Patient reports being unvaccinated. Ebola Screen: Patient denies travel to an Ebola-affected area in the 21 days before illness onset. Initial Sepsis Screen: Does the patient meet any 2 criteria? No. Patient's initial sepsis screen is negative. Does the patient have a suspected source of infection? No. Patient's initial sepsis screen is negative. Risk Assessment: Do you want to hurt yourself or someone else? Patient reports no desire to harm self or others. Onset of symptoms was February 28, 2022. 11:50 Method Of Arrival: EMS: [facility] box 11:50 Acuity: AMANDA 3 box Triage Assessment: 11:56 General: Appears in no apparent distress. General: Behavior is calm, cooperative. Pain: box Denies pain. Historical: - Allergies: 11:56 Iodine; box 11:56 SEAFOOD; box - PMHx: 11:56 CABG; Colitis; diabetes- resolved; gastric cardiac distress; Kidney stones; box Hypertension; pleurasy; Myocardial infarction; prostate hypertrophy; syncope; vasovagal; - Immunization history:: Adult Immunizations up to date. - Social history:: Smoking status: Patient denies any tobacco usage or history of. - Family history:: not pertinent. Screenin:09 Abuse screen: Denies threats or abuse. Denies injuries from another. Nutritional box screening: No deficits noted. Fall Risk None identified. 12:11 Tuberculosis screening: No symptoms or risk factors identified. box Assessment: 12:09 General: Appears in no apparent distress. Behavior is calm, cooperative. Pain: box Complains of pain in chest. Cardiovascular: Reports chest pain, nausea, shortness of breath, vomiting. Vital Signs: 11:50 BP 160 / 109; Pulse 60; Resp 18; Temp 97.6; Pulse Ox 98% on R/A; Weight 113.4 kg; box Height 5 ft. 6 in. (167.64 cm); 13:56 BP 153 / 90; Pulse 71; Resp 18; Pulse Ox 96% on R/A; box 11:50 Body Mass Index 40.35 (113.40 kg, 167.64 cm) box ED Course: 11:50 Patient arrived in ED. box 11:56 Triage completed. box 11:56 Arm band placed on. box 11:57 Yobani Wasserman MD is Attending Physician. paulino 12:06 Inserted saline lock: 22 gauge in right wrist, using aseptic technique. Blood collected.zm 12:09 Patient has correct armband on for positive identification. Bed in low position. box 12:09 No provider procedures requiring assistance completed. Inserted. box 12:13 SARS-COV-2 RT PCR (Document "Date of Onset" if Symptomatic) Sent. zm 12:13 Troponin HS Sent. zm 12:13 PT-INR Sent. zm 12:13 NT PRO-BNP Sent. zm 12:13 Magnesium Sent. zm 12:13 LFT's Sent. zm 12:13 CBC with Diff Sent. zm 12:13 Basic Metabolic Panel Sent. zm 12:18 XRAY Chest (1 view) In Process Unspecified. EDMS 12:38 Inés Guaman, RN is Primary Nurse. box 12:44 SARS-COV-2 RT PCR (Document "Date of Onset" if Symptomatic) Sent. eb 12:45 Troponin HS Sent. zm 12:45 NT PRO-BNP Sent. zm 12:45 Magnesium Sent. zm 12:45 LFT's Sent. zm 12:45 Basic Metabolic Panel Sent. zm 13:23 CT Chest Abdomen Pelvis W/O Contrast In Process Unspecified. EDMS 13:24 Josh Gilliland MD is Hospitalizing Provider. paulino 17:04 Urine Culture Sent. box 17:04 Troponin High Sensitivity: 5PM Sent. box 18:04 Patient admitted, IV remains in place. box Administered Medications: 12:12 Not Given (Other Intervention Used; received in EMS ): Aspirin Chewable Tablet 324 mg ww PO once; 81 mg tablets x 4 12:12 Drug: NS 0.9% 1000 ml Route: IV; Rate: 125 ml/hr; Site: right hand; ww 13:14 Drug: morphine 2 mg Route: IVP; Site: right hand; box 13:14 Drug: Zofran (Ondansetron) 4 mg Route: IVP; Site: right hand; box 13:15 Follow up: Response: No adverse reaction box 14:33 Drug: Lovenox (enoxaparin) 100 mg Route: Sub-Q; Site: right lower abdomen; box 17:25 Follow up: Response: No adverse reaction box 17:04 Drug: Rocephin (cefTRIAXone) 1 grams Route: IV; Rate: per protocol; Site: right hand; Outcome: 13:26 Decision to Hospitalize by Provider. paulino 18:04 Admitted to Med/surg box 18:04 Condition: good 18:04 Instructed on the need for admit. 18:04 Patient left the ED. box Signatures: Dispatcher [employer] Yobani Martinez MD MD cha Botello, Elizabeth eb Wood, Whitney, RN RN ww Au-Stager, Heather, RN RN ha Martinez, Zaina zm
--- NOTE | 2022-02-28 13:27 | EDPHYS ---
Physician Documentation [facility] Name: Chicho Weldon Age: 61 yrs Sex: Male : 1960 Arrival Date: 02/28/2022 Time: 11:50 Bed 4 Private MD: ED Physician Yobani Wasserman HPI: 02/28 13:13 This 61 yrs old Male presents to ER via EMS with complaints of cp, abd pain paulino and vomiting. 13:13 The patient or guardian reports chest pain that is located primarily in the epigastric paulino area, anterior chest wall. Onset: just prior to arrival. The patient presents with abdominal pain in the left upper quadrant, in the left lower quadrant. Onset: The symptoms/episode began/occurred just prior to arrival. The patient presents to the emergency department with nausea, vomiting, that is continuous, that is intermittent. Onset: The symptoms/episode began/occurred just prior to arrival, this morning. Possible causes: unknown. The symptoms are aggravated by nothing. The symptoms are alleviated by nothing. Historical: - Allergies: 11:56 Iodine; box 11:56 SEAFOOD; obx - PMHx: 11:56 CABG; Colitis; diabetes- resolved; gastric cardiac distress; Kidney stones; box Hypertension; pleurasy; Myocardial infarction; prostate hypertrophy; syncope; vasovagal; - Immunization history:: Adult Immunizations up to date. - Social history:: Smoking status: Patient denies any tobacco usage or history of. - Family history:: not pertinent. ROS: 13:13 Constitutional: Negative for fever, chills, and weight loss, Eyes: Negative for injury, paulino pain, redness, and discharge, ENT: Negative for injury, pain, and discharge, Neck: Negative for injury, pain, and swelling, Cardiovascular: Negative for chest pain, palpitations, and edema, Respiratory: Negative for shortness of breath, cough, wheezing, and pleuritic chest pain, Back: Negative for injury and pain, : Negative for injury, bleeding, discharge, and swelling, MS/Extremity: Negative for injury and deformity, Skin: Negative for injury, rash, and discoloration, Neuro: Negative for headache, weakness, numbness, tingling, and seizure, Psych: Negative for depression, anxiety, suicide ideation, homicidal ideation, and hallucinations, Allergy/Immunology: Negative for hives, rash, and allergies, Endocrine: Negative for neck swelling, polydipsia, polyuria, polyphagia, and marked weight changes, Hematologic/Lymphatic: Negative for swollen nodes, abnormal bleeding, and unusual bruising. 13:13 Abdomen/GI: Positive for abdominal pain, nausea and vomiting, nausea, vomiting. Exam: 13:13 Constitutional: This is a well developed, well nourished patient who is awake, alert, paulino and in no acute distress. Head/Face: Normocephalic, atraumatic. Eyes: Pupils equal round and reactive to light, extra-ocular motions intact. Lids and lashes normal. Conjunctiva and sclera are non-icteric and not injected. Cornea within normal limits. Periorbital areas with no swelling, redness, or edema. ENT: Nares patent. No nasal discharge, no septal abnormalities noted. Tympanic membranes are normal and external auditory canals are clear. Oropharynx with no redness, swelling, or masses, exudates, or evidence of obstruction, uvula midline. Mucous membranes moist. Neck: Trachea midline, no thyromegaly or masses palpated, and no cervical lymphadenopathy. Supple, full range of motion without nuchal rigidity, or vertebral point tenderness. No Meningismus. Chest/axilla: Normal chest wall appearance and motion. Nontender with no deformity. No lesions are appreciated. Cardiovascular: Regular rate and rhythm with a normal S1 and S2. No gallops, murmurs, or rubs. Normal PMI, no JVD. No pulse deficits. Respiratory: Lungs have equal breath sounds bilaterally, clear to auscultation and percussion. No rales, rhonchi or wheezes noted. No increased work of breathing, no retractions or nasal flaring. Back: No spinal tenderness. No costovertebral tenderness. Full range of motion. Male : Normal genitalia with no discharge or lesions. Skin: Warm, dry with normal turgor. Normal color with no rashes, no lesions, and no evidence of cellulitis. MS/ Extremity: Pulses equal, no cyanosis. Neurovascular intact. Full, normal range of motion. Neuro: Awake and alert, GCS 15, oriented to person, place, time, and situation. Cranial nerves II-XII grossly intact. Motor strength 5/5 in all extremities. Sensory grossly intact. Cerebellar exam normal. Normal gait. Psych: Awake, alert, with orientation to person, place and time. Behavior, mood, and affect are within normal limits. 13:13 ECG was reviewed by the Attending Physician. 13:13 Abdomen/GI: Inspection: abdomen appears normal, Bowel sounds: normal, Palpation: mild abdominal tenderness, in the posterior aspect of left lateral abdomen and left upper quadrant, Liver: no appreciated palpable abnormalities, Hernia: not appreciated. Vital Signs: 11:50 BP 160 / 109; Pulse 60; Resp 18; Temp 97.6; Pulse Ox 98% on R/A; Weight 113.4 kg; box Height 5 ft. 6 in. (167.64 cm); 13:56 BP 153 / 90; Pulse 71; Resp 18; Pulse Ox 96% on R/A; box 11:50 Body Mass Index 40.35 (113.40 kg, 167.64 cm) box MDM: 11:57 Patient medically screened. paulino 13:19 Differential diagnosis: abnormal EKG, acute myocardial infarction, acute pericarditis, paulino anxiety, chest wall pain, congestive heart failure costochondritis, Nonspecific abd pain, gastritis, pancreatitis, pancreatitis, pneumonia, pulmonary embolus, thoracic aortic disection, unstable angina, diverticulitis, myocardia ischemia or infarction, non-specific abd pain, pancreatitis, Pyelonephritis. HEART Score: History: Slightly Suspicious (0), ECG: Non specific repolarization disturbance / LBTB / PM (1), Age: > 45 and < 65 years (1), Risk Factors: > or = 3 Risk factors for atherosclerotic disease (2), [DM] [+ Family HX] [Obesity] Troponin: < or = 1 x Normal Limit (0). The patient was given aspirin in the Emergency Department. The patient's deep vein thrombosis risk score was calculated as follows: Total Score: 0. This patient was found to be at low risk for a deep vein thrombosis by using the Well's assessment criteria. The patient's pulmonary embolism risk score was calculated as follows: Total Score: 0-2 points. This patient was found to be at low risk for a pulmonary embolism by using the Well's assessment criteria. ZAY Risk Score: 1 - Three or more CAD risk factors, 1- Known CAD, 1 - ASA use in past 7 days. Data reviewed: vital signs, nurses notes, lab test result(s), EKG, radiologic studies, CT scan, plain films. Data interpreted: surveillance monitor: rate is 60 beats/min, rhythm is regular. Test interpretation: by ED physician or midlevel provider: ECG, plain radiologic studies. Counseling: I had a detailed discussion with the patient and/or guardian regarding: the historical points, exam findings, and any diagnostic results supporting the discharge/admit diagnosis, lab results, radiology results, the need for further work-up and treatment in the hospital. 02/28 12:01 Order name: Basic Metabolic Panel; Complete Time: 13:04 [facility] 02/28 12:01 Order name: CBC with Diff; Complete Time: 13:04 [facility] 02/28 12:01 Order name: LFT's; Complete Time: 13:04 [facility] 02/28 12:01 Order name: Magnesium; Complete Time: 13: [facility] 02/28 12:01 Order name: NT PRO-BNP; Complete Time: 13:04 [facility] 02/28 12:01 Order name: PT-INR; Complete Time: 13:04 [facility] 02/28 12:01 Order name: Troponin HS; Complete Time: 13:04 [facility] 02/28 12:01 Order name: XRAY Chest (1 view); Complete Time: 14:00 [facility] 02/28 12:01 Order name: SARS-COV-2 RT PCR (Document "Date of Onset" if Symptomatic); Complete Time: [facility] 13:21 02/28 12:32 Order name: CT Chest Abdomen Pelvis W/O Contrast; Complete Time: 14:00 [facility] 02/28 16:36 Order name: Urine Dipstick-Ancillary; Complete Time: 16:47 [facility] 02/28 16:49 Order name: Urine Culture [facility] 02/28 16:49 Order name: Troponin High Sensitivity: 5PM [facility] 02/28 17:40 Order name: Troponin High Sensitivity [facility] 02/28 12:01 Order name: EKG; Complete Time: 12:01 [facility] 02/28 12:01 Order name: Cardiac monitoring; Complete Time: 12:06 [facility] 02/28 12:01 Order name: EKG - Nurse/Tech; Complete Time: 12:05 [facility] 02/28 12:01 Order name: IV Saline Lock; Complete Time: 12:05 [facility] 02/28 12:01 Order name: Labs collected and sent; Complete Time: 12:12 [facility] 02/28 12:01 Order name: O2 Per Protocol; Complete Time: 12:12 paulino 02/28 12:01 Order name: O2 Sat Monitoring; Complete Time: 12:12 paul[place] 02/28 13:33 Order name: CONS Physician Consult EDMS EC:13 Rate is 54 beats/min. Rhythm is regular. QRS [place] is Normal. [place] interval is normal. QRS paulino interval is normal. QT interval is normal. No Q waves. T waves are Peaked. ST Segment is depressed in leads I, aVL. Clinical impression: Abnormal EKG without significant change. Interpreted by me. Reviewed by me. Administered Medications: 12:12 Not Given (Other Intervention Used; received in EMS ): Aspirin Chewable Tablet 324 mg ww PO once; 81 mg tablets x 4 12:12 Drug: NS 0.9% 1000 ml Route: IV; Rate: 125 ml/hr; Site: right hand; ww 13:14 Drug: morphine 2 mg Route: IVP; Site: right hand; box 13:14 Drug: Zofran (Ondansetron) 4 mg Route: IVP; Site: right hand; box 13:15 Follow up: Response: No adverse reaction box 14:33 Drug: Lovenox (enoxaparin) 100 mg Route: Sub-Q; Site: right lower abdomen; box 17:25 Follow up: Response: No adverse reaction box 17:04 Drug: Rocephin (cefTRIAXone) 1 grams Route: IV; Rate: per protocol; Site: right hand; box Disposition Summary: 02/28/22 13:26 Hospitalization Ordered Hospitalization Status: Observation paulino Provider: Josh Gilliland [facility] Condition: Fair paulino Problem: new paulino Symptoms: have improved paulino Bed/Room Type: Standard paulino Room Assignment: 210(02/28/22 16:45) dw Diagnosis - Chest pain, unspecified paulino - Abdominal tenderness paulino - Vomiting paulino - UTI/ Urinary tract infection, site not specified paulino Forms: - Medication Reconciliation Form paulino - SBAR form paulino Signatures: Dispatcher [employer] EDJulia Villa RN RN dw Anderson, Corey, MD MD cha Wood, Whitney, RN RN ww Au-Stager, Heather, RN RN ha Corrections: (The following items were deleted from the chart) 16:45 13:26 paulino dw
--- NOTE | 2022-02-28 13:43 | RAD REPORT ---
EXAM DESCRIPTION: CT - Chest Abd Pelvis Wo Con - 02/28/2022 1:22 pm CLINICAL HISTORY: Chest and abdominal pain COMPARISON: 2018 TECHNIQUE: Computed axial tomography of the chest, abdomen and pelvis was obtained. Oral and IV cont rast were not requested. All CT scans are performed using dose optimization technique as appropriate and may include automated exposure control or mA/KV adjustment according to patient size. FINDINGS: The evaluation of mediastinum, addie, vessels,bowel and solid organs is limited secondary to the lack of IV contrast administration Lungs are clear. Coronary arterial calcifications. No mediastinal or hilar lymphadenopathy is seen. A pleural effusion is not present. A pericardial effusion is not seen. A lung consolidation is not present. The lungs are essentially clear. Cholecystectomy Chronic pneumobilia. Spleen, pancreas, and adrenals appear grossly normal Bilateral renal cysts. Small nonobstructing left renal calculi. There is no evidence of diverticulitis. Normal appendix. Small umbilical hernia. Diverticulum extends off of the left posterior bladder. 6 ce ntimeter lipoma within the subcutaneous fat of the left lateral abdomen. IMPRESSION: Nonobstructing left renal calculi No acute abnormality is displayed
--- NOTE | 2022-02-28 13:43 | RAD REPORT ---
EXAM DESCRIPTION: Kar Single View02/28/2022 12:16 pm CLINICAL HISTORY: Chest pain COMPARISON: 2019 FINDINGS: The lungs appear clear of acute infiltrate. The heart is mildly enlarged. Postsurgical changes involve the chest. IMPRESSION: No acute abnormalities displayed
[2022-02-28] MEDS ORDERED: ENOXAPARIN 100 MG/ML SYR SQ ONE (14:16)
[2022-02-28 16:36] LABS: Urine Blood 1+ (Negative); Urine Glucose Negative (Negative); Urine Protein 2+ (Negative); Urine Specific Gravity >=1.030 (1.005-1.030); Urine pH 5.5 (5.0-7.0)
[2022-02-28] MEDS ORDERED: CEFTRIAXONE 1000 MG/VIAL ONE (16:57)
[2022-02-28] MEDS ORDERED: ACETAMINOPHEN 500 MG TAB PO PRN (17:25)
[2022-02-28] MEDS ORDERED: GLUCAGON 1 MG/VIAL IM PRN ×2 (17:25→20:06)
[2022-02-28] MEDS: INSULIN -REGULAR HUMAN 50 UNIT/0.5 ML ML SQ SCH ×3 (17:25→21:00)
[2022-02-28] MEDS ORDERED: D50W 25 GM/50 ML SYRINGE IV PRN ×2 (17:25→20:06)
[2022-02-28] MEDS ORDERED: MORPHINE 2 MG/ML SYR IV PRN (17:25)
[2022-02-28] MEDS ORDERED: ONDANSETRON 4 MG/2 ML VIAL IV PRN (17:25)
[2022-02-28 18:12] VITALS: O2SAT 96
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
[2022-02-28] MEDS ORDERED: FAMOTIDINE 20 MG/2 ML VIAL IV SCH (21:00)
[2022-02-28] MEDS: METOPROLOL TAR 50 MG TAB PO SCH (22:09)
[2022-02-28 22:54] VITALS: BMI 40.3
[2022-03-01 05:57] LABS: Absolute Lymphocytes (CBC) 2.3 K/uL (0.7-4.9); Hematocrit 45.1 % (39.6-49.0); Lymphocytes % 26.9 % (15.3-44.8); RBC Red Blood Cell Count 5.01 M/uL (4.33-5.43)
[2022-03-01 06:15] LABS: Potassium 4.1 mmol/L (3.5-5.1)
[2022-03-01 06:17] LABS: Thyroid Stimulating Hormone 0.855 uIU/mL (0.360-3.740); Troponin High Sensitivity 34.3 pg/mL (<58.9)
[2022-03-01] MEDS: INSULIN -REGULAR HUMAN 50 UNIT/0.5 ML ML SQ SCH ×2 (07:30→11:30)
[2022-03-01] MEDS: METOPROLOL TAR 50 MG TAB PO SCH (08:39)
[2022-03-01 08:40] VITALS: BP 117/73
[2022-03-01] MEDS ORDERED: ASPIRIN EC 81 MG TAB PO SCH ×3 (09:00)
[2022-03-01] MEDS ORDERED: ISOSORBIDE MONO SR 30 MG TAB PO SCH (09:00)
[2022-03-01] MEDS ORDERED: CLOPIDOGREL 75 MG TABLET PO SCH (09:00)
[2022-03-01 09:03] VITALS: TEMP 98.6
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
--- NOTE | 2022-03-01 13:36 | ECHO ---
HEIGHT: 5 ft 6 in WEIGHT: 250 lb 0 oz DATE OF STUDY: 03/01/[address]: Balwinder Ledesma MD 2-DIMENSIONAL: YES M.MODE: YES DOPPLER: YES COLOR FLOW: YES TDS: PORTABLE: YES DEFINITY: BUBBLE STUDY: DIAGNOSIS: CHEST PAIN CARDIAC HISTORY: CATHERIZATION: YES SURGERY: YES PROSTHETIC VALVE: NO PACEMAKER: NO MEASUREMENTS (cm) DIASTOLIC (NORMALS) SYSTOLIC (NORMALS) IVSd 1.2 (0.6-1.2) LA Diam 3.8 (1.9-4.0) LVEF 40% LVIDd 4.9 (3.5-5.7) LVIDs 4.2 (2.0-3.5) %FS 15% LVPWd 1.2 (0.6-1.2) Ao Diam 3.2 (2.0-3.7) 2 DIMENSIONAL ASSESSMENT: RIGHT ATRIUM: NORMAL LEFT ATRIUM: NORMAL RIGHT VENTRICLE: NORMAL LEFT VENTRICLE: MILDLY DILATED TRICUSPID VALVE: NORMAL MITRAL VALVE: NORMAL PULMONIC VALVE: NORMAL AORTIC VALVE: NORMAL PERICARDIAL EFFUSION: NONE AORTIC ROOT: NORMAL LEFT VENTRICULAR WALL MOTION: MILD GLOBAL HYPOKINESIS. DOPPLER/COLOR FLOW: MILD TRICUSPID REGURGITATION. COMMENTS: MILDLY DEPRESSED LEFT VENTRICULAR EJECTION FRACTION 40-45%. MILD GLOBAL HYPOKINESIS. MILD TRICUSPID REGURGITATION. MODERATE DIASTOLIC DYSFUNCTION. TECHNOLOGIST: KEATON RIVREA
--- NOTE | 2022-03-01 15:29 | CON ---
Date of Consultation: 03/01/2022 Reason For Consultation: Chest pain. History Of Present Illness: Mr. Weldon is a 61-year-old male. He is known to me. He has had a histor y of CABG in August 2020, catheterization showing patent ZHOU to the LAD and vein graft to the RCA. He underwent circumflex stent. He has a history of hypertension, diabetes, vasovagal syncope. Cam e in with nausea, vomiting, abdominal pain that radiated to the left side of the chest without any PN D, orthopnea, pedal edema, palpitations, or syncope. He is already ruled out for an KS. He has a BN P of 649. Allergies: INCLUDE IODINE AND FISH. Review of Systems: Negative. Social History: Negative. Family History: Negative. Medications: Include aspirin, Plavix, Lipitor, metoprolol, insulin, and Imdur. Physical Examination: Vital Signs: Stable, afebrile. HEENT: Negative. Neck: Supple with no bruit. Chest: Clear. Cardiac: Revealed a regular rhythm and rate. No murmurs, gallops, or rubs. Abdomen: Benign. Extremities: Revealed no clubbing, cyanosis, or edema. Diagnostic Data: As stated above. CT of the abdomen and pelvis was negative. EKG is negative. Juhi st x-ray is negative. Impression And Plan: Noncardiac chest pain. This is most likely GI in nature. His EKG and troponin are unremarkable. Echocardiogram is pending. Because of elevated BNP, he has an appointment with antonio moran in the office on this week. I am comfortable with him going home with his home medication s, consider a proton pump inhibitor. I will see him in the office soon. He can go home if it is oka y with Dr. Gilliland. ABBEY/TREE Voice ID: [id number] Report ID: [id number]
[2022-03-01] MEDS ORDERED: ENOXAPARIN 40 MG/0.4 ML SQ SCH (17:00)
[2022-03-01] MEDS ORDERED: ATORVASTATIN 80 MG TAB PO SCH (21:00)
== END 2022-03-01 11:30 | disposition home or self-care (01) | DRG 311 ==
LOC: ER 11:43 → ERHOLD 13:30 → 2ND 17:26 → OBSVTOIN 18:51
PROVIDERS: ADMIT Internal Medicine; ATTEND Internal Medicine
DX: I20.9 Angina pectoris, unspecified (principal); I50.22 Chronic systolic (congestive) heart failure; I11.0 Hypertensive heart disease with heart failure; E11.9 Type 2 diabetes mellitus without complications; Z95.1 Presence of aortocoronary bypass graft; E78.5 Hyperlipidemia, unspecified; I25.2 Old myocardial infarction; Z20.822 Contact with and (suspected) exposure to COVID-19
CPT/HCPCS: 36415; 71045; 71250; 74176; 80048; 80061; 80076; 81003; 82947; 83036; 83735; 83880; 84443; 84484; 85025; 85610; 87077; 87086; 87088; 87186; 93005; 93306; 96372; 96374; 96375; 99285; G0378; J1650; J2270; J2405; J7040; U0003

== ENCOUNTER 2022-10-15 14:11 | Emergency (ER) | payer SELFPAY ==
--- OUTSIDE RECORDS SUMMARY | 2022-10-15 14:24 | XMS REPORT | Continuity of Care Document ---
:1960 Author Organization [facility] t Address [address] [place] [address] Care Team Providers Name Role Phone No, Pcp [facility] Primary Care Physician Unavailable Solitario Del Angel MD Attending Clinician SOLITARIO DEL ANGEL Attending Clinician Unavailable Doctor Unassigned, [employer] Attending Clinician Unavailable CAROLYN QUESADA Attending Clinician Unavailable MEREDITH CORRAL Attending Clinician Unavailable CAROLYN QUESADA Admitting Clinician Unavailable DYAN SCHAEFER Admitting Clinician Unavailable Problems Condition Condition Condition Status Onset Resolution Last Treating Co mments Source Name Details Category Date Date Treatment Clinician Date Acute Acute Disease Active 2017-[address] [facility] renal renal 1-29 [facility] failure failure 00:00: Medical (ARF) (ARF) 00 [place] Anemia Anemia Disease Active 2017-[address] [facility] [address] 1-29 [facility] 00:[facility]: Medical 00 [place] Abdominal Abdominal Disease Active 2017-[address] [facility] [address] pain pain -29 [facility] 00:00: Medical 00 [place] Cardiogeni Cardiogeni Disease Active [facility] shock c shock 9-17 [facility] 00:00: Medical 00 [place] Pancreatit Pancreatit Disease Active [facility] is is 9-15 [facility] 00:[facility]: Medical 00 Center Acute Acute Disease Active [facility] blood loss blood loss 9-14 [facility] anemia anemia 00:00: Medical 00 [place] Hemorrhagi Hemorrhagi Disease Active [facility] shock c shock 9-14 [facility] 00:00: Medical 00 [place] Chest Chest Disease Active [facility] pain, pain, 9-13 [facility] unspecifie unspecifie 00:00: Me dical d type d type 00 [place] Accelerate Accelerate Disease Active [facility] d d 07-06 [facility] hypertensi hypertensi 00:00: Me dical on Center Morbid Morbid Disease Active [facility] obesity obesity 07-06 [facility] 00:00: Medical [place] Hyponatrem Hyponatrem Disease Active [facility] ia ia 07-06 [facility] 00:00: Medical 00 [place] GI bleed GI bleed Disease Active [facility] requiring requiring 13 [facility] more than more than 00:00: Medi joycelyn 4 units of 4 units of 00 Ce nter blood in blood in 24 hours, 24 hours, ICU, or ICU, or surgery surgery Hypokalemi Hypokalemi Disease Active [facility] a a 07-04 [facility] 00:00: Medical 00 [place] Hypomagnes Hypomagnes Disease Active [facility] emia emia 07-04 [facility] 00:00: Medical [place] Prolonged Prolonged Disease Active [facility] 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 00:00: Medica l 00 Center 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 [facility] combined combined 00: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 Center 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 Cholelithi Cholelithi Disease Active [facility] asis asis -10 [facility] 00:00: Medical 00 [place] DEION (acute DEION (acute Disease Active [facility] kidney kidney 9-10 [facility] injury) injury) 00:00: Medical 00 [place] CKD CKD Disease Active [facility] (chronic (chronic 9-10 [facility] kidney kidney 00:00: Medical disease) disease) 00 Center stage 2, stage 2, GFR 60-89 GFR 60-89 ml/min ml/min S/P CABG x S/P CABG x Disease Active [facility] 3 3 06-30 [facility] 00[facility]00: Medical 00 [place] Diabetes Diabetes Disease Active [facility] mellitus mellitus 06-30 [facility] type 2 in type 2 in 00:00: Medi joycelyn obese obese 00 Center Uncontroll Uncontroll Disease Active [facility] ed ed 06-30 [facility] hypertensi hypertensi 00:00: Me dical on [place] Chest pain Chest pain Disease Active [facility] 06-30 [facility] 00:00: Medical 00 Center No known No known Disease Unive rs active active ity of problems problems [facility] Allergies, Adverse Reactions, Alerts Allergy Allergy Status Severity Reaction(s) Onset Inactive Treating Comm ents Source Name Type Date Date Clinician IODINE Drug Active Unknown-Cmnt 2017-10 Univ ers AND Class 11-20 ity of IODIDE 00:00: [place] CONTAINI 00 Medical Branch PRODUCTS Iodine Propensi Active 2017-[address] And ty to 11-20 [facility] Iodide adverse 00:00: Medical Containi reaction 00 Center ng s Products Shellfis Propensi Active Anaphylaxis [facility] h ty to 06-30 [facility] Containi adverse 00:00: Medical ng reaction 00 Center Products s NO KNOWN Drug Active Univers ALLERGIE Class ity of S [facility] Family History Family Member Diagnosis Comments Start Date Stop Date Source Natural father [facility] Natural father Heart disease [facility] Natural father Hypertension [facility] Natural father Kidney disease [facility] Social History Social Habit Start Date Stop Date Quantity Comments Source Exposure to Not sure [facility] SARS-CoV-2 (event) [facility] History SDOH [facility] Alcohol Frequency [facility] Center History SDOH [facility] Alcohol Std Drinks Medica Center History SDOH [facility] Alcohol Binge Medical [address] ter Alcohol intake 2018-09-25 2018-09-25 .29 /d [facility] 00:[facility]00 00:00:00 Medical Center History SDOH 2018-06-30 2018-06-[address] [facility] Alcohol Comment 00:00:00 00:00:00 Medical C enter Tobacco use and 2018-06-30 2018-06-[address] [facility] [address] Am[facility] kes exposure 00:00:00 00:00:00 Medical Center History of tobacco 1995-06-30 Current smoker [facility] use [facility] Sex Assigned At [address] kes 00:00:00 00:00:00 Medical Center Smoking Status Start Date Stop Date Source Unknown if ever smoked [facility] Never smoker [facility] Former smoker 2018-06-30 00:00:00 2018-06-30 00:00:[address] [facility] Medications Ordered Filled Start Stop Current Ordering Indication Dosage Frequency Signature Comments Components Source Medication Medication Date Date Medication? Clinician (SIG) Name Name acetaminoph Yes TAKE 2 Univ ers en-codeine 4-11 TABLETS BY ity of 300-30 mg 00:00: MOUTH [place] tablet 00 EVERY 4 TO Medical 6 HOURS Branch NEEDED FOR PAIN acetaminoph Yes TAKE 2 Univ ers en-codeine 4-11 TABLETS BY ity of 300-30 mg 00:00: MOUTH [place] tablet 00 EVERY 4 TO Medical 6 HOURS Branch NEEDED FOR PAIN Procedures Procedure Date / Time Performed Performing Clinician Sourc e CONSENT/REFUSAL FOR 2021-02-11 18:51:21 Doctor Unassigned, No Un [facility] DIAGNOSIS AND Name Medical Branch TREATMENT Encounters Start End Encounter Admission Attending Care Care Encounter Source Date/Time Date/Time Type Type Clinicians Facility Department ID 2021-02-11 2021-02-11 Office Bean RUST [id number] Univers 14:00:00 14:15:00 [id number] of [facility] [id number] Josesito as Specialti [id number] Ia dical es 198 Branch [place] 2021-02-11 2021-02-11 Outpatient R [facility] [id number] Univers 14:00:00 14:00:00 SOILTARIO aleman [facility] 2021-02-11 2021-02-11 Orders Doctor POLK [id number] Univers 00:00:00 00:00:00 Only Unassigned, BINTA [id number] ity of [employer] [facility] [id number] Josesito as [id number] [place] [id number] Branch Results Test Description Test Time Test Comments Results Result Sourc e Comments FL, ERCP 2018-09-24 Reason for FINAL REPORT PATIENT 17:04:00 exam:->Abdomina ID: [id number] ERCP, l pain 09/24/2018 Clinical History: Abdominal [...] MDReport Verified Date/Time: 09/24/2018 17:04:26 Reading Location: [facility] [id number] Ortho Consult Reading Room C [...] NOT 1092) ACCURATE CRE ATININE CLEARANCE IN GA EDICTING GLOMERULAR FILT RATION RATE. ESTIMATED GFR IS NOT APPLICABLE FOR DIALYSIS PATIENTS. CBC W/PLT COUNT & AUTO [id number] 14:29:00 Test Item Value Reference Range Interpretation [...] PERCENT (BEAKER) (test code = 2801) POCT-GLUCOSE [id number] 11:57:00 Test Item Value Reference Range Interpretation Comments POC-GLUCOSE METER 142 mg/dL 70-110 H TESTED AT [facility] 6720 (BEAKER) (test code = [place]E [place] 1538) [id number] POCT-GLUCOSE [id number] 11:09:00 Test Item Value Reference Range Interpretation Comments POC-GLUCOSE METER 135 mg/dL 70-110 H TESTED AT [facility] 6720 (BEAKER) (test code = GENEVIEVE [place] 1538) [address] POCT-GLUCOSE [id number] 05:59:00 Test Item Value Reference Range Interpretation Comments POC-GLUCOSE METER 118 mg/dL 70-110 H TESTED AT [facility] 6720 (BEAKER) (test code = GENEVIEVE Bruce [facility] 1538) [address] POCT-GLUCOSE [id number] 01:15:00 Test Item Value Reference Range Interpretation Comments POC-GLUCOSE METER 107 mg/dL 70-110 TESTED AT [place] [address] (BEAKER) (test code = GENEVIEVE Bruce [facility] 1538) [address] POCT-GLUCOSE [id number] 21:13:00 Test Item Value Reference Range Interpretation Comments POC-GLUCOSE METER 139 mg/dL 70-110 H TESTED AT [place] [address] (BEAKER) (test [facility] = [facility] 1538) [address] POCT-GLUCOSE [id number] 18:29:00 Test Item Value Reference Range Interpretation Comments POC-GLUCOSE METER 139 mg/dL 70-110 H TESTED AT [place] [address] (BEAKER) (test code = GENEVIEVE Bruce [facility] 1538) [address]85 POCT-GLUCOSE [id number] 13:09:00 Test Item Value Reference Range Interpretation Comments POC-GLUCOSE METER 100 mg/dL 70-110 TESTED AT [place] [address] (BEAKER) (test code = [facility] Janis [facility] 1538) [address] BASIC METABOLIC [id number] 08:28:00 Test Item Value Reference Range Interpretation [...] S NOT APPLICABLE FOR DIALYSIS PATIEN TS. [id number] 08:23:00 Test Item Value Reference Range Interpretation Comments MAGNESIUM (BEAKER) (test code = 2.5 mg/dL 1.6-2.6 627) URINALYSIS W/ REFLEX URINE [id number] 07:38:00 Test Item Value Reference Range Interpretation [...] 516) SOURCE(BEAKER) (test code = 2795) POCT-GLUCOSE [id number] 07:08:00 Test Item Value Reference Range Interpretation Comments POC-GLUCOSE METER 127 mg/dL 70-110 H TESTED AT [facility] 6720 (BEAKER) (test code = GENEVIEVE [place] 1538) [address] CBC W/PLT COUNT & AUTO [id number] 07:02:00 Test Item Value Reference Range Interpretation [...] PERCENT (BEAKER) (test code = 2801) PROTHROMBIN [id number] 06:52:00 Test Item Value Reference Range Interpretation Comments PROTIME (BEAKER) (test code = 15.7 seconds 11.7-14.7 H 759) INR ([facility]) (test code = 370) 1.3 <=5.9 RECOMMENDED COUMADIN/WARFARIN INR THERAPY RANGESSTANDARD DOSE: 2.0 - 3.0 Includes: PROPHYLAXIS for venous thrombosis, systemic embolization; TREATMENT for venous thrombosis and/or pulmonary embolus.HIGH RISK: Target INR is 2.5-3.5 for patients with mechanical heart valves.POCT-GLUCOSE [id number] 22:38:00 Test Item Value Reference Range Interpretation Comments POC-GLUCOSE METER 136 mg/dL 70-110 H TESTED AT [place] [address] ([facility]) (test code = GENEVIEVE Bruce [facility] 1538) [address] POCT-GLUCOSE [id number] 18:00:00 Test Item Value Reference Range Interpretation Comments POC-GLUCOSE METER 124 mg/dL 70-110 H TESTED AT [place] [address] ([facility]) (test code = [facility] Janis [facility] 1538) [address] POCT-GLUCOSE [id number] 12:37:00 Test Item Value Reference Range Interpretation Comments POC-GLUCOSE METER 174 mg/dL 70-110 H TESTED AT [place] [address] ([facility]) (test code = [facility] Janis [facility] 1538) [address] POCT-GLUCOSE [id number] 08:22:00 Test Item Value Reference Range Interpretation Comments POC-GLUCOSE METER 109 mg/dL 70-110 TESTED AT [place] [address] ([facility]) (test code = [facility] Janis [facility] 1538) [address] BASIC METABOLIC [id number] 06:30:00 Test Item Value Reference Range Interpretation [...] S NOT APPLICABLE FOR DIALYSIS PATIEN TS. [id number] 06:25:00 Test Item Value Reference Range Interpretation Comments MAGNESIUM (BEAKER) (test code = 2.2 mg/dL 1.6-2.6 627) CBC W/PLT COUNT & AUTO [id number] 05:58:00 Test Item Value Reference Range Interpretation [...] PERCENT (BEAKER) (test code = 2801) POCT-GLUCOSE [id number] 23:58:00 Test Item Value Reference Range Interpretation Comments POC-GLUCOSE METER 130 mg/dL 70-110 H TESTED AT [place] [address] ([facility]) (test code = [facility] 1538) [address] OCCULT BLOOD, [id number] 21:20:00 Test Item Value Reference Range Interpretation Comments FECAL OCCULT BLOOD (BEAKER) (test Negative Negative code = 618) RETICULOCYTE [id number] 17:55:00 Test Item Value Reference Range Interpretation Comments RETICULOCYTE COUNT PCT (AKER) (test 0.8 % 0.5-1.8 code = 575) POCT-GLUCOSE [id number] 17:43:00 Test Item Value Reference Range Interpretation Comments POC-GLUCOSE METER 108 mg/dL 70-110 TESTED AT [place] [address] ([facility]) (test code = [facility] 1538) [address] [id number] 17:11:00 Test Item Value Reference Range Interpretation [...] 20-55 L (test code = 2590) POCT-GLUCOSE [id number] 11:43:00 Test Item Value Reference Range Interpretation Comments POC-GLUCOSE METER 112 mg/dL 70-110 H TESTED AT [place] [id number] ([facility]) (test code = GENEVIEVE Bruce [facility] 1538) [address] U/S, ABDOMINAL, [id number] 08:34:00Reason for exam:->acute renal failure and recent [...] liver contour. No focal lesions. BILIARY:Gallbladder: Prior cholecyste ctomy.Common bile duct measures 0.3 cm, within normal [...] MDReport Verified Date/Time: 09/21/2018 08:34:21 Reading Location: [address] Ultrasound Reading Room POCT-GLUCOSE [id number] 06:34:00 Test Item Value Reference Range Interpretation Comments POC-GLUCOSE METER 83 mg/dL 70-110 TESTED AT [facility] 6720 (BEAKER) (test code = GENEVIEVE Bruce [facility] [address] 1538) BASIC METABOLIC [id number] 06:14:00 Test Item Value Reference Range Interpretation [...] S NOT APPLICABLE FOR DIALYSIS PATIEN TS. [id number] 06:10:00 Test Item Value Reference Range Interpretation Comments MAGNESIUM (BEAKER) (test code = 2.4 mg/dL 1.6-2.6 627) CBC W/PLT COUNT & AUTO [id number] 05:16:00 Test Item Value Reference Range Interpretation [...] code = 2801) URINALYSIS WITH MICROSCOPIC IF [id number] 05:08:00 Test Item Value Reference Range Interpretation [...] 463) SOURCE(BEAKER) (test code = 2795) URINALYSIS [id number] 05:08:00 Test Item Value Reference Range Interpretation [...] (test Rare code = 1584) CREATININE, RANDOM [id number] 05:03:00 Test Item Value Reference Range Interpretation Comments CREATININE URINE (BEAKER) (test 95.1 mg/dL code = 375) Reference Range: No NormalsSODIUM, RANDOM [id number] 05:03:00 Test Item Value Reference Range Interpretation Comments SODIUM URINE (BEAKER) (test code = 45 meq/L 243) Reference Range: No NormalsUREA NITROGEN, RANDOM [id number] 05:03:00 Test Item Value Reference Range Interpretation Comments UREA NITROGEN URINE (BEAKER) (test 494 mg/dL code = 538) Reference Range: No NormalsCOMPREHENSIVE METABOLIC [id number] 00:16:00 Test Item Value Reference Range Interpretation [...] 90 pg/mL 0-100 (test code = 700) [id number] 00:11:00 Test Item Value Reference Range Interpretation Comments LIPASE (BEAKER) (test code = 749) 94 U/L 8-78 H [id number] 00:11:00 Test Item Value Reference Range Interpretation Comments AMYLASE (BEAKER) (test code = 349) 71 U/L 25-125 LACTIC ACID, VENOUS, WHOLE [id number] 00:04:00 Test Item Value Reference Range Interpretation Comments LACTATE BLOOD VENOUS 0.8 mmol/L 0.5-2.2 Specime n slightly (2) (BEAKER) (test hemolyzed code = 3786) CBC W/PLT COUNT & AUTO [id number] 23:48:00 Test Item Value Reference Range Interpretation [...] (BEAKER) (test code = 2801) HEMOGLOBIN AND [id number] 13:29:00 Test Item Value Reference Range Interpretation Comments HEMOGLOBIN (BEAKER) (test code = 9.4 GM/DL 13.7-17.5 L 410) HEMATOCRIT (BEAKER) (test code = 29.2 % 40.1-51.0 L 411) POCT-GLUCOSE [id number] 12:50:00 Test Item Value Reference Range Interpretation Comments POC-GLUCOSE METER 188 mg/dL 70-110 H TESTED AT [facility] 6720 (BEAKER) (test code = GENEVIEVE [place] 1538) [address] BASIC METABOLIC [id number] 10:11:00 Test Item Value Reference Range Interpretation [...] FOR DIALYSIS PATIEN TS. Specimen slightly ictericPOCT-GLUCOSE [id number] 09:55:00 Test Item Value Reference Range Interpretation Comments POC-GLUCOSE METER 149 mg/dL 70-110 H TESTED AT [facility] 6720 (BEAKER) (test code = GENEVIEVE Bruce [place] 1535) [address] PROTHROMBIN [id number] 05:39:00 Test Item Value Reference Range Interpretation Comments PROTIME (BEAKER) (test code = 15.8 seconds 11.7-14.7 H 759) INR (BEAKER) (test code = 370) 1.3 <=5.9 RECOMMENDED COUMADIN/WARFARIN INR THERAPY RANGESSTANDARD DOSE: 2.0 - 3.0 Includes: PROPHYLAXIS for venous thrombosis, systemic embolization; TREATMENT for venous thrombosis and/or pulmonary embolus.HIGH RISK: Target INR is 2.5-3.5 for patients with mechanical heart valves.[id number] 05:31:00 Test Item Value Reference Range Interpretation Comments MAGNESIUM (BEAKER) (test code = 1.5 mg/dL 1.6-2.6 L 627) HEPATIC FUNCTION [id number] 05:31:00 Test Item Value Reference Range Interpretation [...] 6-55 347) CBC W/PLT COUNT & AUTO [id number] 05:15:00 Test Item Value Reference Range Interpretation [...] PERCENT (BEAKER) (test code = 2801) POCT-GLUCOSE [id number] 21:20:00 Test Item Value Reference Range Interpretation Comments POC-GLUCOSE METER 145 mg/dL 70-110 H TEST[facility] AT [place] [address] [facility] (test code = [facility] 1538) [address] POCT-GLUCOSE [id number] 18:26:00 Test Item Value Reference Range Interpretation Comments POC-GLUCOSE METER 145 mg/dL 70-110 H TESTED AT [place] [address] ([facility]) (test code = [facility] 1538) [address] HEMOGLOBIN AND [id number] 18:06:00 Test Item Value Reference Range Interpretation Comments HEMOGLOBIN (BEAKER) (test code = 9.2 GM/DL 13.7-17.5 L 410) HEMATOCRIT (BEAKER) (test code = 28.3 % 40.1-51.0 L 411) CBC W/PLT COUNT & AUTO [id number] 13:13:00 Test Item Value Reference Range Interpretation [...] (test code = 1+ few 965) POCT-GLUCOSE [id number] 12:54:00 Test Item Value Reference Range Interpretation Comments POC-GLUCOSE METER 146 mg/dL 70-110 H TESTED AT [facility] 6720 (BEAKER) (test code = GENEVIEVE Bruce [place] 1538) [address] POCT-GLUCOSE [id number] 09:05:00 Test Item Value Reference Range Interpretation Comments POC-GLUCOSE METER 143 mg/dL 70-110 H TESTED AT [facility] 6720 (BEAKER) (test code = [facility] Janis [place] 1538) [address] [id number] 07:26:00 Test Item Value Reference Range Interpretation Comments MAGNESIUM (BEAKER) (test code = 1.8 mg/dL 1.6-2.6 627) BASIC METABOLIC [id number] 07:26:00 Test Item Value Reference Range Interpretation [...] APPLICABLE FOR DIALYSIS PATIEN TS. HEPATIC FUNCTION [id number] 07:26:00 Test Item Value Reference Range Interpretation [...] code = 25 U/L 6-55 347) CALCIUM, [id number] 07:09:00 Test Item Value Reference Range Interpretation Comments CALCIUM IONIZED (BEAKER) (test 1.08 mmol/L 1.12-1.27 L code = 698) PH, BLOOD (BEAKER) (test code = 7.52 1810) PROTHROMBIN [id number] 07:07:00 Test Item Value Reference Range Interpretation Comments PROTIME (BEAKER) (test code = 14.9 seconds 11.7-14.7 H 759) INR (BEAKER) (test code = 370) 1.2 <=5.9 RECOMMENDED COUMADIN/WARFARIN INR THERAPY RANGESSTANDARD DOSE: 2.0 - 3.0 Includes: PROPHYLAXIS for venous thrombosis, systemic embolization; TREATMENT for venous thrombosis and/or pulmonary embolus.HIGH RISK: Target INR is 2.5-3.5 for patients with mechanical heart valves.POCT-GLUCOSE [id number] 21:30:00 Test Item Value Reference Range Interpretation Comments POC-GLUCOSE METER 133 mg/dL 70-110 H TESTED AT [place] [address] ([facility]) (test code = [facility] [place] 1538) [address] POCT-GLUCOSE [id number] 17:52:00 Test Item Value Reference Range Interpretation Comments POC-GLUCOSE METER 270 mg/dL 70-110 H TESTED AT [place] [address] ([facility]) (test code = [facility] 1538) [address] HEMOGLOBIN AND [id number] 16:27:00 Test Item Value Reference Range Interpretation Comments HEMOGLOBIN (BEAKER) (test code = 8.9 GM/DL 13.7-17.5 L 410) HEMATOCRIT (BEAKER) (test code = 27.7 % 40.1-51.0 L 411) POCT-GLUCOSE [id number] 08:55:00 Test Item Value Reference Range Interpretation Comments POC-GLUCOSE METER 132 mg/dL 70-110 H TESTED AT [facility] 6720 (BEAKER) (test code = [facility] Janis [facility] 1538) [address] POCT-GLUCOSE [id number] 08:49:00 Test Item Value Reference Range Interpretation Comments POC-GLUCOSE METER 131 mg/dL 70-110 H TESTED AT [facility] 6720 (BEAKER) (test code = [facility] 1538) [address] [id number] 04:20:00 Test Item Value Reference Range Interpretation Comments MAGNESIUM (BEAKER) (test code = 1.7 mg/dL 1.6-2.6 627) BASIC METABOLIC [id number] 04:20:00 Test Item Value Reference Range Interpretation [...] APPLICABLE FOR DIALYSIS PATIEN TS. HEPATIC FUNCTION [id number] 04:20:00 Test Item Value Reference Range Interpretation [...] 6-55 347) CBC W/PLT COUNT & AUTO [id number] 04:16:00 Test Item Value Reference Range Interpretation [...] 0-1 PERCENT (BEAKER) (test code = 2801) [id number] 04:06:00 Test Item Value Reference Range Interpretation [...] exclusion of thrombosis is within 95-100% range. [id number] 04:04:00 Test Item Value Reference Range Interpretation Comments FIBRINOGEN LEVEL (BEAKER) (test 426 mg/dl 225-434 code = 658) [id number] 04:04:00 Test Item Value Reference Range Interpretation Comments PROTIME (BEAKER) (test code = 15.0 seconds 11.7-14.7 H 759) INR (BEAKER) (test code = 370) 1.2 <=5.9 PARTIAL THROMBOPLASTIN TIME 31.7 seconds 22.5-36.0 (BEAKER) (test code = 760) RECOMMENDED COUMADIN/WARFARIN INR THERAPY RANGESSTANDARD DOSE: 2.0 - 3.0 Includes: PROPHYLAXIS for venous thrombosis, systemic embolization; TREATMENT for venous thrombosis and/or pulmonary embolus.HIGH RISK: Target INR is 2.5-3.5 for patients with mechanical heart valves.PLATELET [id number] 03:59:00 Test Item Value Reference Range Interpretation Comments PLATELET COUNT (BEAKER) (test 293 K/CU MM 150-450 code = 756) HEMOGLOBIN AND [id number] 03:59:00 Test Item Value Reference Range Interpretation Comments HEMOGLOBIN (BEAKER) (test code = 9.0 GM/DL 13.7-17.5 L 410) HEMATOCRIT (BEAKER) (test code = 28.6 % 40.1-51.0 L 411) POCT-GLUCOSE [id number] 22:54:00 Test Item Value Reference Range Interpretation Comments POC-GLUCOSE METER 169 mg/dL 70-110 H TESTED AT [facility] 6720 (BEAKER) (test code = GENEVIEVE Bruce [place] 1538) [address] POCT-GLUCOSE [id number] 17:50:00 Test Item Value Reference Range Interpretation Comments POC-GLUCOSE METER 162 mg/dL 70-110 H TESTED AT [facility] 6720 (BEAKER) (test code = GENEVIEVE Bruce [facility] 1538) [address] HEMOGLOBIN AND [id number] 12:54:00 Test Item Value Reference Range Interpretation Comments HEMOGLOBIN (BEAKER) (test code = 8.9 GM/DL 13.7-17.5 L 410) HEMATOCRIT (BEAKER) (test code = 28.0 % 40.1-51.0 L 411) [id number] 06:09:00 Test Item Value Reference Range Interpretation Comments MAGNESIUM (BEAKER) (test code = 1.4 mg/dL 1.6-2.6 L 627) BASIC METABOLIC [id number] 06:09:00 Test Item Value Reference Range Interpretation [...] APPLICABLE FOR DIALYSIS PATIEN TS. HEPATIC FUNCTION [id number] 06:09:00 Test Item Value Reference Range Interpretation [...] code = 26 U/L 6-55 347) PROTHROMBIN [id number] 06:03:00 Test Item Value Reference Range Interpretation Comments PROTIME (BEAKER) (test code = 15.8 seconds 11.7-14.7 H 759) INR (BEAKER) (test code = 370) 1.3 <=5.9 RECOMMENDED COUMADIN/WARFARIN INR THERAPY RANGESSTANDARD DOSE: 2.0 - 3.0 Includes: PROPHYLAXIS for venous thrombosis, systemic embolization; TREATMENT for venous thrombosis and/or pulmonary embolus.HIGH RISK: Target INR is 2.5-3.5 for patients with mechanical heart valves.CBC W/PLT COUNT & AUTO [id number] 05:43:00 Test Item Value Reference Range Interpretation [...] (BEAKER) (test code = 2801) HEMOGLOBIN AND [id number] 18:54:00 Test Item Value Reference Range Interpretation Comments HEMOGLOBIN (BEAKER) (test code = 9.9 GM/DL 13.7-17.5 L 410) HEMATOCRIT (BEAKER) (test code = 32.6 % 40.1-51.0 L 411) BLOOD [id number] 18:00:00 Test Item Value Reference Range Interpretation Comments CULTURE (BEAKER) (test No growth in 5 days code = 1095) HEMOGLOBIN AND [id number] 16:03:00 Test Item Value Reference Range Interpretation Comments HEMOGLOBIN (BEAKER) (test code = 9.4 GM/DL 13.7-17.5 L 410) HEMATOCRIT (BEAKER) (test code = 28.9 % 40.1-51.0 L 411) CBC W/PLT COUNT & AUTO [id number] 09:17:00 Test Item Value Reference Range Interpretation [...] PERCENT (BEAKER) (test code = 2801) PROTHROMBIN [id number] 08:38:00 Test Item Value Reference Range Interpretation Comments PROTIME (BEAKER) (test code = 14.7 seconds 11.7-14.7 759) INR (BEAKER) (test code = 370) 1.2 <=5.9 RECOMMENDED COUMADIN/WARFARIN INR THERAPY RANGESSTANDARD DOSE: 2.0 - 3.0 Includes: PROPHYLAXIS for venous thrombosis, systemic embolization; TREATMENT for venous thrombosis and/or pulmonary embolus.HIGH RISK: Target INR is 2.5-3.5 for patients with mechanical heart valves.BASIC METABOLIC [id number] 07:46:00 Test Item Value Reference Range Interpretation [...] NOT APPLICABLE FOR DIALYSIS PATIEN TS. PROTHROMBIN [id number] 06:45:00 Test Item Value Reference Range Interpretation Comments PROTIME (BEAKER) (test code = 14.5 seconds 11.7-14.7 759) INR (BEAKER) (test code = 370) 1.1 <=5.9 RECOMMENDED COUMADIN/WARFARIN INR THERAPY RANGESSTANDARD DOSE: 2.0 - 3.0 Includes: PROPHYLAXIS for venous thrombosis, systemic embolization; TREATMENT for venous thrombosis and/or pulmonary embolus.HIGH RISK: Target INR is 2.5-3.5 for patients with mechanical heart valves.[id number] 05:11:00 Test Item Value Reference Range Interpretation Comments MAGNESIUM (BEAKER) 1.8 mg/dL 1.6-2.6 Specimen moderately (test code = 627) hemolyzed HEPATIC FUNCTION [id number] 05:11:00 Test Item Value Reference Range Interpretation [...] Specimen moderately (test code = 347) hemolyzed [id number] 06:06:00 Test Item Value Reference Range Interpretation Comments MAGNESIUM (BEAKER) (test code = 1.6 mg/dL 1.6-2.6 627) BASIC METABOLIC [id number] 06:06:00 Test Item Value Reference Range Interpretation [...] APPLICABLE FOR DIALYSIS PATIEN TS. HEPATIC FUNCTION [id number] 06:06:00 Test Item Value Reference Range Interpretation [...] code = 22 U/L 6-55 347) PROTHROMBIN [id number] 05:51:00 Test Item Value Reference Range Interpretation Comments PROTIME (BEAKER) (test code = 15.8 seconds 11.7-14.7 H 759) INR (BEAKER) (test code = 370) 1.3 <=5.9 RECOMMENDED COUMADIN/WARFARIN INR THERAPY RANGESSTANDARD DOSE: 2.0 - 3.0 Includes: PROPHYLAXIS for venous thrombosis, systemic embolization; TREATMENT for venous thrombosis and/or pulmonary embolus.HIGH RISK: Target INR is 2.5-3.5 for patients with mechanical heart valves.CBC W/PLT COUNT & AUTO [id number] 05:48:00 Test Item Value Reference Range Interpretation [...] (BEAKER) (test code = 2801) HEMOGLOBIN AND [id number] 00:16:00 Test Item Value Reference Range Interpretation Comments HEMOGLOBIN (BEAKER) (test code = 8.8 GM/DL 13.7-17.5 L 410) HEMATOCRIT (BEAKER) (test code = 27.1 % 40.1-51.0 L 411) HEMOGLOBIN AND [id number] 17:32:00 Test Item Value Reference Range Interpretation Comments HEMOGLOBIN (BEAKER) (test code = 8.8 GM/DL 13.7-17.5 L 410) HEMATOCRIT (BEAKER) (test code = 27.5 % 40.1-51.0 L 411) RAD, CHEST, 1 VIEW, NON [id number] 10:38:00Reason for exam:->HFShould this be performed at the bedside?->YesFINAL REPORT CLINICAL HISTORY: HF TECHNIQUE: 1 view of the chest. COMPARISON: 07/15/2018 IMPRESSION: The ETT has been removed. The right-sided dialysis catheter remains in the SVC. Pulmonary vascular congestion appears increased with increased bilateral airspace opacities. There susan new small left pleural effusion. The cardiomediastinal silhouette is magnified by technique with sternotomy wires. Signed: Gina Spears [facility] Verified Date/Time: 07/18/2018 10:38:16 Reading Location: [facility] Radiology Reading Room HEMOGLOBIN AND [id number] 10:12:00 Test Item Value Reference Range Interpretation Comments HEMOGLOBIN (BEAKER) (test code = 7.8 GM/DL 13.7-17.5 L 410) HEMATOCRIT (BEAKER) (test code = 24.5 % 40.1-51.0 L 411) [id number] 04:04:00 Test Item Value Reference Range Interpretation Comments MAGNESIUM (BEAKER) (test code = 1.9 mg/dL 1.6-2.6 627) BASIC METABOLIC [id number] 04:04:00 Test Item Value Reference Range Interpretation [...] APPLICABLE FOR DIALYSIS PATIEN TS. HEPATIC FUNCTION [id number] 04:04:00 Test Item Value Reference Range Interpretation [...] code = 22 U/L 6-55 347) PROTHROMBIN [id number] 04:00:00 Test Item Value Reference Range Interpretation Comments PROTIME (BEAKER) (test code = 15.5 seconds 11.7-14.7 H 759) INR (BEAKER) (test code = 370) 1.2 <=5.9 RECOMMENDED COUMADIN/WARFARIN INR THERAPY RANGESSTANDARD DOSE: 2.0 - 3.0 Includes: PROPHYLAXIS for venous thrombosis, systemic embolization; TREATMENT for venous thrombosis and/or pulmonary embolus.HIGH RISK: Target INR is 2.5-3.5 for patients with mechanical heart valves.CBC W/PLT COUNT & AUTO [id number] 03:46:00 Test Item Value Reference Range Interpretation [...] (BEAKER) (test code = 2801) HEMOGLOBIN AND [id number] 00:32:00 Test Item Value Reference Range Interpretation Comments HEMOGLOBIN (BEAKER) (test code = 9.0 GM/DL 13.7-17.5 L 410) HEMATOCRIT (BEAKER) (test code = 27.8 % 40.1-51.0 L 411) [id number] 18:36:00 Test Item Value Reference Range Interpretation Comments MAGNESIUM (BEAKER) 2.2 mg/dL 1.6-2.6 Specimen slightly (test code = 627) hemolyzed [id number] 18:36:00 Test Item Value Reference Range Interpretation Comments POTASSIUM (BEAKER) 4.3 meq/L 3.5-5.1 Specimen slightly (test code = 379) hemolyzed FL, [id number] 18:08:00INTRA OP IMAGINGReason for exam:->abnormal imaging FINAL REPORT ERCP 1 view 07/17/2018 6:06 PM CLINICAL HISTORY: Instrument localization COMPARISON: None available IMPRESSION: Please correlate imaging report findings with the procedure note prepared by Dr. Santacruz, as an intra-procedure imaging consultation was not requested. Reported fluoroscopy time: 233.8 seconds. Signed: Farhad Meza MDReport Verified Date/Time: 07/17/2018 18:08:25 Reading Location: [facility] Radiology Reading Room GLOBIN AND [id number] 18:03:00 Test Item Value Reference Range Interpretation Comments HEMOGLOBIN (BEAKER) (test code = 9.2 GM/DL 13.7-17.5 L 410) HEMATOCRIT (BEAKER) (test code = 28.1 % 40.1-51.0 L 411) [id number] 09:33:00 Test Item Value Reference Range Interpretation Comments POTASSIUM (BEAKER) (test code = 3.4 meq/L 3.5-5.1 L 379) [id number] 09:33:00 Test Item Value Reference Range Interpretation Comments MAGNESIUM (BEAKER) (test code = 2.0 mg/dL 1.6-2.6 627) HEMOGLOBIN AND [id number] 09:20:00 Test Item Value Reference Range Interpretation Comments HEMOGLOBIN (BEAKER) (test code = 8.9 GM/DL 13.7-17.5 L 410) HEMATOCRIT (BEAKER) (test code = 26.9 % 40.1-51.0 L 411) PROTHROMBIN [id number] 06:45:00 Test Item Value Reference Range Interpretation Comments PROTIME (BEAKER) (test code = 16.9 seconds 11.7-14.7 H 759) INR (BEAKER) (test code = 370) 1.4 <=5.9 RECOMMENDED COUMADIN/WARFARIN INR THERAPY RANGESSTANDARD DOSE: 2.0 - 3.0 Includes: PROPHYLAXIS for venous thrombosis, systemic embolization; TREATMENT for venous thrombosis and/or pulmonary embolus.HIGH RISK: Target INR is 2.5-3.5 for patients with mechanical heart valves.BASIC METABOLIC [id number] 03:44:00 Test Item Value Reference Range Interpretation [...] S NOT APPLICABLE FOR DIALYSIS PATIEN TS. [id number] 03:36:00 Test Item Value Reference Range Interpretation Comments MAGNESIUM (BEAKER) (test code = 2.3 mg/dL 1.6-2.6 627) HEPATIC FUNCTION [id number] 03:36:00 Test Item Value Reference Range Interpretation [...] 6-55 347) CBC W/PLT COUNT & AUTO [id number] 03:08:00 Test Item Value Reference Range Interpretation [...] (BEAKER) (test code = 2801) HEMOGLOBIN AND [id number] 00:43:00 Test Item Value Reference Range Interpretation Comments HEMOGLOBIN (BEAKER) (test code = 9.2 GM/DL 13.7-17.5 L 410) HEMATOCRIT (BEAKER) (test code = 27.6 % 40.1-51.0 L 411) [id number] 20:56:00 Test Item Value Reference Range Interpretation Comments POTASSIUM (BEAKER) (test code = 3.0 meq/L 3.5-5.1 L 379) [id number] 20:56:00 Test Item Value Reference Range Interpretation Comments MAGNESIUM (BEAKER) (test code = 1.7 mg/dL 1.6-2.6 627) HEMOGLOBIN AND [id number] 17:08:00 Test Item Value Reference Range Interpretation Comments HEMOGLOBIN (BEAKER) (test code = 9.3 GM/DL 13.7-17.5 L 410) HEMATOCRIT (BEAKER) (test code = 28.2 % 40.1-51.0 L 411) [id number] 08:36:00 Test Item Value Reference Range Interpretation Comments PHOSPHORUS (BEAKER) (test code = 2.9 mg/dL 2.3-4.7 604) HEMOGLOBIN AND [id number] 08:18:00 Test Item Value Reference Range Interpretation Comments HEMOGLOBIN (BEAKER) (test code = 8.7 GM/DL 13.7-17.5 L 410) HEMATOCRIT (BEAKER) (test code = 25.7 % 40.1-51.0 L 411) BASIC METABOLIC [id number] 05:58:00 Test Item Value Reference Range Interpretation [...] S NOT APPLICABLE FOR DIALYSIS PATIEN TS. [id number] 04:58:00 Test Item Value Reference Range Interpretation Comments MAGNESIUM (BEAKER) (test code = 1.3 mg/dL 1.6-2.6 L 627) HEPATIC FUNCTION [id number] 04:58:00 Test Item Value Reference Range Interpretation [...] (test code = 20 U/L 6-55 347) [id number] 04:40:00 Test Item Value Reference Range Interpretation [...] of thrombosis is within 95-100% range. PROTHROMBIN [id number] 04:37:00 Test Item Value Reference Range Interpretation Comments PROTIME (BEAKER) (test code = 17.4 seconds 11.7-14.7 H 759) INR (BEAKER) (test code = 370) 1.4 <=5.9 RECOMMENDED COUMADIN/WARFARIN INR THERAPY RANGESSTANDARD DOSE: 2.0 - 3.0 Includes: PROPHYLAXIS for venous thrombosis, systemic embolization; TREATMENT for venous thrombosis and/or pulmonary embolus.HIGH RISK: Target INR is 2.5-3.5 for patients with mechanical heart valves.CBC W/PLT COUNT & AUTO [id number] 04:33:00 Test Item Value Reference Range Interpretation [...] PERCENT (BEAKER) (test code = 2801) CALCIUM, [id number] 04:29:00 Test Item Value Reference Range Interpretation Comments CALCIUM IONIZED (BEAKER) (test 1.13 mmol/L 1.12-1.27 code = 698) PH, BLOOD (BEAKER) (test code = 7.42 1810) HEMOGLOBIN AND [id number] 04:29:00 Test Item Value Reference Range Interpretation Comments HEMOGLOBIN (BEAKER) (test code = 8.6 GM/DL 13.7-17.5 L 410) HEMATOCRIT (BEAKER) (test code = 25.4 % 40.1-51.0 L 411) POCT-GLUCOSE [id number] 04:18:00 Test Item Value Reference Range Interpretation Comments POC-GLUCOSE METER 116 mg/dL 70-110 H TESTED AT [place] [address] (BEAKER) (test code = [facility] 1538) [address] HEMOGLOBIN AND [id number] 00:35:00 Test Item Value Reference Range Interpretation Comments HEMOGLOBIN (BEAKER) (test code = 8.7 GM/DL 13.7-17.5 L 410) HEMATOCRIT (BEAKER) (test code = 25.9 % 40.1-51.0 L 411) POCT-GLUCOSE [id number] 22:40:00 Test Item Value Reference Range Interpretation Comments POC-GLUCOSE METER 112 mg/dL 70-110 H TESTED AT [place] [address] (BEAKER) (test code = [facility] 1538) [address] HEMOGLOBIN AND [id number] 19:57:00 Test Item Value Reference Range Interpretation Comments HEMOGLOBIN (BEAKER) (test code = 9.1 GM/DL 13.7-17.5 L 410) HEMATOCRIT (BEAKER) (test code = 26.2 % 40.1-51.0 L 411) POCT-GLUCOSE [id number] 17:38:00 Test Item Value Reference Range Interpretation Comments POC-GLUCOSE METER 151 mg/dL 70-110 H TESTED AT [place] [address] (BEAKER) (test code = [facility] 1538) [address] [id number] 17:13:00 Test Item Value Reference Range Interpretation Comments POTASSIUM (BEAKER) (test code = 3.7 meq/L 3.5-5.1 379) HEMOGLOBIN AND [id number] 16:43:00 Test Item Value Reference Range Interpretation Comments HEMOGLOBIN (BEAKER) (test code = 9.2 GM/DL 13.7-17.5 L 410) HEMATOCRIT (BEAKER) (test code = 26.8 % 40.1-51.0 L 411) CBC W/PLT COUNT & AUTO [id number] 13:38:00 Test Item Value Reference Range Interpretation [...] TS. Specimen slightly ictericLACTIC ACID, ARTERIAL, WHOLE [id number] 13:21:00 Test Item Value Reference Range Interpretation Comments LACTATE BLOOD ARTERIAL (2) 0.8 mmol/L 0.5-2.2 (BEAKER) (test code = 2874) Effective 02/25/2016: Units/Reference Range ChangeNew: 0.5-2.2 mmol/L Previous: 5- 20 mg/dLSpecimen slightly ictericCALCIUM, [id number] 13:06:00 Test Item Value Reference Range Interpretation Comments CALCIUM IONIZED (BEAKER) (test 1.07 mmol/L 1.12-1.27 L code = 698) PH, BLOOD (BEAKER) (test code = 7.44 1810) PLATELET [id number] 13:01:00 Test Item Value Reference Range Interpretation Comments PLATELET COUNT (BEAKER) (test 138 K/CU MM 150-450 L code = 756) HEMOGLOBIN AND [id number] 13:01:00 Test Item Value Reference Range Interpretation Comments HEMOGLOBIN (BEAKER) (test code = 9.4 GM/DL 13.7-17.5 L 410) HEMATOCRIT (BEAKER) (test code = 27.7 % 40.1-51.0 L 411) POCT-GLUCOSE [id number] 12:02:00 Test Item Value Reference Range Interpretation Comments POC-GLUCOSE METER 175 mg/dL 70-110 H TESTED AT [facility] 6720 (BEAKER) (test code = [facility] 1537) [address] LACTIC ACID, VENOUS, WHOLE [id number] 11:44:00 Test Item Value Reference Range Interpretation Comments LACTATE BLOOD VENOUS (2) (BEAKER) 0.9 mmol/L 0.5-2.2 (test code = 2872) Effective 02/25/2016: Units/Reference Range ChangeNew: 0.5-2.2 mmol/L Previous: 5- 20 mg/dLLACTIC ACID, VENOUS, WHOLE [id number] 10:20:00 Test Item Value Reference Range Interpretation Comments LACTATE BLOOD VENOUS (2) (BEAKER) 0.9 mmol/L 0.5-2.2 (test code = 2872) Effective 02/25/2016: Units/Reference Range ChangeNew: 0.5-2.2 mmol/L Previous: 5- 20 mg/dOU-[id number] 10:00:00 Test Item Value Reference Range Interpretation [...] exclusion of thrombosis is within 95-100% range. [id number] 09:58:00 Test Item Value Reference Range Interpretation Comments PROTIME (BEAKER) (test code = 17.6 seconds 11.7-14.7 H 759) INR (BEAKER) (test code = 370) 1.5 <=5.9 PARTIAL THROMBOPLASTIN TIME 29.5 seconds 22.5-36.0 (BEAKER) (test code = 760) RECOMMENDED COUMADIN/WARFARIN INR THERAPY RANGESSTANDARD DOSE: 2.0 - 3.0 Includes: PROPHYLAXIS for venous thrombosis, systemic embolization; TREATMENT for venous thrombosis and/or pulmonary embolus.HIGH RISK: Target INR is 2.5-3.5 for patients with mechanical heart valves.[id number] 09:58:00 Test Item Value Reference Range Interpretation Comments FIBRINOGEN LEVEL (BEAKER) (test 151 mg/dl 225-434 L code = 658) CALCIUM, [id number] 09:31:00 Test Item Value Reference Range Interpretation Comments CALCIUM IONIZED (BEAKER) (test 1.09 mmol/L 1.12-1.27 L code = 698) PH, BLOOD (BEAKER) (test code = 7.45 1810) CBC W/PLT COUNT & AUTO [id number] 08:51:00 Test Item Value Reference Range Interpretation [...] Adequate (CELLAVISION)(BEAKER) (test code = 3438) PROTHROMBIN [id number] 08:06:00 Test Item Value Reference Range Interpretation Comments PROTIME (BEAKER) (test code = 17.3 seconds 11.7-14.7 H 759) INR (BEAKER) (test code = 370) 1.4 <=5.9 RECOMMENDED COUMADIN/WARFARIN INR THERAPY RANGESSTANDARD DOSE: 2.0 - 3.0 Includes: PROPHYLAXIS for venous thrombosis, systemic embolization; TREATMENT for venous thrombosis and/or pulmonary embolus.HIGH RISK: Target INR is 2.5-3.5 for patients with mechanical heart valves.[id number] 08:06:00 Test Item Value Reference Range Interpretation Comments PROTIME (BEAKER) (test code = 17.3 seconds 11.7-14.7 H 759) INR (BEAKER) (test code = 370) 1.4 <=5.9 PARTIAL THROMBOPLASTIN TIME 30.3 seconds 22.5-36.0 (BEAKER) (test code = 760) RECOMMENDED COUMADIN/WARFARIN INR THERAPY RANGESSTANDARD DOSE: 2.0 - 3.0 Includes: PROPHYLAXIS for venous thrombosis, systemic embolization; TREATMENT for venous thrombosis and/or pulmonary embolus.HIGH RISK: Target INR is 2.5-3.5 for patients with mechanical heart valves.[id number] 08:06:00 Test Item Value Reference Range Interpretation Comments FIBRINOGEN LEVEL (BEAKER) (test 153 mg/dl 225-434 L code = 658) [id number] 08:06:00 Test Item Value Reference Range Interpretation [...] of thrombosis is within 95-100% range.BLOOD GAS, [id number] 07:07:00 Test Item Value Reference Range Interpretation [...] (BEAKER) (test code = 1819) 100 CALCIUM, [id number] 07:07:00 Test Item Value Reference Range Interpretation Comments CALCIUM IONIZED (BEAKER) (test 1.08 mmol/L 1.12-1.27 L code = 698) PH, BLOOD (BEAKER) (test code = 7.48 1810) CALCIUM, [id number] 07:06:00 Test Item Value Reference Range Interpretation Comments CALCIUM IONIZED (BEAKER) (test 1.07 mmol/L 1.12-1.27 L code = 698) PH, BLOOD (BEAKER) (test code = 7.44 1810) [id number] 06:52:00 Test Item Value Reference Range Interpretation Comments MAGNESIUM (BEAKER) (test code = 1.5 mg/dL 1.6-2.6 L 627) [id number] 06:52:00 Test Item Value Reference Range Interpretation Comments POTASSIUM (BEAKER) (test code = 3.3 meq/L 3.5-5.1 L 379) [id number] 06:52:00 Test Item Value Reference Range Interpretation Comments SODIUM (BEAKER) (test code = 381) 142 meq/L 136-145 HEPATIC FUNCTION [id number] 06:52:00 Test Item Value Reference Range Interpretation [...] 0.4 % 0.0-5.0 code = 1414) PLATELET [id number] 05:34:00 Test Item Value Reference Range Interpretation Comments PLATELET COUNT (BEAKER) (test 146 K/CU MM 150-450 L code = 756) HEMOGLOBIN AND [id number] 05:34:00 Test Item Value Reference Range Interpretation Comments HEMOGLOBIN (BEAKER) (test code = 7.3 GM/DL 13.7-17.5 L 410) HEMATOCRIT (BEAKER) (test code = 22.2 % 40.1-51.0 L 411) CALCIUM, [id number] 05:26:00 Test Item Value Reference Range Interpretation Comments CALCIUM IONIZED (BEAKER) (test 0.96 mmol/L 1.12-1.27 L code = 698) PH, BLOOD (BEAKER) (test code = 7.40 1810) RAD, CHEST, 1 VIEW, NON [id number] 05:09:00Reason for exam:->check ET placementShould this be performed at the bedside?->YesFINAL REPORT RAD, CHEST, 1 VIEW, NON DEPT INDICATION: check ET placement COMPARI SON: Prior day's exam FINDINGS: Portable frontal view of the chest. IMPRESSION: Support Lines: Endotracheal tube terminates 4 cm above the rashmi. Stable right IJ central venous catheter. Lungs and pleura: Central subsegmental atelectasis. No effusion. No pneumothorax.Heart and mediastinum: Stable contours. Stable surgical changes.Additional findings: None. Signed: JR Smith Robert MDReport Verified Date/Time: 07/15/2018 05:09:29 Reading Location: [place] [id number] Body Reading Room [id number] 04:55:00 Test Item Value Reference Range Interpretation [...] thrombosis is within 95-100% range.POCT- BLOOD GASES, [id number] 04:54:00 Test Item Value Reference Range Interpretation Comments TEMP, CELSIUS-POC 36.8 (BEAKER) (test code = 1834) FIO2-POC (BEAKER) 100 TESTED AT [facility] 6720 (test code = 1835) [facility] [address] PH, ARTERIAL-POC 7.424 7.350-7.450 (BEAKER) (test code [...] -2.0-3.0 ARTERIAL-POC (BEAKER) (test code = 1841) [id number] 04:54:00 Test Item Value Reference Range Interpretation Comments POC-SODIUM ([facility]) 144 meq/L 135-148 TESTED [place] [address] (test code = 1542) [facility] [address] [id number] 04:54:00 Test Item Value Reference Range Interpretation Comments POC-POTASSIUM 3.2 meq/L 3.6-5.5 L TESTED AT [place] [address] ([facility]) (test code [facility] [address] = 1540) [id number] 04:54:00 Test Item Value Reference Range Interpretation Comments POC-GLUCOSE ([facility]) 170 mg/dL 70-110 H TESTED AT [place] [address] (test code = 1855) [facility] [address] POCT-CALCIUM [id number] 04:54:00 Test Item Value Reference Range Interpretation Comments POC-CALCIUM IONIZED 1.09 mmol/L 1.12-1.27 L TESTED [place] [address] ([facility]) (test code = [facility] 1531) [address] [id number] 04:54:00 Test Item Value Reference Range Interpretation Comments POC-HEMATOCRIT 22 % 40-50 L TESTED AT [place] [address] ([facility]) (test code = [facility] [address] 1851) [id number] 04:54:00 Test Item Value Reference Range Interpretation Comments POC-HEMOGLOBIN 7.5 g/dL 13.0-16.8 L TESTED AT [place] [address] ([facility]) (test code = [facility] 1856) [address]NGOWJG AT [address] [address] [id number] 04:53:00 Test Item Value Reference Range Interpretation Comments PROTIME ([facility]) (test code = 18.4 seconds 11.7-14.7 H 759) INR ([facility]) (test code = 370) 1.5 <=5.9 PARTIAL THROMBOPLASTIN TIME 33.3 seconds 22.5-36.0 ([facility]) (test code = 760) RECOMMENDED COUMADIN/WARFARIN INR THERAPY RANGESSTANDARD DOSE: 2.0 - 3.0 Includes: PROPHYLAXIS for venous thrombosis, systemic embolization; TREATMENT for venous thrombosis and/or pulmonary embolus.HIGH RISK: Target INR is 2.5-3.5 for patients with mechanical heart valves.[id number] 04:53:00 Test Item Value Reference Range Interpretation Comments FIBRINOGEN LEVEL (BEAKER) (test 164 mg/dl 225-434 L code = 658) HEMOGLOBIN AND [id number] 04:12:00 Test Item Value Reference Range Interpretation Comments HEMOGLOBIN (BEAKER) (test code = 7.3 GM/DL 13.7-17.5 L 410) HEMATOCRIT (BEAKER) (test code = 22.3 % 40.1-51.0 L 411) POCT-BLOOD GASES, [id number] 03:58:00 Test Item Value Reference Range Interpretation Comments TEMP, CELSIUS-POC 36.8 (BEAKER) (test code = 1834) FIO2-POC (BEAKER) 32 TESTED AT [place] [address] (test code = 1835) [facility] [address] PH, ARTERIAL-POC 7.426 7.350-7.450 (BEAKER) (test code [...] -2.0-3.0 ARTERIAL-POC (BEAKER) (test code = 1841) [id number] 03:58:00 Test Item Value Reference Range Interpretation Comments POC-SODIUM (BEAKER) 143 meq/L 135-148 TESTED A T [place] [address] (test code = 1542) [facility] [place] [address] [id number] 03:58:00 Test Item Value Reference Range Interpretation Comments POC-POTASSIUM 4.3 meq/L 3.6-5.5 TESTED AT [facility] 6720 (BEAKER) (test code [facility] [address] = 1540) [id number] 03:58:00 Test Item Value Reference Range Interpretation Comments POC-GLUCOSE ([facility]) 178 mg/dL 70-110 H TESTED AT [place] [address] (test code = 1855) [place] [address] POCT-CALCIUM [id number] 03:58:00 Test Item Value Reference Range Interpretation Comments POC-CALCIUM IONIZED 0.95 mmol/L 1.12-1.27 L TESTED A T [place] [address] ([facility]) (test code = [facility] 1536) [address] [id number] 03:58:00 Test Item Value Reference Range Interpretation Comments POC-HEMATOCRIT 17 % 40-50 L TESTED AT [place] [address] ([facility]) (test code = [facility] [address] 1857) [id number] 03:58:00 Test Item Value Reference Range Interpretation Comments POC-HEMOGLOBIN 5.8 g/dL 13.0-16.8 LL TESTED AT [place] [address] ([facility]) (test code = [facility] 1856) 379[address]OZPSCC AT [place] [address] [place] [address] [id number] 03:23:00 Test Item Value Reference Range Interpretation Comments PROTIME (ASIM) (test code = 17.2 seconds 11.7-14.7 H 759) INR ([facility]) (test code = 370) 1.4 <=5.9 PARTIAL THROMBOPLASTIN TIME 32.7 seconds 22.5-36.0 ([facility]) (test code = 760) RECOMMENDED COUMADIN/WARFARIN INR THERAPY RANGESSTANDARD DOSE: 2.0 - 3.0 Includes: PROPHYLAXIS for venous thrombosis, systemic embolization; TREATMENT for venous thrombosis and/or pulmonary embolus.HIGH RISK: Target INR is 2.5-3.5 for patients with mechanical heart valves.PROTHROMBIN [id number] 03:22:00 Test Item Value Reference Range Interpretation Comments PROTIME (BEAKER) (test code = 17.2 seconds 11.7-14.7 H 759) [facility] (test code = 370) 1.4 <=5.9 RECOMMENDED COUMADIN/WARFARIN INR THERAPY RANGESSTANDARD DOSE: 2.0 - 3.0 Includes: PROPHYLAXIS for venous thrombosis, systemic embolization; TREATMENT for venous thrombosis and/or pulmonary embolus.HIGH RISK: Target INR is 2.5-3.5 for patients with mechanical heart valves.BASIC METABOLIC [id number] 02:56:00 Test Item Value Reference Range Interpretation [...] APPLICABLE FOR DIALYSIS PATIEN TS. POCT-BLOOD GASES, [id number] 02:24:00 Test Item Value Reference Range Interpretation Comments TEMP, CELSIUS-POC 36.1 (BEAKER) (test code = 1834) FIO2-POC (BEAKER) 32 TESTED AT [facility] 6720 (test code = 1835) [place] [address] PH, VENOUS-POC 7.432 7.320-7.420 H (BEAKER) (test code = 1842) PCO2, VENOUS-POC 46.6 mm Hg 41.0-51.0 (BEAKER) (test code = 1843) PO2, VENOUS-POC 27.0 mm Hg 25.0-40.0 (BEAKER) (test code = 1844) SO2, VENOUS-POC 54.0 % 40.0-70.0 (BEAKER) (test code = 1845) HCO3, VENOUS-POC 31.3 meq/L 21.0-29.0 H (BEAKER) (test code = 1846) BASE EXCESS, 7.0 meq/L -2.0-3.0 H VENOUS-POC ([facility]) (test code = 1847) [id number] 02:24:00 Test Item Value Reference Range Interpretation Comments [facility] 143 meq/L 135-148 TESTED [place] [address] (test code = 1542) [facility] [address] [id number] 02:24:00 Test Item Value Reference Range Interpretation Comments POC-POTASSIUM 3.1 meq/L 3.6-5.5 L TESTED AT [place] [address] ([facility]) (test code [facility] [address] = 1540) [id number] 02:24:00 Test Item Value Reference Range Interpretation Comments POC-GLUCOSE ([facility]) 134 mg/dL 70-110 H TESTED AT [place] [address] (test code = 1855) [place] [facility] [address] POCT-CALCIUM [id number] 02:24:00 Test Item Value Reference Range Interpretation Comments POC-CALCIUM IONIZED 1.20 mmol/L 1.12-1.27 TESTED [place] [address] ([facility]) (test code = [place] 1536) [address] [id number] 02:24:00 Test Item Value Reference Range Interpretation Comments POC-HEMATOCRIT 18 % 40-50 L TESTED AT [place] [address] ([facility]) (test code = GENEVI[place]E Bruce [facility] [address] 1237) [id number] 02:24:00 Test Item Value Reference Range Interpretation Comments POC-HEMOGLOBIN 6.1 g/dL 13.0-16.8 L TESTED AT [place] [address] ([facility]) (test code = [place] 1856) 313[address]GATUOY AT [place] [address] [place] [address] POCT-GLUCOSE [id number] 20:58:00 Test Item Value Reference Range Interpretation Comments POC-GLUCOSE METER 196 mg/dL 70-110 H TESTED AT [place] [address] ([facility]) (test code = [place] 1538) [address] POCT-GLUCOSE [id number] 17:05:00 Test Item Value Reference Range Interpretation Comments POC-GLUCOSE METER 236 mg/dL 70-110 H TESTED AT [facility] 6720 (BEAKER) (test code = GENEV[place] 1538) [address] POCT-GLUCOSE [id number] 12:04:00 Test Item Value Reference Range Interpretation Comments POC-GLUCOSE METER 115 mg/dL 70-110 H TESTED AT [facility] 6720 (BEAKER) (test code = GENEV[place]E [place] 1538) [address] RAD, CHEST, 1 VIEW, NON [id number] 10:09:00Reason for exam:->to assess for consolidation, pleural effusions, pulmonary edemaShould this be performed at the bedside?->YesFINAL REPORT Chest one view compared to July 09 Discussion: Mild interstitial congestion. No effusion or pneumothorax. Right IJ line in place. Signed: Felicitas Rivera MDReport Verified Date/Time: 07/14/2018 10:09:51 Reading Location: [facility] Radiology Reading Room BASIC METABOLIC [id number] 08:26:00 Test Item Value Reference Range Interpretation [...] APPLICABLE FOR DIALYSIS PATIEN TS. BLOOD GAS, [id number] 08:09:00 Test Item Value Reference Range Interpretation [...] code = 1819) 36.0 % HEMOGLOBIN AND [id number] 08:07:00 Test Item Value Reference Range Interpretation Comments HEMOGLOBIN (BEAKER) (test code = 7.8 GM/DL 13.7-17.5 L 410) HEMATOCRIT (BEAKER) (test code = 24.4 % 40.1-51.0 L 411) POCT-GLUCOSE [id number] 06:12:00 Test Item Value Reference Range Interpretation Comments POC-GLUCOSE METER 95 mg/dL 70-110 TESTED AT [facility] 6720 (BEAKER) (test code = [place] [address] 1538) OXYGEN SATURATION, [id number] 05:31:00 Test Item Value Reference Range Interpretation Comments O2 SATURATION (MEASURED) (BEAKER) 97.9 % (test code = 1455) Obtain from CVP portVANCOMYCIN LEVEL, [id number] 05:18:00 Test Item Value Reference Range Interpretation Comments VANCOMYCIN RANDOM (BEAKER) (test 20.5 ug/mL code = 523) Reference Range: No NormalsBLOOD GAS, [id number] 05:01:00 Test Item Value Reference Range Interpretation [...] (BEAKER) (test code = 1819) 32.0 % [id number] 04:55:00 Test Item Value Reference Range Interpretation Comments MAGNESIUM (BEAKER) (test code = 1.9 mg/dL 1.6-2.6 627) BASIC METABOLIC [id number] 04:55:00 Test Item Value Reference Range Interpretation [...] APPLICABLE FOR DIALYSIS PATIEN TS. HEPATIC FUNCTION [id number] 04:55:00 Test Item Value Reference Range Interpretation [...] 53 U/L 5-34 H 353) ALT (SGPT) (AKER) (test code = 35 U/L 6-55 347) PROTHROMBIN [id number] 04:28:00 Test Item Value Reference Range Interpretation Comments PROTIME ([facility]) (test code = 17.3 seconds 11.7-14.7 H 759) INR ([facility]) (test code = 370) 1.4 <=5.9 RECOMMENDED COUMADIN/WARFARIN INR THERAPY RANGESSTANDARD DOSE: 2.0 - 3.0 Includes: PROPHYLAXIS for venous thrombosis, systemic embolization; TREATMENT for venous thrombosis and/or pulmonary embolus.HIGH RISK: Target INR is 2.5-3.5 for patients with mechanical heart valves.HEMOGLOBIN AND [id number] 04:22:00 Test Item Value Reference Range Interpretation Comments HEMOGLOBIN ([facility]) (test code = 8.2 GM/DL 13.7-17.5 L 410) HEMATOCRIT ([facility]) (test code = 25.7 % 40.1-51.0 L 411) POCT-GLUCOSE [id number] 00:22:00 Test Item Value Reference Range Interpretation Comments POC-GLUCOSE METER 96 mg/dL 70-110 TESTED AT [place] [address] ([facility]) (test code = [facility] [address] 1538) HEMOGLOBIN AND [id number] 21:02:00 Test Item Value Reference Range Interpretation Comments HEMOGLOBIN (ELMER) (test code = 8.5 GM/DL 13.7-17.5 L 410) HEMATOCRIT ([facility]) (test code = 26.1 % 40.1-51.0 L 411) POCT-GLUCOSE [id number] 17:53:00 Test Item Value Reference Range Interpretation Comments POC-GLUCOSE METER 123 mg/dL 70-110 H TESTED AT [place] [address] ([facility]) (test code = [facility] 1538) [address] [id number] 16:37:00 Test Item Value Reference Range Interpretation Comments MAGNESIUM ([facility]) (test code = 2.1 mg/dL 1.6-2.6 627) BASIC METABOLIC [id number] 16:37:00 Test Item Value Reference Range Interpretation [...] APPLICABLE FOR DIALYSIS PATIEN TS. HEPATITIS B [id number] 13:03:00 Test Item Value Reference Range Interpretation Comments HEPATITIS B CORE TOTAL ANTIBODY Nonreactive Nonreactive (BEAKER) (test code = 497) HEPATITIS B SURFACE ANTIBODY 14.4 mIU/mL <8.0 H (BEAKER) (test code = 647) HEPATITIS B SURFACE ANTIGEN (2) Nonreactive Nonreactive (BEAKER) (test code = 2585) POCT-GLUCOSE [id number] 12:24:00 Test Item Value Reference Range Interpretation Comments POC-GLUCOSE METER 123 mg/dL 70-110 H TESTED AT [facility] 6720 (BEAKER) (test code = GENEVIEVE Bruce [facility] 1538) [address] HEMOGLOBIN AND [id number] 12:07:00 Test Item Value Reference Range Interpretation Comments HEMOGLOBIN (BEAKER) (test code = 8.1 GM/DL 13.7-17.5 L 410) HEMATOCRIT (BEAKER) (test code = 25.2 % 40.1-51.0 L 411) BLOOD GAS, [id number] 09:34:00 Test Item Value Reference Range Interpretation [...] (test code = 1819) 21.0 % POCT-GLUCOSE [id number] 06:31:00 Test Item Value Reference Range Interpretation Comments POC-GLUCOSE METER 123 mg/dL 70-110 H TESTED AT [facility] 6720 (BEAKER) (test code = [place] 1538) [address] CALCIUM, [id number] 04:56:00 Test Item Value Reference Range Interpretation Comments CALCIUM IONIZED (BEAKER) (test 1.17 mmol/L 1.12-1.27 code = 698) PH, BLOOD (BEAKER) (test code = 7.41 1810) OXYGEN SATURATION, [id number] 04:55:00 Test Item Value Reference Range Interpretation Comments O2 SATURATION (MEASURED) (BEAKER) 84.2 % (test code = 1455) Obtain from CVP [id number] 04:31:00 Test Item Value Reference Range Interpretation Comments POTASSIUM (BEAKER) (test code = 3.9 meq/L 3.5-5.1 379) [id number] 04:31:00 Test Item Value Reference Range Interpretation Comments MAGNESIUM (BEAKER) (test code = 2.2 mg/dL 1.6-2.6 627) [id number] 04:31:00 Test Item Value Reference Range Interpretation Comments SODIUM (BEAKER) (test code = 381) 140 meq/L 136-145 HEPATIC FUNCTION [id number] 04:31:00 Test Item Value Reference Range Interpretation [...] code = 32 U/L 6-55 347) PROTHROMBIN [id number] 04:24:00 Test Item Value Reference Range Interpretation Comments PROTIME (BEAKER) (test code = 18.0 seconds 11.7-14.7 H 759) INR (BEAKER) (test code = 370) 1.5 <=5.9 RECOMMENDED COUMADIN/WARFARIN INR THERAPY RANGESSTANDARD DOSE: 2.0 - 3.0 Includes: PROPHYLAXIS for venous thrombosis, systemic embolization; TREATMENT for venous thrombosis and/or pulmonary embolus.HIGH RISK: Target INR is 2.5-3.5 for patients with mechanical heart valves.CBC W/PLT COUNT & AUTO [id number] 04:14:00 Test Item Value Reference Range Interpretation [...] H PERCENT (BEAKER) (test code = 2801) [id number] 02:44:00 Test Item Value Reference Range Interpretation Comments POTASSIUM (BEAKER) (test code = 3.4 meq/L 3.5-5.1 L 379) HEMOGLOBIN AND [id number] 02:33:00 Test Item Value Reference Range Interpretation Comments HEMOGLOBIN (BEAKER) (test code = 8.3 GM/DL 13.7-17.5 L 410) HEMATOCRIT (BEAKER) (test code = 25.6 % 40.1-51.0 L 411) POCT-GLUCOSE [id number] 00:56:00 Test Item Value Reference Range Interpretation Comments POC-GLUCOSE METER 104 mg/dL 70-110 TESTED AT [facility] 6720 (BEAKER) (test code = [place] 1538) [address] BASIC METABOLIC [id number] 23:41:00 Test Item Value Reference Range Interpretation [...] S NOT APPLICABLE FOR DIALYSIS PATIEN TS. [id number] 18:36:00 Test Item Value Reference Range Interpretation Comments POTASSIUM (BEAKER) (test code = 3.9 meq/L 3.5-5.1 379) [id number] 18:36:00 Test Item Value Reference Range Interpretation Comments MAGNESIUM (BEAKER) (test code = 1.9 mg/dL 1.6-2.6 627) [id number] 18:36:00 Test Item Value Reference Range Interpretation Comments PHOSPHORUS (BEAKER) (test code = 3.5 mg/dL 2.3-4.7 604) [id number] 18:36:00 Test Item Value Reference Range Interpretation Comments SODIUM (BEAKER) (test code = 381) 139 meq/L 136-145 BASIC METABOLIC [id number] 18:36:00 Test Item Value Reference Range Interpretation [...] NOT APPLICABLE FOR DIALYSIS PATIEN TS. PH, [id number] 18:28:00 Test Item Value Reference Range Interpretation Comments PH ARTERIAL (BEAKER) (test code = 383) 7.44 7.35-7.45 CALCIUM, [id number] 18:28:00 Test Item Value Reference Range Interpretation Comments CALCIUM IONIZED (BEAKER) (test 1.16 mmol/L 1.12-1.27 code = 698) PH, BLOOD (BEAKER) (test code = 7.44 1810) HEMOGLOBIN AND [id number] 18:21:00 Test Item Value Reference Range Interpretation Comments HEMOGLOBIN (BEAKER) (test code = 8.6 GM/DL 13.7-17.5 L 410) HEMATOCRIT (BEAKER) (test code = 26.2 % 40.1-51.0 L 411) POCT-GLUCOSE [id number] 17:47:00 Test Item Value Reference Range Interpretation Comments POC-GLUCOSE METER 114 mg/dL 70-110 H TESTED AT [facility] 6720 (BEAKER) (test code = [place] 1538) [address] [id number] 14:40:00 Test Item Value Reference Range Interpretation Comments PROCALCITONIN (BEAKER) (test code 0.65 ng/mL <0.05 H = 3036) SEPSIS RISK (ng/mL)Low: 0.05-0.50Intermediate: 0.51-2.00High: >=2.01POTASSIUM 2018-07-12 13:50:00 Test Item Value Reference Range Interpretation Comments POTASSIUM (BEAKER) (test code = 4.1 meq/L 3.5-5.1 379) BASIC METABOLIC [id number] 13:50:00 Test Item Value Reference Range Interpretation [...] APPLICABLE FOR DIALYSIS PATIEN TS. VANCOMYCIN LEVEL, [id number] 13:49:00 Test Item Value Reference Range Interpretation Comments VANCOMYCIN TROUGH (BEAKER) (test 16.0 ug/mL 10.0-20.0 code = 522) CALCIUM, [id number] 13:32:00 Test Item Value Reference Range Interpretation Comments CALCIUM IONIZED (BEAKER) (test 1.17 mmol/L 1.12-1.27 code = 698) PH, BLOOD (BEAKER) (test code = 7.45 1810) POCT-GLUCOSE [id number] 13:32:00 Test Item Value Reference Range Interpretation Comments POC-GLUCOSE METER 151 mg/dL 70-110 H TESTED AT [facility] 6720 (BEAKER) (test code = [place] 1538) [address] BLOOD GAS, [id number] 10:06:00 Test Item Value Reference Range Interpretation [...] (BEAKER) (test code = 1819) 28.0 % [id number] 08:56:00 Test Item Value Reference Range Interpretation Comments POTASSIUM (BEAKER) (test code = 4.2 meq/L 3.5-5.1 379) BASIC METABOLIC [id number] 08:56:00 Test Item Value Reference Range Interpretation [...] APPLICABLE FOR DIALYSIS PATIEN TS. HEMOGLOBIN AND [id number] 08:38:00 Test Item Value Reference Range Interpretation Comments HEMOGLOBIN (BEAKER) (test code = 7.9 GM/DL 13.7-17.5 L 410) HEMATOCRIT (BEAKER) (test code = 23.9 % 40.1-51.0 L 411) BLOOD [id number] 06:00:00 Test Item Value Reference Range Interpretation Comments CULTURE (BEAKER) (test No growth in 5 days code = 1095) BLOOD [id number] 06:00:00 Test Item Value Reference Range Interpretation Comments CULTURE (BEAKER) (test No growth in 5 days code = 1095) POCT-GLUCOSE [id number] 05:29:00 Test Item Value Reference Range Interpretation Comments POC-GLUCOSE METER 118 mg/dL 70-110 H TESTED AT [facility] 6720 (BEAKER) (test code = [place] 1538) [address] CALCIUM, [id number] 04:13:00 Test Item Value Reference Range Interpretation Comments CALCIUM IONIZED (BEAKER) (test 1.18 mmol/L 1.12-1.27 code = 698) PH, BLOOD (BEAKER) (test code = 7.47 1810) [id number] 04:13:00 Test Item Value Reference Range Interpretation Comments POTASSIUM (BEAKER) (test code = 4.4 meq/L 3.5-5.1 379) [id number] 04:13:00 Test Item Value Reference Range Interpretation Comments MAGNESIUM (BEAKER) (test code = 1.9 mg/dL 1.6-2.6 627) [id number] 04:13:00 Test Item Value Reference Range Interpretation Comments PHOSPHORUS (BEAKER) (test code = 2.9 mg/dL 2.3-4.7 604) [id number] 04:13:00 Test Item Value Reference Range Interpretation Comments SODIUM (BEAKER) (test code = 381) 140 meq/L 136-145 HEPATIC FUNCTION [id number] 04:13:00 Test Item Value Reference Range Interpretation [...] code = 31 U/L 6-55 347) PROTHROMBIN [id number] 04:12:00 Test Item Value Reference Range Interpretation Comments PROTIME (BEAKER) (test code = 15.8 seconds 11.7-14.7 H 759) INR (BEAKER) (test code = 370) 1.3 <=5.9 RECOMMENDED COUMADIN/WARFARIN INR THERAPY RANGESSTANDARD DOSE: 2.0 - 3.0 Includes: PROPHYLAXIS for venous thrombosis, systemic embolization; TREATMENT for venous thrombosis and/or pulmonary embolus.HIGH RISK: Target INR is 2.5-3.5 for patients with mechanical heart valves.CBC W/PLT COUNT & AUTO [id number] 04:01:00 Test Item Value Reference Range Interpretation [...] PERCENT (BEAKER) (test code = 2801) POCT-GLUCOSE [id number] 00:06:00 Test Item Value Reference Range Interpretation Comments POC-GLUCOSE METER 81 mg/dL 70-110 TESTED AT [facility] 6720 (BEAKER) (test code = GENEVIEVE Bruce [facility] [address] 1538) HEMOGLOBIN AND [id number] 23:58:00 Test Item Value Reference Range Interpretation Comments HEMOGLOBIN (BEAKER) (test code = 8.0 GM/DL 13.7-17.5 L 410) HEMATOCRIT (BEAKER) (test code = 24.2 % 40.1-51.0 L 411) [id number] 21:58:00 Test Item Value Reference Range Interpretation Comments POTASSIUM (BEAKER) (test code = 4.2 meq/L 3.5-5.1 379) BASIC METABOLIC [id number] 21:58:00 Test Item Value Reference Range Interpretation [...] NOT APPLICABLE FOR DIALYSIS PATIEN TS. CALCIUM, [id number] 21:53:00 Test Item Value Reference Range Interpretation Comments CALCIUM IONIZED (BEAKER) (test 1.18 mmol/L 1.12-1.27 code = 698) PH, BLOOD (BEAKER) (test code = 7.48 1810) [id number] 18:52:00 Test Item Value Reference Range Interpretation Comments LIPASE (BEAKER) (test code = 749) 57 U/L 8-78 [id number] 18:35:00 Test Item Value Reference Range Interpretation Comments POTASSIUM (BEAKER) (test code = 4.5 meq/L 3.5-5.1 379) [id number] 18:35:00 Test Item Value Reference Range Interpretation Comments MAGNESIUM (BEAKER) (test code = 1.9 mg/dL 1.6-2.6 627) [id number] 18:35:00 Test Item Value Reference Range Interpretation Comments PHOSPHORUS (BEAKER) (test code = 3.1 mg/dL 2.3-4.7 604) [id number] 18:35:00 Test Item Value Reference Range Interpretation Comments SODIUM (BEAKER) (test code = 381) 140 meq/L 136-145 BASIC METABOLIC [id number] 18:35:00 Test Item Value Reference Range Interpretation [...] APPLICABLE FOR DIALYSIS PATIEN TS. HEMOGLOBIN AND [id number] 18:16:00 Test Item Value Reference Range Interpretation Comments HEMOGLOBIN (BEAKER) (test code = 7.7 GM/DL 13.7-17.5 L 410) HEMATOCRIT (BEAKER) (test code = 23.7 % 40.1-51.0 L 411) PH, [id number] 18:07:00 Test Item Value Reference Range Interpretation Comments PH ARTERIAL (BEAKER) (test code = 383) 7.47 7.35-7.45 H POCT-GLUCOSE [id number] 17:24:00 Test Item Value Reference Range Interpretation Comments POC-GLUCOSE METER 151 mg/dL 70-110 H TESTED AT [place] [address] ([facility]) (test code = [facility] 1538) [address] [id number] 12:50:00 Test Item Value Reference Range Interpretation Comments POTASSIUM (BEAKER) (test code = 5.1 meq/L 3.5-5.1 379) CALCIUM, [id number] 12:37:00 Test Item Value Reference Range Interpretation Comments CALCIUM IONIZED (BEAKER) (test 1.15 mmol/L 1.12-1.27 code = 698) PH, BLOOD (BEAKER) (test code = 7.46 1810) HEMOGLOBIN AND [id number] 12:32:00 Test Item Value Reference Range Interpretation Comments HEMOGLOBIN (BEAKER) (test code = 8.0 GM/DL 13.7-17.5 L 410) HEMATOCRIT (BEAKER) (test code = 24.5 % 40.1-51.0 L 411) POCT-GLUCOSE [id number] 12:04:00 Test Item Value Reference Range Interpretation Comments POC-GLUCOSE METER 191 mg/dL 70-110 H TESTED AT [place] [address] ([facility]) (test code = [facility] 1538) [address] [id number] 09:30:00 Test Item Value Reference Range Interpretation Comments POTASSIUM (BEAKER) (test code = 4.9 meq/L 3.5-5.1 379) [id number] 09:28:00 Test Item Value Reference Range Interpretation Comments PARTIAL THROMBOPLASTIN TIME 33.3 seconds 22.5-36.0 (BEAKER) (test code = 760) PROTHROMBIN [id number] 09:27:00 Test Item Value Reference Range Interpretation Comments PROTIME (BEAKER) (test code = 15.6 seconds 11.7-14.7 H 759) INR (BEAKER) (test code = 370) 1.2 <=5.9 RECOMMENDED COUMADIN/WARFARIN INR THERAPY RANGESSTANDARD DOSE: 2.0 - 3.0 Includes: PROPHYLAXIS for venous thrombosis, systemic embolization; TREATMENT for venous thrombosis and/or pulmonary embolus.HIGH RISK: Target INR is 2.5-3.5 for patients with mechanical heart valves.[id number] 09:22:00 Test Item Value Reference Range Interpretation Comments POTASSIUM (BEAKER) (test code = 4.9 meq/L 3.5-5.1 379) [id number] 09:22:00 Test Item Value Reference Range Interpretation Comments MAGNESIUM (BEAKER) (test code = 2.1 mg/dL 1.6-2.6 627) [id number] 09:22:00 Test Item Value Reference Range Interpretation Comments PHOSPHORUS (BEAKER) (test code = 3.6 mg/dL 2.3-4.7 604) [id number] 09:22:00 Test Item Value Reference Range Interpretation Comments SODIUM (BEAKER) (test code = 381) 140 meq/L 136-145 BASIC METABOLIC [id number] 09:22:00 Test Item Value Reference Range Interpretation [...] APPLICABLE FOR DIALYSIS PATIEN TS. HEPATIC FUNCTION [id number] 09:22:00 Test Item Value Reference Range Interpretation [...] U/L 6-55 347) SPUTUM CULTURE + GRAM [id number] 08:37:00 Test Item Value Reference Interpretation Comments [...] 0-5 epithelial (BEAKER) (test code = cells 452033) GRAM STAIN RESULT No organisms (BEAKER) (test code = seen 619792) POCT-GLUCOSE [id number] 06:55:00 Test Item Value Reference Range Interpretation Comments POC-GLUCOSE METER 153 mg/dL 70-110 H TESTED AT [facility] 6720 (BEAKER) (test code = [place] 1538) [address] [id number] 06:01:00 Test Item Value Reference Range Interpretation Comments PROTIME (BEAKER) (test code = 15.4 seconds 11.7-14.7 H 759) INR (BEAKER) (test code = 370) 1.2 <=5.9 PARTIAL THROMBOPLASTIN TIME 34.0 seconds 22.5-36.0 (BEAKER) (test code = 760) RECOMMENDED COUMADIN/WARFARIN INR THERAPY RANGESSTANDARD DOSE: 2.0 - 3.0 Includes: PROPHYLAXIS for venous thrombosis, systemic embolization; TREATMENT for venous thrombosis and/or pulmonary embolus.HIGH RISK: Target INR is 2.5-3.5 for patients with mechanical heart valves.OXYGEN SATURATION, [id number] 06:01:00 Test Item Value Reference Range Interpretation Comments O2 SATURATION (MEASURED) (BEAKER) 85.1 % (test code = 1455) Obtain from CVP portCALCIUM, [id number] 06:01:00 Test Item Value Reference Range Interpretation Comments CALCIUM IONIZED (BEAKER) (test 1.13 mmol/L 1.12-1.27 code = 698) PH, BLOOD (BEAKER) (test code = 7.41 1810) CBC W/PLT COUNT & AUTO [id number] 05:43:00 Test Item Value Reference Range Interpretation [...] (BEAKER) (test code = 2801) HEMOGLOBIN AND [id number] 05:41:00 Test Item Value Reference Range Interpretation Comments HEMOGLOBIN (BEAKER) (test code = 7.7 GM/DL 13.7-17.5 L 410) HEMATOCRIT (BEAKER) (test code = 23.6 % 40.1-51.0 L 411) BLOOD GAS, [id number] 05:34:00 Test Item Value Reference Range Interpretation [...] 1819) 25.0 % LACTIC ACID, ARTERIAL, WHOLE [id number] 05:18:00 Test Item Value Reference Range Interpretation Comments LACTATE BLOOD ARTERIAL (2) 0.6 mmol/L 0.5-2.2 (BEAKER) (test code = 2874) Effective 02/25/2016: Units/Reference Range ChangeNew: 0.5-2.2 mmol/L Previous: 5- 20 mg/[id number] 01:03:00 Test Item Value Reference Range Interpretation Comments POTASSIUM (BEAKER) (test code = 4.7 meq/L 3.5-5.1 379) HEMOGLOBIN AND [id number] 00:48:00 Test Item Value Reference Range Interpretation Comments HEMOGLOBIN (BEAKER) (test code = 7.9 GM/DL 13.7-17.5 L 410) HEMATOCRIT (BEAKER) (test code = 24.1 % 40.1-51.0 L 411) POCT-GLUCOSE [id number] 23:46:00 Test Item Value Reference Range Interpretation Comments POC-GLUCOSE METER 146 mg/dL 70-110 H TESTED AT [facility] [address] (BEAKER) (test code = GENEVIEVE Bruce [place] 1538) [id number] [id number] 20:23:00 Test Item Value Reference Range Interpretation Comments POTASSIUM (BEAKER) (test code = 4.7 meq/L 3.5-5.1 379) PROTHROMBIN [id number] 20:14:00 Test Item Value Reference Range Interpretation Comments PROTIME (BEAKER) (test code = 16.1 seconds 11.7-14.7 H 759) INR (BEAKER) (test code = 370) 1.3 <=5.9 RECOMMENDED COUMADIN/WARFARIN INR THERAPY RANGESSTANDARD DOSE: 2.0 - 3.0 Includes: PROPHYLAXIS for venous thrombosis, systemic embolization; TREATMENT for venous thrombosis and/or pulmonary embolus.HIGH RISK: Target INR is 2.5-3.5 for patients with mechanical heart valves.[id number] 20:14:00 Test Item Value Reference Range Interpretation Comments PARTIAL THROMBOPLASTIN TIME 36.0 seconds 22.5-36.0 (BEAKER) (test code = 760) CALCIUM, [id number] 20:02:00 Test Item Value Reference Range Interpretation Comments CALCIUM IONIZED (BEAKER) (test 1.14 mmol/L 1.12-1.27 code = 698) PH, BLOOD (BEAKER) (test code = 7.42 1810) HEMOGLOBIN AND [id number] 19:04:00 Test Item Value Reference Range Interpretation Comments HEMOGLOBIN (BEAKER) (test code = 8.0 GM/DL 13.7-17.5 L 410) HEMATOCRIT (BEAKER) (test code = 24.3 % 40.1-51.0 L 411) [id number] 16:46:00 Test Item Value Reference Range Interpretation Comments POTASSIUM (BEAKER) (test code = 5.0 meq/L 3.5-5.1 379) [id number] 16:46:00 Test Item Value Reference Range Interpretation Comments MAGNESIUM (BEAKER) (test code = 2.1 mg/dL 1.6-2.6 627) [id number] 16:46:00 Test Item Value Reference Range Interpretation Comments PHOSPHORUS (BEAKER) (test code = 3.1 mg/dL 2.3-4.7 604) [id number] 16:46:00 Test Item Value Reference Range Interpretation Comments SODIUM (BEAKER) (test code = 381) 138 meq/L 136-145 PLATELET [id number] 16:34:00 Test Item Value Reference Range Interpretation Comments PLATELET COUNT (BEAKER) (test code 57 K/CU MM 150-450 L = 756) BLOOD GAS, [id number] 16:31:00 Test Item Value Reference Range Interpretation [...] (test 37.0 C code = 1818) POCT-GLUCOSE [id number] 16:25:00 Test Item Value Reference Range Interpretation Comments POC-GLUCOSE METER 135 mg/dL 70-110 H TESTED AT [facility] 6720 (BEAKER) (test code = [place] 1538) [address] HEMOGLOBIN AND [id number] 14:50:00 Test Item Value Reference Range Interpretation Comments HEMOGLOBIN (BEAKER) (test code = 7.0 GM/DL 13.7-17.5 L 410) HEMATOCRIT (BEAKER) (test code = 21.1 % 40.1-51.0 L 411) [id number] 12:41:00 Test Item Value Reference Range Interpretation Comments LIPASE (BEAKER) (test code = 749) 44 U/L 8-78 [id number] 12:41:00 Test Item Value Reference Range Interpretation Comments POTASSIUM (BEAKER) (test code = 4.7 meq/L 3.5-5.1 379) LACTIC ACID, ARTERIAL, WHOLE [id number] 12:34:00 Test Item Value Reference Range Interpretation Comments LACTATE BLOOD ARTERIAL (2) 0.6 mmol/L 0.5-2.2 (BEAKER) (test code = 2874) Effective 02/25/2016: Units/Reference Range ChangeNew: 0.5-2.2 mmol/L Previous: 5- 20 mg/dLBLOOD GAS, [id number] 12:32:00 Test Item Value Reference Range Interpretation [...] (test code = 1819) 24.0 % CALCIUM, [id number] 12:32:00 Test Item Value Reference Range Interpretation Comments CALCIUM IONIZED (BEAKER) (test 1.13 mmol/L 1.12-1.27 code = 698) PH, BLOOD (BEAKER) (test code = 7.49 1810) [id number] 12:26:00 Test Item Value Reference Range Interpretation Comments PARTIAL THROMBOPLASTIN TIME 38.8 seconds 22.5-36.0 H (BEAKER) (test code = 760) PROTHROMBIN [id number] 12:25:00 Test Item Value Reference Range Interpretation Comments PROTIME (BEAKER) (test code = 16.4 seconds 11.7-14.7 H 759) INR (BEAKER) (test code = 370) 1.3 <=5.9 RECOMMENDED COUMADIN/WARFARIN INR THERAPY RANGESSTANDARD DOSE: 2.0 - 3.0 Includes: PROPHYLAXIS for venous thrombosis, systemic embolization; TREATMENT for venous thrombosis and/or pulmonary embolus.HIGH RISK: Target INR is 2.5-3.5 for patients with mechanical heart valves.POCT-GLUCOSE [id number] 12:04:00 Test Item Value Reference Range Interpretation Comments POC-GLUCOSE METER 121 mg/dL 70-110 H TESTED AT [facility] 6720 (BEAKER) (test code = [place] 6644) [address] HEMOGLOBIN AND [id number] 10:46:00 Test Item Value Reference Range Interpretation Comments HEMOGLOBIN (BEAKER) (test code = 7.1 GM/DL 13.7-17.5 L 410) HEMATOCRIT (BEAKER) (test code = 21.1 % 40.1-51.0 L 411) CALCIUM, [id number] 09:20:00 Test Item Value Reference Range Interpretation Comments CALCIUM IONIZED (BEAKER) (test 1.13 mmol/L 1.12-1.27 code = 698) PH, BLOOD (BEAKER) (test code = 7.44 1810) CBC W/PLT COUNT & AUTO [id number] 08:02:00 Test Item Value Reference Range Interpretation [...] few (test code = 478) BASIC METABOLIC [id number] 07:43:00 Test Item Value Reference Range Interpretation [...] S NOT APPLICABLE FOR DIALYSIS PATIEN TS. [id number] 07:08:00 Test Item Value Reference Range Interpretation Comments PARTIAL THROMBOPLASTIN TIME 36.9 seconds 22.5-36.0 H (BEAKER) (test code = 760) PROTHROMBIN [id number] 07:07:00 Test Item Value Reference Range Interpretation Comments PROTIME (BEAKER) (test code = 15.9 seconds 11.7-14.7 H 759) INR (BEAKER) (test code = 370) 1.3 <=5.9 RECOMMENDED COUMADIN/WARFARIN INR THERAPY RANGESSTANDARD DOSE: 2.0 - 3.0 Includes: PROPHYLAXIS for venous thrombosis, systemic embolization; TREATMENT for venous thrombosis and/or pulmonary embolus.HIGH RISK: Target INR is 2.5-3.5 for patients with mechanical heart valves.LACTIC ACID, ARTERIAL, WHOLE BLOOD 2018-07-10 06:57:00 Test Item Value Reference Range Interpretation Comments LACTATE BLOOD ARTERIAL (2) 0.7 mmol/L 0.5-2.2 (BEAKER) (test code = 2874) Effective 02/25/2016: Units/Reference Range ChangeNew: 0.5-2.2 mmol/L Previous: 5- 20 mg/dLBLOOD GAS, [id number] 06:53:00 Test Item Value Reference Range Interpretation [...] code = 1819) 30.0 % HEMOGLOBIN AND [id number] 06:42:00 Test Item Value Reference Range Interpretation Comments HEMOGLOBIN (BEAKER) (test code = 7.4 GM/DL 13.7-17.5 L 410) HEMATOCRIT (BEAKER) (test code = 22.4 % 40.1-51.0 L 411) POCT-GLUCOSE [id number] 06:33:00 Test Item Value Reference Range Interpretation Comments POC-GLUCOSE METER 159 mg/dL 70-110 H TESTED AT [facility] 6720 (BEAKER) (test code = GENEVIEVE [place] 1538) [address] CALCIUM, [id number] 04:45:00 Test Item Value Reference Range Interpretation Comments CALCIUM IONIZED (BEAKER) (test 1.12 mmol/L 1.12-1.27 code = 698) PH, BLOOD (BEAKER) (test code = 7.42 1810) [id number] 04:42:00 Test Item Value Reference Range Interpretation Comments MAGNESIUM (BEAKER) 2.4 mg/dL 1.6-2.6 Specimen slightly (test code = 627) hemolyzed [id number] 04:42:00 Test Item Value Reference Range Interpretation Comments POTASSIUM (BEAKER) 4.7 meq/L 3.5-5.1 Specimen slightly (test code = 379) hemolyzed HEPATIC FUNCTION [id number] 04:42:00 Test Item Value Reference Range Interpretation [...] (test code = 347) hemolyzed OXYGEN SATURATION, [id number] 04:35:00 Test Item Value Reference Range Interpretation Comments O2 SATURATION (MEASURED) (BEAKER) 95.5 % (test code = 1455) Obtain from CVP portLACTIC ACID, ARTERIAL, WHOLE [id number] 01:05:00 Test Item Value Reference Range Interpretation Comments LACTATE BLOOD ARTERIAL (2) 0.6 mmol/L 0.5-2.2 (BEAKER) (test code = 0714) Effective 02/25/2016: Units/Reference Range ChangeNew: 0.5-2.2 mmol/L Previous: 5- 20 mg/dLBLOOD GAS, [id number] 00:41:00 Test Item Value Reference Range Interpretation [...] (test code = 1819) 50.0 % CALCIUM, [id number] 00:41:00 Test Item Value Reference Range Interpretation Comments CALCIUM IONIZED (BEAKER) (test 1.12 mmol/L 1.12-1.27 code = 698) PH, BLOOD (BEAKER) (test code = 7.42 1810) [id number] 00:25:00 Test Item Value Reference Range Interpretation Comments POTASSIUM (BEAKER) (test code = 4.7 meq/L 3.5-5.1 379) [id number] 00:20:00 Test Item Value Reference Range Interpretation Comments PARTIAL THROMBOPLASTIN TIME 36.5 seconds 22.5-36.0 H (BEAKER) (test code = 760) PROTHROMBIN [id number] 00:19:00 Test Item Value Reference Range Interpretation Comments PROTIME (BEAKER) (test code = 16.4 seconds 11.7-14.7 H 759) INR (BEAKER) (test code = 370) 1.3 <=5.9 RECOMMENDED COUMADIN/WARFARIN INR THERAPY RANGESSTANDARD DOSE: 2.0 - 3.0 Includes: PROPHYLAXIS for venous thrombosis, systemic embolization; TREATMENT for venous thrombosis and/or pulmonary embolus.HIGH RISK: Target INR is 2.5-3.5 for patients with mechanical heart valves.POCT-GLUCOSE [id number] 00:12:00 Test Item Value Reference Range Interpretation Comments POC-GLUCOSE METER 186 mg/dL 70-110 H TESTED AT [facility] 6720 (BEAKER) (test code = GEN[place]E [place] 1538) [address] HEMOGLOBIN AND [id number] 00:08:00 Test Item Value Reference Range Interpretation Comments HEMOGLOBIN (BEAKER) (test code = 7.9 GM/DL 13.7-17.5 L 410) HEMATOCRIT (BEAKER) (test code = 23.1 % 40.1-51.0 L 411) [id number] 19:56:00 Test Item Value Reference Range Interpretation Comments POTASSIUM (BEAKER) (test code = 4.9 meq/L 3.5-5.1 379) [id number] 19:56:00 Test Item Value Reference Range Interpretation Comments MAGNESIUM (BEAKER) (test code = 2.2 mg/dL 1.6-2.6 627) [id number] 19:56:00 Test Item Value Reference Range Interpretation Comments PHOSPHORUS (BEAKER) (test code = 3.8 mg/dL 2.3-4.7 604) [id number] 19:56:00 Test Item Value Reference Range Interpretation Comments SODIUM (BEAKER) (test code = 381) 137 meq/L 136-145 BASIC METABOLIC [id number] 19:56:00 Test Item Value Reference Range Interpretation [...] PATIEN TS. CBC W/PLT COUNT & AUTO [id number] 19:56:00 Test Item Value Reference Range Interpretation [...] PERCENT (BEAKER) (test code = 2801) CALCIUM, [id number] 19:41:00 Test Item Value Reference Range Interpretation Comments CALCIUM IONIZED (BEAKER) (test 1.13 mmol/L 1.12-1.27 code = 698) PH, BLOOD (BEAKER) (test code = 7.45 1810) LACTIC ACID, ARTERIAL, WHOLE [id number] 18:09:00 Test Item Value Reference Range Interpretation Comments LACTATE BLOOD ARTERIAL (2) 0.6 mmol/L 0.5-2.2 (BEAKER) (test code = 2874) Effective 02/25/2016: Units/Reference Range ChangeNew: 0.5-2.2 mmol/L Previous: 5- 20 mg/[id number] 18:09:00 Test Item Value Reference Range Interpretation Comments TRIGLYCERIDES (BEAKER) (test code = 259 mg/dL 540) TRIGLYCERIDE REFERENCE RANGELow Risk <150Borderline Risk 150-199High Risk 200-499Very High Risk >=[id number] 18:05:00 Test Item Value Reference Range Interpretation Comments PARTIAL THROMBOPLASTIN TIME 35.6 seconds 22.5-36.0 (BEAKER) (test code = 760) PROTHROMBIN [id number] 18:04:00 Test Item Value Reference Range Interpretation Comments PROTIME (BEAKER) (test code = 16.2 seconds 11.7-14.7 H 759) INR (BEAKER) (test code = 370) 1.3 <=5.9 RECOMMENDED COUMADIN/WARFARIN INR THERAPY RANGESSTANDARD DOSE: 2.0 - 3.0 Includes: PROPHYLAXIS for venous thrombosis, systemic embolization; TREATMENT for venous thrombosis and/or pulmonary embolus.HIGH RISK: Target INR is 2.5-3.5 for patients with mechanical heart valves.HEMOGLOBIN AND [id number] 17:52:00 Test Item Value Reference Range Interpretation Comments HEMOGLOBIN (BEAKER) (test code = 7.9 GM/DL 13.7-17.5 L 410) HEMATOCRIT (BEAKER) (test code = 22.4 % 40.1-51.0 L 411) BLOOD GAS, [id number] 17:48:00 Test Item Value Reference Range Interpretation [...] (test code = 1819) 50.0 % POCT-GLUCOSE [id number] 17:45:00 Test Item Value Reference Range Interpretation Comments POC-GLUCOSE METER 184 mg/dL 70-110 H TESTED AT [facility] 6720 (BEAKER) (test code = [place] 1538) [address] [id number] 16:05:00 Test Item Value Reference Range Interpretation Comments POTASSIUM (BEAKER) (test code = 4.9 meq/L 3.5-5.1 379) CALCIUM, [id number] 15:53:00 Test Item Value Reference Range Interpretation Comments CALCIUM IONIZED (BEAKER) (test 1.18 mmol/L 1.12-1.27 code = 698) PH, BLOOD (BEAKER) (test code = 7.42 1810) [id number] 12:36:00 Test Item Value Reference Range Interpretation Comments PARTIAL THROMBOPLASTIN TIME 39.8 seconds 22.5-36.0 H (BEAKER) (test code = 760) PROTHROMBIN TIME/[id number] 12:35:00 Test Item Value Reference Range Interpretation Comments PROTIME (BEAKER) (test code = 16.7 seconds 11.7-14.7 H 759) INR (BEAKER) (test code = 370) 1.4 <=5.9 RECOMMENDED COUMADIN/WARFARIN INR THERAPY RANGESSTANDARD DOSE: 2.0 - 3.0 Includes: PROPHYLAXIS for venous thrombosis, systemic embolization; TREATMENT for venous thrombosis and/or pulmonary embolus.HIGH RISK: Target INR is 2.5-3.5 for patients with mechanical heart valves.LACTIC ACID, ARTERIAL, WHOLE BLOOD 2018-07-09 12:35:00 Test Item Value Reference Range Interpretation Comments LACTATE BLOOD ARTERIAL (2) 1.1 mmol/L 0.5-2.2 (BEAKER) (test code = 2874) Effective 02/25/2016: Units/Reference Range ChangeNew: 0.5-2.2 mmol/L Previous: 5- 20 mg/[id number] 12:34:00 Test Item Value Reference Range Interpretation Comments POTASSIUM (BEAKER) (test code = 4.6 meq/L 3.5-5.1 379) BLOOD GAS, [id number] 12:17:00 Test Item Value Reference Range Interpretation [...] code = 1819) 50.0 % HEMOGLOBIN AND [id number] 12:17:00 Test Item Value Reference Range Interpretation Comments HEMOGLOBIN (BEAKER) (test code = 9.6 GM/DL 13.7-17.5 L 410) HEMATOCRIT (BEAKER) (test code = 27.3 % 40.1-51.0 L 411) CALCIUM, [id number] 12:17:00 Test Item Value Reference Range Interpretation Comments CALCIUM IONIZED (BEAKER) (test 1.13 mmol/L 1.12-1.27 code = 698) PH, BLOOD (BEAKER) (test code = 7.37 1810) OXYGEN SATURATION, [id number] 12:16:00 Test Item Value Reference Range Interpretation Comments O2 SATURATION (MEASURED) ([facility]) 81.6 % (test code = 1455) Obtain from CVP portRAD, CHEST, 1 VIEW, NON [id number] 12:16:00Reason for exam:->assess for pulmonary edemaShould this be performed at the bedside?->YesFINAL REPORT Portable chest. CLINICAL HISTORY: assess for pulmonary edema. COMPARISON STUDY: Chest x-ray from yesterday. FINDINGS: The cardiac silhouette is enlarged. The pulmonaryparenchyma demonstrates mild interstitial markings and atelectatic changes, slightly more pronouncedthan on previous. Sternotomy wires are seen. The support lines and tubes are unchanged. No pneumothorax is seen. Degenerative changes are noted. IMPRESSION: Slight worsening of pulmonary opacities, possibly related to mild worsening of CHF. Signed: [facility] Verified Date/Time: 12:16:49 Reading Location: [facility] C013Y CT Body Reading Room POCT-GLUCOSE METER 2018-07-09 12:06:00 Test Item Value Reference Range Interpretation Comments POC-GLUCOSE METER 209 mg/dL 70-110 H TESTED AT [facility] 6720 ([facility]) (test code = GENEVIEVE Bruce [facility] 1538) [address] HEMOGLOBIN AND [id number] 10:33:00 Test Item Value Reference Range Interpretation Comments HEMOGLOBIN (BEAKER) (test code = 10.4 GM/DL 13.7-17.5 L 410) HEMATOCRIT (BEAKER) (test code = 29.6 % 40.1-51.0 L 411) THROMBOELASTOGRAPH (TEG)2018-07-09 10:31:00 Test Item Value Reference Range Interpretation Comments TEG ACTIVATED CLOTTING TIME 4.7 minutes 4.0-7.0 (AKER) (test code = 1407) TEG FIBRINOGEN ACTIVITY ([facility]) 69.6 degrees 61.0-73.0 (test code = 1408) TEG PLT. AGGREGATION (AKER) 55.6 MM 55.0-65.0 (test code = 1409) [...] % 0.0-5.0 code = 1414) BLOOD GAS, [id number] 09:22:00 Test Item Value Reference Range Interpretation [...] FIO2 (BEAKER) (test code = 1819) 60 [id number] 08:58:00 Test Item Value Reference Range Interpretation Comments POTASSIUM (BEAKER) (test code = 4.7 meq/L 3.5-5.1 379) [id number] 08:58:00 Test Item Value Reference Range Interpretation Comments MAGNESIUM (BEAKER) (test code = 2.2 mg/dL 1.6-2.6 627) [id number] 08:58:00 Test Item Value Reference Range Interpretation Comments PHOSPHORUS (BEAKER) (test code = 3.4 mg/dL 2.3-4.7 604) [id number] 08:58:00 Test Item Value Reference Range Interpretation Comments SODIUM (BEAKER) (test code = 381) 136 meq/L 136-145 LACTIC ACID, ARTERIAL, WHOLE [id number] 08:55:00 Test Item Value Reference Range Interpretation Comments LACTATE BLOOD ARTERIAL (2) 1.9 mmol/L 0.5-2.2 (BEAKER) (test code = 2874) Effective 02/25/2016: Units/Reference Range ChangeNew: 0.5-2.2 mmol/L Previous: 5- 20 mg/dLCBC W/PLT COUNT & AUTO [id number] 08:46:00 Test Item Value Reference Range Interpretation [...] = 31.0 % 40.1-51.0 L 411) CALCIUM, [id number] 08:30:00 Test Item Value Reference Range Interpretation Comments CALCIUM IONIZED (BEAKER) (test 1.17 mmol/L 1.12-1.27 code = 698) PH, BLOOD (BEAKER) (test code = 7.50 1810) PH, [id number] 08:30:00 Test Item Value Reference Range Interpretation Comments PH ARTERIAL (BEAKER) (test code = 383) 7.50 7.35-7.45 H POCT-GLUCOSE [id number] 08:26:00 Test Item Value Reference Range Interpretation Comments POC-GLUCOSE METER 180 mg/dL 70-110 H TESTED AT [facility] 6720 (ASIM) (test code = [place] Hilda[place]) [address] ANG, EMBOLIZATION, EXTENSIVE - [id number] 07:11:00Reason for exam:- >upper GI bleedFINAL REPORT [...] malformation. The patient is status post embolization ofone of the duodenal branches yesterday which demonstrated cessation of flow through this region. Using microcatheter and wire, another branch supplying the proximal duodenum was embolized using microcoils. Postembolization angiogram demonstrated cessation of flow to the region of the proximal duodenum. Limited right common femoral arteriogram demonstrated no contraindication for closure device. The ar teriotomy was closed using Angio-Seal. Hemostasis was achieved. The patient tolerated the procedure well without any adverse reactions. He left the department in stable condition. Complication: None immediate Impression: 1. No evidence of active hemorrhage in the region of the external bile duct. The p atient is status post coil embolization and biliary stent insertion prior to the procedure. Another proximal duodenal branch was empirically embolized using microcoils. Signed: Sosa Euceda MDReportVerified Date/Time: 07/09/2018 07:11:14 Reading Location: [facility] P048 Angio Body Reading Room CALCIUM, [id number] 07:06:00 Test Item Value Reference Range Interpretation Comments CALCIUM IONIZED (BEAKER) (test 1.10 mmol/L 1.12-1.27 L code = 698) PH, BLOOD (BEAKER) (test code = 7.42 1810) MRSA [id number] 06:59:00 Test Item Value Reference Range Interpretation Comments CULTURE (BEAKER) (test code No MRSA isolated = 1095) [id number] 06:24:00 Test Item Value Reference Range Interpretation [...] exclusion of thrombosis is within 95-100% range. [id number] 06:20:00 Test Item Value Reference Range Interpretation Comments FIBRINOGEN LEVEL (BEAKER) (test 128 mg/dl 225-434 L code = 658) HEPATIC FUNCTION [id number] 06:16:00 Test Item Value Reference Range Interpretation [...] (test code = 28 U/L 6-55 347) [id number] 06:15:00 Test Item Value Reference Range Interpretation Comments PROTIME (BEAKER) (test code = 20.6 seconds 11.7-14.7 H 759) INR (BEAKER) (test code = 370) 1.8 <=5.9 PARTIAL THROMBOPLASTIN TIME 39.3 seconds 22.5-36.0 H (BEAKER) (test code = 760) RECOMMENDED COUMADIN/WARFARIN INR THERAPY RANGESSTANDARD DOSE: 2.0 - 3.0 Includes: PROPHYLAXIS for venous thrombosis, systemic embolization; TREATMENT for venous thrombosis and/or pulmonary embolus.HIGH RISK: Target INR is 2.5-3.5 for patients with mechanical heart valves.BASIC METABOLIC [id number] 06:12:00 Test Item Value Reference Range Interpretation [...] S NOT APPLICABLE FOR DIALYSIS PATIEN TS. [id number] 06:12:00 Test Item Value Reference Range Interpretation Comments MAGNESIUM (BEAKER) (test code = 1.7 mg/dL 1.6-2.6 627) [id number] 06:12:00 Test Item Value Reference Range Interpretation Comments POTASSIUM (BEAKER) (test code = 4.8 meq/L 3.5-5.1 379) [id number] 06:12:00 Test Item Value Reference Range Interpretation Comments SODIUM (BEAKER) (test code = 381) 136 meq/L 136-145 PLATELET [id number] 05:53:00 Test Item Value Reference Range Interpretation Comments PLATELET COUNT (BEAKER) (test code 62 K/CU MM 150-450 L = 756) HEMOGLOBIN AND [id number] 05:53:00 Test Item Value Reference Range Interpretation [...] % 0.0-5.0 code = 1414) POCT-BLOOD GASES, [id number] 03:55:00 Test Item Value Reference Range Interpretation Comments TEMP, CELSIUS-POC 36.1 (BEAKER) (test code = 1834) FIO2-POC (BEAKER) 60 TESTED AT [facility] 6720 (test code = 1835) [facility] [place] [address] PH, ARTERIAL-POC 7.337 7.350-7.450 L (BEAKER) (test code = 1836) PCO2, ARTERIAL-POC 42.1 mm Hg 35.0-45.0 (BEAKER) (test code = 1837) PO2, ARTERIAL-POC 95.0 mm Hg 80.0-90.0 H (BEAKER) (test code = 1838) SO2, ARTERIAL-POC 97.0 % 96.0-97.0 (BEAKER) (test code = 1839) HCO3, ARTERIAL-POC 22.8 meq/L 21.0-29.0 ([facility]) (test code = 1840) BASE EXCESS, -3.0 meq/L -2.0-3.0 L ARTERIAL-POC ([facility]) (test code = 1841) [id number] 03:55:00 Test Item Value Reference Range Interpretation Comments POC-SODIUM ([facility]) 139 meq/L 135-148 TESTED [place] [address] (test code = 1542) [facility] [address] [id number] 03:55:00 Test Item Value Reference Range Interpretation Comments POC-POTASSIUM 4.7 meq/L 3.6-5.5 TESTED AT [place] [address] ([facility]) (test code [place] [address]50[address] = 1540) [id number] 03:55:00 Test Item Value Reference Range Interpretation Comments POC-GLUCOSE ([facility]) 175 mg/dL 70-110 H TESTED AT [place] [address] (test code = 1855) [facility] [address] POCT-CALCIUM [id number] 03:55:00 Test Item Value Reference Range Interpretation Comments POC-CALCIUM IONIZED 1.27 mmol/L 1.12-1.27 TESTED [place] [address] ([facility]) (test code = [facility] 1536) [address] [id number] 03:55:00 Test Item Value Reference Range Interpretation Comments POC-HEMATOCRIT 26 % 40-50 L TESTED AT [place] [address] ([facility]) (test code = [facility] [address]) [id number] 03:55:00 Test Item Value Reference Range Interpretation Comments POC-HEMOGLOBIN 8.8 g/dL 13.0-16.8 L TESTED AT [place] [address] ([facility]) (test code = [facility] 1857) [id number] AT [place] [address] [facility] [address] CALCIUM, [id number] 02:37:00 Test Item Value Reference Range Interpretation Comments CALCIUM IONIZED ([facility]) (test 1.94 mmol/L 1.12-1.27 HH code = 698) PH, BLOOD (BEAKER) (test code = 7.26 1810) BLOOD GAS, [id number] 02:30:00 Test Item Value Reference Range Interpretation [...] (test 0.0 % 0.0-5.0 code = 1414) [id number] 01:54:00 Test Item Value Reference Range Interpretation Comments POTASSIUM (BEAKER) (test code = 3.9 meq/L 3.5-5.1 379) [id number] 01:54:00 Test Item Value Reference Range Interpretation Comments SODIUM (BEAKER) (test code = 381) 138 meq/L 136-145 PLATELET [id number] 01:46:00 Test Item Value Reference Range Interpretation Comments PLATELET COUNT (BEAKER) (test code 69 K/CU MM 150-450 L = 756) HEMOGLOBIN AND [id number] 01:46:00 Test Item Value Reference Range Interpretation Comments HEMOGLOBIN (BEAKER) (test code = 9.0 GM/DL 13.7-17.5 L 410) HEMATOCRIT (BEAKER) (test code = 27.4 % 40.1-51.0 L 411) POCT-BLOOD GASES, [id number] 01:27:00 Test Item Value Reference Range Interpretation Comments TEMP, CELSIUS-POC 36.4 (BEAKER) (test code = 1834) FIO2-POC (BEAKER) TESTED AT [place] [address] (test code = 1835) [facility] [place] [address] PH, ARTERIAL-POC 7.194 7.350-7.450 LL (BEAKER) (test [...] L ARTERIAL-POC (BEAKER) (test code = 1841) [id number] 01:27:00 Test Item Value Reference Range Interpretation Comments POC-SODIUM (BEAKER) 141 meq/L 135-148 TESTED A T [place] [address] (test code = 1542) [facility] [place] [address] [id number] 01:27:00 Test Item Value Reference Range Interpretation Comments POC-POTASSIUM 4.0 meq/L 3.6-5.5 TESTED AT [facility] 6720 (BEAKER) (test code [facility] [place] [address] = 1540) [id number] 01:27:00 Test Item Value Reference Range Interpretation Comments POC-GLUCOSE (BEAKER) 219 mg/dL 70-110 H TESTED AT [place] [address] (test code = 1855) [facility] [place] [address] POCT-CALCIUM [id number] 01:27:00 Test Item Value Reference Range Interpretation Comments POC-CALCIUM IONIZED 0.99 mmol/L 1.12-1.27 L TESTED A T [place] [address] ([facility]) (test code = [facility] 1536) [address] [id number] 01:27:00 Test Item Value Reference Range Interpretation Comments POC-HEMATOCRIT 20 % 40-50 L TESTED AT [place] [address] ([facility]) (test code = [facility] [address] 1857) [id number] 01:27:00 Test Item Value Reference Range Interpretation Comments POC-HEMOGLOBIN 6.8 g/dL 13.0-16.8 L TESTED AT [place] [address] ([facility]) (test code = [facility] 1856) 25044GTFCGX AT [place] [address] [place] [address] HEMOGLOBIN AND [id number] 01:04:00 Test Item Value Reference Range Interpretation Comments HEMOGLOBIN (BEAKER) (test code = 6.9 GM/DL 13.7-17.5 L 410) HEMATOCRIT (BEAKER) (test code = 21.0 % 40.1-51.0 L 411) VANCOMYCIN LEVEL, [id number] 00:57:00 Test Item Value Reference Range Interpretation Comments VANCOMYCIN TROUGH (BEAKER) (test 19.9 ug/mL 10.0-20.0 code = 522) CALCIUM, [id number] 00:41:00 Test Item Value Reference Range Interpretation Comments CALCIUM IONIZED (BEAKER) (test 1.01 mmol/L 1.12-1.27 L code = 698) PH, BLOOD (BEAKER) (test code = 7.35 1810) [id number] 00:41:00 Test Item Value Reference Range Interpretation Comments POTASSIUM (BEAKER) (test code = 4.5 meq/L 3.5-5.1 379) HEMOGLOBIN AND [id number] 21:53:00 Test Item Value Reference Range Interpretation Comments HEMOGLOBIN (BEAKER) (test code = 6.1 GM/DL 13.7-17.5 L 410) HEMATOCRIT (BEAKER) (test code = 18.0 % 40.1-51.0 L 411) [id number] 19:42:00 Test Item Value Reference Range Interpretation Comments POTASSIUM (BEAKER) (test code = 4.6 meq/L 3.5-5.1 379) [id number] 19:42:00 Test Item Value Reference Range Interpretation Comments MAGNESIUM (BEAKER) (test code = 1.8 mg/dL 1.6-2.6 627) [id number] 19:42:00 Test Item Value Reference Range Interpretation Comments PHOSPHORUS (BEAKER) (test code = 3.5 mg/dL 2.3-4.7 604) [id number] 19:42:00 Test Item Value Reference Range Interpretation Comments SODIUM (BEAKER) (test code = 381) 137 meq/L 136-145 PROTHROMBIN [id number] 19:40:00 Test Item Value Reference Range Interpretation Comments PROTIME (BEAKER) (test code = 18.3 seconds 11.7-14.7 H 759) INR (BEAKER) (test code = 370) 1.5 <=5.9 RECOMMENDED COUMADIN/WARFARIN INR THERAPY RANGESSTANDARD DOSE: 2.0 - 3.0 Includes: PROPHYLAXIS for venous thrombosis, systemic embolization; TREATMENT for venous thrombosis and/or pulmonary embolus.HIGH RISK: Target INR is 2.5-3.5 for patients with mechanical heart valves.PH, [id number] 19:30:00 Test Item Value Reference Range Interpretation Comments PH ARTERIAL (BEAKER) (test code = 383) 7.44 7.35-7.45 CALCIUM, [id number] 19:30:00 Test Item Value Reference Range Interpretation Comments CALCIUM IONIZED (BEAKER) (test 1.13 mmol/L 1.12-1.27 code = 698) PH, BLOOD (BEAKER) (test code = 7.44 1810) HEMOGLOBIN AND [id number] 19:28:00 Test Item Value Reference Range Interpretation Comments HEMOGLOBIN (BEAKER) (test code = 7.5 GM/DL 13.7-17.5 L 410) HEMATOCRIT (BEAKER) (test code = 21.8 % 40.1-51.0 L 411) POCT-GLUCOSE [id number] 17:21:00 Test Item Value Reference Range Interpretation Comments POC-GLUCOSE METER 189 mg/dL 70-110 H TESTED AT [facility] 6720 (BEAKER) (test code = [place] 1538) [address] [id number] 16:23:00 Test Item Value Reference Range Interpretation Comments MAGNESIUM (BEAKER) (test code = 1.8 mg/dL 1.6-2.6 627) CALCIUM, [id number] 16:07:00 Test Item Value Reference Range Interpretation Comments CALCIUM IONIZED (BEAKER) (test 1.14 mmol/L 1.12-1.27 code = 698) PH, BLOOD (BEAKER) (test code = 7.43 1810) HEMOGLOBIN AND [id number] 16:05:00 Test Item Value Reference Range Interpretation Comments HEMOGLOBIN (BEAKER) (test code = 8.1 GM/DL 13.7-17.5 L 410) HEMATOCRIT (BEAKER) (test code = 23.4 % 40.1-51.0 L 411) BLOOD GAS, [id number] 12:34:00 Test Item Value Reference Range Interpretation [...] (test code = 1819) 60.0 % PROTHROMBIN [id number] 12:05:00 Test Item Value Reference Range Interpretation Comments PROTIME (BEAKER) (test code = 18.1 seconds 11.7-14.7 H 759) INR (BEAKER) (test code = 370) 1.5 <=5.9 RECOMMENDED COUMADIN/WARFARIN INR THERAPY RANGESSTANDARD DOSE: 2.0 - 3.0 Includes: PROPHYLAXIS for venous thrombosis, systemic embolization; TREATMENT for venous thrombosis and/or pulmonary embolus.HIGH RISK: Target INR is 2.5-3.5 for patients with mechanical heart valves.BLOOD GAS, [id number] 11:30:00 Test Item Value Reference Range Interpretation [...] (test code = 1819) 60.0 % CALCIUM, [id number] 11:29:00 Test Item Value Reference Range Interpretation Comments CALCIUM IONIZED (BEAKER) (test 1.15 mmol/L 1.12-1.27 code = 698) PH, BLOOD (BEAKER) (test code = 7.52 1810) POCT-GLUCOSE [id number] 11:22:00 Test Item Value Reference Range Interpretation Comments POC-GLUCOSE METER 202 mg/dL 70-110 H TESTED AT [facility] 6720 (BEAKER) (test code = [facility] 1538) [address] [id number] 10:07:00 Test Item Value Reference Range Interpretation Comments FIBRINOGEN LEVEL (BEAKER) (test 222 mg/dl 225-434 L code = 658) HEMOGLOBIN AND [id number] 09:58:00 Test Item Value Reference Range Interpretation Comments HEMOGLOBIN (BEAKER) (test code = 8.8 GM/DL 13.7-17.5 L 410) HEMATOCRIT (BEAKER) (test code = 25.4 % 40.1-51.0 L 411) TROPONIN [id number] 09:11:00 Test Item Value Reference Range Interpretation Comments TROPONIN I (BEAKER) (test code = 0.99 ng/mL 0.00-0.03 397) Troponin I (TnI) levels [...] Sharath Serra MDReport Verified Date/Time: 07/08/2018 08:52:14 Reading Location: [address] Reading Room Electronically signed by: SHARATH SERRA M.D. on 06/24 08:52 AMLACTIC ACID, ARTERIAL, WHOLE [id number] 08:43:00 Test Item Value Reference Range Interpretation Comments LACTATE BLOOD ARTERIAL (2) 1.1 mmol/L 0.5-2.2 (BEAKER) (test code = 2874) Effective 02/25/2016: Units/Reference Range ChangeNew: 0.5-2.2 mmol/L Previous: 5- 20 mg/[id number] 08:12:00 Test Item Value Reference Range Interpretation Comments POTASSIUM (BEAKER) (test code = 3.9 meq/L 3.5-5.1 379) [id number] 08:12:00 Test Item Value Reference Range Interpretation Comments MAGNESIUM (BEAKER) (test code = 1.8 mg/dL 1.6-2.6 627) [id number] 08:12:00 Test Item Value Reference Range Interpretation Comments PHOSPHORUS (BEAKER) (test code = 2.2 mg/dL 2.3-4.7 L 604) [id number] 08:12:00 Test Item Value Reference Range Interpretation Comments SODIUM (BEAKER) (test code = 381) 134 meq/L 136-145 L HEMOGLOBIN AND [id number] 07:56:00 Test Item Value Reference Range Interpretation Comments HEMOGLOBIN (BEAKER) (test code = 8.9 GM/DL 13.7-17.5 L 410) HEMATOCRIT (BEAKER) (test code = 25.7 % 40.1-51.0 L 411) PH, [id number] 07:55:00 Test Item Value Reference Range Interpretation Comments PH ARTERIAL (BEAKER) (test code = 383) 7.63 7.35-7.45 HH CALCIUM, [id number] 07:53:00 Test Item Value Reference Range Interpretation Comments CALCIUM IONIZED (BEAKER) (test 1.06 mmol/L 1.12-1.27 L code = 698) PH, BLOOD (BEAKER) (test code = 7.63 1810) POCT-GLUCOSE [id number] 07:42:00 Test Item Value Reference Range Interpretation Comments POC-GLUCOSE METER 190 mg/dL 70-110 H TESTED AT [facility] 6720 (BEAKER) (test code = [place] 7327) [address] FIBRIN SOLUBLE [id number] 07:40:00 Test Item Value Reference Range Interpretation Comments FIBRIN SOLUBLE MONOMER (BEAKER) Negative (test code = 1416) HEMOGLOBIN AND [id number] 06:23:00 Test Item Value Reference Range Interpretation [...] 0.0 % 0.0-5.0 code = 1414) CALCIUM, [id number] 05:19:00 Test Item Value Reference Range Interpretation Comments CALCIUM IONIZED (BEAKER) (test 1.28 mmol/L 1.12-1.27 H code = 698) PH, BLOOD (BEAKER) (test code = 7.40 1810) [id number] 04:51:00 Test Item Value Reference Range Interpretation Comments MAGNESIUM (BEAKER) (test code = 2.0 mg/dL 1.6-2.6 627) BASIC METABOLIC [id number] 04:51:00 Test Item Value Reference Range Interpretation [...] DIALYSIS PATIEN TS. Specimen slightly ictericHEPATIC FUNCTION [id number] 04:51:00 Test Item Value Reference Range Interpretation [...] = 34 U/L 6-55 347) Specimen slightly [id number] 04:45:00 Test Item Value Reference Range Interpretation [...] 22.5-36.0 (BEAKER) (test code = 760) PROTHROMBIN [id number] 04:41:00 Test Item Value Reference Range Interpretation Comments PROTIME (BEAKER) (test code = 18.7 seconds 11.7-14.7 H 759) INR (BEAKER) (test code = 370) 1.6 <=5.9 RECOMMENDED COUMADIN/WARFARIN INR THERAPY RANGESSTANDARD DOSE: 2.0 - 3.0 Includes: PROPHYLAXIS for venous thrombosis, systemic embolization; TREATMENT for venous thrombosis and/or pulmonary embolus.HIGH RISK: Target INR is 2.5-3.5 for patients with mechanical heart valves.LACTIC ACID, VENOUS, WHOLE BLOOD 2018-07-08 04:34:00 Test Item Value Reference Range Interpretation Comments LACTATE BLOOD VENOUS (2) (BEAKER) 2.6 mmol/L 0.5-2.2 H (test code = 2872) Effective 02/25/2016: Units/Reference Range ChangeNew: 0.5-2.2 mmol/L Previous: 5- 20 mg/dLBLOOD GAS, [id number] 04:19:00 Test Item Value Reference Range Interpretation [...] code = 1819) 100.0 % HEMOGLOBIN AND [id number] 02:16:00 Test Item Value Reference Range Interpretation Comments HEMOGLOBIN (BEAKER) (test code = 7.9 GM/DL 13.7-17.5 L 410) HEMATOCRIT (BEAKER) (test code = 22.4 % 40.1-51.0 L 411) [id number] 00:24:00 Test Item Value Reference Range Interpretation Comments POTASSIUM (BEAKER) (test code = 4.1 meq/L 3.5-5.1 379) CALCIUM, [id number] 00:22:00 Test Item Value Reference Range Interpretation Comments CALCIUM IONIZED (BEAKER) (test 1.09 mmol/L 1.12-1.27 L code = 698) PH, BLOOD (BEAKER) (test code = 7.44 1810) HEMOGLOBIN AND [id number] 00:16:00 Test Item Value Reference Range Interpretation Comments HEMOGLOBIN (BEAKER) (test code = 8.1 GM/DL 13.7-17.5 L 410) HEMATOCRIT (BEAKER) (test code = 23.8 % 40.1-51.0 L 411) HEMOGLOBIN AND [id number] 22:26:00 Test Item Value Reference Range Interpretation Comments HEMOGLOBIN (BEAKER) (test code = 8.1 GM/DL 13.7-17.5 L 410) HEMATOCRIT (BEAKER) (test code = 23.7 % 40.1-51.0 L 411) POCT-GLUCOSE [id number] 22:10:00 Test Item Value Reference Range Interpretation Comments POC-GLUCOSE METER 257 mg/dL 70-110 H TESTED AT [facility] 6720 (BEAKER) (test code = [place] 1538) [address] THROMBOELASTOGRAPH (TEG)2018-07-07 21:16:00 Test Item Value Reference [...] (test 0.0 % 0.0-5.0 code = 1414) [id number] 21:02:00 Test Item Value Reference Range Interpretation Comments POTASSIUM (BEAKER) (test code = 4.1 meq/L 3.5-5.1 379) [id number] 21:02:00 Test Item Value Reference Range Interpretation Comments MAGNESIUM (BEAKER) (test code = 1.7 mg/dL 1.6-2.6 627) [id number] 21:02:00 Test Item Value Reference Range Interpretation Comments PHOSPHORUS (BEAKER) (test code = 4.3 mg/dL 2.3-4.7 604) [id number] 21:02:00 Test Item Value Reference Range Interpretation Comments SODIUM (BEAKER) (test code = 381) 138 meq/L 136-145 CALCIUM, [id number] 20:36:00 Test Item Value Reference Range Interpretation Comments CALCIUM IONIZED (BEAKER) (test 0.98 mmol/L 1.12-1.27 L code = 698) PH, BLOOD (BEAKER) (test code = 7.34 1810) PH, [id number] 20:36:00 Test Item Value Reference Range Interpretation Comments PH ARTERIAL (BEAKER) (test code = 383) 7.34 7.35-7.45 L HEMOGLOBIN AND [id number] 20:30:00 Test Item Value Reference Range Interpretation Comments HEMOGLOBIN (BEAKER) (test code = 7.8 GM/DL 13.7-17.5 L 410) HEMATOCRIT (BEAKER) (test code = 22.8 % 40.1-51.0 L 411) RAD, CHEST, 1 VIEW, NON [id number] 19:08:00Reason for exam:->s/p dialysis catheterShould this be performed at the bedside?->YesFINAL REPORT Chest, 1 view. History: Dialysis catheter placement. Comparison: at 0953. Impression: There has been interval placement of a right IJ coursing nontunneled dialysis catheter with distal tip superimposing the SVC. [...] osseous abnormality is identified. Signed: Brendan Azar MDRcassandra Verified Date/Time: 07/07/2018 19:08:34 Reading Location: [address] Consult Reading Room ANG, VISCERAL [id number] 18:27:00from ercpFINAL REPORT Exam: Visceral arteriogram Clinical [...] The arteriotomy was closed teaching Angio-Seal. Hemostasis wasachieved. The patient tolerated the procedure well without any adverse reactions. He left the department in stable condition. Complication: None immediate Impression: 1. Visceral arteriogram as described. Signed: Sosa Euceda MDReport Verified Date/Time: 07/07/2018 18:27:51 Reading Location: [facility] Radiology Reading Room HEMOGLOBIN AND HEMATOCRIT 2018-07-07 18:25:00 Test Item Value Reference Range Interpretation Comments HEMOGLOBIN (BEAKER) (test code = 7.6 GM/DL 13.7-17.5 L 410) HEMATOCRIT (BEAKER) (test code = 22.8 % 40.1-51.0 L 411) TROPONIN [id number] 18:16:00 Test Item Value Reference Range Interpretation [...] acute neurological disease, and persistent tachyarrhythmia.BASIC METABOLIC [id number] 17:33:00 Test Item Value Reference Range Interpretation [...] S NOT APPLICABLE FOR DIALYSIS PATIEN TS. [id number] 17:32:00 Test Item Value Reference Range Interpretation Comments MAGNESIUM (BEAKER) (test code = 1.7 mg/dL 1.6-2.6 627) POCT-GLUCOSE [id number] 17:29:00 Test Item Value Reference Range Interpretation Comments POC-GLUCOSE METER 283 mg/dL 70-110 H TESTED AT [facility] 6720 (BEAKER) (test code = [place] 1538) [address] SODIUM, RANDOM [id number] 17:20:00 Test Item Value Reference Range Interpretation Comments SODIUM URINE (BEAKER) (test code = < meq/L 243) Reference Range: No NormalsFIBRIN SOLUBLE [id number] 17:20:00 Test Item Value Reference Range Interpretation Comments FIBRIN SOLUBLE MONOMER (BEAKER) Negative (test code = 1416) ANG, ARTERIAL EMBOLIZATION FOR [id number] 17:15:00Reason for exam:->s/p ERCP with bleedFINAL REPORT History: Upper GI bleed, active bleeding by recent endoscopy. PROCEDURE: Following informed written consent, the patient's right femoral area was prepped and draped inthe usual sterile manner. 2% lidocaine was given locally for anesthesia. No conscious sedation was ad ministered. Access was gained to the right common femoral artery and a 5 Sudanese sheath was placed. A5 Sudanese Alcantar B catheter was placed over a wire into the abdominal aorta and used to carefully select and perform celiac and superior mesenteric arteriograms. With the catheter parked in origin of thesuperior mesenteric artery, coaxial technique was utilized to advance a 3 Sudanese microcatheter over a wire and into a proximal branch of the places replaced right hepatic artery which appears to be a gastroduodenal vessel. Subselective arteriography was performed. The 3 Sudanese microcatheter was further advanced into a distal [...] removed and hemostasis achieved using a 5 Sudanese mynx closure device. Overall, the patient tolerated [...] MDReport Verified Date/Time: 07/07/2018 17:15:21 Reading Location: [place] [address] Angio Body Reading Room CREATININE, RANDOM [id number] 17:14:00 Test Item Value Reference Range Interpretation Comments CREATININE URINE (BEAKER) (test 68.4 mg/dL code = 375) Reference Range: No NormalsPROTEIN, RANDOM [id number] 17:14:00 Test Item Value Reference Range Interpretation Comments PROTEIN, URINE (BEAKER) (test code = 33 mg/dL 0-14 H 1569) [id number] 16:58:00 Test Item Value Reference Range Interpretation Comments POTASSIUM (BEAKER) (test code = 4.2 meq/L 3.5-5.1 379) URINALYSIS WITH MICROSCOPIC IF [id number] 16:43:00 Test Item Value Reference Range Interpretation [...] 463) SOURCE(BEAKER) (test code = 2795) URINALYSIS [id number] 16:43:00 Test Item Value Reference Range Interpretation Comments RBC UA (BEAKER) (test code = 519) 1 /HPF WBC UA (BEAKER) (test code = 520) 5 /HPF MUCUS (BEAKER) (test code = 1574) Rare SQUAMOUS EPITHELIAL (BEAKER) (test 1 /HPF code = 516) HEMOGLOBIN AND [id number] 16:37:00 Test Item Value Reference Range Interpretation Comments HEMOGLOBIN (BEAKER) (test code = 8.1 GM/DL 13.7-17.5 L 410) HEMATOCRIT (BEAKER) (test code = 24.6 % 40.1-51.0 L 411) CALCIUM, [id number] 16:23:00 Test Item Value Reference Range Interpretation Comments CALCIUM IONIZED (BEAKER) (test 0.91 mmol/L 1.12-1.27 L code = 698) PH, BLOOD (BEAKER) (test code = 7.30 1810) BASIC METABOLIC [id number] 15:27:00 Test Item Value Reference Range Interpretation [...] S NOT APPLICABLE FOR DIALYSIS PATIEN TS. [id number] 15:26:00 Test Item Value Reference Range Interpretation Comments PHOSPHORUS (BEAKER) (test code = 4.5 mg/dL 2.3-4.7 604) [id number] 15:26:00 Test Item Value Reference Range Interpretation Comments MAGNESIUM (BEAKER) (test code = 1.6 mg/dL 1.6-2.6 627) BASIC METABOLIC [id number] 15:26:00 Test Item Value Reference Range Interpretation [...] DIALYSIS PATIEN TS. LACTIC ACID, ARTERIAL, WHOLE [id number] 15:20:00 Test Item Value Reference Range Interpretation Comments LACTATE BLOOD ARTERIAL (2) 9.1 mmol/L 0.5-2.2 H (BEAKER) (test code = 2874) Effective 02/25/2016: Units/Reference Range ChangeNew: 0.5-2.2 mmol/L Previous: 5- 20 mg/[id number] 15:14:00 Test Item Value Reference Range Interpretation Comments FIBRINOGEN LEVEL (BEAKER) (test 158 mg/dl 225-434 L code = 658) [id number] 15:10:00 Test Item Value Reference Range Interpretation Comments PROTIME (BEAKER) (test code = 22.1 seconds 11.7-14.7 H 759) INR (BEAKER) (test code = 370) 1.9 <=5.9 PARTIAL THROMBOPLASTIN TIME 36.0 seconds 22.5-36.0 (BEAKER) (test code = 760) RECOMMENDED COUMADIN/WARFARIN INR THERAPY RANGESSTANDARD DOSE: 2.0 - 3.0 Includes: PROPHYLAXIS for venous thrombosis, systemic embolization; TREATMENT for venous thrombosis and/or pulmonary embolus.HIGH RISK: Target INR is 2.5-3.5 for patients with mechanical heart valves.PROTHROMBIN TIME/[id number] 15:09:00 Test Item Value Reference Range Interpretation Comments PROTIME (BEAKER) (test code = 22.1 seconds 11.7-14.7 H 759) INR (BEAKER) (test code = 370) 1.9 <=5.9 RECOMMENDED COUMADIN/WARFARIN INR THERAPY RANGESSTANDARD DOSE: 2.0 - 3.0 Includes: PROPHYLAXIS for venous thrombosis, systemic embolization; TREATMENT for venous thrombosis and/or pulmonary embolus.HIGH RISK: Target INR is 2.5-3.5 for patients with mechanical heart valves.PROTHROMBIN [id number] 15:08:00 Test Item Value Reference Range Interpretation Comments PROTIME (BEAKER) (test code = 22.2 seconds 11.7-14.7 H 759) INR (BEAKER) (test code = 370) 2.0 <=5.9 RECOMMENDED COUMADIN/WARFARIN INR THERAPY RANGESSTANDARD DOSE: 2.0 - 3.0 Includes: PROPHYLAXIS for venous thrombosis, systemic embolization; TREATMENT for venous thrombosis and/or pulmonary embolus.HIGH RISK: Target INR is 2.5-3.5 for patients with mechanical heart valves.CBC W/PLT COUNT & AUTO [id number] 15:07:00 Test Item Value Reference Range Interpretation [...] (BEAKER) (test code = 2801) BLOOD GAS, [id number] 14:58:00 Test Item Value Reference Range Interpretation [...] code = 1819) 40.0 % HEMOGLOBIN AND [id number] 14:56:00 Test Item Value Reference Range Interpretation Comments HEMOGLOBIN (BEAKER) (test code = 8.6 GM/DL 13.7-17.5 L 410) HEMATOCRIT (BEAKER) (test code = 25.7 % 40.1-51.0 L 411) FIBRIN SOLUBLE [id number] 13:26:00 Test Item Value Reference Range Interpretation [...] (test 0.0 % 0.0-5.0 code = 1414) [id number] 12:02:00 Test Item Value Reference Range Interpretation Comments PARTIAL THROMBOPLASTIN TIME 35.0 seconds 22.5-36.0 (BEAKER) (test code = 760) PROTHROMBIN [id number] 12:01:00 Test Item Value Reference Range Interpretation Comments PROTIME (BEAKER) (test code = 20.2 seconds 11.7-14.7 H 759) INR (BEAKER) (test code = 370) 1.7 <=5.9 RECOMMENDED COUMADIN/WARFARIN INR THERAPY RANGESSTANDARD DOSE: 2.0 - 3.0 Includes: PROPHYLAXIS for venous thrombosis, systemic embolization; TREATMENT for venous thrombosis and/or pulmonary embolus.HIGH RISK: Target INR is 2.5-3.5 for patients with mechanical heart valves.VA, [id number] 11:51:00Reason for exam:->bleeding s/p ercpFINAL REPORT ERCP, [...] MDReport Verified Date/Time: 07/07/2018 11:51:44 Reading Location: [address] Radiology Reading Room LACTIC ACID, ARTERIAL, WHOLE [id number] 11:48:00 Test Item Value Reference Range Interpretation Comments LACTATE BLOOD ARTERIAL (2) 7.4 mmol/L 0.5-2.2 H (BEAKER) (test code = 2874) Effective 02/25/2016: Units/Reference Range ChangeNew: 0.5-2.2 mmol/L Previous: 5- 20 mg/[id number] 11:36:00 Test Item Value Reference Range Interpretation [...] of thrombosis is within 95-100% range.BLOOD GAS, [id number] 11:35:00 Test Item Value Reference Range Interpretation [...] code = 1819) 40.0 % HEMOGLOBIN AND [id number] 11:27:00 Test Item Value Reference Range Interpretation Comments HEMOGLOBIN (BEAKER) (test code = 9.2 GM/DL 13.7-17.5 L 410) HEMATOCRIT (BEAKER) (test code = 28.2 % 40.1-51.0 L 411) POCT-GLUCOSE [id number] 11:22:00 Test Item Value Reference Range Interpretation Comments POC-GLUCOSE METER 240 mg/dL 70-110 H TESTED AT [facility] 6720 (BEAKER) (test code = [place] 1538) [address] RAD, CHEST, 1 VIEW, NON [id number] 10:14:00Reason for exam:- >intubationShould this be performed [...] MDReport Verified Date/Time: 07/07/2018 10:14:17 Reading Location: [facility] Radiology Reading Room BASIC METABOLIC [id number] 09:45:00 Test Item Value Reference Range Interpretation [...] S NOT APPLICABLE FOR DIALYSIS PATIEN TS. [id number] 09:38:00 Test Item Value Reference Range Interpretation Comments FIBRINOGEN LEVEL (BEAKER) (test 146 mg/dl 225-434 L code = 658) HEMOGLOBIN AND [id number] 09:19:00 Test Item Value Reference Range Interpretation Comments HEMOGLOBIN (BEAKER) (test code = 7.7 GM/DL 13.7-17.5 L 410) HEMATOCRIT (BEAKER) (test code = 23.4 % 40.1-51.0 L 411) BLOOD GAS, [id number] 09:18:00 Test Item Value Reference Range Interpretation [...] (BEAKER) (test code = 1819) 40.0 % [id number] 08:27:00 Test Item Value Reference Range Interpretation Comments PARTIAL THROMBOPLASTIN TIME 37.9 seconds 22.5-36.0 H (BEAKER) (test code = 760) PROTHROMBIN [id number] 08:26:00 Test Item Value Reference Range Interpretation Comments PROTIME (BEAKER) (test code = 23.5 seconds 11.7-14.7 H 759) INR (BEAKER) (test code = 370) 2.1 <=5.9 RECOMMENDED COUMADIN/WARFARIN INR THERAPY RANGESSTANDARD DOSE: 2.0 - 3.0 Includes: PROPHYLAXIS for venous thrombosis, systemic embolization; TREATMENT for venous thrombosis and/or pulmonary embolus.HIGH RISK: Target INR is 2.5-3.5 for patients with mechanical heart valves.HEMOGLOBIN AND [id number] 08:08:00 Test Item Value Reference Range Interpretation Comments HEMOGLOBIN (BEAKER) (test code = 7.7 GM/DL 13.7-17.5 L 410) HEMATOCRIT (BEAKER) (test code = 23.3 % 40.1-51.0 L 411) BASIC METABOLIC [id number] 06:32:00 Test Item Value Reference Range Interpretation [...] APPLICABLE FOR DIALYSIS PATIEN TS. Specimen slightly [id number] 06:21:00 Test Item Value Reference Range Interpretation Comments MAGNESIUM (BEAKER) (test code = 2.0 mg/dL 1.6-2.6 627) HEPATIC FUNCTION [id number] 06:21:00 Test Item Value Reference Range Interpretation [...] 347) Specimen slightly ictericLACTIC ACID, VENOUS, WHOLE [id number] 06:16:00 Test Item Value Reference Range Interpretation Comments LACTATE BLOOD VENOUS (2) (BEAKER) 2.2 mmol/L 0.5-2.2 (test code = 2872) Effective 02/25/2016: Units/Reference Range ChangeNew: 0.5-2.2 mmol/L Previous: 5- 20 mg/dLSpecimen slightly ictericHEMOGLOBIN AND [id number] 06:06:00 Test Item Value Reference Range Interpretation Comments HEMOGLOBIN (BEAKER) (test code = 10.2 GM/DL 13.7-17.5 L 410) HEMATOCRIT (BEAKER) (test code = 31.7 % 40.1-51.0 L 411) LACTIC ACID, VENOUS, WHOLE [id number] 03:14:00 Test Item Value Reference Range Interpretation Comments LACTATE BLOOD VENOUS (2) (BEAKER) 1.3 mmol/L 0.5-2.2 (test code = 2872) Effective 02/25/2016: Units/Reference Range ChangeNew: 0.5-2.2 mmol/L Previous: 5- 20 mg/dLSpecimen slightly ictericHEMOGLOBIN AND [id number] 03:08:00 Test Item Value Reference Range Interpretation Comments HEMOGLOBIN (BEAKER) (test code = 11.2 GM/DL 13.7-17.5 L 410) HEMATOCRIT (BEAKER) (test code = 34.8 % 40.1-51.0 L 411) HEMOGLOBIN AND [id number] 00:22:00 Test Item Value Reference Range Interpretation Comments HEMOGLOBIN (BEAKER) (test code = 6.8 GM/DL 13.7-17.5 L 410) HEMATOCRIT (BEAKER) (test code = 21.6 % 40.1-51.0 L 411) LACTIC ACID, VENOUS, WHOLE [id number] 23:30:00 Test Item Value Reference Range Interpretation Comments LACTATE BLOOD VENOUS 1.2 mmol/L 0.5-2.2 Specime n slightly (2) (BEAKER) (test hemolyzed code = 2872) Effective 02/25/2016: Units/Reference Range ChangeNew: 0.5-2.2 mmol/L Previous: 5- 20 mg/dLSpecimen moderately [id number] 23:08:00 Test Item Value Reference Range Interpretation Comments PROCALCITONIN (BEAKER) (test code 0.48 ng/mL <0.05 H = 3036) SEPSIS RISK (ng/mL)Low: 0.05-0.50Intermediate: 0.51-2.00High: >=2.01RAD, CHEST, 1 VIEW, NON [id number] 23:07:00Reason for exam:->abd painShould this be performed [...] MDReport Verified Date/Time: 07/06/2018 23:07:59 Reading Location: [address] Consult Reading Room [id number] 22:48:00 Test Item Value Reference Range Interpretation Comments LIPASE (BEAKER) (test code = 749) > U/L 8-78 H Specimen moderately [id number] 22:42:00 Test Item Value Reference Range Interpretation Comments MAGNESIUM (BEAKER) (test code = 1.9 mg/dL 1.6-2.6 627) COMPREHENSIVE METABOLIC [id number] 22:42:00 Test Item Value Reference Range Interpretation [...] Specimen moderately ictericCBC W/PLT COUNT & AUTO [id number] 22:23:00 Test Item Value Reference Range Interpretation [...] 0-1 PERCENT (BEAKER) (test code = 2801) [id number] 22:20:00 Test Item Value Reference Range Interpretation Comments PARTIAL THROMBOPLASTIN TIME 31.2 seconds 22.5-36.0 (BEAKER) (test code = 760) PROTHROMBIN [id number] 22:19:00 Test Item Value Reference Range Interpretation Comments PROTIME (BEAKER) (test code = 17.0 seconds 11.7-14.7 H 759) INR (BEAKER) (test code = 370) 1.4 <=5.9 RECOMMENDED COUMADIN/WARFARIN INR THERAPY RANGESSTANDARD DOSE: 2.0 - 3.0 Includes: PROPHYLAXIS for venous thrombosis, systemic embolization; TREATMENT for venous thrombosis and/or pulmonary embolus.HIGH RISK: Target INR is 2.5-3.5 for patients with mechanical heart valves.POCT-LACTIC ACID, [id number] 22:15:00 Test Item Value Reference Range Interpretation Comments POC-LACTIC ACID, 1.3 mmol/L 0.9-1.7 TESTED AT [facility] 6720 VENOUS (BEAKER) (test GENEVIEVE [place] code = 2805) [address] POCT-BLOOD GASES, [id number] 22:15:00 Test Item Value Reference Range Interpretation Comments TEMP, CELSIUS-POC 37.0 (BEAKER) (test code = 1834) FIO2-POC (BEAKER) TESTED AT [place] [address] (test code = 1835) [facility] [address] PH, VENOUS-POC 7.388 7.320-7.420 (BEAKER) (test code [...] H VENOUS-POC (BEAKER) (test code = 1847) [id number] 22:15:00 Test Item Value Reference Range Interpretation Comments POC-SODIUM (BEAKER) 136 meq/L 135-148 TESTED A [place] [address] (test code = 1542) [facility] [address] [id number] 22:15:00 Test Item Value Reference Range Interpretation Comments POC-POTASSIUM 4.3 meq/L 3.6-5.5 TESTED AT [place] [address] (BEAKER) ([facility] [address] = 1540) [id number] 22:15:00 Test Item Value Reference Range Interpretation Comments POC-GLUCOSE (BEAKER) 147 mg/dL 70-110 H TESTED AT [place] [address] (test code = 1855) [facility] [place] [address] POCT-CALCIUM [id number] 22:15:00 Test Item Value Reference Range Interpretation Comments POC-CALCIUM IONIZED 1.10 mmol/L 1.12-1.27 L TESTED A T [place] [address] ([facility]) (test code = GENEVIEVE Bruce [place] 1536) [address] [id number] 22:15:00 Test Item Value Reference Range Interpretation Comments POC-HEMATOCRIT 38 % 40-50 L TESTED AT [place] [address] ([facility]) (test code = [place] [address] 1857) [id number] 22:15:00 Test Item Value Reference Range Interpretation Comments POC-HEMOGLOBIN 12.9 g/dL 13.0-16.8 L TESTED AT [place] [address] ([facility]) (test code ALEX [place] = 1856) [address]85[address]LVZFIY AT [place] [address] [place] [address] POCT-GLUCOSE [id number] 21:38:00 Test Item Value Reference Range Interpretation Comments POC-GLUCOSE METER 138 mg/dL 70-110 H TESTED AT [place] [address] ([facility]) (test code = GENEVIEVE Bruce [place] 1538) [address] POCT-GLUCOSE [id number] 19:35:00 Test Item Value Reference Range Interpretation Comments POC-GLUCOSE METER 116 mg/dL 70-110 H TESTED AT [place] [address] ([facility]) (test code = GENEVIEVE Bruce [place] 1538) [address] PROTHROMBIN [id number] 18:18:00 Test Item Value Reference Range Interpretation Comments PROTIME ([facility]) (test code = 15.5 seconds 11.7-14.7 H 759) INR ([facility]) (test code = 370) 1.2 <=5.9 RECOMMENDED COUMADIN/WARFARIN INR THERAPY RANGESSTANDARD DOSE: 2.0 - 3.0 Includes: PROPHYLAXIS for venous thrombosis, systemic embolization; TREATMENT for venous thrombosis and/or pulmonary embolus.HIGH RISK: Target INR is 2.5-3.5 for patients with mechanical heart valves.[id number] 18:18:00 Test Item Value Reference Range Interpretation Comments PARTIAL THROMBOPLASTIN TIME 36.5 seconds 22.5-36.0 H ([facility]) (test code = 760) CBC W/PLT COUNT & AUTO [id number] 18:11:00 Test Item Value Reference Range Interpretation Comments WHITE BLOOD CELL COUNT ([facility]) 9.6 K/ L 3.5-10.5 (test code = [...] PERCENT (BEAKER) (test code = 2801) [place], [id number] 17:27:00Reason for exam:->cbd stonesFINAL REPORT Fluoroscopy. History: Intraoperative. Findings: Radiologist was not present for the exam. Fluoroscopy was not performed by the undersigned. Please see operative/endoscopy report for details. Fluoroscopy Time: 2.5 min.One spot image was saved. IMPRESSION:Intraoperativefluoroscopy. Please see operative report for details. Signed: Steve Hernandez Verified Date/Time: 07/06/2018 17:27:55 Reading Location: [facility] Diagnostic Imaging Reading Room [place] [address] 1.310.12 POCT-GLUCOSE [id number] 12:00:00 Test Item Value Reference Range Interpretation Comments POC-GLUCOSE METER 100 mg/dL 70-110 TESTED AT [facility] 6720 (BEAKER) (test code = [facility] 1538) [address] POCT-GLUCOSE [id number] 08:03:00 Test Item Value Reference Range Interpretation Comments POC-GLUCOSE METER 116 mg/dL 70-110 H TESTED AT [facility] 6720 (BEAKER) (test code = [facility] 1538) [address] [id number] 07:04:00 Test Item Value Reference Range Interpretation Comments MAGNESIUM (BEAKER) (test code = 2.3 mg/dL 1.6-2.6 627) BASIC METABOLIC [id number] 07:04:00 Test Item Value Reference Range Interpretation [...] DIALYSIS PATIEN TS. Specimen moderately ictericHEPATIC FUNCTION [id number] 07:04:00 Test Item Value Reference Range Interpretation [...] 57 U/L 6-55 H 347) Specimen moderately [id number] 03:15:00 Test Item Value Reference Range Interpretation Comments MAGNESIUM (BEAKER) 2.5 mg/dL 1.6-2.6 Specimen slightly (test code = 627) hemolyzed BASIC METABOLIC [id number] 03:15:00 Test Item Value Reference Range Interpretation [...] DIALYSIS PATIEN TS. Specimen moderately ictericHEPATIC FUNCTION [id number] 03:15:00 Test Item Value Reference Range Interpretation [...] code = 347) hemolyzed Specimen moderately ictericPOCT-GLUCOSE [id number] 22:02:00 Test Item Value Reference Range Interpretation Comments POC-GLUCOSE METER 140 mg/dL 70-110 H [facility]ED AT [place] [address] [facility] (test code = GEN[place]EVE [place] 1538) [address] POCT-GLUCOSE [id number] 16:27:00 Test Item Value Reference Range Interpretation Comments POC-GLUCOSE METER 103 mg/dL 70-110 TESTED AT [facility] 6720 [facility] (test code = GEN[place]EVE [place] 1538) [address] POCT-GLUCOSE [id number] 11:55:00 Test Item Value Reference Range Interpretation Comments POC-GLUCOSE METER 123 mg/dL 70-110 H TESTED AT [place] [address] ([facility]) (test code = GEN[place]EVE [place] 1538) [address] POCT-GLUCOSE [id number] 08:13:00 Test Item Value Reference Range Interpretation Comments POC-GLUCOSE METER 116 mg/dL 70-110 H TESTED AT [facility] 6720 (BEAKER) (test code = GENEVIEVE [place] 1538) [address] [id number] 07:53:00 Test Item Value Reference Range Interpretation Comments MAGNESIUM (BEAKER) (test code = 1.9 mg/dL 1.6-2.6 627) BASIC METABOLIC [id number] 07:53:00 Test Item Value Reference Range Interpretation [...] DIALYSIS PATIEN TS. Specimen slightly ictericHEPATIC FUNCTION [id number] 07:53:00 Test Item Value Reference Range Interpretation [...] 12 U/L 6-55 347) Specimen slightly ictericPOCT-GLUCOSE [id number] 20:53:00 Test Item Value Reference Range Interpretation Comments POC-GLUCOSE METER 168 mg/dL 70-110 H TESTED AT [facility] 6720 (BEAKER) (test code = GENEVIEVE Bruce [place] 1538) [address] [id number] 17:12:00 Test Item Value Reference Range Interpretation Comments MAGNESIUM (BEAKER) (test code = 2.1 mg/dL 1.6-2.6 627) BASIC METABOLIC [id number] 17:12:00 Test Item Value Reference Range Interpretation [...] NOT APPLICABLE FOR DIALYSIS PATIEN TS. POCT-GLUCOSE [id number] 17:00:00 Test Item Value Reference Range Interpretation Comments POC-GLUCOSE METER 138 mg/dL 70-110 H TESTED AT [facility] 6720 [facility] (test code = VIVEKSANCHO Janis [place] 1538) [address] POCT-GLUCOSE [id number] 12:09:00 Test Item Value Reference Range Interpretation Comments POC-GLUCOSE METER 111 mg/dL 70-110 H TESTED AT [facility] 6720 [facility] (test code = VIVEKWI Janis [place] 1538) [address] POCT-GLUCOSE [id number] 07:30:00 Test Item Value Reference Range Interpretation Comments POC-GLUCOSE METER 102 mg/dL 70-110 TESTED AT [facility] 6720 (ASIM) (test code = GENEVIEVE [place] 1538) [address] U/S, ABDOMINAL, [id number] 07:27:00Please perform with doppler to evaluate for [...] pericholecystic fluid. The gallbladder is nondistended. There isno intrahepatic biliary dilatation. The common bile duct is not visualized likely secondary to overlying bowel gas. The visualized portions of the pancreas are within normal limits. The spleen is normal in size and echo- texture measuring 12 cm. The right kidney measures 12.3 cm and the left kidney 9.5cm in maximum size. There is no evidence of masses, stones or hydronephrosis. There is a 2.6 cm leftrenal cyst. There is a right pleural effusion. [...] with appropriate directional flow. Signed: Steve Hernandez [facility] Verified Date/Time: 07/04/2018 07:27:18 Reading Location: [facility] P006J Ultrasound Reading Room [id number] 07:12:00 Test Item Value Reference Range Interpretation Comments MAGNESIUM (BEAKER) 1.8 mg/dL 1.6-2.6 Specimen slightly (test code = 627) hemolyzed BASIC METABOLIC [id number] 07:12:00 Test Item Value Reference Range Interpretation [...] APPLICABLE FOR DIALYSIS PATIEN TS. HEPATIC FUNCTION [id number] 07:12:00 Test Item Value Reference Range Interpretation [...] slightly (test code = 347) hemolyzed PROTHROMBIN [id number] 07:11:00 Test Item Value Reference Range Interpretation Comments PROTIME (BEAKER) (test code = 16.4 seconds 11.7-14.7 H 759) INR (BEAKER) (test code = 370) 1.3 <=5.9 RECOMMENDED COUMADIN/WARFARIN INR THERAPY RANGESSTANDARD DOSE: 2.0 - 3.0 Includes: PROPHYLAXIS for venous thrombosis, systemic embolization; TREATMENT for venous thrombosis and/or pulmonary embolus.HIGH RISK: Target INR is 2.5-3.5 for patients with mechanical heart valves.POCT-GLUCOSE [id number] 20:11:00 Test Item Value Reference Range Interpretation Comments POC-GLUCOSE METER 156 mg/dL 70-110 H TESTED AT [facility] 6720 (BEAKER) (test code = GENEVIEVE Bruce [facility] 1538) [address] [id number] 17:51:00 Test Item Value Reference Range Interpretation Comments MAGNESIUM (BEAKER) (test code = 1.9 mg/dL 1.6-2.6 627) BASIC METABOLIC [id number] 17:51:00 Test Item Value Reference Range Interpretation [...] S NOT APPLICABLE FOR DIALYSIS PATIEN CASSIE. POCT-GLUCOSE [id number] 16:12:00 Test Item Value Reference Range Interpretation Comments POC-GLUCOSE METER 89 mg/dL 70-110 TESTED AT [facility] 6720 (ASIM) (test code = [place] [address] 1538) U/S, DUPLEX, [id number] 15:18:00Please perform with doppler to evaluate for [...] pericholecystic fluid. The gallbladder is nondistended. There isno intrahepatic biliary dilatation. The common bile duct is not visualized likely secondary to overlying bowel gas. The visualized portions of the pancreas are within normal limits. The spleen is normal in size and echo-texture measuring 12 cm. The right kidney measures 12.3 cm and the left kidney 9.5cm in maximum size. There is no evidence [...] MDReport Verified Date/Time: 07/03/2018 15:18:31 Reading Location: [facility] P006J Ultrasound Reading Room POCT-GLUCOSE [id number] 12:46:00 Test Item Value Reference Range Interpretation Comments POC-GLUCOSE METER 102 mg/dL 70-110 TESTED AT [facility] 6720 (BEAKER) (test code = GEN[place]EVE [place] 1538) [address] [id number] 07:10:00 Test Item Value Reference Range Interpretation Comments PHOSPHORUS (BEAKER) (test code = 3.7 mg/dL 2.3-4.7 604) [id number] 07:10:00 Test Item Value Reference Range Interpretation Comments MAGNESIUM (BEAKER) (test code = 1.8 mg/dL 1.6-2.6 627) BASIC METABOLIC [id number] 07:10:00 Test Item Value Reference Range Interpretation [...] APPLICABLE FOR DIALYSIS PATIEN TS. HEPATIC FUNCTION [id number] 07:10:00 Test Item Value Reference Range Interpretation [...] code = 14 U/L 6-55 347) POCT-GLUCOSE [id number] 07:02:00 Test Item Value Reference Range Interpretation Comments POC-GLUCOSE METER 112 mg/dL 70-110 H TESTED AT [place] [address] [facility] (test code = GENEVIEVE Bruce [facility] 1538) [address] POCT-GLUCOSE [id number] 21:51:00 Test Item Value Reference Range Interpretation Comments POC-GLUCOSE METER 147 mg/dL 70-110 H TESTED AT [place] [address] ([facility] (test code = [facility] 1538) [address] [id number] 20:05:00 Test Item Value Reference Range Interpretation Comments MAGNESIUM (BEAKER) 2.1 mg/dL 1.6-2.6 Specimen slightly (test code = 627) hemolyzed BASIC METABOLIC [id number] 20:05:00 Test Item Value Reference Range Interpretation [...] NOT APPLICABLE FOR DIALYSIS PATIEN TS. POCT-GLUCOSE [id number] 17:05:00 Test Item Value Reference Range Interpretation Comments POC-GLUCOSE METER 111 mg/dL 70-110 H TESTED AT [facility] 6720 (BEAKER) (test code = [facility] 1538) [address] POCT-GLUCOSE [id number] 11:34:00 Test Item Value Reference Range Interpretation Comments POC-GLUCOSE METER 142 mg/dL 70-110 H TESTED AT [facility] 6720 [facility] (test code = [facility] 1538) [address] POCT-GLUCOSE [id number] 07:43:00 Test Item Value Reference Range Interpretation Comments POC-GLUCOSE METER 110 mg/dL 70-110 TESTED AT [facility] 6720 (BEAKER) (test code = [facility] 1538) [address] [id number] 07:13:00 Test Item Value Reference Range Interpretation Comments PHOSPHORUS (BEAKER) (test code = 4.3 mg/dL 2.3-4.7 604) [id number] 07:13:00 Test Item Value Reference Range Interpretation Comments MAGNESIUM (BEAKER) (test code = 2.0 mg/dL 1.6-2.6 627) BASIC METABOLIC [id number] 07:13:00 Test Item Value Reference Range Interpretation [...] APPLICABLE FOR DIALYSIS PATIEN TS. HEPATIC FUNCTION [id number] 07:13:00 Test Item Value Reference Range Interpretation [...] (test code = 11 U/L 6-55 347) [id number] 07:13:00 Test Item Value Reference Range Interpretation Comments LIPASE (BEAKER) (test code = 749) 21 U/L 8-78 B-TYPE NATRIURETIC FACTOR (BNP)2018-07-02 07:13:00 Test Item Value Reference Range Interpretation Comments B-TYPE NATRIURETIC PEPTIDE (BEAKER) 689 pg/mL 0-100 H (test code = 700) POCT-GLUCOSE [id number] 22:15:00 Test Item Value Reference Range Interpretation Comments POC-GLUCOSE METER 124 mg/dL 70-110 H TESTED AT [facility] 6720 (BEAKER) (test code = GEN[place]EVE [place] 1538) [address] RAD, CHEST, 1 VIEW, NON [id number] 18:03:00Reason for exam:->chest painShould this be performed at the bedside?->YesFINAL REPORT AP chest HISTORY: Chest pain COMPARISON: None IMPRESSION:Status post median sternotomy. No acute skeletal findings. Cardiomegaly. Diffuse interstitial edema. Moderate right effusion. No pneumothorax. Signed: Emile Shirleyeport Verified Date/Time: 07/01/2018 18:03:03 Reading Location: [facility] B1 C013Y CT Body Reading Room POCT-GLUCOSE [id number] 17:04:00 Test Item Value Reference Range Interpretation Comments POC-GLUCOSE METER 146 mg/dL 70-110 H TESTED AT [place] [address] ([facility]) (test code = [facility] 1538) [address] POCT-GLUCOSE [id number] 11:52:00 Test Item Value Reference Range Interpretation Comments POC-GLUCOSE METER 163 mg/dL 70-110 H TESTED AT [place] [address] ([facility]) (test code = [facility] 1538) [address] HEMOGLOBIN [id number] 08:13:00 Test Item Value Reference Range Interpretation Comments HEMOGLOBIN A1C ([facility]) (test code = 7.1 % 4.3-6.1 H 368) POCT-GLUCOSE [id number] 08:00:00 Test Item Value Reference Range Interpretation Comments POC-GLUCOSE METER 113 mg/dL 70-110 H TESTED AT [place] [address] ([facility]) (test code = [employer] [facility] 1538) [address] TROPONIN [id number] 02:30:00 Test Item Value Reference Range Interpretation Comments TROPONIN I (AKER) (test code = 0.03 ng/mL 0.00-0.03 397) [...] acute neurological disease, and persistent tachyarrhythmia.BASIC METABOLIC [id number] 02:24:00 Test Item Value Reference Range Interpretation [...] APPLICABLE FOR DIALYSIS PATIEN TS. HEPATIC FUNCTION [id number] 02:24:00 Test Item Value Reference Range Interpretation [...] Specimen slightly (test code = 347) hemolyzed [id number] 02:23:00 Test Item Value Reference Range Interpretation Comments PHOSPHORUS (BEAKER) (test code = 4.4 mg/dL 2.3-4.7 604) [id number] 02:23:00 Test Item Value Reference Range Interpretation Comments MAGNESIUM (BEAKER) (test code = 1.8 mg/dL 1.6-2.6 627) BASIC METABOLIC [id number] 02:23:00 Test Item Value Reference Range Interpretation [...] NOT APPLICABLE FOR DIALYSIS PATIEN TS. LIPID [id number] 02:23:00 Test Item Value Reference Range Interpretation Comments TRIGLYCERIDES (BEAKER) (test code = 62 mg/dL 540) CHOLESTEROL (BEAKER) (test code = 145 mg/dL 631) HDL CHOLESTEROL (BEAKER) (test code 30 mg/dL = 976) LDL CHOLESTEROL CALCULATED (BEAKER) 103 mg/dL (test code = 633) Triglyceride Reference Range: Low Risk <150 Borderline 150-199 High Risk 200- 499 Very High Risk >=500Cholesterol Reference Range: Low Risk <200 Borderline 200-239 High Risk >240HDL Cholesterol Reference Range: Low Risk >=60 High Risk <40LDL Cholesterol Reference Range: Optimal <100 Near Optimal 100-129 Borderline 130-159 High 160-189 Very High >=190POCT-GLUCOSE [id number] 23:01:00 Test Item Value Reference Range Interpretation Comments POC-GLUCOSE METER 143 mg/dL 70-110 H TESTED AT [facility] 6720 (BEAKER) (test code = [facility] 1538) [address] TSH/FREE T4 IF [id number] 18:47:00 Test Item Value Reference Range Interpretation Comments THYROID STIMULATING HORMONE 3.50 uIU/mL 0.35-4.94 ([facility]) (test code = 772) TROPONIN [id number] 18:35:00 Test Item Value Reference Range Interpretation Comments TROPONIN I ([facility]) (test code = 0.01 ng/mL 0.00-0.03 397) [...] acidosis, acute neurological disease, and persistent tachyarrhythmia.POCT-GLUCOSE [id number] 18:18:00 Test Item Value Reference Range Interpretation Comments POC-GLUCOSE METER 149 mg/dL 70-110 H TESTED AT [place] [address] ([facility]) (test code = [facility] 1538) [address] HEMOGLOBIN AND [id number] 18:08:00 Test Item Value Reference Range Interpretation Comments HEMOGLOBIN ([facility]) (test code = 15.8 GM/DL 13.7-17.5 410) HEMATOCRIT ([facility]) (test code = 49.9 % 40.1-51.0 411) POCT-GLUCOSE [id number] 15:23:00 Test Item Value Reference Range Interpretation Comments POC-GLUCOSE METER 158 mg/dL 70-110 H TESTED AT [place] [address] ([facility]) (test code = [facility] 1538) [address]
[2022-10-15] MEDS ORDERED: FAMOTIDINE 20 MG/2 ML VIAL IV ONE (15:09)
[2022-10-15] MEDS ORDERED: NA CHLORIDE 0.9% 1,000 ML ONE (15:09)
[2022-10-15] MEDS ORDERED: ONDANSETRON 4 MG/2 ML VIAL ONE ×2 (15:09→16:57)
--- NOTE | 2022-10-15 15:32 | RAD REPORT ---
EXAM DESCRIPTION: CT - Abdomen Pelvis Wo Contrast - 10/15/2022 2:41 pm CLINICAL HISTORY: abd pain COMPARISON: <Comparisons> CT abdomen and pelvis 09/20/2018 TECHNIQUE: Axial [address] imaging of the abdomen and pelvis was performed without IV contrast. No IV contrast was given because of allergy, abnormal renal function, patient refusal or physician re quest. No oral contrast administered. All CT scans are performed using dose optimization technique as appropriate and may include automated exposure control or mA/KV adjustment according to patient size. FINDINGS: No suspicious findings in the lung bases. The liver, spleen and pancreas show no suspicious findings on non-contrast imaging. Cholecystectomy c lips are present. Pneumobilia is present. This has been previously seen and is not regarded as signif icant. No hydronephrosis of either kidney. Two 4 mm calcifications seen in the lower pole calyx on the left. These were present in 2018. Partially exophytic 3.4 centimeter cyst lateral mid left kidney has 1 pu nctate calcification along the rim. This makes this a minimally complex cyst but long-term significan ce is doubtful. Small exophytic 10 mm cyst lateral right kidney has not changed. There may be a small 10 mm cyst in the medial midportion of the right kidney. Detail is limited on noncontrast imaging. No significant adrenal finding. Isodense renal masses and pyelonephritis cannot be excluded in the ab sence of IV contrast. The urinary bladder is without significant finding. Incidental posterior left b ladder however noted. No dilated bowel loops or bowel wall thickening. Sigmoid colon is quite tortuous and redundant extend ing into the lateral upper right abdomen. Active GI process is not identifiable. Clips are seen in th e head of the pancreas region similar to comparison. No free air, free fluid or inflammatory strandin g. No hernia, mass or bulky lymphadenopathy. No suspicious bony findings. IMPRESSION: Non-contrast enhanced CT abdomen and pelvis imaging show no acute or emergent finding. Nonacute findings detailed in the body of the report. Above detailed findings are not significantly d ifferent from 2018 imaging. Full assessment is limited is the absence of IV contrast.
[2022-10-15 15:34] LABS: Absolute Lymphocytes (CBC) 0.6 K/uL (0.7-4.9)
[2022-10-15 15:40] LABS: Lymphocytes % 7.4 % (15.3-44.8); MCV 89.5 fL (80-100)
[2022-10-15 15:48] LABS: Albumin 4.2 g/dL (3.4-5.0); Bilirubin Total 1.1 mg/dL (0.2-1.0)
[2022-10-15 15:51] LABS: Urine Blood 1+ (Negative); Urine Glucose 1+ (Negative); Urine Protein 2+ (Negative); Urine Specific Gravity 1.025 (1.005-1.030)
[2022-10-15 16:36] LABS: Urine Bacteria None Seen /HPF (<20); Urine Mucus Slight /HPF (None Seen); Urine RBC <5 /HPF (None Seen)
[2022-10-15 16:41] LABS: MPV 7.6 fL (7.6-11.3)
[2022-10-15] MEDS ORDERED: MORPHINE 4 MG/ML SYR ONE (16:57)
--- NOTE | 2022-10-15 17:51 | EDPHYS ---
Physician Documentation [facility] Name: Chicho Welodn Age: 62 yrs Sex: Male : 1960 Arrival Date: 10/15/2022 Time: 14:13 Bed 16 Private MD: ED Physician Aram Harris HPI: 10/15 15:22 This 62 yrs old Male presents to ER via Ambulatory with complaints of kb Vomiting/Diarrhea, Abdominal Pain. 15:22 Pt reports left sided abd pain that started yesterday with n/v/d today.. kb 15:22 The patient presents with abdominal pain in the left upper quadrant, in the left lower kb quadrant. Onset: The symptoms/episode began/occurred yesterday. The symptoms do not radiate. Associated signs and symptoms: Pertinent positives: nausea, vomiting, and diarrhea. The symptoms are described as constant, waxing/waning. Modifying factors: The symptoms are alleviated by nothing, the symptoms are aggravated by nothing. Severity of pain: At its worst the pain was moderate in the emergency department the pain is unchanged. The patient has not experienced similar symptoms in the past. The patient has not recently seen a physician. Historical: - Allergies: 14:31 Iodine; db 14:31 SEAFOOD; db - PMHx: 14:31 CABG; Colitis; diabetes- resolved; gastric cardiac distress; Hypertension; Kidney db stones; Myocardial infarction; pleurasy; prostate hypertrophy; syncope; vasovagal; - PSHx: 14:31 Coronary artery bypass graft; Stented artery; db - Immunization history:: Adult Immunizations unknown, unknown. - Social history:: Smoking status: Patient denies any tobacco usage or history of. ROS: 15:22 Constitutional: Negative for fever, chills, and weight loss. kb 15:22 Abdomen/GI: Positive for abdominal pain, nausea, vomiting, and diarrhea. 15:22 All other systems are negative. Exam: 15:22 Constitutional: This is a well developed, well nourished patient who is awake, alert, kb and in no acute distress. Head/Face: Normocephalic, atraumatic. ENT: Moist Mucous membranes Cardiovascular: Regular rate and rhythm with a normal S1 and S2. No gallops, murmurs, or rubs. No pulse deficits. Respiratory: Respirations even and unlabored. No increased work of breathing. Talking in full sentences Back: No spinal tenderness. No costovertebral tenderness. Full range of motion. Skin: Warm, dry with normal turgor. Normal color. MS/ Extremity: Pulses equal, no cyanosis. Neurovascular intact. Full, normal range of motion. Neuro: Awake and alert, GCS 15, oriented to person, place, time, and situation. Moves all extremities. Normal gait. Psych: Awake, alert, with orientation to person, place and time. Behavior, mood, and affect are within normal limits. 15:22 Abdomen/GI: Inspection: abdomen appears normal, Bowel sounds: normal, Palpation: soft, in all quadrants, mild abdominal tenderness, in the left upper quadrant and left lower quadrant. Vital Signs: 14:30 BP 191 / 131; Pulse 88; Resp 18; Temp 97.7(O); Pulse Ox 98% ; Weight 90.72 kg; Height 5 db ft. 6 in. (167.64 cm); Pain 4/10; 17:00 BP 182 / 116; Pulse 90; Resp 18; Pulse Ox 99% on R/A; Pain 4/10; db 18:00 BP 189 / 115; Pulse 89; Resp 18; Pulse Ox 95% on R/A; db 14:30 Body Mass Index 32.28 (90.72 kg, 167.64 cm) db MDM: 14:23 Patient medically screened. kb 15:23 Data reviewed: vital signs, nurses notes. Data interpreted: Pulse oximetry: on room air kb is 98 %. Interpretation: normal. 17:50 Counseling: I had a detailed discussion with the patient and/or guardian regarding: the kb historical points, exam findings, and any diagnostic results supporting the discharge/admit diagnosis, lab results, radiology results, the need for outpatient follow up, a event manager, to return to the emergency department if symptoms worsen or persist or if there are any questions or concerns that arise at home. 10/15 14:23 Order name: CBC with Diff kb 10/15 14:23 Order name: CMP; Complete Time: 15:49 kb 10/15 14:23 Order name: Lipase; Complete Time: 15:49 kb 10/15 15:52 Order name: Urine Dipstick-Ancillary; Complete Time: 16:01 EDMS 10/15 16:02 Order name: Urine Microscopic Only; Complete Time: 16:42 kb 10/15 14:23 Order name: IV Saline Lock; Complete Time: 15:25 kb 10/15 14:28 Order name: Abdomen ; Complete Time: 15:33 EDMS 10/15 14:23 Order name: Labs collected and sent; Complete Time: 15:25 kb 10/15 14:23 Order name: Urine Dipstick-Ancillary (obtain specimen); Complete Time: 15:47 kb 10/15 17:50 Order name: PO challenge; Complete Time: 18:14 kb Administered Medications: 15:20 Drug: NS 0.9% 1000 ml Route: IV; Rate: 1 bolus; Site: right antecubital; db 18:36 Follow up: Response: No adverse reaction; IV Status: Completed infusion; IV Intake: db 1000ml 15:20 Drug: Pepcid (famotidine) 20 mg Route: IVP; Site: right antecubital; db 18:36 Follow up: Response: No adverse reaction db 15:20 Drug: Zofran (Ondansetron) 4 mg Route: IVP; Site: right antecubital; db 18:36 Follow up: Response: No adverse reaction db 17:00 Drug: Zofran (Ondansetron) 4 mg Route: IVP; Site: right antecubital; db 18:37 Follow up: Response: No adverse reaction db 17:00 Drug: morphine 4 mg Route: IVP; Infused Over: 4 mins; Site: right antecubital; db 18:37 Follow up: Response: No adverse reaction db 18:14 Drug: Bentyl (dicyclomine) 20 mg Route: PO; db 18:37 Follow up: Response: No adverse reaction db Disposition: 17:59 Co-signature as Attending Physician, Aram PASTOR was immediately available on-site ms3 in the Emergency Department for consultation in the care of the patient. Disposition Summary: 10/15/22 17:51 Discharge Ordered Location: Home kb Condition: Stable kb Diagnosis - Abdominal pain, Generalized kb - Nausea with vomiting, unspecified kb - Diarrhea, unspecified kb Followup: kb - With: Emergency Department - When: As needed - Reason: Worsening of condition Followup: kb - With: Private Physician - When: 2 - 3 days - Reason: Recheck today's complaints, Continuance of care, Re-evaluation by your physician Discharge Instructions: - Discharge Summary Sheet kb - Food Choices to Help Relieve Diarrhea, Adult kb - Nausea and Vomiting, Adult, [id number] kb - Abdominal Pain, Adult, [id number] kb - Diarrhea, Adult, [id number] kb Forms: - Medication Reconciliation Form kb - Thank You Letter kb - Antibiotic Education kb - Prescription Opioid Use kb Prescriptions: - Zofran 4 mg Oral Tablet - take 1 tablet by ORAL route every 6 hours As needed; 20 tablet; Refills: 0, kb Product Selection Permitted - dicyclomine 20 mg Oral Tablet - take 1 tablet by ORAL route 4 times per day As needed; 20 tablet; Refills: 0, kb Product Selection Permitted Signatures: Dispatcher [employer] EDMS Lisa Campbell, QUITA-C CUP TRIMMING MACHINE OPERATOR-Aram Arias DO DO ms3 Zoie Darby, RN RN db Corrections: (The following items were deleted from the chart) 14:26 14:24 Abdomen Pelvis W [id number] ordered. EDMS EDMS
--- NOTE | 2022-10-15 17:51 | ER ---
Nurse's Notes [facility] [place] Name: Chicho Weldon Age: 62 yrs Sex: Male : 1960 Arrival Date: 10/15/2022 Time: 14:13 Bed 16 Private MD: Diagnosis: Abdominal pain, Generalized;Nausea with vomiting, unspecified;Diarrhea, unspecified Presentation: 10/15 14:30 Chief complaint: Patient states: Abdominal pain/ N/V/ diarrhea started today at 1100. db Coronavirus screen: Vaccine status: At this time, unable to obtain information related to travel outside the [place] At this time, the client does not indicate any symptoms associated with coronavirus-19. Ebola Screen: Patient negative for fever greater than or equal to 101.5 degrees Fahrenheit, and additional compatible Ebola Virus Disease symptoms Patient denies exposure to infectious person. Patient denies travel to an Ebola-affected area in the 21 days before illness onset. No symptoms or risks identified at this time. Initial Sepsis Screen: Does the patient meet any 2 criteria? No. Patient's initial sepsis screen is negative. Does the patient have a suspected source of infection? No. Patient's initial sepsis screen is negative. Risk Assessment: Do you want to hurt yourself or someone else? Patient reports no desire to harm self or others. Onset of symptoms was October 15, 2022. 14:30 Method Of Arrival: Ambulatory db 14:30 Acuity: AMANDA 2 db Triage Assessment: 14:31 General: Appears in no apparent distress. comfortable, Behavior is cooperative, crying. db Pain: Complains of pain in abdomen. GI: Abdomen is non-distended, Reports lower abdominal pain, diarrhea, nausea, vomiting. Historical: - Allergies: 14:31 Iodine; db 14:31 SEAFOOD; db - PMHx: 14:31 CABG; Colitis; diabetes- resolved; gastric cardiac distress; Hypertension; Kidney db stones; Myocardial infarction; pleurasy; prostate hypertrophy; syncope; vasovagal; - PSHx: 14:31 Coronary artery bypass graft; Stented artery; db - Immunization history:: Adult Immunizations unknown, unknown. - Social history:: Smoking status: Patient denies any tobacco usage or history of. Screenin:33 [facility] ED Fall Risk Assessment (Adult) History of falling in the last 3 months, db including since admission No falls in past 3 months (0 pts) Confusion or Disorientation No (0 pts) Intoxicated or Sedated No (0 pts) Impaired Gait No (0 pts) Mobility Assist Device Used Yes (1 pt) Altered Elimination No (0 pt) Score/Fall Risk Level 0 - 2 = Low Risk Oriented to surroundings. Abuse screen: Denies threats or abuse. Denies injuries from another. Nutritional screening: No deficits noted. Tuberculosis screening: No symptoms or risk factors identified. Assessment: 14:32 Reassessment: see triage for initial assessment. GI: Reports nausea, vomiting. db 14:33 Reassessment: PATIENT TO CT. db 16:30 Reassessment: Patient appears in no apparent distress at this time. No changes from db previously documented assessment. Patient and/or family updated on plan of care and expected duration. Pain level reassessed. Patient is alert, oriented x 3, equal unlabored respirations, skin warm/dry/pink. 17:30 Reassessment: Patient appears in no apparent distress at this time. No changes from db previously documented assessment. Patient and/or family updated on plan of care and expected duration. Pain level reassessed. Patient is alert, oriented x 3, equal unlabored respirations, skin warm/dry/pink. General: Appears in no apparent distress. comfortable, Behavior is calm, cooperative, appropriate for age, quiet. Pain: Pain currently is 2 out of 10 on a pain scale. Neuro: No deficits noted. Level of Consciousness is awake, alert, obeys commands, Oriented to person, place, time, situation, Appropriate for age. GI: Abdomen is round. 18:14 Reassessment: PATIENT PROVIDED WATER FOR PO CHALLENGE. db 18:34 Reassessment: Patient appears in no apparent distress at this time. No changes from db previously documented assessment. Patient and/or family updated on plan of care and expected duration. Pain level reassessed. Patient is alert, oriented x 3, equal unlabored respirations, skin warm/dry/pink. 18:44 Reassessment: PATIENT TOLERATED PO CHALLENGE. db Vital Signs: 14:30 BP 191 / 131; Pulse 88; Resp 18; Temp 97.7(O); Pulse Ox 98% ; Weight 90.72 kg; Height 5 db ft. 6 in. (167.64 cm); Pain 4/10; 17:00 BP 182 / 116; Pulse 90; Resp 18; Pulse Ox 99% on R/A; Pain 4/10; db 18:00 BP 189 / 115; Pulse 89; Resp 18; Pulse Ox 95% on R/A; db 14:30 Body Mass Index 32.28 (90.72 kg, 167.64 cm) db ED Course: 14:13 Patient arrived in ED. as 14:15 Lisa Campbell FNP-C [facility]. kb 14:15 Aram Harris DO is Attending Physician. kb 14:23 Zoie Darby, SAIGE is Primary Nurse. db 14:31 Triage completed. db 14:31 Arm band placed on right wrist. db 14:42 Abdomen In Process Unspecified. EDMS 15:17 Inserted saline lock: 22 gauge in right antecubital area, using aseptic technique. db Blood collected. 18:35 Patient has correct armband on for positive identification. Bed in low position. Call db light in reach. Side rails up X2. radiation monitor on. Pulse ox on. Warm blanket given. 18:44 No provider procedures requiring assistance completed. IV discontinued, intact, db bleeding controlled, No redness/swelling at site. Administered Medications: 15:20 Drug: NS 0.9% 1000 ml Route: IV; Rate: 1 bolus; Site: right antecubital; db 18:36 Follow up: Response: No adverse reaction; IV Status: Completed infusion; IV Intake: db 1000ml 15:20 Drug: Pepcid (famotidine) 20 mg Route: IVP; Site: right antecubital; db 18:36 Follow up: Response: No adverse reaction db 15:20 Drug: Zofran (Ondansetron) 4 mg Route: IVP; Site: right antecubital; db 18:36 Follow up: Response: No adverse reaction db 17:00 Drug: Zofran (Ondansetron) 4 mg Route: IVP; Site: right antecubital; db 18:37 Follow up: Response: No adverse reaction db 17:00 Drug: morphine 4 mg Route: IVP; Infused Over: 4 mins; Site: right antecubital; db 18:37 Follow up: Response: No adverse reaction db 18:14 Drug: Bentyl (dicyclomine) 20 mg Route: PO; db 18:37 Follow up: Response: No adverse reaction db Medication: 14:32 VIS not applicable for this client. db Intake: 18:36 IV: 1000ml; Total: 1000ml. db Outcome: 17:51 Discharge ordered by . pranay 18:44 Discharged to home ambulatory. db 18:44 Condition: stable 18:44 Discharge instructions given to patient, Instructed on discharge instructions, follow up and referral plans. Demonstrated understanding of instructions, Prescriptions given X 2. 19:03 Patient left the ED. db Signatures: Dispatcher [employer] EDLisa Castro, ACTUARIAL MATHEMATICIAN-C ACTUARIAL MATHEMATICIAN-Rabia Larios Danielle, RN RN db Corrections: (The following items were deleted from the chart) 17:04 17:00 BP 182 / 116; Pulse 90bpm; Resp 18bpm; Pulse Ox 99% RA; db db
[2022-10-15] MEDS ORDERED: DICYCLOMINE HCL 10 MG CAP ONE (18:12)
[2022-10-15 19:17] VITALS: TEMP 97.7
[2022-10-15 19:28] VITALS: BP 189/115; O2SAT 95
[2022-10-15 19:37] LABS: Blood Morphology Comment NOT SEEN (NOT SEEN); Platelet Estimate ADEQ; White Blood Cell Scan OK (OK)
== END 2022-10-15 19:03 | disposition home or self-care (01) ==
LOC: ER 14:11
DX: R11.2 Nausea with vomiting, unspecified (principal); R10.84 Generalized abdominal pain; R19.7 Diarrhea, unspecified
CPT/HCPCS: 36415; 74176; 80053; 81003; 81015; 83690; 85025; 96361; 96374; 96375; 99284; J2405; J7030

== ENCOUNTER 2023-09-10 21:36 | Inpatient (IN) | payer SELFPAY ==
--- OUTSIDE RECORDS SUMMARY | 2023-09-10 21:45 | XMS REPORT | Continuity of Care Document ---
:[address] [facility] t Address [address] [facility] [address] [place] [address] Care Team Providers Name Role Phone No, Pcp [facility] Primary Care Physician Unavailable Solitario Del Angel MD Attending Clinician SOLITARIO DEL ANGEL Attending Clinician Unavailable Doctor Unassigned, [place] Attending Clinician Unavailable CAROLYN QUESADA Attending Clinician Unavailable MEREDITH CORRAL Attending Clinician Unavailable CAROLYN QUESADA Admitting Clinician Unavailable DYAN SCHAEFER Admitting Clinician Unavailable Problems Condition Condition Condition Status Onset Resolution Last Treating Co mments Source Name Details Category Date Date Treatment Clinician Date Acute Acute Disease Active 2017-[address] [facility] renal renal 11-21 [facility] failure failure 00:00: Medical (ARF) (ARF) 00 [place] Anemia Anemia Disease Active 2017-[address] [facility] [address] 11-21 [facility] 00:00: [facility] 00 [place] Abdominal Abdominal Disease Active 2017-[address] [facility] [address] pain pain 11-21 [facility] 00:00: Medical 00 [place] Cardiogeni Cardiogeni Disease Recurre [facility] shock c shock nce 17 [facility] 00:00: Medical 00 [place] Pancreatit Pancreatit Disease Active [facility] is is 07-08 [facility] 00:00: Medical 00 [place] Hemorrhagi Hemorrhagi Disease Recurre [facility] shock c shock nce - [facility] 00:00: Medical 00 [place] Acute Acute Disease Active [facility] blood loss blood loss 07-07 [facility] anemia anemia 00:00: Medical 00 [place] Morbid Morbid Disease Recurre [facility] obesity obesity nce 07-06 [facility] 00:00: Medical 00 [place] Chest Chest Disease Active 2018-[address] [facility] [address] pain, pain, 9-13 [facility] unspecifie unspecifie 00:00: Me dical d type d type 00 [place] Accelerate Accelerate Disease Active [facility] d 07-06 [facility] hypertensi hypertensi 00:00: Me dical on [place] Hyponatrem Hyponatrem Disease Active [facility] ia ia 07-06 [facility] 00:00: Medical 00 [place] GI bleed GI bleed Disease Active [facility] requiring requiring 13 [facility] more than more than 00:00: Medi joycelyn 4 units of 4 units of 00 Ce nter blood in blood in 24 hours, 24 hours, ICU, or ICU, or surgery surgery Hypokalemi Hypokalemi Disease Active [facility] a a -11 [facility] 00:00: Medical 00 [place] Hypomagnes Hypomagnes Disease Active [facility] emia emia - [facility] 00:00: Medical 00 [place] 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: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 Center 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 DEION (acute DEION (acute Disease Recurre [facility] kidney kidney nce 9-10 [facility] injury) injury) 00:00: Medical 00 [place] 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 00:00: Medica l 00 [place] Cholelithi Cholelithi Disease Active [facility] asis asis 9-10 [facility] 00:00: Medical 00 [place] CKD CKD Disease Active [facility] (chronic (chronic 9-10 [facility] kidney kidney 00:00: Medical disease) disease) 00 Center stage 2, stage 2, GFR 60-89 GFR 60-89 ml/min ml/min S/P CABG x S/P CABG x Disease Recurre [facility] 3 3 nce 06-30 [facility] 00:00: Medical 00 [place] Diabetes Diabetes Disease Recurre [facility] mellitus mellitus nce 06-30 [facility] type 2 in type 2 in 00:00: Medi joycelyn obese obese 00 Center Uncontroll Uncontroll Disease Recurre [facility] ed ed nce 06-30 [facility] hypertensi hypertensi 00:00: Me dical on Center Chest pain Chest pain Disease Active [facility] 06-30 [facility] 00:[facility]: Medical 00 Center No known No known Disease Unive rs active active ity of problems problems [facility] Allergies, Adverse Reactions, Alerts Allergy Allergy Status Severity Reaction(s) Onset Inactive Treating Comm ents Source Name Type Date Date Clinician IODINE Drug Active Unknown-Cmnt 2017-10 Univ ers AND Class 11-20 ity of IODIDE 00:00: [place] CONTAINI 00 [facility] PRODUCTS Iodine Propensi Active 2017-[address] And ty to 11-20 [facility] Iodide adverse 00:00: Medical Containi reaction 00 Center ng s Products Shellfis Propensi Active Anaphylaxis [facility] h ty to 06-30 [facility] Containi adverse 00:00: Medical ng reaction 00 Center Products s NO KNOWN Drug Active Univers ALLERGIE Class ity of S [facility] Family History Family Member Diagnosis Comments Start Date Stop Date Source Natural father Diabetes [facility] Natural father Heart disease [facility] Natural father Hypertension [facility] Natural father Kidney disease [facility] Social History Social Habit Start Date Stop Date Quantity Comments Source Exposure to Not sure [facility] SARS-CoV-2 (event) [facility] History SDOH Alcohol [facility] Frequency [facility] History SDOH Alcohol [facility] Std Drinks [facility] History SDOH Alcohol [facility] Binge [facility] Sexual orientation [facility] Alcohol intake 2018-09-25 2018-09-25 .29 /d [facility] 00:00:00 00:00:00 [facility] Tobacco use and 2018-06-30 2018-06-[address] [facility] Amaya kes exposure 00:00:00 00:00:00 [facility] Alcohol Comment 2018-06-30 2018-06-[address] [facility] [facility] Amaya kes 00:00:00 00:00:00 [facility] History of tobacco 1995-06-[address] [facility] use 00[facility]00:00 [facility] Sex Assigned At [address] Amaya kes 00:00:00 00:00:00 [facility] Smoking Status Start Date Stop Date Source Unknown if ever smoked [facility]it y [facility] Never smoker [facility] Former smoker 2018-06-30 00:00:00 2018-06-30 00:00:00 [facility] Medications Ordered Filled Start Stop Current Ordering [...] Procedure Date / Time Performed Performing Clinician Sour e CONSENT/REFUSAL FOR 2021-02-11 18:51:21 Doctor Unassfreddie, Justine Un [facility] DIAGNOSIS AND Name Medical Branch TREATMENT Encounters Start End Encounter Admission Attending Care Care Encounter Source Date/Time Date/Time Type Type Clinicians Facility Department ID 2021-02-11 2021-02-11 Office Bean [facility] [id number] Univers 14:00:00 14:15:00 Visit [facility] [id number] it y of Surgical [id number] Josesito as Specialti [id number] Ma dical es [address] [place] 2021-02-11 2021-02-11 Outpatient R [facility] [id number] Univers 14:00:00 14:00:00 SOLITARIO [facility] 2021-02-11 2021-02-11 Orders Doctor POLK [id number] Univers 00:00:00 00:00:00 Only Unassigned, BINTA [id number] ity of [place] [facility] [id number] Josesito as [id number] [place] [id number] Branch Results Test Description Test Time Test Comments Results Result Sourc e Comments [place], ERCP 2018-09-24 Reason for FINAL REPORT PATIENT 17:04:00 exam:->Abdomina ID: [id number] ERCP, l pain 09/24/2018 Clinical History: Abdominal [...] interrogation of the biliary tree. Signed: Emile Shirleyeport Verified Date/Time: 09/24/2018 17:04:26 Reading Location: [facility] B1 [id number] Ortho Consult Reading Room C METABOLIC [...] NOT 1092) ACCURATE CRE ATININE CLEARANCE IN OR EDICTING GLOMERULAR FILT RATION RATE. ESTIMATED GFR IS NOT APPLICABLE FOR DIALYSIS PATIENTS. CBC W/PLT COUNT & AUTO [id number] 14:29:00 Test Item Value Reference Range Interpretation [...] PERCENT (BEAKER) (test code = 2801) POCT-GLUCOSE [id number] 11:57:00 Test Item Value Reference Range Interpretation Comments POC-GLUCOSE METER 142 mg/dL 70-110 H TESTED AT [facility] 6720 (BEBANNER) (test code = GENEVIEVE Bruec [facility] 1538) [id number] POCT-GLUCOSE [id number] 11:09:00 Test Item Value Reference Range Interpretation Comments POC-GLUCOSE METER 135 mg/dL 70-110 H TESTED AT [facility] 6720 (BEAKER) (test code = GENEVIEVE Bruce [facility] 1538) [address] POCT-GLUCOSE [id number] 05:59:00 Test Item Value Reference Range Interpretation Comments POC-GLUCOSE METER 118 mg/dL 70-110 H TESTED AT [place] [address] (BEBANNER) (test code = [facility] 1538) [address] POCT-GLUCOSE [id number] 01:15:00 Test Item Value Reference Range Interpretation Comments POC-GLUCOSE METER 107 mg/dL 70-110 TESTED AT [place] [address] (BEBANNER) (test code = [facility] 1538) [address] POCT-GLUCOSE [id number] 21:13:00 Test Item Value Reference Range Interpretation Comments POC-GLUCOSE METER 139 mg/dL 70-110 H TESTED AT [place] [address] ([facility]) (test code = [facility] 1538) [address] POCT-GLUCOSE [id number] 18:29:00 Test Item Value Reference Range Interpretation Comments POC-GLUCOSE METER 139 mg/dL 70-110 H TESTED AT [place] [address] ([facility]) (test code = [facility] 1538) [address]702 POCT-GLUCOSE [id number] 13:09:00 Test Item Value Reference Range Interpretation Comments POC-GLUCOSE METER 100 mg/dL 70-110 TESTED AT [place] [address] ([facility]) (test code = [facility] 1538) [address] BASIC METABOLIC [id number] 08:28:00 Test Item Value Reference Range Interpretation [...] S NOT APPLICABLE FOR DIALYSIS PATIEN TS. [id number] 08:23:00 Test Item Value Reference Range Interpretation Comments MAGNESIUM (BEAKER) (test code = 2.5 mg/dL 1.6-2.6 627) URINALYSIS W/ REFLEX URINE [id number] 07:38:00 Test Item Value Reference Range Interpretation [...] code = 516) SOURCE(BEAKER) (test code = 2794) POCT-GLUCOSE [id number] 07:08:00 Test Item Value Reference Range Interpretation Comments POC-GLUCOSE METER 127 mg/dL 70-110 H TESTED AT [facility] 6720 (BEAKER) (test code = GENEVIEVE DER[place] 1532) [address] CBC W/PLT COUNT & AUTO [id number] 07:02:00 Test Item Value Reference Range Interpretation [...] PERCENT (BEAKER) (test code = 2801) PROTHROMBIN [id number] 06:52:00 Test Item Value Reference Range Interpretation Comments PROTIME (BEBANNER) (test code = 15.7 seconds 11.7-14.7 H 759) INR ([facility]) (test code = 370) 1.3 <=5.9 RECOMMENDED COUMADIN/WARFARIN INR THERAPY RANGESSTANDARD DOSE: 2.0 - 3.0 Includes: PROPHYLAXIS for venous thrombosis, systemic embolization; TREATMENT for venous thrombosis and/or pulmonary embolus.HIGH RISK: Target INR is 2.5-3.5 for patients with mechanical heart valves.POCT-GLUCOSE [id number] 22:38:00 Test Item Value Reference Range Interpretation Comments POC-GLUCOSE METER 136 mg/dL 70-110 H TESTED AT [place] [address] ([facility]) (test code = VIVEKSANCHO Bruce [facility] 1538) [address] POCT-GLUCOSE [id number] 18:00:00 Test Item Value Reference Range Interpretation Comments POC-GLUCOSE METER 124 mg/dL 70-110 H TESTED AT [place] [address] ([facility]) (test code = GENEVIEVE Bruce [facility] 1538) [address] POCT-GLUCOSE [id number] 12:37:00 Test Item Value Reference Range Interpretation Comments POC-GLUCOSE METER 174 mg/dL 70-110 H TESTED AT [place] [address] ([facility]) (test code = VIVEKSANCHO Bruce [facility] 1538) [address]198 POCT-GLUCOSE [id number] 08:22:00 Test Item Value Reference Range Interpretation Comments POC-GLUCOSE METER 109 mg/dL 70-110 TESTED AT [place] [address] ([facility]) (test code = GENEVIEVE Bruce [facility] 1538) [address] BASIC METABOLIC [id number] 06:30:00 Test Item Value Reference Range Interpretation [...] S NOT APPLICABLE FOR DIALYSIS PATIEN TS. [id number] 06:25:00 Test Item Value Reference Range Interpretation Comments MAGNESIUM (BEAKER) (test code = 2.2 mg/dL 1.6-2.6 627) CBC W/PLT COUNT & AUTO [id number] 05:58:00 Test Item Value Reference Range Interpretation [...] PERCENT (BEAKER) (test code = 2801) POCT-GLUCOSE [id number] 23:58:00 Test Item Value Reference Range Interpretation Comments POC-GLUCOSE METER 130 mg/dL 70-110 H TESTED AT [place] [address] ([facility]) (test code = [facility] 1538) [address] OCCULT BLOOD, [id number] 21:20:00 Test Item Value Reference Range Interpretation Comments FECAL OCCULT BLOOD (BEAKER) (test Negative Negative code = 618) RETICULOCYTE [id number] 17:55:00 Test Item Value Reference Range Interpretation Comments RETICULOCYTE COUNT PCT (AKER) (test 0.8 % 0.5-1.8 code = 575) POCT-GLUCOSE [id number] 17:43:00 Test Item Value Reference Range Interpretation Comments POC-GLUCOSE METER 108 mg/dL 70-110 TESTED AT [place] [address] ([facility]) (test code = [facility] 1538) [address] [id number] 17:11:00 Test Item Value Reference Range Interpretation [...] 20-55 L (test code = 2590) POCT-GLUCOSE [id number] 11:43:00 Test Item Value Reference Range Interpretation Comments POC-GLUCOSE METER 112 mg/dL 70-110 H TESTED AT [facility] 6720 ([facility]) (test code = GENEVIEVE Bruce [facility] 1538) [address] U/S, ABDOMINAL, [id number] 08:34:00Reason for exam:->acute renal failure and recent [...] MDReport Verified Date/Time: 09/21/2018 08:34:21 Reading Location: [address] Ultrasound Reading Room POCT-GLUCOSE [id number] 06:34:00 Test Item Value Reference Range Interpretation Comments POC-GLUCOSE METER 83 mg/dL 70-110 TESTED AT [facility] 67[address] ([place]NER) (test code = GENEVIEVE Bruce [facility] [address] 1538) BASIC METABOLIC [id number] 06:14:00 Test Item Value Reference Range Interpretation [...] S NOT APPLICABLE FOR DIALYSIS PATIEN TS. [id number] 06:10:00 Test Item Value Reference Range Interpretation Comments MAGNESIUM (BEAKER) (test code = 2.4 mg/dL 1.6-2.6 627) CBC W/PLT COUNT & AUTO [id number] 05:16:00 Test Item Value Reference Range Interpretation [...] code = 2801) URINALYSIS WITH MICROSCOPIC IF [id number] 05:08:00 Test Item Value Reference Range Interpretation [...] code = 463) SOURCE(BEAKER) (test code = 7527) URINALYSIS [id number] 05:08:00 Test Item Value Reference Range Interpretation [...] (test Rare code = 1584) CREATININE, RANDOM [id number] 05:03:00 Test Item Value Reference Range Interpretation Comments CREATININE URINE (BEAKER) (test 95.1 mg/dL code = 375) Reference Range: No NormalsSODIUM, RANDOM [id number] 05:03:00 Test Item Value Reference Range Interpretation Comments SODIUM URINE (BEAKER) (test code = 45 meq/L 243) Reference Range: No NormalsUREA NITROGEN, RANDOM [id number] 05:03:00 Test Item Value Reference Range Interpretation Comments UREA NITROGEN URINE (BEAKER) (test 494 mg/dL code = 538) Reference Range: No NormalsCOMPREHENSIVE METABOLIC [id number] 00:16:00 Test Item Value Reference Range Interpretation [...] 90 pg/mL 0-100 (test code = 700) [id number] 00:11:00 Test Item Value Reference Range Interpretation Comments LIPASE (BEAKER) (test code = 749) 94 U/L 8-78 H [id number] 00:11:00 Test Item Value Reference Range Interpretation Comments AMYLASE (BEAKER) (test code = 349) 71 U/L 25-125 LACTIC ACID, VENOUS, WHOLE [id number] 00:04:00 Test Item Value Reference Range Interpretation Comments LACTATE BLOOD VENOUS 0.8 mmol/L 0.5-2.2 Specime n slightly (2) (BEAKER) (test hemolyzed code = 0758) CBC W/PLT COUNT & AUTO [id number] 23:48:00 Test Item Value Reference Range Interpretation [...] (BEAKER) (test code = 2801) HEMOGLOBIN AND [id number] 13:29:00 Test Item Value Reference Range Interpretation Comments HEMOGLOBIN (BEAKER) (test code = 9.4 GM/DL 13.7-17.5 L 410) HEMATOCRIT (BEAKER) (test code = 29.2 % 40.1-51.0 L 411) POCT-GLUCOSE [id number] 12:50:00 Test Item Value Reference Range Interpretation Comments POC-GLUCOSE METER 188 mg/dL 70-110 H TESTED AT [facility] 6720 (BEAKER) (test code = GENEVIEVE [place] 1538) [address] BASIC METABOLIC [id number] 10:11:00 Test Item Value Reference Range Interpretation [...] FOR DIALYSIS PATIEN TS. Specimen slightly ictericPOCT-GLUCOSE [id number] 09:55:00 Test Item Value Reference Range Interpretation Comments POC-GLUCOSE METER 149 mg/dL 70-110 H TESTED AT [facility] 6720 ([place]NER) (test code = GENEVIEVE Bruce [facility] 1538) [address] PROTHROMBIN [id number] 05:39:00 Test Item Value Reference Range Interpretation Comments PROTIME (BEAKER) (test code = 15.8 seconds 11.7-14.7 H 759) INR (BEAKER) (test code = 370) 1.3 <=5.9 RECOMMENDED COUMADIN/WARFARIN INR THERAPY RANGESSTANDARD DOSE: 2.0 - 3.0 Includes: PROPHYLAXIS for venous thrombosis, systemic embolization; TREATMENT for venous thrombosis and/or pulmonary embolus.HIGH RISK: Target INR is 2.5-3.5 for patients with mechanical heart valves.[id number] 05:31:00 Test Item Value Reference Range Interpretation Comments MAGNESIUM (BEAKER) (test code = 1.5 mg/dL 1.6-2.6 L 627) HEPATIC FUNCTION [id number] 05:31:00 Test Item Value Reference Range Interpretation [...] 6-55 347) CBC W/PLT COUNT & AUTO [id number] 05:15:00 Test Item Value Reference Range Interpretation [...] PERCENT (BEAKER) (test code = 2801) POCT-GLUCOSE [id number] 21:20:00 Test Item Value Reference Range Interpretation Comments POC-GLUCOSE METER 145 mg/dL 70-110 H TESTED AT [place] [address] (BEAKER) (test code = [facility] Janis [facility] 1538) [address] POCT-GLUCOSE [id number] 18:26:00 Test Item Value Reference Range Interpretation Comments POC-GLUCOSE METER 145 mg/dL 70-110 H TESTED AT [place] [address] (BEAKER) (test code = [facility] 1538) [address] HEMOGLOBIN AND [id number] 18:06:00 Test Item Value Reference Range Interpretation Comments HEMOGLOBIN (BEAKER) (test code = 9.2 GM/DL 13.7-17.5 L 410) HEMATOCRIT (BEAKER) (test code = 28.3 % 40.1-51.0 L 411) CBC W/PLT COUNT & AUTO [id number] 13:13:00 Test Item Value Reference Range Interpretation [...] (test code = 1+ few 965) POCT-GLUCOSE [id number] 12:54:00 Test Item Value Reference Range Interpretation Comments POC-GLUCOSE METER 146 mg/dL 70-110 H TESTED AT [facility] 6720 (BEAKER) (test code = [facility] 1538) [address] POCT-GLUCOSE [id number] 09:05:00 Test Item Value Reference Range Interpretation Comments POC-GLUCOSE METER 143 mg/dL 70-110 H TESTED AT [facility] 6720 (BEAKER) (test code = [facility] 1538) [address] [id number] 07:26:00 Test Item Value Reference Range Interpretation Comments MAGNESIUM (BEAKER) (test code = 1.8 mg/dL 1.6-2.6 627) BASIC METABOLIC [id number] 07:26:00 Test Item Value Reference Range Interpretation [...] APPLICABLE FOR DIALYSIS PATIEN TS. HEPATIC FUNCTION [id number] 07:26:00 Test Item Value Reference Range Interpretation [...] code = 25 U/L 6-55 347) CALCIUM, [id number] 07:09:00 Test Item Value Reference Range Interpretation Comments CALCIUM IONIZED (BEAKER) (test 1.08 mmol/L 1.12-1.27 L code = 698) PH, BLOOD (BEAKER) (test code = 7.52 1810) PROTHROMBIN [id number] 07:07:00 Test Item Value Reference Range Interpretation Comments PROTIME (BEAKER) (test code = 14.9 seconds 11.7-14.7 H 759) INR (BEAKER) (test code = 370) 1.2 <=5.9 RECOMMENDED COUMADIN/WARFARIN INR THERAPY RANGESSTANDARD DOSE: 2.0 - 3.0 Includes: PROPHYLAXIS for venous thrombosis, systemic embolization; TREATMENT for venous thrombosis and/or pulmonary embolus.HIGH RISK: Target INR is 2.5-3.5 for patients with mechanical heart valves.POCT-GLUCOSE [id number] 21:30:00 Test Item Value Reference Range Interpretation Comments POC-GLUCOSE METER 133 mg/dL 70-110 H TESTED AT [place] [address] ([facility]) (test code = GENEVIEVE Bruce [place] 1538) [address] POCT-GLUCOSE [id number] 17:52:00 Test Item Value Reference Range Interpretation Comments POC-GLUCOSE METER 270 mg/dL 70-110 H TESTED AT [place] [address] ([facility]) (test code = VIVEKFL Janis [place] 1538) [address] HEMOGLOBIN AND [id number] 16:27:00 Test Item Value Reference Range Interpretation Comments HEMOGLOBIN (BEAKER) (test code = 8.9 GM/DL 13.7-17.5 L 410) HEMATOCRIT (BEAKER) (test code = 27.7 % 40.1-51.0 L 411) POCT-GLUCOSE [id number] 08:55:00 Test Item Value Reference Range Interpretation Comments POC-GLUCOSE METER 132 mg/dL 70-110 H TESTED AT [facility] 6720 (BEAKER) (test code = GENEVIEVE Bruce [place] 1538) [address] POCT-GLUCOSE [id number] 08:49:00 Test Item Value Reference Range Interpretation Comments POC-GLUCOSE METER 131 mg/dL 70-110 H TESTED AT [facility] 6720 (BEAKER) (test code = [facility] Janis [place] 1538) [address] [id number] 04:20:00 Test Item Value Reference Range Interpretation Comments MAGNESIUM (BEAKER) (test code = 1.7 mg/dL 1.6-2.6 627) BASIC METABOLIC [id number] 04:20:00 Test Item Value Reference Range Interpretation [...] APPLICABLE FOR DIALYSIS PATIEN TS. HEPATIC FUNCTION [id number] 04:20:00 Test Item Value Reference Range Interpretation [...] 6-55 347) CBC W/PLT COUNT & AUTO [id number] 04:16:00 Test Item Value Reference Range Interpretation [...] 0-1 PERCENT (BEAKER) (test code = 2801) [id number] 04:06:00 Test Item Value Reference Range Interpretation [...] exclusion of thrombosis is within 95-100% range. [id number] 04:04:00 Test Item Value Reference Range Interpretation Comments FIBRINOGEN LEVEL (BEAKER) (test 426 mg/dl 225-434 code = 658) [id number] 04:04:00 Test Item Value Reference Range Interpretation [...] 2.5-3.5 for patients with mechanical heart valves.PLATELET [id number] 03:59:00 Test Item Value Reference Range Interpretation Comments PLATELET COUNT (BEAKER) (test 293 K/CU MM 150-450 code = 756) HEMOGLOBIN AND [id number] 03:59:00 Test Item Value Reference Range Interpretation Comments HEMOGLOBIN (BEAKER) (test code = 9.0 GM/DL 13.7-17.5 L 410) HEMATOCRIT (BEAKER) (test code = 28.6 % 40.1-51.0 L 411) POCT-GLUCOSE [id number] 22:54:00 Test Item Value Reference Range Interpretation Comments POC-GLUCOSE METER 169 mg/dL 70-110 H TESTED AT [facility] 6720 (BEAKER) (test code = GENEVIEVE Janis [facility] 1538) [address] POCT-GLUCOSE [id number] 17:50:00 Test Item Value Reference Range Interpretation Comments POC-GLUCOSE METER 162 mg/dL 70-110 H TESTED AT [facility] 6720 (BEAKER) (test code = GENEVIEVE Bruce [facility] 1538) [address] HEMOGLOBIN AND [id number] 12:54:00 Test Item Value Reference Range Interpretation Comments HEMOGLOBIN (BEAKER) (test code = 8.9 GM/DL 13.7-17.5 L 410) HEMATOCRIT (BEAKER) (test code = 28.0 % 40.1-51.0 L 411) [id number] 06:09:00 Test Item Value Reference Range Interpretation Comments MAGNESIUM (BEAKER) (test code = 1.4 mg/dL 1.6-2.6 L 627) BASIC METABOLIC [id number] 06:09:00 Test Item Value Reference Range Interpretation [...] APPLICABLE FOR DIALYSIS PATIEN TS. HEPATIC FUNCTION [id number] 06:09:00 Test Item Value Reference Range Interpretation [...] code = 26 U/L 6-55 347) PROTHROMBIN [id number] 06:03:00 Test Item Value Reference Range Interpretation [...] mechanical heart valves.CBC W/PLT COUNT & AUTO [id number] 05:43:00 Test Item Value Reference Range Interpretation [...] (BEAKER) (test code = 2801) HEMOGLOBIN AND [id number] 18:54:00 Test Item Value Reference Range Interpretation Comments HEMOGLOBIN (BEAKER) (test code = 9.9 GM/DL 13.7-17.5 L 410) HEMATOCRIT (BEAKER) (test code = 32.6 % 40.1-51.0 L 411) BLOOD [id number] 18:00:00 Test Item Value Reference Range Interpretation Comments CULTURE (BEAKER) (test No growth in 5 days code = 1095) HEMOGLOBIN AND [id number] 16:03:00 Test Item Value Reference Range Interpretation Comments HEMOGLOBIN (BEAKER) (test code = 9.4 GM/DL 13.7-17.5 L 410) HEMATOCRIT (BEAKER) (test code = 28.9 % 40.1-51.0 L 411) CBC W/PLT COUNT & AUTO [id number] 09:17:00 Test Item Value Reference Range Interpretation [...] PERCENT (BEAKER) (test code = 2801) PROTHROMBIN TIME/[id number] 08:38:00 Test Item Value Reference Range Interpretation Comments PROTIME (BEAKER) (test code = 14.7 seconds 11.7-14.7 759) INR (BEAKER) (test code = 370) 1.2 <=5.9 RECOMMENDED COUMADIN/WARFARIN INR THERAPY RANGESSTANDARD DOSE: 2.0 - 3.0 Includes: PROPHYLAXIS for venous thrombosis, systemic embolization; TREATMENT for venous thrombosis and/or pulmonary embolus.HIGH RISK: Target INR is 2.5-3.5 for patients with mechanical heart valves.BASIC METABOLIC [id number] 07:46:00 Test Item Value Reference Range Interpretation [...] NOT APPLICABLE FOR DIALYSIS PATIEN TS. PROTHROMBIN [id number] 06:45:00 Test Item Value Reference Range Interpretation Comments PROTIME (BEAKER) (test code = 14.5 seconds 11.7-14.7 759) INR (BEAKER) (test code = 370) 1.1 <=5.9 RECOMMENDED COUMADIN/WARFARIN INR THERAPY RANGESSTANDARD DOSE: 2.0 - 3.0 Includes: PROPHYLAXIS for venous thrombosis, systemic embolization; TREATMENT for venous thrombosis and/or pulmonary embolus.HIGH RISK: Target INR is 2.5-3.5 for patients with mechanical heart valves.[id number] 05:11:00 Test Item Value Reference Range Interpretation Comments MAGNESIUM (BEAKER) 1.8 mg/dL 1.6-2.6 Specimen moderately (test code = 627) hemolyzed HEPATIC FUNCTION [id number] 05:11:00 Test Item Value Reference Range Interpretation [...] Specimen moderately (test code = 347) hemolyzed [id number] 06:06:00 Test Item Value Reference Range Interpretation Comments MAGNESIUM (BEAKER) (test code = 1.6 mg/dL 1.6-2.6 627) BASIC METABOLIC [id number] 06:06:00 Test Item Value Reference Range Interpretation [...] APPLICABLE FOR DIALYSIS PATIEN TS. HEPATIC FUNCTION [id number] 06:06:00 Test Item Value Reference Range Interpretation [...] code = 22 U/L 6-55 347) PROTHROMBIN [id number] 05:51:00 Test Item Value Reference Range Interpretation [...] mechanical heart valves.CBC W/PLT COUNT & AUTO [id number] 05:48:00 Test Item Value Reference Range Interpretation [...] (BEAKER) (test code = 2801) HEMOGLOBIN AND [id number] 00:16:00 Test Item Value Reference Range Interpretation Comments HEMOGLOBIN (BEAKER) (test code = 8.8 GM/DL 13.7-17.5 L 410) HEMATOCRIT (BEAKER) (test code = 27.1 % 40.1-51.0 L 411) HEMOGLOBIN AND [id number] 17:32:00 Test Item Value Reference Range Interpretation Comments HEMOGLOBIN (BEAKER) (test code = 8.8 GM/DL 13.7-17.5 L 410) HEMATOCRIT (BEAKER) (test code = 27.5 % 40.1-51.0 L 411) RAD, CHEST, 1 VIEW, NON [id number] 10:38:00Reason for exam:->HFShould this be performed at [...] MDReport Verified Date/Time: 07/18/2018 10:38:16 Reading Location: [facility] Radiology Reading Room HEMOGLOBIN AND [id number] 10:12:00 Test Item Value Reference Range Interpretation Comments HEMOGLOBIN (BEAKER) (test code = 7.8 GM/DL 13.7-17.5 L 410) HEMATOCRIT (BEAKER) (test code = 24.5 % 40.1-51.0 L 411) [id number] 04:04:00 Test Item Value Reference Range Interpretation Comments MAGNESIUM (BEAKER) (test code = 1.9 mg/dL 1.6-2.6 627) BASIC METABOLIC [id number] 04:04:00 Test Item Value Reference Range Interpretation [...] APPLICABLE FOR DIALYSIS PATIEN TS. HEPATIC FUNCTION [id number] 04:04:00 Test Item Value Reference Range Interpretation [...] code = 22 U/L 6-55 347) PROTHROMBIN TIME/[id number] 04:00:00 Test Item Value Reference Range Interpretation [...] mechanical heart valves.CBC W/PLT COUNT & AUTO [id number] 03:46:00 Test Item Value Reference Range Interpretation [...] (BEAKER) (test code = 2801) HEMOGLOBIN AND [id number] 00:32:00 Test Item Value Reference Range Interpretation Comments HEMOGLOBIN (BEAKER) (test code = 9.0 GM/DL 13.7-17.5 L 410) HEMATOCRIT (BEAKER) (test code = 27.8 % 40.1-51.0 L 411) [id number] 18:36:00 Test Item Value Reference Range Interpretation Comments MAGNESIUM (BEAKER) 2.2 mg/dL 1.6-2.6 Specimen slightly (test code = 627) hemolyzed [id number] 18:36:00 Test Item Value Reference Range Interpretation Comments POTASSIUM (BEAKER) 4.3 meq/L 3.5-5.1 Specimen slightly (test code = 379) hemolyzed FL, [id number] 18:08:00INTRA OP IMAGINGReason for exam:->abnormal imaging FINAL REPORT ERCP 1 view 07/17/2018 6:06 PM CLINICAL HISTORY: Instrument localization COMPARISON: None available IMPRESSION: Please correlate imaging report findings with the procedure note prepared by Dr. Santacruz, as an intra-procedure imaging consultation was not requested. Reported fluoroscopy time: 233.8 seconds. Signed: Farhad Meza Verified Date/Time: 07/17/2018 18:08:25 Reading Location: [facility] Radiology Reading Room GLOBIN AND [id number] 18:03:00 Test Item Value Reference Range Interpretation Comments HEMOGLOBIN (BEAKER) (test code = 9.2 GM/DL 13.7-17.5 L 410) HEMATOCRIT (BEAKER) (test code = 28.1 % 40.1-51.0 L 411) [id number] 09:33:00 Test Item Value Reference Range Interpretation Comments POTASSIUM (BEAKER) (test code = 3.4 meq/L 3.5-5.1 L 379) [id number] 09:33:00 Test Item Value Reference Range Interpretation Comments MAGNESIUM (BEAKER) (test code = 2.0 mg/dL 1.6-2.6 627) HEMOGLOBIN AND [id number] 09:20:00 Test Item Value Reference Range Interpretation Comments HEMOGLOBIN (BEAKER) (test code = 8.9 GM/DL 13.7-17.5 L 410) HEMATOCRIT (BEAKER) (test code = 26.9 % 40.1-51.0 L 411) PROTHROMBIN [id number] 06:45:00 Test Item Value Reference Range Interpretation Comments PROTIME (BEAKER) (test code = 16.9 seconds 11.7-14.7 H 759) INR (BEAKER) (test code = 370) 1.4 <=5.9 RECOMMENDED COUMADIN/WARFARIN INR THERAPY RANGESSTANDARD DOSE: 2.0 - 3.0 Includes: PROPHYLAXIS for venous thrombosis, systemic embolization; TREATMENT for venous thrombosis and/or pulmonary embolus.HIGH RISK: Target INR is 2.5-3.5 for patients with mechanical heart valves.BASIC METABOLIC [id number] 03:44:00 Test Item Value Reference Range Interpretation [...] S NOT APPLICABLE FOR DIALYSIS PATIEN CASSIE. [id number] 03:36:00 Test Item Value Reference Range Interpretation Comments MAGNESIUM (BEAKER) (test code = 2.3 mg/dL 1.6-2.6 627) HEPATIC FUNCTION [id number] 03:36:00 Test Item Value Reference Range Interpretation [...] 6-55 347) CBC W/PLT COUNT & AUTO [id number] 03:08:00 Test Item Value Reference Range Interpretation [...] (BEAKER) (test code = 2801) HEMOGLOBIN AND [id number] 00:43:00 Test Item Value Reference Range Interpretation Comments HEMOGLOBIN (BEAKER) (test code = 9.2 GM/DL 13.7-17.5 L 410) HEMATOCRIT (BEAKER) (test code = 27.6 % 40.1-51.0 L 411) [id number] 20:56:00 Test Item Value Reference Range Interpretation Comments POTASSIUM (BEAKER) (test code = 3.0 meq/L 3.5-5.1 L 379) [id number] 20:56:00 Test Item Value Reference Range Interpretation Comments MAGNESIUM (BEAKER) (test code = 1.7 mg/dL 1.6-2.6 627) HEMOGLOBIN AND [id number] 17:08:00 Test Item Value Reference Range Interpretation Comments HEMOGLOBIN (BEAKER) (test code = 9.3 GM/DL 13.7-17.5 L 410) HEMATOCRIT (BEAKER) (test code = 28.2 % 40.1-51.0 L 411) [id number] 08:36:00 Test Item Value Reference Range Interpretation Comments PHOSPHORUS (BEAKER) (test code = 2.9 mg/dL 2.3-4.7 604) HEMOGLOBIN AND [id number] 08:18:00 Test Item Value Reference Range Interpretation Comments HEMOGLOBIN (BEAKER) (test code = 8.7 GM/DL 13.7-17.5 L 410) HEMATOCRIT (BEAKER) (test code = 25.7 % 40.1-51.0 L 411) BASIC METABOLIC [id number] 05:58:00 Test Item Value Reference Range Interpretation [...] S NOT APPLICABLE FOR DIALYSIS PATIEN TS. [id number] 04:58:00 Test Item Value Reference Range Interpretation Comments MAGNESIUM (BEAKER) (test code = 1.3 mg/dL 1.6-2.6 L 627) HEPATIC FUNCTION [id number] 04:58:00 Test Item Value Reference Range Interpretation [...] (test code = 20 U/L 6-55 347) [id number] 04:40:00 Test Item Value Reference Range Interpretation [...] of thrombosis is within 95-100% range. PROTHROMBIN TIME/[id number] 04:37:00 Test Item Value Reference Range Interpretation [...] mechanical heart valves.CBC W/PLT COUNT & AUTO [id number] 04:33:00 Test Item Value Reference Range Interpretation [...] PERCENT (BEAKER) (test code = 2801) CALCIUM, [id number] 04:29:00 Test Item Value Reference Range Interpretation Comments CALCIUM IONIZED (BEAKER) (test 1.13 mmol/L 1.12-1.27 code = 698) PH, BLOOD (BEAKER) (test code = 7.42 1810) HEMOGLOBIN AND [id number] 04:29:00 Test Item Value Reference Range Interpretation Comments HEMOGLOBIN (BEAKER) (test code = 8.6 GM/DL 13.7-17.5 L 410) HEMATOCRIT (BEAKER) (test code = 25.4 % 40.1-51.0 L 411) POCT-GLUCOSE [id number] 04:18:00 Test Item Value Reference Range Interpretation Comments POC-GLUCOSE METER 116 mg/dL 70-110 H TESTED AT [place] [address] (BEAKER) (test [facility] = [facility] 1538) [address] HEMOGLOBIN AND [id number] 00:35:00 Test Item Value Reference Range Interpretation Comments HEMOGLOBIN (BEAKER) (test code = 8.7 GM/DL 13.7-17.5 L 410) HEMATOCRIT (BEAKER) (test code = 25.9 % 40.1-51.0 L 411) POCT-GLUCOSE [id number] 22:40:00 Test Item Value Reference Range Interpretation Comments POC-GLUCOSE METER 112 mg/dL 70-110 H TESTED AT [place] [address] (BEAKER) (test code = [facility] 1538) [address] HEMOGLOBIN AND [id number] 19:57:00 Test Item Value Reference Range Interpretation Comments HEMOGLOBIN (BEAKER) (test code = 9.1 GM/DL 13.7-17.5 L 410) HEMATOCRIT (BEAKER) (test code = 26.2 % 40.1-51.0 L 411) POCT-GLUCOSE [id number] 17:38:00 Test Item Value Reference Range Interpretation Comments POC-GLUCOSE METER 151 mg/dL 70-110 H TESTED AT [place] [address] (BEAKER) (test code = [facility] 1538) [address] [id number] 17:13:00 Test Item Value Reference Range Interpretation Comments POTASSIUM (BEAKER) (test code = 3.7 meq/L 3.5-5.1 379) HEMOGLOBIN AND [id number] 16:43:00 Test Item Value Reference Range Interpretation Comments HEMOGLOBIN (BEAKER) (test code = 9.2 GM/DL 13.7-17.5 L 410) HEMATOCRIT (BEAKER) (test code = 26.8 % 40.1-51.0 L 411) CBC W/PLT COUNT & AUTO [id number] 13:38:00 Test Item Value Reference Range Interpretation [...] TS. Specimen slightly ictericLACTIC ACID, ARTERIAL, WHOLE [id number] 13:21:00 Test Item Value Reference Range Interpretation Comments LACTATE BLOOD ARTERIAL (2) 0.8 mmol/L 0.5-2.2 (BEAKER) (test code = 2874) Effective 02/25/2016: Units/Reference Range ChangeNew: 0.5-2.2 mmol/L Previous: 5- 20 mg/dLSpecimen slightly ictericCALCIUM, [id number] 13:06:00 Test Item Value Reference Range Interpretation Comments CALCIUM IONIZED (BEAKER) (test 1.07 mmol/L 1.12-1.27 L code = 698) PH, BLOOD (BEAKER) (test code = 7.44 1810) PLATELET [id number] 13:01:00 Test Item Value Reference Range Interpretation Comments PLATELET COUNT (BEAKER) (test 138 K/CU MM 150-450 L code = 756) HEMOGLOBIN AND [id number] 13:01:00 Test Item Value Reference Range Interpretation Comments HEMOGLOBIN (BEAKER) (test code = 9.4 GM/DL 13.7-17.5 L 410) HEMATOCRIT (BEAKER) (test code = 27.7 % 40.1-51.0 L 411) POCT-GLUCOSE [id number] 12:02:00 Test Item Value Reference Range Interpretation Comments POC-GLUCOSE METER 175 mg/dL 70-110 H TESTED AT [facility] 6720 (BEAKER) (test code = [place] 1538) [address] LACTIC ACID, VENOUS, WHOLE [id number] 11:44:00 Test Item Value Reference Range Interpretation Comments LACTATE BLOOD VENOUS (2) (BEAKER) 0.9 mmol/L 0.5-2.2 (test code = 2872) Effective 02/25/2016: Units/Reference Range ChangeNew: 0.5-2.2 mmol/L Previous: 5- 20 mg/dLLACTIC ACID, VENOUS, WHOLE [id number] 10:20:00 Test Item Value Reference Range Interpretation Comments LACTATE BLOOD VENOUS (2) (BEAKER) 0.9 mmol/L 0.5-2.2 (test code = 2872) Effective 02/25/2016: Units/Reference Range ChangeNew: 0.5-2.2 mmol/L Previous: 5- 20 mg/xDW-[id number] 10:00:00 Test Item Value Reference Range Interpretation [...] exclusion of thrombosis is within 95-100% range. PT/[id number] 09:58:00 Test Item Value Reference Range Interpretation [...] is 2.5-3.5 for patients with mechanical heart valves.[id number] 09:58:00 Test Item Value Reference Range Interpretation Comments FIBRINOGEN LEVEL (BEAKER) (test 151 mg/dl 225-434 L code = 658) CALCIUM, [id number] 09:31:00 Test Item Value Reference Range Interpretation Comments CALCIUM IONIZED (BEAKER) (test 1.09 mmol/L 1.12-1.27 L code = 698) PH, BLOOD (BEAKER) (test code = 7.45 1810) CBC W/PLT COUNT & AUTO [id number] 08:51:00 Test Item Value Reference Range Interpretation [...] Adequate (CELLAVISION)(BEAKER) (test code = 3438) PROTHROMBIN [id number] 08:06:00 Test Item Value Reference Range Interpretation Comments PROTIME (BEAKER) (test code = 17.3 seconds 11.7-14.7 H 759) INR (BEAKER) (test code = 370) 1.4 <=5.9 RECOMMENDED COUMADIN/WARFARIN INR THERAPY RANGESSTANDARD DOSE: 2.0 - 3.0 Includes: PROPHYLAXIS for venous thrombosis, systemic embolization; TREATMENT for venous thrombosis and/or pulmonary embolus.HIGH RISK: Target INR is 2.5-3.5 for patients with mechanical heart valves.[id number] 08:06:00 Test Item Value Reference Range Interpretation [...] is 2.5-3.5 for patients with mechanical heart valves.[id number] 08:06:00 Test Item Value Reference Range Interpretation Comments FIBRINOGEN LEVEL (BEAKER) (test 153 mg/dl 225-434 L code = 658) [id number] 08:06:00 Test Item Value Reference Range Interpretation [...] of thrombosis is within 95-100% range.BLOOD GAS, [id number] 07:07:00 Test Item Value Reference Range Interpretation [...] (BEAKER) (test code = 1819) 100 CALCIUM, [id number] 07:07:00 Test Item Value Reference Range Interpretation Comments CALCIUM IONIZED (BEAKER) (test 1.08 mmol/L 1.12-1.27 L code = 698) PH, BLOOD (BEAKER) (test code = 7.48 1810) CALCIUM, [id number] 07:06:00 Test Item Value Reference Range Interpretation Comments CALCIUM IONIZED (BEAKER) (test 1.07 mmol/L 1.12-1.27 L code = 698) PH, BLOOD (BEAKER) (test code = 7.44 1810) [id number] 06:52:00 Test Item Value Reference Range Interpretation Comments MAGNESIUM (BEAKER) (test code = 1.5 mg/dL 1.6-2.6 L 627) [id number] 06:52:00 Test Item Value Reference Range Interpretation Comments POTASSIUM (BEAKER) (test code = 3.3 meq/L 3.5-5.1 L 379) [id number] 06:52:00 Test Item Value Reference Range Interpretation Comments SODIUM (BEAKER) (test code = 381) 142 meq/L 136-145 HEPATIC FUNCTION [id number] 06:52:00 Test Item Value Reference Range Interpretation [...] 0.4 % 0.0-5.0 code = 1414) PLATELET [id number] 05:34:00 Test Item Value Reference Range Interpretation Comments PLATELET COUNT (BEAKER) (test 146 K/CU MM 150-450 L code = 756) HEMOGLOBIN AND [id number] 05:34:00 Test Item Value Reference Range Interpretation Comments HEMOGLOBIN (BEAKER) (test code = 7.3 GM/DL 13.7-17.5 L 410) HEMATOCRIT (BEAKER) (test code = 22.2 % 40.1-51.0 L 411) CALCIUM, [id number] 05:26:00 Test Item Value Reference Range Interpretation Comments CALCIUM IONIZED (BEAKER) (test 0.96 mmol/L 1.12-1.27 L code = 698) PH, BLOOD (BEAKER) (test code = 7.40 1810) RAD, CHEST, 1 VIEW, NON [id number] 05:09:00Reason for exam:->check ET placementShould this be [...] MDReport Verified Date/Time: 07/15/2018 05:09:29 Reading Location: [place] [id number] [place] Body Reading Room -[id number] 04:55:00 Test Item Value Reference Range Interpretation [...] thrombosis is within 95-100% range.POCT- BLOOD GASES, [id number] 04:54:00 Test Item Value Reference Range Interpretation Comments TEMP, CELSIUS-POC 36.8 (BEAKER) (test code = 1834) FIO2-POC (BEAKER) 100 TESTED AT [facility] 6720 (test code = 1835) [facility] [address] PH, ARTERIAL-POC 7.424 7.350-7.450 (BEAKER) (test code [...] -2.0-3.0 ARTERIAL-POC (BEAKER) (test code = 1841) [id number] 04:54:00 Test Item Value Reference Range Interpretation Comments POC-SODIUM ([facility]) 144 meq/L 135-148 TESTED [place] [address] (test code = 1542) [facility] [address] [id number] 04:54:00 Test Item Value Reference Range Interpretation Comments POC-POTASSIUM 3.2 meq/L 3.6-5.5 L TESTED AT [place] [address] ([facility]) (test code [place] [id number] = 1540) [id number] 04:54:00 Test Item Value Reference Range Interpretation Comments POC-GLUCOSE ([facility]) 170 mg/dL 70-110 H TESTED AT [place] [address] (test code = 1855) [facility] [address] POCT-CALCIUM [id number] 04:54:00 Test Item Value Reference Range Interpretation Comments POC-CALCIUM IONIZED 1.09 mmol/L 1.12-1.27 L TESTED [place] [address] ([facility]) (test code = [facility] 1537) [address] [id number]-[id number] 04:54:00 Test Item Value Reference Range Interpretation Comments POC-HEMATOCRIT 22 % 40-50 L TESTED AT [place] [address] ([facility]) (test code = [facility] [address] 1520) [id number] 04:54:00 Test Item Value Reference Range Interpretation Comments POC-HEMOGLOBIN 7.5 g/dL 13.0-16.8 L TESTED AT [place] [address] ([facility]) (test code = [facility] 1858) [address]GEBGSL AT [place] [address] [facility] [address] PT/[id number] 04:53:00 Test Item Value Reference Range Interpretation Comments PROTIME ([facility]) (test code = 18.4 seconds 11.7-14.7 H 759) INR ([facility]) (test code = 370) 1.5 <=5.9 PARTIAL THROMBOPLASTIN TIME 33.3 seconds 22.5-36.0 ([facility]) (test code = 760) RECOMMENDED COUMADIN/WARFARIN INR THERAPY RANGESSTANDARD DOSE: 2.0 - 3.0 Includes: PROPHYLAXIS for venous thrombosis, systemic embolization; TREATMENT for venous thrombosis and/or pulmonary embolus.HIGH RISK: Target INR is 2.5-3.5 for patients with mechanical heart valves.[id number] 04:53:00 Test Item Value Reference Range Interpretation Comments FIBRINOGEN LEVEL (BEAKER) (test 164 mg/dl 225-434 L code = 658) HEMOGLOBIN AND [id number] 04:12:00 Test Item Value Reference Range Interpretation Comments HEMOGLOBIN (BEAKER) (test code = 7.3 GM/DL 13.7-17.5 L 410) HEMATOCRIT (BEAKER) (test code = 22.3 % 40.1-51.0 L 411) POCT-BLOOD GASES, [id number] 03:58:00 Test Item Value Reference Range Interpretation Comments TEMP, CELSIUS-POC 36.8 (BEAKER) (test code = 1834) FIO2-POC (BEAKER) 32 TESTED AT [place] [address] (test code = 1835) [facility] [place] [address] PH, ARTERIAL-POC 7.426 7.350-7.450 (BEAKER) (test code [...] -2.0-3.0 ARTERIAL-POC (BEAKER) (test code = 1841) [id number] 03:58:00 Test Item Value Reference Range Interpretation Comments POC-SODIUM (BEAKER) 143 meq/L 135-148 TESTED [place] [address] (test code = 1542) [facility] [facility] [place] [address] [id number] 03:58:00 Test Item Value Reference Range Interpretation Comments POC-POTASSIUM 4.3 meq/L 3.6-5.5 TESTED AT [place] [address] ([facility]) (test [facility] [address] = 1540) [id number] 03:58:00 Test Item Value Reference Range Interpretation Comments POC-GLUCOSE ([facility]) 178 mg/dL 70-110 H TESTED AT [place] [address] (test code = 1855) [place] [address] POCT-CALCIUM [id number] 03:58:00 Test Item Value Reference Range Interpretation Comments POC-CALCIUM IONIZED 0.95 mmol/L 1.12-1.27 L TESTED [place] [address] ([facility]) (test code = [place] 1536) [address] [id number] 03:58:00 Test Item Value Reference Range Interpretation Comments POC-HEMATOCRIT 17 % 40-50 L TESTED AT [place] [address] ([facility]) (test code = [facility] Janis [facility] [address] 1857) [id number] 03:58:00 Test Item Value Reference Range Interpretation Comments POC-HEMOGLOBIN 5.8 g/dL 13.0-16.8 LL TESTED AT [place] [address] ([facility]) (test code = VIVEKFL Janis [facility] 1856) [address]POGQBF AT [place] [address] [place] [address] PT/[id number] 03:23:00 Test Item Value Reference Range Interpretation Comments PROTIME ([facility]) (test code = 17.2 seconds 11.7-14.7 H 759) INR ([facility]) (test code = 370) 1.4 <=5.9 PARTIAL THROMBOPLASTIN TIME 32.7 seconds 22.5-36.0 ([facility]) (test code = 760) RECOMMENDED COUMADIN/WARFARIN INR THERAPY RANGESSTANDARD DOSE: 2.0 - 3.0 Includes: PROPHYLAXIS for venous thrombosis, systemic embolization; TREATMENT for venous thrombosis and/or pulmonary embolus.HIGH RISK: Target INR is 2.5-3.5 for patients with mechanical heart valves.PROTHROMBIN [id number] 03:22:00 Test Item Value Reference Range Interpretation Comments PROTIME (BEAKER) (test code = 17.2 seconds 11.7-14.7 H 759) INR ([facility]) (test code = 370) 1.4 <=5.9 RECOMMENDED COUMADIN/WARFARIN INR THERAPY RANGESSTANDARD DOSE: 2.0 - 3.0 Includes: PROPHYLAXIS for venous thrombosis, systemic embolization; TREATMENT for venous thrombosis and/or pulmonary embolus.HIGH RISK: Target INR is 2.5-3.5 for patients with mechanical heart valves.BASIC METABOLIC [id number] 02:56:00 Test Item Value Reference Range Interpretation [...] APPLICABLE FOR DIALYSIS PATIEN TS. POCT-BLOOD GASES, [id number] 02:24:00 Test Item Value Reference Range Interpretation Comments TEMP, CELSIUS-POC 36.1 (BEAKER) (test code = 1834) FIO2-POC (BEAKER) 32 TESTED AT [facility] 6720 (test code = 1835) [facility] [place] [address] PH, VENOUS-POC 7.432 7.320-7.420 H (BEAKER) (test code = 1842) PCO2, VENOUS-POC 46.6 mm Hg 41.0-51.0 (BEAKER) (test code = 1843) PO2, VENOUS-POC 27.0 mm Hg 25.0-40.0 (BEAKER) (test code = 1844) SO2, VENOUS-POC 54.0 % 40.0-70.0 (BEAKER) (test code = 1845) HCO3, VENOUS-POC 31.3 meq/L 21.0-29.0 H ([facility]) (test code = 1846) BASE EXCESS, 7.0 meq/L -2.0-3.0 H VENOUS-POC ([facility]) (test code = 1847) [id number] 02:24:00 Test Item Value Reference Range Interpretation Comments POC-SODIUM ([facility]) 143 meq/L 135-148 TESTED A T [place] [address] (test code = 1542) [facility] [address] [id number] 02:24:00 Test Item Value Reference Range Interpretation Comments POC-POTASSIUM 3.1 meq/L 3.6-5.5 L TESTED AT [place] [address] ([facility]) (test code [facility] [address] = 1540) [id number] 02:24:00 Test Item Value Reference Range Interpretation Comments POC-GLUCOSE ([facility]) 134 mg/dL 70-110 H TESTED AT [place] [address] (test code = 1855) [facility] [address] POCT-CALCIUM [id number] 02:24:00 Test Item Value Reference Range Interpretation Comments POC-CALCIUM IONIZED 1.20 mmol/L 1.12-1.27 TESTED [place] T [place] [address] ([facility]) (test code = [facility] 1536) [address] [id number] 02:24:00 Test Item Value Reference Range Interpretation Comments POC-HEMATOCRIT 18 % 40-50 L TESTED AT [place] [address] ([facility]) (test code = [facility] [address] 6717) [id number] 02:24:00 Test Item Value Reference Range Interpretation Comments POC-HEMOGLOBIN 6.1 g/dL 13.0-16.8 L TESTED AT [place] [address] ([facility]) (test code = [facility] Janis [facility] 1856) [id number] AT [place] [address] [facility] [address] POCT-GLUCOSE [id number] 20:58:00 Test Item Value Reference Range Interpretation Comments POC-GLUCOSE METER 196 mg/dL 70-110 H TESTED AT [place] [address] ([facility]) (test code = [facility] 1538) [address] POCT-GLUCOSE [id number] 17:05:00 Test Item Value Reference Range Interpretation Comments POC-GLUCOSE METER 236 mg/dL 70-110 H TESTED AT [facility] 6720 (BEAKER) (test code = GENEVIEVE Bruce [facility] 1538) [address] POCT-GLUCOSE [id number] 12:04:00 Test Item Value Reference Range Interpretation Comments POC-GLUCOSE METER 115 mg/dL 70-110 H TESTED AT [facility] 6720 (BEAKER) (test code = GENEVIEVE Bruce [facility] 1538) [address] RAD, CHEST, 1 VIEW, NON [id number] 10:09:00Reason for exam:->to assess for consolidation, pleural effusions, pulmonary edemaShould this be performed at the bedside?->YesFINAL REPORT Chest one view compared to July 09 Discussion: Mild interstitial congestion. No effusion or pneumothorax. Right IJ line in place. Signed: Felicitas Riveraepchula Verified Date/Time: 07/14/2018 10:09:51 Reading Location: [facility] Radiology Reading Room BASIC METABOLIC [id number] 08:26:00 Test Item Value Reference Range Interpretation [...] APPLICABLE FOR DIALYSIS PATIEN TS. BLOOD GAS, [id number] 08:09:00 Test Item Value Reference Range Interpretation [...] code = 1819) 36.0 % HEMOGLOBIN AND [id number] 08:07:00 Test Item Value Reference Range Interpretation Comments HEMOGLOBIN (BEAKER) (test code = 7.8 GM/DL 13.7-17.5 L 410) HEMATOCRIT (BEAKER) (test code = 24.4 % 40.1-51.0 L 411) POCT-GLUCOSE [id number] 06:12:00 Test Item Value Reference Range Interpretation Comments POC-GLUCOSE METER 95 mg/dL 70-110 TESTED AT [facility] 6720 (BEAKER) (test code = [place] [address] 1538) OXYGEN SATURATION, [id number] 05:31:00 Test Item Value Reference Range Interpretation Comments O2 SATURATION (MEASURED) (BEAKER) 97.9 % (test code = 1455) Obtain from CVP portVANCOMYCIN LEVEL, [id number] 05:18:00 Test Item Value Reference Range Interpretation Comments VANCOMYCIN RANDOM (BEAKER) (test 20.5 ug/mL code = 523) Reference Range: No NormalsBLOOD GAS, [id number] 05:01:00 Test Item Value Reference Range Interpretation [...] (BEAKER) (test code = 1819) 32.0 % [id number] 04:55:00 Test Item Value Reference Range Interpretation Comments MAGNESIUM (BEAKER) (test code = 1.9 mg/dL 1.6-2.6 627) BASIC METABOLIC [id number] 04:55:00 Test Item Value Reference Range Interpretation [...] APPLICABLE FOR DIALYSIS PATIEN TS. HEPATIC FUNCTION [id number] 04:55:00 Test Item Value Reference Range Interpretation [...] code = 35 U/L 6-55 347) PROTHROMBIN [id number] 04:28:00 Test Item Value Reference Range Interpretation Comments PROTIME (BEAKER) (test code = 17.3 seconds 11.7-14.7 H 759) INR (BEAKER) (test code = 370) 1.4 <=5.9 RECOMMENDED COUMADIN/WARFARIN INR THERAPY RANGESSTANDARD DOSE: 2.0 - 3.0 Includes: PROPHYLAXIS for venous thrombosis, systemic embolization; TREATMENT for venous thrombosis and/or pulmonary embolus.HIGH RISK: Target INR is 2.5-3.5 for patients with mechanical heart valves.HEMOGLOBIN AND [id number] 04:22:00 Test Item Value Reference Range Interpretation Comments HEMOGLOBIN (BEAKER) (test code = 8.2 GM/DL 13.7-17.5 L 410) HEMATOCRIT (BEAKER) (test code = 25.7 % 40.1-51.0 L 411) POCT-GLUCOSE [id number] 00:22:00 Test Item Value Reference Range Interpretation Comments POC-GLUCOSE METER 96 mg/dL 70-110 TESTED AT [place] [address] ([facility]) (test code = [facility] [address] 1538) HEMOGLOBIN AND [id number] 21:02:00 Test Item Value Reference Range Interpretation Comments HEMOGLOBIN (BEAKER) (test code = 8.5 GM/DL 13.7-17.5 L 410) HEMATOCRIT (BEAKER) (test code = 26.1 % 40.1-51.0 L 411) POCT-GLUCOSE [id number] 17:53:00 Test Item Value Reference Range Interpretation Comments POC-GLUCOSE METER 123 mg/dL 70-110 H TESTED AT [place] [address] ([facility]) (test code = [facility] 1538) [address] [id number] 16:37:00 Test Item Value Reference Range Interpretation Comments MAGNESIUM (BEAKER) (test code = 2.1 mg/dL 1.6-2.6 627) BASIC METABOLIC [id number] 16:37:00 Test Item Value Reference Range Interpretation [...] APPLICABLE FOR DIALYSIS PATIEN TS. HEPATITIS B [id number] 13:03:00 Test Item Value Reference Range Interpretation Comments HEPATITIS B CORE TOTAL ANTIBODY Nonreactive Nonreactive (BEAKER) (test code = 497) HEPATITIS B SURFACE ANTIBODY 14.4 mIU/mL <8.0 H (BEAKER) (test code = 647) HEPATITIS B SURFACE ANTIGEN (2) Nonreactive Nonreactive (BEAKER) (test code = 2585) POCT-GLUCOSE [id number] 12:24:00 Test Item Value Reference Range Interpretation Comments POC-GLUCOSE METER 123 mg/dL 70-110 H TESTED AT [facility] 6720 (BEAKER) (test code = [place] 1538) [address] HEMOGLOBIN AND [id number] 12:07:00 Test Item Value Reference Range Interpretation Comments HEMOGLOBIN (BEAKER) (test code = 8.1 GM/DL 13.7-17.5 L 410) HEMATOCRIT (BEAKER) (test code = 25.2 % 40.1-51.0 L 411) BLOOD GAS, [id number] 09:34:00 Test Item Value Reference Range Interpretation [...] (test code = 1819) 21.0 % POCT-GLUCOSE [id number] 06:31:00 Test Item Value Reference Range Interpretation Comments POC-GLUCOSE METER 123 mg/dL 70-110 H TESTED AT [facility] 6720 (BEAKER) (test code = GENEVIEVE [place] 1538) [address] CALCIUM, [id number] 04:56:00 Test Item Value Reference Range Interpretation Comments CALCIUM IONIZED (BEAKER) (test 1.17 mmol/L 1.12-1.27 code = 698) PH, BLOOD (BEAKER) (test code = 7.41 1810) OXYGEN SATURATION, [id number] 04:55:00 Test Item Value Reference Range Interpretation Comments O2 SATURATION (MEASURED) (BEAKER) 84.2 % (test code = 1455) Obtain from CVP [id number] 04:31:00 Test Item Value Reference Range Interpretation Comments POTASSIUM (BEAKER) (test code = 3.9 meq/L 3.5-5.1 379) [id number] 04:31:00 Test Item Value Reference Range Interpretation Comments MAGNESIUM (BEAKER) (test code = 2.2 mg/dL 1.6-2.6 627) [id number] 04:31:00 Test Item Value Reference Range Interpretation Comments SODIUM (BEAKER) (test code = 381) 140 meq/L 136-145 HEPATIC FUNCTION [id number] 04:31:00 Test Item Value Reference Range Interpretation [...] code = 32 U/L 6-55 347) PROTHROMBIN [id number] 04:24:00 Test Item Value Reference Range Interpretation [...] mechanical heart valves.CBC W/PLT COUNT & AUTO [id number] 04:14:00 Test Item Value Reference Range Interpretation [...] H PERCENT (BEAKER) (test code = 2801) [id number] 02:44:00 Test Item Value Reference Range Interpretation Comments POTASSIUM (BEAKER) (test code = 3.4 meq/L 3.5-5.1 L 379) HEMOGLOBIN AND [id number] 02:33:00 Test Item Value Reference Range Interpretation Comments HEMOGLOBIN (BEAKER) (test code = 8.3 GM/DL 13.7-17.5 L 410) HEMATOCRIT (BEAKER) (test code = 25.6 % 40.1-51.0 L 411) POCT-GLUCOSE [id number] 00:56:00 Test Item Value Reference Range Interpretation Comments POC-GLUCOSE METER 104 mg/dL 70-110 TESTED AT [facility] 6720 (BEAKER) (test code = GENEVIEVE [place] 1537) [address] BASIC METABOLIC [id number] 23:41:00 Test Item Value Reference Range Interpretation [...] S NOT APPLICABLE FOR DIALYSIS PATILIZ TS. [id number] 18:36:00 Test Item Value Reference Range Interpretation Comments POTASSIUM (BEAKER) (test code = 3.9 meq/L 3.5-5.1 379) [id number] 18:36:00 Test Item Value Reference Range Interpretation Comments MAGNESIUM (BEAKER) (test code = 1.9 mg/dL 1.6-2.6 627) [id number] 18:36:00 Test Item Value Reference Range Interpretation Comments PHOSPHORUS (BEAKER) (test code = 3.5 mg/dL 2.3-4.7 604) [id number] 18:36:00 Test Item Value Reference Range Interpretation Comments SODIUM (BEAKER) (test code = 381) 139 meq/L 136-145 BASIC METABOLIC [id number] 18:36:00 Test Item Value Reference Range Interpretation [...] NOT APPLICABLE FOR DIALYSIS PATIEN TS. PH, [id number] 18:28:00 Test Item Value Reference Range Interpretation Comments PH ARTERIAL (BEAKER) (test code = 383) 7.44 7.35-7.45 CALCIUM, [id number] 18:28:00 Test Item Value Reference Range Interpretation Comments CALCIUM IONIZED (BEAKER) (test 1.16 mmol/L 1.12-1.27 code = 698) PH, BLOOD (BEAKER) (test code = 7.44 1810) HEMOGLOBIN AND [id number] 18:21:00 Test Item Value Reference Range Interpretation Comments HEMOGLOBIN (BEAKER) (test code = 8.6 GM/DL 13.7-17.5 L 410) HEMATOCRIT (BEAKER) (test code = 26.2 % 40.1-51.0 L 411) POCT-GLUCOSE [id number] 17:47:00 Test Item Value Reference Range Interpretation Comments POC-GLUCOSE METER 114 mg/dL 70-110 H TESTED AT [facility] 6720 ([facility]) (test code = GENEVIEVE [place] 1538) [address] [id number] 14:40:00 Test Item Value Reference Range Interpretation Comments PROCALCITONIN (BEAKER) (test code 0.65 ng/mL <0.05 H = 3036) SEPSIS RISK (ng/mL)Low: 0.05-0.50Intermediate: 0.51-2.00High: >=2.01POTASSIUM 2018-07-12 13:50:00 Test Item Value Reference Range Interpretation Comments POTASSIUM (BEAKER) (test code = 4.1 meq/L 3.5-5.1 379) BASIC METABOLIC [id number] 13:50:00 Test Item Value Reference Range Interpretation [...] APPLICABLE FOR DIALYSIS PATIEN TS. VANCOMYCIN LEVEL, [id number] 13:49:00 Test Item Value Reference Range Interpretation Comments VANCOMYCIN TROUGH (BEAKER) (test 16.0 ug/mL 10.0-20.0 code = 522) CALCIUM, [id number] 13:32:00 Test Item Value Reference Range Interpretation Comments CALCIUM IONIZED (BEAKER) (test 1.17 mmol/L 1.12-1.27 code = 698) PH, BLOOD (BEAKER) (test code = 7.45 1810) POCT-GLUCOSE [id number] 13:32:00 Test Item Value Reference Range Interpretation Comments POC-GLUCOSE METER 151 mg/dL 70-110 H TESTED AT [facility] 6720 (BEAKER) (test code = V[place]CHO [place] 153) [address] BLOOD GAS, [id number] 10:06:00 Test Item Value Reference Range Interpretation [...] (BEAKER) (test code = 1819) 28.0 % [id number] 08:56:00 Test Item Value Reference Range Interpretation Comments POTASSIUM (BEAKER) (test code = 4.2 meq/L 3.5-5.1 379) BASIC METABOLIC [id number] 08:56:00 Test Item Value Reference Range Interpretation [...] APPLICABLE FOR DIALYSIS PATIEN TS. HEMOGLOBIN AND [id number] 08:38:00 Test Item Value Reference Range Interpretation Comments HEMOGLOBIN (BEAKER) (test code = 7.9 GM/DL 13.7-17.5 L 410) HEMATOCRIT (BEAKER) (test code = 23.9 % 40.1-51.0 L 411) BLOOD [id number] 06:00:00 Test Item Value Reference Range Interpretation Comments CULTURE (BEAKER) (test No growth in 5 days code = 1095) BLOOD [id number] 06:00:00 Test Item Value Reference Range Interpretation Comments CULTURE (BEAKER) (test No growth in 5 days code = 1095) POCT-GLUCOSE [id number] 05:29:00 Test Item Value Reference Range Interpretation Comments POC-GLUCOSE METER 118 mg/dL 70-110 H TESTED AT [facility] 6720 (BEAKER) (test code = GENEVIEVE [place] 1538) [address] CALCIUM, [id number] 04:13:00 Test Item Value Reference Range Interpretation Comments CALCIUM IONIZED (BEAKER) (test 1.18 mmol/L 1.12-1.27 code = 698) PH, BLOOD (BEAKER) (test code = 7.47 1810) [id number] 04:13:00 Test Item Value Reference Range Interpretation Comments POTASSIUM (BEAKER) (test code = 4.4 meq/L 3.5-5.1 379) [id number] 04:13:00 Test Item Value Reference Range Interpretation Comments MAGNESIUM (BEAKER) (test code = 1.9 mg/dL 1.6-2.6 627) [id number] 04:13:00 Test Item Value Reference Range Interpretation Comments PHOSPHORUS (BEAKER) (test code = 2.9 mg/dL 2.3-4.7 604) [id number] 04:13:00 Test Item Value Reference Range Interpretation Comments SODIUM (BEAKER) (test code = 381) 140 meq/L 136-145 HEPATIC FUNCTION [id number] 04:13:00 Test Item Value Reference Range Interpretation [...] code = 31 U/L 6-55 347) PROTHROMBIN [id number] 04:12:00 Test Item Value Reference Range Interpretation [...] mechanical heart valves.CBC W/PLT COUNT & AUTO [id number] 04:01:00 Test Item Value Reference Range Interpretation [...] PERCENT (BEAKER) (test code = 2801) POCT-GLUCOSE [id number] 00:06:00 Test Item Value Reference Range Interpretation Comments POC-GLUCOSE METER 81 mg/dL 70-110 TESTED AT [facility] 6720 (BEAKER) (test code = GENEVIEVE Bruce [facility] [address] 1538) HEMOGLOBIN AND [id number] 23:58:00 Test Item Value Reference Range Interpretation Comments HEMOGLOBIN (BEAKER) (test code = 8.0 GM/DL 13.7-17.5 L 410) HEMATOCRIT (BEAKER) (test code = 24.2 % 40.1-51.0 L 411) [id number] 21:58:00 Test Item Value Reference Range Interpretation Comments POTASSIUM (BEAKER) (test code = 4.2 meq/L 3.5-5.1 379) BASIC METABOLIC [id number] 21:58:00 Test Item Value Reference Range Interpretation [...] NOT APPLICABLE FOR DIALYSIS PATIEN TS. CALCIUM, [id number] 21:53:00 Test Item Value Reference Range Interpretation Comments CALCIUM IONIZED (BEAKER) (test 1.18 mmol/L 1.12-1.27 code = 698) PH, BLOOD (BEAKER) (test code = 7.48 1810) [id number] 18:52:00 Test Item Value Reference Range Interpretation Comments LIPASE (BEAKER) (test code = 749) 57 U/L 8-78 [id number] 18:35:00 Test Item Value Reference Range Interpretation Comments POTASSIUM (BEAKER) (test code = 4.5 meq/L 3.5-5.1 379) [id number] 18:35:00 Test Item Value Reference Range Interpretation Comments MAGNESIUM (BEAKER) (test code = 1.9 mg/dL 1.6-2.6 627) [id number] 18:35:00 Test Item Value Reference Range Interpretation Comments PHOSPHORUS (BEAKER) (test code = 3.1 mg/dL 2.3-4.7 604) [id number] 18:35:00 Test Item Value Reference Range Interpretation Comments SODIUM (BEAKER) (test code = 381) 140 meq/L 136-145 BASIC METABOLIC [id number] 18:35:00 Test Item Value Reference Range Interpretation [...] APPLICABLE FOR DIALYSIS PATIEN TS. HEMOGLOBIN AND [id number] 18:16:00 Test Item Value Reference Range Interpretation Comments HEMOGLOBIN (BEAKER) (test code = 7.7 GM/DL 13.7-17.5 L 410) HEMATOCRIT (BEAKER) (test code = 23.7 % 40.1-51.0 L 411) PH, [id number] 18:07:00 Test Item Value Reference Range Interpretation Comments PH ARTERIAL (BEAKER) (test code = 383) 7.47 7.35-7.45 H POCT-GLUCOSE [id number] 17:24:00 Test Item Value Reference Range Interpretation Comments POC-GLUCOSE METER 151 mg/dL 70-110 H TESTED AT [place] [address] ([facility]) (test code = GENEVIEVE [place] 1530) [address] [id number] 12:50:00 Test Item Value Reference Range Interpretation Comments POTASSIUM (BEAKER) (test code = 5.1 meq/L 3.5-5.1 379) CALCIUM, [id number] 12:37:00 Test Item Value Reference Range Interpretation Comments CALCIUM IONIZED (BEAKER) (test 1.15 mmol/L 1.12-1.27 code = 698) PH, BLOOD (BEAKER) (test code = 7.46 1810) HEMOGLOBIN AND [id number] 12:32:00 Test Item Value Reference Range Interpretation Comments HEMOGLOBIN (BEAKER) (test code = 8.0 GM/DL 13.7-17.5 L 410) HEMATOCRIT (BEAKER) (test code = 24.5 % 40.1-51.0 L 411) POCT-GLUCOSE [id number] 12:04:00 Test Item Value Reference Range Interpretation Comments POC-GLUCOSE METER 191 mg/dL 70-110 H TESTED AT [facility] 6720 (BEAKER) (test code = GENEVIEVE [place] 1538) [address] [id number] 09:30:00 Test Item Value Reference Range Interpretation Comments POTASSIUM (BEAKER) (test code = 4.9 meq/L 3.5-5.1 379) [id number] 09:28:00 Test Item Value Reference Range Interpretation Comments PARTIAL THROMBOPLASTIN TIME 33.3 seconds 22.5-36.0 (BEAKER) (test code = 760) PROTHROMBIN [id number] 09:27:00 Test Item Value Reference Range Interpretation Comments PROTIME (BEAKER) (test code = 15.6 seconds 11.7-14.7 H 759) INR (BEAKER) (test code = 370) 1.2 <=5.9 RECOMMENDED COUMADIN/WARFARIN INR THERAPY RANGESSTANDARD DOSE: 2.0 - 3.0 Includes: PROPHYLAXIS for venous thrombosis, systemic embolization; TREATMENT for venous thrombosis and/or pulmonary embolus.HIGH RISK: Target INR is 2.5-3.5 for patients with mechanical heart valves.[id number] 09:22:00 Test Item Value Reference Range Interpretation Comments POTASSIUM (BEAKER) (test code = 4.9 meq/L 3.5-5.1 379) [id number] 09:22:00 Test Item Value Reference Range Interpretation Comments MAGNESIUM (BEAKER) (test code = 2.1 mg/dL 1.6-2.6 627) [id number] 09:22:00 Test Item Value Reference Range Interpretation Comments PHOSPHORUS (BEAKER) (test code = 3.6 mg/dL 2.3-4.7 604) [id number] 09:22:00 Test Item Value Reference Range Interpretation Comments SODIUM (BEAKER) (test code = 381) 140 meq/L 136-145 BASIC METABOLIC [id number] 09:22:00 Test Item Value Reference Range Interpretation [...] APPLICABLE FOR DIALYSIS PATIEN TS. HEPATIC FUNCTION [id number] 09:22:00 Test Item Value Reference Range Interpretation [...] U/L 6-55 347) SPUTUM CULTURE + GRAM [id number] 08:37:00 Test Item Value Reference Interpretation Comments [...] 0-5 epithelial (BEAKER) (test code = cells 038299) GRAM STAIN RESULT No organisms (BEAKER) (test code = seen 656979) POCT-GLUCOSE [id number] 06:55:00 Test Item Value Reference Range Interpretation Comments POC-GLUCOSE METER 153 mg/dL 70-110 H TESTED AT [facility] 6720 (BEAKER) (test code = GENEVIEVE [place] 1538) [address] [id number] 06:01:00 Test Item Value Reference Range Interpretation [...] for patients with mechanical heart valves.OXYGEN SATURATION, [id number] 06:01:00 Test Item Value Reference Range Interpretation Comments O2 SATURATION (MEASURED) (BEAKER) 85.1 % (test code = 1455) Obtain from CVP portCALCIUM, [id number] 06:01:00 Test Item Value Reference Range Interpretation Comments CALCIUM IONIZED (BEAKER) (test 1.13 mmol/L 1.12-1.27 code = 698) PH, BLOOD (BEAKER) (test code = 7.41 1810) CBC W/PLT COUNT & AUTO [id number] 05:43:00 Test Item Value Reference Range Interpretation [...] (BEAKER) (test code = 2801) HEMOGLOBIN AND [id number] 05:41:00 Test Item Value Reference Range Interpretation Comments HEMOGLOBIN (BEAKER) (test code = 7.7 GM/DL 13.7-17.5 L 410) HEMATOCRIT (BEAKER) (test code = 23.6 % 40.1-51.0 L 411) BLOOD GAS, [id number] 05:34:00 Test Item Value Reference Range Interpretation [...] 1819) 25.0 % LACTIC ACID, ARTERIAL, WHOLE [id number] 05:18:00 Test Item Value Reference Range Interpretation Comments LACTATE BLOOD ARTERIAL (2) 0.6 mmol/L 0.5-2.2 (BEAKER) (test code = 2874) Effective 02/25/2016: Units/Reference Range ChangeNew: 0.5-2.2 mmol/L Previous: 5- 20 mg/[id number] 01:03:00 Test Item Value Reference Range Interpretation Comments POTASSIUM (BEAKER) (test code = 4.7 meq/L 3.5-5.1 379) HEMOGLOBIN AND [id number] 00:48:00 Test Item Value Reference Range Interpretation Comments HEMOGLOBIN (BEAKER) (test code = 7.9 GM/DL 13.7-17.5 L 410) HEMATOCRIT (BEAKER) (test code = 24.1 % 40.1-51.0 L 411) POCT-GLUCOSE [id number] 23:46:00 Test Item Value Reference Range Interpretation Comments POC-GLUCOSE METER 146 mg/dL 70-110 H TESTED AT [facility] 6720 (BEAKER) (test code = GENEVIEVE [place] 1538) [address] [id number] 20:23:00 Test Item Value Reference Range Interpretation Comments POTASSIUM (BEAKER) (test code = 4.7 meq/L 3.5-5.1 379) PROTHROMBIN [id number] 20:14:00 Test Item Value Reference Range Interpretation Comments PROTIME (BEAKER) (test code = 16.1 seconds 11.7-14.7 H 759) INR (BEAKER) (test code = 370) 1.3 <=5.9 RECOMMENDED COUMADIN/WARFARIN INR THERAPY RANGESSTANDARD DOSE: 2.0 - 3.0 Includes: PROPHYLAXIS for venous thrombosis, systemic embolization; TREATMENT for venous thrombosis and/or pulmonary embolus.HIGH RISK: Target INR is 2.5-3.5 for patients with mechanical heart valves.[id number] 20:14:00 Test Item Value Reference Range Interpretation Comments PARTIAL THROMBOPLASTIN TIME 36.0 seconds 22.5-36.0 (BEAKER) (test code = 760) CALCIUM, [id number] 20:02:00 Test Item Value Reference Range Interpretation Comments CALCIUM IONIZED (BEAKER) (test 1.14 mmol/L 1.12-1.27 code = 698) PH, BLOOD (BEAKER) (test code = 7.42 1810) HEMOGLOBIN AND [id number] 19:04:00 Test Item Value Reference Range Interpretation Comments HEMOGLOBIN (BEAKER) (test code = 8.0 GM/DL 13.7-17.5 L 410) HEMATOCRIT (BEAKER) (test code = 24.3 % 40.1-51.0 L 411) [id number] 16:46:00 Test Item Value Reference Range Interpretation Comments POTASSIUM (BEAKER) (test code = 5.0 meq/L 3.5-5.1 379) [id number] 16:46:00 Test Item Value Reference Range Interpretation Comments MAGNESIUM (BEAKER) (test code = 2.1 mg/dL 1.6-2.6 627) [id number] 16:46:00 Test Item Value Reference Range Interpretation Comments PHOSPHORUS (BEAKER) (test code = 3.1 mg/dL 2.3-4.7 604) [id number] 16:46:00 Test Item Value Reference Range Interpretation Comments SODIUM (BEAKER) (test code = 381) 138 meq/L 136-145 PLATELET [id number] 16:34:00 Test Item Value Reference Range Interpretation Comments PLATELET COUNT (BEAKER) (test code 57 K/CU MM 150-450 L = 756) BLOOD GAS, [id number] 16:31:00 Test Item Value Reference Range Interpretation [...] (test 37.0 C code = 1818) POCT-GLUCOSE [id number] 16:25:00 Test Item Value Reference Range Interpretation Comments POC-GLUCOSE METER 135 mg/dL 70-110 H TESTED AT [facility] 6720 (BEAKER) (test code = GENEVIEVE [place] 1538) [address] HEMOGLOBIN AND [id number] 14:50:00 Test Item Value Reference Range Interpretation Comments HEMOGLOBIN (BEAKER) (test code = 7.0 GM/DL 13.7-17.5 L 410) HEMATOCRIT (BEAKER) (test code = 21.1 % 40.1-51.0 L 411) [id number] 12:41:00 Test Item Value Reference Range Interpretation Comments LIPASE (BEAKER) (test code = 749) 44 U/L 8-78 [id number] 12:41:00 Test Item Value Reference Range Interpretation Comments POTASSIUM (BEAKER) (test code = 4.7 meq/L 3.5-5.1 379) LACTIC ACID, ARTERIAL, WHOLE [id number] 12:34:00 Test Item Value Reference Range Interpretation Comments LACTATE BLOOD ARTERIAL (2) 0.6 mmol/L 0.5-2.2 (BEAKER) (test code = 2874) Effective 02/25/2016: Units/Reference Range ChangeNew: 0.5-2.2 mmol/L Previous: 5- 20 mg/dLBLOOD GAS, [id number] 12:32:00 Test Item Value Reference Range Interpretation [...] (test code = 1819) 24.0 % CALCIUM, [id number] 12:32:00 Test Item Value Reference Range Interpretation Comments CALCIUM IONIZED (BEAKER) (test 1.13 mmol/L 1.12-1.27 code = 698) PH, BLOOD (BEAKER) (test code = 7.49 1810) [id number] 12:26:00 Test Item Value Reference Range Interpretation Comments PARTIAL THROMBOPLASTIN TIME 38.8 seconds 22.5-36.0 H (BEAKER) (test code = 760) PROTHROMBIN [id number] 12:25:00 Test Item Value Reference Range Interpretation Comments PROTIME (BEAKER) (test code = 16.4 seconds 11.7-14.7 H 759) INR (BEAKER) (test code = 370) 1.3 <=5.9 RECOMMENDED COUMADIN/WARFARIN INR THERAPY RANGESSTANDARD DOSE: 2.0 - 3.0 Includes: PROPHYLAXIS for venous thrombosis, systemic embolization; TREATMENT for venous thrombosis and/or pulmonary embolus.HIGH RISK: Target INR is 2.5-3.5 for patients with mechanical heart valves.POCT-GLUCOSE [id number] 12:04:00 Test Item Value Reference Range Interpretation Comments POC-GLUCOSE METER 121 mg/dL 70-110 H TESTED AT [facility] 6720 (BEAKER) (test code = GENEVIEVE Bruce BRAEDEN DOWNING 1536) [address] HEMOGLOBIN AND [id number] 10:46:00 Test Item Value Reference Range Interpretation Comments HEMOGLOBIN (BEAKER) (test code = 7.1 GM/DL 13.7-17.5 L 410) HEMATOCRIT (BEAKER) (test code = 21.1 % 40.1-51.0 L 411) CALCIUM, [id number] 09:20:00 Test Item Value Reference Range Interpretation Comments CALCIUM IONIZED (BEAKER) (test 1.13 mmol/L 1.12-1.27 code = 698) PH, BLOOD (BEAKER) (test code = 7.44 1810) CBC W/PLT COUNT & AUTO [id number] 08:02:00 Test Item Value Reference Range Interpretation [...] few (test code = 478) BASIC METABOLIC [id number] 07:43:00 Test Item Value Reference Range Interpretation [...] S NOT APPLICABLE FOR DIALYSIS PATIEN TS. [id number] 07:08:00 Test Item Value Reference Range Interpretation Comments PARTIAL THROMBOPLASTIN TIME 36.9 seconds 22.5-36.0 H (BEAKER) (test code = 760) PROTHROMBIN [id number] 07:07:00 Test Item Value Reference Range Interpretation [...] 0.5-2.2 mmol/L Previous: 5- 20 mg/dLBLOOD GAS, [id number] 06:53:00 Test Item Value Reference Range Interpretation [...] code = 1819) 30.0 % HEMOGLOBIN AND [id number] 06:42:00 Test Item Value Reference Range Interpretation Comments HEMOGLOBIN (BEAKER) (test code = 7.4 GM/DL 13.7-17.5 L 410) HEMATOCRIT (BEAKER) (test code = 22.4 % 40.1-51.0 L 411) POCT-GLUCOSE [id number] 06:33:00 Test Item Value Reference Range Interpretation Comments POC-GLUCOSE METER 159 mg/dL 70-110 H TESTED AT [facility] 6720 (BEAKER) (test code = [place] 1538) [address] CALCIUM, [id number] 04:45:00 Test Item Value Reference Range Interpretation Comments CALCIUM IONIZED (BEAKER) (test 1.12 mmol/L 1.12-1.27 code = 698) PH, BLOOD (BEAKER) (test code = 7.42 1810) [id number] 04:42:00 Test Item Value Reference Range Interpretation Comments MAGNESIUM (BEAKER) 2.4 mg/dL 1.6-2.6 Specimen slightly (test code = 627) hemolyzed [id number] 04:42:00 Test Item Value Reference Range Interpretation Comments POTASSIUM (BEAKER) 4.7 meq/L 3.5-5.1 Specimen slightly (test code = 379) hemolyzed HEPATIC FUNCTION [id number] 04:42:00 Test Item Value Reference Range Interpretation [...] (test code = 347) hemolyzed OXYGEN SATURATION, [id number] 04:35:00 Test Item Value Reference Range Interpretation Comments O2 SATURATION (MEASURED) (BEAKER) 95.5 % (test code = 1455) Obtain from CVP portLACTIC ACID, ARTERIAL, WHOLE [id number] 01:05:00 Test Item Value Reference Range Interpretation Comments LACTATE BLOOD ARTERIAL (2) 0.6 mmol/L 0.5-2.2 (BEAKER) (test code = 2874) Effective 02/25/2016: Units/Reference Range ChangeNew: 0.5-2.2 mmol/L Previous: 5- 20 mg/dLBLOOD GAS, [id number] 00:41:00 Test Item Value Reference Range Interpretation [...] (test code = 1819) 50.0 % CALCIUM, [id number] 00:41:00 Test Item Value Reference Range Interpretation Comments CALCIUM IONIZED (BEAKER) (test 1.12 mmol/L 1.12-1.27 code = 698) PH, BLOOD (BEAKER) (test code = 7.42 1810) [id number] 00:25:00 Test Item Value Reference Range Interpretation Comments POTASSIUM (BEAKER) (test code = 4.7 meq/L 3.5-5.1 379) [id number] 00:20:00 Test Item Value Reference Range Interpretation Comments PARTIAL THROMBOPLASTIN TIME 36.5 seconds 22.5-36.0 H (BEAKER) (test code = 760) PROTHROMBIN [id number] 00:19:00 Test Item Value Reference Range Interpretation Comments PROTIME (BEAKER) (test code = 16.4 seconds 11.7-14.7 H 759) INR (BEAKER) (test code = 370) 1.3 <=5.9 RECOMMENDED COUMADIN/WARFARIN INR THERAPY RANGESSTANDARD DOSE: 2.0 - 3.0 Includes: PROPHYLAXIS for venous thrombosis, systemic embolization; TREATMENT for venous thrombosis and/or pulmonary embolus.HIGH RISK: Target INR is 2.5-3.5 for patients with mechanical heart valves.POCT-GLUCOSE [id number] 00:12:00 Test Item Value Reference Range Interpretation Comments POC-GLUCOSE METER 186 mg/dL 70-110 H TESTED AT [facility] 6720 (BEAKER) (test code = [place] 1538) [address] HEMOGLOBIN AND [id number] 00:08:00 Test Item Value Reference Range Interpretation Comments HEMOGLOBIN (BEAKER) (test code = 7.9 GM/DL 13.7-17.5 L 410) HEMATOCRIT (BEAKER) (test code = 23.1 % 40.1-51.0 L 411) [id number] 19:56:00 Test Item Value Reference Range Interpretation Comments POTASSIUM (BEAKER) (test code = 4.9 meq/L 3.5-5.1 379) [id number] 19:56:00 Test Item Value Reference Range Interpretation Comments MAGNESIUM (BEAKER) (test code = 2.2 mg/dL 1.6-2.6 627) [id number] 19:56:00 Test Item Value Reference Range Interpretation Comments PHOSPHORUS (BEAKER) (test code = 3.8 mg/dL 2.3-4.7 604) [id number] 19:56:00 Test Item Value Reference Range Interpretation Comments SODIUM (BEAKER) (test code = 381) 137 meq/L 136-145 BASIC METABOLIC [id number] 19:56:00 Test Item Value Reference Range Interpretation [...] PATIEN TS. CBC W/PLT COUNT & AUTO [id number] 19:56:00 Test Item Value Reference Range Interpretation [...] PERCENT (BEAKER) (test code = 2801) CALCIUM, [id number] 19:41:00 Test Item Value Reference Range Interpretation Comments CALCIUM IONIZED (BEAKER) (test 1.13 mmol/L 1.12-1.27 code = 698) PH, BLOOD (BEAKER) (test code = 7.45 8960) LACTIC ACID, ARTERIAL, WHOLE [id number] 18:09:00 Test Item Value Reference Range Interpretation Comments LACTATE BLOOD ARTERIAL (2) 0.6 mmol/L 0.5-2.2 (BEAKER) (test code = 2874) Effective 02/25/2016: Units/Reference Range ChangeNew: 0.5-2.2 mmol/L Previous: 5- 20 mg/[id number] 18:09:00 Test Item Value Reference Range Interpretation Comments TRIGLYCERIDES (BEAKER) (test code = 259 mg/dL 540) TRIGLYCERIDE REFERENCE RANGELow Risk <150Borderline Risk 150-199High Risk 200-499Very High Risk >=[id number] 18:05:00 Test Item Value Reference Range Interpretation Comments PARTIAL THROMBOPLASTIN TIME 35.6 seconds 22.5-36.0 (BEAKER) (test code = 760) PROTHROMBIN [id number] 18:04:00 Test Item Value Reference Range Interpretation Comments PROTIME (BEAKER) (test code = 16.2 seconds 11.7-14.7 H 759) INR (BEAKER) (test code = 370) 1.3 <=5.9 RECOMMENDED COUMADIN/WARFARIN INR THERAPY RANGESSTANDARD DOSE: 2.0 - 3.0 Includes: PROPHYLAXIS for venous thrombosis, systemic embolization; TREATMENT for venous thrombosis and/or pulmonary embolus.HIGH RISK: Target INR is 2.5-3.5 for patients with mechanical heart valves.HEMOGLOBIN AND [id number] 17:52:00 Test Item Value Reference Range Interpretation Comments HEMOGLOBIN (BEAKER) (test code = 7.9 GM/DL 13.7-17.5 L 410) HEMATOCRIT (BEAKER) (test code = 22.4 % 40.1-51.0 L 411) BLOOD GAS, [id number] 17:48:00 Test Item Value Reference Range Interpretation [...] (test code = 1819) 50.0 % POCT-GLUCOSE [id number] 17:45:00 Test Item Value Reference Range Interpretation Comments POC-GLUCOSE METER 184 mg/dL 70-110 H TESTED AT [facility] 6720 (BEAKER) (test code = [place] 1538) [address] [id number] 16:05:00 Test Item Value Reference Range Interpretation Comments POTASSIUM (BEAKER) (test code = 4.9 meq/L 3.5-5.1 379) CALCIUM, [id number] 15:53:00 Test Item Value Reference Range Interpretation Comments CALCIUM IONIZED (BEAKER) (test 1.18 mmol/L 1.12-1.27 code = 698) PH, BLOOD (BEAKER) (test code = 7.42 1810) [id number] 12:36:00 Test Item Value Reference Range Interpretation Comments PARTIAL THROMBOPLASTIN TIME 39.8 seconds 22.5-36.0 H (BEAKER) (test code = 760) PROTHROMBIN [id number] 12:35:00 Test Item Value Reference Range Interpretation [...] Range ChangeNew: 0.5-2.2 mmol/L Previous: 5- 20 mg/[id number] 12:34:00 Test Item Value Reference Range Interpretation Comments POTASSIUM (BEAKER) (test code = 4.6 meq/L 3.5-5.1 379) BLOOD GAS, [id number] 12:17:00 Test Item Value Reference Range Interpretation [...] code = 1819) 50.0 % HEMOGLOBIN AND [id number] 12:17:00 Test Item Value Reference Range Interpretation Comments HEMOGLOBIN (BEAKER) (test code = 9.6 GM/DL 13.7-17.5 L 410) HEMATOCRIT (BEAKER) (test code = 27.3 % 40.1-51.0 L 411) CALCIUM, [id number] 12:17:00 Test Item Value Reference Range Interpretation Comments CALCIUM IONIZED (BEAKER) (test 1.13 mmol/L 1.12-1.27 code = 698) PH, BLOOD ([facility]) (test code = 7.37 1810) OXYGEN SATURATION, [id number] 12:16:00 Test Item Value Reference Range Interpretation Comments O2 SATURATION (MEASURED) (AKER) 81.6 % (test code = 1455) Obtain from CVP portRAD, CHEST, 1 VIEW, NON [id number] 12:16:00Reason for exam:->assess for pulmonary edemaShould this [...] to mild worsening of CHF. Signed: [facility] Verified Date/Time: 12:16:49 Reading Location: [address] Body Reading Room POCT-GLUCOSE METER 2018-07-09 12:06:00 Test Item Value Reference Range Interpretation Comments POC-GLUCOSE METER 209 mg/dL 70-110 H TESTED AT [facility] 6720 ([facility]) (test code = [place] 1538) [address] HEMOGLOBIN AND [id number] 10:33:00 Test Item Value Reference Range Interpretation Comments HEMOGLOBIN (BEAKER) (test code = 10.4 GM/DL 13.7-17.5 L 410) HEMATOCRIT ([facility]) (test code = 29.6 % 40.1-51.0 L 411) THROMBOELASTOGRAPH (TEG)2018-07-09 10:31:00 Test Item Value Reference Range Interpretation Comments TEG ACTIVATED CLOTTING TIME 4.7 minutes 4.0-7.0 ([facility]) (test code = 1407) TEG FIBRINOGEN ACTIVITY ([facility]) 69.6 degrees 61.0-73.0 (test code = 1408) [...] % 0.0-5.0 code = 1414) BLOOD GAS, [id number] 09:22:00 Test Item Value Reference Range Interpretation [...] FIO2 (BEAKER) (test code = 1819) 60 [id number] 08:58:00 Test Item Value Reference Range Interpretation Comments POTASSIUM (BEAKER) (test code = 4.7 meq/L 3.5-5.1 379) [id number] 08:58:00 Test Item Value Reference Range Interpretation Comments MAGNESIUM (BEAKER) (test code = 2.2 mg/dL 1.6-2.6 627) [id number] 08:58:00 Test Item Value Reference Range Interpretation Comments PHOSPHORUS (BEAKER) (test code = 3.4 mg/dL 2.3-4.7 604) [id number] 08:58:00 Test Item Value Reference Range Interpretation Comments SODIUM (BEAKER) (test code = 381) 136 meq/L 136-145 LACTIC ACID, ARTERIAL, WHOLE [id number] 08:55:00 Test Item Value Reference Range Interpretation Comments LACTATE BLOOD ARTERIAL (2) 1.9 mmol/L 0.5-2.2 (BEAKER) (test code = 2874) Effective 02/25/2016: Units/Reference Range ChangeNew: 0.5-2.2 mmol/L Previous: 5- 20 mg/dLCBC W/PLT COUNT & AUTO [id number] 08:46:00 Test Item Value Reference Range Interpretation [...] = 31.0 % 40.1-51.0 L 411) CALCIUM, [id number] 08:30:00 Test Item Value Reference Range Interpretation Comments CALCIUM IONIZED (BEAKER) (test 1.17 mmol/L 1.12-1.27 code = 698) PH, BLOOD (BEAKER) (test code = 7.50 1810) PH, [id number] 08:30:00 Test Item Value Reference Range Interpretation Comments PH ARTERIAL (BEAKER) (test code = 383) 7.50 7.35-7.45 H POCT-GLUCOSE [id number] 08:26:00 Test Item Value Reference Range Interpretation Comments POC-GLUCOSE METER 180 mg/dL 70-110 H TESTED AT [facility] 6720 (ASIM) (test code = [place] 1538) [address] ANG, EMBOLIZATION, EXTENSIVE - [id number] 07:11:00Reason for exam:- >upper GI bleedFINAL REPORT [...] Euceda MDReportVerified Date/Time: 07/09/2018 07:11:14 Reading Location: [place] [address] Angio Body Reading Room CALCIUM, [id number] 07:06:00 Test Item Value Reference Range Interpretation Comments CALCIUM IONIZED (BEAKER) (test 1.10 mmol/L 1.12-1.27 L code = 698) PH, BLOOD (BEAKER) (test code = 7.42 1810) MRSA [id number] 06:59:00 Test Item Value Reference Range Interpretation Comments CULTURE (BEAKER) (test code No MRSA isolated = 1095) [id number] 06:24:00 Test Item Value Reference Range Interpretation [...] exclusion of thrombosis is within 95-100% range. [id number] 06:20:00 Test Item Value Reference Range Interpretation Comments FIBRINOGEN LEVEL (BEAKER) (test 128 mg/dl 225-434 L code = 658) HEPATIC FUNCTION [id number] 06:16:00 Test Item Value Reference Range Interpretation [...] (test code = 28 U/L 6-55 347) [id number] 06:15:00 Test Item Value Reference Range Interpretation [...] for patients with mechanical heart valves.BASIC METABOLIC [id number] 06:12:00 Test Item Value Reference Range Interpretation [...] S NOT APPLICABLE FOR DIALYSIS PATIEN TS. [id number] 06:12:00 Test Item Value Reference Range Interpretation Comments MAGNESIUM (BEAKER) (test code = 1.7 mg/dL 1.6-2.6 627) [id number] 06:12:00 Test Item Value Reference Range Interpretation Comments POTASSIUM (BEAKER) (test code = 4.8 meq/L 3.5-5.1 379) [id number] 06:12:00 Test Item Value Reference Range Interpretation Comments SODIUM (BEAKER) (test code = 381) 136 meq/L 136-145 PLATELET [id number] 05:53:00 Test Item Value Reference Range Interpretation Comments PLATELET COUNT (BEAKER) (test code 62 K/CU MM 150-450 L = 756) HEMOGLOBIN AND [id number] 05:53:00 Test Item Value Reference Range Interpretation [...] % 0.0-5.0 code = 1414) POCT-BLOOD GASES, [id number] 03:55:00 Test Item Value Reference Range Interpretation Comments TEMP, CELSIUS-POC 36.1 (BEAKER) (test code = 1834) FIO2-POC (BEAKER) 60 TESTED AT [facility] 6720 (test code = 1835) [place] [address] PH, ARTERIAL-POC 7.337 7.350-7.450 L (BEAKER) (test code = 1836) PCO2, ARTERIAL-POC 42.1 mm Hg 35.0-45.0 (BEAKER) (test code = 1837) PO2, ARTERIAL-POC 95.0 mm Hg 80.0-90.0 H (BEAKER) (test code = 1838) SO2, ARTERIAL-POC 97.0 % 96.0-97.0 ([facility]) (test code = 1839) HCO3, ARTERIAL-POC 22.8 meq/L 21.0-29.0 (BEAKER) (test code = 1840) BASE EXCESS, -3.0 meq/L -2.0-3.0 L ARTERIAL-POC (AKER) (test code = 1841) [id number] 03:55:00 Test Item Value Reference Range Interpretation Comments POC-SODIUM (BEAKER) 139 meq/L 135-148 TESTED [place] [address] (test code = 1542) [place] [facility] [address] [id number] 03:55:00 Test Item Value Reference Range Interpretation Comments POC-POTASSIUM 4.7 meq/L 3.6-5.5 TESTED AT [place] [address] ([facility]) (test code [facility] [address] = 1540) [id number] 03:55:00 Test Item Value Reference Range Interpretation Comments POC-GLUCOSE ([facility]) 175 mg/dL 70-110 H TESTED AT [place] [address] (test code = 1855) [facility] [address] POCT-CALCIUM [id number] 03:55:00 Test Item Value Reference Range Interpretation Comments POC-CALCIUM IONIZED 1.27 mmol/L 1.12-1.27 TESTED A [place] [address] ([facility]) (test code = [facility] 1537) [address] [id number] 03:55:00 Test Item Value Reference Range Interpretation Comments POC-HEMATOCRIT 26 % 40-50 L TESTED AT [place] [address] ([facility]) (test code = [facility] [address]21) [id number] 03:55:00 Test Item Value Reference Range Interpretation Comments POC-HEMOGLOBIN 8.8 g/dL 13.0-16.8 L TESTED AT [place] [address] ([facility]) (test code = [facility] 1852) 318[address]DKPKCT AT [place] [address] A[place] [facility] [address] CALCIUM, [id number] 02:37:00 Test Item Value Reference Range Interpretation Comments CALCIUM IONIZED (AKER) (test 1.94 mmol/L 1.12-1.27 HH code = 698) PH, BLOOD (BEAKER) (test code = 7.26 1810) BLOOD GAS, [id number] 02:30:00 Test Item Value Reference Range Interpretation [...] (test 0.0 % 0.0-5.0 code = 1414) [id number] 01:54:00 Test Item Value Reference Range Interpretation Comments POTASSIUM (BEAKER) (test code = 3.9 meq/L 3.5-5.1 379) [id number] 01:54:00 Test Item Value Reference Range Interpretation Comments SODIUM (BEAKER) (test code = 381) 138 meq/L 136-145 PLATELET [id number] 01:46:00 Test Item Value Reference Range Interpretation Comments PLATELET COUNT (BEAKER) (test code 69 K/CU MM 150-450 L = 756) HEMOGLOBIN AND [id number] 01:46:00 Test Item Value Reference Range Interpretation Comments HEMOGLOBIN (BEAKER) (test code = 9.0 GM/DL 13.7-17.5 L 410) HEMATOCRIT (BEAKER) (test code = 27.4 % 40.1-51.0 L 411) POCT-BLOOD GASES, [id number] 01:27:00 Test Item Value Reference Range Interpretation Comments TEMP, CELSIUS-POC 36.4 (BEAKER) (test code = 1834) FIO2-POC (BEAKER) TESTED AT [place] [address] (test code = 1835) [place] [address] PH, ARTERIAL-POC 7.194 7.350-7.450 LL (BEAKER) (test [...] L ARTERIAL-POC (BEAKER) (test code = 1841) [id number] 01:27:00 Test Item Value Reference Range Interpretation Comments POC-SODIUM (BEAKER) 141 meq/L 135-148 TESTED A T [place] [address] (test code = 1542) [place] [facility] [address] [id number] 01:27:00 Test Item Value Reference Range Interpretation Comments POC-POTASSIUM 4.0 meq/L 3.6-5.5 TESTED AT [place] [address] (BEAKER) ([place] [address] = 1540) [id number] 01:27:00 Test Item Value Reference Range Interpretation Comments POC-GLUCOSE (AKER) 219 mg/dL 70-110 H TESTED AT [place] [address] (test code = 1855) [place] [facility] [address] POCT-CALCIUM [id number] 01:27:00 Test Item Value Reference Range Interpretation Comments POC-CALCIUM IONIZED 0.99 mmol/L 1.12-1.27 L TESTED [place] [address] ([facility]) (test code = [facility] 1536) [address] [id number] 01:27:00 Test Item Value Reference Range Interpretation Comments POC-HEMATOCRIT 20 % 40-50 L TESTED AT [place] [address] ([facility]) (test code = [facility] [address] 1857) [id number] 01:27:00 Test Item Value Reference Range Interpretation Comments POC-HEMOGLOBIN 6.8 g/dL 13.0-16.8 L TESTED AT [place] [address] ([facility]) (test code = [facility] 1856) [address]PXEKPM AT [place] [address] A[place] [facility] [address] HEMOGLOBIN AND [id number] 01:04:00 Test Item Value Reference Range Interpretation Comments HEMOGLOBIN (BEAKER) (test code = 6.9 GM/DL 13.7-17.5 L 410) HEMATOCRIT (BEAKER) (test code = 21.0 % 40.1-51.0 L 411) VANCOMYCIN LEVEL, [id number] 00:57:00 Test Item Value Reference Range Interpretation Comments VANCOMYCIN TROUGH (BEAKER) (test 19.9 ug/mL 10.0-20.0 code = 522) CALCIUM, [id number] 00:41:00 Test Item Value Reference Range Interpretation Comments CALCIUM IONIZED (BEAKER) (test 1.01 mmol/L 1.12-1.27 L code = 698) PH, BLOOD (AKER) (test code = 7.35 1810) [id number] 00:41:00 Test Item Value Reference Range Interpretation Comments POTASSIUM (BEAKER) (test code = 4.5 meq/L 3.5-5.1 379) HEMOGLOBIN AND [id number] 21:53:00 Test Item Value Reference Range Interpretation Comments HEMOGLOBIN (BEAKER) (test code = 6.1 GM/DL 13.7-17.5 L 410) HEMATOCRIT (BEAKER) (test code = 18.0 % 40.1-51.0 L 411) [id number] 19:42:00 Test Item Value Reference Range Interpretation Comments POTASSIUM (BEAKER) (test code = 4.6 meq/L 3.5-5.1 379) [id number] 19:42:00 Test Item Value Reference Range Interpretation Comments MAGNESIUM (BEAKER) (test code = 1.8 mg/dL 1.6-2.6 627) [id number] 19:42:00 Test Item Value Reference Range Interpretation Comments PHOSPHORUS (BEAKER) (test code = 3.5 mg/dL 2.3-4.7 604) [id number] 19:42:00 Test Item Value Reference Range Interpretation Comments SODIUM (BEAKER) (test code = 381) 137 meq/L 136-145 PROTHROMBIN [id number] 19:40:00 Test Item Value Reference Range Interpretation Comments PROTIME (BEAKER) (test code = 18.3 seconds 11.7-14.7 H 759) INR (BEAKER) (test code = 370) 1.5 <=5.9 RECOMMENDED COUMADIN/WARFARIN INR THERAPY RANGESSTANDARD DOSE: 2.0 - 3.0 Includes: PROPHYLAXIS for venous thrombosis, systemic embolization; TREATMENT for venous thrombosis and/or pulmonary embolus.HIGH RISK: Target INR is 2.5-3.5 for patients with mechanical heart valves.PH, [id number] 19:30:00 Test Item Value Reference Range Interpretation Comments PH ARTERIAL (BEAKER) (test code = 383) 7.44 7.35-7.45 CALCIUM, [id number] 19:30:00 Test Item Value Reference Range Interpretation Comments CALCIUM IONIZED (BEAKER) (test 1.13 mmol/L 1.12-1.27 code = 698) PH, BLOOD (BEAKER) (test code = 7.44 1810) HEMOGLOBIN AND [id number] 19:28:00 Test Item Value Reference Range Interpretation Comments HEMOGLOBIN (BEAKER) (test code = 7.5 GM/DL 13.7-17.5 L 410) HEMATOCRIT (BEAKER) (test code = 21.8 % 40.1-51.0 L 411) POCT-GLUCOSE [id number] 17:21:00 Test Item Value Reference Range Interpretation Comments POC-GLUCOSE METER 189 mg/dL 70-110 H TESTED AT [facility] 6720 (BEAKER) (test code = [place] 1538) [address] [id number] 16:23:00 Test Item Value Reference Range Interpretation Comments MAGNESIUM (BEAKER) (test code = 1.8 mg/dL 1.6-2.6 627) CALCIUM, [id number] 16:07:00 Test Item Value Reference Range Interpretation Comments CALCIUM IONIZED (BEAKER) (test 1.14 mmol/L 1.12-1.27 code = 698) PH, BLOOD (BEAKER) (test code = 7.43 1810) HEMOGLOBIN AND [id number] 16:05:00 Test Item Value Reference Range Interpretation Comments HEMOGLOBIN (BEAKER) (test code = 8.1 GM/DL 13.7-17.5 L 410) HEMATOCRIT (BEAKER) (test code = 23.4 % 40.1-51.0 L 411) BLOOD GAS, [id number] 12:34:00 Test Item Value Reference Range Interpretation [...] (test code = 1819) 60.0 % PROTHROMBIN [id number] 12:05:00 Test Item Value Reference Range Interpretation Comments PROTIME (BEAKER) (test code = 18.1 seconds 11.7-14.7 H 759) INR (BEAKER) (test code = 370) 1.5 <=5.9 RECOMMENDED COUMADIN/WARFARIN INR THERAPY RANGESSTANDARD DOSE: 2.0 - 3.0 Includes: PROPHYLAXIS for venous thrombosis, systemic embolization; TREATMENT for venous thrombosis and/or pulmonary embolus.HIGH RISK: Target INR is 2.5-3.5 for patients with mechanical heart valves.BLOOD GAS, [id number] 11:30:00 Test Item Value Reference Range Interpretation [...] (test code = 1819) 60.0 % CALCIUM, [id number] 11:29:00 Test Item Value Reference Range Interpretation Comments CALCIUM IONIZED (BEAKER) (test 1.15 mmol/L 1.12-1.27 code = 698) PH, BLOOD (BEAKER) (test code = 7.52 1810) POCT-GLUCOSE [id number] 11:22:00 Test Item Value Reference Range Interpretation Comments POC-GLUCOSE METER 202 mg/dL 70-110 H TESTED AT [facility] 6720 (BEAKER) (test code = GENEVIEVE Bruce [place] 1538) [address] [id number] 10:07:00 Test Item Value Reference Range Interpretation Comments FIBRINOGEN LEVEL (BEAKER) (test 222 mg/dl 225-434 L code = 658) HEMOGLOBIN AND [id number] 09:58:00 Test Item Value Reference Range Interpretation Comments HEMOGLOBIN (BEAKER) (test code = 8.8 GM/DL 13.7-17.5 L 410) HEMATOCRIT (BEAKER) (test code = 25.4 % 40.1-51.0 L 411) TROPONIN [id number] 09:11:00 Test Item Value Reference Range Interpretation [...] MDReport Verified Date/Time: 07/08/2018 08:52:14 Reading Location: [facility] Consult Reading Room Electronically signed by: SHARATH SERRA M.D. on 06/24 08:52 AMLACTIC ACID, ARTERIAL, WHOLE [id number] 08:43:00 Test Item Value Reference Range Interpretation Comments LACTATE BLOOD ARTERIAL (2) 1.1 mmol/L 0.5-2.2 (BEAKER) (test code = 2874) Effective 02/25/2016: Units/Reference Range ChangeNew: 0.5-2.2 mmol/L Previous: 5- 20 mg/[id number] 08:12:00 Test Item Value Reference Range Interpretation Comments POTASSIUM (BEAKER) (test code = 3.9 meq/L 3.5-5.1 379) [id number] 08:12:00 Test Item Value Reference Range Interpretation Comments MAGNESIUM (BEAKER) (test code = 1.8 mg/dL 1.6-2.6 627) [id number] 08:12:00 Test Item Value Reference Range Interpretation Comments PHOSPHORUS (BEAKER) (test code = 2.2 mg/dL 2.3-4.7 L 604) [id number] 08:12:00 Test Item Value Reference Range Interpretation Comments SODIUM (BEAKER) (test code = 381) 134 meq/L 136-145 L HEMOGLOBIN AND [id number] 07:56:00 Test Item Value Reference Range Interpretation Comments HEMOGLOBIN (BEAKER) (test code = 8.9 GM/DL 13.7-17.5 L 410) HEMATOCRIT (BEAKER) (test code = 25.7 % 40.1-51.0 L 411) PH, [id number] 07:55:00 Test Item Value Reference Range Interpretation Comments PH ARTERIAL (BEAKER) (test code = 383) 7.63 7.35-7.45 HH CALCIUM, [id number] 07:53:00 Test Item Value Reference Range Interpretation Comments CALCIUM IONIZED (BEAKER) (test 1.06 mmol/L 1.12-1.27 L code = 698) PH, BLOOD (BEAKER) (test code = 7.63 1810) POCT-GLUCOSE [id number] 07:42:00 Test Item Value Reference Range Interpretation Comments POC-GLUCOSE METER 190 mg/dL 70-110 H TESTED AT [facility] 6720 (BEAKER) (test code = GENEVIEVE [place] 1808) [address] FIBRIN SOLUBLE [id number] 07:40:00 Test Item Value Reference Range Interpretation Comments FIBRIN SOLUBLE MONOMER (BEAKER) Negative (test code = 1416) HEMOGLOBIN AND [id number] 06:23:00 Test Item Value Reference Range Interpretation [...] 0.0 % 0.0-5.0 code = 1414) CALCIUM, [id number] 05:19:00 Test Item Value Reference Range Interpretation Comments CALCIUM IONIZED (BEAKER) (test 1.28 mmol/L 1.12-1.27 H code = 698) PH, BLOOD (BEAKER) (test code = 7.40 1810) [id number] 04:51:00 Test Item Value Reference Range Interpretation Comments MAGNESIUM (BEAKER) (test code = 2.0 mg/dL 1.6-2.6 627) BASIC METABOLIC [id number] 04:51:00 Test Item Value Reference Range Interpretation [...] DIALYSIS PATIEN TS. Specimen slightly ictericHEPATIC FUNCTION [id number] 04:51:00 Test Item Value Reference Range Interpretation [...] = 34 U/L 6-55 347) Specimen slightly [id number]-[id number] 04:45:00 Test Item Value Reference Range Interpretation [...] 22.5-36.0 (BEAKER) (test code = 760) PROTHROMBIN TIME/[id number] 04:41:00 Test Item Value Reference Range Interpretation [...] 0.5-2.2 mmol/L Previous: 5- 20 mg/dLBLOOD GAS, [id number] 04:19:00 Test Item Value Reference Range Interpretation [...] code = 1819) 100.0 % HEMOGLOBIN AND [id number] 02:16:00 Test Item Value Reference Range Interpretation Comments HEMOGLOBIN (BEAKER) (test code = 7.9 GM/DL 13.7-17.5 L 410) HEMATOCRIT (BEAKER) (test code = 22.4 % 40.1-51.0 L 411) [id number] 00:24:00 Test Item Value Reference Range Interpretation Comments POTASSIUM (BEAKER) (test code = 4.1 meq/L 3.5-5.1 379) CALCIUM, [id number] 00:22:00 Test Item Value Reference Range Interpretation Comments CALCIUM IONIZED (BEAKER) (test 1.09 mmol/L 1.12-1.27 L code = 698) PH, BLOOD (BEAKER) (test code = 7.44 1810) HEMOGLOBIN AND [id number] 00:16:00 Test Item Value Reference Range Interpretation Comments HEMOGLOBIN (BEAKER) (test code = 8.1 GM/DL 13.7-17.5 L 410) HEMATOCRIT (BEAKER) (test code = 23.8 % 40.1-51.0 L 411) HEMOGLOBIN AND [id number] 22:26:00 Test Item Value Reference Range Interpretation Comments HEMOGLOBIN (BEAKER) (test code = 8.1 GM/DL 13.7-17.5 L 410) HEMATOCRIT (BEAKER) (test code = 23.7 % 40.1-51.0 L 411) POCT-GLUCOSE [id number] 22:10:00 Test Item Value Reference Range Interpretation Comments POC-GLUCOSE METER 257 mg/dL 70-110 H TESTED AT [facility] 6720 (BEAKER) (test code = GENEVIEVE DOWN[place] 1538) [address] THROMBOELASTOGRAPH (TEG)2018-07-07 21:16:00 Test Item Value Reference [...] (test 0.0 % 0.0-5.0 code = 1414) [id number] 21:02:00 Test Item Value Reference Range Interpretation Comments POTASSIUM (BEAKER) (test code = 4.1 meq/L 3.5-5.1 379) [id number] 21:02:00 Test Item Value Reference Range Interpretation Comments MAGNESIUM (BEAKER) (test code = 1.7 mg/dL 1.6-2.6 627) [id number] 21:02:00 Test Item Value Reference Range Interpretation Comments PHOSPHORUS (BEAKER) (test code = 4.3 mg/dL 2.3-4.7 604) [id number] 21:02:00 Test Item Value Reference Range Interpretation Comments SODIUM (BEAKER) (test code = 381) 138 meq/L 136-145 CALCIUM, [id number] 20:36:00 Test Item Value Reference Range Interpretation Comments CALCIUM IONIZED (BEAKER) (test 0.98 mmol/L 1.12-1.27 L code = 698) PH, BLOOD (BEAKER) (test code = 7.34 1810) PH, [id number] 20:36:00 Test Item Value Reference Range Interpretation Comments PH ARTERIAL (BEAKER) (test code = 383) 7.34 7.35-7.45 L HEMOGLOBIN AND [id number] 20:30:00 Test Item Value Reference Range Interpretation Comments HEMOGLOBIN (BEAKER) (test code = 7.8 GM/DL 13.7-17.5 L 410) HEMATOCRIT (BEAKER) (test code = 22.8 % 40.1-51.0 L 411) RAD, CHEST, 1 VIEW, NON [id number] 19:08:00Reason for exam:->s/p dialysis catheterShould this be [...] osseous abnormality is identified. Signed: Brendan Azar Verified Date/Time: 07/07/2018 19:08:34 Reading Location: [address] Consult Reading Room ANG, VISCERAL [id number] 18:27:00from ercpFINAL REPORT Exam: Visceral arteriogram Clinical [...] Impression: 1. Visceral arteriogram as described. Signed: Fang, Ricardo-Tsuen MDReport Verified Date/Time: 07/07/2018 18:27:51 Reading Location: [facility] Radiology Reading Room HEMOGLOBIN AND HEMATOCRIT 2018-07-07 18:25:00 Test Item Value Reference Range Interpretation Comments HEMOGLOBIN (BEAKER) (test code = 7.6 GM/DL 13.7-17.5 L 410) HEMATOCRIT (BEAKER) (test code = 22.8 % 40.1-51.0 L 411) TROPONIN [id number] 18:16:00 Test Item Value Reference Range Interpretation [...] acute neurological disease, and persistent tachyarrhythmia.BASIC METABOLIC [id number] 17:33:00 Test Item Value Reference Range Interpretation [...] S NOT APPLICABLE FOR DIALYSIS PATIEN CASSIE. [id number] 17:32:00 Test Item Value Reference Range Interpretation Comments MAGNESIUM (BEAKER) (test code = 1.7 mg/dL 1.6-2.6 627) POCT-GLUCOSE [id number] 17:29:00 Test Item Value Reference Range Interpretation Comments POC-GLUCOSE METER 283 mg/dL 70-110 H TESTED AT [facility] 6720 (BEAKER) (test code = GENEVIEVE DERAS [place] 1538) [address] SODIUM, RANDOM [id number] 17:20:00 Test Item Value Reference Range Interpretation Comments SODIUM URINE (BEAKER) (test code = < meq/L 243) Reference Range: No NormalsFIBRIN SOLUBLE [id number] 17:20:00 Test Item Value Reference Range Interpretation Comments FIBRIN SOLUBLE MONOMER (BEAKER) Negative (test code = 1416) ANG, ARTERIAL EMBOLIZATION FOR [id number] 17:15:00Reason for exam:->s/p ERCP with bleedFINAL REPORT History: Upper GI bleed, active bleeding by recent endoscopy. PROCEDURE: Following informed written consent, the patient's right femoral area was prepped and draped inthe usual sterile manner. 2% lidocaine was given locally for anesthesia. No conscious sedation was ad ministered. Access was gained to the right common femoral artery and a 5 Welsh sheath was placed. A5 Welsh Alcantar B catheter was placed over a wire into the abdominal aorta and used to carefully select and perform celiac and superior mesenteric arteriograms. With the catheter parked in origin of thesuperior mesenteric artery, coaxial technique was utilized to advance a 3 Welsh microcatheter over a wire and into a proximal branch of the places replaced right hepatic artery which appears to be a gastroduodenal vessel. Subselective arteriography was performed. The 3 Welsh microcatheter was further advanced into a distal [...] removed and hemostasis achieved using a 5 Welsh mynx closure device. Overall, the patient tolerated [...] MDReport Verified Date/Time: 07/07/2018 17:15:21 Reading Location: [place] [address] Angio Body Reading Room CREATININE, RANDOM [id number] 17:14:00 Test Item Value Reference Range Interpretation Comments CREATININE URINE (BEAKER) (test 68.4 mg/dL code = 375) Reference Range: No NormalsPROTEIN, RANDOM [id number] 17:14:00 Test Item Value Reference Range Interpretation Comments PROTEIN, URINE (BEAKER) (test code = 33 mg/dL 0-14 H 1569) [id number] 16:58:00 Test Item Value Reference Range Interpretation Comments POTASSIUM (BEAKER) (test code = 4.2 meq/L 3.5-5.1 379) URINALYSIS WITH MICROSCOPIC IF [id number] 16:43:00 Test Item Value Reference Range Interpretation [...] 463) SOURCE(BEAKER) (test code = 2795) URINALYSIS [id number] 16:43:00 Test Item Value Reference Range Interpretation Comments RBC UA (BEAKER) (test code = 519) 1 /HPF WBC UA (BEAKER) (test code = 520) 5 /HPF MUCUS (BEAKER) (test code = 1574) Rare SQUAMOUS EPITHELIAL (BEAKER) (test 1 /HPF code = 516) HEMOGLOBIN AND [id number] 16:37:00 Test Item Value Reference Range Interpretation Comments HEMOGLOBIN (BEAKER) (test code = 8.1 GM/DL 13.7-17.5 L 410) HEMATOCRIT (BEAKER) (test code = 24.6 % 40.1-51.0 L 411) CALCIUM, [id number] 16:23:00 Test Item Value Reference Range Interpretation Comments CALCIUM IONIZED (BEAKER) (test 0.91 mmol/L 1.12-1.27 L code = 698) PH, BLOOD (BEAKER) (test code = 7.30 1810) BASIC METABOLIC [id number] 15:27:00 Test Item Value Reference Range Interpretation [...] S NOT APPLICABLE FOR DIALYSIS PATIEN TS. [id number] 15:26:00 Test Item Value Reference Range Interpretation Comments PHOSPHORUS (BEAKER) (test code = 4.5 mg/dL 2.3-4.7 604) [id number] 15:26:00 Test Item Value Reference Range Interpretation Comments MAGNESIUM (BEAKER) (test code = 1.6 mg/dL 1.6-2.6 627) BASIC METABOLIC [id number] 15:26:00 Test Item Value Reference Range Interpretation [...] DIALYSIS PATIEN TS. LACTIC ACID, ARTERIAL, WHOLE [id number] 15:20:00 Test Item Value Reference Range Interpretation Comments LACTATE BLOOD ARTERIAL (2) 9.1 mmol/L 0.5-2.2 H (BEAKER) (test code = 2874) Effective 02/25/2016: Units/Reference Range ChangeNew: 0.5-2.2 mmol/L Previous: 5- 20 mg/[id number] 15:14:00 Test Item Value Reference Range Interpretation Comments FIBRINOGEN LEVEL (BEAKER) (test 158 mg/dl 225-434 L code = 658) [id number] 15:10:00 Test Item Value Reference Range Interpretation [...] 2.5-3.5 for patients with mechanical heart valves.PROTHROMBIN TIME/[id number] 15:09:00 Test Item Value Reference Range Interpretation Comments PROTIME (BEAKER) (test code = 22.1 seconds 11.7-14.7 H 759) INR (BEAKER) (test code = 370) 1.9 <=5.9 RECOMMENDED COUMADIN/WARFARIN INR THERAPY RANGESSTANDARD DOSE: 2.0 - 3.0 Includes: PROPHYLAXIS for venous thrombosis, systemic embolization; TREATMENT for venous thrombosis and/or pulmonary embolus.HIGH RISK: Target INR is 2.5-3.5 for patients with mechanical heart valves.PROTHROMBIN TIME/[id number] 15:08:00 Test Item Value Reference Range Interpretation [...] mechanical heart valves.CBC W/PLT COUNT & AUTO [id number] 15:07:00 Test Item Value Reference Range Interpretation [...] (BEAKER) (test code = 2801) BLOOD GAS, [id number] 14:58:00 Test Item Value Reference Range Interpretation [...] code = 1819) 40.0 % HEMOGLOBIN AND [id number] 14:56:00 Test Item Value Reference Range Interpretation Comments HEMOGLOBIN (BEAKER) (test code = 8.6 GM/DL 13.7-17.5 L 410) HEMATOCRIT (BEAKER) (test code = 25.7 % 40.1-51.0 L 411) FIBRIN SOLUBLE [id number] 13:26:00 Test Item Value Reference Range Interpretation [...] (test 0.0 % 0.0-5.0 code = 1414) [id number] 12:02:00 Test Item Value Reference Range Interpretation Comments PARTIAL THROMBOPLASTIN TIME 35.0 seconds 22.5-36.0 (BEAKER) (test code = 760) PROTHROMBIN [id number] 12:01:00 Test Item Value Reference Range Interpretation Comments PROTIME (BEAKER) (test code = 20.2 seconds 11.7-14.7 H 759) INR (BEAKER) (test code = 370) 1.7 <=5.9 RECOMMENDED COUMADIN/WARFARIN INR THERAPY RANGESSTANDARD DOSE: 2.0 - 3.0 Includes: PROPHYLAXIS for venous thrombosis, systemic embolization; TREATMENT for venous thrombosis and/or pulmonary embolus.HIGH RISK: Target INR is 2.5-3.5 for patients with mechanical heart valves.CT, [id number] 11:51:00Reason for exam:->bleeding s/p ercpFINAL REPORT ERCP, [...] MDReport Verified Date/Time: 07/07/2018 11:51:44 Reading Location: [address] Radiology Reading Room LACTIC ACID, ARTERIAL, WHOLE [id number] 11:48:00 Test Item Value Reference Range Interpretation Comments LACTATE BLOOD ARTERIAL (2) 7.4 mmol/L 0.5-2.2 H (BEAKER) (test code = 2874) Effective 02/25/2016: Units/Reference Range ChangeNew: 0.5-2.2 mmol/L Previous: 5- 20 mg/[id number] 11:36:00 Test Item Value Reference Range Interpretation [...] of thrombosis is within 95-100% range.BLOOD GAS, [id number] 11:35:00 Test Item Value Reference Range Interpretation [...] code = 1819) 40.0 % HEMOGLOBIN AND [id number] 11:27:00 Test Item Value Reference Range Interpretation Comments HEMOGLOBIN (BEAKER) (test code = 9.2 GM/DL 13.7-17.5 L 410) HEMATOCRIT (BEAKER) (test code = 28.2 % 40.1-51.0 L 411) POCT-GLUCOSE [id number] 11:22:00 Test Item Value Reference Range Interpretation Comments POC-GLUCOSE METER 240 mg/dL 70-110 H TESTED AT [place] [address] (BEAKER) (test code = GENEVIEVE DERAS [place] 1538) [address] RAD, CHEST, 1 VIEW, NON [id number] 10:14:00Reason for exam:- >intubationShould this be performed [...] MDReport Verified Date/Time: 07/07/2018 10:14:17 Reading Location: [facility] Radiology Reading Room BASIC METABOLIC [id number] 09:45:00 Test Item Value Reference Range Interpretation [...] S NOT APPLICABLE FOR DIALYSIS PATIEN TS. [id number] 09:38:00 Test Item Value Reference Range Interpretation Comments FIBRINOGEN LEVEL (BEAKER) (test 146 mg/dl 225-434 L code = 658) HEMOGLOBIN AND [id number] 09:19:00 Test Item Value Reference Range Interpretation Comments HEMOGLOBIN (BEAKER) (test code = 7.7 GM/DL 13.7-17.5 L 410) HEMATOCRIT (BEAKER) (test code = 23.4 % 40.1-51.0 L 411) BLOOD GAS, [id number] 09:18:00 Test Item Value Reference Range Interpretation [...] (BEAKER) (test code = 1819) 40.0 % [id number] 08:27:00 Test Item Value Reference Range Interpretation Comments PARTIAL THROMBOPLASTIN TIME 37.9 seconds 22.5-36.0 H (BEAKER) (test code = 760) PROTHROMBIN [id number] 08:26:00 Test Item Value Reference Range Interpretation Comments PROTIME (BEAKER) (test code = 23.5 seconds 11.7-14.7 H 759) INR (BEAKER) (test code = 370) 2.1 <=5.9 RECOMMENDED COUMADIN/WARFARIN INR THERAPY RANGESSTANDARD DOSE: 2.0 - 3.0 Includes: PROPHYLAXIS for venous thrombosis, systemic embolization; TREATMENT for venous thrombosis and/or pulmonary embolus.HIGH RISK: Target INR is 2.5-3.5 for patients with mechanical heart valves.HEMOGLOBIN AND [id number] 08:08:00 Test Item Value Reference Range Interpretation Comments HEMOGLOBIN (BEAKER) (test code = 7.7 GM/DL 13.7-17.5 L 410) HEMATOCRIT (BEAKER) (test code = 23.3 % 40.1-51.0 L 411) BASIC METABOLIC [id number] 06:32:00 Test Item Value Reference Range Interpretation [...] APPLICABLE FOR DIALYSIS PATIEN TS. Specimen slightly [id number] 06:21:00 Test Item Value Reference Range Interpretation Comments MAGNESIUM (BEAKER) (test code = 2.0 mg/dL 1.6-2.6 627) HEPATIC FUNCTION [id number] 06:21:00 Test Item Value Reference Range Interpretation [...] 347) Specimen slightly ictericLACTIC ACID, VENOUS, WHOLE [id number] 06:16:00 Test Item Value Reference Range Interpretation Comments LACTATE BLOOD VENOUS (2) (BEAKER) 2.2 mmol/L 0.5-2.2 (test code = 2872) Effective 02/25/2016: Units/Reference Range ChangeNew: 0.5-2.2 mmol/L Previous: 5- 20 mg/dLSpecimen slightly ictericHEMOGLOBIN AND [id number] 06:06:00 Test Item Value Reference Range Interpretation Comments HEMOGLOBIN (BEAKER) (test code = 10.2 GM/DL 13.7-17.5 L 410) HEMATOCRIT (BEAKER) (test code = 31.7 % 40.1-51.0 L 411) LACTIC ACID, VENOUS, WHOLE [id number] 03:14:00 Test Item Value Reference Range Interpretation Comments LACTATE BLOOD VENOUS (2) (BEAKER) 1.3 mmol/L 0.5-2.2 (test code = 2872) Effective 02/25/2016: Units/Reference Range ChangeNew: 0.5-2.2 mmol/L Previous: 5- 20 mg/dLSpecimen slightly ictericHEMOGLOBIN AND [id number] 03:08:00 Test Item Value Reference Range Interpretation Comments HEMOGLOBIN (BEAKER) (test code = 11.2 GM/DL 13.7-17.5 L 410) HEMATOCRIT (BEAKER) (test code = 34.8 % 40.1-51.0 L 411) HEMOGLOBIN AND [id number] 00:22:00 Test Item Value Reference Range Interpretation Comments HEMOGLOBIN (BEAKER) (test code = 6.8 GM/DL 13.7-17.5 L 410) HEMATOCRIT (BEAKER) (test code = 21.6 % 40.1-51.0 L 411) LACTIC ACID, VENOUS, WHOLE [id number] 23:30:00 Test Item Value Reference Range Interpretation Comments LACTATE BLOOD VENOUS 1.2 mmol/L 0.5-2.2 Specime n slightly (2) (BEAKER) (test hemolyzed code = 2872) Effective 02/25/2016: Units/Reference Range ChangeNew: 0.5-2.2 mmol/L Previous: 5- 20 mg/dLSpecimen moderately [id number] 23:08:00 Test Item Value Reference Range Interpretation Comments PROCALCITONIN (BEAKER) (test code 0.48 ng/mL <0.05 H = 3036) SEPSIS RISK (ng/mL)Low: 0.05-0.50Intermediate: 0.51-2.00High: >=2.01RAD, CHEST, 1 VIEW, NON [id number] 23:07:00Reason for exam:->abd painShould this be performed [...] versus dilated splenic flexure. Signed: Sherif Ricci MDRepsaint mary's [facility] Verified Date/Time: 07/06/2018 23:07:59 Reading Location: [address] Consult Reading Room [id number] 22:48:00 Test Item Value Reference Range Interpretation Comments LIPASE (BEAKER) (test code = 749) > U/L 8-78 H Specimen moderately [id number] 22:42:00 Test Item Value Reference Range Interpretation Comments MAGNESIUM (BEAKER) (test code = 1.9 mg/dL 1.6-2.6 627) COMPREHENSIVE METABOLIC [id number] 22:42:00 Test Item Value Reference Range Interpretation [...] Specimen moderately ictericCBC W/PLT COUNT & AUTO [id number] 22:23:00 Test Item Value Reference Range Interpretation [...] 0-1 PERCENT (BEAKER) (test code = 2801) [id number] 22:20:00 Test Item Value Reference Range Interpretation Comments PARTIAL THROMBOPLASTIN TIME 31.2 seconds 22.5-36.0 (BEAKER) (test code = 760) PROTHROMBIN [id number] 22:19:00 Test Item Value Reference Range Interpretation Comments PROTIME (BEAKER) (test code = 17.0 seconds 11.7-14.7 H 759) INR (BEAKER) (test code = 370) 1.4 <=5.9 RECOMMENDED COUMADIN/WARFARIN INR THERAPY RANGESSTANDARD DOSE: 2.0 - 3.0 Includes: PROPHYLAXIS for venous thrombosis, systemic embolization; TREATMENT for venous thrombosis and/or pulmonary embolus.HIGH RISK: Target INR is 2.5-3.5 for patients with mechanical heart valves.POCT-LACTIC ACID, [id number] 22:15:00 Test Item Value Reference Range Interpretation Comments POC-LACTIC ACID, 1.3 mmol/L 0.9-1.7 TESTED AT [facility] 6720 VENOUS (BEAKER) (test GENEVIEVE DER[place] code = 2805) [address] POCT-BLOOD GASES, [id number] 22:15:00 Test Item Value Reference Range Interpretation Comments TEMP, CELSIUS-POC 37.0 (BEAKER) (test code = 1834) FIO2-POC (BEAKER) TESTED AT [place] [address] (test code = 1835) [facility] [address] PH, VENOUS-POC 7.388 7.320-7.420 (BEAKER) (test code [...] H VENOUS-POC (BEAKER) (test code = 1847) [id number] 22:15:00 Test Item Value Reference Range Interpretation Comments POC-SODIUM (BEAKER) 136 meq/L 135-148 TESTED A T [place] [address] (test code = 1542) [facility] [address] CCMQ-[id number] 22:15:00 Test Item Value Reference Range Interpretation Comments POC-POTASSIUM 4.3 meq/L 3.6-5.5 TESTED AT [place] [address] (BEAKER) (test code [facility] [address] = 1540) DIED-[id number] 22:15:00 Test Item Value Reference Range Interpretation Comments POC-GLUCOSE (BEAKER) 147 mg/dL 70-110 H TESTED AT [place] [address] (test code = 1855) [facility] [address] POCT-CALCIUM [id number] 22:15:00 Test Item Value Reference Range Interpretation Comments POC-CALCIUM IONIZED 1.10 mmol/L 1.12-1.27 L TESTED A T [place] [address] ([facility]) (test code = GENEVIEVE [place] 1536) [address] QASC-[id number] 22:15:00 Test Item Value Reference Range Interpretation Comments POC-HEMATOCRIT 38 % 40-50 L TESTED AT [place] [address] ([facility]) (test code = [place] [address]57) [id number] 22:15:00 Test Item Value Reference Range Interpretation Comments POC-HEMOGLOBIN 12.9 g/dL 13.0-16.8 L TESTED AT [place] [address] ([facility]) (test code [place] = 1856) [address]PNELHL AT [place] [address] ALEX [facility] [address] POCT-GLUCOSE [id number] 21:38:00 Test Item Value Reference Range Interpretation Comments POC-GLUCOSE METER 138 mg/dL 70-110 H TESTED AT [place] [address] ([facility]) (test code = GENEVIEVE [place] 1538) [address] POCT-GLUCOSE [id number] 19:35:00 Test Item Value Reference Range Interpretation Comments POC-GLUCOSE METER 116 mg/dL 70-110 H TESTED AT [place] [address] ([facility]) (test code = GENEVIEVE [place] 1538) [address] PROTHROMBIN [id number] 18:18:00 Test Item Value Reference Range Interpretation Comments PROTIME ([facility]) (test code = 15.5 seconds 11.7-14.7 H 759) INR ([facility]) (test code = 370) 1.2 <=5.9 RECOMMENDED COUMADIN/WARFARIN INR THERAPY RANGESSTANDARD DOSE: 2.0 - 3.0 Includes: PROPHYLAXIS for venous thrombosis, systemic embolization; TREATMENT for venous thrombosis and/or pulmonary embolus.HIGH RISK: Target INR is 2.5-3.5 for patients with mechanical heart valves.[id number] 18:18:00 Test Item Value Reference Range Interpretation Comments PARTIAL THROMBOPLASTIN TIME 36.5 seconds 22.5-36.0 H ([facility]) (test code = 760) CBC W/PLT COUNT & AUTO [id number] 18:11:00 Test Item Value Reference Range Interpretation [...] PERCENT (BEAKER) (test code = 2801) FL, [id number] 17:27:00Reason for exam:->cbd stonesFINAL REPORT Fluoroscopy. History: Intraoperative. Findings: Radiologist was not present for the exam. Fluoroscopy was not performed by the undersigned. Please see operative/endoscopy report for details. Fluoroscopy Time: 2.5 min.One spot image was saved. IMPRESSION:Intraoperativefluoroscopy. Please see operative report for details. Signed: Steve Hernandez Verified Date/Time: 07/06/2018 17:27:55 Reading Location: [facility] Diagnostic Imaging Reading Room - [facility] 1.310.12 POCT-GLUCOSE [id number] 12:00:00 Test Item Value Reference Range Interpretation Comments POC-GLUCOSE METER 100 mg/dL 70-110 TESTED AT [place] [address] ([facility]) (test code = [facility] 1538) [address] POCT-GLUCOSE [id number] 08:03:00 Test Item Value Reference Range Interpretation Comments POC-GLUCOSE METER 116 mg/dL 70-110 H TESTED AT [place] [address] ([facility]) (test code = [facility] 1538) [address] HEPATIC FUNCTION [id number] 07:04:00 Test Item Value Reference Range Interpretation [...] 57 U/L 6-55 H 347) Specimen moderately [id number] 07:04:00 Test Item Value Reference Range Interpretation Comments MAGNESIUM (BEAKER) (test code = 2.3 mg/dL 1.6-2.6 627) BASIC METABOLIC [id number] 07:04:00 Test Item Value Reference Range Interpretation [...] APPLICABLE FOR DIALYSIS PATIEN TS. Specimen moderately [id number] 03:15:00 Test Item Value Reference Range Interpretation Comments MAGNESIUM (BEAKER) 2.5 mg/dL 1.6-2.6 Specimen slightly (test code = 627) hemolyzed BASIC METABOLIC [id number] 03:15:00 Test Item Value Reference Range Interpretation [...] DIALYSIS PATIEN TS. Specimen moderately ictericHEPATIC FUNCTION [id number] 03:15:00 Test Item Value Reference Range Interpretation [...] code = 347) hemolyzed Specimen moderately ictericPOCT-GLUCOSE [id number] 22:02:00 Test Item Value Reference Range Interpretation Comments POC-GLUCOSE METER 140 mg/dL 70-110 H TESTED AT [place] [address] ([facility]) ([facility] = [facility] 1538) [id number] POCT-GLUCOSE [id number] 16:27:00 Test Item Value Reference Range Interpretation Comments POC-GLUCOSE METER 103 mg/dL 70-110 TESTED AT [place] [address] ([facility]) (test [facility] = [facility] 1538) [address] POCT-GLUCOSE [id number] 11:55:00 Test Item Value Reference Range Interpretation Comments POC-GLUCOSE METER 123 mg/dL 70-110 H TESTED AT [place] [address] ([facility]) (test code = GENEVIEVE Bruce [facility] 1538) [address] POCT-GLUCOSE [id number] 08:13:00 Test Item Value Reference Range Interpretation Comments POC-GLUCOSE METER 116 mg/dL 70-110 H TESTED AT [facility] 6720 (BEAKER) (test code = [place] 1538) [address] [id number] 07:53:00 Test Item Value Reference Range Interpretation Comments MAGNESIUM (BEAKER) (test code = 1.9 mg/dL 1.6-2.6 627) BASIC METABOLIC [id number] 07:53:00 Test Item Value Reference Range Interpretation [...] DIALYSIS PATIEN TS. Specimen slightly ictericHEPATIC FUNCTION [id number] 07:53:00 Test Item Value Reference Range Interpretation [...] 12 U/L 6-55 347) Specimen slightly ictericPOCT-GLUCOSE [id number] 20:53:00 Test Item Value Reference Range Interpretation Comments POC-GLUCOSE METER 168 mg/dL 70-110 H TESTED AT [facility] 67 (BEBANNER) (test code = [facility] [place] 1538) [address] [id number] 17:12:00 Test Item Value Reference Range Interpretation Comments MAGNESIUM (BEAKER) (test code = 2.1 mg/dL 1.6-2.6 627) BASIC METABOLIC [id number] 17:12:00 Test Item Value Reference Range Interpretation [...] NOT APPLICABLE FOR DIALYSIS PATIEN TS. POCT-GLUCOSE [id number] 17:00:00 Test Item Value Reference Range Interpretation Comments POC-GLUCOSE METER 138 mg/dL 70-110 H TESTED AT [facility] 6720 (BEBANNER) (test code = [facility] [place] 1538) [address] POCT-GLUCOSE [id number] 12:09:00 Test Item Value Reference Range Interpretation Comments POC-GLUCOSE METER 111 mg/dL 70-110 H TESTED AT [facility] 67 (BEBANNER) (test code = [facility] [place] 1538) [address] POCT-GLUCOSE [id number] 07:30:00 Test Item Value Reference Range Interpretation Comments POC-GLUCOSE METER 102 mg/dL 70-110 TESTED AT [facility] 6720 (ASIM) (test code = [place] 1538) [address] U/S, ABDOMINAL, [id number] 07:27:00Please perform with doppler to evaluate for [...] MDReport Verified Date/Time: 07/04/2018 07:27:18 Reading Location: [place] [id number] Ultrasound Reading Room [id number] 07:12:00 Test Item Value Reference Range Interpretation Comments MAGNESIUM (BEAKER) 1.8 mg/dL 1.6-2.6 Specimen slightly (test code = 627) hemolyzed BASIC METABOLIC [id number] 07:12:00 Test Item Value Reference Range Interpretation [...] APPLICABLE FOR DIALYSIS PATIEN TS. HEPATIC FUNCTION [id number] 07:12:00 Test Item Value Reference Range Interpretation [...] slightly (test code = 347) hemolyzed PROTHROMBIN [id number] 07:11:00 Test Item Value Reference Range Interpretation Comments PROTIME (BEAKER) (test code = 16.4 seconds 11.7-14.7 H 759) INR (BEAKER) (test code = 370) 1.3 <=5.9 RECOMMENDED COUMADIN/WARFARIN INR THERAPY RANGESSTANDARD DOSE: 2.0 - 3.0 Includes: PROPHYLAXIS for venous thrombosis, systemic embolization; TREATMENT for venous thrombosis and/or pulmonary embolus.HIGH RISK: Target INR is 2.5-3.5 for patients with mechanical heart valves.POCT-GLUCOSE [id number] 20:11:00 Test Item Value Reference Range Interpretation Comments POC-GLUCOSE METER 156 mg/dL 70-110 H TESTED AT [facility] 6720 (BEAKER) (test code = [place] 1538) [address] [id number] 17:51:00 Test Item Value Reference Range Interpretation Comments MAGNESIUM (BEAKER) (test code = 1.9 mg/dL 1.6-2.6 627) BASIC METABOLIC [id number] 17:51:00 Test Item Value Reference Range Interpretation [...] mg/dL 8.4-10.2 (test code = 697) EGFR (ASIM) (test 57 mL/min/1.73 ESTIMA KIMBER GFR IS code = 1092) sq m NOT ACCURATE CREATININE CLEARANCE IN PREDICTING GLOMERULAR FILTRATION RATE . ESTIMATED GFR I S NOT APPLICABLE FOR DIALYSIS PATIEN CASSIE. POCT-GLUCOSE [id number] 16:12:00 Test Item Value Reference Range Interpretation Comments POC-GLUCOSE METER 89 mg/dL 70-110 TESTED AT [facility] 6720 (ASIM) (test code = [place] [address] 1538) U/S, DUPLEX, [id number] 15:18:00Please perform with doppler to evaluate for [...] MDReport Verified Date/Time: 07/03/2018 15:18:31 Reading Location: [facility] P006J Ultrasound Reading Room POCT-GLUCOSE [id number] 12:46:00 Test Item Value Reference Range Interpretation Comments POC-GLUCOSE METER 102 mg/dL 70-110 TESTED AT [facility] 6720 (BEAKER) (test code = GENEVIEVE [place] 1538) [address] [id number] 07:10:00 Test Item Value Reference Range Interpretation Comments PHOSPHORUS (BEAKER) (test code = 3.7 mg/dL 2.3-4.7 604) [id number] 07:10:00 Test Item Value Reference Range Interpretation Comments MAGNESIUM (BEAKER) (test code = 1.8 mg/dL 1.6-2.6 627) BASIC METABOLIC [id number] 07:10:00 Test Item Value Reference Range Interpretation [...] APPLICABLE FOR DIALYSIS PATIEN TS. HEPATIC FUNCTION [id number] 07:10:00 Test Item Value Reference Range Interpretation [...] code = 14 U/L 6-55 347) POCT-GLUCOSE [id number] 07:02:00 Test Item Value Reference Range Interpretation Comments POC-GLUCOSE METER 112 mg/dL 70-110 H TESTED AT [place] [address] (BEBANNER) (test code = [facility] 1538) [address] POCT-GLUCOSE [id number] 21:51:00 Test Item Value Reference Range Interpretation Comments POC-GLUCOSE METER 147 mg/dL 70-110 H TESTED AT [place] [address] (BEBANNER) (test code = [facility] 1538) [address] [id number] 20:05:00 Test Item Value Reference Range Interpretation Comments MAGNESIUM (BEAKER) 2.1 mg/dL 1.6-2.6 Specimen slightly (test code = 627) hemolyzed BASIC METABOLIC [id number] 20:05:00 Test Item Value Reference Range Interpretation [...] NOT APPLICABLE FOR DIALYSIS PATIEN TS. POCT-GLUCOSE [id number] 17:05:00 Test Item Value Reference Range Interpretation Comments POC-GLUCOSE METER 111 mg/dL 70-110 H TESTED AT [facility] 67 (BEBANNER) (test code = [facility] 1538) [address] POCT-GLUCOSE [id number] 11:34:00 Test Item Value Reference Range Interpretation Comments POC-GLUCOSE METER 142 mg/dL 70-110 H TESTED AT [place] [address] ([facility]) (test code = [facility] 1538) [address] POCT-GLUCOSE [id number] 07:43:00 Test Item Value Reference Range Interpretation Comments POC-GLUCOSE METER 110 mg/dL 70-110 TESTED AT [place] [address] (BEBANNER) (test code = [facility] 1538) [address] [id number] 07:13:00 Test Item Value Reference Range Interpretation Comments PHOSPHORUS (BEAKER) (test code = 4.3 mg/dL 2.3-4.7 604) [id number] 07:13:00 Test Item Value Reference Range Interpretation Comments MAGNESIUM (BEAKER) (test code = 2.0 mg/dL 1.6-2.6 627) BASIC METABOLIC [id number] 07:13:00 Test Item Value Reference Range Interpretation [...] APPLICABLE FOR DIALYSIS PATIEN TS. HEPATIC FUNCTION [id number] 07:13:00 Test Item Value Reference Range Interpretation [...] (test code = 11 U/L 6-55 347) [id number] 07:13:00 Test Item Value Reference Range Interpretation Comments LIPASE (BEAKER) (test code = 749) 21 U/L 8-78 B-TYPE NATRIURETIC FACTOR (BNP)2018-07-02 07:13:00 Test Item Value Reference Range Interpretation Comments B-TYPE NATRIURETIC PEPTIDE (BEAKER) 689 pg/mL 0-100 H (test code = 700) POCT-GLUCOSE [id number] 22:15:00 Test Item Value Reference Range Interpretation Comments POC-GLUCOSE METER 124 mg/dL 70-110 H TESTED AT [facility] 6720 (BEAKER) (test code = [place] 1538) [address] RAD, CHEST, 1 VIEW, NON [id number] 18:03:00Reason for exam:->chest painShould this be performed at the bedside?->YesFINAL REPORT AP chest HISTORY: Chest pain COMPARISON: None IMPRESSION:Status post median sternotomy. No acute skeletal findings. Cardiomegaly. Diffuse interstitial edema. Moderate right effusion. No pneumothorax. Signed: Emile Shirley Verified Date/Time: 07/01/2018 18:03:03 Reading Location: [facility] C013Y CT Body Reading Room POCT-GLUCOSE [id number] 17:04:00 Test Item Value Reference Range Interpretation Comments POC-GLUCOSE METER 146 mg/dL 70-110 H TESTED AT [place] [address] ([facility]) (test code = [employer] [facility] 1538) [address] POCT-GLUCOSE [id number] 11:52:00 Test Item Value Reference Range Interpretation Comments POC-GLUCOSE METER 163 mg/dL 70-110 H TESTED AT [place] [address] ([facility]) (test code = [employer] [facility] 1538) [address] HEMOGLOBIN [id number] 08:13:00 Test Item Value Reference Range Interpretation Comments HEMOGLOBIN A1C ([facility]) (test code = 7.1 % 4.3-6.1 H 368) POCT-GLUCOSE [id number] 08:00:00 Test Item Value Reference Range Interpretation Comments POC-GLUCOSE METER 113 mg/dL 70-110 H TESTED AT [place] [address] ([facility]) (test code = [employer] [facility] 1538) [address] TROPONIN [id number] 02:30:00 Test Item Value Reference Range Interpretation Comments TROPONIN I ([facility]) (test code = 0.03 ng/mL 0.00-0.03 397) [...] acute neurological disease, and persistent tachyarrhythmia.BASIC METABOLIC [id number] 02:24:00 Test Item Value Reference Range Interpretation [...] APPLICABLE FOR DIALYSIS PATIEN TS. HEPATIC FUNCTION [id number] 02:24:00 Test Item Value Reference Range Interpretation [...] Specimen slightly (test code = 347) hemolyzed [id number] 02:23:00 Test Item Value Reference Range Interpretation Comments PHOSPHORUS (BEAKER) (test code = 4.4 mg/dL 2.3-4.7 604) [id number] 02:23:00 Test Item Value Reference Range Interpretation Comments MAGNESIUM (BEAKER) (test code = 1.8 mg/dL 1.6-2.6 627) BASIC METABOLIC [id number] 02:23:00 Test Item Value Reference Range Interpretation [...] NOT APPLICABLE FOR DIALYSIS PATIEN TS. LIPID [id number] 02:23:00 Test Item Value Reference Range Interpretation [...] Borderline 130-159 High 160-189 Very High >=190POCT-GLUCOSE [id number] 23:01:00 Test Item Value Reference Range Interpretation Comments POC-GLUCOSE METER 143 mg/dL 70-110 H TESTED AT [place] [address] ([facility]) ([facility] = [facility] 1538) [address] TSH/FREE T4 IF [id number] 18:47:00 Test Item Value Reference Range Interpretation Comments THYROID STIMULATING HORMONE 3.50 uIU/mL 0.35-4.94 ([facility]) (test code = 772) TROPONIN [id number] 18:35:00 Test Item Value Reference Range Interpretation Comments TROPONIN I ([facility]) (test code = 0.01 ng/mL 0.00-0.03 397) [...] acidosis, acute neurological disease, and persistent tachyarrhythmia.POCT-GLUCOSE [id number] 18:18:00 Test Item Value Reference Range Interpretation Comments POC-GLUCOSE METER 149 mg/dL 70-110 H TESTED AT [place] [address] ([facility]) (test code = [facility] 1538) [address] HEMOGLOBIN AND [id number] 18:08:00 Test Item Value Reference Range Interpretation Comments HEMOGLOBIN ([facility]) (test code = 15.8 GM/DL 13.7-17.5 410) HEMATOCRIT ([facility]) (test code = 49.9 % 40.1-51.0 411) POCT-GLUCOSE [id number] 15:23:00 Test Item Value Reference Range Interpretation Comments POC-GLUCOSE METER 158 mg/dL 70-110 H TESTED AT [place] [address] ([facility]) (test code = [facility] 1538) [address]
--- NOTE | 2023-09-10 22:27 | RAD REPORT ---
EXAM DESCRIPTION: Kar Single View09/10/2023 10:06 pm CLINICAL HISTORY: Shortness breath COMPARISON: 2021 FINDINGS: Mild bilateral interstitial lung opacities Heart is mildly to moderately enlarged. Postsurgical changes involve the chest IMPRESSION: These findings probably indicate mild CHF
[2023-09-10 22:38] LABS: Hematocrit 44.2 % (39.6-49.0); MCV 88.5 fL (80-100); MPV 7.7 fL (7.6-11.3); Platelets 181 thou/uL (152-406); RBC Red Blood Cell Count 4.99 M/uL (4.33-5.43)
[2023-09-10 23:08] LABS: Potassium 3.6 mEq/L (3.5-5.1)
[2023-09-10 23:28] LABS: Troponin High Sensitivity 73.1 pg/mL (<58.9)
--- NOTE | 2023-09-10 23:45 | ER ---
Nurse's Notes [facility] Name: Chicho Weldon Age: 63 yrs Sex: Male : 1960 Arrival Date: 09/10/2023 Time: 21:36 Bed 7 Private MD: Diagnosis: Heart failure, unspecified Presentation: 09/10 21:37 Chief complaint: EMS states: INCREASING BILATERAL LOWER EXT AND SOB FOR 2 DAYS. DENIES rv CP. Coronavirus screen: At this time, the client does not indicate any symptoms associated with coronavirus-19. Ebola Screen: No symptoms or risks identified at this time. Initial Sepsis Screen: Does the patient meet any 2 criteria? No. Patient's initial sepsis screen is negative. Does the patient have a suspected source of infection? No. Patient's initial sepsis screen is negative. Risk Assessment: Do you want to hurt yourself or someone else? Patient reports no desire to harm self or others. Onset of symptoms was September 10, 2023. 21:37 Method Of Arrival: EMS: [facility] rv 21:37 Acuity: AMANDA 2 rv Triage Assessment: 21:39 General: Appears comfortable, Behavior is calm, cooperative. Pain: Denies pain. Neuro: rv Level of Consciousness is awake, alert, obeys commands, Oriented to person, place, time, situation. Cardiovascular: Capillary refill < 3 seconds Patient's skin is warm and dry. Respiratory: Reports shortness of breath at rest Airway is patent Respiratory effort is even, unlabored, Breath sounds are clear bilaterally. GI: Abdomen is round non-distended. : No signs and/or symptoms were reported regarding the genitourinary system. Derm: Skin is intact. Historical: - Allergies: 21:39 Iodine; rv 21:39 SEAFOOD; rv - PMHx: 21:39 CABG; Colitis; diabetes- resolved; gastric cardiac distress; Hypertension; Kidney rv stones; Myocardial infarction; pleurasy; prostate hypertrophy; syncope; vasovagal; - PSHx: 21:39 Coronary artery bypass graft; Stented artery; rv - Immunization history:: Adult Immunizations up to date. - Social history:: Smoking status: Patient denies any tobacco usage or history of. Screenin:41 [facility] ED Fall Risk Assessment (Adult) History of falling in the last 3 months, rv including since admission No falls in past 3 months (0 pts) Score/Fall Risk Level 0 - 2 = Low Risk Oriented to surroundings, Maintained a safe environment, Educated pt \T\ family on fall prevention, incl call for assistance when getting out of bed, Assessed \T\ reinforced patient's understanding of fall precautions, Provided non-skid footwear. Abuse screen: Denies threats or abuse. Denies injuries from another. Nutritional screening: No deficits noted. Tuberculosis screening: No symptoms or risk factors identified. Assessment: 22:36 General: Appears in no apparent distress. Behavior is calm, cooperative, appropriate la4 for age. Pain: Denies pain. Neuro: No deficits noted. Miller Agitation-Sedation Scale (RASS): 0 - Alert and Calm Level of Consciousness is awake, alert, obeys commands, Oriented to person, place, time, situation, Major Assembly Lineman are equal bilaterally. Cardiovascular: Heart tones S1 S2 Capillary refill < 3 seconds is brisk Patient's skin is warm and dry. Pulses are all present. Edema is 3+ to left midcalf, left ankle, left foot, left toes, right midcalf, right ankle, right foot and right toes Rhythm is regular. Vital Signs: 21:37 BP 196 / 124; Pulse 103; Resp 24; Temp 98; Pulse Ox 98% on 2 lpm NC; Weight 102.51 kg; rv Height 5 ft. 6 in. ; 22:36 BP 149 / 103; Pulse 85; Resp 22; Pulse Ox 99% on 2 lpm NC; la4 19 00:54 BP 169 / 102; Pulse 77; Resp 20 S; Pulse Ox 99% on R/A; la4 18 21:37 Body Mass Index 36.48 (102.51 kg, 167.64 cm) rv Vitals: 1118 22:36 Cardiac Rhythm Assessment Regular. la4 Sydney Coma Score: 22:36 Eye Response: spontaneous(4). Motor Response: obeys commands(6). Verbal Response: la4 oriented(5). Total: 15. ED Course: 21:37 Patient arrived in ED. rv 21:38 Abhijeet Jolly MD is Attending Physician. ec2 21:39 Triage completed. rv 21:39 Arm band placed on right wrist. rv 21:40 No provider procedures requiring assistance completed. rv 21:40 Inserted saline lock: 18 gauge in right forearm, using aseptic technique. Blood rv collected. 21:41 Patient has correct armband on for positive identification. Client placed on continuous rv cardiac and pulse oximetry monitoring. NIBP monitoring applied. monitoring manager on. 22:07 XRAY Chest (1 view) In Process Unspecified. EDMS 22:32 Amanda Roger, RN is Primary Nurse. la4 22:35 Placed in gown. Bed in low position. Call light in reach. Side rails up X2. Door wm closed. Lights dimmed. Client placed on continuous cardiac and pulse oximetry monitoring. NIBP monitoring applied. monitoring manager on. 22:35 Basic Metabolic Panel Sent. wm 22:35 CBC with Diff Sent. wm 22:35 NT PRO-BNP Sent. 22:35 Troponin HS Sent. 22:36 Provided Education on: plan of care. la4 22:36 Maintain EMS IV. Dressing intact. Good blood return noted. Site clean \T\ dry. Gauge \T\ la 4 site: 18 gauge piv. IV. 22:49 EKG done, by ED staff, reviewed by Abhijeet Jolly MD. 23:45 Magalys Sotelo MD is Hospitalizing Provider. ec2 09/11 00:47 Awaiting: attempted to call report Balaji and SAIGE not available at this time and will la4 call back to report. 00:53 Patient admitted, IV remains in place. la4 Administered Medications: 00:11 Drug: Furosemide IVP 80 mg IVP once; give over 2 minutes Route: IVP; Site: right wrist; la4 00:54 Follow up: BP 169 / 102; Pulse 77 bpm; Resp 20 bpm Spontaneous; Pulse Ox 99% RA; la4 Response: No adverse reaction Medication: 09/10 21:41 VIS not applicable for this client. rv Outcome: 23:45 Decision to Hospitalize by Provider. ec2 09/11 00:47 Admitted to Tele la4 Condition: stable Instructed on the need for admit, 00:53 Admitted to Tele via wheelchair, room 407, with chart, Report called to Balaji hummel4 01:12 Patient left the ED. la4 Signatures: Dispatcher [employer] Randy Villar RN RN rv Verna Perry Abhijeet Jolly MD MD ec2 Roger, La'Gabby, RN RN la4
--- NOTE | 2023-09-10 23:46 | EDPHYS ---
Physician Documentation [facility] Name: Chicho Weldon Age: 63 yrs Sex: Male : 1960 Arrival Date: 09/10/2023 Time: 21:36 Bed 7 Private MD: ED Physician Abhijeet Jolly HPI: 09/10 22:06 This 63 yrs old Male presents to ER via EMS with complaints of sob, LE edema. ec2 22:06 Patient arrives today for evaluation of progressive shortness of breath and lower ec2 extremity edema. Patient reports that he has a history of heart failure, history of previous bypass, arrives today due to concern for worsening bilateral lower extremity edema that has been progressive throughout the week however will prompted evaluation today specifically is that he had noted some shortness of breath. Patient with a history of heart failure however is not on a diuretic regularly, previously was on Bumex over 1.5 years ago. Patient reports no chest pain.. Historical: - Allergies: 21:39 Iodine; rv 21:39 SEAFOOD; rv - PMHx: 21:39 CABG; Colitis; diabetes- resolved; gastric cardiac distress; Hypertension; Kidney rv stones; Myocardial infarction; pleurasy; prostate hypertrophy; syncope; vasovagal; - PSHx: 21:39 Coronary artery bypass graft; Stented artery; rv - Immunization history:: Adult Immunizations up to date. - Social history:: Smoking status: Patient denies any tobacco usage or history of. ROS: 22:06 Constitutional: as per hpi ec2 Exam: 22:06 Constitutional: GEN: NAD Head: atraumatic Eyes: EOMI Ears: External ears are ec2 normal. CV: regular rate, 2+ lower extremity edema bilaterally LUNGS: no respiratory distress, rales in the bilateral lower lung gant ABD: non-distended SKIN: no evidence of rashes MSK: no evidence of trauma NEURO: moves all extremities equally Vital Signs: 21:37 BP 196 / 124; Pulse 103; Resp 24; Temp 98; Pulse Ox 98% on 2 lpm NC; Weight 102.51 kg; rv Height 5 ft. 6 in. ; 22:36 BP 149 / 103; Pulse 85; Resp 22; Pulse Ox 99% on 2 lpm NC; la4 09/11 00:54 BP 169 / 102; Pulse 77; Resp 20 S; Pulse Ox 99% on R/A; la4 09/10 21:37 Body Mass Index 36.48 (102.51 kg, 167.64 cm) rv Sydney Coma Score: 09/10 22:36 Eye Response: spontaneous(4). Motor Response: obeys commands(6). Verbal Response: la4 oriented(5). Total: 15. MDM: 21:38 Patient medically screened. ec2 22:06 Data reviewed: vital signs. ED course: Patient arrives today due to concern for ec2 progressive shortness of breath. Examination remarkable for tachycardic individual who has some tachypnea noted who is on oxygen for comfort with pitting edema in lower extremities and rales in bilateral lower lung gant. Will obtain lab work, EKG, chest x-ray for further assessment of the patient's complaint. Currently suspect CHF exacerbation, will suspicion for ACS, will suspicion for PE or dissection. Similarly low suspicion for infectious process.. 22:29 ED course: Chest x-ray independently reviewed and interpreted by me, shows ec2 cardiomegaly, vascular congestion. . 23:41 ED course: Patient's lab work remarkable for metabolic profile with renal dysfunction ec2 with a GFR of 60 and a creatinine of 1.34, CBC is reassuring, troponin elevated at 73, BNP elevated 2300. We will give the patient a full dose aspirin as well as a bolus of Lasix. Will admit for diuresis and volume overload. Ultimately I suspect volume overload and CHF exacerbation is a main pathology causing his symptoms today. . 09/10 21:38 Order name: Basic Metabolic Panel; Complete Time: 23:40 ec2 09/10 21:38 Order name: CBC with Diff; Complete Time: 23:40 ec2 09/10 21:38 Order name: NT PRO-BNP; Complete Time: 23:40 ec2 09/10 21:38 Order name: Troponin HS; Complete Time: 23:40 ec2 09/10 23:41 Order name: ASA ec2 09/11 00:27 Order name: Urinalysis w/ reflexes EDMS 09/10 21:38 Order name: XRAY Chest (1 view); Complete Time: 22:28 ec2 09/11 00:27 Order name: Echo with Doppler EDMS 09/10 21:38 Order name: EKG; Complete Time: 21:39 ec2 09/10 21:38 Order name: Cardiac monitoring; Complete Time: 22:32 ec2 09/10 21:38 Order name: EKG - Nurse/Tech; Complete Time: 22:32 ec2 09/10 21:38 Order name: IV Saline Lock; Complete Time: 22:34 ec2 09/10 21:38 Order name: Labs collected and sent; Complete Time: 22:34 ec2 09/10 21:38 Order name: O2 Per Protocol; Complete Time: 22:34 ec2 09/10 21:38 Order name: O2 Sat Monitoring; Complete Time: 22:34 ec2 Administered Medications: 09/11 00:11 Drug: Furosemide IVP 80 mg IVP once; give over 2 minutes Route: IVP; Site: right wrist; la4 00:54 Follow up: BP 169 / 102; Pulse 77 bpm; Resp 20 bpm Spontaneous; Pulse Ox 99% RA; la4 Response: No adverse reaction Disposition Summary: 09/10/23 23:45 Hospitalization Ordered Notes: Hospitalization Status: Inpatient Admission ec2 Provider: Magalys Sotelo ec2 [facility] Condition: Stable ec2 Problem: an acute exacerbation ec2 Symptoms: have improved ec2 Bed/Room Type: Standard ec2 Room Assignment: 407(09/11/23 00:33) kl Diagnosis - Heart failure, unspecified ec2 Forms: - Medication Reconciliation Form ec2 - SBAR form ec2 - Leadership Thank You Letter ec2 Signatures: Dispatcher [employer] Lisandra Lim RN RN kl Vicente, Ronaldo, RN RN rv Corral, Edwin, MD MD ec2 Amanda Roger RN RN la4 Corrections: (The following items were deleted from the chart) 00:33 09/10 23:45 ec2 kl
[2023-09-11] MEDS ORDERED: FUROSEMIDE 100 MG/10 ML VIAL IV ONE (00:06)
--- NOTE | 2023-09-11 00:34 | P.HP ---
Certification for Inpatient With expected LOS: <2 Midnights Patient will require the following post-hospital care: None Practitioner: I am a practitioner with admitting privileges, knowledge of patient current condition, hospital course, and medical plan of care. Services: Services provided to patient in accordance with Admission requirements found in Title 42 Section 412.3 of the Code of Federal Regulations Patient History Date of Service: 09/11/23 Reason for admission: CHF exacerbation History of Present Illness: Mr. Weldon is a 63-year-old male with a history of CAD, hypertension, diabetes type 2 known insulin-dependent, presented to ER via EMS with complaints of shortness of breath, lower extremity edema. Patient reports that he has a history of heart failure, history of previous bypass surgery comes to the ER with a concern for worsening bilateral lower extremity edema for last 1 week. He started having shortness of breath today and he decided to come to the emergency room. Patient was patient report that he was not on diuretic therapy for last few years. Patient denies chest pain, chest discomfort or palpitation. Patient denies fever chills or weight loss, patient denies abdominal pain nausea or vomiting. ED course Vital signs blood pressure 196/124, pulse 103 on, 20 respiration 24, temperature 98, pulse ox 98% on 2 L/min via nasal cannula. Patient examination remarkable for tachycardia who has some tachypnea started on oxygen in the ER. Patient has pitting edema on lower extremities and Rales on the bilateral lower lung gant. Chest x-ray shows cardiomegaly, vascular congestion. Patient lab work remarkable for low GFR 60 and creatinine 1.34, CBC is within normal limits, troponin elevated at 73, BMP BNP elevated at 2338. Patient was given 80 mg IV Lasix in the emergency room during . Admitting the patient the diagnosis of CHF Exacerbation, volume overload. Allergies fish derived Allergy (Severe, Verified 08/12/18 21:09) Shortness of breath iodine Allergy (Severe, Verified 08/12/18 21:09) Shortness of breath Shellfish Allergy (Severe, Verified 08/12/18 21:09) Shortness of breath seafood Allergy (Uncoded 08/12/18 21:09) Shortness of breath Home medications list reviewed: Yes Home Medications: Unobtainable 02/28/22 - Past Medical/Surgical History Diabetic: Yes -: Hypertension -: Myocardial Infarction -: Chronic systolic congestive heart failure -: Diabetes mellitus type 2 -: CAD s/p three-vessel CABG 2013 -: Pericarditis -: Kidney Stones -: Gastric Cardiac Distress/Vasovagal -: Pericarditis -: Hyperlipidemia -: CHF -: Cholecystectomy -: CABG 2013 -: Heart stent 2019 Psychosocial/ Personal History: Patient is disabled, 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 - Family History Father -: Heart disease, GI disease, Diabetes, Kidney disease Mother -: Other (see notes) Notes: Alzheimers - Social History Alcohol use: No CD- Drugs: No Caffeine use: Yes Review of Systems 10-point ROS is otherwise unremarkable Physical Examination - Physical Exam General: Alert, Oriented x3 HEENT: Atraumatic, Normocephalic, PERRLA Neck: Supple, 2+ carotid pulse no bruit Respiratory: Clear to auscultation bilaterally, Normal air movement, Other ( ) Cardiovascular: Normal pulses, Normal S1 S2, Edema (Bilateral lower extremity edema 2) Capillary refill: <2 Seconds Gastrointestinal: Normal bowel sounds, Soft and benign Musculoskeletal: No clubbing, Swelling (Lower extremity edema) Integumentary: No rashes, No breakdown Neurological: Normal speech, Normal tone, Normal affect - Studies Laboratory Data (last 24 hrs) 09/10/23 09/10/23 22:25 22:25 WBC 7.60 Hgb 14.6 Hct 44.2 Plt Count 181 Sodium 140 Potassium 3.6 BUN 28 H Creatinine 1.34 H Glucose 123 H Assessment and Plan - Problems (Diagnosis) (1) CHF exacerbation Current Visit: Yes Status: Acute Plan: -Acute on Chronic Decompensated Systolic/Diastolic Congestive Heart Failure with unknown Ejection Fraction -Patient presents with symptoms of shortness of breath, dyspnea on exertion, lower extremity edema, and orthopnea. -On exam, patient demonstrates pulmonary Rales, bilateral lower extremity edema. We willl admit for diuresis and medical optimization. - Ordered transthoracic echocardiogram - Diuresis with Lasix 40 IV twice daily - Continue home meds - Daily weights - Strict I/O - Cardiac diet, 2 L fluid restriction, 2 g Na restriction Qualifiers: Heart failure type: unspecified Qualified Code(s): I50.9 - Heart failure, unspecified (2) Hypertension Current Visit: Yes Status: Chronic Plan: Chronic, uncontrolled Patient did not take any antihypertensive medication, patient has received Lasix 80 mg IV x1 in the ER and we are going to continue 40 mg IV twice daily We will continue to monitor the blood pressure closely Patient is admitted to the floor Low-salt diet Fluid restriction 1.5 L/day Qualifiers: Hypertension type: primary hypertension Qualified Code(s): I10 - Essential (primary) hypertension (3) CAD (coronary artery disease) Current Visit: Yes Status: Chronic Plan: Chronic controlled on Plavix 75 mg p.o. daily and Lipitor at home History of CABG 2013 Patient denies chest pain or chest discomfort Initial troponin is 73.1, trend troponin We will consult cloth printing inspector if troponin continue to increase Discussed the case with the hospitalist Dr. Sosa Qualifiers: Coronary Disease-Associated Artery/Lesion type: bypass graft Associated angina: without angina (4) Hyperlipidemia Current Visit: Yes Status: Chronic Plan: Chronic, controlled on statins at home We will resume home medication as appropriate Check his lipid panel in the morning Low-fat low-cholesterol diet Qualifiers: Hyperlipidemia type: unspecified Qualified Code(s): E78.5 - Hyperlipidemia, unspecified Discharge Plan: Home Plan to discharge in: 48 Hours - Advance Directives Does patient have a Living Will: No Does patient have a Durable POA for Healthcare: No - Code Status/Comfort Care Code Status Assessed: Yes (Full code) Code Status: Full Code Physician Review: Patient Assessed, Agree with Above Assessment and Plan Critical Care: No Time Spent Managing Pts Care (In Minutes): 55 (Minutes)
[2023-09-11] MEDS ORDERED: ALBUTEROL 2.5 MG/3 ML NEB SOL NEB PRN (00:53)
[2023-09-11] MEDS ORDERED: IPRATROPIUM BROM 0.5MG/2.5ML NEB PRN (00:53)
[2023-09-11] MEDS ORDERED: ACETAMINOPHEN 500 MG TAB PO PRN (00:53)
[2023-09-11 03:09] LABS: Magnesium 1.7 mg/dL (1.6-2.4); Thyroid Stimulating Hormone 5.49 uIU/mL (0.358-3.740)
[2023-09-11 03:10] LABS: Troponin High Sensitivity 74.1 pg/mL (<58.9)
[2023-09-11] MEDS ORDERED: MAGNESIUM SULFATE 1 gm IVPB 1 GM/100 ML BAG IV ONE (03:48)
[2023-09-11] MEDS ORDERED: POTASSIUM CL SA 10 MEQ TAB PO ONE (03:49)
[2023-09-11 04:51] VITALS: BMI 36.4
[2023-09-11 06:31] LABS: Specific Gravity 1.006 (1.005-1.030); Urine Bilirubin NEGATIVE (Negative); Urine Blood Negative (Negative); Urine Clarity Clear (Clear); Urine Color Colorless (Yellow); Urine Glucose NEGATIVE (Negative); Urine Protein NEGATIVE (Negative); Urine Urobilinogen Normal (Normal)
[2023-09-11] MEDS: INSULIN REGULAR (HUMAN) 100 UNIT/ML SQ SCH ×4 (07:30→21:00)
[2023-09-11] MEDS: FUROSEMIDE 20 MG/ 2ML VIAL IV SCH ×2 (08:53→17:00)
[2023-09-11] MEDS: ENOXAPARIN 40 MG/0.4 ML SQ SCH (08:54)
--- NOTE | 2023-09-11 17:58 | P.PN ---
Date of Service: 09/11/23 Patient seen and examined. He states his shortness of breath has significantly improved Lower extremity edema has improved. He feels he is not back to baseline yet. Plan: Continue diuresis with IV Lasix Patient reports noncompliance with cardiology follow-up and he was told by a physician to stop taking his Lasix about 2 years ago Most recent echocardiogram was 2 years. He stated he has been fine since then until the last few days when he started experiencing shortness of breath and lower extremity swelling. Obtain echocardiogram. Troponin trended flat. No ACS. Cardiology consult.
[2023-09-12 04:14] LABS: MCV 88.7 fL (80-100); MPV 7.8 fL (7.6-11.3); Platelets 182 thou/uL (152-406); RBC Red Blood Cell Count 4.96 M/uL (4.33-5.43)
[2023-09-12 04:41] LABS: Magnesium 1.8 mg/dL (1.6-2.4); Phosphorus 4.1 mg/dL (2.5-4.9); Potassium 3.5 mEq/L (3.5-5.1)
[2023-09-12] MEDS: INSULIN REGULAR (HUMAN) 100 UNIT/ML SQ SCH ×3 (07:30→16:30)
[2023-09-12] MEDS ORDERED: ATORVASTATIN 40 MG TAB PO SCH (09:00)
[2023-09-12] MEDS ORDERED: CLOPIDOGREL 75 MG TABLET PO SCH (09:00)
[2023-09-12] MEDS: ENOXAPARIN 40 MG/0.4 ML SQ SCH ×2 (09:00→09:28)
[2023-09-12] MEDS ORDERED: MAGNESIUM SULFATE 1 gm IVPB 1 GM/100 ML BAG IV ONE (09:00)
[2023-09-12] MEDS ORDERED: POTASSIUM CL SA 10 MEQ TAB PO ONE (09:00)
--- NOTE | 2023-09-12 09:14 | RAD REPORT ---
EXAM DESCRIPTION: Kar Single View09/12/2023 4:28 am CLINICAL HISTORY: Chest pain COMPARISON: September 10, 2023 FINDINGS: The bilateral pulmonary opacities have resolved Heart remains enlarged. Postsurgical changes involve the chest IMPRESSION: Resolution in CHF
[2023-09-12] MEDS: FUROSEMIDE 20 MG/ 2ML VIAL IV SCH ×2 (09:27→16:56)
[2023-09-12 09:31] VITALS: O2SAT 98
[2023-09-12] MEDS ORDERED: ALBUTEROL 2.5 MG/3 ML NEB SOL NEB PRN (11:00)
[2023-09-12] MEDS ORDERED: IPRATROPIUM BROM 0.5MG/2.5ML NEB PRN (12:00)
[2023-09-12 16:46] VITALS: BP 139/73; TEMP 97.2
--- NOTE | 2023-09-12 17:06 | P.DS ---
Admission Date: 09/11/23 Discharge Date: 09/12/23 Disposition: ROUTINE DISCHARGE Discharge Condition: FAIR Reason for Admission: CHF exacerbation - Problems (1) Acute on chronic diastolic heart failure Current Visit: Yes Status: Acute (2) Chronic kidney disease, stage III (moderate) Current Visit: Yes Status: Acute (3) CAD (coronary artery disease) Current Visit: Yes Status: Chronic Qualifiers: Coronary Disease-Associated Artery/Lesion type: bypass graft Associated angina: without angina (4) DM2 (diabetes mellitus, type 2) Current Visit: No Status: Acute Qualifiers: Diabetes mellitus collarette separator insulin use: with collarette separator use Diabetes mellitus complication status: without complication Qualified Code(s): E11.9 - Type 2 diabetes mellitus without complications; Z79.4 - detention (current) use of insulin (5) Pulmonary hypertension Onset Date: 08/15/18 Current Visit: No Status: Acute Brief History of Present Illness: Mr. Weldon is a 63-year-old male with a history of CAD, hypertension, diabetes type 2 known insulin-dependent, presented to ER via EMS with complaints of shortness of breath, lower extremity edema of 1 week duration. Patient reports that he has a history of heart failure, history of previous bypass surgery. Patient was patient report that he was told to stop taking his diuretic a couple of years ago. He denied any chest pain, chest discomfort or palpitation. Patient denied fever chills or weight loss, patient denies abdominal pain nausea or vomiting. ED course Vital signs blood pressure 196/124, pulse 103 on, 20 respiration 24, temperature 98, pulse ox 98% on 2 L/min via nasal cannula. Chest x-ray showed cardiomegaly, vascular congestion. Patient lab work remarkable for low GFR 60 and creatinine 1.34, CBC is within normal limits, troponin elevated at 73, BMP BNP elevated at 2338. Patient was given 80 mg IV Lasix in the emergency room and admitted for further management. Hospital Course: Patient admitted to the medical floor and treated with IV Lasix. His shortness of breath resolved and his lower extremity edema improved. Repeat chest x-ray showed resolution of the CHF pattern. Echocardiogram was done and patient was evaluated by cardiology-Dr. Elizalde. His vitals were stable. His troponin was mildly elevated but trended flat indicating demand ischemia. Patient seen pacing in the hallway. He has clinically improved and deemed stable for discharge. He will follow-up with Dr. Elizalde as outpatient. Vital Signs/Physical Exam: Temp Pulse Resp BP Pulse Ox 97.2 F 76 16 139/73 100 09/12/23 16:00 09/12/23 16:56 09/12/23 16:00 09/12/23 16:56 09/12/23 16:00 General: Alert, In no apparent distress, Oriented x3 HEENT: Mucous membr. moist/pink Neck: Supple, JVD not distended Respiratory: Clear to auscultation bilaterally, Normal air movement Cardiovascular: Regular rate/rhythm, Normal S1 S2, Edema (Trace bilateral lower extremity edema) Gastrointestinal: Normal bowel sounds, Soft and benign, Non-distended, No tenderness Musculoskeletal: No swelling Integumentary: No rashes, No cyanosis Neurological: Normal strength at 5/5 x4 extr Laboratory Data at Discharge: WBC 8.20 thou/uL (4.3-10.9) 09/12/23 03:32 Hgb 15.0 g/dL (13.6-17.9) 09/12/23 03:32 Hct 44.0 % (39.6-49.0) 09/12/23 03:32 Plt Count 182 thou/uL (152-406) 09/12/23 03:32 Sodium 140 mEq/L (136-145) 09/12/23 03:32 Potassium 3.5 mEq/L (3.5-5.1) 09/12/23 03:32 BUN 27 mg/dL (7-18) H 09/12/23 03:32 Creatinine 1.43 mg/dL (0.70-1.30) H 09/12/23 03:32 Glucose 104 mg/dL (74-106) 09/12/23 03:32 Phosphorus 4.1 mg/dL (2.5-4.9) 09/12/23 03:32 Magnesium 1.8 mg/dL (1.6-2.4) 09/12/23 03:32 Triglycerides 81 mg/dL (<150) 09/12/23 03:32 Cholesterol 106 mg/dL (<200) 09/12/23 03:32 HDL Cholesterol 47 mg/dL (40-60) 09/12/23 03:32 Cholesterol/HDL Ratio 2.26 11/20/23 03:32 Home Medications: Atorvastatin Calcium [Lipitor] 1 tab PO DAILY 09/11/23 Clopidogrel Bisulfate [Plavix*] 1 tab PO DAILY 09/11/23 Furosemide [Lasix] 20 mg PO DAILY #30 tab 09/12/23 carvediloL [Coreg] 3.125 mg PO BID #60 tab 09/12/23 New Medications: carvediloL [Coreg] 3.125 mg PO BID #60 tab Furosemide [Lasix] 20 mg PO DAILY #30 tab Diet: AHA Activity: Ad stephon Followup: Navi Elizalde MD [ACTIVE - CAN ADMIT] - (2-3 weeks) Time spent managing pt's care (in minutes): 32
--- NOTE | 2023-09-13 11:33 | ECHO ---
HEIGHT: 5 ft 6 in WEIGHT: 226 lb 0 oz DATE OF STUDY: 09/12/[address]: Ata Calix NP 2-DIMENSIONAL: YES M.MODE: YES DOPPLER: YES COLOR FLOW: YES TDS: PORTABLE: YES DEFINITY: BUBBLE STUDY: DIAGNOSIS: CONGESTIVE HEART FAILURE CARDIAC HISTORY: CATHERIZATION: YES SURGERY: YES PROSTHETIC VALVE: NO PACEMAKER: NO MEASUREMENTS (cm) DIASTOLIC (NORMALS) SYSTOLIC (NORMALS) IVSd 1.1 (0.6-1.2) LA Diam 4.0 (1.9-4.0) LVEF 40-45% LVIDd 5.8 (3.5-5.7) LVIDs 5.1 (2.0-3.5) %FS LVPWd 1.2 (0.6-1.2) Ao Diam 2.6 (2.0-3.7) 2 DIMENSIONAL ASSESSMENT: RIGHT ATRIUM: NORMAL LEFT ATRIUM: ENLARGED RIGHT VENTRICLE: NORMAL LEFT VENTRICLE: DILATED LEFT VENTRICLE TRICUSPID VALVE: MILD TRICUSPID REGURGITATION MITRAL VALVE: NORMAL PULMONIC VALVE: MILD PULMONIC INSUFFICIENCY AORTIC VALVE: MILD AORTIC INSUFFICIENCY PERICARDIAL EFFUSION: NONE AORTIC ROOT: NORMAL LEFT VENTRICULAR WALL MOTION: MILD GLOBAL HYPOKINESIS DOPPLER/COLOR FLOW: SEE BELOW COMMENTS: 1. MILDLY DEPRESSED LEFT VENTRICUALR EJECTION FRACTION 40-45% 2. MILD GLOBAL HYPOKINESIS 3. LEFT ATRIAL ENLARGEMENT 4. SEVERE DIASTOLIC DYSFUNCTION 5. SEVERE PULMONARY HYPERTENSION WITH RIGHT VENTRICULAR SYSTOLIC PRESSURE GREATER THAN 60 mmHg TECHNOLOGIST: KEATON RIVERA
--- NOTE | 2023-09-14 17:03 | EKG ---
Test Date: 2023-09-11 Test Time: 03:59:02 Production Analyst: XI MEASUREMENT RESULTS: Intervals: Rate: 73 MA: 224 QRSD: 190 QT: 492 QTc: 542 [place]: P: 74 MA: 224 QRS: 103 T: -18 INTERPRETIVE STATEMENTS: Sinus rhythm with 1st degree AV block with frequent premature ventricular complexes Rightward axis Left bundle branch block Abnormal ECG Compared to ECG 09/10/2023 22:44:26 Fusion complex(es) no longer present Electronically Signed On 09-14-23 16:54:36 [employer] by Navi Elizalde
--- NOTE | 2023-09-14 17:04 | EKG ---
Test Date: 2023-09-10 Test Time: 22:44:26 Time Study Clerk: MEASUREMENT RESULTS: Intervals: Rate: 81 NE: 220 QRSD: 188 QT: 454 QTc: 527 [place]: P: 67 NE: 220 QRS: 110 T: -65 INTERPRETIVE STATEMENTS: Sinus rhythm with 1st degree AV block with frequent premature ventricular complexes and fusion complexes Right axis deviation Left bundle branch block Abnormal ECG Compared to ECG 02/28/2022 11:52:35 Fusion complex(es) now present Ventricular premature complex(es) now present Right-axis deviation now present Left bundle-branch block now present Sinus bradycardia no longer present Myocardial infarct finding no longer present T-wave abnormality no longer present Possible ischemia no longer present Electronically Signed On 09-14-23 16:54:49 [employer] by Navi Elizalde
== END 2023-09-12 18:00 | disposition home or self-care (01) | DRG 291 ==
LOC: ER 21:36 → ERHOLD 09-11 00:16 → 4TH 09-11 00:51
PROVIDERS: ADMIT Hospitalist; ATTEND Internal Medicine
DX: I13.0 Hypertensive heart and chronic kidney disease with heart failure and stage 1 through stage 4 chronic kidney disease, or unspecified chronic kidney disease (principal); I50.43 Acute on chronic combined systolic (congestive) and diastolic (congestive) heart failure; N18.30 Chronic kidney disease, stage 3 unspecified; E11.22 Type 2 diabetes mellitus with diabetic chronic kidney disease; E78.5 Hyperlipidemia, unspecified; I27.20 Pulmonary hypertension, unspecified; I25.2 Old myocardial infarction; Z95.1 Presence of aortocoronary bypass graft; Z95.5 Presence of coronary angioplasty implant and graft; Z79.4 Long term (current) use of insulin; Z90.49 Acquired absence of other specified parts of digestive tract; Z79.02 Long term (current) use of antithrombotics/antiplatelets; Z91.013 Allergy to seafood; Z91.048 Other nonmedicinal substance allergy status; Z79.899 Other long term (current) drug therapy
CPT/HCPCS: 36415; 71045; 80048; 80061; 80179; 81003; 82947; 83735; 83880; 84100; 84439; 84443; 84484; 85025; 93005; 93306; 94760; 96374; 99285; J1650; J1940; J3475

== ENCOUNTER 2025-06-02 23:50 | Inpatient (IN) | payer OTHER, SELFPAY ==
[2025-06-03 00:36] LABS: Absolute Lymphocytes (CBC) 1.7 K/uL (0.7-4.9); Hematocrit 44.9 % (39.6-49.0); Hemoglobin 14.9 g/dL (13.6-17.9); MCH 29.0 pg (27.0-35.0); MCHC 33.2 g/dL (32.0-36.0); MCV 87.3 fL (80-100); MPV 8.2 fL (7.6-11.3); Nucleated RBC Absolute Count 0.0 (0-0); Nucleated Red Blood Cells % 0.1 % (0-0); RBC Red Blood Cell Count 5.15 M/uL (4.33-5.43); White Blood Count 6.00 thou/uL (4.3-10.9)
[2025-06-03 00:39] LABS: Anion Gap 12.7 mEq/L (5.0-15.0); BUN Blood Urea Nitrogen 21.0 mg/dL (7-18); Glucose Level 133.0 mg/dL (74-106); Magnesium 1.5 mg/dL (1.6-2.4); NT PRO-BNP 2505.0 pg/mL (<125); Potassium 3.7 mEq/L (3.5-5.1); Troponin High Sensitivity 44.4 pg/mL (<58.9)
--- NOTE | 2025-06-03 00:52 | EDPHYS ---
Physician Documentation [facility] Name: Chicho Weldon Age: 65 yrs Sex: Male : 1960 Arrival Date: 06/02/2025 Time: 23:50 Bed 17 Private MD: ED Physician Aram Harris HPI: 06/02 23:58 This 65 yrs old Male presents to ER via Unassigned with complaints of Breathing kb Difficulty, Swelling of Lower Extremity. 23:58 Pt is a 65 year old male who presents for shortness of breath and swelling. States the kb edema has been intermittent for the last 3 weeks, then got worse over the last few days. Reports shortness of breath has been ongoing for a couple of days, worse today. Denies cough, fever. . Historical: - Allergies: 06/03 00:16 Iodine; ss12 00:16 SEAFOOD; ss12 - Home Meds: 00:17 atorvastatin oral daily [Active]; clopidogrel oral [Active]; aspirin Oral [Active]; ss12 Lisinopril Oral [Active]; - PMHx: 00:16 CABG; Colitis; gastric cardiac distress; Hypertension; Kidney stones; Myocardial ss12 infarction; pleurasy; prostate hypertrophy; syncope; vasovagal; Diabetes mellitus; - PSHx: 00:16 Coronary artery bypass graft; Stented artery; ss12 00:17 Tonsillectomy; Cholecystectomy; ss12 - Immunization history:: Adult Immunizations up to date, . - Infectious Disease History:: Denies. - Social history:: Smoking status: Patient denies any tobacco usage or history of. ROS: 00:01 Constitutional: As per HPI kb Exam: 00:01 Constitutional: This is a well developed, well nourished patient who is awake, alert, kb and in no acute distress. Head/Face: Normocephalic, atraumatic. ENT: Moist Mucous membranes Abdomen/GI: Soft, non-tender. No distention Skin: Warm, dry with normal turgor. Normal color. MS/ Extremity: Pulses equal, no cyanosis. Neurovascular intact. Full, normal range of motion. Neuro: Awake and alert, GCS 15, oriented to person, place, time, and situation. 00:01 Cardiovascular: Heart sounds: murmur, Edema: 2+ edema to bilateral lower extremiites, 00:01 Respiratory: mild respiratory distress is noted, Respirations: labored breathing, that is mild, Breath sounds: decreased breath sounds, are located in both bases, 00:43 ECG was reviewed by the Attending Physician. Vital Signs: 06/02 23:52 BP 131 / 91; Pulse 75; Resp 24; Pulse Ox 96% on R/A; ss12 08/11 00:15 Weight 95.25 kg; Height 5 ft. 6 in. ; ss12 00:46 BP 140 / 84; Pulse 74; Resp 22; Pulse Ox 96% on R/A; ss12 01:08 BP 142 / 101; Pulse 72; Resp 22 S; Pulse Ox 97% on R/A; ss12 03:42 BP 158 / 105; Pulse 77; Resp 20; Pulse Ox 99% on 2 lpm NC; ss12 00:15 Body Mass Index 33.89 (95.25 kg, 167.64 cm) ss12 [place] Coma Score: 00:46 Eye Response: spontaneous(4). Motor Response: obeys commands(6). Verbal Response: ss12 oriented(5). Total: 15. MDM: 06/02 23:56 Medical Screening Exam initiated 06/03 00:49 Differential diagnosis: CHF exacerbation, Myocardial Infarction pulmonary edema, cad. Antibiotic administration: Not indicated, the patient does not have an appreciated infiltrate. Data reviewed: vital signs, nurses notes. Consideration of Admission/Observation Patient was admitted/placed on observation. Escalation of care including admission/observation considered. Management of patient was discussed with the following: Hospitalist: Dr Roman accepts pt for admission. Independent interpretation of the following test(s) in the Emergency Department X-Ray: My interpretation is CHF. Historians other than the Patient: EMS: [facility]. Care significantly affected by the following chronic conditions: Congestive Heart Failure. Counseling: I had a detailed discussion with the patient and/or guardian regarding the historical points, exam findings, and any diagnostic results supporting the discharge/admit diagnosis, lab results, radiology results, the need for further work-up and treatment in the hospital. 06/02 23:56 Order name: Basic Metabolic Panel; Complete Time: 00:47 kb 06/02 23:56 Order name: CBC with Diff; Complete Time: 00:47 kb 06/02 23:56 Order name: Magnesium; Complete Time: 00:47 kb 06/02 23:56 Order name: NT PRO-BNP; Complete Time: 00:47 kb 06/02 23:56 Order name: Troponin HS; Complete Time: 00:47 kb 06/03 01:05 Order name: Thyroid Stimulating Hormone EDMS 06/03 01:05 Order name: CBC with Automated Diff EDMS 06/03 01:05 Order name: CBC with Automated Diff EDMS 06/03 01:05 Order name: Comprehensive Metabolic Panel EDMS 06/03 01:05 Order name: Comprehensive Metabolic Panel EDMS 06/03 01:05 Order name: Magnesium EDMS 06/03 01:05 Order name: Magnesium EDMS 06/03 01:05 Order name: Magnesium EDMS 06/03 01:05 Order name: Magnesium EDMS 06/03 01:05 Order name: Troponin High Sensitivity EDMS 06/03 01:05 Order name: Troponin High Sensitivity EDMS 06/03 01:05 Order name: Troponin High Sensitivity EDMS 06/03 01:05 Order name: Troponin High Sensitivity EDMS 06/03 01:05 Order name: Troponin High Sensitivity EDMS 06/02 23:56 Order name: XRAY Chest (1 view) kb 06/02 23:56 Order name: EKG; Complete Time: 23:57 kb 06/03 01:05 Order name: CONS Physician Consult EDWI 06/02 23:56 Order name: Cardiac monitoring; Complete Time: 01:01 kb 08 23:56 Order name: EKG - Nurse/Tech; Complete Time: 01:01 kb 06/02 23:56 Order name: IV Saline Lock; Complete Time: 00:03 kb 06/02 23:56 Order name: Labs collected and sent; Complete Time: 00:27 kb 06/02 23:56 Order name: O2 Per Protocol; Complete Time: 00:02 kb 06/02 23:56 Order name: O2 Sat Monitoring; Complete Time: 00:03 kb EC:43 Rate is 74 beats/min. Rhythm is regular. QRS [place] is Normal. AR interval is prolonged kb at 206 msec. QRS interval is normal at 122 msec. QT interval is normal at 486 msec. Administered Medications: 01:00 Drug: Furosemide IVP 40 mg IVP once; give over 2 minutes Route: IVP; Site: left forearm;12 01:17 Follow up: Response: No adverse reaction ss12 Disposition: 01:30 I was immediately available on-site in the Emergency Department for consultation in the ms3 care of the patient. Disposition Summary: 06/03/25 00:51 Hospitalization Ordered Notes: Hospitalization Status: Observation kb Provider: Anglea Roman Location: Telemetry/MedSurg (observation) kb Condition: Stable kb Problem: an acute exacerbation kb Symptoms: are unchanged kb Bed/Room Type: Standard Room Assignment: 213(06/03/25 01:39) cg Diagnosis - Combined systolic (congestive) and diastolic (congestive) heart failure kb Forms: - Medication Reconciliation Form kb - SBAR form kb - Leadership Thank You Letter kb Signatures: Dispatcher [employer] Lisa Plummer, QUITA-C QUITA-Shahana Bright, RN RN Aram Chavis DO DO ms3 Geovanni Galarza RN RN ss12 Corrections: (The following items were deleted from the chart) 00: 00:16 PMHx: diabetes- resolved; ss12 ss12 01:39 00:51 kb cg
--- NOTE | 2025-06-03 00:52 | ER ---
Nurse's Notes [facility] Name: Chicho Weldon Age: 65 yrs Sex: Male : 1960 Arrival Date: 06/02/2025 Time: 23:50 Bed 17 Private MD: Diagnosis: Combined systolic (congestive) and diastolic (congestive) heart failure Presentation: 06/02 23:52 Chief complaint: EMS states: [facility] stated patient been having edema in lower ss12 legs for the past three weeks and shortness of breath since couple days. Coronavirus screen: Client denies travel out of the [place] in the last 14 days. Ebola Screen: Patient negative for fever greater than or equal to 101.5 degrees Fahrenheit, and additional compatible Ebola Virus Disease symptoms Patient denies exposure to infectious person. Patient denies travel to an Ebola-affected area in the 21 days before illness onset. Initial Sepsis Screen: Does the patient meet any 2 criteria? No. Patient's initial sepsis screen is negative. Does the patient have a suspected source of infection? No. Patient's initial sepsis screen is negative. Risk Assessment: Do you want to hurt yourself or someone else? Patient reports no desire to harm self or others. Onset of symptoms was May 31, 2025. 23:52 Method Of Arrival: EMS: [facility] ER12 06/03 00:13 Acuity: AMANDA 3 ss12 Triage Assessment: 06/02 23:55 General: Appears in no apparent distress. comfortable. Pain: Denies pain. EENT: No ss12 deficits noted. No signs and/or symptoms were reported regarding the EENT system. Neuro: No deficits noted. Level of Consciousness is awake, alert, Oriented to person, place, time, situation. Cardiovascular: No deficits noted. Denies chest pain, Patient's skin is warm and dry. Respiratory: Reports shortness of breath at rest on exertion Airway is patent Respiratory effort is even, unlabored, Respiratory pattern is regular, symmetrical. Respiratory: Onset: The symptoms/episode began/occurred gradually, the patient has mild shortness of breath. GI: No deficits noted. Abdomen is round distended. : No deficits noted. No signs and/or symptoms were reported regarding the genitourinary system. Derm: No deficits noted. Skin is intact, Skin is dry, Skin is pink, warm \T\ dry. normal. Musculoskeletal: Swelling present in right and left lower leg Reports edema in lower leg. 06/03 00:26 General: Behavior is calm, cooperative, quiet. 12 Historical: - Allergies: 00:16 Iodine; ss12 00:16 SEAFOOD; ss12 - Home Meds: 00:17 atorvastatin oral daily [Active]; clopidogrel oral [Active]; aspirin Oral [Active]; ss12 Lisinopril Oral [Active]; - PMHx: 00:16 CABG; Colitis; gastric cardiac distress; Hypertension; Kidney stones; Myocardial ss12 infarction; pleurasy; prostate hypertrophy; syncope; vasovagal; Diabetes mellitus; - PSHx: 00:16 Coronary artery bypass graft; Stented artery; ss12 00:17 Tonsillectomy; Cholecystectomy; ss12 - Immunization history:: Adult Immunizations up to date, . - Infectious Disease History:: Denies. - Social history:: Smoking status: Patient denies any tobacco usage or history of. Screenin:25 [facility] ED Fall Risk Assessment (Adult) History of falling in the last 3 months, ss12 including since admission No falls in past 3 months (0 pts) Confusion or Disorientation No (0 pts) Intoxicated or Sedated No (0 pts) Impaired Gait No (0 pts) Mobility Assist Device Used No (0 pt) Altered Elimination No (0 pt) Score/Fall Risk Level 0 - 2 = Low Risk Oriented to surroundings, Maintained a safe environment, Educated pt \T\ family on fall prevention, incl call for assistance when getting out of bed, Assessed \T\ reinforced patient's understanding of fall precautions. Abuse screen: Denies threats or abuse. Denies injuries from another. Nutritional screening: No deficits noted. Tuberculosis screening: No symptoms or risk factors identified. Assessment: 06/02 23:52 Reassessment: see triage assessment. 12 06/03 00:26 Cardiovascular:. Respiratory: Airway is patent Breath sounds are clear bilaterally. 12 00:26 Cardiovascular: Rhythm is sinus rhythm with unifocal PVCs. [facility] 01:08 Reassessment: Patient appears in no apparent distress at this time. Patient and/or 12 family updated on plan of care and expected duration. Pain level reassessed. Patient is alert, oriented x 3, equal unlabored respirations, skin warm/dry/pink. 02:10 Reassessment: Patient appears in no apparent distress at this time. Patient and/or ss12 family updated on plan of care and expected duration. Pain level reassessed. Patient is alert, oriented x 3, equal unlabored respirations, skin warm/dry/pink. 03:41 Reassessment: Patient appears in no apparent distress at this time. Patient and/or ss12 family updated on plan of care and expected duration. Pain level reassessed. Patient is alert, oriented x 3, equal unlabored respirations, skin warm/dry/pink. Vital Signs: 06/02 23:52 BP 131 / 91; Pulse 75; Resp 24; Pulse Ox 96% on R/A; ss12 06/03 00:15 Weight 95.25 kg; Height 5 ft. 6 in. ; ss12 00:46 BP 140 / 84; Pulse 74; Resp 22; Pulse Ox 96% on R/A; ss12 01:08 BP 142 / 101; Pulse 72; Resp 22 S; Pulse Ox 97% on R/A; ss12 03:42 BP 158 / 105; Pulse 77; Resp 20; Pulse Ox 99% on 2 lpm NC; ss12 00:15 Body Mass Index 33.89 (95.25 kg, 167.64 cm) ss12 [place] Coma Score: 00:46 Eye Response: spontaneous(4). Motor Response: obeys commands(6). Verbal Response: ss12 oriented(5). Total: 15. ED Course: 06/02 23:50 Maintain EMS IV. Dressing intact. Good blood return noted. Site clean \T\ dry. Gauge \T\ ss 12 site: 18 JB IN LEFT FOREARM. Flushed with 10 mL NS. 23:51 Patient arrived in ED. jj6 23:55 Aram Harris DO is Attending Physician. ms3 23:56 Lisa Campbell [facility]C [facility] ms3 06/03 00:06 Geovanni Galarza, RN is Primary Nurse. ss12 00:13 Triage completed. ss12 00:25 Arm band placed on right wrist. ss12 00:26 Patient has correct armband on for positive identification. ss12 00:26 Provided Education on: plan of care. ss12 00:26 No provider procedures requiring assistance completed. ss12 00:34 XRAY Chest (1 view) In Process Unspecified. EDMS 00:51 Okundaye, Ebima, MD is Hospitalizing Provider. kb 03:43 Patient admitted, IV remains in place. ss12 Administered Medications: 01:00 Drug: Furosemide IVP 40 mg IVP once; give over 2 minutes Route: IVP; Site: left forearm;ss12 01:17 Follow up: Response: No adverse reaction ss12 Medication: 00:26 VIS not applicable for this client. ss12 Outcome: 00:51 Decision to Hospitalize by Provider. kb 03:43 Admitted to Med/surg accompanied by tech, via wheelchair, room 211, ss12 03:43 Condition: stable 03:44 Patient left the ED. ss12 Signatures: Dispatcher [employer] EDMS Lisa Campbell, QUITA-C WELT WHEELER-Aram Arias DO DO ms3 Aleja Amador jj6 Geovanni Galarza RN RN ss12 Corrections: (The following items were deleted from the chart) 00:25 00:16 PMHx: diabetes- resolved; 12 ss12 00:48 00:26 Cardiovascular: Rhythm is sinus rhythm ss12 ss12
[2025-06-03] MEDS ORDERED: HYDRALAZINE HCL 20 MG/ML VIAL IV PRN (00:58)
[2025-06-03] MEDS ORDERED: MELATONIN 5 MG TABLET PO PRN (00:58)
[2025-06-03] MEDS ORDERED: MORPHINE 2 MG/ML SYR IV PRN (00:58)
[2025-06-03] MEDS ORDERED: BENZONATATE 100 MG CAP PO PRN (00:58)
[2025-06-03] MEDS: FUROSEMIDE 40 MG/4 ML VIAL IV SCH ×2 (01:00→04:56)
[2025-06-03] MEDS ORDERED: ONDANSETRON 4 MG/2 ML VIAL IV PRN (01:00)
[2025-06-03] MEDS ORDERED: ACETAMINOPHEN 500 MG TAB PO PRN (01:00)
[2025-06-03] MEDS ORDERED: FUROSEMIDE 40 MG/4 ML VIAL ONE (01:03)
[2025-06-03] MEDS: POTASSIUM 25 MEQ EFFERV TAB PO ONE ×2 (01:03→04:55)
--- NOTE | 2025-06-03 01:08 | P.HP ---
Certification for Inpatient Patient admitted to: Inpatient With expected LOS: >2 Midnights Patient will require the following post-hospital care: None Practitioner: I am a practitioner with admitting privileges, knowledge of patient current condition, hospital course, and medical plan of care. Services: Services provided to patient in accordance with Admission requirements found in Title 42 Section 412.3 of the Code of Federal Regulations Patient History Date of Service: 06/03/25 Reason for admission: Body swelling and shortness of breath History of Present Illness: 65-year-old male with past medical history of HTN, CAD status post CABG, history of combined systolic and diastolic CHF follows with cardiology Dr. Elizalde, previously on Lasix but not taking for over a year presented because of increasing body swelling, weight gain of about 12 pounds in the last 2 months as well as worsening shortness of breath since the last 4 days. Patient denies any chest pain or palpitation. Patient denies any excessive fluid intake. Patient presented to the ED this evening because of worsening shortness of breath. On arrival in the ED patient satting 96% on room air, vital signs are stable, EKG shows normal sinus rhythm with no ST segment changes. Laboratory workup shows normal creatinine potassium of 3.6, troponin normal. CBC was unremarkable, chest x-ray shows mild to moderate pulmonary edema. Patient has been admitted for combined CHF exacerbation Allergies fish derived Allergy (Severe, Verified 08/12/18 21:09) Shortness of breath iodine Allergy (Severe, Verified 08/12/18 21:09) Shortness of breath Shellfish Allergy (Severe, Verified 08/12/18 21:09) Shortness of breath seafood Allergy (Uncoded 08/12/18 21:09) Shortness of breath Home Medications: Atorvastatin Calcium [Lipitor] 1 tab PO DAILY 09/11/23 Clopidogrel Bisulfate [Plavix*] 1 tab PO DAILY 09/11/23 carvediloL [Coreg] 3.125 mg PO BID #60 tab 09/12/23 Aspirin 1 tab PO DAILY 06/03/25 Lisinopril [Zestril] 1 tab PO BID 06/03/25 - Past Medical/Surgical History Diabetic: Yes -: Hypertension -: Myocardial Infarction -: Chronic systolic congestive heart failure -: Diabetes mellitus type 2 -: CAD s/p three-vessel CABG 2013 -: Pericarditis -: Kidney Stones -: Gastric Cardiac Distress/Vasovagal -: Pericarditis -: Hyperlipidemia -: CHF -: Cholecystectomy -: CABG 2013 -: Heart stent 2019 Psychosocial/ Personal History: Patient is disabled, 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 - Family History Father -: Heart disease, GI disease, Diabetes, Kidney disease Mother -: Other (see notes) Notes: Alzheimers - Social History Smoking Status: Unknown if ever smoked Smoking therapy provided: No Patient receptive to therapy: No Alcohol use: No CD- Drugs: No Caffeine use: Yes Place of Residence: Home Review of Systems Cardiovascular: Paroxysmal Noc. Dyspnea, Edema Physical Examination - Physical Exam General: In no apparent distress, Oriented x3, Cooperative HEENT: Atraumatic, Normocephalic, PERRLA Neck: 2+ carotid pulse no bruit, JVD not distended Respiratory: Dull, Crackles/rales Cardiovascular: Normal pulses, Regular rate/rhythm, Normal S1 S2, No rubs, Edema Gastrointestinal: Normal bowel sounds, Soft and benign, Non-distended, No ascites, No tenderness Integumentary: No rashes, No breakdown Neurological: Normal speech, Normal strength at 5/5 x4 extr, Cranial nerves 3-12 intact - Studies Laboratory Data (last 24 hrs) 06/02/25 06/02/25 00:05 00:05 WBC 6.00 Hgb 14.9 Hct 44.9 Plt Count 134 L Sodium 141 Potassium 3.7 BUN 21 H Creatinine 1.27 Glucose 133 H Magnesium 1.5 L Assessment and Plan - Problems (Diagnosis) (1) Acute on chronic diastolic heart failure Current Visit: No Status: Acute (2) CHF exacerbation Current Visit: No Status: Acute Qualifiers: - Plan Impression History of acute diastolic CHF exacerbation History of CAD status post CABGstable Hypertension HLD Hypomagnesemia DM Plan Admit to observation Start IV Lasix 40 every 8 Replace potassium keep above 4 Low magnesium, will replete with 2 g Daily magnesium level May need repeat echo if no recent echo we will follow with cardiology Fluid restriction to less than 1.2 L/day follow intake and output monitoring For serial set of cardiac enzymes Placing telemetry for now Lovenox for DVT prophylaxis Full code DM - det controlled , low glucose with meds since many years now , follow [id number] Disposition possible hospital stay for 24 to 48 hours Total time spent in evaluation greater than 70 minutes - Advance Directives Does patient have a Living Will: No Does patient have a Durable POA for Healthcare: No Time Spent Managing Pts Care (In Minutes): 70
[2025-06-03] MEDS ORDERED: ALBUTEROL 2.5 MG/3 ML NEB SOL ONE (02:03)
[2025-06-03] MEDS: ALBUTEROL 2.5 MG/3 ML NEB SOL NEB PRN (02:10)
[2025-06-03] MEDS ORDERED: POTASSIUM 25 MEQ EFFERV TAB ONE (02:22)
--- NOTE | 2025-06-03 06:01 | RAD REPORT ---
EXAM: XR Chest, 1 View CLINICAL HISTORY: The patient is 65 years old and is Male; DYSPNEA TECHNIQUE: Frontal view of the chest. COMPARISON: No relevant prior studies available. FINDINGS: LUNGS: Right basilar opacity is noted. The lungs are otherwise well-inflated and clear. PLEURAL SPACE: Unremarkable. No pneumothorax. HEART: The cardiac silhouette is enlarged. MEDIASTINUM: Unremarkable. Normal mediastinal contour. BONES/JOINTS: Evidence of median sternotomy is noted. No acute fracture. UPPER ABDOMEN: Unremarkable as visualized. IMPRESSION: 1. Cardiomegaly. 2. Right lower lobe atelectasis/developing infiltrate. Electronically signed by: Ingrid Rosario MD 06/03/2025 01:42 AM CDT RP Due to temporary technical issues with the PACS/Ushi reporting system, reports are being gisell d by the in-house radiologist without review as a courtesy to ensure prompt reporting the interpreting radiologist is fully responsible for the content of the report. Transcribed Date/Time: 06/03/2025 6:01 AM
[2025-06-03] MEDS ORDERED: INSULIN LISPRO 100 UNIT/1 ML SQ SCH (07:30)
[2025-06-03] MEDS: ATORVASTATIN 40 MG TAB PO SCH (08:46)
[2025-06-03] MEDS: ASPIRIN EC 81 MG TAB PO SCH (08:46)
[2025-06-03] MEDS: CLOPIDOGREL 75 MG TABLET PO SCH (08:46)
[2025-06-03] MEDS: FAMOTIDINE 20 MG TAB PO SCH (08:46)
[2025-06-03] MEDS: ENOXAPARIN 40 MG/0.4 ML SQ SCH (08:49)
[2025-06-03 08:57] LABS: Magnesium 1.5 mg/dL (1.6-2.4)
[2025-06-03 08:59] LABS: Thyroid Stimulating Hormone 4.87 uIU/mL (0.358-3.740)
--- NOTE | 2025-06-03 09:50 | P.CNS ---
Date of Consult: 06/03/25 Chief Complaint: Body swelling and shortness of breath History of Present Illness: Patient with PMH of CAD s/p CABG x3 back in 2013, heart failure reduced EF, presented with worsening SOB, OLSON and BLE edema that has been going on for a week, denies chest pain, no palpitations, no syncope. Allergies fish derived Allergy (Severe, Verified 08/12/18 21:09) Shortness of breath iodine Allergy (Severe, Verified 08/12/18 21:09) Shortness of breath Shellfish Allergy (Severe, Verified 08/12/18 21:09) Shortness of breath seafood Allergy (Uncoded 08/12/18 21:09) Shortness of breath Home medications list reviewed: Yes Home Medications: Atorvastatin Calcium [Lipitor] 1 tab PO DAILY 09/11/23 Clopidogrel Bisulfate [Plavix*] 1 tab PO DAILY 09/11/23 carvediloL [Coreg] 3.125 mg PO BID #60 tab 09/12/23 Aspirin 1 tab PO DAILY 06/03/25 Lisinopril [Zestril] 1 tab PO BID 06/03/25 - Past Medical/Surgical History Diabetic: Yes -: Hypertension -: Myocardial Infarction -: Chronic systolic congestive heart failure -: Diabetes mellitus type 2 -: CAD s/p three-vessel CABG 2013 -: Pericarditis -: Kidney Stones -: Gastric Cardiac Distress/Vasovagal -: Pericarditis -: Hyperlipidemia -: CHF -: Cholecystectomy -: CABG 2013 -: Heart stent 2019 Psychosocial/ Personal History: Patient is disabled, 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 - Family History Father History Unknown: Yes Medical History: Heart disease, GI disease, Diabetes, Kidney disease Mother Medical History: Other (see notes) Notes: Alzheimers - Social History Smoking Status: Never smoker Alcohol use: No CD- Drugs: No Caffeine use: Yes Place of Residence: Home Review of Systems 10-point ROS is otherwise unremarkable Physical Examination Temp Pulse Resp BP Pulse Ox 97.5 F 77 19 171/99 H 97 06/03/25 08:00 06/03/25 08:47 06/03/25 08:00 06/03/25 08:47 06/03/25 08:00 General: Alert, In no apparent distress HEENT: Atraumatic, PERRLA, Mucous membr. moist/pink, EOMI, Sclerae nonicteric Neck: Supple, 2+ carotid pulse no bruit, No LAD, Without JVD or thyroid abnormality Respiratory: Clear to auscultation bilaterally, Normal air movement Cardiovascular: Regular rate/rhythm, Normal S1 S2, Edema Gastrointestinal: Normal bowel sounds, No tenderness Musculoskeletal: No tenderness Integumentary: No rashes Neurological: Normal gait, Normal speech, Normal tone, Normal affect Lymphatics: No axilla or inguinal lymphadenopathy Laboratory Data (last 24 hrs) 06/02/25 06/02/25 00:05 00:05 WBC 6.00 Hgb 14.9 Hct 44.9 Plt Count 134 L Sodium 141 Potassium 3.7 BUN 21 H Creatinine 1.27 Glucose 133 H Magnesium 1.5 L - Problems (1) Acute on chronic combined systolic (congestive) and diastolic (congestive) heart failure Current Visit: Yes Status: Acute Plan: Continue lasix 40 mg IV Q8 hours continue to monitor input and output and electrolytes continue coreg 3.125 mg po BID Continue Lisinopril 2.5 mg daily add Aldactone 25 mg daily (2) CAD (coronary artery disease) Current Visit: No Status: Chronic Plan: Patient with history of CABG x3 back in 2013 troponin negative, no chest pain continue ASA and Plavix outpatient follow up with cardiology for cardiac PET scan. Qualifiers: Coronary Disease-Associated Artery/Lesion type: bypass graft Associated angina: without angina (3) Essential hypertension Onset Date: 08/15/18 Current Visit: No Status: Chronic Plan: continue coreg 3.125 mg po BID continue lisinopril 2.5 mg daily add Aldactone 25 mg daily continue to monitor.
[2025-06-03] MEDS: Magnesium Sulfate 2gm IVPB 2 G/50 ML BAG IV ONE (11:30)
--- NOTE | 2025-06-03 14:05 | P.PN ---
Date of Service: 06/03/25 Patient seen and examined Patient states he feels better. Reports improvement in his lower extremity swelling. Patient seen and evaluated by cardiology. Dr. Deleon input appreciated. IV Lasix 40 mg every 8hrs Continue lisinopril. Add Aldactone Continue Coreg. Continue aspirin and Plavix for history of coronary artery disease. Monitor intake and output Fluid restriction Increase activity as tolerated.
--- NOTE | 2025-06-03 14:07 | P.PN ---
Date of Service: 06/03/25
[2025-06-03] MEDS ORDERED: ALBUTEROL 2.5 MG/3 ML NEB SOL NEB PRN (18:32)
[2025-06-04] MEDS ORDERED: Magnesium Sulfate 2gm IVPB 2 G/50 ML BAG IV ONE (00:58)
[2025-06-04 06:45] LABS: Absolute Lymphocytes (CBC) 1.5 K/uL (0.7-4.9); Hematocrit 42.2 % (39.6-49.0); Hemoglobin 14.1 g/dL (13.6-17.9); MCH 28.9 pg (27.0-35.0); MCHC 33.4 g/dL (32.0-36.0); MCV 86.5 fL (80-100); MPV 8.1 fL (7.6-11.3); Nucleated RBC Absolute Count 0.0 (0-0); Nucleated Red Blood Cells % 0.0 % (0-0); RBC Red Blood Cell Count 4.88 M/uL (4.33-5.43); White Blood Count 6.90 thou/uL (4.3-10.9)
[2025-06-04 07:06] LABS: ALT/SGPT 20.0 U/L (16-61); AST/SGOT 24.0 U/L (15-37); Albumin 3.2 g/dL (3.4-5.0); Albumin/Globulin Ratio 0.9 (1.1-1.8); Alkaline Phosphatase 86.0 U/L (45-117); Anion Gap 9.5 mEq/L (5.0-15.0); BUN Blood Urea Nitrogen 20.0 mg/dL (7-18); Globulin 3.4 g/dL (2.3-3.5); Glucose Level 91.0 mg/dL (74-106); Potassium 3.5 mEq/L (3.5-5.1); Troponin High Sensitivity 41.3 pg/mL (<58.9)
--- NOTE | 2025-06-04 07:18 | P.PN ---
Date of Service: 06/04/25 Subjective: feels better compared to yesterday lower extremity edema and breathing improving doesn't use oxygen at home no recent change in diet or habits lately ~8L UOP last 24 hours Physical Exam: GEN: Alert, oriented, NAD CV: Regular rate and rhythm, +lower extremity edema Pulm: Nonlabored respirations on 2L NC, clear bilaterally ABD: soft, nontender, nondistended Neuro: Normal speech, normal affect Problem List: Acute on chronic systolic and diastolic CHF (30-35% EF) Hyperbilirubinemia, unclear etiology Hx CAD s/p CABG x3 (2013) Hypertension Hyperlipidemia Acute on chronic systolic and diastolic CHF (30-35% EF) on admission, presents with worsening shortness of breath, edema. Denies chest pain. CXR (06/02): Cardiomegaly. Right lower lobe atelectasis/developing infiltrate Echo (06/04): 30-35% EF, moderate global hypokinesis, diastolic dysfunction, moderate TR, moderate pulmonary Hypertension Cardiology is following Gaye Jeffers as needed Decrease IV lasix to 40 mg BID from q8h wean O2 as tolerated. Doesn't use Home O2 Hyperbilirubinemia, unclear etiology T. bili 2.0, AST/ALT normal. unclear etiology, continue to monitor Hx CAD s/p CABG x3 (2013) Troponins negative, monitor on telemetry No chest pain Continue home asa 81mg, plavix f/u with cardio as outpatient for cardiac PET scan. Hypertension Hyperlipidemia continue home statin, coreg, lisinopril VTE: Lovenox Code: Full Dispo: Home 1-2 days Pending further diuresis Time Spent Managing Pts Care (In Minutes): 55
--- NOTE | 2025-06-04 11:06 | P.PN ---
Subjective Date of Service: 06/04/25 Chief Complaint: Body swelling and shortness of breath Subjective: No new changes, No C/O voiced, Tolerating diet, Ambulating, Improving Review of Systems 10-point ROS is otherwise unremarkable Physical Examination - Vital Signs Temperature: 98.2 F Blood Pressure: 124/74 Pulse: 70 Respirations: 12 Pulse Ox (%): 97 - Physical Exam General: Alert, In no apparent distress HEENT: Atraumatic, PERRLA, EOMI Neck: Supple, JVD not distended Respiratory: Clear to auscultation bilaterally, Normal air movement Cardiovascular: Regular rate/rhythm, Normal S1 S2, Edema Gastrointestinal: Normal bowel sounds, No tenderness Musculoskeletal: No tenderness Integumentary: No rashes Neurological: Normal speech, Normal tone, Normal affect Lymphatics: No axilla or inguinal lymphadenopathy - Studies Medications List Reviewed: Yes Assessment And Plan - Current Problems (Diagnosis) (1) Acute on chronic combined systolic (congestive) and diastolic (congestive) heart failure Current Visit: Yes Status: Acute Plan: lower done lasix to 40 mg IV Q12 hours continue to monitor input and output and electrolytes continue coreg 3.125 mg po BID Continue Lisinopril 2.5 mg daily add Aldactone 25 mg daily (2) CAD (coronary artery disease) Current Visit: No Status: Chronic Plan: Patient with history of CABG x3 back in 2013 troponin negative, no chest pain continue ASA and Plavix outpatient follow up with cardiology for cardiac PET scan. Qualifiers: Coronary Disease-Associated Artery/Lesion type: bypass graft Associated angina: without angina (3) Essential hypertension Onset Date: 08/15/18 Current Visit: No Status: Chronic Plan: continue coreg 3.125 mg po BID continue lisinopril 2.5 mg daily add Aldactone 25 mg daily continue to monitor.
--- NOTE | 2025-06-04 12:44 | ECHO ---
HEIGHT: 5 ft 6 in WEIGHT: 210 lb 0 oz DATE OF STUDY: 06/04/[address]: Moises Rogers MD 2-DIMENSIONAL: YES M.MODE: YES DOPPLER: YES COLOR FLOW: YES TDS: PORTABLE: YES DEFINITY: BUBBLE STUDY: DIAGNOSIS: CONGESTIVE HEART FAILURE, EVALUATE FUNCTION VALVES CARDIAC HISTORY: CATHERIZATION: YES SURGERY: YES PROSTHETIC VALVE: NO PACEMAKER: NO MEASUREMENTS (cm) DIASTOLIC (NORMALS) SYSTOLIC (NORMALS) IVSd 1.1 (0.6-1.2) LA Diam 4.3 (1.9-4.0) LVEF 30-35% LVIDd 4.1 (3.5-5.7) LVIDs 3.7 (2.0-3.5) %FS 11% LVPWd 1.0 (0.6-1.2) Ao Diam 3.2 (2.0-3.7) 2 DIMENSIONAL ASSESSMENT: RIGHT ATRIUM: NORMAL LEFT ATRIUM: NORMAL RIGHT VENTRICLE: NORMAL LEFT VENTRICLE: NORMAL TRICUSPID VALVE: MODERATE TRICUSPID REGURGITATION MITRAL VALVE: MILD MITRAL REGURGITATION PULMONIC VALVE: NORMAL AORTIC VALVE: NORMAL PERICARDIAL EFFUSION: NONE AORTIC ROOT: NORMAL LEFT VENTRICULAR WALL MOTION: MODERATE GLOBAL HYPOKINESIS DOPPLER/COLOR FLOW: DIASTOLIC DYSFUNCTION COMMENTS: 1. MODERATELY REDUCED LEFT VENTRICULAR SYSTOLIC FUNCTION, EJECTION FRACTION 30-35%, MODERATE GLOBAL HYPOKINESIS 2. DIASTOLIC DYSFUNCTION 3. MODERATE TRICUSPID REGURGITATION, MODERATE PULMONARY HYPERTENSION (RIGHT VENTRICULAR SYSTOLIC PRESSURE 30-35 mmHg) 4. ELEVATED FILLING PRESSURE (RIGHT ATRIAL PRESSURE 15-20 mmHg) TECHNOLOGIST: [facility]
[2025-06-04] MEDS: FUROSEMIDE 40 MG/4 ML VIAL IV SCH (21:40)
[2025-06-05] MEDS: MORPHINE 2 MG/ML SYR IV PRN (05:26)
[2025-06-05 06:28] LABS: Anion Gap 7.6 mEq/L (5.0-15.0); BUN Blood Urea Nitrogen 22.0 mg/dL (7-18); Glucose Level 91.0 mg/dL (74-106); Magnesium 1.6 mg/dL (1.6-2.4); Potassium 3.6 mEq/L (3.5-5.1)
[2025-06-05] MEDS: FUROSEMIDE 40 MG/4 ML VIAL IV SCH (08:51)
--- NOTE | 2025-06-05 10:02 | P.PN ---
Date of Service: 06/05/25 Subjective: breathing feels slightly easier today feels lower extremity swelling is ~same maybe slightly worse otherwise no new issues Physical Exam: GEN: Alert, oriented, NAD CV: Regular rate and rhythm, +lower extremity edema Pulm: Nonlabored respirations on 2L NC, clear bilaterally ABD: soft, nontender, nondistended Neuro: Normal speech, normal affect Problem List: Acute on chronic systolic and diastolic CHF (30-35% EF) DEION Hyperbilirubinemia, unclear etiology Hx CAD s/p CABG x3 (2013) Hypertension Hyperlipidemia Acute on chronic systolic and diastolic CHF (30-35% EF) on admission, presents with worsening shortness of breath, edema. Denies chest pain. CXR (06/02): Cardiomegaly. Right lower lobe atelectasis/developing infiltrate Echo (06/04): 30-35% EF, moderate global hypokinesis, diastolic dysfunction, moderate TR, moderate pulmonary Hypertension Cardiology is following Guido Jefferss as needed IV lasix decreased to daily given worsening renal function wean O2 as tolerated. Doesn't use Home O2 DEION Continue to monitor renal function, electrolytes DEION likely secondary to diuretics - urinated 8L in 24hrs IV Lasix decreased to daily given worsening renal function Hyperbilirubinemia, unclear etiology T. bili 2.0, AST/ALT normal. Unclear etiology, continue to monitor Hx CAD s/p CABG x3 (2013) Troponins negative, monitor on telemetry No chest pain Continue home asa 81mg, plavix f/u with cardio as outpatient for cardiac PET scan. Hypertension Hyperlipidemia continue home statin, coreg, lisinopril VTE: Lovenox Code: Full Dispo: Home 1-2 days Pending further diuresis, DEION resolves, off oxygen Time Spent Managing Pts Care (In Minutes): 45
--- NOTE | 2025-06-05 10:58 | P.PN ---
Subjective Date of Service: 06/05/25 Chief Complaint: Body swelling and shortness of breath Subjective: No new changes, No C/O voiced, Tolerating diet, Ambulating, Improving Review of Systems 10-point ROS is otherwise unremarkable Physical Examination - Vital Signs Temperature: 97.7 F Blood Pressure: 127/76 Pulse: 68 Respirations: 16 Pulse Ox (%): 98 - Physical Exam General: Alert, In no apparent distress HEENT: Atraumatic, PERRLA, EOMI Neck: Supple, JVD not distended Respiratory: Clear to auscultation bilaterally, Normal air movement Cardiovascular: Regular rate/rhythm, Normal S1 S2 Gastrointestinal: Normal bowel sounds, No tenderness Musculoskeletal: No tenderness Integumentary: No rashes Neurological: Normal speech, Normal tone, Normal affect Lymphatics: No axilla or inguinal lymphadenopathy - Studies Medications List Reviewed: Yes Assessment And Plan - Current Problems (Diagnosis) (1) Acute on chronic combined systolic (congestive) and diastolic (congestive) heart failure Current Visit: Yes Status: Acute Plan: lasix lowered down to 40 mg IV daily due to worsening kidney function continue to monitor input and output and electrolytes continue coreg 3.125 mg po BID Continue Lisinopril 2.5 mg daily (2) CAD (coronary artery disease) Current Visit: No Status: Chronic Plan: Patient with history of CABG x3 back in 2013, only patent ZHOU-LAD and stent of LCX, moderate RCA disease troponin negative, no chest pain continue ASA and Plavix outpatient follow up with cardiology for cardiac PET scan. Qualifiers: Coronary Disease-Associated Artery/Lesion type: bypass graft Associated angina: without angina (3) Essential hypertension Onset Date: 08/15/18 Current Visit: No Status: Chronic Plan: continue coreg 3.125 mg po BID continue lisinopril 2.5 mg daily add Aldactone 25 mg daily continue to monitor.
[2025-06-05] MEDS: ONDANSETRON 4 MG/2 ML VIAL IV PRN (15:34)
[2025-06-06 07:24] LABS: Hematocrit 46.4 % (39.6-49.0); Hemoglobin 15.3 g/dL (13.6-17.9); MCH 28.8 pg (27.0-35.0); MCHC 33.0 g/dL (32.0-36.0); MCV 87.3 fL (80-100); MPV 8.3 fL (7.6-11.3); RBC Red Blood Cell Count 5.31 M/uL (4.33-5.43); White Blood Count 5.70 thou/uL (4.3-10.9)
--- NOTE | 2025-06-06 07:33 | RAD REPORT ---
Procedure: Chest Single View HISTORY: Cough COMPARISON: June 03, 2025 FINDINGS: The lungs appear clear of acute infiltrate. Right basilar opacity has resolved. Upper lobe vessels are prominent indicative of pulmonary venous hypertension No significant pleural effusion noted. The heart is mildly to moderately enlarged. Post surgical changes involve the chest. .
[2025-06-06 07:38] LABS: Albumin 3.5 g/dL (3.4-5.0); Anion Gap 6.9 mEq/L (5.0-15.0); BUN Blood Urea Nitrogen 25.0 mg/dL (7-18); Glucose Level 94.0 mg/dL (74-106); NT PRO-BNP 1015.0 pg/mL (<125); Potassium 3.9 mEq/L (3.5-5.1)
--- NOTE | 2025-06-06 10:48 | P.PN ---
Date of Service: 06/06/25 Subjective: Feeling better today Breathing more comfortably on room air. Off oxygen since overnight / this mor kalin Ambulating around the floor without issues. Denies SOB after ambulation. Lower extremity edema improving Afebrile Physical Exam: GEN: Alert, oriented, NAD CV: Regular rate and rhythm, 2+lower extremity edema below knees Pulm: Nonlabored respirations on room air, clear bilaterally ABD: soft, nontender, nondistended Neuro: Normal speech, normal affect Problem List: Acute on chronic systolic and diastolic CHF (30-35% EF) DEION Hyperbilirubinemia, unclear etiology Hx CAD s/p CABG x3 (2013) Hypertension Hyperlipidemia Acute on chronic systolic and diastolic CHF (30-35% EF) on admission, presents with worsening shortness of breath, edema. Denies chest pain. CXR (06/02): Cardiomegaly. Right lower lobe atelectasis/developing infiltrate Echo (06/04): 30-35% EF, moderate global hypokinesis, diastolic dysfunction, moderate TR, moderate pulmonary Hypertension Cardiology is following Gaye Jeffers as needed Off oxygen since overnight/this morning. Breathing more comfortably on room air Repeat chest xray showed resolution of Right basilar opacity. BNP improved compared to admission DC IV Lasix - transition to 40mg PO lasix on discharge DEION Continue to monitor renal function, electrolytes DEION likely secondary to fast diuresis and ACEI - urinated 8L in 24hrs DC lisinopril as it could be further contributing to DEION DC IV lasix as above repeat labs in AM Hyperbilirubinemia, unclear etiology T. bili 2.0, AST/ALT normal. Unclear etiology, continue to monitor Hx CAD s/p CABG x3 (2013) Troponins negative, monitor on telemetry No chest pain Continue home asa 81mg, plavix f/u with cardio as outpatient for cardiac PET scan. Hypertension Hyperlipidemia continue home statin, coreg DC lisinopril - could be contributing to DEION VTE: Lovenox Code: Full Dispo: Home 1 day Pending further diuresis, DEION resolves, off oxygen Time Spent Managing Pts Care (In Minutes): 45
--- NOTE | 2025-06-06 12:20 | P.PN ---
Subjective Date of Service: 06/06/25 Chief Complaint: Body swelling and shortness of breath Subjective: No new changes, No C/O voiced, Tolerating diet, Ambulating, Improving Review of Systems 10-point ROS is otherwise unremarkable Physical Examination - Vital Signs Temperature: 97.8 F Blood Pressure: 115/93 Pulse: 71 Respirations: 18 Pulse Ox (%): 96 - Physical Exam General: Alert, In no apparent distress HEENT: Atraumatic, PERRLA, EOMI Neck: Supple, JVD not distended Respiratory: Clear to auscultation bilaterally, Normal air movement Cardiovascular: Regular rate/rhythm, Normal S1 S2 Gastrointestinal: Normal bowel sounds, No tenderness Musculoskeletal: No tenderness Integumentary: No rashes Neurological: Normal speech, Normal tone, Normal affect Lymphatics: No axilla or inguinal lymphadenopathy - Studies Medications List Reviewed: Yes Assessment And Plan - Current Problems (Diagnosis) (1) Acute on chronic combined systolic (congestive) and diastolic (congestive) heart failure Current Visit: Yes Status: Acute Plan: D/C IV lasix lasix 40 mg po daily on discharge. continue to monitor input and output and electrolytes continue coreg 3.125 mg po BID holding lisinopril due to DEION, outpatient follow up with [facility] (2) CAD (coronary artery disease) Current Visit: No Status: Chronic Plan: Patient with history of CABG x3 back in 2013, only patent ZHOU-LAD and stent of LCX, moderate RCA disease troponin negative, no chest pain continue ASA and Plavix outpatient follow up with cardiology for cardiac PET scan. Qualifiers: Coronary Disease-Associated Artery/Lesion type: bypass graft Associated angina: without angina (3) Essential hypertension Onset Date: 08/15/18 Current Visit: No Status: Chronic Plan: continue coreg 3.125 mg po BID continue to monitor.
[2025-06-06 19:05] VITALS: BMI 37.1
[2025-06-06 20:25] VITALS: O2SAT 98
[2025-06-07 05:39] LABS: Albumin 3.3 g/dL (3.4-5.0); Anion Gap 8.5 mEq/L (5.0-15.0); BUN Blood Urea Nitrogen 25.0 mg/dL (7-18); Glucose Level 101.0 mg/dL (74-106); Magnesium 1.9 mg/dL (1.6-2.4); Potassium 3.5 mEq/L (3.5-5.1)
[2025-06-07 08:54] VITALS: BP 137/85; TEMP 97.7
--- NOTE | 2025-06-07 09:29 | P.DS ---
Admission Date: 06/03/25 Discharge Date: 06/07/25 Disposition: ROUTINE DISCHARGE Discharge Condition: GOOD Reason for Admission: Body swelling and shortness of breath Consultations: Cardiology - Dr. Deleon Brief History of Present Illness: 65yo M, PMH: HTN, CAD status post CABG, history of combined systolic and diastolic CHF follows with cardiology Dr. Elizalde, previously on Lasix but not taking for over a year Patient presented because of increasing body swelling, weight gain of about 12 pounds in the last 2 months as well as worsening shortness of breath since the last 4 days. Patient denies any chest pain or palpitation. Patient denies any excessive fluid intake. Patient presented to the ED this evening because of worsening shortness of breath. On arrival in the ED patient satting 96% on room air, vital signs are stable, EKG shows normal sinus rhythm with no ST segment changes. Laboratory workup shows normal creatinine potassium of 3.6, troponin normal. CBC was unremarkable, chest x-ray shows mild to moderate pulmonary edema. Patient has been admitted for combined CHF exacerbation Hospital Course: Problem List: Acute on chronic systolic and diastolic CHF (30-35% EF) DEION, improving Hx CAD s/p CABG x3 (2013) Hypertension Hyperlipidemia Physician discharge instructions: Patient presented with worsening shortness of breath, lower extremity edema secondary to acute on chronic combined systolic and diastolic CHF. Chest xray on admission showed right basilar opacity likely edema/atelectasis vs developing infiltrate. No evidence of ongoing infection or infectious symptoms. Echocardiogram done 06/04/25 noted 30-35% EF, moderate global hypokinesis, diastolic dysfunction, moderate tricuspid regurgitation, moderate pulmonary hypertension. Patient received IV lasix while hospitalized and had improvement of his symptoms. Lower extremity edema and breathing improved with diuretics. Patient has been off oxygen for over 24 hours. Repeat chest xray done 06/06 showed resolution of right opacities, lungs clear of acute infiltrate. Given his history of CAD/CABG, Dr. Deleon (cardiology) recommended outpatient cardiac follow up in the near future for cardiac PET scan. Patient was feeling better, breathing more comfortably on room air, lower extremity edema improved and was deemed stable for discharge. Will send new prescription for lasix 40 mg daily. Check weight around the same time each day. Keep daily log of readings to take to follow up appointments for further adjustments of medications. If you notice a gain of 2 lbs or more within 24 hours, take an extra dose of lasix that day. Follow up with cardiology in next 2-4 weeks with weight and blood pressure log for further management. Recommending continuing to hold lisinopril over the next 2-3 day. Check blood pressure around the same time each day. Keep daily log of readings to take to follow up appointments for further adjustments. Okay to restart home lisinopril once blood pressure is consistently greater than 110 systolic for more than 48 hours. Renal function was noted to worsen ~24 hours after admission secondary to fast diuresis and LAURE inhibitor which quickly improved after decreasing lasix dose and stopping his home lisinopril. Repeat blood work in 1 week to ensure continued improvement / stability in renal function. Labs on admission -> peak -> discharge Creatinine: 1.27 -> 1.76 -> 1.48 Medications: Lasix 40 mg daily Hold Lisinopril for now as noted above continue other home meds as previously prescribed Follow up: PCP 3-5 days Cardiology in 2-4 weeks Please call to schedule / confirm appointments Physical Exam: GEN: Alert, oriented, NAD CV: Regular rate and rhythm, trace lower extremity edema Pulm: Nonlabored respirations on room air, clear bilaterally ABD: soft, nontender, nondistended Neuro: Normal speech, normal affect Vital Signs/Physical Exam: Temp Pulse Resp BP Pulse Ox 97.7 F 76 20 137/85 95 06/07/25 08:00 06/07/25 08:00 06/07/25 08:00 06/07/25 08:00 06/07/25 08:00 Laboratory Data at Discharge: WBC 5.70 thou/uL (4.3-10.9) 06/06/25 07:08 Hgb 15.3 g/dL (13.6-17.9) 06/06/25 07:08 Hct 46.4 % (39.6-49.0) 06/06/25 07:08 Plt Count 138 thou/uL (152-406) L 06/06/25 07:08 Sodium 137 mEq/L (136-145) 06/07/25 05:10 Potassium 3.5 mEq/L (3.5-5.1) 06/07/25 05:10 BUN 25 mg/dL (7-18) H 06/07/25 05:10 Creatinine 1.48 mg/dL (0.70-1.30) H 06/07/25 05:10 Glucose 101 mg/dL (74-106) 06/07/25 05:10 Phosphorus 3.5 mg/dL (2.5-4.9) 06/07/25 05:10 Magnesium 1.9 mg/dL (1.6-2.4) 06/07/25 05:10 Total Bilirubin 2.0 mg/dL (0.2-1.0) H 06/04/25 06:22 AST 24 U/L (15-37) 06/04/25 06:22 ALT 20 U/L (16-61) 06/04/25 06:22 Alkaline Phosphatase 86 U/L (45-117) 06/04/25 06:22 Home Medications: Atorvastatin Calcium [Lipitor] 1 tab PO DAILY 09/11/23 Clopidogrel Bisulfate [Plavix*] 1 tab PO DAILY 09/11/23 carvediloL [Coreg*] 3.125 mg PO BID #60 tab 09/12/23 Aspirin 1 tab PO DAILY 06/03/25 Lisinopril [Zestril] 1 tab PO BID 06/03/25 Furosemide 40 mg PO DAILY 30 Days #30 tab 06/07/25 New Medications: Furosemide 40 mg PO DAILY 30 Days #30 tab Physician Discharge Instructions: Physician discharge instructions: Patient presented with worsening shortness of breath, lower extremity edema secondary to acute on chronic combined systolic and diastolic CHF. Chest xray on admission showed right basilar opacity likely edema/atelectasis vs developing infiltrate. No evidence of ongoing infection or infectious symptoms. Echocardiogram done 06/04/25 noted 30-35% EF, moderate global hypokinesis, diastolic dysfunction, moderate tricuspid regurgitation, moderate pulmonary hypertension. Patient received IV lasix while hospitalized and had improvement of his symptoms. Lower extremity edema and breathing improved with diuretics. Patient has been off oxygen for over 24 hours. Repeat chest xray done 06/06 showed resolution of right opacities, lungs clear of acute infiltrate. Given his history of CAD/CABG, Dr. Deleon (cardiology) recommended outpatient cardiac follow up in the near future for cardiac PET scan. Patient was feeling better, breathing more comfortably on room air, lower extremity edema improved and was deemed stable for discharge. Will send new prescription for lasix 40 mg daily. Check weight around the same time each day. Keep daily log of readings to take to follow up appointments for further adjustments of medications. If you notice a gain of 2 lbs or more within 24 hours, take an extra dose of lasix that day. Follow up with cardiology in next 2-4 weeks with weight and blood pressure log for further management. Recommending continuing to hold lisinopril over the next 2-3 day. Check blood pressure around the same time each day. Keep daily log of readings to take to follow up appointments for further adjustments. Okay to restart home lisinopril once blood pressure is consistently greater than 110 systolic for more than 48 hours. Renal function was noted to worsen ~24 hours after admission secondary to fast diuresis and LAURE inhibitor which quickly improved after decreasing lasix dose and stopping his home lisinopril. Repeat blood work in 1 week to ensure continued improvement / stability in renal function. Labs on admission -> peak -> discharge Creatinine: 1.27 -> 1.76 -> 1.48 Medications: Lasix 40 mg daily Hold Lisinopril for now as noted above continue other home meds as previously prescribed Follow up: PCP 3-5 days Cardiology in 2-4 weeks Please call to schedule / confirm appointments Followup: Joce Deleon MD [ACTIVE - CAN ADMIT] - 1-2 Weeks NONE,NONE [Primary Care Provider] - Time spent managing pt's care (in minutes): 45
== END 2025-06-07 09:51 | disposition home or self-care (01) | DRG 291 ==
LOC: ER 23:50 → ERHOLD 06-03 01:00 → 2ND 06-03 01:56
PROVIDERS: ADMIT Internal Medicine; ATTEND Hospitalist
DX: I11.0 Hypertensive heart disease with heart failure (principal); I50.43 Acute on chronic combined systolic (congestive) and diastolic (congestive) heart failure; I25.810 Atherosclerosis of coronary artery bypass graft(s) without angina pectoris; N17.9 Acute kidney failure, unspecified; E11.9 Type 2 diabetes mellitus without complications; E78.5 Hyperlipidemia, unspecified; E80.6 Other disorders of bilirubin metabolism; I27.20 Pulmonary hypertension, unspecified; I07.1 Rheumatic tricuspid insufficiency; E83.42 Hypomagnesemia; I25.2 Old myocardial infarction; T50.1X6A Underdosing of loop [high-ceiling] diuretics, initial encounter; Z95.1 Presence of aortocoronary bypass graft; Z79.82 Long term (current) use of aspirin; Z79.02 Long term (current) use of antithrombotics/antiplatelets; Z90.49 Acquired absence of other specified parts of digestive tract; Z91.013 Allergy to seafood; Z79.899 Other long term (current) drug therapy; Z91.148 Patient's other noncompliance with medication regimen for other reason
CPT/HCPCS: 36415; 71045; 80048; 80053; 80069; 82947; 83036; 83735; 83880; 84439; 84443; 84484; 85025; 85027; 93005; 93306; 94640; 94760; 96374; 97116; 97161; 99285; J1650; J1938; J2270; J2405; J3475; J7613